=== PATIENT | female | born 1960 | race Caucasian/White ===

== ENCOUNTER 2017-06-09 14:44 | Inpatient (IN) | payer SELFPAY ==
[~2017-06-09] VITALS: Ht 160 cm; Wt 51.9 kg
[2017-06-09 15:01] VITALS: O2SAT 97
[2017-06-09 15:09] LABS: BASOPHIL % 0.2 % (0.0-2.0); EOSINOPHIL % 0.1 % (0.0-4.0); HEMATOCRIT 35.9 % (35.0-46.0); HEMO FLAGS DIFF FINAL; LYMPH % 2.6 % (9.0-44.0); LYMPHOCYTE # 0.5 TH/MM3 (1.0-4.8); MEAN CELL VOLUME 104.7 FL (80.0-100.0); MEAN CORPUSCULAR HEMOGLOBIN 34.8 PG (27.0-34.0); MEAN CORPUSCULAR HGB CONC 33.2 % (32.0-36.0); NEUT % 91.1 % (16.0-70.0); PLATELET COUNT 441 TH/MM3 (150-450); RED BLOOD COUNT 3.43 MIL/MM3 (4.00-5.30); RED CELL DISTRIBUTION WIDTH 14.4 % (11.6-17.2); WHITE BLOOD COUNT 17.5 TH/MM3 (4.0-11.0)
--- NOTE | 2017-06-09 15:13 | PD ---
Physical Exam Date Seen by Provider: Jun 09, 2017 Time Seen by Provider: 15:13 Data Data Last Documented VS Vital Signs Date Time Temp Pulse Resp B/P Pulse Ox O2 Delivery O2 Flow Rate FiO2 06/09/17 15:01 97 Nasal Cannula 3.00 Orders Ed Poc Ultrasound (06/09/17 ) I-Stat Profile (06/09/17 14:54) I-Stat Creatinine (06/09/17 14:54) Complete Blood Count With Diff (06/09/17 14:54) Prothrombin Time / Inr (Pt) (06/09/17 14:54) Act Partial Throm Time (Ptt) (06/09/17 14:54) Type And Screen (06/09/17 14:54) Chest, Single Ap (06/09/17 14:54) Pelvis, Ap Only (Routine) (06/09/17 14:54) Ct Brain W/O Iv Contrast(Rout) (06/09/17 14:54) Ct Cerv Spine W/O Contrast (06/09/17 14:54) Ct Facial Bones W/O Iv Cont (06/09/17 14:54) Iv Access Insert/Monitor (06/09/17 14:54) Ecg Monitoring (06/09/17 14:54) Oximetry (06/09/17 14:54) Oxygen Administration (06/09/17 14:54) Creatine Kinase (Cpk) (06/09/17 14:54) Trauma Office Use Only (06/09/17 15:02) Lidocai-Epi 1%-1:100,000 Inj (Xylocaine- (06/09/17 15:15) Admit Order (Ed Use Only) (06/09/17 15:12) Ct Abd/Pel W/O Iv Contrast (06/09/17 14:54) Ct Thorax/ Chest Wo Iv Contras (06/09/17 14:54) CKMB (06/09/17 14:47) CKMB% (06/09/17 14:47) Labs Laboratory Tests Test 06/09/17 14:47 White Blood Count 17.5 TH/MM3 Red Blood Count 3.43 MIL/MM3 Hemoglobin 11.9 GM/DL Bedside Hemoglobin 12.2 G/DL Hematocrit 35.9 % Bedside Hematocrit 36.0 % Mean Corpuscular Volume 104.7 FL Mean Corpuscular Hemoglobin 34.8 PG Mean Corpuscular Hemoglobin 33.2 % Concent Red Cell Distribution Width 14.4 % Platelet Count 441 TH/MM3 Mean Platelet Volume 7.6 FL Neutrophils (%) (Auto) 91.1 % Lymphocytes (%) (Auto) 2.6 % Monocytes (%) (Auto) 6.0 % Eosinophils (%) (Auto) 0.1 % Basophils (%) (Auto) 0.2 % Neutrophils # (Auto) 16.0 TH/MM3 Lymphocytes # (Auto) 0.5 TH/MM3 Monocytes # (Auto) 1.0 TH/MM3 Eosinophils # (Auto) 0.0 TH/MM3 Basophils # (Auto) 0.0 TH/MM3 CBC Comment DIFF FINAL Differential Comment Prothrombin Time 10.8 SEC Prothromb Time International 1.0 RATIO Ratio Activated Partial 22.8 SEC Thromboplast Time Bedside Sodium 138 MMOL/L Bedside Potassium 6.2 MMOL/L Bedside Chloride 105 MMOL/L Bedside Blood Urea Nitrogen 20 MG/DL Bedside Creatinine 1.9 MG/DL Bedside Glucose 164 MG/DL Total Creatine Kinase 1509 U/L Blood Type O POSITIVE Antibody Screen NEGATIVE MDM Supervised Visit with LEONEL: No Narrative Course I was asked to evaluate this patient's multiple lacerations. The patient was initially seen by Dr. Nava. Please see her note for full H& P. On my exam the patient has a 6 cm laceration in the midline of the forehead which travels to the bridge of the nose. There is a subcentimeter skin bridge and a second laceration approximately 4 cm long. There is a subcentimeter laceration on the left forehead, 2 cm laceration over left eyebrow, centimeter laceration on the chin. Additionally there is a V-shaped 7 cm laceration lateral aspect of the left ankle.. Laceration repair was performed. Please see my procedure note for details. Dr. Nava retains care of this patient. Please see her note for disposition. Procedures Procedure Narrative LACERATION LOCATION: Left forehead LENGTH: Subcentimeter NUMBER OF STITCHES/ASHLEY: 1 REPAIR: The area of the laceration was prepped with Betadine and sterilely draped. The laceration was infiltrated with 1% lidocaine. The wound was copiously irrigated and explored without evidence of foreign body, tendon injury or neurovascular injury. The wound was closed using 4-0 Prolene single. This was a - layer repair. A sterile dressing was applied. The patient was advised to keep the dressing clean and dry. Patient tolerated the procedure well. LACERATION LOCATION: Left eyebrow LENGTH: 2 cm NUMBER OF STITCHES/ASHLEY: 2 REPAIR: The area of the laceration was prepped with Betadine and sterilely draped. The laceration was infiltrated with 1% lidocaine. The wound was copiously irrigated and explored without evidence of foreign body, tendon injury or neurovascular injury. The wound was closed using 4-0 Prolene. This was a single layer repair. A sterile dressing was applied. The patient was advised to keep the dressing clean and dry. Patient tolerated the procedure well. LACERATION LOCATION: Midline of the forehead LENGTH: 6 cm NUMBER OF STITCHES/ASHLEY: 2 internal, 8 external REPAIR: The area of the laceration was prepped with Betadine and sterilely draped. The laceration was infiltrated with 1% lidocaine. The wound was copiously irrigated and explored without evidence of foreign body, tendon injury or neurovascular injury. The wound was closed using 3-0 Vicryl and 4-0 Prolene. This was a 2 layer repair. A sterile dressing was applied. The patient was advised to keep the dressing clean and dry. Patient tolerated the procedure well. LACERATION LOCATION: Midline bridge of the nose LENGTH: 6 cm, stellate NUMBER OF STITCHES/ASHLEY: 2 internal 9 external REPAIR: The area of the laceration was prepped with Betadine and sterilely draped. The laceration was infiltrated with 1% lidocaine with epinephrine. The wound was copiously irrigated and explored without evidence of foreign body, tendon injury or neurovascular injury. The wound was closed using 3-0 Vicryl and 4-0 Prolene. This was a 2 layer repair. A sterile dressing was applied. The patient was advised to keep the dressing clean and dry. Patient tolerated the procedure well. LACERATION LOCATION: Left lateral ankle LENGTH: 7 cm V-shaped NUMBER OF STITCHES/ASHLEY: 8 REPAIR: The area of the laceration was prepped with Betadine and sterilely draped. The laceration was infiltrated with 1% lidocaine. The wound was copiously irrigated and explored without evidence of foreign body, tendon injury or neurovascular injury. The wound was closed using surgical ashley. This was a single layer repair. A sterile dressing was applied. The patient was advised to keep the dressing clean and dry. Patient tolerated the procedure well. Erika Herbert Jun 09, 2017 15:13
[2017-06-09] MEDS ORDERED: LIDOCAINE 1%/EPINEPHrine 1:100,000 SOLN 20 ML VIAL INFIL ONE (15:15)
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
[2017-06-09] MEDS ORDERED: MORPHINE SULFATE 8 MG/ML INJ ONE (15:16)
[2017-06-09] MEDS ORDERED: ONDANSETRON HCL 4 MG/2 ML VIAL ONE (15:16)
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
[2017-06-09 15:26] LABS: I-STAT POTASSIUM 6.2 MMOL/L (3.5-4.9)
[2017-06-09 15:45] LABS: APTT (PATIENT) 22.8 SEC (24.3-30.1); PROTHROMBIN TIME - PATIENT 10.8 SEC (9.8-11.6)
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
[2017-06-09 16:00] VITALS: PULSE 103
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
[2017-06-09 16:11] LABS: CKMB 7.9 NG/ML (0.5-3.6)
[2017-06-09 16:15] VITALS: BP 175/111; PULSE 104; RESP 25; TEMP 99; O2SAT 98
[2017-06-09] MEDS ORDERED: Post-op Orders (for Pharmacy) MISC XX ONE (16:15)
[2017-06-09] MEDS ORDERED: NALOXONE HCL 0.4 MG/ML AMP IV PRN (16:15)
[2017-06-09] MEDS ORDERED: SODIUM CHLORIDE 0.9% FLUSH 10 ML FLUSH IV FLUSH PRN (16:15)
[2017-06-09] MEDS ORDERED: oxyCODONE/ACETAMINOPHEN 5 MG/325 MG TAB PO PRN (16:15)
[2017-06-09] MEDS ORDERED: ONDANSETRON HCL 4 MG/2 ML VIAL IV PRN (16:15)
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
[2017-06-09] MEDS: PANTOPRAZOLE SOD 40 MG DELAYED RELEASE TAB PO SCH (17:00)
[2017-06-09] MEDS: MORPHINE SULFATE 4 MG/ML INJ IV PRN (17:20)
[2017-06-09 18:00] VITALS: PULSE 99
[2017-06-09] MEDS: SODIUM CHLOR 0.9% 1000 ML INJ 1,000 ML IV SCH (18:12)
[2017-06-09] MEDS: METOPROLOL TARTRATE 5 MG/5 ML VIAL IV PUSH SCH (18:12)
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
[2017-06-09 20:00] VITALS: BP 149/90; PULSE 84; RESP 12; TEMP 99.3; O2SAT 98
[2017-06-09] MEDS: levETIRAcetam 500 MG TAB PO SCH (20:35)
[2017-06-09] MEDS: SODIUM CHLORIDE 0.9% FLUSH 10 ML FLUSH IV FLUSH SCH (20:36)
[2017-06-09] MEDS ORDERED: DOCUSATE SODIUM 100 MG CAP PO SCH (21:00)
[2017-06-09 22:00] VITALS: PULSE 75
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
[2017-06-10] VITALS (11 sets, daily range): BP systolic 118–184; BP diastolic 64–97; PULSE 66–81; RESP 9–22; TEMP 97–99.3; O2SAT 96–100
[2017-06-10] MEDS: METOPROLOL TARTRATE 5 MG/5 ML VIAL IV PUSH SCH ×2 (00:09→05:48)
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
[2017-06-10] MEDS: SODIUM CHLOR 0.9% 1000 ML INJ 1,000 ML IV SCH ×3 (04:39→20:01)
[2017-06-10 04:43] LABS: AUTOMATED NEUTROPHIL # 7.1 TH/MM3 (1.8-7.7); BASOPHIL # 0.1 TH/MM3 (0-0.2); BASOPHIL % 0.8 % (0.0-2.0); HEMATOCRIT 25.8 % (35.0-46.0); HEMO FLAGS DIFF FINAL; LYMPH % 7.8 % (9.0-44.0); LYMPHOCYTE # 0.7 TH/MM3 (1.0-4.8); MEAN CELL VOLUME 105.6 FL (80.0-100.0); MEAN CORPUSCULAR HEMOGLOBIN 36.5 PG (27.0-34.0); MEAN CORPUSCULAR HGB CONC 34.6 % (32.0-36.0); NEUT % 84.4 % (16.0-70.0); PLATELET COUNT 248 TH/MM3 (150-450); RED BLOOD COUNT 2.45 MIL/MM3 (4.00-5.30); RED CELL DISTRIBUTION WIDTH 13.9 % (11.6-17.2); WHITE BLOOD COUNT 8.4 TH/MM3 (4.0-11.0)
[2017-06-10] MEDS: MORPHINE SULFATE 4 MG/ML INJ IV PRN ×3 (04:49→14:36)
[2017-06-10 05:09] LABS: BICARBONATE 26.4 MEQ/L (21.0-32.0); POTASSIUM 4.7 MEQ/L (3.5-5.1)
[2017-06-10] MEDS ORDERED: BISACODYL 10 MG SUPP RECTAL PRN (07:00)
[2017-06-10] MEDS: levETIRAcetam 500 MG TAB PO SCH ×2 (08:47→22:03)
[2017-06-10] MEDS: METHOCARBAMOL 500 MG TAB PO SCH ×3 (08:47→22:02)
[2017-06-10] MEDS: DOCUSATE SODIUM 50 MG/SENNA 8.6 MG TAB PO SCH ×2 (08:48→22:02)
[2017-06-10] MEDS: MULTIVITAMIN INJ 10 ML, THIAMINE INJ 100 MG, FOLIC ACID INJ 1 MG in SODIUM CHLORID 0.9%... IV SCH (08:48)
[2017-06-10] MEDS: LIDOCAINE HCL 5% PATCH T-DERMAL SCH (08:48)
[2017-06-10 08:55] LABS: CKMB 4.4 NG/ML (0.5-3.6)
[2017-06-10] MEDS: LACTULOSE SYRUP 20 GM/30 ML CUP PO SCH (09:00)
[2017-06-10] MEDS: SODIUM CHLORIDE 0.9% FLUSH 10 ML FLUSH IV FLUSH SCH ×2 (09:00→21:00)
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
[2017-06-10] MEDS: LISINOPRIL 20 MG TAB PO SCH (10:28)
[2017-06-10] MEDS: METOPROLOL TARTRATE 25 MG TAB PO SCH ×2 (10:28→22:03)
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
[2017-06-10] MEDS: PANTOPRAZOLE SOD 40 MG DELAYED RELEASE TAB PO SCH (18:14)
--- NOTE | 2017-06-10 18:19 | RADRPT ---
EXAM DATE/TIME: 06/10/2017 17:43 [facility] COMPARISON: CT CERVICAL SPINE W/O CONTRAST, June 09, 2017, 14:56. INDICATIONS : Evaluate fractures. MEDICAL HISTORY : C6 endplate fracture, C4 spinous process fracture, subluxation of C1-2 SURGICAL HISTORY : unobtainable ENCOUNTER: Subsequent ACUITY: 1 day PAIN SCORE: Non-responsive. LOCATION: Bilateral C-spine FINDINGS: Flexion and extension views of the cervical spine were performed. There is maintenance of alignment of the vertebral bodies down to level of T1 in both flexion and extension. Bony fragment anterior in ferior to C6 similar to CT. The atlantoaxial distance is normal in both flexion and extension of the measuring less than [address] had demonstrated a spinous process fracture of C4; this is not discern ible on conventional radiographs. CONCLUSION: The alignment of the cervical spine is maintained in flexion and extension. Arun Regan MD on June 10, 2017 at 18:15 Board Certified Radiologist. This report was verified electronically.
[2017-06-10] MEDS: BACITRACIN TOP OINT 15 GM TUBE TOPICAL SCH (21:00)
[2017-06-11] VITALS (8 sets, daily range): BP systolic 116–191; BP diastolic 71–96; PULSE 62–88; RESP 16–18; TEMP 98.1–98.5; O2SAT 90–99
[2017-06-11] MEDS: METHOCARBAMOL 500 MG TAB PO SCH ×3 (06:29→21:12)
[2017-06-11] MEDS: SODIUM CHLOR 0.9% 1000 ML INJ 1,000 ML IV SCH ×3 (07:00→21:16)
[2017-06-11] MEDS: METOPROLOL TARTRATE 25 MG TAB PO SCH ×2 (09:00→21:11)
[2017-06-11] MEDS: DOCUSATE SODIUM 50 MG/SENNA 8.6 MG TAB PO SCH ×2 (09:00→21:11)
[2017-06-11] MEDS: LISINOPRIL 20 MG TAB PO SCH (09:00)
[2017-06-11] MEDS: LIDOCAINE HCL 5% PATCH T-DERMAL SCH (09:00)
[2017-06-11] MEDS: levETIRAcetam 500 MG TAB PO SCH ×2 (09:00→21:11)
[2017-06-11] MEDS: BACITRACIN TOP OINT 15 GM TUBE TOPICAL SCH ×2 (09:00→21:00)
[2017-06-11] MEDS: LACTULOSE SYRUP 20 GM/30 ML CUP PO SCH (09:00)
[2017-06-11] MEDS: SODIUM CHLORIDE 0.9% FLUSH 10 ML FLUSH IV FLUSH SCH ×2 (09:48→21:00)
[2017-06-11] MEDS: MULTIVITAMIN INJ 10 ML, THIAMINE INJ 100 MG, FOLIC ACID INJ 1 MG in SODIUM CHLORID 0.9%... IV SCH (10:32)
[2017-06-11] MEDS ORDERED: ceFAZolin 2 GM PREMIX 50 ML IV SCH (12:00)
[2017-06-11] MEDS ORDERED: VANCOMYCIN INJ 1,000 MG in SODIUM CHLOR 0.9% 250 ML INJ 250 ML IV SCH (12:00)
[2017-06-11] MEDS ORDERED: NEOSTIGMINE 3 MG/3 ML SYR IV ONE (12:00)
[2017-06-11] MEDS ORDERED: PROPOFOL 200 MG/20 ML AMP IV ONE (12:00)
[2017-06-11] MEDS ORDERED: LACTATED RINGER'S 1000 ML INJ 1,000 ML IV ONE (12:00)
[2017-06-11] MEDS ORDERED: SODIUM CHLORID 0.9% 500 ML INJ 500 ML IV ONE (12:00)
[2017-06-11] MEDS ORDERED: ONDANSETRON HCL 4 MG/2 ML VIAL IV PUSH ONE (12:00)
--- NOTE | 2017-06-11 12:20 | HHI.PR ---
Subjective Subjective Notes NPO for cervical fusion today with Dr Phillips No complaints Objective Vitals/I&O Vital Signs Date Time Temp Pulse Resp B/P Pulse Ox O2 Delivery O2 Flow Rate FiO2 06/11/17 08:06 98 Nasal Cannula 3.00 06/11/17 08:00 98.4 81 16 169/91 Labs Laboratory Tests Test 06/09/17 06/09/17 06/10/17 14:47 16:30 04:01 Bedside Hemoglobin 12.2 G/DL Bedside Hematocrit 36.0 % Prothrombin Time 10.8 SEC Prothromb Time International 1.0 RATIO Ratio Activated Partial 22.8 SEC Thromboplast Time Bedside Sodium 138 MMOL/L Bedside Potassium 6.2 MMOL/L Bedside Chloride 105 MMOL/L Bedside Blood Urea Nitrogen 20 MG/DL Bedside Creatinine 1.9 MG/DL Bedside Glucose 164 MG/DL Blood Type O POSITIVE Antibody Screen NEGATIVE Nasal Screen MRSA (PCR) MRSA NOT DETECTED White Blood Count 8.4 TH/MM3 Red Blood Count 2.45 MIL/MM3 Hemoglobin 8.9 GM/DL Hematocrit 25.8 % Mean Corpuscular Volume 105.6 FL Mean Corpuscular Hemoglobin 36.5 PG Mean Corpuscular Hemoglobin 34.6 % Concent Red Cell Distribution Width 13.9 % Platelet Count 248 TH/MM3 Mean Platelet Volume 7.7 FL Neutrophils (%) (Auto) 84.4 % Lymphocytes (%) (Auto) 7.8 % Monocytes (%) (Auto) 7.0 % Eosinophils (%) (Auto) 0.0 % Basophils (%) (Auto) 0.8 % Neutrophils # (Auto) 7.1 TH/MM3 Lymphocytes # (Auto) 0.7 TH/MM3 Monocytes # (Auto) 0.6 TH/MM3 Eosinophils # (Auto) 0.0 TH/MM3 Basophils # (Auto) 0.1 TH/MM3 CBC Comment DIFF FINAL Differential Comment Sodium Level 144 MEQ/L Potassium Level 4.7 MEQ/L Chloride Level 110 MEQ/L Carbon Dioxide Level 26.4 MEQ/L Anion Gap 8 MEQ/L Blood Urea Nitrogen 27 MG/DL Creatinine 1.61 MG/DL Estimat Glomerular Filtration 28 ML/MIN Rate Random Glucose 131 MG/DL Calcium Level 7.7 MG/DL Total Creatine Kinase 910 U/L Creatine Kinase MB 4.4 NG/ML Creatine Kinase MB % 0.5 % Radiology Last Impressions Chest X-Ray 06/10/17 0600 Signed Impressions: Service Date/Time: June 02:13 - CONCLUSION: No acute disease. Yusuf Khan MD Cervical Spine X-Ray 06/10/17 0000 Signed Impressions: Service Date/Time: June 17:43 - CONCLUSION: The alignment of the cervical spine is maintained in flexion and extension. Arun Regan MD Pelvis X-Ray 06/09/171453 Signed Impressions: Service Date/Time: Friday, June 09, 2017 14:37 - CONCLUSION: 1. Right-sided pubic rami fractures, as above. Lj Cunningham MD Maxillofacial CT 06/09/171453 Signed Impressions: Service Date/Time: Friday, June 09, 2017 14:56 - CONCLUSION: 1. Acute nasal bone fractures bilaterally. 2. Soft tissue defect involving the forehead with tiny radiopaque densities associated with this. 3. Left periorbital soft tissue swelling. Arun Ramirez Jr., MD Head CT 06/09/171453 Signed Impressions: Service Date/Time: Friday, June 09, 2017 14:54 - CONCLUSION: Bifrontal parenchymal hemorrhage small parafalcine subdural with minimal localized mass effect. Trace intraventricular blood. Vimal Taylor MD FACR Chest CT 06/09/171453 Signed Impressions: Service Date/Time: Friday, June 09, 2017 15:03 - CONCLUSION: 1. Right sixth rib fracture. 2. Questionable L1 left transverse process fracture. 3. Cardiomegaly. Arun Ramirez Jr., MD Cervical Spine CT 06/09/17 145 Signed Impressions: Service Date/Time: Friday, June 09, 2017 14:56 - CONCLUSION: 1. Acute fracture of C6 inferior endplate with exaggerated lordosis consistent with hyper extension injury. 2. Fracture involving the spinous process of C4. 3. Subluxation of C1-C2. 4. I spoke with concerning the findings. Arun Ramirez Jr., MD Abdomen/Pelvis CT 06/09/[id number] Signed Impressions: Service Date/Time: Friday, June 09, 2017 14:59 - CONCLUSION: Nondisplaced ramus fracture on the right otherwise negative for acute traumatic injury.. Lack of intravenous contrast does make detection of subtle organ injury difficult. Vimal Taylor MD FACR Cervical Spine MRI 06/09/17 0000 Signed Impressions: Service Date/Time: Friday, June 09, 2017 17:28 - CONCLUSION: 1. Soft tissue swelling anterior to the lower cervical spine related to a small fracture of the anterior-inferior endplate of C6. There is also some T2 prolongation within the C6-C7 disc, possibly representing hemorrhage. 2. Left paracentral bulging of the C3-4 disc and mild central protrusion of the C5-6 disc, without significant deformity of the thecal sac at either these levels. No cerebral abnormality seen within the cervical cord. 3. Mild increased C1-2 distance, but no signal abnormalities in the osseous structures or surrounding soft tissues. 4. Soft tissue edema about the spinous process fracture C4. Arun Regan MD ADDENDUM: Comparing the MRI study to the flexion-extension films the increased signal in the C6-C7 disc as well as the teardrop fracture would suggest tear of the anterior longitudinal ligament. This patient would be at risk for significant delayed instability. Findings discussed with Dr. nunn on today's date. Vimal Taylor MD FACR Narrative Exam GENERAL: 57-year-old disheveled female lying in bed with [place] J collar on. SKIN: Warm and dry. Periorbital edema. Left frontal sutures well approximated. Multiple abrasions noted to face. HEAD: Normocephalic. ENT: No nasal bleeding or discharge. Mucous membranes pink and moist. NECK: Trachea midline. No JVD. [place] J collar in place. CARDIOVASCULAR: Regular rate and rhythm. RESPIRATORY: No accessory muscle use. Lungs clear and diminished to auscultation. Breath sounds equal bilaterally. GASTROINTESTINAL: Abdomen soft, non-tender, nondistended. + BS. MUSCULOSKELETAL: Extremities without cyanosis, or edema. MAEW. NEUROLOGICAL: Awake and alert. Normal speech. A/P Assessment and Plan INJURIES: Facial lac (sutures) Bifrontal IPH SDH IVH Nasal fx C6 fx C1-C2 subluxation C4 transverse process fx RIGHT rib fx (6) L1 transverse process fx RIGHT pubic rami fx (non-op) PMHx: ETOH Diet: NPO per moshe-- ST cognitive Pulm: IS Pain: Percocet 1 tab, Morphine 2q2, Robaxin, Lidoderm patch Activity: OOB. PT and OT ordered. ("limited" WB RLE) GI: PO Protonix Bowel: Ciara-colace, Lactulose. LBM 0 DVT: SCDs Facial lac (sutures) Supportive care Sutures remain in place for 4-5 days Cleanse daily with soap and water, leave open to air Bifrontal IPH, SDH, C6 fx, C1-C2 subluxation, C4 transverse process fx Neurosurgery consulted Serial neuro checks Maintain [place] J Cervical flex/extension x-rays Plan for OR today for cervical fusion PO Keppra for seizure prophylaxis Neuropsychology consulted STcognitive eval Nasal fx Supportive care Follow-up with OMFS as outpatient RIGHT rib fx, L1 transverse process fx Supportive care Pain control Pulmonary toileting OOBPT RIGHT pubic rami fx Orthopedics consulted Nonoperative management Pain control Limited weightbearing RLE OOBPT HTN Lisinopril 20mg QD Lopressor 25 BID BP better controlled today ETOH abuse MVI bag Supportive care Monitor for DTs Plan of care discussed with patient at bedside. Case management consulted to assist discharge planning. Remarks seen and examined with LAUNDRY AIDE-agree with assessment and plan OR with NS today to stabilize neck Chloé Dalal Jun 11, 2017 12:20 Pamela Lino MD Jun 11, 2017 17:22
[2017-06-11 12:30] LABS: AUTOMATED NEUTROPHIL # 5.7 TH/MM3 (1.8-7.7); BASOPHIL % 0.5 % (0.0-2.0); EOSINOPHIL # 0.1 TH/MM3 (0-0.4); HEMATOCRIT 24.2 % (35.0-46.0); HEMO FLAGS DIFF FINAL; LYMPH % 19.5 % (9.0-44.0); LYMPHOCYTE # 1.5 TH/MM3 (1.0-4.8); MEAN CELL VOLUME 107.4 FL (80.0-100.0); MEAN CORPUSCULAR HEMOGLOBIN 36.5 PG (27.0-34.0); MONO % 7.3 % (0.0-8.0); NEUT % 71.7 % (16.0-70.0); PLATELET COUNT 217 TH/MM3 (150-450); RED BLOOD COUNT 2.25 MIL/MM3 (4.00-5.30); RED CELL DISTRIBUTION WIDTH 14.4 % (11.6-17.2); WHITE BLOOD COUNT 7.9 TH/MM3 (4.0-11.0)
--- NOTE | 2017-06-11 12:36 | HHI.NSPN ---
(Leanne Lopez) Note Status Status: Progress Note (Leanne Lopez) Interval History Interval History 06/11: flex/ex xrays shows widening of C6-7 disc space during extension. c/o cervical pain with movement, she denies radiating pain or paresthesias to her extremities. (Leanne Lopez) Labs, Micro, & Vital Signs Results Date Time Temp Pulse Resp B/P Pulse Ox O2 Delivery O2 Flow Rate FiO2 06/11/17 08:06 98 Nasal Cannula 3.00 06/11/17 08:00 98.4 81 16 169/91 99 06/11/17 04:00 98.1 76 18 151/83 93 06/11/17 00:00 98.5 62 18 116/71 90 06/10/17 20:00 97.0 81 16 132/74 99 06/10/17 19:20 Nasal Cannula 2.00 06/10/17 18:00 80 06/10/17 16:00 80 06/10/17 16:00 98.8 77 10 118/64 100 06/10/17 14:00 81 06/11/17 07:00 Intake Total 1575 ml Output Total 300 ml Balance 1275 ml Constitutional Vital Signs Date Time Temp Pulse Resp B/P Pulse Ox O2 Delivery O2 Flow Rate FiO2 06/11/17 08:06 98 Nasal Cannula 3.00 06/11/17 08:00 98.4 81 16 169/91 99 06/11/17 04:00 98.1 76 18 151/83 93 06/11/17 00:00 98.5 62 18 116/71 90 06/10/17 20:00 97.0 81 16 132/74 99 06/10/17 19:20 Nasal Cannula 2.00 06/10/17 18:00 80 06/10/17 16:00 80 06/10/17 16:00 98.8 77 10 118/64 100 06/10/17 14:00 81 06/11/17 07:00 Intake Total 1575 ml Output Total 300 ml Balance 1275 ml (Leanne Lopez) Review of Systems/Exam Exam Patient alert, awake and oriented to time, place and person. Speech is appropriate. Neck: pain illicit during ROM exam Cranial nerve examination demonstrates the pupils to be equal, round, and reactive to light. Extra-ocular movements are intact. Facial motor are normal and symmetrical. Extensive facial abrasions, large forehead and midfacial lac that has been repaired Muscle strength is 5/5 in all muscle groups of both upper and lower extremities Sensory examination is intact to light touch in both the upper and lower extremities, symmetrically. There is a bilateral plantar flexion response. Hoffmanns sign is negative. (Leanne Lopez) Exam She is alert, awake, GCS 15. large frontal laceration, repaired Cranial nerve examination demonstrates the pupils to be equal, round, and reactive to light. Extra-ocular movements are intact with normal convergence. Facial motor function appears normal and symmetrical. Face sensation, hearing, visual blancas, and olfaction can not be assessed properly due to the patients condition. The patient has an intact corneal reflex and a gag reflex. Sternocleidomastoid and trapezius have normal and symmetrical strength. Other cranial nerves are intact. Cervical spine immobilized with a Murtaugh J collar Muscle testing reveals normal bulk and tone overall without rigidity, spasticity , fasciculations, or atrophy. Muscle strength is 5/5 in all muscle groups of both upper and lower extremities. Deep tendon reflexes are 1+ and symmetrical in the biceps, triceps, and brachioradialis, bilaterally, in the upper extremities. In the lower extremities , the patellar and Achilles are 1+, bilaterally. There is a bilateral plantar flexion response. Hoffmanns sign is negative. There is no clonus or other abnormal reflexes noted. Cerebellar examination is limited due to the patient condition, but no obvious deficits are noted. Ms Wang is alert, awake, GCS 15. large frontal laceration, repaired Cranial nerve examination demonstrates the pupils to be equal, round, and reactive to light. Extra-ocular movements are intact with normal convergence. Facial motor function appears normal and symmetrical. Face sensation, hearing, visual blancas, and olfaction can not be assessed properly due to the patients condition. The patient has an intact corneal reflex and a gag reflex. Sternocleidomastoid and trapezius have normal and symmetrical strength. Other cranial nerves are intact. Cervical spine immobilized with a Murtaugh J collar. Severe neck spasms and decreased motion Muscle testing reveals normal bulk and tone overall without rigidity, spasticity , fasciculations, or atrophy. Muscle strength is 5/5 in all muscle groups of both upper and lower extremities. Deep tendon reflexes are 1+ and symmetrical in the biceps, triceps, and brachioradialis, bilaterally, in the upper extremities. In the lower extremities , the patellar and Achilles are 1+, bilaterally. There is a bilateral plantar flexion response. Hoffmanns sign is negative. There is no clonus Cerebellar examination is limited due to the patient condition, no obvious deficits noted. (Bk Phillips MD) Medications Current Medications Current Medications Medications (Trade) Dose Ordered Sig/Geoffrey Route PRN Reason Start Time Stop Time Status Last Admin Dose Admin Sodium Chloride (NS Flush) 2 ml UNSCH PRN IV FLUSH FLUSH AFTER USING IV ACCESS 06/09/17 16:15 Sodium Chloride (NS Flush) 2 ml BID IV FLUSH 06/09/17 21:00 06/10/17 09:00 Ondansetron HCl (Zofran Inj) 4 mg Q6H PRN IV NAUSEA OR VOMITING 06/09/17 16:15 Pantoprazole Sodium (Protonix) 40 mg Q24H PO 06/09/17 17:00 06/10/17 18:14 Oxycodone/ Acetaminophen (Percocet 5-325 Mg) 1 tab Q4H PRN PO PAIN SCALE 3 TO 5 06/09/17 16:15 06/10/17 22:03 Morphine Sulfate (Morphine Inj) 2 mg Q2H PRN IV PAIN 6-10 06/09/17 16:15 06/10/17 14:36 Naloxone HCl (Narcan Inj) 0.4 mg UNSCH PRN IV SEE LABEL COMMENTS 06/09/17 16:15 Levetriacetam 500 mg 500 mg Q12HR PO 06/09/17 21:00 06/10/17 22:03 Multivitamins/ Thiamine HCl/ Folic Acid/Sodium Chloride (Mvi-12 Inj/ Thiamine Inj/ Folvite Inj/NS 500 ml Inj) 511.2 ml @ 125 mls/hr DAILY IV 06/10/17 09:00 06/12/17 13:06 06/11/17 10:32 Methocarbamol (Robaxin) 500 mg Q8HR PO 06/10/17 08:00 06/11/17 06:29 Lidocaine HCl (Lidoderm 5% Patch.12 Hr) 1 patch DAILY T-DERMAL 06/10/17 09:00 06/10/17 08:48 Senna/Docusate Sodium (Ciara-Colace) 1 tab BID PO 06/10/17 09:00 06/10/17 22:02 Lactulose (Lactulose Liq) 30 ml DAILY PO 06/10/17 09:00 Bisacodyl (Dulcolax Supp) 10 mg DAILY PRN RECTAL Constipation 06/10/17 07:00 Enalaprilat (Vasotec Inj) 1.25 mg Q6H PRN IV PUSH SBP>180, DBP>100, HR>65 06/10/17 07:00 Lisinopril (Prinivil) 20 mg DAILY PO 06/10/17 10:00 06/10/17 10:28 Bacitracin (Baciguent Oint) 1 applic Q12HR TOPICAL 06/10/17 10:00 Metoprolol Tartrate 25 mg 25 mg Q12HR PO 06/10/17 10:00 06/10/17 22:03 Sodium Chloride (NS 1000 ml Inj) 1,000 ml @ 100 mls/hr Q10H IV 06/11/17 11:57 (Leanne Lopez) Current Medications Current Medications Lidocaine/ Epinephrine (Xylocaine-Epi 1%-1:100,000 Inj) 30 ml ONCE ONCE INFIL ; Start 06/09/17 at 15:15; Stop 06/09/17 at 15:16; Status DC Morphine Sulfate (Morphine Inj) 8 mg STK-MED ONCE .ROUTE ; Start 06/09/17 at 15: 16; Stop 06/09/17 at 15:17; Status DC Ondansetron HCl 4 mg 4 mg STK-MED ONCE .ROUTE ; Start 06/09/17 at 15:16; Stop 06/09/17 at 15:17; Status DC Sodium Chloride (NS 1000 ml Inj) 1,000 ml @ 100 mls/hr Q10H IV Last administered on 06/11/17t 07:00; Start 06/09/17 at 16:10; Stop 06/11/17 at 12:04; Status DC Sodium Chloride (NS Flush) 2 ml UNSCH PRN IV FLUSH FLUSH AFTER USING IV ACCESS ; Start 06/09/17 at 16:15 Sodium Chloride (NS Flush) 2 ml BID IV FLUSH Last administered on 06/10/17 09: 00; Start 06/09/17 at 21:00 Ondansetron HCl (Zofran Inj) 4 mg Q6H PRN IV NAUSEA OR VOMITING; Start 06/09/17 at 16:15 Pantoprazole Sodium (Protonix) 40 mg Q24H PO Last administered on 06/10/17 18: 14; Start 06/09/17 at 17:00 Docusate Sodium 100 mg 100 mg BID PO Last administered on 06/09/17 20:35; Start 06/09/17 at 21:00; Stop 06/10/17 at 07:13; Status DC Cefazolin Sodium/ Sodium Chloride (Ancef Inj/NS Inj) 100 ml @ 200 mls/hr Q8H IV Last administered on 06/10/17 08:47; Start 06/09/17 at 17:00; Stop 06/10/17 at 09:29; Status DC Miscellaneous Information (Post-op Orders (for Pharmacy)) STAT ONCE XX ; Start 06/09/17 at 16:15; Stop 06/09/17 at 17:14; Status DC Oxycodone/ Acetaminophen (Percocet 5-325 Mg) 1 tab Q4H PRN PO PAIN SCALE 3 TO 5 Last administered on 06/10/17 22:03; Start 06/09/17 at 16:15; Stop 06/11/17 at 15:25; Status DC Morphine Sulfate (Morphine Inj) 2 mg Q2H PRN IV PAIN 6-10 Last administered on 06/12/17 05:42; Start 06/09/17 at 16:15 Naloxone HCl (Narcan Inj) 0.4 mg UNSCH PRN IV SEE LABEL COMMENTS; Start at 16:15 Levetriacetam (Keppra) 500 mg Q12HR PO Last administered on 06/12/17 10:51; Start 06/09/17 at 21:00 Metoprolol Tartrate 5 mg 5 mg Q6H IV PUSH Last administered on 06/10/17 05:48; Start 06/09/17 at 18:00; Stop 06/10/17 at 09:52; Status DC Multivitamins/ Thiamine HCl/ Folic Acid/Sodium Chloride (Mvi-12 Inj/ Thiamine Inj/ Folvite Inj/NS 500 ml Inj) 511.2 ml @ 125 mls/hr DAILY IV Last administered on 06/12/17 13:25; Start 06/10/17 at 09:00; Stop 06/12/17 at 13:06; Status DC Methocarbamol (Robaxin) 500 mg Q8HR PO Last administered on 06/12/17 06:44; Start 06/10/17 at 08:00 Lidocaine HCl (Lidoderm 5% Patch.12 Hr) 1 patch DAILY T-DERMAL Last administered on 06/10/17 08:48; Start 06/10/17 at 09:00 Senna/Docusate Sodium (Ciara-Colace) 1 tab BID PO Last administered on 06/12/17 10:51; Start 06/10/17 at 09:00 Lactulose (Lactulose Liq) 30 ml DAILY PO Last administered on 06/12/17 10:52; Start 06/10/17 at 09:00 Bisacodyl (Dulcolax Supp) 10 mg DAILY PRN RECTAL Constipation; Start 06/10/17 at 07:00 Enalaprilat (Vasotec Inj) 1.25 mg Q6H PRN IV PUSH SBP>180, DBP>100, HR>65; Start 06/10/17 at 07:00 Lisinopril (Prinivil) 20 mg DAILY PO Last administered on 06/12/17 10:51; Start 06/10/17 at 10:00 Bacitracin (Baciguent Oint) 1 applic Q12HR TOPICAL Last administered on 10:50; Start 06/10/17 at 10:00 Metoprolol Tartrate 25 mg 25 mg Q12HR PO Last administered on 06/12/17 10:51; Start 06/10/17 at 10:00 Sodium Chloride 1,000 ml @ 100 mls/hr Q10H IV Last administered on 06/12/17 10 :48; Start 06/11/17 at 11:57; Stop 06/12/17 at 11:46; Status DC Cefazolin Sodium/ Dextrose 50 ml @ 100 mls/hr BI TECHNICAL LEAD IV Last administered on 06/11/17 15:01; Start 06/11/17 at 12:00; Stop 06/15/17 at 11:59 Vancomycin HCl/ Sodium Chloride (Vancomycin Inj/ NS 250 ml Inj) 250 ml @ 250 mls/hr BI TECHNICAL LEAD IV ; Start 06/11/17 at 12:00; Stop 06/15/17 at 11:59 Vancomycin HCl (Vancomycin Inj) 1,000 mg STK-MED ONCE .ROUTE Last administered on 06/11/17 15:01; Start 06/11/17 at 12:58; Stop 06/11/17 at 12:59; Status DC Microfibriller Collagen Hemostat (Avitene Bandage) 1 bandage STK-MED ONCE .ROUTE Last administered on 06/11/17 15:18; Start 06/11/17 at 12:58; Stop at 12:59; Status DC Thrombin (Thrombin Top Soln) 10,000 units STK-MED ONCE .ROUTE Last administered on 06/11/17 15:18; Start 06/11/17 at 12:58; Stop 06/11/17 at 12:59; Status DC Gelatin (Gelfoam 100 Top) 1 foam STK-MED ONCE .ROUTE Last administered on 15:18; Start 06/11/17 at 12:58; Stop 06/11/17 at 12:59; Status DC Gentamicin Sulfate (Gentamicin Inj) 240 mg STK-MED ONCE .ROUTE Last administered on 06/11/17 15:18; Start 06/11/17 at 12:58; Stop 06/11/17 at 12:59; Status DC Fentanyl Citrate (fentaNYL INJ) 250 mcg STK-MED ONCE .ROUTE ; Start 06/11/17 at 15:12; Stop 06/11/17 at 15:13; Status DC Fentanyl Citrate (fentaNYL INJ) 250 mcg STK-MED ONCE .ROUTE ; Start 06/11/17 at 15:12; Stop 06/11/17 at 15:13; Status DC Midazolam HCl (Versed Inj) 2 mg STK-MED ONCE .ROUTE ; Start 06/11/17 at 15:16; Stop 06/11/17 at 15:17; Status DC Fentanyl Citrate (fentaNYL INJ) 250 mcg STK-MED ONCE .ROUTE ; Start 06/11/17 at 15:16; Stop 06/11/17 at 15:17; Status DC IV Flush (NS Flush) 2 ml UNSCH PRN IVF FLUSH AFTER USING IV ACCESS; Start at 15:30; Status UNV IV Flush 2 ml 2 ml BID IVF ; Start 06/11/17 at 21:00; Status UNV Cefazolin Sodium/ Dextrose (Ancef 2 Gm Premix) 50 ml @ 100 mls/hr Q8H IV Last administered on 06/12/17 10:47; Start 06/11/17 at 23:00; Stop 06/12/17 at 15:29 Dexamethasone Sodium Phosphate (Decadron Inj) 4 mg Q6H IV Last administered on 06/12/17 11:00; Start 06/11/17 at 17:00 Acetaminophen (Tylenol) 650 mg Q4H PRN PO TEMPERATURE > 101.5 F; Start 06/11/17 at 15:30 Menthol ([place] Ashley) 1 lozenge UNSCH PRN BUCCAL SORE THROAT; Start 06/11/17 at 15 :30 Oxycodone/ Acetaminophen (Percocet 10-325 Mg) 1 tab Q4H PRN PO PAIN SCALE 1 TO 5; Start 06/11/17 at 15:30 Oxycodone/ Acetaminophen (Percocet 10-325 Mg) 2 tab Q4H PRN PO PAIN SCALE 6 TO 10 Last administered on 06/12/17 10:26; Start 06/11/17 at 15:30 Morphine Sulfate (Morphine Inj) 2 mg Q2HR PRN IV PUSH breakthrough pain; Start 06/11/17 at 15:30 Morphine Sulfate (*morphine INJ PERIprocedure ONLY) 8 mg STK-MED ONCE .ROUTE Last administered on 06/11/17 17:08; Start 06/11/17 at 17:08; Stop 06/11/17 at 17: 09; Status DC Ondansetron HCl (*ZOFRAN INJ PERIprocedural ONLY) 4 mg STK-MED ONCE .ROUTE Last administered on 06/11/17 17:08; Start 06/11/17 at 17:08; Stop 06/11/17 at 17: 09; Status DC Labetalol HCl (*TRANDATE INJ PERIprocedural Use ONLY) 100 mg STK-MED ONCE .ROUTE ; Start 06/11/17 at 17:37; Stop 06/11/17 at 17:38; Status DC Miscellaneous Information ALL NURSING DEPARTME... UNSCH PRN .XX SEE LABEL COMMENTS; Start 06/11/17 at 18:15; Stop 06/12/17 at 18:14 Enoxaparin Sodium (Lovenox Inj) 30 mg Q12H SQ Last administered on 06/12/17t 13: 32; Start 06/12/17 at 12:00 (Bk Phillips MD) Medical Decision Making MDM Remarks adult female with traumatic C6-7 ligamentous injury, unstable on flex/ex xrays (Leanne Lopez) MDM Remarks Last Impressions Cervical Spine X-Ray 06/11/17 0000 Signed Impressions: Service Date/Time: Sunday, June 11, 2017 15:19 - CONCLUSION: Anatomic alignment. Vimal Taylor MD FACR Chest X-Ray 06/10/17 0600 Signed Impressions: Service Date/Time: June 02:13 - CONCLUSION: No acute disease. Yusuf Khan MD Pelvis X-Ray [id number] Signed Impressions: Service Date/Time: Friday, June 09, 2017 14:37 - CONCLUSION: 1. Right-sided pubic rami fractures, as above. Lj Cunningham MD Maxillofacial CT [id number] Signed Impressions: Service Date/Time: Friday, June 09, 2017 14:56 - CONCLUSION: 1. Acute nasal bone fractures bilaterally. 2. Soft tissue defect involving the forehead with tiny radiopaque densities associated with this. 3. Left periorbital soft tissue swelling. Arun Ramirez Jr., MD Head CT [id number] Signed Impressions: Service Date/Time: Friday, June 09, 2017 14:54 - CONCLUSION: Bifrontal parenchymal hemorrhage small parafalcine subdural with minimal localized mass effect. Trace intraventricular blood. Vimal Taylor MD FACR Chest CT [id number] Signed Impressions: Service Date/Time: Friday, June 09, 2017 15:03 - CONCLUSION: 1. Right sixth rib fracture. 2. Questionable L1 left transverse process fracture. 3. Cardiomegaly. Arun Ramirez Jr., MD Cervical Spine CT 06/09/17 536 Signed Impressions: Service Date/Time: Friday, June 09, 2017 14:56 - CONCLUSION: 1. Acute fracture of C6 inferior endplate with exaggerated lordosis consistent with hyper extension injury. 2. Fracture involving the spinous process of C4. 3. Subluxation of C1-C2. 4. I spoke with concerning the findings. Aurn Ramirez Jr., MD Abdomen/Pelvis CT 06/09/17 1454 Signed Impressions: Service Date/Time: Friday, June 09, 2017 14:59 - CONCLUSION: Nondisplaced ramus fracture on the right otherwise negative for acute traumatic injury.. Lack of intravenous contrast does make detection of subtle organ injury difficult. Vimal Taylor MD FACR Cervical Spine MRI 06/09/17 0000 Signed Impressions: Service Date/Time: Friday, June 09, 2017 17:28 - CONCLUSION: 1. Soft tissue swelling anterior to the lower cervical spine related to a small fracture of the anterior-inferior endplate of C6. There is also some T2 prolongation within the C6-C7 disc, possibly representing hemorrhage. 2. Left paracentral bulging of the C3-4 disc and mild central protrusion of the C5-6 disc, without significant deformity of the thecal sac at either these levels. No cerebral abnormality seen within the cervical cord. 3. Mild increased C1-2 distance, but no signal abnormalities in the osseous structures or surrounding soft tissues. 4. Soft tissue edema about the spinous process fracture C4. Arun Regan MD ADDENDUM: Comparing the MRI study to the flexion-extension films the increased signal in the C6-C7 disc as well as the teardrop fracture would suggest tear of the anterior longitudinal ligament. This patient would be at risk for significant delayed instability. Findings discussed with Dr. nunn on today's date. Vimal Taylor MD FACR (Bk Phillips MD) Plan Plan Remarks to OR today for C6-7 anterior cervical discectomy and interbody arthrodesis with fusion, NPO now, SCDs and TEDs for DVT prophylaxis Dr. Phillips dw patient, (Leanne Lopez) Attending Statement Neuro. bilateral subdural and parenchymal frontal hemorrhage. Continue neuro checks in a serial fashion. 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 flexion-extension x-rays shows what they mean noted the space at C6 7, with mechanical instability. I reviewed the radiologic studies with Dr. Taylor. There is disk disruption and instability at C6-7. I recommend anterior cervical arthrodesis C6 with interbody cage and instrumented fixation using plate and screws. We have discussed the details including the [id number] details of the surgical procedure, its indications, alternatives, risks, and potential complications. Risks and potential complications include, but are not limited to, infection, blood loss, CSF leak, partial or complete loss of sight in one or both eyes, paresis, paralysis, permanent pain or difficulty swallowing, loss of bowel or bladder function, complications from anesthesia, blood clot, stroke, myocardial infarction, or even . Pelvic anterior and ischial ramus frature. Defer to orthopedics Pulmonary. Continue aggressive pulmonary toilette, nasotracheal suction, and breathing treatments with nebulizers. Daily PT and OT Nutrition. Oral diet Renal. Continue to monitor closely urine output, BUN and creatinine Extensive craniofacial laceration. Repaired in the emergency room. Wound care with bacitracin Endocrine. Continue to Monitor serial Acu checks and SSI as needed ID continue to monitor for signs of infection Continue Protonix for stress ulcer prophylaxis Continue Luis hose and SCD's for DVT prophylaxis The exam, history, and the medical decision-making described in the above note were completed with the assistance of the mid-level provider. I reviewed and agree with the findings presented. I attest that I had a [id number] encounter with the patient on the same day, and personally performed and documented my assessment and findings in the medical record. (Bk Phillips MD) Leanne Lopez Jun 11, 2017 12:36 Bk Phillips MD Jun 11, 2017 17:23
[2017-06-11] MEDS ORDERED: THROMBIN (TOPICAL) 5,000 UNIT VIAL ONE (12:58)
[2017-06-11] MEDS ORDERED: MICROFIBRILLAR COLLAGEN HEMOSTAT 70 X 35 MM BANDAGE ONE (12:58)
[2017-06-11] MEDS ORDERED: GENTAMICIN SULFATE 80 MG/2 ML VIAL ONE (12:58)
[2017-06-11] MEDS ORDERED: VANCOMYCIN HCL 1000 MG VIAL ONE (12:58)
[2017-06-11] MEDS ORDERED: GELFOAM SIZE 100 ONE (12:58)
[2017-06-11 13:02] LABS: ALKALINE PHOSPHATASE 67 U/L (45-117); ALT (GPT) 43 U/L (10-53); ANION GAP 8 MEQ/L (5-15); AST (GOT) 82 U/L (15-37); BICARBONATE 24.1 MEQ/L (21.0-32.0); BLOOD UREA NITROGEN 15 MG/DL (7-18); CHLORIDE 107 MEQ/L (98-107); GLOMERULAR FILTRATION RATE 86 ML/MIN (>89); POTASSIUM 4.1 MEQ/L (3.5-5.1); SODIUM (NA) 139 MEQ/L (136-145); TOTAL BILIRUBIN ADULT 0.6 MG/DL (0.2-1.0)
[2017-06-11] MEDS ORDERED: fentaNYL CITRATE 250 MCG/5 ML AMP ONE ×3 (15:12→15:16)
[2017-06-11] MEDS ORDERED: MIDAZOLAM HCL 2 MG/2 ML VIAL ONE (15:16)
[2017-06-11] MEDS ORDERED: MENTHOL LOZENGE BUCCAL PRN (15:30)
[2017-06-11] MEDS ORDERED: MORPHINE SULFATE 4 MG/ML INJ IV PUSH PRN (15:30)
[2017-06-11] MEDS ORDERED: ACETAMINOPHEN 325 MG TAB PO PRN (15:30)
[2017-06-11] MEDS ORDERED: SODIUM CHLORIDE 0.9% FLUSH 5 ML FLUSH IVF PRN (15:30)
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
[2017-06-11] MEDS: PANTOPRAZOLE SOD 40 MG DELAYED RELEASE TAB PO SCH (17:00)
[2017-06-11] MEDS ORDERED: *ONDANSETRON 4 MG VIAL PERIprocedural Use ONLY ONE (17:08)
[2017-06-11] MEDS ORDERED: *morphine SULFATE 8 MG/ML PERIprocedure ONLY ONE (17:08)
[2017-06-11] MEDS: DEXAMETHASONE SOD PHOS 4 MG/ML VIAL IV SCH (17:20)
[2017-06-11] MEDS ORDERED: *LABETALOL HCL 100 MG/20 ML VIAL PERIprocedural Use ONLY ONE (17:37)
--- NOTE | 2017-06-11 17:52 | RADRPT ---
EXAM DATE/TIME: 06/11/2017 15:19 [facility] COMPARISON: No previous studies available for comparison. INDICATIONS : Fusion C6,C7 with screw and plate placement. MEDICAL HISTORY : Trauma,Cervical spine related to a small fracture of the anterior-inferiorend plate of C6. SURGICAL HISTORY : None. ENCOUNTER: Subsequent ACUITY: 3 days PAIN SCORE: Non-responsive. LOCATION: Cervical spine. FINDINGS: Status post anterior cervical fusion from C6-C7. Alignment is anatomic. CONCLUSION: Anatomic alignment. Vimal Taylor MD FACR on June 11, 2017 at 17:49 Board Certified Radiologist. This report was verified electronically.
[2017-06-11] MEDS ORDERED: DO NOT ADM ANY ANTICOAGULANT DRUGS PRN (18:15)
[2017-06-11] MEDS ORDERED: SODIUM CHLORIDE 0.9% FLUSH 5 ML FLUSH IVF SCH (21:00)
[2017-06-12] VITALS (8 sets, daily range): BP systolic 143–171; BP diastolic 79–93; PULSE 66–91; RESP 16–20; TEMP 97.8–98.7; O2SAT 90–98
[2017-06-12] MEDS: DEXAMETHASONE SOD PHOS 4 MG/ML VIAL IV SCH ×5 (01:16→23:00)
[2017-06-12] MEDS: MORPHINE SULFATE 4 MG/ML INJ IV PRN ×2 (01:17→05:42)
[2017-06-12] MEDS: ceFAZolin 2 GM PREMIX 50 ML IV SCH ×3 (02:10→18:17)
[2017-06-12] MEDS: METHOCARBAMOL 500 MG TAB PO SCH ×3 (06:44→22:21)
[2017-06-12] MEDS: SODIUM CHLORIDE 0.9% FLUSH 10 ML FLUSH IV FLUSH SCH ×2 (09:00→21:00)
[2017-06-12] MEDS: oxyCODONE/ACETAMINOPHEN 10 MG/325 MG TAB PO PRN ×4 (10:26→22:21)
[2017-06-12] MEDS: SODIUM CHLOR 0.9% 1000 ML INJ 1,000 ML IV SCH (10:48)
[2017-06-12] MEDS: BACITRACIN TOP OINT 15 GM TUBE TOPICAL SCH ×2 (10:50→22:22)
[2017-06-12] MEDS: DOCUSATE SODIUM 50 MG/SENNA 8.6 MG TAB PO SCH ×2 (10:51→22:21)
[2017-06-12] MEDS: levETIRAcetam 500 MG TAB PO SCH ×2 (10:51→22:21)
[2017-06-12] MEDS: METOPROLOL TARTRATE 25 MG TAB PO SCH ×2 (10:51→22:21)
[2017-06-12] MEDS: LISINOPRIL 20 MG TAB PO SCH (10:51)
[2017-06-12] MEDS: LACTULOSE SYRUP 20 GM/30 ML CUP PO SCH (10:52)
--- NOTE | 2017-06-12 11:50 | HHI.PR ---
Subjective Subjective Notes Resting comfortably during rounds Objective Vitals/I&O Vital Signs Date Time Temp Pulse Resp B/P Pulse Ox O2 Delivery O2 Flow Rate FiO2 06/12/17 08:00 98.4 66 16 171/92 98 06/11/17 18:00 Nasal Cannula 3 Radiology Last Impressions Chest X-Ray 06/10/17 0600 Signed Impressions: Service Date/Time: June 02:13 - CONCLUSION: No acute disease. Yusuf Khan MD Cervical Spine X-Ray 06/10/17 0000 Signed Impressions: Service Date/Time: June 17:43 - CONCLUSION: The alignment of the cervical spine is maintained in flexion and extension. Arun Regan MD Pelvis X-Ray 06/09/171453 Signed Impressions: Service Date/Time: Friday, June 09, 2017 14:37 - CONCLUSION: 1. Right-sided pubic rami fractures, as above. Lj Cunningham MD Maxillofacial CT 06/09/171453 Signed Impressions: Service Date/Time: Friday, June 09, 2017 14:56 - CONCLUSION: 1. Acute nasal bone fractures bilaterally. 2. Soft tissue defect involving the forehead with tiny radiopaque densities associated with this. 3. Left periorbital soft tissue swelling. Arun Ramirez Jr., MD Head CT 06/09/171453 Signed Impressions: Service Date/Time: Friday, June 09, 2017 14:54 - CONCLUSION: Bifrontal parenchymal hemorrhage small parafalcine subdural with minimal localized mass effect. Trace intraventricular blood. Vimal Taylor MD FACR Chest CT 06/09/171453 Signed Impressions: Service Date/Time: Friday, June 09, 2017 15:03 - CONCLUSION: 1. Right sixth rib fracture. 2. Questionable L1 left transverse process fracture. 3. Cardiomegaly. Arun Ramirez Jr., MD Cervical Spine CT 06/09/171453 Signed Impressions: Service Date/Time: Friday, June 09, 2017 14:56 - CONCLUSION: 1. Acute fracture of C6 inferior endplate with exaggerated lordosis consistent with hyper extension injury. 2. Fracture involving the spinous process of C4. 3. Subluxation of C1-C2. 4. I spoke with concerning the findings. Arun Ramirez Jr., MD Abdomen/Pelvis CT 06/09/17 1454 Signed Impressions: Service Date/Time: Friday, June 09, 2017 14:59 - CONCLUSION: Nondisplaced ramus fracture on the right otherwise negative for acute traumatic injury.. Lack of intravenous contrast does make detection of subtle organ injury difficult. Vimal Taylor MD FACR Cervical Spine MRI 06/09/17 0000 Signed Impressions: Service Date/Time: Friday, June 09, 2017 17:28 - CONCLUSION: 1. Soft tissue swelling anterior to the lower cervical spine related to a small fracture of the anterior-inferior endplate of C6. There is also some T2 prolongation within the C6-C7 disc, possibly representing hemorrhage. 2. Left paracentral bulging of the C3-4 disc and mild central protrusion of the C5-6 disc, without significant deformity of the thecal sac at either these levels. No cerebral abnormality seen within the cervical cord. 3. Mild increased C1-2 distance, but no signal abnormalities in the osseous structures or surrounding soft tissues. 4. Soft tissue edema about the spinous process fracture C4. Arun Regan MD ADDENDUM: Comparing the MRI study to the flexion-extension films the increased signal in the C6-C7 disc as well as the teardrop fracture would suggest tear of the anterior longitudinal ligament. This patient would be at risk for significant delayed instability. Findings discussed with Dr. nunn on today's date. Vimal Taylor MD FACR Cardiovascular: Regular Lungs: Clear Abdomen: Non-distended A/P Assessment and Plan stable c spine procedure pod#1 doing well PT pain control,dvt prophylaxis Pamela Lino MD Jun 12, 2017 11:50
--- NOTE | 2017-06-12 12:45 | HHI.NSPN ---
(Leanne Lopez) Note Status Status: Progress Note (Leanne Lopez) Interval History Interval History 06/11: flex/ex xrays shows widening of C6-7 disc space during extension. c/o cervical pain with movement, she denies radiating pain or paresthesias to her extremities. 06/12: s/p C6-7 anterior cervical discectomy with interbody arthrodesis using PEEK cage bone grafter, screws and rods, doing well, denies significant surgical pain, previous neck pain better (Leanne Lopez) Labs, Micro, & Vital Signs Results Date Time Temp Pulse Resp B/P Pulse Ox O2 Delivery O2 Flow Rate FiO2 06/12/17 12:18 93 21 06/12/17 08:00 98.4 66 16 171/92 98 06/12/17 04:00 98.0 86 18 164/82 92 06/12/17 00:00 98.6 87 18 169/86 90 06/11/17 20:00 98.1 81 18 191/96 98 06/11/17 18:00 68 16 149/82 97 Nasal Cannula 3 06/11/17 17:45 70 16 145/79 96 Nasal Cannula 3 06/11/17 17:30 70 16 164/91 96 Nasal Cannula 3 06/11/17 17:15 74 16 161/91 94 Nasal Cannula 3 06/11/17 17:09 98 Nasal Cannula 3.00 06/11/17 17:00 78 16 166/100 94 Nasal Cannula 3 06/11/17 16:45 97.5 76 16 162/91 93 Nasal Cannula 3 06/12/17 06:59 Intake Total 200 ml Output Total 135 ml Balance 65 ml Constitutional Vital Signs Date Time Temp Pulse Resp B/P Pulse Ox O2 Delivery O2 Flow Rate FiO2 06/12/17 12:18 93 21 06/12/17 08:00 98.4 66 16 171/92 98 06/12/17 04:00 98.0 86 18 164/82 92 06/12/17 00:00 98.6 87 18 169/86 90 06/11/17 20:00 98.1 81 18 191/96 98 06/11/17 18:00 68 16 149/82 97 Nasal Cannula 3 06/11/17 17:45 70 16 145/79 96 Nasal Cannula 3 06/11/17 17:30 70 16 164/91 96 Nasal Cannula 3 06/11/17 17:15 74 16 161/91 94 Nasal Cannula 3 06/11/17 17:09 98 Nasal Cannula 3.00 06/11/17 17:00 78 16 166/100 94 Nasal Cannula 3 06/11/17 16:45 97.5 76 16 162/91 93 Nasal Cannula 3 06/12/17 06:59 Intake Total 200 ml Output Total 135 ml Balance 65 ml (Leanne Lopez) Review of Systems/Exam Exam Ms. Wang is alert, awake and oriented to time, place and person. Speech is fluent. Cranial nerve examination: pupils equal. Diffuse facial laceration with a large forehead lac thats repaired Neck is immobilized by Chacon J collar Muscle strength is normal in all muscle groups of both upper and lower extremities. Sensory examination is intact to light touch in both the upper and lower extremities. (Leanne Lopez) Medications Current Medications Current Medications Medications (Trade) Dose Ordered Sig/Geoffrey Route PRN Reason Start Time Stop Time Status Last Admin Dose Admin Sodium Chloride (NS Flush) 2 ml UNSCH PRN IV FLUSH FLUSH AFTER USING IV ACCESS 06/09/17 16:15 Sodium Chloride (NS Flush) 2 ml BID IV FLUSH 06/09/17 21:00 06/10/17 09:00 Ondansetron HCl (Zofran Inj) 4 mg Q6H PRN IV NAUSEA OR VOMITING 06/09/17 16:15 Pantoprazole Sodium (Protonix) 40 mg Q24H PO 06/09/17 17:00 06/10/17 18:14 Morphine Sulfate (Morphine Inj) 2 mg Q2H PRN IV PAIN 6-10 06/09/17 16:15 06/12/17 05:42 Naloxone HCl (Narcan Inj) 0.4 mg UNSCH PRN IV SEE LABEL COMMENTS 06/09/17 16:15 Levetriacetam 500 mg 500 mg Q12HR PO 06/09/17 21:00 06/12/17 10:51 Multivitamins/ Thiamine HCl/ Folic Acid/Sodium Chloride (Mvi-12 Inj/ Thiamine Inj/ Folvite Inj/NS 500 ml Inj) 511.2 ml @ 125 mls/hr DAILY IV 06/10/17 09:00 06/12/17 13:06 06/11/17 10:32 Methocarbamol (Robaxin) 500 mg Q8HR PO 06/10/17 08:00 06/12/17 06:44 Lidocaine HCl (Lidoderm 5% Patch.12 Hr) 1 patch DAILY T-DERMAL 06/10/17 09:00 06/10/17 08:48 Senna/Docusate Sodium (Ciara-Colace) 1 tab BID PO 06/10/17 09:00 06/12/17 10:51 Lactulose (Lactulose Liq) 30 ml DAILY PO 06/10/17 09:00 06/12/17 10:52 Bisacodyl (Dulcolax Supp) 10 mg DAILY PRN RECTAL Constipation 06/10/17 07:00 Enalaprilat (Vasotec Inj) 1.25 mg Q6H PRN IV PUSH SBP>180, DBP>100, HR>65 06/10/17 07:00 Lisinopril (Prinivil) 20 mg DAILY PO 06/10/17 10:00 06/12/17 10:51 Bacitracin (Baciguent Oint) 1 applic Q12HR TOPICAL 06/10/17 10:00 06/12/17 10:50 Metoprolol Tartrate 25 mg 25 mg Q12HR PO 06/10/17 10:00 06/12/17 10:51 Cefazolin Sodium/ Dextrose (Ancef 2 Gm Premix) 50 ml @ 100 mls/hr Q8H IV 06/11/17 23:00 06/12/17 15:29 06/12/17 10:47 Dexamethasone Sodium Phosphate (Decadron Inj) 4 mg Q6H IV 06/11/17 17:00 06/12/17 05:40 Acetaminophen (Tylenol) 650 mg Q4H PRN PO TEMPERATURE > 101.5 F 06/11/17 15:30 Menthol ([place] Ashley) 1 lozenge UNSCH PRN BUCCAL SORE THROAT 06/11/17 15:30 Oxycodone/ Acetaminophen (Percocet 10-325 Mg) 1 tab Q4H PRN PO PAIN SCALE 1 TO 5 06/11/17 15:30 Oxycodone/ Acetaminophen (Percocet 10-325 Mg) 2 tab Q4H PRN PO PAIN SCALE 6 TO 10 06/11/17 15:30 06/12/17 10:26 Morphine Sulfate (Morphine Inj) 2 mg Q2HR PRN IV PUSH breakthrough pain 06/11/17 15:30 Miscellaneous Information ALL NURSING DEPARTME... UNSCH PRN .XX SEE LABEL COMMENTS 06/11/17 18:15 06/12/17 18:14 Enoxaparin Sodium (Lovenox Inj) 30 mg Q12H SQ 06/12/17 12:00 (Leanne Lopez) Medical Decision Making MDM Remarks adult female with traumatic C6-7 ligamentous injury, unstable on flex/ex xrays s/p C6-7 ACDF on 03/11/17, POD 1 (Leanne Lopez) Plan Plan Remarks cont supportive care maintain Chacon collar ok to remove when eating keep FLAVIO drain to suction today, dc tomorrow am (Leanne Lopez) Attending Statement The exam, history, and the medical decision-making described in the above note were completed with the assistance of the mid-level provider. I reviewed and agree with the findings presented. I attest that I had a [id number] encounter with the patient on the same day, and personally performed and documented my assessment and findings in the medical record. (Bk Phillips MD) Leanne Lopez Jun 12, 2017 12:45 Bk Phillips MD Jun 12, 2017 14:23
[2017-06-12 12:56] LABS: AUTOMATED NEUTROPHIL # 5.5 TH/MM3 (1.8-7.7); BASOPHIL % 0.1 % (0.0-2.0); HEMATOCRIT 22.9 % (35.0-46.0); HEMO FLAGS DIFF FINAL; LYMPH % 10.4 % (9.0-44.0); LYMPHOCYTE # 0.7 TH/MM3 (1.0-4.8); MEAN CELL VOLUME 105.3 FL (80.0-100.0); MEAN CORPUSCULAR HGB CONC 35.1 % (32.0-36.0); MONO % 5.6 % (0.0-8.0); NEUT % 83.9 % (16.0-70.0); PLATELET COUNT 269 TH/MM3 (150-450); RED BLOOD COUNT 2.18 MIL/MM3 (4.00-5.30); RED CELL DISTRIBUTION WIDTH 13.8 % (11.6-17.2); WHITE BLOOD COUNT 6.5 TH/MM3 (4.0-11.0)
--- NOTE | 2017-06-12 13:13 | EKG ---
Date Performed: 06/11/2017 Time Performed: 14:06:20 PTAGE: 89 years EKG: Sinus rhythm NONSPECIFIC T-WAVE ABNORMALITY BORDERLINE ECG INTERPRETATION BASED ON A DEFAULT AGE OF 42 YEARS NO PREVIOUS TRACING DOCTOR: Amber Escoto Interpretating Date/Time 06/12/2017 13:10:50
[2017-06-12] MEDS: MULTIVITAMIN INJ 10 ML, THIAMINE INJ 100 MG, FOLIC ACID INJ 1 MG in SODIUM CHLORID 0.9%... IV SCH (13:25)
[2017-06-12 13:27] LABS: ALT (GPT) 35 U/L (10-53); ANION GAP 8 MEQ/L (5-15); AST (GOT) 42 U/L (15-37); BICARBONATE 26.5 MEQ/L (21.0-32.0); BLOOD UREA NITROGEN 9 MG/DL (7-18); CHLORIDE 104 MEQ/L (98-107); GLOMERULAR FILTRATION RATE 112 ML/MIN (>89); POTASSIUM 4.3 MEQ/L (3.5-5.1); SODIUM (NA) 138 MEQ/L (136-145)
[2017-06-12 13:28] LABS: ALKALINE PHOSPHATASE 86 U/L (45-117); TOTAL BILIRUBIN ADULT 0.5 MG/DL (0.2-1.0)
[2017-06-12] MEDS: ENOXAPARIN SODIUM 30 MG/0.3 ML SYRINGE SQ SCH ×2 (13:32→23:22)
[2017-06-12] MEDS: LIDOCAINE HCL 5% PATCH T-DERMAL SCH (16:46)
[2017-06-12] MEDS: PANTOPRAZOLE SOD 40 MG DELAYED RELEASE TAB PO SCH (18:19)
[2017-06-13] VITALS (7 sets, daily range): BP systolic 108–187; BP diastolic 92–115; PULSE 70–80; RESP 17–19; TEMP 98–99; O2SAT 91–98
[2017-06-13] MEDS: oxyCODONE/ACETAMINOPHEN 10 MG/325 MG TAB PO PRN ×4 (03:15→20:43)
[2017-06-13] MEDS: METHOCARBAMOL 500 MG TAB PO SCH ×3 (05:45→20:43)
[2017-06-13] MEDS: ENALAPRILAT 1.25 MG/ML VIAL IV PUSH PRN ×2 (05:45→16:44)
[2017-06-13] MEDS: DEXAMETHASONE SOD PHOS 4 MG/ML VIAL IV SCH ×3 (05:45→16:43)
[2017-06-13] MEDS: METOPROLOL TARTRATE 25 MG TAB PO SCH ×2 (08:48→20:43)
[2017-06-13] MEDS: DOCUSATE SODIUM 50 MG/SENNA 8.6 MG TAB PO SCH ×2 (08:48→20:43)
[2017-06-13] MEDS: levETIRAcetam 500 MG TAB PO SCH ×2 (08:49→20:43)
[2017-06-13] MEDS: LISINOPRIL 20 MG TAB PO SCH (08:49)
[2017-06-13] MEDS: LACTULOSE SYRUP 20 GM/30 ML CUP PO SCH (08:49)
[2017-06-13] MEDS: SODIUM CHLORIDE 0.9% FLUSH 10 ML FLUSH IV FLUSH SCH ×2 (08:51→20:43)
[2017-06-13] MEDS: LIDOCAINE HCL 5% PATCH T-DERMAL SCH (09:00)
--- NOTE | 2017-06-13 10:57 | HHI.PR ---
Subjective Subjective Notes Complains of neck pain Reports no history of hypertension Objective Vitals/I&O Vital Signs Date Time Temp Pulse Resp B/P Pulse Ox O2 Delivery O2 Flow Rate FiO2 06/13/17 08:20 98.6 73 18 108/104 94 06/12/17 21:26 Nasal Cannula 2.00 06/12/17 12:18 21 Labs Laboratory Tests Test 06/12/17 11:52 White Blood Count 6.5 Red Blood Count 2.18 Hemoglobin 8.1 Hematocrit 22.9 Mean Corpuscular Volume 105.3 Mean Corpuscular Hemoglobin 37.0 Mean Corpuscular Hemoglobin 35.1 Concent Red Cell Distribution Width 13.8 Platelet Count 269 Mean Platelet Volume 7.3 Neutrophils (%) (Auto) 83.9 Lymphocytes (%) (Auto) 10.4 Monocytes (%) (Auto) 5.6 Eosinophils (%) (Auto) 0.0 Basophils (%) (Auto) 0.1 Neutrophils # (Auto) 5.5 Lymphocytes # (Auto) 0.7 Monocytes # (Auto) 0.4 Eosinophils # (Auto) 0.0 Basophils # (Auto) 0.0 CBC Comment DIFF FINAL Differential Comment Sodium Level 138 Potassium Level 4.3 Chloride Level 104 Carbon Dioxide Level 26.5 Anion Gap 8 Blood Urea Nitrogen 9 Creatinine 0.56 Estimat Glomerular Filtration 112 Rate Random Glucose 137 Calcium Level 7.9 Total Bilirubin 0.5 Aspartate Amino Transf 42 (AST/SGOT) Alanine Aminotransferase 35 (ALT/SGPT) Alkaline Phosphatase 86 Total Protein 5.4 Albumin 2.2 Radiology Last Impressions Chest X-Ray 06/10/17 0600 Signed Impressions: Service Date/Time: June 02:13 - CONCLUSION: No acute disease. Yusuf Khan MD Cervical Spine X-Ray 06/10/17 0000 Signed Impressions: Service Date/Time: June 17:43 - CONCLUSION: The alignment of the cervical spine is maintained in flexion and extension. Arun Regan MD Pelvis X-Ray 06/09/17 8434 Signed Impressions: Service Date/Time: Friday, June 09, 2017 14:37 - CONCLUSION: 1. Right-sided pubic rami fractures, as above. Lj Cunningham MD Maxillofacial CT 06/09/17 5094 Signed Impressions: Service Date/Time: Friday, June 09, 2017 14:56 - CONCLUSION: 1. Acute nasal bone fractures bilaterally. 2. Soft tissue defect involving the forehead with tiny radiopaque densities associated with this. 3. Left periorbital soft tissue swelling. Arun Ramirez Jr., MD Head CT 06/09/17 1454 Signed Impressions: Service Date/Time: Friday, June 09, 2017 14:54 - CONCLUSION: Bifrontal parenchymal hemorrhage small parafalcine subdural with minimal localized mass effect. Trace intraventricular blood. Vimla Taylor MD FACR Chest CT 06/09/17 145 Signed Impressions: Service Date/Time: Friday, June 09, 2017 15:03 - CONCLUSION: 1. Right sixth rib fracture. 2. Questionable L1 left transverse process fracture. 3. Cardiomegaly. Arun Ramirez Jr., MD Cervical Spine CT 06/09/17 145 Signed Impressions: Service Date/Time: Friday, June 09, 2017 14:56 - CONCLUSION: 1. Acute fracture of C6 inferior endplate with exaggerated lordosis consistent with hyper extension injury. 2. Fracture involving the spinous process of C4. 3. Subluxation of C1-C2. 4. I spoke with concerning the findings. Arun Ramirez Jr., MD Abdomen/Pelvis CT 06/09/17 145 Signed Impressions: Service Date/Time: Friday, June 09, 2017 14:59 - CONCLUSION: Nondisplaced ramus fracture on the right otherwise negative for acute traumatic injury.. Lack of intravenous contrast does make detection of subtle organ injury difficult. Vimal Taylor MD FACR Cervical Spine MRI 06/09/17 0000 Signed Impressions: Service Date/Time: Friday, June 09, 2017 17:28 - CONCLUSION: 1. Soft tissue swelling anterior to the lower cervical spine related to a small fracture of the anterior-inferior endplate of C6. There is also some T2 prolongation within the C6-C7 disc, possibly representing hemorrhage. 2. Left paracentral bulging of the C3-4 disc and mild central protrusion of the C5-6 disc, without significant deformity of the thecal sac at either these levels. No cerebral abnormality seen within the cervical cord. 3. Mild increased C1-2 distance, but no signal abnormalities in the osseous structures or surrounding soft tissues. 4. Soft tissue edema about the spinous process fracture C4. Arun Regan MD ADDENDUM: Comparing the MRI study to the flexion-extension films the increased signal in the C6-C7 disc as well as the teardrop fracture would suggest tear of the anterior longitudinal ligament. This patient would be at risk for significant delayed instability. Findings discussed with Dr. nunn on today's date. Vimal Taylor MD FACR Narrative Exam GENERAL: 57-year-old disheveled female lying in bed with [place] J collar on. SKIN: Warm and dry. Periorbital edema. Left frontal sutures well approximated. Multiple abrasions noted to face. HEAD: Normocephalic. ENT: No nasal bleeding or discharge. Mucous membranes pink and moist. NECK: Trachea midline. No JVD. [place] J collar in place. Anterior neck FLAVIO drain in place with serosanguineous drainage noted. CARDIOVASCULAR: Regular rate and rhythm. RESPIRATORY: No accessory muscle use. Lungs clear and diminished to auscultation. Breath sounds equal bilaterally. GASTROINTESTINAL: Abdomen soft, non-tender, nondistended. + BS. MUSCULOSKELETAL: Extremities without cyanosis, or edema. MAEW. NEUROLOGICAL: Awake and alert. Normal speech. A/P Assessment and Plan INJURIES: Facial lac Bifrontal IPH SDH IVH Nasal fx C6 fx C1-C2 subluxation C4 transverse process fx RIGHT rib fx (6) L1 transverse process fx RIGHT pubic rami fx (non-op) PMHx: ETOH 06/11: C6-7 anterior cervical discectomy fusion Diet: Heart healthy-pureed-- ST cognitive Pulm: IS Pain: Percocet, Morphine IV, Robaxin, Lidoderm patch Activity: OOB. PT and OT ordered. ("limited" WB RLE) GI: PO Protonix Bowel: Ciara-colace, Lactulose. LBM 0 DVT: SCDs Facial lac (sutures) Supportive care Sutures remain in place for 4-5 days Cleanse daily with soap and water, leave open to air Bifrontal IPH, SDH, C6 fx, C1-C2 subluxation, C4 transverse process fx Neurosurgery consulted Serial neuro checks Maintain [place] J /: C6-7 anterior cervical discectomy fusion PO Keppra for seizure prophylaxis Neuropsychology consulted STcognitive eval OOB Nasal fx Supportive care Follow-up with OMFS as outpatient RIGHT rib fx, L1 transverse process fx Supportive care Pain control Pulmonary toileting OOBPT RIGHT pubic rami fx Orthopedics consulted Nonoperative management Pain control Limited weightbearing RLE OOBPT HTN Lisinopril 20mg QD Lopressor 25 BID HEPAS consulted for medical management ETOH abuse MVI bag Supportive care Monitor for DTs Plan of care discussed with patient at bedside. Case management consulted to assist with discharge planning. Remarks And examined with the nurse practitioner Neuro intact GCS 15 Medicine consult for hypertension Neuropsychology assessment in the morning Discharge planning physical therapy Chloé Dalal Jun 13, 2017 10:57 Pamela Lino MD Jun 13, 2017 17:17
[2017-06-13] MEDS ORDERED: METOPROLOL TARTRATE 25 MG TAB PO ONE (11:00)
[2017-06-13] MEDS ORDERED: LORazepam 2 MG/ML VIAL IV PUSH PRN (11:15)
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
[2017-06-13 12:40] LABS: AUTOMATED NEUTROPHIL # 5.5 TH/MM3 (1.8-7.7); BASOPHIL % 0.2 % (0.0-2.0); HEMATOCRIT 24.5 % (35.0-46.0); LYMPH % 13.5 % (9.0-44.0); LYMPHOCYTE # 0.9 TH/MM3 (1.0-4.8); MEAN CELL VOLUME 106.3 FL (80.0-100.0); MEAN CORPUSCULAR HEMOGLOBIN 35.8 PG (27.0-34.0); MEAN CORPUSCULAR HGB CONC 33.7 % (32.0-36.0); MONO % 6.1 % (0.0-8.0); NEUT % 80.2 % (16.0-70.0); PLATELET COUNT 353 TH/MM3 (150-450); RED BLOOD COUNT 2.31 MIL/MM3 (4.00-5.30); RED CELL DISTRIBUTION WIDTH 14.2 % (11.6-17.2); WHITE BLOOD COUNT 6.9 TH/MM3 (4.0-11.0)
[2017-06-13 12:43] LABS: HEMO FLAGS AUTO DIFF
[2017-06-13 12:55] LABS: ALT (GPT) 26 U/L (10-53); ANION GAP 8 MEQ/L (5-15); AST (GOT) 20 U/L (15-37); BICARBONATE 27.2 MEQ/L (21.0-32.0); BLOOD UREA NITROGEN 10 MG/DL (7-18); CHLORIDE 103 MEQ/L (98-107); GLOMERULAR FILTRATION RATE 90 ML/MIN (>89); POTASSIUM 4.3 MEQ/L (3.5-5.1); SODIUM (NA) 138 MEQ/L (136-145)
[2017-06-13 12:57] LABS: ALKALINE PHOSPHATASE 80 U/L (45-117); TOTAL BILIRUBIN ADULT 0.5 MG/DL (0.2-1.0)
[2017-06-13] MEDS: BACITRACIN TOP OINT 15 GM TUBE TOPICAL SCH ×2 (13:30→21:01)
[2017-06-13] MEDS: THIAMINE HCL 100 MG TAB PO SCH (13:32)
[2017-06-13] MEDS: MULTIVITAMIN TAB PO SCH (13:32)
[2017-06-13] MEDS: ENOXAPARIN SODIUM 30 MG/0.3 ML SYRINGE SQ SCH (13:37)
[2017-06-13] MEDS: FOLIC ACID 1 MG TAB PO SCH (13:37)
[2017-06-13 13:38] LABS: TRANSFERRIN IRON PROFILE 171 MG/DL (200-360)
[2017-06-13 13:50] LABS: BANDS 10 % (0-6); MYELOCYTES 2 % (0-0); NEUTROPHIL # MANUAL DIFF 6.1 TH/MM3 (1.8-7.7); PLATELET ESTIMATE SMEAR NORMAL (NORMAL); PLATELET MORPHOLOGY NORMAL (NORMAL); POLYS (SEG NEUTROPHILS) 76 % (16-70); SCAN/DIFF FINAL DIFF MANUAL; WBC DIFF SAMPLE 100
[2017-06-13] MEDS ORDERED: MORPHINE SULFATE 4 MG/ML INJ IV PUSH PRN (14:00)
[2017-06-13 14:20] LABS: FERRITIN 213 NG/ML (8-252)
[2017-06-13] MEDS ORDERED: LISINOPRIL 20 MG TAB PO ONE (16:30)
[2017-06-13] MEDS: PANTOPRAZOLE SOD 40 MG DELAYED RELEASE TAB PO SCH (16:43)
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
[2017-06-14] VITALS (7 sets, daily range): BP systolic 170–210; BP diastolic 99–115; PULSE 62–71; RESP 16–18; TEMP 97.4–98.9; O2SAT 93–95
[2017-06-14] MEDS: DEXAMETHASONE SOD PHOS 4 MG/ML VIAL IV SCH ×4 (00:36→16:58)
[2017-06-14] MEDS: ENOXAPARIN SODIUM 30 MG/0.3 ML SYRINGE SQ SCH ×2 (00:36→12:34)
[2017-06-14] MEDS: oxyCODONE/ACETAMINOPHEN 10 MG/325 MG TAB PO PRN ×3 (00:36→08:57)
[2017-06-14] MEDS: ENALAPRILAT 1.25 MG/ML VIAL IV PUSH PRN ×2 (00:36→20:34)
[2017-06-14] MEDS: METHOCARBAMOL 500 MG TAB PO SCH ×2 (04:49→12:37)
[2017-06-14] MEDS ORDERED: cloNIDine HCL 0.1 MG TAB PO ONE (05:15)
[2017-06-14] MEDS: METOPROLOL TARTRATE 25 MG TAB PO SCH (08:54)
[2017-06-14] MEDS: DOCUSATE SODIUM 50 MG/SENNA 8.6 MG TAB PO SCH (08:55)
[2017-06-14] MEDS: THIAMINE HCL 100 MG TAB PO SCH (08:55)
[2017-06-14] MEDS: MULTIVITAMIN TAB PO SCH (08:56)
[2017-06-14] MEDS: levETIRAcetam 500 MG TAB PO SCH (08:56)
[2017-06-14] MEDS: FOLIC ACID 1 MG TAB PO SCH (08:56)
[2017-06-14] MEDS: LACTULOSE SYRUP 20 GM/30 ML CUP PO SCH (08:56)
[2017-06-14] MEDS: LISINOPRIL 20 MG TAB PO SCH (08:58)
[2017-06-14] MEDS: SODIUM CHLORIDE 0.9% FLUSH 10 ML FLUSH IV FLUSH SCH (09:00)
[2017-06-14] MEDS ORDERED: amLODIPine BESYLATE 5 MG TAB PO SCH (09:00)
[2017-06-14] MEDS: LIDOCAINE HCL 5% PATCH T-DERMAL SCH (09:05)
[2017-06-14] MEDS: BACITRACIN TOP OINT 15 GM TUBE TOPICAL SCH (09:06)
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
[2017-06-14] MEDS ORDERED: MORPHINE SULFATE 4 MG/ML INJ IV PUSH ONE (10:00)
--- NOTE | 2017-06-14 11:57 | HHI.NSPN ---
(eLanne Lopez) Note Status Status: Progress Note (Leanne Lopez) Interval History Interval History 06/11: flex/ex xrays shows widening of C6-7 disc space during extension. c/o cervical pain with movement, she denies radiating pain or paresthesias to her extremities. 06/12: s/p C6-7 anterior cervical discectomy with interbody arthrodesis using PEEK cage bone grafter, screws and rods, doing well, denies significant surgical pain, previous neck pain better 06/13: patient seen this morning during rounds. doing well, no acute events overnight 06/14: no new complaints, mild cervical discomfort, (Leanne Lopez) Labs, Micro, & Vital Signs Results Date Time Temp Pulse Resp B/P Pulse Ox O2 Delivery O2 Flow Rate FiO2 06/14/17 08:00 98.5 62 18 182/103 93 06/14/17 04:27 98.6 65 17 187/99 94 06/14/17 00:30 98.7 71 17 184/114 94 06/13/17 22:22 Room Air 06/13/17 20:30 99.0 78 17 184/97 94 06/13/17 16:00 98.9 80 18 187/115 91 06/13/17 15:51 72 06/13/17 12:52 98.8 72 19 181/105 94 06/14/17 06:59 Intake Total 240 ml Balance 240 ml Constitutional Vital Signs Date Time Temp Pulse Resp B/P Pulse Ox O2 Delivery O2 Flow Rate FiO2 06/14/17 08:00 98.5 62 18 182/103 93 06/14/17 04:27 98.6 65 17 187/99 94 06/14/17 00:30 98.7 71 17 184/114 94 06/13/17 22:22 Room Air 06/13/17 20:30 99.0 78 17 184/97 94 06/13/17 16:00 98.9 80 18 187/115 91 06/13/17 15:51 72 06/13/17 12:52 98.8 72 19 181/105 94 06/14/17 06:59 Intake Total 240 ml Balance 240 ml (Leanne Lopez) Review of Systems/Exam Exam She is alert, awake. Speech is appropriate Cervical spine immobilized with a [place] J collar Muscle strength is 5/5 in all muscle groups of both upper and lower extremities. Negative Bronson's bilaterally Facial abrasions are healing (Leanne Lopez) Medications Current Medications Current Medications Medications (Trade) Dose Ordered Sig/Geoffrey Route PRN Reason Start Time Stop Time Status Last Admin Dose Admin Sodium Chloride (NS Flush) 2 ml UNSCH PRN IV FLUSH FLUSH AFTER USING IV ACCESS 06/09/17 16:15 Sodium Chloride (NS Flush) 2 ml BID IV FLUSH 06/09/17 21:00 06/14/17 09:00 Ondansetron HCl (Zofran Inj) 4 mg Q6H PRN IV NAUSEA OR VOMITING 06/09/17 16:15 Pantoprazole Sodium (Protonix) 40 mg Q24H PO 06/09/17 17:00 06/13/17 16:43 Naloxone HCl (Narcan Inj) 0.4 mg UNSCH PRN IV SEE LABEL COMMENTS 06/09/17 16:15 Levetriacetam (Keppra) 500 mg Q12HR PO 06/09/17 21:00 06/14/17 08:56 Methocarbamol (Robaxin) 500 mg Q8HR PO 06/10/17 08:00 06/14/17 04:49 Lidocaine HCl (Lidoderm 5% Patch.12 Hr) 1 patch DAILY T-DERMAL 06/10/17 09:00 06/14/17 09:05 Senna/Docusate Sodium (Ciara-Colace) 1 tab BID PO 06/10/17 09:00 06/14/17 08:55 Lactulose (Lactulose Liq) 30 ml DAILY PO 06/10/17 09:00 06/14/17 08:56 Bisacodyl (Dulcolax Supp) 10 mg DAILY PRN RECTAL Constipation 06/10/17 07:00 Bacitracin (Baciguent Oint) 1 applic Q12HR TOPICAL 06/10/17 10:00 06/14/17 09:06 Dexamethasone Sodium Phosphate (Decadron Inj) 4 mg Q6H IV 06/11/17 17:00 06/14/17 04:03 Acetaminophen (Tylenol) 650 mg Q4H PRN PO TEMPERATURE > 101.5 F 06/11/17 15:30 Menthol ([place]) 1 lozenge UNSCH PRN BUCCAL SORE THROAT 06/11/17 15:30 Oxycodone/ Acetaminophen (Percocet 10-325 Mg) 1 tab Q4H PRN PO PAIN SCALE 1 TO 5 06/11/17 15:30 06/14/17 08:57 Oxycodone/ Acetaminophen (Percocet 10-325 Mg) 2 tab Q4H PRN PO PAIN SCALE 6 TO 10 06/11/17 15:30 06/14/17 04:49 Enoxaparin Sodium (Lovenox Inj) 30 mg Q12H SQ 06/12/17 12:00 06/14/17 00:36 Metoprolol Tartrate (Lopressor) 50 mg Q12HR PO 06/13/17 21:00 06/14/17 08:54 Morphine Sulfate (Morphine Inj) 4 mg Q4H PRN IV PUSH breakthrough pain 06/13/17 14:00 06/13/17 13:25 Lorazepam (Ativan Inj) 2 mg Q2H PRN IV PUSH withdrawal 06/13/17 11:15 Thiamine HCl (Vitamin B1) 100 mg DAILY PO 06/13/17 12:00 06/14/17 08:55 Folic Acid (Folate) 1 mg DAILY PO 06/13/17 12:00 06/14/17 08:56 Multivitamins (Theragran) 1 tab DAILY PO 06/13/17 12:00 06/14/17 08:56 Lisinopril (Prinivil) 40 mg DAILY PO 06/14/17 09:00 06/14/17 08:58 Amlodipine Besylate (Norvasc) 5 mg DAILY PO 06/14/17 09:00 06/14/17 09:08 Enalaprilat (Vasotec Inj) 2.5 mg Q6H PRN IV PUSH SBP>160, DBP>100, HR>65 06/14/17 13:00 Miscellaneous Information 1 Q24H T-DERMAL 06/15/17 09:00 (Leanne Lopez) Medical Decision Making MDM Remarks adult female with traumatic C6-7 ligamentous injury, unstable on flex/ex xrays s/p C6-7 ACDF on 06/11/17, POD 3, doing well, neuro stable (Leanne Lopez) Plan Plan Remarks cont current care maintain [place] collar cont therapy, rehab efforts clear to dc to rehab from [facility] standpoint f/u in office in 3 weeks (Leanne Lopez) Attending Statement The exam, history, and the medical decision-making described in the above note were completed with the assistance of the mid-level provider. I reviewed and agree with the findings presented. I attest that I had a [id number] encounter with the patient on the same day, and personally performed and documented my assessment and findings in the medical record. (Bk Phillips MD) Leanne Lopez Jun 14, 2017 11:56 Bk Phillips MD Jun 15, 2017 20:02
--- NOTE | 2017-06-14 15:56 | HHI.PR ---
Subjective Subjective Notes FLAVIO drain out today Pain better Reports she ambulated with PT Objective Vitals/I&O Vital Signs Date Time Temp Pulse Resp B/P Pulse Ox O2 Delivery O2 Flow Rate FiO2 06/14/17 12:48 170/100 Automatic Cuff 06/14/17 12:00 97.9 66 18 95 06/13/17 22:22 Room Air 06/12/17 21:26 2.00 06/12/17 12:18 21 Radiology Last Impressions Chest X-Ray 06/10/17 0600 Signed Impressions: Service Date/Time: June 02:13 - CONCLUSION: No acute disease. Yusuf Khan MD Cervical Spine X-Ray 06/10/17 0000 Signed Impressions: Service Date/Time: June 17:43 - CONCLUSION: The alignment of the cervical spine is maintained in flexion and extension. Arun Regan MD Pelvis X-Ray 06/09/17 145 Signed Impressions: Service Date/Time: Friday, June 09, 2017 14:37 - CONCLUSION: 1. Right-sided pubic rami fractures, as above. Lj Cunningham MD Maxillofacial CT 06/09/171453 Signed Impressions: Service Date/Time: Friday, June 09, 2017 14:56 - CONCLUSION: 1. Acute nasal bone fractures bilaterally. 2. Soft tissue defect involving the forehead with tiny radiopaque densities associated with this. 3. Left periorbital soft tissue swelling. Arun Ramirez Jr., MD Head CT 06/09/171453 Signed Impressions: Service Date/Time: Friday, June 09, 2017 14:54 - CONCLUSION: Bifrontal parenchymal hemorrhage small parafalcine subdural with minimal localized mass effect. Trace intraventricular blood. Vimal Taylor MD FACR Chest CT 06/09/17 145 Signed Impressions: Service Date/Time: Friday, June 09, 2017 15:03 - CONCLUSION: 1. Right sixth rib fracture. 2. Questionable L1 left transverse process fracture. 3. Cardiomegaly. Arun Ramirez Jr., MD Cervical Spine CT 06/09/17 145 Signed Impressions: Service Date/Time: Friday, June 09, 2017 14:56 - CONCLUSION: 1. Acute fracture of C6 inferior endplate with exaggerated lordosis consistent with hyper extension injury. 2. Fracture involving the spinous process of C4. 3. Subluxation of C1-C2. 4. I spoke with concerning the findings. Arun Ramirez Jr., MD Abdomen/Pelvis CT 06/09/17 1454 Signed Impressions: Service Date/Time: Friday, June 09, 2017 14:59 - CONCLUSION: Nondisplaced ramus fracture on the right otherwise negative for acute traumatic injury.. Lack of intravenous contrast does make detection of subtle organ injury difficult. Vimal Taylor MD FACR Cervical Spine MRI 06/09/17 0000 Signed Impressions: Service Date/Time: Friday, June 09, 2017 17:28 - CONCLUSION: 1. Soft tissue swelling anterior to the lower cervical spine related to a small fracture of the anterior-inferior endplate of C6. There is also some T2 prolongation within the C6-C7 disc, possibly representing hemorrhage. 2. Left paracentral bulging of the C3-4 disc and mild central protrusion of the C5-6 disc, without significant deformity of the thecal sac at either these levels. No cerebral abnormality seen within the cervical cord. 3. Mild increased C1-2 distance, but no signal abnormalities in the osseous structures or surrounding soft tissues. 4. Soft tissue edema about the spinous process fracture C4. Arun Regan MD ADDENDUM: Comparing the MRI study to the flexion-extension films the increased signal in the C6-C7 disc as well as the teardrop fracture would suggest tear of the anterior longitudinal ligament. This patient would be at risk for significant delayed instability. Findings discussed with Dr. nunn on today's date. Vimal Taylor MD FACR Narrative Exam GENERAL: 57-year-old disheveled female lying in bed with [place] J collar on. SKIN: Warm and dry. Periorbital edema. Left frontal sutures well approximated. Multiple abrasions noted to face. HEAD: Normocephalic. ENT: No nasal bleeding or discharge. Mucous membranes pink and moist. NECK: Trachea midline. No JVD. [place] J collar in place. CARDIOVASCULAR: Regular rate and rhythm. RESPIRATORY: No accessory muscle use. Lungs clear and diminished to auscultation. Breath sounds equal bilaterally. GASTROINTESTINAL: Abdomen soft, non-tender, nondistended. + BS. MUSCULOSKELETAL: Extremities without cyanosis, or edema. MAEW. NEUROLOGICAL: Awake and alert. Normal speech. Some confusion and repetition A/P Assessment and Plan INJURIES: Facial lac Bifrontal IPH SDH IVH Nasal fx C6 fx C1-C2 subluxation C4 transverse process fx RIGHT rib fx (6) L1 transverse process fx RIGHT pubic rami fx (non-op) PMHx: ETOH 06/11: C6-7 anterior cervical discectomy fusion Diet: Heart healthy-pureed-- ST cognitive Pulm: IS Pain: Percocet, Morphine IV, Robaxin, Lidoderm patch Activity: OOB. PT and OT ordered. ("limited" WB RLE) GI: PO Protonix Bowel: Ciara-colace, Lactulose. LBM 06/14 DVT: SCDs Facial lac (sutures) Supportive care Sutures remain in place for 4-5 days Cleanse daily with soap and water, leave open to air Bifrontal IPH, SDH, C6 fx, C1-C2 subluxation, C4 transverse process fx Neurosurgery consulted Serial neuro checks Maintain [place] J 06/11: C6-7 anterior cervical discectomy fusion PO Keppra for seizure prophylaxis Neuropsychology consulted STcognitive eval OOB NS cleared for DC Nasal fx Supportive care Follow-up with OMFS as outpatient RIGHT rib fx, L1 transverse process fx Supportive care Pain control Pulmonary toileting OOBPT RIGHT pubic rami fx Orthopedics consulted Nonoperative management Pain control Limited weightbearing RLE OOBPT increased to 7 days/week HTN HEPAS consulted for medical management ETOH abuse MVI, Thiamine, Folate PO Supportive care Monitor for DTs PRN Ativan for withdrawal Plan of care discussed with patient at bedside. Case management consulted to assist with discharge planning. Remarks seen and examined with NANOTECHNOLOGY ENGINEERING TECHNICIAN-agree with assessment and plan cognitive assessment dc planning pain control Chloé Dalal Jun 14, 2017 15:56 Pamela Lino MD Jun 15, 2017 16:31
[2017-06-14] MEDS: PANTOPRAZOLE SOD 40 MG DELAYED RELEASE TAB PO SCH (16:58)
[2017-06-15] VITALS (7 sets, daily range): BP systolic 145–204; BP diastolic 78–116; PULSE 63–77; RESP 18–19; TEMP 98–98.5; O2SAT 92–99
[2017-06-15] MEDS: SODIUM CHLORIDE 0.9% FLUSH 10 ML FLUSH IV FLUSH SCH ×3 (00:06→20:40)
[2017-06-15] MEDS: DOCUSATE SODIUM 50 MG/SENNA 8.6 MG TAB PO SCH ×3 (00:07→20:41)
[2017-06-15] MEDS: BACITRACIN TOP OINT 15 GM TUBE TOPICAL SCH ×3 (00:07→20:41)
[2017-06-15] MEDS: METOPROLOL TARTRATE 25 MG TAB PO SCH (00:07)
[2017-06-15] MEDS: levETIRAcetam 500 MG TAB PO SCH ×3 (00:07→20:41)
[2017-06-15] MEDS: METHOCARBAMOL 500 MG TAB PO SCH ×4 (00:08→20:40)
[2017-06-15] MEDS: DEXAMETHASONE SOD PHOS 4 MG/ML VIAL IV SCH ×4 (00:08→21:00)
[2017-06-15] MEDS: ENOXAPARIN SODIUM 30 MG/0.3 ML SYRINGE SQ SCH ×2 (00:08→11:44)
[2017-06-15] MEDS: ENALAPRILAT 1.25 MG/ML VIAL IV PUSH PRN ×2 (01:30→08:03)
[2017-06-15] MEDS: oxyCODONE/ACETAMINOPHEN 10 MG/325 MG TAB PO PRN ×5 (03:35→22:12)
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
[2017-06-15 09:17] LABS: AUTOMATED NEUTROPHIL # 6.3 TH/MM3 (1.8-7.7); BASOPHIL % 0.1 % (0.0-2.0); EOSINOPHIL % 0.1 % (0.0-4.0); HEMATOCRIT 25.9 % (35.0-46.0); LYMPH % 15.9 % (9.0-44.0); LYMPHOCYTE # 1.3 TH/MM3 (1.0-4.8); MEAN CELL VOLUME 105.9 FL (80.0-100.0); MEAN CORPUSCULAR HEMOGLOBIN 37.5 PG (27.0-34.0); MEAN CORPUSCULAR HGB CONC 35.4 % (32.0-36.0); MONO % 7.7 % (0.0-8.0); NEUT % 76.2 % (16.0-70.0); PLATELET COUNT 381 TH/MM3 (150-450); RED BLOOD COUNT 2.45 MIL/MM3 (4.00-5.30); RED CELL DISTRIBUTION WIDTH 14.8 % (11.6-17.2); WHITE BLOOD COUNT 8.2 TH/MM3 (4.0-11.0)
[2017-06-15 09:18] LABS: HEMO FLAGS AUTO DIFF
[2017-06-15] MEDS: MULTIVITAMIN TAB PO SCH (09:22)
[2017-06-15] MEDS: FOLIC ACID 1 MG TAB PO SCH (09:22)
[2017-06-15] MEDS: LACTULOSE SYRUP 20 GM/30 ML CUP PO SCH (09:22)
[2017-06-15] MEDS: LISINOPRIL 20 MG TAB PO SCH (09:22)
[2017-06-15] MEDS: THIAMINE HCL 100 MG TAB PO SCH (09:22)
[2017-06-15] MEDS: amLODIPine BESYLATE 5 MG TAB PO SCH (09:23)
[2017-06-15] MEDS: LIDOCAINE HCL 5% PATCH T-DERMAL SCH (09:24)
[2017-06-15] MEDS: REMOVE OLD LIDOCAINE PATCH T-DERMAL SCH (09:24)
[2017-06-15] MEDS: LABETALOL HCL 100 MG TAB PO SCH ×2 (09:38→20:41)
[2017-06-15 10:19] LABS: BANDS 7 % (0-6); CORRECTED NUCLEATED RBC 5 /100 WBC (0-0); EOSINOPHILS 1 % (0-4); METAMYELOCYTES 2 % (0-1); NEUTROPHIL # MANUAL DIFF 6.3 TH/MM3 (1.8-7.7); POLYS (SEG NEUTROPHILS) 68 % (16-70); WBC DIFF SAMPLE 100
[2017-06-15 10:20] LABS: PLATELET ESTIMATE SMEAR NORMAL (NORMAL); PLATELET MORPHOLOGY NORMAL (NORMAL); SCAN/DIFF FINAL DIFF MANUAL
--- NOTE | 2017-06-15 14:11 | HHI.PR ---
Subjective Subjective Notes Ambulating well with PT Pain better Objective Vitals/I&O Vital Signs Date Time Temp Pulse Resp B/P Pulse Ox O2 Delivery O2 Flow Rate FiO2 06/15/17 12:46 98.5 71 18 145/78 92 06/15/17 08:15 Nasal Cannula 2.00 06/14/17 08:00 21 Labs Laboratory Tests Test 06/15/17 07:30 White Blood Count 8.2 Red Blood Count 2.45 Hemoglobin 9.2 Hematocrit 25.9 Mean Corpuscular Volume 105.9 Mean Corpuscular Hemoglobin 37.5 Mean Corpuscular Hemoglobin 35.4 Concent Red Cell Distribution Width 14.8 Platelet Count 381 Mean Platelet Volume 7.3 Neutrophils (%) (Auto) 76.2 Lymphocytes (%) (Auto) 15.9 Monocytes (%) (Auto) 7.7 Eosinophils (%) (Auto) 0.1 Basophils (%) (Auto) 0.1 Neutrophils # (Auto) 6.3 Lymphocytes # (Auto) 1.3 Monocytes # (Auto) 0.6 Eosinophils # (Auto) 0.0 Basophils # (Auto) 0.0 CBC Comment AUTO DIFF Differential Total Cells 100 Counted Neutrophils % (Manual) 68 Band Neutrophils % 7 Lymphocytes % 14 Monocytes % 8 Eosinophils % 1 Neutrophils # (Manual) 6.3 Metamyelocytes 2 Nucleated Red Blood Cells 5 Differential Comment FINAL DIFF MANUAL Platelet Estimate NORMAL Platelet Morphology Comment NORMAL Radiology Last Impressions Chest X-Ray 06/10/17 0600 Signed Impressions: Service Date/Time: June 02:13 - CONCLUSION: No acute disease. Yusuf Khan MD Cervical Spine X-Ray 06/10/17 0000 Signed Impressions: Service Date/Time: June 17:43 - CONCLUSION: The alignment of the cervical spine is maintained in flexion and extension. Arun Regan MD Pelvis X-Ray 06/09/17 1454 Signed Impressions: Service Date/Time: Friday, June 09, 2017 14:37 - CONCLUSION: 1. Right-sided pubic rami fractures, as above. Lj Cunningham MD Maxillofacial CT 06/09/17 1454 Signed Impressions: Service Date/Time: Friday, June 09, 2017 14:56 - CONCLUSION: 1. Acute nasal bone fractures bilaterally. 2. Soft tissue defect involving the forehead with tiny radiopaque densities associated with this. 3. Left periorbital soft tissue swelling. Arun Ramirez Jr., MD Head CT 06/09/17 1454 Signed Impressions: Service Date/Time: Friday, June 09, 2017 14:54 - CONCLUSION: Bifrontal parenchymal hemorrhage small parafalcine subdural with minimal localized mass effect. Trace intraventricular blood. Vimal Taylor MD FACR Chest CT 06/09/17 145 Signed Impressions: Service Date/Time: Friday, June 09, 2017 15:03 - CONCLUSION: 1. Right sixth rib fracture. 2. Questionable L1 left transverse process fracture. 3. Cardiomegaly. Arun Ramirez Jr., MD Cervical Spine CT 06/09/17 145 Signed Impressions: Service Date/Time: Friday, June 09, 2017 14:56 - CONCLUSION: 1. Acute fracture of C6 inferior endplate with exaggerated lordosis consistent with hyper extension injury. 2. Fracture involving the spinous process of C4. 3. Subluxation of C1-C2. 4. I spoke with concerning the findings. Arun Ramirez Jr., MD Abdomen/Pelvis CT 06/09/17 145 Signed Impressions: Service Date/Time: Friday, June 09, 2017 14:59 - CONCLUSION: Nondisplaced ramus fracture on the right otherwise negative for acute traumatic injury.. Lack of intravenous contrast does make detection of subtle organ injury difficult. Vimal Taylor MD FACR Cervical Spine MRI 06/09/17 0000 Signed Impressions: Service Date/Time: Friday, June 09, 2017 17:28 - CONCLUSION: 1. Soft tissue swelling anterior to the lower cervical spine related to a small fracture of the anterior-inferior endplate of C6. There is also some T2 prolongation within the C6-C7 disc, possibly representing hemorrhage. 2. Left paracentral bulging of the C3-4 disc and mild central protrusion of the C5-6 disc, without significant deformity of the thecal sac at either these levels. No cerebral abnormality seen within the cervical cord. 3. Mild increased C1-2 distance, but no signal abnormalities in the osseous structures or surrounding soft tissues. 4. Soft tissue edema about the spinous process fracture C4. Arun Regan MD ADDENDUM: Comparing the MRI study to the flexion-extension films the increased signal in the C6-C7 disc as well as the teardrop fracture would suggest tear of the anterior longitudinal ligament. This patient would be at risk for significant delayed instability. Findings discussed with Dr. nunn on today's date. Vimal Taylor MD FACR Narrative Exam GENERAL: 57-year-old disheveled female lying in bed with [place] J collar on. SKIN: Warm and dry. Periorbital edema. Left frontal sutures well approximated. Multiple abrasions noted to face. HEAD: Normocephalic. ENT: No nasal bleeding or discharge. Mucous membranes pink and moist. NECK: Trachea midline. No JVD. [place] J collar in place. CARDIOVASCULAR: Regular rate and rhythm. RESPIRATORY: No accessory muscle use. Lungs clear and diminished to auscultation. Breath sounds equal bilaterally. GASTROINTESTINAL: Abdomen soft, non-tender, nondistended. + BS. MUSCULOSKELETAL: Extremities without cyanosis, or edema. MAEW. NEUROLOGICAL: Awake and alert. Normal speech. Some confusion and repetition A/P Assessment and Plan INJURIES: Facial lac Bifrontal IPH SDH IVH Nasal fx C6 fx C1-C2 subluxation C4 transverse process fx RIGHT rib fx (6) L1 transverse process fx RIGHT pubic rami fx (non-op) PMHx: ETOH 06/11: C6-7 anterior cervical discectomy fusion Diet: Heart healthy-pureed-- ST cognitive Pulm: IS Pain: Percocet, Morphine IV, Robaxin, Lidoderm patch Activity: OOB. PT and OT ordered. ("limited" WB RLE) GI: PO Protonix Bowel: Ciara-colace, Lactulose. LBM 06/14 DVT: SCDs Facial lac Supportive care DC sutures today Cleanse daily with soap and water, leave open to air Bifrontal IPH, SDH, C6 fx, C1-C2 subluxation, C4 transverse process fx Neurosurgery consulted Serial neuro checks Maintain [place] J 06/11: C6-7 anterior cervical discectomy fusion PO Keppra for seizure prophylaxis x7 days Neuropsychology consulted STcognitive eval OOB IV Decadron 4mg q6- decreased to BID NS cleared for DC Nasal fx Supportive care Follow-up with OMFS as outpatient RIGHT rib fx, L1 transverse process fx Supportive care Pain control Pulmonary toileting OOBPT RIGHT pubic rami fx Orthopedics consulted Nonoperative management Pain control Limited weightbearing RLE OOBPT increased to 7 days/week HTN HEPAS consulted for medical management ETOH abuse MVI, Thiamine, Folate PO Supportive care Monitor for DTs PRN Ativan for withdrawal Plan of care discussed with patient at bedside. Case management consulted to assist with discharge planning. Patient is homeless and is unclear where she will be residing when she is discharged. CM to assess patient for [facility] long-term. Chloé Dalal AVIATION MANAGER Jun 15, 2017 14:11
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
[2017-06-15] MEDS: PANTOPRAZOLE SOD 40 MG DELAYED RELEASE TAB PO SCH (16:47)
[2017-06-16 00:15] VITALS: BP 158/88; PULSE 68; RESP 19; TEMP 98.1; O2SAT 95
[2017-06-16] MEDS: ENOXAPARIN SODIUM 30 MG/0.3 ML SYRINGE SQ SCH ×2 (01:08→11:59)
[2017-06-16] MEDS: oxyCODONE/ACETAMINOPHEN 10 MG/325 MG TAB PO PRN ×4 (01:09→18:11)
[2017-06-16 05:00] VITALS: BP 152/80; PULSE 68; RESP 19; TEMP 97.3; O2SAT 95
[2017-06-16] MEDS: METHOCARBAMOL 500 MG TAB PO SCH ×3 (06:07→20:52)
[2017-06-16 08:00] VITALS: BP 147/80; PULSE 69; RESP 17; TEMP 97.9; O2SAT 94
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
[2017-06-16] MEDS: LABETALOL HCL 100 MG TAB PO SCH ×2 (08:42→20:52)
[2017-06-16] MEDS: THIAMINE HCL 100 MG TAB PO SCH (08:42)
[2017-06-16] MEDS: LIDOCAINE HCL 5% PATCH T-DERMAL SCH (08:42)
[2017-06-16] MEDS: levETIRAcetam 500 MG TAB PO SCH (08:42)
[2017-06-16] MEDS: MULTIVITAMIN TAB PO SCH (08:42)
[2017-06-16] MEDS: REMOVE OLD LIDOCAINE PATCH T-DERMAL SCH (08:42)
[2017-06-16] MEDS: amLODIPine BESYLATE 5 MG TAB PO SCH (08:42)
[2017-06-16] MEDS: LISINOPRIL 20 MG TAB PO SCH (08:42)
[2017-06-16] MEDS: SODIUM CHLORIDE 0.9% FLUSH 10 ML FLUSH IV FLUSH SCH ×2 (08:43→20:53)
[2017-06-16] MEDS: FOLIC ACID 1 MG TAB PO SCH (08:43)
[2017-06-16] MEDS: BACITRACIN TOP OINT 15 GM TUBE TOPICAL SCH ×2 (08:43→20:53)
[2017-06-16] MEDS: DEXAMETHASONE SOD PHOS 4 MG/ML VIAL IV SCH ×2 (08:43→20:53)
[2017-06-16] MEDS: LACTULOSE SYRUP 20 GM/30 ML CUP PO SCH (08:43)
[2017-06-16] MEDS: DOCUSATE SODIUM 50 MG/SENNA 8.6 MG TAB PO SCH ×2 (08:43→20:52)
[2017-06-16] MEDS ORDERED: OXYC1TAB36 PO (11:10)
[2017-06-16] MEDS ORDERED: LISI-515 PO (11:33)
[2017-06-16] MEDS ORDERED: AMLO5 PO (11:33)
[2017-06-16] MEDS ORDERED: METH500T3 PO (11:33)
[2017-06-16] MEDS ORDERED: LABE100T2 PO (11:33)
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
[2017-06-16 12:00] VITALS: BP 132/79; PULSE 72; RESP 16; TEMP 98.2; O2SAT 97
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
[2017-06-16] MEDS: PANTOPRAZOLE SOD 40 MG DELAYED RELEASE TAB PO SCH (16:06)
[2017-06-16 20:00] VITALS: BP 160/87; PULSE 72; RESP 20; TEMP 98.4; O2SAT 94
[2017-06-17] VITALS: BP 154/93; PULSE 75; RESP 20; TEMP 98.5; O2SAT 92
[2017-06-17] MEDS: ENOXAPARIN SODIUM 30 MG/0.3 ML SYRINGE SQ SCH ×2 (00:10→11:56)
[2017-06-17] MEDS: oxyCODONE/ACETAMINOPHEN 10 MG/325 MG TAB PO PRN ×4 (00:11→16:24)
[2017-06-17 04:00] VITALS: BP 154/89; PULSE 66; RESP 20; TEMP 98; O2SAT 93
[2017-06-17] MEDS: METHOCARBAMOL 500 MG TAB PO SCH ×2 (05:58→12:37)
[2017-06-17 08:00] VITALS: BP 179/92; PULSE 72; RESP 19; TEMP 97.9; O2SAT 99
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
[2017-06-17] MEDS: LACTULOSE SYRUP 20 GM/30 ML CUP PO SCH (09:00)
[2017-06-17] MEDS: SODIUM CHLORIDE 0.9% FLUSH 10 ML FLUSH IV FLUSH SCH (09:00)
[2017-06-17] MEDS: REMOVE OLD LIDOCAINE PATCH T-DERMAL SCH (09:00)
[2017-06-17] MEDS: DOCUSATE SODIUM 50 MG/SENNA 8.6 MG TAB PO SCH (09:00)
[2017-06-17] MEDS: THIAMINE HCL 100 MG TAB PO SCH (09:47)
[2017-06-17] MEDS: FOLIC ACID 1 MG TAB PO SCH (09:47)
[2017-06-17] MEDS: LISINOPRIL 20 MG TAB PO SCH (09:47)
[2017-06-17] MEDS: LABETALOL HCL 100 MG TAB PO SCH (09:47)
[2017-06-17] MEDS: DEXAMETHASONE SOD PHOS 4 MG/ML VIAL IV SCH (09:47)
[2017-06-17] MEDS: amLODIPine BESYLATE 5 MG TAB PO SCH (09:47)
[2017-06-17] MEDS: MULTIVITAMIN TAB PO SCH (09:47)
[2017-06-17] MEDS: LIDOCAINE HCL 5% PATCH T-DERMAL SCH (09:48)
[2017-06-17] MEDS: BACITRACIN TOP OINT 15 GM TUBE TOPICAL SCH (09:48)
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
[2017-06-17] MEDS ORDERED: LABETALOL HCL 100 MG TAB PO ONE (11:30)
[2017-06-17 12:00] VITALS: BP 149/80; PULSE 67; RESP 17; TEMP 98.3; O2SAT 93
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
[2017-06-17 16:00] VITALS: BP 133/72; PULSE 79; RESP 17; TEMP 97.7; O2SAT 96
[2017-06-17] MEDS: FLUoxetine HCL 20 MG CAP PO SCH (16:23)
[2017-06-17] MEDS: PANTOPRAZOLE SOD 40 MG DELAYED RELEASE TAB PO SCH (16:23)
[2017-06-18] MEDS: ENOXAPARIN SODIUM 30 MG/0.3 ML SYRINGE SQ SCH ×3 (00:26→23:56)
[2017-06-18] MEDS: SODIUM CHLORIDE 0.9% FLUSH 10 ML FLUSH IV FLUSH SCH ×3 (00:26→23:56)
[2017-06-18] MEDS: BACITRACIN TOP OINT 15 GM TUBE TOPICAL SCH ×3 (00:27→23:56)
[2017-06-18] MEDS: METHOCARBAMOL 500 MG TAB PO SCH ×4 (00:27→23:49)
[2017-06-18] MEDS: LABETALOL HCL 200 MG TAB PO SCH ×3 (00:27→23:49)
[2017-06-18] MEDS: DOCUSATE SODIUM 50 MG/SENNA 8.6 MG TAB PO SCH ×3 (00:27→23:49)
[2017-06-18 00:30] VITALS: BP 153/78; PULSE 63; RESP 17; TEMP 98.3; O2SAT 95
[2017-06-18 04:30] VITALS: BP 171/90; PULSE 66; RESP 16; TEMP 98.6; O2SAT 95
[2017-06-18] MEDS: oxyCODONE/ACETAMINOPHEN 10 MG/325 MG TAB PO PRN ×3 (07:42→23:48)
[2017-06-18 08:00] VITALS: BP 144/80; PULSE 67; RESP 20; TEMP 98.3; O2SAT 93
[2017-06-18] MEDS: LISINOPRIL 20 MG TAB PO SCH (08:53)
[2017-06-18] MEDS: LACTULOSE SYRUP 20 GM/30 ML CUP PO SCH (08:53)
[2017-06-18] MEDS: FOLIC ACID 1 MG TAB PO SCH (08:53)
[2017-06-18] MEDS: FLUoxetine HCL 20 MG CAP PO SCH (08:53)
[2017-06-18] MEDS: THIAMINE HCL 100 MG TAB PO SCH (08:53)
[2017-06-18] MEDS: MULTIVITAMIN TAB PO SCH (08:53)
[2017-06-18] MEDS: LIDOCAINE HCL 5% PATCH T-DERMAL SCH (08:54)
[2017-06-18] MEDS: REMOVE OLD LIDOCAINE PATCH T-DERMAL SCH (08:54)
[2017-06-18] MEDS: amLODIPine BESYLATE 5 MG TAB PO SCH (08:54)
[2017-06-18] MEDS ORDERED: DEXAMETHASONE SOD PHOS 4 MG/ML VIAL IV SCH (09:00)
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
[2017-06-18 12:00] VITALS: BP 131/73; PULSE 58; RESP 18; TEMP 98.3; O2SAT 94
[2017-06-18 16:00] VITALS: BP 158/93; PULSE 67; RESP 16; TEMP 98.1; O2SAT 94
[2017-06-18] MEDS: PANTOPRAZOLE SOD 40 MG DELAYED RELEASE TAB PO SCH (16:30)
[2017-06-18 20:00] VITALS: BP 142/79; PULSE 69; RESP 18; TEMP 98.4; O2SAT 97
[2017-06-19] VITALS: BP 154/72; PULSE 61; RESP 20; TEMP 98.1; O2SAT 95
[2017-06-19 04:00] VITALS: BP 140/77; PULSE 60; RESP 20; TEMP 98.3; O2SAT 95
[2017-06-19] MEDS: METHOCARBAMOL 500 MG TAB PO SCH ×3 (06:27→21:56)
[2017-06-19 08:00] VITALS: BP 133/76; PULSE 66; RESP 15; TEMP 97.9; O2SAT 95
[2017-06-19] MEDS: SODIUM CHLORIDE 0.9% FLUSH 10 ML FLUSH IV FLUSH SCH ×2 (08:37→21:00)
[2017-06-19] MEDS: amLODIPine BESYLATE 5 MG TAB PO SCH (08:38)
[2017-06-19] MEDS: THIAMINE HCL 100 MG TAB PO SCH (08:38)
[2017-06-19] MEDS: FLUoxetine HCL 20 MG CAP PO SCH (08:38)
[2017-06-19] MEDS: DOCUSATE SODIUM 50 MG/SENNA 8.6 MG TAB PO SCH ×2 (08:38→21:56)
[2017-06-19] MEDS: MULTIVITAMIN TAB PO SCH (08:38)
[2017-06-19] MEDS: LISINOPRIL 20 MG TAB PO SCH (08:38)
[2017-06-19] MEDS: LACTULOSE SYRUP 20 GM/30 ML CUP PO SCH (08:38)
[2017-06-19] MEDS: LABETALOL HCL 200 MG TAB PO SCH ×2 (08:38→22:00)
[2017-06-19] MEDS: oxyCODONE/ACETAMINOPHEN 10 MG/325 MG TAB PO PRN ×2 (08:39→21:57)
[2017-06-19] MEDS: REMOVE OLD LIDOCAINE PATCH T-DERMAL SCH (08:39)
[2017-06-19] MEDS: LIDOCAINE HCL 5% PATCH T-DERMAL SCH (08:39)
[2017-06-19] MEDS: FOLIC ACID 1 MG TAB PO SCH (08:39)
[2017-06-19] MEDS: BACITRACIN TOP OINT 15 GM TUBE TOPICAL SCH ×2 (08:39→21:00)
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
[2017-06-19 12:00] VITALS: BP 121/71; PULSE 59; RESP 12; TEMP 98.1; O2SAT 94
[2017-06-19] MEDS: ENOXAPARIN SODIUM 30 MG/0.3 ML SYRINGE SQ SCH (12:25)
[2017-06-19] MEDS ORDERED: SENN1TAB PO (13:15)
[2017-06-19] MEDS ORDERED: FLUO20CA12 PO (13:15)
[2017-06-19] MEDS ORDERED: WALKER WHEELS/F1 MIS (13:18)
[2017-06-19 16:00] VITALS: BP 125/71; PULSE 59; RESP 13; TEMP 97.9; O2SAT 95
[2017-06-19] MEDS: PANTOPRAZOLE SOD 40 MG DELAYED RELEASE TAB PO SCH (16:36)
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
[2017-06-19 20:41] VITALS: BP 125/70; PULSE 67; RESP 21; TEMP 97.4; O2SAT 100
[2017-06-20] MEDS ORDERED: DEXTROSE 50% IN WATER 50 ML VIAL(D50) IV PRN (00:15)
[2017-06-20] MEDS ORDERED: GLUCAGON 1 MG/ML VIAL OTHER PRN (00:15)
[2017-06-20] MEDS: ENOXAPARIN SODIUM 30 MG/0.3 ML SYRINGE SQ SCH ×2 (00:32→11:04)
[2017-06-20 01:48] VITALS: BP 105/64; PULSE 68; RESP 18; TEMP 97.6; O2SAT 100
[2017-06-20 03:51] VITALS: BP 135/54; PULSE 68; RESP 18; TEMP 98.1; O2SAT 100
[2017-06-20] MEDS: METHOCARBAMOL 500 MG TAB PO SCH ×3 (05:28→20:30)
[2017-06-20] MEDS: INSULIN ASPART SUPPLEMENTAL SCALE SQ SCH ×4 (06:35→20:30)
[2017-06-20 08:02] VITALS: BP 138/83; PULSE 62; RESP 18; TEMP 98.3; O2SAT 95
[2017-06-20] MEDS: SODIUM CHLORIDE 0.9% FLUSH 10 ML FLUSH IV FLUSH SCH ×2 (09:00→20:30)
[2017-06-20] MEDS: BACITRACIN TOP OINT 15 GM TUBE TOPICAL SCH ×2 (09:00→20:30)
[2017-06-20] MEDS: REMOVE OLD LIDOCAINE PATCH T-DERMAL SCH (09:00)
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
[2017-06-20] MEDS: FLUoxetine HCL 20 MG CAP PO SCH (11:05)
[2017-06-20] MEDS: amLODIPine BESYLATE 5 MG TAB PO SCH (11:05)
[2017-06-20] MEDS: FOLIC ACID 1 MG TAB PO SCH (11:06)
[2017-06-20] MEDS: DOCUSATE SODIUM 50 MG/SENNA 8.6 MG TAB PO SCH ×2 (11:06→20:30)
[2017-06-20] MEDS: THIAMINE HCL 100 MG TAB PO SCH (11:06)
[2017-06-20] MEDS: LACTULOSE SYRUP 20 GM/30 ML CUP PO SCH (11:11)
[2017-06-20] MEDS: LISINOPRIL 20 MG TAB PO SCH (11:11)
[2017-06-20] MEDS: LABETALOL HCL 200 MG TAB PO SCH ×2 (11:15→20:30)
[2017-06-20] MEDS: MULTIVITAMIN TAB PO SCH (11:15)
[2017-06-20 12:08] VITALS: BP 149/71; PULSE 76; RESP 18; TEMP 97.9; O2SAT 99
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
[2017-06-20 16:20] VITALS: BP 132/77; PULSE 62; RESP 18; TEMP 98.6; O2SAT 94
[2017-06-20] MEDS: LIDOCAINE HCL 5% PATCH T-DERMAL SCH (16:30)
[2017-06-20] MEDS: PANTOPRAZOLE SOD 40 MG DELAYED RELEASE TAB PO SCH (16:41)
[2017-06-20 20:24] VITALS: BP 130/71; PULSE 68; RESP 18; TEMP 98; O2SAT 98
[2017-06-20] MEDS: oxyCODONE/ACETAMINOPHEN 10 MG/325 MG TAB PO PRN (20:30)
[2017-06-20 21:06] LABS: MEAN CORPUSCULAR HGB CONC 36.7 % (32.0-36.0)
[2017-06-21] VITALS: BP 128/72; PULSE 67; RESP 18; TEMP 98.1; O2SAT 98
[2017-06-21] MEDS: ENOXAPARIN SODIUM 30 MG/0.3 ML SYRINGE SQ SCH ×2 (00:18→12:36)
[2017-06-21 04:00] VITALS: BP 110/61; PULSE 18; RESP 59; TEMP 97.9; O2SAT 96
[2017-06-21] MEDS: METHOCARBAMOL 500 MG TAB PO SCH ×3 (05:59→20:01)
[2017-06-21] MEDS: INSULIN ASPART SUPPLEMENTAL SCALE SQ SCH ×4 (06:01→20:07)
[2017-06-21 08:00] VITALS: BP 119/69; PULSE 56; RESP 18; TEMP 97.6; O2SAT 95
[2017-06-21] MEDS: amLODIPine BESYLATE 5 MG TAB PO SCH (09:00)
[2017-06-21] MEDS: LISINOPRIL 20 MG TAB PO SCH (09:00)
[2017-06-21] MEDS: REMOVE OLD LIDOCAINE PATCH T-DERMAL SCH (09:00)
[2017-06-21] MEDS: BACITRACIN TOP OINT 15 GM TUBE TOPICAL SCH (09:00)
[2017-06-21] MEDS: LACTULOSE SYRUP 20 GM/30 ML CUP PO SCH (09:00)
[2017-06-21] MEDS: SODIUM CHLORIDE 0.9% FLUSH 10 ML FLUSH IV FLUSH SCH ×2 (09:00→20:04)
[2017-06-21] MEDS: DOCUSATE SODIUM 50 MG/SENNA 8.6 MG TAB PO SCH ×2 (09:00→20:01)
[2017-06-21] MEDS: MULTIVITAMIN TAB PO SCH (09:33)
[2017-06-21] MEDS: FOLIC ACID 1 MG TAB PO SCH (09:33)
[2017-06-21] MEDS: THIAMINE HCL 100 MG TAB PO SCH (09:33)
[2017-06-21] MEDS: LABETALOL HCL 200 MG TAB PO SCH ×2 (09:33→20:02)
[2017-06-21] MEDS: FLUoxetine HCL 20 MG CAP PO SCH (09:33)
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
[2017-06-21] MEDS: LIDOCAINE HCL 5% PATCH T-DERMAL SCH (09:42)
[2017-06-21 10:47] LABS: HEMATOCRIT 28.8 % (35.0-46.0); MEAN CELL VOLUME 104.8 FL (80.0-100.0); MEAN CORPUSCULAR HEMOGLOBIN 38.5 PG (27.0-34.0); PLATELET COUNT 609 TH/MM3 (150-450); RED BLOOD COUNT 2.75 MIL/MM3 (4.00-5.30); RED CELL DISTRIBUTION WIDTH 14.2 % (11.6-17.2); WHITE BLOOD COUNT 10.8 TH/MM3 (4.0-11.0)
[2017-06-21 10:54] LABS: REVIEW FLAG FINAL
[2017-06-21 10:59] LABS: BICARBONATE 24.3 MEQ/L (21.0-32.0); POTASSIUM 4.1 MEQ/L (3.5-5.1)
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
[2017-06-21 12:00] VITALS: BP 129/66; PULSE 59; RESP 14; TEMP 98.3; O2SAT 95
[2017-06-21 16:00] VITALS: BP 120/72; PULSE 67; RESP 14; TEMP 97.5; O2SAT 96
[2017-06-21] MEDS: PANTOPRAZOLE SOD 40 MG DELAYED RELEASE TAB PO SCH (17:25)
[2017-06-21 17:57] LABS: HEMOGLOBIN A1a 1.1 %
[2017-06-21 17:58] LABS: HEMOGLOBIN A1b 1.1 %; HEMOGLOBIN Ao 88.1 %; HEMOGLOBIN F 0.2 %; HEMOGLOBIN LA1C 1.5 %
[2017-06-21 20:00] VITALS: BP_SYST 116; BP_SYST 121; BP_DIAS 60; BP_DIAS 80; PULSE 59; PULSE 71; RESP 18; TEMP 98.5; O2SAT 94; O2SAT 96
[2017-06-21] MEDS: oxyCODONE/ACETAMINOPHEN 10 MG/325 MG TAB PO PRN (20:03)
[2017-06-22] MEDS: ENOXAPARIN SODIUM 30 MG/0.3 ML SYRINGE SQ SCH (00:48)
[2017-06-22] MEDS: BACITRACIN TOP OINT 15 GM TUBE TOPICAL SCH ×2 (00:48→08:51)
[2017-06-22 04:00] VITALS: BP 125/63; PULSE 60; RESP 20; TEMP 97.6; O2SAT 94
[2017-06-22] MEDS: INSULIN ASPART SUPPLEMENTAL SCALE SQ SCH (06:12)
[2017-06-22] MEDS: METHOCARBAMOL 500 MG TAB PO SCH (06:13)
[2017-06-22 08:00] VITALS: BP 128/74; PULSE 74; RESP 16; TEMP 98.1; O2SAT 94
[2017-06-22] MEDS: amLODIPine BESYLATE 5 MG TAB PO SCH (08:49)
[2017-06-22] MEDS: DOCUSATE SODIUM 50 MG/SENNA 8.6 MG TAB PO SCH (08:49)
[2017-06-22] MEDS: MULTIVITAMIN TAB PO SCH (08:49)
[2017-06-22] MEDS: LABETALOL HCL 200 MG TAB PO SCH (08:49)
[2017-06-22] MEDS: THIAMINE HCL 100 MG TAB PO SCH (08:50)
[2017-06-22] MEDS: LISINOPRIL 20 MG TAB PO SCH (08:50)
[2017-06-22] MEDS: SODIUM CHLORIDE 0.9% FLUSH 10 ML FLUSH IV FLUSH SCH (08:50)
[2017-06-22] MEDS: FOLIC ACID 1 MG TAB PO SCH (08:50)
[2017-06-22] MEDS: FLUoxetine HCL 20 MG CAP PO SCH (08:50)
[2017-06-22] MEDS: REMOVE OLD LIDOCAINE PATCH T-DERMAL SCH (08:51)
[2017-06-22] MEDS: LIDOCAINE HCL 5% PATCH T-DERMAL SCH (08:51)
[2017-06-22] MEDS: LACTULOSE SYRUP 20 GM/30 ML CUP PO SCH (08:51)
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
== END 2017-06-22 10:03 | disposition home or self-care (01) | DRG 958 ==
LOC: NEPI 14:44 → EDBD 15:14 → NEDA 15:14 → N03A 16:10 → N05B 06-10 19:16
PROVIDERS: ADMIT Surgery; ATTEND Surgery
PROC: 09QKXZZ Repair Nasal Mucosa and Soft Tissue, External Approach (ICD-10-PCS; 2017-06-09)
PROC: 0HQLXZZ Repair Left Lower Leg Skin, External Approach (ICD-10-PCS; 2017-06-09)
PROC: 0HQ1XZZ Repair Face Skin, External Approach (ICD-10-PCS; 2017-06-09)
PROC: 0RB30ZZ Excision of Cervical Vertebral Disc, Open Approach (ICD-10-PCS; 2017-06-11)
PROC: 01N10ZZ Release Cervical Nerve, Open Approach (ICD-10-PCS; 2017-06-11)
PROC: 0RG10A0 Fusion of Cervical Vertebral Joint with Interbody Fusion Device, Anterior Approach, Anterior Column, Open Approach (ICD-10-PCS; principal; 2017-06-11 14:08)
DX: S12.500A Unspecified displaced fracture of sixth cervical vertebra, initial encounter for closed fracture (principal); S06.5X9A Traumatic subdural hemorrhage with loss of consciousness of unspecified duration, initial encounter; S32.511A Fracture of superior rim of right pubis, initial encounter for closed fracture; S32.018A Other fracture of first lumbar vertebra, initial encounter for closed fracture; S13.4XXA Sprain of ligaments of cervical spine, initial encounter; S06.369A Traumatic hemorrhage of cerebrum, unspecified, with loss of consciousness of unspecified duration, initial encounter; S22.31XA Fracture of one rib, right side, initial encounter for closed fracture; S02.2XXB Fracture of nasal bones, initial encounter for open fracture; S13.0XXA Traumatic rupture of cervical intervertebral disc, initial encounter; S12.300A Unspecified displaced fracture of fourth cervical vertebra, initial encounter for closed fracture; S13.120A Subluxation of C1/C2 cervical vertebrae, initial encounter; S01.112A Laceration without foreign body of left eyelid and periocular area, initial encounter; I10 Essential (primary) hypertension; D64.9 Anemia, unspecified; F17.210 Nicotine dependence, cigarettes, uncomplicated; S01.81XA Laceration without foreign body of other part of head, initial encounter; S91.012A Laceration without foreign body, left ankle, initial encounter; R73.9 Hyperglycemia, unspecified; D63.8 Anemia in other chronic diseases classified elsewhere; F10.20 Alcohol dependence, uncomplicated; F32.9 Major depressive disorder, single episode, unspecified; S01.01XA Laceration without foreign body of scalp, initial encounter; R40.2410 Glasgow coma scale score 13-15, unspecified time; Z68.20 Body mass index [BMI] 20.0-20.9, adult; V81.6XXA Occupant of railway train or railway vehicle injured by fall from railway train or railway vehicle, initial encounter; Z59.0 Homelessness
CPT/HCPCS: 12002; 12011; 12054; 70450; 70486; 71010; 71250; 72020; 72040; 72125; 72141; 72170; 74176; 76000; 76937; 80048; 80053; 82435; 82550; 82552; 82565; 82607; 82728; 82746; 82947; 82948; 83036; 83540; 83550; 84132; 84295; 84520; 85007; 85025; 85027; 85610; 85730; 86850; 86900; 86901; 87641; 90471; 93005; 94150; 96374; 96375; 99291; C1713; G0390; J0690; J1100; J1580; J1650; J1815; J2060; J2250; J2270; J2405; J2710; J3010; J3370; J3411; J7030; J7040; J7120; L0150; L0172

== ENCOUNTER 2017-06-22 11:55 | Inpatient (IN) | payer MEDICAID, OTHER ==
[2017-06-22] VITALS (7 sets, daily range): BP systolic 90–208; BP diastolic 52–90; PULSE 57–72; RESP 16–19; TEMP 96.8–97.5; O2SAT 95–100
[~2017-06-22] VITALS: Ht 157.5 cm; Wt 66.0 kg
[~2017-06-22 11:55] MED LIST: AMLO5 PO; FLUO20CA12 PO; LABE100T2 PO; LISI-515 PO; METH500T3 PO; OXYC1TAB36 PO; SENN1TAB PO; WALKER WHEELS/F1 MIS
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
[2017-06-22] MEDS ORDERED: LACTULOSE SYRUP 20 GM/30 ML CUP PO PRN (17:00)
[2017-06-22] MEDS ORDERED: ONDANSETRON HCL 4 MG/2 ML VIAL IVP PRN (17:00)
[2017-06-22] MEDS ORDERED: MAGNESIUM HYDROXIDE SUSP 30 ML CUP PO PRN (17:00)
[2017-06-22] MEDS ORDERED: BISACODYL 10 MG SUPP RECTAL PRN (17:00)
[2017-06-22] MEDS ORDERED: NALOXONE HCL 0.4 MG/ML AMP IV PRN (17:00)
[2017-06-22] MEDS ORDERED: SENNOSIDES 8.6 MG TAB PO PRN (17:00)
[2017-06-22] MEDS ORDERED: SODIUM CHLORIDE 0.9% FLUSH 10 ML FLUSH IV FLUSH PRN (17:00)
[2017-06-22] MEDS ORDERED: PROCHLORPERAZINE 25 MG SUPP RECTAL PRN (17:00)
[2017-06-22] MEDS ORDERED: oxyCODONE/ACETAMINOPHEN 5 MG/325 MG TAB PO PRN (17:00)
[2017-06-22] MEDS ORDERED: MORPHINE SULFATE 4 MG/ML INJ IV PRN ×3 (17:00)
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
[2017-06-22] MEDS ORDERED: DOCUSATE SODIUM 50 MG/SENNA 8.6 MG TAB PO SCH (21:00)
[2017-06-22] MEDS: DOCUSATE SODIUM 50 MG/SENNA 8.6 MG TAB PO SCH (21:00)
[2017-06-22] MEDS: LABETALOL HCL 100 MG TAB PO SCH (22:21)
[2017-06-22] MEDS: SODIUM CHLORIDE 0.9% FLUSH 10 ML FLUSH IV FLUSH SCH (22:21)
[2017-06-22] MEDS: METHOCARBAMOL 500 MG TAB PO SCH (23:36)
[2017-06-23] VITALS (13 sets, daily range): BP systolic 108–125; BP diastolic 62–73; PULSE 54–87; RESP 16–18; TEMP 97.4–98.8; O2SAT 94–98
[2017-06-23] MEDS: METHOCARBAMOL 500 MG TAB PO SCH ×3 (06:17→23:13)
[2017-06-23 06:43] LABS: AUTOMATED NEUTROPHIL # 5.5 TH/MM3 (1.8-7.7); BASOPHIL # 0.1 TH/MM3 (0-0.2); BASOPHIL % 1.2 % (0.0-2.0); EOSINOPHIL # 0.1 TH/MM3 (0-0.4); EOSINOPHIL % 1.2 % (0.0-4.0); HEMATOCRIT 30.7 % (35.0-46.0); HEMOGLOBIN 10.3 GM/DL (11.6-15.3); LYMPH % 24.2 % (9.0-44.0); MEAN CELL VOLUME 105.4 FL (80.0-100.0); MEAN CORPUSCULAR HEMOGLOBIN 35.5 PG (27.0-34.0); MEAN CORPUSCULAR HGB CONC 33.7 % (32.0-36.0); MEAN PLATELET VOLUME 6.7 FL (7.0-11.0); MONO % 6.9 % (0.0-8.0); MONOCYTE # 0.6 TH/MM3 (0-0.9); NEUT % 66.5 % (16.0-70.0); PLATELET COUNT 662 TH/MM3 (150-450); RED BLOOD COUNT 2.91 MIL/MM3 (4.00-5.30); RED CELL DISTRIBUTION WIDTH 13.9 % (11.6-17.2); WHITE BLOOD COUNT 8.2 TH/MM3 (4.0-11.0)
[2017-06-23 07:03] LABS: ALBUMIN 3.2 GM/DL (3.4-5.0); AST (GOT) 11 U/L (15-37); BICARBONATE 24.8 MEQ/L (21.0-32.0); BLOOD UREA NITROGEN 17 MG/DL (7-18); CALCIUM 9.2 MG/DL (8.5-10.1); CHLORIDE 102 MEQ/L (98-107); GLOMERULAR FILTRATION RATE 104 ML/MIN (>89); GLUCOSE,RANDOM 85 MG/DL (74-106); MAGNESIUM 2.1 MG/DL (1.5-2.5); SODIUM (NA) 136 MEQ/L (136-145)
[2017-06-23 07:06] LABS: ALKALINE PHOSPHATASE 120 U/L (45-117); ALT (GPT) 16 U/L (10-53); PHOSPHORUS 3.4 MG/DL (2.5-4.9); TOTAL BILIRUBIN ADULT 0.7 MG/DL (0.2-1.0); TOTAL PROTEIN 6.7 GM/DL (6.4-8.2)
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
[2017-06-23] MEDS: LABETALOL HCL 100 MG TAB PO SCH ×2 (09:00→20:19)
[2017-06-23] MEDS: DOCUSATE SODIUM 50 MG/SENNA 8.6 MG TAB PO SCH ×2 (09:00→20:20)
[2017-06-23] MEDS: LISINOPRIL 20 MG TAB PO SCH (09:29)
[2017-06-23] MEDS: FLUoxetine HCL 20 MG CAP PO SCH (09:29)
[2017-06-23] MEDS: SODIUM CHLORIDE 0.9% FLUSH 10 ML FLUSH IV FLUSH SCH ×2 (09:29→20:19)
[2017-06-24] VITALS (8 sets, daily range): BP systolic 97–123; BP diastolic 56–76; PULSE 54–74; RESP 17–18; TEMP 96.4–98.8; O2SAT 95–99
[2017-06-24] MEDS: METHOCARBAMOL 500 MG TAB PO SCH ×3 (05:28→21:36)
[2017-06-24] MEDS: LABETALOL HCL 100 MG TAB PO SCH ×2 (09:00→21:27)
[2017-06-24] MEDS: DOCUSATE SODIUM 50 MG/SENNA 8.6 MG TAB PO SCH ×2 (09:00→21:36)
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
[2017-06-24] MEDS: FLUoxetine HCL 20 MG CAP PO SCH (09:27)
[2017-06-24] MEDS: LISINOPRIL 20 MG TAB PO SCH (09:28)
[2017-06-24] MEDS: SODIUM CHLORIDE 0.9% FLUSH 10 ML FLUSH IV FLUSH SCH ×2 (09:28→21:36)
[2017-06-25] VITALS: BP 128/67; PULSE 57; PULSE 59; RESP 17; TEMP 96.2; O2SAT 96
[2017-06-25 04:00] VITALS: BP 116/69; PULSE 55; PULSE 88; RESP 17; TEMP 98.3; O2SAT 93
[2017-06-25] MEDS: METHOCARBAMOL 500 MG TAB PO SCH ×3 (05:44→21:28)
[2017-06-25 08:00] VITALS: BP 125/77; PULSE 64; PULSE 67; RESP 16; TEMP 97.3; O2SAT 95
[2017-06-25] MEDS: LISINOPRIL 20 MG TAB PO SCH (08:30)
[2017-06-25] MEDS: FLUoxetine HCL 20 MG CAP PO SCH (08:30)
[2017-06-25] MEDS: LABETALOL HCL 100 MG TAB PO SCH ×2 (08:30→21:00)
[2017-06-25] MEDS: DOCUSATE SODIUM 50 MG/SENNA 8.6 MG TAB PO SCH ×2 (08:30→21:24)
[2017-06-25] MEDS: SODIUM CHLORIDE 0.9% FLUSH 10 ML FLUSH IV FLUSH SCH ×2 (08:30→21:24)
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
[2017-06-25 12:00] VITALS: BP 100/60; PULSE 60; PULSE 62; RESP 18; TEMP 97.7; O2SAT 96
[2017-06-25] MEDS: oxyCODONE/ACETAMINOPHEN 10 MG/325 MG TAB PO PRN ×2 (12:14→21:25)
[2017-06-25 20:00] VITALS: BP 93/58; PULSE 63; RESP 18; TEMP 97.8; O2SAT 96
[2017-06-26] MEDS: METHOCARBAMOL 500 MG TAB PO SCH (06:03)
[2017-06-26] MEDS: oxyCODONE/ACETAMINOPHEN 10 MG/325 MG TAB PO PRN (06:04)
[2017-06-26 08:31] VITALS: BP 86/56; PULSE 52; RESP 16; TEMP 97.6; O2SAT 99
[2017-06-26] MEDS: LISINOPRIL 20 MG TAB PO SCH ×2 (09:00→20:31)
[2017-06-26] MEDS: LABETALOL HCL 100 MG TAB PO SCH (09:00)
[2017-06-26] MEDS: DOCUSATE SODIUM 50 MG/SENNA 8.6 MG TAB PO SCH (10:06)
[2017-06-26] MEDS: FLUoxetine HCL 20 MG CAP PO SCH (10:07)
[2017-06-26] MEDS: SODIUM CHLORIDE 0.9% FLUSH 10 ML FLUSH IV FLUSH SCH (10:08)
[2017-06-26] MEDS ORDERED: ONDANSETRON ODT 4 MG TAB PO PRN (12:15)
--- NOTE | 2017-06-26 12:24 | HHI.PR ---
Subjective Remarks Patient seen and examined today for follow-up on admitted care for self and unsafe discharge. Patient lying in bed comfortable with c-collar in place. Physical therapy is recommended patient and does indicate that she is walking 60 feet 2 with contact guard a rolling walker. Still recommending PT at rehabilitation, requires supervision at home. Patient states that she can go stay with her friend that can monitor her. Occupational therapy indicates that patient is able to eat on her own, wash herself on her own with minimal assist. However still recommending occupational therapy at rehabilitation Objective Vitals Vital Signs Date Time Temp Pulse Resp B/P Pulse Ox O2 Delivery O2 Flow Rate FiO2 06/26/17 08:31 97.6 52 16 86/56 99 06/25/17 20:00 97.8 63 18 93/58 96 I/O 06/25/17 06/25/17 06/25/17 06/26/17 06/26/17 06/26/17 07:00 15:00 23:00 07:00 15:00 23:00 # Voids 0 # Bowel Movements 0 Result Diagram: 06/23/17 0548 06/23/17 0548 Objective Remarks GENERAL: Well-developed, well-nourished, in no acute distress. alert and orientated HEENT: Head is normocephalic without any lesions or masses noted. Facial features are symmetric. Eyes: Extraocular muscles are intact. Conjunctivae were clear. NECK: C-collar in place CARDIAC: Regular rhythm, regular rate. S1/S2 are heard. No murmurs gallops or rubs. LUNGS: Clear to auscultation bilaterally. No wheeze, rhonchi or rales. No use of accessory muscles on inspiration or expiration. ABDOMEN: Soft, nontender. Nondistended. Bowel sounds heard in all 4 quadrants. No organomegaly or masses. Negative rebound, negative guarding EXTREMITIES: No edema, pulses are equal bilaterally. No cyanosis or clubbing NEUROLOGY: Mood and affect appear appropriate. Cranial nerves II through XII grossly intact moving all extremities, speech is clear Urinary Catheter: No Vascular Central Line Catheter: No A/P Assessment and Plan Inability to care for self, unsafe discharge Records indicate that the patient cannot walk, she was planned to discharge to a homeless prison, however it was deemed unsafe to discharge Patient indicates that she does have a friend that she can stay with. Continue PT/OT Case management for discharge planning Multiple traumatic injuries Patient laceration, subdural hemorrhage, ventricular hemorrhage, nasal fracture , C6 fracture, C1-C2 subluxation, C4 transverse process fracture, right rib fracture, L1 transverse process fracture, right pubic rami fracture Continue c-collar this time Specialist no longer following the patient, patient will require outpatient follow-up if discharge Patient denies any active pain. We'll discontinue all pain medications, patient may use Tylenol as needed, Robaxin as needed for muscle spasms Hypertension Blood pressure is labile Amlodipine 10 mg daily Change to Lisinopril 20 mg twice daily Discontinue Labetalol 100 mg every 12 hours DVT prevention Sequential compression devices Discharge Planning Discharge planning per case management Conrado Mariee Jun 26, 2017 12:24
[2017-06-26 20:00] VITALS: BP 114/71; PULSE 60; RESP 20; TEMP 98.6; O2SAT 97
[2017-06-27] MEDS: FLUoxetine HCL 20 MG CAP PO SCH (07:12)
[2017-06-27] MEDS: LISINOPRIL 20 MG TAB PO SCH ×2 (07:14→07:43)
--- NOTE | 2017-06-27 07:38 | HHI.PR ---
Subjective Remarks Patient seen and examined today for follow-up on inability to care for self. Patient lying back carefully without her c-collar in place. The patient that she needs to leave that on at all times. Patient denies any new complaints or any pain Objective Vitals Vital Signs Date Time Temp Pulse Resp B/P Pulse Ox O2 Delivery O2 Flow Rate FiO2 06/26/17 20:00 98.6 60 20 114/71 97 06/26/17 08:31 97.6 52 16 86/56 99 I/O 06/26/17 06/26/17 06/26/17 06/27/17 06/27/17 06/27/17 07:00 15:00 23:00 07:00 15:00 23:00 Intake Total 480 ml 580 ml Balance 480 ml 580 ml Intake Oral 480 ml 580 ml # Voids 0 5 1 # Bowel Movements 0 1 0 Result Diagram: 06/23/1748 06/23/17547 Objective Remarks GENERAL: Well-developed, well-nourished, in no acute distress. alert and orientated HEENT: Head is normocephalic without any lesions or masses noted. Facial features are symmetric. Eyes: Extraocular muscles are intact. Conjunctivae were clear. NECK: C-collar in on table at bedside CARDIAC: Regular rhythm, regular rate. S1/S2 are heard. No murmurs gallops or rubs. LUNGS: Clear to auscultation bilaterally. No wheeze, rhonchi or rales. No use of accessory muscles on inspiration or expiration. ABDOMEN: Soft, nontender. Nondistended. Bowel sounds heard in all 4 quadrants. No organomegaly or masses. Negative rebound, negative guarding EXTREMITIES: No edema, pulses are equal bilaterally. No cyanosis or clubbing NEUROLOGY: Mood and affect appear appropriate. Cranial nerves II through XII grossly intact moving all extremities, speech is clear Urinary Catheter: No Vascular Central Line Catheter: No A/P Assessment and Plan Inability to care for self, unsafe discharge Records indicate that the patient cannot walk, she was planned to discharge to a homeless detention, however it was deemed unsafe to discharge Patient indicates that she does have a friend that she can stay with. Continue PT/OT Case management for discharge planning Multiple traumatic injuries Patient laceration, subdural hemorrhage, ventricular hemorrhage, nasal fracture , C6 fracture, C1-C2 subluxation, C4 transverse process fracture, right rib fracture, L1 transverse process fracture, right pubic rami fracture Continue c-collar this time Specialist no longer following the patient, patient will require outpatient follow-up if discharge Patient denies any active pain. We'll discontinue all pain medications, patient may use Tylenol as needed, Robaxin as needed for muscle spasms Hypertension Blood pressure is labile Amlodipine 10 mg daily Change to Lisinopril 20 mg daily DVT prevention Sequential compression devices Discharge Planning Discharge planning per case management Conrado Mariee Jun 27, 2017 07:38
[2017-06-27 07:48] VITALS: BP_SYST 106; BP_SYST 122; BP_DIAS 75; BP_DIAS 85; PULSE 57; PULSE 93; RESP 16; TEMP 97.4; TEMP 98; O2SAT 97
[2017-06-27] MEDS: METHOCARBAMOL 500 MG TAB PO PRN (17:37)
[2017-06-27] MEDS: ACETAMINOPHEN 325 MG TAB PO PRN (17:37)
[2017-06-27 20:00] VITALS: BP 114/82; PULSE 70; RESP 20; TEMP 96; O2SAT 99
[2017-06-28 08:00] VITALS: BP 121/74; PULSE 71; RESP 16; TEMP 98.4; O2SAT 96
[2017-06-28] MEDS: FLUoxetine HCL 20 MG CAP PO SCH (09:00)
[2017-06-28] MEDS: LISINOPRIL 20 MG TAB PO SCH (09:21)
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
[2017-06-28] MEDS: METHOCARBAMOL 500 MG TAB PO PRN ×2 (11:26→19:29)
[2017-06-28] MEDS: ACETAMINOPHEN 325 MG TAB PO PRN ×2 (11:26→19:29)
[2017-06-28] MEDS ORDERED: TEMAZEPAM 7.5 MG CAP PO PRN (19:45)
[2017-06-28 20:00] VITALS: BP 132/91; PULSE 62; RESP 18; TEMP 98.2; O2SAT 96
[2017-06-29] MEDS: FLUoxetine HCL 20 MG CAP PO SCH (09:10)
[2017-06-29] MEDS: LISINOPRIL 20 MG TAB PO SCH (09:10)
[2017-06-29] MEDS: ACETAMINOPHEN 325 MG TAB PO PRN ×2 (09:18→20:49)
[2017-06-29 09:22] VITALS: BP 129/83; PULSE 75; RESP 16; TEMP 96.4; O2SAT 96
--- NOTE | 2017-06-29 10:13 | HHI.PR ---
Subjective Remarks Follow-up for inability to care for self, trauma. The patient states she has pain in her right groin over the past few days. She tells me she had a fall this weekend which occurred on the corner of [place] [address]. I informed the patient that she was in the hospital this past weekend. RN denies the patient having any falls and states she has been confused. Patient denies any head injury. Objective Vitals Vital Signs Date Time Temp Pulse Resp B/P (MAP) Pulse Ox O2 Delivery O2 Flow Rate FiO2 06/29/17 09:22 96.4 75 16 129/83 (98) 96 06/28/17 20:00 98.2 62 18 132/91 (105) 96 06/28/17 12:30 20 I/O 06/28/17 06/28/17 06/28/17 06/29/17 06/29/17 06/29/17 07:00 15:00 23:00 07:00 15:00 23:00 Intake Total 60 ml 480 ml Output Total 0 ml Balance 60 ml 480 ml 0 ml Intake Oral 60 ml 480 ml Output Urine Total 0 ml Stool Total 0 ml # Voids 1 2 # Bowel Movements 0 1 Objective Remarks GENERAL: Pleasant patient in no apparent distress. SKIN: Warm and dry. Healing laceration to face. EYES: Pupils equal and round. B/L EOMs intact. NECK: C-collar on bed. CARDIOVASCULAR: Regular rate and rhythm. RESPIRATORY: No accessory muscle use. Clear to auscultation. Breath sounds equal bilaterally. GASTROINTESTINAL: Abdomen soft, non-tender, nondistended. MUSCULOSKELETAL: Tender right groin. Patient has good range of motion of the right hip but does have some mild pain with internal rotation. No pain with external rotation. 2+ DP and TP pulses bilaterally. NEUROLOGICAL: Awake and alert. Patient appears confused when talking about a fall that did not happen this past weekend, but aside from reading the month off of the board she is oriented to person, place, year, president, reason for which she is hospitalized. Five out of 5 muscle strength in the arms and legs. Gross sensation arms and legs intact. Normal speech. PSYCHIATRIC: Appropriate mood and affect. Urinary Catheter: No Vascular Central Line Catheter: No A/P Problem List: (1) Inability to walk ICD Code: R26.2 - Difficulty in walking, not elsewhere classified Status: Acute (2) Alcohol dependence in controlled environment ICD Code: F10.20 - Alcohol dependence, uncomplicated Status: Acute (3) Facial injury ICD Code: S09.93XA - Unspecified injury of face, initial encounter Status: Acute (4) Fall ICD Code: W19.XXXA - Unspecified fall, initial encounter Status: Acute (5) Hypertension ICD Code: I10 - Essential (primary) hypertension Status: Acute (6) Pelvic fracture ICD Code: S32.9XXA - Fracture of unspecified parts of lumbosacral spine and pelvis, initial encounter for closed fracture Status: Acute (7) C1-C2 subluxation ICD Code: S13.120A - Subluxation of C1/C2 cervical vertebrae, initial encounter Status: Acute (8) C6 cervical fracture ICD Code: S12.500A - Unspecified displaced fracture of sixth cervical vertebra , initial encounter for closed fracture Status: Acute (9) Traumatic brain injury ICD Code: S06.9X9A - Unspecified intracranial injury with loss of consciousness of unspecified duration, initial encounter Status: Acute (10) Nasal fracture ICD Code: S02.2XXA - Fracture of nasal bones, initial encounter for closed fracture Status: Acute (11) Mild neurocognitive disorder ICD Code: G31.84 - Mild cognitive impairment, so stated Status: Acute (12) Intracranial bleed ICD Code: I62.9 - Nontraumatic intracranial hemorrhage, unspecified Status: Acute Assessment and Plan Inability to care for self, unsafe discharge Records indicate that the patient cannot walk, she was planned to discharge to a homeless assisted, however it was deemed unsafe to discharge Patient indicates that she does have a friend that she can stay with. Continue PT/OT until patient cleared by therapies that she can perform her ADLs and ambulate unassisted Case management for discharge planning Multiple traumatic injuries Patient laceration, subdural hemorrhage, ventricular hemorrhage, nasal fracture , C6 fracture, C1-C2 subluxation, C4 transverse process fracture, right rib fracture, L1 transverse process fracture, right pubic rami fracture Continue c-collar this time Specialist no longer following patient, patient will require outpatient follow- up if discharge May use Tylenol as needed, Robaxin as needed for muscle spasms Patient complains of right groin pain for the past few days and states she had a recent fall which is untrue. Previous pelvis x-ray was reviewed with right superior and inferior pubic rami fractures which is likely the cause of the patient's pain. Her range of motion is good and she only has mild pain with rotation. If there was new fracture present I would exam to reflect that. No need for new x-rays at this time. Monitor clinically. Confusion: Although patient is well oriented she appeared confused when talking about a fall that did not actually happen this weekend and nurse also states patient has been confused. Could be attributed to previous brain hemorrhage or chronic alcohol abuse. -Obtain ammonia level. -Continue sitter and bed alarm Hypertension Blood pressure is labile Amlodipine 10 mg daily Lisinopril 20 mg daily DVT prevention Sequential compression devices Azul Sarkar Jun 29, 2017 10:13
[2017-06-29 20:00] VITALS: BP 127/85; PULSE 70; RESP 20; TEMP 97.9; O2SAT 97
[2017-06-29] MEDS: METHOCARBAMOL 500 MG TAB PO PRN (20:49)
[2017-06-30] MEDS: LISINOPRIL 20 MG TAB PO SCH (09:43)
[2017-06-30] MEDS: FLUoxetine HCL 20 MG CAP PO SCH (09:43)
[2017-06-30] MEDS: ACETAMINOPHEN 325 MG TAB PO PRN (12:14)
--- NOTE | 2017-06-30 12:21 | HHI.PR ---
Subjective Remarks Follow-up for inability to care for self, trauma. Patient still has right groin pain which she has had for the past few days. Objective Vitals Vital Signs Date Time Temp Pulse Resp B/P (MAP) Pulse Ox O2 Delivery O2 Flow Rate FiO2 06/29/17 20:00 97.9 70 20 127/85 (99) 97 I/O 06/29/17 06/29/17 06/29/17 06/30/17 06/30/17 06/30/17 06:59 14:59 22:59 06:59 14:59 22:59 Intake Total 1680 ml 240 ml Output Total 0 ml Balance 0 ml 1680 ml 240 ml Intake Oral 1680 ml 240 ml Output Urine Total 0 ml Stool Total 0 ml # Voids 5 1 # Bowel Movements 1 0 Imaging Last Impressions Pelvis X-Ray 06/30/17 0000 Signed Impressions: Service Date/Time: Wednesday, June 30, 2017 12:17 - CONCLUSION: No significant change has occurred. Carlos Capps MD Objective Remarks GENERAL: Pleasant patient in no apparent distress. Sitter at bedside. SKIN: Warm and dry. Healed laceration to left frontal bone. NECK: C-collar on bedside table. CARDIOVASCULAR: Regular rate and rhythm. RESPIRATORY: No accessory muscle use. Clear to auscultation. Breath sounds equal bilaterally. MUSCULOSKELETAL: Tender over right groin. Patient has good range of motion of the right hip but does have pain with internal rotation. 2+ DP pulses bilaterally. NEUROLOGICAL: Awake and alert. Oriented to person, president, and year, Knows she is in [place] but does not recall the name of the hospital. Does not know the month without looking at the board. Normal speech. PSYCHIATRIC: Appropriate mood and affect. Urinary Catheter: No Vascular Central Line Catheter: No A/P Problem List: (1) Inability to walk ICD Code: R26.2 - Difficulty in walking, not elsewhere classified Status: Acute (2) Alcohol dependence in controlled environment ICD Code: F10.20 - Alcohol dependence, uncomplicated Status: Acute (3) Facial injury ICD Code: S09.93XA - Unspecified injury of face, initial encounter Status: Acute (4) Fall ICD Code: W19.XXXA - Unspecified fall, initial encounter Status: Acute (5) Hypertension ICD Code: I10 - Essential (primary) hypertension Status: Acute (6) Pelvic fracture ICD Code: S32.9XXA - Fracture of unspecified parts of lumbosacral spine and pelvis, initial encounter for closed fracture Status: Acute (7) C1-C2 subluxation ICD Code: S13.120A - Subluxation of C1/C2 cervical vertebrae, initial encounter Status: Acute (8) C6 cervical fracture ICD Code: S12.500A - Unspecified displaced fracture of sixth cervical vertebra , initial encounter for closed fracture Status: Acute (9) Traumatic brain injury ICD Code: S06.9X9A - Unspecified intracranial injury with loss of consciousness of unspecified duration, initial encounter Status: Acute (10) Nasal fracture ICD Code: S02.2XXA - Fracture of nasal bones, initial encounter for closed fracture Status: Acute (11) Mild neurocognitive disorder ICD Code: G31.84 - Mild cognitive impairment, so stated Status: Acute (12) Intracranial bleed ICD Code: I62.9 - Nontraumatic intracranial hemorrhage, unspecified Status: Acute Assessment and Plan Inability to care for self, unsafe discharge Records indicate that the patient cannot walk, she was planned to discharge to a homeless sn[facility], however it was deemed unsafe to discharge Patient indicates that she does have a friend that she can stay with. PT/OT. Case management for discharge planning Multiple traumatic injuries Patient laceration, subdural hemorrhage, ventricular hemorrhage, nasal fracture , C6 fracture, C1-C2 subluxation, C4 transverse process fracture, right rib fracture, L1 transverse process fracture, right pubic rami fracture Continue c-collar this time Specialist no longer following patient, patient will require outpatient follow- up if discharge May use Tylenol as needed, Robaxin as needed for muscle spasms 06/29: Patient complains of right groin pain for the past few days and states she had a recent fall which is untrue. Previous pelvis x-ray with right superior and inferior pubic rami fractures which is likely the cause of the patient's pain. Her range of motion is good although has pain with internal rotation. 06/30: R groin pain continues. New pelvis x-ray obtained to evaluate for worsening fractures but is stable. X-ray personally interpreted and reveals no injury to the R hip joint itself. Previous fractures noted. Confusion: Likely attributed to previous brain hemorrhage or chronic alcohol abuse. -Ammonia level normal. -Continue sitter and bed alarm -ST performed cognitive evaluation indicating moderate to severe cognitive deficits. Hypertension Blood pressure is labile Amlodipine 10 mg daily Lisinopril 20 mg daily DVT prevention Sequential compression devices Discharge Planning [facility] assisting with SSI/Medicaid application. 06/30: I spoke with physical therapist today who states patient is ambulating well and has cleared the patient from physical therapy stand point. Although mostly oriented, patient has episodes of confusion. According to ST, patient has moderate to severe cognitive deficits and for this reason she will require placement. Azul Sarkar Jun 30, 2017 12:21
--- NOTE | 2017-06-30 12:32 | RADRPT ---
EXAM DATE/TIME: 06/30/2017 12:17 [facility] COMPARISON: PELVIS AP ONLY, June 09, 2017, 14:37. INDICATIONS : New right groin/pelvic pain. MEDICAL HISTORY : Hypertension. SURGICAL HISTORY : Femur rods. ENCOUNTER: Subsequent ACUITY: 2 weeks PAIN SCORE: 9/10 LOCATION: Right hip FINDINGS: There is a fracture through the right superior pubic ramus as well as the right ischium fracture. The bone density is normal. No other fractures are seen. CONCLUSION: No significant change has occurred. Carlos Capps MD on June 30, 2017 at 12:29 Board Certified Radiologist. This report was verified electronically.
[2017-06-30 12:45] VITALS: BP 131/75; PULSE 64; RESP 16; TEMP 98.3; O2SAT 96
[2017-06-30 20:00] VITALS: BP 108/78; PULSE 69; RESP 20; TEMP 98.4; O2SAT 95
[2017-07-01 08:12] VITALS: BP 132/78; PULSE 67; RESP 19; TEMP 98.7; O2SAT 96
[2017-07-01] MEDS: FLUoxetine HCL 20 MG CAP PO SCH (09:43)
[2017-07-01] MEDS: LISINOPRIL 20 MG TAB PO SCH (09:44)
[2017-07-01] MEDS: METHOCARBAMOL 500 MG TAB PO PRN (12:20)
[2017-07-01] MEDS: ACETAMINOPHEN 325 MG TAB PO PRN (12:21)
--- NOTE | 2017-07-01 13:25 | HHI.PR ---
Subjective Remarks Follow-up for inability to care for self, trauma. Patient again complains of right groin pain. X-rays were performed yesterday which showed no worsening of pelvic fractures. Patient states she has 8/10 pain when ambulating. Objective Vitals Vital Signs Date Time Temp Pulse Resp B/P (MAP) Pulse Ox O2 Delivery O2 Flow Rate FiO2 07/01/17 08:12 98.7 67 19 132/78 (96) 96 06/30/17 20:00 98.4 69 20 108/78 (88) 95 I/O 06/30/17 06/30/17 06/30/17 07/01/17 07/01/17 07/01/17 07:00 15:00 23:00 07:00 15:00 23:00 Intake Total 240 ml 240 ml 240 ml Balance 240 ml 240 ml 240 ml Intake Oral 240 ml 240 ml 240 ml # Voids 1 2 4 # Bowel Movements 0 0 1 Objective Remarks GENERAL: Pleasant patient in no apparent distress. Sitter at bedside. SKIN: Warm and dry. Healed laceration to left frontal bone. CARDIOVASCULAR: Regular rate and rhythm. RESPIRATORY: No accessory muscle use. Clear to auscultation. Breath sounds equal bilaterally. GASTROINTESTINAL: Abdomen soft, nontender, nondistended. MUSCULOSKELETAL: 2+ DP pulses bilaterally. NEUROLOGICAL: Awake and alert. Patient does not know the month without looking at the board and cannot remember that she is in [place] rather than [place], but is otherwise oriented. PSYCHIATRIC: Appropriate mood and affect. Urinary Catheter: No Vascular Central Line Catheter: No A/P Problem List: (1) Inability to walk ICD Code: R26.2 - Difficulty in walking, not elsewhere classified Status: Acute (2) Alcohol dependence in controlled environment ICD Code: F10.20 - Alcohol dependence, uncomplicated Status: Acute (3) Facial injury ICD Code: S09.93XA - Unspecified injury of face, initial encounter Status: Acute (4) Fall ICD Code: W19.XXXA - Unspecified fall, initial encounter Status: Acute (5) Hypertension ICD Code: I10 - Essential (primary) hypertension Status: Acute (6) Pelvic fracture ICD Code: S32.9XXA - Fracture of unspecified parts of lumbosacral spine and pelvis, initial encounter for closed fracture Status: Acute (7) C1-C2 subluxation ICD Code: S13.120A - Subluxation of C1/C2 cervical vertebrae, initial encounter Status: Acute (8) C6 cervical fracture ICD Code: S12.500A - Unspecified displaced fracture of sixth cervical vertebra , initial encounter for closed fracture Status: Acute (9) Traumatic brain injury ICD Code: S06.9X9A - Unspecified intracranial injury with loss of consciousness of unspecified duration, initial encounter Status: Acute (10) Nasal fracture ICD Code: S02.2XXA - Fracture of nasal bones, initial encounter for closed fracture Status: Acute (11) Mild neurocognitive disorder ICD Code: G31.84 - Mild cognitive impairment, so stated Status: Acute (12) Intracranial bleed ICD Code: I62.9 - Nontraumatic intracranial hemorrhage, unspecified Status: Acute Assessment and Plan Inability to care for self, unsafe discharge Records indicate that the patient cannot walk, she was planned to discharge to a homeless [facility], however it was deemed unsafe to discharge Patient indicates that she does have a friend that she can stay with. PT/OT. Case management for discharge planning Multiple traumatic injuries Patient laceration, subdural hemorrhage, ventricular hemorrhage, nasal fracture , C6 fracture, C1-C2 subluxation, C4 transverse process fracture, right rib fracture, L1 transverse process fracture, right pubic rami fracture Continue c-collar this time Specialist no longer following patient, patient will require outpatient follow- up if discharge May use Tylenol as needed, Robaxin as needed for muscle spasms 06/29: Patient complains of right groin pain for the past few days and states she had a recent fall which is untrue. Previous pelvis x-ray with right superior and inferior pubic rami fractures which is likely the cause of the patient's pain. Her range of motion is good although has pain with internal rotation. 07/01: R groin pain continues. New pelvis x-ray obtained yesterday is stable. [place] 7.5 ordered prn for pain 3-10. Confusion: Likely attributed to previous brain hemorrhage or chronic alcohol abuse. -Ammonia level normal. -Continue sitter and bed alarm -ST performed cognitive evaluation indicating moderate to severe cognitive deficits. Hypertension Blood pressure is labile Amlodipine 10 mg daily Lisinopril 20 mg daily DVT prevention Sequential compression devices Discharge Planning [facility] assisting with SSI/Medicaid application. 06/30: I spoke with physical therapist today who states patient is ambulating well and has cleared the patient from physical therapy stand point. Although mostly oriented, patient has episodes of confusion. According to ST, patient has moderate to severe cognitive deficits and for this reason she will require placement. Azul Sarkar Jul 01, 2017 13:25
[2017-07-01] MEDS: ACETAMINOPHEN/HYDROcodone 325 MG/7.5 MG TAB PO PRN (17:15)
[2017-07-01 20:00] VITALS: BP 110/73; PULSE 65; RESP 16; TEMP 97.9; O2SAT 96
[2017-07-02] MEDS: LISINOPRIL 20 MG TAB PO SCH (07:41)
[2017-07-02] MEDS: FLUoxetine HCL 20 MG CAP PO SCH (07:43)
[2017-07-02 08:00] VITALS: BP 126/83; PULSE 60; RESP 16; TEMP 97.5; O2SAT 98
--- NOTE | 2017-07-02 09:49 | HHI.PR ---
Subjective Remarks Follow-up for trauma, right groin pain. Pain improved but patient states it occurs when she ambulates. Objective Vitals Vital Signs Date Time Temp Pulse Resp B/P (MAP) Pulse Ox O2 Delivery O2 Flow Rate FiO2 07/02/17 08:00 97.5 60 16 126/83 (97) 98 07/01/17 20:00 97.9 65 16 110/73 (85) 96 I/O 07/01/17 07/01/17 07/01/17 07/02/17 07/02/17 07/02/17 07:00 15:00 23:00 07:00 15:00 23:00 Intake Total 240 ml 1220 ml 480 ml Balance 240 ml 1220 ml 480 ml Intake Oral 240 ml 1220 ml 480 ml # Voids 4 7 2 # Bowel Movements 1 2 0 Objective Remarks GENERAL: Pleasant patient in no apparent distress. Sitter at bedside. SKIN: Warm and dry. Healed laceration to left frontal bone. CARDIOVASCULAR: Regular rate and rhythm. RESPIRATORY: No accessory muscle use. Clear to auscultation. Breath sounds equal bilaterally. GASTROINTESTINAL: Abdomen soft, nontender, nondistended. MUSCULOSKELETAL: 2+ DP pulses bilaterally. NEUROLOGICAL: Awake and alert. Patient thinks she is at "[employer] [employer], but does know the month today. Knows the year and president. PSYCHIATRIC: Appropriate mood and affect. Urinary Catheter: No Vascular Central Line Catheter: No A/P Problem List: (1) Inability to walk ICD Code: R26.2 - Difficulty in walking, not elsewhere classified Status: Acute (2) Alcohol dependence in controlled environment ICD Code: F10.20 - Alcohol dependence, uncomplicated Status: Acute (3) Facial injury ICD Code: S09.93XA - Unspecified injury of face, initial encounter Status: Acute (4) Fall ICD Code: W19.XXXA - Unspecified fall, initial encounter Status: Acute (5) Hypertension ICD Code: I10 - Essential (primary) hypertension Status: Acute (6) Pelvic fracture ICD Code: S32.9XXA - Fracture of unspecified parts of lumbosacral spine and pelvis, initial encounter for closed fracture Status: Acute (7) C1-C2 subluxation ICD Code: S13.120A - Subluxation of C1/C2 cervical vertebrae, initial encounter Status: Acute (8) C6 cervical fracture ICD Code: S12.500A - Unspecified displaced fracture of sixth cervical vertebra , initial encounter for closed fracture Status: Acute (9) Traumatic brain injury ICD Code: S06.9X9A - Unspecified intracranial injury with loss of consciousness of unspecified duration, initial encounter Status: Acute (10) Nasal fracture ICD Code: S02.2XXA - Fracture of nasal bones, initial encounter for closed fracture Status: Acute (11) Mild neurocognitive disorder ICD Code: G31.84 - Mild cognitive impairment, so stated Status: Acute (12) Intracranial bleed ICD Code: I62.9 - Nontraumatic intracranial hemorrhage, unspecified Status: Acute Assessment and Plan Inability to care for self, unsafe discharge Records indicate that the patient cannot walk, she was planned to discharge to a homeless [facility], however it was deemed unsafe to discharge Patient indicates that she does have a friend that she can stay with. PT/OT. Case management for discharge planning Multiple traumatic injuries Patient laceration, subdural hemorrhage, ventricular hemorrhage, nasal fracture , C6 fracture, C1-C2 subluxation, C4 transverse process fracture, right rib fracture, L1 transverse process fracture, right pubic rami fracture Continue c-collar this time Specialist no longer following patient, patient will require outpatient follow- up if discharge May use Tylenol as needed, Robaxin as needed for muscle spasms 06/29: Patient complains of right groin pain for the past few days and states she had a recent fall which is untrue. Previous pelvis x-ray with right superior and inferior pubic rami fractures which is likely the cause of the patient's pain. Her range of motion is good although has pain with internal rotation. 07/01: R groin pain continues. New pelvis x-ray obtained yesterday is stable. [place] 7.5 ordered prn for pain 3-10. Confusion: Likely attributed to previous brain hemorrhage or chronic alcohol abuse. -Ammonia level normal. -Continue sitter and bed alarm -ST performed cognitive evaluation indicating moderate to severe cognitive deficits. Hypertension Blood pressure is labile Amlodipine 10 mg daily Lisinopril 20 mg daily DVT prevention Sequential compression devices Discharge Planning [facility] assisting with SSI/Medicaid application. 06/30: I spoke with physical therapist today who states patient is ambulating well and has cleared the patient from physical therapy stand point. Although mostly oriented, patient has episodes of confusion. According to ST, patient has moderate to severe cognitive deficits and for this reason she will require placement. Azul Sarkar Jul 02, 2017 09:49
[2017-07-02] MEDS: METHOCARBAMOL 500 MG TAB PO PRN (16:12)
[2017-07-02] MEDS: ACETAMINOPHEN/HYDROcodone 325 MG/7.5 MG TAB PO PRN (16:13)
[2017-07-02 20:00] VITALS: BP 117/70; PULSE 77; RESP 16; TEMP 97.7; O2SAT 95
[2017-07-03] MEDS: LISINOPRIL 20 MG TAB PO SCH (08:22)
[2017-07-03] MEDS: FLUoxetine HCL 20 MG CAP PO SCH (08:23)
[2017-07-03 09:43] VITALS: BP 123/74; PULSE 68; RESP 18; TEMP 98.1; O2SAT 97
[2017-07-03] MEDS: ACETAMINOPHEN/HYDROcodone 325 MG/7.5 MG TAB PO PRN ×2 (09:48→20:02)
--- NOTE | 2017-07-03 09:55 | HHI.PR ---
Subjective Remarks Follow-up for trauma. Patient states her right groin pain is mildly improved, but admits to 8/10 pain currently and is requesting pain medication. Objective Vitals Vital Signs Date Time Temp Pulse Resp B/P (MAP) Pulse Ox O2 Delivery O2 Flow Rate FiO2 07/03/17 09:43 98.1 68 18 123/74 (90) 97 07/02/17 20:00 97.7 77 16 117/70 (86) 95 I/O 07/02/17 07/02/17 07/02/17 07/03/17 07/03/17 07/03/17 06:59 14:59 22:59 06:59 14:59 22:59 Intake Total 480 ml 360 ml 480 ml 240 ml Balance 480 ml 360 ml 480 ml 240 ml Intake Oral 480 ml 360 ml 480 ml 240 ml # Voids 2 6 2 2 # Bowel Movements 0 0 0 0 Objective Remarks GENERAL: Pleasant patient in no apparent distress. Sitter at bedside. Cervical collar on the bed; patient is not wearing it. SKIN: Warm and dry. Healed laceration to left frontal bone. CARDIOVASCULAR: Regular rate and rhythm. RESPIRATORY: No accessory muscle use. Clear to auscultation. Breath sounds equal bilaterally. MUSCULOSKELETAL: 2+ DP pulses bilaterally. NEUROLOGICAL: Awake and alert. Patient thinks she is at "[facility]. Patient thinks she is in [place]. She knows the month, year, and president. PSYCHIATRIC: Appropriate mood and affect. Urinary Catheter: No Vascular Central Line Catheter: No A/P Problem List: (1) Inability to walk ICD Code: R26.2 - Difficulty in walking, not elsewhere classified Status: Acute (2) Alcohol dependence in controlled environment ICD Code: F10.20 - Alcohol dependence, uncomplicated Status: Acute (3) Facial injury ICD Code: S09.93XA - Unspecified injury of face, initial encounter Status: Acute (4) Fall ICD Code: W19.XXXA - Unspecified fall, initial encounter Status: Acute (5) Hypertension ICD Code: I10 - Essential (primary) hypertension Status: Acute (6) Pelvic fracture ICD Code: S32.9XXA - Fracture of unspecified parts of lumbosacral spine and pelvis, initial encounter for closed fracture Status: Acute (7) C1-C2 subluxation ICD Code: S13.120A - Subluxation of C1/C2 cervical vertebrae, initial encounter Status: Acute (8) C6 cervical fracture ICD Code: S12.500A - Unspecified displaced fracture of sixth cervical vertebra , initial encounter for closed fracture Status: Acute (9) Traumatic brain injury ICD Code: S06.9X9A - Unspecified intracranial injury with loss of consciousness of unspecified duration, initial encounter Status: Acute (10) Nasal fracture ICD Code: S02.2XXA - Fracture of nasal bones, initial encounter for closed fracture Status: Acute (11) Mild neurocognitive disorder ICD Code: G31.84 - Mild cognitive impairment, so stated Status: Acute (12) Intracranial bleed ICD Code: I62.9 - Nontraumatic intracranial hemorrhage, unspecified Status: Acute Assessment and Plan Inability to care for self, unsafe discharge Records indicate that the patient cannot walk, she was planned to discharge to a homeless [facility], however it was deemed unsafe to discharge Patient indicates that she does have a friend that she can stay with. PT/OT. Case management for discharge planning Multiple traumatic injuries Patient laceration, subdural hemorrhage, ventricular hemorrhage, nasal fracture , C6 fracture, C1-C2 subluxation, C4 transverse process fracture, right rib fracture, L1 transverse process fracture, right pubic rami fracture Continue c-collar this time Specialist no longer following patient, patient will require outpatient follow- up if discharge May use Tylenol as needed, Robaxin as needed for muscle spasms R groin pain continues. New pelvis x-ray obtained 06/30 is stable. Continue [place] 7.5 prn for pain 4-10. Confusion: Likely attributed to previous brain hemorrhage or chronic alcohol abuse. -Ammonia level normal. -Continue sitter and bed alarm -ST performed cognitive evaluation indicating moderate to severe cognitive deficits. Hypertension Blood pressure is labile Amlodipine 10 mg daily Lisinopril 20 mg daily DVT prevention Sequential compression devices Discharge Planning [facility] assisting with SSI/Medicaid application. 06/30: I spoke with physical therapist today who states patient is ambulating well and has cleared the patient from physical therapy stand point. Patient is not fully oriented, and has episodes of confusion. According to ST, patient has moderate to severe cognitive deficits and for this reason she will require placement. Azul Sarkar Jul 03, 2017 09:55
[2017-07-03 20:00] VITALS: BP 146/99; PULSE 84; RESP 22; TEMP 97.4; O2SAT 97
[2017-07-04 08:00] VITALS: BP 122/79; PULSE 58; RESP 16; TEMP 97.9; O2SAT 97
[2017-07-04] MEDS: LISINOPRIL 20 MG TAB PO SCH (09:04)
[2017-07-04] MEDS: FLUoxetine HCL 20 MG CAP PO SCH (09:04)
--- NOTE | 2017-07-04 11:05 | HHI.PR ---
Subjective Remarks Follow-up for trauma. No new issues. Objective Vitals Vital Signs Date Time Temp Pulse Resp B/P (MAP) Pulse Ox O2 Delivery O2 Flow Rate FiO2 07/04/17 08:00 97.9 58 16 122/79 (93) 97 07/03/17 20:00 97.4 84 22 146/99 (115) 97 I/O 07/03/17 07/03/17 07/03/17 07/04/17 07/04/17 07/04/17 07:00 15:00 23:00 07:00 15:00 23:00 Intake Total 240 ml 0 ml Balance 240 ml 0 ml Intake Oral 240 ml 0 ml # Voids 2 1 1 # Bowel Movements 0 Objective Remarks GENERAL: Pleasant patient in no apparent distress. Sitter at bedside. Cervical collar on the bed; patient is not wearing it. SKIN: Warm and dry. Healed laceration to left frontal bone. CARDIOVASCULAR: Regular rate and rhythm. RESPIRATORY: No accessory muscle use. Clear to auscultation. Breath sounds equal bilaterally. GASTROINTESTINAL: Abdomen soft, non-tender, non-distended. MUSCULOSKELETAL: Intact DP pulses bilaterally. No lower extremity edema bilaterally. NEUROLOGICAL: Awake and alert. Orientation improved today. PSYCHIATRIC: Appropriate mood and affect. Urinary Catheter: No Vascular Central Line Catheter: No A/P Problem List: (1) Inability to walk ICD Code: R26.2 - Difficulty in walking, not elsewhere classified Status: Acute (2) Alcohol dependence in controlled environment ICD Code: F10.20 - Alcohol dependence, uncomplicated Status: Acute (3) Facial injury ICD Code: S09.93XA - Unspecified injury of face, initial encounter Status: Acute (4) Fall ICD Code: W19.XXXA - Unspecified fall, initial encounter Status: Acute (5) Hypertension ICD Code: I10 - Essential (primary) hypertension Status: Acute (6) Pelvic fracture ICD Code: S32.9XXA - Fracture of unspecified parts of lumbosacral spine and pelvis, initial encounter for closed fracture Status: Acute (7) C1-C2 subluxation ICD Code: S13.120A - Subluxation of C1/C2 cervical vertebrae, initial encounter Status: Acute (8) C6 cervical fracture ICD Code: S12.500A - Unspecified displaced fracture of sixth cervical vertebra , initial encounter for closed fracture Status: Acute (9) Traumatic brain injury ICD Code: S06.9X9A - Unspecified intracranial injury with loss of consciousness of unspecified duration, initial encounter Status: Acute (10) Nasal fracture ICD Code: S02.2XXA - Fracture of nasal bones, initial encounter for closed fracture Status: Acute (11) Mild neurocognitive disorder ICD Code: G31.84 - Mild cognitive impairment, so stated Status: Acute (12) Intracranial bleed ICD Code: I62.9 - Nontraumatic intracranial hemorrhage, unspecified Status: Acute Assessment and Plan Inability to care for self, unsafe discharge Records indicate that the patient cannot walk, she was planned to [facility] to a homeless [facility], however it was deemed unsafe to discharge Patient indicates that she does have a friend that she can stay with. PT/OT. Case management for discharge planning Multiple traumatic injuries Patient laceration, subdural hemorrhage, ventricular hemorrhage, nasal fracture , C6 fracture, C1-C2 subluxation, C4 transverse process fracture, right rib fracture, L1 transverse process fracture, right pubic rami fracture Continue c-collar this time Specialist no longer following patient, patient will require outpatient follow- up if discharge May use Tylenol as needed, Robaxin as needed for muscle spasms R groin pain continues. New pelvis x-ray obtained 06/30 is stable. Continue [place] 7.5 prn for pain 4-10. Confusion: Likely attributed to previous brain hemorrhage and/or chronic alcohol abuse. -Ammonia level normal. -Continue sitter and bed alarm -ST performed cognitive evaluation indicating moderate to severe cognitive deficits. Hypertension Blood pressure is labile Amlodipine 10 mg daily Lisinopril 20 mg daily DVT prevention Sequential compression devices Discharge Planning [facility] assisting with SSI/Medicaid application. 06/30: I spoke with physical therapist today who states patient is ambulating well and has cleared the patient from physical therapy stand point. Patient is not fully oriented, and has episodes of confusion. According to ST, patient has moderate to severe cognitive deficits and for this reason she will require placement. Azul Sarkar Jul 04, 2017 11:05
[2017-07-04] MEDS: ACETAMINOPHEN/HYDROcodone 325 MG/7.5 MG TAB PO PRN ×2 (12:55→20:11)
[2017-07-04] MEDS: METHOCARBAMOL 500 MG TAB PO PRN (16:31)
[2017-07-04 20:00] VITALS: BP 105/64; PULSE 72; RESP 20; TEMP 98.5; O2SAT 96
[2017-07-05] MEDS: ACETAMINOPHEN/HYDROcodone 325 MG/7.5 MG TAB PO PRN ×4 (02:26→21:28)
[2017-07-05] MEDS: LISINOPRIL 20 MG TAB PO SCH (09:05)
[2017-07-05] MEDS: FLUoxetine HCL 20 MG CAP PO SCH (09:05)
[2017-07-05 09:14] VITALS: BP 128/83; PULSE 65; RESP 20; TEMP 98.3; O2SAT 95
--- NOTE | 2017-07-05 11:24 | HHI.PR ---
Subjective Remarks Follow-up for trauma. Patient currently states she has 0/10 pain in her right hip but had received pain medication not too long before my exam per sitter at bedside. Objective Vitals Vital Signs Date Time Temp Pulse Resp B/P (MAP) Pulse Ox O2 Delivery O2 Flow Rate FiO2 07/05/17 09:14 98.3 65 20 128/83 (98) 95 07/04/17 20:00 98.5 72 20 105/64 (78) 96 07/04/17 13:55 20 I/O 07/04/17 07/04/17 07/04/17 07/05/17 07/05/17 07/05/17 07:00 15:00 23:00 07:00 15:00 23:00 Intake Total 0 ml 450 ml 480 ml 220 ml Balance 0 ml 450 ml 480 ml 220 ml Intake Oral 0 ml 450 ml 480 ml 220 ml # Voids 1 2 2 2 # Bowel Movements 1 0 0 Objective Remarks GENERAL: Pleasant patient in no apparent distress. Sitter at bedside. Cervical collar on the bed; patient is again not wearing it. SKIN: Warm and dry. Scar to left frontal bone. 7 ashley noted to healing wound to left lateral lower leg, scab present centrally. CARDIOVASCULAR: Regular rate and rhythm. RESPIRATORY: No accessory muscle use. Clear to auscultation. Breath sounds equal bilaterally. GASTROINTESTINAL: Abdomen soft, non-tender, non-distended. MUSCULOSKELETAL: No lower extremity edema bilaterally. NEUROLOGICAL: Awake and alert. Patient believes she is at [place] in [facility]. She knows the month, year, and president though. PSYCHIATRIC: Appropriate mood and affect. Urinary Catheter: No Vascular Central Line Catheter: No A/P Problem List: (1) Inability to walk ICD Code: R26.2 - Difficulty in walking, not elsewhere classified Status: Acute (2) Alcohol dependence in controlled environment ICD Code: F10.20 - Alcohol dependence, uncomplicated Status: Acute (3) Facial injury ICD Code: S09.93XA - Unspecified injury of face, initial encounter Status: Acute (4) Fall ICD Code: W19.XXXA - Unspecified fall, initial encounter Status: Acute (5) Hypertension ICD Code: I10 - Essential (primary) hypertension Status: Acute (6) Pelvic fracture ICD Code: S32.9XXA - Fracture of unspecified parts of lumbosacral spine and pelvis, initial encounter for closed fracture Status: Acute (7) C1-C2 subluxation ICD Code: S13.120A - Subluxation of C1/C2 cervical vertebrae, initial encounter Status: Acute (8) C6 cervical fracture ICD Code: S12.500A - Unspecified displaced fracture of sixth cervical vertebra , initial encounter for closed fracture Status: Acute (9) Traumatic brain injury ICD Code: S06.9X9A - Unspecified intracranial injury with loss of consciousness of unspecified duration, initial encounter Status: Acute (10) Nasal fracture ICD Code: S02.2XXA - Fracture of nasal bones, initial encounter for closed fracture Status: Acute (11) Mild neurocognitive disorder ICD Code: G31.84 - Mild cognitive impairment, so stated Status: Acute (12) Intracranial bleed ICD Code: I62.9 - Nontraumatic intracranial hemorrhage, unspecified Status: Acute Assessment and Plan Inability to care for self, unsafe discharge Records indicate that the patient cannot walk, she was planned to [facility] a homeless [facility], however it was deemed unsafe to discharge Patient indicates that she does have a friend that she can stay with. PT/OT. Case management for discharge planning Multiple traumatic injuries Patient laceration, subdural hemorrhage, ventricular hemorrhage, nasal fracture , C6 fracture, C1-C2 subluxation, C4 transverse process fracture, right rib fracture, L1 transverse process fracture, right pubic rami fracture Continue c-collar this time Specialist no longer following patient, patient will require outpatient follow- up if discharge May use Tylenol as needed, Robaxin as needed for muscle spasms R groin pain continues. New pelvis x-ray obtained 06/30 is stable. Continue [place] 7.5 prn for pain 4-10. 07/05: Ashley from wound repair on 06/09 noted over Left lower leg. Nurse to remove. Confusion: Stable. Likely attributed to previous brain hemorrhage and/or chronic alcohol abuse. -Ammonia level normal. -Continue sitter and bed alarm -ST performed cognitive evaluation indicating moderate to severe cognitive deficits. Hypertension Blood pressure is labile Amlodipine 10 mg daily Lisinopril 20 mg daily DVT prevention Sequential compression devices Discharge Planning [facility] assisting with SSI/Medicaid application. 06/30: I spoke with physical therapist today who states patient is ambulating well and has cleared the patient from physical therapy stand point. Patient is not fully oriented, and has episodes of confusion. According to ST, patient has moderate to severe cognitive deficits and for this reason she will require placement. Azul Sarkar Jul 05, 2017 11:24
[2017-07-05 20:00] VITALS: BP 120/85; PULSE 130; RESP 24; TEMP 98.7; O2SAT 98
[2017-07-05] MEDS ORDERED: TEMAZEPAM 7.5 MG CAP PO PRN (22:30)
[2017-07-06] MEDS: ACETAMINOPHEN/HYDROcodone 325 MG/7.5 MG TAB PO PRN (06:37)
[2017-07-06] MEDS: LISINOPRIL 20 MG TAB PO SCH (08:56)
[2017-07-06] MEDS: FLUoxetine HCL 20 MG CAP PO SCH (08:56)
--- NOTE | 2017-07-06 12:04 | HHI.PR ---
Subjective Remarks Patient seen and examined today for follow-up for inability to care for self. Patient lying in bed comfortable. Denies any new complaints. She is wearing her c-collar. Objective Vitals Vital Signs Date Time Temp Pulse Resp B/P (MAP) Pulse Ox O2 Delivery O2 Flow Rate FiO2 07/05/17 20:00 98.7 130 24 120/85 (97) 98 I/O 07/05/17 07/05/17 07/05/17 07/06/17 07/06/17 07/06/17 07:00 15:00 23:00 07:00 15:00 23:00 Intake Total 220 ml 0 ml Balance 220 ml 0 ml Intake Oral 220 ml 0 ml # Voids 2 4 2 # Bowel Movements 0 1 Objective Remarks GENERAL: Well-developed, well-nourished, in no acute distress. alert and orientated HEENT: Head is normocephalic without any lesions or masses noted. Facial features are symmetric. Eyes: Extraocular muscles are intact. Conjunctivae were clear. NECK: C-collar in on table at bedside CARDIAC: Regular rhythm, regular rate. S1/S2 are heard. No murmurs gallops or rubs. LUNGS: Clear to auscultation bilaterally. No wheeze, rhonchi or rales. No use of accessory muscles on inspiration or expiration. ABDOMEN: Soft, nontender. Nondistended. Bowel sounds heard in all 4 quadrants. No organomegaly or masses. Negative rebound, negative guarding EXTREMITIES: No edema, pulses are equal bilaterally. No cyanosis or clubbing NEUROLOGY: Mood and affect appear appropriate. Cranial nerves II through XII grossly intact moving all extremities, speech is clear Urinary Catheter: No Vascular Central Line Catheter: No A/P Assessment and Plan Inability to care for self, unsafe discharge Records indicate that the patient cannot walk, she was [facility], however it was deemed unsafe to discharge Patient indicates that she does have a friend that she can stay with. Continue PT/OT until patient cleared by therapies that she can perform her ADLs and ambulate unassisted Speech therapy following the patient, it would appear as if speech therapy did come to evaluation on 06/23/17. Indicates patient moderate to severe cognitive defects. Indicating patient dependent with partial help needed. Then on 06/24 as indicated that patient independent. Then after that documentation goes back to the patient is dependent with partial help needed. Will request further/ additional cognitive evaluation --We'll discontinue [place]/Robaxin since this could cause cognitive changes --Case management for discharge planning Multiple traumatic injuries Patient laceration, subdural hemorrhage, ventricular hemorrhage, nasal fracture , C6 fracture, C1-C2 subluxation, C4 transverse process fracture, right rib fracture, L1 transverse process fracture, right pubic rami fracture Continue c-collar this time Specialist no longer following patient, patient will require outpatient follow- up if discharge Patient denies any active pain. patient may use Tylenol as needed, Robaxin as needed for muscle spasms Hypertension Blood pressure is labile Amlodipine 10 mg daily Lisinopril 20 mg daily DVT prevention Sequential compression devices Discharge Planning Discharge planning per case management Conrado Mariee Jul 06, 2017 12:04
[2017-07-06 13:02] VITALS: BP 113/83; PULSE 68; RESP 16; TEMP 98
[2017-07-06 20:00] VITALS: BP 129/82; PULSE 92; RESP 20; TEMP 101.9; O2SAT 93
[2017-07-07] VITALS: TEMP 101.2; O2SAT 94
[2017-07-07 08:00] VITALS: BP 125/86; PULSE 85; RESP 17; TEMP 99.2; O2SAT 94
[2017-07-07] MEDS: LISINOPRIL 20 MG TAB PO SCH (08:18)
[2017-07-07] MEDS: FLUoxetine HCL 20 MG CAP PO SCH (08:18)
[2017-07-07] MEDS: ACETAMINOPHEN 325 MG TAB PO PRN ×2 (08:19→17:59)
--- NOTE | 2017-07-07 11:39 | HHI.PR ---
Subjective Remarks Patient seen and examined today for follow-up on multiple trauma and unsafe discharge. Patient lying in bed comfortable. Denies any new complaints. Objective Vitals Vital Signs Date Time Temp Pulse Resp B/P (MAP) Pulse Ox O2 Delivery O2 Flow Rate FiO2 07/07/17 08:00 99.2 85 17 125/86 (99) 94 07/07/17 00:00 101.2 94 07/06/17 20:00 101.9 92 20 129/82 (98) 93 07/06/17 13:02 98.0 68 16 113/83 (93) I/O 07/06/17 07/06/17 07/06/17 07/07/17 07/07/17 07/07/17 07:00 15:00 23:00 07:00 15:00 23:00 Intake Total 0 ml 960 ml Balance 0 ml 960 ml Intake Oral 0 ml 960 ml # Voids 2 4 4 # Bowel Movements 0 Objective Remarks GENERAL: Well-developed, well-nourished, in no acute distress. alert HEENT: Head is normocephalic without any lesions or masses noted. Facial features are symmetric. Eyes: Extraocular muscles are intact. Conjunctivae were clear. NECK: C-collar in on table at bedside CARDIAC: Regular rhythm, regular rate. S1/S2 are heard. No murmurs gallops or rubs. LUNGS: Clear to auscultation bilaterally. No wheeze, rhonchi or rales. No use of accessory muscles on inspiration or expiration. ABDOMEN: Soft, nontender. Nondistended. Bowel sounds heard in all 4 quadrants. No organomegaly or masses. Negative rebound, negative guarding EXTREMITIES: No edema, pulses are equal bilaterally. No cyanosis or clubbing NEUROLOGY: Mood and affect appear appropriate. Cranial nerves II through XII grossly intact moving all extremities, speech is clear Urinary Catheter: No Vascular Central Line Catheter: No A/P Assessment and Plan Inability to care for self, unsafe discharge Records indicate that the patient cannot walk, she was planned to [facility] a homeless [facility], however it was deemed unsafe to discharge Patient indicates that she does have a friend that she can stay with. Continue PT/OT until patient cleared by therapies that she can perform her ADLs and ambulate unassisted Speech therapy following the patient, it would appear as if speech therapy did come to evaluation on 06/23/17. Indicates patient moderate to severe cognitive defects. Indicating patient dependent with partial help needed. Then on 06/24 as indicated that patient independent. Then after that documentation goes back to the patient is dependent with partial help needed. Will request further/ additional cognitive evaluation --Physical therapy indicates patient is standby assist only, walking 900 feet, however indicating patient still needs to go to rehabilitation --Case management for discharge planning Multiple traumatic injuries Patient laceration, subdural hemorrhage, ventricular hemorrhage, nasal fracture , C6 fracture, C1-C2 subluxation, C4 transverse process fracture, right rib fracture, L1 transverse process fracture, right pubic rami fracture Continue c-collar this time Specialist no longer following patient, patient will require outpatient follow- up if discharge Patient denies any active pain. patient may use Tylenol as needed, Robaxin as needed for muscle spasms Hypertension Blood pressure is labile Amlodipine 10 mg daily Lisinopril 20 mg daily DVT prevention Sequential compression devices Discharge Planning Discharge planning per case management Conrado Mariee Jul 07, 2017 11:39
[2017-07-07] MEDS ORDERED: FLUO20CA12 PO (14:47)
[2017-07-07] MEDS ORDERED: AMLO5 PO (14:47)
[2017-07-07] MEDS ORDERED: LISI-515 PO (15:10)
[2017-07-07 22:00] VITALS: BP 106/73; PULSE 79; RESP 20; TEMP 98.5; O2SAT 95
[2017-07-08] MEDS: ACETAMINOPHEN 325 MG TAB PO PRN ×4 (01:20→23:07)
[2017-07-08 08:00] VITALS: BP 130/86; PULSE 86; RESP 18; TEMP 98.1; O2SAT 96
[2017-07-08] MEDS: LISINOPRIL 20 MG TAB PO SCH (09:22)
[2017-07-08] MEDS: FLUoxetine HCL 20 MG CAP PO SCH (09:22)
--- NOTE | 2017-07-08 10:33 | HHI.PR ---
Subjective Remarks Patient seen and examined today for follow-up on her to ambulate. Patient is ambulating quite well at this time. She has had some memory deficit, still awaiting speech therapy for cognitive evaluation. Case management for discharge planning after speech therapy evaluation Objective Vitals Vital Signs Date Time Temp Pulse Resp B/P (MAP) Pulse Ox O2 Delivery O2 Flow Rate FiO2 07/08/17 08:00 98.1 86 18 130/86 (101) 96 07/08/17 02:20 16 07/07/17 22:00 98.5 79 20 106/73 (84) 95 I/O 07/07/17 07/07/17 07/07/17 07/08/17 07/08/17 07/08/17 07:00 15:00 23:00 07:00 15:00 23:00 Intake Total 960 ml 480 ml Balance 960 ml 480 ml Intake Oral 960 ml 480 ml # Voids 4 4 2 # Bowel Movements 0 Objective Remarks GENERAL: Well-developed, well-nourished, in no acute distress. alert HEENT: Head is normocephalic without any lesions or masses noted. Facial features are symmetric. Eyes: Extraocular muscles are intact. Conjunctivae were clear. NECK: C-collar in on table at bedside CARDIAC: Regular rhythm, regular rate. S1/S2 are heard. No murmurs gallops or rubs. LUNGS: Clear to auscultation bilaterally. No wheeze, rhonchi or rales. No use of accessory muscles on inspiration or expiration. ABDOMEN: Soft, nontender. Nondistended. Bowel sounds heard in all 4 quadrants. No organomegaly or masses. Negative rebound, negative guarding EXTREMITIES: No edema, pulses are equal bilaterally. No cyanosis or clubbing NEUROLOGY: Mood and affect appear appropriate. Cranial nerves II through XII grossly intact moving all extremities, speech is clear Urinary Catheter: No Vascular Central Line Catheter: No A/P Assessment and Plan Inability to care for self, unsafe discharge Records indicate that the patient cannot walk, she was planned to [facility] to a homeless [facility], however it was deemed unsafe to discharge Patient indicates that she does have a friend that she can stay with. Continue PT/OT until patient cleared by therapies that she can perform her ADLs and ambulate unassisted Speech therapy following the patient, it would appear as if speech therapy did come to evaluation on 06/23/17. Indicates patient moderate to severe cognitive defects. Indicating patient dependent with partial help needed. Then on 06/24 as indicated that patient independent. Then after that documentation goes back to the patient is dependent with partial help needed. Awaiting further evaluation by speech therapy for cognitive eval --Physical therapy indicates patient is standby assist only, walking 900 feet, however indicating patient still needs to go to rehabilitation --Case management for discharge planning Multiple traumatic injuries Patient laceration, subdural hemorrhage, ventricular hemorrhage, nasal fracture , C6 fracture, C1-C2 subluxation, C4 transverse process fracture, right rib fracture, L1 transverse process fracture, right pubic rami fracture Continue c-collar this time Specialist no longer following patient, patient will require outpatient follow- up if discharge Patient denies any active pain. patient may use Tylenol as needed, Robaxin as needed for muscle spasms Hypertension Blood pressure is labile Amlodipine 10 mg daily Lisinopril 20 mg daily DVT prevention Sequential compression devices Discharge Planning Discussed with case management who will try to arrange discharge to home a [facility] after speech therapy evaluation Conrado Mariee Jul 08, 2017 10:33
[2017-07-08 20:00] VITALS: BP 124/83; PULSE 84; RESP 20; TEMP 97.5; O2SAT 99
[2017-07-09 08:00] VITALS: BP 116/74; PULSE 89; RESP 18; TEMP 98.6; O2SAT 98
[2017-07-09] MEDS: FLUoxetine HCL 20 MG CAP PO SCH (08:44)
[2017-07-09] MEDS: LISINOPRIL 20 MG TAB PO SCH (08:44)
[2017-07-09] MEDS: ACETAMINOPHEN 325 MG TAB PO PRN (08:47)
--- NOTE | 2017-07-09 13:35 | HHI.PR ---
Subjective Remarks Are seen and examined today for follow-up on unable to walk. Patient doing quite well. Walking the halls with sitter. She was standing at the desk talking with everyone appropriately today. Seen her first thing this morning and she was awake, alert and orientated to person, date, year, city, state. Objective Vitals Vital Signs Date Time Temp Pulse Resp B/P (MAP) Pulse Ox O2 Delivery O2 Flow Rate FiO2 07/09/17 08:00 98.6 89 18 116/74 (88) 98 07/08/17 20:00 97.5 84 20 124/83 (97) 99 I/O 07/08/17 07/08/17 07/08/17 07/09/17 07/09/17 07/09/17 07:00 15:00 23:00 07:00 15:00 23:00 Intake Total 480 ml 240 ml Balance 480 ml 240 ml Intake Oral 480 ml 240 ml # Voids 2 2 # Bowel Movements 1 Objective Remarks GENERAL: Well-developed, well-nourished, in no acute distress. alert HEENT: Head is normocephalic without any lesions or masses noted. Facial features are symmetric. Eyes: Extraocular muscles are intact. Conjunctivae were clear. NECK: C-collar in on table at bedside CARDIAC: Regular rhythm, regular rate. S1/S2 are heard. No murmurs gallops or rubs. LUNGS: Clear to auscultation bilaterally. No wheeze, rhonchi or rales. No use of accessory muscles on inspiration or expiration. ABDOMEN: Soft, nontender. Nondistended. Bowel sounds heard in all 4 quadrants. No organomegaly or masses. Negative rebound, negative guarding EXTREMITIES: No edema, pulses are equal bilaterally. No cyanosis or clubbing NEUROLOGY: Mood and affect appear appropriate. Cranial nerves II through XII grossly intact moving all extremities, speech is clear Urinary Catheter: No Vascular Central Line Catheter: No A/P Assessment and Plan Inability to care for self, unsafe discharge Records indicate that the patient cannot walk, she was planned to [facility] to a homeless [facility], however it was deemed unsafe to discharge Patient indicates that she does have a friend that she can stay with. Continue PT/OT until patient cleared by therapies that she can perform her ADLs and ambulate unassisted Speech therapy following the patient, it would appear as if speech therapy did come to evaluation on 06/23/17. Indicates patient moderate to severe cognitive defects. Indicating patient dependent with partial help needed. Then on 06/24 as indicated that patient independent. Then after that documentation goes back to the patient is dependent with partial help needed. Speech therapy cognitive evaluation was states MOCA score 20/30, however still stating that she needs to have supervision --Physical therapy indicates patient is standby assist only, walking 900 feet, however indicating patient still needs to go to rehabilitation --Case management for discharge planning Multiple traumatic injuries Patient laceration, subdural hemorrhage, ventricular hemorrhage, nasal fracture , C6 fracture, C1-C2 subluxation, C4 transverse process fracture, right rib fracture, L1 transverse process fracture, right pubic rami fracture Continue c-collar this time Specialist no longer following patient, patient will require outpatient follow- up if discharge Patient denies any active pain. patient may use Tylenol as needed, Robaxin as needed for muscle spasms Hypertension Blood pressure is labile Amlodipine 10 mg daily Lisinopril 20 mg daily DVT prevention Sequential compression devices Discharge Planning Discussed with case management who will try to arrange discharge to home a [facility] after speech therapy evaluation Conrado Mariee Jul 09, 2017 13:35
[2017-07-09 20:00] VITALS: BP 142/73; PULSE 88; RESP 18; TEMP 99.6; O2SAT 93
--- NOTE | 2017-07-10 08:40 | HHI.PR ---
Subjective Remarks Patient seen and examined today for follow-up on unsafe discharge. Patient lying in bed counseled. Denies any new complaints. Patient is very eager to be discharged. Objective Vitals Vital Signs Date Time Temp Pulse Resp B/P (MAP) Pulse Ox O2 Delivery O2 Flow Rate FiO2 07/09/17 20:00 99.6 88 18 142/73 (96) 93 I/O 07/09/17 07/09/17 07/09/17 07/10/17 07/10/17 07/10/17 06:59 14:59 22:59 06:59 14:59 22:59 Intake Total 240 ml 1610 ml 480 ml Balance 240 ml 1610 ml 480 ml Intake Oral 240 ml 1610 ml 480 ml # Voids 2 4 2 # Bowel Movements 0 0 Objective Remarks GENERAL: Well-developed, well-nourished, in no acute distress. alert HEENT: Head is normocephalic without any lesions or masses noted. Facial features are symmetric. Eyes: Extraocular muscles are intact. Conjunctivae were clear. NECK: C-collar in on table at bedside CARDIAC: Regular rhythm, regular rate. S1/S2 are heard. No murmurs gallops or rubs. LUNGS: Clear to auscultation bilaterally. No wheeze, rhonchi or rales. No use of accessory muscles on inspiration or expiration. ABDOMEN: Soft, nontender. Nondistended. Bowel sounds heard in all 4 quadrants. No organomegaly or masses. Negative rebound, negative guarding EXTREMITIES: No edema, pulses are equal bilaterally. No cyanosis or clubbing NEUROLOGY: Mood and affect appear appropriate. Cranial nerves II through XII grossly intact moving all extremities, speech is clear Urinary Catheter: No Vascular Central Line Catheter: No A/P Assessment and Plan Inability to care for self, unsafe discharge Records indicate that the patient cannot walk, she was planned to [facility] to a homeless [facility], however it was deemed unsafe to discharge Patient indicates that she does have a friend that she can stay with. Continue PT/OT until patient cleared by therapies that she can perform her ADLs and ambulate unassisted Speech therapy following the patient, it would appear as if speech therapy did come to evaluation on 06/23/17. Indicates patient moderate to severe cognitive defects. Indicating patient dependent with partial help needed. Then on 06/24 as indicated that patient independent. Then after that documentation goes back to the patient is dependent with partial help needed. Speech therapy cognitive evaluation was states MOCA score 20/30, however still stating that she needs to have supervision --Physical therapy indicates patient is standby assist only, walking 900 feet, however indicating patient still needs to go to rehabilitation --Case management for discharge planning Multiple traumatic injuries Patient laceration, subdural hemorrhage, ventricular hemorrhage, nasal fracture , C6 fracture, C1-C2 subluxation, C4 transverse process fracture, right rib fracture, L1 transverse process fracture, right pubic rami fracture Continue c-collar this time Specialist no longer following patient, patient will require outpatient follow- up if discharge Patient denies any active pain. patient may use Tylenol as needed, Robaxin as needed for muscle spasms Hypertension Amlodipine 10 mg daily Lisinopril 20 mg daily DVT prevention Sequential compression devices Discharge Planning Discussed with case management who will try to arrange discharge to home a [facility] after speech therapy evaluation Conrado Mariee Jul 10, 2017 08:40
[2017-07-10 08:56] VITALS: BP 119/77; PULSE 72; RESP 16; TEMP 98.2; O2SAT 96
[2017-07-10] MEDS: LISINOPRIL 20 MG TAB PO SCH (10:10)
[2017-07-10] MEDS: FLUoxetine HCL 20 MG CAP PO SCH (10:10)
[2017-07-10] MEDS: ACETAMINOPHEN 325 MG TAB PO PRN (16:36)
[2017-07-10 20:00] VITALS: BP 102/69; PULSE 69; RESP 14; TEMP 97.1; O2SAT 92
[2017-07-11 08:40] VITALS: BP 117/76; PULSE 68; RESP 22; TEMP 96.6; O2SAT 95
[2017-07-11] MEDS ORDERED: LISINOPRIL 20 MG TAB PO PRN (10:00)
[2017-07-11] MEDS ORDERED: FLUoxetine HCL 20 MG CAP PO PRN (10:00)
--- NOTE | 2017-07-11 14:04 | HHI.PR ---
Subjective Remarks Patient seen and examined today for follow-up on unsafe discharge. Patient is doing much better. She always asks why she cannot be discharged. Awaiting case management for discharge planning Objective Vitals Vital Signs Date Time Temp Pulse Resp B/P (MAP) Pulse Ox O2 Delivery O2 Flow Rate FiO2 07/11/17 08:40 96.6 68 22 117/76 (90) 95 07/10/17 20:00 97.1 69 14 102/69 (80) 92 07/10/17 17:36 18 I/O 07/10/17 07/10/17 07/10/17 07/11/17 07/11/17 07/11/17 07:00 15:00 23:00 07:00 15:00 23:00 Intake Total 480 ml 500 ml 480 ml 480 ml Balance 480 ml 500 ml 480 ml 480 ml Intake Oral 480 ml 500 ml 480 ml 480 ml # Voids 2 3 1 1 # Bowel Movements 0 0 0 Objective Remarks GENERAL: Well-developed, well-nourished, in no acute distress. alert HEENT: Head is normocephalic without any lesions or masses noted. Facial features are symmetric. Eyes: Extraocular muscles are intact. Conjunctivae were clear. NECK: C-collar in on table at bedside CARDIAC: Regular rhythm, regular rate. S1/S2 are heard. No murmurs gallops or rubs. LUNGS: Clear to auscultation bilaterally. No wheeze, rhonchi or rales. No use of accessory muscles on inspiration or expiration. ABDOMEN: Soft, nontender. Nondistended. Bowel sounds heard in all 4 quadrants. No organomegaly or masses. Negative rebound, negative guarding EXTREMITIES: No edema, pulses are equal bilaterally. No cyanosis or clubbing NEUROLOGY: Mood and affect appear appropriate. Cranial nerves II through XII grossly intact moving all extremities, speech is clear Urinary Catheter: No Vascular Central Line Catheter: No A/P Assessment and Plan Inability to care for self, unsafe discharge Records indicate that the patient cannot walk, she was planned to discharge to a homeless senior care, however it was deemed unsafe to discharge Patient indicates that she does have a friend that she can stay with. Continue PT/OT until patient cleared by therapies that she can perform her ADLs and ambulate unassisted Speech therapy following the patient, it would appear as if speech therapy did come to evaluation on 06/23/17. Indicates patient moderate to severe cognitive defects. Indicating patient dependent with partial help needed. Then on 06/24 as indicated that patient independent. Then after that documentation goes back to the patient is dependent with partial help needed. Speech therapy cognitive evaluation was states MOCA score 20/30, however still stating that she needs to have supervision --Physical therapy indicates patient is standby assist only, walking 900 feet, states requires supervision at home for safety. Assisted living facility --Patient therapy indicates patient [facility] home with home health care OT and supervision --Case management for discharge planning Multiple traumatic injuries, Patient laceration, subdural hemorrhage, ventricular hemorrhage, nasal fracture , C6 fracture, C1-C2 subluxation, C4 transverse process fracture, right rib fracture, L1 transverse process fracture, right pubic rami fracture Continue c-collar this time Specialist no longer following patient, patient will require outpatient follow- up if discharge Patient denies any active pain. patient may use Tylenol as needed, Robaxin as needed for muscle spasms Hypertension, stable Amlodipine 10 mg daily Lisinopril 20 mg daily DVT prevention Sequential compression devices Discharge Planning Discussed with case management who will try to arrange discharge to home a senior care after speech therapy evaluation Conrado Mariee Jul 11, 2017 14:04
[2017-07-11 20:00] VITALS: BP 123/85; PULSE 74; RESP 20; TEMP 97.4; O2SAT 95
[2017-07-12] MEDS: ACETAMINOPHEN 325 MG TAB PO PRN ×2 (06:56→14:22)
[2017-07-12 08:00] VITALS: BP 126/76; PULSE 64; RESP 18; TEMP 98.1; O2SAT 95
[2017-07-12] MEDS: LISINOPRIL 20 MG TAB PO SCH (09:12)
[2017-07-12] MEDS: FLUoxetine HCL 20 MG CAP PO SCH (09:12)
--- NOTE | 2017-07-12 09:46 | HHI.PR ---
Objective Vitals Vital Signs Date Time Temp Pulse Resp B/P (MAP) Pulse Ox O2 Delivery O2 Flow Rate FiO2 07/12/17 07:57 18 07/11/17 20:00 97.4 74 20 123/85 (98) 95 I/O 07/11/17 07/11/17 07/11/17 07/12/17 07/12/17 07/12/17 07:00 15:00 23:00 07:00 15:00 23:00 Intake Total 480 ml 480 ml 240 ml Balance 480 ml 480 ml 240 ml Intake Oral 480 ml 480 ml 240 ml # Voids 1 2 2 # Bowel Movements 0 0 0 Objective Remarks GENERAL: Well-developed, well-nourished, in no acute distress. alert and orientated to person, year, month, day of the week. States that she is in [facility], however when notified her that she is in [place], then she acknowledges that she is in [place] HEENT: Head is normocephalic without any lesions or masses noted. Facial features are symmetric. Eyes: Extraocular muscles are intact. Conjunctivae were clear. NECK: C-collar in on table at bedside CARDIAC: Regular rhythm, regular rate. S1/S2 are heard. No murmurs gallops or rubs. LUNGS: Clear to auscultation bilaterally. No wheeze, rhonchi or rales. No use of accessory muscles on inspiration or expiration. ABDOMEN: Soft, nontender. Nondistended. Bowel sounds heard in all 4 quadrants. No organomegaly or masses. Negative rebound, negative guarding EXTREMITIES: No edema, pulses are equal bilaterally. No cyanosis or clubbing NEUROLOGY: Mood and affect appear appropriate. Cranial nerves II through XII grossly intact moving all extremities, speech is clear Urinary Catheter: No Vascular Central Line Catheter: No A/P Assessment and Plan Inability to care for self, unsafe discharge Records indicate that the patient cannot walk, she was planned to discharge to a homeless senior care, however it was deemed unsafe to discharge Patient indicates that she does have a friend that she can stay with. Continue PT/OT until patient cleared by therapies that she can perform her ADLs and ambulate unassisted Speech therapy following the patient, it would appear as if speech therapy did come to evaluation on 06/23/17. Indicates patient moderate to severe cognitive defects. Indicating patient dependent with partial help needed. Then on 06/24 as indicated that patient independent. Then after that documentation goes back to the patient is dependent with partial help needed. Speech therapy cognitive evaluation was states MOCA score 20/30, however still stating that she needs to have supervision --Physical therapy indicates patient is standby assist only, walking 900 feet, states requires supervision at home for safety. Assisted living facility --Patient therapy indicates patient [facility] home with home health care OT and supervision --Case management for discharge planning --Possible need to obtain psych evaluation for capacity Multiple traumatic injuries, Patient laceration, subdural hemorrhage, ventricular hemorrhage, nasal fracture , C6 fracture, C1-C2 subluxation, C4 transverse process fracture, right rib fracture, L1 transverse process fracture, right pubic rami fracture Continue c-collar this time Specialist no longer following patient, patient will require outpatient follow- up if discharge Patient denies any active pain. patient may use Tylenol as needed, Robaxin as needed for muscle spasms Hypertension, stable Amlodipine 10 mg daily Lisinopril 20 mg daily DVT prevention Sequential compression devices Discharge Planning planning and analysis manager discharge planning possibly need to get psych evaluation for capability. Conrado Mariee Jul 12, 2017 09:46
[2017-07-12 20:00] VITALS: BP 125/78; PULSE 62; RESP 16; TEMP 97.2; O2SAT 95
[2017-07-13 08:39] VITALS: BP 116/77; PULSE 71; RESP 18; TEMP 98.4; O2SAT 96
[2017-07-13] MEDS: FLUoxetine HCL 20 MG CAP PO SCH (09:48)
[2017-07-13] MEDS: ACETAMINOPHEN 325 MG TAB PO PRN ×2 (09:49→18:18)
[2017-07-13] MEDS: LISINOPRIL 20 MG TAB PO SCH (09:49)
--- NOTE | 2017-07-13 11:26 | HHI.PR ---
Subjective Remarks Follow-up for unsafe discharge, pelvic fractures. Patient has no acute complaints. Patient was noted not to be wearing her cervical collar. Sitter states it is in a bag in the closet. Objective Vitals Vital Signs Date Time Temp Pulse Resp B/P (MAP) Pulse Ox O2 Delivery O2 Flow Rate FiO2 07/13/17 08:39 98.4 71 18 116/77 (90) 96 07/12/17 20:00 97.2 62 16 125/78 (94) 95 07/12/17 15:22 18 I/O 07/12/17 07/12/17 07/12/17 07/13/17 07/13/17 07/13/17 07:00 15:00 23:00 07:00 15:00 23:00 Intake Total 240 ml 520 ml 0 ml 0 ml Balance 240 ml 520 ml 0 ml 0 ml Intake Oral 240 ml 520 ml IV Total 0 ml 0 ml # Voids 2 3 # Bowel Movements 0 2 Objective Remarks GENERAL: Pleasant patient in no apparent distress standing near the window when I enter the room. Sitter at bedside. SKIN: Warm and dry. Long scar to left frontal bone, nasal bridge. CARDIOVASCULAR: Regular rate and rhythm. RESPIRATORY: No accessory muscle use. Clear to auscultation. Breath sounds equal bilaterally. GASTROINTESTINAL: Abdomen soft, non-tender, non-distended. MUSCULOSKELETAL: 2+ DP pulses bilaterally. NEUROLOGICAL: Awake and alert. Patient does not know the city or month, but is otherwise oriented. PSYCHIATRIC: Appropriate mood and affect. Urinary Catheter: No Vascular Central Line Catheter: No A/P Problem List: (1) Inability to walk ICD Code: R26.2 - Difficulty in walking, not elsewhere classified Status: Acute (2) Alcohol dependence in controlled environment ICD Code: F10.20 - Alcohol dependence, uncomplicated Status: Acute (3) Facial injury ICD Code: S09.93XA - Unspecified injury of face, initial encounter Status: Acute (4) Fall ICD Code: W19.XXXA - Unspecified fall, initial encounter Status: Acute (5) Hypertension ICD Code: I10 - Essential (primary) hypertension Status: Acute (6) Pelvic fracture ICD Code: S32.9XXA - Fracture of unspecified parts of lumbosacral spine and pelvis, initial encounter for closed fracture Status: Acute (7) C1-C2 subluxation ICD Code: S13.120A - Subluxation of C1/C2 cervical vertebrae, initial encounter Status: Acute (8) C6 cervical fracture ICD Code: S12.500A - Unspecified displaced fracture of sixth cervical vertebra , initial encounter for closed fracture Status: Acute (9) Traumatic brain injury ICD Code: S06.9X9A - Unspecified intracranial injury with loss of consciousness of unspecified duration, initial encounter Status: Acute (10) Nasal fracture ICD Code: S02.2XXA - Fracture of nasal bones, initial encounter for closed fracture Status: Acute (11) Mild neurocognitive disorder ICD Code: G31.84 - Mild cognitive impairment, so stated Status: Acute (12) Intracranial bleed ICD Code: I62.9 - Nontraumatic intracranial hemorrhage, unspecified Status: Acute Assessment and Plan Inability to care for self, unsafe discharge: due to trauma and confusion -PT/OT following. Confusion: Stable. Likely attributed to previous brain hemorrhage and/or chronic alcohol abuse. -Ammonia level normal. -Continue sitter and bed alarm -ST performed cognitive evaluation indicating moderate to severe cognitive deficits. -07/08 MOCA score 20/30 indicating again moderate cognitive deficits -Psych was consulted, Mini mental good at 28/30. I spoke with Dr Nelson and note appreciated. He cannot give direction regarding capacity as there is no specific issue at hand. Multiple traumatic injuries Forehead laceration, subdural hemorrhage, ventricular hemorrhage, nasal fracture, C6 fracture, C1-C2 subluxation, C4 transverse process fracture, right rib fracture, L1 transverse process fracture, right pubic rami fracture Continue c-collar Specialist no longer following patient, patient will require outpatient follow- up if discharge May use Tylenol as needed. R groin pain. New pelvis x-ray obtained 06/30 is stable. Pain improved. [place] discontinued. Hypertension: Stable Amlodipine 10 mg daily Lisinopril 20 mg daily DVT prevention Sequential compression devices Discharge Planning [facility] assisting with SSI/Medicaid application. 06/30: I spoke with physical therapist today who states patient is ambulating well and has cleared the patient from physical therapy stand point. Patient is not fully oriented, and has episodes of confusion. Will need placement. Problem Qualifiers (1) Hypertension: Qualified Codes: I10 - Essential (primary) hypertension Azul Sarkar Jul 13, 2017 11:26
--- NOTE | 2017-07-13 15:08 | PD.PSY.CON ---
Provisional Diagnosis Admission Date Jun 22, 2017 at 16:59 [place] I. 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 Deferred History of Present Illness Service Psychiatry Consult Requested By Reason for Consult Decision-making capacity Primary Care Physician No Primary Care Physician HPI The patient is a 57-year-old woman, and this moment homeless, she is from [place], single, retired, without any previous psychiatric history, no previous psychiatric hospitalizations, no previous suicidal attempts, hospitalized due to Multiple traumatic injuries : Patient laceration, subdural hemorrhage, ventricular hemorrhage, nasal fracture, C6 fracture, C1-C2 subluxation, C4 transverse process fracture, right rib fracture, L1 transverse process fracture, right pubic rami fracture. Patient presents with memory problems that seems to be interfering with coordinating a safe discharge. She was consulted for decision making capacity. The reason for capacity was not specified. On psychiatric evaluation patient is calm, cooperative and pleasant. She is found playing in the table with sitter. Patient reports good mood, she says that she feels okay here. She says in the last that she has been feeling sad due to her medical conditions and the length of hospitalizations, but today feels much better. She reports good sleep, good concentration, good appetite. Denies hopelessness, denies helplessness, denies worthlessness, denies suicidal or homicidal ideation, denies visual and auditory hallucinations. Patient at this moment is oriented 3, with good attention, no fluctuation of consciousness, and not a gross cognitive impairment present. JANETT is 28/30 at this moment. However, she does become confused at times, for example at some point in the interview she believes she saw me yesterday, and she also told me that her boyfriend is waiting for her. As per nurses patient has been episodically confused, agitated and disoriented. No aggressive behavior reported. Review of Systems Constitutional: DENIES: Diaphoretic episodes, Fatigue, Fever, Weight gain, Weight loss, Chills, Dizziness, Change in appetite, Night Sweats Endocrine: DENIES: Abnorml menstrual pattern, Heat/cold intolerance, Polydipsia , Polyuria, Polyphagia Ears, nose, mouth, throat: DENIES: Tinnitus, Hearing loss, Vertigo, Nasal discharge, Oral lesions, Throat pain, Hoarseness, Ear Pain, Running Nose, Epistaxis, Sinus Pain, Toothache, Odynophagia Respiratory: DENIES: Apneas, Cough, Snoring, Wheezing, Hemoptysis, Sputum production, Shortness of breath Cardiovascular: DENIES: Chest pain, Palpitations, Syncope, Dyspnea on Exertion , PND, Lower Extremity Edema, Orthopnea, Claudication Gastrointestinal: DENIES: Abdominal pain, Black stools, Bloody stools, Constipation, Diarrhea, Nausea, Vomiting, Difficulty Swallowing, Anorexia Musculoskeletal: DENIES: Joint pain, Muscle aches, Stiffness, Joint Swelling, Back pain, Neck pain Hematologic/lymphatic: DENIES: Bruising, Lymphadenopathy Immunologic/allergic: DENIES: Eczema, Urticaria Neurologic: DENIES: Abnormal gait, Headache, Localized weakness, Paresthesias, Seizures, Speech Problems, Tremor, Poor Balance Psychiatric: COMPLAINS OF: Confusion, DENIES: Anxiety, Mood changes, Depression , Hallucinations, Agitation, Suicidal Ideation, Homicidal Ideation, Delusions Past Family Social History Coded Allergies: No Known Allergies (Unverified , 06/22/17) Active Scripts Lisinopril (Lisinopril) 20 Mg Tab, 20 MG PO DAILY for Blood Pressure Management , #31 TAB Prov:Conrado Mariee 07/07/17 Fluoxetine (Fluoxetine) 20 Mg Capsule, 20 MG PO DAILY for Depression Control, # 30 CAP Prov:Conrado Mariee 07/07/17 Amlodipine (Norvasc) 5 Mg Tab, 10 MG PO DAILY for Blood Pressure Management, # 30 TAB Prov:Conrado Mariee 07/07/17 Walker with Front Wheels (Walker with Front Wheels) 1 Mis Mis, 1 EA .ROUTE DIRECTED, #1 EA 0 Refills Prov:Cha RodriguezP 06/19/17 Sennosides-Docusate Sodium (Senna Plus 8.6-50 mg) 1 Tab Tab, 1 TAB PO BID for Constipation for 30 Days, TAB Prov:Cha Rodriguez [employer] 06/19/17 Fluoxetine (Fluoxetine) 20 Mg Capsule, 20 MG PO DAILY for Depression Control for 30 Days, CAP Prov:Cha Rodriguez [employer] 06/19/17 Methocarbamol (Methocarbamol) 500 Mg Tab, 500 MG PO Q8HR for Muscle Spasm, #30 TAB Prov:Chloé Dalal [employer] 06/16/17 Labetalol (Labetalol) 100 Mg Tab, 100 MG PO Q12HR for Blood Pressure Management for 30 Days, TAB Prov:Chloé Dalal [employer] 06/16/17 Lisinopril (Lisinopril) 20 Mg Tab, 40 MG PO DAILY for Blood Pressure Management , #30 TAB Prov:Chloé Dalal [employer] 06/16/17 Oxycodone-Acetaminophen (Oxycodone-Acetaminophen) 10-325 mg Tab, 1 TAB PO Q4H Y for PAIN SCALE 1 TO 5, #20 TAB Prov:Neha Nicole MD 06/16/17 Current Medications Medications (Trade) Dose Ordered Sig/Geoffrey Route Start Time Stop Time Status Last Admin (Tylenol) 650 mg Q4H PRN PO 06/22/17 17:00 07/01/17 12:21 (Tylenol) 650 mg Q6H PRN PO 06/22/17 17:00 07/13/17 09:49 (Milk Of Magnesia Liq) 30 ml Q12H PRN PO 06/22/17 17:00 (Norvasc) 10 mg DAILY PO 06/23/17 09:00 07/13/17 09:48 (PROzac) 20 mg DAILY PO 06/23/17 09:00 07/13/17 09:48 (Zofran Odt) 4 mg Q6H PRN PO 06/26/17 12:15 (Prinivil) 20 mg DAILY PO 06/27/17 09:00 07/13/17 09:49 Family History No family psychiatric history Social History Patient was born and raised in [place], she is homeless at this moment, single, unemployed, highest level of education is college Patient's Strengths (min. 2) Level of education Physical Exam Vital Signs Vital Signs Date Time Temp Pulse Resp B/P (MAP) Pulse Ox O2 Delivery O2 Flow Rate FiO2 07/13/17 08:39 98.4 71 18 116/77 (90) 96 I/O 07/13/17 07/13/17 07/13/17 07:59 15:59 23:59 Intake Total 0 ml 500 ml Balance 0 ml 500 ml Mental Status Examination Appearance woman, with a scar in her forehead, regular street clothing, calm and cooperative Speech: Unremarkable, Pressured Orientation: x3 Memory: Unremarkable Thought Process: Logical, Goal Directed, Linear Thought Content: Unremarkable Hallucination Type: None Attention and Concentration: Good Suicidal Ideation: No Previous Suicide Attempts: No Homicidal Ideation: No Previous Homicide Attempts: No Insight: Good Affect: Good Mood: Appropriate Motor Activity: Normal gait Assessment & Plan Problem List: (1) 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 At this moment she denies pathology of depression, anxiety, vincent or psychosis. She does reports mild to moderate sadness due to her current situation, and the length of her hospitalization. She denies hopelessness, she denies helplessness, she denies anhedonia, denies problems with sleep, with concentration and appetite. She denies suicidal and homicidal ideation. She denies visual and auditory hallucinations. She does present with periodic confusion, as per nurses patient presents to confuse people, becomes disoriented and agitated, but easily redirectable. Her Mini-Mental State today is 28-30, missing 2 points in immediate recall, she just remembered two of three words and lost a point in executive function. However, highest score in Mini-Mental status does not completely rule out cognitive impairment especially patient with high education. Patient reports that she is willing to continue her medical treatment and follow medical recommendations. She does not meet criteria for psychiatric admission at this moment. Psychoeducation motivation, hope and support provided. Agree with continue Prozac 20 mg for depressive symptoms. There is no clear or specific question of capacity at this moment, decision-making capacity should be about particular and a specific situations and might change from moment to moment according with mental status. If you have any questions please contact me directly to ext [phone]. Consul appreciated. Assessment & Plan Estimated LOS: Nilton Hwang MD Jul 13, 2017 15:08
[2017-07-13 20:00] VITALS: BP 125/83; PULSE 69; RESP 20; TEMP 97.5; O2SAT 94
[2017-07-14] MEDS: LISINOPRIL 20 MG TAB PO SCH (08:31)
[2017-07-14] MEDS: FLUoxetine HCL 20 MG CAP PO SCH (08:31)
[2017-07-14] MEDS: ACETAMINOPHEN 325 MG TAB PO PRN ×2 (08:32→16:22)
[2017-07-14 09:43] VITALS: BP 130/81; PULSE 70; RESP 18; TEMP 97.6; O2SAT 96
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
[2017-07-14 20:00] VITALS: BP 127/81; RESP 18; TEMP 97.5; O2SAT 94
[2017-07-15 08:00] VITALS: BP 140/93; PULSE 77; RESP 16; TEMP 98.1; O2SAT 98
[2017-07-15] MEDS: LISINOPRIL 20 MG TAB PO SCH (08:30)
[2017-07-15] MEDS: FLUoxetine HCL 20 MG CAP PO SCH (08:30)
[2017-07-15] MEDS: ACETAMINOPHEN 325 MG TAB PO PRN (08:31)
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
[2017-07-15] MEDS ORDERED: LORazepam 0.5 MG TAB PO ONE (14:30)
[2017-07-15 20:00] VITALS: BP 147/86; PULSE 71; RESP 17; TEMP 96; O2SAT 97
[2017-07-16 08:27] VITALS: BP 143/98; PULSE 106; RESP 19; TEMP 98.1; O2SAT 93
[2017-07-16] MEDS: LISINOPRIL 20 MG TAB PO SCH (09:02)
[2017-07-16] MEDS: FLUoxetine HCL 20 MG CAP PO SCH (09:02)
[2017-07-16] MEDS: ALPRAZolam 0.5 MG TAB PO PRN (12:14)
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
[2017-07-16] MEDS ORDERED: HALOPERIDOL LACTATE 5 MG/ML AMP IM PRN (18:30)
[2017-07-16 20:45] VITALS: BP 113/74; PULSE 105; RESP 16; TEMP 97.7; O2SAT 94
[2017-07-17 08:00] VITALS: BP 122/81; PULSE 72; RESP 16; TEMP 97.9; O2SAT 93
[2017-07-17] MEDS: LISINOPRIL 20 MG TAB PO SCH (08:43)
[2017-07-17] MEDS: ACETAMINOPHEN 325 MG TAB PO PRN ×2 (08:43→17:26)
[2017-07-17] MEDS: ALPRAZolam 0.5 MG TAB PO PRN ×2 (08:43→17:25)
[2017-07-17] MEDS: FLUoxetine HCL 20 MG CAP PO SCH (08:43)
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
[2017-07-17 20:04] VITALS: BP 109/74; PULSE 69; RESP 12; TEMP 98.2; O2SAT 93
[2017-07-18] MEDS: FLUoxetine HCL 20 MG CAP PO SCH (07:54)
[2017-07-18] MEDS: LISINOPRIL 20 MG TAB PO SCH (07:54)
[2017-07-18 08:00] VITALS: BP 108/76; PULSE 75; RESP 20; TEMP 98.3; O2SAT 94
--- NOTE | 2017-07-18 09:16 | HHI.PR ---
Subjective Remarks Follow-up for trauma, unsafe discharge. Patient states she is worried about her dogs. No other acute complaints. Objective Vitals Vital Signs Date Time Temp Pulse Resp B/P (MAP) Pulse Ox O2 Delivery O2 Flow Rate FiO2 07/18/17 08:00 98.3 75 20 108/76 (87) 94 07/17/17 20:04 98.2 69 12 109/74 (86) 93 07/17/17 09:43 20 I/O 07/17/17 07/17/17 07/17/17 07/18/17 07/18/17 07/18/17 07:00 15:00 23:00 07:00 15:00 23:00 Intake Total 350 ml 400 ml Balance 350 ml 400 ml Intake Oral 350 ml 400 ml # Voids 2 1 4 1 # Bowel Movements 1 0 Objective Remarks GENERAL: Patient in no apparent distress. CARDIOVASCULAR: Regular rate and rhythm. RESPIRATORY: No accessory muscle use. Clear to auscultation. Breath sounds equal bilaterally. MUSCULOSKELETAL: 2+ DP pulses bilaterally. NEUROLOGICAL: Awake and alert. Normal speech. PSYCHIATRIC: Slightly anxious mood. Urinary Catheter: No Vascular Central Line Catheter: No A/P Problem List: (1) Inability to walk ICD Code: R26.2 - Difficulty in walking, not elsewhere classified Status: Acute (2) Alcohol dependence in controlled environment ICD Code: F10.20 - Alcohol dependence, uncomplicated Status: Acute (3) Facial injury ICD Code: S09.93XA - Unspecified injury of face, initial encounter Status: Acute (4) Fall ICD Code: W19.XXXA - Unspecified fall, initial encounter Status: Acute (5) Hypertension ICD Code: I10 - Essential (primary) hypertension Status: Acute (6) Pelvic fracture ICD Code: S32.9XXA - Fracture of unspecified parts of lumbosacral spine and pelvis, initial encounter for closed fracture Status: Acute (7) C1-C2 subluxation ICD Code: S13.120A - Subluxation of C1/C2 cervical vertebrae, initial encounter Status: Acute (8) C6 cervical fracture ICD Code: S12.500A - Unspecified displaced fracture of sixth cervical vertebra , initial encounter for closed fracture Status: Acute (9) Traumatic brain injury ICD Code: S06.9X9A - Unspecified intracranial injury with loss of consciousness of unspecified duration, initial encounter Status: Acute (10) Nasal fracture ICD Code: S02.2XXA - Fracture of nasal bones, initial encounter for closed fracture Status: Acute (11) Mild neurocognitive disorder ICD Code: G31.84 - Mild cognitive impairment, so stated Status: Acute (12) Intracranial bleed ICD Code: I62.9 - Nontraumatic intracranial hemorrhage, unspecified Status: Acute Assessment and Plan Inability to care for self, unsafe discharge: due to trauma and confusion -PT/OT following. Confusion/Anxiety/agitation: Likely attributed to previous brain hemorrhage and/ or chronic alcohol abuse. -Ammonia level normal. -Continue sitter and bed alarm -ST performed cognitive evaluation indicating moderate to severe cognitive deficits. 07/08 MOCA score 20/30 indicating again moderate cognitive deficits. ST following. -Psych was consulted, Mini mental good at 28. I spoke with Dr Nelson and note appreciated. He cannot give direction regarding capacity as there is no specific issue at hand. -07/15: ST has reevaluated patient and states she has mild cognitive deficits/ moments of confusion, but overall is improving. -07/16: Patient trying to elope. Admits to feeling anxious. Xanax 0.5 mg po tid ordered as nurse states Ativan did not help yesterday. Already on Prozac. I discussed patient with Dr. Nelson, psychiatrist, and we agree patient does not have capacity to sign out AMA. If needed patient can be placed in soft restraints for her safety and the safety of staff. Later in the day patient did elope. She has apparently been violent as well. Low dose Haldol ordered prn for agitation. If restraints needed, will order. -07/18: After my interview and exam patient again tried to elope again and was found in the elevator. The patient states she needs to go get her keys for her car. We informed the patient that she does not have a car here. The charge nurse redirected the patient to her room. Multiple traumatic injuries Forehead laceration, subdural hemorrhage, ventricular hemorrhage, nasal fracture, C6 fracture, C1-C2 subluxation, C4 transverse process fracture, right rib fracture, L1 transverse process fracture, right pubic rami fracture Continue c-collar Specialist no longer following patient, patient will require outpatient follow- up if discharge May use Tylenol as needed. R groin pain. New pelvis x-ray obtained 06/30 is stable. Pain improved. [place] discontinued. Hypertension: Stable. Amlodipine 10 mg daily Lisinopril 20 mg daily DVT prevention Sequential compression devices Discharge Planning [facility] assisting with SSI/Medicaid application. 06/30: I spoke with physical therapist today who states patient is ambulating well and has cleared the patient from physical therapy stand point. Has episodes of confusion which I have personally witnessed which are concerning for the patient's safety; I am concerned for self neglect if she were to be discharged without supervision. CM to continue to work on placement. Problem Qualifiers (1) Hypertension: Qualified Codes: I10 - Essential (primary) hypertension Azul Sarkar Jul 18, 2017 09:16
[2017-07-19 08:00] VITALS: BP 123/80; PULSE 93; RESP 20; TEMP 97.8; O2SAT 95
[2017-07-19] MEDS: FLUoxetine HCL 20 MG CAP PO SCH (09:04)
[2017-07-19] MEDS: LISINOPRIL 20 MG TAB PO SCH (09:04)
[2017-07-19] MEDS: ALPRAZolam 0.5 MG TAB PO PRN ×2 (09:06→15:28)
--- NOTE | 2017-07-19 09:10 | HHI.PR ---
Subjective Remarks Follow-up for unsafe discharge due to confusion. No acute issues. Objective Vitals Vital Signs Date Time Temp Pulse Resp B/P (MAP) Pulse Ox O2 Delivery O2 Flow Rate FiO2 07/19/17 08:00 97.8 93 20 123/80 (94) 95 I/O 07/18/17 07/18/17 07/18/17 07/19/17 07/19/17 07/19/17 07:00 15:00 23:00 07:00 15:00 23:00 Intake Total 480 ml Balance 480 ml Intake Oral 480 ml # Voids 1 1 3 # Bowel Movements 0 Objective Remarks GENERAL: Pleasant patient in no apparent distress. CARDIOVASCULAR: Regular rate and rhythm. RESPIRATORY: No accessory muscle use. Clear to auscultation. Breath sounds equal bilaterally. NEUROLOGICAL: Awake and alert. Normal speech. PSYCHIATRIC: Normal mood and affect. Urinary Catheter: No Vascular Central Line Catheter: No A/P Problem List: (1) Inability to walk ICD Code: R26.2 - Difficulty in walking, not elsewhere classified Status: Acute (2) Alcohol dependence in controlled environment ICD Code: F10.20 - Alcohol dependence, uncomplicated Status: Acute (3) Facial injury ICD Code: S09.93XA - Unspecified injury of face, initial encounter Status: Acute (4) Fall ICD Code: W19.XXXA - Unspecified fall, initial encounter Status: Acute (5) Hypertension ICD Code: I10 - Essential (primary) hypertension Status: Acute (6) Pelvic fracture ICD Code: S32.9XXA - Fracture of unspecified parts of lumbosacral spine and pelvis, initial encounter for closed fracture Status: Acute (7) C1-C2 subluxation ICD Code: S13.120A - Subluxation of C1/C2 cervical vertebrae, initial encounter Status: Acute (8) C6 cervical fracture ICD Code: S12.500A - Unspecified displaced fracture of sixth cervical vertebra , initial encounter for closed fracture Status: Acute (9) Traumatic brain injury ICD Code: S06.9X9A - Unspecified intracranial injury with loss of consciousness of unspecified duration, initial encounter Status: Acute (10) Nasal fracture ICD Code: S02.2XXA - Fracture of nasal bones, initial encounter for closed fracture Status: Acute (11) Mild neurocognitive disorder ICD Code: G31.84 - Mild cognitive impairment, so stated Status: Acute (12) Intracranial bleed ICD Code: I62.9 - Nontraumatic intracranial hemorrhage, unspecified Status: Acute Assessment and Plan Inability to care for self, unsafe discharge: due to trauma and confusion -PT/OT following. Confusion/Anxiety/agitation: Likely attributed to previous brain hemorrhage and/ or chronic alcohol abuse. -Ammonia level normal. -Continue sitter and bed alarm -ST performed cognitive evaluation indicating moderate to severe cognitive deficits. 07/08 MOCA score 20/30 indicating again moderate cognitive deficits. ST following. -Psych was consulted, Mini mental good at 28/30. I spoke with Dr Nelson and note appreciated. He cannot give direction regarding capacity as there is no specific issue at hand. -07/15: ST has reevaluated patient and states she has mild cognitive deficits/ moments of confusion, but overall is improving. -07/16: Patient trying to elope. Admits to feeling anxious. Xanax 0.5 mg po tid ordered as nurse states Ativan did not help yesterday. Already on Prozac. I discussed patient with Dr. Nelson, psychiatrist, and we agree patient does NOT have capacity to sign out AMA. If needed patient can be placed in soft restraints for her safety and the safety of staff. Later in the day patient did elope. She has apparently been violent as well. Low dose Haldol ordered prn for agitation. If restraints needed, will order. -07/18: After my interview and exam patient again tried to elope again and was found in the elevator. The patient states she needs to go get her keys for her car. We informed the patient that she does not have a car here. The charge nurse redirected the patient to her room. -07/19. Patient calm and cooperative. Multiple traumatic injuries Forehead laceration, subdural hemorrhage, ventricular hemorrhage, nasal fracture, C6 fracture, C1-C2 subluxation, C4 transverse process fracture, right rib fracture, L1 transverse process fracture, right pubic rami fracture Continue c-collar Specialist no longer following patient, patient will require outpatient follow- up if discharge May use Tylenol as needed. R groin pain. New pelvis x-ray obtained 06/30 is stable. Pain improved. [place] discontinued. Patient has been ambulating without issue. Hypertension: Stable. Amlodipine 10 mg daily Lisinopril 20 mg daily DVT prevention OOB ad rola, sequential compression devices if in bed Discharge Planning [facility] assisting with SSI/Medicaid application. 06/30: I spoke with physical therapist today who states patient is ambulating well and has cleared the patient from physical therapy stand point. Has episodes of confusion which I have personally witnessed which are concerning for the patient's safety; I am concerned for self neglect if she were to be discharged without supervision. CM to continue to work on placement. Problem Qualifiers (1) Hypertension: Qualified Codes: I10 - Essential (primary) hypertension Azul Sarkar Jul 19, 2017 09:10
[2017-07-19 20:00] VITALS: BP 108/78; PULSE 73; RESP 20; TEMP 98; O2SAT 94
[2017-07-20 08:00] VITALS: BP 117/83; PULSE 73; RESP 20; TEMP 97.4; O2SAT 97
--- NOTE | 2017-07-20 08:32 | HHI.PR ---
Subjective Remarks Patient seen and examined today for follow-up on unsafe discharge, cognition issues. Patient is upset because psychiatry has claimed her incompetent to make her decisions about discharge. Patient denies any new complaints. Discharge planning per case management and psychiatry Objective Vitals Vital Signs Date Time Temp Pulse Resp B/P (MAP) Pulse Ox O2 Delivery O2 Flow Rate FiO2 07/20/17 08:00 97.4 73 20 117/83 (94) 97 07/19/17 20:00 98.0 73 20 108/78 (88) 94 I/O 07/19/17 07/19/17 07/19/17 07/20/17 07/20/17 07/20/17 07:00 15:00 23:00 07:00 15:00 23:00 Intake Total 480 ml 120 ml 120 ml 60 ml Balance 480 ml 120 ml 120 ml 60 ml Intake Oral 480 ml 120 ml 120 ml 60 ml # Voids 3 5 5 1 # Bowel Movements 0 0 0 Objective Remarks GENERAL: Well-developed, well-nourished, in no acute distress. alert and orientated to person, year, month, day of the week. She indicates that she is from [place], but she knows that she states that she is in [place] HEENT: Head is normocephalic without any lesions or masses noted. Facial features are symmetric. Eyes: Extraocular muscles are intact. Conjunctivae were clear. NECK: C-collar in on table at bedside CARDIAC: Regular rhythm, regular rate. S1/S2 are heard. No murmurs gallops or rubs. LUNGS: Clear to auscultation bilaterally. No wheeze, rhonchi or rales. No use of accessory muscles on inspiration or expiration. ABDOMEN: Soft, nontender. Nondistended. Bowel sounds heard in all 4 quadrants. No organomegaly or masses. Negative rebound, negative guarding EXTREMITIES: No edema, pulses are equal bilaterally. No cyanosis or clubbing NEUROLOGY: Mood and affect appear appropriate. Cranial nerves II through XII grossly intact moving all extremities, speech is clear Urinary Catheter: No Vascular Central Line Catheter: No A/P Assessment and Plan Inability to care for self, unsafe discharge Records indicate that the patient cannot walk, she was planned to discharge to a homeless nursing home, however it was deemed unsafe to discharge Patient indicates that she does have a friend that she can stay with. Continue PT/OT until patient cleared by therapies that she can perform her ADLs and ambulate unassisted Speech therapy following the patient, it would appear as if speech therapy did come to evaluation on 06/23/17. Indicates patient moderate to severe cognitive defects. Indicating patient dependent with partial help needed. Then on 06/24 as indicated that patient independent. Then after that documentation goes back to the patient is dependent with partial help needed. Speech therapy cognitive evaluation was states MOCA score 20/30, however still stating that she needs to have supervision --Physical therapy indicates patient is standby assist only, walking 900 feet, states requires supervision at home for safety. Assisted living facility --Patient therapy indicates patient [facility] home with home health care OT and supervision --Case management for discharge planning --Psychiatry originally evaluated the patient and indicates that there is no question about capacity. MIni mental state 28-30, owever it is documented that psychiatry was called and indicated that patient is not competent to make decisions about AMA discharge. --Psychiatry will need to continue to follow patient, patient may need surrogacy if unable to make her own decisions. Case management will also be notified. Multiple traumatic injuries, Patient laceration, subdural hemorrhage, ventricular hemorrhage, nasal fracture , C6 fracture, C1-C2 subluxation, C4 transverse process fracture, right rib fracture, L1 transverse process fracture, right pubic rami fracture Continue c-collar this time Specialist no longer following patient, patient will require outpatient follow- up if discharge Patient denies any active pain. patient may use Tylenol as needed, Robaxin as needed for muscle spasms Hypertension, stable Amlodipine 10 mg daily Lisinopril 20 mg daily DVT prevention Sequential compression devices Discharge Planning recycling program manager consulted since patient does not have capacity to make discharge decisions. We'll need to find family for healthcare surrogacy and/or go through legal channels to obtain court ordered surrogacy. Conrado Mariee Jul 20, 2017 08:32
[2017-07-20] MEDS: LISINOPRIL 20 MG TAB PO SCH (09:36)
[2017-07-20] MEDS: FLUoxetine HCL 20 MG CAP PO SCH (09:37)
[2017-07-20 20:00] VITALS: BP 108/72; PULSE 71; RESP 20; TEMP 97.8; O2SAT 100
[2017-07-21 08:00] VITALS: BP 127/79; PULSE 71; RESP 20; TEMP 96.5; O2SAT 94
[2017-07-21] MEDS: LISINOPRIL 20 MG TAB PO SCH (08:49)
[2017-07-21] MEDS: FLUoxetine HCL 20 MG CAP PO SCH (08:49)
--- NOTE | 2017-07-21 11:30 | HHI.PR ---
Subjective Remarks Patient seen and examined today for follow-up on a safe discharge due to cognition/competency issues. Patient denies any new complaints today. No change in clinical status. Awaiting case management for discharge planning Objective Vitals Vital Signs Date Time Temp Pulse Resp B/P (MAP) Pulse Ox O2 Delivery O2 Flow Rate FiO2 07/21/17 08:00 96.5 71 20 127/79 (95) 94 07/20/17 20:00 97.8 71 20 108/72 (84) 100 I/O 07/20/17 07/20/17 07/20/17 07/21/17 07/21/17 07/21/17 07:00 15:00 23:00 07:00 15:00 23:00 Intake Total 120 ml 60 ml 480 ml 480 ml Balance 120 ml 60 ml 480 ml 480 ml Intake Oral 120 ml 60 ml 480 ml 480 ml # Voids 5 1 4 3 # Bowel Movements 0 0 0 Objective Remarks GENERAL: Well-developed, well-nourished, in no acute distress. alert and orientated to person, year, month, day of the week. She indicates that she is from [place], but she knows that she states that she is in [place] HEENT: Head is normocephalic without any lesions or masses noted. Facial features are symmetric. Eyes: Extraocular muscles are intact. Conjunctivae were clear. NECK: C-collar in on table at bedside CARDIAC: Regular rhythm, regular rate. S1/S2 are heard. No murmurs gallops or rubs. LUNGS: Clear to auscultation bilaterally. No wheeze, rhonchi or rales. No use of accessory muscles on inspiration or expiration. ABDOMEN: Soft, nontender. Nondistended. Bowel sounds heard in all 4 quadrants. No organomegaly or masses. Negative rebound, negative guarding EXTREMITIES: No edema, pulses are equal bilaterally. No cyanosis or clubbing NEUROLOGY: Mood and affect appear appropriate. Cranial nerves II through XII grossly intact moving all extremities, speech is clear Urinary Catheter: No Vascular Central Line Catheter: No A/P Assessment and Plan Inability to care for self, unsafe discharge Records indicate that the patient cannot walk, she was planned to discharge to a homeless retirement, however it was deemed unsafe to discharge Patient indicates that she does have a friend that she can stay with. Continue PT/OT until patient cleared by therapies that she can perform her ADLs and ambulate unassisted Speech therapy following the patient, it would appear as if speech therapy did come to evaluation on 06/23/17. Indicates patient moderate to severe cognitive defects. Indicating patient dependent with partial help needed. Then on 06/24 as indicated that patient independent. Then after that documentation goes back to the patient is dependent with partial help needed. Speech therapy cognitive evaluation was states MOCA score 20/30, however still stating that she needs to have supervision --Physical therapy indicates patient is standby assist only, walking 900 feet, states requires supervision at home for safety. Assisted living facility --Patient therapy indicates patient [facility] home with home health care OT and supervision --Case management for discharge planning --Psychiatry originally evaluated the patient and indicates that there is no question about capacity. MIni mental state 28-30, owever it is documented that psychiatry was called and indicated that patient is not competent to make decisions about AMA discharge. --Psychiatry will need to continue to follow patient, patient may need surrogacy if unable to make her own decisions. Case management will also be notified. Multiple traumatic injuries, Patient laceration, subdural hemorrhage, ventricular hemorrhage, nasal fracture , C6 fracture, C1-C2 subluxation, C4 transverse process fracture, right rib fracture, L1 transverse process fracture, right pubic rami fracture Continue c-collar this time Specialist no longer following patient, patient will require outpatient follow- up if discharge Patient denies any active pain. patient may use Tylenol as needed, Robaxin as needed for muscle spasms Hypertension, stable Amlodipine 10 mg daily Lisinopril 20 mg daily DVT prevention Sequential compression devices Discharge Planning human resource manager consulted since patient does not have capacity to make discharge decisions. We'll need to find family for healthcare surrogacy and/or go through legal channels to obtain court ordered surrogacy. Conrado Mariee Jul 21, 2017 11:30
[2017-07-21] MEDS: ACETAMINOPHEN 325 MG TAB PO PRN ×2 (12:13→19:52)
[2017-07-21 13:32] VITALS: BP 149/101; PULSE 75; RESP 18
[2017-07-21 20:00] VITALS: BP 120/72; PULSE 68; RESP 20; TEMP 97.1; O2SAT 96
[2017-07-22 08:00] VITALS: BP 124/84; PULSE 65; RESP 17; TEMP 97.5; O2SAT 95
[2017-07-22] MEDS: FLUoxetine HCL 20 MG CAP PO SCH (08:35)
[2017-07-22] MEDS: LISINOPRIL 20 MG TAB PO SCH (08:36)
--- NOTE | 2017-07-22 14:32 | HHI.PR ---
Subjective Remarks Patient seen and examined today for follow-up on cognition, unsafe discharge. Patient lying in bed comfortable. Wants to know why she can't leave the hospital. Nursing staff indicates that she is trying to escape again today. Had be brought back by security. Objective Vitals Vital Signs Date Time Temp Pulse Resp B/P (MAP) Pulse Ox O2 Delivery O2 Flow Rate FiO2 07/22/17 08:00 97.5 65 17 124/84 (97) 95 07/21/17 20:00 97.1 68 20 120/72 (88) 96 I/O 07/21/17 07/21/17 07/21/17 07/22/17 07/22/17 07/22/17 07:00 15:00 23:00 07:00 15:00 23:00 Intake Total 480 ml 300 ml 300 ml Balance 480 ml 300 ml 300 ml Intake Oral 480 ml 300 ml 300 ml # Voids 3 1 3 # Bowel Movements 0 0 Objective Remarks GENERAL: Well-developed, well-nourished, in no acute distress. alert and orientated to person, year, month, day of the week. She indicates that she is from [place], but she knows that she states that she is in [place] HEENT: Head is normocephalic without any lesions or masses noted. Facial features are symmetric. Eyes: Extraocular muscles are intact. Conjunctivae were clear. NECK: C-collar in on table at bedside CARDIAC: Regular rhythm, regular rate. S1/S2 are heard. No murmurs gallops or rubs. LUNGS: Clear to auscultation bilaterally. No wheeze, rhonchi or rales. No use of accessory muscles on inspiration or expiration. ABDOMEN: Soft, nontender. Nondistended. Bowel sounds heard in all 4 quadrants. No organomegaly or masses. Negative rebound, negative guarding EXTREMITIES: No edema, pulses are equal bilaterally. No cyanosis or clubbing NEUROLOGY: Mood and affect appear appropriate. Cranial nerves II through XII grossly intact moving all extremities, speech is clear Urinary Catheter: No Vascular Central Line Catheter: No A/P Assessment and Plan Inability to care for self, unsafe discharge Records indicate that the patient cannot walk, she was planned to [facility] to a homeless [facility], however it was deemed unsafe to discharge Patient indicates that she does have a friend that she can stay with. Continue PT/OT until patient cleared by therapies that she can perform her ADLs and ambulate unassisted Speech therapy following the patient, it would appear as if speech therapy did come to evaluation on 06/23/17. Indicates patient moderate to severe cognitive defects. Indicating patient dependent with partial help needed. Then on 06/24 as indicated that patient independent. Then after that documentation goes back to the patient is dependent with partial help needed. Speech therapy cognitive evaluation was states MOCA score 20/30, however still stating that she needs to have supervision --Physical therapy indicates patient is standby assist only, walking 900 feet, states requires supervision at home for safety. Assisted living facility --Patient therapy indicates patient [facility] home with home health care OT and supervision --Case management for discharge planning --Psychiatry originally evaluated the patient and indicates that there is no question about capacity. MIni mental state 28-30, however it is documented that psychiatry was called and indicated that patient is not competent to make decisions about AMA discharge. --Psychiatry will need to continue to follow patient, patient may need surrogacy if unable to make her own decisions. Awaiting case management to address cognition/surrogacy Multiple traumatic injuries, Patient laceration, subdural hemorrhage, ventricular hemorrhage, nasal fracture , C6 fracture, C1-C2 subluxation, C4 transverse process fracture, right rib fracture, L1 transverse process fracture, right pubic rami fracture Continue c-collar this time Specialist no longer following patient, patient will require outpatient follow- up if discharge Patient denies any active pain. patient may use Tylenol as needed, Robaxin as needed for muscle spasms Hypertension, stable Amlodipine 10 mg daily Lisinopril 20 mg daily DVT prevention Sequential compression devices Discharge Planning manager study consulted since patient does not have capacity to make discharge decisions. We'll need to find family for healthcare surrogacy and/or go through legal channels to obtain court ordered surrogacy. Conrado Mariee Jul 22, 2017 14:32
[2017-07-22 20:00] VITALS: BP 109/69; PULSE 68; RESP 22; TEMP 97.9; O2SAT 96
[2017-07-23 08:00] VITALS: BP 110/71; PULSE 69; RESP 16; TEMP 96.6; O2SAT 98
[2017-07-23] MEDS: FLUoxetine HCL 20 MG CAP PO SCH (08:41)
[2017-07-23] MEDS: LISINOPRIL 20 MG TAB PO SCH (08:41)
[2017-07-23] MEDS: ALPRAZolam 0.5 MG TAB PO PRN ×2 (08:41→16:52)
--- NOTE | 2017-07-23 09:17 | HHI.PR ---
Subjective Remarks Patient seen and examined today for follow-up on a safe discharge, cognitive issues. Patient lying in bed. She knows that she is in [facility], she states that she lives in [place]. However, she states that her boyfriend Shantanu will pick her up and take her home. Patient is very eager to be discharged from the hospital. She walks run on the floor and asked me multiple times per day if we've heard from case management about her discharge plans Objective Vitals Vital Signs Date Time Temp Pulse Resp B/P (MAP) Pulse Ox O2 Delivery O2 Flow Rate FiO2 07/23/17 08:00 96.6 69 16 110/71 (84) 98 07/22/17 20:00 97.9 68 22 109/69 (82) 96 I/O 07/22/17 07/22/17 07/22/17 07/23/17 07/23/17 07/23/17 07:00 15:00 23:00 07:00 15:00 23:00 Intake Total 300 ml 580 ml 300 ml Balance 300 ml 580 ml 300 ml Intake Oral 300 ml 580 ml 300 ml # Voids 3 2 1 # Bowel Movements 0 3 Objective Remarks GENERAL: Well-developed, well-nourished, in no acute distress. alert and orientated to person, year, month, day of the week. She indicates that she is from [place], but she knows that she states that she is in [place] HEENT: Head is normocephalic without any lesions or masses noted. Facial features are symmetric. Eyes: Extraocular muscles are intact. Conjunctivae were clear. NECK: C-collar in on table at bedside CARDIAC: Regular rhythm, regular rate. S1/S2 are heard. No murmurs gallops or rubs. LUNGS: Clear to auscultation bilaterally. No wheeze, rhonchi or rales. No use of accessory muscles on inspiration or expiration. ABDOMEN: Soft, nontender. Nondistended. Bowel sounds heard in all 4 quadrants. No organomegaly or masses. Negative rebound, negative guarding EXTREMITIES: No edema, pulses are equal bilaterally. No cyanosis or clubbing NEUROLOGY: Mood and affect appear appropriate. Cranial nerves II through XII grossly intact moving all extremities, speech is clear Urinary Catheter: No Vascular Central Line Catheter: No A/P Assessment and Plan Inability to care for self, unsafe discharge Records indicate that the patient cannot walk, she was planned to [facility] to a homeless [facility], however it was deemed unsafe to discharge Continue PT/OT until patient cleared by therapies that she can perform her ADLs and ambulate unassisted Speech therapy following the patient, it would appear as if speech therapy did come to evaluation on 06/23/17. Indicates patient moderate to severe cognitive defects. Indicating patient dependent with partial help needed. Then on 06/24 it was indicated that patient independent. Then after that documentation goes back to the patient is dependent with partial help needed. Speech therapy cognitive evaluation was states MOCA score 20/30, however still stating that she needs to have supervision --Physical therapy indicates patient is standby assist only, walking 900 feet, states requires supervision at home for safety. Assisted living facility --Occupational therapy indicates patient can go home with home health care OT and supervision --Case management for discharge planning --Psychiatry originally evaluated the patient and indicates that there is no question about capacity. MIni mental state 28-30, however it is documented that psychiatry was called and indicated that patient is not competent to make decisions about AMA discharge. --Psychiatry will need to continue to follow patient, patient may need surrogacy if unable to make her own decisions. Awaiting case management to address cognition/surrogacy Multiple traumatic injuries, Patient laceration, subdural hemorrhage, ventricular hemorrhage, nasal fracture , C6 fracture, C1-C2 subluxation, C4 transverse process fracture, right rib fracture, L1 transverse process fracture, right pubic rami fracture Continue c-collar this time Specialist no longer following patient, patient will require outpatient follow- up if discharge Patient denies any active pain. patient may use Tylenol as needed, Robaxin as needed for muscle spasms Hypertension, stable Amlodipine 10 mg daily Lisinopril 20 mg daily DVT prevention Sequential compression devices Discharge Planning ict project manager consulted since patient does not have capacity to make discharge decisions. We'll need to find family for healthcare surrogacy and/or go through legal channels to obtain court ordered surrogacy. Conrado Mariee Jul 23, 2017 09:17
[2017-07-23 20:04] VITALS: BP 108/69; PULSE 60; RESP 20; TEMP 96.3; O2SAT 99
[2017-07-24 08:36] VITALS: BP 103/76; PULSE 70; RESP 16; TEMP 96.7; O2SAT 96
[2017-07-24] MEDS: ALPRAZolam 0.5 MG TAB PO PRN ×3 (09:11→20:11)
[2017-07-24] MEDS: LISINOPRIL 20 MG TAB PO SCH (09:13)
[2017-07-24] MEDS: FLUoxetine HCL 20 MG CAP PO SCH (09:13)
--- NOTE | 2017-07-24 10:15 | HHI.PR ---
Subjective Remarks Patient seen and examined today for follow-up on unsafe discharge, cognition issues. Patient very tearful because she wants to leave and return back to her life. However, it is indicated in previous documentation that states she does not have competency to make decisions about discharge. Case management has been consulted to evaluate for competency issues, possible need to obtain legal surrogacy. Patient still tries to elope on a regular basis. Patient still requires sitter only for elopement. Objective Vitals Vital Signs Date Time Temp Pulse Resp B/P (MAP) Pulse Ox O2 Delivery O2 Flow Rate FiO2 07/24/17 08:36 96.7 70 16 103/76 (85) 96 07/23/17 20:04 96.3 60 20 108/69 (82) 99 I/O 07/23/17 07/23/17 07/23/17 07/24/17 07/24/17 07/24/17 07:00 15:00 23:00 07:00 15:00 23:00 Intake Total 350 ml 300 ml 450 ml Balance 350 ml 300 ml 450 ml Intake Oral 350 ml 300 ml 450 ml # Voids 2 1 4 1 # Bowel Movements 1 0 0 Objective Remarks GENERAL: Well-developed, well-nourished, in no acute distress. alert and orientated to person, year, month, day of the week. She indicates that she is from [place], but she knows that she states that she is in [place] HEENT: Head is normocephalic without any lesions or masses noted. Facial features are symmetric. Eyes: Extraocular muscles are intact. Conjunctivae were clear. NECK: C-collar in on table at bedside CARDIAC: Regular rhythm, regular rate. S1/S2 are heard. No murmurs gallops or rubs. LUNGS: Clear to auscultation bilaterally. No wheeze, rhonchi or rales. No use of accessory muscles on inspiration or expiration. ABDOMEN: Soft, nontender. Nondistended. Bowel sounds heard in all 4 quadrants. No organomegaly or masses. Negative rebound, negative guarding EXTREMITIES: No edema, pulses are equal bilaterally. No cyanosis or clubbing NEUROLOGY: Mood and affect appear appropriate. Cranial nerves II through XII grossly intact moving all extremities, speech is clear Urinary Catheter: No Vascular Central Line Catheter: No A/P Assessment and Plan Inability to care for self, unsafe discharge Records indicate that the patient cannot walk, she was planned to discharge to a homeless [facility], however it was deemed unsafe to discharge Continue PT/OT until patient cleared by therapies that she can perform her ADLs and ambulate unassisted Speech therapy following the patient, it would appear as if speech therapy did come to evaluation on 06/23/17. Indicates patient moderate to severe cognitive defects. Indicating patient dependent with partial help needed. Then on 06/24 it was indicated that patient independent. Then after that documentation goes back to the patient is dependent with partial help needed. Speech therapy cognitive evaluation was states MOCA score 20/30, however still stating that she needs to have supervision --Physical therapy indicates patient is standby assist only, walking 900 feet, states requires supervision at home for safety. Assisted living facility --Occupational therapy indicates patient can go home with home health care OT and supervision --Case management for discharge planning --Psychiatry originally evaluated the patient and indicates that there is no question about capacity. MIni mental state 28-30, however it is documented that psychiatry was called and indicated that patient is not competent to make decisions about AMA discharge. --Psychiatry will need to continue to follow patient, patient may need surrogacy if unable to make her own decisions. Awaiting case management to address cognition/surrogacy Multiple traumatic injuries, Patient laceration, subdural hemorrhage, ventricular hemorrhage, nasal fracture , C6 fracture, C1-C2 subluxation, C4 transverse process fracture, right rib fracture, L1 transverse process fracture, right pubic rami fracture Continue c-collar this time Specialist no longer following patient, patient will require outpatient follow- up if discharge Patient denies any active pain. patient may use Tylenol as needed, Robaxin as needed for muscle spasms Hypertension, stable Amlodipine 10 mg daily Lisinopril 20 mg daily DVT prevention Sequential compression devices Discharge Planning retail assistant store manager consulted since patient does not have capacity to make discharge decisions. We'll need to find family for healthcare surrogacy and/or go through legal channels to obtain court ordered surrogacy. Conrado Mariee Jul 24, 2017 10:15
--- NOTE | 2017-07-24 16:18 | HHI.PYPN ---
Subjective Remarks Patient is seen today for psychiatric reevaluation. She is found pleasantly talking with sitter. She reports good mood, she says today has been a great day. Denies depressive symptoms, denies anhedonia, hopelessness, helplessness. She denies SI/HI/VH/AH. She says she wants to be discharged and go back go her life, but she will follow the medial recommendation and will leave when is decided by doctors. She has been complaint with medications, not significant side effects. She is orientedX3. As per nurse in charge, patient has been calm and cooperative, but at times demanding to be DC and tearful and emotional. 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 Extensive support, motivational psychoeducation provided. (2) Adjustment disorder with depressed mood ICD Codes: F43.21 - Adjustment disorder with depressed mood Assessment & Plan Estimated LOS: days Justification for Cont. Inpt. No indication for psychiatric admission at this moment. Nilton Nelson MD Jul 24, 2017 16:18
[2017-07-24 20:42] VITALS: BP 105/67; PULSE 70; RESP 14; TEMP 99; O2SAT 90
[2017-07-25] MEDS: ALPRAZolam 0.5 MG TAB PO PRN ×2 (07:59→15:17)
[2017-07-25] MEDS: LISINOPRIL 20 MG TAB PO SCH (08:00)
[2017-07-25] MEDS: FLUoxetine HCL 20 MG CAP PO SCH (08:00)
--- NOTE | 2017-07-25 11:01 | HHI.PR ---
Subjective Remarks Patient seen and examined today for unsafe discharge, cognitive issues. Patient lying in bed. Denies any new complaints. Very eager to be discharged. Patient seems very appropriate today. Objective Vitals Vital Signs Date Time Temp Pulse Resp B/P (MAP) Pulse Ox O2 Delivery O2 Flow Rate FiO2 07/24/17 20:42 99.0 70 14 105/67 (80) 90 I/O 07/24/17 07/24/17 07/24/17 07/25/17 07/25/17 07/25/17 07:00 15:00 23:00 07:00 15:00 23:00 Intake Total 1000 ml Balance 1000 ml Intake Oral 1000 ml # Voids 1 5 2 # Bowel Movements 1 Objective Remarks GENERAL: Well-developed, well-nourished, in no acute distress. alert and orientated to person, year, month, day of the week. She indicates that she is from [place], but she knows that she states that she is in [place] HEENT: Head is normocephalic without any lesions or masses noted. Facial features are symmetric. Eyes: Extraocular muscles are intact. Conjunctivae were clear. NECK: C-collar in on table at bedside CARDIAC: Regular rhythm, regular rate. S1/S2 are heard. No murmurs gallops or rubs. LUNGS: Clear to auscultation bilaterally. No wheeze, rhonchi or rales. No use of accessory muscles on inspiration or expiration. ABDOMEN: Soft, nontender. Nondistended. Bowel sounds heard in all 4 quadrants. No organomegaly or masses. Negative rebound, negative guarding EXTREMITIES: No edema, pulses are equal bilaterally. No cyanosis or clubbing NEUROLOGY: Mood and affect appear appropriate. Cranial nerves II through XII grossly intact moving all extremities, speech is clear Urinary Catheter: No Vascular Central Line Catheter: No A/P Assessment and Plan Inability to care for self, unsafe discharge Records indicate that the patient cannot walk, she was planned to discharge to a homeless skilled nursing, however it was deemed unsafe to discharge Continue PT/OT until patient cleared by therapies that she can perform her ADLs and ambulate unassisted Speech therapy following the patient, it would appear as if speech therapy did come to evaluation on 06/23/17. Indicates patient moderate to severe cognitive defects. Indicating patient dependent with partial help needed. Then on 06/24 it was indicated that patient independent. Then after that documentation goes back to the patient is dependent with partial help needed. Speech therapy cognitive evaluation was states MOCA score 20/30, however still stating that she needs to have supervision --Physical therapy indicates patient is standby assist only, walking 900 feet, states requires supervision at home for safety. Assisted living facility --Occupational therapy indicates patient can go home with home health care OT and supervision --Case management for discharge planning --Psychiatry originally evaluated the patient and indicates that there is no question about capacity. MIni mental state 28-30, however it is documented that psychiatry was called and indicated that patient is not competent to make decisions about AMA discharge. --Psychiatry reconsulted. Very long discussion with psychiatry today who indicates that the patient was completely appropriate yesterday and there is no question about competency, however he states that the patient has frontal lobe injury and her cognition can change on a daily basis. But presently she is stable in order to make her own decisions. Multiple traumatic injuries, Patient laceration, subdural hemorrhage, ventricular hemorrhage, nasal fracture , C6 fracture, C1-C2 subluxation, C4 transverse process fracture, right rib fracture, L1 transverse process fracture, right pubic rami fracture Continue c-collar this time Specialist no longer following patient, patient will require outpatient follow- up if discharge Patient denies any active pain. patient may use Tylenol as needed, Robaxin as needed for muscle spasms Hypertension, stable Amlodipine 10 mg daily Lisinopril 20 mg daily DVT prevention Sequential compression devices Discharge Planning assistant business manager consulted since patient does not have capacity to make discharge decisions. We'll need to find family for healthcare surrogacy and/or go through legal channels to obtain court ordered surrogacy. Conrado Mariee Jul 25, 2017 11:01
[2017-07-25 17:18] VITALS: BP 96/72; PULSE 82; RESP 15; TEMP 97.5; O2SAT 96
[2017-07-25 21:25] VITALS: BP 107/70; PULSE 76; RESP 16; TEMP 98.8; O2SAT 97
[2017-07-26 08:00] VITALS: BP 104/80; PULSE 80; RESP 16; TEMP 97.7; O2SAT 98
[2017-07-26] MEDS: LISINOPRIL 20 MG TAB PO SCH (09:08)
[2017-07-26] MEDS: FLUoxetine HCL 20 MG CAP PO SCH (09:08)
--- NOTE | 2017-07-26 10:06 | HHI.PR ---
Subjective Remarks Patient seen and examined today for follow-up on a safe discharge, cognitive issues. Patient becomes tearful on a daily basis because she does not understand why we are holding her against her will. She is asking for her purse so she can use her phone to call Merlin Rodriguez in order to represent her because what we are doing to her is illegal and inhumane. Objective Vitals Vital Signs Date Time Temp Pulse Resp B/P (MAP) Pulse Ox O2 Delivery O2 Flow Rate FiO2 07/26/17 08:00 97.7 80 16 104/80 (88) 98 07/25/17 21:25 98.8 76 16 107/70 (82) 97 07/25/17 17:18 97.5 82 15 96/72 (80) 96 I/O 07/25/17 07/25/17 07/25/17 07/26/17 07/26/17 07/26/17 07:00 15:00 23:00 07:00 15:00 23:00 # Voids 2 2 # Bowel Movements 0 Objective Remarks GENERAL: Well-developed, well-nourished, in no acute distress. alert and orientated to person, year, month, day of the week. She indicates that she is from [place], but she knows that she states that she is in [place] HEENT: Head is normocephalic without any lesions or masses noted. Facial features are symmetric. Eyes: Extraocular muscles are intact. Conjunctivae were clear. NECK: C-collar in on table at bedside CARDIAC: Regular rhythm, regular rate. S1/S2 are heard. No murmurs gallops or rubs. LUNGS: Clear to auscultation bilaterally. No wheeze, rhonchi or rales. No use of accessory muscles on inspiration or expiration. ABDOMEN: Soft, nontender. Nondistended. Bowel sounds heard in all 4 quadrants. No organomegaly or masses. Negative rebound, negative guarding EXTREMITIES: No edema, pulses are equal bilaterally. No cyanosis or clubbing NEUROLOGY: Mood and affect appear appropriate. Cranial nerves II through XII grossly intact moving all extremities, speech is clear Urinary Catheter: No Vascular Central Line Catheter: No A/P Assessment and Plan Inability to care for self, unsafe discharge Records indicate that the patient cannot walk, she was planned to discharge to a homeless skilled nursing, however it was deemed unsafe to discharge Continue PT/OT until patient cleared by therapies that she can perform her ADLs and ambulate unassisted Speech therapy following the patient, it would appear as if speech therapy did come to evaluation on 06/23/17. Indicates patient moderate to severe cognitive defects. Indicating patient dependent with partial help needed. Then on 06/24 it was indicated that patient independent. Then after that documentation goes back to the patient is dependent with partial help needed. Speech therapy cognitive evaluation was states MOCA score 20/30, however still stating that she needs to have supervision --Physical therapy indicates patient is standby assist only, walking 900 feet, states requires supervision at home for safety. Assisted living facility --Occupational therapy indicates patient can go home with home health care OT and supervision --Case management for discharge planning --Psychiatry originally evaluated the patient and indicates that there is no question about capacity. MIni mental state 28-30, however it is documented that psychiatry was called and indicated that patient is not competent to make decisions about AMA discharge. --Psychiatry reconsulted. 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 But presently she is stable in order to make her own decisions. --Case management consulted multiple times to help arrange safe discharge, still awaiting response Multiple traumatic injuries, Patient laceration, subdural hemorrhage, ventricular hemorrhage, nasal fracture , C6 fracture, C1-C2 subluxation, C4 transverse process fracture, right rib fracture, L1 transverse process fracture, right pubic rami fracture Continue c-collar this time Specialist no longer following patient, patient will require outpatient follow- up if discharge Patient denies any active pain. patient may use Tylenol as needed, Robaxin as needed for muscle spasms Hypertension, stable Amlodipine 10 mg daily Lisinopril 20 mg daily DVT prevention Sequential compression devices Discharge Planning industrial relations manager consulted multiple times to help arrange safe discharge, awaiting response Conrado Mariee Jul 26, 2017 10:06
[2017-07-26] MEDS: ALPRAZolam 0.5 MG TAB PO PRN ×3 (11:03→23:05)
[2017-07-27 05:36] VITALS: BP 110/72; PULSE 71; RESP 18; TEMP 98; O2SAT 92
[2017-07-27 08:00] VITALS: BP 100/69; PULSE 74; RESP 20; TEMP 97.8; O2SAT 94
--- NOTE | 2017-07-27 10:19 | HHI.PR ---
Subjective Remarks Follow-up for unsafe discharge, cognitive deficits. No acute complaints. Objective Vitals Vital Signs Date Time Temp Pulse Resp B/P (MAP) Pulse Ox O2 Delivery O2 Flow Rate FiO2 07/27/17 05:36 98.0 71 18 110/72 (85) 92 I/O 07/26/17 07/26/17 07/26/17 07/27/17 07/27/17 07/27/17 07:00 15:00 23:00 07:00 15:00 23:00 Intake Total 1660 ml 200 ml Balance 1660 ml 200 ml Intake Oral 1660 ml 200 ml # Voids 2 4 1 # Bowel Movements 0 1 Objective Remarks GENERAL: Pleasant patient in no apparent distress. CARDIOVASCULAR: Regular rate and rhythm. RESPIRATORY: No accessory muscle use. Clear to auscultation. Breath sounds equal bilaterally. GASTROINTESTINAL: Abdomen soft, nontender, nondistended. MUSCULOSKELETAL: 2+ DP pulses bilaterally. NEUROLOGICAL: Awake and alert. Normal speech. PSYCHIATRIC: Normal mood and affect. Urinary Catheter: No Vascular Central Line Catheter: No A/P Problem List: (1) Inability to walk ICD Code: R26.2 - Difficulty in walking, not elsewhere classified Status: Acute (2) Alcohol dependence in controlled environment ICD Code: F10.20 - Alcohol dependence, uncomplicated Status: Acute (3) Facial injury ICD Code: S09.93XA - Unspecified injury of face, initial encounter Status: Acute (4) Fall ICD Code: W19.XXXA - Unspecified fall, initial encounter Status: Acute (5) Hypertension ICD Code: I10 - Essential (primary) hypertension Status: Acute (6) Pelvic fracture ICD Code: S32.9XXA - Fracture of unspecified parts of lumbosacral spine and pelvis, initial encounter for closed fracture Status: Acute (7) C1-C2 subluxation ICD Code: S13.120A - Subluxation of C1/C2 cervical vertebrae, initial encounter Status: Acute (8) C6 cervical fracture ICD Code: S12.500A - Unspecified displaced fracture of sixth cervical vertebra , initial encounter for closed fracture Status: Acute (9) Traumatic brain injury ICD Code: S06.9X9A - Unspecified intracranial injury with loss of consciousness of unspecified duration, initial encounter Status: Acute (10) Nasal fracture ICD Code: S02.2XXA - Fracture of nasal bones, initial encounter for closed fracture Status: Acute (11) Mild neurocognitive disorder ICD Code: G31.84 - Mild cognitive impairment, so stated Status: Acute (12) Intracranial bleed ICD Code: I62.9 - Nontraumatic intracranial hemorrhage, unspecified Status: Acute Assessment and Plan Inability to care for self, unsafe discharge: due to trauma and confusion -PT/OT following. Confusion/Anxiety/agitation: Likely attributed to previous brain hemorrhage and/ or chronic alcohol abuse. -Ammonia level normal. -Continue sitter and bed alarm -ST performed cognitive evaluation indicating moderate to severe cognitive deficits. 07/08 MOCA score 20/30 indicating again moderate cognitive deficits. ST following. -Psych was consulted, Mini mental good at 28/30. I spoke with Dr Nelson and note appreciated. He cannot give direction regarding capacity as there is no specific issue at hand. -07/15: ST has reevaluated patient and states she has mild cognitive deficits/ moments of confusion, but overall is improving. -07/16: Patient trying to elope. Admits to feeling anxious. Xanax 0.5 mg po tid ordered as nurse states Ativan did not help yesterday. Already on Prozac. I discussed patient with Dr. Nelson, psychiatrist, and we agree patient does NOT have capacity to sign out AMA. If needed patient can be placed in soft restraints for her safety and the safety of staff. Later in the day patient did elope. She has apparently been violent as well. Low dose Haldol ordered prn for agitation. If restraints needed, will order. -07/18: After my interview and exam patient again tried to elope again and was found in the elevator. The patient states she needs to go get her keys for her car. We informed the patient that she does not have a car here. The charge nurse redirected the patient to her room. -07/27. Patient has been calm and cooperative. ST eval on 07/26 states cognition varies; needs supervision at discharge. Multiple traumatic injuries Forehead laceration, subdural hemorrhage, ventricular hemorrhage, nasal fracture, C6 fracture, C1-C2 subluxation, C4 transverse process fracture, right rib fracture, L1 transverse process fracture, right pubic rami fracture Continue c-collar Specialist no longer following patient, patient will require outpatient follow- up if discharge May use Tylenol as needed. R groin pain. New pelvis x-ray obtained 06/30 is stable. Pain improved. [place] discontinued. Patient has been ambulating without issue. Hypertension: Stable. Amlodipine 10 mg daily Lisinopril 20 mg daily DVT prevention OOB ad rola, sequential compression devices if in bed Discharge Planning 07/26: CM awaiting funding source for placement as patient requires supervision for safety due to cognitive deficits. Problem Qualifiers (1) Hypertension: Qualified Codes: I10 - Essential (primary) hypertension Azul Sarkar Jul 27, 2017 10:19
[2017-07-27] MEDS: LISINOPRIL 20 MG TAB PO SCH (10:36)
[2017-07-27] MEDS: FLUoxetine HCL 20 MG CAP PO SCH (10:36)
[2017-07-27] MEDS: ALPRAZolam 0.5 MG TAB PO PRN ×2 (10:36→21:43)
[2017-07-27 20:00] VITALS: BP 56/62; PULSE 75; RESP 16; TEMP 98.1; O2SAT 95
[2017-07-28 08:00] VITALS: BP 110/82; PULSE 73; RESP 19; TEMP 96.2; O2SAT 97
[2017-07-28] MEDS: LISINOPRIL 20 MG TAB PO SCH (09:33)
[2017-07-28] MEDS: FLUoxetine HCL 20 MG CAP PO SCH (09:33)
--- NOTE | 2017-07-28 10:07 | HHI.PR ---
Subjective Remarks Follow-up for trauma, cognitive deficits. Patient has no acute complaints. She is again not wearing her cervical collar and states it is in the closet. Objective Vitals Vital Signs Date Time Temp Pulse Resp B/P (MAP) Pulse Ox O2 Delivery O2 Flow Rate FiO2 07/27/17 20:00 98.1 75 16 56/62 (60) 95 I/O 07/27/17 07/27/17 07/27/17 07/28/17 07/28/17 07/28/17 07:00 15:00 23:00 07:00 15:00 23:00 Intake Total 240 ml 100 ml Balance 240 ml 100 ml Intake Oral 240 ml 100 ml # Voids 1 Objective Remarks GENERAL: Pleasant patient in no apparent distress. CARDIOVASCULAR: Regular rate and rhythm. RESPIRATORY: No accessory muscle use. Clear to auscultation. Breath sounds equal bilaterally. MUSCULOSKELETAL: 2+ DP pulses bilaterally. NEUROLOGICAL: Awake and alert. Normal speech. PSYCHIATRIC: Normal mood and affect. Urinary Catheter: No Vascular Central Line Catheter: No A/P Problem List: (1) Inability to walk ICD Code: R26.2 - Difficulty in walking, not elsewhere classified Status: Acute (2) Alcohol dependence in controlled environment ICD Code: F10.20 - Alcohol dependence, uncomplicated Status: Acute (3) Facial injury ICD Code: S09.93XA - Unspecified injury of face, initial encounter Status: Acute (4) Fall ICD Code: W19.XXXA - Unspecified fall, initial encounter Status: Acute (5) Hypertension ICD Code: I10 - Essential (primary) hypertension Status: Acute (6) Pelvic fracture ICD Code: S32.9XXA - Fracture of unspecified parts of lumbosacral spine and pelvis, initial encounter for closed fracture Status: Acute (7) C1-C2 subluxation ICD Code: S13.120A - Subluxation of C1/C2 cervical vertebrae, initial encounter Status: Acute (8) C6 cervical fracture ICD Code: S12.500A - Unspecified displaced fracture of sixth cervical vertebra , initial encounter for closed fracture Status: Acute (9) Traumatic brain injury ICD Code: S06.9X9A - Unspecified intracranial injury with loss of consciousness of unspecified duration, initial encounter Status: Acute (10) Nasal fracture ICD Code: S02.2XXA - Fracture of nasal bones, initial encounter for closed fracture Status: Acute (11) Mild neurocognitive disorder ICD Code: G31.84 - Mild cognitive impairment, so stated Status: Acute (12) Intracranial bleed ICD Code: I62.9 - Nontraumatic intracranial hemorrhage, unspecified Status: Acute Assessment and Plan Inability to care for self, unsafe discharge: due to trauma and confusion -PT/OT following. Confusion/Anxiety/agitation: Likely attributed to previous brain hemorrhage and/ or chronic alcohol abuse. -Ammonia level normal. -Continue sitter and bed alarm -Patient has tried to elope multiple times and has acted out violently against staff. Has periods of confusion. I discussed patient with Dr. Nelson, psychiatrist, and we agree patient does NOT have capacity to sign out AMA. If needed patient can be placed in soft restraints for her safety and the safety of staff. -ST eval on 07/26 states cognition varies; needs supervision at discharge. -Continue Xanax 0.5 mg tid prn anxiety -Patient did require a dose of Haldol on 07/25/17. Per RN report, patient was aggressive hitting staff, trying to run away stating she wanted to check on her dogs in [place], [place]. Multiple traumatic injuries Forehead laceration, subdural hemorrhage, ventricular hemorrhage, nasal fracture, C6 fracture, C1-C2 subluxation, C4 transverse process fracture, right rib fracture, L1 transverse process fracture, right pubic rami fracture Continue c-collar Specialist no longer following patient, patient will require outpatient follow- up if discharge May use Tylenol as needed. R groin pain. New pelvis x-ray obtained 06/30 is stable. Pain improved. [place] discontinued. Patient has been ambulating without issue. Hypertension: Stable. Amlodipine 10 mg daily Lisinopril 20 mg daily -07/28: Very low BP was documented last night but I believe this is likely an error. Per RN BP normal this morning. DVT prevention OOB ad rola, sequential compression devices if in bed Discharge Planning 07/26: CM awaiting funding source for placement as patient requires supervision for safety due to cognitive deficits. Problem Qualifiers (1) Hypertension: Qualified Codes: I10 - Essential (primary) hypertension Azul Sarkar Jul 28, 2017 10:07
[2017-07-28 20:00] VITALS: BP 103/79; PULSE 75; RESP 16; TEMP 97.6; O2SAT 93
[2017-07-28] MEDS: ALPRAZolam 0.5 MG TAB PO PRN (20:55)
[2017-07-28] MEDS: ACETAMINOPHEN 325 MG TAB PO PRN (20:58)
[2017-07-29] MEDS: LISINOPRIL 20 MG TAB PO SCH ×2 (09:00→09:54)
[2017-07-29] MEDS: FLUoxetine HCL 20 MG CAP PO SCH (09:54)
[2017-07-29] MEDS: ALPRAZolam 0.5 MG TAB PO PRN ×2 (09:54→21:02)
--- NOTE | 2017-07-29 11:11 | HHI.PR ---
Subjective Remarks Follow-up for unsafe discharge, cognitive impairment. No acute complaints. Again not wearing cervical collar. Objective Vitals Vital Signs Date Time Temp Pulse Resp B/P (MAP) Pulse Ox O2 Delivery O2 Flow Rate FiO2 07/28/17 20:00 97.6 75 16 103/79 (87) 93 I/O 07/28/17 07/28/17 07/28/17 07/29/17 07/29/17 07/29/17 07:00 15:00 23:00 07:00 15:00 23:00 Intake Total 100 ml 300 ml 480 ml Balance 100 ml 300 ml 480 ml Intake Oral 100 ml 300 ml 480 ml # Voids 4 2 5 # Bowel Movements 0 1 Objective Remarks GENERAL: Pleasant patient in no apparent distress. CARDIOVASCULAR: Regular rate and rhythm. RESPIRATORY: No accessory muscle use. Clear to auscultation. Breath sounds equal bilaterally. GASTROINTESTINAL: Abdomen soft, non-tender, non-distended. NEUROLOGICAL: Awake and alert. Normal speech. PSYCHIATRIC: Normal mood and affect. Urinary Catheter: No Vascular Central Line Catheter: No A/P Problem List: (1) Inability to walk ICD Code: R26.2 - Difficulty in walking, not elsewhere classified Status: Acute (2) Alcohol dependence in controlled environment ICD Code: F10.20 - Alcohol dependence, uncomplicated Status: Acute (3) Facial injury ICD Code: S09.93XA - Unspecified injury of face, initial encounter Status: Acute (4) Fall ICD Code: W19.XXXA - Unspecified fall, initial encounter Status: Acute (5) Hypertension ICD Code: I10 - Essential (primary) hypertension Status: Acute (6) Pelvic fracture ICD Code: S32.9XXA - Fracture of unspecified parts of lumbosacral spine and pelvis, initial encounter for closed fracture Status: Acute (7) C1-C2 subluxation ICD Code: S13.120A - Subluxation of C1/C2 cervical vertebrae, initial encounter Status: Acute (8) C6 cervical fracture ICD Code: S12.500A - Unspecified displaced fracture of sixth cervical vertebra , initial encounter for closed fracture Status: Acute (9) Traumatic brain injury ICD Code: S06.9X9A - Unspecified intracranial injury with loss of consciousness of unspecified duration, initial encounter Status: Acute (10) Nasal fracture ICD Code: S02.2XXA - Fracture of nasal bones, initial encounter for closed fracture Status: Acute (11) Mild neurocognitive disorder ICD Code: G31.84 - Mild cognitive impairment, so stated Status: Acute (12) Intracranial bleed ICD Code: I62.9 - Nontraumatic intracranial hemorrhage, unspecified Status: Acute Assessment and Plan Inability to care for self, unsafe discharge: due to trauma and confusion -PT/OT following. Confusion/Anxiety/agitation: Likely attributed to previous brain hemorrhage and/ or chronic alcohol abuse. -Ammonia level normal. -Continue sitter and bed alarm -Patient has tried to elope multiple times and has acted out violently against staff. Has periods of confusion. I discussed patient with Dr. Nelson, psychiatrist, and we agree patient does NOT have capacity to sign out AMA. If needed patient can be placed in soft restraints for her safety and the safety of staff. -ST eval on 07/26 states cognition varies; needs supervision at discharge. -Continue Xanax 0.5 mg tid prn anxiety -Patient did require a dose of Haldol on 07/25/17. Per RN report, patient was aggressive hitting staff, trying to run away stating she wanted to check on her dogs in [place], [place]. -07/28: Patient continues to be confused thinking she has a house, that she drove down on Wednesday with her son, that she was previously discharged on this hospitalization, and that her boyfriend Kareem is alive. Multiple traumatic injuries Forehead laceration, subdural hemorrhage, ventricular hemorrhage, nasal fracture, C6 fracture, C1-C2 subluxation, C4 transverse process fracture, right rib fracture, L1 transverse process fracture, right pubic rami fracture Continue c-collar Specialist no longer following patient, patient will require outpatient follow- up if discharge May use Tylenol as needed. R groin pain. New pelvis x-ray obtained 06/30 is stable. Pain improved. [place] discontinued. Patient has been ambulating without issue. Hypertension: Stable. Amlodipine 10 mg daily Lisinopril 20 mg daily 07/29: BP 105/81 this morning. BP meds held. I advised RN to recheck 4 hours later. If continues to remain low, may be able to decrease or discontinue medication. DVT prevention OOB ad rola, sequential compression devices if in bed Discharge Planning 07/26: CM awaiting funding source for placement as patient requires supervision for safety due to cognitive deficits. Problem Qualifiers (1) Hypertension: Qualified Codes: I10 - Essential (primary) hypertension Azul Sarkar Jul 29, 2017 11:07
[2017-07-29 17:37] VITALS: BP 105/81; PULSE 78; RESP 16; TEMP 96.8; O2SAT 95
[2017-07-29 20:00] VITALS: BP 108/77; PULSE 71; RESP 16; TEMP 96.9; O2SAT 97
[2017-07-30 08:00] VITALS: BP 123/79; PULSE 71; RESP 20; TEMP 97.4; O2SAT 97
[2017-07-30] MEDS: LISINOPRIL 20 MG TAB PO SCH (08:39)
[2017-07-30] MEDS: FLUoxetine HCL 20 MG CAP PO SCH (09:25)
[2017-07-30] MEDS: ALPRAZolam 0.5 MG TAB PO PRN ×2 (09:25→23:37)
--- NOTE | 2017-07-30 10:00 | HHI.PR ---
Subjective Remarks Follow-up for cognitive deficits, unsafe discharge. Patient asked if her grandmother and aunt were here this morning stating that she was dropped off at 8 AM. No acute complaints. Objective Vitals Vital Signs Date Time Temp Pulse Resp B/P (MAP) Pulse Ox O2 Delivery O2 Flow Rate FiO2 07/30/17 08:00 97.4 71 20 123/79 (94) 97 07/29/17 20:00 96.9 71 16 108/77 (87) 97 07/29/17 17:37 96.8 78 16 105/81 (89) 95 I/O 07/29/17 07/29/17 07/29/17 07/30/17 07/30/17 07/30/17 07:00 15:00 23:00 07:00 15:00 23:00 Intake Total 480 ml 1000 ml 640 ml Balance 480 ml 1000 ml 640 ml Intake Oral 480 ml 1000 ml 640 ml # Voids 5 3 3 # Bowel Movements 1 1 0 Objective Remarks GENERAL: Pleasant patient in no apparent distress. CARDIOVASCULAR: Regular rate and rhythm. RESPIRATORY: No accessory muscle use. Clear to auscultation. Breath sounds equal bilaterally. GASTROINTESTINAL: Abdomen soft, non-tender, non-distended. MUSCULOSKELETAL: 2+ DP pulses bilaterally. NEUROLOGICAL: Awake and alert. Confused. Normal speech. PSYCHIATRIC: Normal mood and affect. Urinary Catheter: No Vascular Central Line Catheter: No A/P Problem List: (1) Inability to walk ICD Code: R26.2 - Difficulty in walking, not elsewhere classified Status: Acute (2) Alcohol dependence in controlled environment ICD Code: F10.20 - Alcohol dependence, uncomplicated Status: Acute (3) Facial injury ICD Code: S09.93XA - Unspecified injury of face, initial encounter Status: Acute (4) Fall ICD Code: W19.XXXA - Unspecified fall, initial encounter Status: Acute (5) Hypertension ICD Code: I10 - Essential (primary) hypertension Status: Acute (6) Pelvic fracture ICD Code: S32.9XXA - Fracture of unspecified parts of lumbosacral spine and pelvis, initial encounter for closed fracture Status: Acute (7) C1-C2 subluxation ICD Code: S13.120A - Subluxation of C1/C2 cervical vertebrae, initial encounter Status: Acute (8) C6 cervical fracture ICD Code: S12.500A - Unspecified displaced fracture of sixth cervical vertebra , initial encounter for closed fracture Status: Acute (9) Traumatic brain injury ICD Code: S06.9X9A - Unspecified intracranial injury with loss of consciousness of unspecified duration, initial encounter Status: Acute (10) Nasal fracture ICD Code: S02.2XXA - Fracture of nasal bones, initial encounter for closed fracture Status: Acute (11) Mild neurocognitive disorder ICD Code: G31.84 - Mild cognitive impairment, so stated Status: Acute (12) Intracranial bleed ICD Code: I62.9 - Nontraumatic intracranial hemorrhage, unspecified Status: Acute Assessment and Plan Inability to care for self, unsafe discharge: due to trauma and confusion -PT/OT following. Confusion/Anxiety/agitation: Likely attributed to previous brain hemorrhage and/ or chronic alcohol abuse. -Ammonia level normal. -Continue sitter and bed alarm -Patient has tried to elope multiple times and has acted out violently against staff. Has periods of confusion. I discussed patient with Dr. Nelson, psychiatrist, and we agree patient does NOT have capacity to sign out AMA. If needed patient can be placed in soft restraints for her safety and the safety of staff. -ST eval on 07/26 states cognition varies; needs supervision at discharge. -Continue Xanax 0.5 mg tid prn anxiety -Patient did require a dose of Haldol on 07/25/17. Per RN report, patient was aggressive hitting staff, trying to run away stating she wanted to check on her dogs in [place], [place]. -Patient continues to be confused. Multiple traumatic injuries Forehead laceration, subdural hemorrhage, ventricular hemorrhage, nasal fracture, C6 fracture, C1-C2 subluxation, C4 transverse process fracture, right rib fracture, L1 transverse process fracture, right pubic rami fracture Continue c-collar Specialist no longer following patient, patient will require outpatient follow- up if discharge May use Tylenol as needed. R groin pain. New pelvis x-ray obtained 06/30 is stable. Pain improved. [place] discontinued. Patient has been ambulating without issue. Hypertension: Stable. Was prescribed Lisinopril, Amlodipine, and Labetalol when initially discharged on 06/22/17 after trauma prior to readmission same day. Amlodipine 10 mg daily Lisinopril 20 mg daily 07/30: BP has remained normal after holding amlodipine and lisinopril yesterday. Meds again held this morning. I have asked RN to have BP checked every 4 hours today. If BP continues to remain normal, can discontinue medications. DVT prevention OOB ad rola, sequential compression devices if in bed Discharge Planning 07/26: CM awaiting funding source for placement as patient requires supervision for safety due to cognitive deficits. Problem Qualifiers (1) Hypertension: Qualified Codes: I10 - Essential (primary) hypertension Azul Sarkar Jul 30, 2017 10:00
[2017-07-30] MEDS: ACETAMINOPHEN 325 MG TAB PO PRN (17:16)
[2017-07-30 20:54] VITALS: BP 147/90; PULSE 63; RESP 18; TEMP 98.2; O2SAT 94
[2017-07-31 08:00] VITALS: BP 105/73; PULSE 67; RESP 16; TEMP 97.5; O2SAT 96
[2017-07-31] MEDS: LISINOPRIL 20 MG TAB PO SCH (09:22)
[2017-07-31] MEDS: FLUoxetine HCL 20 MG CAP PO SCH (09:22)
--- NOTE | 2017-07-31 11:08 | HHI.PR ---
Subjective Remarks Follow-up for unsafe discharge, cognitive deficits. No acute complaints. Objective Vitals Vital Signs Date Time Temp Pulse Resp B/P (MAP) Pulse Ox O2 Delivery O2 Flow Rate FiO2 07/31/17 08:00 97.5 67 16 105/73 (84) 96 07/31/17 04:39 07/30/17 20:54 98.2 63 18 147/90 (109) 94 I/O 07/30/17 07/30/17 07/30/17 07/31/17 07/31/17 07/31/17 07:00 15:00 23:00 07:00 15:00 23:00 Intake Total 640 ml 900 ml Balance 640 ml 900 ml Intake Oral 640 ml 900 ml # Voids 3 4 4 # Bowel Movements 0 0 1 Objective Remarks GENERAL: Pleasant patient in no apparent distress. CARDIOVASCULAR: Regular rate and rhythm. RESPIRATORY: No accessory muscle use. Clear to auscultation. Breath sounds equal bilaterally. GASTROINTESTINAL: Abdomen soft, non-tender, non-distended. NEUROLOGICAL: Awake and alert. Normal speech. PSYCHIATRIC: Normal mood and affect. Urinary Catheter: No Vascular Central Line Catheter: No A/P Problem List: (1) Inability to walk ICD Code: R26.2 - Difficulty in walking, not elsewhere classified Status: Acute (2) Alcohol dependence in controlled environment ICD Code: F10.20 - Alcohol dependence, uncomplicated Status: Acute (3) Facial injury ICD Code: S09.93XA - Unspecified injury of face, initial encounter Status: Acute (4) Fall ICD Code: W19.XXXA - Unspecified fall, initial encounter Status: Acute (5) Hypertension ICD Code: I10 - Essential (primary) hypertension Status: Acute (6) Pelvic fracture ICD Code: S32.9XXA - Fracture of unspecified parts of lumbosacral spine and pelvis, initial encounter for closed fracture Status: Acute (7) C1-C2 subluxation ICD Code: S13.120A - Subluxation of C1/C2 cervical vertebrae, initial encounter Status: Acute (8) C6 cervical fracture ICD Code: S12.500A - Unspecified displaced fracture of sixth cervical vertebra , initial encounter for closed fracture Status: Acute (9) Traumatic brain injury ICD Code: S06.9X9A - Unspecified intracranial injury with loss of consciousness of unspecified duration, initial encounter Status: Acute (10) Nasal fracture ICD Code: S02.2XXA - Fracture of nasal bones, initial encounter for closed fracture Status: Acute (11) Mild neurocognitive disorder ICD Code: G31.84 - Mild cognitive impairment, so stated Status: Acute (12) Intracranial bleed ICD Code: I62.9 - Nontraumatic intracranial hemorrhage, unspecified Status: Acute Assessment and Plan Inability to care for self, unsafe discharge: due to trauma and confusion -PT/OT following. Confusion/Anxiety/agitation: Likely attributed to previous brain hemorrhage and/ or chronic alcohol abuse. -Ammonia level normal. -Continue sitter and bed alarm -Patient has tried to elope multiple times and has acted out violently against staff. Has periods of confusion. I discussed patient with Dr. Nelson, psychiatrist, and we agree patient does NOT have capacity to sign out AMA. If needed patient can be placed in soft restraints for her safety and the safety of staff. -ST eval on 07/26 states cognition varies; needs supervision at discharge. -Continue Xanax 0.5 mg tid prn anxiety -Patient did require a dose of Haldol on 07/25/17. Per RN report, patient was aggressive hitting staff, trying to run away stating she wanted to check on her dogs in [place], [place]. -Patient continues to be confused. Multiple traumatic injuries Forehead laceration, subdural hemorrhage, ventricular hemorrhage, nasal fracture, C6 fracture, C1-C2 subluxation, C4 transverse process fracture, right rib fracture, L1 transverse process fracture, right pubic rami fracture Continue c-collar Specialist no longer following patient, patient will require outpatient follow- up if discharge May use Tylenol as needed. R groin pain. New pelvis x-ray obtained 06/30 is stable. Pain improved. [place] discontinued. Patient has been ambulating without issue. Hypertension: Stable. Was prescribed Lisinopril, Amlodipine, and Labetalol when initially discharged on 06/22/17 after trauma prior to readmission same day. Amlodipine 10 mg daily Lisinopril 20 mg daily 07/30: BP has remained normal after holding amlodipine and lisinopril yesterday. Meds again held this morning. 07/31: BP meds were given by RN this morning even though patient's BP was 105/ 73. Will place hold on meds. I instructed nurse yesterday to check BP every 4 hours but apparently this was not done, will place new order. If BP remains normal, will discontinue medications. DVT prevention OOB ad rola, sequential compression devices if in bed Discharge Planning 07/26: CM awaiting funding source for placement as patient requires supervision for safety due to cognitive deficits. Problem Qualifiers (1) Hypertension: Qualified Codes: I10 - Essential (primary) hypertension Azlu Sarkar Jul 31, 2017 11:08
[2017-07-31] MEDS: ALPRAZolam 0.5 MG TAB PO PRN ×2 (13:56→19:46)
[2017-07-31 16:00] VITALS: BP 108/72; PULSE 68; RESP 16; TEMP 96.7; O2SAT 94
[2017-07-31] MEDS: ACETAMINOPHEN 325 MG TAB PO PRN (19:47)
[2017-07-31 20:14] VITALS: BP 107/70; PULSE 68; RESP 16; TEMP 97.7; O2SAT 95
[2017-08-01 08:00] VITALS: BP 99/72; PULSE 61; RESP 20; TEMP 98.1; O2SAT 96
[2017-08-01] MEDS: FLUoxetine HCL 20 MG CAP PO SCH (09:03)
[2017-08-01] MEDS: ALPRAZolam 0.5 MG TAB PO PRN ×2 (10:07→17:49)
--- NOTE | 2017-08-01 11:34 | HHI.PR ---
Subjective Remarks Follow up for unsafe discharge, cognitive deficits. No acute complaints. Objective Vitals Vital Signs Date Time Temp Pulse Resp B/P (MAP) Pulse Ox O2 Delivery O2 Flow Rate FiO2 08/01/17 08:00 98.1 61 20 99/72 (81) 96 07/31/17 20:14 97.7 68 16 107/70 (82) 95 07/31/17 16:00 96.7 68 16 108/72 (84) 94 I/O 07/31/17 07/31/17 07/31/17 08/01/17 08/01/17 08/01/17 07:00 15:00 23:00 07:00 15:00 23:00 Intake Total 1260 ml 550 ml Balance 1260 ml 550 ml Intake Oral 1260 ml 550 ml # Voids 8 4 # Bowel Movements 2 1 Objective Remarks GENERAL: Pleasant patient in no apparent distress. CARDIOVASCULAR: Regular rate and rhythm. RESPIRATORY: No accessory muscle use. Clear to auscultation. Breath sounds equal bilaterally. NEUROLOGICAL: Awake and alert. Normal speech. PSYCHIATRIC: Normal mood and affect. Still confused. Prior to exam I heard her telling staff that she had just come down on Wednesday. Urinary Catheter: No Vascular Central Line Catheter: No A/P Problem List: (1) Inability to walk ICD Code: R26.2 - Difficulty in walking, not elsewhere classified Status: Acute (2) Alcohol dependence in controlled environment ICD Code: F10.20 - Alcohol dependence, uncomplicated Status: Acute (3) Facial injury ICD Code: S09.93XA - Unspecified injury of face, initial encounter Status: Acute (4) Fall ICD Code: W19.XXXA - Unspecified fall, initial encounter Status: Acute (5) Hypertension ICD Code: I10 - Essential (primary) hypertension Status: Acute (6) Pelvic fracture ICD Code: S32.9XXA - Fracture of unspecified parts of lumbosacral spine and pelvis, initial encounter for closed fracture Status: Acute (7) C1-C2 subluxation ICD Code: S13.120A - Subluxation of C1/C2 cervical vertebrae, initial encounter Status: Acute (8) C6 cervical fracture ICD Code: S12.500A - Unspecified displaced fracture of sixth cervical vertebra , initial encounter for closed fracture Status: Acute (9) Traumatic brain injury ICD Code: S06.9X9A - Unspecified intracranial injury with loss of consciousness of unspecified duration, initial encounter Status: Acute (10) Nasal fracture ICD Code: S02.2XXA - Fracture of nasal bones, initial encounter for closed fracture Status: Acute (11) Mild neurocognitive disorder ICD Code: G31.84 - Mild cognitive impairment, so stated Status: Acute (12) Intracranial bleed ICD Code: I62.9 - Nontraumatic intracranial hemorrhage, unspecified Status: Acute Assessment and Plan Inability to care for self, unsafe discharge: due to trauma and confusion -PT/OT following. Confusion/Anxiety/agitation: Likely attributed to previous brain hemorrhage and/ or chronic alcohol abuse. -Ammonia level normal. -Continue sitter and bed alarm -Patient has tried to elope multiple times and has acted out violently against staff. Has periods of confusion. I discussed patient with Dr. Nelson, psychiatrist, and we agree patient does NOT have capacity to sign out AMA. If needed patient can be placed in soft restraints for her safety and the safety of staff. -ST eval on 07/26 states cognition varies; needs supervision at discharge. -Continue Xanax 0.5 mg tid prn anxiety -Patient did require a dose of Haldol on 07/25/17. Per RN report, patient was aggressive hitting staff, trying to run away stating she wanted to check on her dogs in [place], [place]. -Patient continues to be confused. Multiple traumatic injuries Forehead laceration, subdural hemorrhage, ventricular hemorrhage, nasal fracture, C6 fracture, C1-C2 subluxation, C4 transverse process fracture, right rib fracture, L1 transverse process fracture, right pubic rami fracture Continue c-collar Specialist no longer following patient, patient will require outpatient follow- up if discharge May use Tylenol as needed. R groin pain. New pelvis x-ray obtained 06/30 is stable. Pain improved. [place] discontinued. Patient has been ambulating without issue. Hypertension: Stable. Was prescribed Lisinopril, Amlodipine, and Labetalol when initially discharged on 06/22/17 after trauma prior to readmission same day. Amlodipine 10 mg daily Lisinopril 20 mg daily 08/01: Hypotensive today but MAP good. Aside from yesterday, BP meds were held on two prior days and there was no significant HTN. Will discontinue above medications. DVT prevention OOB ad rola, sequential compression devices if in bed Discharge Planning 07/26: CM awaiting funding source for placement as patient requires supervision for safety due to cognitive deficits. Problem Qualifiers (1) Hypertension: Qualified Codes: I10 - Essential (primary) hypertension Azul Sarkar Aug 01, 2017 11:34
[2017-08-01 12:00] VITALS: BP 93/81; PULSE 98; RESP 20; TEMP 97.4; O2SAT 93
[2017-08-01] MEDS: ACETAMINOPHEN 325 MG TAB PO PRN (17:49)
[2017-08-01 21:14] VITALS: BP 107/72; PULSE 69; RESP 16; TEMP 97.2; O2SAT 97
[2017-08-02] MEDS: ALPRAZolam 0.5 MG TAB PO PRN ×3 (00:02→21:57)
[2017-08-02] MEDS: ACETAMINOPHEN 325 MG TAB PO PRN ×2 (00:02→21:57)
[2017-08-02 08:00] VITALS: BP 127/83; PULSE 55; RESP 16; TEMP 96; O2SAT 94
[2017-08-02] MEDS: FLUoxetine HCL 20 MG CAP PO SCH (08:38)
--- NOTE | 2017-08-02 09:34 | HHI.PR ---
Subjective Remarks Follow-up for cognitive deficits, unsafe discharge. Again not wearing cervical collar. Objective Vitals Vital Signs Date Time Temp Pulse Resp B/P (MAP) Pulse Ox O2 Delivery O2 Flow Rate FiO2 08/02/17 08:00 96.0 55 16 127/83 (98) 94 08/02/17 04:03 08/01/17 21:14 97.2 69 16 107/72 (84) 97 08/01/17 18:49 18 08/01/17 18:49 18 08/01/17 12:00 97.4 98 20 93/81 (85) 93 I/O 08/01/17 08/01/17 08/01/17 08/02/17 08/02/17 08/02/17 07:00 15:00 23:00 07:00 15:00 23:00 Intake Total 1040 ml 300 ml Balance 1040 ml 300 ml Intake Oral 1040 ml 300 ml # Voids 4 4 1 4 # Bowel Movements 1 1 1 Objective Remarks GENERAL: Pleasant patient in no apparent distress. CARDIOVASCULAR: Regular rate and rhythm. RESPIRATORY: No accessory muscle use. Clear to auscultation. Breath sounds equal bilaterally. GASTROINTESTINAL: Abdomen soft, non-tender, non-distended. MUSCULOSKELETAL: No lower extremity edema bilaterally. 2+ DP pulses bilaterally. NEUROLOGICAL: Awake and alert. Normal speech. PSYCHIATRIC: Normal mood and affect. Urinary Catheter: No Vascular Central Line Catheter: No A/P Problem List: (1) Inability to walk ICD Code: R26.2 - Difficulty in walking, not elsewhere classified Status: Acute (2) Alcohol dependence in controlled environment ICD Code: F10.20 - Alcohol dependence, uncomplicated Status: Acute (3) Facial injury ICD Code: S09.93XA - Unspecified injury of face, initial encounter Status: Acute (4) Fall ICD Code: W19.XXXA - Unspecified fall, initial encounter Status: Acute (5) Hypertension ICD Code: I10 - Essential (primary) hypertension Status: Acute (6) Pelvic fracture ICD Code: S32.9XXA - Fracture of unspecified parts of lumbosacral spine and pelvis, initial encounter for closed fracture Status: Acute (7) C1-C2 subluxation ICD Code: S13.120A - Subluxation of C1/C2 cervical vertebrae, initial encounter Status: Acute (8) C6 cervical fracture ICD Code: S12.500A - Unspecified displaced fracture of sixth cervical vertebra , initial encounter for closed fracture Status: Acute (9) Traumatic brain injury ICD Code: S06.9X9A - Unspecified intracranial injury with loss of consciousness of unspecified duration, initial encounter Status: Acute (10) Nasal fracture ICD Code: S02.2XXA - Fracture of nasal bones, initial encounter for closed fracture Status: Acute (11) Mild neurocognitive disorder ICD Code: G31.84 - Mild cognitive impairment, so stated Status: Acute (12) Intracranial bleed ICD Code: I62.9 - Nontraumatic intracranial hemorrhage, unspecified Status: Acute Assessment and Plan Inability to care for self, unsafe discharge: due to trauma and confusion -PT/OT following. Confusion/Anxiety/agitation: Likely attributed to previous brain hemorrhage and/ or chronic alcohol abuse. -Ammonia level normal. -Continue sitter and bed alarm -Patient has tried to elope multiple times and has acted out violently against staff. Has periods of confusion. I discussed patient with Dr. Nelson, psychiatrist, and we agree patient does NOT have capacity to sign out AMA. If needed patient can be placed in soft restraints for her safety and the safety of staff. -ST eval on 07/26 states cognition varies; needs supervision at discharge. -Continue Xanax 0.5 mg tid prn anxiety -Patient did require a dose of Haldol on 07/25/17. Per RN report, patient was aggressive hitting staff, trying to run away stating she wanted to check on her dogs in [place], [place]. -Patient continues to be confused. Multiple traumatic injuries Forehead laceration, subdural hemorrhage, ventricular hemorrhage, nasal fracture, C6 fracture, C1-C2 subluxation, C4 transverse process fracture, right rib fracture, L1 transverse process fracture, right pubic rami fracture Continue c-collar. Patient non-compliant. Takes it off everyday. Specialist no longer following patient, patient will require outpatient follow- up if discharge May use Tylenol as needed. R groin pain. New pelvis x-ray obtained 06/30 is stable. Pain improved. [place] discontinued. Patient has been ambulating without issue. Hypertension: Stable. Was prescribed Lisinopril, Amlodipine, and Labetalol when initially discharged on 06/22/17 after trauma prior to readmission same day. 08/02: BP wnl after discontinuation of Lisinopril and Amlodipine. DVT prevention OOB ad rola, sequential compression devices if in bed Discharge Planning 07/26: CM awaiting funding source for placement as patient requires supervision for safety due to cognitive deficits. Problem Qualifiers (1) Hypertension: Qualified Codes: I10 - Essential (primary) hypertension Azul Sarkar Aug 02, 2017 09:34
[2017-08-02 12:00] VITALS: BP 129/92; PULSE 75; RESP 16; TEMP 96.2; O2SAT 99
[2017-08-02 20:00] VITALS: BP 110/80; PULSE 71; RESP 20; TEMP 98.3; O2SAT 93
[2017-08-03 08:00] VITALS: BP 135/87; PULSE 67; RESP 20; TEMP 96.7; O2SAT 97
[2017-08-03] MEDS: FLUoxetine HCL 20 MG CAP PO SCH (08:02)
--- NOTE | 2017-08-03 10:09 | HHI.PR ---
Subjective Remarks Patient is a exam today for follow-up on cognitive issues as creating an unsafe discharge. No change in patient clinical status. Patient is medically stable for discharge however because of underlying cognitive and psychological issues patient is unable to be discharged safely. Objective Vitals Vital Signs Date Time Temp Pulse Resp B/P (MAP) Pulse Ox O2 Delivery O2 Flow Rate FiO2 08/03/17 08:00 96.7 67 20 135/87 (103) 97 08/02/17 20:00 98.3 71 20 110/80 (90) 93 08/02/17 12:00 96.2 75 16 129/92 (104) 99 I/O 08/02/17 08/02/17 08/02/17 08/03/17 08/03/17 08/03/17 07:00 15:00 23:00 07:00 15:00 23:00 Intake Total 800 ml 240 ml Balance 800 ml 240 ml Intake Oral 800 ml 240 ml # Voids 4 4 2 # Bowel Movements 1 1 Objective Remarks GENERAL: Well-developed, well-nourished, in no acute distress. alert and orientated to person, year, month, day of the week. She indicates that she is from [place], but she knows that she states that she is in [place] HEENT: Head is normocephalic without any lesions or masses noted. Facial features are symmetric. Eyes: Extraocular muscles are intact. Conjunctivae were clear. NECK: C-collar in on table at bedside CARDIAC: Regular rhythm, regular rate. S1/S2 are heard. No murmurs gallops or rubs. LUNGS: Clear to auscultation bilaterally. No wheeze, rhonchi or rales. No use of accessory muscles on inspiration or expiration. ABDOMEN: Soft, nontender. Nondistended. Bowel sounds heard in all 4 quadrants. No organomegaly or masses. Negative rebound, negative guarding EXTREMITIES: No edema, pulses are equal bilaterally. No cyanosis or clubbing NEUROLOGY: Mood and affect appear appropriate. Cranial nerves II through XII grossly intact moving all extremities, speech is clear Urinary Catheter: No Vascular Central Line Catheter: No A/P Assessment and Plan Inability to care for self, unsafe discharge Records indicated that the patient cannot walk, she was planned to discharge to a homeless senior living, however it was deemed unsafe to discharge Continue PT/OT until patient cleared by therapies that she can perform her ADLs and ambulate unassisted Speech therapy following the patient, it would appear as if speech therapy did come to evaluation on 06/23/17. Indicates patient moderate to severe cognitive defects. Indicating patient dependent with partial help needed. Then on 06/24 it was indicated that patient independent. Then after that documentation goes back to the patient is dependent with partial help needed. Speech therapy cognitive evaluation was states MOCA score 20/30, however still stating that she needs to have supervision --Physical therapy indicates patient is standby assist only, walking 900 feet, states requires supervision at home for safety. Assisted living facility --Occupational therapy indicates patient can go home with home health care OT and supervision --Case management for discharge planning --Psychiatry originally evaluated the patient and indicates that there is no question about capacity. MIni mental state 28-30, however it is documented that psychiatry was called and indicated that patient is not competent to make decisions about AMA discharge. --Psychiatry reconsulted. 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 But presently she is stable in order to make her own decisions. --Patient is medically stable for discharge, however due to underlying psychiatric/cognition patient is unsafe discharge until ranges made by case management Multiple traumatic injuries, Patient laceration, subdural hemorrhage, ventricular hemorrhage, nasal fracture , C6 fracture, C1-C2 subluxation, C4 transverse process fracture, right rib fracture, L1 transverse process fracture, right pubic rami fracture Continue c-collar this time, however patient does not wear Specialist no longer following patient, patient will require outpatient follow- up if discharge Patient denies any active pain. patient may use Tylenol as needed, Robaxin as needed for muscle spasms Hypertension, stable Amlodipine 10 mg daily, Lisinopril 20 mg daily have been discontinued due to stable blood pressure DVT prevention Sequential compression devices Discharge Planning aerial planting and cultivation manager consulted multiple times to help arrange safe discharge, awaiting response Conrado Mariee Aug 03, 2017 10:09
[2017-08-03] MEDS: ALPRAZolam 0.5 MG TAB PO PRN ×2 (11:49→17:48)
[2017-08-03 20:00] VITALS: BP 120/76; PULSE 63; RESP 20; TEMP 96.9; O2SAT 95
[2017-08-04] MEDS: ALPRAZolam 0.5 MG TAB PO PRN ×3 (07:51→19:47)
[2017-08-04] MEDS: FLUoxetine HCL 20 MG CAP PO SCH (07:51)
[2017-08-04] MEDS: ACETAMINOPHEN 325 MG TAB PO PRN ×2 (07:51→19:47)
[2017-08-04 08:00] VITALS: BP 153/84; PULSE 86; RESP 18; TEMP 97; O2SAT 96
--- NOTE | 2017-08-04 11:39 | HHI.PR ---
Subjective Remarks Patient seen and examined today for follow-up on a safe discharge due to cognition/psychiatric issues. Patient denies any new complaints. Patient continues to be medically stable. Awaiting case management for discharge planning Objective Vitals Vital Signs Date Time Temp Pulse Resp B/P (MAP) Pulse Ox O2 Delivery O2 Flow Rate FiO2 08/04/17 09:10 18 08/04/17 08:00 97.0 86 18 153/84 (107) 96 08/03/17 20:00 96.9 63 20 120/76 (91) 95 I/O 08/03/17 08/03/17 08/03/17 08/04/17 08/04/17 08/04/17 07:00 15:00 23:00 07:00 15:00 23:00 Intake Total 240 ml 0 ml Balance 240 ml 0 ml Intake Oral 240 ml 0 ml # Voids 2 5 Objective Remarks GENERAL: Well-developed, well-nourished, in no acute distress. alert and orientated to person, year, month, day of the week. She indicates that she is from [place], but she knows that she states that she is in [place] HEENT: Head is normocephalic without any lesions or masses noted. Facial features are symmetric. Eyes: Extraocular muscles are intact. Conjunctivae were clear. NECK: C-collar in on table at bedside CARDIAC: Regular rhythm, regular rate. S1/S2 are heard. No murmurs gallops or rubs. LUNGS: Clear to auscultation bilaterally. No wheeze, rhonchi or rales. No use of accessory muscles on inspiration or expiration. ABDOMEN: Soft, nontender. Nondistended. Bowel sounds heard in all 4 quadrants. No organomegaly or masses. Negative rebound, negative guarding EXTREMITIES: No edema, pulses are equal bilaterally. No cyanosis or clubbing NEUROLOGY: Mood and affect appear appropriate. Cranial nerves II through XII grossly intact moving all extremities, speech is clear Urinary Catheter: No Vascular Central Line Catheter: No A/P Assessment and Plan Inability to care for self, unsafe discharge Records indicated that the patient cannot walk, she was planned to discharge to a homeless fci, however it was deemed unsafe to discharge Continue PT/OT until patient cleared by therapies that she can perform her ADLs and ambulate unassisted Speech therapy following the patient, it would appear as if speech therapy did come to evaluation on 06/23/17. Indicates patient moderate to severe cognitive defects. Indicating patient dependent with partial help needed. Then on 06/24 it was indicated that patient independent. Then after that documentation goes back to the patient is dependent with partial help needed. Speech therapy cognitive evaluation was states MOCA score 20/30, however still stating that she needs to have supervision --Physical therapy indicates patient is standby assist only, walking 900 feet, states requires supervision at home for safety. Assisted living facility --Occupational therapy indicates patient can go home with home health care OT and supervision --Case management for discharge planning --Psychiatry originally evaluated the patient and indicates that there is no question about capacity. MIni mental state 28-30, however it is documented that psychiatry was called and indicated that patient is not competent to make decisions about AMA discharge. --Psychiatry reconsulted. 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 But presently she is stable in order to make her own decisions. --Patient is medically stable for discharge, however due to underlying psychiatric/cognition patient is unsafe discharge until ranges made by case management Multiple traumatic injuries, Patient laceration, subdural hemorrhage, ventricular hemorrhage, nasal fracture , C6 fracture, C1-C2 subluxation, C4 transverse process fracture, right rib fracture, L1 transverse process fracture, right pubic rami fracture Continue c-collar this time, however patient does not wear Specialist no longer following patient, patient will require outpatient follow- up if discharge Patient denies any active pain. patient may use Tylenol as needed, Robaxin as needed for muscle spasms Hypertension, stable Amlodipine 10 mg daily, Lisinopril 20 mg daily have been discontinued due to stable blood pressure DVT prevention Sequential compression devices Discharge Planning retail manager consulted multiple times to help arrange safe discharge, awaiting response Conrado Mariee Aug 04, 2017 11:39
[2017-08-04 20:00] VITALS: BP 119/88; PULSE 74; RESP 20; TEMP 97; O2SAT 97
[2017-08-05] MEDS: FLUoxetine HCL 20 MG CAP PO SCH (07:40)
[2017-08-05] MEDS: ALPRAZolam 0.5 MG TAB PO PRN ×2 (07:41→14:28)
[2017-08-05 08:00] VITALS: BP 107/93; PULSE 74; RESP 16; TEMP 95.9; O2SAT 99
--- NOTE | 2017-08-05 08:55 | HHI.PR ---
Subjective Remarks Patient seen and examined today in follow-up for a safe discharge due to cognitive issues. Patient is doing well. Denies any new complaints. Awaiting case management for discharge planning. Objective Vitals Vital Signs Date Time Temp Pulse Resp B/P (MAP) Pulse Ox O2 Delivery O2 Flow Rate FiO2 08/05/17 08:00 95.9 74 16 107/93 (98) 99 08/04/17 20:00 97.0 74 20 119/88 (98) 97 08/04/17 09:10 18 I/O 08/04/17 08/04/17 08/04/17 08/05/17 08/05/17 08/05/17 07:00 15:00 23:00 07:00 15:00 23:00 Intake Total 0 ml 240 ml 60 ml Balance 0 ml 240 ml 60 ml Intake Oral 0 ml 240 ml 60 ml # Voids 5 2 2 # Bowel Movements 0 0 Objective Remarks GENERAL: Well-developed, well-nourished, in no acute distress. alert and orientated to person, year, month, day of the week. She indicates that she is from [place], but she knows that she states that she is in [place] HEENT: Head is normocephalic without any lesions or masses noted. Facial features are symmetric. Eyes: Extraocular muscles are intact. Conjunctivae were clear. NECK: C-collar in on table at bedside CARDIAC: Regular rhythm, regular rate. S1/S2 are heard. No murmurs gallops or rubs. LUNGS: Clear to auscultation bilaterally. No wheeze, rhonchi or rales. No use of accessory muscles on inspiration or expiration. ABDOMEN: Soft, nontender. Nondistended. Bowel sounds heard in all 4 quadrants. No organomegaly or masses. Negative rebound, negative guarding EXTREMITIES: No edema, pulses are equal bilaterally. No cyanosis or clubbing NEUROLOGY: Mood and affect appear appropriate. Cranial nerves II through XII grossly intact moving all extremities, speech is clear Urinary Catheter: No Vascular Central Line Catheter: No A/P Assessment and Plan Inability to care for self, unsafe discharge Records indicated that the patient cannot walk, she was planned to discharge to a homeless skilled nursing, however it was deemed unsafe to discharge Continue PT/OT until patient cleared by therapies that she can perform her ADLs and ambulate unassisted Speech therapy following the patient, it would appear as if speech therapy did come to evaluation on 06/23/17. Indicates patient moderate to severe cognitive defects. Indicating patient dependent with partial help needed. Then on 06/24 it was indicated that patient independent. Then after that documentation goes back to the patient is dependent with partial help needed. Speech therapy cognitive evaluation was states MOCA score 20/30, however still stating that she needs to have supervision --Physical therapy indicates patient is standby assist only, walking 900 feet, states requires supervision at home for safety. Assisted living facility --Occupational therapy indicates patient can go home with home health care OT and supervision --Case management for discharge planning --Psychiatry originally evaluated the patient and indicates that there is no question about capacity. MIni mental state 28-30, however it is documented that psychiatry was called and indicated that patient is not competent to make decisions about AMA discharge. --Psychiatry reconsulted. 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 But presently she is stable in order to make her own decisions. --Patient is medically stable for discharge, however due to underlying psychiatric/cognition patient is unsafe discharge until arrangements made by case management Multiple traumatic injuries, Patient laceration, subdural hemorrhage, ventricular hemorrhage, nasal fracture , C6 fracture, C1-C2 subluxation, C4 transverse process fracture, right rib fracture, L1 transverse process fracture, right pubic rami fracture Continue c-collar this time, however patient does not wear Specialist no longer following patient, patient will require outpatient follow- up if discharge Patient denies any active pain. patient may use Tylenol as needed, Hypertension, stable Continue monitor blood pressures since medications have all been discontinued DVT prevention Sequential compression devices Discharge Planning assistant purchasing manager consulted multiple times to help arrange safe discharge, awaiting response Conrado Mariee Aug 05, 2017 08:55
[2017-08-05 19:00] VITALS: BP 110/85; PULSE 70; RESP 18; TEMP 97.6; O2SAT 99
[2017-08-06 08:00] VITALS: BP 137/85; PULSE 60; RESP 20; TEMP 97.3; O2SAT 97
[2017-08-06] MEDS: FLUoxetine HCL 20 MG CAP PO SCH ×2 (09:00→10:09)
[2017-08-06] MEDS: ALPRAZolam 0.5 MG TAB PO PRN ×3 (10:09→18:22)
--- NOTE | 2017-08-06 11:12 | HHI.PR ---
Subjective Remarks Patient seen and examined today for follow-up on unsafe discharge due to cognition. No change in patient's clinical status, patient is medically stable , however due to cognition/psychiatric issues she is unable to discharge. Awaiting case management for discharge planning Objective Vitals Vital Signs Date Time Temp Pulse Resp B/P (MAP) Pulse Ox O2 Delivery O2 Flow Rate FiO2 08/06/17 08:00 97.3 60 20 137/85 (102) 97 08/05/17 19:00 97.6 70 18 110/85 (93) 99 I/O 08/05/17 08/05/17 08/05/17 08/06/17 08/06/17 08/06/17 07:00 15:00 23:00 07:00 15:00 23:00 Intake Total 720 ml 120 ml Balance 720 ml 120 ml Intake Oral 720 ml 120 ml # Voids 7 4 # Bowel Movements 1 0 Objective Remarks GENERAL: Well-developed, well-nourished, in no acute distress. alert and orientated to person, year, month, day of the week. She indicates that she is from [place], but she knows that she states that she is in [place] HEENT: Head is normocephalic without any lesions or masses noted. Facial features are symmetric. Eyes: Extraocular muscles are intact. Conjunctivae were clear. NECK: C-collar in on table at bedside CARDIAC: Regular rhythm, regular rate. S1/S2 are heard. No murmurs gallops or rubs. LUNGS: Clear to auscultation bilaterally. No wheeze, rhonchi or rales. No use of accessory muscles on inspiration or expiration. ABDOMEN: Soft, nontender. Nondistended. Bowel sounds heard in all 4 quadrants. No organomegaly or masses. Negative rebound, negative guarding EXTREMITIES: No edema, pulses are equal bilaterally. No cyanosis or clubbing NEUROLOGY: Mood and affect appear appropriate. Cranial nerves II through XII grossly intact moving all extremities, speech is clear Urinary Catheter: No Vascular Central Line Catheter: No A/P Assessment and Plan Inability to care for self, unsafe discharge Records indicated that the patient cannot walk, she was planned to discharge to a homeless intermediate, however it was deemed unsafe to discharge Continue PT/OT until patient cleared by therapies that she can perform her ADLs and ambulate unassisted Speech therapy following the patient, it would appear as if speech therapy did come to evaluation on 06/23/17. Indicates patient moderate to severe cognitive defects. Indicating patient dependent with partial help needed. Then on 06/24 it was indicated that patient independent. Then after that documentation goes back to the patient is dependent with partial help needed. Speech therapy cognitive evaluation was states MOCA score 20/30, however still stating that she needs to have supervision --Physical therapy indicates patient is standby assist only, walking 900 feet, states requires supervision at home for safety. Assisted living facility --Occupational therapy indicates patient can go home with home health care OT and supervision --Case management for discharge planning --Psychiatry originally evaluated the patient and indicates that there is no question about capacity. MIni mental state 28-30, however it is documented that psychiatry was called and indicated that patient is not competent to make decisions about AMA discharge. --Psychiatry reconsulted. 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 But presently she is stable in order to make her own decisions. --Patient is medically stable for discharge, however due to underlying psychiatric/cognition patient is unsafe discharge until arrangements made by case management Multiple traumatic injuries, Patient laceration, subdural hemorrhage, ventricular hemorrhage, nasal fracture , C6 fracture, C1-C2 subluxation, C4 transverse process fracture, right rib fracture, L1 transverse process fracture, right pubic rami fracture Continue c-collar this time, however patient does not wear Specialist no longer following patient, patient will require outpatient follow- up if discharge Patient denies any active pain. patient may use Tylenol as needed, Hypertension, stable Continue monitor blood pressures since medications have all been discontinued DVT prevention Sequential compression devices Discharge Planning refractory manager consulted multiple times to help arrange safe discharge, awaiting response Conrado Mariee Aug 06, 2017 11:12
[2017-08-06 20:00] VITALS: BP 138/91; PULSE 68; RESP 20; TEMP 97.4; O2SAT 99
[2017-08-06] MEDS ORDERED: HALOPERIDOL LACTATE 5 MG/ML AMP IM ONE (20:30)
[2017-08-07] MEDS: ACETAMINOPHEN 325 MG TAB PO PRN ×2 (05:59→21:22)
[2017-08-07 08:00] VITALS: BP 118/71; PULSE 76; RESP 18; TEMP 97.8; O2SAT 95
--- NOTE | 2017-08-07 08:21 | HHI.PR ---
Subjective Remarks Patient seen and examined today for follow-up on a safe discharge due to cognition. No change in clinical status. Awaiting case management for discharge planning. Objective Vitals Vital Signs Date Time Temp Pulse Resp B/P (MAP) Pulse Ox O2 Delivery O2 Flow Rate FiO2 08/06/17 20:00 97.4 68 20 138/91 (107) 99 I/O 08/06/17 08/06/17 08/06/17 08/07/17 08/07/17 08/07/17 07:00 15:00 23:00 07:00 15:00 23:00 Intake Total 120 ml Balance 120 ml Intake Oral 120 ml # Voids 4 3 1 # Bowel Movements 0 Objective Remarks GENERAL: Well-developed, well-nourished, in no acute distress. alert and orientated waxes and wanes daily HEENT: Head is normocephalic without any lesions or masses noted. Facial features are symmetric. Eyes: Extraocular muscles are intact. Conjunctivae were clear. NECK: C-collar in on table at bedside CARDIAC: Regular rhythm, regular rate. S1/S2 are heard. No murmurs gallops or rubs. LUNGS: Clear to auscultation bilaterally. No wheeze, rhonchi or rales. No use of accessory muscles on inspiration or expiration. ABDOMEN: Soft, nontender. Nondistended. Bowel sounds heard in all 4 quadrants. No organomegaly or masses. Negative rebound, negative guarding EXTREMITIES: No edema, pulses are equal bilaterally. No cyanosis or clubbing NEUROLOGY: Mood and affect appear appropriate. Cranial nerves II through XII grossly intact moving all extremities, speech is clear Urinary Catheter: No Vascular Central Line Catheter: No A/P Assessment and Plan Inability to care for self, unsafe discharge Initially he was indicated patient cannot walk, patient is walking at this time, PT and OT recommending supervision at home for safety Speech therapy following the patient intermittently for cognitive evaluations. 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 MIni mental state 28-30, Patient is medically stable for discharge, however due to underlying psychiatric/cognition patient is unsafe discharge until arrangements made by case management Case management for discharge planning Multiple traumatic injuries, Patient laceration, subdural hemorrhage, ventricular hemorrhage, nasal fracture, C6 fracture, C1-C2 subluxation, C4 transverse process fracture, right rib fracture, L1 transverse process fracture, right pubic rami fracture Continue c-collar this time, however patient does not wear Specialist no longer following patient, patient will require outpatient follow-up if discharge Hypertension, Restart amlodipine 5 mg daily DVT prevention Patient ambulating Sequential compression devices while in bed Discharge Planning hospice case manager consulted multiple times to help arrange safe discharge Conrado Mariee Aug 07, 2017 08:21
[2017-08-07] MEDS: ALPRAZolam 0.5 MG TAB PO PRN ×2 (10:19→21:22)
[2017-08-07] MEDS: amLODIPine BESYLATE 5 MG TAB PO SCH (10:19)
[2017-08-07 20:24] VITALS: BP 127/83; PULSE 64; RESP 16; TEMP 97.9; O2SAT 96
[2017-08-08 08:00] VITALS: BP 174/100; PULSE 63; RESP 18; TEMP 97.5; O2SAT 97
--- NOTE | 2017-08-08 08:08 | HHI.PR ---
Subjective Remarks Patient seen and examined today for follow-up on a safe discharge due to cognition. Patient eating breakfast this morning. Denies any new complaints. She always asks when she would be able to leave Objective Vitals Vital Signs Date Time Temp Pulse Resp B/P (MAP) Pulse Ox O2 Delivery O2 Flow Rate FiO2 08/07/17 20:24 97.9 64 16 127/83 (98) 96 I/O 08/07/17 08/07/17 08/07/17 08/08/17 08/08/17 08/08/17 07:00 15:00 23:00 07:00 15:00 23:00 # Voids 1 1 2 # Bowel Movements 2 Objective Remarks GENERAL: Well-developed, well-nourished, in no acute distress. alert and orientated waxes and wanes daily HEENT: Head is normocephalic without any lesions or masses noted. Facial features are symmetric. Eyes: Extraocular muscles are intact. Conjunctivae were clear. NECK: C-collar in on table at bedside CARDIAC: Regular rhythm, regular rate. S1/S2 are heard. No murmurs gallops or rubs. LUNGS: Clear to auscultation bilaterally. No wheeze, rhonchi or rales. No use of accessory muscles on inspiration or expiration. ABDOMEN: Soft, nontender. Nondistended. Bowel sounds heard in all 4 quadrants. No organomegaly or masses. Negative rebound, negative guarding EXTREMITIES: No edema, pulses are equal bilaterally. No cyanosis or clubbing NEUROLOGY: Mood and affect appear appropriate. Cranial nerves II through XII grossly intact moving all extremities, speech is clear Urinary Catheter: No Vascular Central Line Catheter: No A/P Assessment and Plan Inability to care for self, unsafe discharge Initially he was indicated patient cannot walk, patient is walking at this time, PT and OT recommending supervision at home for safety Speech therapy following the patient intermittently for cognitive evaluations. 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 MIni mental state 28-30, Patient is medically stable for discharge, however due to underlying psychiatric/cognition patient is unsafe discharge until arrangements made by case management Case management for discharge planning Multiple traumatic injuries, Patient laceration, subdural hemorrhage, ventricular hemorrhage, nasal fracture, C6 fracture, C1-C2 subluxation, C4 transverse process fracture, right rib fracture, L1 transverse process fracture, right pubic rami fracture Continue c-collar this time, however patient does not wear Specialist no longer following patient, patient will require outpatient follow-up if discharge Hypertension, Restart amlodipine 5 mg daily DVT prevention Patient ambulating Sequential compression devices while in bed Awaiting case resolution specialist discharge planning. Records reviewed, no change in clinical status or treatment plan Discharge Planning Case management for discharge planning Conrado Mariee Aug 08, 2017 08:08
[2017-08-08] MEDS: ALPRAZolam 0.5 MG TAB PO PRN ×3 (08:54→21:26)
[2017-08-08] MEDS: FLUoxetine HCL 20 MG CAP PO SCH (08:54)
[2017-08-08] MEDS: amLODIPine BESYLATE 5 MG TAB PO SCH (08:54)
[2017-08-08 19:00] VITALS: BP 130/93; PULSE 71; RESP 18; TEMP 97.2; O2SAT 95
--- NOTE | 2017-08-09 07:49 | HHI.PR ---
Subjective Remarks Patient seen and examined today for a safe discharge due to cognition. Patient resting back carefully. Always ask when wish to be able to go home. Patient is told on a daily basis that case management is managing her discharge Objective Vitals Vital Signs Date Time Temp Pulse Resp B/P (MAP) Pulse Ox O2 Delivery O2 Flow Rate FiO2 08/08/17 19:00 97.2 71 18 130/93 (105) 95 08/08/17 08:00 97.5 63 18 174/100 (124) 97 I/O 08/08/17 08/08/17 08/08/17 08/09/17 08/09/17 08/09/17 07:00 15:00 23:00 07:00 15:00 23:00 Intake Total 240 ml 240 ml Balance 240 ml 240 ml Intake Oral 240 ml 240 ml # Voids 2 2 # Bowel Movements 3 Objective Remarks GENERAL: Well-developed, well-nourished, in no acute distress. alert and orientated waxes and wanes daily HEENT: Head is normocephalic without any lesions or masses noted. Facial features are symmetric. Eyes: Extraocular muscles are intact. Conjunctivae were clear. NECK: C-collar in on table at bedside CARDIAC: Regular rhythm, regular rate. S1/S2 are heard. No murmurs gallops or rubs. LUNGS: Clear to auscultation bilaterally. No wheeze, rhonchi or rales. No use of accessory muscles on inspiration or expiration. ABDOMEN: Soft, nontender. Nondistended. Bowel sounds heard in all 4 quadrants. No organomegaly or masses. Negative rebound, negative guarding EXTREMITIES: No edema, pulses are equal bilaterally. No cyanosis or clubbing NEUROLOGY: Mood and affect appear appropriate. Cranial nerves II through XII grossly intact moving all extremities, speech is clear Urinary Catheter: No Vascular Central Line Catheter: No A/P Assessment and Plan Inability to care for self, unsafe discharge Initially he was indicated patient cannot walk, patient is walking at this time, PT and OT recommending supervision at home for safety Speech therapy following the patient intermittently for cognitive evaluations. 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 MIni mental state 28-30, Patient is medically stable for discharge, however due to underlying psychiatric/cognition patient is unsafe discharge until arrangements made by case management Case management for discharge planning Multiple traumatic injuries, Patient laceration, subdural hemorrhage, ventricular hemorrhage, nasal fracture, C6 fracture, C1-C2 subluxation, C4 transverse process fracture, right rib fracture, L1 transverse process fracture, right pubic rami fracture Continue c-collar this time, however patient does not wear Specialist no longer following patient, patient will require outpatient follow-up if discharge Hypertension, Amlodipine 10 mg daily DVT prevention Patient ambulating Sequential compression devices while in bed Records reviewed, no change in clinical status or treatment plan, Awaiting telephonic case manager discharge planning. Discharge Planning Case management for discharge planning Conrado Mariee Aug 09, 2017 07:49
[2017-08-09 07:50] VITALS: BP 156/93; PULSE 68; RESP 20; TEMP 97.4; O2SAT 95
[2017-08-09] MEDS: FLUoxetine HCL 20 MG CAP PO SCH (08:44)
[2017-08-09] MEDS: ALPRAZolam 0.5 MG TAB PO PRN ×2 (08:44→13:32)
[2017-08-09 20:00] VITALS: BP 122/81; PULSE 70; RESP 20; TEMP 97.4; O2SAT 95
[2017-08-10 08:00] VITALS: BP 152/110; PULSE 72; RESP 20; TEMP 95.7; O2SAT 97
[2017-08-10] MEDS: FLUoxetine HCL 20 MG CAP PO SCH (08:04)
[2017-08-10] MEDS: ALPRAZolam 0.5 MG TAB PO PRN (08:05)
--- NOTE | 2017-08-10 09:11 | HHI.PR ---
Subjective Remarks Follow-up for cognitive deficits, unsafe discharge. No acute complaints. Patient asks when she will be discharged home stating that she has a job. Objective Vitals Vital Signs Date Time Temp Pulse Resp B/P (MAP) Pulse Ox O2 Delivery O2 Flow Rate FiO2 08/10/17 08:00 95.7 72 20 152/110 (124) 97 08/09/17 20:00 97.4 70 20 122/81 (95) 95 I/O 08/09/17 08/09/17 08/09/17 08/10/17 08/10/17 08/10/17 07:00 15:00 23:00 07:00 15:00 23:00 Intake Total 240 ml 1020 ml 240 ml Balance 240 ml 1020 ml 240 ml Intake Oral 240 ml 1020 ml 240 ml # Voids 2 5 1 # Bowel Movements 1 0 Objective Remarks GENERAL: Pleasant patient in no apparent distress. CARDIOVASCULAR: Regular rate and rhythm. RESPIRATORY: No accessory muscle use. Clear to auscultation. Breath sounds equal bilaterally. NEUROLOGICAL: Awake and alert. Confused. Normal speech. Ambulating normally. PSYCHIATRIC: Normal mood and affect. Urinary Catheter: No Vascular Central Line Catheter: No A/P Problem List: (1) Inability to walk ICD Code: R26.2 - Difficulty in walking, not elsewhere classified Status: Acute (2) Alcohol dependence in controlled environment ICD Code: F10.20 - Alcohol dependence, uncomplicated Status: Acute (3) Facial injury ICD Code: S09.93XA - Unspecified injury of face, initial encounter Status: Acute (4) Fall ICD Code: W19.XXXA - Unspecified fall, initial encounter Status: Acute (5) Hypertension ICD Code: I10 - Essential (primary) hypertension Status: Acute (6) Pelvic fracture ICD Code: S32.9XXA - Fracture of unspecified parts of lumbosacral spine and pelvis, initial encounter for closed fracture Status: Acute (7) C1-C2 subluxation ICD Code: S13.120A - Subluxation of C1/C2 cervical vertebrae, initial encounter Status: Acute (8) C6 cervical fracture ICD Code: S12.500A - Unspecified displaced fracture of sixth cervical vertebra , initial encounter for closed fracture Status: Acute (9) Traumatic brain injury ICD Code: S06.9X9A - Unspecified intracranial injury with loss of consciousness of unspecified duration, initial encounter Status: Acute (10) Nasal fracture ICD Code: S02.2XXA - Fracture of nasal bones, initial encounter for closed fracture Status: Acute (11) Mild neurocognitive disorder ICD Code: G31.84 - Mild cognitive impairment, so stated Status: Acute (12) Intracranial bleed ICD Code: I62.9 - Nontraumatic intracranial hemorrhage, unspecified Status: Acute Assessment and Plan Inability to care for self, unsafe discharge: due to trauma and confusion -PT/OT following. Confusion/Anxiety/agitation: Likely attributed to previous brain hemorrhage and/ or chronic alcohol abuse. -Ammonia level normal. -Continue sitter and bed alarm -Patient has tried to elope multiple times and has acted out violently against staff. Has periods of confusion. I discussed patient with Dr. Nelson, psychiatrist, and we agree patient does NOT have capacity to sign out AMA. If needed patient can be placed in soft restraints for her safety and the safety of staff. -ST eval on 07/26 states cognition varies; needs supervision at discharge. -Continue Xanax 0.5 mg tid prn anxiety -Patient did require a dose of Haldol on 07/25/17. Per RN report, patient was aggressive hitting staff, trying to run away stating she wanted to check on her dogs in [place], [place]. -Patient continues to be confused. Multiple traumatic injuries Forehead laceration, subdural hemorrhage, ventricular hemorrhage, nasal fracture, C6 fracture, C1-C2 subluxation, C4 transverse process fracture, right rib fracture, L1 transverse process fracture, right pubic rami fracture Continue c-collar. Patient non-compliant. Takes it off everyday. Specialist no longer following patient, patient will require outpatient follow- up if discharge May use Tylenol as needed. R groin pain. New pelvis x-ray obtained 06/30 is stable. Pain improved. [place] discontinued. Patient has been ambulating without issue. Hypertension: Lisinopril and Amlodipine were discontinued but BP started to increase again. Amlodipine was restarted on 08/07 and increased to 10 mg daily on 08/09. 08/10: BP 152/110 this morning prior to medication administration. Will continue to monitor and adjust medication regimen as needed. DVT prevention OOB ad rola, sequential compression devices if in bed Discharge Planning Patient requires supervision for safety due to cognitive deficits. 10/2: Per CM patient requires SSI/Medicaid approval . Son has been assisting, but has been resistant which has slowed process. Problem Qualifiers (1) Hypertension: Qualified Codes: I10 - Essential (primary) hypertension Azul Sarkar Aug 10, 2017 09:11
[2017-08-10 20:00] VITALS: BP 137/90; PULSE 73; RESP 20; TEMP 98.6; O2SAT 94
[2017-08-11 08:00] VITALS: BP 144/94; PULSE 67; RESP 20; TEMP 96.8; O2SAT 92
--- NOTE | 2017-08-11 08:59 | HHI.PR ---
Subjective Remarks Follow-up for unsafe discharge, cognitive deficits. No acute complaints. Objective Vitals Vital Signs Date Time Temp Pulse Resp B/P (MAP) Pulse Ox O2 Delivery O2 Flow Rate FiO2 08/11/17 08:00 96.8 67 20 144/94 (111) 92 08/10/17 20:00 98.6 73 20 137/90 (106) 94 I/O 08/10/17 08/10/17 08/10/17 08/11/17 08/11/17 08/11/17 07:00 15:00 23:00 07:00 15:00 23:00 Intake Total 240 ml 690 ml 240 ml Balance 240 ml 690 ml 240 ml Intake Oral 240 ml 690 ml 240 ml # Voids 1 4 3 # Bowel Movements 0 1 0 Objective Remarks GENERAL: Pleasant patient in no apparent distress. CARDIOVASCULAR: Regular rate and rhythm. RESPIRATORY: No accessory muscle use. Clear to auscultation. Breath sounds equal bilaterally. GASTROINTESTINAL: Abdomen soft, nontender, nondistended. NEUROLOGICAL: Awake and alert. Normal speech. PSYCHIATRIC: Normal mood and affect. Calm. Urinary Catheter: No Vascular Central Line Catheter: No A/P Problem List: (1) Inability to walk ICD Code: R26.2 - Difficulty in walking, not elsewhere classified Status: Acute (2) Alcohol dependence in controlled environment ICD Code: F10.20 - Alcohol dependence, uncomplicated Status: Acute (3) Facial injury ICD Code: S09.93XA - Unspecified injury of face, initial encounter Status: Acute (4) Fall ICD Code: W19.XXXA - Unspecified fall, initial encounter Status: Acute (5) Hypertension ICD Code: I10 - Essential (primary) hypertension Status: Acute (6) Pelvic fracture ICD Code: S32.9XXA - Fracture of unspecified parts of lumbosacral spine and pelvis, initial encounter for closed fracture Status: Acute (7) C1-C2 subluxation ICD Code: S13.120A - Subluxation of C1/C2 cervical vertebrae, initial encounter Status: Acute (8) C6 cervical fracture ICD Code: S12.500A - Unspecified displaced fracture of sixth cervical vertebra , initial encounter for closed fracture Status: Acute (9) Traumatic brain injury ICD Code: S06.9X9A - Unspecified intracranial injury with loss of consciousness of unspecified duration, initial encounter Status: Acute (10) Nasal fracture ICD Code: S02.2XXA - Fracture of nasal bones, initial encounter for closed fracture Status: Acute (11) Mild neurocognitive disorder ICD Code: G31.84 - Mild cognitive impairment, so stated Status: Acute (12) Intracranial bleed ICD Code: I62.9 - Nontraumatic intracranial hemorrhage, unspecified Status: Acute Assessment and Plan Inability to care for self, unsafe discharge: due to trauma and confusion -PT/OT following. Confusion/Anxiety/agitation: Likely attributed to previous brain hemorrhage and/ or chronic alcohol abuse. -Ammonia level normal. -Continue sitter and bed alarm -Patient has tried to elope multiple times and has acted out violently against staff. Has periods of confusion. I discussed patient with Dr. Nelson, psychiatrist, and we agree patient does NOT have capacity to sign out AMA. If needed patient can be placed in soft restraints for her safety and the safety of staff. -ST eval on 07/26 states cognition varies; needs supervision at discharge. -Continue Xanax 0.5 mg tid prn anxiety -Patient did require a dose of Haldol on 07/25/17. Per RN report, patient was aggressive hitting staff, trying to run away stating she wanted to check on her dogs in [place], [place]. No Haldol use since. -Patient continues to be confused. Multiple traumatic injuries Forehead laceration, subdural hemorrhage, ventricular hemorrhage, nasal fracture, C6 fracture, C1-C2 subluxation, C4 transverse process fracture, right rib fracture, L1 transverse process fracture, right pubic rami fracture Continue c-collar. Patient non-compliant. Takes it off everyday. Specialist no longer following patient, patient will require outpatient follow- up if discharge May use Tylenol as needed. R groin pain. New pelvis x-ray obtained 06/30 is stable. Pain improved. [place] discontinued. Patient has been ambulating without issue. Hypertension: Lisinopril and Amlodipine were discontinued but BP started to increase again. Amlodipine was restarted on 08/07 and increased to 10 mg daily on 08/09. 08/11: BP mildly elevated at 144/94 this morning prior to medication administration. Will continue to monitor and adjust medication regimen as needed. DVT prevention OOB ad rola, sequential compression devices if in bed Discharge Planning Patient requires supervision for safety due to cognitive deficits. 10/2: Per CM patient requires SSI/Medicaid approval . Son has been assisting, but has been resistant which has slowed process. Problem Qualifiers (1) Hypertension: Qualified Codes: I10 - Essential (primary) hypertension Azul Sarkar Aug 11, 2017 08:59
[2017-08-11] MEDS: FLUoxetine HCL 20 MG CAP PO SCH (09:33)
[2017-08-11] MEDS: ALPRAZolam 0.5 MG TAB PO PRN (09:33)
[2017-08-11] MEDS ORDERED: HALOPERIDOL 1 MG TAB PO PRN (15:45)
[2017-08-11 19:00] VITALS: BP 136/89; PULSE 63; RESP 20; TEMP 96.9; O2SAT 95
[2017-08-12 08:00] VITALS: BP 143/92; PULSE 69; RESP 18; TEMP 98; O2SAT 94
--- NOTE | 2017-08-12 09:01 | HHI.PR ---
Subjective Remarks Follow-up for unsafe discharge, cognitive deficits. No acute complaints. Objective Vitals Vital Signs Date Time Temp Pulse Resp B/P (MAP) Pulse Ox O2 Delivery O2 Flow Rate FiO2 08/11/17 19:00 96.9 63 20 136/89 (105) 95 I/O 08/11/17 08/11/17 08/11/17 08/12/17 08/12/17 08/12/17 07:00 15:00 23:00 07:00 15:00 23:00 Intake Total 240 ml 950 ml Balance 240 ml 950 ml Intake Oral 240 ml 950 ml # Voids 3 5 # Bowel Movements 0 0 Objective Remarks GENERAL: Pleasant patient in no apparent distress. CARDIOVASCULAR: Regular rate and rhythm. RESPIRATORY: No accessory muscle use. Clear to auscultation. Breath sounds equal bilaterally. GASTROINTESTINAL: Abdomen soft, nontender, nondistended. NEUROLOGICAL: Awake and alert. Normal speech. PSYCHIATRIC: Normal mood and affect. Calm. Urinary Catheter: No Vascular Central Line Catheter: No A/P Problem List: (1) Inability to walk ICD Code: R26.2 - Difficulty in walking, not elsewhere classified Status: Acute (2) Alcohol dependence in controlled environment ICD Code: F10.20 - Alcohol dependence, uncomplicated Status: Acute (3) Facial injury ICD Code: S09.93XA - Unspecified injury of face, initial encounter Status: Acute (4) Fall ICD Code: W19.XXXA - Unspecified fall, initial encounter Status: Acute (5) Hypertension ICD Code: I10 - Essential (primary) hypertension Status: Acute (6) Pelvic fracture ICD Code: S32.9XXA - Fracture of unspecified parts of lumbosacral spine and pelvis, initial encounter for closed fracture Status: Acute (7) C1-C2 subluxation ICD Code: S13.120A - Subluxation of C1/C2 cervical vertebrae, initial encounter Status: Acute (8) C6 cervical fracture ICD Code: S12.500A - Unspecified displaced fracture of sixth cervical vertebra , initial encounter for closed fracture Status: Acute (9) Traumatic brain injury ICD Code: S06.9X9A - Unspecified intracranial injury with loss of consciousness of unspecified duration, initial encounter Status: Acute (10) Nasal fracture ICD Code: S02.2XXA - Fracture of nasal bones, initial encounter for closed fracture Status: Acute (11) Mild neurocognitive disorder ICD Code: G31.84 - Mild cognitive impairment, so stated Status: Acute (12) Intracranial bleed ICD Code: I62.9 - Nontraumatic intracranial hemorrhage, unspecified Status: Acute Assessment and Plan Inability to care for self, unsafe discharge: due to trauma and confusion -PT/OT following. Confusion/Anxiety/agitation: Likely attributed to previous brain hemorrhage and/ or chronic alcohol abuse. -Ammonia level normal. -Continue sitter and bed alarm -Patient has tried to elope multiple times and has acted out violently against staff. Has periods of confusion. I discussed patient with Dr. Nelson, psychiatrist, and we agree patient does NOT have capacity to sign out AMA. If needed patient can be placed in soft restraints for her safety and the safety of staff. -ST eval on 07/26 states cognition varies; needs supervision at discharge. -Continue Xanax 0.5 mg tid prn anxiety -Patient did require a dose of Haldol on 07/25/17. Per RN report, patient was aggressive hitting staff, trying to run away stating she wanted to check on her dogs in [place], [place]. No Haldol use since. -Patient continues to be confused. Multiple traumatic injuries Forehead laceration, subdural hemorrhage, ventricular hemorrhage, nasal fracture, C6 fracture, C1-C2 subluxation, C4 transverse process fracture, right rib fracture, L1 transverse process fracture, right pubic rami fracture Continue c-collar. Patient non-compliant. Takes it off everyday. Specialist no longer following patient, patient will require outpatient follow- up if discharge May use Tylenol as needed. R groin pain. New pelvis x-ray obtained 06/30 is stable. Pain improved. [place] discontinued. Patient has been ambulating without issue. Hypertension: Lisinopril and Amlodipine were discontinued but BP started to increase again. Amlodipine was restarted on 08/07 and increased to 10 mg daily on 08/09. 08/12: BP mildly elevated this morning prior to medication administration. Will continue to monitor and adjust medication regimen as needed. DVT prevention OOB ad rola, sequential compression devices if in bed Discharge Planning Patient requires supervision for safety due to cognitive deficits. 08/09: Per CM patient requires SSI/Medicaid approval . Son has been assisting, but has been resistant which has slowed process. Problem Qualifiers (1) Hypertension: Qualified Codes: I10 - Essential (primary) hypertension Azul Sarkar Aug 12, 2017 09:01
[2017-08-12] MEDS: ALPRAZolam 0.5 MG TAB PO PRN ×2 (09:03→19:43)
[2017-08-12] MEDS: FLUoxetine HCL 20 MG CAP PO SCH (09:03)
[2017-08-12 20:00] VITALS: BP 140/87; PULSE 67; RESP 20; TEMP 98.7; O2SAT 97
[2017-08-13] MEDS: FLUoxetine HCL 20 MG CAP PO SCH (07:56)
[2017-08-13] MEDS: ALPRAZolam 0.5 MG TAB PO PRN ×3 (07:56→21:50)
[2017-08-13 08:00] VITALS: BP 148/82; PULSE 65; RESP 20; TEMP 97.4; O2SAT 96
--- NOTE | 2017-08-13 11:20 | HHI.PR ---
Subjective Remarks Follow-up for unsafe discharge. No acute complaints. Objective Vitals Vital Signs Date Time Temp Pulse Resp B/P (MAP) Pulse Ox O2 Delivery O2 Flow Rate FiO2 08/13/17 08:00 97.4 65 20 148/82 (104) 96 08/12/17 20:00 98.7 67 20 140/87 (104) 97 I/O 08/12/17 08/12/17 08/12/17 08/13/17 08/13/17 08/13/17 07:00 15:00 23:00 07:00 15:00 23:00 Intake Total 100 ml 120 ml Balance 100 ml 120 ml Intake Oral 100 ml 120 ml # Voids 2 # Bowel Movements 0 Objective Remarks GENERAL: Pleasant patient in no apparent distress. CARDIOVASCULAR: Regular rate and rhythm. RESPIRATORY: No accessory muscle use. Clear to auscultation. Breath sounds equal bilaterally. GASTROINTESTINAL: Abdomen soft, nontender, nondistended. NEUROLOGICAL: Awake and alert. Normal speech. PSYCHIATRIC: Normal mood and affect. Calm. Urinary Catheter: No Vascular Central Line Catheter: No A/P Problem List: (1) Inability to walk ICD Code: R26.2 - Difficulty in walking, not elsewhere classified Status: Acute (2) Alcohol dependence in controlled environment ICD Code: F10.20 - Alcohol dependence, uncomplicated Status: Acute (3) Facial injury ICD Code: S09.93XA - Unspecified injury of face, initial encounter Status: Acute (4) Fall ICD Code: W19.XXXA - Unspecified fall, initial encounter Status: Acute (5) Hypertension ICD Code: I10 - Essential (primary) hypertension Status: Acute (6) Pelvic fracture ICD Code: S32.9XXA - Fracture of unspecified parts of lumbosacral spine and pelvis, initial encounter for closed fracture Status: Acute (7) C1-C2 subluxation ICD Code: S13.120A - Subluxation of C1/C2 cervical vertebrae, initial encounter Status: Acute (8) C6 cervical fracture ICD Code: S12.500A - Unspecified displaced fracture of sixth cervical vertebra , initial encounter for closed fracture Status: Acute (9) Traumatic brain injury ICD Code: S06.9X9A - Unspecified intracranial injury with loss of consciousness of unspecified duration, initial encounter Status: Acute (10) Nasal fracture ICD Code: S02.2XXA - Fracture of nasal bones, initial encounter for closed fracture Status: Acute (11) Mild neurocognitive disorder ICD Code: G31.84 - Mild cognitive impairment, so stated Status: Acute (12) Intracranial bleed ICD Code: I62.9 - Nontraumatic intracranial hemorrhage, unspecified Status: Acute Assessment and Plan Inability to care for self, unsafe discharge: due to trauma and confusion -PT/OT following. Confusion/Anxiety/agitation: Likely attributed to previous brain hemorrhage and/ or chronic alcohol abuse. -Ammonia level normal. -Continue sitter and bed alarm -Patient has tried to elope multiple times and has acted out violently against staff. Has periods of confusion. I discussed patient with Dr. Nelson, psychiatrist, and we agree patient does NOT have capacity to sign out AMA. If needed patient can be placed in soft restraints for her safety and the safety of staff. -ST eval on 07/26 states cognition varies; needs supervision at discharge. -Continue Xanax 0.5 mg tid prn anxiety -Patient did require a dose of Haldol on 07/25/17. Per RN report, patient was aggressive hitting staff, trying to run away stating she wanted to check on her dogs in [place], [place]. No Haldol use since. -Patient continues to be confused. Multiple traumatic injuries Forehead laceration, subdural hemorrhage, ventricular hemorrhage, nasal fracture, C6 fracture, C1-C2 subluxation, C4 transverse process fracture, right rib fracture, L1 transverse process fracture, right pubic rami fracture Continue c-collar. Patient non-compliant. Takes it off everyday. Specialist no longer following patient, patient will require outpatient follow- up if discharge May use Tylenol as needed. R groin pain. New pelvis x-ray obtained 06/30 is stable. Pain improved. [place] discontinued. Patient has been ambulating without issue. Hypertension: Lisinopril and Amlodipine were discontinued but BP started to increase again. Amlodipine was restarted on 08/07 and increased to 10 mg daily on 08/09. 08/13: BP mildly elevated this morning around time of medication administration. Will continue to monitor and adjust medication regimen as needed. DVT prevention OOB ad rola, sequential compression devices if in bed Discharge Planning Patient requires supervision for safety due to cognitive deficits. 08/09: Per CM patient requires SSI/Medicaid approval . Son has been assisting, but has been resistant which has slowed process. Problem Qualifiers (1) Hypertension: Qualified Codes: I10 - Essential (primary) hypertension Azul Sarkar Aug 13, 2017 11:20
[2017-08-13 20:00] VITALS: BP 131/96; PULSE 71; RESP 20; TEMP 97.4; O2SAT 94
[2017-08-14 08:00] VITALS: BP 113/79; PULSE 67; RESP 18; TEMP 98.3; O2SAT 97
[2017-08-14] MEDS: FLUoxetine HCL 20 MG CAP PO SCH (08:40)
[2017-08-14] MEDS: ALPRAZolam 0.5 MG TAB PO PRN ×2 (08:40→14:43)
--- NOTE | 2017-08-14 10:51 | HHI.PR ---
Subjective Remarks Follow-up for cognitive deficits, unsafe discharge. Patient asked me if she can go outside and states she will behave but I was informed by an RN that patient has attempted to run away several times when outside and later the patient states she wants to go see her aunt who lives down the street and when I told her her aunt is not here she becomes tearful. Objective Vitals Vital Signs Date Time Temp Pulse Resp B/P (MAP) Pulse Ox O2 Delivery O2 Flow Rate FiO2 08/14/17 08:00 98.3 67 18 113/79 (90) 97 08/13/17 20:00 97.4 71 20 131/96 (108) 94 I/O 08/13/17 08/13/17 08/13/17 08/14/17 08/14/17 08/14/17 07:00 15:00 23:00 07:00 15:00 23:00 Intake Total 120 ml 810 ml 240 ml 100 ml Balance 120 ml 810 ml 240 ml 100 ml Intake Oral 120 ml 810 ml 240 ml 100 ml # Voids 2 3 3 2 # Bowel Movements 0 1 Objective Remarks GENERAL: Pleasant patient in no apparent distress. CARDIOVASCULAR: Regular rate and rhythm. RESPIRATORY: No accessory muscle use. Clear to auscultation. Breath sounds equal bilaterally. GASTROINTESTINAL: Abdomen soft, nontender, nondistended. NEUROLOGICAL: Awake and alert. Normal speech. PSYCHIATRIC: Cooperative. Becomes tearful when told she cannot go outside to see her aunt. Urinary Catheter: No Vascular Central Line Catheter: No A/P Problem List: (1) Inability to walk ICD Code: R26.2 - Difficulty in walking, not elsewhere classified Status: Acute (2) Alcohol dependence in controlled environment ICD Code: F10.20 - Alcohol dependence, uncomplicated Status: Acute (3) Facial injury ICD Code: S09.93XA - Unspecified injury of face, initial encounter Status: Acute (4) Fall ICD Code: W19.XXXA - Unspecified fall, initial encounter Status: Acute (5) Hypertension ICD Code: I10 - Essential (primary) hypertension Status: Acute (6) Pelvic fracture ICD Code: S32.9XXA - Fracture of unspecified parts of lumbosacral spine and pelvis, initial encounter for closed fracture Status: Acute (7) C1-C2 subluxation ICD Code: S13.120A - Subluxation of C1/C2 cervical vertebrae, initial encounter Status: Acute (8) C6 cervical fracture ICD Code: S12.500A - Unspecified displaced fracture of sixth cervical vertebra , initial encounter for closed fracture Status: Acute (9) Traumatic brain injury ICD Code: S06.9X9A - Unspecified intracranial injury with loss of consciousness of unspecified duration, initial encounter Status: Acute (10) Nasal fracture ICD Code: S02.2XXA - Fracture of nasal bones, initial encounter for closed fracture Status: Acute (11) Mild neurocognitive disorder ICD Code: G31.84 - Mild cognitive impairment, so stated Status: Acute (12) Intracranial bleed ICD Code: I62.9 - Nontraumatic intracranial hemorrhage, unspecified Status: Acute Assessment and Plan Inability to care for self, unsafe discharge: due to trauma and confusion -PT/OT following. Confusion/Anxiety/agitation: Likely attributed to previous brain hemorrhage and/ or chronic alcohol abuse. -Ammonia level normal. -Continue sitter and bed alarm -Patient has tried to elope multiple times and has acted out violently against staff. Has periods of confusion. I discussed patient with Dr. Nelson, psychiatrist, and we agree patient does NOT have capacity to sign out AMA. If needed patient can be placed in soft restraints for her safety and the safety of staff. -ST eval on 07/26 states cognition varies; needs supervision at discharge. -Continue Xanax 0.5 mg tid prn anxiety -Patient did require a dose of Haldol on 07/25/17. Per RN report, patient was aggressive hitting staff, trying to run away stating she wanted to check on her dogs in [place], [place]. No Haldol use since. -Patient continues to be confused. Multiple traumatic injuries Forehead laceration, subdural hemorrhage, ventricular hemorrhage, nasal fracture, C6 fracture, C1-C2 subluxation, C4 transverse process fracture, right rib fracture, L1 transverse process fracture, right pubic rami fracture Continue c-collar. Patient non-compliant. Takes it off everyday. Specialist no longer following patient, patient will require outpatient follow- up if discharge May use Tylenol as needed. R groin pain. New pelvis x-ray obtained 06/30 is stable. Pain improved. [place] discontinued. Patient has been ambulating without issue. Hypertension: Stable Lisinopril and Amlodipine were discontinued but BP started to increase again. Amlodipine was restarted on 08/07 and increased to 10 mg daily on 08/09. Continue. DVT prevention OOB ad rola, sequential compression devices if in bed Discharge Planning Patient requires supervision for safety due to cognitive deficits. 08/09: Per CM patient requires SSI/Medicaid approval . Son has been assisting, but has been resistant which has slowed process. Problem Qualifiers (1) Hypertension: Qualified Codes: I10 - Essential (primary) hypertension Azul Sarkar Aug 14, 2017 10:51
[2017-08-14] MEDS ORDERED: HALOPERIDOL LACTATE 5 MG/ML AMP IM STA (14:53)
[2017-08-14] MEDS ORDERED: HALOPERIDOL LACTATE 5 MG/ML AMP IM PRN (15:00)
[2017-08-14 20:00] VITALS: BP 118/87; PULSE 68; RESP 20; TEMP 97.2; O2SAT 95
[2017-08-15 08:00] VITALS: BP 126/72; PULSE 67; RESP 18; TEMP 98; O2SAT 98
[2017-08-15] MEDS: FLUoxetine HCL 20 MG CAP PO SCH (08:41)
[2017-08-15] MEDS: ALPRAZolam 0.5 MG TAB PO PRN ×2 (08:48→21:05)
--- NOTE | 2017-08-15 13:38 | HHI.PR ---
Subjective Remarks Follow-up for cognitive deficits, unsafe discharge. Patient states, "I'm supposed to work today". 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 Objective Vitals Vital Signs Date Time Temp Pulse Resp B/P (MAP) Pulse Ox O2 Delivery O2 Flow Rate FiO2 08/15/17 08:00 98.0 67 18 126/72 (90) 98 08/14/17 20:00 97.2 68 20 118/87 (97) 95 I/O 08/14/17 08/14/17 08/14/17 08/15/17 08/15/17 08/15/17 07:00 15:00 23:00 07:00 15:00 23:00 Intake Total 240 ml 100 ml 240 ml 360 ml Balance 240 ml 100 ml 240 ml 360 ml Intake Oral 240 ml 100 ml 240 ml 360 ml # Voids 2 1 Objective Remarks GENERAL: Pleasant patient in no apparent distress. CARDIOVASCULAR: Regular rate and rhythm. RESPIRATORY: No accessory muscle use. Clear to auscultation. Breath sounds equal bilaterally. NEUROLOGICAL: Awake and alert. Normal speech. PSYCHIATRIC: Cooperative. Calm mood and affect. Urinary Catheter: No Vascular Central Line Catheter: No A/P Problem List: (1) Inability to walk ICD Code: R26.2 - Difficulty in walking, not elsewhere classified Status: Acute (2) Alcohol dependence in controlled environment ICD Code: F10.20 - Alcohol dependence, uncomplicated Status: Acute (3) Facial injury ICD Code: S09.93XA - Unspecified injury of face, initial encounter Status: Acute (4) Fall ICD Code: W19.XXXA - Unspecified fall, initial encounter Status: Acute (5) Hypertension ICD Code: I10 - Essential (primary) hypertension Status: Acute (6) Pelvic fracture ICD Code: S32.9XXA - Fracture of unspecified parts of lumbosacral spine and pelvis, initial encounter for closed fracture Status: Acute (7) C1-C2 subluxation ICD Code: S13.120A - Subluxation of C1/C2 cervical vertebrae, initial encounter Status: Acute (8) C6 cervical fracture ICD Code: S12.500A - Unspecified displaced fracture of sixth cervical vertebra , initial encounter for closed fracture Status: Acute (9) Traumatic brain injury ICD Code: S06.9X9A - Unspecified intracranial injury with loss of consciousness of unspecified duration, initial encounter Status: Acute (10) Nasal fracture ICD Code: S02.2XXA - Fracture of nasal bones, initial encounter for closed fracture Status: Acute (11) Mild neurocognitive disorder ICD Code: G31.84 - Mild cognitive impairment, so stated Status: Acute (12) Intracranial bleed ICD Code: I62.9 - Nontraumatic intracranial hemorrhage, unspecified Status: Acute Assessment and Plan Inability to care for self, unsafe discharge: due to trauma and confusion -PT/OT following. Confusion/Anxiety/agitation: Likely attributed to previous brain hemorrhage and/ or chronic alcohol abuse. -Ammonia level normal. -Continue sitter and bed alarm -Patient has tried to elope multiple times and has acted out violently against staff. Has periods of confusion. I discussed patient with Dr. Nelson, psychiatrist, and we agree patient does NOT have capacity to sign out AMA. If needed patient can be placed in soft restraints for her safety and the safety of staff. -ST eval on 07/26 states cognition varies; needs supervision at discharge. -Continue Xanax 0.5 mg tid prn anxiety -Patient did require a dose of Haldol on 07/25/17. Per RN report, patient was aggressive hitting staff, trying to run away stating she wanted to check on her dogs in [place], [place]. No Haldol use since. -Patient continues to be confused. Multiple traumatic injuries Forehead laceration, subdural hemorrhage, ventricular hemorrhage, nasal fracture, C6 fracture, C1-C2 subluxation, C4 transverse process fracture, right rib fracture, L1 transverse process fracture, right pubic rami fracture Continue c-collar. Patient non-compliant. Takes it off everyday. Specialist no longer following patient, patient will require outpatient follow- up if discharge May use Tylenol as needed. R groin pain. New pelvis x-ray obtained 06/30 is stable. Pain improved. [place] discontinued. -Patient has been ambulating without issue. Hypertension: Stable Lisinopril and Amlodipine were discontinued but BP started to increase again. Amlodipine was restarted on 08/07 and increased to 10 mg daily on 08/09. Continue. DVT prevention OOB ad rola, sequential compression devices if in bed Discharge Planning Patient requires supervision for safety due to cognitive deficits. 08/09: Per CM patient requires SSI/Medicaid approval . Son has been assisting, but has been resistant which has slowed process. Problem Qualifiers (1) Hypertension: Qualified Codes: I10 - Essential (primary) hypertension Azul Sarkar Aug 15, 2017 13:38
[2017-08-15] MEDS: ACETAMINOPHEN 325 MG TAB PO PRN (21:04)
[2017-08-15 21:41] VITALS: BP 139/97; PULSE 72; RESP 18; TEMP 98.3; O2SAT 95
[2017-08-16] MEDS: ALPRAZolam 0.5 MG TAB PO PRN ×2 (07:03→14:44)
[2017-08-16] MEDS: ACETAMINOPHEN 325 MG TAB PO PRN (07:04)
[2017-08-16] MEDS: FLUoxetine HCL 20 MG CAP PO SCH (07:08)
[2017-08-16 08:00] VITALS: BP 148/89; PULSE 62; RESP 17; TEMP 97.8; O2SAT 99
--- NOTE | 2017-08-16 10:47 | HHI.PR ---
Subjective Remarks Follow up for cognitive deficits, unsafe discharge. No acute complaints. Objective Vitals Vital Signs Date Time Temp Pulse Resp B/P (MAP) Pulse Ox O2 Delivery O2 Flow Rate FiO2 08/16/17 09:01 19 08/16/17 08:00 97.8 62 17 148/89 (108) 99 08/15/17 21:41 98.3 72 18 139/97 (111) 95 I/O 08/15/17 08/15/17 08/15/17 08/16/17 08/16/17 08/16/17 07:00 15:00 23:00 07:00 15:00 23:00 Intake Total 240 ml 360 ml 600 ml Balance 240 ml 360 ml 600 ml Intake Oral 240 ml 360 ml 600 ml # Voids 1 4 3 # Bowel Movements 0 Objective Remarks GENERAL: Pleasant patient in no apparent distress sitting on side of bed eating breakfast. CARDIOVASCULAR: Regular rate and rhythm. RESPIRATORY: No accessory muscle use. Clear to auscultation. Breath sounds equal bilaterally. GASTROINTESTINAL: Abdomen soft, non-tender, non-distended. NEUROLOGICAL: Awake and alert. Normal speech. PSYCHIATRIC: Cooperative. Calm mood and affect. Urinary Catheter: No Vascular Central Line Catheter: No A/P Problem List: (1) Inability to walk ICD Code: R26.2 - Difficulty in walking, not elsewhere classified Status: Acute (2) Alcohol dependence in controlled environment ICD Code: F10.20 - Alcohol dependence, uncomplicated Status: Acute (3) Facial injury ICD Code: S09.93XA - Unspecified injury of face, initial encounter Status: Acute (4) Fall ICD Code: W19.XXXA - Unspecified fall, initial encounter Status: Acute (5) Hypertension ICD Code: I10 - Essential (primary) hypertension Status: Acute (6) Pelvic fracture ICD Code: S32.9XXA - Fracture of unspecified parts of lumbosacral spine and pelvis, initial encounter for closed fracture Status: Acute (7) C1-C2 subluxation ICD Code: S13.120A - Subluxation of C1/C2 cervical vertebrae, initial encounter Status: Acute (8) C6 cervical fracture ICD Code: S12.500A - Unspecified displaced fracture of sixth cervical vertebra , initial encounter for closed fracture Status: Acute (9) Traumatic brain injury ICD Code: S06.9X9A - Unspecified intracranial injury with loss of consciousness of unspecified duration, initial encounter Status: Acute (10) Nasal fracture ICD Code: S02.2XXA - Fracture of nasal bones, initial encounter for closed fracture Status: Acute (11) Mild neurocognitive disorder ICD Code: G31.84 - Mild cognitive impairment, so stated Status: Acute (12) Intracranial bleed ICD Code: I62.9 - Nontraumatic intracranial hemorrhage, unspecified Status: Acute Assessment and Plan Inability to care for self, unsafe discharge: due to trauma and confusion -PT/OT following. Confusion/Anxiety/agitation: Likely attributed to previous brain hemorrhage and/ or chronic alcohol abuse. -Ammonia level normal. -Continue sitter and bed alarm -Patient has tried to elope multiple times and has acted out violently against staff. Has periods of confusion. I discussed patient with Dr. Nelson, psychiatrist, and we agree patient does NOT have capacity to sign out AMA. If needed patient can be placed in soft restraints for her safety and the safety of staff. -ST eval on 07/26 states cognition varies; needs supervision at discharge. -Continue Xanax 0.5 mg tid prn anxiety -Patient did require a dose of Haldol on 07/25/17. Per RN report, patient was aggressive hitting staff, trying to run away stating she wanted to check on her dogs in [place], [place]. No Haldol use since. -Patient continues to be confused. Multiple traumatic injuries Forehead laceration, subdural hemorrhage, ventricular hemorrhage, nasal fracture, C6 fracture, C1-C2 subluxation, C4 transverse process fracture, right rib fracture, L1 transverse process fracture, right pubic rami fracture Continue c-collar. Patient non-compliant. Takes it off everyday. Specialist no longer following patient, patient will require outpatient follow- up if discharge May use Tylenol as needed. R groin pain. New pelvis x-ray obtained 06/30 is stable. Pain improved. [place] discontinued. -Patient has been ambulating without issue. Hypertension: Lisinopril and Amlodipine were discontinued but BP started to increase again. Amlodipine was restarted on 08/07 and increased to 10 mg daily on 08/09. Continue. 08/16: BP mildly elevated this morning. Monitor and adjust medication as needed. DVT prevention OOB ad rola, sequential compression devices if in bed Discharge Planning Patient requires supervision for safety due to cognitive deficits. 08/09: Per CM patient requires SSI/Medicaid approval . Son has been assisting, but has been resistant which has slowed process. Problem Qualifiers (1) Hypertension: Qualified Codes: I10 - Essential (primary) hypertension Azul Sarkar Aug 16, 2017 10:47
[2017-08-17 08:00] VITALS: BP 131/79; PULSE 68; RESP 18; TEMP 97.6; O2SAT 93
[2017-08-17] MEDS: FLUoxetine HCL 20 MG CAP PO SCH (08:01)
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
--- NOTE | 2017-08-17 15:17 | HHI.PYPN ---
Subjective Remarks Patient was seen today for psychiatric reevaluation, case was discussed with nursing charge was states that patient has been on and off agitated, but usually redirectable. Today has been doing actually very good. Patient is found watching TV, she is calm, cooperative and pleasant. She recognized me from previous encounters. Reports good mood, she says that today she feels particularly motivated and energetic, denies hopelessness, denies helplessness, denies worthlessness, dystonia, lack of sleep or appetite. She denies suicidal and homicidal ideation, she denies visual and auditory hallucinations. Patient is logical, coherent and relevant, no paranoia, no delusions, no agitation or hostility present. In terms of cognition, she is fully oriented 3, no fluctuation of consciousness, no attention deficit. Folstein MMS was performed: : Patient has 10/10 in orientation. 3/3 registration. 3 in recall. / in attention and calculation. 3/3 language. 6 executive function. I also performed lane trl tests, she did without mistake. Patient also completed perfectly clock drawing. Review of Systems Other No somatic complaints Mental Status Examination Appearance: Appropriate Consciousness: Alert Orientation: x4, Person, Place Motor Activity: Normal gait Speech: Unremarkable Language: Adequate Fund of Knowledge: Adequate Attention and Concentration: Adequate Memory: Unremarkable Mood: Appropriate Affect: Appropriate Thought Process & Associations: Intact Thought Content: Appropriate Hallucination Type: None Delusion Type: None Suicidal Ideation: No Suicidal Plan: No Suicidal Intention: No Homicidal Ideation: No Homicidal Plan: No Homicidal Intention: No Insight: Adequate Judgment: Adequate Results Vitals/IOs Vital Signs Date Time Temp Pulse Resp B/P (MAP) Pulse Ox O2 Delivery O2 Flow Rate FiO2 08/17/17 08:00 97.6 68 18 131/79 (96) 93 Intake and Output 08/17/17 08/17/17 08/18/17 08:00 16:00 00:00 Intake Total 200 ml Balance 200 ml Assessment & Plan Problem List: (1) Major neurocognitive disorder due to traumatic brain injury without behavioral disturbance ICD Codes: S06.9X9S - Unspecified intracranial injury with loss of consciousness of unspecified duration, sequela; F02.80 - Dementia in other diseases classified elsewhere without behavioral disturbance Assessment & Plan: At the moment of the psychiatric reevaluation the patient does not present any acute, concerning for significant neuropsychiatric symptoms , such as depression, anxiety, vincent or psychosis, agitation or aggressive behavior, that requires an immediate psychiatric attention. Patient denies suicidal and homicidal ideation, patient denies visual and auditory hallucinations. Objective symptoms of paranoia, delusions, flight of ideas, delusions of reference, thought insertion are present. Patient is oriented 3, no fluctuation of consciousness, no attention deficit. MMS,clock drawing, lane trl tests, performed as mentioned above, and no gross cognitive impairment are present. Patient has reportedly episodic agitation, disorganized and aggressive behavior which is most probably that was full of neurocognitive disorder due to traumatic brain injury. Patient might benefit of a mood stabilizer for behavioral stabilization. Antiepileptics: Depakote/ carbamazepine and propranolol are prefer for mood stabilization in TBI over antipsychotics or benzodiazepines. Depakote 500 mg twice a day or carbamazepine 200 mg 3 times a day could be a good option to discuss. Extensive support, motivation and psychoeducation provided. (2) Adjustment disorder with depressed mood ICD Codes: F43.21 - Adjustment disorder with depressed mood Assessment & Plan Estimated LOS: days Justification for Cont. Inpt. Patient does not meet criteria for psychiatric admission at this moment. Nilton Nelson MD Aug 17, 2017 15:17
[2017-08-17 20:00] VITALS: BP 128/80; PULSE 73; RESP 20; TEMP 98.2; O2SAT 91
[2017-08-17] MEDS: VALPROIC ACID 250 MG CAP PO SCH (21:23)
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
[2017-08-18 08:00] VITALS: BP 139/89; PULSE 69; RESP 20; TEMP 96.2; O2SAT 96
[2017-08-18] MEDS: FLUoxetine HCL 20 MG CAP PO SCH (08:23)
[2017-08-18] MEDS: VALPROIC ACID 250 MG CAP PO SCH ×2 (08:23→20:57)
[2017-08-18 19:00] VITALS: BP 119/74; PULSE 69; RESP 20; TEMP 97; O2SAT 93
[2017-08-18] MEDS: ALPRAZolam 0.5 MG TAB PO PRN (21:03)
[2017-08-18] MEDS: ACETAMINOPHEN 325 MG TAB PO PRN (21:05)
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
[2017-08-19 07:54] VITALS: BP 128/96; PULSE 70; RESP 16; TEMP 97.6; O2SAT 94
[2017-08-19] MEDS: VALPROIC ACID 250 MG CAP PO SCH ×2 (09:10→21:14)
[2017-08-19] MEDS: FLUoxetine HCL 20 MG CAP PO SCH (09:11)
[2017-08-19] MEDS: ACETAMINOPHEN 325 MG TAB PO PRN (09:12)
[2017-08-19 20:00] VITALS: BP 144/102; PULSE 77; RESP 18; TEMP 96.8; O2SAT 94
--- NOTE | 2017-08-20 07:42 | HHI.PR ---
Subjective Remarks Patient seen and examined today for follow-up on a safe discharge due to cognition. Patient resting carefully. Denies any new complaints. No change in clinical status. Awaiting case management discharge planning. Objective Vitals Vital Signs Date Time Temp Pulse Resp B/P (MAP) Pulse Ox O2 Delivery O2 Flow Rate FiO2 08/19/17 20:00 96.8 77 18 144/102 (116) 94 08/19/17 10:12 14 08/19/17 07:54 97.6 70 16 128/96 (107) 94 I/O 08/19/17 08/19/17 08/19/17 08/20/17 08/20/17 08/20/17 06:59 14:59 22:59 06:59 14:59 22:59 Intake Total 960 ml 450 ml Balance 960 ml 450 ml Intake Oral 960 ml 450 ml # Voids 4 3 # Bowel Movements 1 1 Objective Remarks GENERAL: Well-developed, well-nourished, in no acute distress. alert and orientated waxes and wanes daily HEENT: Head is normocephalic without any lesions or masses noted. Facial features are symmetric. Eyes: Extraocular muscles are intact. Conjunctivae were clear. NECK: C-collar in on table at bedside CARDIAC: Regular rhythm, regular rate. S1/S2 are heard. No murmurs gallops or rubs. LUNGS: Clear to auscultation bilaterally. No wheeze, rhonchi or rales. No use of accessory muscles on inspiration or expiration. ABDOMEN: Soft, nontender. Nondistended. Bowel sounds heard in all 4 quadrants. No organomegaly or masses. Negative rebound, negative guarding EXTREMITIES: No edema, pulses are equal bilaterally. No cyanosis or clubbing NEUROLOGY: Mood and affect appear appropriate. Cranial nerves II through XII grossly intact moving all extremities, speech is clear Urinary Catheter: No Vascular Central Line Catheter: No A/P Assessment and Plan Inability to care for self, unsafe discharge due to cognition Initially he was indicated patient cannot walk, patient is walking at this time, PT and OT recommending supervision at home for safety Speech therapy following the patient intermittently for cognitive evaluations. 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 MIni mental state 28/30, recommended avoid antipsychotics for benzodiazepine. Recommending Depakote or carbamazepine Patient is medically stable for discharge, however due to underlying psychiatric/cognition patient is unsafe discharge until arrangements made by case management Case management for discharge planning Neuropsychiatry evaluated the patient recommended patient may improve with treatment Continue Prozac 40 mg daily, Xanax 0.5 mg 3 times daily as needed Depakene 500 mg twice daily Multiple traumatic injuries, Patient laceration, subdural hemorrhage, ventricular hemorrhage, nasal fracture, C6 fracture, C1-C2 subluxation, C4 transverse process fracture, right rib fracture, L1 transverse process fracture, right pubic rami fracture Continue c-collar this time, however patient does not wear Specialist no longer following patient, patient will require outpatient follow-up if discharge Hypertension, Amlodipine 10 mg daily DVT prevention Patient ambulating Sequential compression devices while in bed Records reviewed. Awaiting case management for discharge planning, No change in treatment plan. Discharge Planning Case management for discharge planning Conrado Mariee Aug 20, 2017 07:42
[2017-08-20 08:00] VITALS: BP 134/84; PULSE 65; RESP 16; TEMP 96; O2SAT 94
[2017-08-20] MEDS: VALPROIC ACID 250 MG CAP PO SCH ×2 (09:09→20:23)
[2017-08-20] MEDS: FLUoxetine HCL 20 MG CAP PO SCH (09:09)
[2017-08-20] MEDS: ACETAMINOPHEN 325 MG TAB PO PRN (09:12)
[2017-08-20 20:00] VITALS: BP 167/89; PULSE 76; RESP 20; TEMP 97.3; O2SAT 97
--- NOTE | 2017-08-21 07:44 | HHI.PR ---
Subjective Remarks Patient seen and examined today for follow-up on a safe discharge due to cognition. Objective Vitals Vital Signs Date Time Temp Pulse Resp B/P (MAP) Pulse Ox O2 Delivery O2 Flow Rate FiO2 08/20/17 20:00 97.3 76 20 167/89 (115) 97 08/20/17 10:12 18 08/20/17 08:00 96.0 65 16 134/84 (101) 94 I/O 08/20/17 08/20/17 08/20/17 08/21/17 08/21/17 08/21/17 07:00 15:00 23:00 07:00 15:00 23:00 Intake Total 500 ml 720 ml 480 ml Balance 500 ml 720 ml 480 ml Intake Oral 500 ml 720 ml 480 ml # Voids 3 5 2 # Bowel Movements 1 1 Objective Remarks GENERAL: Well-developed, well-nourished, in no acute distress. alert and orientated waxes and wanes daily HEENT: Head is normocephalic without any lesions or masses noted. Facial features are symmetric. Eyes: Extraocular muscles are intact. Conjunctivae were clear. NECK: C-collar in on table at bedside CARDIAC: Regular rhythm, regular rate. S1/S2 are heard. No murmurs gallops or rubs. LUNGS: Clear to auscultation bilaterally. No wheeze, rhonchi or rales. No use of accessory muscles on inspiration or expiration. ABDOMEN: Soft, nontender. Nondistended. Bowel sounds heard in all 4 quadrants. No organomegaly or masses. Negative rebound, negative guarding EXTREMITIES: No edema, pulses are equal bilaterally. No cyanosis or clubbing NEUROLOGY: Mood and affect appear appropriate. Cranial nerves II through XII grossly intact moving all extremities, speech is clear Urinary Catheter: No Vascular Central Line Catheter: No A/P Assessment and Plan Inability to care for self, unsafe discharge due to cognition Initially he was indicated patient cannot walk, patient is walking at this time, PT and OT recommending supervision at home for safety Speech therapy following the patient intermittently for cognitive evaluations. 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 MIni mental state 28/30, recommended avoid antipsychotics for benzodiazepine. Recommending Depakote or carbamazepine Patient is medically stable for discharge, however due to underlying psychiatric/cognition patient is unsafe discharge until arrangements made by case management Case management for discharge planning Neuropsychiatry evaluated the patient recommended patient may improve with treatment, however indicates avoid benzodiazepines and antipsychotics Continue Prozac 40 mg daily Depakene 500 mg twice daily Multiple traumatic injuries, Patient laceration, subdural hemorrhage, ventricular hemorrhage, nasal fracture, C6 fracture, C1-C2 subluxation, C4 transverse process fracture, right rib fracture, L1 transverse process fracture, right pubic rami fracture Continue c-collar this time, however patient does not wear Specialist no longer following patient, patient will require outpatient follow-up if discharge Hypertension, Amlodipine 10 mg daily Add lisinopril 10 mg daily DVT prevention Patient ambulating Sequential compression devices while in bed Discharge Planning Case management for discharge planning Conrado Mariee Aug 21, 2017 07:44
[2017-08-21 08:22] VITALS: BP 147/82; PULSE 76; RESP 16; TEMP 97; O2SAT 94
[2017-08-21] MEDS: LISINOPRIL 10 MG TAB PO SCH (08:43)
[2017-08-21] MEDS: VALPROIC ACID 250 MG CAP PO SCH ×2 (08:43→20:28)
[2017-08-21] MEDS: FLUoxetine HCL 20 MG CAP PO SCH (08:44)
[2017-08-21 19:00] VITALS: BP 151/95; PULSE 80; RESP 16; TEMP 98.6; O2SAT 97
[2017-08-22] MEDS: LISINOPRIL 10 MG TAB PO SCH ×2 (08:33→20:28)
[2017-08-22] MEDS: FLUoxetine HCL 20 MG CAP PO SCH (08:33)
[2017-08-22] MEDS: VALPROIC ACID 250 MG CAP PO SCH ×2 (08:33→20:28)
[2017-08-22 09:03] VITALS: BP 131/84; PULSE 84; RESP 16; TEMP 97; O2SAT 98
--- NOTE | 2017-08-22 12:14 | HHI.PR ---
Subjective Remarks Patient seen and examined today for follow-up on unsafe discharge due to cognition. Patient states that she has yet to hospital if she has a meeting with her employer. Denies any complaints. Awaiting case management discharge planning Objective Vitals Vital Signs Date Time Temp Pulse Resp B/P (MAP) Pulse Ox O2 Delivery O2 Flow Rate FiO2 08/22/17 09:03 97.0 84 16 131/84 (100) 98 08/21/17 19:00 98.6 80 16 151/95 (113) 97 I/O 08/21/17 08/21/17 08/21/17 08/22/17 08/22/17 08/22/17 07:00 15:00 23:00 07:00 15:00 23:00 Intake Total 480 ml 1500 ml 240 ml Balance 480 ml 1500 ml 240 ml Intake Oral 480 ml 1500 ml 240 ml # Voids 3 3 1 Objective Remarks GENERAL: Well-developed, well-nourished, in no acute distress. alert and orientated waxes and wanes daily HEENT: Head is normocephalic without any lesions or masses noted. Facial features are symmetric. Eyes: Extraocular muscles are intact. Conjunctivae were clear. NECK: C-collar in on table at bedside CARDIAC: Regular rhythm, regular rate. S1/S2 are heard. No murmurs gallops or rubs. LUNGS: Clear to auscultation bilaterally. No wheeze, rhonchi or rales. No use of accessory muscles on inspiration or expiration. ABDOMEN: Soft, nontender. Nondistended. Bowel sounds heard in all 4 quadrants. No organomegaly or masses. Negative rebound, negative guarding EXTREMITIES: No edema, pulses are equal bilaterally. No cyanosis or clubbing NEUROLOGY: Mood and affect appear appropriate. Cranial nerves II through XII grossly intact moving all extremities, speech is clear Urinary Catheter: No Vascular Central Line Catheter: No A/P Assessment and Plan Inability to care for self, unsafe discharge due to cognition Initially he was indicated patient cannot walk, patient is walking at this time, PT and OT recommending supervision at home for safety Speech therapy following the patient intermittently for cognitive evaluations. 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 MIni mental state 28/30, recommended avoid antipsychotics for benzodiazepine. Recommending Depakote or carbamazepine Patient is medically stable for discharge, however due to underlying psychiatric/cognition patient is unsafe discharge until arrangements made by case management Case management for discharge planning Neuropsychiatry evaluated the patient recommended patient may improve with treatment, however indicates avoid benzodiazepines and antipsychotics Continue Prozac 40 mg daily Depakene 500 mg twice daily Multiple traumatic injuries, Patient laceration, subdural hemorrhage, ventricular hemorrhage, nasal fracture, C6 fracture, C1-C2 subluxation, C4 transverse process fracture, right rib fracture, L1 transverse process fracture, right pubic rami fracture Continue c-collar this time, however patient does not wear Specialist no longer following patient, patient will require outpatient follow-up if discharge Hypertension, worsening again, likely secondary to discontinuation of Xanax Amlodipine 10 mg daily Lisinopril 10 mg twice daily DVT prevention Patient ambulating Sequential compression devices while in bed Discharge Planning Case management for discharge planning Conrado Mariee Aug 22, 2017 12:14
[2017-08-22 19:00] VITALS: BP 134/75; PULSE 75; RESP 16; TEMP 97.6; O2SAT 98
[2017-08-22] MEDS ORDERED: diphenhydrAMINE HCL 50 MG CAP PO ONE (20:00)
[2017-08-23 08:00] VITALS: BP 123/70; PULSE 63; RESP 16; TEMP 97.9; O2SAT 96
[2017-08-23] MEDS: VALPROIC ACID 250 MG CAP PO SCH ×2 (08:22→20:04)
[2017-08-23] MEDS: FLUoxetine HCL 20 MG CAP PO SCH (08:22)
[2017-08-23] MEDS: LISINOPRIL 10 MG TAB PO SCH ×2 (08:23→20:05)
--- NOTE | 2017-08-23 08:31 | HHI.PR ---
Subjective Remarks Patient examined today for follow-up on unsafe discharge due to cognition. Blood pressure improved with increase of medication. Continue monitor blood pressure. Objective Vitals Vital Signs Date Time Temp Pulse Resp B/P (MAP) Pulse Ox O2 Delivery O2 Flow Rate FiO2 08/22/17 19:00 97.6 75 16 134/75 (94) 98 08/22/17 09:03 97.0 84 16 131/84 (100) 98 I/O 08/22/17 08/22/17 08/22/17 08/23/17 08/23/17 08/23/17 06:59 14:59 22:59 06:59 14:59 22:59 Intake Total 240 ml 1000 ml 240 ml Balance 240 ml 1000 ml 240 ml Intake Oral 240 ml 1000 ml 240 ml # Voids 1 7 1 # Bowel Movements 1 Objective Remarks GENERAL: Well-developed, well-nourished, in no acute distress. alert and orientated waxes and wanes daily HEENT: Head is normocephalic without any lesions or masses noted. Facial features are symmetric. Eyes: Extraocular muscles are intact. Conjunctivae were clear. NECK: C-collar in on table at bedside CARDIAC: Regular rhythm, regular rate. S1/S2 are heard. No murmurs gallops or rubs. LUNGS: Clear to auscultation bilaterally. No wheeze, rhonchi or rales. No use of accessory muscles on inspiration or expiration. ABDOMEN: Soft, nontender. Nondistended. Bowel sounds heard in all 4 quadrants. No organomegaly or masses. Negative rebound, negative guarding EXTREMITIES: No edema, pulses are equal bilaterally. No cyanosis or clubbing NEUROLOGY: Mood and affect appear appropriate. Cranial nerves II through XII grossly intact moving all extremities, speech is clear Urinary Catheter: No Vascular Central Line Catheter: No A/P Assessment and Plan Inability to care for self, unsafe discharge due to cognition Initially he was indicated patient cannot walk, patient is walking at this time, PT and OT recommending supervision at home for safety Speech therapy following the patient intermittently for cognitive evaluations. 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 MIni mental state 28/30, recommended avoid antipsychotics for benzodiazepine. Recommending Depakote or carbamazepine Patient is medically stable for discharge, however due to underlying psychiatric/cognition patient is unsafe discharge until arrangements made by case management Case management for discharge planning Neuropsychiatry evaluated the patient recommended patient may improve with treatment, however indicates avoid benzodiazepines and antipsychotics Continue Prozac 40 mg daily Depakene 500 mg twice daily Multiple traumatic injuries, Patient laceration, subdural hemorrhage, ventricular hemorrhage, nasal fracture, C6 fracture, C1-C2 subluxation, C4 transverse process fracture, right rib fracture, L1 transverse process fracture, right pubic rami fracture Continue c-collar this time, however patient does not wear Specialist no longer following patient, patient will require outpatient follow-up if discharge Hypertension, blood pressure was elevated likely secondary to discontinuation of Xanax Amlodipine 10 mg daily Lisinopril 10 mg twice daily DVT prevention Patient ambulating Sequential compression devices while in bed Records were reviewed, awaiting transplant case manager discharge planning, no change in treatment plan Discharge Planning Case management for discharge planning Conrado Mariee Aug 23, 2017 08:31
[2017-08-23 20:00] VITALS: BP 145/83; PULSE 78; RESP 18; TEMP 97.8; O2SAT 99
[2017-08-24 08:00] VITALS: BP 156/85; PULSE 73; RESP 16; TEMP 97; O2SAT 96
[2017-08-24] MEDS: LISINOPRIL 10 MG TAB PO SCH ×2 (10:06→20:28)
[2017-08-24] MEDS: VALPROIC ACID 250 MG CAP PO SCH ×2 (10:06→20:28)
[2017-08-24] MEDS: FLUoxetine HCL 20 MG CAP PO SCH (10:06)
--- NOTE | 2017-08-24 10:10 | HHI.PR ---
Subjective Remarks Follow-up for unsafe discharge, cognitive deficits. Patient is confused stating someone told her it was Thanksgiving the other day and she got the turkey out. RN later came to me reporting patient is again anxious wanting to leave stating that she has to work. Objective Vitals Vital Signs Date Time Temp Pulse Resp B/P (MAP) Pulse Ox O2 Delivery O2 Flow Rate FiO2 08/24/17 08:00 97.0 73 16 156/85 (108) 96 08/23/17 20:00 97.8 78 18 145/83 (103) 99 I/O 08/23/17 08/23/17 08/23/17 08/24/17 08/24/17 08/24/17 06:59 14:59 22:59 06:59 14:59 22:59 Intake Total 240 ml 600 ml 240 ml Output Total 2 ml Balance 240 ml 598 ml 240 ml Intake Oral 240 ml 600 ml 240 ml Stool Total 2 ml # Voids 1 4 3 # Bowel Movements 0 Objective Remarks GENERAL: Pleasant patient in no apparent distress. CARDIOVASCULAR: Regular rate and rhythm. RESPIRATORY: No accessory muscle use. Clear to auscultation. Breath sounds equal bilaterally. GASTROINTESTINAL: Abdomen soft, non-tender, non-distended. NEUROLOGICAL: Awake and alert, but confused. Normal speech. PSYCHIATRIC: Cooperative; pleasantly conversant. Calm and happy mood and affect. Urinary Catheter: No Vascular Central Line Catheter: No A/P Problem List: (1) Inability to walk ICD Code: R26.2 - Difficulty in walking, not elsewhere classified Status: Acute (2) Alcohol dependence in controlled environment ICD Code: F10.20 - Alcohol dependence, uncomplicated Status: Chronic (3) Facial injury ICD Code: S09.93XA - Unspecified injury of face, initial encounter Status: Acute (4) Fall ICD Code: W19.XXXA - Unspecified fall, initial encounter Status: Acute (5) Hypertension ICD Code: I10 - Essential (primary) hypertension Status: Acute (6) Pelvic fracture ICD Code: S32.9XXA - Fracture of unspecified parts of lumbosacral spine and pelvis, initial encounter for closed fracture Status: Acute (7) C1-C2 subluxation ICD Code: S13.120A - Subluxation of C1/C2 cervical vertebrae, initial encounter Status: Acute (8) C6 cervical fracture ICD Code: S12.500A - Unspecified displaced fracture of sixth cervical vertebra , initial encounter for closed fracture Status: Acute (9) Traumatic brain injury ICD Code: S06.9X9A - Unspecified intracranial injury with loss of consciousness of unspecified duration, initial encounter Status: Acute (10) Nasal fracture ICD Code: S02.2XXA - Fracture of nasal bones, initial encounter for closed fracture Status: Acute (11) Mild neurocognitive disorder ICD Code: G31.84 - Mild cognitive impairment, so stated Status: Acute (12) Intracranial bleed ICD Code: I62.9 - Nontraumatic intracranial hemorrhage, unspecified Status: Acute Assessment and Plan Confusion/Anxiety/Agitation/Inability to care for self: Attributed to previous brain hemorrhage and chronic alcohol abuse. -Ammonia level normal. -Continue sitter and bed alarm -ST recommends supervision at discharge. -Patient has tried to elope multiple times and has acted out violently against staff. Remains confused. Patient does NOT have capacity to sign out AMA. -Psychiatry and neuropsychologist evaluated patient most recently on 08/17/17. Prefers antiepileptics in TBI over antipsychotics or benzodiazepines and hence Xanax was discontinued on 08/19/17. -Continue Depakote and Prozac -08/24: RN reports patient anxious. Discussed with Dr. Wilson who recommends restarting Xanax 0.5 mg but only once daily. Multiple traumatic injuries Forehead laceration, subdural hemorrhage, ventricular hemorrhage, nasal fracture, C6 fracture, C1-C2 subluxation, C4 transverse process fracture, right rib fracture, L1 transverse process fracture, right pubic rami fracture Continue c-collar. Patient non-compliant. Takes it off everyday. Specialist no longer following patient, patient will require outpatient follow- up if discharge R groin pain. New pelvis x-ray obtained 06/30 is stable. Pain improved. [place] discontinued. May use Tylenol as needed. Patient has been ambulating without issue. Hypertension: Lisinopril and Amlodipine were discontinued but BP started to increase again. Amlodipine was restarted and increased to 10 mg daily on 08/09. Continue. 08/24: BP elevated this morning at 156/85 prior to medication administration. Monitor and adjust medication as needed. DVT prevention OOB ad rola, sequential compression devices if in bed Discharge Planning Patient requires supervision for safety due to cognitive deficits. 08/09: Per CM patient requires SSI/Medicaid approval . Son has been assisting, but has been resistant which has slowed process. Problem Qualifiers (1) Hypertension: Qualified Codes: I10 - Essential (primary) hypertension Azul Sarkar Aug 24, 2017 10:10
[2017-08-24] MEDS: ALPRAZolam 0.5 MG TAB PO SCH (10:45)
[2017-08-24 20:00] VITALS: BP 139/87; PULSE 67; RESP 20; TEMP 96.7; O2SAT 100
[2017-08-24] MEDS ORDERED: diphenhydrAMINE HCL 50 MG CAP PO ONE (20:00)
[2017-08-25] MEDS: LISINOPRIL 10 MG TAB PO SCH ×2 (07:33→22:03)
[2017-08-25] MEDS: VALPROIC ACID 250 MG CAP PO SCH ×2 (07:33→22:03)
[2017-08-25] MEDS: FLUoxetine HCL 20 MG CAP PO SCH (07:33)
[2017-08-25] MEDS: ALPRAZolam 0.5 MG TAB PO SCH (07:33)
[2017-08-25 08:00] VITALS: BP 135/98; PULSE 80; RESP 18; TEMP 97.8; O2SAT 99
--- NOTE | 2017-08-25 13:25 | HHI.PR ---
Subjective Remarks Follow-up for cognitive deficits related to TBI, unsafe discharge. No acute complaints. Objective Vitals Vital Signs Date Time Temp Pulse Resp B/P (MAP) Pulse Ox O2 Delivery O2 Flow Rate FiO2 08/25/17 08:00 97.8 80 18 135/98 (110) 99 08/24/17 20:00 96.7 67 20 139/87 (104) 100 I/O 08/24/17 08/24/17 08/24/17 08/25/17 08/25/17 08/25/17 06:59 14:59 22:59 06:59 14:59 22:59 Intake Total 240 ml 600 ml 360 ml Balance 240 ml 600 ml 360 ml Intake Oral 240 ml 600 ml 360 ml # Voids 3 2 # Bowel Movements 0 Objective Remarks GENERAL: Pleasant patient in no apparent distress about to eat lunch. CARDIOVASCULAR: Regular rate and rhythm. RESPIRATORY: No accessory muscle use. Clear to auscultation. Breath sounds equal bilaterally. GASTROINTESTINAL: Abdomen soft, non-tender, non-distended. NEUROLOGICAL: Awake and alert, but confused. Normal speech. PSYCHIATRIC: Cooperative. Calm mood and affect. Urinary Catheter: No Vascular Central Line Catheter: No A/P Problem List: (1) Inability to walk ICD Code: R26.2 - Difficulty in walking, not elsewhere classified Status: Acute (2) Alcohol dependence in controlled environment ICD Code: F10.20 - Alcohol dependence, uncomplicated Status: Chronic (3) Facial injury ICD Code: S09.93XA - Unspecified injury of face, initial encounter Status: Acute (4) Fall ICD Code: W19.XXXA - Unspecified fall, initial encounter Status: Acute (5) Hypertension ICD Code: I10 - Essential (primary) hypertension Status: Acute (6) Pelvic fracture ICD Code: S32.9XXA - Fracture of unspecified parts of lumbosacral spine and pelvis, initial encounter for closed fracture Status: Acute (7) C1-C2 subluxation ICD Code: S13.120A - Subluxation of C1/C2 cervical vertebrae, initial encounter Status: Acute (8) C6 cervical fracture ICD Code: S12.500A - Unspecified displaced fracture of sixth cervical vertebra , initial encounter for closed fracture Status: Acute (9) Traumatic brain injury ICD Code: S06.9X9A - Unspecified intracranial injury with loss of consciousness of unspecified duration, initial encounter Status: Acute (10) Nasal fracture ICD Code: S02.2XXA - Fracture of nasal bones, initial encounter for closed fracture Status: Acute (11) Mild neurocognitive disorder ICD Code: G31.84 - Mild cognitive impairment, so stated Status: Acute (12) Intracranial bleed ICD Code: I62.9 - Nontraumatic intracranial hemorrhage, unspecified Status: Acute Assessment and Plan Confusion/Anxiety/Agitation/Inability to care for self: Attributed to previous brain hemorrhage and chronic alcohol abuse. -Ammonia level normal. -Continue sitter and bed alarm -ST recommends supervision at discharge. -Patient has tried to elope multiple times and has acted out violently against staff. Remains confused. Patient does NOT have capacity to sign out AMA. -Psychiatry and neuropsychologist evaluated patient most recently on 08/17/17. Prefers antiepileptics in TBI over antipsychotics or benzodiazepines and hence Xanax was discontinued on 08/19/17. -Continue Depakote and Prozac -08/24: RN reports patient anxious. Discussed with Dr. Wilson who recommends restarting Xanax 0.5 mg but only once daily. -08/25: RN later informed me patient again anxious and agitated. Received Xanax dose this morning. Dr. Harden contacted me today and recommended starting Seroquel 25 mg q8h for anxiety instead of Xanax to avoid further confusion with benzodiazepines. Xanax discontinued. Seroquel started. Will monitor clinically. Multiple traumatic injuries Forehead laceration, subdural hemorrhage, ventricular hemorrhage, nasal fracture, C6 fracture, C1-C2 subluxation, C4 transverse process fracture, right rib fracture, L1 transverse process fracture, right pubic rami fracture Continue c-collar. Patient non-compliant. Takes it off everyday. Specialist no longer following patient, patient will require outpatient follow- up if discharge R groin pain. New pelvis x-ray obtained 06/30 is stable. Pain improved. [place] discontinued. May use Tylenol as needed. Patient has been ambulating without issue. Hypertension: Stable Lisinopril and Amlodipine were discontinued but BP started to increase again. Amlodipine was restarted and increased to 10 mg daily on 08/09. Continue to monitor and adjust medication as needed. DVT prevention OOB ad rola, sequential compression devices if in bed Discharge Planning Patient requires supervision for safety due to cognitive deficits. 10/2: Per CM patient requires SSI/Medicaid approval . Son has been assisting, but has been resistant which has slowed process. Problem Qualifiers (1) Hypertension: Qualified Codes: I10 - Essential (primary) hypertension Azul Sarkar Aug 25, 2017 13:25
[2017-08-25] MEDS: QUEtiapine FUMARATE 25 MG TAB PO SCH ×2 (14:00→22:00)
[2017-08-25 20:00] VITALS: BP 120/76; PULSE 72; RESP 20; TEMP 97.5; O2SAT 98
[2017-08-26] MEDS: QUEtiapine FUMARATE 25 MG TAB PO SCH ×3 (06:00→19:42)
[2017-08-26 07:50] VITALS: BP 94/64; PULSE 64; RESP 20; TEMP 98; O2SAT 90
[2017-08-26] MEDS: LISINOPRIL 10 MG TAB PO SCH ×2 (11:11→19:42)
[2017-08-26] MEDS: VALPROIC ACID 250 MG CAP PO SCH ×2 (11:11→19:42)
[2017-08-26] MEDS: FLUoxetine HCL 20 MG CAP PO SCH (11:11)
--- NOTE | 2017-08-26 11:41 | HHI.PR ---
Subjective Remarks Follow-up for TBI, unsafe discharge. Sitter at bedside states the patient was complaining of neck pain earlier. Patient is sleeping when I enter the room. She states her neck pain is better and she knows it is hurting because she has not been wearing the neck brace. Denies new neck injury. She admits to chronic numbness in the left hand. States she is supposed to work today. Objective Vitals Vital Signs Date Time Temp Pulse Resp B/P (MAP) Pulse Ox O2 Delivery O2 Flow Rate FiO2 08/26/17 07:50 98.0 64 20 94/64 (74) 90 08/25/17 20:00 97.5 72 20 120/76 (91) 98 I/O 08/25/17 08/25/17 08/25/17 08/26/17 08/26/17 08/26/17 07:00 15:00 23:00 07:00 15:00 23:00 Intake Total 360 ml 850 ml 220 ml 60 ml Balance 360 ml 850 ml 220 ml 60 ml Intake Oral 360 ml 850 ml 220 ml 60 ml # Voids 2 3 1 0 # Bowel Movements 0 0 Objective Remarks GENERAL: Pleasant patient in no apparent distress sleeping when I enter the room. NECK: No tenderness over cervical spine or bilateral paracervical muscles. Range of motion not attempted. CARDIOVASCULAR: Regular rate and rhythm. RESPIRATORY: No accessory muscle use. Clear to auscultation. Breath sounds equal bilaterally. NEUROLOGICAL: Awake and alert, but confused. Normal speech. 5/5 supervisor waterworks strength bilaterally. 5/5 quadriceps strength bilaterally. Sensation grossly intact over bilateral hands and lower extremities. PSYCHIATRIC: Cooperative. Calm mood and affect. Urinary Catheter: No Vascular Central Line Catheter: No A/P Problem List: (1) Inability to walk ICD Code: R26.2 - Difficulty in walking, not elsewhere classified Status: Acute (2) Alcohol dependence in controlled environment ICD Code: F10.20 - Alcohol dependence, uncomplicated Status: Chronic (3) Facial injury ICD Code: S09.93XA - Unspecified injury of face, initial encounter Status: Acute (4) Fall ICD Code: W19.XXXA - Unspecified fall, initial encounter Status: Acute (5) Hypertension ICD Code: I10 - Essential (primary) hypertension Status: Acute (6) Pelvic fracture ICD Code: S32.9XXA - Fracture of unspecified parts of lumbosacral spine and pelvis, initial encounter for closed fracture Status: Acute (7) C1-C2 subluxation ICD Code: S13.120A - Subluxation of C1/C2 cervical vertebrae, initial encounter Status: Acute (8) C6 cervical fracture ICD Code: S12.500A - Unspecified displaced fracture of sixth cervical vertebra , initial encounter for closed fracture Status: Acute (9) Traumatic brain injury ICD Code: S06.9X9A - Unspecified intracranial injury with loss of consciousness of unspecified duration, initial encounter Status: Acute (10) Nasal fracture ICD Code: S02.2XXA - Fracture of nasal bones, initial encounter for closed fracture Status: Acute (11) Mild neurocognitive disorder ICD Code: G31.84 - Mild cognitive impairment, so stated Status: Acute (12) Intracranial bleed ICD Code: I62.9 - Nontraumatic intracranial hemorrhage, unspecified Status: Acute Assessment and Plan 08/26: Hypotensive this morning. Could be attributed to Seroquel. BP later improved per RN. Will apply hold parameters. Confusion/Anxiety/Agitation/Inability to care for self: Attributed to previous brain hemorrhage and chronic alcohol abuse. -Ammonia level normal. -Continue sitter and bed alarm -ST recommends supervision at discharge. -Patient has tried to elope multiple times and has acted out violently against staff. Remains confused. Patient does NOT have capacity to sign out AMA. -Psychiatry and neuropsychologist evaluated patient most recently on 08/17/17. Prefers antiepileptics in TBI over antipsychotics or benzodiazepines and hence Xanax was discontinued on 08/19/17. -Continue Depakote and Prozac -08/24: RN reports patient anxious. Discussed with Dr. Wilson who recommends restarting Xanax 0.5 mg but only once daily. -08/25: RN later informed me patient again anxious and agitated. Received Xanax dose this morning. Dr. Harden contacted me today and recommended starting Seroquel 25 mg q8h for anxiety instead of Xanax to avoid further confusion with benzodiazepines. Xanax discontinued. Seroquel started. Will monitor clinically. Multiple traumatic injuries Forehead laceration, subdural hemorrhage, ventricular hemorrhage, nasal fracture, C6 fracture, C1-C2 subluxation, C4 transverse process fracture, right rib fracture, L1 transverse process fracture, right pubic rami fracture Continue c-collar. Patient non-compliant. Takes it off everyday. Specialist no longer following patient, patient will require outpatient follow- up if discharge R groin pain. New pelvis x-ray obtained 06/30 is stable. Pain improved. [place] discontinued. May use Tylenol as needed. Patient has been ambulating without issue. -08/26: Cervical collar reapplied. Hypertension: Lisinopril and Amlodipine were discontinued but BP started to increase again. Amlodipine was restarted and increased to 10 mg daily on 08/09. Continue to monitor and adjust medication as needed. DVT prevention OOB ad rola, sequential compression devices if in bed Discharge Planning Patient requires supervision for safety due to cognitive deficits. 08/09: Per CM patient requires SSI/Medicaid approval . Son has been assisting, but has been resistant which has slowed process. Problem Qualifiers (1) Hypertension: Qualified Codes: I10 - Essential (primary) hypertension Azul Sarkar Aug 26, 2017 11:41
[2017-08-26 12:00] VITALS: BP 115/73; PULSE 73; RESP 14; TEMP 98.1; O2SAT 94
[2017-08-26 13:34] VITALS: BP 116/88
[2017-08-26 20:00] VITALS: BP 103/76; PULSE 78; RESP 20; TEMP 98.5; O2SAT 94
[2017-08-27] MEDS: QUEtiapine FUMARATE 25 MG TAB PO SCH ×3 (05:59→21:00)
[2017-08-27] MEDS: FLUoxetine HCL 20 MG CAP PO SCH (08:18)
[2017-08-27] MEDS: LISINOPRIL 10 MG TAB PO SCH ×2 (08:18→20:53)
[2017-08-27] MEDS: VALPROIC ACID 250 MG CAP PO SCH ×2 (08:23→20:54)
--- NOTE | 2017-08-27 08:40 | HHI.PR ---
Subjective Remarks Follow-up for TBI, unsafe discharge. Patient has cervical collar on but it is upside down and out of place. No acute complaints. Objective Vitals Vital Signs Date Time Temp Pulse Resp B/P (MAP) Pulse Ox O2 Delivery O2 Flow Rate FiO2 08/26/17 20:00 98.5 78 20 103/76 (85) 94 08/26/17 13:34 116/88 (97) 08/26/17 12:00 98.1 73 14 115/73 (87) 94 I/O 08/26/17 08/26/17 08/26/17 08/27/17 08/27/17 08/27/17 07:00 15:00 23:00 07:00 15:00 23:00 Intake Total 60 ml 222 ml 120 ml 60 ml Balance 60 ml 222 ml 120 ml 60 ml Intake Oral 60 ml 222 ml 120 ml 60 ml # Voids 0 2 4 # Bowel Movements 0 0 0 Objective Remarks GENERAL: Patient in no apparent distress. CARDIOVASCULAR: Regular rate and rhythm. RESPIRATORY: No accessory muscle use. Clear to auscultation. Breath sounds equal bilaterally. GASTROINTESTINAL: Abdomen soft, non-tender, non-distended. NEUROLOGICAL: Awake and alert. Normal speech. PSYCHIATRIC: Cooperative. Calm mood and affect. Urinary Catheter: No Vascular Central Line Catheter: No A/P Problem List: (1) Inability to walk ICD Code: R26.2 - Difficulty in walking, not elsewhere classified Status: Acute (2) Alcohol dependence in controlled environment ICD Code: F10.20 - Alcohol dependence, uncomplicated Status: Chronic (3) Facial injury ICD Code: S09.93XA - Unspecified injury of face, initial encounter Status: Acute (4) Fall ICD Code: W19.XXXA - Unspecified fall, initial encounter Status: Acute (5) Hypertension ICD Code: I10 - Essential (primary) hypertension Status: Acute (6) Pelvic fracture ICD Code: S32.9XXA - Fracture of unspecified parts of lumbosacral spine and pelvis, initial encounter for closed fracture Status: Acute (7) C1-C2 subluxation ICD Code: S13.120A - Subluxation of C1/C2 cervical vertebrae, initial encounter Status: Acute (8) C6 cervical fracture ICD Code: S12.500A - Unspecified displaced fracture of sixth cervical vertebra , initial encounter for closed fracture Status: Acute (9) Traumatic brain injury ICD Code: S06.9X9A - Unspecified intracranial injury with loss of consciousness of unspecified duration, initial encounter Status: Acute (10) Nasal fracture ICD Code: S02.2XXA - Fracture of nasal bones, initial encounter for closed fracture Status: Acute (11) Mild neurocognitive disorder ICD Code: G31.84 - Mild cognitive impairment, so stated Status: Acute (12) Intracranial bleed ICD Code: I62.9 - Nontraumatic intracranial hemorrhage, unspecified Status: Acute Assessment and Plan Confusion/Anxiety/Agitation/Inability to care for self: Attributed to previous brain hemorrhage and chronic alcohol abuse: Stable -Ammonia level normal. -Continue sitter and bed alarm -ST recommends supervision at discharge. -Patient has tried to elope multiple times and has acted out violently against staff. Remains confused. Patient does NOT have capacity to sign out AMA. -Psychiatry and neuropsychologist evaluated patient most recently on 08/17/17. Prefers antiepileptics in TBI over antipsychotics or benzodiazepines and hence Xanax was discontinued on 08/19/17. -Continue Depakote and Prozac -08/24: RN reports patient anxious. Discussed with Dr. Wilson who recommends restarting Xanax 0.5 mg but only once daily. -08/25: RN later informed me patient again anxious and agitated. Received Xanax dose this morning. Dr. Harden contacted me today and recommended starting Seroquel 25 mg q8h for anxiety instead of Xanax to avoid further confusion with benzodiazepines. Xanax discontinued. Seroquel started. Will monitor clinically. Multiple traumatic injuries Forehead laceration, subdural hemorrhage, ventricular hemorrhage, nasal fracture, C6 fracture, C1-C2 subluxation, C4 transverse process fracture, right rib fracture, L1 transverse process fracture, right pubic rami fracture Continue c-collar. Patient non-compliant. Specialist no longer following patient, patient will require outpatient follow- up if discharge R groin pain. New pelvis x-ray obtained 06/30 is stable. Pain improved. [place] discontinued. May use Tylenol as needed. Patient has been ambulating without issue. Hypertension: Lisinopril and Amlodipine were discontinued but BP started to increase again. Amlodipine was restarted and increased to 10 mg daily on 08/09. Continue to monitor and adjust medication as needed. DVT prevention OOB ad rola, sequential compression devices if in bed Discharge Planning Patient requires supervision for safety due to cognitive deficits. 08/09: Per CM patient requires SSI/Medicaid approval . Son has been assisting, but has been resistant which has slowed process. Problem Qualifiers (1) Hypertension: Qualified Codes: I10 - Essential (primary) hypertension Azul Sarkar Aug 27, 2017 08:40
[2017-08-27 20:42] VITALS: BP 115/71; PULSE 70; RESP 16; TEMP 98; O2SAT 90
[2017-08-28] MEDS: QUEtiapine FUMARATE 25 MG TAB PO SCH ×3 (05:55→21:14)
[2017-08-28 08:00] VITALS: BP 136/85; PULSE 63; RESP 14; TEMP 96.5; O2SAT 94
[2017-08-28] MEDS: LISINOPRIL 10 MG TAB PO SCH ×2 (09:44→21:14)
[2017-08-28] MEDS: VALPROIC ACID 250 MG CAP PO SCH ×2 (09:44→21:13)
[2017-08-28] MEDS: FLUoxetine HCL 20 MG CAP PO SCH (09:44)
--- NOTE | 2017-08-28 13:49 | HHI.PR ---
Subjective Remarks Patient evaluated earlier. Follow-up for TBI, cognitive deficits. Patient states her neck was hurting earlier and again she is not wearing her cervical collar. Objective Vitals Vital Signs Date Time Temp Pulse Resp B/P (MAP) Pulse Ox O2 Delivery O2 Flow Rate FiO2 08/28/17 08:00 96.5 63 14 136/85 (102) 94 08/27/17 20:42 98.0 70 16 115/71 (86) 90 I/O 08/27/17 08/27/17 08/27/17 08/28/17 08/28/17 08/28/17 07:00 15:00 23:00 07:00 15:00 23:00 Intake Total 60 ml 725 ml 340 ml Balance 60 ml 725 ml 340 ml Intake Oral 60 ml 725 ml 340 ml # Voids 4 3 3 1 # Bowel Movements 0 0 1 Objective Remarks GENERAL: Patient in no apparent distress. CARDIOVASCULAR: Regular rate and rhythm. RESPIRATORY: No accessory muscle use. Clear to auscultation. Breath sounds equal bilaterally. GASTROINTESTINAL: Abdomen soft, non-tender, non-distended. NEUROLOGICAL: Awake and alert. Normal speech. PSYCHIATRIC: Cooperative. Calm mood and affect. Urinary Catheter: No Vascular Central Line Catheter: No A/P Problem List: (1) Inability to walk ICD Code: R26.2 - Difficulty in walking, not elsewhere classified Status: Acute (2) Alcohol dependence in controlled environment ICD Code: F10.20 - Alcohol dependence, uncomplicated Status: Chronic (3) Facial injury ICD Code: S09.93XA - Unspecified injury of face, initial encounter Status: Acute (4) Fall ICD Code: W19.XXXA - Unspecified fall, initial encounter Status: Acute (5) Hypertension ICD Code: I10 - Essential (primary) hypertension Status: Acute (6) Pelvic fracture ICD Code: S32.9XXA - Fracture of unspecified parts of lumbosacral spine and pelvis, initial encounter for closed fracture Status: Acute (7) C1-C2 subluxation ICD Code: S13.120A - Subluxation of C1/C2 cervical vertebrae, initial encounter Status: Acute (8) C6 cervical fracture ICD Code: S12.500A - Unspecified displaced fracture of sixth cervical vertebra , initial encounter for closed fracture Status: Acute (9) Traumatic brain injury ICD Code: S06.9X9A - Unspecified intracranial injury with loss of consciousness of unspecified duration, initial encounter Status: Acute (10) Nasal fracture ICD Code: S02.2XXA - Fracture of nasal bones, initial encounter for closed fracture Status: Acute (11) Mild neurocognitive disorder ICD Code: G31.84 - Mild cognitive impairment, so stated Status: Acute (12) Intracranial bleed ICD Code: I62.9 - Nontraumatic intracranial hemorrhage, unspecified Status: Acute Assessment and Plan Confusion/Anxiety/Agitation/Inability to care for self: Attributed to previous brain hemorrhage and chronic alcohol abuse: Stable -Ammonia level normal. -Continue sitter and bed alarm -ST recommends supervision at discharge. -Patient has tried to elope multiple times and has acted out violently against staff. Remains confused. Patient does NOT have capacity to sign out AMA. -Psychiatry and neuropsychologist evaluated patient most recently on 08/17/17. Prefers antiepileptics in TBI over antipsychotics or benzodiazepines and hence Xanax was discontinued on 08/19/17. -Continue Depakote and Prozac -08/24: RN reports patient anxious. Discussed with Dr. Wilson who recommends restarting Xanax 0.5 mg but only once daily. -08/25: RN later informed me patient again anxious and agitated. Received Xanax dose this morning. Dr. Harden contacted me today and recommended starting Seroquel 25 mg q8h for anxiety instead of Xanax to avoid further confusion with benzodiazepines. Xanax discontinued. Seroquel started. Will monitor clinically. -08/28: Seems to be responding well to Seroquel as there have been no recent c/ o behavior issues. Multiple traumatic injuries Forehead laceration, subdural hemorrhage, ventricular hemorrhage, nasal fracture, C6 fracture, C1-C2 subluxation, C4 transverse process fracture, right rib fracture, L1 transverse process fracture, right pubic rami fracture Continue c-collar. Patient non-compliant. Specialist no longer following patient, patient will require outpatient follow- up if discharge R groin pain. New pelvis x-ray obtained 06/30 is stable. Pain improved. [place] discontinued. May use Tylenol as needed. Patient has been ambulating without issue. Hypertension: Lisinopril and Amlodipine were discontinued but BP started to increase again. Amlodipine was restarted and increased to 10 mg daily on 08/09. Continue to monitor and adjust medication as needed. DVT prevention OOB ad rola, sequential compression devices if in bed Discharge Planning Patient requires supervision for safety due to cognitive deficits. 08/09: Per CM patient requires SSI/Medicaid approval . Son has been assisting, but has been resistant which has slowed process. Problem Qualifiers (1) Hypertension: Qualified Codes: I10 - Essential (primary) hypertension Azul Sarkar Aug 28, 2017 13:49
[2017-08-28 20:52] VITALS: BP 107/61; PULSE 68; RESP 16; TEMP 98; O2SAT 97
[2017-08-29] MEDS: QUEtiapine FUMARATE 25 MG TAB PO SCH ×3 (06:29→20:42)
[2017-08-29 07:50] VITALS: BP 128/84; PULSE 65; RESP 20; TEMP 97.1; O2SAT 93
--- NOTE | 2017-08-29 08:46 | HHI.PR ---
Subjective Remarks Follow-up for TBI, cognitive deficits. Patient has no acute complaints. Objective Vitals Vital Signs Date Time Temp Pulse Resp B/P (MAP) Pulse Ox O2 Delivery O2 Flow Rate FiO2 08/28/17 20:52 98.0 68 16 107/61 (76) 97 I/O 08/28/17 08/28/17 08/28/17 08/29/17 08/29/17 08/29/17 07:00 15:00 23:00 07:00 15:00 23:00 Intake Total 340 ml 462 ml Balance 340 ml 462 ml Intake Oral 340 ml 462 ml # Voids 3 1 1 3 # Bowel Movements 0 1 1 Objective Remarks GENERAL: Patient in no apparent distress, sleeping when I enter the room. CARDIOVASCULAR: Regular rate and rhythm. RESPIRATORY: No accessory muscle use. Clear to auscultation. Breath sounds equal bilaterally. GASTROINTESTINAL: Abdomen soft, non-tender, non-distended. NEUROLOGICAL: Sleeping but arouses. Normal speech. PSYCHIATRIC: Cooperative. Calm mood and affect. Urinary Catheter: No Vascular Central Line Catheter: No A/P Problem List: (1) Inability to walk ICD Code: R26.2 - Difficulty in walking, not elsewhere classified Status: Acute (2) Alcohol dependence in controlled environment ICD Code: F10.20 - Alcohol dependence, uncomplicated Status: Chronic (3) Facial injury ICD Code: S09.93XA - Unspecified injury of face, initial encounter Status: Acute (4) Fall ICD Code: W19.XXXA - Unspecified fall, initial encounter Status: Acute (5) Hypertension ICD Code: I10 - Essential (primary) hypertension Status: Acute (6) Pelvic fracture ICD Code: S32.9XXA - Fracture of unspecified parts of lumbosacral spine and pelvis, initial encounter for closed fracture Status: Acute (7) C1-C2 subluxation ICD Code: S13.120A - Subluxation of C1/C2 cervical vertebrae, initial encounter Status: Acute (8) C6 cervical fracture ICD Code: S12.500A - Unspecified displaced fracture of sixth cervical vertebra , initial encounter for closed fracture Status: Acute (9) Traumatic brain injury ICD Code: S06.9X9A - Unspecified intracranial injury with loss of consciousness of unspecified duration, initial encounter Status: Acute (10) Nasal fracture ICD Code: S02.2XXA - Fracture of nasal bones, initial encounter for closed fracture Status: Acute (11) Mild neurocognitive disorder ICD Code: G31.84 - Mild cognitive impairment, so stated Status: Acute (12) Intracranial bleed ICD Code: I62.9 - Nontraumatic intracranial hemorrhage, unspecified Status: Acute Assessment and Plan Confusion/Anxiety/Agitation/Inability to care for self: Attributed to previous brain hemorrhage and chronic alcohol abuse: Stable -Ammonia level normal. -Continue sitter and bed alarm -ST recommends supervision at discharge. -Patient has tried to elope multiple times and has acted out violently against staff. Remains confused. Patient does NOT have capacity to sign out AMA. -Psychiatry and neuropsychologist evaluated patient most recently on 08/17/17. Prefers antiepileptics in TBI over antipsychotics or benzodiazepines and hence Xanax was discontinued on 08/19/17. -Continue Depakote and Prozac -08/24: RN reports patient anxious. Discussed with Dr. Wilson who recommends restarting Xanax 0.5 mg but only once daily. -08/25: RN later informed me patient again anxious and agitated. Received Xanax dose this morning. Dr. Harden contacted me today and recommended starting Seroquel 25 mg q8h for anxiety instead of Xanax to avoid further confusion with benzodiazepines. Xanax discontinued. Seroquel started. Will monitor clinically. Multiple traumatic injuries Forehead laceration, subdural hemorrhage, ventricular hemorrhage, nasal fracture, C6 fracture, C1-C2 subluxation, C4 transverse process fracture, right rib fracture, L1 transverse process fracture, right pubic rami fracture Continue c-collar. Patient non-compliant. Specialist no longer following patient, patient will require outpatient follow- up if discharge R groin pain. New pelvis x-ray obtained 06/30 is stable. Pain improved. [place] discontinued. May use Tylenol as needed. Patient has been ambulating without issue. Hypertension: Lisinopril and Amlodipine were discontinued but BP started to increase again. Amlodipine was restarted and increased to 10 mg daily on 08/09. Continue to monitor and adjust medication as needed. DVT prevention OOB ad rola, sequential compression devices if in bed Discharge Planning Patient requires supervision for safety due to cognitive deficits. 08/09: Per CM patient requires SSI/Medicaid approval . Son has been assisting, but has been resistant which has slowed process. Problem Qualifiers (1) Hypertension: Qualified Codes: I10 - Essential (primary) hypertension Azul Sarkar Aug 29, 2017 08:46
[2017-08-29] MEDS: VALPROIC ACID 250 MG CAP PO SCH ×2 (09:27→20:42)
[2017-08-29] MEDS: FLUoxetine HCL 20 MG CAP PO SCH (09:28)
[2017-08-29] MEDS: LISINOPRIL 10 MG TAB PO SCH ×2 (09:28→20:42)
[2017-08-29 15:50] VITALS: BP 125/75; PULSE 74; RESP 20; TEMP 98; O2SAT 98
[2017-08-29 21:07] VITALS: BP 112/62; PULSE 65; RESP 16; TEMP 97.6; O2SAT 99
[2017-08-30] MEDS: QUEtiapine FUMARATE 25 MG TAB PO SCH ×3 (05:38→20:49)
--- NOTE | 2017-08-30 09:38 | HHI.PR ---
Subjective Remarks Follow-up for TBI, cognitive deficits. When I told the patient she was not wearing her neck brace she states "It feels better". Objective Vitals Vital Signs Date Time Temp Pulse Resp B/P (MAP) Pulse Ox O2 Delivery O2 Flow Rate FiO2 08/29/17 21:07 97.6 65 16 112/62 (79) 99 08/29/17 15:50 98.0 74 20 125/75 (92) 98 I/O 08/29/17 08/29/17 08/29/17 08/30/17 08/30/17 08/30/17 07:00 15:00 23:00 07:00 15:00 23:00 Intake Total 780 ml Balance 780 ml Intake Oral 780 ml # Voids 3 4 3 # Bowel Movements 1 1 1 Objective Remarks GENERAL: Patient in no apparent distress, sleeping when I enter the room. CARDIOVASCULAR: Regular rate and rhythm. RESPIRATORY: No accessory muscle use. Clear to auscultation. Breath sounds equal bilaterally. GASTROINTESTINAL: Abdomen soft, non-tender, non-distended. NEUROLOGICAL: Sleeping but arouses to voice. Normal speech. PSYCHIATRIC: Cooperative. Calm mood and affect. Urinary Catheter: No Vascular Central Line Catheter: No A/P Problem List: (1) Inability to walk ICD Code: R26.2 - Difficulty in walking, not elsewhere classified Status: Acute (2) Alcohol dependence in controlled environment ICD Code: F10.20 - Alcohol dependence, uncomplicated Status: Chronic (3) Facial injury ICD Code: S09.93XA - Unspecified injury of face, initial encounter Status: Acute (4) Fall ICD Code: W19.XXXA - Unspecified fall, initial encounter Status: Acute (5) Hypertension ICD Code: I10 - Essential (primary) hypertension Status: Acute (6) Pelvic fracture ICD Code: S32.9XXA - Fracture of unspecified parts of lumbosacral spine and pelvis, initial encounter for closed fracture Status: Acute (7) C1-C2 subluxation ICD Code: S13.120A - Subluxation of C1/C2 cervical vertebrae, initial encounter Status: Acute (8) C6 cervical fracture ICD Code: S12.500A - Unspecified displaced fracture of sixth cervical vertebra , initial encounter for closed fracture Status: Acute (9) Traumatic brain injury ICD Code: S06.9X9A - Unspecified intracranial injury with loss of consciousness of unspecified duration, initial encounter Status: Acute (10) Nasal fracture ICD Code: S02.2XXA - Fracture of nasal bones, initial encounter for closed fracture Status: Acute (11) Mild neurocognitive disorder ICD Code: G31.84 - Mild cognitive impairment, so stated Status: Acute (12) Intracranial bleed ICD Code: I62.9 - Nontraumatic intracranial hemorrhage, unspecified Status: Acute Assessment and Plan Confusion/Anxiety/Agitation/Inability to care for self: Attributed to previous brain hemorrhage and chronic alcohol abuse: Stable -Ammonia level normal. -Continue sitter and bed alarm -ST recommends supervision at discharge. -Patient has tried to elope multiple times and has acted out violently against staff. Remains confused. Patient does NOT have capacity to sign out AMA. -Psychiatry and neuropsychologist evaluated patient most recently on 08/17/17. Prefers antiepileptics in TBI over antipsychotics or benzodiazepines and hence Xanax was discontinued on 08/19/17. -Continue Depakote and Prozac -08/24: RN reports patient anxious. Discussed with Dr. Wilson who recommends restarting Xanax 0.5 mg but only once daily. -08/25: RN later informed me patient again anxious and agitated. Received Xanax dose this morning. Dr. Harden contacted me today and recommended starting Seroquel 25 mg q8h for anxiety instead of Xanax to avoid further confusion with benzodiazepines. Xanax discontinued. Seroquel started. Will monitor clinically. Multiple traumatic injuries Forehead laceration, subdural hemorrhage, ventricular hemorrhage, nasal fracture, C6 fracture, C1-C2 subluxation, C4 transverse process fracture, right rib fracture, L1 transverse process fracture, right pubic rami fracture Continue c-collar. Patient non-compliant with use. Specialist no longer following patient, patient will require outpatient follow- up if discharge R groin pain. New pelvis x-ray obtained 06/30 is stable. Pain improved. Lamar discontinued. May use Tylenol as needed. Patient has been ambulating without issue. Hypertension: Stable. Lisinopril and Amlodipine were discontinued but BP started to increase again. Amlodipine was restarted and increased to 10 mg daily on 08/09. Continue to monitor and adjust medication as needed. DVT prevention OOB ad rola, sequential compression devices if in bed Discharge Planning Patient requires supervision for safety due to cognitive deficits. 08/09: Per CM patient requires SSI/Medicaid approval . Son has been assisting, but has been resistant which has slowed process. Problem Qualifiers (1) Hypertension: Qualified Codes: I10 - Essential (primary) hypertension Azul Sarkar Aug 30, 2017 09:38
[2017-08-30] MEDS: FLUoxetine HCL 20 MG CAP PO SCH (10:24)
[2017-08-30] MEDS: LISINOPRIL 10 MG TAB PO SCH ×2 (10:24→20:49)
[2017-08-30] MEDS: VALPROIC ACID 250 MG CAP PO SCH ×2 (10:24→20:49)
[2017-08-30 16:00] VITALS: BP 100/69; PULSE 82; RESP 18; TEMP 96.9; O2SAT 95
[2017-08-30 20:00] VITALS: BP 120/75; PULSE 84; RESP 18; TEMP 97.1; O2SAT 94
[2017-08-31] MEDS: QUEtiapine FUMARATE 25 MG TAB PO SCH ×3 (06:12→21:04)
[2017-08-31 08:00] VITALS: BP 125/83; PULSE 84; RESP 18; TEMP 96.7; O2SAT 96
[2017-08-31] MEDS: LISINOPRIL 10 MG TAB PO SCH ×2 (08:08→21:04)
[2017-08-31] MEDS: VALPROIC ACID 250 MG CAP PO SCH ×2 (08:08→21:04)
[2017-08-31] MEDS: FLUoxetine HCL 20 MG CAP PO SCH (08:09)
--- NOTE | 2017-08-31 09:57 | HHI.PR ---
Subjective Remarks Patient seen and examined today for follow-up on unsafe discharge due to cognition. Patient lying in bed comfortable. Denies any new complaints. No change in clinical status. Objective Vitals Vital Signs Date Time Temp Pulse Resp B/P (MAP) Pulse Ox O2 Delivery O2 Flow Rate FiO2 08/31/17 08:00 96.7 84 18 125/83 (97) 96 08/30/17 20:00 97.1 84 18 120/75 (90) 94 08/30/17 16:00 96.9 82 18 100/69 (79) 95 I/O 08/30/17 08/30/17 08/30/17 08/31/17 08/31/17 08/31/17 07:00 15:00 23:00 07:00 15:00 23:00 Intake Total 800 ml Balance 800 ml Intake Oral 800 ml # Voids 3 3 # Bowel Movements 1 Objective Remarks GENERAL: Well-developed, well-nourished, in no acute distress. alert and orientated waxes and wanes daily HEENT: Head is normocephalic without any lesions or masses noted. Facial features are symmetric. Eyes: Extraocular muscles are intact. Conjunctivae were clear. NECK: C-collar in on table at bedside CARDIAC: Regular rhythm, regular rate. S1/S2 are heard. No murmurs gallops or rubs. LUNGS: Clear to auscultation bilaterally. No wheeze, rhonchi or rales. No use of accessory muscles on inspiration or expiration. ABDOMEN: Soft, nontender. Nondistended. Bowel sounds heard in all 4 quadrants. No organomegaly or masses. Negative rebound, negative guarding EXTREMITIES: No edema, pulses are equal bilaterally. No cyanosis or clubbing NEUROLOGY: Mood and affect appear appropriate. Cranial nerves II through XII grossly intact moving all extremities, speech is clear Urinary Catheter: No Vascular Central Line Catheter: No A/P Assessment and Plan Inability to care for self, unsafe discharge due to cognition Initially he was indicated patient cannot walk, patient is walking at this time, PT and OT recommending supervision at home for safety Speech therapy following the patient intermittently for cognitive evaluations. 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 MIni mental state 28/30, recommended avoid antipsychotics for benzodiazepine. Recommending Depakote or carbamazepine Patient is medically stable for discharge, however due to underlying psychiatric/cognition patient is unsafe discharge until arrangements made by case management Case management for discharge planning Neuropsychiatry evaluated the patient recommended patient may improve with treatment, however indicates avoid benzodiazepines and antipsychotics Continue Prozac 40 mg daily Depakene 500 mg twice daily Seroquel 25 mg every 8 hours Multiple traumatic injuries, Patient laceration, subdural hemorrhage, ventricular hemorrhage, nasal fracture, C6 fracture, C1-C2 subluxation, C4 transverse process fracture, right rib fracture, L1 transverse process fracture, right pubic rami fracture Continue c-collar this time, however patient does not wear Specialist no longer following patient, patient will require outpatient follow-up if discharge Hypertension, blood pressure was elevated likely secondary to discontinuation of Xanax Amlodipine 10 mg daily Lisinopril 10 mg twice daily DVT prevention Patient ambulating Sequential compression devices while in bed Records were reviewed, no change in treatment plan, awaiting upper caser discharge planning, Discharge Planning Case management for discharge planning Conrado Mariee Aug 31, 2017 09:57
[2017-08-31 20:00] VITALS: BP 111/75; PULSE 67; RESP 20; TEMP 98.1; O2SAT 95
[2017-08-31] MEDS: ACETAMINOPHEN 325 MG TAB PO PRN (21:04)
[2017-09-01] MEDS: QUEtiapine FUMARATE 25 MG TAB PO SCH ×3 (05:57→20:51)
[2017-09-01 07:50] VITALS: BP 117/73; PULSE 58; RESP 20; TEMP 96; O2SAT 92
[2017-09-01] MEDS: FLUoxetine HCL 20 MG CAP PO SCH (09:25)
[2017-09-01] MEDS: LISINOPRIL 10 MG TAB PO SCH ×2 (09:25→20:51)
[2017-09-01] MEDS: VALPROIC ACID 250 MG CAP PO SCH ×2 (09:25→20:51)
--- NOTE | 2017-09-01 09:55 | HHI.PR ---
Subjective Remarks Patient seen and examined today for follow-up on unsafe discharge due to cognition. Patient denies any new complaints. No change in clinical status. Objective Vitals Vital Signs Date Time Temp Pulse Resp B/P (MAP) Pulse Ox O2 Delivery O2 Flow Rate FiO2 09/01/17 07:50 96.0 58 20 117/73 (88) 92 08/31/17 20:00 98.1 67 20 111/75 (87) 95 I/O 08/31/17 08/31/17 08/31/17 09/01/17 09/01/17 09/01/17 07:00 15:00 23:00 07:00 15:00 23:00 Intake Total 120 ml 60 ml Output Total 800 ml Balance -680 ml 60 ml Intake Oral 120 ml 60 ml Output Urine Total 800 ml # Voids 5 1 # Bowel Movements 0 0 Objective Remarks GENERAL: Well-developed, well-nourished, in no acute distress. alert and orientated waxes and wanes daily HEENT: Head is normocephalic without any lesions or masses noted. Facial features are symmetric. Eyes: Extraocular muscles are intact. Conjunctivae were clear. NECK: C-collar in on table at bedside CARDIAC: Regular rhythm, regular rate. S1/S2 are heard. No murmurs gallops or rubs. LUNGS: Clear to auscultation bilaterally. No wheeze, rhonchi or rales. No use of accessory muscles on inspiration or expiration. ABDOMEN: Soft, nontender. Nondistended. Bowel sounds heard in all 4 quadrants. No organomegaly or masses. Negative rebound, negative guarding EXTREMITIES: No edema, pulses are equal bilaterally. No cyanosis or clubbing NEUROLOGY: Mood and affect appear appropriate. Cranial nerves II through XII grossly intact moving all extremities, speech is clear Urinary Catheter: No Vascular Central Line Catheter: No A/P Assessment and Plan Inability to care for self, unsafe discharge due to cognition Initially he was indicated patient cannot walk, patient is walking at this time, PT and OT recommending supervision at home for safety Speech therapy following the patient intermittently for cognitive evaluations. 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 MIni mental state 28/30, recommended avoid antipsychotics for benzodiazepine. Recommending Depakote or carbamazepine Patient is medically stable for discharge, however due to underlying psychiatric/cognition patient is unsafe discharge until arrangements made by case management Case management for discharge planning Neuropsychiatry evaluated the patient recommended patient may improve with treatment, however indicates avoid benzodiazepines and antipsychotics Continue Prozac 40 mg daily Depakene 500 mg twice daily Seroquel 25 mg every 8 hours Multiple traumatic injuries, Patient laceration, subdural hemorrhage, ventricular hemorrhage, nasal fracture, C6 fracture, C1-C2 subluxation, C4 transverse process fracture, right rib fracture, L1 transverse process fracture, right pubic rami fracture Continue c-collar this time, however patient does not wear Specialist no longer following patient, patient will require outpatient follow-up if discharge Hypertension, blood pressure was elevated likely secondary to discontinuation of Xanax Amlodipine 10 mg daily Lisinopril 10 mg twice daily DVT prevention Patient ambulating Sequential compression devices while in bed Records were reviewed, awaiting rn case manager hospice discharge planning, no change in treatment plan, Discharge Planning Case management for discharge planning Conrado Mariee Sep 01, 2017 09:55
[2017-09-01 20:00] VITALS: BP 122/84; PULSE 79; RESP 20; TEMP 97.3; O2SAT 99
[2017-09-01] MEDS ORDERED: ALPRAZolam 0.5 MG TAB PO ONE (23:30)
[2017-09-02] VITALS (7 sets, daily range): BP systolic 103–150; BP diastolic 57–82; PULSE 67–79; RESP 16–20; TEMP 96.7–99.9; O2SAT 95–98
[2017-09-02] MEDS: QUEtiapine FUMARATE 25 MG TAB PO SCH ×3 (06:00→20:12)
--- NOTE | 2017-09-02 08:26 | HHI.PR ---
Subjective Remarks Patient seen and examined today for follow-up on unsafe discharge due to cognition. Patient is doing well this morning. Nursing staff indicates that the patient has had urinary frequency, she stood up yesterday evening and fell backwards. No indication of any head injury or trauma Objective Vitals Vital Signs Date Time Temp Pulse Resp B/P (MAP) Pulse Ox O2 Delivery O2 Flow Rate FiO2 09/02/17 06:32 99.3 67 16 130/79 (96) 96 09/02/17 05:49 98.9 09/02/17 05:30 99.9 79 18 118/79 (92) 95 09/02/17 04:32 99.0 72 129/80 (96) 95 09/01/17 20:00 97.3 79 20 122/84 (97) 99 I/O 09/01/17 09/01/17 09/01/17 09/02/17 09/02/17 09/02/17 07:00 15:00 23:00 07:00 15:00 23:00 Intake Total 60 ml 221 ml 120 ml Balance 60 ml 221 ml 120 ml Intake Oral 60 ml 221 ml 120 ml # Voids 1 3 6 # Bowel Movements 0 1 0 Objective Remarks GENERAL: Well-developed, well-nourished, in no acute distress. alert and orientated waxes and wanes daily HEENT: Head is normocephalic without any lesions or masses noted. Facial features are symmetric. Eyes: Extraocular muscles are intact. Conjunctivae were clear. NECK: C-collar in on table at bedside CARDIAC: Regular rhythm, regular rate. S1/S2 are heard. No murmurs gallops or rubs. LUNGS: Clear to auscultation bilaterally. No wheeze, rhonchi or rales. No use of accessory muscles on inspiration or expiration. ABDOMEN: Soft, nontender. Nondistended. Bowel sounds heard in all 4 quadrants. No organomegaly or masses. Negative rebound, negative guarding EXTREMITIES: No edema, pulses are equal bilaterally. No cyanosis or clubbing NEUROLOGY: Mood and affect appear appropriate. Cranial nerves II through XII grossly intact moving all extremities, speech is clear Urinary Catheter: No Vascular Central Line Catheter: No A/P Assessment and Plan Fall with standing Patient with symptoms of increased urinary frequency Patient indicates that she stood up and she fell backwards without any head trauma Check CBC, BMP, urinalysis Obtain orthostatic vitals Inability to care for self, unsafe discharge due to cognition Initially he was indicated patient cannot walk, patient is walking at this time, PT and OT recommending supervision at home for safety Speech therapy following the patient intermittently for cognitive evaluations. 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 MIni mental state 28/30, recommended avoid antipsychotics for benzodiazepine. Recommending Depakote or carbamazepine Patient is medically stable for discharge, however due to underlying psychiatric/cognition patient is unsafe discharge until arrangements made by case management Case management for discharge planning Neuropsychiatry evaluated the patient recommended patient may improve with treatment, however indicates avoid benzodiazepines and antipsychotics Continue Prozac 40 mg daily Depakene 500 mg twice daily Seroquel 25 mg every 8 hours Multiple traumatic injuries, Patient laceration, subdural hemorrhage, ventricular hemorrhage, nasal fracture, C6 fracture, C1-C2 subluxation, C4 transverse process fracture, right rib fracture, L1 transverse process fracture, right pubic rami fracture Continue c-collar this time, however patient does not wear Specialist no longer following patient, patient will require outpatient follow-up if discharge Hypertension, blood pressure was elevated likely secondary to discontinuation of Xanax Amlodipine 10 mg daily Lisinopril 10 mg twice daily DVT prevention Patient ambulating Sequential compression devices while in bed Discharge Planning Case management for discharge planning Conrado Mariee Sep 02, 2017 08:26
[2017-09-02] MEDS: ACETAMINOPHEN 325 MG TAB PO PRN (10:14)
[2017-09-02] MEDS: LISINOPRIL 10 MG TAB PO SCH ×2 (10:14→20:12)
[2017-09-02] MEDS: VALPROIC ACID 250 MG CAP PO SCH ×2 (10:14→20:13)
[2017-09-02] MEDS: FLUoxetine HCL 20 MG CAP PO SCH (10:16)
[2017-09-02 10:51] LABS: BILIRUBIN, URINE NEG (NEG); BLOOD, URINE TRACE (NEG); GLUCOSE,URINE NEG (NEG); KETONE, URINE NEG (NEG); NITRITE,URINE POS (NEG); URINE LEUKOCYTE ESTERASE NEG (NEG)
[2017-09-02 10:55] LABS: AUTOMATED NEUTROPHIL # 7.3 TH/MM3 (1.8-7.7); BASOPHIL % 0.4 % (0.0-2.0); EOSINOPHIL # 0.4 TH/MM3 (0-0.4); EOSINOPHIL % 3.7 % (0.0-4.0); HEMATOCRIT 36.8 % (35.0-46.0); HEMOGLOBIN 12.1 GM/DL (11.6-15.3); LYMPH % 11.7 % (9.0-44.0); LYMPHOCYTE # 1.2 TH/MM3 (1.0-4.8); MEAN CELL VOLUME 90.6 FL (80.0-100.0); MEAN CORPUSCULAR HEMOGLOBIN 29.8 PG (27.0-34.0); MEAN CORPUSCULAR HGB CONC 32.9 % (32.0-36.0); MEAN PLATELET VOLUME 7.3 FL (7.0-11.0); MONO % 9.9 % (0.0-8.0); NEUT % 74.3 % (16.0-70.0); PLATELET COUNT 215 TH/MM3 (150-450); RED BLOOD COUNT 4.07 MIL/MM3 (4.00-5.30); RED CELL DISTRIBUTION WIDTH 12.5 % (11.6-17.2); WHITE BLOOD COUNT 9.9 TH/MM3 (4.0-11.0)
[2017-09-02 10:57] LABS: BACTERIA, URINE MANY /hpf; RBC, URINE 0-3 /hpf (0-3); SQUAMOUS EPITHELIAL CELL URINE 0-5 /hpf (0-5); URINE COLOR YELLOW (YELLW/STRAW)
[2017-09-02 11:06] LABS: BICARBONATE 27.6 MEQ/L (21.0-32.0)
[2017-09-02 11:09] LABS: CREATININE 0.8 MG/DL (0.50-1.00)
[2017-09-02] MEDS: LEVOFLOXACIN 250 MG TAB PO SCH (12:00)
--- NOTE | 2017-09-02 13:51 | RADRPT ---
EXAM DATE/TIME: 09/02/2017 12:56 [facility] COMPARISON: CT CERVICAL SPINE W/O CONTRAST, June 09, 2017, 14:56. INDICATIONS : Fell twice yesterday. Recent cervical fracture, evaluate for stability. RADIATION DOSE: 24.27 CTDIvol (mGy) MEDICAL HISTORY : Cerebrovascular disease. Hypertension. Cervical fracture. SURGICAL HISTORY : Fusion, cervical. ENCOUNTER: Initial ACUITY: 1 day PAIN SCALE: 6/10 LOCATION: neck TECHNIQUE: Volumetric scanning of the cervical spine was performed. Multiplanar reconstructions in the sagittal, coronal and oblique axial planes were performed. Using automated exposure control and adjustment o f the mA and/or kV according to patient size, radiation dose was kept as low as reasonably achievable to obtain optimal diagnostic quality images. DICOM format image data is available electronically f or review and comparison. FINDINGS: Prior CT in June 2017 demonstrated a displaced chip fracture of the anterior inferior endplate of C 6. There has been interval surgery with placement of anterior cervical plate at C6 and C7 with ortho topic position bone plug. There is some heterotopic ossification anteriorly and to the left at the C . 5/6 level. Vertebral body height is maintained. No evidence of spondylolisthesis. The atlantoaxi al articulation is intact. The posterior elements are normal without evidence of locked or perched f acets. No evidence of acute fracture. The bony neural foramen is narrowed on the left side at C6-7, similar to prior. CONCLUSION: Postsurgical changes from anterior cervical plate at C6-7. No evidence of compression deformity or s pondylolisthesis. Arun Regan MD on September 02, 2017 at 13:45 Board Certified Radiologist. This report was verified electronically.
[2017-09-03] VITALS (8 sets, daily range): BP systolic 79–105; BP diastolic 53–82; PULSE 63–92; RESP 16–20; TEMP 97.3–98.5; O2SAT 90–96
[2017-09-03] MEDS: ACETAMINOPHEN 325 MG TAB PO PRN (01:24)
[2017-09-03] MEDS: QUEtiapine FUMARATE 25 MG TAB PO SCH ×3 (06:13→21:01)
[2017-09-03] MEDS: FLUoxetine HCL 20 MG CAP PO SCH (08:13)
[2017-09-03] MEDS: VALPROIC ACID 250 MG CAP PO SCH ×2 (08:15→21:02)
[2017-09-03] MEDS: LISINOPRIL 10 MG TAB PO SCH (08:16)
[2017-09-03] MEDS: LEVOFLOXACIN 250 MG TAB PO SCH (12:05)
--- NOTE | 2017-09-03 13:11 | HHI.PR ---
Subjective Remarks Patient seen and examined today for follow-up on unsafe discharge due to cognition. Patient denies any complaints. Very eager to go home. States that she plans to stay with her and in [facility] Later in the afternoon, nursing staff notified me that the patient blood pressure has been running low throughout the day, blood pressure medications have been held. O2 saturation dropped to 89%. Objective Vitals Vital Signs Date Time Temp Pulse Resp B/P (MAP) Pulse Ox O2 Delivery O2 Flow Rate FiO2 09/03/17 11:58 97.3 92 20 104/69 (81) 92 09/03/17 02:43 18 09/02/17 20:00 96.7 77 20 110/82 (91) 98 I/O 09/02/17 09/02/17 09/02/17 09/03/17 09/03/17 09/03/17 07:00 15:00 23:00 07:00 15:00 23:00 Intake Total 120 ml 620 ml Output Total 100 ml Balance 120 ml 520 ml Intake Oral 120 ml 620 ml Output Urine Total 100 ml # Voids 6 2 # Bowel Movements 0 Result Diagram: 09/02/17 1030 09/02/17 1030 Objective Remarks GENERAL: Well-developed, well-nourished, in no acute distress. alert and orientated waxes and wanes daily HEENT: Head is normocephalic without any lesions or masses noted. Facial features are symmetric. Eyes: Extraocular muscles are intact. Conjunctivae were clear. NECK: C-collar in on table at bedside CARDIAC: Regular rhythm, regular rate. S1/S2 are heard. No murmurs gallops or rubs. LUNGS: Clear to auscultation bilaterally. No wheeze, rhonchi or rales. No use of accessory muscles on inspiration or expiration. ABDOMEN: Soft, nontender. Nondistended. Bowel sounds heard in all 4 quadrants. No organomegaly or masses. Negative rebound, negative guarding EXTREMITIES: No edema, pulses are equal bilaterally. No cyanosis or clubbing NEUROLOGY: Mood and affect appear appropriate. Cranial nerves II through XII grossly intact moving all extremities, speech is clear Urinary Catheter: No Vascular Central Line Catheter: No A/P Assessment and Plan Low blood pressure with mild hypoxia Continue to hold blood pressure medication Give normal saline bolus 500 cc, continue IV fluids at 100 cc per hour Chest x-ray was performed and reviewed that indicated mild edema with atelectasis Urinary tract infection Patient started on Levaquin 250 mg by mouth daily Continue monitor culture for appropriate antibiotics Fall with standing Patient with symptoms of increased urinary frequency Patient indicates that she stood up and she fell backwards without any head trauma CBC, BMP were unremarkable Urinalysis did have bacteria, however this was contaminated. Will await culture. In meantime will start Levaquin 250 mg daily for 3 days Orthostatic vitals were normal CT scan of the neck did not indicate any acute abnormality. Inability to care for self, unsafe discharge due to cognition Initially he was indicated patient cannot walk, patient is walking at this time, PT and OT recommending supervision at home for safety Speech therapy following the patient intermittently for cognitive evaluations. 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 MIni mental state 28/30, recommended avoid antipsychotics for benzodiazepine. Recommending Depakote or carbamazepine Patient is medically stable for discharge, however due to underlying psychiatric/cognition patient is unsafe discharge until arrangements made by case management Case management for discharge planning Neuropsychiatry evaluated the patient recommended patient may improve with treatment, however indicates avoid benzodiazepines and antipsychotics Continue Prozac 40 mg daily Depakene 500 mg twice daily Seroquel 25 mg every 8 hours *Discussed with psychiatry again today about patient's cognition issues. He plans on reevaluate the patient today. He believes that he will need to get ethics committee involved Multiple traumatic injuries, Patient laceration, subdural hemorrhage, ventricular hemorrhage, nasal fracture, C6 fracture, C1-C2 subluxation, C4 transverse process fracture, right rib fracture, L1 transverse process fracture, right pubic rami fracture Continue c-collar this time, however patient does not wear Specialist no longer following patient, patient will require outpatient follow-up if discharge Hypertension, blood pressure was elevated likely secondary to discontinuation of Xanax Amlodipine 10 mg daily Lisinopril 10 mg twice daily DVT prevention Patient ambulating Sequential compression devices while in bed Discharge Planning Case management for discharge planning Conrado Mariee Sep 03, 2017 13:11
--- NOTE | 2017-09-03 13:21 | HHI.PYPN ---
Subjective Remarks The patient is revisited today for psychiatric reevaluation, case was discussed with primary medical team and concern about safe discharge was raised. Patient is found sleeping, but arousable, she is as usual calm, cooperative and pleasant. She recognized me from previous encounters "you are the psychiatrist ". Reports okay mood, she denies symptomatology of depression, denies hopelessness, denies helplessness, denies worthlessness, dystonia, lack of sleep or appetite. She denies suicidal and homicidal ideation, she denies visual and auditory hallucinations. Patient is logical, coherent and relevant, no paranoia, no delusions, no agitation or hostility present. In terms of cognition, she is fully oriented 3, no fluctuation of consciousness, no attention deficit. Folstein MMS was repeated today with a score of: 29/30: Patient has 10/10 in orientation. 3/3 registration. 1/3 in recall. 5/5 in attention and calculation. 3/3 language. 6/6 executive function. However, the patient is unable to express a consisting and logical choice and plan about her discharge. She says that she will go live with an aunt and to her home, but she does n not remember where they live and gave via telephone number, [phone], where nobody in the house knows the patient. Review of Systems Except as stated in HPI: all other systems reviewed are Neg Mental Status Examination Appearance: Appropriate Consciousness: Alert Orientation: x4, Person, Place Motor Activity: Normal gait Speech: Unremarkable Language: Adequate Fund of Knowledge: Adequate Attention and Concentration: Adequate Memory: Unremarkable Mood: Appropriate Affect: Appropriate Thought Process & Associations: Intact Thought Content: Appropriate Hallucination Type: None Delusion Type: None Suicidal Ideation: No Suicidal Plan: No Suicidal Intention: No Homicidal Ideation: No Homicidal Plan: No Homicidal Intention: No Insight: Adequate Judgment: Adequate Results Labs Date/Time Source Procedure Growth Status 09/02/17 10:35 Urine Clean Catch Urine Culture - Preliminary Gram Negative Khadar Resulted Vitals/IOs Vital Signs Date Time Temp Pulse Resp B/P (MAP) Pulse Ox O2 Delivery O2 Flow Rate FiO2 09/03/17 11:58 97.3 92 20 104/69 (81) 92 Assessment & Plan Problem List: (1) 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 Patient denies suicidal and homicidal ideation, patient denies visual and auditory hallucinations. No objective symptoms of paranoia, delusions, flight of ideas, delusions of reference, thought insertion are elicited. Patient is oriented 3 , no fluctuation of consciousness, no attention deficit. Patient seems to have a quite conserved cognitive function, but she fails consistently in expressing a logical, or even a reliable choice in terms of discharge planning, and there is a huge concern that given the patient baseline fluctuation of consciousness, she would be able to survive independently in the community. For this reason I judged the patient lacks capacity to signing AMA to participate in her discharge plan. However, at this point per recommendation would be to invite the ethic committed to the hospital have an open discussion about this particular case. (2) Adjustment disorder with depressed mood ICD Codes: F43.21 - Adjustment disorder with depressed mood Assessment & Plan Estimated LOS: days Justification for Cont. Inpt. patient does not meet criteria for psychiatric admission. Nilton Nelson MD Sep 03, 2017 13:21
[2017-09-03] MEDS ORDERED: SODIUM CHLOR 0.9% 1000 ML INJ 1,000 ML IV ONE (16:45)
[2017-09-03] MEDS ORDERED: RESP: ALBUTEROL 2.5 MG/IPRATROPIUM 0.5 MG NEB (PRN) NEB (17:00)
--- NOTE | 2017-09-03 18:07 | RADRPT ---
EXAM DATE/TIME: 09/03/2017 17:02 [facility] COMPARISON: No previous studies available for comparison. INDICATIONS : Shortness of breath. MEDICAL HISTORY : Cerebrovascular disease. Hypertension. Cervical fracture SURGICAL HISTORY : Fusion, cervical. ENCOUNTER: Initial ACUITY: 1 day PAIN SCORE: 2/10 LOCATION: Bilateral chest FINDINGS: Subsegmental airspace disease at the bases characteristic of atelectasis. Mild edema pattern There is mild cardiomegaly. No effusion or pneumothorax. Previous fusion lower cervical spine. 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 CONCLUSION: 1. Mild edema pattern. Subsegmental basilar airspace disease most characteristic of atelectasis.. Fadi Carolina MD on September 03, 2017 at 18:01 Board Certified Radiologist. This report was verified electronically.
[2017-09-03] MEDS: SODIUM CHLOR 0.9% 1000 ML INJ 1,000 ML IV SCH (19:01)
[2017-09-04] VITALS: O2SAT 93
[2017-09-04] MEDS: SODIUM CHLOR 0.9% 1000 ML INJ 1,000 ML IV SCH (03:27)
[2017-09-04] MEDS: QUEtiapine FUMARATE 25 MG TAB PO SCH ×3 (06:09→21:00)
[2017-09-04 07:07] LABS: AUTOMATED NEUTROPHIL # 4.2 TH/MM3 (1.8-7.7); BASOPHIL % 0.3 % (0.0-2.0); EOSINOPHIL # 0.3 TH/MM3 (0-0.4); HEMATOCRIT 33.1 % (35.0-46.0); HEMOGLOBIN 10.7 GM/DL (11.6-15.3); LYMPHOCYTE # 1.4 TH/MM3 (1.0-4.8); MEAN CELL VOLUME 91.5 FL (80.0-100.0); MEAN CORPUSCULAR HEMOGLOBIN 29.7 PG (27.0-34.0); MEAN CORPUSCULAR HGB CONC 32.5 % (32.0-36.0); MEAN PLATELET VOLUME 7.2 FL (7.0-11.0); MONO % 12.1 % (0.0-8.0); MONOCYTE # 0.8 TH/MM3 (0-0.9); NEUT % 63.6 % (16.0-70.0); PLATELET COUNT 186 TH/MM3 (150-450); RED BLOOD COUNT 3.62 MIL/MM3 (4.00-5.30); RED CELL DISTRIBUTION WIDTH 12.5 % (11.6-17.2); WHITE BLOOD COUNT 6.8 TH/MM3 (4.0-11.0)
[2017-09-04 07:22] LABS: CALCIUM 8.6 MG/DL (8.5-10.1)
[2017-09-04 07:23] LABS: BICARBONATE 27.8 MEQ/L (21.0-32.0)
[2017-09-04 07:26] LABS: CREATININE 0.7 MG/DL (0.50-1.00)
[2017-09-04 08:00] VITALS: BP 122/63; PULSE 64; RESP 18; TEMP 96.8; O2SAT 94
[2017-09-04] MEDS: VALPROIC ACID 250 MG CAP PO SCH ×2 (09:00→21:00)
[2017-09-04] MEDS: FLUoxetine HCL 20 MG CAP PO SCH (09:00)
--- NOTE | 2017-09-04 09:49 | HHI.PR ---
Subjective Remarks Patient seen and examined today for follow-up on low blood pressure, low O2 saturations. Patient much improved at this time. She is no longer requiring oxygen for O2 saturations. Blood pressure has improved. Patient indicates that she just been feeling weak lately, not getting out of bed and walking as much as she did before Objective Vitals Vital Signs Date Time Temp Pulse Resp B/P (MAP) Pulse Ox O2 Delivery O2 Flow Rate FiO2 09/04/17 08:00 96.8 64 18 122/63 (82) 94 09/04/17 00:00 93 21 09/03/17 21:40 96 21 09/03/17 19:00 97.9 63 16 103/69 (80) 96 09/03/17 17:53 96 Nasal Cannula 2.00 09/03/17 16:37 98.5 66 17 98/82 (87) 90 09/03/17 15:50 98.0 92 20 79/62 (68) 91 09/03/17 14:32 105/72 (83) 09/03/17 11:58 97.3 92 20 104/69 (81) 92 I/O 09/03/17 09/03/17 09/03/17 09/04/17 09/04/17 09/04/17 07:00 15:00 23:00 07:00 15:00 23:00 Intake Total 1461 ml 300 ml Output Total 500 ml Balance 961 ml 300 ml Intake Oral 461 ml 300 ml IV Total 1000 ml Output Urine Total 500 ml # Voids 2 # Bowel Movements 0 0 Result Diagram: 09/04/17 0607 09/04/17606 Objective Remarks GENERAL: Well-developed, well-nourished, in no acute distress. alert and orientated waxes and wanes daily HEENT: Head is normocephalic without any lesions or masses noted. Facial features are symmetric. Eyes: Extraocular muscles are intact. Conjunctivae were clear. NECK: C-collar in on table at bedside CARDIAC: Regular rhythm, regular rate. S1/S2 are heard. No murmurs gallops or rubs. LUNGS: Clear to auscultation bilaterally. No wheeze, rhonchi or rales. No use of accessory muscles on inspiration or expiration. ABDOMEN: Soft, nontender. Nondistended. Bowel sounds heard in all 4 quadrants. No organomegaly or masses. Negative rebound, negative guarding EXTREMITIES: No edema, pulses are equal bilaterally. No cyanosis or clubbing NEUROLOGY: Mood and affect appear appropriate. Cranial nerves II through XII grossly intact moving all extremities, speech is clear Urinary Catheter: No Vascular Central Line Catheter: No A/P Assessment and Plan Low blood pressure with mild hypoxia, improved Continue to hold blood pressure medication Give normal saline bolus 500 cc, Discontinue IV fluids at 100 cc per hour Chest x-ray was performed and reviewed that indicated mild edema with atelectasis Urinary tract infection Continue on Levaquin 250 mg by mouth daily Urine culture shows Escherichia coli which is sensitive to fluoroquinolones Fall with standing Patient with symptoms of increased urinary frequency Patient indicates that she stood up and she fell backwards without any head trauma CBC, BMP were unremarkable Patient was diagnosed with urinary tract infection Orthostatic vitals were normal CT scan of the neck did not indicate any acute abnormality. Inability to care for self, unsafe discharge due to cognition Initially he was indicated patient cannot walk, patient is walking at this time, PT and OT recommending supervision at home for safety Speech therapy following the patient intermittently for cognitive evaluations. 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 MIni mental state 28/30, recommended avoid antipsychotics for benzodiazepine. Recommending Depakote or carbamazepine Patient is medically stable for discharge, however due to underlying psychiatric/cognition patient is unsafe discharge until arrangements made by case management Case management for discharge planning Neuropsychiatry evaluated the patient recommended patient may improve with treatment, however indicates avoid benzodiazepines and antipsychotics Continue Prozac 40 mg daily Depakene 500 mg twice daily Seroquel 25 mg every 8 hours *Discussed with psychiatry again today about patient's cognition issues. He plans on reevaluate the patient today. He believes that he will need to get ethics committee involved Multiple traumatic injuries, Patient laceration, subdural hemorrhage, ventricular hemorrhage, nasal fracture, C6 fracture, C1-C2 subluxation, C4 transverse process fracture, right rib fracture, L1 transverse process fracture, right pubic rami fracture Continue c-collar this time, however patient does not wear Specialist no longer following patient, patient will require outpatient follow-up if discharge Hypertension, blood pressure was elevated likely secondary to discontinuation of Xanax Amlodipine 10 mg daily Lisinopril 10 mg twice daily DVT prevention Patient ambulating Sequential compression devices while in bed Discharge Planning Case management for discharge planning Conrado Mariee Sep 04, 2017 09:49
[2017-09-04] MEDS ORDERED: SODIUM CHLORIDE 0.9% FLUSH 10 ML FLUSH IV FLUSH PRN (10:00)
[2017-09-04] MEDS: LEVOFLOXACIN 250 MG TAB PO SCH (11:00)
[2017-09-04] MEDS ORDERED: LEVOFLOXACIN 250 MG TAB PO SCH (13:35)
[2017-09-04 19:45] VITALS: O2SAT 94
[2017-09-04 20:00] VITALS: BP 156/80; PULSE 63; RESP 16; TEMP 98; O2SAT 94
[2017-09-04 20:52] VITALS: BP 138/85
[2017-09-04] MEDS: SODIUM CHLORIDE 0.9% FLUSH 10 ML FLUSH IV FLUSH SCH (21:00)
[2017-09-05] MEDS: QUEtiapine FUMARATE 25 MG TAB PO SCH ×3 (06:26→21:33)
[2017-09-05 06:46] VITALS: BP 147/85
[2017-09-05] MEDS: FLUoxetine HCL 20 MG CAP PO SCH (09:00)
[2017-09-05] MEDS: VALPROIC ACID 250 MG CAP PO SCH ×2 (09:00→21:00)
[2017-09-05] MEDS: SODIUM CHLORIDE 0.9% FLUSH 10 ML FLUSH IV FLUSH SCH ×2 (09:00→21:34)
--- NOTE | 2017-09-05 09:20 | HHI.PR ---
Subjective Remarks Patient seen and examined today for follow-up on unsafe discharge due to cognition. Patient doing much better. Blood pressure has improved. O2 saturations improved. Patient denies any complaints Objective Vitals Vital Signs Date Time Temp Pulse Resp B/P (MAP) Pulse Ox O2 Delivery O2 Flow Rate FiO2 09/05/17 06:46 147/85 (105) 09/04/17 20:52 138/85 (102) 09/04/17 20:00 98.0 63 16 156/80 (105) 94 09/04/17 19:45 94 21 I/O 09/04/17 09/04/17 09/04/17 09/05/17 09/05/17 09/05/17 07:00 15:00 23:00 07:00 15:00 23:00 Intake Total 300 ml 1850 ml Output Total 1000 ml Balance 300 ml 1850 ml -1000 ml Intake Oral 300 ml 550 ml IV Total 1300 ml Output Urine Total 1000 ml # Voids 2 3 3 # Bowel Movements 0 1 Result Diagram: 09/04/1760609/04/1707 Objective Remarks GENERAL: Well-developed, well-nourished, in no acute distress. alert and orientated waxes and wanes daily HEENT: Head is normocephalic without any lesions or masses noted. Facial features are symmetric. Eyes: Extraocular muscles are intact. Conjunctivae were clear. NECK: C-collar in on table at bedside CARDIAC: Regular rhythm, regular rate. S1/S2 are heard. No murmurs gallops or rubs. LUNGS: Clear to auscultation bilaterally. No wheeze, rhonchi or rales. No use of accessory muscles on inspiration or expiration. ABDOMEN: Soft, nontender. Nondistended. Bowel sounds heard in all 4 quadrants. No organomegaly or masses. Negative rebound, negative guarding EXTREMITIES: No edema, pulses are equal bilaterally. No cyanosis or clubbing NEUROLOGY: Mood and affect appear appropriate. Cranial nerves II through XII grossly intact moving all extremities, speech is clear Urinary Catheter: No Vascular Central Line Catheter: No A/P Assessment and Plan Low blood pressure with mild hypoxia, resolved Status post saline bolus 500 cc, Discontinue IV fluids at 100 cc per hour Chest x-ray was performed and reviewed that indicated mild edema with atelectasis Started incentive spirometry Urinary tract infection Completed Levaquin 250 mg by mouth daily Urine culture shows Escherichia coli which is sensitive to fluoroquinolones Fall with standing Patient with symptoms of increased urinary frequency Patient indicates that she stood up and she fell backwards without any head trauma CBC, BMP were unremarkable Patient was diagnosed with urinary tract infection Orthostatic vitals were normal CT scan of the neck did not indicate any acute abnormality. Inability to care for self, unsafe discharge due to cognition Initially he was indicated patient cannot walk, patient is walking at this time, PT and OT recommending supervision at home for safety Speech therapy following the patient intermittently for cognitive evaluations. 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 MIni mental state 28/30, recommended avoid antipsychotics for benzodiazepine. Recommending Depakote or carbamazepine Patient is medically stable for discharge, however due to underlying psychiatric/cognition patient is unsafe discharge until arrangements made by case management Case management for discharge planning Neuropsychiatry evaluated the patient recommended patient may improve with treatment, however indicates avoid benzodiazepines and antipsychotics Continue Prozac 40 mg daily Depakene 500 mg twice daily Seroquel 25 mg every 8 hours *Discussed with psychiatry again about patient's cognition issues. He indicated that the patient lacks capacity for signing AMA or to participate in discharge plan. He is recommending that he would invite the ethics committee to the hospital to have a discussion about patient care Multiple traumatic injuries, Patient laceration, subdural hemorrhage, ventricular hemorrhage, nasal fracture, C6 fracture, C1-C2 subluxation, C4 transverse process fracture, right rib fracture, L1 transverse process fracture, right pubic rami fracture Continue c-collar this time, however patient does not wear Specialist no longer following patient, patient will require outpatient follow-up if discharge Hypertension, Resume Amlodipine 10 mg daily Continue to hold Lisinopril 10 mg twice daily DVT prevention Patient ambulating Sequential compression devices while in bed Discharge Planning Case management for discharge planning Conrado Mariee Sep 05, 2017 09:19
[2017-09-05 12:00] VITALS: BP 120/69; PULSE 63; RESP 18; TEMP 97.6; O2SAT 94
[2017-09-05 20:02] VITALS: O2SAT 98
[2017-09-05 21:43] VITALS: BP 135/81; PULSE 62; RESP 16; TEMP 98.1; O2SAT 94
[2017-09-06] MEDS: QUEtiapine FUMARATE 25 MG TAB PO SCH ×3 (06:06→20:28)
[2017-09-06 08:00] VITALS: BP 139/86; PULSE 60; RESP 12; TEMP 97.7; O2SAT 92
[2017-09-06] MEDS: SODIUM CHLORIDE 0.9% FLUSH 10 ML FLUSH IV FLUSH SCH ×2 (09:00→20:28)
[2017-09-06] MEDS: amLODIPine BESYLATE 5 MG TAB PO SCH (09:03)
[2017-09-06] MEDS: FLUoxetine HCL 20 MG CAP PO SCH (09:03)
[2017-09-06] MEDS: VALPROIC ACID 250 MG CAP PO SCH ×2 (09:04→20:28)
--- NOTE | 2017-09-06 09:40 | HHI.PR ---
Subjective Remarks Patient seen and examined today for follow-up on unsafe discharge due to cognition. Patient denies any new complaints. No change in clinical status. Awaiting case management for discharge planning Objective Vitals Vital Signs Date Time Temp Pulse Resp B/P (MAP) Pulse Ox O2 Delivery O2 Flow Rate FiO2 09/05/17 21:43 98.1 62 16 135/81 (99) 94 09/05/17 20:02 98 21 09/05/17 12:00 97.6 63 18 120/69 (86) 94 I/O 09/05/17 09/05/17 09/05/17 09/06/17 09/06/17 09/06/17 07:00 15:00 23:00 07:00 15:00 23:00 Intake Total 750 ml 300 ml Output Total 1000 ml Balance -1000 ml 750 ml 300 ml Intake Oral 750 ml 300 ml Output Urine Total 1000 ml # Voids 3 2 3 4 # Bowel Movements 1 1 0 Result Diagram: 09/04/1760609/04/17606 Objective Remarks GENERAL: Well-developed, well-nourished, in no acute distress. alert and orientated waxes and wanes daily HEENT: Head is normocephalic without any lesions or masses noted. Facial features are symmetric. Eyes: Extraocular muscles are intact. Conjunctivae were clear. NECK: C-collar in on table at bedside CARDIAC: Regular rhythm, regular rate. S1/S2 are heard. No murmurs gallops or rubs. LUNGS: Clear to auscultation bilaterally. No wheeze, rhonchi or rales. No use of accessory muscles on inspiration or expiration. ABDOMEN: Soft, nontender. Nondistended. Bowel sounds heard in all 4 quadrants. No organomegaly or masses. Negative rebound, negative guarding EXTREMITIES: No edema, pulses are equal bilaterally. No cyanosis or clubbing NEUROLOGY: Mood and affect appear appropriate. Cranial nerves II through XII grossly intact moving all extremities, speech is clear Urinary Catheter: No Vascular Central Line Catheter: No A/P Assessment and Plan Inability to care for self, unsafe discharge due to cognition Initially he was indicated patient cannot walk, patient is walking at this time, PT and OT recommending supervision at home for safety Speech therapy following the patient intermittently for cognitive evaluations. 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 MIni mental state 28/30, recommended avoid antipsychotics for benzodiazepine. Recommending Depakote or carbamazepine Patient is medically stable for discharge, however due to underlying psychiatric/cognition patient is unsafe discharge until arrangements made by case management Case management for discharge planning Neuropsychiatry evaluated the patient recommended patient may improve with treatment, however indicates avoid benzodiazepines and antipsychotics Continue Prozac 40 mg daily Depakene 500 mg twice daily Seroquel 25 mg every 8 hours *Discussed with psychiatry again about patient's cognition issues. He indicated that the patient lacks capacity for signing AMA or to participate in discharge plan. He is recommending that he would invite the ethics committee to the hospital to have a discussion about patient care *Consulted case management for ethics committee review, awaiting response Low blood pressure with mild hypoxia, resolved Status post saline bolus 500 cc, Discontinue IV fluids at 100 cc per hour Chest x-ray was performed and reviewed that indicated mild edema with atelectasis Continue incentive spirometry Urinary tract infection, treated Completed Levaquin 250 mg by mouth daily Urine culture shows Escherichia coli which is sensitive to fluoroquinolones Multiple traumatic injuries, Patient laceration, subdural hemorrhage, ventricular hemorrhage, nasal fracture, C6 fracture, C1-C2 subluxation, C4 transverse process fracture, right rib fracture, L1 transverse process fracture, right pubic rami fracture Continue c-collar this time, however patient does not wear Specialist no longer following patient, patient will require outpatient follow-up if discharge Hypertension, Amlodipine 10 mg daily Discontinue Lisinopril 10 mg twice daily DVT prevention Patient ambulating Sequential compression devices while in bed Discharge Planning Case management for discharge planning Conrado Mariee Sep 06, 2017 09:40
[2017-09-06 20:00] VITALS: BP 123/87; PULSE 62; RESP 20; TEMP 96.7; O2SAT 92
[2017-09-06 21:30] VITALS: O2SAT 98
[2017-09-07] MEDS: QUEtiapine FUMARATE 25 MG TAB PO SCH ×3 (06:00→20:54)
[2017-09-07 07:59] VITALS: BP 129/73; PULSE 58; RESP 18; TEMP 97; O2SAT 99
[2017-09-07 08:00] VITALS: O2SAT 99
[2017-09-07] MEDS: SODIUM CHLORIDE 0.9% FLUSH 10 ML FLUSH IV FLUSH SCH ×2 (09:00→09:50)
[2017-09-07] MEDS: amLODIPine BESYLATE 5 MG TAB PO SCH (09:49)
[2017-09-07] MEDS: FLUoxetine HCL 20 MG CAP PO SCH (09:49)
[2017-09-07] MEDS: VALPROIC ACID 250 MG CAP PO SCH ×2 (09:51→20:53)
--- NOTE | 2017-09-07 09:52 | HHI.PR ---
Subjective Remarks Follow up unsafe discharge and inability to care for self, hypertension. Patient seen and examined today, sitter at bedside. Patient is asleep, awakens to voice. Alert, oriented to self, confused regarding place and time. Denies any new acute events overnight. Denies pain or any recent fever, chills, cough, headache, shortness of breath, ab pain, n/v/d or dysuria. Eating well. Ambulating well. Objective Vitals Vital Signs Date Time Temp Pulse Resp B/P (MAP) Pulse Ox O2 Delivery O2 Flow Rate FiO2 09/07/17 07:59 97.0 58 18 129/73 (91) 99 09/06/17 21:30 98 21 09/06/17 20:00 96.7 62 20 123/87 (99) 92 I/O 09/06/17 09/06/17 09/06/17 09/07/17 09/07/17 09/07/17 07:00 15:00 23:00 07:00 15:00 23:00 Intake Total 222 ml 240 ml Output Total 500 ml 1 ml Balance 222 ml -500 ml 239 ml Intake Oral 222 ml 240 ml Output Urine Total 500 ml 1 ml # Voids 4 # Bowel Movements 0 Result Diagram: 09/04/17 0607 09/04/17 0607 Imaging Last Impressions Chest X-Ray 09/03/17 0000 Signed Impressions: Service Date/Time: Sunday, September 03, 2017 17:02 - CONCLUSION: 1. Mild edema pattern. Subsegmental basilar airspace disease most characteristic of atelectasis.. Fadi Carolina MD Cervical Spine CT 09/02/17 0000 Signed Impressions: Service Date/Time: August 12:56 - CONCLUSION: Postsurgical changes from anterior cervical plate at C6-7. No evidence of compression deformity or spondylolisthesis. Arun Regan MD Pelvis X-Ray 06/30/17 0000 Signed Impressions: Service Date/Time: Friday, June 30, 2017 12:17 - CONCLUSION: No significant change has occurred. Carlos Capps MD Objective Remarks GENERAL: Well-nourished, well-developed female patient lying in bed in NAD. SKIN: Warm and dry. No rash. HEENT: Normocephalic. Atraumatic. Pupils equal and round. No scleral icterus. No injection or drainage. No nasal bleeding or discharge. Mucous membranes pink and moist. NECK: Supple. Trachea midline. CARDIOVASCULAR: Regular rate and rhythm. S1, S2 noted. No murmur appreciated. RESPIRATORY: No accessory muscle use. Clear to auscultation. Breath sounds equal bilaterally. GASTROINTESTINAL: Abdomen soft, non-tender, nondistended. Normoactive bowel sounds x4. No guarding noted. MUSCULOSKELETAL: No obvious deformities. Extremities without clubbing, cyanosis , or edema. NEUROLOGICAL: Awake and alert. No obvious cranial nerve deficits. Motor grossly within normal limits. 5/5 muscle strength in bilateral upper and lower extremities. Normal speech. PSYCHIATRIC: Appropriate mood and affect. A/P Problem List: (1) Inability to walk ICD Code: R26.2 - Difficulty in walking, not elsewhere classified Status: Acute (2) Alcohol dependence in controlled environment ICD Code: F10.20 - Alcohol dependence, uncomplicated Status: Chronic (3) Facial injury ICD Code: S09.93XA - Unspecified injury of face, initial encounter Status: Acute (4) Fall ICD Code: W19.XXXA - Unspecified fall, initial encounter Status: Acute (5) Hypertension ICD Code: I10 - Essential (primary) hypertension Status: Acute (6) Pelvic fracture ICD Code: S32.9XXA - Fracture of unspecified parts of lumbosacral spine and pelvis, initial encounter for closed fracture Status: Acute (7) C1-C2 subluxation ICD Code: S13.120A - Subluxation of C1/C2 cervical vertebrae, initial encounter Status: Acute (8) C6 cervical fracture ICD Code: S12.500A - Unspecified displaced fracture of sixth cervical vertebra , initial encounter for closed fracture Status: Acute (9) Traumatic brain injury ICD Code: S06.9X9A - Unspecified intracranial injury with loss of consciousness of unspecified duration, initial encounter Status: Acute (10) Nasal fracture ICD Code: S02.2XXA - Fracture of nasal bones, initial encounter for closed fracture Status: Acute (11) Mild neurocognitive disorder ICD Code: G31.84 - Mild cognitive impairment, so stated Status: Acute (12) Intracranial bleed ICD Code: I62.9 - Nontraumatic intracranial hemorrhage, unspecified Status: Acute Assessment and Plan Inability to care for self, unsafe discharge due to cognition Initially it was indicated patient cannot walk, patient is walking at this time, PT and OT recommending supervision at home for safety. Speech therapy following the patient intermittently for cognitive evaluations. MOCA score 24/30, she needs to have supervision. 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 Mini mental state 28/30, recommended avoid antipsychotics for benzodiazepine. Recommending Depakote or carbamazepine Neuropsychiatry evaluated the patient recommended patient may improve with treatment, however indicates avoid benzodiazepines and antipsychotics. Continue Prozac 40 mg daily Depakene 500 mg twice daily Seroquel 25 mg every 8 hours *Psychiatry has seen patient and indicated that the patient lacks capacity for signing AMA or to participate in discharge plan. Recommendations for ethics committee to the hospital and discuss patient care and plan. *Case management following and requested for ethics committee review, awaiting arrival. Low blood pressure with mild hypoxia, resolved Status post saline bolus 500 cc. IVF dc'd. Chest x-ray was performed and reviewed that indicated mild edema with atelectasis Continue incentive spirometry. Urinary tract infection, treated Completed Levaquin 250 mg by mouth daily. Urine culture shows Escherichia coli which is sensitive to fluoroquinolones. Multiple traumatic injuries Patient laceration, subdural hemorrhage, ventricular hemorrhage, nasal fracture, C6 fracture, C1-C2 subluxation, C4 transverse process fracture, right rib fracture, L1 transverse process fracture, right pubic rami fracture Continue c-collar this time, however patient does not wear. Specialist no longer following patient, patient will require outpatient follow-up if discharge. Hypertension: Stable at this time. Continue Amlodipine 10 mg daily. Continue to monitor trends. DVT prevention: SCDs. Ambulation. Discharge Planning Patient is medically stable for discharge, however due to underlying psychiatric /cognition patient is unsafe discharge until arrangements made by case management Problem Qualifiers (1) Hypertension: Qualified Codes: I10 - Essential (primary) hypertension Rohit Meansssakin RAMIREZ Sep 07, 2017 09:52
[2017-09-07 20:00] VITALS: BP 134/83; PULSE 60; RESP 20; TEMP 97.2; O2SAT 97
[2017-09-07 20:12] VITALS: O2SAT 97
[2017-09-08] MEDS: QUEtiapine FUMARATE 25 MG TAB PO SCH ×3 (06:44→22:16)
[2017-09-08 08:00] VITALS: O2SAT 94
[2017-09-08 08:09] VITALS: BP 130/80; PULSE 56; RESP 18; TEMP 96.1; O2SAT 94
[2017-09-08] MEDS: amLODIPine BESYLATE 5 MG TAB PO SCH (08:17)
[2017-09-08] MEDS: FLUoxetine HCL 20 MG CAP PO SCH (08:17)
[2017-09-08] MEDS: VALPROIC ACID 250 MG CAP PO SCH ×2 (08:23→20:13)
--- NOTE | 2017-09-08 13:46 | HHI.PR ---
Subjective Remarks Follow up unsafe discharge and inability to care for self, hypertension. Patient seen and examined today, lying in bed asleep. Awakens to voice. Sitter at bedside. Denies any new acute events overnight. States she is eating well. Showing lack of motivation to get moving and ambulate. Encouraged. Denies headache, chest pain, shortness of breath. Objective Vitals Vital Signs Date Time Temp Pulse Resp B/P (MAP) Pulse Ox O2 Delivery O2 Flow Rate FiO2 09/08/17 08:09 96.1 56 18 130/80 (97) 94 09/07/17 20:12 97 21 09/07/17 20:00 97.2 60 20 134/83 (100) 97 I/O 09/07/17 09/07/17 09/07/17 09/08/17 09/08/17 09/08/17 07:00 15:00 23:00 07:00 15:00 23:00 Intake Total 240 ml 170 ml 0 ml Output Total 1 ml 50 ml 400 ml Balance 239 ml 120 ml -400 ml Intake Oral 240 ml 120 ml 0 ml Other 50 ml Output Urine Total 1 ml 50 ml 400 ml # Voids 1 0 # Bowel Movements 0 0 Result Diagram: 09/04/17 0607 09/04/17 0607 Imaging Last Impressions Chest X-Ray 09/03/17 0000 Signed Impressions: Service Date/Time: Sunday, September 03, 2017 17:02 - CONCLUSION: 1. Mild edema pattern. Subsegmental basilar airspace disease most characteristic of atelectasis.. Fadi Carolina MD Cervical Spine CT 09/02/17 0000 Signed Impressions: Service Date/Time: August 12:56 - CONCLUSION: Postsurgical changes from anterior cervical plate at C6-7. No evidence of compression deformity or spondylolisthesis. Arun Regan MD Pelvis X-Ray 06/30/17 0000 Signed Impressions: Service Date/Time: Friday, June 30, 2017 12:17 - CONCLUSION: No significant change has occurred. Carlos Capps MD Objective Remarks GENERAL: Well-nourished, well-developed female patient lying in bed in NAD. SKIN: Warm and dry. No rash. HEENT: Normocephalic. Atraumatic. Pupils equal and round. No scleral icterus. No injection or drainage. No nasal bleeding or discharge. Mucous membranes pink and moist. NECK: Supple. Trachea midline. CARDIOVASCULAR: Regular rate and rhythm. S1, S2 noted. No murmur appreciated. RESPIRATORY: No accessory muscle use. Clear to auscultation. Breath sounds equal bilaterally. GASTROINTESTINAL: Abdomen soft, non-tender, nondistended. Normoactive bowel sounds x4. No guarding noted. MUSCULOSKELETAL: No obvious deformities. Extremities without clubbing, cyanosis , or edema. NEUROLOGICAL: Awake and alert. No obvious cranial nerve deficits. Motor grossly within normal limits. 5/5 muscle strength in bilateral upper and lower extremities. Normal speech. PSYCHIATRIC: Appropriate mood and affect. A/P Problem List: (1) Inability to walk ICD Code: R26.2 - Difficulty in walking, not elsewhere classified Status: Acute (2) Alcohol dependence in controlled environment ICD Code: F10.20 - Alcohol dependence, uncomplicated Status: Chronic (3) Facial injury ICD Code: S09.93XA - Unspecified injury of face, initial encounter Status: Acute (4) Fall ICD Code: W19.XXXA - Unspecified fall, initial encounter Status: Acute (5) Hypertension ICD Code: I10 - Essential (primary) hypertension Status: Acute (6) Pelvic fracture ICD Code: S32.9XXA - Fracture of unspecified parts of lumbosacral spine and pelvis, initial encounter for closed fracture Status: Acute (7) C1-C2 subluxation ICD Code: S13.120A - Subluxation of C1/C2 cervical vertebrae, initial encounter Status: Acute (8) C6 cervical fracture ICD Code: S12.500A - Unspecified displaced fracture of sixth cervical vertebra , initial encounter for closed fracture Status: Acute (9) Traumatic brain injury ICD Code: S06.9X9A - Unspecified intracranial injury with loss of consciousness of unspecified duration, initial encounter Status: Acute (10) Nasal fracture ICD Code: S02.2XXA - Fracture of nasal bones, initial encounter for closed fracture Status: Acute (11) Mild neurocognitive disorder ICD Code: G31.84 - Mild cognitive impairment, so stated Status: Acute (12) Intracranial bleed ICD Code: I62.9 - Nontraumatic intracranial hemorrhage, unspecified Status: Acute Assessment and Plan Inability to care for self, unsafe discharge due to cognition Initially it was indicated patient cannot walk, patient is walking at this time, PT and OT recommending supervision at home for safety. Speech therapy following the patient intermittently for cognitive evaluations. MOCA score 24/30, she needs to have supervision. 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 Mini mental state 28/30, recommended avoid antipsychotics for benzodiazepine. Recommending Depakote or carbamazepine Neuropsychiatry evaluated the patient recommended patient may improve with treatment, however indicates avoid benzodiazepines and antipsychotics. Continue Prozac 40 mg daily Depakene 500 mg twice daily Seroquel 25 mg every 8 hours *Psychiatry has seen patient and indicated that the patient lacks capacity for signing AMA or to participate in discharge plan. Recommendations for ethics committee to the hospital and discuss patient care and plan. *Case management following and requested for ethics committee review, awaiting arrival. Low blood pressure with mild hypoxia, resolved Status post saline bolus 500 cc. IVF dc'd. Chest x-ray was performed and reviewed that indicated mild edema with atelectasis Continue incentive spirometry. Urinary tract infection, treated Completed Levaquin 250 mg by mouth daily. Urine culture shows Escherichia coli which is sensitive to fluoroquinolones. Multiple traumatic injuries Patient laceration, subdural hemorrhage, ventricular hemorrhage, nasal fracture, C6 fracture, C1-C2 subluxation, C4 transverse process fracture, right rib fracture, L1 transverse process fracture, right pubic rami fracture Continue c-collar this time, however patient does not wear. Specialist no longer following patient, patient will require outpatient follow-up if discharge. Hypertension: Stable at this time. Continue Amlodipine 10 mg daily. Continue to monitor trends. DVT prevention: SCDs. Ambulation. Discharge Planning Patient is medically stable for discharge, however due to underlying psychiatric /cognition patient is unsafe discharge until arrangements made by case management Problem Qualifiers (1) Hypertension: Qualified Codes: I10 - Essential (primary) hypertension Alyssa Means Sep 08, 2017 13:46
[2017-09-08 20:00] VITALS: BP 128/72; PULSE 71; RESP 18; TEMP 96.7; O2SAT 96
[2017-09-08 20:11] VITALS: O2SAT 92
[2017-09-09] MEDS: QUEtiapine FUMARATE 25 MG TAB PO SCH ×3 (05:46→21:21)
[2017-09-09 08:00] VITALS: BP 145/88; PULSE 54; RESP 16; TEMP 96.6; O2SAT 94
[2017-09-09] MEDS: amLODIPine BESYLATE 5 MG TAB PO SCH (08:41)
[2017-09-09] MEDS: FLUoxetine HCL 20 MG CAP PO SCH (08:41)
[2017-09-09] MEDS: VALPROIC ACID 250 MG CAP PO SCH ×2 (08:41→21:21)
--- NOTE | 2017-09-09 08:42 | HHI.PR ---
Subjective Remarks Follow up unsafe discharge and inability to care for self, hypertension. Patient assessed, sitting on side of bed eating breakfast. Patient more awake today. Pleasant. Alert and oriented, with confusion to situation, states she is going to go work at [employer] today. Follows commands appropriately. Sitter at bedside. No new acute events overnight. Spoke to RN at bedside. Objective Vitals Vital Signs Date Time Temp Pulse Resp B/P (MAP) Pulse Ox O2 Delivery O2 Flow Rate FiO2 09/09/17 08:05 21 09/08/17 20:11 92 21 09/08/17 20:00 96.7 71 18 128/72 (90) 96 I/O 09/08/17 09/08/17 09/08/17 09/09/17 09/09/17 09/09/17 07:00 15:00 23:00 07:00 15:00 23:00 Intake Total 0 ml 0 ml 480 ml Output Total 400 ml Balance -400 ml 0 ml 480 ml Intake Oral 0 ml 480 ml IV Total 0 ml Output Urine Total 400 ml # Voids 0 3 # Bowel Movements 0 0 Imaging Last Impressions Chest X-Ray 09/03/17 0000 Signed Impressions: Service Date/Time: Sunday, September 03, 2017 17:02 - CONCLUSION: 1. Mild edema pattern. Subsegmental basilar airspace disease most characteristic of atelectasis.. Fadi Carolina MD Cervical Spine CT 09/02/17 0000 Signed Impressions: Service Date/Time: August 12:56 - CONCLUSION: Postsurgical changes from anterior cervical plate at C6-7. No evidence of compression deformity or spondylolisthesis. Arun Regan MD Pelvis X-Ray 06/30/17 0000 Signed Impressions: Service Date/Time: Friday, June 30, 2017 12:17 - CONCLUSION: No significant change has occurred. Carlos Capps MD Objective Remarks GENERAL: Well-nourished, well-developed female sitting on side of bed in NAD. SKIN: Warm and dry. No rash. HEENT: Normocephalic. Atraumatic. Pupils equal and round. No scleral icterus. No injection or drainage. No nasal bleeding or discharge. Mucous membranes pink and moist. NECK: Supple. Trachea midline. CARDIOVASCULAR: Regular rate and rhythm. S1, S2 noted. No murmur appreciated. RESPIRATORY: No accessory muscle use. Clear to auscultation. Breath sounds equal bilaterally. GASTROINTESTINAL: Abdomen soft, non-tender, nondistended. Normoactive bowel sounds x4. No guarding noted. MUSCULOSKELETAL: No obvious deformities. Extremities without clubbing, cyanosis , or edema. NEUROLOGICAL: Awake and alert. No obvious cranial nerve deficits. Motor grossly within normal limits. 5/5 muscle strength in bilateral upper and lower extremities. Normal speech. PSYCHIATRIC: Appropriate mood and affect. A/P Problem List: (1) Inability to walk ICD Code: R26.2 - Difficulty in walking, not elsewhere classified Status: Acute (2) Alcohol dependence in controlled environment ICD Code: F10.20 - Alcohol dependence, uncomplicated Status: Chronic (3) Facial injury ICD Code: S09.93XA - Unspecified injury of face, initial encounter Status: Acute (4) Fall ICD Code: W19.XXXA - Unspecified fall, initial encounter Status: Acute (5) Hypertension ICD Code: I10 - Essential (primary) hypertension Status: Acute (6) Pelvic fracture ICD Code: S32.9XXA - Fracture of unspecified parts of lumbosacral spine and pelvis, initial encounter for closed fracture Status: Acute (7) C1-C2 subluxation ICD Code: S13.120A - Subluxation of C1/C2 cervical vertebrae, initial encounter Status: Acute (8) C6 cervical fracture ICD Code: S12.500A - Unspecified displaced fracture of sixth cervical vertebra , initial encounter for closed fracture Status: Acute (9) Traumatic brain injury ICD Code: S06.9X9A - Unspecified intracranial injury with loss of consciousness of unspecified duration, initial encounter Status: Acute (10) Nasal fracture ICD Code: S02.2XXA - Fracture of nasal bones, initial encounter for closed fracture Status: Acute (11) Mild neurocognitive disorder ICD Code: G31.84 - Mild cognitive impairment, so stated Status: Acute (12) Intracranial bleed ICD Code: I62.9 - Nontraumatic intracranial hemorrhage, unspecified Status: Acute Assessment and Plan Inability to care for self, unsafe discharge due to cognition Initially it was indicated patient cannot walk, patient is walking at this time, PT and OT recommending supervision at home for safety. Speech therapy following the patient intermittently for cognitive evaluations. MOCA score 24/30, she needs to have supervision. 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 Mini mental state 28/30, recommended avoid antipsychotics for benzodiazepine. Recommending Depakote or carbamazepine Neuropsychiatry evaluated the patient recommended patient may improve with treatment, however indicates avoid benzodiazepines and antipsychotics. Continue Prozac 40 mg daily Depakene 500 mg twice daily Seroquel 25 mg every 8 hours *Psychiatry has seen patient and indicated that the patient lacks capacity for signing AMA or to participate in discharge plan. Recommendations for ethics committee to the hospital and discuss patient care and plan. *Case management following and requested for ethics committee review, awaiting arrival. Low blood pressure with mild hypoxia, resolved. BP now stable and controlled. Monitor BP trends. Denies any dyspnea. Status post saline bolus 500 cc. IVF dc'd. Chest x-ray was performed and reviewed that indicated mild edema with atelectasis Continue incentive spirometry. Urinary tract infection, treated. - Denies any dysuria or urinary complaints. Completed Levaquin 250 mg by mouth daily. Urine culture shows Escherichia coli which is sensitive to fluoroquinolones. Multiple traumatic injuries Patient laceration, subdural hemorrhage, ventricular hemorrhage, nasal fracture, C6 fracture, C1-C2 subluxation, C4 transverse process fracture, right rib fracture, L1 transverse process fracture, right pubic rami fracture Continue c-collar this time, however patient does not wear. Specialist no longer following patient, patient will require outpatient follow-up if discharge. Hypertension: Stable at this time. Continue Amlodipine 10 mg daily. Continue to monitor trends. DVT prevention: SCDs. Ambulation. Discharge Planning Patient is medically stable for discharge, however due to underlying psychiatric /cognition patient is unsafe discharge until arrangements made by case management Problem Qualifiers (1) Hypertension: Qualified Codes: I10 - Essential (primary) hypertension Alyssa Means Sep 09, 2017 08:42
[2017-09-09 20:00] VITALS: BP 135/82; PULSE 61; RESP 20; TEMP 97.3; O2SAT 91
[2017-09-10] MEDS: QUEtiapine FUMARATE 25 MG TAB PO SCH ×3 (05:59→21:31)
[2017-09-10 08:00] VITALS: BP 118/59; PULSE 68; RESP 16; TEMP 96.8; O2SAT 94
[2017-09-10] MEDS: FLUoxetine HCL 20 MG CAP PO SCH (09:38)
[2017-09-10] MEDS: amLODIPine BESYLATE 5 MG TAB PO SCH (09:38)
[2017-09-10] MEDS: VALPROIC ACID 250 MG CAP PO SCH ×2 (09:38→21:32)
[2017-09-10 11:00] VITALS: O2SAT 99
--- NOTE | 2017-09-10 12:04 | HHI.PR ---
Subjective Remarks Follow up unsafe discharge and inability to care for self, hypertension. Patient seen and examined. Lying in bed sleeping, in no apparent distress. Sitter at bedside. Patient is not sleeping well at night and sleeping most of the day. Encouraged to get out of bed and ambulate, attempt to stay awake during the day. Denies any new acute complaints. Eating well. Objective Vitals Vital Signs Date Time Temp Pulse Resp B/P (MAP) Pulse Ox O2 Delivery O2 Flow Rate FiO2 09/10/17 08:00 96.8 68 16 118/59 (78) 94 09/09/17 20:00 97.3 61 20 135/82 (99) 91 I/O 09/09/17 09/09/17 09/09/17 09/10/17 09/10/17 09/10/17 07:00 15:00 23:00 07:00 15:00 23:00 Intake Total 480 ml 120 ml 600 ml 120 ml Balance 480 ml 120 ml 600 ml 120 ml Intake Oral 480 ml 120 ml 600 ml 120 ml # Voids 3 5 3 # Bowel Movements 0 1 0 Imaging Last Impressions Chest X-Ray 09/03/17 0000 Signed Impressions: Service Date/Time: Sunday, September 03, 2017 17:02 - CONCLUSION: 1. Mild edema pattern. Subsegmental basilar airspace disease most characteristic of atelectasis.. Fadi Carolina MD Cervical Spine CT 09/02/17 0000 Signed Impressions: Service Date/Time: August 12:56 - CONCLUSION: Postsurgical changes from anterior cervical plate at C6-7. No evidence of compression deformity or spondylolisthesis. Arun Regan MD Pelvis X-Ray 06/30/17 0000 Signed Impressions: Service Date/Time: Friday, June 30, 2017 12:17 - CONCLUSION: No significant change has occurred. Carlos Capps MD Objective Remarks GENERAL: Well-nourished, well-developed female sitting on side of bed in NAD. SKIN: Warm and dry. No rash. HEENT: Normocephalic. Atraumatic. Pupils equal and round. No scleral icterus. No injection or drainage. No nasal bleeding or discharge. Mucous membranes pink and moist. NECK: Supple. Trachea midline. CARDIOVASCULAR: Regular rate and rhythm. S1, S2 noted. No murmur appreciated. RESPIRATORY: No accessory muscle use. Clear to auscultation. Breath sounds equal bilaterally. GASTROINTESTINAL: Abdomen soft, non-tender, nondistended. Normoactive bowel sounds x4. No guarding noted. MUSCULOSKELETAL: No obvious deformities. Extremities without clubbing, cyanosis , or edema. NEUROLOGICAL: Awake and alert. No obvious cranial nerve deficits. Motor grossly within normal limits. 5/5 muscle strength in bilateral upper and lower extremities. Normal speech. PSYCHIATRIC: Appropriate mood and affect. A/P Problem List: (1) Inability to walk ICD Code: R26.2 - Difficulty in walking, not elsewhere classified Status: Acute (2) Alcohol dependence in controlled environment ICD Code: F10.20 - Alcohol dependence, uncomplicated Status: Chronic (3) Facial injury ICD Code: S09.93XA - Unspecified injury of face, initial encounter Status: Acute (4) Fall ICD Code: W19.XXXA - Unspecified fall, initial encounter Status: Acute (5) Hypertension ICD Code: I10 - Essential (primary) hypertension Status: Acute (6) Pelvic fracture ICD Code: S32.9XXA - Fracture of unspecified parts of lumbosacral spine and pelvis, initial encounter for closed fracture Status: Acute (7) C1-C2 subluxation ICD Code: S13.120A - Subluxation of C1/C2 cervical vertebrae, initial encounter Status: Acute (8) C6 cervical fracture ICD Code: S12.500A - Unspecified displaced fracture of sixth cervical vertebra , initial encounter for closed fracture Status: Acute (9) Traumatic brain injury ICD Code: S06.9X9A - Unspecified intracranial injury with loss of consciousness of unspecified duration, initial encounter Status: Acute (10) Nasal fracture ICD Code: S02.2XXA - Fracture of nasal bones, initial encounter for closed fracture Status: Acute (11) Mild neurocognitive disorder ICD Code: G31.84 - Mild cognitive impairment, so stated Status: Acute (12) Intracranial bleed ICD Code: I62.9 - Nontraumatic intracranial hemorrhage, unspecified Status: Acute Assessment and Plan Inability to care for self, unsafe discharge due to cognition Initially it was indicated patient cannot walk, patient is walking at this time, PT and OT recommending supervision at home for safety. Speech therapy following the patient intermittently for cognitive evaluations. MOCA score 24/30, she needs to have supervision. 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 Mini mental state 28/30, recommended avoid antipsychotics for benzodiazepine. Recommending Depakote or carbamazepine Neuropsychiatry evaluated the patient recommended patient may improve with treatment, however indicates avoid benzodiazepines and antipsychotics. Continue Prozac 40 mg daily Depakene 500 mg twice daily Seroquel 25 mg every 8 hours - Encouraged sitter and RN to keep patient awake during the day to get back on a normal sleeping schedule. *Psychiatry has seen patient and indicated that the patient lacks capacity for signing AMA or to participate in discharge plan. Recommendations for ethics committee to the hospital and discuss patient care and plan. *Case management following and requested for ethics committee review, awaiting arrival. Low blood pressure with mild hypoxia, resolved. BP now stable and controlled. Monitor BP trends. Denies any dyspnea. Status post saline bolus 500 cc. IVF dc'd. Chest x-ray was performed and reviewed that indicated mild edema with atelectasis Continue incentive spirometry. Urinary tract infection, treated. Denies any dysuria or urinary complaints. Completed Levaquin 250 mg by mouth daily. Urine culture shows Escherichia coli which is sensitive to fluoroquinolones. Multiple traumatic injuries Patient laceration, subdural hemorrhage, ventricular hemorrhage, nasal fracture, C6 fracture, C1-C2 subluxation, C4 transverse process fracture, right rib fracture, L1 transverse process fracture, right pubic rami fracture Continue c-collar this time, however patient does not wear. Specialist no longer following patient, patient will require outpatient follow-up if discharge. Hypertension: Stable at this time. Continue Amlodipine 10 mg daily. Continue to monitor trends. DVT prevention: SCDs. Ambulation. Discharge Planning Patient is medically stable for discharge, however due to underlying psychiatric /cognition patient is unsafe discharge until arrangements made by case management Problem Qualifiers (1) Hypertension: Qualified Codes: I10 - Essential (primary) hypertension Rohit Meansssakin RAMIREZ Sep 10, 2017 12:04
[2017-09-10 20:00] VITALS: BP 115/65; PULSE 65; RESP 20; TEMP 97.1; O2SAT 96
[2017-09-10 20:40] VITALS: O2SAT 95
[2017-09-11] MEDS: QUEtiapine FUMARATE 25 MG TAB PO SCH ×3 (06:30→20:40)
[2017-09-11 07:50] VITALS: BP 116/68; PULSE 57; RESP 20; TEMP 97.5; O2SAT 93
[2017-09-11 08:00] VITALS: O2SAT 94
[2017-09-11] MEDS: amLODIPine BESYLATE 5 MG TAB PO SCH (08:48)
[2017-09-11] MEDS: VALPROIC ACID 250 MG CAP PO SCH ×2 (08:48→20:41)
[2017-09-11] MEDS: FLUoxetine HCL 20 MG CAP PO SCH (08:48)
--- NOTE | 2017-09-11 11:21 | HHI.PR ---
Subjective Remarks Follow up unsafe discharge and inability to care for self, hypertension. Patient lying in bed in nad, sitter at bedside. Patient awakens to voice, follows commands. States she has been sleeping during the day and wide awake at night. Denies any new acute complains. Eating well. Encouraged to use IS and ambulate. Denies any recent fever, chills, headache, cough, shortness of breath , ab pain, n/v/d or dysuria. Objective Vitals Vital Signs Date Time Temp Pulse Resp B/P (MAP) Pulse Ox O2 Delivery O2 Flow Rate FiO2 09/11/17 07:50 97.5 57 20 116/68 (84) 93 09/10/17 20:40 95 21 09/10/17 20:00 97.1 65 20 115/65 (82) 96 I/O 09/10/17 09/10/17 09/10/17 09/11/17 09/11/17 09/11/17 07:00 15:00 23:00 07:00 15:00 23:00 Intake Total 120 ml 340 ml 480 ml 100 ml Balance 120 ml 340 ml 480 ml 100 ml Intake Oral 120 ml 340 ml 480 ml 100 ml # Voids 3 4 1 # Bowel Movements 0 Imaging Last Impressions Chest X-Ray 09/03/17 0000 Signed Impressions: Service Date/Time: Sunday, September 03, 2017 17:02 - CONCLUSION: 1. Mild edema pattern. Subsegmental basilar airspace disease most characteristic of atelectasis.. Fadi Carolnia MD Cervical Spine CT 09/02/17 0000 Signed Impressions: Service Date/Time: August 12:56 - CONCLUSION: Postsurgical changes from anterior cervical plate at C6-7. No evidence of compression deformity or spondylolisthesis. Arun Regan MD Pelvis X-Ray 06/30/17 0000 Signed Impressions: Service Date/Time: Friday, June 30, 2017 12:17 - CONCLUSION: No significant change has occurred. Carlos Capps MD Objective Remarks GENERAL: Well-nourished, well-developed female sitting on side of bed in [facility]. SKIN: Warm and dry. No rash. HEENT: Normocephalic. Atraumatic. Pupils equal and round. No scleral icterus. No injection or drainage. No nasal bleeding or discharge. Mucous membranes pink and moist. NECK: Supple. Trachea midline. CARDIOVASCULAR: Regular rate and rhythm. S1, S2 noted. No murmur appreciated. RESPIRATORY: No accessory muscle use. Clear to auscultation. Breath sounds equal bilaterally. GASTROINTESTINAL: Abdomen soft, non-tender, nondistended. Normoactive bowel sounds x4. No guarding noted. MUSCULOSKELETAL: No obvious deformities. Extremities without clubbing, cyanosis , or edema. NEUROLOGICAL: Awake and alert. No obvious cranial nerve deficits. Motor grossly within normal limits. 5/5 muscle strength in bilateral upper and lower extremities. Normal speech. PSYCHIATRIC: Appropriate mood and affect. A/P Problem List: (1) Inability to walk ICD Code: R26.2 - Difficulty in walking, not elsewhere classified Status: Acute (2) Alcohol dependence in controlled environment ICD Code: F10.20 - Alcohol dependence, uncomplicated Status: Chronic (3) Facial injury ICD Code: S09.93XA - Unspecified injury of face, initial encounter Status: Acute (4) Fall ICD Code: W19.XXXA - Unspecified fall, initial encounter Status: Acute (5) Hypertension ICD Code: I10 - Essential (primary) hypertension Status: Acute (6) Pelvic fracture ICD Code: S32.9XXA - Fracture of unspecified parts of lumbosacral spine and pelvis, initial encounter for closed fracture Status: Acute (7) C1-C2 subluxation ICD Code: S13.120A - Subluxation of C1/C2 cervical vertebrae, initial encounter Status: Acute (8) C6 cervical fracture ICD Code: S12.500A - Unspecified displaced fracture of sixth cervical vertebra , initial encounter for closed fracture Status: Acute (9) Traumatic brain injury ICD Code: S06.9X9A - Unspecified intracranial injury with loss of consciousness of unspecified duration, initial encounter Status: Acute (10) Nasal fracture ICD Code: S02.2XXA - Fracture of nasal bones, initial encounter for closed fracture Status: Acute (11) Mild neurocognitive disorder ICD Code: G31.84 - Mild cognitive impairment, so stated Status: Acute (12) Intracranial bleed ICD Code: I62.9 - Nontraumatic intracranial hemorrhage, unspecified Status: Acute Assessment and Plan Inability to care for self, unsafe discharge due to cognition Initially it was indicated patient cannot walk, patient is walking at this time, PT and OT recommending supervision at home for safety. Speech therapy following the patient intermittently for cognitive evaluations. MOCA score 24/30, she needs to have supervision. 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 Mini mental state 28/30, recommended avoid antipsychotics for benzodiazepine. Recommending Depakote or carbamazepine Neuropsychiatry evaluated the patient recommended patient may improve with treatment, however indicates avoid benzodiazepines and antipsychotics. Continue Prozac 40 mg daily Depakene 500 mg twice daily Seroquel 25 mg every 8 hours - Encouraged sitter and RN to keep patient awake during the day to get back on a normal sleeping schedule. *Psychiatry has seen patient and indicated that the patient lacks capacity for signing AMA or to participate in discharge plan. Recommendations for ethics committee to the hospital and discuss patient care and plan. *Case management following and requested for ethics committee review, awaiting arrival. Low blood pressure with mild hypoxia, resolved. BP now stable and controlled. Monitor BP trends. Denies any dyspnea. Status post saline bolus 500 cc. IVF dc'd. Chest x-ray was performed and reviewed that indicated mild edema with atelectasis Continue incentive spirometry. Urinary tract infection, treated. Denies any dysuria or urinary complaints. Completed Levaquin 250 mg by mouth daily. Urine culture shows Escherichia coli which is sensitive to fluoroquinolones. Multiple traumatic injuries Patient laceration, subdural hemorrhage, ventricular hemorrhage, nasal fracture, C6 fracture, C1-C2 subluxation, C4 transverse process fracture, right rib fracture, L1 transverse process fracture, right pubic rami fracture Continue c-collar this time, however patient does not wear. Specialist no longer following patient, patient will require outpatient follow-up if discharge. Hypertension: Stable at this time. Continue Amlodipine 10 mg daily. Continue to monitor trends. DVT prevention: SCDs. Ambulation. Discharge Planning Patient is medically stable for discharge, however due to underlying psychiatric /cognition patient is unsafe discharge until arrangements made by case management Problem Qualifiers (1) Hypertension: Qualified Codes: I10 - Essential (primary) hypertension Alyssa Means Sep 11, 2017 11:21
[2017-09-11 20:04] VITALS: BP 112/68; PULSE 70; RESP 16; TEMP 98; O2SAT 94
[2017-09-11 20:40] VITALS: O2SAT 97
[2017-09-12] MEDS: QUEtiapine FUMARATE 25 MG TAB PO SCH ×3 (05:40→21:16)
[2017-09-12 07:50] VITALS: BP 142/72; PULSE 57; RESP 20; TEMP 96.6; O2SAT 95
[2017-09-12 08:00] VITALS: O2SAT 93
[2017-09-12] MEDS: amLODIPine BESYLATE 5 MG TAB PO SCH (08:05)
[2017-09-12] MEDS: VALPROIC ACID 250 MG CAP PO SCH ×2 (08:05→21:16)
[2017-09-12] MEDS: FLUoxetine HCL 20 MG CAP PO SCH (08:05)
--- NOTE | 2017-09-12 11:13 | HHI.PR ---
Subjective Remarks Follow up unsafe discharge and inability to care for self, hypertension. Patient lying in bed comfortably. Denies any new acute complaints. Affect pleasant and talkative today. Eating well. Follows commands. Awake, alert and oriented. Objective Vitals Vital Signs Date Time Temp Pulse Resp B/P (MAP) Pulse Ox O2 Delivery O2 Flow Rate FiO2 09/12/17 07:50 96.6 57 20 142/72 (95) 95 09/11/17 20:40 97 21 09/11/17 20:04 98.0 70 16 112/68 (83) 94 I/O 09/11/17 09/11/17 09/11/17 09/12/17 09/12/17 09/12/17 07:00 15:00 23:00 07:00 15:00 23:00 Intake Total 480 ml 100 ml 666 ml Output Total 850 ml Balance 480 ml 100 ml -184 ml Intake Oral 480 ml 100 ml 666 ml Output Urine Total 850 ml # Voids 1 3 5 # Bowel Movements 0 Imaging Last Impressions Chest X-Ray 09/03/17 0000 Signed Impressions: Service Date/Time: Sunday, September 03, 2017 17:02 - CONCLUSION: 1. Mild edema pattern. Subsegmental basilar airspace disease most characteristic of atelectasis.. Fadi Carolina MD Cervical Spine CT 09/02/17 0000 Signed Impressions: Service Date/Time: August 12:56 - CONCLUSION: Postsurgical changes from anterior cervical plate at C6-7. No evidence of compression deformity or spondylolisthesis. Arun Regan MD Pelvis X-Ray 06/30/17 0000 Signed Impressions: Service Date/Time: Friday, June 30, 2017 12:17 - CONCLUSION: No significant change has occurred. Carlos Capps MD Objective Remarks GENERAL: Well-nourished, well-developed female in NAD. SKIN: Warm and dry. No rash. HEENT: Normocephalic. Atraumatic. Pupils equal and round. No scleral icterus. No injection or drainage. No nasal bleeding or discharge. Mucous membranes pink and moist. NECK: Supple. Trachea midline. CARDIOVASCULAR: Regular rate and rhythm. S1, S2 noted. No murmur appreciated. RESPIRATORY: No accessory muscle use. Clear to auscultation. Breath sounds equal bilaterally. GASTROINTESTINAL: Abdomen soft, non-tender, nondistended. Normoactive bowel sounds x4. No guarding noted. MUSCULOSKELETAL: No obvious deformities. Extremities without clubbing, cyanosis , or edema. NEUROLOGICAL: Awake and alert. No obvious cranial nerve deficits. Motor grossly within normal limits. 5/5 muscle strength in bilateral upper and lower extremities. Normal speech. PSYCHIATRIC: Appropriate mood and affect. A/P Problem List: (1) Inability to walk ICD Code: R26.2 - Difficulty in walking, not elsewhere classified Status: Acute (2) Alcohol dependence in controlled environment ICD Code: F10.20 - Alcohol dependence, uncomplicated Status: Chronic (3) Facial injury ICD Code: S09.93XA - Unspecified injury of face, initial encounter Status: Acute (4) Fall ICD Code: W19.XXXA - Unspecified fall, initial encounter Status: Acute (5) Hypertension ICD Code: I10 - Essential (primary) hypertension Status: Acute (6) Pelvic fracture ICD Code: S32.9XXA - Fracture of unspecified parts of lumbosacral spine and pelvis, initial encounter for closed fracture Status: Acute (7) C1-C2 subluxation ICD Code: S13.120A - Subluxation of C1/C2 cervical vertebrae, initial encounter Status: Acute (8) C6 cervical fracture ICD Code: S12.500A - Unspecified displaced fracture of sixth cervical vertebra , initial encounter for closed fracture Status: Acute (9) Traumatic brain injury ICD Code: S06.9X9A - Unspecified intracranial injury with loss of consciousness of unspecified duration, initial encounter Status: Acute (10) Nasal fracture ICD Code: S02.2XXA - Fracture of nasal bones, initial encounter for closed fracture Status: Acute (11) Mild neurocognitive disorder ICD Code: G31.84 - Mild cognitive impairment, so stated Status: Acute (12) Intracranial bleed ICD Code: I62.9 - Nontraumatic intracranial hemorrhage, unspecified Status: Acute Assessment and Plan Inability to care for self, unsafe discharge due to cognition Initially it was indicated patient cannot walk, patient is walking at this time, PT and OT recommending supervision at home for safety. Speech therapy following the patient intermittently for cognitive evaluations. MOCA score 24/30, she needs to have supervision. 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 Mini mental state 28/30, recommended avoid antipsychotics for benzodiazepine. Recommending Depakote or carbamazepine Neuropsychiatry evaluated the patient recommended patient may improve with treatment, however indicates avoid benzodiazepines and antipsychotics. Continue Prozac 40 mg daily Depakene 500 mg twice daily Seroquel 25 mg every 8 hours - Encouraged sitter and RN to keep patient awake during the day to get back on a normal sleeping schedule. *Psychiatry has seen patient and indicated that the patient lacks capacity for signing AMA or to participate in discharge plan. Recommendations for ethics committee to the hospital and discuss patient care and plan. *Case management following and requested for ethics committee review, awaiting arrival. Low blood pressure with mild hypoxia, resolved. BP now stable and controlled. Monitor BP trends. Denies any dyspnea. Status post saline bolus 500 cc. IVF dc'd. Chest x-ray was performed and reviewed that indicated mild edema with atelectasis Continue incentive spirometry. Urinary tract infection, treated. Denies any dysuria or urinary complaints. Completed Levaquin 250 mg by mouth daily. Urine culture shows Escherichia coli which is sensitive to fluoroquinolones. Multiple traumatic injuries Patient laceration, subdural hemorrhage, ventricular hemorrhage, nasal fracture, C6 fracture, C1-C2 subluxation, C4 transverse process fracture, right rib fracture, L1 transverse process fracture, right pubic rami fracture Continue c-collar this time, however patient does not wear. Specialist no longer following patient, patient will require outpatient follow-up if discharge. Hypertension: Stable at this time. Continue Amlodipine 10 mg daily. Continue to monitor trends. DVT prevention: SCDs. Ambulation. Discharge Planning Patient is medically stable for discharge, however due to underlying psychiatric /cognition patient is unsafe discharge until arrangements made by case management Problem Qualifiers (1) Hypertension: Qualified Codes: I10 - Essential (primary) hypertension Alyssa Means Sep 12, 2017 11:13
[2017-09-12 20:00] VITALS: BP 122/73; PULSE 66; RESP 20; TEMP 98; O2SAT 94
[2017-09-12] MEDS: ACETAMINOPHEN 325 MG TAB PO PRN (21:16)
[2017-09-12 22:15] VITALS: O2SAT 92
[2017-09-13] MEDS: QUEtiapine FUMARATE 25 MG TAB PO SCH ×3 (05:14→21:19)
[2017-09-13 08:00] VITALS: BP 105/65; PULSE 56; RESP 16; TEMP 96.2; O2SAT 93
[2017-09-13] MEDS: amLODIPine BESYLATE 5 MG TAB PO SCH (08:47)
[2017-09-13] MEDS: VALPROIC ACID 250 MG CAP PO SCH ×2 (10:05→20:48)
[2017-09-13] MEDS: FLUoxetine HCL 20 MG CAP PO SCH (10:06)
[2017-09-13 11:00] VITALS: O2SAT 93
--- NOTE | 2017-09-13 11:52 | HHI.PR ---
Subjective Remarks Follow up unsafe discharge and inability to care for self, hypertension. Patient lying in bed comfortably. No apparent distress. Slept well. No change in clinical condition. Ambulating. VSS. Afebrile. Denies pain. Objective Vitals Vital Signs Date Time Temp Pulse Resp B/P (MAP) Pulse Ox O2 Delivery O2 Flow Rate FiO2 09/13/17 08:00 96.2 56 16 105/65 (78) 93 09/12/17 22:15 92 21 09/12/17 20:00 98.0 66 20 122/73 (89) 94 I/O 09/12/17 09/12/17 09/12/17 09/13/17 09/13/17 09/13/17 07:00 15:00 23:00 07:00 15:00 23:00 Intake Total 494 ml 480 ml Output Total 750 ml Balance -256 ml 480 ml Intake Oral 494 ml 480 ml Output Urine Total 750 ml # Voids 5 2 # Bowel Movements 0 0 Imaging Last Impressions Chest X-Ray 09/03/17 0000 Signed Impressions: Service Date/Time: Sunday, September 03, 2017 17:02 - CONCLUSION: 1. Mild edema pattern. Subsegmental basilar airspace disease most characteristic of atelectasis.. Fadi Carolina MD Cervical Spine CT 09/02/17 0000 Signed Impressions: Service Date/Time: August 12:56 - CONCLUSION: Postsurgical changes from anterior cervical plate at C6-7. No evidence of compression deformity or spondylolisthesis. Arun Regan MD Pelvis X-Ray 06/30/17 0000 Signed Impressions: Service Date/Time: Friday, June 30, 2017 12:17 - CONCLUSION: No significant change has occurred. Carlos Capps MD Objective Remarks GENERAL: Well-nourished, well-developed female lying in bed in NAD. SKIN: Warm and dry. No rash. HEENT: Normocephalic. Atraumatic. Pupils equal and round. No scleral icterus. No injection or drainage. No nasal bleeding or discharge. Mucous membranes pink and moist. NECK: Supple. Trachea midline. CARDIOVASCULAR: Regular rate and rhythm. S1, S2 noted. No murmur appreciated. RESPIRATORY: No accessory muscle use. Clear to auscultation. Breath sounds equal bilaterally. GASTROINTESTINAL: Abdomen soft, non-tender, nondistended. Normoactive bowel sounds x4. No guarding noted. MUSCULOSKELETAL: No obvious deformities. Extremities without clubbing, cyanosis , or edema. NEUROLOGICAL: Awake and alert. No obvious cranial nerve deficits. Motor grossly within normal limits. 5/5 muscle strength in bilateral upper and lower extremities. Normal speech. PSYCHIATRIC: Appropriate mood and affect. A/P Problem List: (1) Alcohol dependence in controlled environment ICD Code: F10.20 - Alcohol dependence, uncomplicated Status: Chronic (2) Facial injury ICD Code: S09.93XA - Unspecified injury of face, initial encounter Status: Acute (3) Fall ICD Code: W19.XXXA - Unspecified fall, initial encounter Status: Acute (4) Hypertension ICD Code: I10 - Essential (primary) hypertension Status: Acute (5) Pelvic fracture ICD Code: S32.9XXA - Fracture of unspecified parts of lumbosacral spine and pelvis, initial encounter for closed fracture Status: Acute (6) C1-C2 subluxation ICD Code: S13.120A - Subluxation of C1/C2 cervical vertebrae, initial encounter Status: Acute (7) C6 cervical fracture ICD Code: S12.500A - Unspecified displaced fracture of sixth cervical vertebra , initial encounter for closed fracture Status: Acute (8) Traumatic brain injury ICD Code: S06.9X9A - Unspecified intracranial injury with loss of consciousness of unspecified duration, initial encounter Status: Acute (9) Nasal fracture ICD Code: S02.2XXA - Fracture of nasal bones, initial encounter for closed fracture Status: Acute (10) Mild neurocognitive disorder ICD Code: G31.84 - Mild cognitive impairment, so stated Status: Acute (11) Intracranial bleed ICD Code: I62.9 - Nontraumatic intracranial hemorrhage, unspecified Status: Acute Assessment and Plan Inability to care for self, unsafe discharge due to cognition Initially it was indicated patient cannot walk, patient is walking at this time, PT and OT recommending supervision at home for safety. Speech therapy following the patient intermittently for cognitive evaluations. MOCA score 24/30, she needs to have supervision. 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 Mini mental state 28/30, recommended avoid antipsychotics for benzodiazepine. Recommending Depakote or carbamazepine Neuropsychiatry evaluated the patient recommended patient may improve with treatment, however indicates avoid benzodiazepines and antipsychotics. Continue Prozac 40 mg daily Depakene 500 mg twice daily Seroquel 25 mg every 8 hours - Encouraged sitter and RN to keep patient awake during the day to get back on a normal sleeping schedule. *Psychiatry has seen patient and indicated that the patient lacks capacity for signing AMA or to participate in discharge plan. Recommendations for ethics committee to the hospital and discuss patient care and plan. Case management following and requested for ethics committee review. No updated from regarding status of ethics committee. Low blood pressure with mild hypoxia, resolved. BP now stable and controlled. Monitor BP trends. Denies any dyspnea. Status post saline bolus 500 cc. IVF dc'd. Chest x-ray was performed and reviewed that indicated mild edema with atelectasis Continue incentive spirometry. Urinary tract infection, treated. Denies any dysuria or urinary complaints. Completed Levaquin 250 mg by mouth daily. Urine culture shows Escherichia coli which is sensitive to fluoroquinolones. Multiple traumatic injuries Patient laceration, subdural hemorrhage, ventricular hemorrhage, nasal fracture, C6 fracture, C1-C2 subluxation, C4 transverse process fracture, right rib fracture, L1 transverse process fracture, right pubic rami fracture Continue c-collar this time, however patient does not wear. Specialist no longer following patient, patient will require outpatient follow-up if discharge. Hypertension: Stable at this time. Continue Amlodipine 10 mg daily. Continue to monitor trends. DVT prevention: SCDs. Ambulation. Discharge Planning Patient is medically stable for discharge, however due to underlying psychiatric /cognition patient is unsafe discharge until arrangements made by case management Problem Qualifiers (1) Hypertension: Qualified Codes: I10 - Essential (primary) hypertension Alyssa Means Sep 13, 2017 11:52
[2017-09-13 20:00] VITALS: BP 145/75; PULSE 70; RESP 20; TEMP 96.5; O2SAT 93
[2017-09-13 22:29] VITALS: O2SAT 95
[2017-09-13] MEDS ORDERED: diphenhydrAMINE HCL 50 MG CAP PO ONE (23:15)
[2017-09-14] MEDS ORDERED: HALOPERIDOL LACTATE 5 MG/ML AMP IM ONE (00:45)
[2017-09-14] MEDS: QUEtiapine FUMARATE 25 MG TAB PO SCH ×3 (06:41→21:11)
[2017-09-14 07:48] VITALS: O2SAT 95
[2017-09-14 07:50] VITALS: BP 106/69; PULSE 54; RESP 20; TEMP 96.6; O2SAT 93
[2017-09-14] MEDS: amLODIPine BESYLATE 5 MG TAB PO SCH (08:20)
--- NOTE | 2017-09-14 11:42 | HHI.PR ---
Subjective Remarks Patient seen and examined today for follow-up on unsafe discharge due to cognition. Patient denies any new complaints. No change in clinical status. Objective Vitals Vital Signs Date Time Temp Pulse Resp B/P (MAP) Pulse Ox O2 Delivery O2 Flow Rate FiO2 09/14/17 07:50 96.6 54 20 106/69 (81) 93 09/14/17 07:48 95 21 09/13/17 22:29 95 21 09/13/17 20:00 96.5 70 20 145/75 (98) 93 I/O 09/13/17 09/13/17 09/13/17 09/14/17 09/14/17 09/14/17 07:00 15:00 23:00 07:00 15:00 23:00 Intake Total 480 ml 444 ml 260 ml Output Total 50 ml Balance 480 ml 444 ml 210 ml Intake Oral 480 ml 444 ml 260 ml Output Urine Total 50 ml # Voids 2 1 # Bowel Movements 0 0 Objective Remarks GENERAL: Well-developed, well-nourished, in no acute distress. alert and orientated waxes and wanes daily HEENT: Head is normocephalic without any lesions or masses noted. Facial features are symmetric. Eyes: Extraocular muscles are intact. Conjunctivae were clear. NECK: C-collar in on table at bedside CARDIAC: Regular rhythm, regular rate. S1/S2 are heard. No murmurs gallops or rubs. LUNGS: Clear to auscultation bilaterally. No wheeze, rhonchi or rales. No use of accessory muscles on inspiration or expiration. ABDOMEN: Soft, nontender. Nondistended. Bowel sounds heard in all 4 quadrants. No organomegaly or masses. Negative rebound, negative guarding EXTREMITIES: No edema, pulses are equal bilaterally. No cyanosis or clubbing NEUROLOGY: Mood and affect appear appropriate. Cranial nerves II through XII grossly intact moving all extremities, speech is clear Urinary Catheter: No Vascular Central Line Catheter: No A/P Assessment and Plan Inability to care for self, unsafe discharge due to cognition Initially he was indicated patient cannot walk, patient is walking at this time, PT and OT recommending supervision at home for safety Speech therapy following the patient intermittently for cognitive evaluations. 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 MIni mental state 28/30, recommended avoid antipsychotics for benzodiazepine. Recommending Depakote or carbamazepine Patient is medically stable for discharge, however due to underlying psychiatric/cognition patient is unsafe discharge until arrangements made by case management Case management for discharge planning Neuropsychiatry evaluated the patient recommended patient may improve with treatment, however indicates avoid benzodiazepines and antipsychotics Continue Prozac 40 mg daily Depakene 500 mg twice daily Increased to Seroquel 50 mg every 8 hours *Discussed with psychiatry again about patient's cognition issues. He indicated that the patient lacks capacity for signing AMA or to participate in discharge plan. He is recommending that he would invite the ethics committee to the hospital to have a discussion about patient care *Consulted case management for ethics committee review, awaiting response Multiple traumatic injuries, Patient laceration, subdural hemorrhage, ventricular hemorrhage, nasal fracture, C6 fracture, C1-C2 subluxation, C4 transverse process fracture, right rib fracture, L1 transverse process fracture, right pubic rami fracture Continue c-collar this time, however patient does not wear Specialist no longer following patient, patient will require outpatient follow-up if discharge Hypertension, Amlodipine 2.5 mg daily DVT prevention Patient ambulating Sequential compression devices while in bed Discharge Planning Case management for discharge planning Conrado Mariee Sep 14, 2017 11:42
[2017-09-14] MEDS: VALPROIC ACID 250 MG CAP PO SCH ×2 (12:47→21:11)
[2017-09-14] MEDS: FLUoxetine HCL 20 MG CAP PO SCH (12:48)
[2017-09-14 20:00] VITALS: BP 116/73; PULSE 72; RESP 18; TEMP 97.2; O2SAT 96
[2017-09-14 20:44] VITALS: O2SAT 93
[2017-09-15] MEDS: QUEtiapine FUMARATE 25 MG TAB PO SCH ×3 (06:07→21:24)
[2017-09-15 07:50] VITALS: BP 138/65; PULSE 56; RESP 20; TEMP 97.5; O2SAT 94
[2017-09-15] MEDS: FLUoxetine HCL 20 MG CAP PO SCH (08:45)
[2017-09-15] MEDS: amLODIPine BESYLATE 5 MG TAB PO SCH (08:46)
[2017-09-15] MEDS: VALPROIC ACID 250 MG CAP PO SCH ×2 (08:46→21:24)
--- NOTE | 2017-09-15 09:45 | HHI.PR ---
Subjective Remarks Patient seen and examined today for follow-up on unsafe discharge due to cognition. Patient denies any new complaints. No change in clinical status. Awaiting case management and ethics committee for evaluation Objective Vitals Vital Signs Date Time Temp Pulse Resp B/P (MAP) Pulse Ox O2 Delivery O2 Flow Rate FiO2 09/15/17 07:50 97.5 56 20 138/65 (89) 94 09/14/17 20:44 93 21 09/14/17 20:00 97.2 72 18 116/73 (87) 96 I/O 09/14/17 09/14/17 09/14/17 09/15/17 09/15/17 09/15/17 07:00 15:00 23:00 07:00 15:00 23:00 Intake Total 701 ml 360 ml Output Total 400 ml Balance 301 ml 360 ml Intake Oral 701 ml 360 ml Output Urine Total 400 ml # Voids 1 # Bowel Movements 0 Objective Remarks GENERAL: Well-developed, well-nourished, in no acute distress. alert and orientated waxes and wanes daily HEENT: Head is normocephalic without any lesions or masses noted. Facial features are symmetric. Eyes: Extraocular muscles are intact. Conjunctivae were clear. NECK: C-collar in on table at bedside CARDIAC: Regular rhythm, regular rate. S1/S2 are heard. No murmurs gallops or rubs. LUNGS: Clear to auscultation bilaterally. No wheeze, rhonchi or rales. No use of accessory muscles on inspiration or expiration. ABDOMEN: Soft, nontender. Nondistended. Bowel sounds heard in all 4 quadrants. No organomegaly or masses. Negative rebound, negative guarding EXTREMITIES: No edema, pulses are equal bilaterally. No cyanosis or clubbing NEUROLOGY: Mood and affect appear appropriate. Cranial nerves II through XII grossly intact moving all extremities, speech is clear Urinary Catheter: No Vascular Central Line Catheter: No A/P Assessment and Plan Inability to care for self, unsafe discharge due to cognition Initially he was indicated patient cannot walk, patient is walking at this time, PT and OT recommending supervision at home for safety Speech therapy following the patient intermittently for cognitive evaluations. 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 MIni mental state 28/30, recommended avoid antipsychotics for benzodiazepine. Recommending Depakote or carbamazepine Patient is medically stable for discharge, however due to underlying psychiatric/cognition patient is unsafe discharge until arrangements made by case management Case management for discharge planning Neuropsychiatry evaluated the patient recommended patient may improve with treatment, however indicates avoid benzodiazepines and antipsychotics Continue Prozac 40 mg daily Depakene 500 mg twice daily Increased to Seroquel 50 mg every 8 hours *Discussed with psychiatry again about patient's cognition issues. He indicated that the patient lacks capacity for signing AMA or to participate in discharge plan. He is recommending that he would invite the ethics committee to the hospital to have a discussion about patient care *Consulted case management for ethics committee review, awaiting response Multiple traumatic injuries, Patient laceration, subdural hemorrhage, ventricular hemorrhage, nasal fracture, C6 fracture, C1-C2 subluxation, C4 transverse process fracture, right rib fracture, L1 transverse process fracture, right pubic rami fracture Continue c-collar this time, however patient does not wear Specialist no longer following patient, patient will require outpatient follow-up if discharge Hypertension, Amlodipine 2.5 mg daily DVT prevention Patient ambulating Sequential compression devices while in bed Records were reviewed. No change in current treatment plan. Awaiting case management for discharge planning Discharge Planning Case management for discharge planning Conrado Mariee Sep 15, 2017 09:45
[2017-09-15 20:00] VITALS: BP 172/91; PULSE 66; RESP 20; TEMP 97.6; O2SAT 95
[2017-09-16] MEDS: QUEtiapine FUMARATE 25 MG TAB PO SCH ×3 (06:40→20:58)
[2017-09-16 08:00] VITALS: BP 128/78; PULSE 60; RESP 20; TEMP 97.1; O2SAT 92
--- NOTE | 2017-09-16 09:28 | HHI.PR ---
Subjective Remarks Patient seen and examined today for follow-up on unsafe discharge due to cognition. Patient indicates that which was smaller she had a mild neck pain. Otherwise no other complaints. No change in clinical status. Objective Vitals Vital Signs Date Time Temp Pulse Resp B/P (MAP) Pulse Ox O2 Delivery O2 Flow Rate FiO2 09/16/17 08:00 97.1 60 20 128/78 (95) 92 09/15/17 20:00 97.6 66 20 172/91 (118) 95 I/O 09/15/17 09/15/17 09/15/17 09/16/17 09/16/17 09/16/17 07:00 15:00 23:00 07:00 15:00 23:00 Intake Total 360 ml 480 ml 480 ml Output Total 1100 ml Balance 360 ml -620 ml 480 ml Intake Oral 360 ml 480 ml 480 ml Output Urine Total 1100 ml # Voids 1 3 # Bowel Movements 0 0 0 Objective Remarks GENERAL: Well-developed, well-nourished, in no acute distress. alert and orientated waxes and wanes daily HEENT: Head is normocephalic without any lesions or masses noted. Facial features are symmetric. Eyes: Extraocular muscles are intact. Conjunctivae were clear. NECK: C-collar in on table at bedside CARDIAC: Regular rhythm, regular rate. S1/S2 are heard. No murmurs gallops or rubs. LUNGS: Clear to auscultation bilaterally. No wheeze, rhonchi or rales. No use of accessory muscles on inspiration or expiration. ABDOMEN: Soft, nontender. Nondistended. Bowel sounds heard in all 4 quadrants. No organomegaly or masses. Negative rebound, negative guarding EXTREMITIES: No edema, pulses are equal bilaterally. No cyanosis or clubbing NEUROLOGY: Mood and affect appear appropriate. Cranial nerves II through XII grossly intact moving all extremities, speech is clear Urinary Catheter: No Vascular Central Line Catheter: No A/P Assessment and Plan Inability to care for self, unsafe discharge due to cognition Initially he was indicated patient cannot walk, patient is walking at this time, PT and OT recommending supervision at home for safety Speech therapy following the patient intermittently for cognitive evaluations. 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 MIni mental state 28/30, recommended avoid antipsychotics for benzodiazepine. Recommending Depakote or carbamazepine Patient is medically stable for discharge, however due to underlying psychiatric/cognition patient is unsafe discharge until arrangements made by case management Case management for discharge planning Neuropsychiatry evaluated the patient recommended patient may improve with treatment, however indicates avoid benzodiazepines and antipsychotics Continue Prozac 40 mg daily Depakene 500 mg twice daily Increased to Seroquel 50 mg every 8 hours *Discussed with psychiatry again about patient's cognition issues. He indicated that the patient lacks capacity for signing AMA or to participate in discharge plan. He is recommending that he would invite the ethics committee to the hospital to have a discussion about patient care *Consulted case management for ethics committee review, awaiting response Multiple traumatic injuries, Patient laceration, subdural hemorrhage, ventricular hemorrhage, nasal fracture, C6 fracture, C1-C2 subluxation, C4 transverse process fracture, right rib fracture, L1 transverse process fracture, right pubic rami fracture Continue c-collar this time, however patient does not wear Specialist no longer following patient, patient will require outpatient follow-up if discharge Hypertension, Amlodipine 2.5 mg daily DVT prevention Patient ambulating Sequential compression devices while in bed Records were reviewed. Awaiting case management for discharge planning No change in current treatment plan. Discharge Planning Case management for discharge planning Conrado Mariee Sep 16, 2017 09:28
[2017-09-16] MEDS: FLUoxetine HCL 20 MG CAP PO SCH (09:40)
[2017-09-16] MEDS: amLODIPine BESYLATE 5 MG TAB PO SCH (09:41)
[2017-09-16] MEDS: VALPROIC ACID 250 MG CAP PO SCH ×2 (09:41→20:58)
[2017-09-17 04:00] VITALS: BP 140/81; PULSE 57; RESP 20; TEMP 96.8; O2SAT 93
[2017-09-17] MEDS: QUEtiapine FUMARATE 25 MG TAB PO SCH ×3 (05:58→20:30)
[2017-09-17 08:00] VITALS: BP 117/80; PULSE 60; RESP 18; TEMP 97.5; O2SAT 96
[2017-09-17] MEDS: VALPROIC ACID 250 MG CAP PO SCH ×2 (08:44→20:30)
[2017-09-17] MEDS: amLODIPine BESYLATE 5 MG TAB PO SCH (08:45)
[2017-09-17] MEDS: FLUoxetine HCL 20 MG CAP PO SCH (08:45)
--- NOTE | 2017-09-17 11:33 | HHI.PR ---
Subjective Remarks Patient seen and examined today for follow-up on unsafe discharge due to cognition. Patient denies any new complaints. Patient very eager to go home. Awaiting case management for discharge planning. Objective Vitals Vital Signs Date Time Temp Pulse Resp B/P (MAP) Pulse Ox O2 Delivery O2 Flow Rate FiO2 09/17/17 08:00 97.5 60 18 117/80 (92) 96 09/17/17 04:00 96.8 57 20 140/81 (100) 93 I/O 09/16/17 09/16/17 09/16/17 09/17/17 09/17/17 09/17/17 07:00 15:00 23:00 07:00 15:00 23:00 Intake Total 480 ml 840 ml 60 ml Output Total 1300 ml Balance 480 ml -460 ml 60 ml Intake Oral 480 ml 840 ml 60 ml Output Urine Total 1300 ml # Voids 3 2 # Bowel Movements 0 0 Objective Remarks GENERAL: Well-developed, well-nourished, in no acute distress. alert and orientated waxes and wanes daily HEENT: Head is normocephalic without any lesions or masses noted. Facial features are symmetric. Eyes: Extraocular muscles are intact. Conjunctivae were clear. NECK: C-collar in on table at bedside CARDIAC: Regular rhythm, regular rate. S1/S2 are heard. No murmurs gallops or rubs. LUNGS: Clear to auscultation bilaterally. No wheeze, rhonchi or rales. No use of accessory muscles on inspiration or expiration. ABDOMEN: Soft, nontender. Nondistended. Bowel sounds heard in all 4 quadrants. No organomegaly or masses. Negative rebound, negative guarding EXTREMITIES: No edema, pulses are equal bilaterally. No cyanosis or clubbing NEUROLOGY: Mood and affect appear appropriate. Cranial nerves II through XII grossly intact moving all extremities, speech is clear Urinary Catheter: No Vascular Central Line Catheter: No A/P Assessment and Plan Inability to care for self, unsafe discharge due to cognition Initially he was indicated patient cannot walk, patient is walking at this time, PT and OT recommending supervision at home for safety Speech therapy following the patient intermittently for cognitive evaluations. 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 MIni mental state 28/30, recommended avoid antipsychotics for benzodiazepine. Recommending Depakote or carbamazepine Patient is medically stable for discharge, however due to underlying psychiatric/cognition patient is unsafe discharge until arrangements made by case management Case management for discharge planning Neuropsychiatry evaluated the patient recommended patient may improve with treatment, however indicates avoid benzodiazepines and antipsychotics Continue Prozac 40 mg daily Depakene 500 mg twice daily Increased to Seroquel 50 mg every 8 hours *Discussed with psychiatry again about patient's cognition issues. He indicated that the patient lacks capacity for signing AMA or to participate in discharge plan. He is recommending that he would invite the ethics committee to the hospital to have a discussion about patient care *Consulted case management for ethics committee review, awaiting response Multiple traumatic injuries, Patient laceration, subdural hemorrhage, ventricular hemorrhage, nasal fracture, C6 fracture, C1-C2 subluxation, C4 transverse process fracture, right rib fracture, L1 transverse process fracture, right pubic rami fracture Continue c-collar this time, however patient does not wear Specialist no longer following patient, patient will require outpatient follow-up if discharge Hypertension, Amlodipine 2.5 mg daily DVT prevention Patient ambulating Sequential compression devices while in bed Records were reviewed. No change in current treatment plan. Awaiting case management for discharge planning Discharge Planning Case management for discharge planning Conrado Mariee Sep 17, 2017 11:33
[2017-09-17 20:00] VITALS: BP 142/84; PULSE 67; RESP 18; TEMP 96.8; O2SAT 95
[2017-09-17] MEDS ORDERED: diphenhydrAMINE HCL 50 MG CAP PO ONE (22:00)
[2017-09-18] MEDS: QUEtiapine FUMARATE 25 MG TAB PO SCH ×3 (06:44→21:22)
[2017-09-18 08:00] VITALS: BP 109/77; PULSE 62; RESP 16; TEMP 97; O2SAT 94
[2017-09-18] MEDS: amLODIPine BESYLATE 5 MG TAB PO SCH (08:19)
[2017-09-18] MEDS: VALPROIC ACID 250 MG CAP PO SCH ×2 (08:19→21:21)
[2017-09-18] MEDS: FLUoxetine HCL 20 MG CAP PO SCH (08:20)
--- NOTE | 2017-09-18 08:40 | HHI.PR ---
Subjective Remarks Patient seen and examined today for follow-up on unsafe discharge due to cognition. Patient states that she is having right shoulder pain today. It does not hurt whenever she moves it. Is just a dull ache. She believes that she slept wrong. Objective Vitals Vital Signs Date Time Temp Pulse Resp B/P (MAP) Pulse Ox O2 Delivery O2 Flow Rate FiO2 09/18/17 08:00 97.0 62 16 109/77 (88) 94 09/17/17 20:00 96.8 67 18 142/84 (103) 95 I/O 09/17/17 09/17/17 09/17/17 09/18/17 09/18/17 09/18/17 07:00 15:00 23:00 07:00 15:00 23:00 Intake Total 60 ml 280 ml Balance 60 ml 280 ml Intake Oral 60 ml 280 ml # Voids 2 1 # Bowel Movements 0 5 0 Objective Remarks GENERAL: Well-developed, well-nourished, in no acute distress. alert and orientated waxes and wanes daily HEENT: Head is normocephalic without any lesions or masses noted. Facial features are symmetric. Eyes: Extraocular muscles are intact. Conjunctivae were clear. NECK: C-collar in on table at bedside CARDIAC: Regular rhythm, regular rate. S1/S2 are heard. No murmurs gallops or rubs. LUNGS: Clear to auscultation bilaterally. No wheeze, rhonchi or rales. No use of accessory muscles on inspiration or expiration. ABDOMEN: Soft, nontender. Nondistended. Bowel sounds heard in all 4 quadrants. No organomegaly or masses. Negative rebound, negative guarding EXTREMITIES: No edema, pulses are equal bilaterally. No cyanosis or clubbing NEUROLOGY: Mood and affect appear appropriate. Cranial nerves II through XII grossly intact moving all extremities, speech is clear RIGHT SHOULDER: No palpable tenderness over the joint. No pain on range of motion. Mild spasm noted and right trapezius Urinary Catheter: No Vascular Central Line Catheter: No A/P Assessment and Plan Inability to care for self, unsafe discharge due to cognition Initially he was indicated patient cannot walk, patient is walking at this time, PT and OT recommending supervision at home for safety Speech therapy following the patient intermittently for cognitive evaluations. 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 MIni mental state 28/30, recommended avoid antipsychotics for benzodiazepine. Recommending Depakote or carbamazepine Patient is medically stable for discharge, however due to underlying psychiatric/cognition patient is unsafe discharge until arrangements made by case management Case management for discharge planning Neuropsychiatry evaluated the patient recommended patient may improve with treatment, however indicates avoid benzodiazepines and antipsychotics Continue Prozac 40 mg daily Depakene 500 mg twice daily Increased to Seroquel 50 mg every 8 hours *Discussed with psychiatry again about patient's cognition issues. He indicated that the patient lacks capacity for signing AMA or to participate in discharge plan. He is recommending that he would invite the ethics committee to the hospital to have a discussion about patient care *Consulted case management for ethics committee review, awaiting response Multiple traumatic injuries, Patient laceration, subdural hemorrhage, ventricular hemorrhage, nasal fracture, C6 fracture, C1-C2 subluxation, C4 transverse process fracture, right rib fracture, L1 transverse process fracture, right pubic rami fracture Continue c-collar this time, however patient does not wear Specialist no longer following patient, patient will require outpatient follow-up if discharge Hypertension, Amlodipine 2.5 mg daily DVT prevention Patient ambulating Sequential compression devices while in bed Records were reviewed. Awaiting case management for discharge planning, No change in current treatment plan. Discharge Planning Case management for discharge planning Conrado Mariee Sep 18, 2017 08:40
[2017-09-18 19:54] VITALS: O2SAT 93
[2017-09-18 20:00] VITALS: BP 152/84; PULSE 62; RESP 20; TEMP 96.8; O2SAT 96
[2017-09-19] MEDS: QUEtiapine FUMARATE 25 MG TAB PO SCH ×3 (05:36→21:42)
[2017-09-19 08:00] VITALS: BP 119/79; PULSE 60; RESP 16; TEMP 97.5; O2SAT 97
[2017-09-19] MEDS: VALPROIC ACID 250 MG CAP PO SCH ×2 (08:50→21:43)
[2017-09-19] MEDS: amLODIPine BESYLATE 5 MG TAB PO SCH (08:50)
[2017-09-19] MEDS: FLUoxetine HCL 20 MG CAP PO SCH (08:51)
--- NOTE | 2017-09-19 11:03 | HHI.PR ---
Subjective Remarks Patient seen and examined today for follow-up on unsafe discharge due to cognition. Patient states that he still has a mild pain in her shoulder that improves when she gets out of bed and ambulates. Objective Vitals Vital Signs Date Time Temp Pulse Resp B/P (MAP) Pulse Ox O2 Delivery O2 Flow Rate FiO2 09/19/17 08:00 97.5 60 16 119/79 (92) 97 09/18/17 20:00 96.8 62 20 152/84 (106) 96 09/18/17 19:54 93 21 I/O 09/18/17 09/18/17 09/18/17 09/19/17 09/19/17 09/19/17 07:00 15:00 23:00 07:00 15:00 23:00 Intake Total 280 ml 920 ml 240 ml Balance 280 ml 920 ml 240 ml Intake Oral 280 ml 920 ml 240 ml # Voids 1 8 1 # Bowel Movements 0 5 Objective Remarks GENERAL: Well-developed, well-nourished, in no acute distress. alert and orientated waxes and wanes daily HEENT: Head is normocephalic without any lesions or masses noted. Facial features are symmetric. Eyes: Extraocular muscles are intact. Conjunctivae were clear. NECK: C-collar in on table at bedside CARDIAC: Regular rhythm, regular rate. S1/S2 are heard. No murmurs gallops or rubs. LUNGS: Clear to auscultation bilaterally. No wheeze, rhonchi or rales. No use of accessory muscles on inspiration or expiration. ABDOMEN: Soft, nontender. Nondistended. Bowel sounds heard in all 4 quadrants. No organomegaly or masses. Negative rebound, negative guarding EXTREMITIES: No edema, pulses are equal bilaterally. No cyanosis or clubbing NEUROLOGY: Mood and affect appear appropriate. Cranial nerves II through XII grossly intact moving all extremities, speech is clear RIGHT SHOULDER: No palpable tenderness over the joint. No pain on range of motion. Mild spasm noted and right trapezius Urinary Catheter: No Vascular Central Line Catheter: No A/P Assessment and Plan Inability to care for self, unsafe discharge due to cognition Initially he was indicated patient cannot walk, patient is walking at this time, PT and OT recommending supervision at home for safety Speech therapy following the patient intermittently for cognitive evaluations. 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 MIni mental state 28/30, recommended avoid antipsychotics for benzodiazepine. Recommending Depakote or carbamazepine Patient is medically stable for discharge, however due to underlying psychiatric/cognition patient is unsafe discharge until arrangements made by case management Case management for discharge planning Neuropsychiatry evaluated the patient recommended patient may improve with treatment, however indicates avoid benzodiazepines and antipsychotics Continue Prozac 40 mg daily Depakene 500 mg twice daily Increased to Seroquel 50 mg every 8 hours *Discussed with psychiatry again about patient's cognition issues. He indicated that the patient lacks capacity for signing AMA or to participate in discharge plan. He is recommending that he would invite the ethics committee to the hospital to have a discussion about patient care *Consulted case management for ethics committee review, awaiting response Multiple traumatic injuries, Patient laceration, subdural hemorrhage, ventricular hemorrhage, nasal fracture, C6 fracture, C1-C2 subluxation, C4 transverse process fracture, right rib fracture, L1 transverse process fracture, right pubic rami fracture Continue c-collar this time, however patient does not wear Specialist no longer following patient, patient will require outpatient follow-up if discharge Hypertension, Amlodipine 2.5 mg daily DVT prevention Patient ambulating Sequential compression devices while in bed Records were reviewed. No change in current treatment plan. Awaiting case management for discharge planning, Discharge Planning Case management for discharge planning Conrado Mariee Sep 19, 2017 11:03
[2017-09-19 20:00] VITALS: BP 122/79; PULSE 69; RESP 17; TEMP 97.5; O2SAT 96
[2017-09-20] MEDS: QUEtiapine FUMARATE 25 MG TAB PO SCH ×3 (06:17→21:46)
[2017-09-20 08:00] VITALS: BP 115/60; PULSE 60; RESP 14; TEMP 96.6; O2SAT 93
--- NOTE | 2017-09-20 08:17 | HHI.PR ---
Subjective Remarks Patient seen and examined today for follow-up on unsafe discharge due to cognition. Patient denies any new complaints. Patient always ask when can she be discharged. Awaiting case management for discharge planning. Objective Vitals Vital Signs Date Time Temp Pulse Resp B/P (MAP) Pulse Ox O2 Delivery O2 Flow Rate FiO2 09/19/17 20:00 97.5 69 17 122/79 (93) 96 I/O 09/19/17 09/19/17 09/19/17 09/20/17 09/20/17 09/20/17 07:00 15:00 23:00 07:00 15:00 23:00 Intake Total 240 ml 650 ml 0 ml Output Total 650 ml Balance 240 ml 0 ml 0 ml Intake Oral 240 ml 650 ml 0 ml Output Urine Total 650 ml # Voids 1 0 Objective Remarks GENERAL: Well-developed, well-nourished, in no acute distress. alert and orientated waxes and wanes daily HEENT: Head is normocephalic without any lesions or masses noted. Facial features are symmetric. Eyes: Extraocular muscles are intact. Conjunctivae were clear. NECK: C-collar in on table at bedside CARDIAC: Regular rhythm, regular rate. S1/S2 are heard. No murmurs gallops or rubs. LUNGS: Clear to auscultation bilaterally. No wheeze, rhonchi or rales. No use of accessory muscles on inspiration or expiration. ABDOMEN: Soft, nontender. Nondistended. Bowel sounds heard in all 4 quadrants. No organomegaly or masses. Negative rebound, negative guarding EXTREMITIES: No edema, pulses are equal bilaterally. No cyanosis or clubbing NEUROLOGY: Mood and affect appear appropriate. Cranial nerves II through XII grossly intact moving all extremities, speech is clear Urinary Catheter: No Vascular Central Line Catheter: No A/P Assessment and Plan Inability to care for self, unsafe discharge due to cognition Initially he was indicated patient cannot walk, patient is walking at this time, PT and OT recommending supervision at home for safety Speech therapy following the patient intermittently for cognitive evaluations. 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 MIni mental state 28/30, recommended avoid antipsychotics for benzodiazepine. Recommending Depakote or carbamazepine Patient is medically stable for discharge, however due to underlying psychiatric/cognition patient is unsafe discharge until arrangements made by case management Case management for discharge planning Neuropsychiatry evaluated the patient recommended patient may improve with treatment, however indicates avoid benzodiazepines and antipsychotics Continue Prozac 40 mg daily Depakene 500 mg twice daily Increased to Seroquel 50 mg every 8 hours *Discussed with psychiatry again about patient's cognition issues. He indicated that the patient lacks capacity for signing AMA or to participate in discharge plan. He is recommending that he would invite the ethics committee to the hospital to have a discussion about patient care *Consulted case management for ethics committee review, awaiting response Multiple traumatic injuries, Patient laceration, subdural hemorrhage, ventricular hemorrhage, nasal fracture, C6 fracture, C1-C2 subluxation, C4 transverse process fracture, right rib fracture, L1 transverse process fracture, right pubic rami fracture Continue c-collar this time, however patient does not wear Specialist no longer following patient, patient will require outpatient follow-up if discharge Hypertension, Amlodipine 2.5 mg daily DVT prevention Patient ambulating Sequential compression devices while in bed Records were reviewed. Awaiting case management for discharge planning, No change in current treatment plan. Discharge Planning Case management for discharge planning Conrado Mariee Sep 20, 2017 08:17
[2017-09-20] MEDS: amLODIPine BESYLATE 5 MG TAB PO SCH (09:38)
[2017-09-20] MEDS: FLUoxetine HCL 20 MG CAP PO SCH (09:38)
[2017-09-20] MEDS: VALPROIC ACID 250 MG CAP PO SCH ×2 (09:38→21:46)
[2017-09-21] MEDS: QUEtiapine FUMARATE 25 MG TAB PO SCH ×3 (06:21→20:52)
[2017-09-21 08:00] VITALS: BP 142/83; PULSE 57; RESP 16; TEMP 97.1; O2SAT 95
[2017-09-21] MEDS: FLUoxetine HCL 20 MG CAP PO SCH (09:27)
[2017-09-21] MEDS: VALPROIC ACID 250 MG CAP PO SCH ×2 (09:27→20:52)
[2017-09-21] MEDS: amLODIPine BESYLATE 5 MG TAB PO SCH (09:29)
--- NOTE | 2017-09-21 09:30 | HHI.PR ---
Subjective Remarks Follow-up on unsafe discharge due to cognition. Patient seen and examined, lying in bed comfortably. Sitter at bedside. In good spirits today. Slept well. Denies any new acute complaints. Eating well. Ambulating. Axox3. Follows commands appropriately. Objective Vitals Vital Signs Date Time Temp Pulse Resp B/P (MAP) Pulse Ox O2 Delivery O2 Flow Rate FiO2 09/21/17 08:00 97.1 57 16 142/83 (102) 95 I/O 09/20/17 09/20/17 09/20/17 09/21/17 09/21/17 09/21/17 07:00 15:00 23:00 07:00 15:00 23:00 Intake Total 0 ml 222 ml 222 ml 220 ml Output Total 400 ml Balance 0 ml 222 ml -178 ml 220 ml Intake Oral 0 ml 222 ml 222 ml 220 ml Output Urine Total 400 ml # Voids 0 2 # Bowel Movements 0 0 Imaging Last Impressions Chest X-Ray 09/03/17 0000 Signed Impressions: Service Date/Time: Sunday, September 03, 2017 17:02 - CONCLUSION: 1. Mild edema pattern. Subsegmental basilar airspace disease most characteristic of atelectasis.. Fadi Carolina MD Cervical Spine CT 09/02/17 0000 Signed Impressions: Service Date/Time: August 12:56 - CONCLUSION: Postsurgical changes from anterior cervical plate at C6-7. No evidence of compression deformity or spondylolisthesis. Arun Regan MD Pelvis X-Ray 06/30/17 0000 Signed Impressions: Service Date/Time: Friday, June 30, 2017 12:17 - CONCLUSION: No significant change has occurred. Carlos Capps MD Objective Remarks GENERAL: Well-nourished, well-developed female lying in bed in NAD. SKIN: Warm and dry. No rash. Right breast lesion noted, no drainage noted, open to air. HEENT: Normocephalic. Atraumatic. Pupils equal and round. No scleral icterus. No injection or drainage. No nasal bleeding or discharge. Mucous membranes pink and moist. NECK: Supple. Trachea midline. CARDIOVASCULAR: Regular rate and rhythm. S1, S2 noted. No murmur appreciated. RESPIRATORY: No accessory muscle use. Clear to auscultation. Breath sounds equal bilaterally. GASTROINTESTINAL: Abdomen soft, non-tender, nondistended. Normoactive bowel sounds x4. No guarding noted. MUSCULOSKELETAL: No obvious deformities. Extremities without clubbing, cyanosis , or edema. NEUROLOGICAL: Awake and alert. No obvious cranial nerve deficits. Motor grossly within normal limits. 5/5 muscle strength in bilateral upper and lower extremities. Normal speech. PSYCHIATRIC: Appropriate mood and affect. A/P Problem List: (1) Alcohol dependence in controlled environment ICD Code: F10.20 - Alcohol dependence, uncomplicated Status: Chronic (2) Facial injury ICD Code: S09.93XA - Unspecified injury of face, initial encounter Status: Acute (3) Fall ICD Code: W19.XXXA - Unspecified fall, initial encounter Status: Acute (4) Hypertension ICD Code: I10 - Essential (primary) hypertension Status: Acute (5) Pelvic fracture ICD Code: S32.9XXA - Fracture of unspecified parts of lumbosacral spine and pelvis, initial encounter for closed fracture Status: Acute (6) C1-C2 subluxation ICD Code: S13.120A - Subluxation of C1/C2 cervical vertebrae, initial encounter Status: Acute (7) C6 cervical fracture ICD Code: S12.500A - Unspecified displaced fracture of sixth cervical vertebra , initial encounter for closed fracture Status: Acute (8) Traumatic brain injury ICD Code: S06.9X9A - Unspecified intracranial injury with loss of consciousness of unspecified duration, initial encounter Status: Acute (9) Nasal fracture ICD Code: S02.2XXA - Fracture of nasal bones, initial encounter for closed fracture Status: Acute (10) Mild neurocognitive disorder ICD Code: G31.84 - Mild cognitive impairment, so stated Status: Acute (11) Intracranial bleed ICD Code: I62.9 - Nontraumatic intracranial hemorrhage, unspecified Status: Acute Assessment and Plan Inability to care for self, unsafe discharge due to cognition Initially it was indicated patient cannot walk, patient is walking at this time, PT and OT recommending supervision at home for safety. Speech therapy following the patient intermittently for cognitive evaluations. MOCA score 24/30, she needs to have supervision. 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 Mini mental state 28/30, recommended avoid antipsychotics for benzodiazepine. Recommending Depakote or carbamazepine Neuropsychiatry evaluated the patient recommended patient may improve with treatment, however indicates avoid benzodiazepines and antipsychotics. Continue Prozac 40 mg daily Depakene 500 mg twice daily Seroquel 50 mg every 8 hours *Psychiatry has seen patient and indicated that the patient lacks capacity for signing AMA or to participate in discharge plan. Recommendations for ethics committee to the hospital and discuss patient care and plan. Case management following and requested for ethics committee review. No update from regarding status of ethics committee. Low blood pressure with mild hypoxia, resolved. BP now stable and controlled. Monitor BP trends. Denies any dyspnea. Status post saline bolus 500 cc. IVF dc'd. Chest x-ray was performed and reviewed that indicated mild edema with atelectasis Continue incentive spirometry. Multiple traumatic injuries Patient laceration, subdural hemorrhage, ventricular hemorrhage, nasal fracture, C6 fracture, C1-C2 subluxation, C4 transverse process fracture, right rib fracture, L1 transverse process fracture, right pubic rami fracture Continue c-collar this time, however patient does not wear. Specialist no longer following patient, patient will require outpatient follow-up if discharge. Hypertension: Stable at this time. Continue Amlodipine 2.5 mg daily. Continue to monitor trends. Right nipple lesion: No drainage at this time. Denies any recent mammogram. Patient would likely benefit from outpatient mammography and workup, however the patient did not have a tentative discharge planning. Could possibly do inpatient workup will need to check with the hospital see if they do inpatient mammograms. Will follow. DVT prevention: SCDs. Ambulation. Discharge Planning Patient is medically stable for discharge, however due to underlying psychiatric /cognition patient is unsafe discharge until arrangements made by case management Problem Qualifiers (1) Hypertension: Qualified Codes: I10 - Essential (primary) hypertension Alyssa Means Sep 21, 2017 09:30
[2017-09-21 20:00] VITALS: BP 167/96; PULSE 59; RESP 18; TEMP 98.6; O2SAT 94
[2017-09-22] MEDS: QUEtiapine FUMARATE 25 MG TAB PO SCH ×3 (06:00→20:39)
[2017-09-22 07:50] VITALS: BP 133/81; PULSE 71; RESP 20; TEMP 97.4; O2SAT 95
--- NOTE | 2017-09-22 08:02 | HHI.PR ---
Subjective Remarks Follow-up on unsafe discharge due to cognition. Patient seen and examined, sitter with patient. Walking the halls. In no apparent distress. Denies any new acute complaints overnight. Does express concern regarding breast lesion. Lesion assessed today. No drainage noted. Spoke with CM regarding possibility of obtaining a mammogram while hospitalized. Will continue to inquire. Patient eating well. VSS. Objective Vitals Vital Signs Date Time Temp Pulse Resp B/P (MAP) Pulse Ox O2 Delivery O2 Flow Rate FiO2 09/21/17 20:00 98.6 59 18 167/96 (119) 94 I/O 09/21/17 09/21/17 09/21/17 09/22/17 09/22/17 09/22/17 07:00 15:00 23:00 07:00 15:00 23:00 Intake Total 220 ml 480 ml 0 ml 180 ml Balance 220 ml 480 ml 0 ml 180 ml Intake Oral 220 ml 480 ml 180 ml IV Total 0 ml # Voids 2 4 1 # Bowel Movements 0 0 Imaging Last Impressions Chest X-Ray 09/03/17 0000 Signed Impressions: Service Date/Time: Sunday, September 03, 2017 17:02 - CONCLUSION: 1. Mild edema pattern. Subsegmental basilar airspace disease most characteristic of atelectasis.. Fadi Carolina MD Cervical Spine CT 09/02/17 0000 Signed Impressions: Service Date/Time: August 12:56 - CONCLUSION: Postsurgical changes from anterior cervical plate at C6-7. No evidence of compression deformity or spondylolisthesis. Arun Regan MD Pelvis X-Ray 06/30/17 0000 Signed Impressions: Service Date/Time: Friday, June 30, 2017 12:17 - CONCLUSION: No significant change has occurred. Carlos Capps MD Objective Remarks GENERAL: Well-nourished, well-developed female lying in bed in NAD. SKIN: Warm and dry. No rash. Right breast lesion noted, no drainage noted, open to air. HEENT: Normocephalic. Atraumatic. Pupils equal and round. No scleral icterus. No injection or drainage. No nasal bleeding or discharge. Mucous membranes pink and moist. NECK: Supple. Trachea midline. CARDIOVASCULAR: Regular rate and rhythm. S1, S2 noted. No murmur appreciated. RESPIRATORY: No accessory muscle use. Clear to auscultation. Breath sounds equal bilaterally. GASTROINTESTINAL: Abdomen soft, non-tender, nondistended. Normoactive bowel sounds x4. No guarding noted. MUSCULOSKELETAL: No obvious deformities. Extremities without clubbing, cyanosis , or edema. NEUROLOGICAL: Awake and alert. No obvious cranial nerve deficits. Motor grossly within normal limits. 5/5 muscle strength in bilateral upper and lower extremities. Normal speech. PSYCHIATRIC: Appropriate mood and affect. A/P Problem List: (1) Alcohol dependence in controlled environment ICD Code: F10.20 - Alcohol dependence, uncomplicated Status: Chronic (2) Facial injury ICD Code: S09.93XA - Unspecified injury of face, initial encounter Status: Acute (3) Fall ICD Code: W19.XXXA - Unspecified fall, initial encounter Status: Acute (4) Hypertension ICD Code: I10 - Essential (primary) hypertension Status: Acute (5) Pelvic fracture ICD Code: S32.9XXA - Fracture of unspecified parts of lumbosacral spine and pelvis, initial encounter for closed fracture Status: Acute (6) C1-C2 subluxation ICD Code: S13.120A - Subluxation of C1/C2 cervical vertebrae, initial encounter Status: Acute (7) C6 cervical fracture ICD Code: S12.500A - Unspecified displaced fracture of sixth cervical vertebra , initial encounter for closed fracture Status: Acute (8) Traumatic brain injury ICD Code: S06.9X9A - Unspecified intracranial injury with loss of consciousness of unspecified duration, initial encounter Status: Acute (9) Nasal fracture ICD Code: S02.2XXA - Fracture of nasal bones, initial encounter for closed fracture Status: Acute (10) Mild neurocognitive disorder ICD Code: G31.84 - Mild cognitive impairment, so stated Status: Acute (11) Intracranial bleed ICD Code: I62.9 - Nontraumatic intracranial hemorrhage, unspecified Status: Acute Assessment and Plan Inability to care for self, unsafe discharge due to cognition Initially it was indicated patient cannot walk, patient is walking at this time, PT and OT recommending supervision at home for safety. Speech therapy following the patient intermittently for cognitive evaluations. MOCA score 24/30, she needs to have supervision. 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 Mini mental state 28/30, recommended avoid antipsychotics for benzodiazepine. Recommending Depakote or carbamazepine Neuropsychiatry evaluated the patient recommended patient may improve with treatment, however indicates avoid benzodiazepines and antipsychotics. Continue Prozac 40 mg daily Depakene 500 mg twice daily Seroquel 50 mg every 8 hours *Psychiatry has seen patient and indicated that the patient lacks capacity for signing AMA or to participate in discharge plan. Recommendations for ethics committee to the hospital and discuss patient care and plan. Case management following and requested for ethics committee review. No update from regarding status of ethics committee. Low blood pressure with mild hypoxia, resolved. BP now stable and controlled. Monitor BP trends. Denies any dyspnea. Status post saline bolus 500 cc. IVF dc'd. Chest x-ray was performed and reviewed that indicated mild edema with atelectasis Continue incentive spirometry. Multiple traumatic injuries Patient laceration, subdural hemorrhage, ventricular hemorrhage, nasal fracture, C6 fracture, C1-C2 subluxation, C4 transverse process fracture, right rib fracture, L1 transverse process fracture, right pubic rami fracture Continue c-collar this time, however patient does not wear. Specialist no longer following patient, patient will require outpatient follow-up if discharge. Hypertension: Stable at this time. Continue Amlodipine 2.5 mg daily. Continue to monitor trends. Right nipple lesion: No drainage at this time. Denies any recent mammogram. Patient would likely benefit from outpatient mammography and workup, however the patient did not have a tentative discharge planning. Could possibly do inpatient workup will need to check with the hospital see if they do inpatient mammograms. Will follow. May perform further imaging, continue to monitor. DVT prevention: SCDs. Ambulation. Discharge Planning Patient is medically stable for discharge, however due to underlying psychiatric /cognition patient is unsafe discharge until arrangements made by case management Problem Qualifiers (1) Hypertension: Qualified Codes: I10 - Essential (primary) hypertension Alyssa Means Sep 22, 2017 08:02
[2017-09-22] MEDS: amLODIPine BESYLATE 5 MG TAB PO SCH (10:20)
[2017-09-22] MEDS: FLUoxetine HCL 20 MG CAP PO SCH (10:21)
[2017-09-22] MEDS: VALPROIC ACID 250 MG CAP PO SCH ×2 (10:21→20:40)
[2017-09-22 20:00] VITALS: BP 128/72; PULSE 72; RESP 16; TEMP 97.7; O2SAT 95
[2017-09-23] MEDS: QUEtiapine FUMARATE 25 MG TAB PO SCH ×3 (06:01→21:54)
[2017-09-23 07:50] VITALS: BP 142/89; PULSE 61; RESP 20; TEMP 98.6; O2SAT 93
[2017-09-23] MEDS: amLODIPine BESYLATE 5 MG TAB PO SCH (09:36)
[2017-09-23] MEDS: FLUoxetine HCL 20 MG CAP PO SCH (09:36)
[2017-09-23] MEDS: VALPROIC ACID 250 MG CAP PO SCH ×2 (09:36→21:54)
--- NOTE | 2017-09-23 11:34 | HHI.PR ---
Subjective Remarks Follow-up on unsafe discharge due to cognition. Patient seen and examined lying in bed comfortably. Affect appropriate. Follows commands. Pleasantly confused. Eating well. Ambulating. Ultrasound performed on right breast today. Objective Vitals Vital Signs Date Time Temp Pulse Resp B/P (MAP) Pulse Ox O2 Delivery O2 Flow Rate FiO2 09/23/17 07:50 98.6 61 20 142/89 (106) 93 09/22/17 20:00 97.7 72 16 128/72 (90) 95 I/O 09/22/17 09/22/17 09/22/17 09/23/17 09/23/17 09/23/17 07:00 15:00 23:00 07:00 15:00 23:00 Intake Total 180 ml 442 ml Output Total 700 ml Balance 180 ml -258 ml Intake Oral 180 ml 442 ml Output Urine Total 700 ml # Voids 1 0 # Bowel Movements 0 0 Imaging Last Impressions Chest X-Ray 09/03/17 0000 Signed Impressions: Service Date/Time: Sunday, September 03, 2017 17:02 - CONCLUSION: 1. Mild edema pattern. Subsegmental basilar airspace disease most characteristic of atelectasis.. Fadi Carolina MD Cervical Spine CT 09/02/17 0000 Signed Impressions: Service Date/Time: August 12:56 - CONCLUSION: Postsurgical changes from anterior cervical plate at C6-7. No evidence of compression deformity or spondylolisthesis. Arun Regan MD Pelvis X-Ray 06/30/17 0000 Signed Impressions: Service Date/Time: Friday, June 30, 2017 12:17 - CONCLUSION: No significant change has occurred. Carlos Capps MD Objective Remarks GENERAL: Well-nourished, well-developed female lying in bed in NAD. SKIN: Warm and dry. No rash. Right breast lesion noted, no drainage noted, open to air. HEENT: Normocephalic. Atraumatic. Pupils equal and round. No scleral icterus. No injection or drainage. No nasal bleeding or discharge. Mucous membranes pink and moist. NECK: Supple. Trachea midline. CARDIOVASCULAR: Regular rate and rhythm. S1, S2 noted. No murmur appreciated. RESPIRATORY: No accessory muscle use. Clear to auscultation. Breath sounds equal bilaterally. GASTROINTESTINAL: Abdomen soft, non-tender, nondistended. Normoactive bowel sounds x4. No guarding noted. MUSCULOSKELETAL: No obvious deformities. Extremities without clubbing, cyanosis , or edema. NEUROLOGICAL: Awake and alert. No obvious cranial nerve deficits. Motor grossly within normal limits. 5/5 muscle strength in bilateral upper and lower extremities. Normal speech. PSYCHIATRIC: Appropriate mood and affect. A/P Problem List: (1) Alcohol dependence in controlled environment ICD Code: F10.20 - Alcohol dependence, uncomplicated Status: Chronic (2) Facial injury ICD Code: S09.93XA - Unspecified injury of face, initial encounter Status: Acute (3) Fall ICD Code: W19.XXXA - Unspecified fall, initial encounter Status: Acute (4) Hypertension ICD Code: I10 - Essential (primary) hypertension Status: Acute (5) Pelvic fracture ICD Code: S32.9XXA - Fracture of unspecified parts of lumbosacral spine and pelvis, initial encounter for closed fracture Status: Acute (6) C1-C2 subluxation ICD Code: S13.120A - Subluxation of C1/C2 cervical vertebrae, initial encounter Status: Acute (7) C6 cervical fracture ICD Code: S12.500A - Unspecified displaced fracture of sixth cervical vertebra , initial encounter for closed fracture Status: Acute (8) Traumatic brain injury ICD Code: S06.9X9A - Unspecified intracranial injury with loss of consciousness of unspecified duration, initial encounter Status: Acute (9) Nasal fracture ICD Code: S02.2XXA - Fracture of nasal bones, initial encounter for closed fracture Status: Acute (10) Mild neurocognitive disorder ICD Code: G31.84 - Mild cognitive impairment, so stated Status: Acute (11) Intracranial bleed ICD Code: I62.9 - Nontraumatic intracranial hemorrhage, unspecified Status: Acute Assessment and Plan Inability to care for self, unsafe discharge due to cognition Initially it was indicated patient cannot walk, patient is walking at this time, PT and OT recommending supervision at home for safety. Speech therapy following the patient intermittently for cognitive evaluations. MOCA score 24/30, she needs to have supervision. 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 Mini mental state 28/30, recommended avoid antipsychotics for benzodiazepine. Recommending Depakote or carbamazepine Neuropsychiatry evaluated the patient recommended patient may improve with treatment, however indicates avoid benzodiazepines and antipsychotics. Continue Prozac 40 mg daily Depakene 500 mg twice daily Seroquel 50 mg every 8 hours *Psychiatry has seen patient and indicated that the patient lacks capacity for signing AMA or to participate in discharge plan. Recommendations for ethics committee to the hospital and discuss patient care and plan. Case management following and requested for ethics committee review. No update from CM regarding status of ethics committee. Low blood pressure with mild hypoxia, resolved. BP now stable and controlled. Monitor BP trends. Denies any dyspnea. Status post saline bolus 500 cc. IVF dc'd. Chest x-ray was performed and reviewed that indicated mild edema with atelectasis Continue incentive spirometry. Multiple traumatic injuries Patient laceration, subdural hemorrhage, ventricular hemorrhage, nasal fracture, C6 fracture, C1-C2 subluxation, C4 transverse process fracture, right rib fracture, L1 transverse process fracture, right pubic rami fracture Continue c-collar this time, however patient does not wear. Specialist no longer following patient, patient will require outpatient follow-up if discharge. Hypertension: Stable at this time. Continue Amlodipine 2.5 mg daily. Continue to monitor trends. Right nipple lesion: No drainage at this time. Denies any recent mammogram. Patient would likely benefit from outpatient mammography and workup, however the patient did not have a tentative discharge planning. Could possibly do inpatient workup will need to check with the hospital see if they do inpatient mammograms. CM assisting. Right breast ultrasound ordered. DVT prevention: SCDs. Ambulation. Discharge Planning Patient is medically stable for discharge, however due to underlying psychiatric /cognition patient is unsafe discharge until arrangements made by case management Problem Qualifiers (1) Hypertension: Qualified Codes: I10 - Essential (primary) hypertension Alyssa Means Sep 23, 2017 11:34
--- NOTE | 2017-09-23 14:11 | RADRPT ---
EXAM DATE/TIME: 09/23/2017 09:57 [facility] COMPARISON: No previous studies available for comparison. INDICATIONS : Right breast abscess with drainage. MEDICAL HISTORY : Arthritis. Osteoporosis. Bilateral macular degeneration. Stroke blood clot. CVA. HTN. Pelvic and ce rvical fracture. ETOH abuse. SURGICAL HISTORY : Right leg surgery. Blood transfusions. ENCOUNTER: Initial ACUITY: 3 days PAIN SCORE: 0/10 LOCATION: Right breast. FINDINGS: There is a very superficially located complex collection which involves the skin and subcutaneous tis sues at 12:00 2 cm from the right nipple and measures 2.4 x 1.7 x 1.8 cm. This may represent a small breast abscess. Clinical correlation is recommended. Culture of the contents of this area would be he lpful for further treatment. CONCLUSION: Very superficially located complex collection which involves the skin and subcutaneous tissues at 12: 00 2 cm from the right nipple which measures 2.4 x 1.7 x 1.8 cm. This may represent a small breast ab scess. Clinical correlation is recommended. Culture of the contents of this area would be helpful for further treatment. Angel Toure MD on September 23, 2017 at 14:06 Board Certified Radiologist. This report was verified electronically.
[2017-09-24 04:00] VITALS: BP 148/80; PULSE 64; RESP 16; TEMP 97.7; O2SAT 93
[2017-09-24] MEDS: QUEtiapine FUMARATE 25 MG TAB PO SCH ×3 (05:33→20:57)
[2017-09-24] MEDS: VALPROIC ACID 250 MG CAP PO SCH ×2 (08:03→20:57)
[2017-09-24] MEDS: amLODIPine BESYLATE 5 MG TAB PO SCH (08:03)
[2017-09-24] MEDS: FLUoxetine HCL 20 MG CAP PO SCH (08:03)
[2017-09-24 08:39] VITALS: BP 141/96; PULSE 57; RESP 14; TEMP 96.9; O2SAT 94
--- NOTE | 2017-09-24 08:49 | HHI.PR ---
Subjective Remarks Follow-up on unsafe discharge due to cognition. Patient seen and examined, sitting up in bed comfortably. Very pleasant, in good spirits today. Continue confusion regarding situation and place. Denies any acute events. No change in clinical condition. Objective Vitals Vital Signs Date Time Temp Pulse Resp B/P (MAP) Pulse Ox O2 Delivery O2 Flow Rate FiO2 09/24/17 08:39 96.9 57 14 141/96 (111) 94 09/24/17 04:00 97.7 64 16 148/80 (102) 93 I/O 09/23/17 09/23/17 09/23/17 09/24/17 09/24/17 09/24/17 07:00 15:00 23:00 07:00 15:00 23:00 Intake Total 401 ml 240 ml Balance 401 ml 240 ml Intake Oral 401 ml 240 ml # Voids 0 2 2 # Bowel Movements 2 1 Objective Remarks GENERAL: Well-nourished, well-developed female lying in bed in [facility]. SKIN: Warm and dry. No rash. Right breast lesion noted, no drainage noted, open to air. HEENT: Normocephalic. Atraumatic. Pupils equal and round. No scleral icterus. No injection or drainage. No nasal bleeding or discharge. Mucous membranes pink and moist. NECK: Supple. Trachea midline. CARDIOVASCULAR: Regular rate and rhythm. S1, S2 noted. No murmur appreciated. RESPIRATORY: No accessory muscle use. Clear to auscultation. Breath sounds equal bilaterally. GASTROINTESTINAL: Abdomen soft, non-tender, nondistended. Normoactive bowel sounds x4. No guarding noted. MUSCULOSKELETAL: No obvious deformities. Extremities without clubbing, cyanosis , or edema. NEUROLOGICAL: Awake and alert. No obvious cranial nerve deficits. Motor grossly within normal limits. 5/5 muscle strength in bilateral upper and lower extremities. Normal speech. PSYCHIATRIC: Appropriate mood and affect. A/P Problem List: (1) Alcohol dependence in controlled environment ICD Code: F10.20 - Alcohol dependence, uncomplicated Status: Chronic (2) Facial injury ICD Code: S09.93XA - Unspecified injury of face, initial encounter Status: Acute (3) Fall ICD Code: W19.XXXA - Unspecified fall, initial encounter Status: Acute (4) Hypertension ICD Code: I10 - Essential (primary) hypertension Status: Acute (5) Pelvic fracture ICD Code: S32.9XXA - Fracture of unspecified parts of lumbosacral spine and pelvis, initial encounter for closed fracture Status: Acute (6) C1-C2 subluxation ICD Code: S13.120A - Subluxation of C1/C2 cervical vertebrae, initial encounter Status: Acute (7) C6 cervical fracture ICD Code: S12.500A - Unspecified displaced fracture of sixth cervical vertebra , initial encounter for closed fracture Status: Acute (8) Traumatic brain injury ICD Code: S06.9X9A - Unspecified intracranial injury with loss of consciousness of unspecified duration, initial encounter Status: Acute (9) Nasal fracture ICD Code: S02.2XXA - Fracture of nasal bones, initial encounter for closed fracture Status: Acute (10) Mild neurocognitive disorder ICD Code: G31.84 - Mild cognitive impairment, so stated Status: Acute (11) Intracranial bleed ICD Code: I62.9 - Nontraumatic intracranial hemorrhage, unspecified Status: Acute Assessment and Plan Inability to care for self, unsafe discharge due to cognition Initially it was indicated patient cannot walk, patient is walking at this time, PT and OT recommending supervision at home for safety. Speech therapy following the patient intermittently for cognitive evaluations. MOCA score 24/30, she needs to have supervision. 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 Mini mental state 28/30, recommended avoid antipsychotics for benzodiazepine. Recommending Depakote or carbamazepine Neuropsychiatry evaluated the patient recommended patient may improve with treatment, however indicates avoid benzodiazepines and antipsychotics. Continue Prozac 40 mg daily Depakene 500 mg twice daily Seroquel 50 mg every 8 hours *Psychiatry has seen patient and indicated that the patient lacks capacity for signing AMA or to participate in discharge plan. Recommendations for ethics committee to the hospital and discuss patient care and plan. Case management following and requested for ethics committee review. No update from regarding status of ethics committee. Low blood pressure with mild hypoxia, resolved. BP now stable and controlled. Monitor BP trends. Denies any dyspnea. Status post saline bolus 500 cc. IVF dc'd. Chest x-ray was performed and reviewed that indicated mild edema with atelectasis Continue incentive spirometry. Multiple traumatic injuries Patient laceration, subdural hemorrhage, ventricular hemorrhage, nasal fracture, C6 fracture, C1-C2 subluxation, C4 transverse process fracture, right rib fracture, L1 transverse process fracture, right pubic rami fracture Continue c-collar this time, however patient does not wear. Specialist no longer following patient, patient will require outpatient follow-up if discharge. Hypertension: Stable at this time. Continue Amlodipine 2.5 mg daily. Continue to monitor trends. Right nipple abscess - No drainage at this time. Right breast ultrasound ordered and reviewed showing very superficially located complex collection which involves the skin and subcutaneous tissues measuring 2.4x1.7x1.8cm, may represent a small breast abscess. Wound culture ordered if any abscess drainage. Will possibly consult general surgery if worsening. Continue close monitoring. - Patient denies any recent mammogram. Patient would likely benefit from outpatient mammography and workup, however the patient did not have a tentative discharge planning. Could possibly do inpatient workup will need to check with the hospital see if they do inpatient mammograms. CM assisting. DVT prevention: SCDs. Ambulation. Discharge Planning Patient is medically stable for discharge, however due to underlying psychiatric /cognition patient is unsafe discharge until arrangements made by case management Problem Qualifiers (1) Hypertension: Qualified Codes: I10 - Essential (primary) hypertension Alyssa Means Sep 24, 2017 08:49
[2017-09-24 10:22] LABS: CHLORIDE 102 MEQ/L (98-107); SODIUM (NA) 140 MEQ/L (136-145)
[2017-09-24 10:27] LABS: BICARBONATE 29.4 MEQ/L (21.0-32.0); BLOOD UREA NITROGEN 22 MG/DL (7-18); CALCIUM 9.2 MG/DL (8.5-10.1); GLUCOSE,RANDOM 84 MG/DL (74-106)
[2017-09-24 10:30] LABS: ALT (GPT) 8 U/L (10-53); AST (GOT) 6 U/L (15-37)
[2017-09-24 10:31] LABS: CREATININE 0.74 MG/DL (0.50-1.00); GLOMERULAR FILTRATION RATE 81 ML/MIN (>89)
[2017-09-24 10:32] LABS: TOTAL BILIRUBIN ADULT 0.4 MG/DL (0.2-1.0); TOTAL PROTEIN 6.7 GM/DL (6.4-8.2)
[2017-09-24 10:33] LABS: ALKALINE PHOSPHATASE 59 U/L (45-117)
[2017-09-24 17:08] LABS: AUTOMATED NEUTROPHIL # 4.7 TH/MM3 (1.8-7.7); BASOPHIL # 0.1 TH/MM3 (0-0.2); BASOPHIL % 1.9 % (0.0-2.0); EOSINOPHIL # 0.1 TH/MM3 (0-0.4); EOSINOPHIL % 1.8 % (0.0-4.0); HEMATOCRIT 34.8 % (35.0-46.0); HEMOGLOBIN 11.5 GM/DL (11.6-15.3); LYMPH % 27.1 % (9.0-44.0); MEAN CELL VOLUME 92.3 FL (80.0-100.0); MEAN CORPUSCULAR HEMOGLOBIN 30.5 PG (27.0-34.0); MEAN PLATELET VOLUME 8.6 FL (7.0-11.0); MONO % 7.4 % (0.0-8.0); MONOCYTE # 0.5 TH/MM3 (0-0.9); NEUT % 61.8 % (16.0-70.0); PLATELET COUNT 102 TH/MM3 (150-450); RED BLOOD COUNT 3.77 MIL/MM3 (4.00-5.30); RED CELL DISTRIBUTION WIDTH 13.9 % (11.6-17.2); WHITE BLOOD COUNT 7.4 TH/MM3 (4.0-11.0)
[2017-09-24 20:00] VITALS: BP 141/77; PULSE 65; RESP 20; TEMP 96.8; O2SAT 94
[2017-09-25] MEDS: QUEtiapine FUMARATE 25 MG TAB PO SCH ×3 (06:00→21:17)
[2017-09-25 08:00] VITALS: BP 127/84; PULSE 59; RESP 16; TEMP 98.4; O2SAT 92
[2017-09-25] MEDS: FLUoxetine HCL 20 MG CAP PO SCH (09:38)
[2017-09-25] MEDS: VALPROIC ACID 250 MG CAP PO SCH ×2 (09:38→21:17)
[2017-09-25] MEDS: amLODIPine BESYLATE 5 MG TAB PO SCH (09:38)
--- NOTE | 2017-09-25 15:19 | HHI.PR ---
Subjective Remarks Follow-up on unsafe discharge due to cognition. Patient seen and examined, sitting up in no distress. No change in condition. Still pleasantly confused. VSS. Objective Vitals Vital Signs Date Time Temp Pulse Resp B/P (MAP) Pulse Ox O2 Delivery O2 Flow Rate FiO2 09/25/17 08:00 98.4 59 16 127/84 (98) 92 09/24/17 20:00 96.8 65 20 141/77 (98) 94 I/O 09/24/17 09/24/17 09/24/17 09/25/17 09/25/17 09/25/17 07:00 15:00 23:00 07:00 15:00 23:00 Intake Total 240 ml 1000 ml 240 ml 720 ml Balance 240 ml 1000 ml 240 ml 720 ml Intake Oral 240 ml 1000 ml 240 ml 720 ml # Voids 2 5 3 4 # Bowel Movements 1 5 1 Result Diagram: 09/24/17 1552 09/24/17 0935 Imaging Last Impressions Breast Ultrasound 09/23/17 0000 Signed Impressions: Service Date/Time: September 09:57 - CONCLUSION: Very superficially located complex collection which involves the skin and subcutaneous tissues at 12:00 2 cm from the right nipple which measures 2.4 x 1.7 x 1.8 cm. This may represent a small breast abscess. Clinical correlation is recommended. Culture of the contents of this area would be helpful for further treatment. Angel Toure MD Chest X-Ray 09/03/17 0000 Signed Impressions: Service Date/Time: Sunday, September 03, 2017 17:02 - CONCLUSION: 1. Mild edema pattern. Subsegmental basilar airspace disease most characteristic of atelectasis.. Fadi Carolina MD Cervical Spine CT 09/02/17 0000 Signed Impressions: Service Date/Time: August 12:56 - CONCLUSION: Postsurgical changes from anterior cervical plate at C6-7. No evidence of compression deformity or spondylolisthesis. Arun Regan MD Pelvis X-Ray 06/30/17 0000 Signed Impressions: Service Date/Time: Friday, June 30, 2017 12:17 - CONCLUSION: No significant change has occurred. Carlos Capps MD Objective Remarks GENERAL: Well-nourished, well-developed female lying in bed in [facility]. SKIN: Warm and dry. No rash. Right breast lesion noted, no drainage noted, open to air. HEENT: Normocephalic. Atraumatic. Pupils equal and round. No scleral icterus. No injection or drainage. No nasal bleeding or discharge. Mucous membranes pink and moist. NECK: Supple. Trachea midline. CARDIOVASCULAR: Regular rate and rhythm. S1, S2 noted. No murmur appreciated. RESPIRATORY: No accessory muscle use. Clear to auscultation. Breath sounds equal bilaterally. GASTROINTESTINAL: Abdomen soft, non-tender, nondistended. Normoactive bowel sounds x4. No guarding noted. MUSCULOSKELETAL: No obvious deformities. Extremities without clubbing, cyanosis , or edema. NEUROLOGICAL: Awake and alert. No obvious cranial nerve deficits. Motor grossly within normal limits. 5/5 muscle strength in bilateral upper and lower extremities. Normal speech. PSYCHIATRIC: Appropriate mood and affect. A/P Problem List: (1) Alcohol dependence in controlled environment ICD Code: F10.20 - Alcohol dependence, uncomplicated Status: Chronic (2) Facial injury ICD Code: S09.93XA - Unspecified injury of face, initial encounter Status: Acute (3) Fall ICD Code: W19.XXXA - Unspecified fall, initial encounter Status: Acute (4) Hypertension ICD Code: I10 - Essential (primary) hypertension Status: Acute (5) Pelvic fracture ICD Code: S32.9XXA - Fracture of unspecified parts of lumbosacral spine and pelvis, initial encounter for closed fracture Status: Acute (6) C1-C2 subluxation ICD Code: S13.120A - Subluxation of C1/C2 cervical vertebrae, initial encounter Status: Acute (7) C6 cervical fracture ICD Code: S12.500A - Unspecified displaced fracture of sixth cervical vertebra , initial encounter for closed fracture Status: Acute (8) Traumatic brain injury ICD Code: S06.9X9A - Unspecified intracranial injury with loss of consciousness of unspecified duration, initial encounter Status: Acute (9) Nasal fracture ICD Code: S02.2XXA - Fracture of nasal bones, initial encounter for closed fracture Status: Acute (10) Mild neurocognitive disorder ICD Code: G31.84 - Mild cognitive impairment, so stated Status: Acute (11) Intracranial bleed ICD Code: I62.9 - Nontraumatic intracranial hemorrhage, unspecified Status: Acute Assessment and Plan Inability to care for self, unsafe discharge due to cognition Initially it was indicated patient cannot walk, patient is walking at this time, PT and OT recommending supervision at home for safety. Speech therapy following the patient intermittently for cognitive evaluations. MOCA score 24/30, she needs to have supervision. 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 Mini mental state 28/30, recommended avoid antipsychotics for benzodiazepine. Recommending Depakote or carbamazepine Neuropsychiatry evaluated the patient recommended patient may improve with treatment, however indicates avoid benzodiazepines and antipsychotics. Continue Prozac 40 mg daily Depakene 500 mg twice daily Seroquel 50 mg every 8 hours *Psychiatry has seen patient and indicated that the patient lacks capacity for signing AMA or to participate in discharge plan. Recommendations for ethics committee to the hospital and discuss patient care and plan. Case management following and requested for ethics committee review. No update from CM regarding status of ethics committee. Low blood pressure with mild hypoxia, resolved. BP now stable and controlled. Monitor BP trends. Denies any dyspnea. Status post saline bolus 500 cc. IVF dc'd. Chest x-ray was performed and reviewed that indicated mild edema with atelectasis Continue incentive spirometry. Multiple traumatic injuries Patient laceration, subdural hemorrhage, ventricular hemorrhage, nasal fracture, C6 fracture, C1-C2 subluxation, C4 transverse process fracture, right rib fracture, L1 transverse process fracture, right pubic rami fracture Continue c-collar this time, however patient does not wear. Specialist no longer following patient, patient will require outpatient follow-up if discharge. Hypertension: Stable at this time. Continue Amlodipine 2.5 mg daily. Continue to monitor trends. Right nipple abscess - No drainage at this time. Right breast ultrasound ordered and reviewed showing very superficially located complex collection which involves the skin and subcutaneous tissues measuring 2.4x1.7x1.8cm, may represent a small breast abscess. Wound culture ordered if any abscess drainage. Will possibly consult general surgery if worsening. Continue close monitoring. - Patient denies any recent mammogram. Patient would likely benefit from outpatient mammography and workup, however the patient did not have a tentative discharge planning. Could possibly do inpatient workup will need to check with the hospital see if they do inpatient mammograms. CM assisting. DVT prevention: SCDs. Ambulation. Discharge Planning Patient is medically stable for discharge, however due to underlying psychiatric /cognition patient is unsafe discharge until arrangements made by case management Problem Qualifiers (1) Hypertension: Qualified Codes: I10 - Essential (primary) hypertension Alyssa Means Sep 25, 2017 15:19
[2017-09-25 20:04] VITALS: BP 114/76; PULSE 59; RESP 14; TEMP 98.7; O2SAT 93
[2017-09-26] MEDS: QUEtiapine FUMARATE 25 MG TAB PO SCH ×3 (05:58→21:54)
[2017-09-26 08:15] VITALS: BP 140/77; PULSE 68; RESP 17; TEMP 97.3; O2SAT 95
[2017-09-26] MEDS: FLUoxetine HCL 20 MG CAP PO SCH (08:17)
[2017-09-26] MEDS: VALPROIC ACID 250 MG CAP PO SCH ×2 (08:17→21:54)
[2017-09-26] MEDS: amLODIPine BESYLATE 5 MG TAB PO SCH (08:17)
--- NOTE | 2017-09-26 09:55 | HHI.PR ---
Subjective Remarks Follow-up on unsafe discharge due to cognition. Seen and examined, walking halls with sitter. Expressing concern for family and cat, "needing to go home and check on them". Continued confusion. Attempted to reorient and redirect. Denies any current pain. Ambulating well. Eating well. Patient states beast lesion "feels better" and denies any pain or drainage. Continue to monitor. Objective Vitals Vital Signs Date Time Temp Pulse Resp B/P (MAP) Pulse Ox O2 Delivery O2 Flow Rate FiO2 09/26/17 08:15 97.3 68 17 140/77 (98) 95 09/25/17 20:04 98.7 59 14 114/76 (89) 93 I/O 09/25/17 09/25/17 09/25/17 09/26/17 09/26/17 09/26/17 07:00 15:00 23:00 07:00 15:00 23:00 Intake Total 240 ml 720 ml Balance 240 ml 720 ml Intake Oral 240 ml 720 ml # Voids 3 4 2 3 # Bowel Movements 1 Result Diagram: 09/24/17 1552 09/24/17 0935 Imaging Last Impressions Breast Ultrasound 09/23/17 0000 Signed Impressions: Service Date/Time: September 09:57 - CONCLUSION: Very superficially located complex collection which involves the skin and subcutaneous tissues at 12:00 2 cm from the right nipple which measures 2.4 x 1.7 x 1.8 cm. This may represent a small breast abscess. Clinical correlation is recommended. Culture of the contents of this area would be helpful for further treatment. Angel Toure MD Chest X-Ray 09/03/17 0000 Signed Impressions: Service Date/Time: Sunday, September 03, 2017 17:02 - CONCLUSION: 1. Mild edema pattern. Subsegmental basilar airspace disease most characteristic of atelectasis.. Fadi Carolina MD Cervical Spine CT 09/02/17 0000 Signed Impressions: Service Date/Time: August 12:56 - CONCLUSION: Postsurgical changes from anterior cervical plate at C6-7. No evidence of compression deformity or spondylolisthesis. Arun Regan MD Pelvis X-Ray 06/30/17 0000 Signed Impressions: Service Date/Time: Friday, June 30, 2017 12:17 - CONCLUSION: No significant change has occurred. Carlos Capps MD Objective Remarks GENERAL: Well-nourished, well-developed female lying in bed in [facility]. SKIN: Warm and dry. No rash. Right breast lesion noted, no drainage noted, open to air. HEENT: Normocephalic. Atraumatic. Pupils equal and round. No scleral icterus. No injection or drainage. No nasal bleeding or discharge. Mucous membranes pink and moist. NECK: Supple. Trachea midline. CARDIOVASCULAR: Regular rate and rhythm. S1, S2 noted. No murmur appreciated. RESPIRATORY: No accessory muscle use. Clear to auscultation. Breath sounds equal bilaterally. GASTROINTESTINAL: Abdomen soft, non-tender, nondistended. Normoactive bowel sounds x4. No guarding noted. MUSCULOSKELETAL: No obvious deformities. Extremities without clubbing, cyanosis , or edema. NEUROLOGICAL: Awake and alert. No obvious cranial nerve deficits. Motor grossly within normal limits. 5/5 muscle strength in bilateral upper and lower extremities. Normal speech. PSYCHIATRIC: Appropriate mood and affect. A/P Problem List: (1) Alcohol dependence in controlled environment ICD Code: F10.20 - Alcohol dependence, uncomplicated Status: Chronic (2) Facial injury ICD Code: S09.93XA - Unspecified injury of face, initial encounter Status: Acute (3) Fall ICD Code: W19.XXXA - Unspecified fall, initial encounter Status: Acute (4) Hypertension ICD Code: I10 - Essential (primary) hypertension Status: Acute (5) Pelvic fracture ICD Code: S32.9XXA - Fracture of unspecified parts of lumbosacral spine and pelvis, initial encounter for closed fracture Status: Acute (6) C1-C2 subluxation ICD Code: S13.120A - Subluxation of C1/C2 cervical vertebrae, initial encounter Status: Acute (7) C6 cervical fracture ICD Code: S12.500A - Unspecified displaced fracture of sixth cervical vertebra , initial encounter for closed fracture Status: Acute (8) Traumatic brain injury ICD Code: S06.9X9A - Unspecified intracranial injury with loss of consciousness of unspecified duration, initial encounter Status: Acute (9) Nasal fracture ICD Code: S02.2XXA - Fracture of nasal bones, initial encounter for closed fracture Status: Acute (10) Mild neurocognitive disorder ICD Code: G31.84 - Mild cognitive impairment, so stated Status: Acute (11) Intracranial bleed ICD Code: I62.9 - Nontraumatic intracranial hemorrhage, unspecified Status: Acute Assessment and Plan Inability to care for self, unsafe discharge due to cognition Initially it was indicated patient cannot walk, patient is walking at this time, PT and OT recommending supervision at home for safety. Speech therapy following the patient intermittently for cognitive evaluations. MOCA score 24/30, she needs to have supervision. 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 Mini mental state 28/30, recommended avoid antipsychotics for benzodiazepine. Recommending Depakote or carbamazepine Neuropsychiatry evaluated the patient recommended patient may improve with treatment, however indicates avoid benzodiazepines and antipsychotics. Continue Prozac 40 mg daily Depakene 500 mg twice daily Seroquel 50 mg every 8 hours *Psychiatry has seen patient and indicated that the patient lacks capacity for signing AMA or to participate in discharge plan. Recommendations for ethics committee to the hospital and discuss patient care and plan. Case management following and requested for ethics committee review. No update from regarding status of ethics committee. Low blood pressure with mild hypoxia, resolved. BP now stable and controlled. Monitor BP trends. Denies any dyspnea. Status post saline bolus 500 cc. IVF dc'd. Chest x-ray was performed and reviewed that indicated mild edema with atelectasis Continue incentive spirometry. Multiple traumatic injuries Patient laceration, subdural hemorrhage, ventricular hemorrhage, nasal fracture, C6 fracture, C1-C2 subluxation, C4 transverse process fracture, right rib fracture, L1 transverse process fracture, right pubic rami fracture Continue c-collar this time, however patient does not wear. Specialist no longer following patient, patient will require outpatient follow-up if discharge. Hypertension: Stable at this time. Continue Amlodipine 2.5 mg daily. Continue to monitor trends. Right nipple abscess - No drainage at this time. Right breast ultrasound ordered and reviewed showing very superficially located complex collection which involves the skin and subcutaneous tissues measuring 2.4x1.7x1.8cm, may represent a small breast abscess. Wound culture ordered and normal growth noted. Consider consult to general surgery if worsens. Continue close monitoring. - Patient denies any recent mammogram. Patient would likely benefit from outpatient mammography and workup, however the patient did not have a tentative discharge planning. Could possibly do inpatient workup will need to check with the hospital see if they do inpatient mammograms. CM assisting. DVT prevention: SCDs. Ambulation. Discharge Planning Patient is medically stable for discharge, however due to underlying psychiatric /cognition patient is unsafe discharge until arrangements made by case management Problem Qualifiers (1) Hypertension: Qualified Codes: I10 - Essential (primary) hypertension Alyssa Means Sep 26, 2017 09:55
[2017-09-26] MEDS ORDERED: OLANZapine IM 10 MG VIAL IM PRN (17:45)
[2017-09-26 19:00] VITALS: BP 121/71; PULSE 58; RESP 16; TEMP 97.9; O2SAT 95
[2017-09-26] MEDS: ACETAMINOPHEN 325 MG TAB PO PRN (21:53)
[2017-09-27] MEDS: QUEtiapine FUMARATE 25 MG TAB PO SCH ×3 (05:46→21:00)
[2017-09-27 08:00] VITALS: BP 141/86; PULSE 62; RESP 18; TEMP 97.1; O2SAT 92
[2017-09-27] MEDS: amLODIPine BESYLATE 5 MG TAB PO SCH (09:44)
[2017-09-27] MEDS: VALPROIC ACID 250 MG CAP PO SCH ×2 (09:44→21:00)
[2017-09-27] MEDS: FLUoxetine HCL 20 MG CAP PO SCH (09:44)
--- NOTE | 2017-09-27 11:25 | HHI.PR ---
Subjective Remarks Follow-up on unsafe discharge due to cognition. Seen and examined, lying in bed comfortably. Patient states she slept well. Eating well. Ambulating well. Still confused to situation and place, sitter at bedside. Afebrile. VSS. Ayanna any pain. Objective Vitals Vital Signs Date Time Temp Pulse Resp B/P (MAP) Pulse Ox O2 Delivery O2 Flow Rate FiO2 09/27/17 08:00 97.1 62 18 141/86 (104) 92 09/26/17 19:00 97.9 58 16 121/71 (88) 95 I/O 09/26/17 09/26/17 09/26/17 09/27/17 09/27/17 09/27/17 07:00 15:00 23:00 07:00 15:00 23:00 Intake Total 340 ml 480 ml Balance 340 ml 480 ml Intake Oral 340 ml 480 ml # Voids 3 2 4 # Bowel Movements 0 1 Result Diagram: 09/24/17 1552 09/24/17 0935 Imaging Last Impressions Breast Ultrasound 09/23/17 0000 Signed Impressions: Service Date/Time: September 09:57 - CONCLUSION: Very superficially located complex collection which involves the skin and subcutaneous tissues at 12:00 2 cm from the right nipple which measures 2.4 x 1.7 x 1.8 cm. This may represent a small breast abscess. Clinical correlation is recommended. Culture of the contents of this area would be helpful for further treatment. Angel Toure MD Chest X-Ray 09/03/17 0000 Signed Impressions: Service Date/Time: Sunday, September 03, 2017 17:02 - CONCLUSION: 1. Mild edema pattern. Subsegmental basilar airspace disease most characteristic of atelectasis.. Fadi Carolina MD Cervical Spine CT 09/02/17 0000 Signed Impressions: Service Date/Time: August 12:56 - CONCLUSION: Postsurgical changes from anterior cervical plate at C6-7. No evidence of compression deformity or spondylolisthesis. Arun Regan MD Pelvis X-Ray 06/30/17 0000 Signed Impressions: Service Date/Time: Friday, June 30, 2017 12:17 - CONCLUSION: No significant change has occurred. Carlos Capps MD Objective Remarks GENERAL: Well-nourished, well-developed female lying in bed in [facility]. SKIN: Warm and dry. No rash. Right breast lesion noted, some drainage, bandaid in place. no erythema appears to be healing. No pain to site. HEENT: Normocephalic. Atraumatic. Pupils equal and round. No scleral icterus. No injection or drainage. No nasal bleeding or discharge. Mucous membranes pink and moist. NECK: Supple. Trachea midline. CARDIOVASCULAR: Regular rate and rhythm. S1, S2 noted. No murmur appreciated. RESPIRATORY: No accessory muscle use. Clear to auscultation. Breath sounds equal bilaterally. GASTROINTESTINAL: Abdomen soft, non-tender, nondistended. Normoactive bowel sounds x4. No guarding noted. MUSCULOSKELETAL: No obvious deformities. Extremities without clubbing, cyanosis , or edema. NEUROLOGICAL: Awake and alert. No obvious cranial nerve deficits. Motor grossly within normal limits. 5/5 muscle strength in bilateral upper and lower extremities. Normal speech. PSYCHIATRIC: Appropriate mood and affect. A/P Problem List: (1) Alcohol dependence in controlled environment ICD Code: F10.20 - Alcohol dependence, uncomplicated Status: Chronic (2) Facial injury ICD Code: S09.93XA - Unspecified injury of face, initial encounter Status: Acute (3) Fall ICD Code: W19.XXXA - Unspecified fall, initial encounter Status: Acute (4) Hypertension ICD Code: I10 - Essential (primary) hypertension Status: Acute (5) Pelvic fracture ICD Code: S32.9XXA - Fracture of unspecified parts of lumbosacral spine and pelvis, initial encounter for closed fracture Status: Acute (6) C1-C2 subluxation ICD Code: S13.120A - Subluxation of C1/C2 cervical vertebrae, initial encounter Status: Acute (7) C6 cervical fracture ICD Code: S12.500A - Unspecified displaced fracture of sixth cervical vertebra , initial encounter for closed fracture Status: Acute (8) Traumatic brain injury ICD Code: S06.9X9A - Unspecified intracranial injury with loss of consciousness of unspecified duration, initial encounter Status: Acute (9) Nasal fracture ICD Code: S02.2XXA - Fracture of nasal bones, initial encounter for closed fracture Status: Acute (10) Mild neurocognitive disorder ICD Code: G31.84 - Mild cognitive impairment, so stated Status: Acute (11) Intracranial bleed ICD Code: I62.9 - Nontraumatic intracranial hemorrhage, unspecified Status: Acute Assessment and Plan Inability to care for self, unsafe discharge due to cognition Initially it was indicated patient cannot walk, patient is walking at this time, PT and OT recommending supervision at home for safety. Speech therapy following the patient intermittently for cognitive evaluations. MOCA score 24/30, she needs to have supervision. 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 Mini mental state 28/30, recommended avoid antipsychotics for benzodiazepine. Recommending Depakote or carbamazepine Neuropsychiatry evaluated the patient recommended patient may improve with treatment, however indicates avoid benzodiazepines and antipsychotics. Continue Prozac 40 mg daily Depakene 500 mg twice daily Seroquel 50 mg every 8 hours *Psychiatry has seen patient and indicated that the patient lacks capacity for signing AMA or to participate in discharge plan. Recommendations for ethics committee to the hospital and discuss patient care and plan. Case management following and requested for ethics committee review. No update from CM regarding status of ethics committee. Low blood pressure with mild hypoxia, resolved. BP now stable and controlled. Monitor BP trends. Denies any dyspnea. Status post saline bolus 500 cc. IVF dc'd. Chest x-ray was performed and reviewed that indicated mild edema with atelectasis Continue incentive spirometry. Multiple traumatic injuries Patient laceration, subdural hemorrhage, ventricular hemorrhage, nasal fracture, C6 fracture, C1-C2 subluxation, C4 transverse process fracture, right rib fracture, L1 transverse process fracture, right pubic rami fracture Continue c-collar this time, however patient does not wear. Specialist no longer following patient, patient will require outpatient follow-up if discharge. Hypertension: Stable at this time. Continue Amlodipine 2.5 mg daily. Continue to monitor trends. Right nipple abscess - Right breast ultrasound reviewed showing very superficially located complex collection which involves the skin and subcutaneous tissues measuring 2.4x1.7x1.8cm, may represent a small breast abscess. Wound culture ordered and normal growth noted. Consider consult to general surgery if worsens. Continue close monitoring. - Patient denies any recent mammogram. Patient would likely benefit from outpatient mammography and workup, however the patient did not have a tentative discharge planning. Could possibly do inpatient workup will need to check with the hospital see if they do inpatient mammograms. CM assisting. DVT prevention: SCDs. Ambulation. Discharge Planning Patient is medically stable for discharge, however due to underlying psychiatric /cognition patient is unsafe discharge until arrangements made by case management Problem Qualifiers (1) Hypertension: Qualified Codes: I10 - Essential (primary) hypertension Alyssa Means Sep 27, 2017 11:25
[2017-09-27 20:00] VITALS: BP 130/67; PULSE 68; RESP 16; TEMP 98.6; O2SAT 93
[2017-09-28] MEDS: QUEtiapine FUMARATE 25 MG TAB PO SCH ×3 (05:44→20:53)
[2017-09-28] MEDS: VALPROIC ACID 250 MG CAP PO SCH ×2 (08:15→20:54)
[2017-09-28] MEDS: FLUoxetine HCL 20 MG CAP PO SCH (08:15)
[2017-09-28] MEDS: amLODIPine BESYLATE 5 MG TAB PO SCH (08:15)
[2017-09-28 08:23] VITALS: BP 146/73; PULSE 70; RESP 20; TEMP 96.8; O2SAT 92
--- NOTE | 2017-09-28 10:31 | HHI.PR ---
Subjective Remarks Patient seen and examined today for follow-up on unsafe discharge due to cognition. Patient denies any new complaints. No change in clinical status. Patient still ask when initially going to be discharged Objective Vitals Vital Signs Date Time Temp Pulse Resp B/P (MAP) Pulse Ox O2 Delivery O2 Flow Rate FiO2 09/28/17 08:23 96.8 70 20 146/73 (97) 92 09/27/17 20:00 98.6 68 16 130/67 (88) 93 I/O 09/27/17 09/27/17 09/27/17 09/28/17 09/28/17 09/28/17 07:00 15:00 23:00 07:00 15:00 23:00 Intake Total 480 ml 825 ml 100 ml 480 ml Balance 480 ml 825 ml 100 ml 480 ml Intake Oral 480 ml 825 ml 100 ml 480 ml # Voids 4 3 2 # Bowel Movements 1 0 Result Diagram: 09/24/17 1552 09/24/17 0935 Objective Remarks GENERAL: Well-developed, well-nourished, in no acute distress. alert and orientated waxes and wanes daily HEENT: Head is normocephalic without any lesions or masses noted. Facial features are symmetric. Eyes: Extraocular muscles are intact. Conjunctivae were clear. NECK: C-collar in on table at bedside CARDIAC: Regular rhythm, regular rate. S1/S2 are heard. No murmurs gallops or rubs. LUNGS: Clear to auscultation bilaterally. No wheeze, rhonchi or rales. No use of accessory muscles on inspiration or expiration. ABDOMEN: Soft, nontender. Nondistended. Bowel sounds heard in all 4 quadrants. No organomegaly or masses. Negative rebound, negative guarding EXTREMITIES: No edema, pulses are equal bilaterally. No cyanosis or clubbing NEUROLOGY: Mood and affect appear appropriate. Cranial nerves II through XII grossly intact moving all extremities, speech is clear Urinary Catheter: No Vascular Central Line Catheter: No A/P Assessment and Plan Inability to care for self, unsafe discharge due to cognition Initially he was indicated patient cannot walk, patient is walking at this time, PT and OT recommending supervision at home for safety Speech therapy following the patient intermittently for cognitive evaluations. 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 MIni mental state 28/30, recommended avoid antipsychotics for benzodiazepine. Recommending Depakote or carbamazepine Patient is medically stable for discharge, however due to underlying psychiatric/cognition patient is unsafe discharge until arrangements made by case management Case management for discharge planning Neuropsychiatry evaluated the patient recommended patient may improve with treatment, however indicates avoid benzodiazepines and antipsychotics Continue Prozac 40 mg daily Depakene 500 mg twice daily Increased to Seroquel 50 mg every 8 hours *Discussed with psychiatry again about patient's cognition issues. He indicated that the patient lacks capacity for signing AMA or to participate in discharge plan. He is recommending that he would invite the ethics committee to the hospital to have a discussion about patient care *Consulted case management for ethics committee review, awaiting response Multiple traumatic injuries, Patient laceration, subdural hemorrhage, ventricular hemorrhage, nasal fracture, C6 fracture, C1-C2 subluxation, C4 transverse process fracture, right rib fracture, L1 transverse process fracture, right pubic rami fracture Continue c-collar this time, however patient does not wear Specialist no longer following patient, patient will require outpatient follow-up if discharge Right breast abscess Physical exam patient does have a erythematous area with drainage Ultrasound does show complex loculated collection measuring 2.4 x 1.7 x 1.8 cm. Representing breast abscess Start Bactrim by mouth Hypertension, Amlodipine 2.5 mg daily DVT prevention Patient ambulating Sequential compression devices while in bed Discharge Planning Case management for discharge planning Conrado Mariee Sep 28, 2017 10:30
[2017-09-28] MEDS: SULFAMETHOXAZOLE-TRIMETHOPRIM DS 800-160 MG TAB PO SCH ×2 (13:32→20:53)
[2017-09-28 20:00] VITALS: BP 136/80; PULSE 72; RESP 20; TEMP 96.4; O2SAT 95
[2017-09-29] MEDS: QUEtiapine FUMARATE 25 MG TAB PO SCH (05:56)
[2017-09-29 07:50] VITALS: BP 138/86; PULSE 64; RESP 20; TEMP 96.7; O2SAT 95
--- NOTE | 2017-09-29 08:38 | HHI.PR ---
Subjective Remarks Patient seen and examined today for follow-up on unsafe discharge due to cognition. Patient denies any new complaints. No change in clinical status. Awaiting case management for discharge planning. Objective Vitals Vital Signs Date Time Temp Pulse Resp B/P (MAP) Pulse Ox O2 Delivery O2 Flow Rate FiO2 09/28/17 20:00 96.4 72 20 136/80 (98) 95 I/O 09/28/17 09/28/17 09/28/17 09/29/17 09/29/17 09/29/17 06:59 14:59 22:59 06:59 14:59 22:59 Intake Total 480 ml 1260 ml 100 ml 240 ml Balance 480 ml 1260 ml 100 ml 240 ml Intake Oral 480 ml 1260 ml 100 ml 240 ml # Voids 2 4 2 # Bowel Movements 0 Objective Remarks GENERAL: Well-developed, well-nourished, in no acute distress. alert and orientated waxes and wanes daily HEENT: Head is normocephalic without any lesions or masses noted. Facial features are symmetric. Eyes: Extraocular muscles are intact. Conjunctivae were clear. NECK: C-collar in on table at bedside CARDIAC: Regular rhythm, regular rate. S1/S2 are heard. No murmurs gallops or rubs. LUNGS: Clear to auscultation bilaterally. No wheeze, rhonchi or rales. No use of accessory muscles on inspiration or expiration. ABDOMEN: Soft, nontender. Nondistended. Bowel sounds heard in all 4 quadrants. No organomegaly or masses. Negative rebound, negative guarding EXTREMITIES: No edema, pulses are equal bilaterally. No cyanosis or clubbing NEUROLOGY: Mood and affect appear appropriate. Cranial nerves II through XII grossly intact moving all extremities, speech is clear Urinary Catheter: No Vascular Central Line Catheter: No A/P Assessment and Plan Inability to care for self, unsafe discharge due to cognition Initially he was indicated patient cannot walk, patient is walking at this time, PT and OT recommending supervision at home for safety Speech therapy following the patient intermittently for cognitive evaluations. 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 MIni mental state 28/30, recommended avoid antipsychotics for benzodiazepine. Recommending Depakote or carbamazepine Patient is medically stable for discharge, however due to underlying psychiatric/cognition patient is unsafe discharge until arrangements made by case management Case management for discharge planning Neuropsychiatry evaluated the patient recommended patient may improve with treatment, however indicates avoid benzodiazepines and antipsychotics Continue Prozac 40 mg daily Depakene 500 mg twice daily Increased to Seroquel 50 mg every 8 hours *Discussed with psychiatry again about patient's cognition issues. He indicated that the patient lacks capacity for signing AMA or to participate in discharge plan. He is recommending that he would invite the ethics committee to the hospital to have a discussion about patient care *Consulted case management for ethics committee review, awaiting response Multiple traumatic injuries, Patient laceration, subdural hemorrhage, ventricular hemorrhage, nasal fracture, C6 fracture, C1-C2 subluxation, C4 transverse process fracture, right rib fracture, L1 transverse process fracture, right pubic rami fracture Continue c-collar this time, however patient does not wear Specialist no longer following patient, patient will require outpatient follow-up if discharge Right breast abscess Physical exam patient does have a erythematous area with drainage Ultrasound does show complex loculated collection measuring 2.4 x 1.7 x 1.8 cm. Representing breast abscess Continue Bactrim by mouth for 10 days Hypertension, Amlodipine 2.5 mg daily DVT prevention Patient ambulating Sequential compression devices while in bed Records were reviewed. No change in current treatment plan. Awaiting case management for discharge planning Discharge Planning Case management for discharge planning Conrado Mariee Sep 29, 2017 08:38
[2017-09-29] MEDS: FLUoxetine HCL 20 MG CAP PO SCH (08:53)
[2017-09-29] MEDS: SULFAMETHOXAZOLE-TRIMETHOPRIM DS 800-160 MG TAB PO SCH ×2 (08:53→21:43)
[2017-09-29] MEDS: amLODIPine BESYLATE 5 MG TAB PO SCH (08:53)
[2017-09-29] MEDS: VALPROIC ACID 250 MG CAP PO SCH ×2 (08:53→21:43)
--- NOTE | 2017-09-29 10:40 | HHI.PYPN ---
Subjective Remarks Patient was seen for psychiatric reevaluation today, she was found sleeping, but easily arousable. She was calm and cooperative. She recognized me from previous encounters. She reports good mood. Denies depressive symptoms. Patient is fully oriented 3. She denies suicidal and homicidal ideation. She denies visual and auditory hallucinations. Patient says that she is happy that is almost thanksgivings and she "going to do a lot of cooking here". Even though the patient is logical and coherent, patient tends to confabulate very often. As per nurse in charge, the patient has been episodically agitated and trying to leave the hospital, difficult to redirect verbally, especially in the evening time. Review of Systems Except as stated in HPI: all other systems reviewed are Neg Mental Status Examination Appearance: Appropriate Consciousness: Alert Orientation: x4, Person, Place Motor Activity: Normal gait Speech: Unremarkable Language: Adequate Fund of Knowledge: Adequate Attention and Concentration: Adequate Memory: Unremarkable Mood: Appropriate Affect: Appropriate Thought Process & Associations: Intact Thought Content: Appropriate Hallucination Type: None Delusion Type: None Suicidal Ideation: No Suicidal Plan: No Suicidal Intention: No Homicidal Ideation: No Homicidal Plan: No Homicidal Intention: No Insight: Adequate Judgment: Adequate Results Labs Date/Time Source Procedure Growth Status 09/02/17 10:35 Urine Clean Catch Urine Culture - Final Escherichia Coli Complete 09/24/17 11:18 Wound Breast Gram Stain - Final Complete 09/24/17 11:18 Wound Breast Wound Culture - Final RARE GROWTH NORMAL SKIN ALEE... 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 Brief supportive psychotherapy provided. Labs reviewed. Will order Depakote levels. (2) Adjustment disorder with depressed mood ICD Codes: F43.21 - Adjustment disorder with depressed mood Assessment & Plan Estimated LOS: days Justification for Cont. Inpt. Patient does not meet criteria for involuntary psychiatric admission. Nilton Nelson MD Sep 29, 2017 10:40
[2017-09-29 20:00] VITALS: BP 135/97; PULSE 69; RESP 20; TEMP 96.6; O2SAT 97
[2017-09-29] MEDS: QUEtiapine FUMARATE 100 MG TAB PO SCH (21:43)
[2017-09-30 08:00] VITALS: BP 134/73; PULSE 68; RESP 18; TEMP 97.4; O2SAT 96
[2017-09-30] MEDS: FLUoxetine HCL 20 MG CAP PO SCH (08:57)
[2017-09-30] MEDS: SULFAMETHOXAZOLE-TRIMETHOPRIM DS 800-160 MG TAB PO SCH ×2 (08:57→21:37)
[2017-09-30] MEDS: amLODIPine BESYLATE 5 MG TAB PO SCH (08:57)
[2017-09-30] MEDS: VALPROIC ACID 250 MG CAP PO SCH ×2 (08:57→21:37)
[2017-09-30] MEDS: QUEtiapine FUMARATE 100 MG TAB PO SCH ×2 (08:57→21:37)
--- NOTE | 2017-09-30 10:46 | HHI.PR ---
Subjective Remarks Patient seen and examined today for follow-up on unsafe discharge due to cognition. Patient denies any new complaints. No change in clinical status. Vital signs are stable. Remains afebrile Objective Vitals Vital Signs Date Time Temp Pulse Resp B/P (MAP) Pulse Ox O2 Delivery O2 Flow Rate FiO2 09/30/17 08:00 97.4 68 18 134/73 (93) 96 09/29/17 20:00 96.6 69 20 135/97 (110) 97 I/O 09/29/17 09/29/17 09/29/17 09/30/17 09/30/17 09/30/17 07:00 15:00 23:00 07:00 15:00 23:00 Intake Total 240 ml 720 ml 240 ml Balance 240 ml 720 ml 240 ml Intake Oral 240 ml 720 ml 240 ml # Voids 2 6 3 # Bowel Movements 0 0 Objective Remarks GENERAL: Well-developed, well-nourished, in no acute distress. alert and orientated waxes and wanes daily HEENT: Head is normocephalic without any lesions or masses noted. Facial features are symmetric. Eyes: Extraocular muscles are intact. Conjunctivae were clear. NECK: C-collar in on table at bedside CARDIAC: Regular rhythm, regular rate. S1/S2 are heard. No murmurs gallops or rubs. LUNGS: Clear to auscultation bilaterally. No wheeze, rhonchi or rales. No use of accessory muscles on inspiration or expiration. ABDOMEN: Soft, nontender. Nondistended. Bowel sounds heard in all 4 quadrants. No organomegaly or masses. Negative rebound, negative guarding EXTREMITIES: No edema, pulses are equal bilaterally. No cyanosis or clubbing NEUROLOGY: Mood and affect appear appropriate. Cranial nerves II through XII grossly intact moving all extremities, speech is clear Urinary Catheter: No Vascular Central Line Catheter: No A/P Assessment and Plan Inability to care for self, unsafe discharge due to cognition Initially he was indicated patient cannot walk, patient is walking at this time, PT and OT recommending supervision at home for safety Speech therapy following the patient intermittently for cognitive evaluations. 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 MIni mental state 28/30, recommended avoid antipsychotics for benzodiazepine. Recommending Depakote or carbamazepine Patient is medically stable for discharge, however due to underlying psychiatric/cognition patient is unsafe discharge until arrangements made by case management Case management for discharge planning Neuropsychiatry evaluated the patient recommended patient may improve with treatment, however indicates avoid benzodiazepines and antipsychotics Continue Prozac 40 mg daily Depakene 500 mg twice daily Increased to Seroquel 50 mg every 8 hours *Discussed with psychiatry again about patient's cognition issues. He indicated that the patient lacks capacity for signing AMA or to participate in discharge plan. He is recommending that he would invite the ethics committee to the hospital to have a discussion about patient care *Consulted case management for ethics committee review, awaiting response Multiple traumatic injuries, Patient laceration, subdural hemorrhage, ventricular hemorrhage, nasal fracture, C6 fracture, C1-C2 subluxation, C4 transverse process fracture, right rib fracture, L1 transverse process fracture, right pubic rami fracture Continue c-collar this time, however patient does not wear Specialist no longer following patient, patient will require outpatient follow-up if discharge Right breast abscess Physical exam patient does have a erythematous area with drainage Ultrasound does show complex loculated collection measuring 2.4 x 1.7 x 1.8 cm. Representing breast abscess Continue Bactrim by mouth for 10 days Hypertension, Amlodipine 2.5 mg daily DVT prevention Patient ambulating Sequential compression devices while in bed Records were reviewed. Awaiting case management for discharge planning, No change in current treatment plan. Discharge Planning Case management for discharge planning Conrado Mariee Sep 30, 2017 10:46
[2017-09-30 20:00] VITALS: BP 156/87; PULSE 65; RESP 18; TEMP 96.1; O2SAT 95
[2017-10-01 08:00] VITALS: BP 167/90; PULSE 61; TEMP 96.2; O2SAT 94
--- NOTE | 2017-10-01 08:15 | HHI.PR ---
Subjective Remarks Patient seen and examined today for follow-up on unsafe discharge due to cognition. Patient resting comfortably. No indication of any acute events overnight. No change in clinical status. Objective Vitals Vital Signs Date Time Temp Pulse Resp B/P (MAP) Pulse Ox O2 Delivery O2 Flow Rate FiO2 09/30/17 20:00 96.1 65 18 156/87 (110) 95 I/O 09/30/17 09/30/17 09/30/17 10/01/17 10/01/17 10/01/17 07:00 15:00 23:00 07:00 15:00 23:00 Intake Total 240 ml 750 ml 380 ml Balance 240 ml 750 ml 380 ml Intake Oral 240 ml 750 ml 380 ml # Voids 3 3 2 # Bowel Movements 0 0 Objective Remarks GENERAL: Well-developed, well-nourished, in no acute distress. alert and orientated waxes and wanes daily HEENT: Head is normocephalic without any lesions or masses noted. Facial features are symmetric. Eyes: Extraocular muscles are intact. Conjunctivae were clear. NECK: C-collar in on table at bedside CARDIAC: Regular rhythm, regular rate. S1/S2 are heard. No murmurs gallops or rubs. LUNGS: Clear to auscultation bilaterally. No wheeze, rhonchi or rales. No use of accessory muscles on inspiration or expiration. ABDOMEN: Soft, nontender. Nondistended. Bowel sounds heard in all 4 quadrants. No organomegaly or masses. Negative rebound, negative guarding EXTREMITIES: No edema, pulses are equal bilaterally. No cyanosis or clubbing NEUROLOGY: Mood and affect appear appropriate. Cranial nerves II through XII grossly intact moving all extremities, speech is clear Urinary Catheter: No Vascular Central Line Catheter: No A/P Assessment and Plan Inability to care for self, unsafe discharge due to cognition Initially he was indicated patient cannot walk, patient is walking at this time, PT and OT recommending supervision at home for safety Speech therapy following the patient intermittently for cognitive evaluations. 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 MIni mental state 28/30, recommended avoid antipsychotics for benzodiazepine. Recommending Depakote or carbamazepine Patient is medically stable for discharge, however due to underlying psychiatric/cognition patient is unsafe discharge until arrangements made by case management Case management for discharge planning Neuropsychiatry evaluated the patient recommended patient may improve with treatment, however indicates avoid benzodiazepines and antipsychotics Continue Prozac 40 mg daily Depakene 500 mg twice daily Increased to Seroquel 50 mg every 8 hours *Discussed with psychiatry again about patient's cognition issues. He indicated that the patient lacks capacity for signing AMA or to participate in discharge plan. He is recommending that he would invite the ethics committee to the hospital to have a discussion about patient care *Consulted case management for ethics committee review, awaiting response Multiple traumatic injuries, Patient laceration, subdural hemorrhage, ventricular hemorrhage, nasal fracture, C6 fracture, C1-C2 subluxation, C4 transverse process fracture, right rib fracture, L1 transverse process fracture, right pubic rami fracture Continue c-collar this time, however patient does not wear Specialist no longer following patient, patient will require outpatient follow-up if discharge Right breast abscess Physical exam patient does have a erythematous area with drainage Ultrasound does show complex loculated collection measuring 2.4 x 1.7 x 1.8 cm. Representing breast abscess Continue Bactrim by mouth for 10 days Hypertension, Amlodipine 5 mg daily DVT prevention Patient ambulating Sequential compression devices while in bed Records were reviewed. No change in current treatment plan. Awaiting case management for discharge planning, Discharge Planning Case management for discharge planning Conrado Mariee Oct 01, 2017 08:15
[2017-10-01] MEDS: SULFAMETHOXAZOLE-TRIMETHOPRIM DS 800-160 MG TAB PO SCH ×2 (08:35→20:13)
[2017-10-01] MEDS: VALPROIC ACID 250 MG CAP PO SCH ×2 (08:35→20:13)
[2017-10-01] MEDS: FLUoxetine HCL 20 MG CAP PO SCH (08:35)
[2017-10-01] MEDS: QUEtiapine FUMARATE 100 MG TAB PO SCH ×2 (08:35→20:12)
[2017-10-01] MEDS: amLODIPine BESYLATE 5 MG TAB PO SCH (08:35)
[2017-10-01 20:27] VITALS: BP 153/95; PULSE 63; RESP 18; TEMP 97.9; O2SAT 97
[2017-10-02 08:00] VITALS: BP 118/66; PULSE 73; RESP 18; TEMP 97.3; O2SAT 96
[2017-10-02] MEDS: VALPROIC ACID 250 MG CAP PO SCH ×2 (10:21→19:43)
[2017-10-02] MEDS: QUEtiapine FUMARATE 100 MG TAB PO SCH ×2 (10:21→19:43)
[2017-10-02] MEDS: FLUoxetine HCL 20 MG CAP PO SCH (10:21)
[2017-10-02] MEDS: SULFAMETHOXAZOLE-TRIMETHOPRIM DS 800-160 MG TAB PO SCH ×2 (10:22→19:42)
[2017-10-02] MEDS: ACETAMINOPHEN 325 MG TAB PO PRN (10:22)
[2017-10-02] MEDS: amLODIPine BESYLATE 5 MG TAB PO SCH (10:22)
--- NOTE | 2017-10-02 10:24 | HHI.PR ---
Subjective Remarks Patient seen and examined today for follow-up on unsafe discharge due to cognition. Patient denies any new complaints. No change in clinical status. Vital signs are stable, afebrile Objective Vitals Vital Signs Date Time Temp Pulse Resp B/P (MAP) Pulse Ox O2 Delivery O2 Flow Rate FiO2 10/02/17 08:00 97.3 73 18 118/66 (83) 96 10/01/17 20:27 97.9 63 18 153/95 (114) 97 I/O 10/01/17 10/01/17 10/01/17 10/02/17 10/02/17 10/02/17 07:00 15:00 23:00 07:00 15:00 23:00 Intake Total 380 ml 840 ml Balance 380 ml 840 ml Intake Oral 380 ml 840 ml # Voids 2 4 4 # Bowel Movements 0 0 Objective Remarks GENERAL: Well-developed, well-nourished, in no acute distress. alert and orientated waxes and wanes daily HEENT: Head is normocephalic without any lesions or masses noted. Facial features are symmetric. Eyes: Extraocular muscles are intact. Conjunctivae were clear. NECK: C-collar in on table at bedside CARDIAC: Regular rhythm, regular rate. S1/S2 are heard. No murmurs gallops or rubs. LUNGS: Clear to auscultation bilaterally. No wheeze, rhonchi or rales. No use of accessory muscles on inspiration or expiration. ABDOMEN: Soft, nontender. Nondistended. Bowel sounds heard in all 4 quadrants. No organomegaly or masses. Negative rebound, negative guarding EXTREMITIES: No edema, pulses are equal bilaterally. No cyanosis or clubbing NEUROLOGY: Mood and affect appear appropriate. Cranial nerves II through XII grossly intact moving all extremities, speech is clear Urinary Catheter: No Vascular Central Line Catheter: No A/P Assessment and Plan Inability to care for self, unsafe discharge due to cognition Initially he was indicated patient cannot walk, patient is walking at this time, PT and OT recommending supervision at home for safety Speech therapy following the patient intermittently for cognitive evaluations. 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 MIni mental state 28/30, recommended avoid antipsychotics for benzodiazepine. Recommending Depakote or carbamazepine Patient is medically stable for discharge, however due to underlying psychiatric/cognition patient is unsafe discharge until arrangements made by case management Case management for discharge planning Neuropsychiatry evaluated the patient recommended patient may improve with treatment, however indicates avoid benzodiazepines and antipsychotics Continue Prozac 40 mg daily Depakene 500 mg twice daily Increased to Seroquel 50 mg every 8 hours *Discussed with psychiatry again about patient's cognition issues. He indicated that the patient lacks capacity for signing AMA or to participate in discharge plan. He is recommending that he would invite the ethics committee to the hospital to have a discussion about patient care *Consulted case management for ethics committee review, awaiting response Multiple traumatic injuries, Patient laceration, subdural hemorrhage, ventricular hemorrhage, nasal fracture, C6 fracture, C1-C2 subluxation, C4 transverse process fracture, right rib fracture, L1 transverse process fracture, right pubic rami fracture Continue c-collar this time, however patient does not wear Specialist no longer following patient, patient will require outpatient follow-up if discharge Right breast abscess Physical exam patient does have a erythematous area with drainage Ultrasound does show complex loculated collection measuring 2.4 x 1.7 x 1.8 cm. Representing breast abscess Continue Bactrim by mouth for 10 days Hypertension, Amlodipine 5 mg daily DVT prevention Patient ambulating Sequential compression devices while in bed Records were reviewed. Awaiting case management for discharge planning, No change in current treatment plan. Discharge Planning Case management for discharge planning Conrado Mariee Oct 02, 2017 10:24
[2017-10-02 20:06] VITALS: BP 124/75; PULSE 64; RESP 14; TEMP 97.3; O2SAT 95
[2017-10-03 08:00] VITALS: BP 127/74; PULSE 80; RESP 16; TEMP 97.6; O2SAT 94
--- NOTE | 2017-10-03 08:10 | HHI.PR ---
Subjective Remarks Patient's exam today for follow-up on unsafe discharge due to cognition. Patient denies any new complaints. She is sitting up eating breakfast. Vital signs are stable. Afebrile Objective Vitals Vital Signs Date Time Temp Pulse Resp B/P (MAP) Pulse Ox O2 Delivery O2 Flow Rate FiO2 10/02/17 20:06 97.3 64 14 124/75 (91) 95 10/02/17 11:22 20 I/O 10/02/17 10/02/17 10/02/17 10/03/17 10/03/17 10/03/17 07:00 15:00 23:00 07:00 15:00 23:00 Intake Total 850 ml Balance 850 ml Intake Oral 850 ml # Voids 4 3 1 2 Objective Remarks GENERAL: Well-developed, well-nourished, in no acute distress. alert and orientated waxes and wanes daily HEENT: Head is normocephalic without any lesions or masses noted. Facial features are symmetric. Eyes: Extraocular muscles are intact. Conjunctivae were clear. NECK: C-collar in on table at bedside CARDIAC: Regular rhythm, regular rate. S1/S2 are heard. No murmurs gallops or rubs. LUNGS: Clear to auscultation bilaterally. No wheeze, rhonchi or rales. No use of accessory muscles on inspiration or expiration. ABDOMEN: Soft, nontender. Nondistended. Bowel sounds heard in all 4 quadrants. No organomegaly or masses. Negative rebound, negative guarding EXTREMITIES: No edema, pulses are equal bilaterally. No cyanosis or clubbing NEUROLOGY: Mood and affect appear appropriate. Cranial nerves II through XII grossly intact moving all extremities, speech is clear Urinary Catheter: No Vascular Central Line Catheter: No A/P Assessment and Plan Inability to care for self, unsafe discharge due to cognition Initially he was indicated patient cannot walk, patient is walking at this time, PT and OT recommending supervision at home for safety Speech therapy following the patient intermittently for cognitive evaluations. 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 MIni mental state 28/30, recommended avoid antipsychotics for benzodiazepine. Recommending Depakote or carbamazepine Patient is medically stable for discharge, however due to underlying psychiatric/cognition patient is unsafe discharge until arrangements made by case management Case management for discharge planning Neuropsychiatry evaluated the patient recommended patient may improve with treatment, however indicates avoid benzodiazepines and antipsychotics Continue Prozac 40 mg daily Depakene 500 mg twice daily Increased to Seroquel 50 mg every 8 hours *Discussed with psychiatry again about patient's cognition issues. He indicated that the patient lacks capacity for signing AMA or to participate in discharge plan. He is recommending that he would invite the ethics committee to the hospital to have a discussion about patient care *Consulted case management for ethics committee review, awaiting response Multiple traumatic injuries, Patient laceration, subdural hemorrhage, ventricular hemorrhage, nasal fracture, C6 fracture, C1-C2 subluxation, C4 transverse process fracture, right rib fracture, L1 transverse process fracture, right pubic rami fracture Continue c-collar this time, however patient does not wear Specialist no longer following patient, patient will require outpatient follow-up if discharge Right breast abscess Physical exam patient does have a erythematous area with drainage Ultrasound does show complex loculated collection measuring 2.4 x 1.7 x 1.8 cm. Representing breast abscess Continue Bactrim by mouth for 10 days, until 10/08/17 Reevaluated after antibiotics, may need I&D Hypertension, Amlodipine 5 mg daily DVT prevention Patient ambulating Sequential compression devices while in bed Records were reviewed. No change in current treatment plan. Awaiting case management for discharge planning, Discharge Planning Case management for discharge planning Conrado Mariee Oct 03, 2017 08:10
[2017-10-03] MEDS: SULFAMETHOXAZOLE-TRIMETHOPRIM DS 800-160 MG TAB PO SCH ×2 (10:00→21:02)
[2017-10-03] MEDS: VALPROIC ACID 250 MG CAP PO SCH ×2 (10:00→21:02)
[2017-10-03] MEDS: amLODIPine BESYLATE 5 MG TAB PO SCH (10:01)
[2017-10-03] MEDS: QUEtiapine FUMARATE 100 MG TAB PO SCH ×2 (10:01→21:02)
[2017-10-03] MEDS: FLUoxetine HCL 20 MG CAP PO SCH (10:01)
[2017-10-03 21:38] VITALS: BP 128/82; PULSE 94; RESP 18; TEMP 97.3; O2SAT 97
[2017-10-03 21:40] VITALS: O2SAT 95
[2017-10-04 08:00] VITALS: BP 104/65; PULSE 64; RESP 16; TEMP 97; O2SAT 92
[2017-10-04] MEDS: SULFAMETHOXAZOLE-TRIMETHOPRIM DS 800-160 MG TAB PO SCH ×2 (08:40→20:49)
[2017-10-04] MEDS: QUEtiapine FUMARATE 100 MG TAB PO SCH ×2 (08:41→20:49)
[2017-10-04] MEDS: amLODIPine BESYLATE 5 MG TAB PO SCH (08:41)
[2017-10-04] MEDS: VALPROIC ACID 250 MG CAP PO SCH ×2 (08:41→20:49)
[2017-10-04] MEDS: FLUoxetine HCL 20 MG CAP PO SCH (08:41)
--- NOTE | 2017-10-04 09:27 | HHI.PR ---
Subjective Remarks Patient seen and examined today for follow-up on unsafe discharge due to cognition. Patient denies any new complaints. No change in clinical status. Nursing staff does not indicate any acute events overnight. Objective Vitals Vital Signs Date Time Temp Pulse Resp B/P (MAP) Pulse Ox O2 Delivery O2 Flow Rate FiO2 10/04/17 08:00 97.0 64 16 104/65 (78) 92 10/03/17 21:40 95 21 10/03/17 21:38 97.3 94 18 128/82 (97) 97 I/O 10/03/17 10/03/17 10/03/17 10/04/17 10/04/17 10/04/17 07:00 15:00 23:00 07:00 15:00 23:00 Intake Total 950 ml 480 ml 222 ml Balance 950 ml 480 ml 222 ml Intake Oral 950 ml 480 ml 222 ml # Voids 2 3 2 # Bowel Movements 0 Objective Remarks GENERAL: Well-developed, well-nourished, in no acute distress. alert and orientated waxes and wanes daily HEENT: Head is normocephalic without any lesions or masses noted. Facial features are symmetric. Eyes: Extraocular muscles are intact. Conjunctivae were clear. NECK: C-collar in on table at bedside CARDIAC: Regular rhythm, regular rate. S1/S2 are heard. No murmurs gallops or rubs. LUNGS: Clear to auscultation bilaterally. No wheeze, rhonchi or rales. No use of accessory muscles on inspiration or expiration. ABDOMEN: Soft, nontender. Nondistended. Bowel sounds heard in all 4 quadrants. No organomegaly or masses. Negative rebound, negative guarding EXTREMITIES: No edema, pulses are equal bilaterally. No cyanosis or clubbing NEUROLOGY: Mood and affect appear appropriate. Cranial nerves II through XII grossly intact moving all extremities, speech is clear Urinary Catheter: No Vascular Central Line Catheter: No A/P Assessment and Plan Inability to care for self, unsafe discharge due to cognition Initially he was indicated patient cannot walk, patient is walking at this time, PT and OT recommending supervision at home for safety Speech therapy following the patient intermittently for cognitive evaluations. 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 MIni mental state 28/30, recommended avoid antipsychotics for benzodiazepine. Recommending Depakote or carbamazepine Patient is medically stable for discharge, however due to underlying psychiatric/cognition patient is unsafe discharge until arrangements made by case management Case management for discharge planning Neuropsychiatry evaluated the patient recommended patient may improve with treatment, however indicates avoid benzodiazepines and antipsychotics Continue Prozac 40 mg daily Depakene 500 mg twice daily Increased to Seroquel 50 mg every 8 hours *Discussed with psychiatry again about patient's cognition issues. He indicated that the patient lacks capacity for signing AMA or to participate in discharge plan. He is recommending that he would invite the ethics committee to the hospital to have a discussion about patient care *Consulted case management for ethics committee review, awaiting response Multiple traumatic injuries, Patient laceration, subdural hemorrhage, ventricular hemorrhage, nasal fracture, C6 fracture, C1-C2 subluxation, C4 transverse process fracture, right rib fracture, L1 transverse process fracture, right pubic rami fracture Continue c-collar this time, however patient does not wear Specialist no longer following patient, patient will require outpatient follow-up if discharge Right breast abscess Physical exam patient does have a erythematous area with drainage Ultrasound does show complex loculated collection measuring 2.4 x 1.7 x 1.8 cm. Representing breast abscess Continue Bactrim by mouth for 10 days, until 10/08/17 Reevaluated after antibiotics, may need I&D Hypertension, Amlodipine 5 mg daily DVT prevention Patient ambulating Sequential compression devices while in bed Records were reviewed. Awaiting case management for discharge planning, No change in current treatment plan. Discharge Planning Case management for discharge planning Conrado Mariee Oct 04, 2017 09:27
[2017-10-04 20:00] VITALS: BP 130/75; PULSE 63; RESP 20; TEMP 98.2; O2SAT 95
[2017-10-05 08:00] VITALS: BP 133/82; PULSE 60; RESP 16; TEMP 97.4; O2SAT 97
[2017-10-05] MEDS: amLODIPine BESYLATE 5 MG TAB PO SCH (08:35)
[2017-10-05] MEDS: QUEtiapine FUMARATE 100 MG TAB PO SCH ×2 (08:35→20:51)
[2017-10-05] MEDS: VALPROIC ACID 250 MG CAP PO SCH ×2 (08:35→20:51)
[2017-10-05] MEDS: SULFAMETHOXAZOLE-TRIMETHOPRIM DS 800-160 MG TAB PO SCH ×2 (08:35→20:51)
[2017-10-05] MEDS: FLUoxetine HCL 20 MG CAP PO SCH (08:35)
--- NOTE | 2017-10-05 09:21 | HHI.PR ---
Subjective Remarks Follow up unsafe discharge due to cognition. Patient seen and examined, lying in bed comfortably. Pleasant. Denies any new acute complaints. Sitter at bedside. Patient has been eating well and ambulating. Denies any chest pain, abdominal pain, headache, n/v/d or dysuria. Breast abscess assessed and stable. Denies any pain or discomfort. Objective Vitals Vital Signs Date Time Temp Pulse Resp B/P (MAP) Pulse Ox O2 Delivery O2 Flow Rate FiO2 10/05/17 08:00 97.4 60 16 133/82 (99) 97 10/04/17 20:00 98.2 63 20 130/75 (93) 95 I/O 10/04/17 10/04/17 10/04/17 10/05/17 10/05/17 10/05/17 07:00 15:00 23:00 07:00 15:00 23:00 Intake Total 480 ml 222 ml 440 ml 480 ml Output Total 1 ml Balance 480 ml 222 ml 440 ml 479 ml Intake Oral 480 ml 222 ml 440 ml 480 ml Stool Total 1 ml # Voids 2 4 4 # Bowel Movements 0 2 Imaging Last Impressions Breast Ultrasound 09/23/17 0000 Signed Impressions: Service Date/Time: September 09:57 - CONCLUSION: Very superficially located complex collection which involves the skin and subcutaneous tissues at 12:00 2 cm from the right nipple which measures 2.4 x 1.7 x 1.8 cm. This may represent a small breast abscess. Clinical correlation is recommended. Culture of the contents of this area would be helpful for further treatment. Angel Toure MD Chest X-Ray 09/03/17 0000 Signed Impressions: Service Date/Time: Sunday, September 03, 2017 17:02 - CONCLUSION: 1. Mild edema pattern. Subsegmental basilar airspace disease most characteristic of atelectasis.. Fadi Carolina MD Cervical Spine CT 09/02/17 0000 Signed Impressions: Service Date/Time: August 12:56 - CONCLUSION: Postsurgical changes from anterior cervical plate at C6-7. No evidence of compression deformity or spondylolisthesis. Arun Regan MD Pelvis X-Ray 06/30/17 0000 Signed Impressions: Service Date/Time: Wednesday, June 30, 2017 12:17 - CONCLUSION: No significant change has occurred. Carlos Capps MD Objective Remarks GENERAL: Well-nourished, well-developed female lying in bed in [facility]. SKIN: Warm and dry. No rash. Right breast lesion noted, some purulent drainage, bandage changed. Some erythema. No pain to site. HEENT: Normocephalic. Atraumatic. Pupils equal and round. No scleral icterus. No injection or drainage. No nasal bleeding or discharge. Mucous membranes pink and moist. NECK: Supple. Trachea midline. CARDIOVASCULAR: Regular rate and rhythm. S1, S2 noted. No murmur appreciated. RESPIRATORY: No accessory muscle use. Clear to auscultation. Breath sounds equal bilaterally. GASTROINTESTINAL: Abdomen soft, non-tender, nondistended. Normoactive bowel sounds x4. No guarding noted. MUSCULOSKELETAL: No obvious deformities. Extremities without clubbing, cyanosis , or edema. NEUROLOGICAL: Awake and alert. No obvious cranial nerve deficits. Motor grossly within normal limits. 5/5 muscle strength in bilateral upper and lower extremities. Normal speech. PSYCHIATRIC: Appropriate mood and affect. A/P Problem List: (1) Alcohol dependence in controlled environment ICD Code: F10.20 - Alcohol dependence, uncomplicated Status: Chronic (2) Facial injury ICD Code: S09.93XA - Unspecified injury of face, initial encounter Status: Acute (3) Fall ICD Code: W19.XXXA - Unspecified fall, initial encounter Status: Acute (4) Hypertension ICD Code: I10 - Essential (primary) hypertension Status: Acute (5) Pelvic fracture ICD Code: S32.9XXA - Fracture of unspecified parts of lumbosacral spine and pelvis, initial encounter for closed fracture Status: Acute (6) C1-C2 subluxation ICD Code: S13.120A - Subluxation of C1/C2 cervical vertebrae, initial encounter Status: Acute (7) C6 cervical fracture ICD Code: S12.500A - Unspecified displaced fracture of sixth cervical vertebra , initial encounter for closed fracture Status: Acute (8) Traumatic brain injury ICD Code: S06.9X9A - Unspecified intracranial injury with loss of consciousness of unspecified duration, initial encounter Status: Acute (9) Nasal fracture ICD Code: S02.2XXA - Fracture of nasal bones, initial encounter for closed fracture Status: Acute (10) Mild neurocognitive disorder ICD Code: G31.84 - Mild cognitive impairment, so stated Status: Acute (11) Intracranial bleed ICD Code: I62.9 - Nontraumatic intracranial hemorrhage, unspecified Status: Acute Assessment and Plan Inability to care for self, unsafe discharge due to cognition Initially he was indicated patient cannot walk, patient is walking at this time, PT and OT recommending supervision at home for safety Speech therapy following the patient intermittently for cognitive evaluations. 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 MIni mental state 28/30, recommended avoid antipsychotics for benzodiazepine. Recommending Depakote or carbamazepine Patient is medically stable for discharge, however due to underlying psychiatric/cognition patient is unsafe discharge until arrangements made by case management Case management for discharge planning Neuropsychiatry evaluated the patient recommended patient may improve with treatment, however indicates avoid benzodiazepines and antipsychotics Continue Prozac 40 mg daily Depakene 500 mg twice daily Increased to Seroquel 50 mg every 8 hours *Discussed with psychiatry again about patient's cognition issues. He indicated that the patient lacks capacity for signing AMA or to participate in discharge plan. He is recommending that he would invite the ethics committee to the hospital to have a discussion about patient care. * Consulted case management for ethics committee review, awaiting response Multiple traumatic injuries Patient laceration, subdural hemorrhage, ventricular hemorrhage, nasal fracture, C6 fracture, C1-C2 subluxation, C4 transverse process fracture, right rib fracture, L1 transverse process fracture, right pubic rami fracture Continue c-collar this time, however patient does not wear Specialist no longer following patient, patient will require outpatient follow-up if discharge Right breast abscess Physical exam patient does have a erythematous area with drainage Ultrasound does show complex loculated collection measuring 2.4 x 1.7 x 1.8 cm. Representing breast abscess Continue Bactrim by mouth for 10 days, until 10/08/17 Reevaluated after antibiotics, may need I&D Hypertension, Amlodipine 5 mg daily DVT prevention Patient ambulating Sequential compression devices while in bed Records were reviewed. Awaiting case management for discharge planning, No change in current treatment plan. Discharge Planning Patient is medically stable for discharge, however due to underlying psychiatric /cognition patient is unsafe discharge until arrangements made by case management Problem Qualifiers (1) Hypertension: Qualified Codes: I10 - Essential (primary) hypertension Alyssa Means Oct 05, 2017 09:21
[2017-10-05 20:00] VITALS: BP 137/72; PULSE 102; RESP 16; TEMP 96.4; O2SAT 98
[2017-10-06 07:50] VITALS: BP 124/77; PULSE 58; RESP 20; TEMP 97; O2SAT 91
[2017-10-06] MEDS: SULFAMETHOXAZOLE-TRIMETHOPRIM DS 800-160 MG TAB PO SCH ×2 (08:25→20:14)
[2017-10-06] MEDS: amLODIPine BESYLATE 5 MG TAB PO SCH (08:25)
[2017-10-06] MEDS: FLUoxetine HCL 20 MG CAP PO SCH (08:25)
[2017-10-06] MEDS: QUEtiapine FUMARATE 100 MG TAB PO SCH ×2 (08:25→20:14)
[2017-10-06] MEDS: VALPROIC ACID 250 MG CAP PO SCH ×2 (08:25→20:14)
--- NOTE | 2017-10-06 14:02 | HHI.PR ---
Subjective Remarks Follow up unsafe discharge due to cognition. Patient seen and examined, lying in bed comfortably. Denies any pain. No change in clinical condition. Sitter at bedside. Eating well. Afebrile. VSS Objective Vitals Vital Signs Date Time Temp Pulse Resp B/P (MAP) Pulse Ox O2 Delivery O2 Flow Rate FiO2 10/06/17 07:50 97.0 58 20 124/77 (93) 91 10/05/17 20:00 96.4 102 16 137/72 (93) 98 I/O 10/05/17 10/05/17 10/05/17 10/06/17 10/06/17 10/06/17 07:00 15:00 23:00 07:00 15:00 23:00 Intake Total 480 ml 840 ml 500 ml Output Total 1 ml Balance 479 ml 840 ml 500 ml Intake Oral 480 ml 840 ml 500 ml Stool Total 1 ml # Voids 4 4 3 # Bowel Movements 2 0 Imaging Last Impressions Breast Ultrasound 09/23/17 0000 Signed Impressions: Service Date/Time: September 09:57 - CONCLUSION: Very superficially located complex collection which involves the skin and subcutaneous tissues at 12:00 2 cm from the right nipple which measures 2.4 x 1.7 x 1.8 cm. This may represent a small breast abscess. Clinical correlation is recommended. Culture of the contents of this area would be helpful for further treatment. Angel Toure MD Chest X-Ray 09/03/17 0000 Signed Impressions: Service Date/Time: Sunday, September 03, 2017 17:02 - CONCLUSION: 1. Mild edema pattern. Subsegmental basilar airspace disease most characteristic of atelectasis.. Fadi Carolina MD Cervical Spine CT 09/02/17 0000 Signed Impressions: Service Date/Time: August 12:56 - CONCLUSION: Postsurgical changes from anterior cervical plate at C6-7. No evidence of compression deformity or spondylolisthesis. Arun Regan MD Pelvis X-Ray 06/30/17 0000 Signed Impressions: Service Date/Time: Friday, June 30, 2017 12:17 - CONCLUSION: No significant change has occurred. Carlos Capps MD Objective Remarks GENERAL: Well-nourished, well-developed female lying in bed in [facility]. SKIN: Warm and dry. No rash. Right breast lesion noted, some purulent drainage, bandage changed. Some erythema. No pain to site. HEENT: Normocephalic. Atraumatic. Pupils equal and round. No scleral icterus. No injection or drainage. No nasal bleeding or discharge. Mucous membranes pink and moist. NECK: Supple. Trachea midline. CARDIOVASCULAR: Regular rate and rhythm. S1, S2 noted. No murmur appreciated. RESPIRATORY: No accessory muscle use. Clear to auscultation. Breath sounds equal bilaterally. GASTROINTESTINAL: Abdomen soft, non-tender, nondistended. Normoactive bowel sounds x4. No guarding noted. MUSCULOSKELETAL: No obvious deformities. Extremities without clubbing, cyanosis , or edema. NEUROLOGICAL: Awake and alert. No obvious cranial nerve deficits. Motor grossly within normal limits. 5/5 muscle strength in bilateral upper and lower extremities. Normal speech. PSYCHIATRIC: Appropriate mood and affect. A/P Problem List: (1) Alcohol dependence in controlled environment ICD Code: F10.20 - Alcohol dependence, uncomplicated Status: Chronic (2) Facial injury ICD Code: S09.93XA - Unspecified injury of face, initial encounter Status: Acute (3) Fall ICD Code: W19.XXXA - Unspecified fall, initial encounter Status: Acute (4) Hypertension ICD Code: I10 - Essential (primary) hypertension Status: Acute (5) Pelvic fracture ICD Code: S32.9XXA - Fracture of unspecified parts of lumbosacral spine and pelvis, initial encounter for closed fracture Status: Acute (6) C1-C2 subluxation ICD Code: S13.120A - Subluxation of C1/C2 cervical vertebrae, initial encounter Status: Acute (7) C6 cervical fracture ICD Code: S12.500A - Unspecified displaced fracture of sixth cervical vertebra , initial encounter for closed fracture Status: Acute (8) Traumatic brain injury ICD Code: S06.9X9A - Unspecified intracranial injury with loss of consciousness of unspecified duration, initial encounter Status: Acute (9) Nasal fracture ICD Code: S02.2XXA - Fracture of nasal bones, initial encounter for closed fracture Status: Acute (10) Mild neurocognitive disorder ICD Code: G31.84 - Mild cognitive impairment, so stated Status: Acute (11) Intracranial bleed ICD Code: I62.9 - Nontraumatic intracranial hemorrhage, unspecified Status: Acute Assessment and Plan Inability to care for self, unsafe discharge due to cognition Initially he was indicated patient cannot walk, patient is walking at this time, PT and OT recommending supervision at home for safety Speech therapy following the patient intermittently for cognitive evaluations. 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 Mini mental state 28/30, recommended avoid antipsychotics for benzodiazepine. Recommending Depakote or carbamazepine Patient is medically stable for discharge, however due to underlying psychiatric/cognition patient is unsafe discharge until arrangements made by case management Case management for discharge planning Neuropsychiatry evaluated the patient recommended patient may improve with treatment, however indicates avoid benzodiazepines and antipsychotics Continue Prozac 40 mg daily, Depakene 500 mg twice daily and Seroquel 50 mg every 8 hours *Discussed with psychiatry again about patient's cognition issues. He indicated that the patient lacks capacity for signing AMA or to participate in discharge plan. He is recommending that he would invite the ethics committee to the hospital to have a discussion about patient care. * Consulted case management for ethics committee review, awaiting response Multiple traumatic injuries Patient laceration, subdural hemorrhage, ventricular hemorrhage, nasal fracture, C6 fracture, C1-C2 subluxation, C4 transverse process fracture, right rib fracture, L1 transverse process fracture, right pubic rami fracture Continue c-collar this time, however patient does not wear Specialist no longer following patient, patient will require outpatient follow-up if discharge Right breast abscess Physical exam patient does have a erythematous area with drainage Ultrasound does show complex loculated collection measuring 2.4 x 1.7 x 1.8 cm. Representing breast abscess Continue Bactrim by mouth for 10 days, until 10/08/17 Reevaluated after antibiotics, may need I&D Hypertension, Amlodipine 5 mg daily DVT prevention Patient ambulating Sequential compression devices while in bed Records were reviewed. Awaiting case management for discharge planning, No change in current treatment plan. Discharge Planning Patient is medically stable for discharge, however due to underlying psychiatric /cognition patient is unsafe discharge until arrangements made by case management Problem Qualifiers (1) Hypertension: Qualified Codes: I10 - Essential (primary) hypertension Alyssa Means Oct 06, 2017 14:02
[2017-10-06 20:00] VITALS: BP 130/79; PULSE 66; RESP 20; TEMP 97.8; O2SAT 92
[2017-10-07 08:00] VITALS: BP 151/81; PULSE 60; RESP 16; TEMP 97.4; O2SAT 95
[2017-10-07] MEDS: FLUoxetine HCL 20 MG CAP PO SCH (09:22)
[2017-10-07] MEDS: VALPROIC ACID 250 MG CAP PO SCH ×2 (09:23→20:59)
[2017-10-07] MEDS: QUEtiapine FUMARATE 100 MG TAB PO SCH ×2 (09:23→20:59)
[2017-10-07] MEDS: SULFAMETHOXAZOLE-TRIMETHOPRIM DS 800-160 MG TAB PO SCH ×2 (09:23→20:59)
[2017-10-07] MEDS: amLODIPine BESYLATE 5 MG TAB PO SCH (09:23)
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
[2017-10-07 20:00] VITALS: BP 129/79; PULSE 71; RESP 18; TEMP 97.6; O2SAT 97
[2017-10-07] MEDS: ACETAMINOPHEN 325 MG TAB PO PRN (21:00)
[2017-10-08 08:00] VITALS: BP 143/78; PULSE 73; RESP 18; TEMP 97.4; O2SAT 95
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
[2017-10-08] MEDS: FLUoxetine HCL 20 MG CAP PO SCH (09:02)
[2017-10-08] MEDS: QUEtiapine FUMARATE 100 MG TAB PO SCH ×2 (09:02→20:01)
[2017-10-08] MEDS: amLODIPine BESYLATE 5 MG TAB PO SCH (09:03)
[2017-10-08] MEDS: SULFAMETHOXAZOLE-TRIMETHOPRIM DS 800-160 MG TAB PO SCH ×2 (09:03→22:38)
[2017-10-08] MEDS: VALPROIC ACID 250 MG CAP PO SCH ×2 (09:03→20:01)
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
[2017-10-08] MEDS: ACETAMINOPHEN 325 MG TAB PO PRN (20:02)
[2017-10-08 20:06] VITALS: BP 116/83; PULSE 72; RESP 16; TEMP 97.8; O2SAT 98
[2017-10-08] MEDS ORDERED: LIDOCAINE 1%/EPINEPHrine 1:100,000 SOLN 50 ML VIAL OTHER ONE (20:30)
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
[2017-10-09 08:00] VITALS: BP 135/76; PULSE 69; RESP 20; TEMP 96.8; O2SAT 95
--- NOTE | 2017-10-09 08:20 | HHI.PR ---
cc: Robin Valdes MD Subjective Subjective Notes no fevers, right breast pain unchanged Objective Vitals/I&O Vital Signs Date Time Temp Pulse Resp B/P (MAP) Pulse Ox O2 Delivery O2 Flow Rate FiO2 10/09/17 08:00 96.8 69 20 135/76 (95) 95 Labs Date/Time Source Procedure Growth Status 09/02/17 10:35 Urine Clean Catch Urine Culture - Final Escherichia Coli Complete 09/24/17 11:18 Wound Breast Gram Stain - Final Complete 09/24/17 11:18 Wound Breast Wound Culture - Final RARE GROWTH NORMAL SKIN ALEE... Complete Wound Wound : Wound Location: Chest (small area of redness superior to areola, no significant cellulitis, no purulence, dressing c/d/i) A/P Assessment and Plan right breast abscess, I attempted aspiration without purulence- PLAN continue local wound care extend abx 5 more days dressing changes patient will need out patient Mammogram Robin Valdes MD Oct 09, 2017 08:20
[2017-10-09] MEDS: QUEtiapine FUMARATE 100 MG TAB PO SCH ×2 (08:28→20:16)
[2017-10-09] MEDS: VALPROIC ACID 250 MG CAP PO SCH ×2 (08:29→20:13)
[2017-10-09] MEDS: FLUoxetine HCL 20 MG CAP PO SCH (08:29)
[2017-10-09] MEDS: amLODIPine BESYLATE 5 MG TAB PO SCH (08:30)
[2017-10-09] MEDS: SULFAMETHOXAZOLE-TRIMETHOPRIM DS 800-160 MG TAB PO SCH ×3 (09:10→20:13)
--- NOTE | 2017-10-09 16:07 | HHI.PR ---
Subjective Remarks Follow up unsafe discharge due to cognition. Patient seen and examined walking the unit with sitter. Attempted to leave three times today. Attempted to reorient and redirect. Patient denies any changes, just wants to go home to see her children. Ambulating well. Eating well. Surgeon in to see patient who recommends one more week of Bactrim. Will continue to monitor breast abscess. Objective Vitals Vital Signs Date Time Temp Pulse Resp B/P (MAP) Pulse Ox O2 Delivery O2 Flow Rate FiO2 10/09/17 08:00 96.8 69 20 135/76 (95) 95 10/08/17 20:06 97.8 72 16 116/83 (94) 98 I/O 10/08/17 10/08/17 10/08/17 10/09/17 10/09/17 10/09/17 07:00 15:00 23:00 07:00 15:00 23:00 Intake Total 300 ml 950 ml 480 ml Balance 300 ml 950 ml 480 ml Intake Oral 300 ml 950 ml 480 ml # Voids 1 3 2 3 # Bowel Movements 0 Imaging Last Impressions Breast Ultrasound 09/23/17 0000 Signed Impressions: Service Date/Time: September 09:57 - CONCLUSION: Very superficially located complex collection which involves the skin and subcutaneous tissues at 12:00 2 cm from the right nipple which measures 2.4 x 1.7 x 1.8 cm. This may represent a small breast abscess. Clinical correlation is recommended. Culture of the contents of this area would be helpful for further treatment. Angel Toure MD Chest X-Ray 09/03/17 0000 Signed Impressions: Service Date/Time: Sunday, September 03, 2017 17:02 - CONCLUSION: 1. Mild edema pattern. Subsegmental basilar airspace disease most characteristic of atelectasis.. Fadi Carolina MD Cervical Spine CT 09/02/17 0000 Signed Impressions: Service Date/Time: August 12:56 - CONCLUSION: Postsurgical changes from anterior cervical plate at C6-7. No evidence of compression deformity or spondylolisthesis. Arun Regan MD Pelvis X-Ray 06/30/17 0000 Signed Impressions: Service Date/Time: Friday, June 30, 2017 12:17 - CONCLUSION: No significant change has occurred. Carlos Capps MD Objective Remarks GENERAL: Well-nourished, well-developed female lying in bed in [facility]. SKIN: Warm and dry. No rash. Right breast lesion noted, some purulent drainage, bandage changed. Some erythema. No pain to site. HEENT: Normocephalic. Atraumatic. Pupils equal and round. No scleral icterus. No injection or drainage. No nasal bleeding or discharge. Mucous membranes pink and moist. NECK: Supple. Trachea midline. CARDIOVASCULAR: Regular rate and rhythm. S1, S2 noted. No murmur appreciated. RESPIRATORY: No accessory muscle use. Clear to auscultation. Breath sounds equal bilaterally. GASTROINTESTINAL: Abdomen soft, non-tender, nondistended. Normoactive bowel sounds x4. No guarding noted. MUSCULOSKELETAL: No obvious deformities. Extremities without clubbing, cyanosis , or edema. NEUROLOGICAL: Awake and alert. No obvious cranial nerve deficits. Motor grossly within normal limits. 5/5 muscle strength in bilateral upper and lower extremities. Normal speech. PSYCHIATRIC: Appropriate mood and affect. A/P Problem List: (1) Alcohol dependence in controlled environment ICD Code: F10.20 - Alcohol dependence, uncomplicated Status: Chronic (2) Facial injury ICD Code: S09.93XA - Unspecified injury of face, initial encounter Status: Acute (3) Fall ICD Code: W19.XXXA - Unspecified fall, initial encounter Status: Acute (4) Hypertension ICD Code: I10 - Essential (primary) hypertension Status: Acute (5) Pelvic fracture ICD Code: S32.9XXA - Fracture of unspecified parts of lumbosacral spine and pelvis, initial encounter for closed fracture Status: Acute (6) C1-C2 subluxation ICD Code: S13.120A - Subluxation of C1/C2 cervical vertebrae, initial encounter Status: Acute (7) C6 cervical fracture ICD Code: S12.500A - Unspecified displaced fracture of sixth cervical vertebra , initial encounter for closed fracture Status: Acute (8) Traumatic brain injury ICD Code: S06.9X9A - Unspecified intracranial injury with loss of consciousness of unspecified duration, initial encounter Status: Acute (9) Nasal fracture ICD Code: S02.2XXA - Fracture of nasal bones, initial encounter for closed fracture Status: Acute (10) Mild neurocognitive disorder ICD Code: G31.84 - Mild cognitive impairment, so stated Status: Acute (11) Intracranial bleed ICD Code: I62.9 - Nontraumatic intracranial hemorrhage, unspecified Status: Acute Assessment and Plan Inability to care for self, unsafe discharge due to cognition Initially he was indicated patient cannot walk, patient is walking at this time, PT and OT recommending supervision at home for safety Speech therapy following the patient intermittently for cognitive evaluations. 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 Mini mental state 28/30, recommended avoid antipsychotics for benzodiazepine. Recommending Depakote or carbamazepine Patient is medically stable for discharge, however due to underlying psychiatric/cognition patient is unsafe discharge until arrangements made by case management Case management for discharge planning Neuropsychiatry evaluated the patient recommended patient may improve with treatment, however indicates avoid benzodiazepines and antipsychotics Continue Prozac 40 mg daily, Depakene 500 mg twice daily and Seroquel 50 mg every 8 hours *Discussed with psychiatry again about patient's cognition issues. He indicated that the patient lacks capacity for signing AMA or to participate in discharge plan. He is recommending that he would invite the ethics committee to the hospital to have a discussion about patient care. * Consulted case management for ethics committee review, awaiting response Multiple traumatic injuries Patient laceration, subdural hemorrhage, ventricular hemorrhage, nasal fracture, C6 fracture, C1-C2 subluxation, C4 transverse process fracture, right rib fracture, L1 transverse process fracture, right pubic rami fracture Continue c-collar this time, however patient does not wear Specialist no longer following patient, patient will require outpatient follow-up if discharge Right breast abscess Physical exam patient does have a erythematous area with drainage Ultrasound does show complex loculated collection measuring 2.4 x 1.7 x 1.8 cm. Representing breast abscess Continue Bactrim by mouth for 10 days. Finished course 10/08/17. Per surgeon, will resume Bactrim for another week. Continue to monitor. Right breast abscess assessed with continued drainage. Surgeon following. Hypertension, Amlodipine 5 mg daily DVT prevention Patient ambulating Sequential compression devices while in bed Records were reviewed. Awaiting case management for discharge planning, No change in current treatment plan. Discharge Planning Patient is medically stable for discharge, however due to underlying psychiatric /cognition patient is unsafe discharge until arrangements made by case management Problem Qualifiers (1) Hypertension: Qualified Codes: I10 - Essential (primary) hypertension Alyssa Means Oct 09, 2017 16:07
[2017-10-09 21:02] VITALS: BP 116/77; PULSE 92; RESP 14; TEMP 98; O2SAT 98
--- NOTE | 2017-10-10 07:59 | HHI.PR ---
cc: Robin Valdes MD Subjective Subjective Notes no fevers, right breast pain a bit better Objective Vitals/I&O Vital Signs Date Time Temp Pulse Resp B/P (MAP) Pulse Ox O2 Delivery O2 Flow Rate FiO2 10/09/17 21:02 98.0 92 14 116/77 (90) 98 Labs Date/Time Source Procedure Growth Status 09/02/17 10:35 Urine Clean Catch Urine Culture - Final Escherichia Coli Complete 09/24/17 11:18 Wound Breast Gram Stain - Final Complete 09/24/17 11:18 Wound Breast Wound Culture - Final RARE GROWTH NORMAL SKIN ALEE... Complete Narrative Exam right breast with healing abscess A/P Assessment and Plan right breast abscess, appears improving slowly PLAN continue local wound care extend abx 5 more days dressing changes patient will need out patient Mammogram will s/o reconsult if needed pt can f/u with me in the office Robin Valdes MD Oct 10, 2017 07:59
[2017-10-10 08:00] VITALS: BP 117/70; PULSE 68; RESP 18; TEMP 99.2; O2SAT 97
[2017-10-10] MEDS: VALPROIC ACID 250 MG CAP PO SCH ×2 (08:42→20:29)
[2017-10-10] MEDS: FLUoxetine HCL 20 MG CAP PO SCH (08:42)
[2017-10-10] MEDS: amLODIPine BESYLATE 5 MG TAB PO SCH (08:42)
[2017-10-10] MEDS: SULFAMETHOXAZOLE-TRIMETHOPRIM DS 800-160 MG TAB PO SCH ×3 (08:42→20:29)
[2017-10-10] MEDS: QUEtiapine FUMARATE 100 MG TAB PO SCH ×2 (08:42→20:29)
--- NOTE | 2017-10-10 10:53 | HHI.PR ---
Subjective Remarks Follow up unsafe discharge due to cognition. Patient seen and examined, lying in bed sleeping. Awakens to voice. Denies any pain. Pleasantly confused to situation, states she wants to get out of here soon. Eating well. Ambulating well. Gen sx following patient for breast abscess. Patient denies any pain or discomfort. VSS. Afebrile. Objective Vitals Vital Signs Date Time Temp Pulse Resp B/P (MAP) Pulse Ox O2 Delivery O2 Flow Rate FiO2 10/10/17 08:00 99.2 68 18 117/70 (86) 97 10/09/17 21:02 98.0 92 14 116/77 (90) 98 I/O 10/09/17 10/09/17 10/09/17 10/10/17 10/10/17 10/10/17 07:00 15:00 23:00 07:00 15:00 23:00 Intake Total 480 ml 240 ml Balance 480 ml 240 ml Intake Oral 480 ml 240 ml # Voids 3 1 Imaging Last Impressions Breast Ultrasound 09/23/17 0000 Signed Impressions: Service Date/Time: September 09:57 - CONCLUSION: Very superficially located complex collection which involves the skin and subcutaneous tissues at 12:00 2 cm from the right nipple which measures 2.4 x 1.7 x 1.8 cm. This may represent a small breast abscess. Clinical correlation is recommended. Culture of the contents of this area would be helpful for further treatment. Angel Toure MD Chest X-Ray 09/03/17 0000 Signed Impressions: Service Date/Time: Sunday, September 03, 2017 17:02 - CONCLUSION: 1. Mild edema pattern. Subsegmental basilar airspace disease most characteristic of atelectasis.. Fadi Carolina MD Cervical Spine CT 09/02/17 0000 Signed Impressions: Service Date/Time: August 12:56 - CONCLUSION: Postsurgical changes from anterior cervical plate at C6-7. No evidence of compression deformity or spondylolisthesis. Arun Regan MD Pelvis X-Ray 06/30/17 0000 Signed Impressions: Service Date/Time: Friday, June 30, 2017 12:17 - CONCLUSION: No significant change has occurred. Carlos Capps MD Objective Remarks GENERAL: Well-nourished, well-developed female lying in bed in [facility]. SKIN: Warm and dry. No rash. Right breast abscess present, bandage in place per surgery. No pain to site. HEENT: Normocephalic. Atraumatic. Pupils equal and round. No scleral icterus. No injection or drainage. No nasal bleeding or discharge. Mucous membranes pink and moist. NECK: Supple. Trachea midline. CARDIOVASCULAR: Regular rate and rhythm. S1, S2 noted. No murmur appreciated. RESPIRATORY: No accessory muscle use. Clear to auscultation. Breath sounds equal bilaterally. GASTROINTESTINAL: Abdomen soft, non-tender, nondistended. Normoactive bowel sounds x4. No guarding noted. MUSCULOSKELETAL: No obvious deformities. Extremities without clubbing, cyanosis , or edema. NEUROLOGICAL: Awake and alert. No obvious cranial nerve deficits. Motor grossly within normal limits. 5/5 muscle strength in bilateral upper and lower extremities. Normal speech. PSYCHIATRIC: Appropriate mood and affect. A/P Problem List: (1) Alcohol dependence in controlled environment ICD Code: F10.20 - Alcohol dependence, uncomplicated Status: Chronic (2) Facial injury ICD Code: S09.93XA - Unspecified injury of face, initial encounter Status: Acute (3) Fall ICD Code: W19.XXXA - Unspecified fall, initial encounter Status: Acute (4) Hypertension ICD Code: I10 - Essential (primary) hypertension Status: Acute (5) Pelvic fracture ICD Code: S32.9XXA - Fracture of unspecified parts of lumbosacral spine and pelvis, initial encounter for closed fracture Status: Acute (6) C1-C2 subluxation ICD Code: S13.120A - Subluxation of C1/C2 cervical vertebrae, initial encounter Status: Acute (7) C6 cervical fracture ICD Code: S12.500A - Unspecified displaced fracture of sixth cervical vertebra , initial encounter for closed fracture Status: Acute (8) Traumatic brain injury ICD Code: S06.9X9A - Unspecified intracranial injury with loss of consciousness of unspecified duration, initial encounter Status: Acute (9) Nasal fracture ICD Code: S02.2XXA - Fracture of nasal bones, initial encounter for closed fracture Status: Acute (10) Mild neurocognitive disorder ICD Code: G31.84 - Mild cognitive impairment, so stated Status: Acute (11) Intracranial bleed ICD Code: I62.9 - Nontraumatic intracranial hemorrhage, unspecified Status: Acute Assessment and Plan Inability to care for self, unsafe discharge due to cognition Initially he was indicated patient cannot walk, patient is walking at this time, PT and OT recommending supervision at home for safety Speech therapy following the patient intermittently for cognitive evaluations. 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 Mini mental state 28/30, recommended avoid antipsychotics for benzodiazepine. Recommending Depakote or carbamazepine Patient is medically stable for discharge, however due to underlying psychiatric/cognition patient is unsafe discharge until arrangements made by case management Case management for discharge planning Neuropsychiatry evaluated the patient recommended patient may improve with treatment, however indicates avoid benzodiazepines and antipsychotics Continue Prozac 40 mg daily, Depakene 500 mg twice daily and Seroquel 50 mg every 8 hours *Discussed with psychiatry again about patient's cognition issues. He indicated that the patient lacks capacity for signing AMA or to participate in discharge plan. He is recommending that he would invite the ethics committee to the hospital to have a discussion about patient care. * Consulted case management for ethics committee review, awaiting response Multiple traumatic injuries Patient laceration, subdural hemorrhage, ventricular hemorrhage, nasal fracture, C6 fracture, C1-C2 subluxation, C4 transverse process fracture, right rib fracture, L1 transverse process fracture, right pubic rami fracture Continue c-collar this time, however patient does not wear Specialist no longer following patient, patient will require outpatient follow-up if discharge Right breast abscess Physical exam patient does have a erythematous area with drainage Ultrasound does show complex loculated collection measuring 2.4 x 1.7 x 1.8 cm. Representing breast abscess Continue Bactrim by mouth for 10 days. Finished course 10/08/17. Per surgeon, will resume Bactrim for another week. Continue to monitor. Right breast abscess assessed with continued drainage. Surgeon following. Hypertension, Amlodipine 5 mg daily DVT prevention Patient ambulating Sequential compression devices while in bed Records were reviewed. Awaiting case management for discharge planning, No change in current treatment plan. Discharge Planning Patient is medically stable for discharge, however due to underlying psychiatric /cognition patient is unsafe discharge until arrangements made by case management Problem Qualifiers (1) Hypertension: Qualified Codes: I10 - Essential (primary) hypertension Alyssa Means Oct 10, 2017 10:53
[2017-10-10 20:00] VITALS: BP 125/78; PULSE 73; RESP 18; TEMP 97.8; O2SAT 97
[2017-10-11 08:00] VITALS: BP 126/83; PULSE 73; RESP 18; TEMP 97; O2SAT 94
[2017-10-11] MEDS: FLUoxetine HCL 20 MG CAP PO SCH (08:20)
[2017-10-11] MEDS: QUEtiapine FUMARATE 100 MG TAB PO SCH ×2 (08:20→20:50)
[2017-10-11] MEDS: VALPROIC ACID 250 MG CAP PO SCH ×2 (08:20→20:50)
[2017-10-11] MEDS: SULFAMETHOXAZOLE-TRIMETHOPRIM DS 800-160 MG TAB PO SCH ×2 (08:20→20:50)
[2017-10-11] MEDS: amLODIPine BESYLATE 5 MG TAB PO SCH (08:20)
--- NOTE | 2017-10-11 15:02 | HHI.PR ---
Subjective Remarks Follow up unsafe discharge due to cognition. Patient seen and examined, ambulating in room. Denies any new acute complaints. Eating well. Pleasantly confused to place and situation. No reports of any new events overnight. Objective Vitals Vital Signs Date Time Temp Pulse Resp B/P (MAP) Pulse Ox O2 Delivery O2 Flow Rate FiO2 10/11/17 08:00 97.0 73 18 126/83 (97) 94 10/10/17 20:00 97.8 73 18 125/78 (94) 97 I/O 10/10/17 10/10/17 10/10/17 10/11/17 10/11/17 10/11/17 07:00 15:00 23:00 07:00 15:00 23:00 Intake Total 240 ml 600 ml 180 ml Output Total 1 ml Balance 240 ml 599 ml 180 ml Intake Oral 240 ml 600 ml 180 ml Stool Total 1 ml # Voids 4 Imaging Last Impressions Breast Ultrasound 09/23/17 0000 Signed Impressions: Service Date/Time: September 09:57 - CONCLUSION: Very superficially located complex collection which involves the skin and subcutaneous tissues at 12:00 2 cm from the right nipple which measures 2.4 x 1.7 x 1.8 cm. This may represent a small breast abscess. Clinical correlation is recommended. Culture of the contents of this area would be helpful for further treatment. Angel Toure MD Chest X-Ray 09/03/17 0000 Signed Impressions: Service Date/Time: Sunday, September 03, 2017 17:02 - CONCLUSION: 1. Mild edema pattern. Subsegmental basilar airspace disease most characteristic of atelectasis.. Fadi Carolina MD Cervical Spine CT 09/02/17 0000 Signed Impressions: Service Date/Time: August 12:56 - CONCLUSION: Postsurgical changes from anterior cervical plate at C6-7. No evidence of compression deformity or spondylolisthesis. Arun Regan MD Pelvis X-Ray 06/30/17 0000 Signed Impressions: Service Date/Time: Friday, June 30, 2017 12:17 - CONCLUSION: No significant change has occurred. Carlos Capps MD Objective Remarks GENERAL: Well-nourished, well-developed female lying in bed in [facility]. SKIN: Warm and dry. No rash. Right breast abscess present, bandage in place per surgery. No pain to site. HEENT: Normocephalic. Atraumatic. Pupils equal and round. No scleral icterus. No injection or drainage. No nasal bleeding or discharge. Mucous membranes pink and moist. NECK: Supple. Trachea midline. CARDIOVASCULAR: Regular rate and rhythm. S1, S2 noted. No murmur appreciated. RESPIRATORY: No accessory muscle use. Clear to auscultation. Breath sounds equal bilaterally. GASTROINTESTINAL: Abdomen soft, non-tender, nondistended. Normoactive bowel sounds x4. No guarding noted. MUSCULOSKELETAL: No obvious deformities. Extremities without clubbing, cyanosis , or edema. NEUROLOGICAL: Awake and alert. No obvious cranial nerve deficits. Motor grossly within normal limits. 5/5 muscle strength in bilateral upper and lower extremities. Normal speech. PSYCHIATRIC: Appropriate mood and affect. A/P Problem List: (1) Alcohol dependence in controlled environment ICD Code: F10.20 - Alcohol dependence, uncomplicated Status: Chronic (2) Facial injury ICD Code: S09.93XA - Unspecified injury of face, initial encounter Status: Acute (3) Fall ICD Code: W19.XXXA - Unspecified fall, initial encounter Status: Acute (4) Hypertension ICD Code: I10 - Essential (primary) hypertension Status: Acute (5) Pelvic fracture ICD Code: S32.9XXA - Fracture of unspecified parts of lumbosacral spine and pelvis, initial encounter for closed fracture Status: Acute (6) C1-C2 subluxation ICD Code: S13.120A - Subluxation of C1/C2 cervical vertebrae, initial encounter Status: Acute (7) C6 cervical fracture ICD Code: S12.500A - Unspecified displaced fracture of sixth cervical vertebra , initial encounter for closed fracture Status: Acute (8) Traumatic brain injury ICD Code: S06.9X9A - Unspecified intracranial injury with loss of consciousness of unspecified duration, initial encounter Status: Acute (9) Nasal fracture ICD Code: S02.2XXA - Fracture of nasal bones, initial encounter for closed fracture Status: Acute (10) Mild neurocognitive disorder ICD Code: G31.84 - Mild cognitive impairment, so stated Status: Acute (11) Intracranial bleed ICD Code: I62.9 - Nontraumatic intracranial hemorrhage, unspecified Status: Acute Assessment and Plan Inability to care for self, unsafe discharge due to cognition Initially he was indicated patient cannot walk, patient is walking at this time, PT and OT recommending supervision at home for safety Speech therapy following the patient intermittently for cognitive evaluations. 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 Mini mental state 28/30, recommended avoid antipsychotics for benzodiazepine. Recommending Depakote or carbamazepine Patient is medically stable for discharge, however due to underlying psychiatric/cognition patient is unsafe discharge until arrangements made by case management Case management for discharge planning Neuropsychiatry evaluated the patient recommended patient may improve with treatment, however indicates avoid benzodiazepines and antipsychotics Continue Prozac 40 mg daily, Depakene 500 mg twice daily and Seroquel 50 mg every 8 hours *Discussed with psychiatry again about patient's cognition issues. He indicated that the patient lacks capacity for signing AMA or to participate in discharge plan. He is recommending that he would invite the ethics committee to the hospital to have a discussion about patient care. * Consulted case management for ethics committee review, awaiting response Multiple traumatic injuries Patient laceration, subdural hemorrhage, ventricular hemorrhage, nasal fracture, C6 fracture, C1-C2 subluxation, C4 transverse process fracture, right rib fracture, L1 transverse process fracture, right pubic rami fracture Continue c-collar this time, however patient does not wear Specialist no longer following patient, patient will require outpatient follow-up if discharge Right breast abscess Physical exam patient does have a erythematous area with drainage Ultrasound does show complex loculated collection measuring 2.4 x 1.7 x 1.8 cm. Representing breast abscess Continue Bactrim by mouth for 10 days. Finished course 10/08/17. Per surgeon, will resume Bactrim for another week (end date 10/13). Continue to monitor. Right breast abscess assessed with continued drainage. Hypertension, Amlodipine 5 mg daily DVT prevention Patient ambulating Sequential compression devices while in bed Records were reviewed. Awaiting case management for discharge planning, No change in current treatment plan. Discharge Planning Patient is medically stable for discharge, however due to underlying psychiatric /cognition patient is unsafe discharge until arrangements made by case management Problem Qualifiers (1) Hypertension: Qualified Codes: I10 - Essential (primary) hypertension Alyssa Means Oct 11, 2017 15:02
[2017-10-11 20:00] VITALS: BP 133/80; PULSE 67; RESP 16; TEMP 97.1; O2SAT 95
[2017-10-12 08:00] VITALS: BP 120/70; PULSE 70; RESP 16; TEMP 97.2; O2SAT 99
[2017-10-12] MEDS: FLUoxetine HCL 20 MG CAP PO SCH (09:18)
[2017-10-12] MEDS: VALPROIC ACID 250 MG CAP PO SCH ×2 (09:18→20:45)
[2017-10-12] MEDS: SULFAMETHOXAZOLE-TRIMETHOPRIM DS 800-160 MG TAB PO SCH ×2 (09:18→20:45)
[2017-10-12] MEDS: amLODIPine BESYLATE 5 MG TAB PO SCH (09:19)
[2017-10-12] MEDS: QUEtiapine FUMARATE 100 MG TAB PO SCH ×2 (09:19→20:44)
--- NOTE | 2017-10-12 11:14 | HHI.PR ---
Subjective Remarks Patient's exam today for follow-up on unsafe discharge due to cognition. Patient denies any new complaints. No change in clinical status. Awaiting case management for discharge planning Objective Vitals Vital Signs Date Time Temp Pulse Resp B/P (MAP) Pulse Ox O2 Delivery O2 Flow Rate FiO2 10/12/17 08:00 97.2 70 16 120/70 (87) 99 10/11/17 20:00 97.1 67 16 133/80 (97) 95 I/O 10/11/17 10/11/17 10/11/17 10/12/17 10/12/17 10/12/17 07:00 15:00 23:00 07:00 15:00 23:00 Intake Total 180 ml 600 ml 380 ml Output Total 250 ml Balance 180 ml 350 ml 380 ml Intake Oral 180 ml 600 ml 380 ml Output Urine Total 250 ml # Bowel Movements 1 Objective Remarks GENERAL: Well-developed, well-nourished, in no acute distress. alert and orientated waxes and wanes daily HEENT: Head is normocephalic without any lesions or masses noted. Facial features are symmetric. Eyes: Extraocular muscles are intact. Conjunctivae were clear. NECK: C-collar in on table at bedside CARDIAC: Regular rhythm, regular rate. S1/S2 are heard. No murmurs gallops or rubs. LUNGS: Clear to auscultation bilaterally. No wheeze, rhonchi or rales. No use of accessory muscles on inspiration or expiration. ABDOMEN: Soft, nontender. Nondistended. Bowel sounds heard in all 4 quadrants. No organomegaly or masses. Negative rebound, negative guarding EXTREMITIES: No edema, pulses are equal bilaterally. No cyanosis or clubbing NEUROLOGY: Mood and affect appear appropriate. Cranial nerves II through XII grossly intact moving all extremities, speech is clear Urinary Catheter: No Vascular Central Line Catheter: No A/P Assessment and Plan Inability to care for self, unsafe discharge due to cognition Initially he was indicated patient cannot walk, patient is walking at this time, PT and OT recommending supervision at home for safety Speech therapy following the patient intermittently for cognitive evaluations. 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 MIni mental state 28/30, recommended avoid antipsychotics for benzodiazepine. Recommending Depakote or carbamazepine Patient is medically stable for discharge, however due to underlying psychiatric/cognition patient is unsafe discharge until arrangements made by case management Case management for discharge planning Neuropsychiatry evaluated the patient recommended patient may improve with treatment, however indicates avoid benzodiazepines and antipsychotics Continue Prozac 40 mg daily Depakene 500 mg twice daily Seroquel 100 mg twice daily *Discussed with psychiatry again about patient's cognition issues. He indicated that the patient lacks capacity for signing AMA or to participate in discharge plan. He is recommending that he would invite the ethics committee to the hospital to have a discussion about patient care *Consulted case management for ethics committee review, awaiting response Multiple traumatic injuries, Patient laceration, subdural hemorrhage, ventricular hemorrhage, nasal fracture, C6 fracture, C1-C2 subluxation, C4 transverse process fracture, right rib fracture, L1 transverse process fracture, right pubic rami fracture Continue c-collar this time, however patient does not wear Specialist no longer following patient, patient will require outpatient follow-up if discharge Right breast abscess Physical exam patient does have a erythematous area with drainage Ultrasound does show complex loculated collection measuring 2.4 x 1.7 x 1.8 cm. Representing breast abscess Finish Bactrim by mouth for 10 days, surgery recommends one more week of antibiotics Gen. surgery consulted who recommends no intervention at this time, continue antibiotics Hypertension, Amlodipine 5 mg daily DVT prevention Patient ambulating Sequential compression devices while in bed Records were reviewed. Awaiting case management for discharge planning, No change in current treatment plan. Discharge Planning Case management for discharge planning Conrado Mariee Oct 12, 2017 11:14
[2017-10-12 20:00] VITALS: BP 128/91; PULSE 63; RESP 20; TEMP 97.7; O2SAT 93
[2017-10-13 08:00] VITALS: BP 119/67; PULSE 72; RESP 16; TEMP 98.7; O2SAT 92
[2017-10-13] MEDS: FLUoxetine HCL 20 MG CAP PO SCH (08:40)
[2017-10-13] MEDS: QUEtiapine FUMARATE 100 MG TAB PO SCH ×2 (08:40→20:34)
[2017-10-13] MEDS: amLODIPine BESYLATE 5 MG TAB PO SCH (08:41)
[2017-10-13] MEDS: VALPROIC ACID 250 MG CAP PO SCH ×2 (08:41→20:34)
[2017-10-13] MEDS: SULFAMETHOXAZOLE-TRIMETHOPRIM DS 800-160 MG TAB PO SCH (08:43)
--- NOTE | 2017-10-13 08:48 | HHI.PR ---
Subjective Remarks Patient's exam today for follow-up on unsafe discharge due to cognition. Patient denies any new complaints. No change in clinical status. Awaiting case management for discharge planning. Patient afebrile, Vital signs stable Objective Vitals Vital Signs Date Time Temp Pulse Resp B/P (MAP) Pulse Ox O2 Delivery O2 Flow Rate FiO2 10/12/17 20:00 97.7 63 20 128/91 (103) 93 I/O 10/12/17 10/12/17 10/12/17 10/13/17 10/13/17 10/13/17 07:00 15:00 23:00 07:00 15:00 23:00 Intake Total 380 ml 600 ml 240 ml Balance 380 ml 600 ml 240 ml Intake Oral 380 ml 600 ml 240 ml # Voids 4 1 # Bowel Movements 1 0 Objective Remarks GENERAL: Well-developed, well-nourished, in no acute distress. alert and orientated waxes and wanes daily HEENT: Head is normocephalic without any lesions or masses noted. Facial features are symmetric. Eyes: Extraocular muscles are intact. Conjunctivae were clear. NECK: C-collar in on table at bedside CARDIAC: Regular rhythm, regular rate. S1/S2 are heard. No murmurs gallops or rubs. LUNGS: Clear to auscultation bilaterally. No wheeze, rhonchi or rales. No use of accessory muscles on inspiration or expiration. ABDOMEN: Soft, nontender. Nondistended. Bowel sounds heard in all 4 quadrants. No organomegaly or masses. Negative rebound, negative guarding EXTREMITIES: No edema, pulses are equal bilaterally. No cyanosis or clubbing NEUROLOGY: Mood and affect appear appropriate. Cranial nerves II through XII grossly intact moving all extremities, speech is clear Urinary Catheter: No Vascular Central Line Catheter: No A/P Assessment and Plan Inability to care for self, unsafe discharge due to cognition Initially he was indicated patient cannot walk, patient is walking at this time, PT and OT recommending supervision at home for safety Speech therapy following the patient intermittently for cognitive evaluations. 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 MIni mental state 28/30, recommended avoid antipsychotics for benzodiazepine. Recommending Depakote or carbamazepine Patient is medically stable for discharge, however due to underlying psychiatric/cognition patient is unsafe discharge until arrangements made by case management Case management for discharge planning Neuropsychiatry evaluated the patient recommended patient may improve with treatment, however indicates avoid benzodiazepines and antipsychotics Continue Prozac 40 mg daily Depakene 500 mg twice daily Seroquel 100 mg twice daily *Discussed with psychiatry again about patient's cognition issues. He indicated that the patient lacks capacity for signing AMA or to participate in discharge plan. He is recommending that he would invite the ethics committee to the hospital to have a discussion about patient care *Consulted case management for ethics committee review, awaiting response Multiple traumatic injuries, Patient laceration, subdural hemorrhage, ventricular hemorrhage, nasal fracture, C6 fracture, C1-C2 subluxation, C4 transverse process fracture, right rib fracture, L1 transverse process fracture, right pubic rami fracture Continue c-collar this time, however patient does not wear Specialist no longer following patient, patient will require outpatient follow-up if discharge Right breast abscess Physical exam patient does have a erythematous area with drainage Ultrasound does show complex loculated collection measuring 2.4 x 1.7 x 1.8 cm. Representing breast abscess Finish Bactrim by mouth for 10 days, surgery recommends one more week of antibiotics Gen. surgery consulted who recommends no intervention at this time, continue antibiotics Hypertension, Amlodipine 5 mg daily DVT prevention Patient ambulating Sequential compression devices while in bed Records were reviewed. No change in current treatment plan. Awaiting case management for discharge planning, Discharge Planning Case management for discharge planning Conrado Mariee Oct 13, 2017 08:47
[2017-10-13 20:00] VITALS: BP 134/78; PULSE 70; RESP 18; TEMP 97.9; O2SAT 96
[2017-10-14 08:42] VITALS: BP 126/71; PULSE 56; RESP 16; TEMP 97.6; O2SAT 93
[2017-10-14] MEDS: VALPROIC ACID 250 MG CAP PO SCH ×2 (09:00→20:17)
[2017-10-14] MEDS: FLUoxetine HCL 20 MG CAP PO SCH (09:01)
[2017-10-14] MEDS: QUEtiapine FUMARATE 100 MG TAB PO SCH ×2 (09:01→20:17)
[2017-10-14] MEDS: amLODIPine BESYLATE 5 MG TAB PO SCH (09:01)
--- NOTE | 2017-10-14 11:00 | HHI.PR ---
Subjective Remarks Patient seen and examined today for follow-up on unsafe discharge due to cognition. Patient denies any new complaints. No change in clinical status. Awaiting case management for discharge planning Objective Vitals Vital Signs Date Time Temp Pulse Resp B/P (MAP) Pulse Ox O2 Delivery O2 Flow Rate FiO2 10/14/17 08:42 97.6 56 16 126/71 (89) 93 10/13/17 20:00 97.9 70 18 134/78 (96) 96 I/O 10/13/17 10/13/17 10/13/17 10/14/17 10/14/17 10/14/17 07:00 15:00 23:00 07:00 15:00 23:00 Intake Total 240 ml 222 ml 444 ml Balance 240 ml 222 ml 444 ml Intake Oral 240 ml 222 ml 444 ml # Voids 1 4 2 # Bowel Movements 0 1 Objective Remarks GENERAL: Well-developed, well-nourished, in no acute distress. alert and orientated waxes and wanes daily HEENT: Head is normocephalic without any lesions or masses noted. Facial features are symmetric. Eyes: Extraocular muscles are intact. Conjunctivae were clear. NECK: C-collar in on table at bedside CARDIAC: Regular rhythm, regular rate. S1/S2 are heard. No murmurs gallops or rubs. LUNGS: Clear to auscultation bilaterally. No wheeze, rhonchi or rales. No use of accessory muscles on inspiration or expiration. ABDOMEN: Soft, nontender. Nondistended. Bowel sounds heard in all 4 quadrants. No organomegaly or masses. Negative rebound, negative guarding EXTREMITIES: No edema, pulses are equal bilaterally. No cyanosis or clubbing NEUROLOGY: Mood and affect appear appropriate. Cranial nerves II through XII grossly intact moving all extremities, speech is clear Urinary Catheter: No Vascular Central Line Catheter: No A/P Assessment and Plan Inability to care for self, unsafe discharge due to cognition Initially he was indicated patient cannot walk, patient is walking at this time, PT and OT recommending supervision at home for safety Speech therapy following the patient intermittently for cognitive evaluations. 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 MIni mental state 28/30, recommended avoid antipsychotics for benzodiazepine. Recommending Depakote or carbamazepine Patient is medically stable for discharge, however due to underlying psychiatric/cognition patient is unsafe discharge until arrangements made by case management Case management for discharge planning Neuropsychiatry evaluated the patient recommended patient may improve with treatment, however indicates avoid benzodiazepines and antipsychotics Continue Prozac 40 mg daily Depakene 500 mg twice daily Seroquel 100 mg twice daily *Discussed with psychiatry again about patient's cognition issues. He indicated that the patient lacks capacity for signing AMA or to participate in discharge plan. He is recommending that he would invite the ethics committee to the hospital to have a discussion about patient care *Consulted case management for ethics committee review, awaiting response Multiple traumatic injuries, Patient laceration, subdural hemorrhage, ventricular hemorrhage, nasal fracture, C6 fracture, C1-C2 subluxation, C4 transverse process fracture, right rib fracture, L1 transverse process fracture, right pubic rami fracture Continue c-collar this time, however patient does not wear Specialist no longer following patient, patient will require outpatient follow-up if discharge Right breast abscess Physical exam patient does have a erythematous area with drainage Ultrasound does show complex loculated collection measuring 2.4 x 1.7 x 1.8 cm. Representing breast abscess Finish Bactrim by mouth for 10 days, surgery recommends one more week of antibiotics Gen. surgery consulted who recommends no intervention at this time, continue antibiotics Hypertension, Amlodipine 5 mg daily DVT prevention Patient ambulating Sequential compression devices while in bed Records were reviewed. Awaiting case management for discharge planning, No change in current treatment plan. Discharge Planning Case management for discharge planning Conrado Mariee Oct 14, 2017 11:00
[2017-10-14 20:00] VITALS: BP 154/87; PULSE 69; RESP 18; TEMP 98.7; O2SAT 97
[2017-10-15 08:00] VITALS: BP 154/75; PULSE 67; RESP 14; TEMP 98.1; O2SAT 97
[2017-10-15] MEDS: FLUoxetine HCL 20 MG CAP PO SCH (08:04)
[2017-10-15] MEDS: QUEtiapine FUMARATE 100 MG TAB PO SCH ×2 (08:04→20:45)
[2017-10-15] MEDS: amLODIPine BESYLATE 5 MG TAB PO SCH (08:04)
[2017-10-15] MEDS: VALPROIC ACID 250 MG CAP PO SCH ×2 (08:04→20:45)
--- NOTE | 2017-10-15 08:34 | HHI.PR ---
Subjective Remarks Patient seen and examined today for follow-up on unsafe discharge due to cognition. No change in clinical status. No acute events overnight. Patient very eager to be discharged. Awaiting case management discharge planning Objective Vitals Vital Signs Date Time Temp Pulse Resp B/P (MAP) Pulse Ox O2 Delivery O2 Flow Rate FiO2 10/14/17 20:00 98.7 69 18 154/87 (109) 97 10/14/17 08:42 97.6 56 16 126/71 (89) 93 I/O 10/14/17 10/14/17 10/14/17 10/15/17 10/15/17 10/15/17 07:00 15:00 23:00 07:00 15:00 23:00 Intake Total 700 ml Balance 700 ml Intake Oral 700 ml # Voids 2 3 Objective Remarks GENERAL: Well-developed, well-nourished, in no acute distress. alert and orientated waxes and wanes daily HEENT: Head is normocephalic without any lesions or masses noted. Facial features are symmetric. Eyes: Extraocular muscles are intact. Conjunctivae were clear. NECK: C-collar in on table at bedside CARDIAC: Regular rhythm, regular rate. S1/S2 are heard. No murmurs gallops or rubs. LUNGS: Clear to auscultation bilaterally. No wheeze, rhonchi or rales. No use of accessory muscles on inspiration or expiration. ABDOMEN: Soft, nontender. Nondistended. Bowel sounds heard in all 4 quadrants. No organomegaly or masses. Negative rebound, negative guarding EXTREMITIES: No edema, pulses are equal bilaterally. No cyanosis or clubbing NEUROLOGY: Mood and affect appear appropriate. Cranial nerves II through XII grossly intact moving all extremities, speech is clear Urinary Catheter: No Vascular Central Line Catheter: No A/P Assessment and Plan Inability to care for self, unsafe discharge due to cognition Initially he was indicated patient cannot walk, patient is walking at this time, PT and OT recommending supervision at home for safety Speech therapy following the patient intermittently for cognitive evaluations. 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 MIni mental state 28/30, recommended avoid antipsychotics for benzodiazepine. Recommending Depakote or carbamazepine Patient is medically stable for discharge, however due to underlying psychiatric/cognition patient is unsafe discharge until arrangements made by case management Case management for discharge planning Neuropsychiatry evaluated the patient recommended patient may improve with treatment, however indicates avoid benzodiazepines and antipsychotics Continue Prozac 40 mg daily Depakene 500 mg twice daily Seroquel 100 mg twice daily *Discussed with psychiatry again about patient's cognition issues. He indicated that the patient lacks capacity for signing AMA or to participate in discharge plan. He is recommending that he would invite the ethics committee to the hospital to have a discussion about patient care *Consulted case management for ethics committee review, awaiting response Multiple traumatic injuries, Patient laceration, subdural hemorrhage, ventricular hemorrhage, nasal fracture, C6 fracture, C1-C2 subluxation, C4 transverse process fracture, right rib fracture, L1 transverse process fracture, right pubic rami fracture Continue c-collar this time, however patient does not wear Specialist no longer following patient, patient will require outpatient follow-up if discharge Right breast abscess Physical exam patient does have a erythematous area with drainage Ultrasound does show complex loculated collection measuring 2.4 x 1.7 x 1.8 cm. Representing breast abscess Finished Bactrim DS for 18 days Gen. surgery consulted who recommends no intervention at this time, Repeat soft tissue ultrasound to evaluate abscess Hypertension, Amlodipine 5 mg daily DVT prevention Patient ambulating Sequential compression devices while in bed Discharge Planning Case management for discharge planning Conrado Mariee Oct 15, 2017 08:34
--- NOTE | 2017-10-15 10:56 | RADRPT ---
EXAM DATE/TIME: 10/15/2017 09:06 [facility] COMPARISON: US BREAST RIGHT, September 23, 2017, 9:57. INDICATIONS : Right breast abscess. MEDICAL HISTORY : Arthritis. Osteoporosis. Bilateral macular degeneration. CVA. Blood clot. Confusion. HTN. Pelvic an d cervical fracture. ETOH abuse. SURGICAL HISTORY : Right leg surgery. Blood transfusions. ENCOUNTER: Subsequent ACUITY: 1 month PAIN SCORE: 0/10 LOCATION: Right breast. FINDINGS: Lee scale and Doppler ultrasound imaging was performed in the area of clinical concern which is loca joann at the 12: 00 position, 2 cm from the nipple in the right breast. At this location there is a hypoechoic avascul ar structure that is T-shaped and located in the immediate subcutaneous tissue. It measures 1.5 x 1.3 x 2.2 cm compared to 2.4 x 1.7 x 1.8 cm previously. It may communicate with the skin. CONCLUSION: Persistent subcutaneous collection at the 12:00 position of the right breast. It has slightly decreas ed in size since the study dated 09/23/2017 and could represent an infectious process. Consider follo wup to confirm resolution. Jovany Quezada MD on October 15, 2017 at 10:51 Board Certified Radiologist. This report was verified electronically.
[2017-10-15 20:00] VITALS: BP 124/82; PULSE 76; RESP 16; TEMP 96.5; O2SAT 97
[2017-10-16 08:00] VITALS: BP 170/84; PULSE 51; RESP 16; TEMP 96.3; O2SAT 92
[2017-10-16] MEDS: VALPROIC ACID 250 MG CAP PO SCH ×2 (09:18→21:11)
[2017-10-16] MEDS: QUEtiapine FUMARATE 100 MG TAB PO SCH ×2 (09:19→21:11)
[2017-10-16] MEDS: FLUoxetine HCL 20 MG CAP PO SCH (09:19)
[2017-10-16] MEDS: amLODIPine BESYLATE 5 MG TAB PO SCH (09:19)
--- NOTE | 2017-10-16 11:02 | HHI.PR ---
Subjective Remarks Patient seen and examined today for follow-up on unsafe discharge due to cognition. Patient resting in bed carefully. Denies any new complaints. No change in clinical status. Awaiting case management for discharge planning. Objective Vitals Vital Signs Date Time Temp Pulse Resp B/P (MAP) Pulse Ox O2 Delivery O2 Flow Rate FiO2 10/16/17 08:00 96.3 51 16 170/84 (112) 92 10/15/17 20:00 96.5 76 16 124/82 (96) 97 I/O 10/15/17 10/15/17 10/15/17 10/16/17 10/16/17 10/16/17 07:00 15:00 23:00 07:00 15:00 23:00 Intake Total 1182 ml Balance 1182 ml Intake Oral 1182 ml # Voids 1 2 Objective Remarks GENERAL: Well-developed, well-nourished, in no acute distress. alert and orientated waxes and wanes daily HEENT: Head is normocephalic without any lesions or masses noted. Facial features are symmetric. Eyes: Extraocular muscles are intact. Conjunctivae were clear. NECK: C-collar in on table at bedside CARDIAC: Regular rhythm, regular rate. S1/S2 are heard. No murmurs gallops or rubs. LUNGS: Clear to auscultation bilaterally. No wheeze, rhonchi or rales. No use of accessory muscles on inspiration or expiration. ABDOMEN: Soft, nontender. Nondistended. Bowel sounds heard in all 4 quadrants. No organomegaly or masses. Negative rebound, negative guarding EXTREMITIES: No edema, pulses are equal bilaterally. No cyanosis or clubbing NEUROLOGY: Mood and affect appear appropriate. Cranial nerves II through XII grossly intact moving all extremities, speech is clear Urinary Catheter: No Vascular Central Line Catheter: No A/P Assessment and Plan Inability to care for self, unsafe discharge due to cognition Initially he was indicated patient cannot walk, patient is walking at this time, PT and OT recommending supervision at home for safety Speech therapy following the patient intermittently for cognitive evaluations. 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 MIni mental state 28/30, recommended avoid antipsychotics for benzodiazepine. Recommending Depakote or carbamazepine Patient is medically stable for discharge, however due to underlying psychiatric/cognition patient is unsafe discharge until arrangements made by case management Case management for discharge planning Neuropsychiatry evaluated the patient recommended patient may improve with treatment, however indicates avoid benzodiazepines and antipsychotics Continue Prozac 40 mg daily Depakene 500 mg twice daily Seroquel 100 mg twice daily *Discussed with psychiatry again about patient's cognition issues. He indicated that the patient lacks capacity for signing AMA or to participate in discharge plan. He is recommending that he would invite the ethics committee to the hospital to have a discussion about patient care *Consulted case management for ethics committee review, awaiting response Multiple traumatic injuries, Patient laceration, subdural hemorrhage, ventricular hemorrhage, nasal fracture, C6 fracture, C1-C2 subluxation, C4 transverse process fracture, right rib fracture, L1 transverse process fracture, right pubic rami fracture Continue c-collar this time, however patient does not wear Specialist no longer following patient, patient will require outpatient follow-up if discharge Right breast abscess Physical exam patient does have a erythematous area with drainage Ultrasound does show complex loculated collection measuring 2.4 x 1.7 x 1.8 cm. Representing breast abscess Start Augmentin 500 mg twice daily for 10 days. Finished Bactrim DS for 18 days Gen. surgery consulted who recommends no intervention at this time, Soft tissue ultrasound shows a improvement of the fluid collection. Hypertension, Increased to Amlodipine 10 mg daily DVT prevention Patient ambulating Sequential compression devices while in bed Discharge Planning Case management for discharge planning Conrado Mariee Oct 16, 2017 11:02
[2017-10-16] MEDS: AMOXICILLIN/CLAVULANATE K 500 MG TAB PO SCH ×2 (12:02→21:11)
[2017-10-16 19:00] VITALS: BP 126/81; PULSE 67; RESP 16; TEMP 98.3; O2SAT 98
[2017-10-17 08:00] VITALS: BP 146/70; PULSE 68; RESP 18; TEMP 97.4; O2SAT 95
--- NOTE | 2017-10-17 08:46 | HHI.PR ---
Subjective Remarks Patient seen and examined today for follow-up on unsafe discharge due to cognition. Patient doing well at this time. Denies any new complaints. Objective Vitals Vital Signs Date Time Temp Pulse Resp B/P (MAP) Pulse Ox O2 Delivery O2 Flow Rate FiO2 10/16/17 19:00 98.3 67 16 126/81 (96) 98 I/O 10/16/17 10/16/17 10/16/17 10/17/17 10/17/17 10/17/17 07:00 15:00 23:00 07:00 15:00 23:00 Intake Total 0 ml Balance 0 ml IV Total 0 ml # Voids 2 2 Objective Remarks GENERAL: Well-developed, well-nourished, in no acute distress. alert and orientated waxes and wanes daily HEENT: Head is normocephalic without any lesions or masses noted. Facial features are symmetric. Eyes: Extraocular muscles are intact. Conjunctivae were clear. NECK: C-collar in on table at bedside CARDIAC: Regular rhythm, regular rate. S1/S2 are heard. No murmurs gallops or rubs. LUNGS: Clear to auscultation bilaterally. No wheeze, rhonchi or rales. No use of accessory muscles on inspiration or expiration. ABDOMEN: Soft, nontender. Nondistended. Bowel sounds heard in all 4 quadrants. No organomegaly or masses. Negative rebound, negative guarding EXTREMITIES: No edema, pulses are equal bilaterally. No cyanosis or clubbing NEUROLOGY: Mood and affect appear appropriate. Cranial nerves II through XII grossly intact moving all extremities, speech is clear Urinary Catheter: No Vascular Central Line Catheter: No A/P Assessment and Plan Inability to care for self, unsafe discharge due to cognition Initially he was indicated patient cannot walk, patient is walking at this time, PT and OT recommending supervision at home for safety Speech therapy following the patient intermittently for cognitive evaluations. 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 MIni mental state 28/30, recommended avoid antipsychotics for benzodiazepine. Recommending Depakote or carbamazepine Patient is medically stable for discharge, however due to underlying psychiatric/cognition patient is unsafe discharge until arrangements made by case management Case management for discharge planning Neuropsychiatry evaluated the patient recommended patient may improve with treatment, however indicates avoid benzodiazepines and antipsychotics Continue Prozac 40 mg daily Depakene 500 mg twice daily Seroquel 100 mg twice daily *Discussed with psychiatry again about patient's cognition issues. He indicated that the patient lacks capacity for signing AMA or to participate in discharge plan. He is recommending that he would invite the ethics committee to the hospital to have a discussion about patient care *Consulted case management for ethics committee review, awaiting response Multiple traumatic injuries, Patient laceration, subdural hemorrhage, ventricular hemorrhage, nasal fracture, C6 fracture, C1-C2 subluxation, C4 transverse process fracture, right rib fracture, L1 transverse process fracture, right pubic rami fracture Continue c-collar this time, however patient does not wear Specialist no longer following patient, patient will require outpatient follow-up if discharge Right breast abscess Physical exam patient does have a erythematous area with drainage Ultrasound does show complex loculated collection measuring 2.4 x 1.7 x 1.8 cm. Representing breast abscess Start Augmentin 500 mg twice daily for 10 days. Finished Bactrim DS for 18 days Gen. surgery consulted who recommends no intervention at this time, Soft tissue ultrasound shows a improvement of the fluid collection. Hypertension, Increased to Amlodipine 10 mg daily DVT prevention Patient ambulating Sequential compression devices while in bed Medical records are reviewed, no change in current treatment plan. Awaiting case management for discharge planning Discharge Planning Case management for discharge planning, was notified that patient might be discharging next week Conrado Mariee Oct 17, 2017 08:46
[2017-10-17] MEDS: FLUoxetine HCL 20 MG CAP PO SCH (09:30)
[2017-10-17] MEDS: VALPROIC ACID 250 MG CAP PO SCH ×2 (09:30→21:02)
[2017-10-17] MEDS: AMOXICILLIN/CLAVULANATE K 500 MG TAB PO SCH ×2 (09:30→21:02)
[2017-10-17] MEDS: QUEtiapine FUMARATE 100 MG TAB PO SCH ×2 (09:35→21:02)
[2017-10-17 19:00] VITALS: BP 134/93; PULSE 75; RESP 16; TEMP 97.6; O2SAT 94
[2017-10-17 19:27] VITALS: O2SAT 93
[2017-10-18] MEDS: FLUoxetine HCL 20 MG CAP PO SCH (07:53)
[2017-10-18] MEDS: QUEtiapine FUMARATE 100 MG TAB PO SCH ×2 (07:53→20:39)
[2017-10-18] MEDS: VALPROIC ACID 250 MG CAP PO SCH ×2 (07:54→20:39)
[2017-10-18] MEDS: AMOXICILLIN/CLAVULANATE K 500 MG TAB PO SCH ×2 (07:54→20:38)
--- NOTE | 2017-10-18 07:58 | HHI.PR ---
Subjective Remarks Patient seen and examined today for follow-up on unsafe discharge due to cognition. Patient denies any new complaints. No change in clinical status. Awaiting case management associate discharge planning. It was indicated by case management that possibly this week if paperwork can be done and patient accepted at halfway facility Objective Vitals Vital Signs Date Time Temp Pulse Resp B/P (MAP) Pulse Ox O2 Delivery O2 Flow Rate FiO2 10/17/17 19:27 93 21 10/17/17 19:00 97.6 75 16 134/93 (107) 94 10/17/17 08:00 97.4 68 18 146/70 (95) 95 I/O 10/17/17 10/17/17 10/17/17 10/18/17 10/18/17 10/18/17 07:00 15:00 23:00 07:00 15:00 23:00 Intake Total 550 ml Output Total 400 ml Balance 550 ml -400 ml Intake Oral 550 ml Output Urine Total 400 ml # Voids 2 2 3 # Bowel Movements 1 Objective Remarks GENERAL: Well-developed, well-nourished, in no acute distress. alert and orientated waxes and wanes daily HEENT: Head is normocephalic without any lesions or masses noted. Facial features are symmetric. Eyes: Extraocular muscles are intact. Conjunctivae were clear. NECK: C-collar in on table at bedside CARDIAC: Regular rhythm, regular rate. S1/S2 are heard. No murmurs gallops or rubs. LUNGS: Clear to auscultation bilaterally. No wheeze, rhonchi or rales. No use of accessory muscles on inspiration or expiration. ABDOMEN: Soft, nontender. Nondistended. Bowel sounds heard in all 4 quadrants. No organomegaly or masses. Negative rebound, negative guarding EXTREMITIES: No edema, pulses are equal bilaterally. No cyanosis or clubbing NEUROLOGY: Mood and affect appear appropriate. Cranial nerves II through XII grossly intact moving all extremities, speech is clear Urinary Catheter: No Vascular Central Line Catheter: No A/P Assessment and Plan Inability to care for self, unsafe discharge due to cognition Initially he was indicated patient cannot walk, patient is walking at this time, PT and OT recommending supervision at home for safety Speech therapy following the patient intermittently for cognitive evaluations. 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 MIni mental state 28/30, recommended avoid antipsychotics for benzodiazepine. Recommending Depakote or carbamazepine Patient is medically stable for discharge, however due to underlying psychiatric/cognition patient is unsafe discharge until arrangements made by case management Case management for discharge planning Neuropsychiatry evaluated the patient recommended patient may improve with treatment, however indicates avoid benzodiazepines and antipsychotics Continue Prozac 40 mg daily Depakene 500 mg twice daily Seroquel 100 mg twice daily *Discussed with psychiatry again about patient's cognition issues. He indicated that the patient lacks capacity for signing AMA or to participate in discharge plan. He is recommending that he would invite the ethics committee to the hospital to have a discussion about patient care *Consulted case management for ethics committee review, awaiting response Multiple traumatic injuries, Patient laceration, subdural hemorrhage, ventricular hemorrhage, nasal fracture, C6 fracture, C1-C2 subluxation, C4 transverse process fracture, right rib fracture, L1 transverse process fracture, right pubic rami fracture Continue c-collar this time, however patient does not wear Specialist no longer following patient, patient will require outpatient follow-up if discharge Right breast abscess Physical exam patient does have a erythematous area with drainage Ultrasound does show complex loculated collection measuring 2.4 x 1.7 x 1.8 cm. Representing breast abscess Start Augmentin 500 mg twice daily for 10 days. Finished Bactrim DS for 18 days Gen. surgery consulted who recommends no intervention at this time, Soft tissue ultrasound shows a improvement of the fluid collection. Hypertension, Increased to Amlodipine 10 mg daily DVT prevention Patient ambulating Sequential compression devices while in bed Medical records are reviewed, Awaiting case management for discharge planning. no change in current treatment plan. Discharge Planning Case management for discharge planning, was notified that patient might be discharging this week if accepted at local skilled facility Conrado Mariee Oct 18, 2017 07:58
[2017-10-18 08:00] VITALS: BP 166/88; PULSE 52; RESP 16; TEMP 97.5; O2SAT 96
[2017-10-18 20:00] VITALS: BP 151/91; PULSE 66; RESP 20; TEMP 97.5; O2SAT 91
[2017-10-19 08:00] VITALS: BP 164/82; PULSE 68; RESP 14; TEMP 97.6; O2SAT 93
--- NOTE | 2017-10-19 08:41 | HHI.PR ---
Subjective Remarks Follow-up on unsafe discharge due to cognition. Patient seen and examined. Lying in bed comfortably. Pleasant. Denies any new acute complaints. Denies any pain. VSS. Afebrile. Objective Vitals Vital Signs Date Time Temp Pulse Resp B/P (MAP) Pulse Ox O2 Delivery O2 Flow Rate FiO2 10/18/17 20:00 97.5 66 20 151/91 (111) 91 I/O 10/18/17 10/18/17 10/18/17 10/19/17 10/19/17 10/19/17 07:00 15:00 23:00 07:00 15:00 23:00 Intake Total 1440 ml 480 ml 180 ml Balance 1440 ml 480 ml 180 ml Intake Oral 1440 ml 480 ml 180 ml # Voids 3 5 2 1 # Bowel Movements 0 Imaging Last Impressions Breast Ultrasound 10/15/17 0000 Signed Impressions: Service Date/Time: Sunday, October 15, 2017 09:06 - CONCLUSION: Persistent subcutaneous collection at the 12:00 position of the right breast. It has slightly decreased in size since the study dated 09/23/2017 and could represent an infectious process. Consider followup to confirm resolution. Jovany Quezada MD Chest X-Ray 09/03/17 0000 Signed Impressions: Service Date/Time: Sunday, September 03, 2017 17:02 - CONCLUSION: 1. Mild edema pattern. Subsegmental basilar airspace disease most characteristic of atelectasis.. Fadi Carolina MD Cervical Spine CT 09/02/17 0000 Signed Impressions: Service Date/Time: August 12:56 - CONCLUSION: Postsurgical changes from anterior cervical plate at C6-7. No evidence of compression deformity or spondylolisthesis. Arun Regan MD Pelvis X-Ray 06/30/17 0000 Signed Impressions: Service Date/Time: Friday, June 30, 2017 12:17 - CONCLUSION: No significant change has occurred. Carlos Capps MD Objective Remarks GENERAL: Well-nourished, well-developed female lying in bed in NAD. SKIN: Warm and dry. No rash. Right breast abscess present, bandage in place per surgery. No pain to site. HEENT: Normocephalic. Atraumatic. Pupils equal and round. No scleral icterus. No injection or drainage. No nasal bleeding or discharge. Mucous membranes pink and moist. NECK: Supple. Trachea midline. CARDIOVASCULAR: Regular rate and rhythm. S1, S2 noted. No murmur appreciated. RESPIRATORY: No accessory muscle use. Clear to auscultation. Breath sounds equal bilaterally. GASTROINTESTINAL: Abdomen soft, non-tender, nondistended. Normoactive bowel sounds x4. No guarding noted. MUSCULOSKELETAL: No obvious deformities. Extremities without clubbing, cyanosis , or edema. NEUROLOGICAL: Awake and alert. No obvious cranial nerve deficits. Motor grossly within normal limits. 5/5 muscle strength in bilateral upper and lower extremities. Normal speech. PSYCHIATRIC: Appropriate mood and affect. A/P Problem List: (1) Alcohol dependence in controlled environment ICD Code: F10.20 - Alcohol dependence, uncomplicated Status: Chronic (2) Facial injury ICD Code: S09.93XA - Unspecified injury of face, initial encounter Status: Acute (3) Fall ICD Code: W19.XXXA - Unspecified fall, initial encounter Status: Acute (4) Hypertension ICD Code: I10 - Essential (primary) hypertension Status: Acute (5) Pelvic fracture ICD Code: S32.9XXA - Fracture of unspecified parts of lumbosacral spine and pelvis, initial encounter for closed fracture Status: Acute (6) C1-C2 subluxation ICD Code: S13.120A - Subluxation of C1/C2 cervical vertebrae, initial encounter Status: Acute (7) C6 cervical fracture ICD Code: S12.500A - Unspecified displaced fracture of sixth cervical vertebra , initial encounter for closed fracture Status: Acute (8) Traumatic brain injury ICD Code: S06.9X9A - Unspecified intracranial injury with loss of consciousness of unspecified duration, initial encounter Status: Acute (9) Nasal fracture ICD Code: S02.2XXA - Fracture of nasal bones, initial encounter for closed fracture Status: Acute (10) Mild neurocognitive disorder ICD Code: G31.84 - Mild cognitive impairment, so stated Status: Acute (11) Intracranial bleed ICD Code: I62.9 - Nontraumatic intracranial hemorrhage, unspecified Status: Acute Assessment and Plan Inability to care for self, unsafe discharge due to cognition Initially he was indicated patient cannot walk, patient is walking at this time, PT and OT recommending supervision at home for safety Speech therapy following the patient intermittently for cognitive evaluations. 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 Mini mental state 28/30, recommended avoid antipsychotics for benzodiazepine. Recommending Depakote or carbamazepine Patient is medically stable for discharge, however due to underlying psychiatric/cognition patient is unsafe discharge until arrangements made by case management Case management for discharge planning Neuropsychiatry evaluated the patient recommended patient may improve with treatment, however indicates avoid benzodiazepines and antipsychotics Continue Prozac 40 mg daily, Depakene 500 mg twice daily and Seroquel 50 mg every 8 hours *Discussed with psychiatry again about patient's cognition issues. He indicated that the patient lacks capacity for signing AMA or to participate in discharge plan. He is recommending that he would invite the ethics committee to the hospital to have a discussion about patient care. * Consulted case management for ethics committee review, awaiting response Multiple traumatic injuries Patient laceration, subdural hemorrhage, ventricular hemorrhage, nasal fracture, C6 fracture, C1-C2 subluxation, C4 transverse process fracture, right rib fracture, L1 transverse process fracture, right pubic rami fracture Continue c-collar this time, however patient does not wear Specialist no longer following patient, patient will require outpatient follow-up if discharge Right breast abscess Physical exam shows improvement. Ultrasound does show complex loculated collection measuring 2.4 x 1.7 x 1.8 cm. Representing breast abscess Continue Bactrim by mouth for 10 days. Finished course 10/08/17. Per surgeon, will resume Bactrim for another week (end date 10/13). Continue to monitor. Start Augmentin 500 mg twice daily for 10 days (end date 10/25/17). Finished Bactrim DS for 18 days Gen. surgery consulted who recommends no intervention at this time, Soft tissue ultrasound shows a improvement of the fluid collection. Hypertension, Amlodipine 5 mg daily DVT prevention Patient ambulating Sequential compression devices while in bed Records were reviewed. Awaiting case management for discharge planning, No change in current treatment plan. Discharge Planning Patient is medically stable for discharge, however due to underlying psychiatric /cognition patient is unsafe discharge until arrangements made by case management. Possible discharge this week. Problem Qualifiers (1) Hypertension: Qualified Codes: I10 - Essential (primary) hypertension Alyssa Means Oct 19, 2017 08:41
[2017-10-19] MEDS: QUEtiapine FUMARATE 100 MG TAB PO SCH ×2 (08:52→21:20)
[2017-10-19] MEDS: VALPROIC ACID 250 MG CAP PO SCH ×2 (08:52→21:22)
[2017-10-19] MEDS: AMOXICILLIN/CLAVULANATE K 500 MG TAB PO SCH ×2 (08:52→21:20)
[2017-10-19] MEDS: FLUoxetine HCL 20 MG CAP PO SCH (08:53)
[2017-10-19 12:00] VITALS: BP 140/85; PULSE 67; RESP 14; TEMP 96.3; O2SAT 92
[2017-10-19 16:00] VITALS: BP 166/87; PULSE 74; RESP 14; TEMP 96; O2SAT 95
[2017-10-19 20:00] VITALS: BP 133/88; PULSE 66; RESP 20; TEMP 97.5; O2SAT 96
--- NOTE | 2017-10-20 07:38 | HHI.PR ---
Subjective Remarks Follow-up on unsafe discharge due to cognition. Patient seen and examined. Lying in bed sleeping. Sitter at bedside. Patient awakens to voice, alert. Speech clear. Denies any acute events overnight. Denies any pain. Eating well. Ambulating well. Afebrile. VSS. Objective Vitals Vital Signs Date Time Temp Pulse Resp B/P (MAP) Pulse Ox O2 Delivery O2 Flow Rate FiO2 10/19/17 20:00 97.5 66 20 133/88 (103) 96 10/19/17 16:00 96.0 74 14 166/87 (113) 95 10/19/17 12:00 96.3 67 14 140/85 (103) 92 10/19/17 08:00 97.6 68 14 164/82 (109) 93 I/O 10/19/17 10/19/17 10/19/17 10/20/17 10/20/17 10/20/17 07:00 15:00 23:00 07:00 15:00 23:00 Intake Total 180 ml 444 ml 222 ml 340 ml Balance 180 ml 444 ml 222 ml 340 ml Intake Oral 180 ml 444 ml 222 ml 340 ml # Voids 1 4 1 # Bowel Movements 0 1 0 Imaging Last Impressions Breast Ultrasound 10/15/17 0000 Signed Impressions: Service Date/Time: Sunday, October 15, 2017 09:06 - CONCLUSION: Persistent subcutaneous collection at the 12:00 position of the right breast. It has slightly decreased in size since the study dated 09/23/2017 and could represent an infectious process. Consider followup to confirm resolution. Jovany Quezada MD Chest X-Ray 09/03/17 0000 Signed Impressions: Service Date/Time: Sunday, September 03, 2017 17:02 - CONCLUSION: 1. Mild edema pattern. Subsegmental basilar airspace disease most characteristic of atelectasis.. Fadi Carolina MD Cervical Spine CT 09/02/17 0000 Signed Impressions: Service Date/Time: August 12:56 - CONCLUSION: Postsurgical changes from anterior cervical plate at C6-7. No evidence of compression deformity or spondylolisthesis. Arun Regan MD Pelvis X-Ray 06/30/17 0000 Signed Impressions: Service Date/Time: Wednesday, June 30, 2017 12:17 - CONCLUSION: No significant change has occurred. Carlos Capps MD Objective Remarks GENERAL: Well-nourished, well-developed female lying in bed in NAD. SKIN: Warm and dry. No rash. Right breast abscess present, bandage in place per surgery. No pain to site. HEENT: Normocephalic. Atraumatic. Pupils equal and round. No scleral icterus. No injection or drainage. No nasal bleeding or discharge. Mucous membranes pink and moist. NECK: Supple. Trachea midline. CARDIOVASCULAR: Regular rate and rhythm. S1, S2 noted. No murmur appreciated. RESPIRATORY: No accessory muscle use. Clear to auscultation. Breath sounds equal bilaterally. GASTROINTESTINAL: Abdomen soft, non-tender, nondistended. Normoactive bowel sounds x4. No guarding noted. MUSCULOSKELETAL: No obvious deformities. Extremities without clubbing, cyanosis , or edema. NEUROLOGICAL: Awake and alert. No obvious cranial nerve deficits. Motor grossly within normal limits. 5/5 muscle strength in bilateral upper and lower extremities. Normal speech. PSYCHIATRIC: Appropriate mood and affect. A/P Problem List: (1) Alcohol dependence in controlled environment ICD Code: F10.20 - Alcohol dependence, uncomplicated Status: Chronic (2) Facial injury ICD Code: S09.93XA - Unspecified injury of face, initial encounter Status: Acute (3) Fall ICD Code: W19.XXXA - Unspecified fall, initial encounter Status: Acute (4) Hypertension ICD Code: I10 - Essential (primary) hypertension Status: Acute (5) Pelvic fracture ICD Code: S32.9XXA - Fracture of unspecified parts of lumbosacral spine and pelvis, initial encounter for closed fracture Status: Acute (6) C1-C2 subluxation ICD Code: S13.120A - Subluxation of C1/C2 cervical vertebrae, initial encounter Status: Acute (7) C6 cervical fracture ICD Code: S12.500A - Unspecified displaced fracture of sixth cervical vertebra , initial encounter for closed fracture Status: Acute (8) Traumatic brain injury ICD Code: S06.9X9A - Unspecified intracranial injury with loss of consciousness of unspecified duration, initial encounter Status: Acute (9) Nasal fracture ICD Code: S02.2XXA - Fracture of nasal bones, initial encounter for closed fracture Status: Acute (10) Mild neurocognitive disorder ICD Code: G31.84 - Mild cognitive impairment, so stated Status: Acute (11) Intracranial bleed ICD Code: I62.9 - Nontraumatic intracranial hemorrhage, unspecified Status: Acute Assessment and Plan Inability to care for self, unsafe discharge due to cognition Initially he was indicated patient cannot walk, patient is walking at this time, PT and OT recommending supervision at home for safety Speech therapy following the patient intermittently for cognitive evaluations. 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 Mini mental state 28/30, recommended avoid antipsychotics for benzodiazepine. Recommending Depakote or carbamazepine Patient is medically stable for discharge, however due to underlying psychiatric/cognition patient is unsafe discharge until arrangements made by case management Case management for discharge planning Neuropsychiatry evaluated the patient recommended patient may improve with treatment, however indicates avoid benzodiazepines and antipsychotics Continue Prozac 40 mg daily, Depakene 500 mg twice daily and Seroquel 50 mg every 8 hours *Discussed with psychiatry again about patient's cognition issues. He indicated that the patient lacks capacity for signing AMA or to participate in discharge plan. He is recommending that he would invite the ethics committee to the hospital to have a discussion about patient care. * Consulted case management for ethics committee review, awaiting response Multiple traumatic injuries Patient laceration, subdural hemorrhage, ventricular hemorrhage, nasal fracture, C6 fracture, C1-C2 subluxation, C4 transverse process fracture, right rib fracture, L1 transverse process fracture, right pubic rami fracture Continue c-collar this time, however patient does not wear Specialist no longer following patient, patient will require outpatient follow-up if discharge Right breast abscess Physical exam shows improvement. Ultrasound does show complex loculated collection measuring 2.4 x 1.7 x 1.8 cm. Representing breast abscess Continue Bactrim by mouth for 10 days. Finished course 10/08/17. Per surgeon, will resume Bactrim for another week (end date 10/13). Continue to monitor. Start Augmentin 500 mg twice daily for 10 days (end date 10/25/17). Finished Bactrim DS for 18 days Gen. surgery consulted who recommends no intervention at this time, Soft tissue ultrasound shows a improvement of the fluid collection. Hypertension, Amlodipine 5 mg daily DVT prevention Patient ambulating Sequential compression devices while in bed Records were reviewed. Awaiting case management for discharge planning, No change in current treatment plan. Discharge Planning Patient is medically stable for discharge, however due to underlying psychiatric /cognition patient is unsafe discharge until arrangements made by case management. Possible discharge this week. Problem Qualifiers (1) Hypertension: Qualified Codes: I10 - Essential (primary) hypertension Alyssa Means Oct 20, 2017 07:38
[2017-10-20 09:19] VITALS: BP 155/78; PULSE 56; RESP 15; TEMP 97; O2SAT 93
[2017-10-20] MEDS: VALPROIC ACID 250 MG CAP PO SCH ×2 (09:19→20:49)
[2017-10-20] MEDS: AMOXICILLIN/CLAVULANATE K 500 MG TAB PO SCH ×2 (09:19→20:49)
[2017-10-20] MEDS: QUEtiapine FUMARATE 100 MG TAB PO SCH ×2 (09:19→20:49)
[2017-10-20] MEDS: FLUoxetine HCL 20 MG CAP PO SCH (09:20)
[2017-10-20] MEDS: ACETAMINOPHEN 325 MG TAB PO PRN (16:40)
[2017-10-20 20:00] VITALS: BP 114/77; PULSE 64; RESP 16; TEMP 97.7; O2SAT 92
--- NOTE | 2017-10-21 08:50 | HHI.PR ---
Subjective Remarks Follow-up on unsafe discharge due to cognition. Patient seen and examined. Lying in bed comfortably, awake and alert watching tv. Slept well. Denies any new complaints. Tolerating PO intake. Denies any ab pain, n/v/d. Ambulating well. No change in clinical condition. Objective Vitals Vital Signs Date Time Temp Pulse Resp B/P (MAP) Pulse Ox O2 Delivery O2 Flow Rate FiO2 10/20/17 20:00 97.7 64 16 114/77 (89) 92 10/20/17 09:19 97.0 56 15 155/78 (103) 93 I/O 10/20/17 10/20/17 10/20/17 10/21/17 10/21/17 10/21/17 07:00 15:00 23:00 07:00 15:00 23:00 Intake Total 340 ml 240 ml 900 ml 240 ml Balance 340 ml 240 ml 900 ml 240 ml Intake Oral 340 ml 240 ml 900 ml 240 ml # Voids 1 1 2 1 # Bowel Movements 0 0 Imaging Last Impressions Breast Ultrasound 10/15/17 0000 Signed Impressions: Service Date/Time: Sunday, October 15, 2017 09:06 - CONCLUSION: Persistent subcutaneous collection at the 12:00 position of the right breast. It has slightly decreased in size since the study dated 09/23/2017 and could represent an infectious process. Consider followup to confirm resolution. Jovany Quezada MD Chest X-Ray 09/03/17 0000 Signed Impressions: Service Date/Time: Sunday, September 03, 2017 17:02 - CONCLUSION: 1. Mild edema pattern. Subsegmental basilar airspace disease most characteristic of atelectasis.. Fadi Carolina MD Cervical Spine CT 09/02/17 0000 Signed Impressions: Service Date/Time: August 12:56 - CONCLUSION: Postsurgical changes from anterior cervical plate at C6-7. No evidence of compression deformity or spondylolisthesis. Arun Regan MD Pelvis X-Ray 06/30/17 0000 Signed Impressions: Service Date/Time: Friday, June 30, 2017 12:17 - CONCLUSION: No significant change has occurred. Carlos Capps MD Objective Remarks GENERAL: Well-nourished, well-developed female lying in bed in [facility]. SKIN: Warm and dry. No rash. Right breast abscess improving. Erythema almost resolved. No drainage. No pain to site. HEENT: Normocephalic. Atraumatic. Pupils equal and round. No scleral icterus. No injection or drainage. No nasal bleeding or discharge. Mucous membranes pink and moist. NECK: Supple. Trachea midline. CARDIOVASCULAR: Regular rate and rhythm. S1, S2 noted. No murmur appreciated. RESPIRATORY: No accessory muscle use. Clear to auscultation. Breath sounds equal bilaterally. GASTROINTESTINAL: Abdomen soft, non-tender, nondistended. Normoactive bowel sounds x4. No guarding noted. MUSCULOSKELETAL: No obvious deformities. Extremities without clubbing, cyanosis , or edema. NEUROLOGICAL: Awake and alert. No obvious cranial nerve deficits. Motor grossly within normal limits. 5/5 muscle strength in bilateral upper and lower extremities. Normal speech. PSYCHIATRIC: Appropriate mood and affect. A/P Problem List: (1) Alcohol dependence in controlled environment ICD Code: F10.20 - Alcohol dependence, uncomplicated Status: Chronic (2) Facial injury ICD Code: S09.93XA - Unspecified injury of face, initial encounter Status: Acute (3) Fall ICD Code: W19.XXXA - Unspecified fall, initial encounter Status: Acute (4) Hypertension ICD Code: I10 - Essential (primary) hypertension Status: Acute (5) Pelvic fracture ICD Code: S32.9XXA - Fracture of unspecified parts of lumbosacral spine and pelvis, initial encounter for closed fracture Status: Acute (6) C1-C2 subluxation ICD Code: S13.120A - Subluxation of C1/C2 cervical vertebrae, initial encounter Status: Acute (7) C6 cervical fracture ICD Code: S12.500A - Unspecified displaced fracture of sixth cervical vertebra , initial encounter for closed fracture Status: Acute (8) Traumatic brain injury ICD Code: S06.9X9A - Unspecified intracranial injury with loss of consciousness of unspecified duration, initial encounter Status: Acute (9) Nasal fracture ICD Code: S02.2XXA - Fracture of nasal bones, initial encounter for closed fracture Status: Acute (10) Mild neurocognitive disorder ICD Code: G31.84 - Mild cognitive impairment, so stated Status: Acute (11) Intracranial bleed ICD Code: I62.9 - Nontraumatic intracranial hemorrhage, unspecified Status: Acute Assessment and Plan Inability to care for self, unsafe discharge due to cognition Initially he was indicated patient cannot walk, patient is walking at this time, PT and OT recommending supervision at home for safety Speech therapy following the patient intermittently for cognitive evaluations. 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 Mini mental state 28/30, recommended avoid antipsychotics for benzodiazepine. Recommending Depakote or carbamazepine Patient is medically stable for discharge, however due to underlying psychiatric/cognition patient is unsafe discharge until arrangements made by case management Case management for discharge planning Neuropsychiatry evaluated the patient recommended patient may improve with treatment, however indicates avoid benzodiazepines and antipsychotics Continue Prozac 40 mg daily, Depakene 500 mg twice daily and Seroquel 50 mg every 8 hours *Discussed with psychiatry again about patient's cognition issues. He indicated that the patient lacks capacity for signing AMA or to participate in discharge plan. He is recommending that he would invite the ethics committee to the hospital to have a discussion about patient care. * Consulted case management for ethics committee review, awaiting response Multiple traumatic injuries Patient laceration, subdural hemorrhage, ventricular hemorrhage, nasal fracture, C6 fracture, C1-C2 subluxation, C4 transverse process fracture, right rib fracture, L1 transverse process fracture, right pubic rami fracture Continue c-collar this time, however patient does not wear Specialist no longer following patient, patient will require outpatient follow-up if discharge Right breast abscess Physical exam shows improvement. Ultrasound does show complex loculated collection measuring 2.4 x 1.7 x 1.8 cm. Representing breast abscess Start Augmentin 500 mg twice daily for 10 days (end date 10/25/17). Finished Bactrim DS for 18 days Gen. surgery consulted who recommends no intervention at this time, Soft tissue ultrasound shows a improvement of the fluid collection. Hypertension, Amlodipine 5 mg daily DVT prevention Patient ambulating Sequential compression devices while in bed Records were reviewed. Awaiting case management for discharge planning, No change in current treatment plan. Discharge Planning Patient is medically stable for discharge, however due to underlying psychiatric /cognition patient is unsafe discharge until arrangements made by case management. Possible discharge this week. Problem Qualifiers (1) Hypertension: Qualified Codes: I10 - Essential (primary) hypertension Alyssa Means Oct 21, 2017 08:50
[2017-10-21 09:21] VITALS: BP 152/88; PULSE 125; RESP 16; TEMP 97; O2SAT 92
[2017-10-21] MEDS: QUEtiapine FUMARATE 100 MG TAB PO SCH ×2 (10:27→21:49)
[2017-10-21] MEDS: AMOXICILLIN/CLAVULANATE K 500 MG TAB PO SCH ×2 (10:27→21:49)
[2017-10-21] MEDS: FLUoxetine HCL 20 MG CAP PO SCH (10:27)
[2017-10-21] MEDS: VALPROIC ACID 250 MG CAP PO SCH ×2 (10:27→21:49)
[2017-10-21] MEDS: ACETAMINOPHEN 325 MG TAB PO PRN (12:44)
[2017-10-21 20:00] VITALS: BP 128/73; PULSE 63; RESP 18; TEMP 97.7; O2SAT 92
[2017-10-22 08:00] VITALS: BP 155/82; PULSE 68; RESP 18; TEMP 97.4; O2SAT 95
[2017-10-22] MEDS: FLUoxetine HCL 20 MG CAP PO SCH (09:35)
[2017-10-22] MEDS: VALPROIC ACID 250 MG CAP PO SCH ×2 (09:35→21:02)
[2017-10-22] MEDS: AMOXICILLIN/CLAVULANATE K 500 MG TAB PO SCH ×2 (09:35→21:02)
[2017-10-22] MEDS: QUEtiapine FUMARATE 100 MG TAB PO SCH ×2 (09:38→21:02)
--- NOTE | 2017-10-22 11:40 | HHI.PR ---
Subjective Remarks Follow-up on unsafe discharge due to cognition. Patient seen and examined. Sitting up in chair comfortably, sitter at bedside. Patient pleasantly confused. No change in clinical condition. Objective Vitals Vital Signs Date Time Temp Pulse Resp B/P (MAP) Pulse Ox O2 Delivery O2 Flow Rate FiO2 10/22/17 08:00 97.4 68 18 155/82 (106) 95 10/21/17 20:00 97.7 63 18 128/73 (91) 92 I/O 10/21/17 10/21/17 10/21/17 10/22/17 10/22/17 10/22/17 07:00 15:00 23:00 07:00 15:00 23:00 Intake Total 240 ml Balance 240 ml Intake Oral 240 ml # Voids 1 1 # Bowel Movements 0 Imaging Last Impressions Breast Ultrasound 10/15/17 0000 Signed Impressions: Service Date/Time: Sunday, October 15, 2017 09:06 - CONCLUSION: Persistent subcutaneous collection at the 12:00 position of the right breast. It has slightly decreased in size since the study dated 09/23/2017 and could represent an infectious process. Consider followup to confirm resolution. Jovany Quezada MD Chest X-Ray 09/03/17 0000 Signed Impressions: Service Date/Time: Sunday, September 03, 2017 17:02 - CONCLUSION: 1. Mild edema pattern. Subsegmental basilar airspace disease most characteristic of atelectasis.. Fadi Carolina MD Cervical Spine CT 09/02/17 0000 Signed Impressions: Service Date/Time: August 12:56 - CONCLUSION: Postsurgical changes from anterior cervical plate at C6-7. No evidence of compression deformity or spondylolisthesis. Arun Regan MD Pelvis X-Ray 06/30/17 0000 Signed Impressions: Service Date/Time: Friday, June 30, 2017 12:17 - CONCLUSION: No significant change has occurred. Carlos Capps MD Objective Remarks GENERAL: Well-nourished, well-developed female lying in bed in [facility]. SKIN: Warm and dry. No rash. Right breast abscess improving. Erythema almost resolved. No drainage. No pain to site. HEENT: Normocephalic. Atraumatic. Pupils equal and round. No scleral icterus. No injection or drainage. No nasal bleeding or discharge. Mucous membranes pink and moist. NECK: Supple. Trachea midline. CARDIOVASCULAR: Regular rate and rhythm. S1, S2 noted. No murmur appreciated. RESPIRATORY: No accessory muscle use. Clear to auscultation. Breath sounds equal bilaterally. GASTROINTESTINAL: Abdomen soft, non-tender, nondistended. Normoactive bowel sounds x4. No guarding noted. MUSCULOSKELETAL: No obvious deformities. Extremities without clubbing, cyanosis , or edema. NEUROLOGICAL: Awake and alert. No obvious cranial nerve deficits. Motor grossly within normal limits. 5/5 muscle strength in bilateral upper and lower extremities. Normal speech. PSYCHIATRIC: Appropriate mood and affect. A/P Problem List: (1) Alcohol dependence in controlled environment ICD Code: F10.20 - Alcohol dependence, uncomplicated Status: Chronic (2) Facial injury ICD Code: S09.93XA - Unspecified injury of face, initial encounter Status: Acute (3) Fall ICD Code: W19.XXXA - Unspecified fall, initial encounter Status: Acute (4) Hypertension ICD Code: I10 - Essential (primary) hypertension Status: Acute (5) Pelvic fracture ICD Code: S32.9XXA - Fracture of unspecified parts of lumbosacral spine and pelvis, initial encounter for closed fracture Status: Acute (6) C1-C2 subluxation ICD Code: S13.120A - Subluxation of C1/C2 cervical vertebrae, initial encounter Status: Acute (7) C6 cervical fracture ICD Code: S12.500A - Unspecified displaced fracture of sixth cervical vertebra , initial encounter for closed fracture Status: Acute (8) Traumatic brain injury ICD Code: S06.9X9A - Unspecified intracranial injury with loss of consciousness of unspecified duration, initial encounter Status: Acute (9) Nasal fracture ICD Code: S02.2XXA - Fracture of nasal bones, initial encounter for closed fracture Status: Acute (10) Mild neurocognitive disorder ICD Code: G31.84 - Mild cognitive impairment, so stated Status: Acute (11) Intracranial bleed ICD Code: I62.9 - Nontraumatic intracranial hemorrhage, unspecified Status: Acute Assessment and Plan Inability to care for self, unsafe discharge due to cognition Initially he was indicated patient cannot walk, patient is walking at this time, PT and OT recommending supervision at home for safety Speech therapy following the patient intermittently for cognitive evaluations. 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 Mini mental state 28/30, recommended avoid antipsychotics for benzodiazepine. Recommending Depakote or carbamazepine Patient is medically stable for discharge, however due to underlying psychiatric/cognition patient is unsafe discharge until arrangements made by case management Case management for discharge planning Neuropsychiatry evaluated the patient recommended patient may improve with treatment, however indicates avoid benzodiazepines and antipsychotics Continue Prozac 40 mg daily, Depakene 500 mg twice daily and Seroquel 50 mg every 8 hours *Discussed with psychiatry again about patient's cognition issues. He indicated that the patient lacks capacity for signing AMA or to participate in discharge plan. He is recommending that he would invite the ethics committee to the hospital to have a discussion about patient care. * Consulted case management for ethics committee review, awaiting response Multiple traumatic injuries Patient laceration, subdural hemorrhage, ventricular hemorrhage, nasal fracture, C6 fracture, C1-C2 subluxation, C4 transverse process fracture, right rib fracture, L1 transverse process fracture, right pubic rami fracture Continue c-collar this time, however patient does not wear Specialist no longer following patient, patient will require outpatient follow-up if discharge Right breast abscess Physical exam shows improvement. Ultrasound does show complex loculated collection measuring 2.4 x 1.7 x 1.8 cm. Representing breast abscess Start Augmentin 500 mg twice daily for 10 days (end date 10/25/17). Finished Bactrim DS for 18 days Gen. surgery consulted who recommends no intervention at this time, Soft tissue ultrasound shows a improvement of the fluid collection. Hypertension, Amlodipine 5 mg daily DVT prevention Patient ambulating Sequential compression devices while in bed Records were reviewed. Awaiting case management for discharge planning, No change in current treatment plan. Discharge Planning Patient is medically stable for discharge, however due to underlying psychiatric /cognition patient is unsafe discharge until arrangements made by case management. Possible discharge this week. Problem Qualifiers (1) Hypertension: Qualified Codes: I10 - Essential (primary) hypertension Alyssa Means Oct 22, 2017 11:40
[2017-10-22 20:00] VITALS: BP 132/77; PULSE 69; RESP 18; TEMP 98.3; O2SAT 94
[2017-10-23 08:30] VITALS: BP 146/85; PULSE 68; RESP 20; TEMP 98.6; O2SAT 93
--- NOTE | 2017-10-23 09:19 | HHI.PR ---
Subjective Remarks Follow-up on unsafe discharge due to cognition. Patient seen and examined. Lying in bed comfortably, sitter at bedside. Denies any new acute complaints. Slept well. Ambulating well. Eating well. Denies any pain. Intermittent bouts of confusion, no change in clinical status or baseline. VSS. Objective Vitals Vital Signs Date Time Temp Pulse Resp B/P (MAP) Pulse Ox O2 Delivery O2 Flow Rate FiO2 10/23/17 08:30 98.6 68 20 146/85 (105) 93 10/22/17 20:00 98.3 69 18 132/77 (95) 94 I/O 10/22/17 10/22/17 10/22/17 10/23/17 10/23/17 10/23/17 07:00 15:00 23:00 07:00 15:00 23:00 Intake Total 850 ml 280 ml Balance 850 ml 280 ml Intake Oral 850 ml 280 ml # Voids 1 5 2 # Bowel Movements 1 0 Imaging Last Impressions Breast Ultrasound 10/15/17 0000 Signed Impressions: Service Date/Time: Sunday, October 15, 2017 09:06 - CONCLUSION: Persistent subcutaneous collection at the 12:00 position of the right breast. It has slightly decreased in size since the study dated 09/23/2017 and could represent an infectious process. Consider followup to confirm resolution. Jovany Quezada MD Chest X-Ray 09/03/17 0000 Signed Impressions: Service Date/Time: Sunday, September 03, 2017 17:02 - CONCLUSION: 1. Mild edema pattern. Subsegmental basilar airspace disease most characteristic of atelectasis.. Fadi Carolina MD Cervical Spine CT 09/02/17 0000 Signed Impressions: Service Date/Time: August 12:56 - CONCLUSION: Postsurgical changes from anterior cervical plate at C6-7. No evidence of compression deformity or spondylolisthesis. Arun Regan MD Pelvis X-Ray 06/30/17 0000 Signed Impressions: Service Date/Time: Friday, June 30, 2017 12:17 - CONCLUSION: No significant change has occurred. Carlos Capps MD Objective Remarks GENERAL: Well-nourished, well-developed female lying in bed in [facility]. SKIN: Warm and dry. No rash. Right breast abscess improving. Erythema resolved. No drainage. No pain to site. HEENT: Normocephalic. Atraumatic. Pupils equal and round. No scleral icterus. No injection or drainage. No nasal bleeding or discharge. Mucous membranes pink and moist. NECK: Supple. Trachea midline. CARDIOVASCULAR: Regular rate and rhythm. S1, S2 noted. No murmur appreciated. RESPIRATORY: No accessory muscle use. Clear to auscultation. Breath sounds equal bilaterally. GASTROINTESTINAL: Abdomen soft, non-tender, nondistended. Normoactive bowel sounds x4. No guarding noted. MUSCULOSKELETAL: No obvious deformities. Extremities without clubbing, cyanosis , or edema. NEUROLOGICAL: Awake and alert. No obvious cranial nerve deficits. Motor grossly within normal limits. 5/5 muscle strength in bilateral upper and lower extremities. Normal speech. PSYCHIATRIC: Appropriate mood and affect. A/P Problem List: (1) Alcohol dependence in controlled environment ICD Code: F10.20 - Alcohol dependence, uncomplicated Status: Chronic (2) Facial injury ICD Code: S09.93XA - Unspecified injury of face, initial encounter Status: Acute (3) Fall ICD Code: W19.XXXA - Unspecified fall, initial encounter Status: Acute (4) Hypertension ICD Code: I10 - Essential (primary) hypertension Status: Acute (5) Pelvic fracture ICD Code: S32.9XXA - Fracture of unspecified parts of lumbosacral spine and pelvis, initial encounter for closed fracture Status: Acute (6) C1-C2 subluxation ICD Code: S13.120A - Subluxation of C1/C2 cervical vertebrae, initial encounter Status: Acute (7) C6 cervical fracture ICD Code: S12.500A - Unspecified displaced fracture of sixth cervical vertebra , initial encounter for closed fracture Status: Acute (8) Traumatic brain injury ICD Code: S06.9X9A - Unspecified intracranial injury with loss of consciousness of unspecified duration, initial encounter Status: Acute (9) Nasal fracture ICD Code: S02.2XXA - Fracture of nasal bones, initial encounter for closed fracture Status: Acute (10) Mild neurocognitive disorder ICD Code: G31.84 - Mild cognitive impairment, so stated Status: Acute (11) Intracranial bleed ICD Code: I62.9 - Nontraumatic intracranial hemorrhage, unspecified Status: Acute Assessment and Plan Inability to care for self, unsafe discharge due to cognition Initially he was indicated patient cannot walk, patient is walking at this time, PT and OT recommending supervision at home for safety Speech therapy following the patient intermittently for cognitive evaluations. 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 Mini mental state 28/30, recommended avoid antipsychotics for benzodiazepine. Recommending Depakote or carbamazepine Patient is medically stable for discharge, however due to underlying psychiatric/cognition patient is unsafe discharge until arrangements made by case management Case management for discharge planning Neuropsychiatry evaluated the patient recommended patient may improve with treatment, however indicates avoid benzodiazepines and antipsychotics Continue Prozac 40 mg daily, Depakene 500 mg twice daily and Seroquel 50 mg every 8 hours *Discussed with psychiatry again about patient's cognition issues. He indicated that the patient lacks capacity for signing AMA or to participate in discharge plan. He is recommending that he would invite the ethics committee to the hospital to have a discussion about patient care. * Consulted case management for ethics committee review, awaiting response Multiple traumatic injuries Patient laceration, subdural hemorrhage, ventricular hemorrhage, nasal fracture, C6 fracture, C1-C2 subluxation, C4 transverse process fracture, right rib fracture, L1 transverse process fracture, right pubic rami fracture Continue c-collar this time, however patient does not wear Specialist no longer following patient, patient will require outpatient follow-up if discharge Right breast abscess Physical exam shows improvement. Ultrasound does show complex loculated collection measuring 2.4 x 1.7 x 1.8 cm. Representing breast abscess Start Augmentin 500 mg twice daily for 10 days (end date 10/25/17). Finished Bactrim DS for 18 days Gen. surgery consulted who recommends no intervention at this time, Soft tissue ultrasound shows a improvement of the fluid collection. Hypertension, Amlodipine 5 mg daily DVT prevention Patient ambulating Sequential compression devices while in bed Records were reviewed. Awaiting case management for discharge planning, No change in current treatment plan. Discharge Planning Patient is medically stable for discharge, however due to underlying psychiatric /cognition patient is unsafe discharge until arrangements made by case management. Possible discharge this week. Problem Qualifiers (1) Hypertension: Qualified Codes: I10 - Essential (primary) hypertension Alyssa Means Oct 23, 2017 09:19
[2017-10-23] MEDS: QUEtiapine FUMARATE 100 MG TAB PO SCH ×2 (09:23→20:27)
[2017-10-23] MEDS: VALPROIC ACID 250 MG CAP PO SCH ×2 (09:23→20:27)
[2017-10-23] MEDS: AMOXICILLIN/CLAVULANATE K 500 MG TAB PO SCH ×2 (09:23→20:27)
[2017-10-23] MEDS: FLUoxetine HCL 20 MG CAP PO SCH (09:23)
[2017-10-23 21:26] VITALS: BP 141/76; PULSE 70; RESP 18; TEMP 97.9; O2SAT 95
[2017-10-24 07:40] LABS: AUTOMATED NEUTROPHIL # 2.8 TH/MM3 (1.8-7.7); BASOPHIL % 0.6 % (0.0-2.0); EOSINOPHIL # 0.1 TH/MM3 (0-0.4); EOSINOPHIL % 2.3 % (0.0-4.0); HEMATOCRIT 31.3 % (35.0-46.0); HEMOGLOBIN 10.2 GM/DL (11.6-15.3); LYMPHOCYTE # 1.8 TH/MM3 (1.0-4.8); MEAN CORPUSCULAR HEMOGLOBIN 29.9 PG (27.0-34.0); MEAN CORPUSCULAR HGB CONC 32.5 % (32.0-36.0); MEAN PLATELET VOLUME 6.6 FL (7.0-11.0); MONO % 8.7 % (0.0-8.0); MONOCYTE # 0.4 TH/MM3 (0-0.9); NEUT % 53.4 % (16.0-70.0); PLATELET COUNT 187 TH/MM3 (150-450); RED BLOOD COUNT 3.41 MIL/MM3 (4.00-5.30); RED CELL DISTRIBUTION WIDTH 15.1 % (11.6-17.2); WHITE BLOOD COUNT 5.1 TH/MM3 (4.0-11.0)
[2017-10-24 07:42] LABS: BICARBONATE 32.2 MEQ/L (21.0-32.0); CALCIUM 8.5 MG/DL (8.5-10.1)
[2017-10-24 07:46] LABS: CREATININE 0.65 MG/DL (0.50-1.00)
[2017-10-24 08:00] VITALS: BP 129/72; PULSE 60; RESP 16; TEMP 97.9; O2SAT 97
[2017-10-24] MEDS: QUEtiapine FUMARATE 100 MG TAB PO SCH ×2 (09:57→19:45)
[2017-10-24] MEDS: VALPROIC ACID 250 MG CAP PO SCH ×2 (09:58→19:46)
[2017-10-24] MEDS: AMOXICILLIN/CLAVULANATE K 500 MG TAB PO SCH ×2 (09:58→19:45)
[2017-10-24] MEDS: FLUoxetine HCL 20 MG CAP PO SCH (09:58)
--- NOTE | 2017-10-24 11:37 | HHI.PR ---
Subjective Remarks Follow-up on unsafe discharge due to cognition. Patient seen and examined. Sitting up in bed. Awake and alert. Denies any new changes. Eating and drinking well. Denies any pain. No change in clinical condition. Objective Vitals Vital Signs Date Time Temp Pulse Resp B/P (MAP) Pulse Ox O2 Delivery O2 Flow Rate FiO2 10/24/17 08:00 97.9 60 16 129/72 (91) 97 10/23/17 21:26 97.9 70 18 141/76 (97) 95 I/O 10/23/17 10/23/17 10/23/17 10/24/17 10/24/17 10/24/17 07:00 15:00 23:00 07:00 15:00 23:00 Intake Total 280 ml 480 ml 120 ml Balance 280 ml 480 ml 120 ml Intake Oral 280 ml 480 ml 120 ml # Voids 2 2 3 # Bowel Movements 0 Result Diagram: 10/24/1725 10/24/17 0625 Imaging Last Impressions Breast Ultrasound 10/15/17 0000 Signed Impressions: Service Date/Time: Sunday, October 15, 2017 09:06 - CONCLUSION: Persistent subcutaneous collection at the 12:00 position of the right breast. It has slightly decreased in size since the study dated 09/23/2017 and could represent an infectious process. Consider followup to confirm resolution. Jovany Quezada MD Chest X-Ray 09/03/17 0000 Signed Impressions: Service Date/Time: Sunday, September 03, 2017 17:02 - CONCLUSION: 1. Mild edema pattern. Subsegmental basilar airspace disease most characteristic of atelectasis.. Fadi Carolina MD Cervical Spine CT 09/02/17 0000 Signed Impressions: Service Date/Time: August 12:56 - CONCLUSION: Postsurgical changes from anterior cervical plate at C6-7. No evidence of compression deformity or spondylolisthesis. Arun Regan MD Pelvis X-Ray 06/30/17 0000 Signed Impressions: Service Date/Time: Friday, June 30, 2017 12:17 - CONCLUSION: No significant change has occurred. Carlos Capps MD Objective Remarks GENERAL: Well-nourished, well-developed female lying in bed in [facility]. SKIN: Warm and dry. No rash. Right breast abscess improving. Erythema resolved. No drainage. No pain to site. HEENT: Normocephalic. Atraumatic. Pupils equal and round. No scleral icterus. No injection or drainage. No nasal bleeding or discharge. Mucous membranes pink and moist. NECK: Supple. Trachea midline. CARDIOVASCULAR: Regular rate and rhythm. S1, S2 noted. No murmur appreciated. RESPIRATORY: No accessory muscle use. Clear to auscultation. Breath sounds equal bilaterally. GASTROINTESTINAL: Abdomen soft, non-tender, nondistended. Normoactive bowel sounds x4. No guarding noted. MUSCULOSKELETAL: No obvious deformities. Extremities without clubbing, cyanosis , or edema. NEUROLOGICAL: Awake and alert. No obvious cranial nerve deficits. Motor grossly within normal limits. 5/5 muscle strength in bilateral upper and lower extremities. Normal speech. PSYCHIATRIC: Appropriate mood and affect. A/P Problem List: (1) Alcohol dependence in controlled environment ICD Code: F10.20 - Alcohol dependence, uncomplicated Status: Chronic (2) Facial injury ICD Code: S09.93XA - Unspecified injury of face, initial encounter Status: Acute (3) Fall ICD Code: W19.XXXA - Unspecified fall, initial encounter Status: Acute (4) Hypertension ICD Code: I10 - Essential (primary) hypertension Status: Acute (5) Pelvic fracture ICD Code: S32.9XXA - Fracture of unspecified parts of lumbosacral spine and pelvis, initial encounter for closed fracture Status: Acute (6) C1-C2 subluxation ICD Code: S13.120A - Subluxation of C1/C2 cervical vertebrae, initial encounter Status: Acute (7) C6 cervical fracture ICD Code: S12.500A - Unspecified displaced fracture of sixth cervical vertebra , initial encounter for closed fracture Status: Acute (8) Traumatic brain injury ICD Code: S06.9X9A - Unspecified intracranial injury with loss of consciousness of unspecified duration, initial encounter Status: Acute (9) Nasal fracture ICD Code: S02.2XXA - Fracture of nasal bones, initial encounter for closed fracture Status: Acute (10) Mild neurocognitive disorder ICD Code: G31.84 - Mild cognitive impairment, so stated Status: Acute (11) Intracranial bleed ICD Code: I62.9 - Nontraumatic intracranial hemorrhage, unspecified Status: Acute Assessment and Plan Inability to care for self, unsafe discharge due to cognition Initially he was indicated patient cannot walk, patient is walking at this time, PT and OT recommending supervision at home for safety Speech therapy following the patient intermittently for cognitive evaluations. 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 Mini mental state 28/30, recommended avoid antipsychotics for benzodiazepine. Recommending Depakote or carbamazepine Patient is medically stable for discharge, however due to underlying psychiatric/cognition patient is unsafe discharge until arrangements made by case management Case management for discharge planning Neuropsychiatry evaluated the patient recommended patient may improve with treatment, however indicates avoid benzodiazepines and antipsychotics Continue Prozac 40 mg daily, Depakene 500 mg twice daily and Seroquel 50 mg every 8 hours *Discussed with psychiatry again about patient's cognition issues. He indicated that the patient lacks capacity for signing AMA or to participate in discharge plan. He is recommending that he would invite the ethics committee to the hospital to have a discussion about patient care. * Consulted case management for ethics committee review, awaiting response Multiple traumatic injuries Patient laceration, subdural hemorrhage, ventricular hemorrhage, nasal fracture, C6 fracture, C1-C2 subluxation, C4 transverse process fracture, right rib fracture, L1 transverse process fracture, right pubic rami fracture Continue c-collar this time, however patient does not wear Specialist no longer following patient, patient will require outpatient follow-up if discharge Right breast abscess Physical exam shows improvement. Ultrasound does show complex loculated collection measuring 2.4 x 1.7 x 1.8 cm. Representing breast abscess Start Augmentin 500 mg twice daily for 10 days (end date 10/25/17). Finished Bactrim DS for 18 days Gen. surgery consulted who recommends no intervention at this time, Soft tissue ultrasound shows a improvement of the fluid collection. Hypertension, Amlodipine 5 mg daily DVT prevention Patient ambulating Sequential compression devices while in bed Records were reviewed. Awaiting case management for discharge planning, No change in current treatment plan. Discharge Planning Patient is medically stable for discharge, however due to underlying psychiatric /cognition patient is unsafe discharge until arrangements made by case management. Possible discharge this week. Problem Qualifiers (1) Hypertension: Qualified Codes: I10 - Essential (primary) hypertension Alyssa Means Oct 24, 2017 11:37
[2017-10-24 20:00] VITALS: BP 147/74; PULSE 66; RESP 16; TEMP 96.4; O2SAT 93
[2017-10-25 08:00] VITALS: BP 157/82; PULSE 78; RESP 18; TEMP 97; O2SAT 96
[2017-10-25] MEDS: FLUoxetine HCL 20 MG CAP PO SCH (09:35)
[2017-10-25] MEDS: VALPROIC ACID 250 MG CAP PO SCH ×2 (09:35→20:20)
[2017-10-25] MEDS: AMOXICILLIN/CLAVULANATE K 500 MG TAB PO SCH (09:35)
[2017-10-25] MEDS: QUEtiapine FUMARATE 100 MG TAB PO SCH ×2 (09:36→20:19)
--- NOTE | 2017-10-25 10:10 | HHI.PR ---
Subjective Remarks Follow-up on unsafe discharge due to cognition. Patient seen and examined. Lying in bed comfortably sitter at bedside. Denies any new acute complaints. Afebrile. Eating well. Ambulating well. Objective Vitals Vital Signs Date Time Temp Pulse Resp B/P (MAP) Pulse Ox O2 Delivery O2 Flow Rate FiO2 10/25/17 08:00 97.0 78 18 157/82 (107) 96 10/24/17 20:00 96.4 66 16 147/74 (98) 93 I/O 10/24/17 10/24/17 10/24/17 10/25/17 10/25/17 10/25/17 07:00 15:00 23:00 07:00 15:00 23:00 Intake Total 720 ml 240 ml 480 ml Balance 720 ml 240 ml 480 ml Intake Oral 720 ml 240 ml 480 ml # Voids 3 1 1 1 # Bowel Movements 0 0 Result Diagram: 10/24/17 0625 10/24/17 0625 Imaging Last Impressions Breast Ultrasound 10/15/17 0000 Signed Impressions: Service Date/Time: Sunday, October 15, 2017 09:06 - CONCLUSION: Persistent subcutaneous collection at the 12:00 position of the right breast. It has slightly decreased in size since the study dated 09/23/2017 and could represent an infectious process. Consider followup to confirm resolution. Jovany Quezada MD Chest X-Ray 09/03/17 0000 Signed Impressions: Service Date/Time: Sunday, September 03, 2017 17:02 - CONCLUSION: 1. Mild edema pattern. Subsegmental basilar airspace disease most characteristic of atelectasis.. Fadi Carolina MD Cervical Spine CT 09/02/17 0000 Signed Impressions: Service Date/Time: August 12:56 - CONCLUSION: Postsurgical changes from anterior cervical plate at C6-7. No evidence of compression deformity or spondylolisthesis. Arun Regan MD Pelvis X-Ray 06/30/17 0000 Signed Impressions: Service Date/Time: Friday, June 30, 2017 12:17 - CONCLUSION: No significant change has occurred. Carlos Capps MD Objective Remarks GENERAL: Well-nourished, well-developed female lying in bed in [facility]. SKIN: Warm and dry. No rash. Right breast abscess improving. Erythema resolved. No drainage. No pain to site. HEENT: Normocephalic. Atraumatic. Pupils equal and round. No scleral icterus. No injection or drainage. No nasal bleeding or discharge. Mucous membranes pink and moist. NECK: Supple. Trachea midline. CARDIOVASCULAR: Regular rate and rhythm. S1, S2 noted. No murmur appreciated. RESPIRATORY: No accessory muscle use. Clear to auscultation. Breath sounds equal bilaterally. GASTROINTESTINAL: Abdomen soft, non-tender, nondistended. Normoactive bowel sounds x4. No guarding noted. MUSCULOSKELETAL: No obvious deformities. Extremities without clubbing, cyanosis , or edema. NEUROLOGICAL: Awake and alert. No obvious cranial nerve deficits. Motor grossly within normal limits. 5/5 muscle strength in bilateral upper and lower extremities. Normal speech. PSYCHIATRIC: Appropriate mood and affect. A/P Problem List: (1) Alcohol dependence in controlled environment ICD Code: F10.20 - Alcohol dependence, uncomplicated Status: Chronic (2) Facial injury ICD Code: S09.93XA - Unspecified injury of face, initial encounter Status: Acute (3) Fall ICD Code: W19.XXXA - Unspecified fall, initial encounter Status: Acute (4) Hypertension ICD Code: I10 - Essential (primary) hypertension Status: Acute (5) Pelvic fracture ICD Code: S32.9XXA - Fracture of unspecified parts of lumbosacral spine and pelvis, initial encounter for closed fracture Status: Acute (6) C1-C2 subluxation ICD Code: S13.120A - Subluxation of C1/C2 cervical vertebrae, initial encounter Status: Acute (7) C6 cervical fracture ICD Code: S12.500A - Unspecified displaced fracture of sixth cervical vertebra , initial encounter for closed fracture Status: Acute (8) Traumatic brain injury ICD Code: S06.9X9A - Unspecified intracranial injury with loss of consciousness of unspecified duration, initial encounter Status: Acute (9) Nasal fracture ICD Code: S02.2XXA - Fracture of nasal bones, initial encounter for closed fracture Status: Acute (10) Mild neurocognitive disorder ICD Code: G31.84 - Mild cognitive impairment, so stated Status: Acute (11) Intracranial bleed ICD Code: I62.9 - Nontraumatic intracranial hemorrhage, unspecified Status: Acute Assessment and Plan Inability to care for self, unsafe discharge due to cognition Initially he was indicated patient cannot walk, patient is walking at this time, PT and OT recommending supervision at home for safety Speech therapy following the patient intermittently for cognitive evaluations. 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 Mini mental state 28/30, recommended avoid antipsychotics for benzodiazepine. Recommending Depakote or carbamazepine Patient is medically stable for discharge, however due to underlying psychiatric/cognition patient is unsafe discharge until arrangements made by case management Case management for discharge planning Neuropsychiatry evaluated the patient recommended patient may improve with treatment, however indicates avoid benzodiazepines and antipsychotics Continue Prozac 40 mg daily, Depakene 500 mg twice daily and Seroquel 50 mg every 8 hours *Discussed with psychiatry again about patient's cognition issues. He indicated that the patient lacks capacity for signing AMA or to participate in discharge plan. He is recommending that he would invite the ethics committee to the hospital to have a discussion about patient care. * Consulted case management for ethics committee review, awaiting response Multiple traumatic injuries Patient laceration, subdural hemorrhage, ventricular hemorrhage, nasal fracture, C6 fracture, C1-C2 subluxation, C4 transverse process fracture, right rib fracture, L1 transverse process fracture, right pubic rami fracture Continue c-collar this time, however patient does not wear Specialist no longer following patient, patient will require outpatient follow-up if discharge Right breast abscess Physical exam shows improvement. Ultrasound does show complex loculated collection measuring 2.4 x 1.7 x 1.8 cm. Representing breast abscess Start Augmentin 500 mg twice daily for 10 days (end date 10/25/17). Finished Bactrim DS for 18 days Gen. surgery consulted who recommends no intervention at this time, Soft tissue ultrasound shows a improvement of the fluid collection. Hypertension, Amlodipine 5 mg daily DVT prevention Patient ambulating Sequential compression devices while in bed Records were reviewed. Awaiting case management for discharge planning, No change in current treatment plan. Discharge Planning Patient is medically stable for discharge, however due to underlying psychiatric /cognition patient is unsafe discharge until arrangements made by case management. Possible discharge this week. Problem Qualifiers (1) Hypertension: Qualified Codes: I10 - Essential (primary) hypertension Alyssa Means Oct 25, 2017 10:10
[2017-10-25 20:00] VITALS: BP 123/72; PULSE 73; RESP 16; TEMP 96.9; O2SAT 92
[2017-10-26 08:00] VITALS: BP 148/85; PULSE 63; RESP 17; TEMP 97.5; O2SAT 94
[2017-10-26] MEDS: FLUoxetine HCL 20 MG CAP PO SCH (10:35)
[2017-10-26] MEDS: QUEtiapine FUMARATE 100 MG TAB PO SCH ×2 (10:36→20:21)
[2017-10-26] MEDS: VALPROIC ACID 250 MG CAP PO SCH ×2 (10:36→20:21)
[2017-10-26] MEDS: ACETAMINOPHEN 325 MG TAB PO PRN (10:36)
--- NOTE | 2017-10-26 12:18 | HHI.PR ---
Subjective Remarks Patient seen and examined in follow-up on unsafe discharge due to cognition. Patient doing well. Denies any new complaints. Patient very eager to be discharged. Vital signs are stable. Afebrile. Awaiting case management for discharge planning Objective Vitals Vital Signs Date Time Temp Pulse Resp B/P (MAP) Pulse Ox O2 Delivery O2 Flow Rate FiO2 10/26/17 08:00 97.5 63 17 148/85 (106) 94 10/25/17 20:00 96.9 73 16 123/72 (89) 92 I/O 10/25/17 10/25/17 10/25/17 10/26/17 10/26/17 10/26/17 07:00 15:00 23:00 07:00 15:00 23:00 Intake Total 480 ml 950 ml 100 ml 280 ml Balance 480 ml 950 ml 100 ml 280 ml Intake Oral 480 ml 950 ml 100 ml 280 ml # Voids 1 4 1 # Bowel Movements 0 0 Result Diagram: 10/24/1762410/24/17624 Objective Remarks GENERAL: Well-developed, well-nourished, in no acute distress. alert and orientated waxes and wanes daily HEENT: Head is normocephalic without any lesions or masses noted. Facial features are symmetric. Eyes: Extraocular muscles are intact. Conjunctivae were clear. NECK: C-collar in on table at bedside CARDIAC: Regular rhythm, regular rate. S1/S2 are heard. No murmurs gallops or rubs. LUNGS: Clear to auscultation bilaterally. No wheeze, rhonchi or rales. No use of accessory muscles on inspiration or expiration. ABDOMEN: Soft, nontender. Nondistended. Bowel sounds heard in all 4 quadrants. No organomegaly or masses. Negative rebound, negative guarding EXTREMITIES: No edema, pulses are equal bilaterally. No cyanosis or clubbing NEUROLOGY: Mood and affect appear appropriate. Cranial nerves II through XII grossly intact moving all extremities, speech is clear Urinary Catheter: No Vascular Central Line Catheter: No A/P Assessment and Plan Inability to care for self, unsafe discharge due to cognition Initially he was indicated patient cannot walk, patient is walking at this time, PT and OT recommending supervision at home for safety Speech therapy following the patient intermittently for cognitive evaluations. 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 MIni mental state 28/30, recommended avoid antipsychotics for benzodiazepine. Recommending Depakote or carbamazepine Patient is medically stable for discharge, however due to underlying psychiatric/cognition patient is unsafe discharge until arrangements made by case management Case management for discharge planning Neuropsychiatry evaluated the patient recommended patient may improve with treatment, however indicates avoid benzodiazepines and antipsychotics Continue Prozac 40 mg daily Depakene 500 mg twice daily Seroquel 100 mg twice daily *Discussed with psychiatry again about patient's cognition issues. He indicated that the patient lacks capacity for signing AMA or to participate in discharge plan. He is recommending that he would invite the ethics committee to the hospital to have a discussion about patient care *Consulted case management for ethics committee review, awaiting response Multiple traumatic injuries, Patient laceration, subdural hemorrhage, ventricular hemorrhage, nasal fracture, C6 fracture, C1-C2 subluxation, C4 transverse process fracture, right rib fracture, L1 transverse process fracture, right pubic rami fracture Continue c-collar this time, however patient does not wear Specialist no longer following patient, patient will require outpatient follow-up if discharge Right breast abscess Physical exam patient does have a erythematous area with drainage Ultrasound does show complex loculated collection measuring 2.4 x 1.7 x 1.8 cm. Representing breast abscess Status post Augmentin 500 mg twice daily for 10 days., Bactrim DS for 18 days Gen. surgery consulted who recommends no intervention at this time, Soft tissue ultrasound shows a improvement of the fluid collection. Hypertension, Amlodipine 10 mg daily Add lisinopril 5 mg daily DVT prevention Patient ambulating Sequential compression devices while in bed Discharge Planning Case management for discharge planning, was notified that patient might be discharging this week if accepted at local skilled facility Conrado Mariee Oct 26, 2017 12:18
[2017-10-26] MEDS: LISINOPRIL 5 MG TAB PO SCH (14:53)
[2017-10-26 20:00] VITALS: BP 119/74; PULSE 63; RESP 18; TEMP 97.9; O2SAT 93
[2017-10-27 08:00] VITALS: BP 159/93; PULSE 112; RESP 14; TEMP 97.2; O2SAT 93
[2017-10-27] MEDS: LISINOPRIL 5 MG TAB PO SCH (08:47)
[2017-10-27] MEDS: FLUoxetine HCL 20 MG CAP PO SCH (08:47)
[2017-10-27] MEDS: QUEtiapine FUMARATE 100 MG TAB PO SCH ×2 (08:47→20:52)
[2017-10-27] MEDS: VALPROIC ACID 250 MG CAP PO SCH ×2 (08:47→20:51)
--- NOTE | 2017-10-27 12:36 | HHI.PR ---
Subjective Remarks Patient seen and examined today for follow-up on unsafe discharge due to cognition. Patient denies any new complaints. Very eager to go home. Awaiting case management for discharge planning. Objective Vitals Vital Signs Date Time Temp Pulse Resp B/P (MAP) Pulse Ox O2 Delivery O2 Flow Rate FiO2 10/27/17 08:00 97.2 112 14 159/93 (115) 93 10/26/17 20:00 97.9 63 18 119/74 (89) 93 10/26/17 12:42 18 I/O 10/26/17 10/26/17 10/26/17 10/27/17 10/27/17 10/27/17 07:00 15:00 23:00 07:00 15:00 23:00 Intake Total 280 ml 1000 ml 360 ml 222 ml Balance 280 ml 1000 ml 360 ml 222 ml Intake Oral 280 ml 1000 ml 360 ml 222 ml # Voids 1 4 2 # Bowel Movements 0 1 0 Result Diagram: 10/24/1762410/24/17624 Objective Remarks GENERAL: Well-developed, well-nourished, in no acute distress. alert and orientated waxes and wanes daily HEENT: Head is normocephalic without any lesions or masses noted. Facial features are symmetric. Eyes: Extraocular muscles are intact. Conjunctivae were clear. NECK: C-collar in on table at bedside CARDIAC: Regular rhythm, regular rate. S1/S2 are heard. No murmurs gallops or rubs. LUNGS: Clear to auscultation bilaterally. No wheeze, rhonchi or rales. No use of accessory muscles on inspiration or expiration. ABDOMEN: Soft, nontender. Nondistended. Bowel sounds heard in all 4 quadrants. No organomegaly or masses. Negative rebound, negative guarding EXTREMITIES: No edema, pulses are equal bilaterally. No cyanosis or clubbing NEUROLOGY: Mood and affect appear appropriate. Cranial nerves II through XII grossly intact moving all extremities, speech is clear Urinary Catheter: No Vascular Central Line Catheter: No A/P Assessment and Plan Inability to care for self, unsafe discharge due to cognition Initially he was indicated patient cannot walk, patient is walking at this time, PT and OT recommending supervision at home for safety Speech therapy following the patient intermittently for cognitive evaluations. 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 MIni mental state 28/30, recommended avoid antipsychotics for benzodiazepine. Recommending Depakote or carbamazepine Patient is medically stable for discharge, however due to underlying psychiatric/cognition patient is unsafe discharge until arrangements made by case management Case management for discharge planning Neuropsychiatry evaluated the patient recommended patient may improve with treatment, however indicates avoid benzodiazepines and antipsychotics Continue Prozac 40 mg daily Depakene 500 mg twice daily Seroquel 100 mg twice daily *Discussed with psychiatry again about patient's cognition issues. He indicated that the patient lacks capacity for signing AMA or to participate in discharge plan. He is recommending that he would invite the ethics committee to the hospital to have a discussion about patient care *Consulted case management for ethics committee review, awaiting response Multiple traumatic injuries, Patient laceration, subdural hemorrhage, ventricular hemorrhage, nasal fracture, C6 fracture, C1-C2 subluxation, C4 transverse process fracture, right rib fracture, L1 transverse process fracture, right pubic rami fracture Continue c-collar this time, however patient does not wear Specialist no longer following patient, patient will require outpatient follow-up if discharge Right breast abscess Physical exam patient does have a erythematous area with drainage Ultrasound does show complex loculated collection measuring 2.4 x 1.7 x 1.8 cm. Representing breast abscess Status post Augmentin 500 mg twice daily for 10 days., Bactrim DS for 18 days Gen. surgery consulted who recommends no intervention at this time, Soft tissue ultrasound shows a improvement of the fluid collection. Hypertension, Amlodipine 10 mg daily lisinopril 5 mg daily DVT prevention Patient ambulating Sequential compression devices while in bed Records were reviewed. No change in current treatment plan. Awaiting case management for discharge planning. Discharge Planning Case management for discharge planning, was notified that patient might be discharging this week if accepted at local skilled facility Conrado Mariee Oct 27, 2017 12:36
[2017-10-27 20:00] VITALS: BP 120/82; PULSE 69; RESP 20; TEMP 96.9; O2SAT 95
[2017-10-27] MEDS: ACETAMINOPHEN 325 MG TAB PO PRN (20:57)
--- NOTE | 2017-10-28 08:46 | HHI.PR ---
Subjective Remarks Patient seen and examined today for follow-up on unsafe discharge due to cognition. Patient lying in bed carefully. No new complaints. No change in clinical status. Awaiting case management for discharge planning Objective Vitals Vital Signs Date Time Temp Pulse Resp B/P (MAP) Pulse Ox O2 Delivery O2 Flow Rate FiO2 10/27/17 20:00 96.9 69 20 120/82 (95) 95 I/O 10/27/17 10/27/17 10/27/17 10/28/17 10/28/17 10/28/17 07:00 15:00 23:00 07:00 15:00 23:00 Intake Total 360 ml 322 ml Balance 360 ml 322 ml Intake Oral 360 ml 322 ml # Voids 2 4 # Bowel Movements 0 0 Result Diagram: 10/24/1762410/24/17624 Objective Remarks GENERAL: Well-developed, well-nourished, in no acute distress. alert and orientated waxes and wanes daily HEENT: Head is normocephalic without any lesions or masses noted. Facial features are symmetric. Eyes: Extraocular muscles are intact. Conjunctivae were clear. NECK: C-collar in on table at bedside CARDIAC: Regular rhythm, regular rate. S1/S2 are heard. No murmurs gallops or rubs. LUNGS: Clear to auscultation bilaterally. No wheeze, rhonchi or rales. No use of accessory muscles on inspiration or expiration. ABDOMEN: Soft, nontender. Nondistended. Bowel sounds heard in all 4 quadrants. No organomegaly or masses. Negative rebound, negative guarding EXTREMITIES: No edema, pulses are equal bilaterally. No cyanosis or clubbing NEUROLOGY: Mood and affect appear appropriate. Cranial nerves II through XII grossly intact moving all extremities, speech is clear Urinary Catheter: No Vascular Central Line Catheter: No A/P Assessment and Plan Inability to care for self, unsafe discharge due to cognition Initially he was indicated patient cannot walk, patient is walking at this time, PT and OT recommending supervision at home for safety Speech therapy following the patient intermittently for cognitive evaluations. 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 MIni mental state 28/30, recommended avoid antipsychotics and benzodiazepine. Recommending Depakote or carbamazepine Patient is medically stable for discharge, however due to underlying psychiatric/cognition patient is unsafe discharge until arrangements made by case management Case management for discharge planning Neuropsychiatry evaluated the patient recommended patient may improve with treatment, however indicates avoid benzodiazepines and antipsychotics Continue Prozac 40 mg daily Depakene 500 mg twice daily Seroquel 100 mg twice daily *Discussed with psychiatry again about patient's cognition issues. He indicated that the patient lacks capacity for signing AMA or to participate in discharge plan. He is recommending that he would invite the ethics committee to the hospital to have a discussion about patient care *Consulted case management for ethics committee review, awaiting response Multiple traumatic injuries, Patient laceration, subdural hemorrhage, ventricular hemorrhage, nasal fracture, C6 fracture, C1-C2 subluxation, C4 transverse process fracture, right rib fracture, L1 transverse process fracture, right pubic rami fracture Continue c-collar this time, however patient does not wear Specialist no longer following patient, patient will require outpatient follow-up if discharge Right breast abscess, improved Physical exam patient does have a erythematous area with drainage Ultrasound does show complex loculated collection measuring 2.4 x 1.7 x 1.8 cm. Representing breast abscess Status post Augmentin 500 mg twice daily for 10 days., Bactrim DS for 18 days Gen. surgery consulted who recommends no intervention at this time, Soft tissue ultrasound shows a improvement of the fluid collection. Hypertension, Amlodipine 10 mg daily lisinopril 5 mg daily DVT prevention Patient ambulating Sequential compression devices while in bed Records were reviewed. Awaiting case management for discharge planning. No change in current treatment plan. Discharge Planning Case management for discharge planning, was notified that patient might be discharging this week if accepted at local skilled facility Conrado Mariee Oct 28, 2017 08:46
[2017-10-28 09:30] VITALS: BP 124/84; PULSE 66; RESP 16; TEMP 96.8; O2SAT 99
[2017-10-28] MEDS: VALPROIC ACID 250 MG CAP PO SCH ×2 (10:47→21:00)
[2017-10-28] MEDS: FLUoxetine HCL 20 MG CAP PO SCH (10:47)
[2017-10-28] MEDS: QUEtiapine FUMARATE 100 MG TAB PO SCH ×2 (10:47→21:00)
[2017-10-28] MEDS: LISINOPRIL 5 MG TAB PO SCH (10:47)
[2017-10-28] MEDS: ACETAMINOPHEN 325 MG TAB PO PRN ×2 (10:48→21:30)
[2017-10-28 20:00] VITALS: BP 123/67; PULSE 67; RESP 16; TEMP 98; O2SAT 95
[2017-10-29 08:00] VITALS: BP 142/85; PULSE 60; RESP 18; TEMP 97.3; O2SAT 92
--- NOTE | 2017-10-29 08:00 | HHI.PR ---
Subjective Remarks Patient seen and examined today for follow-up on unsafe discharge due to cognition. Patient denies any new complaints today. No change in clinical status. Awaiting case management for discharge planning Objective Vitals Vital Signs Date Time Temp Pulse Resp B/P (MAP) Pulse Ox O2 Delivery O2 Flow Rate FiO2 10/28/17 20:00 98.0 67 16 123/67 (85) 95 10/28/17 12:39 20 10/28/17 09:30 96.8 66 16 124/84 (97) 99 I/O 10/28/17 10/28/17 10/28/17 10/29/17 10/29/17 10/29/17 07:00 15:00 23:00 07:00 15:00 23:00 Intake Total 400 ml 1460 ml 580 ml Balance 400 ml 1460 ml 580 ml Intake Oral 400 ml 1460 ml 580 ml # Voids 3 5 2 # Bowel Movements 2 0 0 Objective Remarks GENERAL: Well-developed, well-nourished, in no acute distress. alert and orientated waxes and wanes daily HEENT: Head is normocephalic without any lesions or masses noted. Facial features are symmetric. Eyes: Extraocular muscles are intact. Conjunctivae were clear. NECK: C-collar in on table at bedside CARDIAC: Regular rhythm, regular rate. S1/S2 are heard. No murmurs gallops or rubs. LUNGS: Clear to auscultation bilaterally. No wheeze, rhonchi or rales. No use of accessory muscles on inspiration or expiration. ABDOMEN: Soft, nontender. Nondistended. Bowel sounds heard in all 4 quadrants. No organomegaly or masses. Negative rebound, negative guarding EXTREMITIES: No edema, pulses are equal bilaterally. No cyanosis or clubbing NEUROLOGY: Mood and affect appear appropriate. Cranial nerves II through XII grossly intact moving all extremities, speech is clear Urinary Catheter: No Vascular Central Line Catheter: No A/P Assessment and Plan Inability to care for self, unsafe discharge due to cognition Initially he was indicated patient cannot walk, patient is walking at this time, PT and OT recommending supervision at home for safety Speech therapy following the patient intermittently for cognitive evaluations. 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 MIni mental state 28/30, recommended avoid antipsychotics and benzodiazepine. Recommending Depakote or carbamazepine Patient is medically stable for discharge, however due to underlying psychiatric/cognition patient is unsafe discharge until arrangements made by case management Case management for discharge planning Neuropsychiatry evaluated the patient recommended patient may improve with treatment, however indicates avoid benzodiazepines and antipsychotics Continue Prozac 40 mg daily Depakene 500 mg twice daily Seroquel 100 mg twice daily *Discussed with psychiatry again about patient's cognition issues. He indicated that the patient lacks capacity for signing AMA or to participate in discharge plan. He is recommending that he would invite the ethics committee to the hospital to have a discussion about patient care *Consulted case management for ethics committee review, awaiting response Multiple traumatic injuries, Patient laceration, subdural hemorrhage, ventricular hemorrhage, nasal fracture, C6 fracture, C1-C2 subluxation, C4 transverse process fracture, right rib fracture, L1 transverse process fracture, right pubic rami fracture Continue c-collar this time, however patient does not wear Specialist no longer following patient, patient will require outpatient follow-up if discharge Right breast abscess, improved Physical exam patient does have a erythematous area with drainage Ultrasound does show complex loculated collection measuring 2.4 x 1.7 x 1.8 cm. Representing breast abscess Status post Augmentin 500 mg twice daily for 10 days., Bactrim DS for 18 days Gen. surgery consulted who recommends no intervention at this time, Soft tissue ultrasound shows a improvement of the fluid collection. Hypertension, Amlodipine 10 mg daily lisinopril 5 mg daily DVT prevention Patient ambulating Sequential compression devices while in bed Records were reviewed. No change in current treatment plan. Awaiting case management for discharge planning. Discharge Planning Case management for discharge planning, was notified that patient might be discharging this week if accepted at local skilled facility Conrado Mariee Oct 29, 2017 08:00
[2017-10-29] MEDS: VALPROIC ACID 250 MG CAP PO SCH ×2 (11:05→21:01)
[2017-10-29] MEDS: FLUoxetine HCL 20 MG CAP PO SCH (11:05)
[2017-10-29] MEDS: LISINOPRIL 5 MG TAB PO SCH (11:06)
[2017-10-29] MEDS: QUEtiapine FUMARATE 100 MG TAB PO SCH ×2 (11:06→21:01)
[2017-10-29] MEDS: ACETAMINOPHEN 325 MG TAB PO PRN (11:06)
[2017-10-29 20:00] VITALS: BP 123/70; PULSE 63; RESP 16; TEMP 97.3; O2SAT 94
[2017-10-30 08:00] VITALS: BP 170/95; PULSE 58; RESP 14; TEMP 97.2; O2SAT 93
[2017-10-30] MEDS: LISINOPRIL 5 MG TAB PO SCH (09:00)
--- NOTE | 2017-10-30 09:47 | HHI.PR ---
Subjective Remarks Patient seen and examined today for follow-up on unsafe discharge due to cognition. Patient denies any new complaints. No change in clinical status. Awaiting case management for discharge planning. Objective Vitals Vital Signs Date Time Temp Pulse Resp B/P (MAP) Pulse Ox O2 Delivery O2 Flow Rate FiO2 10/29/17 20:00 97.3 63 16 123/70 (87) 94 10/29/17 13:19 18 I/O 10/29/17 10/29/17 10/29/17 10/30/17 10/30/17 10/30/17 07:00 15:00 23:00 07:00 15:00 23:00 Intake Total 580 ml 480 ml 480 ml Balance 580 ml 480 ml 480 ml Intake Oral 580 ml 480 ml 480 ml # Voids 2 3 2 # Bowel Movements 0 2 0 Objective Remarks GENERAL: Well-developed, well-nourished, in no acute distress. alert and orientated waxes and wanes daily HEENT: Head is normocephalic without any lesions or masses noted. Facial features are symmetric. Eyes: Extraocular muscles are intact. Conjunctivae were clear. NECK: C-collar in on table at bedside CARDIAC: Regular rhythm, regular rate. S1/S2 are heard. No murmurs gallops or rubs. LUNGS: Clear to auscultation bilaterally. No wheeze, rhonchi or rales. No use of accessory muscles on inspiration or expiration. ABDOMEN: Soft, nontender. Nondistended. Bowel sounds heard in all 4 quadrants. No organomegaly or masses. Negative rebound, negative guarding EXTREMITIES: No edema, pulses are equal bilaterally. No cyanosis or clubbing NEUROLOGY: Mood and affect appear appropriate. Cranial nerves II through XII grossly intact moving all extremities, speech is clear Urinary Catheter: No Vascular Central Line Catheter: No A/P Assessment and Plan Inability to care for self, unsafe discharge due to cognition Initially he was indicated patient cannot walk, patient is walking at this time, PT and OT recommending supervision at home for safety Speech therapy following the patient intermittently for cognitive evaluations. 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 MIni mental state 28/30, recommended avoid antipsychotics and benzodiazepine. Recommending Depakote or carbamazepine Patient is medically stable for discharge, however due to underlying psychiatric/cognition patient is unsafe discharge until arrangements made by case management Case management for discharge planning Neuropsychiatry evaluated the patient recommended patient may improve with treatment, however indicates avoid benzodiazepines and antipsychotics Continue Prozac 40 mg daily Depakene 500 mg twice daily Seroquel 100 mg twice daily *Discussed with psychiatry again about patient's cognition issues. He indicated that the patient lacks capacity for signing AMA or to participate in discharge plan. He is recommending that he would invite the ethics committee to the hospital to have a discussion about patient care *Consulted case management for ethics committee review, awaiting response Multiple traumatic injuries, Patient laceration, subdural hemorrhage, ventricular hemorrhage, nasal fracture, C6 fracture, C1-C2 subluxation, C4 transverse process fracture, right rib fracture, L1 transverse process fracture, right pubic rami fracture Continue c-collar this time, however patient does not wear Specialist no longer following patient, patient will require outpatient follow-up if discharge Right breast abscess, improved Physical exam patient does have a erythematous area with drainage Ultrasound does show complex loculated collection measuring 2.4 x 1.7 x 1.8 cm. Representing breast abscess Status post Augmentin 500 mg twice daily for 10 days., Bactrim DS for 18 days Gen. surgery consulted who recommends no intervention at this time, Soft tissue ultrasound shows a improvement of the fluid collection. Hypertension, Amlodipine 10 mg daily lisinopril 5 mg daily DVT prevention Patient ambulating Sequential compression devices while in bed Records were reviewed. Awaiting case management for discharge planning. No change in current treatment plan. Discharge Planning Case management for discharge planning, was notified that patient might be discharging this week if accepted at local skilled facility Conrado Mariee Oct 30, 2017 09:47
[2017-10-30] MEDS: FLUoxetine HCL 20 MG CAP PO SCH (11:27)
[2017-10-30] MEDS: VALPROIC ACID 250 MG CAP PO SCH ×2 (11:28→20:23)
[2017-10-30] MEDS: QUEtiapine FUMARATE 100 MG TAB PO SCH ×2 (11:33→20:23)
[2017-10-30 19:00] VITALS: BP 123/84; PULSE 70; RESP 16; TEMP 98.4; O2SAT 95
[2017-10-31 08:00] VITALS: BP 147/90; PULSE 66; RESP 18; TEMP 97.3; O2SAT 94
--- NOTE | 2017-10-31 08:56 | HHI.PR ---
Subjective Remarks Patient seen and examined today for follow-up on unsafe discharge due to cognition. Patient doing quite well. Denies any new complaints. No change in clinical status. Objective Vitals Vital Signs Date Time Temp Pulse Resp B/P (MAP) Pulse Ox O2 Delivery O2 Flow Rate FiO2 10/30/17 19:00 98.4 70 16 123/84 (97) 95 I/O 10/30/17 10/30/17 10/30/17 10/31/17 10/31/17 10/31/17 07:00 15:00 23:00 07:00 15:00 23:00 Intake Total 480 ml 444 ml 200 ml 100 ml Balance 480 ml 444 ml 200 ml 100 ml Intake Oral 480 ml 444 ml 200 ml 100 ml # Voids 2 1 # Bowel Movements 0 Objective Remarks GENERAL: Well-developed, well-nourished, in no acute distress. alert and orientated waxes and wanes daily HEENT: Head is normocephalic without any lesions or masses noted. Facial features are symmetric. Eyes: Extraocular muscles are intact. Conjunctivae were clear. NECK: C-collar in on table at bedside CARDIAC: Regular rhythm, regular rate. S1/S2 are heard. No murmurs gallops or rubs. LUNGS: Clear to auscultation bilaterally. No wheeze, rhonchi or rales. No use of accessory muscles on inspiration or expiration. ABDOMEN: Soft, nontender. Nondistended. Bowel sounds heard in all 4 quadrants. No organomegaly or masses. Negative rebound, negative guarding EXTREMITIES: No edema, pulses are equal bilaterally. No cyanosis or clubbing NEUROLOGY: Mood and affect appear appropriate. Cranial nerves II through XII grossly intact moving all extremities, speech is clear Urinary Catheter: No Vascular Central Line Catheter: No A/P Assessment and Plan Inability to care for self, unsafe discharge due to cognition Initially he was indicated patient cannot walk, patient is walking at this time, PT and OT recommending supervision at home for safety Speech therapy following the patient intermittently for cognitive evaluations. 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 MIni mental state 28/30, recommended avoid antipsychotics and benzodiazepine. Recommending Depakote or carbamazepine Patient is medically stable for discharge, however due to underlying psychiatric/cognition patient is unsafe discharge until arrangements made by case management Case management for discharge planning Neuropsychiatry evaluated the patient recommended patient may improve with treatment, however indicates avoid benzodiazepines and antipsychotics Continue Prozac 40 mg daily Depakene 500 mg twice daily Seroquel 100 mg twice daily *Discussed with psychiatry again about patient's cognition issues. He indicated that the patient lacks capacity for signing AMA or to participate in discharge plan. He is recommending that he would invite the ethics committee to the hospital to have a discussion about patient care *Consulted case management for ethics committee review, awaiting response Multiple traumatic injuries, Patient laceration, subdural hemorrhage, ventricular hemorrhage, nasal fracture, C6 fracture, C1-C2 subluxation, C4 transverse process fracture, right rib fracture, L1 transverse process fracture, right pubic rami fracture Continue c-collar this time, however patient does not wear Specialist no longer following patient, patient will require outpatient follow-up if discharge Right breast abscess, improved Physical exam patient does have a erythematous area with drainage Ultrasound does show complex loculated collection measuring 2.4 x 1.7 x 1.8 cm. Representing breast abscess Status post Augmentin 500 mg twice daily for 10 days., Bactrim DS for 18 days Gen. surgery consulted who recommends no intervention at this time, Soft tissue ultrasound shows a improvement of the fluid collection. Hypertension, Amlodipine 10 mg daily lisinopril 5 mg daily DVT prevention Patient ambulating Sequential compression devices while in bed Records were reviewed. No change in current treatment plan. Awaiting case management for discharge planning. Discharge Planning Case management for discharge planning, was notified that patient might be discharging this week if accepted at local skilled facility Conrado Mariee Oct 31, 2017 08:56
[2017-10-31] MEDS: FLUoxetine HCL 20 MG CAP PO SCH (09:34)
[2017-10-31] MEDS: QUEtiapine FUMARATE 100 MG TAB PO SCH ×2 (09:34→20:55)
[2017-10-31] MEDS: LISINOPRIL 5 MG TAB PO SCH (09:34)
[2017-10-31] MEDS: VALPROIC ACID 250 MG CAP PO SCH ×2 (09:38→20:55)
[2017-10-31 21:04] VITALS: BP 138/77; PULSE 69; RESP 18; TEMP 96; O2SAT 96
--- NOTE | 2017-11-01 08:20 | HHI.PR ---
Subjective Remarks Patient seen and examined today for follow-up on unsafe discharge due to cognition. Denies any new complaints. No change in clinical status. Afebrile Objective Vitals Vital Signs Date Time Temp Pulse Resp B/P (MAP) Pulse Ox O2 Delivery O2 Flow Rate FiO2 10/31/17 21:04 96.0 69 18 138/77 (97) 96 I/O 10/31/17 10/31/17 10/31/17 11/01/17 11/01/17 11/01/17 07:00 15:00 23:00 07:00 15:00 23:00 Intake Total 100 ml 850 ml 480 ml Balance 100 ml 850 ml 480 ml Intake Oral 100 ml 850 ml 480 ml # Voids 1 4 5 2 # Bowel Movements 0 Objective Remarks GENERAL: Well-developed, well-nourished, in no acute distress. alert and orientated waxes and wanes daily HEENT: Head is normocephalic without any lesions or masses noted. Facial features are symmetric. Eyes: Extraocular muscles are intact. Conjunctivae were clear. NECK: C-collar in on table at bedside CARDIAC: Regular rhythm, regular rate. S1/S2 are heard. No murmurs gallops or rubs. LUNGS: Clear to auscultation bilaterally. No wheeze, rhonchi or rales. No use of accessory muscles on inspiration or expiration. ABDOMEN: Soft, nontender. Nondistended. Bowel sounds heard in all 4 quadrants. No organomegaly or masses. Negative rebound, negative guarding EXTREMITIES: No edema, pulses are equal bilaterally. No cyanosis or clubbing NEUROLOGY: Mood and affect appear appropriate. Cranial nerves II through XII grossly intact moving all extremities, speech is clear Urinary Catheter: No Vascular Central Line Catheter: No A/P Assessment and Plan Inability to care for self, unsafe discharge due to cognition Initially he was indicated patient cannot walk, patient is walking at this time, PT and OT recommending supervision at home for safety Speech therapy following the patient intermittently for cognitive evaluations. 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 MIni mental state 28/30, recommended avoid antipsychotics and benzodiazepine. Recommending Depakote or carbamazepine Patient is medically stable for discharge, however due to underlying psychiatric/cognition patient is unsafe discharge until arrangements made by case management Case management for discharge planning Neuropsychiatry evaluated the patient recommended patient may improve with treatment, however indicates avoid benzodiazepines and antipsychotics Continue Prozac 40 mg daily Depakene 500 mg twice daily Seroquel 100 mg twice daily *Discussed with psychiatry again about patient's cognition issues. He indicated that the patient lacks capacity for signing AMA or to participate in discharge plan. He is recommending that he would invite the ethics committee to the hospital to have a discussion about patient care *Consulted case management for ethics committee review, awaiting response Multiple traumatic injuries, Patient laceration, subdural hemorrhage, ventricular hemorrhage, nasal fracture, C6 fracture, C1-C2 subluxation, C4 transverse process fracture, right rib fracture, L1 transverse process fracture, right pubic rami fracture Continue c-collar this time, however patient does not wear Specialist no longer following patient, patient will require outpatient follow-up if discharge Right breast abscess, improved Physical exam patient does have a erythematous area with drainage Ultrasound does show complex loculated collection measuring 2.4 x 1.7 x 1.8 cm. Representing breast abscess Status post Augmentin 500 mg twice daily for 10 days., Bactrim DS for 18 days Gen. surgery consulted who recommends no intervention at this time, Soft tissue ultrasound shows a improvement of the fluid collection. Hypertension, Amlodipine 10 mg daily lisinopril 10 mg daily DVT prevention Patient ambulating Sequential compression devices while in bed Records were reviewed. Awaiting case management for discharge planning. No change in current treatment plan. Discharge Planning Case management for discharge planning, was notified that patient might be discharging this week if accepted at local skilled facility Conrado Mariee Nov 01, 2017 08:20
[2017-11-01] MEDS: FLUoxetine HCL 20 MG CAP PO SCH (11:27)
[2017-11-01] MEDS: VALPROIC ACID 250 MG CAP PO SCH ×2 (11:27→21:17)
[2017-11-01] MEDS: LISINOPRIL 10 MG TAB PO SCH (11:27)
[2017-11-01] MEDS: QUEtiapine FUMARATE 100 MG TAB PO SCH ×2 (11:27→21:16)
[2017-11-01] MEDS: ACETAMINOPHEN 325 MG TAB PO PRN ×2 (11:32→21:19)
[2017-11-01 12:00] VITALS: BP 119/76; PULSE 69; RESP 16; TEMP 97.8; O2SAT 97
[2017-11-01 20:00] VITALS: BP 129/84; PULSE 68; RESP 20; TEMP 97.6; O2SAT 95
[2017-11-02 08:00] VITALS: BP 152/90; PULSE 69; RESP 12; TEMP 97.2; O2SAT 96
--- NOTE | 2017-11-02 09:13 | HHI.PR ---
Subjective Remarks Follow up on unsafe discharge due to cognition. Patient seen and examined, lying in bed comfortably. Awake and alert. Pleasant. Follows commands appropriately. Denies any pain or discomfort. Eating well, denies any nausea or vomiting. Ambulating throughout the day. VSS. Afebrile. Objective Vitals Vital Signs Date Time Temp Pulse Resp B/P (MAP) Pulse Ox O2 Delivery O2 Flow Rate FiO2 11/01/17 20:00 97.6 68 20 129/84 (99) 95 11/01/17 12:32 18 11/01/17 12:00 97.8 69 16 119/76 (90) 97 I/O 11/01/17 11/01/17 11/01/17 11/02/17 11/02/17 11/02/17 07:00 15:00 23:00 07:00 15:00 23:00 Intake Total 480 ml 700 ml 100 ml Balance 480 ml 700 ml 100 ml Intake Oral 480 ml 700 ml 100 ml # Voids 2 5 1 # Bowel Movements 0 2 0 Imaging Last Impressions Breast Ultrasound 10/15/17 0000 Signed Impressions: Service Date/Time: Sunday, October 15, 2017 09:06 - CONCLUSION: Persistent subcutaneous collection at the 12:00 position of the right breast. It has slightly decreased in size since the study dated 09/23/2017 and could represent an infectious process. Consider followup to confirm resolution. Jovany Quezada MD Chest X-Ray 09/03/17 0000 Signed Impressions: Service Date/Time: Sunday, September 03, 2017 17:02 - CONCLUSION: 1. Mild edema pattern. Subsegmental basilar airspace disease most characteristic of atelectasis.. Fadi Carolina MD Cervical Spine CT 09/02/17 0000 Signed Impressions: Service Date/Time: August 12:56 - CONCLUSION: Postsurgical changes from anterior cervical plate at C6-7. No evidence of compression deformity or spondylolisthesis. Arun Regan MD Pelvis X-Ray 06/30/17 0000 Signed Impressions: Service Date/Time: Friday, June 30, 2017 12:17 - CONCLUSION: No significant change has occurred. Carlos Capps MD Objective Remarks GENERAL: Well-nourished, well-developed female lying in bed in [facility]. SKIN: Warm and dry. No rash. Right breast abscess improving. Erythema resolved. No drainage. No pain to site. HEENT: Normocephalic. Atraumatic. Pupils equal and round. No scleral icterus. No injection or drainage. No nasal bleeding or discharge. Mucous membranes pink and moist. NECK: Supple. Trachea midline. CARDIOVASCULAR: Regular rate and rhythm. S1, S2 noted. No murmur appreciated. RESPIRATORY: No accessory muscle use. Clear to auscultation. Breath sounds equal bilaterally. GASTROINTESTINAL: Abdomen soft, non-tender, nondistended. Normoactive bowel sounds x4. No guarding noted. MUSCULOSKELETAL: No obvious deformities. Extremities without clubbing, cyanosis , or edema. NEUROLOGICAL: Awake and alert. No obvious cranial nerve deficits. Motor grossly within normal limits. 5/5 muscle strength in bilateral upper and lower extremities. Normal speech. PSYCHIATRIC: Appropriate mood and affect. A/P Problem List: (1) Alcohol dependence in controlled environment ICD Code: F10.20 - Alcohol dependence, uncomplicated Status: Chronic (2) Facial injury ICD Code: S09.93XA - Unspecified injury of face, initial encounter Status: Acute (3) Fall ICD Code: W19.XXXA - Unspecified fall, initial encounter Status: Acute (4) Hypertension ICD Code: I10 - Essential (primary) hypertension Status: Acute (5) Pelvic fracture ICD Code: S32.9XXA - Fracture of unspecified parts of lumbosacral spine and pelvis, initial encounter for closed fracture Status: Acute (6) C1-C2 subluxation ICD Code: S13.120A - Subluxation of C1/C2 cervical vertebrae, initial encounter Status: Acute (7) C6 cervical fracture ICD Code: S12.500A - Unspecified displaced fracture of sixth cervical vertebra , initial encounter for closed fracture Status: Acute (8) Traumatic brain injury ICD Code: S06.9X9A - Unspecified intracranial injury with loss of consciousness of unspecified duration, initial encounter Status: Acute (9) Nasal fracture ICD Code: S02.2XXA - Fracture of nasal bones, initial encounter for closed fracture Status: Acute (10) Mild neurocognitive disorder ICD Code: G31.84 - Mild cognitive impairment, so stated Status: Acute (11) Intracranial bleed ICD Code: I62.9 - Nontraumatic intracranial hemorrhage, unspecified Status: Acute Assessment and Plan Inability to care for self, unsafe discharge due to cognition Initially he was indicated patient cannot walk, patient is walking at this time, PT and OT recommending supervision at home for safety Speech therapy following the patient intermittently for cognitive evaluations. 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 Mini mental state 28/30, recommended avoid antipsychotics for benzodiazepine. Recommending Depakote or carbamazepine Patient is medically stable for discharge, however due to underlying psychiatric/cognition patient is unsafe discharge until arrangements made by case management Case management for discharge planning Neuropsychiatry evaluated the patient recommended patient may improve with treatment, however indicates avoid benzodiazepines and antipsychotics Continue Prozac 40 mg daily, Depakene 500 mg twice daily and Seroquel 50 mg every 8 hours *Discussed with psychiatry again about patient's cognition issues. He indicated that the patient lacks capacity for signing AMA or to participate in discharge plan. He is recommending that he would invite the ethics committee to the hospital to have a discussion about patient care. * Consulted case management for ethics committee review, awaiting response Multiple traumatic injuries Patient laceration, subdural hemorrhage, ventricular hemorrhage, nasal fracture, C6 fracture, C1-C2 subluxation, C4 transverse process fracture, right rib fracture, L1 transverse process fracture, right pubic rami fracture Continue c-collar this time, however patient does not wear Specialist no longer following patient, patient will require outpatient follow-up if discharge Right breast abscess, Improved. Physical exam shows improvement. Ultrasound does show complex loculated collection measuring 2.4 x 1.7 x 1.8 cm. Representing breast abscess Status post Augmentin 500 mg twice daily for 10 days (end date 10/25/17). Finished Bactrim DS for 18 days Gen. surgery consulted who recommends no intervention at this time. Soft tissue ultrasound shows a improvement of the fluid collection. Hypertension Amlodipine 10 mg daily lisinopril 10 mg daily DVT prevention Patient ambulating Sequential compression devices while in bed Records were reviewed. Awaiting case management for discharge planning, No change in current treatment plan. RN updated about patient fall. Sitter was at bedside and supposedly patient turned her head and became dizzy and fell to the floor. Patient did hit her head with residual erythema to right cheek and side of face as well as abrasion to right knee. Will obtain stat head CT and right knee x-ray. Will obtain orthostatic bp's. Continue to monitor neuro status closely. Discharge Planning Patient is medically stable for discharge, however due to underlying psychiatric /cognition patient is unsafe discharge until arrangements made by case management. Possible discharge this week. Problem Qualifiers (1) Hypertension: Qualified Codes: I10 - Essential (primary) hypertension Alyssa Means Nov 02, 2017 09:13
[2017-11-02] MEDS: LISINOPRIL 10 MG TAB PO SCH (09:38)
[2017-11-02] MEDS: FLUoxetine HCL 20 MG CAP PO SCH (09:38)
[2017-11-02] MEDS: QUEtiapine FUMARATE 100 MG TAB PO SCH ×2 (09:38→21:12)
[2017-11-02] MEDS: VALPROIC ACID 250 MG CAP PO SCH ×2 (09:40→21:13)
--- NOTE | 2017-11-02 18:48 | RADRPT ---
EXAM DATE/TIME: 11/02/2017 18:35 [facility] COMPARISON: No previous studies available for comparison. INDICATIONS : Fall. RADIATION DOSE: 59.16 CTDIvol (mGy) MEDICAL HISTORY : Cerebrovascular disease. Hypertension. Cervical fracture. SURGICAL HISTORY : Fusion, cervical. ENCOUNTER: Initial ACUITY: 1 day PAIN SCALE: 1/10 LOCATION: cranial TECHNIQUE: Multiple contiguous axial images were obtained of the head. Using automated exposure control and adj ustment of the mA and/or kV according to patient size, radiation dose was kept as low as reasonably a chievable to obtain optimal diagnostic quality images. DICOM format image data is available electro nically for review and comparison. FINDINGS: CEREBRUM: The ventricles are normal for age. No evidence of midline shift, mass lesion, hemorrhage or acute in farction. No extra-axial fluid collections are seen. Hypoattenuation again seen in the periventricul ar white matter. A small area of encephalomalacia has developed of the right frontal lobe. Previously seen parenchymal and subdural blood has resolved. POSTERIOR FOSSA: The cerebellum and brainstem are intact. The 4th ventricle is midline. The cerebellopontine angle i s unremarkable. EXTRACRANIAL: The visualized portion of the orbits is intact. SKULL: The calvaria is intact. No evidence of skull fracture. CONCLUSION: 1. No bleed or other acute intracranial abnormality. 2. Previously seen intracranial hemorrhage has resolved. A small area of chronic encephalomalacia has developed of the right frontal lobe. 3. Chronic periventricular white matter changes are again noted. Jovany Hayes MD on November 02, 2017 at 18:45 Board Certified Radiologist. This report was verified electronically.
--- NOTE | 2017-11-02 19:10 | RADRPT ---
EXAM DATE/TIME: 11/02/2017 18:51 [facility] COMPARISON: No previous studies available for comparison. INDICATIONS : Abrasion on right knee and pain post fall. MEDICAL HISTORY : Cerebrovascular disease. Hypertension. Cervical fracture SURGICAL HISTORY : Fusion, cervical. ENCOUNTER: Initial ACUITY: 2 days PAIN SCORE: 7/10 LOCATION: Right knee FINDINGS: Four view examination of the right knee demonstrates no evidence of fracture or dislocation. Bony mi neralization is normal. The articular surfaces are intact. Mild prepatellar soft tissue swelling. T he suprapatellar soft tissues have a normal configuration. No radiopaque foreign body. CONCLUSION: Intact right knee. Jovany Hayes MD on November 02, 2017 at 19:08 Board Certified Radiologist. This report was verified electronically.
[2017-11-02 20:00] VITALS: BP_SYST 129; BP_SYST 130; BP_SYST 40; BP_DIAS 74; BP_DIAS 83; PULSE 71; PULSE 75; PULSE 91; RESP 20; TEMP 96.9; O2SAT 93; O2SAT 94; O2SAT 96
[2017-11-02 21:00] VITALS: BP 131/77; PULSE 66; RESP 20; TEMP 97; O2SAT 95
[2017-11-03] VITALS: BP 107/65; PULSE 55; RESP 20; TEMP 96.1; O2SAT 95
[2017-11-03 04:00] VITALS: BP 132/76; PULSE 59; RESP 20; TEMP 96.9; O2SAT 93
[2017-11-03 08:00] VITALS: BP 135/89; PULSE 70; RESP 18; TEMP 97; O2SAT 96
[2017-11-03] MEDS: FLUoxetine HCL 20 MG CAP PO SCH (09:21)
[2017-11-03] MEDS: QUEtiapine FUMARATE 100 MG TAB PO SCH ×2 (09:21→20:27)
[2017-11-03] MEDS: VALPROIC ACID 250 MG CAP PO SCH ×2 (09:21→20:27)
[2017-11-03] MEDS: LISINOPRIL 10 MG TAB PO SCH (09:21)
--- NOTE | 2017-11-03 09:36 | HHI.PR ---
Subjective Remarks Follow up on unsafe discharge due to cognition. Patient seen and examined, lying in bed, sitter at bedside. Patient sustained a fall yesterday, denies any pain or lightheadedness or dizziness. Awake and alert, pleasantly confused at times, no change from patient's baseline. Following commands. Eating well. Denies any abdominal pain, nausea, or vomiting. Objective Vitals Vital Signs Date Time Temp Pulse Resp B/P (MAP) Pulse Ox O2 Delivery O2 Flow Rate FiO2 11/03/17 08:00 97.0 70 18 135/89 (104) 96 11/03/17 04:00 96.9 59 20 132/76 (94) 93 11/03/17 00:00 96.1 55 20 107/65 (79) 95 11/02/17 21:00 97.0 66 20 131/77 (95) 95 11/02/17 20:00 96.9 75 20 130/83 (99) 96 11/02/17 20:00 96.9 91 20 40/83 (69) 93 11/02/17 20:00 96.9 71 20 129/74 (92) 94 I/O 11/02/17 11/02/17 11/02/17 11/03/17 11/03/17 11/03/17 07:00 15:00 23:00 07:00 15:00 23:00 Intake Total 100 ml 333 ml 222 ml 0 ml Balance 100 ml 333 ml 222 ml 0 ml Intake Oral 100 ml 333 ml 222 ml 0 ml # Voids 1 2 1 # Bowel Movements 0 1 0 Imaging Last Impressions Knee X-Ray 11/02/17 0000 Signed Impressions: Service Date/Time: Thursday, November 02, 2017 18:51 - CONCLUSION: Intact right knee. Jovany Hayes MD Head CT 11/02/17 0000 Signed Impressions: Service Date/Time: Thursday, November 02, 2017 18:35 - CONCLUSION: 1. No bleed or other acute intracranial abnormality. 2. Previously seen intracranial hemorrhage has resolved. A small area of chronic encephalomalacia has developed of the right frontal lobe. 3. Chronic periventricular white matter changes are again noted. Jovany Hayes MD Breast Ultrasound 10/15/17 0000 Signed Impressions: Service Date/Time: Sunday, October 15, 2017 09:06 - CONCLUSION: Persistent subcutaneous collection at the 12:00 position of the right breast. It has slightly decreased in size since the study dated 09/23/2017 and could represent an infectious process. Consider followup to confirm resolution. Jovany Quezada MD Chest X-Ray 09/03/17 0000 Signed Impressions: Service Date/Time: Sunday, September 03, 2017 17:02 - CONCLUSION: 1. Mild edema pattern. Subsegmental basilar airspace disease most characteristic of atelectasis.. Fadi Carolina MD Cervical Spine CT 09/02/17 0000 Signed Impressions: Service Date/Time: August 12:56 - CONCLUSION: Postsurgical changes from anterior cervical plate at C6-7. No evidence of compression deformity or spondylolisthesis. Arun Regan MD Pelvis X-Ray 06/30/17 0000 Signed Impressions: Service Date/Time: Friday, June 30, 2017 12:17 - CONCLUSION: No significant change has occurred. Carlos Capps MD Objective Remarks GENERAL: Well-nourished, well-developed female lying in bed in [facility]. SKIN: Warm and dry. No rash. Right breast abscess improving. Erythema resolved. No drainage. No pain to site. Right knee abrasion, FEROZ, no drainage. HEENT: Normocephalic. Atraumatic. Pupils equal and round. No scleral icterus. No injection or drainage. No nasal bleeding or discharge. Mucous membranes pink and moist. NECK: Supple. Trachea midline. CARDIOVASCULAR: Regular rate and rhythm. S1, S2 noted. No murmur appreciated. RESPIRATORY: No accessory muscle use. Clear to auscultation. Breath sounds equal bilaterally. GASTROINTESTINAL: Abdomen soft, non-tender, nondistended. Normoactive bowel sounds x4. No guarding noted. MUSCULOSKELETAL: No obvious deformities. Extremities without clubbing, cyanosis , or edema. NEUROLOGICAL: Awake and alert. No obvious cranial nerve deficits. Motor grossly within normal limits. 5/5 muscle strength in bilateral upper and lower extremities. Normal speech. PSYCHIATRIC: Appropriate mood and affect. A/P Problem List: (1) Alcohol dependence in controlled environment ICD Code: F10.20 - Alcohol dependence, uncomplicated Status: Chronic (2) Facial injury ICD Code: S09.93XA - Unspecified injury of face, initial encounter Status: Acute (3) Fall ICD Code: W19.XXXA - Unspecified fall, initial encounter Status: Acute (4) Hypertension ICD Code: I10 - Essential (primary) hypertension Status: Acute (5) Pelvic fracture ICD Code: S32.9XXA - Fracture of unspecified parts of lumbosacral spine and pelvis, initial encounter for closed fracture Status: Acute (6) C1-C2 subluxation ICD Code: S13.120A - Subluxation of C1/C2 cervical vertebrae, initial encounter Status: Acute (7) C6 cervical fracture ICD Code: S12.500A - Unspecified displaced fracture of sixth cervical vertebra , initial encounter for closed fracture Status: Acute (8) Traumatic brain injury ICD Code: S06.9X9A - Unspecified intracranial injury with loss of consciousness of unspecified duration, initial encounter Status: Acute (9) Nasal fracture ICD Code: S02.2XXA - Fracture of nasal bones, initial encounter for closed fracture Status: Acute (10) Mild neurocognitive disorder ICD Code: G31.84 - Mild cognitive impairment, so stated Status: Acute (11) Intracranial bleed ICD Code: I62.9 - Nontraumatic intracranial hemorrhage, unspecified Status: Acute Assessment and Plan Inability to care for self, unsafe discharge due to cognition Initially he was indicated patient cannot walk, patient is walking at this time, PT and OT recommending supervision at home for safety Speech therapy following the patient intermittently for cognitive evaluations. 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 Mini mental state 28/30, recommended avoid antipsychotics for benzodiazepine. Recommending Depakote or carbamazepine Patient is medically stable for discharge, however due to underlying psychiatric/cognition patient is unsafe discharge until arrangements made by case management Case management for discharge planning Neuropsychiatry evaluated the patient recommended patient may improve with treatment, however indicates avoid benzodiazepines and antipsychotics Continue Prozac 40 mg daily, Depakene 500 mg twice daily and Seroquel 50 mg every 8 hours *Discussed with psychiatry again about patient's cognition issues. He indicated that the patient lacks capacity for signing AMA or to participate in discharge plan. He is recommending that he would invite the ethics committee to the hospital to have a discussion about patient care. * Consulted case management for ethics committee review, awaiting response Fall, 10/23/17 Sitter was at bedside and supposedly patient turned her head and became dizzy and fell to the floor. Patient did hit her head with residual erythema to right cheek and side of face as well as abrasion to right knee. Head CT obtained and reviewed showing no acute fracture or bleed. Right knee x-ray showing no fracture. Orthostatic BPs unremarkable. Continue to monitor neuro status closely. Multiple traumatic injuries Patient laceration, subdural hemorrhage, ventricular hemorrhage, nasal fracture, C6 fracture, C1-C2 subluxation, C4 transverse process fracture, right rib fracture, L1 transverse process fracture, right pubic rami fracture Continue c-collar this time, however patient does not wear Specialist no longer following patient, patient will require outpatient follow-up if discharge Right breast abscess, Improved. Physical exam shows improvement. Ultrasound does show complex loculated collection measuring 2.4 x 1.7 x 1.8 cm. Representing breast abscess Status post Augmentin 500 mg twice daily for 10 days (end date 10/25/17). Finished Bactrim DS for 18 days Gen. surgery consulted who recommends no intervention at this time. Soft tissue ultrasound shows a improvement of the fluid collection. Hypertension Amlodipine 10 mg daily lisinopril 10 mg daily DVT prevention Patient ambulating Sequential compression devices while in bed Records were reviewed. Awaiting case management for discharge planning, No change in current treatment plan. Discharge Planning Patient is medically stable for discharge, however due to underlying psychiatric /cognition patient is unsafe discharge until arrangements made by case management. Possible discharge this week. Problem Qualifiers (1) Hypertension: Qualified Codes: I10 - Essential (primary) hypertension Alyssa Means Nov 03, 2017 09:36
[2017-11-03 12:00] VITALS: BP 144/88; PULSE 95; RESP 18; TEMP 98; O2SAT 98
[2017-11-03 16:00] VITALS: BP 155/80; PULSE 57; RESP 18; TEMP 98; O2SAT 95
[2017-11-03 20:00] VITALS: BP 160/84; PULSE 60; RESP 21; TEMP 96.6; O2SAT 94
[2017-11-04 07:50] VITALS: BP 160/89; PULSE 54; RESP 20; TEMP 96.1; O2SAT 93
[2017-11-04] MEDS: LISINOPRIL 10 MG TAB PO SCH (08:43)
[2017-11-04] MEDS: FLUoxetine HCL 20 MG CAP PO SCH (08:43)
[2017-11-04] MEDS: VALPROIC ACID 250 MG CAP PO SCH ×2 (08:44→20:38)
[2017-11-04] MEDS: QUEtiapine FUMARATE 100 MG TAB PO SCH ×2 (08:44→20:38)
[2017-11-04 10:52] VITALS: BP 111/73; PULSE 65; RESP 17
--- NOTE | 2017-11-04 16:42 | HHI.PR ---
Subjective Remarks Follow up on unsafe discharge due to cognition. Patient seen and examined, ambulating in halls. Doing well. Denies any change in condition. Denies any pain. Patient is doing well since fall 2 days ago. No further episodes. Denies any dizziness. Objective Vitals Vital Signs Date Time Temp Pulse Resp B/P (MAP) Pulse Ox O2 Delivery O2 Flow Rate FiO2 11/04/17 10:52 65 17 111/73 (86) 11/04/17 07:50 96.1 54 20 160/89 (112) 93 11/03/17 20:00 96.6 60 21 160/84 (109) 94 I/O 11/03/17 11/03/17 11/03/17 11/04/17 11/04/17 11/04/17 06:59 14:59 22:59 06:59 14:59 22:59 Intake Total 0 ml 600 ml 240 ml Balance 0 ml 600 ml 240 ml Intake Oral 0 ml 600 ml 240 ml # Voids 1 3 3 Imaging Last Impressions Knee X-Ray 11/02/17 0000 Signed Impressions: Service Date/Time: Thursday, November 02, 2017 18:51 - CONCLUSION: Intact right knee. Jovany Hayes MD Head CT 11/02/17 0000 Signed Impressions: Service Date/Time: Thursday, November 02, 2017 18:35 - CONCLUSION: 1. No bleed or other acute intracranial abnormality. 2. Previously seen intracranial hemorrhage has resolved. A small area of chronic encephalomalacia has developed of the right frontal lobe. 3. Chronic periventricular white matter changes are again noted. Jovany Hayes MD Breast Ultrasound 10/15/17 0000 Signed Impressions: Service Date/Time: Sunday, October 15, 2017 09:06 - CONCLUSION: Persistent subcutaneous collection at the 12:00 position of the right breast. It has slightly decreased in size since the study dated 09/23/2017 and could represent an infectious process. Consider followup to confirm resolution. Jovany Quezada MD Chest X-Ray 09/03/17 0000 Signed Impressions: Service Date/Time: Sunday, September 03, 2017 17:02 - CONCLUSION: 1. Mild edema pattern. Subsegmental basilar airspace disease most characteristic of atelectasis.. Fadi Carolina MD Cervical Spine CT 09/02/17 0000 Signed Impressions: Service Date/Time: August 12:56 - CONCLUSION: Postsurgical changes from anterior cervical plate at C6-7. No evidence of compression deformity or spondylolisthesis. Arun Regan MD Pelvis X-Ray 06/30/17 0000 Signed Impressions: Service Date/Time: Friday, June 30, 2017 12:17 - CONCLUSION: No significant change has occurred. Carlos Capps MD Objective Remarks GENERAL: Well-nourished, well-developed female lying in bed in [facility]. SKIN: Warm and dry. No rash. Right breast abscess improving. Erythema resolved. No drainage. No pain to site. Right knee abrasion, scabbed. HEENT: Normocephalic. Atraumatic. Pupils equal and round. No scleral icterus. No injection or drainage. No nasal bleeding or discharge. Mucous membranes pink and moist. NECK: Supple. Trachea midline. CARDIOVASCULAR: Regular rate and rhythm. S1, S2 noted. No murmur appreciated. RESPIRATORY: No accessory muscle use. Clear to auscultation. Breath sounds equal bilaterally. GASTROINTESTINAL: Abdomen soft, non-tender, nondistended. Normoactive bowel sounds x4. No guarding noted. MUSCULOSKELETAL: No obvious deformities. Extremities without clubbing, cyanosis , or edema. NEUROLOGICAL: Awake and alert. No obvious cranial nerve deficits. Motor grossly within normal limits. 5/5 muscle strength in bilateral upper and lower extremities. Normal speech. PSYCHIATRIC: Appropriate mood and affect. A/P Problem List: (1) Alcohol dependence in controlled environment ICD Code: F10.20 - Alcohol dependence, uncomplicated Status: Chronic (2) Facial injury ICD Code: S09.93XA - Unspecified injury of face, initial encounter Status: Acute (3) Fall ICD Code: W19.XXXA - Unspecified fall, initial encounter Status: Acute (4) Hypertension ICD Code: I10 - Essential (primary) hypertension Status: Acute (5) Pelvic fracture ICD Code: S32.9XXA - Fracture of unspecified parts of lumbosacral spine and pelvis, initial encounter for closed fracture Status: Acute (6) C1-C2 subluxation ICD Code: S13.120A - Subluxation of C1/C2 cervical vertebrae, initial encounter Status: Acute (7) C6 cervical fracture ICD Code: S12.500A - Unspecified displaced fracture of sixth cervical vertebra , initial encounter for closed fracture Status: Acute (8) Traumatic brain injury ICD Code: S06.9X9A - Unspecified intracranial injury with loss of consciousness of unspecified duration, initial encounter Status: Acute (9) Nasal fracture ICD Code: S02.2XXA - Fracture of nasal bones, initial encounter for closed fracture Status: Acute (10) Mild neurocognitive disorder ICD Code: G31.84 - Mild cognitive impairment, so stated Status: Acute (11) Intracranial bleed ICD Code: I62.9 - Nontraumatic intracranial hemorrhage, unspecified Status: Acute Assessment and Plan Inability to care for self, unsafe discharge due to cognition Initially he was indicated patient cannot walk, patient is walking at this time, PT and OT recommending supervision at home for safety Speech therapy following the patient intermittently for cognitive evaluations. 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 Mini mental state 28/30, recommended avoid antipsychotics for benzodiazepine. Recommending Depakote or carbamazepine Patient is medically stable for discharge, however due to underlying psychiatric/cognition patient is unsafe discharge until arrangements made by case management Case management for discharge planning Neuropsychiatry evaluated the patient recommended patient may improve with treatment, however indicates avoid benzodiazepines and antipsychotics Continue Prozac 40 mg daily, Depakene 500 mg twice daily and Seroquel 50 mg every 8 hours *Discussed with psychiatry again about patient's cognition issues. He indicated that the patient lacks capacity for signing AMA or to participate in discharge plan. He is recommending that he would invite the ethics committee to the hospital to have a discussion about patient care. * Consulted case management for ethics committee review, awaiting response Fall, 10/23/[address] obtained and reviewed showing no acute fracture or bleed. Right knee x-ray showing no fracture. Orthostatic BPs unremarkable. Continue to monitor neuro status closely. No further fall incidences. No further dizziness. Multiple traumatic injuries Patient laceration, subdural hemorrhage, ventricular hemorrhage, nasal fracture, C6 fracture, C1-C2 subluxation, C4 transverse process fracture, right rib fracture, L1 transverse process fracture, right pubic rami fracture Continue c-collar this time, however patient does not wear Specialist no longer following patient, patient will require outpatient follow-up if discharge Right breast abscess, Improved. Physical exam shows improvement. Ultrasound does show complex loculated collection measuring 2.4 x 1.7 x 1.8 cm. Representing breast abscess Status post Augmentin 500 mg twice daily for 10 days (end date 10/25/17). Finished Bactrim DS for 18 days Gen. surgery consulted who recommends no intervention at this time. Soft tissue ultrasound shows a improvement of the fluid collection. Hypertension Mildly elevated. Last reading has been normal. Will continue to monitor. Amlodipine 10 mg daily lisinopril 10 mg daily DVT prevention Patient ambulating Sequential compression devices while in bed Records were reviewed. Awaiting case management for discharge planning, No change in current treatment plan. Discharge Planning Patient is medically stable for discharge, however due to underlying psychiatric /cognition patient is unsafe discharge until arrangements made by case management. Possible discharge this week. Problem Qualifiers (1) Hypertension: Qualified Codes: I10 - Essential (primary) hypertension Alyssa Means Nov 04, 2017 16:42
[2017-11-04 20:00] VITALS: BP 138/82; PULSE 65; RESP 18; TEMP 96.8; O2SAT 96
[2017-11-05 08:00] VITALS: BP 140/77; PULSE 58; RESP 16; TEMP 97.4; O2SAT 96
[2017-11-05] MEDS: LISINOPRIL 10 MG TAB PO SCH (09:25)
[2017-11-05] MEDS: VALPROIC ACID 250 MG CAP PO SCH ×2 (09:26→20:40)
[2017-11-05] MEDS: FLUoxetine HCL 20 MG CAP PO SCH (09:26)
[2017-11-05] MEDS: QUEtiapine FUMARATE 100 MG TAB PO SCH ×2 (09:26→20:40)
--- NOTE | 2017-11-05 10:03 | HHI.PR ---
Subjective Remarks Follow up on unsafe discharge due to cognition. Patient seen and examined lying in bed comfortably. NAD. Slept well. No acute events overnight. Eating well. Ambulating well. No further reports of falls. Denies any pain or dizziness. Patient at baseline. Objective Vitals Vital Signs Date Time Temp Pulse Resp B/P (MAP) Pulse Ox O2 Delivery O2 Flow Rate FiO2 11/05/17 08:00 97.4 58 16 140/77 (98) 96 11/04/17 20:00 96.8 65 18 138/82 (100) 96 11/04/17 10:52 65 17 111/73 (86) I/O 11/04/17 11/04/17 11/04/17 11/05/17 11/05/17 11/05/17 07:00 15:00 23:00 07:00 15:00 23:00 Intake Total 240 ml 914 ml 420 ml Balance 240 ml 914 ml 420 ml Intake Oral 240 ml 914 ml 420 ml # Voids 3 4 2 # Bowel Movements 2 0 Imaging Last Impressions Knee X-Ray 11/02/17 0000 Signed Impressions: Service Date/Time: Thursday, November 02, 2017 18:51 - CONCLUSION: Intact right knee. Jovany Hayes MD Head CT 11/02/17 0000 Signed Impressions: Service Date/Time: Thursday, November 02, 2017 18:35 - CONCLUSION: 1. No bleed or other acute intracranial abnormality. 2. Previously seen intracranial hemorrhage has resolved. A small area of chronic encephalomalacia has developed of the right frontal lobe. 3. Chronic periventricular white matter changes are again noted. Jovany Hayes MD Breast Ultrasound 10/15/17 0000 Signed Impressions: Service Date/Time: Sunday, October 15, 2017 09:06 - CONCLUSION: Persistent subcutaneous collection at the 12:00 position of the right breast. It has slightly decreased in size since the study dated 09/23/2017 and could represent an infectious process. Consider followup to confirm resolution. Jovany Quezada MD Chest X-Ray 09/03/17 0000 Signed Impressions: Service Date/Time: Sunday, September 03, 2017 17:02 - CONCLUSION: 1. Mild edema pattern. Subsegmental basilar airspace disease most characteristic of atelectasis.. Fadi Carolina MD Cervical Spine CT 09/02/17 0000 Signed Impressions: Service Date/Time: August 12:56 - CONCLUSION: Postsurgical changes from anterior cervical plate at C6-7. No evidence of compression deformity or spondylolisthesis. Arun Regan MD Pelvis X-Ray 06/30/17 0000 Signed Impressions: Service Date/Time: Friday, June 30, 2017 12:17 - CONCLUSION: No significant change has occurred. Carlos Capps MD Objective Remarks GENERAL: Well-nourished, well-developed female lying in bed in [facility]. SKIN: Warm and dry. No rash. Right breast abscess improving. Erythema resolved. No drainage. No pain to site. Right knee abrasion, scabbed. HEENT: Normocephalic. Atraumatic. Pupils equal and round. No scleral icterus. No injection or drainage. No nasal bleeding or discharge. Mucous membranes pink and moist. NECK: Supple. Trachea midline. CARDIOVASCULAR: Regular rate and rhythm. S1, S2 noted. No murmur appreciated. RESPIRATORY: No accessory muscle use. Clear to auscultation. Breath sounds equal bilaterally. GASTROINTESTINAL: Abdomen soft, non-tender, nondistended. Normoactive bowel sounds x4. No guarding noted. MUSCULOSKELETAL: No obvious deformities. Extremities without clubbing, cyanosis , or edema. NEUROLOGICAL: Awake and alert. No obvious cranial nerve deficits. Motor grossly within normal limits. 5/5 muscle strength in bilateral upper and lower extremities. Normal speech. PSYCHIATRIC: Appropriate mood and affect. A/P Problem List: (1) Alcohol dependence in controlled environment ICD Code: F10.20 - Alcohol dependence, uncomplicated Status: Chronic (2) Facial injury ICD Code: S09.93XA - Unspecified injury of face, initial encounter Status: Acute (3) Fall ICD Code: W19.XXXA - Unspecified fall, initial encounter Status: Acute (4) Hypertension ICD Code: I10 - Essential (primary) hypertension Status: Acute (5) Pelvic fracture ICD Code: S32.9XXA - Fracture of unspecified parts of lumbosacral spine and pelvis, initial encounter for closed fracture Status: Acute (6) C1-C2 subluxation ICD Code: S13.120A - Subluxation of C1/C2 cervical vertebrae, initial encounter Status: Acute (7) C6 cervical fracture ICD Code: S12.500A - Unspecified displaced fracture of sixth cervical vertebra , initial encounter for closed fracture Status: Acute (8) Traumatic brain injury ICD Code: S06.9X9A - Unspecified intracranial injury with loss of consciousness of unspecified duration, initial encounter Status: Acute (9) Nasal fracture ICD Code: S02.2XXA - Fracture of nasal bones, initial encounter for closed fracture Status: Acute (10) Mild neurocognitive disorder ICD Code: G31.84 - Mild cognitive impairment, so stated Status: Acute (11) Intracranial bleed ICD Code: I62.9 - Nontraumatic intracranial hemorrhage, unspecified Status: Acute Assessment and Plan Inability to care for self, unsafe discharge due to cognition Initially he was indicated patient cannot walk, patient is walking at this time, PT and OT recommending supervision at home for safety Speech therapy following the patient intermittently for cognitive evaluations. MOCA score 20/30, she needs to have supervision Psychiatry indicates that secondary to her frontal lobe injury her cognition changes on a daily basis. Mini mental state 28/30, recommended avoid antipsychotics for benzodiazepine. Recommending Depakote or carbamazepine Patient is medically stable for discharge, however due to underlying psychiatric/cognition patient is unsafe discharge until arrangements made by case management Case management for discharge planning Neuropsychiatry evaluated the patient recommended patient may improve with treatment, however indicates avoid benzodiazepines and antipsychotics Continue Prozac 40 mg daily, Depakene 500 mg twice daily and Seroquel 50 mg every 8 hours *Discussed with psychiatry again about patient's cognition issues. He indicated that the patient lacks capacity for signing AMA or to participate in discharge plan. He is recommending that he would invite the ethics committee to the hospital to have a discussion about patient care. * Consulted case management for ethics committee review, awaiting response Fall, 10/23/[address] obtained and reviewed showing no acute fracture or bleed. Right knee x-ray showing no fracture. Orthostatic BPs unremarkable. Continue to monitor neuro status closely. No further fall incidences. No further dizziness. Multiple traumatic injuries Patient laceration, subdural hemorrhage, ventricular hemorrhage, nasal fracture, C6 fracture, C1-C2 subluxation, C4 transverse process fracture, right rib fracture, L1 transverse process fracture, right pubic rami fracture Continue c-collar this time, however patient does not wear Specialist no longer following patient, patient will require outpatient follow-up if discharge Right breast abscess, Improved. Physical exam shows improvement. Ultrasound does show complex loculated collection measuring 2.4 x 1.7 x 1.8 cm. Representing breast abscess Status post Augmentin 500 mg twice daily for 10 days (end date 10/25/17). Finished Bactrim DS for 18 days Gen. surgery consulted who recommends no intervention at this time. Soft tissue ultrasound shows a improvement of the fluid collection. Hypertension Blood pressures more controlled at this time. Will continue to monitor. Amlodipine 10 mg daily lisinopril 10 mg daily DVT prevention Patient ambulating Sequential compression devices while in bed Records were reviewed. Awaiting case management for discharge planning, No change in current treatment plan. Discharge Planning Patient is medically stable for discharge, however due to underlying psychiatric /cognition patient is unsafe discharge until arrangements made by case management. Possible discharge this week. Problem Qualifiers (1) Hypertension: Qualified Codes: I10 - Essential (primary) hypertension Alyssa Means Nov 05, 2017 10:03
[2017-11-05 20:00] VITALS: BP 131/75; PULSE 68; RESP 20; TEMP 97.3; O2SAT 93
[2017-11-06 07:30] VITALS: BP 110/65; PULSE 65; RESP 20; TEMP 98.3; O2SAT 90
[2017-11-06] MEDS: QUEtiapine FUMARATE 100 MG TAB PO SCH ×2 (09:53→21:11)
[2017-11-06] MEDS: VALPROIC ACID 250 MG CAP PO SCH ×2 (09:53→21:11)
[2017-11-06] MEDS: FLUoxetine HCL 20 MG CAP PO SCH (09:53)
[2017-11-06] MEDS: ACETAMINOPHEN 325 MG TAB PO PRN ×2 (09:53→21:15)
[2017-11-06] MEDS: LISINOPRIL 10 MG TAB PO SCH (09:54)
--- NOTE | 2017-11-06 17:12 | HHI.PR ---
Subjective Remarks Follow up on unsafe discharge due to cognition. Patient seen and examined lying in bed sleeping, awakens to voice. Pleasant. Follow commands. States she has been resting all day. Eating well. Denies any new acute complaints. No change in clinical condition. Objective Vitals Vital Signs Date Time Temp Pulse Resp B/P (MAP) Pulse Ox O2 Delivery O2 Flow Rate FiO2 11/06/17 07:30 98.3 65 20 110/65 (80) 90 11/05/17 20:00 97.3 68 20 131/75 (93) 93 I/O 11/05/17 11/05/17 11/05/17 11/06/17 11/06/17 11/06/17 07:00 15:00 23:00 07:00 15:00 23:00 Intake Total 420 ml 825 ml 0 ml 240 ml Balance 420 ml 825 ml 0 ml 240 ml Intake Oral 420 ml 825 ml 240 ml IV Total 0 ml # Voids 2 4 1 # Bowel Movements 0 1 Imaging Last Impressions Knee X-Ray 11/02/17 0000 Signed Impressions: Service Date/Time: Thursday, November 02, 2017 18:51 - CONCLUSION: Intact right knee. Jovany Hayes MD Head CT 11/02/17 0000 Signed Impressions: Service Date/Time: Thursday, November 02, 2017 18:35 - CONCLUSION: 1. No bleed or other acute intracranial abnormality. 2. Previously seen intracranial hemorrhage has resolved. A small area of chronic encephalomalacia has developed of the right frontal lobe. 3. Chronic periventricular white matter changes are again noted. Jovany Hayes MD Breast Ultrasound 10/15/17 0000 Signed Impressions: Service Date/Time: Sunday, October 15, 2017 09:06 - CONCLUSION: Persistent subcutaneous collection at the 12:00 position of the right breast. It has slightly decreased in size since the study dated 09/23/2017 and could represent an infectious process. Consider followup to confirm resolution. Jovany Quezada MD Chest X-Ray 09/03/17 0000 Signed Impressions: Service Date/Time: Sunday, September 03, 2017 17:02 - CONCLUSION: 1. Mild edema pattern. Subsegmental basilar airspace disease most characteristic of atelectasis.. Fadi Carolina MD Cervical Spine CT 09/02/17 0000 Signed Impressions: Service Date/Time: August 12:56 - CONCLUSION: Postsurgical changes from anterior cervical plate at C6-7. No evidence of compression deformity or spondylolisthesis. Arun Regan MD Pelvis X-Ray 06/30/17 0000 Signed Impressions: Service Date/Time: Friday, June 30, 2017 12:17 - CONCLUSION: No significant change has occurred. Carlos Capps MD Objective Remarks GENERAL: Well-nourished, well-developed female lying in bed in [facility]. SKIN: Warm and dry. No rash. Right breast abscess improving. Erythema resolved. No drainage. No pain to site. Right knee abrasion, scabbed. HEENT: Normocephalic. Atraumatic. Pupils equal and round. No scleral icterus. No injection or drainage. No nasal bleeding or discharge. Mucous membranes pink and moist. NECK: Supple. Trachea midline. CARDIOVASCULAR: Regular rate and rhythm. S1, S2 noted. No murmur appreciated. RESPIRATORY: No accessory muscle use. Clear to auscultation. Breath sounds equal bilaterally. GASTROINTESTINAL: Abdomen soft, non-tender, nondistended. Normoactive bowel sounds x4. No guarding noted. MUSCULOSKELETAL: No obvious deformities. Extremities without clubbing, cyanosis , or edema. NEUROLOGICAL: Awake and alert. No obvious cranial nerve deficits. Motor grossly within normal limits. 5/5 muscle strength in bilateral upper and lower extremities. Normal speech. PSYCHIATRIC: Appropriate mood and affect. A/P Problem List: (1) Alcohol dependence in controlled environment ICD Code: F10.20 - Alcohol dependence, uncomplicated Status: Chronic (2) Facial injury ICD Code: S09.93XA - Unspecified injury of face, initial encounter Status: Acute (3) Fall ICD Code: W19.XXXA - Unspecified fall, initial encounter Status: Acute (4) Hypertension ICD Code: I10 - Essential (primary) hypertension Status: Acute (5) Pelvic fracture ICD Code: S32.9XXA - Fracture of unspecified parts of lumbosacral spine and pelvis, initial encounter for closed fracture Status: Acute (6) C1-C2 subluxation ICD Code: S13.120A - Subluxation of C1/C2 cervical vertebrae, initial encounter Status: Acute (7) C6 cervical fracture ICD Code: S12.500A - Unspecified displaced fracture of sixth cervical vertebra , initial encounter for closed fracture Status: Acute (8) Traumatic brain injury ICD Code: S06.9X9A - Unspecified intracranial injury with loss of consciousness of unspecified duration, initial encounter Status: Acute (9) Nasal fracture ICD Code: S02.2XXA - Fracture of nasal bones, initial encounter for closed fracture Status: Acute (10) Mild neurocognitive disorder ICD Code: G31.84 - Mild cognitive impairment, so stated Status: Acute (11) Intracranial bleed ICD Code: I62.9 - Nontraumatic intracranial hemorrhage, unspecified Status: Acute Assessment and Plan Inability to care for self, unsafe discharge due to cognition Initially he was indicated patient cannot walk, patient is walking at this time, PT and OT recommending supervision at home for safety Speech therapy following the patient intermittently for cognitive evaluations. MOCA score 20/30, she needs to have supervision Psychiatry indicates that secondary to her frontal lobe injury her cognition changes on a daily basis. Mini mental state 28/30, recommended avoid antipsychotics for benzodiazepine. Recommending Depakote or carbamazepine Patient is medically stable for discharge, however due to underlying psychiatric/cognition patient is unsafe discharge until arrangements made by case management Case management for discharge planning Neuropsychiatry evaluated the patient recommended patient may improve with treatment, however indicates avoid benzodiazepines and antipsychotics Continue Prozac 40 mg daily, Depakene 500 mg twice daily and Seroquel 50 mg every 8 hours *Discussed with psychiatry again about patient's cognition issues. He indicated that the patient lacks capacity for signing AMA or to participate in discharge plan. He is recommending that he would invite the ethics committee to the hospital to have a discussion about patient care. * Consulted case management for ethics committee review, awaiting response Fall, 10/23/[address] obtained and reviewed showing no acute fracture or bleed. Right knee x-ray showing no fracture. Orthostatic BPs unremarkable. Continue to monitor neuro status closely. No further fall incidences. No further dizziness. Multiple traumatic injuries Patient laceration, subdural hemorrhage, ventricular hemorrhage, nasal fracture, C6 fracture, C1-C2 subluxation, C4 transverse process fracture, right rib fracture, L1 transverse process fracture, right pubic rami fracture Continue c-collar this time, however patient does not wear Specialist no longer following patient, patient will require outpatient follow-up if discharge Right breast abscess, Improved. Physical exam shows improvement. Ultrasound does show complex loculated collection measuring 2.4 x 1.7 x 1.8 cm. Representing breast abscess Status post Augmentin 500 mg twice daily for 10 days (end date 10/25/17). Finished Bactrim DS for 18 days Gen. surgery consulted who recommends no intervention at this time. Soft tissue ultrasound shows a improvement of the fluid collection. Hypertension Blood pressures more controlled at this time. Will continue to monitor. Amlodipine 10 mg daily lisinopril 10 mg daily DVT prevention Patient ambulating Sequential compression devices while in bed Records were reviewed. Awaiting case management for discharge planning, No change in current treatment plan. Discharge Planning Patient is medically stable for discharge, however due to underlying psychiatric /cognition patient is unsafe discharge until arrangements made by case management. Possible discharge this week. Problem Qualifiers (1) Hypertension: Qualified Codes: I10 - Essential (primary) hypertension Alyssa Means Nov 06, 2017 17:12
[2017-11-06 20:00] VITALS: BP 130/85; PULSE 71; RESP 18; TEMP 99; O2SAT 92
[2017-11-07 08:00] VITALS: BP 149/87; PULSE 59; RESP 14; TEMP 96.4; O2SAT 92
[2017-11-07 09:21] VITALS: PULSE 82
[2017-11-07] MEDS: FLUoxetine HCL 20 MG CAP PO SCH (09:22)
[2017-11-07] MEDS: VALPROIC ACID 250 MG CAP PO SCH ×2 (09:22→20:22)
[2017-11-07] MEDS: QUEtiapine FUMARATE 100 MG TAB PO SCH ×2 (09:22→20:22)
[2017-11-07] MEDS: LISINOPRIL 10 MG TAB PO SCH (09:22)
--- NOTE | 2017-11-07 11:13 | HHI.PR ---
Subjective Remarks Follow up on unsafe discharge due to cognition. Patient seen and examined sitting in chair at nurses station. No change in clinical condition. Comfortable. With no acute complaints. Eating well. Denies any pain, fever, chills, nausea, vomiting, abdominal pain, diarrhea or dysuria. Objective Vitals Vital Signs Date Time Temp Pulse Resp B/P (MAP) Pulse Ox O2 Delivery O2 Flow Rate FiO2 11/07/17 09:21 82 11/07/17 08:00 96.4 59 14 149/87 (107) 92 11/06/17 20:00 99.0 71 18 130/85 (100) 92 I/O 11/06/17 11/06/17 11/06/17 11/07/17 11/07/17 11/07/17 07:00 15:00 23:00 07:00 15:00 23:00 Intake Total 240 ml 400 ml 480 ml Balance 240 ml 400 ml 480 ml Intake Oral 240 ml 400 ml 480 ml # Voids 1 1 3 # Bowel Movements 0 1 Imaging Last Impressions Knee X-Ray 11/02/17 0000 Signed Impressions: Service Date/Time: Thursday, November 02, 2017 18:51 - CONCLUSION: Intact right knee. Jovany Hayes MD Head CT 11/02/17 0000 Signed Impressions: Service Date/Time: Thursday, November 02, 2017 18:35 - CONCLUSION: 1. No bleed or other acute intracranial abnormality. 2. Previously seen intracranial hemorrhage has resolved. A small area of chronic encephalomalacia has developed of the right frontal lobe. 3. Chronic periventricular white matter changes are again noted. Jovany Hayes MD Breast Ultrasound 10/15/17 0000 Signed Impressions: Service Date/Time: Sunday, October 15, 2017 09:06 - CONCLUSION: Persistent subcutaneous collection at the 12:00 position of the right breast. It has slightly decreased in size since the study dated 09/23/2017 and could represent an infectious process. Consider followup to confirm resolution. Jovany Quezada MD Chest X-Ray 09/03/17 0000 Signed Impressions: Service Date/Time: Sunday, September 03, 2017 17:02 - CONCLUSION: 1. Mild edema pattern. Subsegmental basilar airspace disease most characteristic of atelectasis.. Fadi Carolina MD Cervical Spine CT 09/02/17 0000 Signed Impressions: Service Date/Time: August 12:56 - CONCLUSION: Postsurgical changes from anterior cervical plate at C6-7. No evidence of compression deformity or spondylolisthesis. Arun Regan MD Pelvis X-Ray 06/30/17 0000 Signed Impressions: Service Date/Time: Friday, June 30, 2017 12:17 - CONCLUSION: No significant change has occurred. Carlos Capps MD Objective Remarks GENERAL: Well-nourished, well-developed female lying in bed in [facility]. SKIN: Warm and dry. No rash. Right breast abscess improving. Erythema resolved. No drainage. No pain to site. Right knee abrasion, scabbed. HEENT: Normocephalic. Atraumatic. Pupils equal and round. No scleral icterus. No injection or drainage. No nasal bleeding or discharge. Mucous membranes pink and moist. NECK: Supple. Trachea midline. CARDIOVASCULAR: Regular rate and rhythm. S1, S2 noted. No murmur appreciated. RESPIRATORY: No accessory muscle use. Clear to auscultation. Breath sounds equal bilaterally. GASTROINTESTINAL: Abdomen soft, non-tender, nondistended. Normoactive bowel sounds x4. No guarding noted. MUSCULOSKELETAL: No obvious deformities. Extremities without clubbing, cyanosis , or edema. NEUROLOGICAL: Awake and alert. No obvious cranial nerve deficits. Motor grossly within normal limits. 5/5 muscle strength in bilateral upper and lower extremities. Normal speech. PSYCHIATRIC: Appropriate mood and affect. A/P Problem List: (1) Alcohol dependence in controlled environment ICD Code: F10.20 - Alcohol dependence, uncomplicated Status: Chronic (2) Facial injury ICD Code: S09.93XA - Unspecified injury of face, initial encounter Status: Acute (3) Fall ICD Code: W19.XXXA - Unspecified fall, initial encounter Status: Acute (4) Hypertension ICD Code: I10 - Essential (primary) hypertension Status: Acute (5) Pelvic fracture ICD Code: S32.9XXA - Fracture of unspecified parts of lumbosacral spine and pelvis, initial encounter for closed fracture Status: Acute (6) C1-C2 subluxation ICD Code: S13.120A - Subluxation of C1/C2 cervical vertebrae, initial encounter Status: Acute (7) C6 cervical fracture ICD Code: S12.500A - Unspecified displaced fracture of sixth cervical vertebra , initial encounter for closed fracture Status: Acute (8) Traumatic brain injury ICD Code: S06.9X9A - Unspecified intracranial injury with loss of consciousness of unspecified duration, initial encounter Status: Acute (9) Nasal fracture ICD Code: S02.2XXA - Fracture of nasal bones, initial encounter for closed fracture Status: Acute (10) Mild neurocognitive disorder ICD Code: G31.84 - Mild cognitive impairment, so stated Status: Acute (11) Intracranial bleed ICD Code: I62.9 - Nontraumatic intracranial hemorrhage, unspecified Status: Acute Assessment and Plan Inability to care for self, unsafe discharge due to cognition Initially he was indicated patient cannot walk, patient is walking at this time, PT and OT recommending supervision at home for safety Speech therapy following the patient intermittently for cognitive evaluations. MOCA score 20/30, she needs to have supervision Psychiatry indicates that secondary to her frontal lobe injury her cognition changes on a daily basis. Mini mental state 28/30, recommended avoid antipsychotics for benzodiazepine. Recommending Depakote or carbamazepine Patient is medically stable for discharge, however due to underlying psychiatric/cognition patient is unsafe discharge until arrangements made by case management Case management for discharge planning Neuropsychiatry evaluated the patient recommended patient may improve with treatment, however indicates avoid benzodiazepines and antipsychotics Continue Prozac 40 mg daily, Depakene 500 mg twice daily and Seroquel 50 mg every 8 hours *Discussed with psychiatry again about patient's cognition issues. He indicated that the patient lacks capacity for signing AMA or to participate in discharge plan. He is recommending that he would invite the ethics committee to the hospital to have a discussion about patient care. * Consulted case management for ethics committee review, awaiting response Fall, 10/23/[address] obtained and reviewed showing no acute fracture or bleed. Right knee x-ray showing no fracture. Orthostatic BPs unremarkable. Continue to monitor neuro status closely. No further fall incidences. No further dizziness. Multiple traumatic injuries Patient laceration, subdural hemorrhage, ventricular hemorrhage, nasal fracture, C6 fracture, C1-C2 subluxation, C4 transverse process fracture, right rib fracture, L1 transverse process fracture, right pubic rami fracture Continue c-collar this time, however patient does not wear Specialist no longer following patient, patient will require outpatient follow-up if discharge Right breast abscess, Improved. Physical exam shows improvement. Ultrasound does show complex loculated collection measuring 2.4 x 1.7 x 1.8 cm. Representing breast abscess Status post Augmentin 500 mg twice daily for 10 days (end date 10/25/17). Finished Bactrim DS for 18 days Gen. surgery consulted who recommends no intervention at this time. Soft tissue ultrasound shows a improvement of the fluid collection. Hypertension Blood pressures more controlled at this time. Will continue to monitor. Amlodipine 10 mg daily lisinopril 10 mg daily DVT prevention Patient ambulating Sequential compression devices while in bed Records were reviewed. Awaiting case management for discharge planning, No change in current treatment plan. Discharge Planning Patient is medically stable for discharge, however due to underlying psychiatric /cognition patient is unsafe discharge until arrangements made by case management. Possible discharge this week. Problem Qualifiers (1) Hypertension: Qualified Codes: I10 - Essential (primary) hypertension Alyssa Means Nov 07, 2017 11:13
[2017-11-07 20:00] VITALS: BP 136/77; PULSE 66; RESP 20; TEMP 97.3; O2SAT 93
[2017-11-07] MEDS: ACETAMINOPHEN 325 MG TAB PO PRN (20:23)
[2017-11-08 07:50] VITALS: BP 147/83; PULSE 70; RESP 20; TEMP 97.2; O2SAT 92
[2017-11-08] MEDS: QUEtiapine FUMARATE 100 MG TAB PO SCH ×2 (08:24→21:55)
[2017-11-08] MEDS: LISINOPRIL 10 MG TAB PO SCH (08:24)
[2017-11-08] MEDS: FLUoxetine HCL 20 MG CAP PO SCH (08:25)
[2017-11-08] MEDS: VALPROIC ACID 250 MG CAP PO SCH ×2 (08:25→21:55)
[2017-11-08] MEDS: ACETAMINOPHEN 325 MG TAB PO PRN (08:27)
--- NOTE | 2017-11-08 09:31 | HHI.PR ---
Subjective Remarks Follow up on unsafe discharge due to cognition. Patient seen and examined lying in bed comfortably in no apparent distress. Sitter at bedside. Patient denies any new acute events overnight. Eating well. Ambulating well. Denies any pain. Objective Vitals Vital Signs Date Time Temp Pulse Resp B/P (MAP) Pulse Ox O2 Delivery O2 Flow Rate FiO2 11/08/17 07:50 97.2 70 20 147/83 (104) 92 11/07/17 20:00 97.3 66 20 136/77 (96) 93 I/O 11/07/17 11/07/17 11/07/17 11/08/17 11/08/17 11/08/17 07:00 15:00 23:00 07:00 15:00 23:00 Intake Total 480 ml 222 ml 240 ml Balance 480 ml 222 ml 240 ml Intake Oral 480 ml 222 ml 240 ml # Voids 3 4 2 # Bowel Movements 1 0 Imaging Last Impressions Knee X-Ray 11/02/17 0000 Signed Impressions: Service Date/Time: Thursday, November 02, 2017 18:51 - CONCLUSION: Intact right knee. Jovany Hayes MD Head CT 11/02/17 0000 Signed Impressions: Service Date/Time: Thursday, November 02, 2017 18:35 - CONCLUSION: 1. No bleed or other acute intracranial abnormality. 2. Previously seen intracranial hemorrhage has resolved. A small area of chronic encephalomalacia has developed of the right frontal lobe. 3. Chronic periventricular white matter changes are again noted. Jovany Hayes MD Breast Ultrasound 10/15/17 0000 Signed Impressions: Service Date/Time: Sunday, October 15, 2017 09:06 - CONCLUSION: Persistent subcutaneous collection at the 12:00 position of the right breast. It has slightly decreased in size since the study dated 09/23/2017 and could represent an infectious process. Consider followup to confirm resolution. Jovany Quezada MD Chest X-Ray 09/03/17 0000 Signed Impressions: Service Date/Time: Sunday, September 03, 2017 17:02 - CONCLUSION: 1. Mild edema pattern. Subsegmental basilar airspace disease most characteristic of atelectasis.. Fadi Carolina MD Cervical Spine CT 09/02/17 0000 Signed Impressions: Service Date/Time: August 12:56 - CONCLUSION: Postsurgical changes from anterior cervical plate at C6-7. No evidence of compression deformity or spondylolisthesis. Arun Regan MD Pelvis X-Ray 06/30/17 0000 Signed Impressions: Service Date/Time: Wednesday, June 30, 2017 12:17 - CONCLUSION: No significant change has occurred. Carlos Capps MD Objective Remarks GENERAL: Well-nourished, well-developed female lying in bed in [facility]. SKIN: Warm and dry. No rash. Right breast abscess improving. Erythema resolved. No drainage. No pain to site. Right knee abrasion, scabbed. HEENT: Normocephalic. Atraumatic. Pupils equal and round. No scleral icterus. No injection or drainage. No nasal bleeding or discharge. Mucous membranes pink and moist. NECK: Supple. Trachea midline. CARDIOVASCULAR: Regular rate and rhythm. S1, S2 noted. No murmur appreciated. RESPIRATORY: No accessory muscle use. Clear to auscultation. Breath sounds equal bilaterally. GASTROINTESTINAL: Abdomen soft, non-tender, nondistended. Normoactive bowel sounds x4. No guarding noted. MUSCULOSKELETAL: No obvious deformities. Extremities without clubbing, cyanosis , or edema. NEUROLOGICAL: Awake and alert. No obvious cranial nerve deficits. Motor grossly within normal limits. 5/5 muscle strength in bilateral upper and lower extremities. Normal speech. PSYCHIATRIC: Appropriate mood and affect. A/P Problem List: (1) Alcohol dependence in controlled environment ICD Code: F10.20 - Alcohol dependence, uncomplicated Status: Chronic (2) Facial injury ICD Code: S09.93XA - Unspecified injury of face, initial encounter Status: Acute (3) Fall ICD Code: W19.XXXA - Unspecified fall, initial encounter Status: Acute (4) Hypertension ICD Code: I10 - Essential (primary) hypertension Status: Acute (5) Pelvic fracture ICD Code: S32.9XXA - Fracture of unspecified parts of lumbosacral spine and pelvis, initial encounter for closed fracture Status: Acute (6) C1-C2 subluxation ICD Code: S13.120A - Subluxation of C1/C2 cervical vertebrae, initial encounter Status: Acute (7) C6 cervical fracture ICD Code: S12.500A - Unspecified displaced fracture of sixth cervical vertebra , initial encounter for closed fracture Status: Acute (8) Traumatic brain injury ICD Code: S06.9X9A - Unspecified intracranial injury with loss of consciousness of unspecified duration, initial encounter Status: Acute (9) Nasal fracture ICD Code: S02.2XXA - Fracture of nasal bones, initial encounter for closed fracture Status: Acute (10) Mild neurocognitive disorder ICD Code: G31.84 - Mild cognitive impairment, so stated Status: Acute (11) Intracranial bleed ICD Code: I62.9 - Nontraumatic intracranial hemorrhage, unspecified Status: Acute Assessment and Plan Inability to care for self, unsafe discharge due to cognition Initially he was indicated patient cannot walk, patient is walking at this time, PT and OT recommending supervision at home for safety Speech therapy following the patient intermittently for cognitive evaluations. MOCA score 20/30, she needs to have supervision Psychiatry indicates that secondary to her frontal lobe injury her cognition changes on a daily basis. Mini mental state 28/30, recommended avoid antipsychotics for benzodiazepine. Recommending Depakote or carbamazepine Patient is medically stable for discharge, however due to underlying psychiatric/cognition patient is unsafe discharge until arrangements made by case management Case management for discharge planning Neuropsychiatry evaluated the patient recommended patient may improve with treatment, however indicates avoid benzodiazepines and antipsychotics Continue Prozac 40 mg daily, Depakene 500 mg twice daily and Seroquel 50 mg every 8 hours *Discussed with psychiatry again about patient's cognition issues. He indicated that the patient lacks capacity for signing AMA or to participate in discharge plan. He is recommending that he would invite the ethics committee to the hospital to have a discussion about patient care. * Consulted case management for ethics committee review, awaiting response Fall, 10/23/[address] obtained and reviewed showing no acute fracture or bleed. Right knee x-ray showing no fracture. Orthostatic BPs unremarkable. Continue to monitor neuro status closely. No further fall incidences. No further dizziness. Multiple traumatic injuries Patient laceration, subdural hemorrhage, ventricular hemorrhage, nasal fracture, C6 fracture, C1-C2 subluxation, C4 transverse process fracture, right rib fracture, L1 transverse process fracture, right pubic rami fracture Continue c-collar this time, however patient does not wear Specialist no longer following patient, patient will require outpatient follow-up if discharge Right breast abscess, Improved. Physical exam shows improvement. Ultrasound does show complex loculated collection measuring 2.4 x 1.7 x 1.8 cm. Representing breast abscess Status post Augmentin 500 mg twice daily for 10 days (end date 10/25/17). Finished Bactrim DS for 18 days Gen. surgery consulted who recommends no intervention at this time. Soft tissue ultrasound shows a improvement of the fluid collection. Hypertension Blood pressures more controlled at this time. Will continue to monitor. Amlodipine 10 mg daily lisinopril 10 mg daily DVT prevention Patient ambulating Sequential compression devices while in bed Records were reviewed. Awaiting case management for discharge planning, No change in current treatment plan. Discharge Planning Patient is medically stable for discharge, however due to underlying psychiatric /cognition patient is unsafe discharge until arrangements made by case management. Problem Qualifiers (1) Hypertension: Qualified Codes: I10 - Essential (primary) hypertension Alyssa Means Nov 08, 2017 09:31
[2017-11-08 20:00] VITALS: BP 134/89; PULSE 66; RESP 20; TEMP 97.6; O2SAT 94
[2017-11-09 08:00] VITALS: BP 154/75; PULSE 63; RESP 18; TEMP 97; O2SAT 95
--- NOTE | 2017-11-09 08:33 | HHI.PR ---
Subjective Remarks Patient seen and examined today for follow-up on unsafe discharge due to cognition. Patient doing quite well. Denies any new complaints. No change in clinical status. Vital signs are stable, afebrile Objective Vitals Vital Signs Date Time Temp Pulse Resp B/P (MAP) Pulse Ox O2 Delivery O2 Flow Rate FiO2 11/08/17 20:00 97.6 66 20 134/89 (104) 94 I/O 11/08/17 11/08/17 11/08/17 11/09/17 11/09/17 11/09/17 07:00 15:00 23:00 07:00 15:00 23:00 Intake Total 240 ml 940 ml 520 ml Balance 240 ml 940 ml 520 ml Intake Oral 240 ml 940 ml 520 ml # Voids 2 3 3 # Bowel Movements 0 0 Objective Remarks GENERAL: Well-developed, well-nourished, in no acute distress. alert and orientated waxes and wanes daily HEENT: Head is normocephalic without any lesions or masses noted. Facial features are symmetric. Eyes: Extraocular muscles are intact. Conjunctivae were clear. NECK: C-collar in on table at bedside CARDIAC: Regular rhythm, regular rate. S1/S2 are heard. No murmurs gallops or rubs. LUNGS: Clear to auscultation bilaterally. No wheeze, rhonchi or rales. No use of accessory muscles on inspiration or expiration. ABDOMEN: Soft, nontender. Nondistended. Bowel sounds heard in all 4 quadrants. No organomegaly or masses. Negative rebound, negative guarding EXTREMITIES: No edema, pulses are equal bilaterally. No cyanosis or clubbing NEUROLOGY: Mood and affect appear appropriate. Cranial nerves II through XII grossly intact moving all extremities, speech is clear Urinary Catheter: No Vascular Central Line Catheter: No A/P Assessment and Plan Inability to care for self, unsafe discharge due to cognition Initially he was indicated patient cannot walk, patient is walking at this time, PT and OT recommending supervision at home for safety Speech therapy following the patient intermittently for cognitive evaluations. 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 MIni mental state 28/30, recommended avoid antipsychotics and benzodiazepine. Recommending Depakote or carbamazepine Patient is medically stable for discharge, however due to underlying psychiatric/cognition patient is unsafe discharge until arrangements made by case management Case management for discharge planning Neuropsychiatry evaluated the patient recommended patient may improve with treatment, however indicates avoid benzodiazepines and antipsychotics Continue Prozac 40 mg daily Depakene 500 mg twice daily Seroquel 100 mg twice daily *Discussed with psychiatry again about patient's cognition issues. He indicated that the patient lacks capacity for signing AMA or to participate in discharge plan. He is recommending that he would invite the ethics committee to the hospital to have a discussion about patient care *Consulted case management for ethics committee review, awaiting response Multiple traumatic injuries, Patient laceration, subdural hemorrhage, ventricular hemorrhage, nasal fracture, C6 fracture, C1-C2 subluxation, C4 transverse process fracture, right rib fracture, L1 transverse process fracture, right pubic rami fracture Continue c-collar this time, however patient does not wear Specialist no longer following patient, patient will require outpatient follow-up if discharge Right breast abscess, improved Physical exam patient does have a erythematous area with drainage Ultrasound does show complex loculated collection measuring 2.4 x 1.7 x 1.8 cm. Representing breast abscess Status post Augmentin 500 mg twice daily for 10 days., Bactrim DS for 18 days Gen. surgery consulted who recommends no intervention at this time, Soft tissue ultrasound shows a improvement of the fluid collection. Hypertension, Amlodipine 10 mg daily lisinopril 10 mg daily DVT prevention Patient ambulating Sequential compression devices while in bed Discharge Planning Case management for discharge planning, Conrado Mariee Nov 09, 2017 08:33
[2017-11-09] MEDS: VALPROIC ACID 250 MG CAP PO SCH ×2 (09:02→20:33)
[2017-11-09] MEDS: QUEtiapine FUMARATE 100 MG TAB PO SCH ×2 (09:03→20:33)
[2017-11-09] MEDS: FLUoxetine HCL 20 MG CAP PO SCH (09:03)
[2017-11-09] MEDS: LISINOPRIL 10 MG TAB PO SCH (09:03)
[2017-11-09] MEDS: ACETAMINOPHEN 325 MG TAB PO PRN (13:05)
[2017-11-09 20:00] VITALS: BP 151/89; PULSE 71; RESP 20; TEMP 96.4; O2SAT 98
[2017-11-10 08:00] VITALS: BP 160/73; PULSE 73; RESP 18; TEMP 97.3; O2SAT 95
--- NOTE | 2017-11-10 08:22 | HHI.PR ---
Subjective Remarks Patient seen and examined today in follow-up for a safe discharge due to cognition. Patient states that she is doing well. Denies any new complaints. Blood pressure still elevated today will need to adjust medications. Afebrile. Objective Vitals Vital Signs Date Time Temp Pulse Resp B/P (MAP) Pulse Ox O2 Delivery O2 Flow Rate FiO2 11/09/17 20:00 96.4 71 20 151/89 (109) 98 11/09/17 14:02 18 I/O 11/09/17 11/09/17 11/09/17 11/10/17 11/10/17 11/10/17 07:00 15:00 23:00 07:00 15:00 23:00 Intake Total 520 ml 850 ml 300 ml 240 ml Balance 520 ml 850 ml 300 ml 240 ml Intake Oral 520 ml 850 ml 300 ml 240 ml # Voids 3 4 1 1 # Bowel Movements 0 Objective Remarks GENERAL: Well-developed, well-nourished, in no acute distress. alert and orientated waxes and wanes daily HEENT: Head is normocephalic without any lesions or masses noted. Facial features are symmetric. Eyes: Extraocular muscles are intact. Conjunctivae were clear. NECK: C-collar in on table at bedside CARDIAC: Regular rhythm, regular rate. S1/S2 are heard. No murmurs gallops or rubs. LUNGS: Clear to auscultation bilaterally. No wheeze, rhonchi or rales. No use of accessory muscles on inspiration or expiration. ABDOMEN: Soft, nontender. Nondistended. Bowel sounds heard in all 4 quadrants. No organomegaly or masses. Negative rebound, negative guarding EXTREMITIES: No edema, pulses are equal bilaterally. No cyanosis or clubbing NEUROLOGY: Mood and affect appear appropriate. Cranial nerves II through XII grossly intact moving all extremities, speech is clear Urinary Catheter: No Vascular Central Line Catheter: No A/P Assessment and Plan Inability to care for self, unsafe discharge due to cognition Initially he was indicated patient cannot walk, patient is walking at this time, PT and OT recommending supervision at home for safety Speech therapy following the patient intermittently for cognitive evaluations. 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 MIni mental state 28/30, recommended avoid antipsychotics and benzodiazepine. Recommending Depakote or carbamazepine Patient is medically stable for discharge, however due to underlying psychiatric/cognition patient is unsafe discharge until arrangements made by case management Case management for discharge planning Neuropsychiatry evaluated the patient recommended patient may improve with treatment, however indicates avoid benzodiazepines and antipsychotics Continue Prozac 40 mg daily Depakene 500 mg twice daily Seroquel 100 mg twice daily *Discussed with psychiatry again about patient's cognition issues. He indicated that the patient lacks capacity for signing AMA or to participate in discharge plan. He is recommending that he would invite the ethics committee to the hospital to have a discussion about patient care *Consulted case management for ethics committee review, awaiting response Multiple traumatic injuries, Patient laceration, subdural hemorrhage, ventricular hemorrhage, nasal fracture, C6 fracture, C1-C2 subluxation, C4 transverse process fracture, right rib fracture, L1 transverse process fracture, right pubic rami fracture Continue c-collar this time, however patient does not wear Specialist no longer following patient, patient will require outpatient follow-up if discharge Right breast abscess, improved Physical exam patient does have a erythematous area with drainage Ultrasound does show complex loculated collection measuring 2.4 x 1.7 x 1.8 cm. Representing breast abscess Status post Augmentin 500 mg twice daily for 10 days., Bactrim DS for 18 days Gen. surgery consulted who recommends no intervention at this time, Soft tissue ultrasound shows a improvement of the fluid collection. Hypertension, uncontrolled Amlodipine 10 mg daily lisinopril 10 mg twice daily DVT prevention Patient ambulating Sequential compression devices while in bed Discharge Planning Case management for discharge planning, Conrado Mariee Nov 10, 2017 08:22
[2017-11-10] MEDS: VALPROIC ACID 250 MG CAP PO SCH ×2 (09:35→20:44)
[2017-11-10] MEDS: QUEtiapine FUMARATE 100 MG TAB PO SCH ×2 (09:35→20:44)
[2017-11-10] MEDS: FLUoxetine HCL 20 MG CAP PO SCH (09:35)
[2017-11-10] MEDS: LISINOPRIL 10 MG TAB PO SCH ×2 (09:35→20:45)
[2017-11-10] MEDS: ACETAMINOPHEN 325 MG TAB PO PRN (09:35)
[2017-11-10 20:00] VITALS: BP 144/96; PULSE 72; RESP 20; TEMP 96.7; O2SAT 94
--- NOTE | 2017-11-11 07:49 | HHI.PR ---
Subjective Remarks Patient seen and examined today for follow-up on unsafe discharge due to cognition. Patient resting currently. Denies any new complaints. No change in clinical status. Objective Vitals Vital Signs Date Time Temp Pulse Resp B/P (MAP) Pulse Ox O2 Delivery O2 Flow Rate FiO2 11/10/17 20:00 96.7 72 20 144/96 (112) 94 11/10/17 10:41 18 11/10/17 08:00 97.3 73 18 160/73 (102) 95 I/O 11/10/17 11/10/17 11/10/17 11/11/17 11/11/17 11/11/17 07:00 15:00 23:00 07:00 15:00 23:00 Intake Total 240 ml 900 ml 60 ml Balance 240 ml 900 ml 60 ml Intake Oral 240 ml 900 ml 60 ml # Voids 1 4 1 # Bowel Movements 1 0 Objective Remarks GENERAL: Well-developed, well-nourished, in no acute distress. alert and orientated waxes and wanes daily HEENT: Head is normocephalic without any lesions or masses noted. Facial features are symmetric. Eyes: Extraocular muscles are intact. Conjunctivae were clear. NECK: C-collar in on table at bedside CARDIAC: Regular rhythm, regular rate. S1/S2 are heard. No murmurs gallops or rubs. LUNGS: Clear to auscultation bilaterally. No wheeze, rhonchi or rales. No use of accessory muscles on inspiration or expiration. ABDOMEN: Soft, nontender. Nondistended. Bowel sounds heard in all 4 quadrants. No organomegaly or masses. Negative rebound, negative guarding EXTREMITIES: No edema, pulses are equal bilaterally. No cyanosis or clubbing NEUROLOGY: Mood and affect appear appropriate. Cranial nerves II through XII grossly intact moving all extremities, speech is clear Urinary Catheter: No Vascular Central Line Catheter: No A/P Assessment and Plan Inability to care for self, unsafe discharge due to cognition Initially he was indicated patient cannot walk, patient is walking at this time, PT and OT recommending supervision at home for safety Speech therapy following the patient intermittently for cognitive evaluations. 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 MIni mental state 28/30, recommended avoid antipsychotics and benzodiazepine. Recommending Depakote or carbamazepine Patient is medically stable for discharge, however due to underlying psychiatric/cognition patient is unsafe discharge until arrangements made by case management Case management for discharge planning Neuropsychiatry evaluated the patient recommended patient may improve with treatment, however indicates avoid benzodiazepines and antipsychotics Continue Prozac 40 mg daily Depakene 500 mg twice daily Seroquel 100 mg twice daily *Discussed with psychiatry again about patient's cognition issues. He indicated that the patient lacks capacity for signing AMA or to participate in discharge plan. He is recommending that he would invite the ethics committee to the hospital to have a discussion about patient care *Consulted case management for ethics committee review, awaiting response Multiple traumatic injuries, Patient laceration, subdural hemorrhage, ventricular hemorrhage, nasal fracture, C6 fracture, C1-C2 subluxation, C4 transverse process fracture, right rib fracture, L1 transverse process fracture, right pubic rami fracture Continue c-collar this time, however patient does not wear Specialist no longer following patient, patient will require outpatient follow-up if discharge Right breast abscess, improved Physical exam patient does have a erythematous area with drainage Ultrasound does show complex loculated collection measuring 2.4 x 1.7 x 1.8 cm. Representing breast abscess Status post Augmentin 500 mg twice daily for 10 days., Bactrim DS for 18 days Gen. surgery consulted who recommends no intervention at this time, Soft tissue ultrasound shows a improvement of the fluid collection. Hypertension, uncontrolled Amlodipine 10 mg daily lisinopril 10 mg twice daily DVT prevention Patient ambulating Sequential compression devices while in bed Patient's record reviewed, no change in current treatment plan, awaiting case management for discharge planning Discharge Planning Case management for discharge planning, Conrado Mariee Nov 11, 2017 07:49
[2017-11-11 08:00] VITALS: BP 159/98; PULSE 55; RESP 14; TEMP 96.8; O2SAT 96
[2017-11-11] MEDS: VALPROIC ACID 250 MG CAP PO SCH ×2 (10:57→20:34)
[2017-11-11] MEDS: QUEtiapine FUMARATE 100 MG TAB PO SCH ×2 (10:57→20:33)
[2017-11-11] MEDS: LISINOPRIL 10 MG TAB PO SCH ×2 (10:57→20:34)
[2017-11-11] MEDS: FLUoxetine HCL 20 MG CAP PO SCH (10:58)
[2017-11-11] MEDS: ACETAMINOPHEN 325 MG TAB PO PRN (15:51)
[2017-11-12 08:00] VITALS: BP 144/93; PULSE 70; RESP 16; TEMP 97.4; O2SAT 93
--- NOTE | 2017-11-12 08:17 | HHI.PR ---
Subjective Remarks Patient seen and examined today for follow-up on unsafe discharge due to cognition. Patient denies any new complaints. Filled out paperwork, requested by case management yesterday Objective Vitals Vital Signs Date Time Temp Pulse Resp B/P (MAP) Pulse Ox O2 Delivery O2 Flow Rate FiO2 11/11/17 16:56 18 I/O 11/11/17 11/11/17 11/11/17 11/12/17 11/12/17 11/12/17 07:00 15:00 23:00 07:00 15:00 23:00 Intake Total 60 ml 444 ml 222 ml 240 ml Balance 60 ml 444 ml 222 ml 240 ml Intake Oral 60 ml 444 ml 222 ml 240 ml # Voids 1 5 1 # Bowel Movements 0 0 0 Objective Remarks GENERAL: Well-developed, well-nourished, in no acute distress. alert and orientated waxes and wanes daily HEENT: Head is normocephalic without any lesions or masses noted. Facial features are symmetric. Eyes: Extraocular muscles are intact. Conjunctivae were clear. NECK: C-collar in on table at bedside CARDIAC: Regular rhythm, regular rate. S1/S2 are heard. No murmurs gallops or rubs. LUNGS: Clear to auscultation bilaterally. No wheeze, rhonchi or rales. No use of accessory muscles on inspiration or expiration. ABDOMEN: Soft, nontender. Nondistended. Bowel sounds heard in all 4 quadrants. No organomegaly or masses. Negative rebound, negative guarding EXTREMITIES: No edema, pulses are equal bilaterally. No cyanosis or clubbing NEUROLOGY: Mood and affect appear appropriate. Cranial nerves II through XII grossly intact moving all extremities, speech is clear Urinary Catheter: No Vascular Central Line Catheter: No A/P Assessment and Plan Inability to care for self, unsafe discharge due to cognition Initially he was indicated patient cannot walk, patient is walking at this time, PT and OT recommending supervision at home for safety Speech therapy following the patient intermittently for cognitive evaluations. 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 MIni mental state 28/30, recommended avoid antipsychotics and benzodiazepine. Recommending Depakote or carbamazepine Patient is medically stable for discharge, however due to underlying psychiatric/cognition patient is unsafe discharge until arrangements made by case management Case management for discharge planning Neuropsychiatry evaluated the patient recommended patient may improve with treatment, however indicates avoid benzodiazepines and antipsychotics Continue Prozac 40 mg daily Depakene 500 mg twice daily Seroquel 100 mg twice daily *Discussed with psychiatry again about patient's cognition issues. He indicated that the patient lacks capacity for signing AMA or to participate in discharge plan. He is recommending that he would invite the ethics committee to the hospital to have a discussion about patient care *Consulted case management for ethics committee review, awaiting response Multiple traumatic injuries, Patient laceration, subdural hemorrhage, ventricular hemorrhage, nasal fracture, C6 fracture, C1-C2 subluxation, C4 transverse process fracture, right rib fracture, L1 transverse process fracture, right pubic rami fracture Continue c-collar this time, however patient does not wear Specialist no longer following patient, patient will require outpatient follow-up if discharge Right breast abscess, improved Physical exam patient does have a erythematous area with drainage Ultrasound does show complex loculated collection measuring 2.4 x 1.7 x 1.8 cm. Representing breast abscess Status post Augmentin 500 mg twice daily for 10 days., Bactrim DS for 18 days Gen. surgery consulted who recommends no intervention at this time, Soft tissue ultrasound shows a improvement of the fluid collection. Hypertension, uncontrolled Amlodipine 10 mg daily lisinopril 10 mg twice daily DVT prevention Patient ambulating Sequential compression devices while in bed Patient's record reviewed, awaiting case management for discharge planning. no change in current treatment plan, Discharge Planning Case management for discharge planning, Conrado Mariee Nov 12, 2017 08:17
[2017-11-12] MEDS: FLUoxetine HCL 20 MG CAP PO SCH (10:01)
[2017-11-12] MEDS: QUEtiapine FUMARATE 100 MG TAB PO SCH ×2 (10:01→20:23)
[2017-11-12] MEDS: VALPROIC ACID 250 MG CAP PO SCH ×2 (10:02→20:22)
[2017-11-12] MEDS: LISINOPRIL 10 MG TAB PO SCH ×2 (10:02→20:22)
[2017-11-12 12:00] VITALS: BP 107/84; PULSE 88; RESP 15; TEMP 96.8; O2SAT 96
[2017-11-12 16:00] VITALS: BP 126/84; PULSE 80; RESP 15; TEMP 96; O2SAT 96
[2017-11-12 20:35] VITALS: BP 124/85; PULSE 77; RESP 20; TEMP 95.7; O2SAT 96
--- NOTE | 2017-11-13 08:35 | HHI.PR ---
Subjective Remarks patient seen and examined today for follow-up on unsafe discharge due to cognition. Patient resting comfortably in bed. Patient denies any new complaints. Awaiting case management for discharge planning. Vital signs are stable, afebrile Objective Vitals Vital Signs Date Time Temp Pulse Resp B/P (MAP) Pulse Ox O2 Delivery O2 Flow Rate FiO2 11/12/17 20:35 95.7 77 20 124/85 (98) 96 11/12/17 16:00 96.0 80 15 126/84 (98) 96 11/12/17 12:00 96.8 88 15 107/84 (92) 96 I/O 11/12/17 11/12/17 11/12/17 11/13/17 11/13/17 11/13/17 07:00 15:00 23:00 07:00 15:00 23:00 Intake Total 240 ml 240 ml Balance 240 ml 240 ml Intake Oral 240 ml 240 ml # Voids 1 1 3 # Bowel Movements 0 Objective Remarks GENERAL: Well-developed, well-nourished, in no acute distress. alert and orientated waxes and wanes daily HEENT: Head is normocephalic without any lesions or masses noted. Facial features are symmetric. Eyes: Extraocular muscles are intact. Conjunctivae were clear. NECK: C-collar in on table at bedside CARDIAC: Regular rhythm, regular rate. S1/S2 are heard. No murmurs gallops or rubs. LUNGS: Clear to auscultation bilaterally. No wheeze, rhonchi or rales. No use of accessory muscles on inspiration or expiration. ABDOMEN: Soft, nontender. Nondistended. Bowel sounds heard in all 4 quadrants. No organomegaly or masses. Negative rebound, negative guarding EXTREMITIES: No edema, pulses are equal bilaterally. No cyanosis or clubbing NEUROLOGY: Mood and affect appear appropriate. Cranial nerves II through XII grossly intact moving all extremities, speech is clear Urinary Catheter: No Vascular Central Line Catheter: No A/P Assessment and Plan Inability to care for self, unsafe discharge due to cognition Initially he was indicated patient cannot walk, patient is walking at this time, PT and OT recommending supervision at home for safety Speech therapy following the patient intermittently for cognitive evaluations. 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 MIni mental state 28/30, recommended avoid antipsychotics and benzodiazepine. Recommending Depakote or carbamazepine Patient is medically stable for discharge, however due to underlying psychiatric/cognition patient is unsafe discharge until arrangements made by case management Case management for discharge planning Neuropsychiatry evaluated the patient recommended patient may improve with treatment, however indicates avoid benzodiazepines and antipsychotics Continue Prozac 40 mg daily Depakene 500 mg twice daily Seroquel 100 mg twice daily *Discussed with psychiatry again about patient's cognition issues. He indicated that the patient lacks capacity for signing AMA or to participate in discharge plan. He is recommending that he would invite the ethics committee to the hospital to have a discussion about patient care *Consulted case management for ethics committee review, awaiting response Multiple traumatic injuries, Patient laceration, subdural hemorrhage, ventricular hemorrhage, nasal fracture, C6 fracture, C1-C2 subluxation, C4 transverse process fracture, right rib fracture, L1 transverse process fracture, right pubic rami fracture Continue c-collar this time, however patient does not wear Follow-up cervical spine CT 1026/17 indicates no evidence of acute fracture. Postsurgical changes Specialist no longer following patient, patient will require outpatient follow-up if discharge Right breast abscess, improved Physical exam patient does have a erythematous area with drainage Ultrasound does show complex loculated collection measuring 2.4 x 1.7 x 1.8 cm. Representing breast abscess Status post Augmentin 500 mg twice daily for 10 days., Bactrim DS for 18 days Gen. surgery consulted who recommends no intervention at this time, Soft tissue ultrasound shows a improvement of the fluid collection. Hypertension, uncontrolled Amlodipine 10 mg daily lisinopril 10 mg twice daily DVT prevention Patient ambulating Sequential compression devices while in bed Patient's record reviewed, no change in current treatment plan, awaiting case management for discharge planning. Discharge Planning Case management for discharge planning, Conrado Mariee Nov 13, 2017 08:35
[2017-11-13 08:57] VITALS: BP 133/77; PULSE 70; RESP 16; TEMP 97.1; O2SAT 93
[2017-11-13] MEDS: LISINOPRIL 10 MG TAB PO SCH ×2 (09:43→20:05)
[2017-11-13] MEDS: QUEtiapine FUMARATE 100 MG TAB PO SCH ×2 (09:43→20:05)
[2017-11-13] MEDS: FLUoxetine HCL 20 MG CAP PO SCH (09:43)
[2017-11-13] MEDS: VALPROIC ACID 250 MG CAP PO SCH ×2 (09:44→20:06)
[2017-11-13 19:52] VITALS: BP 143/87; PULSE 63; RESP 18; TEMP 97.1; O2SAT 96
[2017-11-14] MEDS: VALPROIC ACID 250 MG CAP PO SCH ×2 (07:50→19:54)
[2017-11-14] MEDS: QUEtiapine FUMARATE 100 MG TAB PO SCH ×2 (07:53→19:54)
[2017-11-14] MEDS: LISINOPRIL 10 MG TAB PO SCH ×2 (07:53→19:54)
[2017-11-14] MEDS: FLUoxetine HCL 20 MG CAP PO SCH (07:53)
[2017-11-14 08:00] VITALS: BP 159/82; PULSE 63; RESP 18; TEMP 97.2; O2SAT 95
--- NOTE | 2017-11-14 09:45 | HHI.PR ---
Subjective Remarks Patient seen and examined today for follow-up on unsafe discharge due to cognition. Patient denies any new complaints. No change in clinical status. Awaiting case management for discharge planning Objective Vitals Vital Signs Date Time Temp Pulse Resp B/P (MAP) Pulse Ox O2 Delivery O2 Flow Rate FiO2 11/14/17 08:00 97.2 63 18 159/82 (107) 95 11/13/17 22:05 11/13/17 19:52 97.1 63 18 143/87 (105) 96 I/O 11/13/17 11/13/17 11/13/17 11/14/17 11/14/17 11/14/17 07:00 15:00 23:00 07:00 15:00 23:00 Intake Total 240 ml Balance 240 ml Intake Oral 240 ml # Voids 3 1 3 # Bowel Movements 0 1 Objective Remarks GENERAL: Well-developed, well-nourished, in no acute distress. alert and orientated waxes and wanes daily HEENT: Head is normocephalic without any lesions or masses noted. Facial features are symmetric. Eyes: Extraocular muscles are intact. Conjunctivae were clear. NECK: C-collar in on table at bedside CARDIAC: Regular rhythm, regular rate. S1/S2 are heard. No murmurs gallops or rubs. LUNGS: Clear to auscultation bilaterally. No wheeze, rhonchi or rales. No use of accessory muscles on inspiration or expiration. ABDOMEN: Soft, nontender. Nondistended. Bowel sounds heard in all 4 quadrants. No organomegaly or masses. Negative rebound, negative guarding EXTREMITIES: No edema, pulses are equal bilaterally. No cyanosis or clubbing NEUROLOGY: Mood and affect appear appropriate. Cranial nerves II through XII grossly intact moving all extremities, speech is clear Urinary Catheter: No Vascular Central Line Catheter: No A/P Assessment and Plan Inability to care for self, unsafe discharge due to cognition Initially he was indicated patient cannot walk, patient is walking at this time, PT and OT recommending supervision at home for safety Speech therapy following the patient intermittently for cognitive evaluations. 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 MIni mental state 28/30, recommended avoid antipsychotics and benzodiazepine. Recommending Depakote or carbamazepine Patient is medically stable for discharge, however due to underlying psychiatric/cognition patient is unsafe discharge until arrangements made by case management Case management for discharge planning Neuropsychiatry evaluated the patient recommended patient may improve with treatment, however indicates avoid benzodiazepines and antipsychotics Continue Prozac 40 mg daily Depakene 500 mg twice daily Seroquel 100 mg twice daily *Discussed with psychiatry again about patient's cognition issues. He indicated that the patient lacks capacity for signing AMA or to participate in discharge plan. He is recommending that he would invite the ethics committee to the hospital to have a discussion about patient care *Consulted case management for ethics committee review, awaiting response Multiple traumatic injuries, Patient laceration, subdural hemorrhage, ventricular hemorrhage, nasal fracture, C6 fracture, C1-C2 subluxation, C4 transverse process fracture, right rib fracture, L1 transverse process fracture, right pubic rami fracture Continue c-collar this time, however patient does not wear Follow-up cervical spine CT 1026/17 indicates no evidence of acute fracture. Postsurgical changes Specialist no longer following patient, patient will require outpatient follow-up if discharge Right breast abscess, improved Physical exam patient does have a erythematous area with drainage Ultrasound does show complex loculated collection measuring 2.4 x 1.7 x 1.8 cm. Representing breast abscess Status post Augmentin 500 mg twice daily for 10 days., Bactrim DS for 18 days Gen. surgery consulted who recommends no intervention at this time, Soft tissue ultrasound shows a improvement of the fluid collection. Hypertension, uncontrolled Amlodipine 10 mg daily lisinopril 10 mg twice daily DVT prevention Patient ambulating Sequential compression devices while in bed Patient's record reviewed, awaiting case management for discharge planning. no change in current treatment plan, Discharge Planning Case management for discharge planning, Conrado Mariee Nov 14, 2017 09:45
[2017-11-14 19:55] VITALS: BP 138/83; PULSE 68; RESP 20; TEMP 96.8; O2SAT 93
[2017-11-15 08:00] VITALS: BP 143/84; PULSE 70; RESP 20; TEMP 98; O2SAT 94
--- NOTE | 2017-11-15 08:31 | HHI.PR ---
Subjective Remarks Patient seen and examined today for follow-up on unsafe discharge due to cognition. Patient denies any new complaints. Afebrile Objective Vitals Vital Signs Date Time Temp Pulse Resp B/P (MAP) Pulse Ox O2 Delivery O2 Flow Rate FiO2 11/14/17 19:55 96.8 68 20 138/83 (101) 93 I/O 11/14/17 11/14/17 11/14/17 11/15/17 11/15/17 11/15/17 07:00 15:00 23:00 07:00 15:00 23:00 Intake Total 240 ml 950 ml 240 ml 0 ml Balance 240 ml 950 ml 240 ml 0 ml Intake Oral 240 ml 950 ml 240 ml 0 ml # Voids 3 4 2 0 # Bowel Movements 1 0 Objective Remarks GENERAL: Well-developed, well-nourished, in no acute distress. alert and orientated waxes and wanes daily HEENT: Head is normocephalic without any lesions or masses noted. Facial features are symmetric. Eyes: Extraocular muscles are intact. Conjunctivae were clear. NECK: C-collar in on table at bedside CARDIAC: Regular rhythm, regular rate. S1/S2 are heard. No murmurs gallops or rubs. LUNGS: Clear to auscultation bilaterally. No wheeze, rhonchi or rales. No use of accessory muscles on inspiration or expiration. ABDOMEN: Soft, nontender. Nondistended. Bowel sounds heard in all 4 quadrants. No organomegaly or masses. Negative rebound, negative guarding EXTREMITIES: No edema, pulses are equal bilaterally. No cyanosis or clubbing NEUROLOGY: Mood and affect appear appropriate. Cranial nerves II through XII grossly intact moving all extremities, speech is clear Urinary Catheter: No Vascular Central Line Catheter: No A/P Assessment and Plan Inability to care for self, unsafe discharge due to cognition Initially he was indicated patient cannot walk, patient is walking at this time, PT and OT recommending supervision at home for safety Speech therapy following the patient intermittently for cognitive evaluations. 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 MIni mental state 28/30, recommended avoid antipsychotics and benzodiazepine. Recommending Depakote or carbamazepine Patient is medically stable for discharge, however due to underlying psychiatric/cognition patient is unsafe discharge until arrangements made by case management Case management for discharge planning Neuropsychiatry evaluated the patient recommended patient may improve with treatment, however indicates avoid benzodiazepines and antipsychotics Continue Prozac 40 mg daily Depakene 500 mg twice daily Seroquel 100 mg twice daily *Discussed with psychiatry again about patient's cognition issues. He indicated that the patient lacks capacity for signing AMA or to participate in discharge plan. He is recommending that he would invite the ethics committee to the hospital to have a discussion about patient care *Consulted case management for ethics committee review, awaiting response Multiple traumatic injuries, Patient laceration, subdural hemorrhage, ventricular hemorrhage, nasal fracture, C6 fracture, C1-C2 subluxation, C4 transverse process fracture, right rib fracture, L1 transverse process fracture, right pubic rami fracture Continue c-collar this time, however patient does not wear Follow-up cervical spine CT indicates no evidence of acute fracture. Postsurgical changes Specialist no longer following patient, patient will require outpatient follow-up if discharge Right breast abscess, improved Physical exam patient does have a erythematous area with drainage Ultrasound does show complex loculated collection measuring 2.4 x 1.7 x 1.8 cm. Representing breast abscess Status post Augmentin 500 mg twice daily for 10 days., Bactrim DS for 18 days Gen. surgery consulted who recommends no intervention at this time, Soft tissue ultrasound shows a improvement of the fluid collection. Hypertension, uncontrolled Amlodipine 10 mg daily lisinopril 10 mg twice daily DVT prevention Patient ambulating Sequential compression devices while in bed Patient's record reviewed, no change in current treatment plan, awaiting case management for discharge planning. Discharge Planning Case management for discharge planning, Conrado Mariee Nov 15, 2017 08:30
[2017-11-15] MEDS: FLUoxetine HCL 20 MG CAP PO SCH (11:29)
[2017-11-15] MEDS: VALPROIC ACID 250 MG CAP PO SCH ×2 (11:29→20:49)
[2017-11-15] MEDS: LISINOPRIL 10 MG TAB PO SCH ×2 (11:30→20:49)
[2017-11-15] MEDS: QUEtiapine FUMARATE 100 MG TAB PO SCH ×2 (11:30→20:49)
[2017-11-15] MEDS: ACETAMINOPHEN 325 MG TAB PO PRN (17:05)
[2017-11-15 22:48] VITALS: BP 148/88; PULSE 56; RESP 20; TEMP 96.7; O2SAT 93
--- NOTE | 2017-11-16 07:41 | HHI.PR ---
Subjective Remarks Follow-up on unsafe discharge due to cognition. Patient seen and examined, sitting up in bed comfortably in no apparent distress. She denies any new acute events overnight. Denies pain. Denies any recent fever, chills, headache, cough , ab pain, n/v/d. Afebrile. Objective Vitals Vital Signs Date Time Temp Pulse Resp B/P (MAP) Pulse Ox O2 Delivery O2 Flow Rate FiO2 11/15/17 22:48 96.7 56 20 148/88 (108) 93 11/15/17 18:20 18 11/15/17 08:00 98.0 70 20 143/84 (103) 94 I/O 11/15/17 11/15/17 11/15/17 11/16/17 11/16/17 11/16/17 07:00 15:00 23:00 07:00 15:00 23:00 Intake Total 0 ml 360 ml 240 ml Balance 0 ml 360 ml 240 ml Intake Oral 0 ml 360 ml 240 ml # Voids 0 4 1 # Bowel Movements 0 1 Imaging Last Impressions Knee X-Ray 11/02/17 0000 Signed Impressions: Service Date/Time: Thursday, November 02, 2017 18:51 - CONCLUSION: Intact right knee. Jovany Hayes MD Head CT 11/02/17 0000 Signed Impressions: Service Date/Time: Thursday, November 02, 2017 18:35 - CONCLUSION: 1. No bleed or other acute intracranial abnormality. 2. Previously seen intracranial hemorrhage has resolved. A small area of chronic encephalomalacia has developed of the right frontal lobe. 3. Chronic periventricular white matter changes are again noted. Jovany Hayes MD Breast Ultrasound 10/15/17 0000 Signed Impressions: Service Date/Time: Sunday, October 15, 2017 09:06 - CONCLUSION: Persistent subcutaneous collection at the 12:00 position of the right breast. It has slightly decreased in size since the study dated 09/23/2017 and could represent an infectious process. Consider followup to confirm resolution. Jovany Quezada MD Chest X-Ray 09/03/17 0000 Signed Impressions: Service Date/Time: Sunday, September 03, 2017 17:02 - CONCLUSION: 1. Mild edema pattern. Subsegmental basilar airspace disease most characteristic of atelectasis.. Fadi Carolina MD Cervical Spine CT 09/02/17 0000 Signed Impressions: Service Date/Time: August 12:56 - CONCLUSION: Postsurgical changes from anterior cervical plate at C6-7. No evidence of compression deformity or spondylolisthesis. Arun Regan MD Pelvis X-Ray 06/30/17 0000 Signed Impressions: Service Date/Time: Friday, June 30, 2017 12:17 - CONCLUSION: No significant change has occurred. Carlos Capps MD Objective Remarks GENERAL: Well-nourished, well-developed female lying in bed in [facility]. SKIN: Warm and dry. No rash. Right breast abscess improving. Erythema resolved. No drainage. No pain to site. Right knee abrasion, scabbed. HEENT: Normocephalic. Atraumatic. Pupils equal and round. No scleral icterus. No injection or drainage. No nasal bleeding or discharge. Mucous membranes pink and moist. NECK: Supple. Trachea midline. CARDIOVASCULAR: Regular rate and rhythm. S1, S2 noted. No murmur appreciated. RESPIRATORY: No accessory muscle use. Clear to auscultation. Breath sounds equal bilaterally. GASTROINTESTINAL: Abdomen soft, non-tender, nondistended. Normoactive bowel sounds x4. No guarding noted. MUSCULOSKELETAL: No obvious deformities. Extremities without clubbing, cyanosis , or edema. NEUROLOGICAL: Awake and alert. No obvious cranial nerve deficits. Motor grossly within normal limits. 5/5 muscle strength in bilateral upper and lower extremities. Normal speech. PSYCHIATRIC: Appropriate mood and affect. A/P Problem List: (1) Alcohol dependence in controlled environment ICD Code: F10.20 - Alcohol dependence, uncomplicated Status: Chronic (2) Facial injury ICD Code: S09.93XA - Unspecified injury of face, initial encounter Status: Acute (3) Fall ICD Code: W19.XXXA - Unspecified fall, initial encounter Status: Acute (4) Hypertension ICD Code: I10 - Essential (primary) hypertension Status: Acute (5) Pelvic fracture ICD Code: S32.9XXA - Fracture of unspecified parts of lumbosacral spine and pelvis, initial encounter for closed fracture Status: Acute (6) C1-C2 subluxation ICD Code: S13.120A - Subluxation of C1/C2 cervical vertebrae, initial encounter Status: Acute (7) C6 cervical fracture ICD Code: S12.500A - Unspecified displaced fracture of sixth cervical vertebra , initial encounter for closed fracture Status: Acute (8) Traumatic brain injury ICD Code: S06.9X9A - Unspecified intracranial injury with loss of consciousness of unspecified duration, initial encounter Status: Acute (9) Nasal fracture ICD Code: S02.2XXA - Fracture of nasal bones, initial encounter for closed fracture Status: Acute (10) Mild neurocognitive disorder ICD Code: G31.84 - Mild cognitive impairment, so stated Status: Acute (11) Intracranial bleed ICD Code: I62.9 - Nontraumatic intracranial hemorrhage, unspecified Status: Acute Assessment and Plan Inability to care for self, unsafe discharge due to cognition Initially he was indicated patient cannot walk, patient is walking at this time, PT and OT recommending supervision at home for safety Speech therapy following the patient intermittently for cognitive evaluations. MOCA score 20/30, she needs to have supervision Psychiatry indicates that secondary to her frontal lobe injury her cognition changes on a daily basis. Mini mental state 28/30, recommended avoid antipsychotics for benzodiazepine. Recommending Depakote or carbamazepine Patient is medically stable for discharge, however due to underlying psychiatric/cognition patient is unsafe discharge until arrangements made by case management Case management for discharge planning Neuropsychiatry evaluated the patient recommended patient may improve with treatment, however indicates avoid benzodiazepines and antipsychotics Continue Prozac 40 mg daily, Depakene 500 mg twice daily and Seroquel 50 mg every 8 hours *Discussed with psychiatry again about patient's cognition issues. He indicated that the patient lacks capacity for signing AMA or to participate in discharge plan. He is recommending that he would invite the ethics committee to the hospital to have a discussion about patient care. * Consulted case management for ethics committee review, awaiting response Multiple traumatic injuries Patient laceration, subdural hemorrhage, ventricular hemorrhage, nasal fracture, C6 fracture, C1-C2 subluxation, C4 transverse process fracture, right rib fracture, L1 transverse process fracture, right pubic rami fracture Continue c-collar this time, however patient does not wear Specialist no longer following patient, patient will require outpatient follow-up if discharge Right breast abscess, Improved. Physical exam shows improvement. Ultrasound does show complex loculated collection measuring 2.4 x 1.7 x 1.8 cm. Representing breast abscess Status post Augmentin 500 mg twice daily for 10 days (end date 10/25/17). Finished Bactrim DS for 18 days Gen. surgery consulted who recommends no intervention at this time. Soft tissue ultrasound shows a improvement of the fluid collection. Hypertension Blood pressures more controlled at this time. Will continue to monitor. Amlodipine 10 mg daily lisinopril 10 mg daily Status post fall, 10/23/[address] obtained and reviewed showing no acute fracture or bleed. Right knee x-ray showing no fracture. Orthostatic BPs unremarkable. Continue to monitor neuro status closely. No further fall incidences. No further dizziness. DVT prevention Patient ambulating Sequential compression devices while in bed Records were reviewed. Awaiting case management for discharge planning, No change in current treatment plan. Discharge Planning Patient is medically stable for discharge, however due to underlying psychiatric /cognition patient is unsafe discharge until arrangements made by case management. Problem Qualifiers (1) Hypertension: Qualified Codes: I10 - Essential (primary) hypertension Alyssa Means Nov 16, 2017 07:41
[2017-11-16 08:00] VITALS: BP 151/91; PULSE 61; RESP 20; TEMP 96.7; O2SAT 94
[2017-11-16] MEDS: LISINOPRIL 10 MG TAB PO SCH ×2 (08:11→22:24)
[2017-11-16] MEDS: VALPROIC ACID 250 MG CAP PO SCH ×2 (08:11→22:24)
[2017-11-16] MEDS: FLUoxetine HCL 20 MG CAP PO SCH (08:11)
[2017-11-16] MEDS: QUEtiapine FUMARATE 100 MG TAB PO SCH ×2 (08:11→22:24)
[2017-11-16] MEDS: ACETAMINOPHEN 325 MG TAB PO PRN (11:25)
[2017-11-16 12:00] VITALS: PULSE 86; RESP 16; TEMP 96; O2SAT 94
[2017-11-16 16:00] VITALS: BP 115/84; PULSE 83
[2017-11-16 20:00] VITALS: BP 130/81; PULSE 69; RESP 16; TEMP 97.7; O2SAT 94
[2017-11-17 07:30] VITALS: BP 141/80; PULSE 56; RESP 20; TEMP 96.7; O2SAT 93
--- NOTE | 2017-11-17 09:24 | HHI.PR ---
Subjective Remarks Follow-up an unsafe discharge due to cognition. Patient seen and examined, sleeping in bed. Awakens to voice. Sitter at bedside. No reports of any acute events overnight. Eating well, ambulating well. Denies any pain. Denies any fevers, chills, abdominal pain, nausea, vomiting, diarrhea or dysuria. Afebrile. Vital signs stable. Objective Vitals Vital Signs Date Time Temp Pulse Resp B/P (MAP) Pulse Ox O2 Delivery O2 Flow Rate FiO2 11/17/17 07:30 96.7 56 20 141/80 (100) 93 11/16/17 20:00 97.7 69 16 130/81 (97) 94 11/16/17 16:00 83 115/84 (94) 11/16/17 12:43 18 11/16/17 12:00 96.0 86 16 94 I/O 11/16/17 11/16/17 11/16/17 11/17/17 11/17/17 11/17/17 07:00 15:00 23:00 07:00 15:00 23:00 Intake Total 240 ml 760 ml 180 ml Balance 240 ml 760 ml 180 ml Intake Oral 240 ml 760 ml 180 ml # Voids 1 1 1 # Bowel Movements 1 0 Imaging Last Impressions Knee X-Ray 11/02/17 0000 Signed Impressions: Service Date/Time: Thursday, November 02, 2017 18:51 - CONCLUSION: Intact right knee. Jovany Hayes MD Head CT 11/02/17 0000 Signed Impressions: Service Date/Time: Thursday, November 02, 2017 18:35 - CONCLUSION: 1. No bleed or other acute intracranial abnormality. 2. Previously seen intracranial hemorrhage has resolved. A small area of chronic encephalomalacia has developed of the right frontal lobe. 3. Chronic periventricular white matter changes are again noted. Jovany Hayes MD Breast Ultrasound 10/15/17 0000 Signed Impressions: Service Date/Time: Sunday, October 15, 2017 09:06 - CONCLUSION: Persistent subcutaneous collection at the 12:00 position of the right breast. It has slightly decreased in size since the study dated 09/23/2017 and could represent an infectious process. Consider followup to confirm resolution. Jovany Quezada MD Chest X-Ray 09/03/17 0000 Signed Impressions: Service Date/Time: Sunday, September 03, 2017 17:02 - CONCLUSION: 1. Mild edema pattern. Subsegmental basilar airspace disease most characteristic of atelectasis.. Fadi Carolina MD Cervical Spine CT 09/02/17 0000 Signed Impressions: Service Date/Time: August 12:56 - CONCLUSION: Postsurgical changes from anterior cervical plate at C6-7. No evidence of compression deformity or spondylolisthesis. Arun Regan MD Pelvis X-Ray 06/30/17 0000 Signed Impressions: Service Date/Time: Friday, June 30, 2017 12:17 - CONCLUSION: No significant change has occurred. Carlos Capps MD Objective Remarks GENERAL: Well-nourished, well-developed female lying in bed in [facility]. SKIN: Warm and dry. No rash. Right breast abscess improving. Erythema resolved. No drainage. No pain to site. Right knee abrasion, scabbed. HEENT: Normocephalic. Atraumatic. Pupils equal and round. No scleral icterus. No injection or drainage. No nasal bleeding or discharge. Mucous membranes pink and moist. NECK: Supple. Trachea midline. CARDIOVASCULAR: Regular rate and rhythm. S1, S2 noted. No murmur appreciated. RESPIRATORY: No accessory muscle use. Clear to auscultation. Breath sounds equal bilaterally. GASTROINTESTINAL: Abdomen soft, non-tender, nondistended. Normoactive bowel sounds x4. No guarding noted. MUSCULOSKELETAL: No obvious deformities. Extremities without clubbing, cyanosis , or edema. NEUROLOGICAL: Awake and alert. No obvious cranial nerve deficits. Motor grossly within normal limits. 5/5 muscle strength in bilateral upper and lower extremities. Normal speech. PSYCHIATRIC: Appropriate mood and affect. A/P Problem List: (1) Alcohol dependence in controlled environment ICD Code: F10.20 - Alcohol dependence, uncomplicated Status: Chronic (2) Facial injury ICD Code: S09.93XA - Unspecified injury of face, initial encounter Status: Acute (3) Fall ICD Code: W19.XXXA - Unspecified fall, initial encounter Status: Acute (4) Hypertension ICD Code: I10 - Essential (primary) hypertension Status: Acute (5) Pelvic fracture ICD Code: S32.9XXA - Fracture of unspecified parts of lumbosacral spine and pelvis, initial encounter for closed fracture Status: Acute (6) C1-C2 subluxation ICD Code: S13.120A - Subluxation of C1/C2 cervical vertebrae, initial encounter Status: Acute (7) C6 cervical fracture ICD Code: S12.500A - Unspecified displaced fracture of sixth cervical vertebra , initial encounter for closed fracture Status: Acute (8) Traumatic brain injury ICD Code: S06.9X9A - Unspecified intracranial injury with loss of consciousness of unspecified duration, initial encounter Status: Acute (9) Nasal fracture ICD Code: S02.2XXA - Fracture of nasal bones, initial encounter for closed fracture Status: Acute (10) Mild neurocognitive disorder ICD Code: G31.84 - Mild cognitive impairment, so stated Status: Acute (11) Intracranial bleed ICD Code: I62.9 - Nontraumatic intracranial hemorrhage, unspecified Status: Acute Assessment and Plan Inability to care for self, unsafe discharge due to cognition Initially he was indicated patient cannot walk, patient is walking at this time, PT and OT recommending supervision at home for safety Speech therapy following the patient intermittently for cognitive evaluations. MOCA score 20/30, she needs to have supervision Psychiatry indicates that secondary to her frontal lobe injury her cognition changes on a daily basis. Mini mental state 28/30, recommended avoid antipsychotics for benzodiazepine. Recommending Depakote or carbamazepine Patient is medically stable for discharge, however due to underlying psychiatric/cognition patient is unsafe discharge until arrangements made by case management Case management for discharge planning Neuropsychiatry evaluated the patient recommended patient may improve with treatment, however indicates avoid benzodiazepines and antipsychotics Continue Prozac 40 mg daily, Depakene 500 mg twice daily and Seroquel 50 mg every 8 hours *Discussed with psychiatry again about patient's cognition issues. He indicated that the patient lacks capacity for signing AMA or to participate in discharge plan. He is recommending that he would invite the ethics committee to the hospital to have a discussion about patient care. * Consulted case management for ethics committee review, awaiting response Multiple traumatic injuries Patient laceration, subdural hemorrhage, ventricular hemorrhage, nasal fracture, C6 fracture, C1-C2 subluxation, C4 transverse process fracture, right rib fracture, L1 transverse process fracture, right pubic rami fracture Continue c-collar this time, however patient does not wear Specialist no longer following patient, patient will require outpatient follow-up if discharge Right breast abscess, Improved. Physical exam shows improvement. Ultrasound does show complex loculated collection measuring 2.4 x 1.7 x 1.8 cm. Representing breast abscess Status post Augmentin 500 mg twice daily for 10 days (end date 10/25/17). Finished Bactrim DS for 18 days Gen. surgery consulted who recommends no intervention at this time. Soft tissue ultrasound shows a improvement of the fluid collection. Hypertension Blood pressures more controlled at this time. Will continue to monitor. Amlodipine 10 mg daily lisinopril 10 mg daily Status post fall, 10/23/[address] obtained and reviewed showing no acute fracture or bleed. Right knee x-ray showing no fracture. Orthostatic BPs unremarkable. Continue to monitor neuro status closely. No further fall incidences. No further dizziness. DVT prevention Patient ambulating Sequential compression devices while in bed Records were reviewed. Awaiting case management for discharge planning, No change in current treatment plan. Discharge Planning Patient is medically stable for discharge, however due to underlying psychiatric /cognition patient is unsafe discharge until arrangements made by case management. Problem Qualifiers (1) Hypertension: Qualified Codes: I10 - Essential (primary) hypertension Alyssa Means Nov 17, 2017 09:24
[2017-11-17] MEDS: VALPROIC ACID 250 MG CAP PO SCH ×2 (10:26→20:31)
[2017-11-17] MEDS: LISINOPRIL 10 MG TAB PO SCH ×2 (10:26→20:33)
[2017-11-17] MEDS: QUEtiapine FUMARATE 100 MG TAB PO SCH ×2 (10:26→20:30)
[2017-11-17] MEDS: FLUoxetine HCL 20 MG CAP PO SCH (10:26)
[2017-11-17] MEDS: ACETAMINOPHEN 325 MG TAB PO PRN (10:27)
[2017-11-17 20:00] VITALS: BP 142/83; PULSE 68; RESP 19; TEMP 97.2; O2SAT 93
--- NOTE | 2017-11-18 08:45 | HHI.PR ---
Subjective Remarks Follow-up on unsafe discharge due to cognition. Patient seen and examined, sleeping in bed. Awakens to voice. Patient is pleasant. Denies any acute events overnight. No change in clinical condition. Objective Vitals Vital Signs Date Time Temp Pulse Resp B/P (MAP) Pulse Ox O2 Delivery O2 Flow Rate FiO2 11/17/17 20:00 97.2 68 19 142/83 (102) 93 I/O 11/17/17 11/17/17 11/17/17 11/18/17 11/18/17 11/18/17 07:00 15:00 23:00 07:00 15:00 23:00 Intake Total 180 ml 792 ml Balance 180 ml 792 ml Intake Oral 180 ml 792 ml # Voids 1 4 1 # Bowel Movements 0 1 Imaging Last Impressions Knee X-Ray 11/02/17 0000 Signed Impressions: Service Date/Time: Thursday, November 02, 2017 18:51 - CONCLUSION: Intact right knee. Jovany Hayes MD Head CT 11/02/17 0000 Signed Impressions: Service Date/Time: Thursday, November 02, 2017 18:35 - CONCLUSION: 1. No bleed or other acute intracranial abnormality. 2. Previously seen intracranial hemorrhage has resolved. A small area of chronic encephalomalacia has developed of the right frontal lobe. 3. Chronic periventricular white matter changes are again noted. Jovany Hayes MD Breast Ultrasound 10/15/17 0000 Signed Impressions: Service Date/Time: Sunday, October 15, 2017 09:06 - CONCLUSION: Persistent subcutaneous collection at the 12:00 position of the right breast. It has slightly decreased in size since the study dated 09/23/2017 and could represent an infectious process. Consider followup to confirm resolution. Jovany Quezada MD Chest X-Ray 09/03/17 0000 Signed Impressions: Service Date/Time: Sunday, September 03, 2017 17:02 - CONCLUSION: 1. Mild edema pattern. Subsegmental basilar airspace disease most characteristic of atelectasis.. Fadi Carolina MD Cervical Spine CT 09/02/17 0000 Signed Impressions: Service Date/Time: August 12:56 - CONCLUSION: Postsurgical changes from anterior cervical plate at C6-7. No evidence of compression deformity or spondylolisthesis. Arun Regan MD Pelvis X-Ray 06/30/17 0000 Signed Impressions: Service Date/Time: Friday, June 30, 2017 12:17 - CONCLUSION: No significant change has occurred. Carlos Capps MD Objective Remarks GENERAL: Well-nourished, well-developed female lying in bed in [facility]. SKIN: Warm and dry. No rash. Right breast abscess improved. HEENT: Normocephalic. Atraumatic. Pupils equal and round. No scleral icterus. No injection or drainage. No nasal bleeding or discharge. Mucous membranes pink and moist. NECK: Supple. Trachea midline. CARDIOVASCULAR: Regular rate and rhythm. S1, S2 noted. No murmur appreciated. RESPIRATORY: No accessory muscle use. Clear to auscultation. Breath sounds equal bilaterally. GASTROINTESTINAL: Abdomen soft, non-tender, nondistended. Normoactive bowel sounds x4. No guarding noted. MUSCULOSKELETAL: No obvious deformities. Extremities without clubbing, cyanosis , or edema. NEUROLOGICAL: Awake and alert. No obvious cranial nerve deficits. Motor grossly within normal limits. 5/5 muscle strength in bilateral upper and lower extremities. Normal speech. PSYCHIATRIC: Appropriate mood and affect. A/P Problem List: (1) Alcohol dependence in controlled environment ICD Code: F10.20 - Alcohol dependence, uncomplicated Status: Chronic (2) Facial injury ICD Code: S09.93XA - Unspecified injury of face, initial encounter Status: Acute (3) Fall ICD Code: W19.XXXA - Unspecified fall, initial encounter Status: Acute (4) Hypertension ICD Code: I10 - Essential (primary) hypertension Status: Acute (5) Pelvic fracture ICD Code: S32.9XXA - Fracture of unspecified parts of lumbosacral spine and pelvis, initial encounter for closed fracture Status: Acute (6) C1-C2 subluxation ICD Code: S13.120A - Subluxation of C1/C2 cervical vertebrae, initial encounter Status: Acute (7) C6 cervical fracture ICD Code: S12.500A - Unspecified displaced fracture of sixth cervical vertebra , initial encounter for closed fracture Status: Acute (8) Traumatic brain injury ICD Code: S06.9X9A - Unspecified intracranial injury with loss of consciousness of unspecified duration, initial encounter Status: Acute (9) Nasal fracture ICD Code: S02.2XXA - Fracture of nasal bones, initial encounter for closed fracture Status: Acute (10) Mild neurocognitive disorder ICD Code: G31.84 - Mild cognitive impairment, so stated Status: Acute (11) Intracranial bleed ICD Code: I62.9 - Nontraumatic intracranial hemorrhage, unspecified Status: Acute Assessment and Plan Inability to care for self, unsafe discharge due to cognition Initially he was indicated patient cannot walk, patient is walking at this time, PT and OT recommending supervision at home for safety Speech therapy following the patient intermittently for cognitive evaluations. MOCA score 20/30, she needs to have supervision Psychiatry indicates that secondary to her frontal lobe injury her cognition changes on a daily basis. Mini mental state 28/30, recommended avoid antipsychotics for benzodiazepine. Recommending Depakote or carbamazepine Patient is medically stable for discharge, however due to underlying psychiatric/cognition patient is unsafe discharge until arrangements made by case management Case management for discharge planning Neuropsychiatry evaluated the patient recommended patient may improve with treatment, however indicates avoid benzodiazepines and antipsychotics Continue Prozac 40 mg daily, Depakene 500 mg twice daily and Seroquel 50 mg every 8 hours *Discussed with psychiatry again about patient's cognition issues. He indicated that the patient lacks capacity for signing AMA or to participate in discharge plan. He is recommending that he would invite the ethics committee to the hospital to have a discussion about patient care. * Consulted case management for ethics committee review, awaiting response Multiple traumatic injuries Patient laceration, subdural hemorrhage, ventricular hemorrhage, nasal fracture, C6 fracture, C1-C2 subluxation, C4 transverse process fracture, right rib fracture, L1 transverse process fracture, right pubic rami fracture Continue c-collar this time, however patient does not wear Specialist no longer following patient, patient will require outpatient follow-up if discharge Right breast abscess, Improved. Physical exam shows improvement. Ultrasound does show complex loculated collection measuring 2.4 x 1.7 x 1.8 cm. Representing breast abscess Status post Augmentin 500 mg twice daily for 10 days (end date 10/25/17). Finished Bactrim DS for 18 days Gen. surgery consulted who recommends no intervention at this time. Soft tissue ultrasound shows a improvement of the fluid collection. Hypertension Blood pressures more controlled at this time. Will continue to monitor. Amlodipine 10 mg daily lisinopril 10 mg daily Status post fall, 10/23/[address] obtained and reviewed showing no acute fracture or bleed. Right knee x-ray showing no fracture. Orthostatic BPs unremarkable. Continue to monitor neuro status closely. No further fall incidences. No further dizziness. DVT prevention Patient ambulating Sequential compression devices while in bed Records were reviewed. Awaiting case management for discharge planning, No change in current treatment plan. Discharge Planning Patient is medically stable for discharge, however due to underlying psychiatric /cognition patient is unsafe discharge until arrangements made by case management. Problem Qualifiers (1) Hypertension: Qualified Codes: I10 - Essential (primary) hypertension Alyssa Means Nov 18, 2017 08:45
[2017-11-18 09:00] VITALS: BP 151/91; PULSE 63; RESP 20; TEMP 97.4; O2SAT 92
[2017-11-18] MEDS: FLUoxetine HCL 20 MG CAP PO SCH (09:46)
[2017-11-18] MEDS: LISINOPRIL 10 MG TAB PO SCH ×2 (09:46→19:56)
[2017-11-18] MEDS: QUEtiapine FUMARATE 100 MG TAB PO SCH ×2 (09:46→19:56)
[2017-11-18] MEDS: VALPROIC ACID 250 MG CAP PO SCH ×2 (09:46→19:56)
[2017-11-18] MEDS: ACETAMINOPHEN 325 MG TAB PO PRN (19:57)
[2017-11-18 20:00] VITALS: BP 125/84; PULSE 68; RESP 18; TEMP 96.1; O2SAT 97
--- NOTE | 2017-11-19 08:16 | HHI.PR ---
Subjective Remarks Follow-up an unsafe discharge due to admission. Patient seen and examined, sitting up in bed comfortably, eating breakfast. Denies any acute events overnight. No change in clinical condition. Vital signs stable. Objective Vitals Vital Signs Date Time Temp Pulse Resp B/P (MAP) Pulse Ox O2 Delivery O2 Flow Rate FiO2 11/18/17 20:00 96.1 68 18 125/84 (98) 97 11/18/17 09:00 97.4 63 20 151/91 (111) 92 I/O 11/18/17 11/18/17 11/18/17 11/19/17 11/19/17 11/19/17 07:00 15:00 23:00 07:00 15:00 23:00 Intake Total 800 ml Balance 800 ml Intake Oral 800 ml # Voids 1 4 2 # Bowel Movements 0 Imaging Last Impressions Knee X-Ray 11/02/17 0000 Signed Impressions: Service Date/Time: Thursday, November 02, 2017 18:51 - CONCLUSION: Intact right knee. Jovany Hayes MD Head CT 11/02/17 0000 Signed Impressions: Service Date/Time: Thursday, November 02, 2017 18:35 - CONCLUSION: 1. No bleed or other acute intracranial abnormality. 2. Previously seen intracranial hemorrhage has resolved. A small area of chronic encephalomalacia has developed of the right frontal lobe. 3. Chronic periventricular white matter changes are again noted. Jovany Hayes MD Breast Ultrasound 10/15/17 0000 Signed Impressions: Service Date/Time: Sunday, October 15, 2017 09:06 - CONCLUSION: Persistent subcutaneous collection at the 12:00 position of the right breast. It has slightly decreased in size since the study dated 09/23/2017 and could represent an infectious process. Consider followup to confirm resolution. Jovany Quezada MD Chest X-Ray 09/03/17 0000 Signed Impressions: Service Date/Time: Sunday, September 03, 2017 17:02 - CONCLUSION: 1. Mild edema pattern. Subsegmental basilar airspace disease most characteristic of atelectasis.. Fadi Carolina MD Cervical Spine CT 09/02/17 0000 Signed Impressions: Service Date/Time: August 12:56 - CONCLUSION: Postsurgical changes from anterior cervical plate at C6-7. No evidence of compression deformity or spondylolisthesis. Arun Regan MD Pelvis X-Ray 06/30/17 0000 Signed Impressions: Service Date/Time: Friday, June 30, 2017 12:17 - CONCLUSION: No significant change has occurred. Carlos Capps MD Objective Remarks GENERAL: Well-nourished, well-developed female in NAD. SKIN: Warm and dry. No rash. Right breast abscess improved. HEENT: Normocephalic. Atraumatic. Pupils equal and round. No scleral icterus. No injection or drainage. No nasal bleeding or discharge. Mucous membranes pink and moist. NECK: Supple. Trachea midline. CARDIOVASCULAR: Regular rate and rhythm. S1, S2 noted. No murmur appreciated. RESPIRATORY: No accessory muscle use. Clear to auscultation. Breath sounds equal bilaterally. GASTROINTESTINAL: Abdomen soft, non-tender, nondistended. Normoactive bowel sounds x4. No guarding noted. MUSCULOSKELETAL: No obvious deformities. Extremities without clubbing, cyanosis , or edema. NEUROLOGICAL: Awake and alert. No obvious cranial nerve deficits. Motor grossly within normal limits. 5/5 muscle strength in bilateral upper and lower extremities. Normal speech. PSYCHIATRIC: Appropriate mood and affect. A/P Problem List: (1) Alcohol dependence in controlled environment ICD Code: F10.20 - Alcohol dependence, uncomplicated Status: Chronic (2) Facial injury ICD Code: S09.93XA - Unspecified injury of face, initial encounter Status: Acute (3) Fall ICD Code: W19.XXXA - Unspecified fall, initial encounter Status: Acute (4) Hypertension ICD Code: I10 - Essential (primary) hypertension Status: Acute (5) Pelvic fracture ICD Code: S32.9XXA - Fracture of unspecified parts of lumbosacral spine and pelvis, initial encounter for closed fracture Status: Acute (6) C1-C2 subluxation ICD Code: S13.120A - Subluxation of C1/C2 cervical vertebrae, initial encounter Status: Acute (7) C6 cervical fracture ICD Code: S12.500A - Unspecified displaced fracture of sixth cervical vertebra , initial encounter for closed fracture Status: Acute (8) Traumatic brain injury ICD Code: S06.9X9A - Unspecified intracranial injury with loss of consciousness of unspecified duration, initial encounter Status: Acute (9) Nasal fracture ICD Code: S02.2XXA - Fracture of nasal bones, initial encounter for closed fracture Status: Acute (10) Mild neurocognitive disorder ICD Code: G31.84 - Mild cognitive impairment, so stated Status: Acute (11) Intracranial bleed ICD Code: I62.9 - Nontraumatic intracranial hemorrhage, unspecified Status: Acute Assessment and Plan Inability to care for self, unsafe discharge due to cognition Initially he was indicated patient cannot walk, patient is walking at this time, PT and OT recommending supervision at home for safety Speech therapy following the patient intermittently for cognitive evaluations. MOCA score 20/30, she needs to have supervision Psychiatry indicates that secondary to her frontal lobe injury her cognition changes on a daily basis. Mini mental state 28/30, recommended avoid antipsychotics for benzodiazepine. Recommending Depakote or carbamazepine Patient is medically stable for discharge, however due to underlying psychiatric/cognition patient is unsafe discharge until arrangements made by case management Case management for discharge planning Neuropsychiatry evaluated the patient recommended patient may improve with treatment, however indicates avoid benzodiazepines and antipsychotics Continue Prozac 40 mg daily, Depakene 500 mg twice daily and Seroquel 50 mg every 8 hours *Discussed with psychiatry again about patient's cognition issues. He indicated that the patient lacks capacity for signing AMA or to participate in discharge plan. He is recommending that he would invite the ethics committee to the hospital to have a discussion about patient care. * Consulted case management for ethics committee review, awaiting response Multiple traumatic injuries Patient laceration, subdural hemorrhage, ventricular hemorrhage, nasal fracture, C6 fracture, C1-C2 subluxation, C4 transverse process fracture, right rib fracture, L1 transverse process fracture, right pubic rami fracture Continue c-collar this time, however patient does not wear Specialist no longer following patient, patient will require outpatient follow-up if discharge Right breast abscess, Improved. Physical exam shows improvement. Ultrasound does show complex loculated collection measuring 2.4 x 1.7 x 1.8 cm. Representing breast abscess Status post Augmentin 500 mg twice daily for 10 days (end date 10/25/17). Finished Bactrim DS for 18 days Gen. surgery consulted who recommends no intervention at this time. Soft tissue ultrasound shows a improvement of the fluid collection. Hypertension Blood pressures more controlled at this time. Will continue to monitor. Amlodipine 10 mg daily lisinopril 10 mg daily Status post fall, 10/23/[address] obtained and reviewed showing no acute fracture or bleed. Right knee x-ray showing no fracture. Orthostatic BPs unremarkable. Continue to monitor neuro status closely. No further fall incidences. No further dizziness. DVT prevention Patient ambulating Sequential compression devices while in bed Records were reviewed. Awaiting case management for discharge planning, No change in current treatment plan. Discharge Planning Patient is medically stable for discharge, however due to underlying psychiatric /cognition patient is unsafe discharge until arrangements made by case management. Problem Qualifiers (1) Hypertension: Qualified Codes: I10 - Essential (primary) hypertension Alyssa Means Nov 19, 2017 08:16
[2017-11-19] MEDS: LISINOPRIL 10 MG TAB PO SCH ×2 (09:00→19:57)
[2017-11-19 09:37] VITALS: BP 131/86; PULSE 75; RESP 18; TEMP 97.8; O2SAT 93
[2017-11-19] MEDS: VALPROIC ACID 250 MG CAP PO SCH ×2 (09:41→19:49)
[2017-11-19] MEDS: FLUoxetine HCL 20 MG CAP PO SCH (09:42)
[2017-11-19] MEDS: QUEtiapine FUMARATE 100 MG TAB PO SCH ×2 (09:42→19:49)
[2017-11-19 12:00] VITALS: BP 97/76; PULSE 91; RESP 16; O2SAT 93
[2017-11-19 16:00] VITALS: BP 111/86; PULSE 95; RESP 16; TEMP 97; O2SAT 95
[2017-11-19 20:00] VITALS: BP 111/80; PULSE 73; RESP 18; TEMP 98.2; O2SAT 92
[2017-11-20 07:50] VITALS: BP 129/74; PULSE 83; RESP 20; TEMP 97.4; O2SAT 91
[2017-11-20] MEDS: VALPROIC ACID 250 MG CAP PO SCH ×2 (09:02→20:30)
[2017-11-20] MEDS: FLUoxetine HCL 20 MG CAP PO SCH (09:03)
[2017-11-20] MEDS: QUEtiapine FUMARATE 100 MG TAB PO SCH ×2 (09:03→20:30)
[2017-11-20] MEDS: LISINOPRIL 10 MG TAB PO SCH ×2 (09:03→20:30)
--- NOTE | 2017-11-20 13:35 | HHI.PR ---
Subjective Remarks Follow-up an unsafe discharge due to cognition. Patient seen and examined, sitting up in bed comfortably eating breakfast he denies any tingling clinical condition or any acute events overnight. Vital signs stable. Denies pain. Objective Vitals Vital Signs Date Time Temp Pulse Resp B/P (MAP) Pulse Ox O2 Delivery O2 Flow Rate FiO2 11/20/17 07:50 97.4 83 20 129/74 (92) 91 11/19/17 20:00 98.2 73 18 111/80 (90) 92 11/19/17 16:00 97.0 95 16 111/86 (94) 95 I/O 11/19/17 11/19/17 11/19/17 11/20/17 11/20/17 11/20/17 07:00 15:00 23:00 07:00 15:00 23:00 Intake Total 100 ml 420 ml Balance 100 ml 420 ml Intake Oral 100 ml 420 ml # Voids 2 2 1 # Bowel Movements 1 0 Imaging Last Impressions Knee X-Ray 11/02/17 0000 Signed Impressions: Service Date/Time: Thursday, November 02, 2017 18:51 - CONCLUSION: Intact right knee. Jovany Hayes MD Head CT 11/02/17 0000 Signed Impressions: Service Date/Time: Thursday, November 02, 2017 18:35 - CONCLUSION: 1. No bleed or other acute intracranial abnormality. 2. Previously seen intracranial hemorrhage has resolved. A small area of chronic encephalomalacia has developed of the right frontal lobe. 3. Chronic periventricular white matter changes are again noted. Jovany Hayes MD Breast Ultrasound 10/15/17 0000 Signed Impressions: Service Date/Time: Sunday, October 15, 2017 09:06 - CONCLUSION: Persistent subcutaneous collection at the 12:00 position of the right breast. It has slightly decreased in size since the study dated 09/23/2017 and could represent an infectious process. Consider followup to confirm resolution. Jovany Quezada MD Chest X-Ray 09/03/17 0000 Signed Impressions: Service Date/Time: Sunday, September 03, 2017 17:02 - CONCLUSION: 1. Mild edema pattern. Subsegmental basilar airspace disease most characteristic of atelectasis.. Fadi Carolina MD Cervical Spine CT 09/02/17 0000 Signed Impressions: Service Date/Time: August 12:56 - CONCLUSION: Postsurgical changes from anterior cervical plate at C6-7. No evidence of compression deformity or spondylolisthesis. Arun Regan MD Pelvis X-Ray 06/30/17 0000 Signed Impressions: Service Date/Time: Friday, June 30, 2017 12:17 - CONCLUSION: No significant change has occurred. Carlos Capps MD Objective Remarks GENERAL: Well-nourished, well-developed female in NAD. SKIN: Warm and dry. No rash. Right breast abscess improved. HEENT: Normocephalic. Atraumatic. Pupils equal and round. No scleral icterus. No injection or drainage. No nasal bleeding or discharge. Mucous membranes pink and moist. NECK: Supple. Trachea midline. CARDIOVASCULAR: Regular rate and rhythm. S1, S2 noted. No murmur appreciated. RESPIRATORY: No accessory muscle use. Clear to auscultation. Breath sounds equal bilaterally. GASTROINTESTINAL: Abdomen soft, non-tender, nondistended. Normoactive bowel sounds x4. No guarding noted. MUSCULOSKELETAL: No obvious deformities. Extremities without clubbing, cyanosis , or edema. NEUROLOGICAL: Awake and alert. No obvious cranial nerve deficits. Motor grossly within normal limits. 5/5 muscle strength in bilateral upper and lower extremities. Normal speech. PSYCHIATRIC: Appropriate mood and affect. A/P Problem List: (1) Alcohol dependence in controlled environment ICD Code: F10.20 - Alcohol dependence, uncomplicated Status: Chronic (2) Facial injury ICD Code: S09.93XA - Unspecified injury of face, initial encounter Status: Acute (3) Fall ICD Code: W19.XXXA - Unspecified fall, initial encounter Status: Acute (4) Hypertension ICD Code: I10 - Essential (primary) hypertension Status: Acute (5) Pelvic fracture ICD Code: S32.9XXA - Fracture of unspecified parts of lumbosacral spine and pelvis, initial encounter for closed fracture Status: Acute (6) C1-C2 subluxation ICD Code: S13.120A - Subluxation of C1/C2 cervical vertebrae, initial encounter Status: Acute (7) C6 cervical fracture ICD Code: S12.500A - Unspecified displaced fracture of sixth cervical vertebra , initial encounter for closed fracture Status: Acute (8) Traumatic brain injury ICD Code: S06.9X9A - Unspecified intracranial injury with loss of consciousness of unspecified duration, initial encounter Status: Acute (9) Nasal fracture ICD Code: S02.2XXA - Fracture of nasal bones, initial encounter for closed fracture Status: Acute (10) Mild neurocognitive disorder ICD Code: G31.84 - Mild cognitive impairment, so stated Status: Acute (11) Intracranial bleed ICD Code: I62.9 - Nontraumatic intracranial hemorrhage, unspecified Status: Acute Assessment and Plan Inability to care for self, unsafe discharge due to cognition Initially it was indicated patient cannot walk, patient is walking at this time, PT and OT recommending supervision at home for safety. Speech therapy following the patient intermittently for cognitive evaluations. MOCA score 20/30, she needs to have supervision Psychiatry indicates that secondary to her frontal lobe injury her cognition changes on a daily basis. Mini mental state 28/30, recommended avoid antipsychotics for benzodiazepine. Recommending Depakote or carbamazepine Patient is medically stable for discharge, however due to underlying psychiatric/cognition patient is unsafe discharge until arrangements made by case management Case management for discharge planning. Neuropsychiatry evaluated the patient recommended patient may improve with treatment, however indicates avoid benzodiazepines and antipsychotics. Continue Prozac 40 mg daily, Depakene 500 mg twice daily and Seroquel 50 mg every 8 hours *Discussed with psychiatry again about patient's cognition issues. He indicated that the patient lacks capacity for signing AMA or to participate in discharge plan. He is recommending that he would invite the ethics committee to the hospital to have a discussion about patient care. * Consulted case management for ethics committee review, awaiting response Multiple traumatic injuries Patient laceration, subdural hemorrhage, ventricular hemorrhage, nasal fracture, C6 fracture, C1-C2 subluxation, C4 transverse process fracture, right rib fracture, L1 transverse process fracture, right pubic rami fracture Continue c-collar this time, however patient does not wear Specialist no longer following patient, patient will require outpatient follow-up if discharge Right breast abscess, Improved. Physical exam shows improvement. Ultrasound does show complex loculated collection measuring 2.4 x 1.7 x 1.8 cm. Representing breast abscess Status post Augmentin 500 mg twice daily for 10 days (end date 10/25/17). Finished Bactrim DS for 18 days Gen. surgery consulted who recommends no intervention at this time. Soft tissue ultrasound shows a improvement of the fluid collection. Hypertension Blood pressures more controlled at this time. Will continue to monitor. Amlodipine 10 mg daily lisinopril 10 mg daily Status post fall, 10/23/[address] obtained and reviewed showing no acute fracture or bleed. Right knee x-ray showing no fracture. Orthostatic BPs unremarkable. Continue to monitor neuro status closely. No further fall incidences. No further dizziness. DVT prevention Patient ambulating Sequential compression devices while in bed Records were reviewed. Awaiting case management for discharge planning, No change in current treatment plan. Discharge Planning Patient is medically stable for discharge, however due to underlying psychiatric /cognition patient is unsafe discharge until arrangements made by case management. Problem Qualifiers (1) Hypertension: Qualified Codes: I10 - Essential (primary) hypertension Alyssa Means Nov 20, 2017 13:35
[2017-11-20] MEDS: ACETAMINOPHEN 325 MG TAB PO PRN (20:31)
[2017-11-20 21:52] VITALS: BP 139/83; PULSE 72; RESP 16; TEMP 97.9; O2SAT 94
[2017-11-21 08:00] VITALS: BP 128/90; PULSE 73; RESP 14; TEMP 98.4; O2SAT 92
[2017-11-21] MEDS: VALPROIC ACID 250 MG CAP PO SCH ×2 (09:37→21:34)
[2017-11-21] MEDS: QUEtiapine FUMARATE 100 MG TAB PO SCH ×2 (09:37→21:34)
[2017-11-21] MEDS: LISINOPRIL 10 MG TAB PO SCH ×2 (09:38→21:00)
[2017-11-21] MEDS: FLUoxetine HCL 20 MG CAP PO SCH (09:38)
--- NOTE | 2017-11-21 09:48 | HHI.PR ---
Subjective Remarks Follow-up unsafe discharge due to cognition. Patient seen and examined, lying in bed comfortably in no apparent distress. She denies any acute events overnight. Denies any pain. All needle bed. Vital signs are stable afebrile overnight. Objective Vitals Vital Signs Date Time Temp Pulse Resp B/P (MAP) Pulse Ox O2 Delivery O2 Flow Rate FiO2 11/20/17 21:52 97.9 72 16 139/83 (101) 94 11/20/17 21:31 16 I/O 11/20/17 11/20/17 11/20/17 11/21/17 11/21/17 11/21/17 07:00 15:00 23:00 07:00 15:00 23:00 Intake Total 420 ml 443 ml Balance 420 ml 443 ml Intake Oral 420 ml 443 ml # Voids 1 4 2 # Bowel Movements 0 1 1 Imaging Last Impressions Knee X-Ray 11/02/17 0000 Signed Impressions: Service Date/Time: Thursday, November 02, 2017 18:51 - CONCLUSION: Intact right knee. Jovany Hayes MD Head CT 11/02/17 0000 Signed Impressions: Service Date/Time: Thursday, November 02, 2017 18:35 - CONCLUSION: 1. No bleed or other acute intracranial abnormality. 2. Previously seen intracranial hemorrhage has resolved. A small area of chronic encephalomalacia has developed of the right frontal lobe. 3. Chronic periventricular white matter changes are again noted. Jovany Hayes MD Breast Ultrasound 10/15/17 0000 Signed Impressions: Service Date/Time: Sunday, October 15, 2017 09:06 - CONCLUSION: Persistent subcutaneous collection at the 12:00 position of the right breast. It has slightly decreased in size since the study dated 09/23/2017 and could represent an infectious process. Consider followup to confirm resolution. Jovany Quezada MD Chest X-Ray 09/03/17 0000 Signed Impressions: Service Date/Time: Sunday, September 03, 2017 17:02 - CONCLUSION: 1. Mild edema pattern. Subsegmental basilar airspace disease most characteristic of atelectasis.. Fadi Carolina MD Cervical Spine CT 09/02/17 0000 Signed Impressions: Service Date/Time: August 12:56 - CONCLUSION: Postsurgical changes from anterior cervical plate at C6-7. No evidence of compression deformity or spondylolisthesis. Arun Regan MD Pelvis X-Ray 06/30/17 0000 Signed Impressions: Service Date/Time: Friday, June 30, 2017 12:17 - CONCLUSION: No significant change has occurred. Carlos Capps MD Objective Remarks GENERAL: Well-nourished, well-developed female in NAD. SKIN: Warm and dry. No rash. Right breast abscess improved. HEENT: Normocephalic. Atraumatic. Pupils equal and round. No scleral icterus. No injection or drainage. No nasal bleeding or discharge. Mucous membranes pink and moist. NECK: Supple. Trachea midline. CARDIOVASCULAR: Regular rate and rhythm. S1, S2 noted. No murmur appreciated. RESPIRATORY: No accessory muscle use. Clear to auscultation. Breath sounds equal bilaterally. GASTROINTESTINAL: Abdomen soft, non-tender, nondistended. Normoactive bowel sounds x4. No guarding noted. MUSCULOSKELETAL: No obvious deformities. Extremities without clubbing, cyanosis , or edema. NEUROLOGICAL: Awake and alert. No obvious cranial nerve deficits. Motor grossly within normal limits. 5/5 muscle strength in bilateral upper and lower extremities. Normal speech. PSYCHIATRIC: Appropriate mood and affect. A/P Problem List: (1) Alcohol dependence in controlled environment ICD Code: F10.20 - Alcohol dependence, uncomplicated Status: Chronic (2) Facial injury ICD Code: S09.93XA - Unspecified injury of face, initial encounter Status: Acute (3) Fall ICD Code: W19.XXXA - Unspecified fall, initial encounter Status: Acute (4) Hypertension ICD Code: I10 - Essential (primary) hypertension Status: Acute (5) Pelvic fracture ICD Code: S32.9XXA - Fracture of unspecified parts of lumbosacral spine and pelvis, initial encounter for closed fracture Status: Acute (6) C1-C2 subluxation ICD Code: S13.120A - Subluxation of C1/C2 cervical vertebrae, initial encounter Status: Acute (7) C6 cervical fracture ICD Code: S12.500A - Unspecified displaced fracture of sixth cervical vertebra , initial encounter for closed fracture Status: Acute (8) Traumatic brain injury ICD Code: S06.9X9A - Unspecified intracranial injury with loss of consciousness of unspecified duration, initial encounter Status: Acute (9) Nasal fracture ICD Code: S02.2XXA - Fracture of nasal bones, initial encounter for closed fracture Status: Acute (10) Mild neurocognitive disorder ICD Code: G31.84 - Mild cognitive impairment, so stated Status: Acute (11) Intracranial bleed ICD Code: I62.9 - Nontraumatic intracranial hemorrhage, unspecified Status: Acute Assessment and Plan Inability to care for self, unsafe discharge due to cognition Initially it was indicated patient cannot walk, patient is walking at this time, PT and OT recommending supervision at home for safety. Speech therapy following the patient intermittently for cognitive evaluations. MOCA score 20/30, she needs to have supervision Psychiatry indicates that secondary to her frontal lobe injury her cognition changes on a daily basis. Mini mental state 28/30, recommended avoid antipsychotics for benzodiazepine. Recommending Depakote or carbamazepine Patient is medically stable for discharge, however due to underlying psychiatric/cognition patient is unsafe discharge until arrangements made by case management Case management for discharge planning. Neuropsychiatry evaluated the patient recommended patient may improve with treatment, however indicates avoid benzodiazepines and antipsychotics. Continue Prozac 40 mg daily, Depakene 500 mg twice daily and Seroquel 50 mg every 8 hours *Psychiatry has deemed patient incapable for signing AMA or to participate in discharge plan. He is recommending that he would invite the ethics committee to the hospital to have a discussion about patient care. *Consulted case management for ethics committee review, awaiting response. Multiple traumatic injuries Patient laceration, subdural hemorrhage, ventricular hemorrhage, nasal fracture, C6 fracture, C1-C2 subluxation, C4 transverse process fracture, right rib fracture, L1 transverse process fracture, right pubic rami fracture Continue c-collar this time, however patient does not wear Specialist no longer following patient, patient will require outpatient follow-up if discharge Right breast abscess, Improved. Physical exam shows improvement. Ultrasound does show complex loculated collection measuring 2.4 x 1.7 x 1.8 cm. Representing breast abscess Status post Augmentin 500 mg twice daily for 10 days (end date 10/25/17). Finished Bactrim DS for 18 days Gen. surgery consulted who recommends no intervention at this time. Soft tissue ultrasound shows a improvement of the fluid collection. Hypertension Blood pressures more controlled at this time. Will continue to monitor. Amlodipine 10 mg daily lisinopril 10 mg daily Status post fall, 10/23/[address] obtained and reviewed showing no acute fracture or bleed. Right knee x-ray showing no fracture. Orthostatic BPs unremarkable. Continue to monitor neuro status closely. No further fall incidences. No further dizziness. DVT prevention Patient ambulating Sequential compression devices while in bed Records were reviewed. Awaiting case management for discharge planning, No change in current treatment plan. Discharge Planning Patient is medically stable for discharge, however due to underlying psychiatric /cognition patient is unsafe discharge until arrangements made by case management. Problem Qualifiers (1) Hypertension: Qualified Codes: I10 - Essential (primary) hypertension Alyssa Means Nov 21, 2017 09:48
[2017-11-21] MEDS: ACETAMINOPHEN 325 MG TAB PO PRN ×2 (13:19→21:35)
[2017-11-21 21:03] VITALS: BP 114/86; PULSE 71; RESP 16; TEMP 97.9; O2SAT 96
[2017-11-21] MEDS: CLOTRIMAZOLE 1% CREAM 15 GM TOPICAL SCH (21:33)
[2017-11-22 09:30] VITALS: BP 147/87; PULSE 60; RESP 16; TEMP 97.4; O2SAT 94
[2017-11-22] MEDS: CLOTRIMAZOLE 1% CREAM 15 GM TOPICAL SCH ×2 (10:46→21:08)
[2017-11-22] MEDS: VALPROIC ACID 250 MG CAP PO SCH ×2 (10:47→21:09)
[2017-11-22] MEDS: FLUoxetine HCL 20 MG CAP PO SCH (10:47)
[2017-11-22] MEDS: LISINOPRIL 10 MG TAB PO SCH ×2 (10:47→21:09)
[2017-11-22] MEDS: QUEtiapine FUMARATE 100 MG TAB PO SCH ×2 (10:47→21:08)
--- NOTE | 2017-11-22 11:58 | HHI.PR ---
Subjective Remarks Follow-up unsafe discharge due to cognition. Patient seen and examined, lying comfortably in bed. Eating breakfast, denies any abdominal pain, nausea or vomiting. Denies any pain overall. States she slept well. No change in clinical condition. Vital signs are stable. Objective Vitals Vital Signs Date Time Temp Pulse Resp B/P (MAP) Pulse Ox O2 Delivery O2 Flow Rate FiO2 11/22/17 09:30 97.4 60 16 147/87 (107) 94 11/21/17 22:35 16 11/21/17 21:03 97.9 71 16 114/86 (95) 96 I/O 11/21/17 11/21/17 11/21/17 11/22/17 11/22/17 11/22/17 07:00 15:00 23:00 07:00 15:00 23:00 Intake Total 222 ml 444 ml Output Total 2 ml Balance 222 ml 442 ml Intake Oral 222 ml 444 ml Stool Total 2 ml # Voids 2 6 4 # Bowel Movements 1 1 Imaging Last Impressions Knee X-Ray 11/02/17 0000 Signed Impressions: Service Date/Time: Thursday, November 02, 2017 18:51 - CONCLUSION: Intact right knee. Jovany Hayes MD Head CT 11/02/17 0000 Signed Impressions: Service Date/Time: Thursday, November 02, 2017 18:35 - CONCLUSION: 1. No bleed or other acute intracranial abnormality. 2. Previously seen intracranial hemorrhage has resolved. A small area of chronic encephalomalacia has developed of the right frontal lobe. 3. Chronic periventricular white matter changes are again noted. Jovany Hayes MD Breast Ultrasound 10/15/17 0000 Signed Impressions: Service Date/Time: Sunday, October 15, 2017 09:06 - CONCLUSION: Persistent subcutaneous collection at the 12:00 position of the right breast. It has slightly decreased in size since the study dated 09/23/2017 and could represent an infectious process. Consider followup to confirm resolution. Jovany Quezada MD Chest X-Ray 09/03/17 0000 Signed Impressions: Service Date/Time: Sunday, September 03, 2017 17:02 - CONCLUSION: 1. Mild edema pattern. Subsegmental basilar airspace disease most characteristic of atelectasis.. Fadi Carolina MD Cervical Spine CT 09/02/17 0000 Signed Impressions: Service Date/Time: August 12:56 - CONCLUSION: Postsurgical changes from anterior cervical plate at C6-7. No evidence of compression deformity or spondylolisthesis. Arun Regan MD Pelvis X-Ray 06/30/17 0000 Signed Impressions: Service Date/Time: Friday, June 30, 2017 12:17 - CONCLUSION: No significant change has occurred. Carlos Capps MD Objective Remarks GENERAL: Well-nourished, well-developed female in NAD. SKIN: Warm and dry. No rash. Right breast abscess improved. HEENT: Normocephalic. Atraumatic. Pupils equal and round. No scleral icterus. No injection or drainage. No nasal bleeding or discharge. Mucous membranes pink and moist. NECK: Supple. Trachea midline. CARDIOVASCULAR: Regular rate and rhythm. S1, S2 noted. No murmur appreciated. RESPIRATORY: No accessory muscle use. Clear to auscultation. Breath sounds equal bilaterally. GASTROINTESTINAL: Abdomen soft, non-tender, nondistended. Normoactive bowel sounds x4. No guarding noted. MUSCULOSKELETAL: No obvious deformities. Extremities without clubbing, cyanosis , or edema. NEUROLOGICAL: Awake and alert. No obvious cranial nerve deficits. Motor grossly within normal limits. 5/5 muscle strength in bilateral upper and lower extremities. Normal speech. PSYCHIATRIC: Appropriate mood and affect. A/P Problem List: (1) Alcohol dependence in controlled environment ICD Code: F10.20 - Alcohol dependence, uncomplicated Status: Chronic (2) Facial injury ICD Code: S09.93XA - Unspecified injury of face, initial encounter Status: Acute (3) Fall ICD Code: W19.XXXA - Unspecified fall, initial encounter Status: Acute (4) Hypertension ICD Code: I10 - Essential (primary) hypertension Status: Acute (5) Pelvic fracture ICD Code: S32.9XXA - Fracture of unspecified parts of lumbosacral spine and pelvis, initial encounter for closed fracture Status: Acute (6) C1-C2 subluxation ICD Code: S13.120A - Subluxation of C1/C2 cervical vertebrae, initial encounter Status: Acute (7) C6 cervical fracture ICD Code: S12.500A - Unspecified displaced fracture of sixth cervical vertebra , initial encounter for closed fracture Status: Acute (8) Traumatic brain injury ICD Code: S06.9X9A - Unspecified intracranial injury with loss of consciousness of unspecified duration, initial encounter Status: Acute (9) Nasal fracture ICD Code: S02.2XXA - Fracture of nasal bones, initial encounter for closed fracture Status: Acute (10) Mild neurocognitive disorder ICD Code: G31.84 - Mild cognitive impairment, so stated Status: Acute (11) Intracranial bleed ICD Code: I62.9 - Nontraumatic intracranial hemorrhage, unspecified Status: Acute Assessment and Plan Inability to care for self, unsafe discharge due to cognition Initially it was indicated patient cannot walk, patient is walking at this time, PT and OT recommending supervision at home for safety. Speech therapy following the patient intermittently for cognitive evaluations. MOCA score 20/30, she needs to have supervision Psychiatry indicates that secondary to her frontal lobe injury her cognition changes on a daily basis. Mini mental state 28/30, recommended avoid antipsychotics for benzodiazepine. Recommending Depakote or carbamazepine Patient is medically stable for discharge, however due to underlying psychiatric/cognition patient is unsafe discharge until arrangements made by case management Case management for discharge planning. Neuropsychiatry evaluated the patient recommended patient may improve with treatment, however indicates avoid benzodiazepines and antipsychotics. Continue Prozac 40 mg daily, Depakene 500 mg twice daily and Seroquel 50 mg every 8 hours *Psychiatry has deemed patient incapable for signing AMA or to participate in discharge plan. He is recommending that he would invite the ethics committee to the hospital to have a discussion about patient care. *Consulted case management for ethics committee review, awaiting response. Multiple traumatic injuries Patient laceration, subdural hemorrhage, ventricular hemorrhage, nasal fracture, C6 fracture, C1-C2 subluxation, C4 transverse process fracture, right rib fracture, L1 transverse process fracture, right pubic rami fracture Continue c-collar this time, however patient does not wear Specialist no longer following patient, patient will require outpatient follow-up if discharge Right breast abscess, Improved. Physical exam shows improvement. Ultrasound does show complex loculated collection measuring 2.4 x 1.7 x 1.8 cm. Representing breast abscess Status post Augmentin 500 mg twice daily for 10 days (end date 10/25/17). Finished Bactrim DS for 18 days Gen. surgery consulted who recommends no intervention at this time. Soft tissue ultrasound shows a improvement of the fluid collection. Hypertension Blood pressures more controlled at this time. Will continue to monitor. Amlodipine 10 mg daily lisinopril 10 mg daily Status post fall, 10/23/[address] obtained and reviewed showing no acute fracture or bleed. Right knee x-ray showing no fracture. Orthostatic BPs unremarkable. Continue to monitor neuro status closely. No further fall incidences. No further dizziness. DVT prevention Patient ambulating Sequential compression devices while in bed Records were reviewed. Awaiting case management for discharge planning, No change in current treatment plan. Discharge Planning Patient is medically stable for discharge, however due to underlying psychiatric /cognition patient is unsafe discharge until arrangements made by case management. Problem Qualifiers (1) Hypertension: Qualified Codes: I10 - Essential (primary) hypertension Alyssa Means Nov 22, 2017 11:58
[2017-11-22 12:00] VITALS: BP 125/81; PULSE 69; RESP 18; TEMP 96.3; O2SAT 93
[2017-11-22 16:00] VITALS: BP 104/77; PULSE 72; RESP 16; TEMP 98; O2SAT 97
[2017-11-22 20:00] VITALS: BP 138/91; PULSE 72; RESP 18; TEMP 97.8; O2SAT 98
[2017-11-23 08:00] VITALS: BP 153/87; PULSE 53; RESP 15; TEMP 96.5; O2SAT 93
--- NOTE | 2017-11-23 08:43 | HHI.PR ---
Subjective Remarks Patient seen and examined today for follow-up on unsafe discharge due to cognition. Patient denies any new complaints. Patient afebrile. Awaiting case management for discharge planning Objective Vitals Vital Signs Date Time Temp Pulse Resp B/P (MAP) Pulse Ox O2 Delivery O2 Flow Rate FiO2 11/23/17 08:00 96.5 53 15 153/87 (109) 93 11/22/17 20:00 97.8 72 18 138/91 (107) 98 11/22/17 16:00 98.0 72 16 104/77 (86) 97 11/22/17 12:00 96.3 69 18 125/81 (96) 93 11/22/17 09:30 97.4 60 16 147/87 (107) 94 I/O 11/22/17 11/22/17 11/22/17 11/23/17 11/23/17 11/23/17 07:00 15:00 23:00 07:00 15:00 23:00 Intake Total 240 ml 400 ml Balance 240 ml 400 ml Intake Oral 240 ml 400 ml # Voids 4 2 # Bowel Movements 1 0 Objective Remarks GENERAL: Well-developed, well-nourished, in no acute distress. alert and orientated waxes and wanes daily HEENT: Head is normocephalic without any lesions or masses noted. Facial features are symmetric. Eyes: Extraocular muscles are intact. Conjunctivae were clear. NECK: C-collar in on table at bedside CARDIAC: Regular rhythm, regular rate. S1/S2 are heard. No murmurs gallops or rubs. LUNGS: Clear to auscultation bilaterally. No wheeze, rhonchi or rales. No use of accessory muscles on inspiration or expiration. ABDOMEN: Soft, nontender. Nondistended. Bowel sounds heard in all 4 quadrants. No organomegaly or masses. Negative rebound, negative guarding EXTREMITIES: No edema, pulses are equal bilaterally. No cyanosis or clubbing NEUROLOGY: Mood and affect appear appropriate. Cranial nerves II through XII grossly intact moving all extremities, speech is clear Urinary Catheter: No Vascular Central Line Catheter: No A/P Assessment and Plan Inability to care for self, unsafe discharge due to cognition Initially he was indicated patient cannot walk, patient is walking at this time, PT and OT recommending supervision at home for safety Speech therapy following the patient intermittently for cognitive evaluations. 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 MIni mental state 28/30, recommended avoid antipsychotics and benzodiazepine. Recommending Depakote or carbamazepine Patient is medically stable for discharge, however due to underlying psychiatric/cognition patient is unsafe discharge until arrangements made by case management Case management for discharge planning Neuropsychiatry evaluated the patient recommended patient may improve with treatment, however indicates avoid benzodiazepines and antipsychotics Continue Prozac 40 mg daily Depakene 500 mg twice daily Seroquel 100 mg twice daily *Discussed with psychiatry again about patient's cognition issues. He indicated that the patient lacks capacity for signing AMA or to participate in discharge plan. He is recommending that he would invite the ethics committee to the hospital to have a discussion about patient care *Consulted case management for ethics committee review, awaiting response Multiple traumatic injuries, Patient laceration, subdural hemorrhage, ventricular hemorrhage, nasal fracture, C6 fracture, C1-C2 subluxation, C4 transverse process fracture, right rib fracture, L1 transverse process fracture, right pubic rami fracture Continue c-collar this time, however patient does not wear Follow-up cervical spine CT 1026/17 indicates no evidence of acute fracture. Postsurgical changes Specialist no longer following patient, patient will require outpatient follow-up if discharge Right breast abscess, improved Physical exam patient does have a erythematous area with drainage Ultrasound does show complex loculated collection measuring 2.4 x 1.7 x 1.8 cm. Representing breast abscess Status post Augmentin 500 mg twice daily for 10 days., Bactrim DS for 18 days Gen. surgery consulted who recommends no intervention at this time, Soft tissue ultrasound shows a improvement of the fluid collection. Hypertension, uncontrolled Amlodipine 10 mg daily Increase lisinopril 20 mg twice daily DVT prevention Patient ambulating Sequential compression devices while in bed Discharge Planning Case management for discharge planning, Conrado Mariee Nov 23, 2017 08:43
[2017-11-23] MEDS: QUEtiapine FUMARATE 100 MG TAB PO SCH ×2 (09:36→20:52)
[2017-11-23] MEDS: FLUoxetine HCL 20 MG CAP PO SCH (09:36)
[2017-11-23] MEDS: CLOTRIMAZOLE 1% CREAM 15 GM TOPICAL SCH ×2 (09:36→20:55)
[2017-11-23] MEDS: VALPROIC ACID 250 MG CAP PO SCH ×2 (09:36→20:52)
[2017-11-23] MEDS: LISINOPRIL 20 MG TAB PO SCH ×2 (09:36→20:54)
[2017-11-23 20:19] VITALS: BP 133/88; PULSE 62; RESP 18; TEMP 96.3; O2SAT 96
[2017-11-24 08:00] VITALS: BP 130/93; PULSE 59; RESP 18; TEMP 97.8; O2SAT 95
--- NOTE | 2017-11-24 08:53 | HHI.PR ---
Subjective Remarks Patient seen and examined today for follow-up on unsafe discharge due to cognition. Patient lying in bed comfortable. Denies any new complaints. No change in clinical status. Awaiting rn field case manager discharge planning. Afebrile Objective Vitals Vital Signs Date Time Temp Pulse Resp B/P (MAP) Pulse Ox O2 Delivery O2 Flow Rate FiO2 11/23/17 20:19 96.3 62 18 133/88 (103) 96 I/O 11/23/17 11/23/17 11/23/17 11/24/17 11/24/17 11/24/17 07:00 15:00 23:00 07:00 15:00 23:00 Intake Total 400 ml 300 ml 240 ml 280 ml Balance 400 ml 300 ml 240 ml 280 ml Intake Oral 400 ml 300 ml 240 ml 280 ml # Voids 2 1 2 # Bowel Movements 0 0 Objective Remarks GENERAL: Well-developed, well-nourished, in no acute distress. alert and orientated waxes and wanes daily HEENT: Head is normocephalic without any lesions or masses noted. Facial features are symmetric. Eyes: Extraocular muscles are intact. Conjunctivae were clear. NECK: C-collar in on table at bedside CARDIAC: Regular rhythm, regular rate. S1/S2 are heard. No murmurs gallops or rubs. LUNGS: Clear to auscultation bilaterally. No wheeze, rhonchi or rales. No use of accessory muscles on inspiration or expiration. ABDOMEN: Soft, nontender. Nondistended. Bowel sounds heard in all 4 quadrants. No organomegaly or masses. Negative rebound, negative guarding EXTREMITIES: No edema, pulses are equal bilaterally. No cyanosis or clubbing NEUROLOGY: Mood and affect appear appropriate. Cranial nerves II through XII grossly intact moving all extremities, speech is clear Urinary Catheter: No Vascular Central Line Catheter: No A/P Assessment and Plan Inability to care for self, unsafe discharge due to cognition Initially he was indicated patient cannot walk, patient is walking at this time, PT and OT recommending supervision at home for safety Speech therapy following the patient intermittently for cognitive evaluations. 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 MIni mental state 28/30, recommended avoid antipsychotics and benzodiazepine. Recommending Depakote or carbamazepine Patient is medically stable for discharge, however due to underlying psychiatric/cognition patient is unsafe discharge until arrangements made by case management Case management for discharge planning Neuropsychiatry evaluated the patient recommended patient may improve with treatment, however indicates avoid benzodiazepines and antipsychotics Continue Prozac 40 mg daily Depakene 500 mg twice daily Seroquel 100 mg twice daily *Discussed with psychiatry again about patient's cognition issues. He indicated that the patient lacks capacity for signing AMA or to participate in discharge plan. He is recommending that he would invite the ethics committee to the hospital to have a discussion about patient care *Consulted case management for ethics committee review, awaiting response Multiple traumatic injuries, Patient laceration, subdural hemorrhage, ventricular hemorrhage, nasal fracture, C6 fracture, C1-C2 subluxation, C4 transverse process fracture, right rib fracture, L1 transverse process fracture, right pubic rami fracture Continue c-collar this time, however patient does not wear Follow-up cervical spine CT 1026/ indicates no evidence of acute fracture. Postsurgical changes Specialist no longer following patient, patient will require outpatient follow-up if discharge Right breast abscess, improved Physical exam patient does have a erythematous area with drainage Ultrasound does show complex loculated collection measuring 2.4 x 1.7 x 1.8 cm. Representing breast abscess Status post Augmentin 500 mg twice daily for 10 days., Bactrim DS for 18 days Gen. surgery consulted who recommends no intervention at this time, Soft tissue ultrasound shows a improvement of the fluid collection. Hypertension, uncontrolled Amlodipine 10 mg daily lisinopril 20 mg twice daily DVT prevention Patient ambulating Sequential compression devices while in bed Records were reviewed. No change in current treatment plan. Awaiting case management for discharge planning Discharge Planning Case management for discharge planning, Conrado Mariee Nov 24, 2017 08:53
[2017-11-24 09:56] VITALS: PULSE 64; RESP 18
[2017-11-24] MEDS: LISINOPRIL 20 MG TAB PO SCH ×2 (09:57→21:42)
[2017-11-24] MEDS: FLUoxetine HCL 20 MG CAP PO SCH (09:57)
[2017-11-24] MEDS: QUEtiapine FUMARATE 100 MG TAB PO SCH ×2 (09:57→21:42)
[2017-11-24] MEDS: VALPROIC ACID 250 MG CAP PO SCH ×2 (09:57→21:42)
[2017-11-24] MEDS: CLOTRIMAZOLE 1% CREAM 15 GM TOPICAL SCH ×2 (09:58→21:42)
[2017-11-24] MEDS: ACETAMINOPHEN 325 MG TAB PO PRN (12:04)
[2017-11-24 20:00] VITALS: BP 129/84; PULSE 130; RESP 19; TEMP 96.8; O2SAT 92
[2017-11-25 02:52] VITALS: BP 118/84; PULSE 61; RESP 20; TEMP 97.1; O2SAT 92
[2017-11-25 03:32] VITALS: BP 105/56; PULSE 56; RESP 18; TEMP 97; O2SAT 92
[2017-11-25 04:30] VITALS: BP 120/75; PULSE 55; RESP 18; TEMP 96.6; O2SAT 93
[2017-11-25 05:23] VITALS: BP 133/74; PULSE 55; RESP 18; TEMP 96.4; O2SAT 94
[2017-11-25 06:15] LABS: AUTOMATED NEUTROPHIL # 1.9 TH/MM3 (1.8-7.7); BASOPHIL # 0.1 TH/MM3 (0-0.2); BASOPHIL % 1.3 % (0.0-2.0); EOSINOPHIL # 0.1 TH/MM3 (0-0.4); EOSINOPHIL % 2.5 % (0.0-4.0); HEMATOCRIT 34.2 % (35.0-46.0); HEMOGLOBIN 10.9 GM/DL (11.6-15.3); LYMPH % 44.4 % (9.0-44.0); LYMPHOCYTE # 1.9 TH/MM3 (1.0-4.8); MEAN CELL VOLUME 94.9 FL (80.0-100.0); MEAN CORPUSCULAR HEMOGLOBIN 30.1 PG (27.0-34.0); MEAN CORPUSCULAR HGB CONC 31.7 % (32.0-36.0); MEAN PLATELET VOLUME 6.9 FL (7.0-11.0); MONO % 7.6 % (0.0-8.0); MONOCYTE # 0.3 TH/MM3 (0-0.9); NEUT % 44.2 % (16.0-70.0); PLATELET COUNT 175 TH/MM3 (150-450); RED CELL DISTRIBUTION WIDTH 15.5 % (11.6-17.2); WHITE BLOOD COUNT 4.3 TH/MM3 (4.0-11.0)
[2017-11-25 06:35] LABS: CALCIUM 8.6 MG/DL (8.5-10.1)
[2017-11-25 06:36] LABS: BICARBONATE 32.8 MEQ/L (21.0-32.0); MAGNESIUM 1.9 MG/DL (1.5-2.5)
[2017-11-25 06:39] LABS: CREATININE 0.74 MG/DL (0.50-1.00)
[2017-11-25 08:00] VITALS: BP 132/92; PULSE 53; RESP 20; TEMP 96.3; O2SAT 93
[2017-11-25] MEDS: CLOTRIMAZOLE 1% CREAM 15 GM TOPICAL SCH ×2 (09:00→21:22)
[2017-11-25] MEDS: LISINOPRIL 20 MG TAB PO SCH (09:00)
[2017-11-25] MEDS: QUEtiapine FUMARATE 100 MG TAB PO SCH ×2 (09:12→21:22)
[2017-11-25] MEDS: VALPROIC ACID 250 MG CAP PO SCH ×2 (09:12→21:21)
[2017-11-25] MEDS: FLUoxetine HCL 20 MG CAP PO SCH (09:12)
--- NOTE | 2017-11-25 11:12 | HHI.PR ---
Subjective Remarks Patient seen and examined today for follow-up on unsafe discharge due to cognition. Patient lying in bed comfortable. Denies any new complaints. Nursing staff indicates that the patient fell again last night. It was not conveyed of exactly how she fell. There is staff also indicates that the patient has had bradycardia with heart rate in the 50s today. Objective Vitals Vital Signs Date Time Temp Pulse Resp B/P (MAP) Pulse Ox O2 Delivery O2 Flow Rate FiO2 11/25/17 08:00 96.3 53 20 132/92 (105) 93 11/25/17 05:23 96.4 55 18 133/74 (93) 94 11/25/17 04:30 96.6 55 18 120/75 (90) 93 11/25/17 03:32 97.0 56 18 105/56 (72) 92 11/25/17 02:52 97.1 61 20 118/84 (95) 92 11/24/17 20:00 96.8 130 19 129/84 (99) 92 11/24/17 13:04 18 I/O 11/24/17 11/24/17 11/24/17 11/25/17 11/25/17 11/25/17 07:00 15:00 23:00 07:00 15:00 23:00 Intake Total 280 ml 600 ml Balance 280 ml 600 ml Intake Oral 280 ml 600 ml # Voids 2 3 2 # Bowel Movements 0 Result Diagram: 11/25/17 0600 11/25/17 0600 Objective Remarks GENERAL: Well-developed, well-nourished, in no acute distress. alert and orientated waxes and wanes daily HEENT: Head is normocephalic without any lesions or masses noted. Facial features are symmetric. Eyes: Extraocular muscles are intact. Conjunctivae were clear. NECK: C-collar in on table at bedside CARDIAC: Regular rhythm, regular rate. S1/S2 are heard. No murmurs gallops or rubs. LUNGS: Clear to auscultation bilaterally. No wheeze, rhonchi or rales. No use of accessory muscles on inspiration or expiration. ABDOMEN: Soft, nontender. Nondistended. Bowel sounds heard in all 4 quadrants. No organomegaly or masses. Negative rebound, negative guarding EXTREMITIES: No edema, pulses are equal bilaterally. No cyanosis or clubbing NEUROLOGY: Mood and affect appear appropriate. Cranial nerves II through XII grossly intact moving all extremities, speech is clear Urinary Catheter: No Vascular Central Line Catheter: No A/P Assessment and Plan Recurrent falls Continue physical therapy Laboratory studies indicating mild renal insufficiency We'll give 1 L of fluid Patient is with sitter Inability to care for self, unsafe discharge due to cognition Initially he was indicated patient cannot walk, patient is walking at this time, PT and OT recommending supervision at home for safety Speech therapy following the patient intermittently for cognitive evaluations. 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 MIni mental state 28/30, recommended avoid antipsychotics and benzodiazepine. Recommending Depakote or carbamazepine Patient is medically stable for discharge, however due to underlying psychiatric/cognition patient is unsafe discharge until arrangements made by case management Case management for discharge planning Neuropsychiatry evaluated the patient recommended patient may improve with treatment, however indicates avoid benzodiazepines and antipsychotics Continue Prozac 40 mg daily Depakene 500 mg twice daily Seroquel 100 mg twice daily *Discussed with psychiatry again about patient's cognition issues. He indicated that the patient lacks capacity for signing AMA or to participate in discharge plan. He is recommending that he would invite the ethics committee to the hospital to have a discussion about patient care *Consulted case management for ethics committee review, awaiting response Multiple traumatic injuries, Patient laceration, subdural hemorrhage, ventricular hemorrhage, nasal fracture, C6 fracture, C1-C2 subluxation, C4 transverse process fracture, right rib fracture, L1 transverse process fracture, right pubic rami fracture Continue c-collar this time, however patient does not wear Follow-up cervical spine CT 102/ indicates no evidence of acute fracture. Postsurgical changes Specialist no longer following patient, patient will require outpatient follow-up if discharge Right breast abscess, improved Physical exam patient does have a erythematous area with drainage Ultrasound does show complex loculated collection measuring 2.4 x 1.7 x 1.8 cm. Representing breast abscess Status post Augmentin 500 mg twice daily for 10 days., Bactrim DS for 18 days Gen. surgery consulted who recommends no intervention at this time, Soft tissue ultrasound shows a improvement of the fluid collection. Hypertension, uncontrolled with bradycardia this morning Amlodipine 10 mg daily Decreased to lisinopril 10 mg twice daily DVT prevention Patient ambulating Sequential compression devices while in bed Discharge Planning Case management for discharge planning, Conrado Mariee Nov 25, 2017 11:12
[2017-11-25] MEDS ORDERED: SODIUM CHLOR 0.9% 1000 ML INJ 1,000 ML IV SCH (11:15)
[2017-11-25 20:00] VITALS: BP 134/78; PULSE 64; RESP 17; TEMP 96.1; O2SAT 94
[2017-11-25] MEDS: LISINOPRIL 10 MG TAB PO SCH (21:21)
[2017-11-26 08:30] VITALS: BP 175/100; PULSE 53; RESP 16; TEMP 97.2; O2SAT 97
[2017-11-26] MEDS: CLOTRIMAZOLE 1% CREAM 15 GM TOPICAL SCH ×2 (09:00→21:43)
[2017-11-26] MEDS: LISINOPRIL 10 MG TAB PO SCH (09:40)
[2017-11-26] MEDS: QUEtiapine FUMARATE 100 MG TAB PO SCH ×2 (09:41→21:43)
[2017-11-26] MEDS: VALPROIC ACID 250 MG CAP PO SCH ×2 (09:41→21:43)
[2017-11-26] MEDS: FLUoxetine HCL 20 MG CAP PO SCH (09:41)
--- NOTE | 2017-11-26 12:49 | HHI.PR ---
Subjective Remarks Patient seen and examined today for follow-up on unsafe discharge due to cognition. Patient still having episodes of hypertension, bradycardia. Patient lisinopril was discontinued yesterday. Elevated blood pressure appears to be situational. Patient does get very agitated when she has sitters in the room. Patient denies any new complaints. Afebrile. Objective Vitals Vital Signs Date Time Temp Pulse Resp B/P (MAP) Pulse Ox O2 Delivery O2 Flow Rate FiO2 11/26/17 08:30 97.2 53 16 175/100 (125) 97 11/25/17 20:00 96.1 64 17 134/78 (96) 94 I/O 11/25/17 11/25/17 11/25/17 11/26/17 11/26/17 11/26/17 07:00 15:00 23:00 07:00 15:00 23:00 Intake Total 960 ml Balance 960 ml Intake Oral 960 ml # Voids 2 2 1 2 Result Diagram: 11/25/17 0600 11/25/17 0600 Objective Remarks GENERAL: Well-developed, well-nourished, in no acute distress. alert and orientated waxes and wanes daily HEENT: Head is normocephalic without any lesions or masses noted. Facial features are symmetric. Eyes: Extraocular muscles are intact. Conjunctivae were clear. NECK: C-collar in on table at bedside CARDIAC: Regular rhythm, regular rate. S1/S2 are heard. No murmurs gallops or rubs. LUNGS: Clear to auscultation bilaterally. No wheeze, rhonchi or rales. No use of accessory muscles on inspiration or expiration. ABDOMEN: Soft, nontender. Nondistended. Bowel sounds heard in all 4 quadrants. No organomegaly or masses. Negative rebound, negative guarding EXTREMITIES: No edema, pulses are equal bilaterally. No cyanosis or clubbing NEUROLOGY: Mood and affect appear appropriate. Cranial nerves II through XII grossly intact moving all extremities, speech is clear Urinary Catheter: No Vascular Central Line Catheter: No A/P Assessment and Plan Inability to care for self, unsafe discharge due to cognition Initially he was indicated patient cannot walk, patient is walking at this time, PT and OT recommending supervision at home for safety Speech therapy following the patient intermittently for cognitive evaluations. 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 MIni mental state 28/30, recommended avoid antipsychotics and benzodiazepine. Recommending Depakote or carbamazepine Patient is medically stable for discharge, however due to underlying psychiatric/cognition patient is unsafe discharge until arrangements made by case management Case management for discharge planning Neuropsychiatry evaluated the patient recommended patient may improve with treatment, however indicates avoid benzodiazepines and antipsychotics Continue Prozac 40 mg daily Depakene 500 mg twice daily Seroquel 100 mg twice daily *Discussed with psychiatry again about patient's cognition issues. He indicated that the patient lacks capacity for signing AMA or to participate in discharge plan. He is recommending that he would invite the ethics committee to the hospital to have a discussion about patient care *Consulted case management for ethics committee review, awaiting response Multiple traumatic injuries, Patient laceration, subdural hemorrhage, ventricular hemorrhage, nasal fracture, C6 fracture, C1-C2 subluxation, C4 transverse process fracture, right rib fracture, L1 transverse process fracture, right pubic rami fracture Continue c-collar this time, however patient does not wear Follow-up cervical spine CT 1026/17 indicates no evidence of acute fracture. Postsurgical changes Specialist no longer following patient, patient will require outpatient follow-up if discharge Right breast abscess, improved Physical exam patient does have a erythematous area with drainage Ultrasound does show complex loculated collection measuring 2.4 x 1.7 x 1.8 cm. Representing breast abscess Status post Augmentin 500 mg twice daily for 10 days., Bactrim DS for 18 days Gen. surgery consulted who recommends no intervention at this time, Soft tissue ultrasound shows a improvement of the fluid collection. Hypertension, uncontrolled with bradycardia this morning Amlodipine 10 mg daily lisinopril 10 mg daily Add Apresoline 25 mg every 8 hours DVT prevention Patient ambulating Sequential compression devices while in bed Discharge Planning Case management for discharge planning, Conrado Mariee Nov 26, 2017 12:48
[2017-11-26] MEDS: hydrALAZINE HCL 25 MG TAB PO SCH ×2 (14:00→21:43)
[2017-11-26 16:00] VITALS: BP 116/84; PULSE 66; RESP 16; TEMP 98.4; O2SAT 97
[2017-11-26] MEDS: ACETAMINOPHEN 325 MG TAB PO PRN (17:03)
[2017-11-26 20:00] VITALS: BP 112/76; PULSE 68; RESP 18; TEMP 97.3; O2SAT 94
[2017-11-27] MEDS: hydrALAZINE HCL 25 MG TAB PO SCH (05:01)
[2017-11-27] MEDS ORDERED: LISINOPRIL 10 MG TAB PO SCH (09:00)
[2017-11-27 09:21] VITALS: BP 117/76; PULSE 61; RESP 16
[2017-11-27] MEDS: VALPROIC ACID 250 MG CAP PO SCH ×2 (09:23→22:04)
[2017-11-27] MEDS: FLUoxetine HCL 20 MG CAP PO SCH (09:23)
[2017-11-27] MEDS: QUEtiapine FUMARATE 100 MG TAB PO SCH ×2 (09:25→22:04)
[2017-11-27] MEDS: CLOTRIMAZOLE 1% CREAM 15 GM TOPICAL SCH ×2 (09:25→22:04)
--- NOTE | 2017-11-27 09:46 | HHI.PR ---
Subjective Remarks Patient seen and examined today for follow-up on unsafe discharge due to cognition. Patient has had episodes of bradycardia which have improved at this time. Vital signs are stable, afebrile Objective Vitals Vital Signs Date Time Temp Pulse Resp B/P (MAP) Pulse Ox O2 Delivery O2 Flow Rate FiO2 11/27/17 09:21 61 16 117/76 (90) 11/26/17 20:00 97.3 68 18 112/76 (88) 94 11/26/17 16:00 98.4 66 16 116/84 (95) 97 I/O 11/26/17 11/26/17 11/26/17 11/27/17 11/27/17 11/27/17 07:00 15:00 23:00 07:00 15:00 23:00 Intake Total 600 ml 240 ml Balance 600 ml 240 ml Intake Oral 600 ml 240 ml # Voids 2 4 1 2 # Bowel Movements 1 1 Result Diagram: 11/25/17 0600 11/25/17 0600 Objective Remarks GENERAL: Well-developed, well-nourished, in no acute distress. alert and orientated waxes and wanes daily HEENT: Head is normocephalic without any lesions or masses noted. Facial features are symmetric. Eyes: Extraocular muscles are intact. Conjunctivae were clear. NECK: C-collar in on table at bedside CARDIAC: Regular rhythm, regular rate. S1/S2 are heard. No murmurs gallops or rubs. LUNGS: Clear to auscultation bilaterally. No wheeze, rhonchi or rales. No use of accessory muscles on inspiration or expiration. ABDOMEN: Soft, nontender. Nondistended. Bowel sounds heard in all 4 quadrants. No organomegaly or masses. Negative rebound, negative guarding EXTREMITIES: No edema, pulses are equal bilaterally. No cyanosis or clubbing NEUROLOGY: Mood and affect appear appropriate. Cranial nerves II through XII grossly intact moving all extremities, speech is clear Urinary Catheter: No Vascular Central Line Catheter: No A/P Assessment and Plan Inability to care for self, unsafe discharge due to cognition Initially he was indicated patient cannot walk, patient is walking at this time, PT and OT recommending supervision at home for safety Speech therapy following the patient intermittently for cognitive evaluations. 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 MIni mental state 28/30, recommended avoid antipsychotics and benzodiazepine. Recommending Depakote or carbamazepine Patient is medically stable for discharge, however due to underlying psychiatric/cognition patient is unsafe discharge until arrangements made by case management Case management for discharge planning Neuropsychiatry evaluated the patient recommended patient may improve with treatment, however indicates avoid benzodiazepines and antipsychotics Continue Prozac 40 mg daily Depakene 500 mg twice daily Seroquel 100 mg twice daily *Discussed with psychiatry again about patient's cognition issues. He indicated that the patient lacks capacity for signing AMA or to participate in discharge plan. He is recommending that he would invite the ethics committee to the hospital to have a discussion about patient care *Consulted case management for ethics committee review, awaiting response Multiple traumatic injuries, Patient laceration, subdural hemorrhage, ventricular hemorrhage, nasal fracture, C6 fracture, C1-C2 subluxation, C4 transverse process fracture, right rib fracture, L1 transverse process fracture, right pubic rami fracture Continue c-collar this time, however patient does not wear Follow-up cervical spine CT 1026/17 indicates no evidence of acute fracture. Postsurgical changes Specialist no longer following patient, patient will require outpatient follow-up if discharge Right breast abscess, improved Physical exam patient does have a erythematous area with drainage Ultrasound does show complex loculated collection measuring 2.4 x 1.7 x 1.8 cm. Representing breast abscess Status post Augmentin 500 mg twice daily for 10 days., Bactrim DS for 18 days Gen. surgery consulted who recommends no intervention at this time, Soft tissue ultrasound shows a improvement of the fluid collection. Hypertension, uncontrolled with bradycardia this morning Amlodipine 10 mg daily lisinopril 10 mg daily Apresoline 25 mg every 8 hours DVT prevention Patient ambulating Sequential compression devices while in bed Records reviewed, no change in current treatment plan, awaiting case management for discharge planning Discharge Planning Case management for discharge planning, Conrado Mariee Nov 27, 2017 09:46
[2017-11-27 12:40] VITALS: BP_SYST 109; BP_SYST 123; BP_SYST 99; BP_DIAS 79; BP_DIAS 81; BP_DIAS 88; PULSE 63; RESP 18; TEMP 96.8; O2SAT 95
[2017-11-27 16:00] VITALS: BP 111/75; PULSE 73; RESP 16; TEMP 97.1; O2SAT 95
[2017-11-27 20:00] VITALS: BP 131/76; PULSE 80; RESP 20; TEMP 96.7; O2SAT 93
[2017-11-27] MEDS: amLODIPine BESYLATE 5 MG TAB PO SCH (22:04)
--- NOTE | 2017-11-28 07:34 | HHI.PR ---
Subjective Remarks Patient seen and examined today for a safe discharge due to cognition. Nursing staff indicates patient is falling more recently. Patient states that she's been experiencing lightheadedness whenever she stands up. Nursing staff indicates that patient is weak in her legs and her knees buckle. Patient is stating that she is having neck pain today after the fall. Patient has have history of cervical fracture, she refused to wear c-collar during her stay in the hospital. Repeat CT scans in August did not indicate any acute abnormality or changes. Objective Vitals Vital Signs Date Time Temp Pulse Resp B/P (MAP) Pulse Ox O2 Delivery O2 Flow Rate FiO2 11/27/17 20:00 96.7 80 20 131/76 (94) 93 11/27/17 16:00 97.1 73 16 111/75 (87) 95 11/27/17 12:40 96.8 63 18 109/79 (89) 95 123/88 (100) 99/81 (87) 11/27/17 09:21 61 16 117/76 (90) I/O 11/27/17 11/27/17 11/27/17 11/28/17 11/28/17 11/28/17 07:00 15:00 23:00 07:00 15:00 23:00 Intake Total 240 ml 750 ml 100 ml 240 ml Balance 240 ml 750 ml 100 ml 240 ml Intake Oral 240 ml 750 ml 100 ml 240 ml # Voids 2 3 4 # Bowel Movements 1 Result Diagram: 11/25/17 0600 11/25/17 0600 Objective Remarks GENERAL: Well-developed, well-nourished, in no acute distress. alert and orientated waxes and wanes daily HEENT: Head is normocephalic without any lesions or masses noted. Facial features are symmetric. Eyes: Extraocular muscles are intact. Conjunctivae were clear. NECK: C-collar in on table at bedside CARDIAC: Regular rhythm, regular rate. S1/S2 are heard. No murmurs gallops or rubs. LUNGS: Clear to auscultation bilaterally. No wheeze, rhonchi or rales. No use of accessory muscles on inspiration or expiration. ABDOMEN: Soft, nontender. Nondistended. Bowel sounds heard in all 4 quadrants. No organomegaly or masses. Negative rebound, negative guarding EXTREMITIES: No edema, pulses are equal bilaterally. No cyanosis or clubbing NEUROLOGY: Mood and affect appear appropriate. Cranial nerves II through XII grossly intact moving all extremities, speech is clear Urinary Catheter: No Vascular Central Line Catheter: No A/P Assessment and Plan Recurrent falls Nursing staff indicates that patient gets weak in her knees when she is standing up, patient states that she does get lightheaded/dizzy when standing Patient does state that she is having neck pain Patient denies any neurological symptoms of weakness, paresthesia, loss of bowel or bladder control Orthostatic vitals do show drop in systolic blood pressure when standing. We'll give 1 L normal saline and continue monitor orthostatic vitals Check MRI of the neck Inability to care for self, unsafe discharge due to cognition Initially he was indicated patient cannot walk, patient is walking at this time, PT and OT recommending supervision at home for safety Speech therapy following the patient intermittently for cognitive evaluations. 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 MIni mental state 28/30, recommended avoid antipsychotics and benzodiazepine. Recommending Depakote or carbamazepine Patient is medically stable for discharge, however due to underlying psychiatric/cognition patient is unsafe discharge until arrangements made by case management Case management for discharge planning Neuropsychiatry evaluated the patient recommended patient may improve with treatment, however indicates avoid benzodiazepines and antipsychotics Continue Prozac 40 mg daily Depakene 500 mg twice daily Seroquel 100 mg twice daily *Discussed with psychiatry again about patient's cognition issues. He indicated that the patient lacks capacity for signing AMA or to participate in discharge plan. He is recommending that he would invite the ethics committee to the hospital to have a discussion about patient care *Consulted case management for ethics committee review, awaiting response Multiple traumatic injuries, Patient laceration, subdural hemorrhage, ventricular hemorrhage, nasal fracture, C6 fracture, C1-C2 subluxation, C4 transverse process fracture, right rib fracture, L1 transverse process fracture, right pubic rami fracture Continue c-collar this time, however patient does not wear Follow-up cervical spine CT indicates no evidence of acute fracture. Postsurgical changes Specialist no longer following patient, patient will require outpatient follow-up if discharge Right breast abscess, improved Physical exam patient does have a erythematous area with drainage Ultrasound does show complex loculated collection measuring 2.4 x 1.7 x 1.8 cm. Representing breast abscess Status post Augmentin 500 mg twice daily for 10 days., Bactrim DS for 18 days Gen. surgery consulted who recommends no intervention at this time, Soft tissue ultrasound shows a improvement of the fluid collection. Hypertension, uncontrolled with bradycardia this morning Amlodipine 10 mg daily lisinopril 10 mg daily Apresoline 25 mg every 8 hours DVT prevention Patient ambulating Sequential compression devices while in bed Discharge Planning Case management for discharge planning, Conrado Mariee Nov 28, 2017 07:34
[2017-11-28 08:00] VITALS: BP_SYST 125; BP_SYST 134; BP_SYST 139; BP_DIAS 84; BP_DIAS 86; BP_DIAS 94; PULSE 79; RESP 18; TEMP 97.7; O2SAT 94
[2017-11-28] MEDS: QUEtiapine FUMARATE 100 MG TAB PO SCH ×2 (08:19→20:30)
[2017-11-28] MEDS: VALPROIC ACID 250 MG CAP PO SCH ×2 (08:19→20:31)
[2017-11-28] MEDS: CLOTRIMAZOLE 1% CREAM 15 GM TOPICAL SCH ×2 (08:19→20:31)
[2017-11-28] MEDS: FLUoxetine HCL 20 MG CAP PO SCH (08:19)
[2017-11-28] MEDS: SODIUM CHLOR 0.9% 1000 ML INJ 1,000 ML IV SCH ×2 (08:19→20:30)
[2017-11-28] MEDS ORDERED: GADODIAMIDE PF 287 MG/ML 10 ML VIAL (for RAD MRI) IVCONTRAST ONE (15:30)
[2017-11-28 16:00] VITALS: BP 120/79; PULSE 64; RESP 18; TEMP 97.7
--- NOTE | 2017-11-28 16:04 | RADRPT ---
EXAM DATE/TIME: 11/28/2017 15:10 [facility] COMPARISON: No previous studies available for comparison. INDICATIONS : Inability to ambulate. Frequent falls. CONTRAST: 10 cc Omniscan (gadodiamide) IV MEDICAL HISTORY : Hypertension. SURGICAL HISTORY : Fusion, cervical. ENCOUNTER: Initial ACUITY: 4-6 months PAIN SCORE: 2/10 LOCATION: Paraspinal TECHNIQUE: Multiplanar, multisequence MRI examination of the cervical spine was performed. FINDINGS: Motion artifact. VERTEBRAE: Normal vertebral body height. Homogeneous marrow signal. Anterior fusion at C6-7 with intervertebral disc device. ALIGNMENT: No evidence of subluxation. CORD: Normal configuration and signal. POST FOSSA: The cerebellar tonsils are normal in position. POST-CONTRAST: No abnormal areas of enhancement are seen. C2-C3: The thecal sac has a normal configuration. There is no evidence of disc herniation or spinal canal stenosis. The neural foramina are patent bilaterally. C3-C4: Mild broad-based protrusion abuts the ventral thecal sac. No canal stenosis. Moderate bilateral neura l foraminal narrowing. C4-C5: Mild broad-based protrusion abuts the ventral thecal sac. No canal stenosis. Moderate bilateral neura l foraminal narrowing. C5-C6: Mild left-sided protrusion abuts the ventral cord and ventral thecal sac. There appears to be a mild degree of canal stenosis. Uncovertebral spurring causes mild bilateral neural foraminal narrowing, gr eater the left. C6-C7: Anterior fusion. The thecal sac has a normal configuration. There is no evidence of disc herniation or spinal canal stenosis. Uncovertebral spurring causes mild bilateral neural foraminal encroachment. C7-T1: Mild broad-based protrusion slightly eccentric the left. This abuts the ventral thecal sac. No canal stenosis. The neural foramina are patent bilaterally. CONCLUSION: 1. Multilevel posterior disc osteophyte complexes as described above. 2. Anterior fusion C6-7. Dylon Haddad MD on November 28, 2017 at 15:56 Board Certified Radiologist. This report was verified electronically.
[2017-11-28 20:00] VITALS: BP_SYST 121; BP_DIAS 85; BP_DIAS 91; PULSE 76; PULSE 85; RESP 18; TEMP 98; O2SAT 93
[2017-11-28] MEDS: amLODIPine BESYLATE 5 MG TAB PO SCH (20:31)
[2017-11-29 08:00] VITALS: BP_SYST 161; BP_SYST 163; BP_SYST 166; BP_DIAS 105; BP_DIAS 106; BP_DIAS 112; PULSE 95; RESP 14; TEMP 96.5; O2SAT 92
[2017-11-29] MEDS: VALPROIC ACID 250 MG CAP PO SCH ×2 (09:01→21:19)
[2017-11-29] MEDS: CLOTRIMAZOLE 1% CREAM 15 GM TOPICAL SCH ×2 (09:01→21:19)
[2017-11-29] MEDS: FLUoxetine HCL 20 MG CAP PO SCH (09:01)
[2017-11-29] MEDS: QUEtiapine FUMARATE 100 MG TAB PO SCH ×2 (09:01→21:19)
--- NOTE | 2017-11-29 09:13 | HHI.PR ---
Subjective Remarks Patient seen and examined today for follow-up on unsafe discharge due to cognition, recurrent falls. Patient denies any new complaints today. No change in clinical status. Awaiting case management for discharge planning Objective Vitals Vital Signs Date Time Temp Pulse Resp B/P (MAP) Pulse Ox O2 Delivery O2 Flow Rate FiO2 11/28/17 20:00 85 121/91 (101) 11/28/17 20:00 98.0 76 18 121/85 (97) 93 11/28/17 16:00 97.7 64 18 120/79 (93) I/O 11/28/17 11/28/17 11/28/17 11/29/17 11/29/17 11/29/17 07:00 15:00 23:00 07:00 15:00 23:00 Intake Total 240 ml 1000 ml 619 ml Balance 240 ml 1000 ml 619 ml Intake Oral 240 ml IV Total 1000 ml 619 ml # Voids 4 2 3 # Bowel Movements 1 Result Diagram: 11/25/17 0600 11/25/17 0600 Objective Remarks GENERAL: Well-developed, well-nourished, in no acute distress. alert and orientated waxes and wanes daily HEENT: Head is normocephalic without any lesions or masses noted. Facial features are symmetric. Eyes: Extraocular muscles are intact. Conjunctivae were clear. NECK: C-collar in on table at bedside CARDIAC: Regular rhythm, regular rate. S1/S2 are heard. No murmurs gallops or rubs. LUNGS: Clear to auscultation bilaterally. No wheeze, rhonchi or rales. No use of accessory muscles on inspiration or expiration. ABDOMEN: Soft, nontender. Nondistended. Bowel sounds heard in all 4 quadrants. No organomegaly or masses. Negative rebound, negative guarding EXTREMITIES: No edema, pulses are equal bilaterally. No cyanosis or clubbing NEUROLOGY: Mood and affect appear appropriate. Cranial nerves II through XII grossly intact moving all extremities, speech is clear Urinary Catheter: No Vascular Central Line Catheter: No A/P Assessment and Plan Recurrent falls Nursing staff indicates that patient gets weak in her knees when she is standing up, patient states that she does get lightheaded/dizzy when standing Patient does state that she is having neck pain Patient denies any neurological symptoms of weakness, paresthesia, loss of bowel or bladder control Orthostatic vitals do show drop in systolic blood pressure when standing. Improved after hydration Status post 2 L normal saline and continue monitor orthostatic vitals MRI of the neck. Multilevel degenerative changes. Mild degree of canal stenosis C5-C6, anterior fusion C6-C7 Check carotid ultrasound If patient has any more falls, may need to pursue neurological evaluation, MRI of the thoracic and lumbar spine Inability to care for self, unsafe discharge due to cognition Initially he was indicated patient cannot walk, patient is walking at this time, PT and OT recommending supervision at home for safety Speech therapy following the patient intermittently for cognitive evaluations. 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 MIni mental state 28/30, recommended avoid antipsychotics and benzodiazepine. Recommending Depakote or carbamazepine Patient is medically stable for discharge, however due to underlying psychiatric/cognition patient is unsafe discharge until arrangements made by case management Case management for discharge planning Neuropsychiatry evaluated the patient recommended patient may improve with treatment, however indicates avoid benzodiazepines and antipsychotics Continue Prozac 40 mg daily Depakene 500 mg twice daily Seroquel 100 mg twice daily *Discussed with psychiatry again about patient's cognition issues. He indicated that the patient lacks capacity for signing AMA or to participate in discharge plan. He is recommending that he would invite the ethics committee to the hospital to have a discussion about patient care *Consulted case management for ethics committee review, awaiting response Multiple traumatic injuries, Patient laceration, subdural hemorrhage, ventricular hemorrhage, nasal fracture, C6 fracture, C1-C2 subluxation, C4 transverse process fracture, right rib fracture, L1 transverse process fracture, right pubic rami fracture Continue c-collar this time, however patient does not wear Follow-up cervical spine CT 1026/17 indicates no evidence of acute fracture. Postsurgical changes Specialist no longer following patient, patient will require outpatient follow-up if discharge Right breast abscess, improved Physical exam patient does have a erythematous area with drainage Ultrasound does show complex loculated collection measuring 2.4 x 1.7 x 1.8 cm. Representing breast abscess Status post Augmentin 500 mg twice daily for 10 days., Bactrim DS for 18 days Gen. surgery consulted who recommends no intervention at this time, Soft tissue ultrasound shows a improvement of the fluid collection. Hypertension, uncontrolled with bradycardia this morning Amlodipine 10 mg daily lisinopril 10 mg daily Apresoline 25 mg every 8 hours DVT prevention Patient ambulating Sequential compression devices while in bed Discharge Planning Case management for discharge planning, Conrado Mariee Nov 29, 2017 09:13
[2017-11-29 11:00] VITALS: BP 154/91
[2017-11-29 20:00] VITALS: BP_SYST 144; BP_SYST 155; BP_SYST 156; BP_DIAS 105; BP_DIAS 96; PULSE 62; RESP 16; TEMP 97.8; O2SAT 96
[2017-11-29] MEDS: amLODIPine BESYLATE 5 MG TAB PO SCH (21:19)
[2017-11-30] VITALS: BP 133/93; PULSE 65; RESP 16; TEMP 96.4; O2SAT 93
[2017-11-30 08:00] VITALS: BP 148/91; PULSE 61; RESP 13; TEMP 98.2; O2SAT 93
[2017-11-30] MEDS: QUEtiapine FUMARATE 100 MG TAB PO SCH ×2 (08:42→21:47)
[2017-11-30] MEDS: FLUoxetine HCL 20 MG CAP PO SCH (08:43)
[2017-11-30] MEDS: VALPROIC ACID 250 MG CAP PO SCH ×2 (08:43→21:47)
[2017-11-30] MEDS: CLOTRIMAZOLE 1% CREAM 15 GM TOPICAL SCH ×2 (08:45→21:51)
--- NOTE | 2017-11-30 10:19 | HHI.PR ---
Subjective Remarks Follow-up unsafe discharge due to cognition. Patient seen and examined, lying in bed comfortably asleep. Awakens to voice. Denies any pain including back or neck pain. No acute events overnight. MRI of the neck done. Awaiting ultrasound carotids. No further falls. Objective Vitals Vital Signs Date Time Temp Pulse Resp B/P (MAP) Pulse Ox O2 Delivery O2 Flow Rate FiO2 11/30/17 08:00 98.2 61 13 148/91 (110) 93 11/30/17 00:00 96.4 65 16 133/93 (106) 93 11/29/17 20:00 97.8 62 16 156/96 (116) 96 155/105 (122) 144/96 (112) 11/29/17 11:00 154/91 (112) I/O 11/29/17 11/29/17 11/29/17 11/30/17 11/30/17 11/30/17 07:00 15:00 23:00 07:00 15:00 23:00 Intake Total 619 ml 222 ml 564 ml 240 ml Balance 619 ml 222 ml 564 ml 240 ml Intake Oral 222 ml 564 ml 240 ml IV Total 619 ml # Voids 3 8 2 # Bowel Movements 1 0 0 Imaging Last Impressions Cervical Spine MRI 11/28/17 0000 Signed Impressions: Service Date/Time: Tuesday, November 28, 2017 15:10 - CONCLUSION: 1. Multilevel posterior disc osteophyte complexes as described above. 2. Anterior fusion C6- 7. Dylon Haddad MD Knee X-Ray 11/02/17 0000 Signed Impressions: Service Date/Time: Thursday, November 02, 2017 18:51 - CONCLUSION: Intact right knee. Jovany Hayes MD Head CT 11/02/17 0000 Signed Impressions: Service Date/Time: Thursday, November 02, 2017 18:35 - CONCLUSION: 1. No bleed or other acute intracranial abnormality. 2. Previously seen intracranial hemorrhage has resolved. A small area of chronic encephalomalacia has developed of the right frontal lobe. 3. Chronic periventricular white matter changes are again noted. Jovany Hayes MD Breast Ultrasound 10/15/17 0000 Signed Impressions: Service Date/Time: Sunday, October 15, 2017 09:06 - CONCLUSION: Persistent subcutaneous collection at the 12:00 position of the right breast. It has slightly decreased in size since the study dated 09/23/2017 and could represent an infectious process. Consider followup to confirm resolution. Jovany Quezada MD Chest X-Ray 09/03/17 0000 Signed Impressions: Service Date/Time: Sunday, September 03, 2017 17:02 - CONCLUSION: 1. Mild edema pattern. Subsegmental basilar airspace disease most characteristic of atelectasis.. Fadi Carolina MD Cervical Spine CT 09/02/17 0000 Signed Impressions: Service Date/Time: August 12:56 - CONCLUSION: Postsurgical changes from anterior cervical plate at C6-7. No evidence of compression deformity or spondylolisthesis. Arun Regan MD Pelvis X-Ray 06/30/17 0000 Signed Impressions: Service Date/Time: Friday, June 30, 2017 12:17 - CONCLUSION: No significant change has occurred. Carlos Capps MD Objective Remarks GENERAL: Well-nourished, well-developed female in NAD. SKIN: Warm and dry. No rash. Right breast abscess improved. HEENT: Normocephalic. Atraumatic. Pupils equal and round. No scleral icterus. No injection or drainage. No nasal bleeding or discharge. Mucous membranes pink and moist. NECK: Supple. Trachea midline. CARDIOVASCULAR: Regular rate and rhythm. S1, S2 noted. No murmur appreciated. RESPIRATORY: No accessory muscle use. Clear to auscultation. Breath sounds equal bilaterally. GASTROINTESTINAL: Abdomen soft, non-tender, nondistended. Normoactive bowel sounds x4. No guarding noted. MUSCULOSKELETAL: No obvious deformities. Extremities without clubbing, cyanosis , or edema. NEUROLOGICAL: Awake and alert. No obvious cranial nerve deficits. Motor grossly within normal limits. 5/5 muscle strength in bilateral upper and lower extremities. Normal speech. PSYCHIATRIC: Appropriate mood and affect. A/P Problem List: (1) Alcohol dependence in controlled environment ICD Code: F10.20 - Alcohol dependence, uncomplicated Status: Chronic (2) Facial injury ICD Code: S09.93XA - Unspecified injury of face, initial encounter Status: Acute (3) Fall ICD Code: W19.XXXA - Unspecified fall, initial encounter Status: Acute (4) Hypertension ICD Code: I10 - Essential (primary) hypertension Status: Acute (5) Pelvic fracture ICD Code: S32.9XXA - Fracture of unspecified parts of lumbosacral spine and pelvis, initial encounter for closed fracture Status: Acute (6) C1-C2 subluxation ICD Code: S13.120A - Subluxation of C1/C2 cervical vertebrae, initial encounter Status: Acute (7) C6 cervical fracture ICD Code: S12.500A - Unspecified displaced fracture of sixth cervical vertebra , initial encounter for closed fracture Status: Acute (8) Traumatic brain injury ICD Code: S06.9X9A - Unspecified intracranial injury with loss of consciousness of unspecified duration, initial encounter Status: Acute (9) Nasal fracture ICD Code: S02.2XXA - Fracture of nasal bones, initial encounter for closed fracture Status: Acute (10) Mild neurocognitive disorder ICD Code: G31.84 - Mild cognitive impairment, so stated Status: Acute (11) Intracranial bleed ICD Code: I62.9 - Nontraumatic intracranial hemorrhage, unspecified Status: Acute Assessment and Plan Recurrent falls Nursing staff indicates that patient gets weak in her knees when she is standing up, patient states that she does get lightheaded/dizzy when standing. Denies any current lightheadedness of dizziness. Patient denies any neurological symptoms of weakness, paresthesia, loss of bowel or bladder control Orthostatic vitals do show a slight drop in systolic blood pressure when standing. Improved after hydration Status post 2 L normal saline and continue monitor orthostatic vitals. MRI of the neck. Multilevel degenerative changes. Mild degree of canal stenosis C5-C6, anterior fusion C6-C7 Check carotid ultrasound, pending. If patient has any more falls, may need to pursue neurological evaluation, MRI of the thoracic and lumbar spine Inability to care for self, unsafe discharge due to cognition Initially it was indicated patient cannot walk, patient is walking at this time, PT and OT recommending supervision at home for safety. Speech therapy following the patient intermittently for cognitive evaluations. MOCA score 20/30, she needs to have supervision Psychiatry indicates that secondary to her frontal lobe injury her cognition changes on a daily basis. Mini mental state 28/30, recommended avoid antipsychotics for benzodiazepine. Recommending Depakote or carbamazepine Patient is medically stable for discharge, however due to underlying psychiatric/cognition patient is unsafe discharge until arrangements made by case management Case management for discharge planning. Neuropsychiatry evaluated the patient recommended patient may improve with treatment, however indicates avoid benzodiazepines and antipsychotics. Continue Prozac 40 mg daily, Depakene 500 mg twice daily and Seroquel 50 mg every 8 hours *Psychiatry has deemed patient incapable for signing AMA or to participate in discharge plan. He is recommending that he would invite the ethics committee to the hospital to have a discussion about patient care. *Consulted case management for ethics committee review, awaiting response. Multiple traumatic injuries Patient laceration, subdural hemorrhage, ventricular hemorrhage, nasal fracture, C6 fracture, C1-C2 subluxation, C4 transverse process fracture, right rib fracture, L1 transverse process fracture, right pubic rami fracture Continue c-collar this time, however patient does not wear Specialist no longer following patient, patient will require outpatient follow-up if discharge Right breast abscess, Improved. Physical exam shows improvement. Ultrasound does show complex loculated collection measuring 2.4 x 1.7 x 1.8 cm. Representing breast abscess Status post Augmentin 500 mg twice daily for 10 days (end date 10/25/17). Finished Bactrim DS for 18 days Gen. surgery consulted who recommends no intervention at this time. Soft tissue ultrasound shows a improvement of the fluid collection. Hypertension Blood pressures more controlled at this time. Will continue to monitor. Amlodipine 10 mg daily lisinopril 10 mg daily Status post fall, 10/23/[address] obtained and reviewed showing no acute fracture or bleed. Right knee x-ray showing no fracture. Orthostatic BPs unremarkable. Continue to monitor neuro status closely. No further fall incidences. No further dizziness. DVT prevention Patient ambulating Sequential compression devices while in bed Records were reviewed. Awaiting case management for discharge planning, No change in current treatment plan. Discharge Planning Due to underlying psychiatric/cognition patient is unsafe discharge until arrangements made by case management. Problem Qualifiers (1) Hypertension: Qualified Codes: I10 - Essential (primary) hypertension Alyssa Means Nov 30, 2017 10:19
--- NOTE | 2017-11-30 16:44 | RADRPT ---
EXAM DATE/TIME: 11/30/2017 14:34 [facility] COMPARISON: No previous studies available for comparison. INDICATIONS : Syncope. MEDICAL HISTORY : Intracranial bleed. Arthritis. Macular degeneration. CVA. Blood clot. Hypertension. Pelvic fracture. Cervical fracture. Osteoporosis. ETOH abuse. SURGICAL HISTORY : Fusion, cervical. Right leg surgery. ENCOUNTER: Initial ACUITY: 1 day PAIN SCORE: 0/10 LOCATION: Bilateral neck PEAK SYSTOLIC VELOCITIES (cm/sec): ICA/CCA RATIO: Right: 0.5 Left: 0.5 ICA: Right: 40 Left: 46 CCA: Right: 77 Left: 89 ECA: Right: 83 Left: 66 VERTEBRAL: Right: 37 antegrade Left: 49 antegrade Elevated flow velocities and ICA/CCA ratios have been found to correlate with increased degrees of vessel stenosis, calculated as percentage of diameter relative to a normal segment of distal ICA/CCA FINDINGS: RIGHT CAROTID: No significant stenosis is visualized. The waveforms are within normal limits. LEFT CAROTID: No significant stenosis is visualized. The waveforms are within normal limits. VERTEBRAL ARTERIES: Antegrade flow is seen in both vertebral arteries. MISCELLANEOUS: None. CONCLUSION: 1. Mild plaque with no hemodynamically significant stenosis. Vertebral artery flow antegrade. Fadi Carolina MD on November 30, 2017 at 16:38 Board Certified Radiologist. This report was verified electronically.
[2017-11-30 20:00] VITALS: BP_SYST 116; BP_SYST 126; BP_SYST 142; BP_DIAS 79; BP_DIAS 81; BP_DIAS 85; PULSE 75; RESP 18; TEMP 96.6; O2SAT 96
[2017-11-30] MEDS: amLODIPine BESYLATE 5 MG TAB PO SCH (21:47)
[2017-11-30] MEDS: ACETAMINOPHEN 325 MG TAB PO PRN (21:48)
[2017-12-01 08:00] VITALS: BP_SYST 133; BP_SYST 152; BP_SYST 160; BP_DIAS 77; BP_DIAS 87; BP_DIAS 96; PULSE 52; RESP 16; TEMP 97.7; O2SAT 97
[2017-12-01] MEDS: VALPROIC ACID 250 MG CAP PO SCH ×2 (08:20→20:53)
[2017-12-01] MEDS: QUEtiapine FUMARATE 100 MG TAB PO SCH ×2 (08:20→20:53)
[2017-12-01] MEDS: FLUoxetine HCL 20 MG CAP PO SCH (08:21)
[2017-12-01] MEDS: CLOTRIMAZOLE 1% CREAM 15 GM TOPICAL SCH ×2 (08:21→20:53)
--- NOTE | 2017-12-01 12:34 | HHI.PR ---
Subjective Remarks Follow-up unsafe discharge due to cognition. Patient seen and examined, lying in bed asleep awakens to voice. Patient is awake and alert pleasantly confused states she is tired was up all night. Denies any acute events denies any pain. Vital signs are stable. Eating well, denies any abdominal pain with nausea or vomiting. Objective Vitals Vital Signs Date Time Temp Pulse Resp B/P (MAP) Pulse Ox O2 Delivery O2 Flow Rate FiO2 12/01/17 08:00 97.7 52 16 152/77 (102) 97 160/96 (117) 133/87 (102) 11/30/17 22:48 20 11/30/17 20:00 96.6 75 18 126/79 (95) 96 142/85 (104) 116/81 (93) I/O 11/30/17 11/30/17 11/30/17 12/01/17 12/01/17 12/01/17 07:00 15:00 23:00 07:00 15:00 23:00 Intake Total 240 ml 300 ml 300 ml 480 ml Balance 240 ml 300 ml 300 ml 480 ml Intake Oral 240 ml 300 ml 300 ml 480 ml # Voids 2 2 # Bowel Movements 0 1 Imaging Last Impressions Carotid Artery Ultrasound 11/30/17 0000 Signed Impressions: Service Date/Time: Thursday, November 30, 2017 14:34 - CONCLUSION: 1. Mild plaque with no hemodynamically significant stenosis. Vertebral artery flow antegrade. Fadi Carolina MD Cervical Spine MRI 11/28/17 0000 Signed Impressions: Service Date/Time: Tuesday, November 28, 2017 15:10 - CONCLUSION: 1. Multilevel posterior disc osteophyte complexes as described above. 2. Anterior fusion C6- 7. Dylon Haddad MD Knee X-Ray 11/02/17 0000 Signed Impressions: Service Date/Time: Thursday, November 02, 2017 18:51 - CONCLUSION: Intact right knee. Jovany Hayes MD Head CT 11/02/17 0000 Signed Impressions: Service Date/Time: Thursday, November 02, 2017 18:35 - CONCLUSION: 1. No bleed or other acute intracranial abnormality. 2. Previously seen intracranial hemorrhage has resolved. A small area of chronic encephalomalacia has developed of the right frontal lobe. 3. Chronic periventricular white matter changes are again noted. Jovany Hayes MD Breast Ultrasound 10/15/17 0000 Signed Impressions: Service Date/Time: Sunday, October 15, 2017 09:06 - CONCLUSION: Persistent subcutaneous collection at the 12:00 position of the right breast. It has slightly decreased in size since the study dated 09/23/2017 and could represent an infectious process. Consider followup to confirm resolution. Jovany Quezada MD Chest X-Ray 09/03/17 0000 Signed Impressions: Service Date/Time: Sunday, September 03, 2017 17:02 - CONCLUSION: 1. Mild edema pattern. Subsegmental basilar airspace disease most characteristic of atelectasis.. Fadi Carolina MD Cervical Spine CT 09/02/17 0000 Signed Impressions: Service Date/Time: August 12:56 - CONCLUSION: Postsurgical changes from anterior cervical plate at C6-7. No evidence of compression deformity or spondylolisthesis. Arun Regan MD Pelvis X-Ray 06/30/17 0000 Signed Impressions: Service Date/Time: Friday, June 30, 2017 12:17 - CONCLUSION: No significant change has occurred. Carlos Capps MD Objective Remarks GENERAL: Well-nourished, well-developed female in NAD. SKIN: Warm and dry. No rash. Right breast abscess improved. HEENT: Normocephalic. Atraumatic. Pupils equal and round. No scleral icterus. No injection or drainage. No nasal bleeding or discharge. Mucous membranes pink and moist. NECK: Supple. Trachea midline. CARDIOVASCULAR: Regular rate and rhythm. S1, S2 noted. No murmur appreciated. RESPIRATORY: No accessory muscle use. Clear to auscultation. Breath sounds equal bilaterally. GASTROINTESTINAL: Abdomen soft, non-tender, nondistended. Normoactive bowel sounds x4. No guarding noted. MUSCULOSKELETAL: No obvious deformities. Extremities without clubbing, cyanosis , or edema. NEUROLOGICAL: Awake and alert. No obvious cranial nerve deficits. Motor grossly within normal limits. 5/5 muscle strength in bilateral upper and lower extremities. Normal speech. PSYCHIATRIC: Appropriate mood and affect. A/P Problem List: (1) Alcohol dependence in controlled environment ICD Code: F10.20 - Alcohol dependence, uncomplicated Status: Chronic (2) Facial injury ICD Code: S09.93XA - Unspecified injury of face, initial encounter Status: Acute (3) Fall ICD Code: W19.XXXA - Unspecified fall, initial encounter Status: Acute (4) Hypertension ICD Code: I10 - Essential (primary) hypertension Status: Acute (5) Pelvic fracture ICD Code: S32.9XXA - Fracture of unspecified parts of lumbosacral spine and pelvis, initial encounter for closed fracture Status: Acute (6) C1-C2 subluxation ICD Code: S13.120A - Subluxation of C1/C2 cervical vertebrae, initial encounter Status: Acute (7) C6 cervical fracture ICD Code: S12.500A - Unspecified displaced fracture of sixth cervical vertebra , initial encounter for closed fracture Status: Acute (8) Traumatic brain injury ICD Code: S06.9X9A - Unspecified intracranial injury with loss of consciousness of unspecified duration, initial encounter Status: Acute (9) Nasal fracture ICD Code: S02.2XXA - Fracture of nasal bones, initial encounter for closed fracture Status: Acute (10) Mild neurocognitive disorder ICD Code: G31.84 - Mild cognitive impairment, so stated Status: Acute (11) Intracranial bleed ICD Code: I62.9 - Nontraumatic intracranial hemorrhage, unspecified Status: Acute Assessment and Plan Recurrent falls Nursing staff indicates that patient gets weak in her knees when she is standing up, patient states that she does get lightheaded/dizzy when standing. Denies any current lightheadedness of dizziness. Patient denies any neurological symptoms of weakness, paresthesia, loss of bowel or bladder control Orthostatic vitals do show a slight drop in systolic blood pressure when standing. Improved after hydration. Status post 2 L normal saline and continue monitor orthostatic vitals. MRI of the neck. Multilevel degenerative changes. Mild degree of canal stenosis C5-C6, anterior fusion C6-C7 Check carotid ultrasound, pending. Patient is still weak on her feet. Will order an MRI of the thoracic and lumbar spine. Follow. Inability to care for self, unsafe discharge due to cognition Initially it was indicated patient cannot walk, patient is walking at this time, PT and OT recommending supervision at home for safety. Speech therapy following the patient intermittently for cognitive evaluations. MOCA score 20/30, she needs to have supervision Psychiatry indicates that secondary to her frontal lobe injury her cognition changes on a daily basis. Mini mental state 28/30, recommended avoid antipsychotics for benzodiazepine. Recommending Depakote or carbamazepine Patient is medically stable for discharge, however due to underlying psychiatric/cognition patient is unsafe discharge until arrangements made by case management Case management for discharge planning. Neuropsychiatry evaluated the patient recommended patient may improve with treatment, however indicates avoid benzodiazepines and antipsychotics. Continue Prozac 40 mg daily, Depakene 500 mg twice daily and Seroquel 50 mg every 8 hours *Psychiatry has deemed patient incapable for signing AMA or to participate in discharge plan. He is recommending that he would invite the ethics committee to the hospital to have a discussion about patient care. *Consulted case management for ethics committee review, awaiting response. Multiple traumatic injuries Patient laceration, subdural hemorrhage, ventricular hemorrhage, nasal fracture, C6 fracture, C1-C2 subluxation, C4 transverse process fracture, right rib fracture, L1 transverse process fracture, right pubic rami fracture Continue c-collar this time, however patient does not wear Specialist no longer following patient, patient will require outpatient follow-up if discharge Right breast abscess, Improved. Physical exam shows improvement. Ultrasound does show complex loculated collection measuring 2.4 x 1.7 x 1.8 cm. Representing breast abscess Status post Augmentin 500 mg twice daily for 10 days (end date 10/25/17). Finished Bactrim DS for 18 days Gen. surgery consulted who recommends no intervention at this time. Soft tissue ultrasound shows a improvement of the fluid collection. Hypertension Blood pressures more controlled at this time. Will continue to monitor. Amlodipine 10 mg daily lisinopril 10 mg daily Status post fall, 10/23/[address] obtained and reviewed showing no acute fracture or bleed. Right knee x-ray showing no fracture. Orthostatic BPs unremarkable. Continue to monitor neuro status closely. No further fall incidences. No further dizziness. DVT prevention Patient ambulating Sequential compression devices while in bed Records were reviewed. Awaiting case management for discharge planning, No change in current treatment plan. Discharge Planning Due to underlying psychiatric/cognition patient is unsafe discharge until arrangements made by case management. Problem Qualifiers (1) Hypertension: Qualified Codes: I10 - Essential (primary) hypertension Alyssa Means Dec 01, 2017 12:34
--- NOTE | 2017-12-01 15:55 | RADRPT ---
EXAM DATE/TIME: 12/01/2017 15:10 [facility] COMPARISON: No previous studies available for comparison. INDICATIONS : Frequent falls. MEDICAL HISTORY : Hypertension. SURGICAL HISTORY : Unknown. ENCOUNTER: Subsequent ACUITY: 4-6 days PAIN SCORE: 0/10 LOCATION: spine. TECHNIQUE: Multiplanar multisequence MRI of the thoracic spine was performed. FINDINGS: VERTEBRA: Normal vertebral body height. Homogeneous marrow signal. ALIGNMENT: Normal. CORD: Normal position and configuration. T1-T2: Normal. T2-T3: The thecal sac has a normal diameter. No evidence of disc bulge or protrusion. T3-T4: The thecal sac has a normal diameter. No evidence of disc bulge or protrusion. T4-T5: The thecal sac has a normal diameter. No evidence of disc bulge or protrusion. T5-T6: The thecal sac has a normal diameter. No evidence of disc bulge or protrusion. T6-T7: The thecal sac has a normal diameter. No evidence of disc bulge or protrusion. T7-T8: The thecal sac has a normal diameter. No evidence of disc bulge or protrusion. T8-T9: The thecal sac has a normal diameter. No evidence of disc bulge or protrusion. T9-T10: The thecal sac has a normal diameter. No evidence of disc bulge or protrusion. T10-T11: The thecal sac has a normal diameter. No evidence of disc bulge or protrusion. T11-T12: The thecal sac has a normal diameter. No evidence of disc bulge or protrusion. T12-L1: The thecal sac has a normal diameter. No evidence of disc bulge or protrusion. CONCLUSION: Negative for acute process. Vimal Taylor MD FACR on December 01, 2017 at 15:52 Board Certified Radiologist. This report was verified electronically.
--- NOTE | 2017-12-01 16:10 | RADRPT ---
EXAM DATE/TIME: 12/01/2017 15:10 [facility] COMPARISON: No previous studies available for comparison. INDICATIONS : Frequent falls. MEDICAL HISTORY : Hypertension. SURGICAL HISTORY : Unknown. ENCOUNTER: Subsequent ACUITY: 4-6 days PAIN SCORE: 0/10 LOCATION: back. TECHNIQUE: Multiplanar multisequence MRI of the lumbar spine was performed without contrast. FINDINGS: The most caudal appearing lumbar vertebra is numbered as L5. VERTEBRAE: Homogeneous signal. Normal alignment. CONUS: Normal level and configuration. T12-L1: The thecal sac has a normal diameter. No evidence of disc bulge or protrusion. The neural foramina are patent bilaterally. L1-L2: The thecal sac has a normal diameter. No evidence of disc bulge or protrusion. The neural foramina are patent bilaterally. L2-L3: The thecal sac has a normal diameter. No evidence of disc bulge or protrusion. The neural foramina are patent bilaterally. L3-L4: The thecal sac has a normal diameter. No evidence of disc bulge or protrusion. The neural foramina are patent bilaterally. L4-L5: The thecal sac has a normal diameter. No evidence of disc bulge or protrusion. The neural foramina are patent bilaterally. L5-S1: The thecal sac has a normal diameter. No evidence of disc bulge or protrusion. The neural foramina are patent bilaterally. CONCLUSION: Negative MRI of the lumbar spine. Vimal Taylor MD FACR on December 01, 2017 at 15:55 Board Certified Radiologist. This report was verified electronically.
[2017-12-01 20:00] VITALS: BP_SYST 136; BP_SYST 147; BP_SYST 153; BP_DIAS 86; BP_DIAS 88; BP_DIAS 94; PULSE 71; RESP 16; TEMP 97.4; O2SAT 92
[2017-12-01] MEDS: amLODIPine BESYLATE 5 MG TAB PO SCH (20:53)
[2017-12-02 08:00] VITALS: BP_SYST 130; BP_SYST 148; BP_SYST 151; BP_DIAS 91; BP_DIAS 98; PULSE 65; RESP 14; TEMP 95.5; O2SAT 93
[2017-12-02] MEDS: VALPROIC ACID 250 MG CAP PO SCH ×2 (08:58→21:06)
[2017-12-02] MEDS: FLUoxetine HCL 20 MG CAP PO SCH (08:58)
[2017-12-02] MEDS: QUEtiapine FUMARATE 100 MG TAB PO SCH ×2 (08:58→21:06)
[2017-12-02] MEDS: CLOTRIMAZOLE 1% CREAM 15 GM TOPICAL SCH ×2 (13:06→21:05)
--- NOTE | 2017-12-02 13:18 | HHI.PR ---
Subjective Remarks Follow-up unsafe discharge due to cognition. Patient seen and examined, lying in bed comfortably. Sitter at bedside. It was reported today that she was standing at the window in her room and her knees buckled again, patient caught herself before falling. PT is working with her. MRI of the lumbar and thoracic spine is negative. Denies any other complaints. Otherwise stable. Objective Vitals Vital Signs Date Time Temp Pulse Resp B/P (MAP) Pulse Ox O2 Delivery O2 Flow Rate FiO2 12/02/17 08:00 95.5 65 14 148/98 (115) 93 130/98 (109) 151/91 (111) 12/01/17 20:00 97.4 71 16 147/88 (107) 92 153/86 (108) 136/94 (108) I/O 12/01/17 12/01/17 12/01/17 12/02/17 12/02/17 12/02/17 07:00 15:00 23:00 07:00 15:00 23:00 Intake Total 480 ml 480 ml 480 ml Balance 480 ml 480 ml 480 ml Intake Oral 480 ml 480 ml 480 ml # Voids 2 3 4 # Bowel Movements 1 0 Imaging Last Impressions Thoracic Spine MRI 12/01/17 0000 Signed Impressions: Service Date/Time: Friday, December 01, 2017 15:10 - CONCLUSION: Negative for acute process. Vimal Taylor MD FACR Lumbar Spine MRI 12/01/17 0000 Signed Impressions: Service Date/Time: Friday, December 01, 2017 15:10 - CONCLUSION: Negative MRI of the lumbar spine. Vimal Taylor MD FACR Carotid Artery Ultrasound 11/30/17 0000 Signed Impressions: Service Date/Time: Thursday, November 30, 2017 14:34 - CONCLUSION: 1. Mild plaque with no hemodynamically significant stenosis. Vertebral artery flow antegrade. Fadi Carolina MD Cervical Spine MRI 11/28/17 0000 Signed Impressions: Service Date/Time: Tuesday, November 28, 2017 15:10 - CONCLUSION: 1. Multilevel posterior disc osteophyte complexes as described above. 2. Anterior fusion C6- 7. Dylon Haddad MD Knee X-Ray 11/02/17 0000 Signed Impressions: Service Date/Time: Thursday, November 02, 2017 18:51 - CONCLUSION: Intact right knee. Jovany Hayes MD Head CT 11/02/17 0000 Signed Impressions: Service Date/Time: Thursday, November 02, 2017 18:35 - CONCLUSION: 1. No bleed or other acute intracranial abnormality. 2. Previously seen intracranial hemorrhage has resolved. A small area of chronic encephalomalacia has developed of the right frontal lobe. 3. Chronic periventricular white matter changes are again noted. Jovany Hayes MD Breast Ultrasound 10/15/17 0000 Signed Impressions: Service Date/Time: Sunday, October 15, 2017 09:06 - CONCLUSION: Persistent subcutaneous collection at the 12:00 position of the right breast. It has slightly decreased in size since the study dated 09/23/2017 and could represent an infectious process. Consider followup to confirm resolution. Jovany Quezada MD Chest X-Ray 09/03/17 0000 Signed Impressions: Service Date/Time: Sunday, September 03, 2017 17:02 - CONCLUSION: 1. Mild edema pattern. Subsegmental basilar airspace disease most characteristic of atelectasis.. Fadi Carolina MD Cervical Spine CT 09/02/17 0000 Signed Impressions: Service Date/Time: August 12:56 - CONCLUSION: Postsurgical changes from anterior cervical plate at C6-7. No evidence of compression deformity or spondylolisthesis. Arun Regan MD Pelvis X-Ray 06/30/17 0000 Signed Impressions: Service Date/Time: Friday, June 30, 2017 12:17 - CONCLUSION: No significant change has occurred. Carlos Capps MD Objective Remarks GENERAL: Well-nourished, well-developed female in NAD. SKIN: Warm and dry. No rash. Right breast abscess improved. HEENT: Normocephalic. Atraumatic. Pupils equal and round. No scleral icterus. No injection or drainage. No nasal bleeding or discharge. Mucous membranes pink and moist. NECK: Supple. Trachea midline. CARDIOVASCULAR: Regular rate and rhythm. S1, S2 noted. No murmur appreciated. RESPIRATORY: No accessory muscle use. Clear to auscultation. Breath sounds equal bilaterally. GASTROINTESTINAL: Abdomen soft, non-tender, nondistended. Normoactive bowel sounds x4. No guarding noted. MUSCULOSKELETAL: No obvious deformities. Extremities without clubbing, cyanosis , or edema. NEUROLOGICAL: Awake and alert. No obvious cranial nerve deficits. Motor grossly within normal limits. 5/5 muscle strength in bilateral upper and lower extremities. Normal speech. PSYCHIATRIC: Appropriate mood and affect. A/P Problem List: (1) Alcohol dependence in controlled environment ICD Code: F10.20 - Alcohol dependence, uncomplicated Status: Chronic (2) Facial injury ICD Code: S09.93XA - Unspecified injury of face, initial encounter Status: Acute (3) Fall ICD Code: W19.XXXA - Unspecified fall, initial encounter Status: Acute (4) Hypertension ICD Code: I10 - Essential (primary) hypertension Status: Acute (5) Pelvic fracture ICD Code: S32.9XXA - Fracture of unspecified parts of lumbosacral spine and pelvis, initial encounter for closed fracture Status: Acute (6) C1-C2 subluxation ICD Code: S13.120A - Subluxation of C1/C2 cervical vertebrae, initial encounter Status: Acute (7) C6 cervical fracture ICD Code: S12.500A - Unspecified displaced fracture of sixth cervical vertebra , initial encounter for closed fracture Status: Acute (8) Traumatic brain injury ICD Code: S06.9X9A - Unspecified intracranial injury with loss of consciousness of unspecified duration, initial encounter Status: Acute (9) Nasal fracture ICD Code: S02.2XXA - Fracture of nasal bones, initial encounter for closed fracture Status: Acute (10) Mild neurocognitive disorder ICD Code: G31.84 - Mild cognitive impairment, so stated Status: Acute (11) Intracranial bleed ICD Code: I62.9 - Nontraumatic intracranial hemorrhage, unspecified Status: Acute Assessment and Plan Recurrent falls Nursing staff indicates that patient gets weak in her knees when she is standing up, patient states that she does get lightheaded/dizzy when standing. Denies any current lightheadedness of dizziness. Patient denies any neurological symptoms of weakness, paresthesia, loss of bowel or bladder control Orthostatic vitals do show a slight drop in systolic blood pressure when standing. Improved after hydration. Status post 2 L normal saline and continue monitor orthostatic vitals. MRI of the neck. Multilevel degenerative changes. Mild degree of canal stenosis C5-C6, anterior fusion C6-C7 Check carotid ultrasound negative. Patient is still weak on her feet. MRI of the lumbar and thoracic spine negative. Vitamin B-12 and labs are all normal. Will add TSH. Will increase PT to daily for now to increase strengthening and lower extremities. Will order an echocardiogram to rule out any cardiac causes. Follow. Inability to care for self, unsafe discharge due to cognition Initially it was indicated patient cannot walk, patient is walking at this time, PT and OT recommending supervision at home for safety. Speech therapy following the patient intermittently for cognitive evaluations. MOCA score 20/30, she needs to have supervision Psychiatry indicates that secondary to her frontal lobe injury her cognition changes on a daily basis. Mini mental state 28/30, recommended avoid antipsychotics for benzodiazepine. Recommending Depakote or carbamazepine Patient is medically stable for discharge, however due to underlying psychiatric/cognition patient is unsafe discharge until arrangements made by case management Case management for discharge planning. Neuropsychiatry evaluated the patient recommended patient may improve with treatment, however indicates avoid benzodiazepines and antipsychotics. Continue Prozac 40 mg daily, Depakene 500 mg twice daily and Seroquel 50 mg every 8 hours *Psychiatry has deemed patient incapable for signing AMA or to participate in discharge plan. He is recommending that he would invite the ethics committee to the hospital to have a discussion about patient care. *Consulted case management for ethics committee review, awaiting response. Multiple traumatic injuries Patient laceration, subdural hemorrhage, ventricular hemorrhage, nasal fracture, C6 fracture, C1-C2 subluxation, C4 transverse process fracture, right rib fracture, L1 transverse process fracture, right pubic rami fracture Continue c-collar this time, however patient does not wear Specialist no longer following patient, patient will require outpatient follow-up if discharge Right breast abscess, Improved. Physical exam shows improvement. Ultrasound does show complex loculated collection measuring 2.4 x 1.7 x 1.8 cm. Representing breast abscess Status post Augmentin 500 mg twice daily for 10 days (end date 10/25/17). Finished Bactrim DS for 18 days Gen. surgery consulted who recommends no intervention at this time. Soft tissue ultrasound shows a improvement of the fluid collection. Hypertension Blood pressures more controlled at this time. Will continue to monitor. Amlodipine 10 mg daily lisinopril 10 mg daily Status post fall, 10/23/[address] obtained and reviewed showing no acute fracture or bleed. Right knee x-ray showing no fracture. Orthostatic BPs unremarkable. Continue to monitor neuro status closely. No further fall incidences. No further dizziness. DVT prevention Patient ambulating Sequential compression devices while in bed Records were reviewed. Awaiting case management for discharge planning, No change in current treatment plan. Discharge Planning Due to underlying psychiatric/cognition patient is unsafe discharge until arrangements made by case management. Problem Qualifiers (1) Hypertension: Qualified Codes: I10 - Essential (primary) hypertension Alyssa Means Dec 02, 2017 13:18
[2017-12-02 20:00] VITALS: BP 141/95; PULSE 72; RESP 17; TEMP 97; O2SAT 95
[2017-12-02] MEDS: amLODIPine BESYLATE 5 MG TAB PO SCH (21:06)
[2017-12-02 21:29] LABS: FREE T3 1.47 PG/ML (2.18-3.98); FREE T4 0.57 NG/DL (0.76-1.46)
[2017-12-03 08:00] VITALS: BP 183/100; PULSE 69; RESP 14; TEMP 96.7; O2SAT 94
[2017-12-03] MEDS: LEVOTHYROXINE SODIUM 25 MCG TAB PO SCH (09:00)
--- NOTE | 2017-12-03 09:26 | HHI.PR ---
Subjective Remarks Follow-up unsafe discharge due to cognition and recurrent falls. Patient seen and examined today, sitter and PT at bedside. No reports of any acute events overnight. Eating well and ambulating well. No recent fall. Vital signs stable. Objective Vitals Vital Signs Date Time Temp Pulse Resp B/P (MAP) Pulse Ox O2 Delivery O2 Flow Rate FiO2 12/02/17 20:00 97.0 72 17 141/95 (110) 95 I/O 12/02/17 12/02/17 12/02/17 12/03/17 12/03/17 12/03/17 07:00 15:00 23:00 07:00 15:00 23:00 Intake Total 480 ml Balance 480 ml Intake Oral 480 ml # Voids 4 5 1 # Bowel Movements 0 0 Imaging Last Impressions Thoracic Spine MRI 12/01/17 0000 Signed Impressions: Service Date/Time: Friday, December 01, 2017 15:10 - CONCLUSION: Negative for acute process. Vimal Taylor MD FACR Lumbar Spine MRI 12/01/17 0000 Signed Impressions: Service Date/Time: Friday, December 01, 2017 15:10 - CONCLUSION: Negative MRI of the lumbar spine. Vimal Taylor MD FACR Carotid Artery Ultrasound 11/30/17 0000 Signed Impressions: Service Date/Time: Thursday, November 30, 2017 14:34 - CONCLUSION: 1. Mild plaque with no hemodynamically significant stenosis. Vertebral artery flow antegrade. Fadi Carolina MD Cervical Spine MRI 11/28/17 0000 Signed Impressions: Service Date/Time: Tuesday, November 28, 2017 15:10 - CONCLUSION: 1. Multilevel posterior disc osteophyte complexes as described above. 2. Anterior fusion C6- 7. Dylon Haddad MD Knee X-Ray 11/02/17 0000 Signed Impressions: Service Date/Time: Thursday, November 02, 2017 18:51 - CONCLUSION: Intact right knee. Jovany Hayes MD Head CT 11/02/17 0000 Signed Impressions: Service Date/Time: Thursday, November 02, 2017 18:35 - CONCLUSION: 1. No bleed or other acute intracranial abnormality. 2. Previously seen intracranial hemorrhage has resolved. A small area of chronic encephalomalacia has developed of the right frontal lobe. 3. Chronic periventricular white matter changes are again noted. Jovany Hayes MD Breast Ultrasound 10/15/17 0000 Signed Impressions: Service Date/Time: Sunday, October 15, 2017 09:06 - CONCLUSION: Persistent subcutaneous collection at the 12:00 position of the right breast. It has slightly decreased in size since the study dated 09/23/2017 and could represent an infectious process. Consider followup to confirm resolution. Jovany Quezada MD Chest X-Ray 09/03/17 0000 Signed Impressions: Service Date/Time: Sunday, September 03, 2017 17:02 - CONCLUSION: 1. Mild edema pattern. Subsegmental basilar airspace disease most characteristic of atelectasis.. Fadi Carolina MD Cervical Spine CT 09/02/17 0000 Signed Impressions: Service Date/Time: August 12:56 - CONCLUSION: Postsurgical changes from anterior cervical plate at C6-7. No evidence of compression deformity or spondylolisthesis. Arun Regan MD Pelvis X-Ray 06/30/17 0000 Signed Impressions: Service Date/Time: Friday, June 30, 2017 12:17 - CONCLUSION: No significant change has occurred. Carlos Capps MD Objective Remarks GENERAL: Well-nourished, well-developed female in NAD. SKIN: Warm and dry. No rash. Right breast abscess improved. HEENT: Normocephalic. Atraumatic. Pupils equal and round. No scleral icterus. No injection or drainage. No nasal bleeding or discharge. Mucous membranes pink and moist. NECK: Supple. Trachea midline. CARDIOVASCULAR: Regular rate and rhythm. S1, S2 noted. No murmur appreciated. RESPIRATORY: No accessory muscle use. Clear to auscultation. Breath sounds equal bilaterally. GASTROINTESTINAL: Abdomen soft, non-tender, nondistended. Normoactive bowel sounds x4. No guarding noted. MUSCULOSKELETAL: No obvious deformities. Extremities without clubbing, cyanosis , or edema. NEUROLOGICAL: Awake and alert. No obvious cranial nerve deficits. Motor grossly within normal limits. 5/5 muscle strength in bilateral upper and lower extremities. Normal speech. PSYCHIATRIC: Appropriate mood and affect. A/P Problem List: (1) Alcohol dependence in controlled environment ICD Code: F10.20 - Alcohol dependence, uncomplicated Status: Chronic (2) Facial injury ICD Code: S09.93XA - Unspecified injury of face, initial encounter Status: Acute (3) Fall ICD Code: W19.XXXA - Unspecified fall, initial encounter Status: Acute (4) Hypertension ICD Code: I10 - Essential (primary) hypertension Status: Acute (5) Pelvic fracture ICD Code: S32.9XXA - Fracture of unspecified parts of lumbosacral spine and pelvis, initial encounter for closed fracture Status: Acute (6) C1-C2 subluxation ICD Code: S13.120A - Subluxation of C1/C2 cervical vertebrae, initial encounter Status: Acute (7) C6 cervical fracture ICD Code: S12.500A - Unspecified displaced fracture of sixth cervical vertebra , initial encounter for closed fracture Status: Acute (8) Traumatic brain injury ICD Code: S06.9X9A - Unspecified intracranial injury with loss of consciousness of unspecified duration, initial encounter Status: Acute (9) Nasal fracture ICD Code: S02.2XXA - Fracture of nasal bones, initial encounter for closed fracture Status: Acute (10) Mild neurocognitive disorder ICD Code: G31.84 - Mild cognitive impairment, so stated Status: Acute (11) Intracranial bleed ICD Code: I62.9 - Nontraumatic intracranial hemorrhage, unspecified Status: Acute Assessment and Plan Recurrent falls Nursing staff indicates that patient gets weak in her knees when she is standing up, patient states that she does get lightheaded/dizzy when standing. Denies any current lightheadedness of dizziness. Patient denies any neurological symptoms of weakness, paresthesia, loss of bowel or bladder control Orthostatic vitals do show a slight drop in systolic blood pressure when standing. Improved after hydration. Status post 2 L normal saline and continue monitor orthostatic vitals. MRI of the neck. Multilevel degenerative changes. Mild degree of canal stenosis C5-C6, anterior fusion C6-C7 Carotid ultrasound negative. Patient is still weak on her feet. MRI of the lumbar and thoracic spine negative. Vitamin B-12 and labs are all normal. TSH increased, patient states that she 's been on thyroid medicine since she couldn't remember. Restarted on levothyroxine. Recheck levels in 4-6 weeks. Will increase PT to daily for now to increase strengthening and lower extremities. Awaiting echo, follow. Inability to care for self, unsafe discharge due to cognition Initially it was indicated patient cannot walk, patient is walking at this time, PT and OT recommending supervision at home for safety. Speech therapy following the patient intermittently for cognitive evaluations. MOCA score 20/30, she needs to have supervision Psychiatry indicates that secondary to her frontal lobe injury her cognition changes on a daily basis. Mini mental state 28/30, recommended avoid antipsychotics for benzodiazepine. Recommending Depakote or carbamazepine Patient is medically stable for discharge, however due to underlying psychiatric/cognition patient is unsafe discharge until arrangements made by case management Case management for discharge planning. Neuropsychiatry evaluated the patient recommended patient may improve with treatment, however indicates avoid benzodiazepines and antipsychotics. Continue Prozac 40 mg daily, Depakene 500 mg twice daily and Seroquel 50 mg every 8 hours *Psychiatry has deemed patient incapable for signing AMA or to participate in discharge plan. He is recommending that he would invite the ethics committee to the hospital to have a discussion about patient care. *Consulted case management for ethics committee review, awaiting response. Multiple traumatic injuries Patient laceration, subdural hemorrhage, ventricular hemorrhage, nasal fracture, C6 fracture, C1-C2 subluxation, C4 transverse process fracture, right rib fracture, L1 transverse process fracture, right pubic rami fracture Continue c-collar this time, however patient does not wear Specialist no longer following patient, patient will require outpatient follow-up if discharge Right breast abscess, Improved. Physical exam shows improvement. Ultrasound does show complex loculated collection measuring 2.4 x 1.7 x 1.8 cm. Representing breast abscess Status post Augmentin 500 mg twice daily for 10 days (end date 10/25/17). Finished Bactrim DS for 18 days Gen. surgery consulted who recommends no intervention at this time. Soft tissue ultrasound shows a improvement of the fluid collection. Hypertension Blood pressures more controlled at this time. Will continue to monitor. Amlodipine 10 mg daily lisinopril 10 mg daily Status post fall, 10/23/[address] obtained and reviewed showing no acute fracture or bleed. Right knee x-ray showing no fracture. Orthostatic BPs unremarkable. Continue to monitor neuro status closely. No further fall incidences. No further dizziness. DVT prevention Patient ambulating Sequential compression devices while in bed Records were reviewed. Awaiting case management for discharge planning, No change in current treatment plan. Discharge Planning Due to underlying psychiatric/cognition patient is unsafe discharge until arrangements made by case management. Problem Qualifiers (1) Hypertension: Qualified Codes: I10 - Essential (primary) hypertension Alyssa Means Dec 03, 2017 09:26
[2017-12-03] MEDS: QUEtiapine FUMARATE 100 MG TAB PO SCH ×2 (09:41→21:24)
[2017-12-03] MEDS: VALPROIC ACID 250 MG CAP PO SCH ×2 (09:41→21:24)
[2017-12-03] MEDS: CLOTRIMAZOLE 1% CREAM 15 GM TOPICAL SCH ×2 (09:41→21:24)
[2017-12-03] MEDS: FLUoxetine HCL 20 MG CAP PO SCH (09:41)
[2017-12-03 15:38] VITALS: BP 140/91; PULSE 82
--- NOTE | 2017-12-03 19:10 | ECHRPT ---
Indication: weakness recurrent falls CONCLUSIONS The left ventricular systolic function is low normal with an estimated ejection fraction in the rang e of 50- 55%. Mild concentric left ventricular hypertrophy. Trace mitral valve regurgitation. There is mild tricuspid valve regurgitation. BP: / HR: Rhythm: MEASUREMENTS (Male / Female) Normal Values Technical Quality:Good 2D ECHO LV Diastolic Diameter PLAX 4.4 cm 4.2 - 5.9 / 3.9 - 5.3 cm LV Systolic Diameter PLAX 3.5 cm IVS Diastolic Thickness 1.3 cm 0.6 - 1.0 / 0.6 - 0.9 cm LVPW Diastolic Thickness 1.1 cm 0.6 - 1.0 / 0.6 - 0.9 cm LV Relative Wall Thickness 0.5 RV Internal Dim ED PLAX 3.1 cm M-MODE Aortic Root Diameter MM 3.2 cm LA Systolic Diameter MM 3.3 cm LA Ao Ratio MM 1.0 AV Cusp Separation MM 1.9 cm DOPPLER Mitral E Point Velocity 51.3 cm/s Mitral A Point Velocity 53.8 cm/s Mitral E to A Ratio 1.0 LV E' Lateral Velocity 8.5 cm/s Mitral E to LV E' Lateral Ratio 6.0 LV E' Septal Velocity 11.0 cm/s Mitral E to LV E' Septal Ratio 4.7 FINDINGS LEFT VENTRICLE Normal left ventricular size. The left ventricular systolic function is low normal with an estimated ejection fraction in the rang e of 50- 55%. Mild concentric left ventricular hypertrophy. There was limited left ventricular wall motion assessment due to poor endocardial visualization. RIGHT VENTRICLE Normal right ventricular size and systolic function. LEFT ATRIUM The left atrial size is mildly dilated. RIGHT ATRIUM The right atrial size is normal. ATRIAL SEPTUM Normal atrial septal thickness without atrial level shunting by limited color doppler interrogation. AORTA The aortic root and proximal ascending aorta are normal in size on limited imaging. MITRAL VALVE Structurally normal mitral valve. Trace mitral valve regurgitation. No mitral valve stenosis. AORTIC VALVE Trileaflet aortic valve. No aortic valve stenosis or regurgitation. TRICUSPID VALVE Structurally normal tricuspid valve. There is mild tricuspid valve regurgitation. No tricuspid valve stenosis. PULMONARY VALVE The pulmonary valve is not well visualized. VESSELS The inferior vena cava is normal in size. PERICARDIUM No pericardial effusion. Devin Hall DO (Electronically Signed) Final Date:03 December 2017 19:10
[2017-12-03 20:00] VITALS: BP 138/64; PULSE 76; RESP 18; TEMP 98; O2SAT 94
[2017-12-03] MEDS: amLODIPine BESYLATE 5 MG TAB PO SCH (21:24)
[2017-12-04] MEDS: LEVOTHYROXINE SODIUM 25 MCG TAB PO SCH (05:40)
[2017-12-04 07:50] VITALS: BP 130/76; PULSE 68; RESP 20; TEMP 97.1; O2SAT 94
[2017-12-04] MEDS: QUEtiapine FUMARATE 100 MG TAB PO SCH ×2 (08:48→21:23)
[2017-12-04] MEDS: VALPROIC ACID 250 MG CAP PO SCH ×2 (08:48→21:23)
[2017-12-04] MEDS: CLOTRIMAZOLE 1% CREAM 15 GM TOPICAL SCH ×2 (08:49→21:24)
[2017-12-04] MEDS: FLUoxetine HCL 20 MG CAP PO SCH (08:49)
--- NOTE | 2017-12-04 09:18 | HHI.PR ---
Subjective Remarks Follow-up unsafe discharge due to cognition and recurrent polyps. Patient seen and examined, lying in bed comfortably. Denies any acute events overnight no change in clinical condition. Objective Vitals Vital Signs Date Time Temp Pulse Resp B/P (MAP) Pulse Ox O2 Delivery O2 Flow Rate FiO2 12/04/17 07:50 97.1 68 20 130/76 (94) 94 12/03/17 20:00 98.0 76 18 138/64 (88) 94 12/03/17 15:38 82 140/91 (107) I/O 12/03/17 12/03/17 12/03/17 12/04/17 12/04/17 12/04/17 07:00 15:00 23:00 07:00 15:00 23:00 Intake Total 920 ml 0 ml Output Total 0 ml Balance 920 ml 0 ml Intake Oral 920 ml 0 ml Output Urine Total 0 ml Stool Total 0 ml # Voids 1 2 # Bowel Movements 0 Imaging Last Impressions Thoracic Spine MRI 12/01/17 0000 Signed Impressions: Service Date/Time: Friday, December 01, 2017 15:10 - CONCLUSION: Negative for acute process. Vimal Taylor MD FACR Lumbar Spine MRI 12/01/17 0000 Signed Impressions: Service Date/Time: Friday, December 01, 2017 15:10 - CONCLUSION: Negative MRI of the lumbar spine. Vimal Taylor MD FACR Carotid Artery Ultrasound 11/30/17 0000 Signed Impressions: Service Date/Time: Thursday, November 30, 2017 14:34 - CONCLUSION: 1. Mild plaque with no hemodynamically significant stenosis. Vertebral artery flow antegrade. Fadi Carolina MD Cervical Spine MRI 11/28/17 0000 Signed Impressions: Service Date/Time: Tuesday, November 28, 2017 15:10 - CONCLUSION: 1. Multilevel posterior disc osteophyte complexes as described above. 2. Anterior fusion C6- 7. Dylon Haddad MD Knee X-Ray 11/02/17 0000 Signed Impressions: Service Date/Time: Thursday, November 02, 2017 18:51 - CONCLUSION: Intact right knee. Jovany Hayes MD Head CT 11/02/17 0000 Signed Impressions: Service Date/Time: Thursday, November 02, 2017 18:35 - CONCLUSION: 1. No bleed or other acute intracranial abnormality. 2. Previously seen intracranial hemorrhage has resolved. A small area of chronic encephalomalacia has developed of the right frontal lobe. 3. Chronic periventricular white matter changes are again noted. Jovany Hayes MD Breast Ultrasound 10/15/17 0000 Signed Impressions: Service Date/Time: Sunday, October 15, 2017 09:06 - CONCLUSION: Persistent subcutaneous collection at the 12:00 position of the right breast. It has slightly decreased in size since the study dated 09/23/2017 and could represent an infectious process. Consider followup to confirm resolution. Jovany Quezada MD Chest X-Ray 09/03/17 0000 Signed Impressions: Service Date/Time: Sunday, September 03, 2017 17:02 - CONCLUSION: 1. Mild edema pattern. Subsegmental basilar airspace disease most characteristic of atelectasis.. Fadi Carolina MD Cervical Spine CT 09/02/17 0000 Signed Impressions: Service Date/Time: August 12:56 - CONCLUSION: Postsurgical changes from anterior cervical plate at C6-7. No evidence of compression deformity or spondylolisthesis. Arun Regan MD Pelvis X-Ray 06/30/17 0000 Signed Impressions: Service Date/Time: Friday, June 30, 2017 12:17 - CONCLUSION: No significant change has occurred. Carlos Capps MD Objective Remarks GENERAL: Well-nourished, well-developed female in [facility]. SKIN: Warm and dry. No rash. Right breast abscess improved. HEENT: Normocephalic. Atraumatic. Pupils equal and round. No scleral icterus. No injection or drainage. No nasal bleeding or discharge. Mucous membranes pink and moist. NECK: Supple. Trachea midline. CARDIOVASCULAR: Regular rate and rhythm. S1, S2 noted. No murmur appreciated. RESPIRATORY: No accessory muscle use. Clear to auscultation. Breath sounds equal bilaterally. GASTROINTESTINAL: Abdomen soft, non-tender, nondistended. Normoactive bowel sounds x4. No guarding noted. MUSCULOSKELETAL: No obvious deformities. Extremities without clubbing, cyanosis , or edema. NEUROLOGICAL: Awake and alert. No obvious cranial nerve deficits. Motor grossly within normal limits. 5/5 muscle strength in bilateral upper and lower extremities. Normal speech. PSYCHIATRIC: Appropriate mood and affect. A/P Problem List: (1) Alcohol dependence in controlled environment ICD Code: F10.20 - Alcohol dependence, uncomplicated Status: Chronic (2) Facial injury ICD Code: S09.93XA - Unspecified injury of face, initial encounter Status: Acute (3) Fall ICD Code: W19.XXXA - Unspecified fall, initial encounter Status: Acute (4) Hypertension ICD Code: I10 - Essential (primary) hypertension Status: Acute (5) Pelvic fracture ICD Code: S32.9XXA - Fracture of unspecified parts of lumbosacral spine and pelvis, initial encounter for closed fracture Status: Acute (6) C1-C2 subluxation ICD Code: S13.120A - Subluxation of C1/C2 cervical vertebrae, initial encounter Status: Acute (7) C6 cervical fracture ICD Code: S12.500A - Unspecified displaced fracture of sixth cervical vertebra , initial encounter for closed fracture Status: Acute (8) Traumatic brain injury ICD Code: S06.9X9A - Unspecified intracranial injury with loss of consciousness of unspecified duration, initial encounter Status: Acute (9) Nasal fracture ICD Code: S02.2XXA - Fracture of nasal bones, initial encounter for closed fracture Status: Acute (10) Mild neurocognitive disorder ICD Code: G31.84 - Mild cognitive impairment, so stated Status: Acute (11) Intracranial bleed ICD Code: I62.9 - Nontraumatic intracranial hemorrhage, unspecified Status: Acute Assessment and Plan Recurrent falls Nursing staff indicates that patient gets weak in her knees when she is standing up, patient states that she does get lightheaded/dizzy when standing. Denies any current lightheadedness of dizziness. Patient denies any neurological symptoms of weakness, paresthesia, loss of bowel or bladder control Orthostatic vitals do show a slight drop in systolic blood pressure when standing. Improved after hydration. Status post 2 L normal saline and continue monitor orthostatic vitals. MRI of the neck. Multilevel degenerative changes. Mild degree of canal stenosis C5-C6, anterior fusion C6-C7 Carotid ultrasound negative. Patient is still weak on her feet. MRI of the lumbar and thoracic spine negative. Vitamin B-12 and labs are all normal. TSH increased, patient states that she 's been on thyroid medicine since she couldn't remember. Restarted on levothyroxine. Recheck levels in 4-6 weeks. Will increase PT to daily for now to increase strengthening and lower extremities. Echocardiogram showing EF of 50-55%. Inability to care for self, unsafe discharge due to cognition Initially it was indicated patient cannot walk, patient is walking at this time, PT and OT recommending supervision at home for safety. Speech therapy following the patient intermittently for cognitive evaluations. MOCA score 20/30, she needs to have supervision Psychiatry indicates that secondary to her frontal lobe injury her cognition changes on a daily basis. Mini mental state 28/30, recommended avoid antipsychotics for benzodiazepine. Recommending Depakote or carbamazepine Patient is medically stable for discharge, however due to underlying psychiatric/cognition patient is unsafe discharge until arrangements made by case management Case management for discharge planning. Neuropsychiatry evaluated the patient recommended patient may improve with treatment, however indicates avoid benzodiazepines and antipsychotics. Continue Prozac 40 mg daily, Depakene 500 mg twice daily and Seroquel 50 mg every 8 hours *Psychiatry has deemed patient incapable for signing AMA or to participate in discharge plan. He is recommending that he would invite the ethics committee to the hospital to have a discussion about patient care. *Consulted case management for ethics committee review, awaiting response. Multiple traumatic injuries Patient laceration, subdural hemorrhage, ventricular hemorrhage, nasal fracture, C6 fracture, C1-C2 subluxation, C4 transverse process fracture, right rib fracture, L1 transverse process fracture, right pubic rami fracture Continue c-collar this time, however patient does not wear Specialist no longer following patient, patient will require outpatient follow-up if discharge Right breast abscess, Improved. Physical exam shows improvement. Ultrasound does show complex loculated collection measuring 2.4 x 1.7 x 1.8 cm. Representing breast abscess Status post Augmentin 500 mg twice daily for 10 days (end date 10/25/17). Finished Bactrim DS for 18 days Gen. surgery consulted who recommends no intervention at this time. Soft tissue ultrasound shows a improvement of the fluid collection. Hypertension Blood pressures more controlled at this time. Will continue to monitor. Amlodipine 10 mg daily lisinopril 10 mg daily Status post fall, 10/23/[address] obtained and reviewed showing no acute fracture or bleed. Right knee x-ray showing no fracture. Orthostatic BPs unremarkable. Continue to monitor neuro status closely. No further fall incidences. No further dizziness. DVT prevention Patient ambulating Sequential compression devices while in bed Records were reviewed. Awaiting case management for discharge planning, No change in current treatment plan. Discharge Planning Due to underlying psychiatric/cognition patient is unsafe discharge until arrangements made by case management. Problem Qualifiers (1) Hypertension: Qualified Codes: I10 - Essential (primary) hypertension Alyssa Means Dec 04, 2017 09:18
[2017-12-04] MEDS: amLODIPine BESYLATE 5 MG TAB PO SCH (21:23)
[2017-12-04 21:25] VITALS: BP 186/94; PULSE 68; RESP 16; TEMP 98.1; O2SAT 96
[2017-12-05] MEDS: LEVOTHYROXINE SODIUM 25 MCG TAB PO SCH (05:28)
[2017-12-05 07:50] VITALS: BP 160/96; PULSE 55; RESP 20; TEMP 96.6; O2SAT 94
[2017-12-05] MEDS: QUEtiapine FUMARATE 100 MG TAB PO SCH ×2 (09:09→20:30)
[2017-12-05] MEDS: VALPROIC ACID 250 MG CAP PO SCH ×2 (09:10→20:30)
[2017-12-05] MEDS: CLOTRIMAZOLE 1% CREAM 15 GM TOPICAL SCH ×2 (09:10→20:30)
[2017-12-05] MEDS: FLUoxetine HCL 20 MG CAP PO SCH (09:10)
[2017-12-05] MEDS: ACETAMINOPHEN 325 MG TAB PO PRN ×2 (09:16→20:31)
--- NOTE | 2017-12-05 09:18 | HHI.PR ---
Subjective Remarks Follow-up unsafe discharge due to cognition and recurrent falls. Patient seen and examined, lying in bed comfortably. Sitter at bedside. Patient denies any acute changes overnight. Pain is well controlled. No clinical change. Objective Vitals Vital Signs Date Time Temp Pulse Resp B/P (MAP) Pulse Ox O2 Delivery O2 Flow Rate FiO2 12/04/17 21:25 98.1 68 16 186/94 (124) 96 I/O 12/04/17 12/04/17 12/04/17 12/05/17 12/05/17 12/05/17 07:00 15:00 23:00 07:00 15:00 23:00 Intake Total 0 ml 421 ml Output Total 0 ml Balance 0 ml 421 ml Intake Oral 0 ml 421 ml Output Urine Total 0 ml Stool Total 0 ml # Voids 3 3 # Bowel Movements 0 1 Imaging Last Impressions Thoracic Spine MRI 12/01/17 0000 Signed Impressions: Service Date/Time: Friday, December 01, 2017 15:10 - CONCLUSION: Negative for acute process. Vimal Taylor MD FACR Lumbar Spine MRI 12/01/17 0000 Signed Impressions: Service Date/Time: Friday, December 01, 2017 15:10 - CONCLUSION: Negative MRI of the lumbar spine. Vimal Taylor MD FACR Carotid Artery Ultrasound 11/30/17 0000 Signed Impressions: Service Date/Time: Thursday, November 30, 2017 14:34 - CONCLUSION: 1. Mild plaque with no hemodynamically significant stenosis. Vertebral artery flow antegrade. Fadi Carolina MD Cervical Spine MRI 11/28/17 0000 Signed Impressions: Service Date/Time: Tuesday, November 28, 2017 15:10 - CONCLUSION: 1. Multilevel posterior disc osteophyte complexes as described above. 2. Anterior fusion C6- 7. Dylon Haddad MD Knee X-Ray 11/02/17 0000 Signed Impressions: Service Date/Time: Thursday, November 02, 2017 18:51 - CONCLUSION: Intact right knee. Jovany Hayes MD Head CT 11/02/17 0000 Signed Impressions: Service Date/Time: Thursday, November 02, 2017 18:35 - CONCLUSION: 1. No bleed or other acute intracranial abnormality. 2. Previously seen intracranial hemorrhage has resolved. A small area of chronic encephalomalacia has developed of the right frontal lobe. 3. Chronic periventricular white matter changes are again noted. Jovany Hayes MD Breast Ultrasound 10/15/17 0000 Signed Impressions: Service Date/Time: Sunday, October 15, 2017 09:06 - CONCLUSION: Persistent subcutaneous collection at the 12:00 position of the right breast. It has slightly decreased in size since the study dated 09/23/2017 and could represent an infectious process. Consider followup to confirm resolution. Jovany Quezada MD Chest X-Ray 09/03/17 0000 Signed Impressions: Service Date/Time: Sunday, September 03, 2017 17:02 - CONCLUSION: 1. Mild edema pattern. Subsegmental basilar airspace disease most characteristic of atelectasis.. Fadi Carolina MD Cervical Spine CT 09/02/17 0000 Signed Impressions: Service Date/Time: August 12:56 - CONCLUSION: Postsurgical changes from anterior cervical plate at C6-7. No evidence of compression deformity or spondylolisthesis. Arun Regan MD Pelvis X-Ray 06/30/17 0000 Signed Impressions: Service Date/Time: Friday, June 30, 2017 12:17 - CONCLUSION: No significant change has occurred. Carlos Capps MD Objective Remarks GENERAL: Well-nourished, well-developed female in [place]. SKIN: Warm and dry. No rash. Right breast abscess improved. HEENT: Normocephalic. Atraumatic. Pupils equal and round. No scleral icterus. No injection or drainage. No nasal bleeding or discharge. Mucous membranes pink and moist. NECK: Supple. Trachea midline. CARDIOVASCULAR: Regular rate and rhythm. S1, S2 noted. No murmur appreciated. RESPIRATORY: No accessory muscle use. Clear to auscultation. Breath sounds equal bilaterally. GASTROINTESTINAL: Abdomen soft, non-tender, nondistended. Normoactive bowel sounds x4. No guarding noted. MUSCULOSKELETAL: No obvious deformities. Extremities without clubbing, cyanosis , or edema. NEUROLOGICAL: Awake and alert. No obvious cranial nerve deficits. Motor grossly within normal limits. 5/5 muscle strength in bilateral upper and lower extremities. Normal speech. PSYCHIATRIC: Appropriate mood and affect. A/P Problem List: (1) Alcohol dependence in controlled environment ICD Code: F10.20 - Alcohol dependence, uncomplicated Status: Chronic (2) Facial injury ICD Code: S09.93XA - Unspecified injury of face, initial encounter Status: Acute (3) Fall ICD Code: W19.XXXA - Unspecified fall, initial encounter Status: Acute (4) Hypertension ICD Code: I10 - Essential (primary) hypertension Status: Acute (5) Pelvic fracture ICD Code: S32.9XXA - Fracture of unspecified parts of lumbosacral spine and pelvis, initial encounter for closed fracture Status: Acute (6) C1-C2 subluxation ICD Code: S13.120A - Subluxation of C1/C2 cervical vertebrae, initial encounter Status: Acute (7) C6 cervical fracture ICD Code: S12.500A - Unspecified displaced fracture of sixth cervical vertebra , initial encounter for closed fracture Status: Acute (8) Traumatic brain injury ICD Code: S06.9X9A - Unspecified intracranial injury with loss of consciousness of unspecified duration, initial encounter Status: Acute (9) Nasal fracture ICD Code: S02.2XXA - Fracture of nasal bones, initial encounter for closed fracture Status: Acute (10) Mild neurocognitive disorder ICD Code: G31.84 - Mild cognitive impairment, so stated Status: Acute (11) Intracranial bleed ICD Code: I62.9 - Nontraumatic intracranial hemorrhage, unspecified Status: Acute Assessment and Plan Recurrent falls Nursing staff indicates that patient gets weak in her knees when she is standing up, patient states that she does get lightheaded/dizzy when standing. Denies any current lightheadedness of dizziness. Patient denies any neurological symptoms of weakness, paresthesia, loss of bowel or bladder control Orthostatic vitals do show a slight drop in systolic blood pressure when standing. Improved after hydration. Status post 2 L normal saline and continue monitor orthostatic vitals. MRI of the neck. Multilevel degenerative changes. Mild degree of canal stenosis C5-C6, anterior fusion C6-C7 Carotid ultrasound negative. Patient is still weak on her feet. MRI of the lumbar and thoracic spine negative. Vitamin B-12 and labs are all normal. TSH increased, patient states that she 's been on thyroid medicine since she couldn't remember. Restarted on levothyroxine. Recheck levels in 4-6 weeks. Will increase PT to daily for now to increase strengthening and lower extremities. Echocardiogram showing EF of 50-55%. Inability to care for self, unsafe discharge due to cognition Initially it was indicated patient cannot walk, patient is walking at this time, PT and OT recommending supervision at home for safety. Speech therapy following the patient intermittently for cognitive evaluations. MOCA score 20/30, she needs to have supervision Psychiatry indicates that secondary to her frontal lobe injury her cognition changes on a daily basis. Mini mental state 28/30, recommended avoid antipsychotics for benzodiazepine. Recommending Depakote or carbamazepine Patient is medically stable for discharge, however due to underlying psychiatric/cognition patient is unsafe discharge until arrangements made by case management Case management for discharge planning. Neuropsychiatry evaluated the patient recommended patient may improve with treatment, however indicates avoid benzodiazepines and antipsychotics. Continue Prozac 40 mg daily, Depakene 500 mg twice daily and Seroquel 50 mg every 8 hours *Psychiatry has deemed patient incapable for signing AMA or to participate in discharge plan. He is recommending that he would invite the ethics committee to the hospital to have a discussion about patient care. *Consulted case management for ethics committee review, awaiting response. Multiple traumatic injuries Patient laceration, subdural hemorrhage, ventricular hemorrhage, nasal fracture, C6 fracture, C1-C2 subluxation, C4 transverse process fracture, right rib fracture, L1 transverse process fracture, right pubic rami fracture Continue c-collar this time, however patient does not wear Specialist no longer following patient, patient will require outpatient follow-up if discharge Right breast abscess, Improved. Physical exam shows improvement. Ultrasound does show complex loculated collection measuring 2.4 x 1.7 x 1.8 cm. Representing breast abscess Status post Augmentin 500 mg twice daily for 10 days (end date 10/25/17). Finished Bactrim DS for 18 days Gen. surgery consulted who recommends no intervention at this time. Soft tissue ultrasound shows a improvement of the fluid collection. Hypertension Blood pressures more controlled at this time. Will continue to monitor. Amlodipine 10 mg daily lisinopril 10 mg daily Status post fall, 10/23/[address] obtained and reviewed showing no acute fracture or bleed. Right knee x-ray showing no fracture. Orthostatic BPs unremarkable. Continue to monitor neuro status closely. No further fall incidences. No further dizziness. DVT prevention Patient ambulating Sequential compression devices while in bed Records were reviewed. Awaiting case management for discharge planning, No change in current treatment plan. Discharge Planning Due to underlying psychiatric/cognition patient is unsafe discharge until arrangements made by case management. Problem Qualifiers (1) Hypertension: Qualified Codes: I10 - Essential (primary) hypertension Alyssa Means Dec 05, 2017 09:18
[2017-12-05] MEDS ORDERED: ENALAPRILAT 1.25 MG/ML VIAL IV PUSH PRN (10:15)
[2017-12-05 12:51] VITALS: BP 92/68
[2017-12-05] MEDS: amLODIPine BESYLATE 5 MG TAB PO SCH (20:30)
[2017-12-05 21:03] VITALS: BP 124/79; PULSE 65; RESP 18; TEMP 97.9; O2SAT 97
[2017-12-06] MEDS: LEVOTHYROXINE SODIUM 25 MCG TAB PO SCH (05:19)
[2017-12-06 08:00] VITALS: PULSE 65; RESP 18; TEMP 97.8; O2SAT 96
[2017-12-06 09:42] VITALS: BP 134/84; PULSE 68
[2017-12-06] MEDS: VALPROIC ACID 250 MG CAP PO SCH ×2 (09:44→22:01)
[2017-12-06] MEDS: QUEtiapine FUMARATE 100 MG TAB PO SCH ×2 (09:44→22:01)
[2017-12-06] MEDS: FLUoxetine HCL 20 MG CAP PO SCH (09:44)
[2017-12-06] MEDS: CLOTRIMAZOLE 1% CREAM 15 GM TOPICAL SCH ×2 (09:44→22:01)
--- NOTE | 2017-12-06 10:08 | HHI.PR ---
Subjective Remarks Follow-up unsafe discharge due to cognition and recurrent falls. Patient examined, up out of bed with walker and sitter. Patient denies any acute events overnight. Slept well. Eating well. PT in to work with patient today. Continue to increase strength in lower extremities. Vital signs are stable. No change in clinical condition. Objective Vitals Vital Signs Date Time Temp Pulse Resp B/P (MAP) Pulse Ox O2 Delivery O2 Flow Rate FiO2 12/06/17 09:42 68 134/84 (101) 12/06/17 08:00 97.8 65 18 96 12/05/17 21:03 97.9 65 18 124/79 (94) 97 12/05/17 12:51 92/68 (76) I/O 12/05/17 12/05/17 12/05/17 12/06/17 12/06/17 12/06/17 07:00 15:00 23:00 07:00 15:00 23:00 Intake Total 341 ml Balance 341 ml Intake Oral 341 ml # Voids 3 1 2 # Bowel Movements 1 1 Imaging Last Impressions Thoracic Spine MRI 12/01/17 0000 Signed Impressions: Service Date/Time: Friday, December 01, 2017 15:10 - CONCLUSION: Negative for acute process. Vimal Taylor MD FACR Lumbar Spine MRI 12/01/17 0000 Signed Impressions: Service Date/Time: Friday, December 01, 2017 15:10 - CONCLUSION: Negative MRI of the lumbar spine. Vimal Taylor MD FACR Carotid Artery Ultrasound 11/30/17 0000 Signed Impressions: Service Date/Time: Thursday, November 30, 2017 14:34 - CONCLUSION: 1. Mild plaque with no hemodynamically significant stenosis. Vertebral artery flow antegrade. Fadi Carolina MD Cervical Spine MRI 11/28/17 0000 Signed Impressions: Service Date/Time: Tuesday, November 28, 2017 15:10 - CONCLUSION: 1. Multilevel posterior disc osteophyte complexes as described above. 2. Anterior fusion C6- 7. Dylon Haddad MD Knee X-Ray 11/02/17 0000 Signed Impressions: Service Date/Time: Thursday, November 02, 2017 18:51 - CONCLUSION: Intact right knee. Jovany Hayes MD Head CT 11/02/17 0000 Signed Impressions: Service Date/Time: Thursday, November 02, 2017 18:35 - CONCLUSION: 1. No bleed or other acute intracranial abnormality. 2. Previously seen intracranial hemorrhage has resolved. A small area of chronic encephalomalacia has developed of the right frontal lobe. 3. Chronic periventricular white matter changes are again noted. Jovany Hayes MD Breast Ultrasound 10/15/17 0000 Signed Impressions: Service Date/Time: Sunday, October 15, 2017 09:06 - CONCLUSION: Persistent subcutaneous collection at the 12:00 position of the right breast. It has slightly decreased in size since the study dated 09/23/2017 and could represent an infectious process. Consider followup to confirm resolution. Jovany Quezada MD Chest X-Ray 09/03/17 0000 Signed Impressions: Service Date/Time: Sunday, September 03, 2017 17:02 - CONCLUSION: 1. Mild edema pattern. Subsegmental basilar airspace disease most characteristic of atelectasis.. Fadi Carolina MD Cervical Spine CT 09/02/17 0000 Signed Impressions: Service Date/Time: August 12:56 - CONCLUSION: Postsurgical changes from anterior cervical plate at C6-7. No evidence of compression deformity or spondylolisthesis. Arun Regan MD Pelvis X-Ray 06/30/17 0000 Signed Impressions: Service Date/Time: Friday, June 30, 2017 12:17 - CONCLUSION: No significant change has occurred. Carlos Capps MD Objective Remarks GENERAL: Well-nourished, well-developed female in [facility]. SKIN: Warm and dry. No rash. Right breast abscess improved. HEENT: Normocephalic. Atraumatic. Pupils equal and round. No scleral icterus. No injection or drainage. No nasal bleeding or discharge. Mucous membranes pink and moist. NECK: Supple. Trachea midline. CARDIOVASCULAR: Regular rate and rhythm. S1, S2 noted. No murmur appreciated. RESPIRATORY: No accessory muscle use. Clear to auscultation. Breath sounds equal bilaterally. GASTROINTESTINAL: Abdomen soft, non-tender, nondistended. Normoactive bowel sounds x4. No guarding noted. MUSCULOSKELETAL: No obvious deformities. Extremities without clubbing, cyanosis , or edema. NEUROLOGICAL: Awake and alert. No obvious cranial nerve deficits. Motor grossly within normal limits. 5/5 muscle strength in bilateral upper and lower extremities. Normal speech. PSYCHIATRIC: Appropriate mood and affect. A/P Problem List: (1) Alcohol dependence in controlled environment ICD Code: F10.20 - Alcohol dependence, uncomplicated Status: Chronic (2) Facial injury ICD Code: S09.93XA - Unspecified injury of face, initial encounter Status: Acute (3) Fall ICD Code: W19.XXXA - Unspecified fall, initial encounter Status: Acute (4) Hypertension ICD Code: I10 - Essential (primary) hypertension Status: Acute (5) Pelvic fracture ICD Code: S32.9XXA - Fracture of unspecified parts of lumbosacral spine and pelvis, initial encounter for closed fracture Status: Acute (6) C1-C2 subluxation ICD Code: S13.120A - Subluxation of C1/C2 cervical vertebrae, initial encounter Status: Acute (7) C6 cervical fracture ICD Code: S12.500A - Unspecified displaced fracture of sixth cervical vertebra , initial encounter for closed fracture Status: Acute (8) Traumatic brain injury ICD Code: S06.9X9A - Unspecified intracranial injury with loss of consciousness of unspecified duration, initial encounter Status: Acute (9) Nasal fracture ICD Code: S02.2XXA - Fracture of nasal bones, initial encounter for closed fracture Status: Acute (10) Mild neurocognitive disorder ICD Code: G31.84 - Mild cognitive impairment, so stated Status: Acute (11) Intracranial bleed ICD Code: I62.9 - Nontraumatic intracranial hemorrhage, unspecified Status: Acute Assessment and Plan Recurrent falls Nursing staff indicates that patient gets weak in her knees when she is standing up, patient states that she does get lightheaded/dizzy when standing. Denies any current lightheadedness of dizziness. Patient denies any neurological symptoms of weakness, paresthesia, loss of bowel or bladder control. Orthostatic vitals do show a slight drop in systolic blood pressure when standing. Improved after hydration. Status post 2 L normal saline and continue monitor orthostatic vitals. MRI of the neck. Multilevel degenerative changes. Mild degree of canal stenosis C5-C6, anterior fusion C6-C7. Carotid ultrasound negative. MRI of the lumbar and thoracic spine negative. Vitamin B-12 and labs are all normal. TSH increased. Restarted on levothyroxine. Recheck levels in 4-6 weeks. Will increase PT to daily for now to increase strengthening and lower extremities. Echocardiogram showing EF of 50-55%. No further falls at this time. Inability to care for self, unsafe discharge due to cognition Initially it was indicated patient cannot walk, patient is walking at this time, PT and OT recommending supervision at home for safety. Speech therapy following the patient intermittently for cognitive evaluations. MOCA score 20/30, she needs to have supervision Psychiatry indicates that secondary to her frontal lobe injury her cognition changes on a daily basis. Mini mental state 28/30, recommended avoid antipsychotics for benzodiazepine. Recommending Depakote or carbamazepine Patient is medically stable for discharge, however due to underlying psychiatric/cognition patient is unsafe discharge until arrangements made by case management Case management for discharge planning. Neuropsychiatry evaluated the patient recommended patient may improve with treatment, however indicates avoid benzodiazepines and antipsychotics. Continue Prozac 40 mg daily, Depakene 500 mg twice daily and Seroquel 50 mg every 8 hours *Psychiatry has deemed patient incapable for signing AMA or to participate in discharge plan. He is recommending that he would invite the ethics committee to the hospital to have a discussion about patient care. *Consulted case management for ethics committee review, awaiting response. Multiple traumatic injuries Patient laceration, subdural hemorrhage, ventricular hemorrhage, nasal fracture, C6 fracture, C1-C2 subluxation, C4 transverse process fracture, right rib fracture, L1 transverse process fracture, right pubic rami fracture Continue c-collar this time, however patient does not wear Specialist no longer following patient, patient will require outpatient follow-up if discharge Right breast abscess, Improved. Physical exam shows improvement. Ultrasound does show complex loculated collection measuring 2.4 x 1.7 x 1.8 cm. Representing breast abscess Status post Augmentin 500 mg twice daily for 10 days (end date 10/25/17). Finished Bactrim DS for 18 days Gen. surgery consulted who recommends no intervention at this time. Soft tissue ultrasound shows a improvement of the fluid collection. Hypertension Blood pressures more controlled at this time. Will continue to monitor. Amlodipine 10 mg daily lisinopril 10 mg daily Status post fall, 10/23/[address] obtained and reviewed showing no acute fracture or bleed. Right knee x-ray showing no fracture. Orthostatic BPs unremarkable. Continue to monitor neuro status closely. No further fall incidences. No further dizziness. DVT prevention Patient ambulating Sequential compression devices while in bed Records were reviewed. Awaiting case management for discharge planning, No change in current treatment plan. Discharge Planning Due to underlying psychiatric/cognition patient is unsafe discharge until arrangements made by case management. Problem Qualifiers (1) Hypertension: Qualified Codes: I10 - Essential (primary) hypertension Alyssa Means Dec 06, 2017 10:08
[2017-12-06 21:09] VITALS: BP 156/96; PULSE 64; RESP 20; O2SAT 96
[2017-12-06] MEDS: amLODIPine BESYLATE 5 MG TAB PO SCH (22:01)
[2017-12-07] MEDS: LEVOTHYROXINE SODIUM 25 MCG TAB PO SCH (05:52)
[2017-12-07 08:00] VITALS: BP 139/83; PULSE 58; RESP 16; TEMP 98.6; O2SAT 92
[2017-12-07] MEDS: CLOTRIMAZOLE 1% CREAM 15 GM TOPICAL SCH (09:00)
[2017-12-07] MEDS: FLUoxetine HCL 20 MG CAP PO SCH (09:35)
[2017-12-07] MEDS: VALPROIC ACID 250 MG CAP PO SCH ×2 (09:35→20:40)
[2017-12-07] MEDS: QUEtiapine FUMARATE 100 MG TAB PO SCH ×2 (09:37→20:40)
--- NOTE | 2017-12-07 11:13 | HHI.PR ---
Subjective Remarks Patient seen and examined today for follow-up on unsafe discharge due to cognition, recurrent falls. Patient denies any new complaints today. There is been no indication of any recent falls. Awaiting case management for discharge planning Objective Vitals Vital Signs Date Time Temp Pulse Resp B/P (MAP) Pulse Ox O2 Delivery O2 Flow Rate FiO2 12/07/17 08:00 98.6 58 16 139/83 (101) 92 12/06/17 21:09 64 20 156/96 (116) 96 I/O 12/06/17 12/06/17 12/06/17 12/07/17 12/07/17 12/07/17 07:00 15:00 23:00 07:00 15:00 23:00 Intake Total 222 ml 400 ml Balance 222 ml 400 ml Intake Oral 222 ml 400 ml # Voids 2 2 # Bowel Movements 1 0 Objective Remarks GENERAL: Well-developed, well-nourished, in no acute distress. alert and orientated waxes and wanes daily HEENT: Head is normocephalic without any lesions or masses noted. Facial features are symmetric. Eyes: Extraocular muscles are intact. Conjunctivae were clear. NECK: C-collar in on table at bedside CARDIAC: Regular rhythm, regular rate. S1/S2 are heard. No murmurs gallops or rubs. LUNGS: Clear to auscultation bilaterally. No wheeze, rhonchi or rales. No use of accessory muscles on inspiration or expiration. ABDOMEN: Soft, nontender. Nondistended. Bowel sounds heard in all 4 quadrants. No organomegaly or masses. Negative rebound, negative guarding EXTREMITIES: No edema, pulses are equal bilaterally. No cyanosis or clubbing NEUROLOGY: Mood and affect appear appropriate. Cranial nerves II through XII grossly intact moving all extremities, speech is clear Urinary Catheter: No Vascular Central Line Catheter: No A/P Assessment and Plan Recurrent falls, improved Nursing staff indicates that patient gets weak in her knees when she is standing up, patient states that she does get lightheaded/dizzy when standing Patient does state that she is having neck pain Patient denies any neurological symptoms of weakness, paresthesia, loss of bowel or bladder control Orthostatic vitals do show drop in systolic blood pressure when standing. Improved after hydration Status post 2 L normal saline and continue monitor orthostatic vitals MRI of the neck. Multilevel degenerative changes. Mild degree of canal stenosis C5-C6, anterior fusion C6-C7 MRI of thoracic and lumbar spine do not indicate any acute abnormality Carotid ultrasound was unremarkable Echocardiogram indicate ejection fraction 50-55% without any abnormalities Physical therapy ordered for daily Inability to care for self, unsafe discharge due to cognition Initially he was indicated patient cannot walk, patient is walking at this time, PT and OT recommending supervision at home for safety Speech therapy following the patient intermittently for cognitive evaluations. 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 MIni mental state 28/30, recommended avoid antipsychotics and benzodiazepine. Recommending Depakote or carbamazepine Patient is medically stable for discharge, however due to underlying psychiatric/cognition patient is unsafe discharge until arrangements made by case management Case management for discharge planning Neuropsychiatry evaluated the patient recommended patient may improve with treatment, however indicates avoid benzodiazepines and antipsychotics Continue Prozac 40 mg daily Depakene 500 mg twice daily Seroquel 100 mg twice daily *Discussed with psychiatry again about patient's cognition issues. He indicated that the patient lacks capacity for signing AMA or to participate in discharge plan. He is recommending that he would invite the ethics committee to the hospital to have a discussion about patient care *Consulted case management for ethics committee review, awaiting response Multiple traumatic injuries, Patient laceration, subdural hemorrhage, ventricular hemorrhage, nasal fracture, C6 fracture, C1-C2 subluxation, C4 transverse process fracture, right rib fracture, L1 transverse process fracture, right pubic rami fracture Continue c-collar this time, however patient does not wear Follow-up cervical spine CT 1026/17 indicates no evidence of acute fracture. Postsurgical changes Specialist no longer following patient, patient will require outpatient follow-up if discharge Right breast abscess, improved Physical exam patient does have a erythematous area with drainage Ultrasound does show complex loculated collection measuring 2.4 x 1.7 x 1.8 cm. Representing breast abscess Status post Augmentin 500 mg twice daily for 10 days., Bactrim DS for 18 days Gen. surgery consulted who recommends no intervention at this time, Soft tissue ultrasound shows a improvement of the fluid collection. Hypothyroidism TSH 5.11 Free T4 0.57, free T3 1 0.47 Levothyroxine 25 g daily Monitor TSH every 6-8 weeks Hypertension, Amlodipine 5 mg daily DVT prevention Patient ambulating Sequential compression devices while in bed Discharge Planning Case management for discharge planning, Conrado Mariee Dec 07, 2017 11:13
[2017-12-07 20:00] VITALS: BP 148/90; PULSE 76; RESP 18; TEMP 96.4; O2SAT 94
[2017-12-07] MEDS: amLODIPine BESYLATE 5 MG TAB PO SCH (20:41)
[2017-12-08] MEDS: LEVOTHYROXINE SODIUM 25 MCG TAB PO SCH (06:15)
[2017-12-08 08:00] VITALS: BP 172/95; PULSE 58; RESP 14; TEMP 96.6; O2SAT 95
[2017-12-08] MEDS: QUEtiapine FUMARATE 100 MG TAB PO SCH ×2 (09:10→22:02)
[2017-12-08] MEDS: FLUoxetine HCL 20 MG CAP PO SCH (09:10)
[2017-12-08] MEDS: VALPROIC ACID 250 MG CAP PO SCH ×2 (09:10→22:02)
--- NOTE | 2017-12-08 09:32 | HHI.PR ---
Subjective Remarks Patient seen and examined today for follow-up on unsafe discharge due to cognition. Patient denies any new complaints. No recurrent fall. Vital signs are stable, afebrile Objective Vitals Vital Signs Date Time Temp Pulse Resp B/P (MAP) Pulse Ox O2 Delivery O2 Flow Rate FiO2 12/07/17 20:00 96.4 76 18 148/90 (109) 94 I/O 12/07/17 12/07/17 12/07/17 12/08/17 12/08/17 12/08/17 07:00 15:00 23:00 07:00 15:00 23:00 Intake Total 400 ml 222 ml 440 ml Balance 400 ml 222 ml 440 ml Intake Oral 400 ml 222 ml 440 ml # Voids 2 5 2 # Bowel Movements 0 0 0 Objective Remarks GENERAL: Well-developed, well-nourished, in no acute distress. alert and orientated waxes and wanes daily HEENT: Head is normocephalic without any lesions or masses noted. Facial features are symmetric. Eyes: Extraocular muscles are intact. Conjunctivae were clear. NECK: C-collar in on table at bedside CARDIAC: Regular rhythm, regular rate. S1/S2 are heard. No murmurs gallops or rubs. LUNGS: Clear to auscultation bilaterally. No wheeze, rhonchi or rales. No use of accessory muscles on inspiration or expiration. ABDOMEN: Soft, nontender. Nondistended. Bowel sounds heard in all 4 quadrants. No organomegaly or masses. Negative rebound, negative guarding EXTREMITIES: No edema, pulses are equal bilaterally. No cyanosis or clubbing NEUROLOGY: Mood and affect appear appropriate. Cranial nerves II through XII grossly intact moving all extremities, speech is clear Urinary Catheter: No Vascular Central Line Catheter: No A/P Assessment and Plan Recurrent falls, improved Nursing staff indicates that patient gets weak in her knees when she is standing up, patient states that she does get lightheaded/dizzy when standing Patient does state that she is having neck pain Patient denies any neurological symptoms of weakness, paresthesia, loss of bowel or bladder control Orthostatic vitals do show drop in systolic blood pressure when standing. Improved after hydration Status post 2 L normal saline and continue monitor orthostatic vitals MRI of the neck. Multilevel degenerative changes. Mild degree of canal stenosis C5-C6, anterior fusion C6-C7 MRI of thoracic and lumbar spine do not indicate any acute abnormality Carotid ultrasound was unremarkable Echocardiogram indicate ejection fraction 50-55% without any abnormalities Physical therapy ordered for daily Inability to care for self, unsafe discharge due to cognition Initially he was indicated patient cannot walk, patient is walking at this time, PT and OT recommending supervision at home for safety Speech therapy following the patient intermittently for cognitive evaluations. 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 MIni mental state 28/30, recommended avoid antipsychotics and benzodiazepine. Recommending Depakote or carbamazepine Patient is medically stable for discharge, however due to underlying psychiatric/cognition patient is unsafe discharge until arrangements made by case management Case management for discharge planning Neuropsychiatry evaluated the patient recommended patient may improve with treatment, however indicates avoid benzodiazepines and antipsychotics Continue Prozac 40 mg daily Depakene 500 mg twice daily Seroquel 100 mg twice daily *Discussed with psychiatry again about patient's cognition issues. He indicated that the patient lacks capacity for signing AMA or to participate in discharge plan. He is recommending that he would invite the ethics committee to the hospital to have a discussion about patient care *Consulted case management for ethics committee review, awaiting response Multiple traumatic injuries, Patient laceration, subdural hemorrhage, ventricular hemorrhage, nasal fracture, C6 fracture, C1-C2 subluxation, C4 transverse process fracture, right rib fracture, L1 transverse process fracture, right pubic rami fracture Continue c-collar this time, however patient does not wear Follow-up cervical spine CT 1026/17 indicates no evidence of acute fracture. Postsurgical changes Specialist no longer following patient, patient will require outpatient follow-up if discharge Right breast abscess, improved Physical exam patient does have a erythematous area with drainage Ultrasound does show complex loculated collection measuring 2.4 x 1.7 x 1.8 cm. Representing breast abscess Status post Augmentin 500 mg twice daily for 10 days., Bactrim DS for 18 days Gen. surgery consulted who recommends no intervention at this time, Soft tissue ultrasound shows a improvement of the fluid collection. Hypothyroidism TSH 5.11 Free T4 0.57, free T3 1 0.47 Levothyroxine 25 g daily Monitor TSH every 6-8 weeks Hypertension, Amlodipine 5 mg daily DVT prevention Patient ambulating Sequential compression devices while in bed Medical records were reviewed, no change in current treatment plan, awaiting case management for discharge planning Discharge Planning Case management for discharge planning, Conrado Mariee Dec 08, 2017 09:32
[2017-12-08 16:00] VITALS: BP 121/80; PULSE 70; RESP 18
[2017-12-08 20:00] VITALS: BP 167/95; PULSE 63; RESP 18; TEMP 96.5; O2SAT 91
[2017-12-08] MEDS: amLODIPine BESYLATE 5 MG TAB PO SCH (22:02)
[2017-12-09] MEDS: LEVOTHYROXINE SODIUM 25 MCG TAB PO SCH (06:20)
--- NOTE | 2017-12-09 09:08 | HHI.PR ---
Subjective Remarks Patient seen and examined today for follow-up on unsafe discharge due to cognition. Patient denies any new complaints today. No change in clinical status. Blood pressure has been running mildly high. Will adjust medications. Afebrile Objective Vitals Vital Signs Date Time Temp Pulse Resp B/P (MAP) Pulse Ox O2 Delivery O2 Flow Rate FiO2 12/08/17 20:00 96.5 63 18 167/95 (119) 91 12/08/17 16:00 70 18 121/80 (94) I/O 12/08/17 12/08/17 12/08/17 12/09/17 12/09/17 12/09/17 07:00 15:00 23:00 07:00 15:00 23:00 Intake Total 440 ml 200 ml 480 ml Balance 440 ml 200 ml 480 ml Intake Oral 440 ml 200 ml 480 ml # Voids 2 5 3 # Bowel Movements 0 1 1 Objective Remarks GENERAL: Well-developed, well-nourished, in no acute distress. alert and orientated waxes and wanes daily HEENT: Head is normocephalic without any lesions or masses noted. Facial features are symmetric. Eyes: Extraocular muscles are intact. Conjunctivae were clear. NECK: C-collar in on table at bedside CARDIAC: Regular rhythm, regular rate. S1/S2 are heard. No murmurs gallops or rubs. LUNGS: Clear to auscultation bilaterally. No wheeze, rhonchi or rales. No use of accessory muscles on inspiration or expiration. ABDOMEN: Soft, nontender. Nondistended. Bowel sounds heard in all 4 quadrants. No organomegaly or masses. Negative rebound, negative guarding EXTREMITIES: No edema, pulses are equal bilaterally. No cyanosis or clubbing NEUROLOGY: Mood and affect appear appropriate. Cranial nerves II through XII grossly intact moving all extremities, speech is clear Urinary Catheter: No Vascular Central Line Catheter: No A/P Assessment and Plan Recurrent falls, improved Nursing staff indicates that patient gets weak in her knees when she is standing up, patient states that she does get lightheaded/dizzy when standing Patient does state that she is having neck pain Patient denies any neurological symptoms of weakness, paresthesia, loss of bowel or bladder control Orthostatic vitals do show drop in systolic blood pressure when standing. Improved after hydration Status post 2 L normal saline and continue monitor orthostatic vitals MRI of the neck. Multilevel degenerative changes. Mild degree of canal stenosis C5-C6, anterior fusion C6-C7 MRI of thoracic and lumbar spine do not indicate any acute abnormality Carotid ultrasound was unremarkable Echocardiogram indicate ejection fraction 50-55% without any abnormalities Physical therapy ordered for daily Inability to care for self, unsafe discharge due to cognition Initially he was indicated patient cannot walk, patient is walking at this time, PT and OT recommending supervision at home for safety Speech therapy following the patient intermittently for cognitive evaluations. 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 MIni mental state 28/30, recommended avoid antipsychotics and benzodiazepine. Recommending Depakote or carbamazepine Patient is medically stable for discharge, however due to underlying psychiatric/cognition patient is unsafe discharge until arrangements made by case management Case management for discharge planning Neuropsychiatry evaluated the patient recommended patient may improve with treatment, however indicates avoid benzodiazepines and antipsychotics Continue Prozac 40 mg daily Depakene 500 mg twice daily Seroquel 100 mg twice daily *Discussed with psychiatry again about patient's cognition issues. He indicated that the patient lacks capacity for signing AMA or to participate in discharge plan. He is recommending that he would invite the ethics committee to the hospital to have a discussion about patient care *Consulted case management for ethics committee review, awaiting response Multiple traumatic injuries, Patient laceration, subdural hemorrhage, ventricular hemorrhage, nasal fracture, C6 fracture, C1-C2 subluxation, C4 transverse process fracture, right rib fracture, L1 transverse process fracture, right pubic rami fracture Continue c-collar this time, however patient does not wear Follow-up cervical spine CT 1026/17 indicates no evidence of acute fracture. Postsurgical changes Specialist no longer following patient, patient will require outpatient follow-up if discharge Right breast abscess, improved Physical exam patient does have a erythematous area with drainage Ultrasound does show complex loculated collection measuring 2.4 x 1.7 x 1.8 cm. Representing breast abscess Status post Augmentin 500 mg twice daily for 10 days., Bactrim DS for 18 days Gen. surgery consulted who recommends no intervention at this time, Soft tissue ultrasound shows a improvement of the fluid collection. Hypothyroidism TSH 5.11 Free T4 0.57, free T3 1 0.47 Levothyroxine 25 g daily Monitor TSH every 6-8 weeks Hypertension, Amlodipine 10 mg daily DVT prevention Patient ambulating Sequential compression devices while in bed Medical records were reviewed, awaiting case management for discharge planning, no change in current treatment plan, Discharge Planning Case management for discharge planning, Conrado Mariee Dec 09, 2017 09:08
[2017-12-09] MEDS: VALPROIC ACID 250 MG CAP PO SCH ×2 (09:37→21:06)
[2017-12-09] MEDS: FLUoxetine HCL 20 MG CAP PO SCH (09:37)
[2017-12-09] MEDS: QUEtiapine FUMARATE 100 MG TAB PO SCH ×2 (09:37→21:06)
[2017-12-09 11:39] LABS: AUTOMATED NEUTROPHIL # 2.6 TH/MM3 (1.8-7.7); BASOPHIL % 0.9 % (0.0-2.0); EOSINOPHIL # 0.1 TH/MM3 (0-0.4); EOSINOPHIL % 2.5 % (0.0-4.0); HEMATOCRIT 38.2 % (35.0-46.0); HEMOGLOBIN 12.4 GM/DL (11.6-15.3); LYMPH % 31.9 % (9.0-44.0); LYMPHOCYTE # 1.4 TH/MM3 (1.0-4.8); MEAN CELL VOLUME 96.8 FL (80.0-100.0); MEAN CORPUSCULAR HEMOGLOBIN 31.4 PG (27.0-34.0); MEAN CORPUSCULAR HGB CONC 32.4 % (32.0-36.0); MEAN PLATELET VOLUME 6.2 FL (7.0-11.0); MONO % 6.5 % (0.0-8.0); MONOCYTE # 0.3 TH/MM3 (0-0.9); NEUT % 58.2 % (16.0-70.0); PLATELET COUNT 191 TH/MM3 (150-450); RED BLOOD COUNT 3.94 MIL/MM3 (4.00-5.30); RED CELL DISTRIBUTION WIDTH 14.8 % (11.6-17.2); WHITE BLOOD COUNT 4.4 TH/MM3 (4.0-11.0)
[2017-12-09 11:49] LABS: CALCIUM 8.8 MG/DL (8.5-10.1)
[2017-12-09 11:50] LABS: BICARBONATE 31.5 MEQ/L (21.0-32.0)
[2017-12-09 11:53] LABS: CREATININE 0.75 MG/DL (0.50-1.00)
[2017-12-09 12:00] VITALS: BP 105/62; PULSE 65; RESP 16; TEMP 96.4; O2SAT 94
[2017-12-09 18:18] LABS: BILIRUBIN, URINE NEG (NEG); BLOOD, URINE NEG (NEG); GLUCOSE,URINE NEG (NEG); KETONE, URINE NEG (NEG); NITRITE,URINE NEG (NEG); URINE LEUKOCYTE ESTERASE NEG (NEG)
[2017-12-09 18:26] LABS: URINE COLOR YELLOW (YELLW/STRAW)
[2017-12-09 18:27] LABS: RBC, URINE 0-2 /hpf (0-3); SQUAMOUS EPITHELIAL CELL URINE 0-5 /hpf (0-5); WBC, URINE 0-2 /hpf (0-5)
[2017-12-09 20:00] VITALS: BP 142/93; PULSE 74; RESP 16; TEMP 97.3; O2SAT 95
[2017-12-09] MEDS ORDERED: HALOPERIDOL LACTATE 5 MG/ML AMP IM ONE (23:30)
[2017-12-10] MEDS: ACETAMINOPHEN 325 MG TAB PO PRN (01:28)
[2017-12-10] MEDS: LEVOTHYROXINE SODIUM 25 MCG TAB PO SCH (06:35)
[2017-12-10 08:00] VITALS: BP_SYST 109; BP_SYST 146; BP_DIAS 65; BP_DIAS 75; PULSE 59; PULSE 72; RESP 16; RESP 18; TEMP 97.6; O2SAT 97
--- NOTE | 2017-12-10 08:22 | HHI.PR ---
Subjective Remarks Patient seen and examined today for follow-up on unsafe discharge due to cognition. Patient quite pleasant today. Stated that she just got back from the store and got her breakfast. Patient denies any new complaints. No change in clinical status. Afebrile Objective Vitals Vital Signs Date Time Temp Pulse Resp B/P (MAP) Pulse Ox O2 Delivery O2 Flow Rate FiO2 12/09/17 20:00 97.3 74 16 142/93 (109) 95 12/09/17 12:00 96.4 65 16 105/62 (76) 94 I/O 12/09/17 12/09/17 12/09/17 12/10/17 12/10/17 12/10/17 07:00 15:00 23:00 07:00 15:00 23:00 Intake Total 480 ml 120 ml 300 ml 600 ml Output Total 400 ml Balance 480 ml 120 ml -100 ml 600 ml Intake Oral 480 ml 120 ml 300 ml 600 ml Output Urine Total 400 ml # Voids 3 3 # Bowel Movements 1 0 Result Diagram: 12/09/17 1130 12/09/17 1130 Objective Remarks GENERAL: Well-developed, well-nourished, in no acute distress. alert and orientated waxes and wanes daily HEENT: Head is normocephalic without any lesions or masses noted. Facial features are symmetric. Eyes: Extraocular muscles are intact. Conjunctivae were clear. NECK: C-collar in on table at bedside CARDIAC: Regular rhythm, regular rate. S1/S2 are heard. No murmurs gallops or rubs. LUNGS: Clear to auscultation bilaterally. No wheeze, rhonchi or rales. No use of accessory muscles on inspiration or expiration. ABDOMEN: Soft, nontender. Nondistended. Bowel sounds heard in all 4 quadrants. No organomegaly or masses. Negative rebound, negative guarding EXTREMITIES: No edema, pulses are equal bilaterally. No cyanosis or clubbing NEUROLOGY: Mood and affect appear appropriate. Cranial nerves II through XII grossly intact moving all extremities, speech is clear Urinary Catheter: No Vascular Central Line Catheter: No A/P Assessment and Plan Inability to care for self, unsafe discharge due to cognition Initially he was indicated patient cannot walk, patient is walking at this time, PT and OT recommending supervision at home for safety Speech therapy following the patient intermittently for cognitive evaluations. 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 MIni mental state 28/30, recommended avoid antipsychotics and benzodiazepine. Recommending Depakote or carbamazepine Patient is medically stable for discharge, however due to underlying psychiatric/cognition patient is unsafe discharge until arrangements made by case management Case management for discharge planning Neuropsychiatry evaluated the patient recommended patient may improve with treatment, however indicates avoid benzodiazepines and antipsychotics Continue Prozac 40 mg daily Depakene 500 mg twice daily Seroquel 100 mg twice daily *Discussed with psychiatry again about patient's cognition issues. He indicated that the patient lacks capacity for signing AMA or to participate in discharge plan. He is recommending that he would invite the ethics committee to the hospital to have a discussion about patient care *Consulted case management for ethics committee review, awaiting response Recurrent falls, improved Nursing staff indicates that patient gets weak in her knees when she is standing up, patient states that she does get lightheaded/dizzy when standing Patient does state that she is having neck pain Patient denies any neurological symptoms of weakness, paresthesia, loss of bowel or bladder control Orthostatic vitals do show drop in systolic blood pressure when standing. Improved after hydration Status post 2 L normal saline and continue monitor orthostatic vitals MRI of the neck. Multilevel degenerative changes. Mild degree of canal stenosis C5-C6, anterior fusion C6-C7 MRI of thoracic and lumbar spine do not indicate any acute abnormality Carotid ultrasound was unremarkable Echocardiogram indicate ejection fraction 50-55% without any abnormalities Physical therapy ordered for 5 days a week Multiple traumatic injuries, Patient laceration, subdural hemorrhage, ventricular hemorrhage, nasal fracture, C6 fracture, C1-C2 subluxation, C4 transverse process fracture, right rib fracture, L1 transverse process fracture, right pubic rami fracture Continue c-collar this time, however patient does not wear Follow-up cervical spine CT 1026/17 indicates no evidence of acute fracture. Postsurgical changes Specialist no longer following patient, patient will require outpatient follow-up if discharge Right breast abscess, improved Physical exam patient does have a erythematous area with drainage Ultrasound does show complex loculated collection measuring 2.4 x 1.7 x 1.8 cm. Representing breast abscess Status post Augmentin 500 mg twice daily for 10 days., Bactrim DS for 18 days Gen. surgery consulted who recommends no intervention at this time, Soft tissue ultrasound shows a improvement of the fluid collection. Hypothyroidism TSH 5.11 Free T4 0.57, free T3 1 0.47 Levothyroxine 25 g daily Monitor TSH every 6-8 weeks Hypertension, Amlodipine 10 mg daily DVT prevention Patient ambulating Sequential compression devices while in bed Medical records were reviewed, no change in current treatment plan, awaiting case management for discharge planning, Discharge Planning Case management for discharge planning, Conrado Mariee Dec 10, 2017 08:22
[2017-12-10] MEDS: QUEtiapine FUMARATE 100 MG TAB PO SCH ×2 (10:33→20:52)
[2017-12-10] MEDS: FLUoxetine HCL 20 MG CAP PO SCH (10:33)
[2017-12-10] MEDS: VALPROIC ACID 250 MG CAP PO SCH ×2 (10:37→20:52)
[2017-12-10 20:00] VITALS: BP 121/81; PULSE 69; RESP 20; TEMP 96.4; O2SAT 94
[2017-12-11] MEDS: LEVOTHYROXINE SODIUM 25 MCG TAB PO SCH (05:36)
[2017-12-11 08:00] VITALS: BP 158/89; PULSE 61; RESP 17; TEMP 97.8; O2SAT 93
[2017-12-11] MEDS: QUEtiapine FUMARATE 100 MG TAB PO SCH ×2 (09:01→20:44)
[2017-12-11] MEDS: VALPROIC ACID 250 MG CAP PO SCH ×2 (09:01→20:44)
[2017-12-11] MEDS: FLUoxetine HCL 20 MG CAP PO SCH (09:01)
--- NOTE | 2017-12-11 11:38 | HHI.PR ---
Subjective Remarks Patient seen and examined today for follow-up on unsafe discharge due to cognition. Patient denies any new complaints. Resting carefully. Vital signs are stable, afebrile. Objective Vitals Vital Signs Date Time Temp Pulse Resp B/P (MAP) Pulse Ox O2 Delivery O2 Flow Rate FiO2 12/10/17 20:00 96.4 69 20 121/81 (94) 94 I/O 12/10/17 12/10/17 12/10/17 12/11/17 12/11/17 12/11/17 07:00 15:00 23:00 07:00 15:00 23:00 Intake Total 600 ml 480 ml 120 ml Balance 600 ml 480 ml 120 ml Intake Oral 600 ml 480 ml 120 ml # Voids 3 2 # Bowel Movements 0 Result Diagram: 12/09/17 1130 12/09/17 1130 Objective Remarks GENERAL: Well-developed, well-nourished, in no acute distress. alert and orientated waxes and wanes daily HEENT: Head is normocephalic without any lesions or masses noted. Facial features are symmetric. Eyes: Extraocular muscles are intact. Conjunctivae were clear. NECK: C-collar in on table at bedside CARDIAC: Regular rhythm, regular rate. S1/S2 are heard. No murmurs gallops or rubs. LUNGS: Clear to auscultation bilaterally. No wheeze, rhonchi or rales. No use of accessory muscles on inspiration or expiration. ABDOMEN: Soft, nontender. Nondistended. Bowel sounds heard in all 4 quadrants. No organomegaly or masses. Negative rebound, negative guarding EXTREMITIES: No edema, pulses are equal bilaterally. No cyanosis or clubbing NEUROLOGY: Mood and affect appear appropriate. Cranial nerves II through XII grossly intact moving all extremities, speech is clear Urinary Catheter: No Vascular Central Line Catheter: No A/P Assessment and Plan Inability to care for self, unsafe discharge due to cognition Initially he was indicated patient cannot walk, patient is walking at this time, PT and OT recommending supervision at home for safety Speech therapy following the patient intermittently for cognitive evaluations. 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 MIni mental state 28/30, recommended avoid antipsychotics and benzodiazepine. Recommending Depakote or carbamazepine Patient is medically stable for discharge, however due to underlying psychiatric/cognition patient is unsafe discharge until arrangements made by case management Case management for discharge planning Neuropsychiatry evaluated the patient recommended patient may improve with treatment, however indicates avoid benzodiazepines and antipsychotics Continue Prozac 40 mg daily Depakene 500 mg twice daily Seroquel 100 mg twice daily *Discussed with psychiatry again about patient's cognition issues. He indicated that the patient lacks capacity for signing AMA or to participate in discharge plan. He is recommending that he would invite the ethics committee to the hospital to have a discussion about patient care *Consulted case management for ethics committee review, awaiting response Recurrent falls, improved Nursing staff indicates that patient gets weak in her knees when she is standing up, patient states that she does get lightheaded/dizzy when standing Patient does state that she is having neck pain Patient denies any neurological symptoms of weakness, paresthesia, loss of bowel or bladder control Orthostatic vitals do show drop in systolic blood pressure when standing. Improved after hydration Status post 2 L normal saline and continue monitor orthostatic vitals MRI of the neck. Multilevel degenerative changes. Mild degree of canal stenosis C5-C6, anterior fusion C6-C7 MRI of thoracic and lumbar spine do not indicate any acute abnormality Carotid ultrasound was unremarkable Echocardiogram indicate ejection fraction 50-55% without any abnormalities Physical therapy ordered for 5 days a week Multiple traumatic injuries, Patient laceration, subdural hemorrhage, ventricular hemorrhage, nasal fracture, C6 fracture, C1-C2 subluxation, C4 transverse process fracture, right rib fracture, L1 transverse process fracture, right pubic rami fracture Continue c-collar this time, however patient does not wear Follow-up cervical spine CT 1026/17 indicates no evidence of acute fracture. Postsurgical changes Specialist no longer following patient, patient will require outpatient follow-up if discharge Right breast abscess, improved Physical exam patient does have a erythematous area with drainage Ultrasound does show complex loculated collection measuring 2.4 x 1.7 x 1.8 cm. Representing breast abscess Status post Augmentin 500 mg twice daily for 10 days., Bactrim DS for 18 days Gen. surgery consulted who recommends no intervention at this time, Soft tissue ultrasound shows a improvement of the fluid collection. Hypothyroidism TSH 5.11 Free T4 0.57, free T3 1 0.47 Levothyroxine 25 g daily Monitor TSH every 6-8 weeks Hypertension, Amlodipine 10 mg daily DVT prevention Patient ambulating Sequential compression devices while in bed Medical records were reviewed, awaiting case management for discharge planning, no change in current treatment plan, Discharge Planning Case management for discharge planning, Conrado Mariee Dec 11, 2017 11:38
[2017-12-11 20:00] VITALS: BP 139/84; PULSE 72; RESP 20; TEMP 97.1; O2SAT 95
[2017-12-11 22:10] VITALS: BP 129/87; PULSE 80; RESP 18; TEMP 96.8; O2SAT 93
[2017-12-12 02:00] VITALS: BP 114/78; PULSE 61; RESP 18; TEMP 98.2; O2SAT 94
[2017-12-12 06:00] VITALS: BP 134/89; PULSE 58; RESP 16; TEMP 98.4; O2SAT 94
[2017-12-12] MEDS: LEVOTHYROXINE SODIUM 25 MCG TAB PO SCH (06:16)
--- NOTE | 2017-12-12 07:20 | HHI.PR ---
Subjective Remarks Patient seen and examined today for follow-up on unsafe discharge due to cognition. Patient states more depressed today. Resting comfortably. Vital signs are stable, afebrile. Objective Vitals Vital Signs Date Time Temp Pulse Resp B/P (MAP) Pulse Ox O2 Delivery O2 Flow Rate FiO2 12/12/17 06:00 98.4 58 16 134/89 (104) 94 12/12/17 02:00 98.2 61 18 114/78 (90) 94 12/11/17 22:10 96.8 80 18 129/87 (101) 93 12/11/17 20:00 97.1 72 20 139/84 (102) 95 12/11/17 08:00 97.8 61 17 158/89 (112) 93 I/O 12/11/17 12/11/17 12/11/17 12/12/17 12/12/17 12/12/17 07:00 15:00 23:00 07:00 15:00 23:00 Intake Total 120 ml 2 ml 120 ml Balance 120 ml 2 ml 120 ml Intake Oral 120 ml 120 ml IV Total 2 ml # Voids 2 3 Result Diagram: 12/09/17 1130 12/09/17 1130 Objective Remarks GENERAL: Well-developed, well-nourished, in no acute distress. alert and orientated waxes and wanes daily HEENT: Head is normocephalic without any lesions or masses noted. Facial features are symmetric. Eyes: Extraocular muscles are intact. Conjunctivae were clear. NECK: C-collar in on table at bedside CARDIAC: Regular rhythm, regular rate. S1/S2 are heard. No murmurs gallops or rubs. LUNGS: Clear to auscultation bilaterally. No wheeze, rhonchi or rales. No use of accessory muscles on inspiration or expiration. ABDOMEN: Soft, nontender. Nondistended. Bowel sounds heard in all 4 quadrants. No organomegaly or masses. Negative rebound, negative guarding EXTREMITIES: No edema, pulses are equal bilaterally. No cyanosis or clubbing NEUROLOGY: Mood and affect appear appropriate. Cranial nerves II through XII grossly intact moving all extremities, speech is clear Urinary Catheter: No Vascular Central Line Catheter: No A/P Assessment and Plan Inability to care for self, unsafe discharge due to cognition Initially he was indicated patient cannot walk, patient is walking at this time, PT and OT recommending supervision at home for safety Speech therapy following the patient intermittently for cognitive evaluations. 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 MIni mental state 28/30, recommended avoid antipsychotics and benzodiazepine. Recommending Depakote or carbamazepine Patient is medically stable for discharge, however due to underlying psychiatric/cognition patient is unsafe discharge until arrangements made by case management Case management for discharge planning Neuropsychiatry evaluated the patient recommended patient may improve with treatment, however indicates avoid benzodiazepines and antipsychotics Continue Prozac 40 mg daily Depakene 500 mg twice daily Seroquel 100 mg twice daily *Discussed with psychiatry again about patient's cognition issues. He indicated that the patient lacks capacity for signing AMA or to participate in discharge plan. He is recommending that he would invite the ethics committee to the hospital to have a discussion about patient care *Consulted case management for ethics committee review, awaiting response Recurrent falls, improved Nursing staff indicates that patient gets weak in her knees when she is standing up, patient states that she does get lightheaded/dizzy when standing Patient does state that she is having neck pain Patient denies any neurological symptoms of weakness, paresthesia, loss of bowel or bladder control Orthostatic vitals do show drop in systolic blood pressure when standing. Improved after hydration Status post 2 L normal saline and continue monitor orthostatic vitals MRI of the neck. Multilevel degenerative changes. Mild degree of canal stenosis C5-C6, anterior fusion C6-C7 MRI of thoracic and lumbar spine do not indicate any acute abnormality Carotid ultrasound was unremarkable Echocardiogram indicate ejection fraction 50-55% without any abnormalities Physical therapy ordered for 5 days a week Multiple traumatic injuries, Patient laceration, subdural hemorrhage, ventricular hemorrhage, nasal fracture, C6 fracture, C1-C2 subluxation, C4 transverse process fracture, right rib fracture, L1 transverse process fracture, right pubic rami fracture Continue c-collar this time, however patient does not wear Follow-up cervical spine CT indicates no evidence of acute fracture. Postsurgical changes Specialist no longer following patient, patient will require outpatient follow-up if discharge Right breast abscess, improved Physical exam patient does have a erythematous area with drainage Ultrasound does show complex loculated collection measuring 2.4 x 1.7 x 1.8 cm. Representing breast abscess Status post Augmentin 500 mg twice daily for 10 days., Bactrim DS for 18 days Gen. surgery consulted who recommends no intervention at this time, Soft tissue ultrasound shows a improvement of the fluid collection. Hypothyroidism TSH 5.11 Free T4 0.57, free T3 1 0.47 Levothyroxine 25 g daily Monitor TSH every 6-8 weeks Hypertension, Amlodipine 10 mg daily DVT prevention Patient ambulating Sequential compression devices while in bed Medical records were reviewed, no change in current treatment plan, awaiting case management for discharge planning, Discharge Planning Case management for discharge planning, Conrado Mariee Dec 12, 2017 07:20
[2017-12-12 08:00] VITALS: BP 133/77; PULSE 74; RESP 16; TEMP 96.6; O2SAT 95
[2017-12-12] MEDS: VALPROIC ACID 250 MG CAP PO SCH ×2 (08:46→22:34)
[2017-12-12] MEDS: QUEtiapine FUMARATE 100 MG TAB PO SCH ×2 (08:47→22:34)
[2017-12-12] MEDS: FLUoxetine HCL 20 MG CAP PO SCH (08:47)
--- NOTE | 2017-12-12 10:51 | HHI.PR ---
Addendum To [facility] Progress Not Reason for addendum: Additonal documentation (Yoli has had falls and has had a sitter; The patient has had multiple evaluations. She appears to be closer supervision. We'll transfer closer to nursing station.) Michelle Wilson MD Dec 12, 2017 10:51
[2017-12-12 11:28] VITALS: BP 144/95; PULSE 74; RESP 16; TEMP 96.3; O2SAT 95
[2017-12-12 16:00] VITALS: BP 135/89; PULSE 69; RESP 16; TEMP 96.4
[2017-12-12 20:00] VITALS: BP 127/81; PULSE 80; RESP 16; TEMP 97.7; O2SAT 96
[2017-12-13] MEDS: LEVOTHYROXINE SODIUM 25 MCG TAB PO SCH (06:18)
[2017-12-13 08:00] VITALS: BP 129/86; PULSE 63; RESP 20; TEMP 96.2; O2SAT 94
[2017-12-13] MEDS: FLUoxetine HCL 20 MG CAP PO SCH (10:13)
[2017-12-13] MEDS: VALPROIC ACID 250 MG CAP PO SCH ×2 (10:13→20:30)
[2017-12-13] MEDS: QUEtiapine FUMARATE 100 MG TAB PO SCH ×2 (10:14→20:30)
--- NOTE | 2017-12-13 10:38 | HHI.PR ---
Subjective Remarks Patient seen and examined today for follow-up on unsafe discharge due to cognition. Patient denies any new complaints. Patient still with intermittent falls. Patient had removed close to nursing station. Vital signs are stable, afebrile Objective Vitals Vital Signs Date Time Temp Pulse Resp B/P (MAP) Pulse Ox O2 Delivery O2 Flow Rate FiO2 12/13/17 08:00 96.2 63 20 129/86 (100) 94 12/12/17 20:00 97.7 80 16 127/81 (96) 96 12/12/17 16:00 96.4 69 16 135/89 (104) 12/12/17 11:28 96.3 74 16 144/95 (111) 95 I/O 12/12/17 12/12/17 12/12/17 12/13/17 12/13/17 12/13/17 07:00 15:00 23:00 07:00 15:00 23:00 Intake Total 120 ml 0 ml 240 ml 240 ml Balance 120 ml 0 ml 240 ml 240 ml Intake Oral 120 ml 240 ml 240 ml IV Total 0 ml # Voids 3 1 1 Result Diagram: 12/09/17 1130 12/09/17 1130 Objective Remarks GENERAL: Well-developed, well-nourished, in no acute distress. alert and orientated waxes and wanes daily HEENT: Head is normocephalic without any lesions or masses noted. Facial features are symmetric. Eyes: Extraocular muscles are intact. Conjunctivae were clear. NECK: C-collar in on table at bedside CARDIAC: Regular rhythm, regular rate. S1/S2 are heard. No murmurs gallops or rubs. LUNGS: Clear to auscultation bilaterally. No wheeze, rhonchi or rales. No use of accessory muscles on inspiration or expiration. ABDOMEN: Soft, nontender. Nondistended. Bowel sounds heard in all 4 quadrants. No organomegaly or masses. Negative rebound, negative guarding EXTREMITIES: No edema, pulses are equal bilaterally. No cyanosis or clubbing NEUROLOGY: Mood and affect appear appropriate. Cranial nerves II through XII grossly intact moving all extremities, speech is clear Urinary Catheter: No Vascular Central Line Catheter: No A/P Assessment and Plan Inability to care for self, unsafe discharge due to cognition Initially he was indicated patient cannot walk, patient is walking at this time, PT and OT recommending supervision at home for safety Speech therapy following the patient intermittently for cognitive evaluations. 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 MIni mental state 28/30, recommended avoid antipsychotics and benzodiazepine. Recommending Depakote or carbamazepine Patient is medically stable for discharge, however due to underlying psychiatric/cognition patient is unsafe discharge until arrangements made by case management Case management for discharge planning Neuropsychiatry evaluated the patient recommended patient may improve with treatment, however indicates avoid benzodiazepines and antipsychotics Continue Prozac 40 mg daily Depakene 500 mg twice daily Seroquel 100 mg twice daily *Discussed with psychiatry again about patient's cognition issues. He indicated that the patient lacks capacity for signing AMA or to participate in discharge plan. He is recommending that he would invite the ethics committee to the hospital to have a discussion about patient care *Consulted case management for ethics committee review, awaiting response Recurrent falls, Patient moved close to nursing station Patient does state that she is having neck pain Patient denies any neurological symptoms of weakness, paresthesia, loss of bowel or bladder control Orthostatic vitals do show drop in systolic blood pressure when standing. Improved after hydration Status post 2 L normal saline and continue monitor orthostatic vitals MRI of the neck. Multilevel degenerative changes. Mild degree of canal stenosis C5-C6, anterior fusion C6-C7 MRI of thoracic and lumbar spine do not indicate any acute abnormality Carotid ultrasound was unremarkable Echocardiogram indicate ejection fraction 50-55% without any abnormalities Physical therapy ordered for 5 days a week Multiple traumatic injuries, Patient laceration, subdural hemorrhage, ventricular hemorrhage, nasal fracture, C6 fracture, C1-C2 subluxation, C4 transverse process fracture, right rib fracture, L1 transverse process fracture, right pubic rami fracture Continue c-collar this time, however patient does not wear Follow-up cervical spine CT 102/ indicates no evidence of acute fracture. Postsurgical changes Specialist no longer following patient, patient will require outpatient follow-up if discharge Right breast abscess, improved Physical exam patient does have a erythematous area with drainage Ultrasound does show complex loculated collection measuring 2.4 x 1.7 x 1.8 cm. Representing breast abscess Status post Augmentin 500 mg twice daily for 10 days., Bactrim DS for 18 days Gen. surgery consulted who recommends no intervention at this time, Soft tissue ultrasound shows a improvement of the fluid collection. Hypothyroidism TSH 5.11 Free T4 0.57, free T3 1 0.47 Levothyroxine 25 g daily Monitor TSH every 6-8 weeks Hypertension, Amlodipine 10 mg daily DVT prevention Patient ambulating Sequential compression devices while in bed Medical records were reviewed, awaiting case management for discharge planning, no change in current treatment plan, Discharge Planning Case management for discharge planning, Conrado Mariee Dec 13, 2017 10:38
[2017-12-13] MEDS: ACETAMINOPHEN 325 MG TAB PO PRN (20:30)
[2017-12-14] MEDS: LEVOTHYROXINE SODIUM 25 MCG TAB PO SCH (05:42)
[2017-12-14 08:00] VITALS: BP 162/76; PULSE 80; RESP 16; TEMP 97.4; O2SAT 93
[2017-12-14] MEDS: FLUoxetine HCL 20 MG CAP PO SCH (09:24)
[2017-12-14] MEDS: QUEtiapine FUMARATE 100 MG TAB PO SCH ×2 (09:24→20:22)
[2017-12-14] MEDS: VALPROIC ACID 250 MG CAP PO SCH ×2 (09:24→20:22)
--- NOTE | 2017-12-14 10:31 | HHI.PR ---
Subjective Remarks Follow-up an unsafe discharge due to cognition. Patient seen and examined, walking halls with walker and sitter. Denies any acute events overnight. Clinically stable no change in condition. Vital signs are stable. Afebrile. Continued room close to nursing station. Objective Vitals Vital Signs Date Time Temp Pulse Resp B/P (MAP) Pulse Ox O2 Delivery O2 Flow Rate FiO2 12/14/17 08:00 97.4 80 16 162/76 (104) 93 I/O 12/13/17 12/13/17 12/13/17 12/14/17 12/14/17 12/14/17 07:00 15:00 23:00 07:00 15:00 23:00 Intake Total 240 ml 360 ml Balance 240 ml 360 ml Intake Oral 240 ml 360 ml # Voids 1 4 # Bowel Movements 1 Imaging Last Impressions Thoracic Spine MRI 12/01/17 0000 Signed Impressions: Service Date/Time: Friday, December 01, 2017 15:10 - CONCLUSION: Negative for acute process. Vimal Taylor MD FACR Lumbar Spine MRI 12/01/17 0000 Signed Impressions: Service Date/Time: Friday, December 01, 2017 15:10 - CONCLUSION: Negative MRI of the lumbar spine. Vimal Taylor MD FACR Carotid Artery Ultrasound 11/30/17 0000 Signed Impressions: Service Date/Time: Thursday, November 30, 2017 14:34 - CONCLUSION: 1. Mild plaque with no hemodynamically significant stenosis. Vertebral artery flow antegrade. Fadi Carolina MD Cervical Spine MRI 11/28/17 0000 Signed Impressions: Service Date/Time: Tuesday, November 28, 2017 15:10 - CONCLUSION: 1. Multilevel posterior disc osteophyte complexes as described above. 2. Anterior fusion C6- 7. Dylon Haddad MD Knee X-Ray 11/02/17 0000 Signed Impressions: Service Date/Time: Thursday, November 02, 2017 18:51 - CONCLUSION: Intact right knee. Jovany Hayes MD Head CT 11/02/17 0000 Signed Impressions: Service Date/Time: Thursday, November 02, 2017 18:35 - CONCLUSION: 1. No bleed or other acute intracranial abnormality. 2. Previously seen intracranial hemorrhage has resolved. A small area of chronic encephalomalacia has developed of the right frontal lobe. 3. Chronic periventricular white matter changes are again noted. Jovany Hayes MD Breast Ultrasound 10/15/17 0000 Signed Impressions: Service Date/Time: Sunday, October 15, 2017 09:06 - CONCLUSION: Persistent subcutaneous collection at the 12:00 position of the right breast. It has slightly decreased in size since the study dated 09/23/2017 and could represent an infectious process. Consider followup to confirm resolution. Jovany Quezada MD Chest X-Ray 09/03/17 0000 Signed Impressions: Service Date/Time: Sunday, September 03, 2017 17:02 - CONCLUSION: 1. Mild edema pattern. Subsegmental basilar airspace disease most characteristic of atelectasis.. Fadi Carolina MD Cervical Spine CT 09/02/17 0000 Signed Impressions: Service Date/Time: August 12:56 - CONCLUSION: Postsurgical changes from anterior cervical plate at C6-7. No evidence of compression deformity or spondylolisthesis. Arun Regan MD Pelvis X-Ray 06/30/17 0000 Signed Impressions: Service Date/Time: Friday, June 30, 2017 12:17 - CONCLUSION: No significant change has occurred. Carlos Capps MD Objective Remarks GENERAL: Well-nourished, well-developed female in NAD. SKIN: Warm and dry. No rash. Right breast abscess improved. HEENT: Normocephalic. Atraumatic. Pupils equal and round. No scleral icterus. No injection or drainage. No nasal bleeding or discharge. Mucous membranes pink and moist. NECK: Supple. Trachea midline. CARDIOVASCULAR: Regular rate and rhythm. S1, S2 noted. No murmur appreciated. RESPIRATORY: No accessory muscle use. Clear to auscultation. Breath sounds equal bilaterally. GASTROINTESTINAL: Abdomen soft, non-tender, nondistended. Normoactive bowel sounds x4. No guarding noted. MUSCULOSKELETAL: No obvious deformities. Extremities without clubbing, cyanosis , or edema. NEUROLOGICAL: Awake and alert. No obvious cranial nerve deficits. Motor grossly within normal limits. 5/5 muscle strength in bilateral upper and lower extremities. Normal speech. PSYCHIATRIC: Appropriate mood and affect. A/P Problem List: (1) Alcohol dependence in controlled environment ICD Code: F10.20 - Alcohol dependence, uncomplicated Status: Chronic (2) Facial injury ICD Code: S09.93XA - Unspecified injury of face, initial encounter Status: Acute (3) Fall ICD Code: W19.XXXA - Unspecified fall, initial encounter Status: Acute (4) Hypertension ICD Code: I10 - Essential (primary) hypertension Status: Acute (5) Pelvic fracture ICD Code: S32.9XXA - Fracture of unspecified parts of lumbosacral spine and pelvis, initial encounter for closed fracture Status: Acute (6) C1-C2 subluxation ICD Code: S13.120A - Subluxation of C1/C2 cervical vertebrae, initial encounter Status: Acute (7) C6 cervical fracture ICD Code: S12.500A - Unspecified displaced fracture of sixth cervical vertebra , initial encounter for closed fracture Status: Acute (8) Traumatic brain injury ICD Code: S06.9X9A - Unspecified intracranial injury with loss of consciousness of unspecified duration, initial encounter Status: Acute (9) Nasal fracture ICD Code: S02.2XXA - Fracture of nasal bones, initial encounter for closed fracture Status: Acute (10) Mild neurocognitive disorder ICD Code: G31.84 - Mild cognitive impairment, so stated Status: Acute (11) Intracranial bleed ICD Code: I62.9 - Nontraumatic intracranial hemorrhage, unspecified Status: Acute Assessment and Plan Inability to care for self, unsafe discharge due to cognition Initially he was indicated patient cannot walk, patient is walking at this time, PT and OT recommending supervision at home for safety Speech therapy following the patient intermittently for cognitive evaluations. 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 MIni mental state 28/30, recommended avoid antipsychotics and benzodiazepine. Recommending Depakote or carbamazepine Patient is medically stable for discharge, however due to underlying psychiatric/cognition patient is unsafe discharge until arrangements made by case management Case management for discharge planning Neuropsychiatry evaluated the patient recommended patient may improve with treatment, however indicates avoid benzodiazepines and antipsychotics Continue Prozac 40 mg daily Depakene 500 mg twice daily Seroquel 100 mg twice daily *Discussed with psychiatry again about patient's cognition issues. He indicated that the patient lacks capacity for signing AMA or to participate in discharge plan. He is recommending that he would invite the ethics committee to the hospital to have a discussion about patient care *Consulted case management for ethics committee review, awaiting response Recurrent falls Patient moved close to nursing station Patient denies any neurological symptoms of weakness, paresthesia, loss of bowel or bladder control Orthostatic vitals do show drop in systolic blood pressure when standing. Improved after hydration Status post 2 L normal saline and continue monitor orthostatic vitals MRI of the neck. Multilevel degenerative changes. Mild degree of canal stenosis C5-C6, anterior fusion C6-C7 MRI of thoracic and lumbar spine do not indicate any acute abnormality Carotid ultrasound was unremarkable Echocardiogram indicate ejection fraction 50-55% without any abnormalities Physical therapy ordered for 5 days a week Multiple traumatic injuries, Patient laceration, subdural hemorrhage, ventricular hemorrhage, nasal fracture, C6 fracture, C1-C2 subluxation, C4 transverse process fracture, right rib fracture, L1 transverse process fracture, right pubic rami fracture Continue c-collar this time, however patient does not wear Follow-up cervical spine CT indicates no evidence of acute fracture. Postsurgical changes Specialist no longer following patient, patient will require outpatient follow-up if discharge Right breast abscess, Improved. Physical exam shows improvement. Ultrasound does show complex loculated collection measuring 2.4 x 1.7 x 1.8 cm. Representing breast abscess Status post Augmentin 500 mg twice daily for 10 days (end date 10/25/17). Finished Bactrim DS for 18 days Gen. surgery consulted who recommends no intervention at this time. Soft tissue ultrasound shows a improvement of the fluid collection. Hypothyroidism TSH 5.11 Free T4 0.57, free T3 1 0.47 Levothyroxine 25 g daily Monitor TSH every 6-8 weeks Hypertension Amlodipine 10 mg daily DVT prevention Patient ambulating Sequential compression devices while in bed Records were reviewed. Awaiting case management for discharge planning, No change in current treatment plan. Discharge Planning Due to underlying psychiatric/cognition patient is unsafe discharge until arrangements made by case management. Problem Qualifiers (1) Hypertension: Qualified Codes: I10 - Essential (primary) hypertension Alyssa Means Dec 14, 2017 10:30
[2017-12-14 20:00] VITALS: BP 155/94; PULSE 54; RESP 18; TEMP 96; O2SAT 96
[2017-12-14] MEDS: ACETAMINOPHEN 325 MG TAB PO PRN (20:21)
[2017-12-15] MEDS: LEVOTHYROXINE SODIUM 25 MCG TAB PO SCH (06:23)
[2017-12-15] MEDS: FLUoxetine HCL 20 MG CAP PO SCH (09:49)
[2017-12-15] MEDS: VALPROIC ACID 250 MG CAP PO SCH ×2 (09:49→21:23)
[2017-12-15] MEDS: QUEtiapine FUMARATE 100 MG TAB PO SCH ×2 (09:49→21:23)
[2017-12-15 13:24] VITALS: BP 127/87; PULSE 69; RESP 16; TEMP 96.7; O2SAT 94
--- NOTE | 2017-12-15 15:18 | HHI.PR ---
Subjective Remarks Follow-up an unsafe discharge due to cognition. Patient seen and examined, lying in bed comfortably with no apparent distress. States she's been very tired lately. No falls overnight. Continue to work with PT. Reports of dark and odorous urine which is new for this patient. Objective Vitals Vital Signs Date Time Temp Pulse Resp B/P (MAP) Pulse Ox O2 Delivery O2 Flow Rate FiO2 12/15/17 13:24 96.7 69 16 127/87 (100) 94 12/14/17 20:00 96.0 54 18 155/94 (114) 96 I/O 12/14/17 12/14/17 12/14/17 12/15/17 12/15/17 12/15/17 07:00 15:00 23:00 07:00 15:00 23:00 Intake Total 480 ml 420 ml Balance 480 ml 420 ml Intake Oral 480 ml 420 ml # Voids 3 2 # Bowel Movements 1 1 Imaging Last Impressions Thoracic Spine MRI 12/01/17 0000 Signed Impressions: Service Date/Time: Friday, December 01, 2017 15:10 - CONCLUSION: Negative for acute process. Vimal Taylor MD FACR Lumbar Spine MRI 12/01/17 0000 Signed Impressions: Service Date/Time: Friday, December 01, 2017 15:10 - CONCLUSION: Negative MRI of the lumbar spine. Vimal Taylor MD FACR Carotid Artery Ultrasound 11/30/17 0000 Signed Impressions: Service Date/Time: Thursday, November 30, 2017 14:34 - CONCLUSION: 1. Mild plaque with no hemodynamically significant stenosis. Vertebral artery flow antegrade. Fadi Carolina MD Cervical Spine MRI 11/28/17 0000 Signed Impressions: Service Date/Time: Tuesday, November 28, 2017 15:10 - CONCLUSION: 1. Multilevel posterior disc osteophyte complexes as described above. 2. Anterior fusion C6- 7. Dylon Haddad MD Knee X-Ray 11/02/17 0000 Signed Impressions: Service Date/Time: Thursday, November 02, 2017 18:51 - CONCLUSION: Intact right knee. Jovany Hayes MD Head CT 11/02/17 0000 Signed Impressions: Service Date/Time: Thursday, November 02, 2017 18:35 - CONCLUSION: 1. No bleed or other acute intracranial abnormality. 2. Previously seen intracranial hemorrhage has resolved. A small area of chronic encephalomalacia has developed of the right frontal lobe. 3. Chronic periventricular white matter changes are again noted. Jovany Hayes MD Breast Ultrasound 10/15/17 0000 Signed Impressions: Service Date/Time: Sunday, October 15, 2017 09:06 - CONCLUSION: Persistent subcutaneous collection at the 12:00 position of the right breast. It has slightly decreased in size since the study dated 09/23/2017 and could represent an infectious process. Consider followup to confirm resolution. Jovany Quezada MD Chest X-Ray 09/03/17 0000 Signed Impressions: Service Date/Time: Sunday, September 03, 2017 17:02 - CONCLUSION: 1. Mild edema pattern. Subsegmental basilar airspace disease most characteristic of atelectasis.. Fadi Carolina MD Cervical Spine CT 09/02/17 0000 Signed Impressions: Service Date/Time: August 12:56 - CONCLUSION: Postsurgical changes from anterior cervical plate at C6-7. No evidence of compression deformity or spondylolisthesis. Arun Regan MD Pelvis X-Ray 06/30/17 0000 Signed Impressions: Service Date/Time: Friday, June 30, 2017 12:17 - CONCLUSION: No significant change has occurred. Carlos Capps MD Objective Remarks GENERAL: Well-nourished, well-developed female in NAD. SKIN: Warm and dry. No rash. Right breast abscess improved. HEENT: Normocephalic. Atraumatic. Pupils equal and round. No scleral icterus. No injection or drainage. No nasal bleeding or discharge. Mucous membranes pink and moist. NECK: Supple. Trachea midline. CARDIOVASCULAR: Regular rate and rhythm. S1, S2 noted. No murmur appreciated. RESPIRATORY: No accessory muscle use. Clear to auscultation. Breath sounds equal bilaterally. GASTROINTESTINAL: Abdomen soft, non-tender, nondistended. Normoactive bowel sounds x4. No guarding noted. MUSCULOSKELETAL: No obvious deformities. Extremities without clubbing, cyanosis , or edema. NEUROLOGICAL: Awake and alert. No obvious cranial nerve deficits. Motor grossly within normal limits. 5/5 muscle strength in bilateral upper and lower extremities. Normal speech. PSYCHIATRIC: Appropriate mood and affect. A/P Problem List: (1) Alcohol dependence in controlled environment ICD Code: F10.20 - Alcohol dependence, uncomplicated Status: Chronic (2) Facial injury ICD Code: S09.93XA - Unspecified injury of face, initial encounter Status: Acute (3) Fall ICD Code: W19.XXXA - Unspecified fall, initial encounter Status: Acute (4) Hypertension ICD Code: I10 - Essential (primary) hypertension Status: Acute (5) Pelvic fracture ICD Code: S32.9XXA - Fracture of unspecified parts of lumbosacral spine and pelvis, initial encounter for closed fracture Status: Acute (6) C1-C2 subluxation ICD Code: S13.120A - Subluxation of C1/C2 cervical vertebrae, initial encounter Status: Acute (7) C6 cervical fracture ICD Code: S12.500A - Unspecified displaced fracture of sixth cervical vertebra , initial encounter for closed fracture Status: Acute (8) Traumatic brain injury ICD Code: S06.9X9A - Unspecified intracranial injury with loss of consciousness of unspecified duration, initial encounter Status: Acute (9) Nasal fracture ICD Code: S02.2XXA - Fracture of nasal bones, initial encounter for closed fracture Status: Acute (10) Mild neurocognitive disorder ICD Code: G31.84 - Mild cognitive impairment, so stated Status: Acute (11) Intracranial bleed ICD Code: I62.9 - Nontraumatic intracranial hemorrhage, unspecified Status: Acute Assessment and Plan Inability to care for self, unsafe discharge due to cognition Initially he was indicated patient cannot walk, patient is walking at this time, PT and OT recommending supervision at home for safety Speech therapy following the patient intermittently for cognitive evaluations. 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 MIni mental state 28/30, recommended avoid antipsychotics and benzodiazepine. Recommending Depakote or carbamazepine Patient is medically stable for discharge, however due to underlying psychiatric/cognition patient is unsafe discharge until arrangements made by case management Case management for discharge planning Neuropsychiatry evaluated the patient recommended patient may improve with treatment, however indicates avoid benzodiazepines and antipsychotics Continue Prozac 40 mg daily Depakene 500 mg twice daily Seroquel 100 mg twice daily *Discussed with psychiatry again about patient's cognition issues. He indicated that the patient lacks capacity for signing AMA or to participate in discharge plan. He is recommending that he would invite the ethics committee to the hospital to have a discussion about patient care *Consulted case management for ethics committee review, awaiting response Recurrent falls Patient moved close to nursing station Patient denies any neurological symptoms of weakness, paresthesia, loss of bowel or bladder control Orthostatic vitals do show drop in systolic blood pressure when standing. Improved after hydration Status post 2 L normal saline and continue monitor orthostatic vitals MRI of the neck. Multilevel degenerative changes. Mild degree of canal stenosis C5-C6, anterior fusion C6-C7 MRI of thoracic and lumbar spine do not indicate any acute abnormality Carotid ultrasound was unremarkable Echocardiogram indicate ejection fraction 50-55% without any abnormalities Physical therapy ordered for 5 days a week Multiple traumatic injuries Patient laceration, subdural hemorrhage, ventricular hemorrhage, nasal fracture, C6 fracture, C1-C2 subluxation, C4 transverse process fracture, right rib fracture, L1 transverse process fracture, right pubic rami fracture Continue c-collar this time, however patient does not wear Follow-up cervical spine CT indicates no evidence of acute fracture. Postsurgical changes Specialist no longer following patient, patient will require outpatient follow-up if discharge Right breast abscess, Improved. Physical exam shows improvement. Ultrasound does show complex loculated collection measuring 2.4 x 1.7 x 1.8 cm. Representing breast abscess Status post Augmentin 500 mg twice daily for 10 days (end date 10/25/17). Finished Bactrim DS for 18 days Gen. surgery consulted who recommends no intervention at this time. Soft tissue ultrasound shows a improvement of the fluid collection. Hypothyroidism TSH 5.11 Free T4 0.57, free T3 1 0.47 Levothyroxine 25 g daily Monitor TSH every 6-8 weeks Hypertension Amlodipine 10 mg daily DVT prevention Patient ambulating Sequential compression devices while in bed Records were reviewed. Awaiting case management for discharge planning, No change in current treatment plan. Discharge Planning Due to underlying psychiatric/cognition patient is unsafe discharge until arrangements made by case management. Problem Qualifiers (1) Hypertension: Qualified Codes: I10 - Essential (primary) hypertension Alyssa Means Dec 15, 2017 15:18
[2017-12-15 20:00] VITALS: BP 142/97; PULSE 64; RESP 16; TEMP 96.7; O2SAT 94
[2017-12-15] MEDS: ACETAMINOPHEN 325 MG TAB PO PRN (21:24)
[2017-12-16] MEDS: LEVOTHYROXINE SODIUM 25 MCG TAB PO SCH (05:54)
--- NOTE | 2017-12-16 08:55 | HHI.PR ---
Subjective Remarks Follow-up unsafe discharge due to cognition. Patient seen and examined, sitting up in bed comfortably. Sitter is at bedside. Patient states she feels overall tired again. Continued weakness. Spoke with PT states that she has been progressively getting more weak. It has been reported that patient has poor nutrition, that she eats roughly only blueberry muffins all day. Dietitian requested to see patient. Encouraged patient to eat a variety of foods. Supplement ordered for each tray. Labs ordered. Objective Vitals Vital Signs Date Time Temp Pulse Resp B/P (MAP) Pulse Ox O2 Delivery O2 Flow Rate FiO2 12/15/17 20:00 96.7 64 16 142/97 (112) 94 12/15/17 13:24 96.7 69 16 127/87 (100) 94 I/O 12/15/17 12/15/17 12/15/17 12/16/17 12/16/17 12/16/17 07:00 15:00 23:00 07:00 15:00 23:00 Intake Total 420 ml 500 ml 360 ml Output Total 300 ml Balance 420 ml 500 ml 60 ml Intake Oral 420 ml 500 ml 360 ml Output Urine Total 300 ml # Voids 2 3 # Bowel Movements 1 Imaging Last Impressions Thoracic Spine MRI 12/01/17 0000 Signed Impressions: Service Date/Time: Friday, December 01, 2017 15:10 - CONCLUSION: Negative for acute process. Vimal Taylor MD FACR Lumbar Spine MRI 12/01/17 0000 Signed Impressions: Service Date/Time: Friday, December 01, 2017 15:10 - CONCLUSION: Negative MRI of the lumbar spine. Vimal Taylor MD FACR Carotid Artery Ultrasound 11/30/17 0000 Signed Impressions: Service Date/Time: Thursday, November 30, 2017 14:34 - CONCLUSION: 1. Mild plaque with no hemodynamically significant stenosis. Vertebral artery flow antegrade. Fadi Carolina MD Cervical Spine MRI 11/28/17 0000 Signed Impressions: Service Date/Time: Tuesday, November 28, 2017 15:10 - CONCLUSION: 1. Multilevel posterior disc osteophyte complexes as described above. 2. Anterior fusion C6- 7. Dylon Haddad MD Knee X-Ray 11/02/17 0000 Signed Impressions: Service Date/Time: Thursday, November 02, 2017 18:51 - CONCLUSION: Intact right knee. Jovany Hayes MD Head CT 11/02/17 0000 Signed Impressions: Service Date/Time: Thursday, November 02, 2017 18:35 - CONCLUSION: 1. No bleed or other acute intracranial abnormality. 2. Previously seen intracranial hemorrhage has resolved. A small area of chronic encephalomalacia has developed of the right frontal lobe. 3. Chronic periventricular white matter changes are again noted. Jovany Hayes MD Breast Ultrasound 10/15/17 0000 Signed Impressions: Service Date/Time: Sunday, October 15, 2017 09:06 - CONCLUSION: Persistent subcutaneous collection at the 12:00 position of the right breast. It has slightly decreased in size since the study dated 09/23/2017 and could represent an infectious process. Consider followup to confirm resolution. Jovany Quezada MD Chest X-Ray 09/03/17 0000 Signed Impressions: Service Date/Time: Sunday, September 03, 2017 17:02 - CONCLUSION: 1. Mild edema pattern. Subsegmental basilar airspace disease most characteristic of atelectasis.. Fadi Carolina MD Cervical Spine CT 09/02/17 0000 Signed Impressions: Service Date/Time: August 12:56 - CONCLUSION: Postsurgical changes from anterior cervical plate at C6-7. No evidence of compression deformity or spondylolisthesis. Arun Regan MD Pelvis X-Ray 06/30/17 0000 Signed Impressions: Service Date/Time: Friday, June 30, 2017 12:17 - CONCLUSION: No significant change has occurred. Carlos Capps MD Objective Remarks GENERAL: Well-nourished, well-developed female in NAD. SKIN: Warm and dry. No rash. Right breast abscess improved. HEENT: Normocephalic. Atraumatic. Pupils equal and round. No scleral icterus. No injection or drainage. No nasal bleeding or discharge. Mucous membranes pink and moist. NECK: Supple. Trachea midline. CARDIOVASCULAR: Regular rate and rhythm. S1, S2 noted. No murmur appreciated. RESPIRATORY: No accessory muscle use. Clear to auscultation. Breath sounds equal bilaterally. GASTROINTESTINAL: Abdomen soft, non-tender, nondistended. Normoactive bowel sounds x4. No guarding noted. MUSCULOSKELETAL: No obvious deformities. Extremities without clubbing, cyanosis , or edema. NEUROLOGICAL: Awake and alert. No obvious cranial nerve deficits. Motor grossly within normal limits. 5/5 muscle strength in bilateral upper and lower extremities. Normal speech. PSYCHIATRIC: Appropriate mood and affect. A/P Problem List: (1) Alcohol dependence in controlled environment ICD Code: F10.20 - Alcohol dependence, uncomplicated Status: Chronic (2) Facial injury ICD Code: S09.93XA - Unspecified injury of face, initial encounter Status: Acute (3) Fall ICD Code: W19.XXXA - Unspecified fall, initial encounter Status: Acute (4) Hypertension ICD Code: I10 - Essential (primary) hypertension Status: Acute (5) Pelvic fracture ICD Code: S32.9XXA - Fracture of unspecified parts of lumbosacral spine and pelvis, initial encounter for closed fracture Status: Acute (6) C1-C2 subluxation ICD Code: S13.120A - Subluxation of C1/C2 cervical vertebrae, initial encounter Status: Acute (7) C6 cervical fracture ICD Code: S12.500A - Unspecified displaced fracture of sixth cervical vertebra , initial encounter for closed fracture Status: Acute (8) Traumatic brain injury ICD Code: S06.9X9A - Unspecified intracranial injury with loss of consciousness of unspecified duration, initial encounter Status: Acute (9) Nasal fracture ICD Code: S02.2XXA - Fracture of nasal bones, initial encounter for closed fracture Status: Acute (10) Mild neurocognitive disorder ICD Code: G31.84 - Mild cognitive impairment, so stated Status: Acute (11) Intracranial bleed ICD Code: I62.9 - Nontraumatic intracranial hemorrhage, unspecified Status: Acute Assessment and Plan Inability to care for self, unsafe discharge due to cognition Initially he was indicated patient cannot walk, patient is walking at this time, PT and OT recommending supervision at home for safety Speech therapy following the patient intermittently for cognitive evaluations. 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 MIni mental state 28/30, recommended avoid antipsychotics and benzodiazepine. Recommending Depakote or carbamazepine Patient is medically stable for discharge, however due to underlying psychiatric/cognition patient is unsafe discharge until arrangements made by case management Case management for discharge planning Neuropsychiatry evaluated the patient recommended patient may improve with treatment, however indicates avoid benzodiazepines and antipsychotics Continue Prozac 40 mg daily Depakene 500 mg twice daily Seroquel 100 mg twice daily *Discussed with psychiatry again about patient's cognition issues. He indicated that the patient lacks capacity for signing AMA or to participate in discharge plan. He is recommending that he would invite the ethics committee to the hospital to have a discussion about patient care *Consulted case management for ethics committee review, awaiting response Recurrent falls Patient moved close to nursing station Patient denies any neurological symptoms of weakness, paresthesia, loss of bowel or bladder control Orthostatic vitals do show drop in systolic blood pressure when standing. Improved after hydration Status post 2 L normal saline and continue monitor orthostatic vitals MRI of the neck. Multilevel degenerative changes. Mild degree of canal stenosis C5-C6, anterior fusion C6-C7 MRI of thoracic and lumbar spine do not indicate any acute abnormality Carotid ultrasound was unremarkable Echocardiogram indicate ejection fraction 50-55% without any abnormalities Physical therapy ordered for 5 days a week Malnutrition, moderate: Dietitian consulted, appreciate input recommendations. Labs ordered including vitamin B12, thirteen, albumin and prealbumin. Pending and follow. Continue PT. Multiple traumatic injuries Patient laceration, subdural hemorrhage, ventricular hemorrhage, nasal fracture, C6 fracture, C1-C2 subluxation, C4 transverse process fracture, right rib fracture, L1 transverse process fracture, right pubic rami fracture Continue c-collar this time, however patient does not wear Follow-up cervical spine CT indicates no evidence of acute fracture. Postsurgical changes Specialist no longer following patient, patient will require outpatient follow-up if discharge Right breast abscess, Improved. Physical exam shows improvement. Ultrasound does show complex loculated collection measuring 2.4 x 1.7 x 1.8 cm. Representing breast abscess Status post Augmentin 500 mg twice daily for 10 days (end date 10/25/17). Finished Bactrim DS for 18 days Gen. surgery consulted who recommends no intervention at this time. Soft tissue ultrasound shows a improvement of the fluid collection. Hypothyroidism TSH 5.11 Free T4 0.57, free T3 1 0.47 Levothyroxine 25 g daily Monitor TSH every 6-8 weeks Hypertension Amlodipine 10 mg daily DVT prevention Patient ambulating Sequential compression devices while in bed Records were reviewed. Awaiting case management for discharge planning, No change in current treatment plan. Discharge Planning Due to underlying psychiatric/cognition patient is unsafe discharge until arrangements made by case management. Problem Qualifiers (1) Hypertension: Qualified Codes: I10 - Essential (primary) hypertension Alyssa Means Dec 16, 2017 08:55
[2017-12-16 09:09] VITALS: BP 152/89; PULSE 72; RESP 16; TEMP 96.2; O2SAT 93
[2017-12-16] MEDS: QUEtiapine FUMARATE 100 MG TAB PO SCH ×2 (09:59→21:27)
[2017-12-16] MEDS: VALPROIC ACID 250 MG CAP PO SCH ×2 (09:59→21:26)
[2017-12-16] MEDS: FLUoxetine HCL 20 MG CAP PO SCH (09:59)
[2017-12-16 11:30] LABS: ALBUMIN 3.1 GM/DL (3.4-5.0)
[2017-12-16 11:36] LABS: TOTAL PROTEIN 6.8 GM/DL (6.4-8.2)
[2017-12-16 17:00] VITALS: BP 127/77; PULSE 74; RESP 15; TEMP 97.4; O2SAT 92
[2017-12-16 20:00] VITALS: BP 139/79; PULSE 73; RESP 16; TEMP 98.3; O2SAT 98
--- NOTE | 2017-12-16 20:21 | RADRPT ---
EXAM DATE/TIME: 12/16/2017 19:51 [facility] COMPARISON: CHEST SINGLE AP, September 03, 2017, 17:02. INDICATIONS : Pain in left clavicle after fall today. MEDICAL HISTORY : Hypertension. SURGICAL HISTORY : Fusion, cervical. ENCOUNTER: Initial ACUITY: 1 day PAIN SCORE: 5/10 LOCATION: Left clavicle. FINDINGS: There is a nonacute fracture of the distal shaft of the left clavicle. A don't see an acute fracture of the left shoulder. No subluxations. Radiographic appearance of the soft tissues within normal limi ts. CONCLUSION: Distal clavicle is fractured but this appears nonacute. No acute fracture demonstrated. Jovany Hayes MD on December 16, 2017 at 20:18 Board Certified Radiologist. This report was verified electronically.
[2017-12-16 20:41] LABS: AUTOMATED NEUTROPHIL # 4.1 TH/MM3 (1.8-7.7); BASOPHIL # 0.1 TH/MM3 (0-0.2); BASOPHIL % 0.9 % (0.0-2.0); EOSINOPHIL # 0.1 TH/MM3 (0-0.4); EOSINOPHIL % 1.1 % (0.0-4.0); HEMATOCRIT 35.6 % (35.0-46.0); HEMOGLOBIN 11.5 GM/DL (11.6-15.3); LYMPH % 23.6 % (9.0-44.0); LYMPHOCYTE # 1.4 TH/MM3 (1.0-4.8); MEAN CELL VOLUME 96.7 FL (80.0-100.0); MEAN CORPUSCULAR HEMOGLOBIN 31.3 PG (27.0-34.0); MEAN CORPUSCULAR HGB CONC 32.3 % (32.0-36.0); MEAN PLATELET VOLUME 6.2 FL (7.0-11.0); MONO % 7.2 % (0.0-8.0); MONOCYTE # 0.4 TH/MM3 (0-0.9); NEUT % 67.2 % (16.0-70.0); PLATELET COUNT 204 TH/MM3 (150-450); RED BLOOD COUNT 3.68 MIL/MM3 (4.00-5.30); RED CELL DISTRIBUTION WIDTH 13.8 % (11.6-17.2); WHITE BLOOD COUNT 6.1 TH/MM3 (4.0-11.0)
[2017-12-16 20:56] LABS: CHLORIDE 101 MEQ/L (98-107); SODIUM (NA) 137 MEQ/L (136-145)
[2017-12-16 20:59] LABS: CALCIUM 8.6 MG/DL (8.5-10.1)
[2017-12-16 21:00] LABS: ALBUMIN 2.8 GM/DL (3.4-5.0); BICARBONATE 30.5 MEQ/L (21.0-32.0); BLOOD UREA NITROGEN 14 MG/DL (7-18); GLUCOSE,RANDOM 125 MG/DL (74-106)
[2017-12-16 21:03] LABS: ALT (GPT) LESS THAN 6 U/L (10-53); AST (GOT) 7 U/L (15-37); CREATININE 0.92 MG/DL (0.50-1.00); GLOMERULAR FILTRATION RATE 63 ML/MIN (>89)
[2017-12-16 21:04] LABS: TOTAL BILIRUBIN ADULT 0.3 MG/DL (0.2-1.0); TOTAL PROTEIN 6.2 GM/DL (6.4-8.2)
[2017-12-16 21:06] LABS: ALKALINE PHOSPHATASE 66 U/L (45-117)
[2017-12-16] MEDS: MIRTAZAPINE 15 MG TAB PO SCH (21:29)
[2017-12-16] MEDS: ACETAMINOPHEN 325 MG TAB PO PRN (21:30)
[2017-12-17] VITALS: BP 117/77; PULSE 67; RESP 16; TEMP 97.5; O2SAT 93
[2017-12-17] MEDS: LEVOTHYROXINE SODIUM 25 MCG TAB PO SCH (05:50)
--- NOTE | 2017-12-17 07:46 | HHI.PR ---
Subjective Remarks Follow-up unsafe discharge due to cognition and multiple falls. Patient seen and examined, lying in bed comfortably in no apparent distress. Patient denies any pain. Patient is status post fall last evening, it was reported that her knees buckled again. Denies hitting her head. Denies any loss of consciousness. Clavicle x-ray was done, negative for any acute fractures. Vital signs are stable. Encourage patient to increase protein in her diet and dietitian has seen patient today. Appreciate recommendations. Objective Vitals Vital Signs Date Time Temp Pulse Resp B/P (MAP) Pulse Ox O2 Delivery O2 Flow Rate FiO2 12/17/17 00:00 97.5 67 16 117/77 (90) 93 12/16/17 20:00 98.3 73 16 139/79 (99) 98 12/16/17 17:00 97.4 74 15 127/77 (94) 92 12/16/17 09:09 96.2 72 16 152/89 (110) 93 I/O 12/16/17 12/16/17 12/16/17 12/17/17 12/17/17 12/17/17 07:00 15:00 23:00 07:00 15:00 23:00 Intake Total 360 ml 700 ml 480 ml Output Total 300 ml Balance 60 ml 700 ml 480 ml Intake Oral 360 ml 700 ml 480 ml Output Urine Total 300 ml # Voids 3 3 # Bowel Movements 0 Result Diagram: 12/16/17202912/16/172029 Imaging Last Impressions Clavicle X-Ray 12/16/17 0000 Signed Impressions: Service Date/Time: December 19:51 - CONCLUSION: Distal clavicle is fractured but this appears nonacute. No acute fracture demonstrated. Jovany Hayes MD Thoracic Spine MRI 12/01/17 0000 Signed Impressions: Service Date/Time: Friday, December 01, 2017 15:10 - CONCLUSION: Negative for acute process. Vimal Taylor MD FACR Lumbar Spine MRI 12/01/17 0000 Signed Impressions: Service Date/Time: Friday, December 01, 2017 15:10 - CONCLUSION: Negative MRI of the lumbar spine. Vimal Taylor MD FACR Carotid Artery Ultrasound 11/30/17 0000 Signed Impressions: Service Date/Time: Thursday, November 30, 2017 14:34 - CONCLUSION: 1. Mild plaque with no hemodynamically significant stenosis. Vertebral artery flow antegrade. Fadi Carolina MD Cervical Spine MRI 11/28/17 0000 Signed Impressions: Service Date/Time: Tuesday, November 28, 2017 15:10 - CONCLUSION: 1. Multilevel posterior disc osteophyte complexes as described above. 2. Anterior fusion C6- 7. Dylon Haddad MD Knee X-Ray 11/02/17 0000 Signed Impressions: Service Date/Time: Thursday, November 02, 2017 18:51 - CONCLUSION: Intact right knee. Jovany Hayes MD Head CT 11/02/17 0000 Signed Impressions: Service Date/Time: Thursday, November 02, 2017 18:35 - CONCLUSION: 1. No bleed or other acute intracranial abnormality. 2. Previously seen intracranial hemorrhage has resolved. A small area of chronic encephalomalacia has developed of the right frontal lobe. 3. Chronic periventricular white matter changes are again noted. Jovany Hayes MD Breast Ultrasound 10/15/17 0000 Signed Impressions: Service Date/Time: Sunday, October 15, 2017 09:06 - CONCLUSION: Persistent subcutaneous collection at the 12:00 position of the right breast. It has slightly decreased in size since the study dated 09/23/2017 and could represent an infectious process. Consider followup to confirm resolution. Jovany Quezada MD Chest X-Ray 09/03/17 0000 Signed Impressions: Service Date/Time: Sunday, September 03, 2017 17:02 - CONCLUSION: 1. Mild edema pattern. Subsegmental basilar airspace disease most characteristic of atelectasis.. Fadi Carolina MD Cervical Spine CT 09/02/17 0000 Signed Impressions: Service Date/Time: August 12:56 - CONCLUSION: Postsurgical changes from anterior cervical plate at C6-7. No evidence of compression deformity or spondylolisthesis. Arun Regan MD Pelvis X-Ray 06/30/17 0000 Signed Impressions: Service Date/Time: Friday, June 30, 2017 12:17 - CONCLUSION: No significant change has occurred. Carlos Capps MD Objective Remarks GENERAL: Well-nourished, well-developed female in NAD. SKIN: Warm and dry. No rash. Right breast abscess improved. HEENT: Normocephalic. Atraumatic. Pupils equal and round. No scleral icterus. No injection or drainage. No nasal bleeding or discharge. Mucous membranes pink and moist. NECK: Supple. Trachea midline. CARDIOVASCULAR: Regular rate and rhythm. S1, S2 noted. No murmur appreciated. RESPIRATORY: No accessory muscle use. Clear to auscultation. Breath sounds equal bilaterally. GASTROINTESTINAL: Abdomen soft, non-tender, nondistended. Normoactive bowel sounds x4. No guarding noted. MUSCULOSKELETAL: No obvious deformities. Extremities without clubbing, cyanosis , or edema. NEUROLOGICAL: Awake and alert. No obvious cranial nerve deficits. Motor grossly within normal limits. 5/5 muscle strength in bilateral upper and lower extremities. Normal speech. PSYCHIATRIC: Appropriate mood and affect. A/P Problem List: (1) Alcohol dependence in controlled environment ICD Code: F10.20 - Alcohol dependence, uncomplicated Status: Chronic (2) Facial injury ICD Code: S09.93XA - Unspecified injury of face, initial encounter Status: Acute (3) Fall ICD Code: W19.XXXA - Unspecified fall, initial encounter Status: Acute (4) Hypertension ICD Code: I10 - Essential (primary) hypertension Status: Acute (5) Pelvic fracture ICD Code: S32.9XXA - Fracture of unspecified parts of lumbosacral spine and pelvis, initial encounter for closed fracture Status: Acute (6) C1-C2 subluxation ICD Code: S13.120A - Subluxation of C1/C2 cervical vertebrae, initial encounter Status: Acute (7) C6 cervical fracture ICD Code: S12.500A - Unspecified displaced fracture of sixth cervical vertebra , initial encounter for closed fracture Status: Acute (8) Traumatic brain injury ICD Code: S06.9X9A - Unspecified intracranial injury with loss of consciousness of unspecified duration, initial encounter Status: Acute (9) Nasal fracture ICD Code: S02.2XXA - Fracture of nasal bones, initial encounter for closed fracture Status: Acute (10) Mild neurocognitive disorder ICD Code: G31.84 - Mild cognitive impairment, so stated Status: Acute (11) Intracranial bleed ICD Code: I62.9 - Nontraumatic intracranial hemorrhage, unspecified Status: Acute Assessment and Plan Inability to care for self, unsafe discharge due to cognition Initially he was indicated patient cannot walk, patient is walking at this time, PT and OT recommending supervision at home for safety Speech therapy following the patient intermittently for cognitive evaluations. 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 MIni mental state 28/30, recommended avoid antipsychotics and benzodiazepine. Recommending Depakote or carbamazepine Patient is medically stable for discharge, however due to underlying psychiatric/cognition patient is unsafe discharge until arrangements made by case management Case management for discharge planning Neuropsychiatry evaluated the patient recommended patient may improve with treatment, however indicates avoid benzodiazepines and antipsychotics Continue Prozac 40 mg daily Depakene 500 mg twice daily Seroquel 100 mg twice daily *Discussed with psychiatry again about patient's cognition issues. He indicated that the patient lacks capacity for signing AMA or to participate in discharge plan. He is recommending that he would invite the ethics committee to the hospital to have a discussion about patient care *Consulted case management for ethics committee review, awaiting response Recurrent falls Patient moved close to nursing station Patient denies any neurological symptoms of weakness, paresthesia, loss of bowel or bladder control Orthostatic vitals do show drop in systolic blood pressure when standing. Improved after hydration Status post 2 L normal saline and continue monitor orthostatic vitals MRI of the neck. Multilevel degenerative changes. Mild degree of canal stenosis C5-C6, anterior fusion C6-C7 MRI of thoracic and lumbar spine do not indicate any acute abnormality Carotid ultrasound was unremarkable Echocardiogram indicate ejection fraction 50-55% without any abnormalities Physical therapy ordered for 5 days a week Malnutrition, moderate: Dietitian consulted and has seen patient, appreciate input recommendations. Ativan multivitamin. Attempting Remeron for increasing appetite. Continue to monitor response. Vitamin B-12 normal. Albumin low. Prealbumin 19. Continue PT. Order for patient to go to cafeteria daily RN as able. Multiple traumatic injuries Patient laceration, subdural hemorrhage, ventricular hemorrhage, nasal fracture, C6 fracture, C1-C2 subluxation, C4 transverse process fracture, right rib fracture, L1 transverse process fracture, right pubic rami fracture Continue c-collar this time, however patient does not wear Follow-up cervical spine CT 1026/17 indicates no evidence of acute fracture. Postsurgical changes Specialist no longer following patient, patient will require outpatient follow-up if discharge Right breast abscess, Improved. Physical exam shows improvement. Ultrasound does show complex loculated collection measuring 2.4 x 1.7 x 1.8 cm. Representing breast abscess Status post Augmentin 500 mg twice daily for 10 days (end date 10/25/17). Finished Bactrim DS for 18 days Gen. surgery consulted who recommends no intervention at this time. Soft tissue ultrasound shows a improvement of the fluid collection. Hypothyroidism TSH 5.11 Free T4 0.57, free T3 1 0.47 Levothyroxine 25 g daily Monitor TSH every 6-8 weeks Hypertension Amlodipine 10 mg daily DVT prevention Patient ambulating Sequential compression devices while in bed Records were reviewed. Awaiting case management for discharge planning, No change in current treatment plan. Discharge Planning Due to underlying psychiatric/cognition patient is unsafe discharge until arrangements made by case management. Problem Qualifiers (1) Hypertension: Qualified Codes: I10 - Essential (primary) hypertension Alyssa Means Dec 17, 2017 07:46
[2017-12-17 08:00] VITALS: BP 143/82; PULSE 59; RESP 19; TEMP 96.5; O2SAT 96
[2017-12-17] MEDS: ERGOCALCIFEROL (VIT D2) 50,000 UNIT CAP PO SCH (09:50)
[2017-12-17] MEDS: FLUoxetine HCL 20 MG CAP PO SCH (09:50)
[2017-12-17] MEDS: QUEtiapine FUMARATE 100 MG TAB PO SCH ×2 (09:50→20:16)
[2017-12-17] MEDS: VALPROIC ACID 250 MG CAP PO SCH ×2 (09:51→20:16)
[2017-12-17 12:00] VITALS: BP 139/83; PULSE 68; RESP 18; TEMP 96.6; O2SAT 94
[2017-12-17 16:00] VITALS: BP 128/84; PULSE 69; RESP 18; TEMP 96.2; O2SAT 95
[2017-12-17] MEDS: ACETAMINOPHEN 325 MG TAB PO PRN (18:20)
[2017-12-17 20:00] VITALS: BP 173/98; PULSE 67; RESP 18; TEMP 96.4; O2SAT 95
[2017-12-17] MEDS: MIRTAZAPINE 15 MG TAB PO SCH (20:15)
[2017-12-18] MEDS: LEVOTHYROXINE SODIUM 25 MCG TAB PO SCH (05:50)
[2017-12-18 08:00] VITALS: BP 160/98; PULSE 67; RESP 16; TEMP 96.1; O2SAT 94
[2017-12-18] MEDS: VALPROIC ACID 250 MG CAP PO SCH ×2 (08:25→20:52)
[2017-12-18] MEDS: QUEtiapine FUMARATE 100 MG TAB PO SCH ×2 (08:25→20:52)
[2017-12-18] MEDS: MULTIVITAMIN TAB PO SCH (08:25)
[2017-12-18] MEDS: FLUoxetine HCL 20 MG CAP PO SCH (08:25)
[2017-12-18] MEDS ORDERED: NAPROXEN 500 MG TAB PO ONE (11:00)
--- NOTE | 2017-12-18 11:03 | HHI.PR ---
Subjective Remarks Follow-up unsafe discharge due to cognition and frequent falls and malnutrition. Patient seen and examined lying in bed comfortably, no acute events overnight. No falls over night. Sitter at bedside. Patient still says that she feels really tired. Has been eating much more. Does complain of left shoulder plan. Vital signs are stable. Objective Vitals Vital Signs Date Time Temp Pulse Resp B/P (MAP) Pulse Ox O2 Delivery O2 Flow Rate FiO2 12/18/17 08:00 96.1 67 16 160/98 (118) 94 12/17/17 20:00 96.4 67 18 173/98 (123) 95 12/17/17 16:00 96.2 69 18 128/84 (99) 95 12/17/17 12:00 96.6 68 18 139/83 (101) 94 I/O 12/17/17 12/17/17 12/17/17 12/18/17 12/18/17 12/18/17 07:00 15:00 23:00 07:00 15:00 23:00 Intake Total 480 ml 360 ml 280 ml Balance 480 ml 360 ml 280 ml Intake Oral 480 ml 360 ml 280 ml # Voids 3 3 2 # Bowel Movements 0 0 Result Diagram: 12/16/17202912/16/172029 Imaging Last Impressions Clavicle X-Ray 12/16/17 0000 Signed Impressions: Service Date/Time: December 19:51 - CONCLUSION: Distal clavicle is fractured but this appears nonacute. No acute fracture demonstrated. Jovany Hayes MD Thoracic Spine MRI 12/01/17 0000 Signed Impressions: Service Date/Time: Friday, December 01, 2017 15:10 - CONCLUSION: Negative for acute process. Vimal Taylor MD FACR Lumbar Spine MRI 12/01/17 0000 Signed Impressions: Service Date/Time: Friday, December 01, 2017 15:10 - CONCLUSION: Negative MRI of the lumbar spine. Vimal Taylor MD FACR Carotid Artery Ultrasound 11/30/17 0000 Signed Impressions: Service Date/Time: Thursday, November 30, 2017 14:34 - CONCLUSION: 1. Mild plaque with no hemodynamically significant stenosis. Vertebral artery flow antegrade. Fadi Carolina MD Cervical Spine MRI 11/28/17 0000 Signed Impressions: Service Date/Time: Tuesday, November 28, 2017 15:10 - CONCLUSION: 1. Multilevel posterior disc osteophyte complexes as described above. 2. Anterior fusion C6- 7. Dylon Haddad MD Knee X-Ray 11/02/17 0000 Signed Impressions: Service Date/Time: Thursday, November 02, 2017 18:51 - CONCLUSION: Intact right knee. Jovany Hayes MD Head CT 11/02/17 0000 Signed Impressions: Service Date/Time: Thursday, November 02, 2017 18:35 - CONCLUSION: 1. No bleed or other acute intracranial abnormality. 2. Previously seen intracranial hemorrhage has resolved. A small area of chronic encephalomalacia has developed of the right frontal lobe. 3. Chronic periventricular white matter changes are again noted. Jovany Hayes MD Breast Ultrasound 10/15/17 0000 Signed Impressions: Service Date/Time: Sunday, October 15, 2017 09:06 - CONCLUSION: Persistent subcutaneous collection at the 12:00 position of the right breast. It has slightly decreased in size since the study dated 09/23/2017 and could represent an infectious process. Consider followup to confirm resolution. Jovany Quezada MD Chest X-Ray 09/03/17 0000 Signed Impressions: Service Date/Time: Sunday, September 03, 2017 17:02 - CONCLUSION: 1. Mild edema pattern. Subsegmental basilar airspace disease most characteristic of atelectasis.. Fadi Carolina MD Cervical Spine CT 09/02/17 0000 Signed Impressions: Service Date/Time: August 12:56 - CONCLUSION: Postsurgical changes from anterior cervical plate at C6-7. No evidence of compression deformity or spondylolisthesis. Arun Regan MD Pelvis X-Ray 06/30/17 0000 Signed Impressions: Service Date/Time: Friday, June 30, 2017 12:17 - CONCLUSION: No significant change has occurred. Carlos Capps MD Objective Remarks GENERAL: Well-nourished, well-developed female in NAD. SKIN: Warm and dry. No rash. Right breast abscess improved. HEENT: Normocephalic. Atraumatic. Pupils equal and round. No scleral icterus. No injection or drainage. No nasal bleeding or discharge. Mucous membranes pink and moist. NECK: Supple. Trachea midline. CARDIOVASCULAR: Regular rate and rhythm. S1, S2 noted. No murmur appreciated. RESPIRATORY: No accessory muscle use. Clear to auscultation. Breath sounds equal bilaterally. GASTROINTESTINAL: Abdomen soft, non-tender, nondistended. Normoactive bowel sounds x4. No guarding noted. MUSCULOSKELETAL: No obvious deformities. Extremities without clubbing, cyanosis , or edema. NEUROLOGICAL: Awake and alert. No obvious cranial nerve deficits. Motor grossly within normal limits. 5/5 muscle strength in bilateral upper and lower extremities. Normal speech. PSYCHIATRIC: Appropriate mood and affect. A/P Problem List: (1) Alcohol dependence in controlled environment ICD Code: F10.20 - Alcohol dependence, uncomplicated Status: Chronic (2) Facial injury ICD Code: S09.93XA - Unspecified injury of face, initial encounter Status: Acute (3) Fall ICD Code: W19.XXXA - Unspecified fall, initial encounter Status: Acute (4) Hypertension ICD Code: I10 - Essential (primary) hypertension Status: Acute (5) Pelvic fracture ICD Code: S32.9XXA - Fracture of unspecified parts of lumbosacral spine and pelvis, initial encounter for closed fracture Status: Acute (6) C1-C2 subluxation ICD Code: S13.120A - Subluxation of C1/C2 cervical vertebrae, initial encounter Status: Acute (7) C6 cervical fracture ICD Code: S12.500A - Unspecified displaced fracture of sixth cervical vertebra , initial encounter for closed fracture Status: Acute (8) Traumatic brain injury ICD Code: S06.9X9A - Unspecified intracranial injury with loss of consciousness of unspecified duration, initial encounter Status: Acute (9) Nasal fracture ICD Code: S02.2XXA - Fracture of nasal bones, initial encounter for closed fracture Status: Acute (10) Mild neurocognitive disorder ICD Code: G31.84 - Mild cognitive impairment, so stated Status: Acute (11) Intracranial bleed ICD Code: I62.9 - Nontraumatic intracranial hemorrhage, unspecified Status: Acute Assessment and Plan Inability to care for self, unsafe discharge due to cognition Initially was indicated patient cannot walk, patient is walking at this time , PT and OT recommending supervision at home for safety Speech therapy following the patient intermittently for cognitive evaluations. 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 MIni mental state 28/30, recommended avoid antipsychotics and benzodiazepine. Recommending Depakote or carbamazepine Patient is medically stable for discharge, however due to underlying psychiatric/cognition patient is unsafe discharge until arrangements made by case management Case management for discharge planning Neuropsychiatry evaluated the patient recommended patient may improve with treatment, however indicates avoid benzodiazepines and antipsychotics Continue Prozac 40 mg daily Depakene 500 mg twice daily Seroquel 100 mg twice daily *Discussed with psychiatry again about patient's cognition issues. He indicated that the patient lacks capacity for signing AMA or to participate in discharge plan. He is recommending that he would invite the ethics committee to the hospital to have a discussion about patient care *Consulted case management for ethics committee review, awaiting response Recurrent falls Patient moved close to nursing station Patient denies any neurological symptoms of weakness, paresthesia, loss of bowel or bladder control Orthostatic vitals do show drop in systolic blood pressure when standing. Improved after hydration Status post 2 L normal saline and continue monitor orthostatic vitals MRI of the neck. Multilevel degenerative changes. Mild degree of canal stenosis C5-C6, anterior fusion C6-C7 MRI of thoracic and lumbar spine do not indicate any acute abnormality Carotid ultrasound was unremarkable Echocardiogram indicate ejection fraction 50-55% without any abnormalities Physical therapy ordered for 5 days a week Left shoulder pain suspect secondary to fall: Given naproxen. Malnutrition, moderate: Dietitian consulted and has seen patient, appreciate input recommendations. Added multivitamin. Attempting Remeron for increasing appetite. Continue to monitor response. Vitamin B-12 normal. Albumin low. Prealbumin 19. Checking vitamin D level, follow. Started on supplementation. Continue PT. Order for patient to go to cafeteria daily RN as able. Multiple traumatic injuries Patient laceration, subdural hemorrhage, ventricular hemorrhage, nasal fracture, C6 fracture, C1-C2 subluxation, C4 transverse process fracture, right rib fracture, L1 transverse process fracture, right pubic rami fracture Continue c-collar this time, however patient does not wear Follow-up cervical spine CT indicates no evidence of acute fracture. Postsurgical changes Specialist no longer following patient, patient will require outpatient follow-up if discharge Right breast abscess, Improved. Physical exam shows improvement. Ultrasound does show complex loculated collection measuring 2.4 x 1.7 x 1.8 cm. Representing breast abscess Status post Augmentin 500 mg twice daily for 10 days (end date 10/25/17). Finished Bactrim DS for 18 days Gen. surgery consulted who recommends no intervention at this time. Soft tissue ultrasound shows a improvement of the fluid collection. Hypothyroidism TSH 5.11 Free T4 0.57, free T3 1 0.47 Levothyroxine 25 g daily Monitor TSH every 6-8 weeks Hypertension Amlodipine 10 mg daily DVT prevention Patient ambulating Sequential compression devices while in bed Records were reviewed. Awaiting case management for discharge planning, No change in current treatment plan. Discharge Planning Due to underlying psychiatric/cognition patient is unsafe discharge until arrangements made by case management. Problem Qualifiers (1) Hypertension: Qualified Codes: I10 - Essential (primary) hypertension Alyssa Means Dec 18, 2017 11:03
[2017-12-18] MEDS: MIRTAZAPINE 15 MG TAB PO SCH (20:52)
[2017-12-18] MEDS: ACETAMINOPHEN 325 MG TAB PO PRN (20:53)
[2017-12-18 21:33] VITALS: BP 131/88; PULSE 72; RESP 16; TEMP 97.9; O2SAT 93
[2017-12-19] MEDS: LEVOTHYROXINE SODIUM 25 MCG TAB PO SCH (06:29)
[2017-12-19 08:00] VITALS: BP 138/88; PULSE 63; RESP 16; TEMP 96.4; O2SAT 93
[2017-12-19] MEDS: FLUoxetine HCL 20 MG CAP PO SCH (08:29)
[2017-12-19] MEDS: MULTIVITAMIN TAB PO SCH (08:29)
[2017-12-19] MEDS: VALPROIC ACID 250 MG CAP PO SCH ×2 (08:30→20:42)
[2017-12-19] MEDS: QUEtiapine FUMARATE 100 MG TAB PO SCH ×2 (08:30→20:42)
[2017-12-19] MEDS: ACETAMINOPHEN 325 MG TAB PO PRN ×2 (08:32→21:39)
--- NOTE | 2017-12-19 12:41 | HHI.PR ---
Subjective Remarks Follow-up unsafe discharge due to cognition, multiple falls and malnutrition. Patient seen and examined, sitting up in bed comfortably. Sitter at bedside. No reports of any falls over ninety. No change in clinical condition. Patient has been more motivated to eat a bradycardia of foods. Has been tolerating ensure each meal. She appears to be more pleasant and energetic. Vital signs are stable. Afebrile. Continue to monitor. Objective Vitals Vital Signs Date Time Temp Pulse Resp B/P (MAP) Pulse Ox O2 Delivery O2 Flow Rate FiO2 12/19/17 08:00 96.4 63 16 138/88 (105) 93 12/18/17 21:33 97.9 72 16 131/88 (102) 93 I/O 12/18/17 12/18/17 12/18/17 12/19/17 12/19/17 12/19/17 07:00 15:00 23:00 07:00 15:00 23:00 Intake Total 280 ml 480 ml Balance 280 ml 480 ml Intake Oral 280 ml 480 ml # Voids 2 2 5 # Bowel Movements 0 1 Result Diagram: 12/16/17202912/16/172029 Imaging Last Impressions Clavicle X-Ray 12/16/17 0000 Signed Impressions: Service Date/Time: December 19:51 - CONCLUSION: Distal clavicle is fractured but this appears nonacute. No acute fracture demonstrated. Jovany Hayes MD Thoracic Spine MRI 12/01/17 0000 Signed Impressions: Service Date/Time: Friday, December 01, 2017 15:10 - CONCLUSION: Negative for acute process. Vimal Taylor MD FACR Lumbar Spine MRI 12/01/17 0000 Signed Impressions: Service Date/Time: Friday, December 01, 2017 15:10 - CONCLUSION: Negative MRI of the lumbar spine. Vimal Taylor MD FACR Carotid Artery Ultrasound 11/30/17 0000 Signed Impressions: Service Date/Time: Thursday, November 30, 2017 14:34 - CONCLUSION: 1. Mild plaque with no hemodynamically significant stenosis. Vertebral artery flow antegrade. Fadi Carolina MD Cervical Spine MRI 11/28/17 0000 Signed Impressions: Service Date/Time: Tuesday, November 28, 2017 15:10 - CONCLUSION: 1. Multilevel posterior disc osteophyte complexes as described above. 2. Anterior fusion C6- 7. Dylon Haddad MD Knee X-Ray 11/02/17 0000 Signed Impressions: Service Date/Time: Thursday, November 02, 2017 18:51 - CONCLUSION: Intact right knee. Jovany Hayes MD Head CT 11/02/17 0000 Signed Impressions: Service Date/Time: Thursday, November 02, 2017 18:35 - CONCLUSION: 1. No bleed or other acute intracranial abnormality. 2. Previously seen intracranial hemorrhage has resolved. A small area of chronic encephalomalacia has developed of the right frontal lobe. 3. Chronic periventricular white matter changes are again noted. Jovany Hayes MD Breast Ultrasound 10/15/17 0000 Signed Impressions: Service Date/Time: Sunday, October 15, 2017 09:06 - CONCLUSION: Persistent subcutaneous collection at the 12:00 position of the right breast. It has slightly decreased in size since the study dated 09/23/2017 and could represent an infectious process. Consider followup to confirm resolution. Jovany Quezada MD Chest X-Ray 09/03/17 0000 Signed Impressions: Service Date/Time: Sunday, September 03, 2017 17:02 - CONCLUSION: 1. Mild edema pattern. Subsegmental basilar airspace disease most characteristic of atelectasis.. Fadi Carolina MD Cervical Spine CT 09/02/17 0000 Signed Impressions: Service Date/Time: August 12:56 - CONCLUSION: Postsurgical changes from anterior cervical plate at C6-7. No evidence of compression deformity or spondylolisthesis. Arun Regan MD Pelvis X-Ray 06/30/17 0000 Signed Impressions: Service Date/Time: Friday, June 30, 2017 12:17 - CONCLUSION: No significant change has occurred. Calros Capps MD Objective Remarks GENERAL: Well-nourished, well-developed female in NAD. SKIN: Warm and dry. No rash. Right breast abscess improved. HEENT: Normocephalic. Atraumatic. Pupils equal and round. No scleral icterus. No injection or drainage. No nasal bleeding or discharge. Mucous membranes pink and moist. NECK: Supple. Trachea midline. CARDIOVASCULAR: Regular rate and rhythm. S1, S2 noted. No murmur appreciated. RESPIRATORY: No accessory muscle use. Clear to auscultation. Breath sounds equal bilaterally. GASTROINTESTINAL: Abdomen soft, non-tender, nondistended. Normoactive bowel sounds x4. No guarding noted. MUSCULOSKELETAL: No obvious deformities. Extremities without clubbing, cyanosis , or edema. NEUROLOGICAL: Awake and alert. No obvious cranial nerve deficits. Motor grossly within normal limits. 5/5 muscle strength in bilateral upper and lower extremities. Normal speech. PSYCHIATRIC: Appropriate mood and affect. A/P Problem List: (1) Alcohol dependence in controlled environment ICD Code: F10.20 - Alcohol dependence, uncomplicated Status: Chronic (2) Facial injury ICD Code: S09.93XA - Unspecified injury of face, initial encounter Status: Acute (3) Fall ICD Code: W19.XXXA - Unspecified fall, initial encounter Status: Acute (4) Hypertension ICD Code: I10 - Essential (primary) hypertension Status: Acute (5) Pelvic fracture ICD Code: S32.9XXA - Fracture of unspecified parts of lumbosacral spine and pelvis, initial encounter for closed fracture Status: Acute (6) C1-C2 subluxation ICD Code: S13.120A - Subluxation of C1/C2 cervical vertebrae, initial encounter Status: Acute (7) C6 cervical fracture ICD Code: S12.500A - Unspecified displaced fracture of sixth cervical vertebra , initial encounter for closed fracture Status: Acute (8) Traumatic brain injury ICD Code: S06.9X9A - Unspecified intracranial injury with loss of consciousness of unspecified duration, initial encounter Status: Acute (9) Nasal fracture ICD Code: S02.2XXA - Fracture of nasal bones, initial encounter for closed fracture Status: Acute (10) Mild neurocognitive disorder ICD Code: G31.84 - Mild cognitive impairment, so stated Status: Acute (11) Intracranial bleed ICD Code: I62.9 - Nontraumatic intracranial hemorrhage, unspecified Status: Acute Assessment and Plan Inability to care for self, unsafe discharge due to cognition Initially was indicated patient cannot walk, patient is walking at this time , PT and OT recommending supervision at home for safety Speech therapy following the patient intermittently for cognitive evaluations. 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 MIni mental state 28/30, recommended avoid antipsychotics and benzodiazepine. Recommending Depakote or carbamazepine Patient is medically stable for discharge, however due to underlying psychiatric/cognition patient is unsafe discharge until arrangements made by case management Case management for discharge planning Neuropsychiatry evaluated the patient recommended patient may improve with treatment, however indicates avoid benzodiazepines and antipsychotics Continue Prozac 40 mg daily Depakene 500 mg twice daily Seroquel 100 mg twice daily *Discussed with psychiatry again about patient's cognition issues. He indicated that the patient lacks capacity for signing AMA or to participate in discharge plan. He is recommending that he would invite the ethics committee to the hospital to have a discussion about patient care *Consulted case management for ethics committee review, awaiting response Recurrent falls Patient moved close to nursing station Patient denies any neurological symptoms of weakness, paresthesia, loss of bowel or bladder control Orthostatic vitals do show drop in systolic blood pressure when standing. Improved after hydration Status post 2 L normal saline and continue monitor orthostatic vitals MRI of the neck. Multilevel degenerative changes. Mild degree of canal stenosis C5-C6, anterior fusion C6-C7 MRI of thoracic and lumbar spine do not indicate any acute abnormality Carotid ultrasound was unremarkable Echocardiogram indicate ejection fraction 50-55% without any abnormalities Physical therapy ordered for 5 days a week Left shoulder pain suspect secondary to fall: Improved. Given naproxen. Malnutrition, moderate: Improving. Dietitian consulted and has seen patient, appreciate input recommendations. Added multivitamin. Attempting Remeron for increasing appetite. Continue to monitor response. Vitamin B-12 normal. Albumin low. Prealbumin 19. Checking vitamin D level, follow. Started on supplementation. Continue PT. Order for patient to go to cafeteria daily RN as able. Multiple traumatic injuries Patient laceration, subdural hemorrhage, ventricular hemorrhage, nasal fracture, C6 fracture, C1-C2 subluxation, C4 transverse process fracture, right rib fracture, L1 transverse process fracture, right pubic rami fracture Continue c-collar this time, however patient does not wear Follow-up cervical spine CT indicates no evidence of acute fracture. Postsurgical changes Specialist no longer following patient, patient will require outpatient follow-up if discharge Right breast abscess, Improved. Physical exam shows improvement. Ultrasound does show complex loculated collection measuring 2.4 x 1.7 x 1.8 cm. Representing breast abscess Status post Augmentin 500 mg twice daily for 10 days (end date 10/25/17). Finished Bactrim DS for 18 days Gen. surgery consulted who recommends no intervention at this time. Soft tissue ultrasound shows a improvement of the fluid collection. Hypothyroidism TSH 5.11 Free T4 0.57, free T3 1 0.47 Levothyroxine 25 g daily Monitor TSH every 6-8 weeks Hypertension Amlodipine 10 mg daily DVT prevention Patient ambulating Sequential compression devices while in bed Records were reviewed. Awaiting case management for discharge planning, No change in current treatment plan. Discharge Planning Due to underlying psychiatric/cognition patient is unsafe discharge until arrangements made by case management. Problem Qualifiers (1) Hypertension: Qualified Codes: I10 - Essential (primary) hypertension Alyssa Means Dec 19, 2017 12:41
[2017-12-19 20:00] VITALS: BP 151/87; PULSE 73; RESP 19; TEMP 97.6; O2SAT 95
[2017-12-19] MEDS: MIRTAZAPINE 15 MG TAB PO SCH (20:42)
[2017-12-20] MEDS: LEVOTHYROXINE SODIUM 25 MCG TAB PO SCH (06:39)
--- NOTE | 2017-12-20 08:42 | HHI.PR ---
Subjective Remarks Follow-up unsafe discharge due to cognition and multiple falls and malnutrition. Patient seen and examined, lying in bed comfortably. Patient is pleasant today and talkative. Eating has much improved, appetite has improved. No falls overnight. Vital signs are stable. Afebrile. Objective Vitals Vital Signs Date Time Temp Pulse Resp B/P (MAP) Pulse Ox O2 Delivery O2 Flow Rate FiO2 12/19/17 22:39 20 12/19/17 20:00 97.6 73 19 151/87 (108) 95 I/O 12/19/17 12/19/17 12/19/17 12/20/17 12/20/17 12/20/17 07:00 15:00 23:00 07:00 15:00 23:00 Intake Total 1080 ml 120 ml Balance 1080 ml 120 ml Intake Oral 1080 ml 120 ml # Voids 5 3 2 # Bowel Movements 1 Result Diagram: 12/16/17202912/16/172029 Imaging Last Impressions Clavicle X-Ray 12/16/17 0000 Signed Impressions: Service Date/Time: December 19:51 - CONCLUSION: Distal clavicle is fractured but this appears nonacute. No acute fracture demonstrated. Jovany Hayes MD Thoracic Spine MRI 12/01/17 0000 Signed Impressions: Service Date/Time: Friday, December 01, 2017 15:10 - CONCLUSION: Negative for acute process. Vimal Taylor MD FACR Lumbar Spine MRI 12/01/17 0000 Signed Impressions: Service Date/Time: Friday, December 01, 2017 15:10 - CONCLUSION: Negative MRI of the lumbar spine. Vimal Taylor MD FACR Carotid Artery Ultrasound 11/30/17 0000 Signed Impressions: Service Date/Time: Thursday, November 30, 2017 14:34 - CONCLUSION: 1. Mild plaque with no hemodynamically significant stenosis. Vertebral artery flow antegrade. Fadi Carolina MD Cervical Spine MRI 11/28/17 0000 Signed Impressions: Service Date/Time: Tuesday, November 28, 2017 15:10 - CONCLUSION: 1. Multilevel posterior disc osteophyte complexes as described above. 2. Anterior fusion C6- 7. Dylon Haddad MD Knee X-Ray 11/02/17 0000 Signed Impressions: Service Date/Time: Thursday, November 02, 2017 18:51 - CONCLUSION: Intact right knee. Jovany Hayes MD Head CT 11/02/17 0000 Signed Impressions: Service Date/Time: Thursday, November 02, 2017 18:35 - CONCLUSION: 1. No bleed or other acute intracranial abnormality. 2. Previously seen intracranial hemorrhage has resolved. A small area of chronic encephalomalacia has developed of the right frontal lobe. 3. Chronic periventricular white matter changes are again noted. Jovany Hayes MD Breast Ultrasound 10/15/17 0000 Signed Impressions: Service Date/Time: Sunday, October 15, 2017 09:06 - CONCLUSION: Persistent subcutaneous collection at the 12:00 position of the right breast. It has slightly decreased in size since the study dated 09/23/2017 and could represent an infectious process. Consider followup to confirm resolution. Jovany Quezada MD Chest X-Ray 09/03/17 0000 Signed Impressions: Service Date/Time: Sunday, September 03, 2017 17:02 - CONCLUSION: 1. Mild edema pattern. Subsegmental basilar airspace disease most characteristic of atelectasis.. Fadi Carolina MD Cervical Spine CT 09/02/17 0000 Signed Impressions: Service Date/Time: August 12:56 - CONCLUSION: Postsurgical changes from anterior cervical plate at C6-7. No evidence of compression deformity or spondylolisthesis. Arun Regan MD Pelvis X-Ray 06/30/17 0000 Signed Impressions: Service Date/Time: Friday, June 30, 2017 12:17 - CONCLUSION: No significant change has occurred. Carlos Capps MD Objective Remarks GENERAL: Well-nourished, well-developed female in NAD. SKIN: Warm and dry. No rash. HEENT: Normocephalic. Atraumatic. Pupils equal and round. No scleral icterus. No injection or drainage. No nasal bleeding or discharge. Mucous membranes pink and moist. NECK: Supple. Trachea midline. CARDIOVASCULAR: Regular rate and rhythm. S1, S2 noted. No murmur appreciated. RESPIRATORY: No accessory muscle use. Clear to auscultation. Breath sounds equal bilaterally. GASTROINTESTINAL: Abdomen soft, non-tender, nondistended. Normoactive bowel sounds x4. No guarding noted. MUSCULOSKELETAL: No obvious deformities. Extremities without clubbing, cyanosis , or edema. NEUROLOGICAL: Awake and alert. No obvious cranial nerve deficits. Motor grossly within normal limits. 5/5 muscle strength in bilateral upper and lower extremities. Normal speech. PSYCHIATRIC: Appropriate mood and affect. A/P Problem List: (1) Alcohol dependence in controlled environment ICD Code: F10.20 - Alcohol dependence, uncomplicated Status: Chronic (2) Facial injury ICD Code: S09.93XA - Unspecified injury of face, initial encounter Status: Acute (3) Fall ICD Code: W19.XXXA - Unspecified fall, initial encounter Status: Acute (4) Hypertension ICD Code: I10 - Essential (primary) hypertension Status: Acute (5) Pelvic fracture ICD Code: S32.9XXA - Fracture of unspecified parts of lumbosacral spine and pelvis, initial encounter for closed fracture Status: Acute (6) C1-C2 subluxation ICD Code: S13.120A - Subluxation of C1/C2 cervical vertebrae, initial encounter Status: Acute (7) C6 cervical fracture ICD Code: S12.500A - Unspecified displaced fracture of sixth cervical vertebra , initial encounter for closed fracture Status: Acute (8) Traumatic brain injury ICD Code: S06.9X9A - Unspecified intracranial injury with loss of consciousness of unspecified duration, initial encounter Status: Acute (9) Nasal fracture ICD Code: S02.2XXA - Fracture of nasal bones, initial encounter for closed fracture Status: Acute (10) Mild neurocognitive disorder ICD Code: G31.84 - Mild cognitive impairment, so stated Status: Acute (11) Intracranial bleed ICD Code: I62.9 - Nontraumatic intracranial hemorrhage, unspecified Status: Acute Assessment and Plan Inability to care for self, unsafe discharge due to cognition PT and OT recommending supervision at home for safety Speech therapy following the patient intermittently for cognitive evaluations. 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 Mini mental state 28/30, recommended avoid antipsychotics and benzodiazepine. Recommending Depakote or carbamazepine Patient is medically stable for discharge, however due to underlying psychiatric/cognition patient is unsafe discharge until arrangements made by case management. Case management for discharge planning. Neuropsychiatry evaluated the patient recommended patient may improve with treatment, however indicates avoid benzodiazepines and antipsychotics Continue Prozac 40 mg daily Depakene 500 mg twice daily Seroquel 100 mg twice daily *Psychiatry indicated that the patient lacks capacity for signing AMA or to participate in discharge plan. He is recommending that he would invite the ethics committee to the hospital to have a discussion about patient care *Consulted case management for ethics committee review, awaiting response Recurrent falls Patient moved close to nursing station Patient denies any neurological symptoms of weakness, paresthesia, loss of bowel or bladder control Orthostatic vitals do show drop in systolic blood pressure when standing. Improved after hydration MRI of the neck. Multilevel degenerative changes. Mild degree of canal stenosis C5-C6, anterior fusion C6-C7 MRI of thoracic and lumbar spine do not indicate any acute abnormality Carotid ultrasound was unremarkable Echocardiogram indicate ejection fraction 50-55% without any abnormalities Physical therapy ordered for 5 days a week Left shoulder pain suspect secondary to fall: Improved. Given naproxen. Malnutrition, moderate: Improving. Dietitian consulted and has seen patient, appreciate input recommendations. Added multivitamin. Attempting Remeron for increasing appetite. Continue to monitor response. Vitamin B-12 normal. Albumin low. Prealbumin 19. Checking vitamin D level, follow. Started on supplementation. Continue PT. Order for patient to go to cafeteria daily RN as able. Multiple traumatic injuries Patient laceration, subdural hemorrhage, ventricular hemorrhage, nasal fracture, C6 fracture, C1-C2 subluxation, C4 transverse process fracture, right rib fracture, L1 transverse process fracture, right pubic rami fracture Continue c-collar this time, however patient does not wear Follow-up cervical spine CT 1026/17 indicates no evidence of acute fracture. Postsurgical changes Specialist no longer following patient, patient will require outpatient follow-up if discharge Right breast abscess, Improved. Physical exam shows improvement. Ultrasound does show complex loculated collection measuring 2.4 x 1.7 x 1.8 cm. Representing breast abscess Status post Augmentin 500 mg twice daily for 10 days (end date 10/25/17). Finished Bactrim DS for 18 days Gen. surgery consulted who recommends no intervention at this time. Soft tissue ultrasound shows a improvement of the fluid collection. Hypothyroidism TSH 5.11 Free T4 0.57, free T3 1 0.47 Levothyroxine 25 g daily Monitor TSH every 6-8 weeks Hypertension Amlodipine 10 mg daily DVT prevention Patient ambulating Sequential compression devices while in bed Records were reviewed. Awaiting case management for discharge planning, No change in current treatment plan. Discharge Planning Due to underlying psychiatric/cognition patient is unsafe discharge until arrangements made by case management. Problem Qualifiers (1) Hypertension: Qualified Codes: I10 - Essential (primary) hypertension Alyssa Means Dec 20, 2017 08:42
[2017-12-20 09:00] VITALS: BP 131/79; PULSE 79; RESP 16; TEMP 96.9; O2SAT 94
[2017-12-20 10:25] VITALS: BP 130/80
[2017-12-20] MEDS: MULTIVITAMIN TAB PO SCH (10:26)
[2017-12-20] MEDS: QUEtiapine FUMARATE 100 MG TAB PO SCH ×2 (10:26→19:54)
[2017-12-20] MEDS: FLUoxetine HCL 20 MG CAP PO SCH (10:27)
[2017-12-20] MEDS: VALPROIC ACID 250 MG CAP PO SCH ×2 (10:27→19:54)
[2017-12-20 12:00] VITALS: BP 147/90; PULSE 80; RESP 18; O2SAT 94
[2017-12-20 16:00] VITALS: BP 139/88; PULSE 87; RESP 16; TEMP 96.3; O2SAT 97
[2017-12-20] MEDS: MIRTAZAPINE 15 MG TAB PO SCH (19:54)
[2017-12-20 20:00] VITALS: BP 136/86; PULSE 80; RESP 16; TEMP 97.2; O2SAT 93
[2017-12-21] MEDS: LEVOTHYROXINE SODIUM 25 MCG TAB PO SCH (06:26)
[2017-12-21 08:00] VITALS: BP 130/94; PULSE 70; RESP 16; TEMP 96.1; O2SAT 94
[2017-12-21] MEDS: VALPROIC ACID 250 MG CAP PO SCH ×2 (09:20→20:18)
[2017-12-21] MEDS: QUEtiapine FUMARATE 100 MG TAB PO SCH ×2 (09:21→20:18)
[2017-12-21] MEDS: MULTIVITAMIN TAB PO SCH (09:21)
[2017-12-21] MEDS: FLUoxetine HCL 20 MG CAP PO SCH (09:21)
--- NOTE | 2017-12-21 09:54 | HHI.PR ---
Subjective Remarks Patient seen and examined today for follow-up on unsafe discharge due to cognition. Patient is doing much better. Patient states that she is eating more. She is asking when she can get released from the hospital. Objective Vitals Vital Signs Date Time Temp Pulse Resp B/P (MAP) Pulse Ox O2 Delivery O2 Flow Rate FiO2 12/21/17 08:00 96.1 70 16 130/94 (106) 94 12/20/17 20:00 97.2 80 16 136/86 (103) 93 12/20/17 16:00 96.3 87 16 139/88 (105) 97 12/20/17 12:00 80 18 147/90 (109) 94 12/20/17 10:25 130/80 (97) I/O 12/20/17 12/20/17 12/20/17 12/21/17 12/21/17 12/21/17 07:00 15:00 23:00 07:00 15:00 23:00 Intake Total 240 ml 960 ml 120 ml Balance 240 ml 960 ml 120 ml Intake Oral 240 ml 960 ml 120 ml # Voids 2 4 2 # Bowel Movements 0 0 Objective Remarks GENERAL: Well-developed, well-nourished, in no acute distress. alert and orientated waxes and wanes daily HEENT: Head is normocephalic without any lesions or masses noted. Facial features are symmetric. Eyes: Extraocular muscles are intact. Conjunctivae were clear. NECK: C-collar in on table at bedside CARDIAC: Regular rhythm, regular rate. S1/S2 are heard. No murmurs gallops or rubs. LUNGS: Clear to auscultation bilaterally. No wheeze, rhonchi or rales. No use of accessory muscles on inspiration or expiration. ABDOMEN: Soft, nontender. Nondistended. Bowel sounds heard in all 4 quadrants. No organomegaly or masses. Negative rebound, negative guarding EXTREMITIES: No edema, pulses are equal bilaterally. No cyanosis or clubbing NEUROLOGY: Mood and affect appear appropriate. Cranial nerves II through XII grossly intact moving all extremities, speech is clear Urinary Catheter: No Vascular Central Line Catheter: No A/P Assessment and Plan Inability to care for self, unsafe discharge due to cognition Initially he was indicated patient cannot walk, patient is walking at this time, PT and OT recommending supervision at home for safety Speech therapy following the patient intermittently for cognitive evaluations. 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 MIni mental state 28/30, recommended avoid antipsychotics and benzodiazepine. Recommending Depakote or carbamazepine Patient is medically stable for discharge, however due to underlying psychiatric/cognition patient is unsafe discharge until arrangements made by case management Case management for discharge planning Neuropsychiatry evaluated the patient recommended patient may improve with treatment, however indicates avoid benzodiazepines and antipsychotics Continue Prozac 40 mg daily Depakene 500 mg twice daily Seroquel 100 mg twice daily *Discussed with psychiatry again about patient's cognition issues. He indicated that the patient lacks capacity for signing AMA or to participate in discharge plan. He is recommending that he would invite the ethics committee to the hospital to have a discussion about patient care *Consulted case management for ethics committee review, awaiting response Mild malnutrition, secondary to poor by mouth intake Albumin 2.8 Prealbumin 19 However, patient actually has increase in weight of 6 pounds since admission. In the last 3 days it would appear that she's gained another 6 pounds Continue Remeron Dietary consulted who recommended ensure with breakfast lunch and there. May have Marfan at bedtime, daily vitamin Recurrent falls, Patient moved close to nursing station Patient does state that she is having neck pain Patient denies any neurological symptoms of weakness, paresthesia, loss of bowel or bladder control Orthostatic vitals do show drop in systolic blood pressure when standing. Improved after hydration Status post 2 L normal saline and continue monitor orthostatic vitals MRI of the neck. Multilevel degenerative changes. Mild degree of canal stenosis C5-C6, anterior fusion C6-C7 MRI of thoracic and lumbar spine do not indicate any acute abnormality Clavicle x-ray shows nonacute distal clavicle fracture. Carotid ultrasound was unremarkable Echocardiogram indicate ejection fraction 50-55% without any abnormalities Physical therapy ordered for 5 days a week Multiple traumatic injuries, Patient laceration, subdural hemorrhage, ventricular hemorrhage, nasal fracture, C6 fracture, C1-C2 subluxation, C4 transverse process fracture, right rib fracture, L1 transverse process fracture, right pubic rami fracture Continue c-collar this time, however patient does not wear Follow-up cervical spine CT 1026/17 indicates no evidence of acute fracture. Postsurgical changes Specialist no longer following patient, patient will require outpatient follow-up if discharge Right breast abscess, improved Physical exam patient does have a erythematous area with drainage Ultrasound does show complex loculated collection measuring 2.4 x 1.7 x 1.8 cm. Representing breast abscess Status post Augmentin 500 mg twice daily for 10 days., Bactrim DS for 18 days Gen. surgery consulted who recommends no intervention at this time, Soft tissue ultrasound shows a improvement of the fluid collection. Hypothyroidism TSH 5.11 Free T4 0.57, free T3 1 0.47 Levothyroxine 25 g daily Monitor TSH every 6-8 weeks Hypertension, Amlodipine 10 mg daily DVT prevention Patient ambulating Sequential compression devices while in bed Discharge Planning Case management for discharge planning, Conrado Mariee Dec 21, 2017 09:54
[2017-12-21 12:00] VITALS: BP 135/93; PULSE 75; RESP 16; TEMP 96.7; O2SAT 94
[2017-12-21 16:00] VITALS: BP 130/94; PULSE 91; RESP 18; TEMP 96; O2SAT 95
[2017-12-21 20:00] VITALS: BP 132/84; PULSE 86; RESP 20; TEMP 96.5; O2SAT 93
[2017-12-21] MEDS: MIRTAZAPINE 15 MG TAB PO SCH (20:18)
[2017-12-22] MEDS: LEVOTHYROXINE SODIUM 25 MCG TAB PO SCH (06:34)
[2017-12-22] MEDS: FLUoxetine HCL 20 MG CAP PO SCH (08:25)
[2017-12-22] MEDS: VALPROIC ACID 250 MG CAP PO SCH ×2 (08:26→20:57)
[2017-12-22] MEDS: QUEtiapine FUMARATE 100 MG TAB PO SCH ×2 (08:26→20:58)
[2017-12-22] MEDS: MULTIVITAMIN TAB PO SCH (08:26)
--- NOTE | 2017-12-22 09:01 | HHI.PR ---
Subjective Remarks Patient is seen today in follow-up for unsafe discharge due to cognition. Patient was walking the liu without any problems with physical therapy. Patient denies any new complaints. Patient has not fallen in the last 2 days. Patient remains afebrile Objective Vitals Vital Signs Date Time Temp Pulse Resp B/P (MAP) Pulse Ox O2 Delivery O2 Flow Rate FiO2 12/21/17 20:00 96.5 86 20 132/84 (100) 93 12/21/17 16:00 96.0 91 18 130/94 (106) 95 12/21/17 12:00 96.7 75 16 135/93 (107) 94 I/O 12/21/17 12/21/17 12/21/17 12/22/17 12/22/17 12/22/17 07:00 15:00 23:00 07:00 15:00 23:00 Intake Total 120 ml 480 ml 240 ml Balance 120 ml 480 ml 240 ml Intake Oral 120 ml 480 ml 240 ml # Voids 2 4 1 # Bowel Movements 0 Objective Remarks GENERAL: Well-developed, well-nourished, in no acute distress. alert and orientated waxes and wanes daily HEENT: Head is normocephalic without any lesions or masses noted. Facial features are symmetric. Eyes: Extraocular muscles are intact. Conjunctivae were clear. NECK: C-collar in on table at bedside CARDIAC: Regular rhythm, regular rate. S1/S2 are heard. No murmurs gallops or rubs. LUNGS: Clear to auscultation bilaterally. No wheeze, rhonchi or rales. No use of accessory muscles on inspiration or expiration. ABDOMEN: Soft, nontender. Nondistended. Bowel sounds heard in all 4 quadrants. No organomegaly or masses. Negative rebound, negative guarding EXTREMITIES: No edema, pulses are equal bilaterally. No cyanosis or clubbing NEUROLOGY: Mood and affect appear appropriate. Cranial nerves II through XII grossly intact moving all extremities, speech is clear Urinary Catheter: No Vascular Central Line Catheter: No A/P Assessment and Plan Inability to care for self, unsafe discharge due to cognition Initially he was indicated patient cannot walk, patient is walking at this time, PT and OT recommending supervision at home for safety Speech therapy following the patient intermittently for cognitive evaluations. 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 MIni mental state 28/30, recommended avoid antipsychotics and benzodiazepine. Recommending Depakote or carbamazepine Patient is medically stable for discharge, however due to underlying psychiatric/cognition patient is unsafe discharge until arrangements made by case management Case management for discharge planning Neuropsychiatry evaluated the patient recommended patient may improve with treatment, however indicates avoid benzodiazepines and antipsychotics Continue Prozac 40 mg daily Depakene 500 mg twice daily Seroquel 100 mg twice daily *Discussed with psychiatry again about patient's cognition issues. He indicated that the patient lacks capacity for signing AMA or to participate in discharge plan. He is recommending that he would invite the ethics committee to the hospital to have a discussion about patient care *Consulted case management for ethics committee review, awaiting response Mild malnutrition, secondary to poor by mouth intake Albumin 2.8 Prealbumin 19 However, patient actually has increase in weight of 6 pounds since admission. In the last 3 days it would appear that she's gained another 6 pounds Continue Remeron Dietary consulted who recommended ensure with breakfast lunch and there. May have muffin at bedtime, daily vitamin Recurrent falls, Patient moved close to nursing station Patient does state that she is having neck pain Patient denies any neurological symptoms of weakness, paresthesia, loss of bowel or bladder control Orthostatic vitals do show drop in systolic blood pressure when standing. Improved after hydration Status post 2 L normal saline and continue monitor orthostatic vitals MRI of the neck. Multilevel degenerative changes. Mild degree of canal stenosis C5-C6, anterior fusion C6-C7 MRI of thoracic and lumbar spine do not indicate any acute abnormality Clavicle x-ray shows nonacute distal clavicle fracture. Carotid ultrasound was unremarkable Echocardiogram indicate ejection fraction 50-55% without any abnormalities Physical therapy ordered for 5 days a week Multiple traumatic injuries, Patient laceration, subdural hemorrhage, ventricular hemorrhage, nasal fracture, C6 fracture, C1-C2 subluxation, C4 transverse process fracture, right rib fracture, L1 transverse process fracture, right pubic rami fracture Continue c-collar this time, however patient does not wear Follow-up cervical spine CT 1025/ indicates no evidence of acute fracture. Postsurgical changes Specialist no longer following patient, patient will require outpatient follow-up if discharge Right breast abscess, improved Physical exam patient does have a erythematous area with drainage Ultrasound does show complex loculated collection measuring 2.4 x 1.7 x 1.8 cm. Representing breast abscess Status post Augmentin 500 mg twice daily for 10 days., Bactrim DS for 18 days Gen. surgery consulted who recommends no intervention at this time, Soft tissue ultrasound shows a improvement of the fluid collection. Hypothyroidism TSH 5.11 Free T4 0.57, free T3 1 0.47 Levothyroxine 25 g daily Monitor TSH every 6-8 weeks Hypertension, Amlodipine 10 mg daily DVT prevention Patient ambulating Sequential compression devices while in bed Records are reviewed. No change in current treatment plan. Case management for discharge planning Discharge Planning Case management for discharge planning, Conrado Mariee Dec 22, 2017 09:01
[2017-12-22] MEDS: ACETAMINOPHEN 325 MG TAB PO PRN (11:19)
[2017-12-22 12:00] VITALS: BP 120/87; PULSE 78; RESP 17; TEMP 97.7; O2SAT 94
[2017-12-22 16:00] VITALS: BP 100/78; PULSE 81; RESP 17; TEMP 97.5
[2017-12-22 20:00] VITALS: BP 130/86; PULSE 81; RESP 20; TEMP 96.1; O2SAT 95
[2017-12-22] MEDS: MIRTAZAPINE 15 MG TAB PO SCH (20:58)
[2017-12-23] MEDS: LEVOTHYROXINE SODIUM 25 MCG TAB PO SCH (05:24)
[2017-12-23 08:00] VITALS: BP 147/87; PULSE 79; RESP 16; TEMP 96.5; O2SAT 95
[2017-12-23] MEDS: QUEtiapine FUMARATE 100 MG TAB PO SCH ×2 (08:32→21:32)
[2017-12-23] MEDS: FLUoxetine HCL 20 MG CAP PO SCH (08:32)
[2017-12-23] MEDS: MULTIVITAMIN TAB PO SCH (08:32)
[2017-12-23] MEDS: VALPROIC ACID 250 MG CAP PO SCH ×2 (08:35→21:32)
--- NOTE | 2017-12-23 09:12 | HHI.PR ---
Subjective Remarks Patient examined today for follow-up on unsafe discharge due to cognition. Patient states that she is doing well. Nursing staff indicates that the patient did not eat her breakfast this morning. Patient over last couple days have notified me that she has been eating well. Which was substantiated by the QUESTIONED DOCUMENTS EXAMINER that sits in her room with her all the time. There is been no recurrent falls Objective Vitals Vital Signs Date Time Temp Pulse Resp B/P (MAP) Pulse Ox O2 Delivery O2 Flow Rate FiO2 12/23/17 08:00 96.5 79 16 147/87 (107) 95 12/22/17 20:00 96.1 81 20 130/86 (101) 95 12/22/17 16:00 97.5 81 17 100/78 (85) 12/22/17 12:00 97.7 78 17 120/87 (98) 94 I/O 12/22/17 12/22/17 12/22/17 12/23/17 12/23/17 12/23/17 07:00 15:00 23:00 07:00 15:00 23:00 Intake Total 240 ml 60 ml Balance 240 ml 60 ml Intake Oral 240 ml 60 ml # Voids 1 5 # Bowel Movements 0 Objective Remarks GENERAL: Well-developed, well-nourished, in no acute distress. alert and orientated waxes and wanes daily HEENT: Head is normocephalic without any lesions or masses noted. Facial features are symmetric. Eyes: Extraocular muscles are intact. Conjunctivae were clear. NECK: C-collar in on table at bedside CARDIAC: Regular rhythm, regular rate. S1/S2 are heard. No murmurs gallops or rubs. LUNGS: Clear to auscultation bilaterally. No wheeze, rhonchi or rales. No use of accessory muscles on inspiration or expiration. ABDOMEN: Soft, nontender. Nondistended. Bowel sounds heard in all 4 quadrants. No organomegaly or masses. Negative rebound, negative guarding EXTREMITIES: No edema, pulses are equal bilaterally. No cyanosis or clubbing NEUROLOGY: Mood and affect appear appropriate. Cranial nerves II through XII grossly intact moving all extremities, speech is clear Urinary Catheter: No Vascular Central Line Catheter: No A/P Assessment and Plan Inability to care for self, unsafe discharge due to cognition Initially he was indicated patient cannot walk, patient is walking at this time, PT and OT recommending supervision at home for safety Speech therapy following the patient intermittently for cognitive evaluations. 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 MIni mental state 28/30, recommended avoid antipsychotics and benzodiazepine. Recommending Depakote or carbamazepine Patient is medically stable for discharge, however due to underlying psychiatric/cognition patient is unsafe discharge until arrangements made by case management Case management for discharge planning Neuropsychiatry evaluated the patient recommended patient may improve with treatment, however indicates avoid benzodiazepines and antipsychotics Continue Prozac 40 mg daily Depakene 500 mg twice daily Seroquel 100 mg twice daily *Discussed with psychiatry again about patient's cognition issues. He indicated that the patient lacks capacity for signing AMA or to participate in discharge plan. He is recommending that he would invite the ethics committee to the hospital to have a discussion about patient care *Consulted case management for ethics committee review, awaiting response Mild malnutrition, secondary to poor by mouth intake Albumin 2.8 Prealbumin 19 However, patient actually has increase in weight of 6 pounds since admission. In the last 3 days it would appear that she's gained another 6 pounds Continue Remeron Dietary consulted who recommended ensure with breakfast lunch and there. May have muffin at bedtime, daily vitamin Recurrent falls, Patient moved close to nursing station Patient does state that she is having neck pain Patient denies any neurological symptoms of weakness, paresthesia, loss of bowel or bladder control Orthostatic vitals do show drop in systolic blood pressure when standing. Improved after hydration Status post 2 L normal saline and continue monitor orthostatic vitals MRI of the neck. Multilevel degenerative changes. Mild degree of canal stenosis C5-C6, anterior fusion C6-C7 MRI of thoracic and lumbar spine do not indicate any acute abnormality Clavicle x-ray shows nonacute distal clavicle fracture. Carotid ultrasound was unremarkable Echocardiogram indicate ejection fraction 50-55% without any abnormalities Physical therapy ordered for 5 days a week Multiple traumatic injuries, Patient laceration, subdural hemorrhage, ventricular hemorrhage, nasal fracture, C6 fracture, C1-C2 subluxation, C4 transverse process fracture, right rib fracture, L1 transverse process fracture, right pubic rami fracture Continue c-collar this time, however patient does not wear Follow-up cervical spine CT indicates no evidence of acute fracture. Postsurgical changes Specialist no longer following patient, patient will require outpatient follow-up if discharge Right breast abscess, improved Physical exam patient does have a erythematous area with drainage Ultrasound does show complex loculated collection measuring 2.4 x 1.7 x 1.8 cm. Representing breast abscess Status post Augmentin 500 mg twice daily for 10 days., Bactrim DS for 18 days Gen. surgery consulted who recommends no intervention at this time, Soft tissue ultrasound shows a improvement of the fluid collection. Hypothyroidism TSH 5.11 Free T4 0.57, free T3 1 0.47 Levothyroxine 25 g daily Monitor TSH every 6-8 weeks Hypertension, Amlodipine 10 mg daily DVT prevention Patient ambulating Sequential compression devices while in bed Records are reviewed. Case management for discharge planning. No change in current treatment plan. Discharge Planning Case management for discharge planning, Conrado Mariee Dec 23, 2017 09:12
[2017-12-23 20:00] VITALS: BP 149/90; PULSE 95; RESP 20; TEMP 96.2; O2SAT 94
[2017-12-23] MEDS: MIRTAZAPINE 15 MG TAB PO SCH (21:32)
[2017-12-24] MEDS: LEVOTHYROXINE SODIUM 25 MCG TAB PO SCH (06:20)
[2017-12-24 07:56] VITALS: BP 154/98; PULSE 72; RESP 20; TEMP 97.4; O2SAT 95
[2017-12-24] MEDS: MULTIVITAMIN TAB PO SCH (08:26)
[2017-12-24] MEDS: VALPROIC ACID 250 MG CAP PO SCH ×2 (08:27→21:06)
[2017-12-24] MEDS: QUEtiapine FUMARATE 100 MG TAB PO SCH ×2 (08:27→21:06)
[2017-12-24] MEDS: FLUoxetine HCL 20 MG CAP PO SCH (08:28)
[2017-12-24] MEDS: ERGOCALCIFEROL (VIT D2) 50,000 UNIT CAP PO SCH (08:28)
--- NOTE | 2017-12-24 11:18 | HHI.PR ---
Subjective Remarks Patient seen and examined today for follow-up on unsafe discharge due to cognition. Patient doing well. Denies any new complaints. Did have breakfast this morning. Objective Vitals Vital Signs Date Time Temp Pulse Resp B/P (MAP) Pulse Ox O2 Delivery O2 Flow Rate FiO2 12/24/17 07:56 97.4 72 20 154/98 (116) 95 12/23/17 20:00 96.2 95 20 149/90 (109) 94 I/O 12/23/17 12/23/17 12/23/17 12/24/17 12/24/17 12/24/17 07:00 15:00 23:00 07:00 15:00 23:00 Intake Total 60 ml Balance 60 ml Intake Oral 60 ml # Voids 5 # Bowel Movements 0 Objective Remarks GENERAL: Well-developed, well-nourished, in no acute distress. alert and orientated waxes and wanes daily HEENT: Head is normocephalic without any lesions or masses noted. Facial features are symmetric. Eyes: Extraocular muscles are intact. Conjunctivae were clear. NECK: C-collar in on table at bedside CARDIAC: Regular rhythm, regular rate. S1/S2 are heard. No murmurs gallops or rubs. LUNGS: Clear to auscultation bilaterally. No wheeze, rhonchi or rales. No use of accessory muscles on inspiration or expiration. ABDOMEN: Soft, nontender. Nondistended. Bowel sounds heard in all 4 quadrants. No organomegaly or masses. Negative rebound, negative guarding EXTREMITIES: No edema, pulses are equal bilaterally. No cyanosis or clubbing NEUROLOGY: Mood and affect appear appropriate. Cranial nerves II through XII grossly intact moving all extremities, speech is clear Urinary Catheter: No Vascular Central Line Catheter: No A/P Assessment and Plan Inability to care for self, unsafe discharge due to cognition Initially he was indicated patient cannot walk, patient is walking at this time, PT and OT recommending supervision at home for safety Speech therapy following the patient intermittently for cognitive evaluations. 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 MIni mental state 28/30, recommended avoid antipsychotics and benzodiazepine. Recommending Depakote or carbamazepine Patient is medically stable for discharge, however due to underlying psychiatric/cognition patient is unsafe discharge until arrangements made by case management Case management for discharge planning Neuropsychiatry evaluated the patient recommended patient may improve with treatment, however indicates avoid benzodiazepines and antipsychotics Continue Prozac 40 mg daily Depakene 500 mg twice daily Seroquel 100 mg twice daily *Discussed with psychiatry again about patient's cognition issues. He indicated that the patient lacks capacity for signing AMA or to participate in discharge plan. He is recommending that he would invite the ethics committee to the hospital to have a discussion about patient care *Consulted case management for ethics committee review, awaiting response Mild malnutrition, secondary to poor by mouth intake Albumin 2.8 Prealbumin 19 However, patient actually has increase in weight of 6 pounds since admission. In the last 3 days it would appear that she's gained another 6 pounds Continue Remeron Dietary consulted who recommended ensure with breakfast lunch and there. May have muffin at bedtime, daily vitamin Recurrent falls, Patient moved close to nursing station Patient does state that she is having neck pain Patient denies any neurological symptoms of weakness, paresthesia, loss of bowel or bladder control Orthostatic vitals do show drop in systolic blood pressure when standing. Improved after hydration Status post 2 L normal saline and continue monitor orthostatic vitals MRI of the neck. Multilevel degenerative changes. Mild degree of canal stenosis C5-C6, anterior fusion C6-C7 MRI of thoracic and lumbar spine do not indicate any acute abnormality Clavicle x-ray shows nonacute distal clavicle fracture. Carotid ultrasound was unremarkable Echocardiogram indicate ejection fraction 50-55% without any abnormalities Physical therapy ordered for 5 days a week Multiple traumatic injuries, Patient laceration, subdural hemorrhage, ventricular hemorrhage, nasal fracture, C6 fracture, C1-C2 subluxation, C4 transverse process fracture, right rib fracture, L1 transverse process fracture, right pubic rami fracture Continue c-collar this time, however patient does not wear Follow-up cervical spine CT indicates no evidence of acute fracture. Postsurgical changes Specialist no longer following patient, patient will require outpatient follow-up if discharge Right breast abscess, improved Physical exam patient does have a erythematous area with drainage Ultrasound does show complex loculated collection measuring 2.4 x 1.7 x 1.8 cm. Representing breast abscess Status post Augmentin 500 mg twice daily for 10 days., Bactrim DS for 18 days Gen. surgery consulted who recommends no intervention at this time, Soft tissue ultrasound shows a improvement of the fluid collection. Hypothyroidism TSH 5.11 Free T4 0.57, free T3 1 0.47 Levothyroxine 25 g daily Monitor TSH every 6-8 weeks Hypertension, Amlodipine 10 mg daily DVT prevention Patient ambulating Sequential compression devices while in bed Records are reviewed. No change in current treatment plan. Case management for discharge planning. Discharge Planning Case management for discharge planning, Conrado Mariee Dec 24, 2017 11:18
[2017-12-24 20:00] VITALS: BP 123/85; PULSE 93; RESP 20; TEMP 97.6; O2SAT 94
[2017-12-24] MEDS: MIRTAZAPINE 15 MG TAB PO SCH (21:06)
[2017-12-25] MEDS: LEVOTHYROXINE SODIUM 25 MCG TAB PO SCH (06:00)
--- NOTE | 2017-12-25 08:27 | HHI.PR ---
Subjective Remarks Patient sees examined today for unsafe discharge due to cognition. Patient denies any new complaints. No change in clinical status. Patient is eating much better. No recent fall. Objective Vitals Vital Signs Date Time Temp Pulse Resp B/P (MAP) Pulse Ox O2 Delivery O2 Flow Rate FiO2 12/24/17 20:00 97.6 93 20 123/85 (98) 94 I/O 12/24/17 12/24/17 12/24/17 12/25/17 12/25/17 12/25/17 07:00 15:00 23:00 07:00 15:00 23:00 Intake Total 600 ml 240 ml 240 ml Balance 600 ml 240 ml 240 ml Intake Oral 600 ml 240 ml 240 ml # Voids 3 2 Objective Remarks GENERAL: Well-developed, well-nourished, in no acute distress. alert and orientated waxes and wanes daily HEENT: Head is normocephalic without any lesions or masses noted. Facial features are symmetric. Eyes: Extraocular muscles are intact. Conjunctivae were clear. NECK: C-collar in on table at bedside CARDIAC: Regular rhythm, regular rate. S1/S2 are heard. No murmurs gallops or rubs. LUNGS: Clear to auscultation bilaterally. No wheeze, rhonchi or rales. No use of accessory muscles on inspiration or expiration. ABDOMEN: Soft, nontender. Nondistended. Bowel sounds heard in all 4 quadrants. No organomegaly or masses. Negative rebound, negative guarding EXTREMITIES: No edema, pulses are equal bilaterally. No cyanosis or clubbing NEUROLOGY: Mood and affect appear appropriate. Cranial nerves II through XII grossly intact moving all extremities, speech is clear Urinary Catheter: No Vascular Central Line Catheter: No A/P Assessment and Plan Inability to care for self, unsafe discharge due to cognition Initially he was indicated patient cannot walk, patient is walking at this time, PT and OT recommending supervision at home for safety Speech therapy following the patient intermittently for cognitive evaluations. 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 MIni mental state 28/30, recommended avoid antipsychotics and benzodiazepine. Recommending Depakote or carbamazepine Patient is medically stable for discharge, however due to underlying psychiatric/cognition patient is unsafe discharge until arrangements made by case management Case management for discharge planning Neuropsychiatry evaluated the patient recommended patient may improve with treatment, however indicates avoid benzodiazepines and antipsychotics Continue Prozac 40 mg daily Depakene 500 mg twice daily Seroquel 100 mg twice daily *Discussed with psychiatry again about patient's cognition issues. He indicated that the patient lacks capacity for signing AMA or to participate in discharge plan. He is recommending that he would invite the ethics committee to the hospital to have a discussion about patient care *Consulted case management for ethics committee review, awaiting response Mild malnutrition, secondary to poor by mouth intake Albumin 2.8 Prealbumin 19 However, patient actually has increase in weight of 6 pounds since admission. In the last 3 days it would appear that she's gained another 6 pounds Continue Remeron Dietary consulted who recommended ensure with breakfast lunch and there. May have muffin at bedtime, daily vitamin Recurrent falls, Patient moved close to nursing station Patient does state that she is having neck pain Patient denies any neurological symptoms of weakness, paresthesia, loss of bowel or bladder control Orthostatic vitals do show drop in systolic blood pressure when standing. Improved after hydration Status post 2 L normal saline and continue monitor orthostatic vitals MRI of the neck. Multilevel degenerative changes. Mild degree of canal stenosis C5-C6, anterior fusion C6-C7 MRI of thoracic and lumbar spine do not indicate any acute abnormality Clavicle x-ray shows nonacute distal clavicle fracture. Carotid ultrasound was unremarkable Echocardiogram indicate ejection fraction 50-55% without any abnormalities Physical therapy ordered for 5 days a week Multiple traumatic injuries, Patient laceration, subdural hemorrhage, ventricular hemorrhage, nasal fracture, C6 fracture, C1-C2 subluxation, C4 transverse process fracture, right rib fracture, L1 transverse process fracture, right pubic rami fracture Continue c-collar this time, however patient does not wear Follow-up cervical spine CT 1026/17 indicates no evidence of acute fracture. Postsurgical changes Specialist no longer following patient, patient will require outpatient follow-up if discharge Right breast abscess, improved Physical exam patient does have a erythematous area with drainage Ultrasound does show complex loculated collection measuring 2.4 x 1.7 x 1.8 cm. Representing breast abscess Status post Augmentin 500 mg twice daily for 10 days., Bactrim DS for 18 days Gen. surgery consulted who recommends no intervention at this time, Soft tissue ultrasound shows a improvement of the fluid collection. Hypothyroidism TSH 5.11 Free T4 0.57, free T3 1 0.47 Levothyroxine 25 g daily Monitor TSH every 6-8 weeks Hypertension, Amlodipine 10 mg daily DVT prevention Patient ambulating Sequential compression devices while in bed Records are reviewed. Case management for discharge planning. No change in current treatment plan. Discharge Planning Case management for discharge planning, Conrado Mariee Dec 25, 2017 08:27
[2017-12-25] MEDS: FLUoxetine HCL 20 MG CAP PO SCH (08:45)
[2017-12-25] MEDS: MULTIVITAMIN TAB PO SCH (08:45)
[2017-12-25] MEDS: VALPROIC ACID 250 MG CAP PO SCH ×2 (08:45→20:28)
[2017-12-25] MEDS: QUEtiapine FUMARATE 100 MG TAB PO SCH ×2 (08:45→20:28)
[2017-12-25 08:50] VITALS: BP 164/94; PULSE 75; RESP 18; TEMP 97.8
[2017-12-25 16:30] VITALS: BP 125/84; PULSE 88; RESP 16; TEMP 97.5; O2SAT 93
[2017-12-25 17:42] VITALS: TEMP 98.8
[2017-12-25 20:00] VITALS: BP 125/83; PULSE 84; RESP 16; TEMP 96.7; O2SAT 94
[2017-12-25] MEDS: MIRTAZAPINE 15 MG TAB PO SCH (20:28)
[2017-12-26] MEDS: LEVOTHYROXINE SODIUM 25 MCG TAB PO SCH (06:31)
--- NOTE | 2017-12-26 07:27 | HHI.PR ---
Subjective Remarks Patient seen and examined today for unsafe discharge due to cognition. Patient denies any new complaints. Patient states that she is eating much better. Vital signs are stable, afebrile. Objective Vitals Vital Signs Date Time Temp Pulse Resp B/P (MAP) Pulse Ox O2 Delivery O2 Flow Rate FiO2 12/25/17 20:00 96.7 84 16 125/83 (97) 94 12/25/17 17:42 98.8 12/25/17 16:30 97.5 88 16 125/84 (98) 93 12/25/17 08:50 97.8 75 18 164/94 (117) I/O 12/25/17 12/25/17 12/25/17 12/26/17 12/26/17 12/26/17 07:00 15:00 23:00 07:00 15:00 23:00 Intake Total 240 ml 650 ml 280 ml Balance 240 ml 650 ml 280 ml Intake Oral 240 ml 650 ml 280 ml # Voids 2 3 1 # Bowel Movements 1 0 Objective Remarks GENERAL: Well-developed, well-nourished, in no acute distress. alert and orientated waxes and wanes daily HEENT: Head is normocephalic without any lesions or masses noted. Facial features are symmetric. Eyes: Extraocular muscles are intact. Conjunctivae were clear. NECK: C-collar in on table at bedside CARDIAC: Regular rhythm, regular rate. S1/S2 are heard. No murmurs gallops or rubs. LUNGS: Clear to auscultation bilaterally. No wheeze, rhonchi or rales. No use of accessory muscles on inspiration or expiration. ABDOMEN: Soft, nontender. Nondistended. Bowel sounds heard in all 4 quadrants. No organomegaly or masses. Negative rebound, negative guarding EXTREMITIES: No edema, pulses are equal bilaterally. No cyanosis or clubbing NEUROLOGY: Mood and affect appear appropriate. Cranial nerves II through XII grossly intact moving all extremities, speech is clear Urinary Catheter: No Vascular Central Line Catheter: No A/P Assessment and Plan Inability to care for self, unsafe discharge due to cognition Initially he was indicated patient cannot walk, patient is walking at this time, PT and OT recommending supervision at home for safety Speech therapy following the patient intermittently for cognitive evaluations. 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 MIni mental state 28/30, recommended avoid antipsychotics and benzodiazepine. Recommending Depakote or carbamazepine Patient is medically stable for discharge, however due to underlying psychiatric/cognition patient is unsafe discharge until arrangements made by case management Case management for discharge planning Neuropsychiatry evaluated the patient recommended patient may improve with treatment, however indicates avoid benzodiazepines and antipsychotics Continue Prozac 40 mg daily Depakene 500 mg twice daily Seroquel 100 mg twice daily *Discussed with psychiatry again about patient's cognition issues. He indicated that the patient lacks capacity for signing AMA or to participate in discharge plan. He is recommending that he would invite the ethics committee to the hospital to have a discussion about patient care *Consulted case management for ethics committee review, awaiting response Mild malnutrition, secondary to poor by mouth intake Albumin 2.8 Prealbumin 19 However, patient actually has increase in weight of 6 pounds since admission. In the last 3 days it would appear that she's gained another 6 pounds Continue Remeron Dietary consulted who recommended ensure with breakfast lunch and there. May have muffin at bedtime, daily vitamin Recurrent falls, Patient moved close to nursing station Patient does state that she is having neck pain Patient denies any neurological symptoms of weakness, paresthesia, loss of bowel or bladder control Orthostatic vitals do show drop in systolic blood pressure when standing. Improved after hydration Status post 2 L normal saline and continue monitor orthostatic vitals MRI of the neck. Multilevel degenerative changes. Mild degree of canal stenosis C5-C6, anterior fusion C6-C7 MRI of thoracic and lumbar spine do not indicate any acute abnormality Clavicle x-ray shows nonacute distal clavicle fracture. Carotid ultrasound was unremarkable Echocardiogram indicate ejection fraction 50-55% without any abnormalities Physical therapy ordered for 5 days a week Multiple traumatic injuries, Patient laceration, subdural hemorrhage, ventricular hemorrhage, nasal fracture, C6 fracture, C1-C2 subluxation, C4 transverse process fracture, right rib fracture, L1 transverse process fracture, right pubic rami fracture Continue c-collar this time, however patient does not wear Follow-up cervical spine CT indicates no evidence of acute fracture. Postsurgical changes Specialist no longer following patient, patient will require outpatient follow-up if discharge Right breast abscess, improved Physical exam patient does have a erythematous area with drainage Ultrasound does show complex loculated collection measuring 2.4 x 1.7 x 1.8 cm. Representing breast abscess Status post Augmentin 500 mg twice daily for 10 days., Bactrim DS for 18 days Gen. surgery consulted who recommends no intervention at this time, Soft tissue ultrasound shows a improvement of the fluid collection. Hypothyroidism TSH 5.11 Free T4 0.57, free T3 1 0.47 Levothyroxine 25 g daily Monitor TSH every 6-8 weeks Hypertension, Amlodipine 10 mg daily DVT prevention Patient ambulating Sequential compression devices while in bed Records are reviewed. No change in current treatment plan. Case management for discharge planning. Discharge Planning Case management for discharge planning, Conrado Mariee Dec 26, 2017 07:27
[2017-12-26] MEDS: FLUoxetine HCL 20 MG CAP PO SCH (07:45)
[2017-12-26] MEDS: MULTIVITAMIN TAB PO SCH (07:46)
[2017-12-26] MEDS: QUEtiapine FUMARATE 100 MG TAB PO SCH ×2 (07:46→20:39)
[2017-12-26] MEDS: VALPROIC ACID 250 MG CAP PO SCH ×2 (07:46→20:40)
[2017-12-26 08:00] VITALS: BP 124/77; PULSE 88; RESP 16; TEMP 96.8; O2SAT 93
[2017-12-26 20:00] VITALS: BP 135/87; PULSE 90; RESP 16; TEMP 97.4; O2SAT 93
[2017-12-26] MEDS: MIRTAZAPINE 15 MG TAB PO SCH (20:40)
[2017-12-26] MEDS: ACETAMINOPHEN 325 MG TAB PO PRN (21:59)
[2017-12-27] MEDS: LEVOTHYROXINE SODIUM 25 MCG TAB PO SCH (06:31)
--- NOTE | 2017-12-27 07:30 | HHI.PR ---
Subjective Remarks Patient seen and examined today for unsafe discharge due to cognition. Patient denies any new complaints. Patient states that she is eating, having bowel movements, and walking without falling, "When can i leave?". vitals are stable, afebrile Objective Vitals Vital Signs Date Time Temp Pulse Resp B/P (MAP) Pulse Ox O2 Delivery O2 Flow Rate FiO2 12/26/17 20:00 97.4 90 16 135/87 (103) 93 12/26/17 08:00 96.8 88 16 124/77 (93) 93 I/O 12/26/17 12/26/17 12/26/17 12/27/17 12/27/17 12/27/17 07:00 15:00 23:00 07:00 15:00 23:00 Intake Total 280 ml 502 ml Output Total 1 ml Balance 280 ml 502 ml -1 ml Intake Oral 280 ml 502 ml Output Urine Total 1 ml # Voids 1 # Bowel Movements 0 Objective Remarks GENERAL: Well-developed, well-nourished, in no acute distress. alert and orientated waxes and wanes daily HEENT: Head is normocephalic without any lesions or masses noted. Facial features are symmetric. Eyes: Extraocular muscles are intact. Conjunctivae were clear. NECK: C-collar in on table at bedside CARDIAC: Regular rhythm, regular rate. S1/S2 are heard. No murmurs gallops or rubs. LUNGS: Clear to auscultation bilaterally. No wheeze, rhonchi or rales. No use of accessory muscles on inspiration or expiration. ABDOMEN: Soft, nontender. Nondistended. Bowel sounds heard in all 4 quadrants. No organomegaly or masses. Negative rebound, negative guarding EXTREMITIES: No edema, pulses are equal bilaterally. No cyanosis or clubbing NEUROLOGY: Mood and affect appear appropriate. Cranial nerves II through XII grossly intact moving all extremities, speech is clear Urinary Catheter: No Vascular Central Line Catheter: No A/P Assessment and Plan Inability to care for self, unsafe discharge due to cognition Initially he was indicated patient cannot walk, patient is walking at this time, PT and OT recommending supervision at home for safety Speech therapy following the patient intermittently for cognitive evaluations. 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 MIni mental state 28/30, recommended avoid antipsychotics and benzodiazepine. Recommending Depakote or carbamazepine Patient is medically stable for discharge, however due to underlying psychiatric/cognition patient is unsafe discharge until arrangements made by case management Case management for discharge planning Neuropsychiatry evaluated the patient recommended patient may improve with treatment, however indicates avoid benzodiazepines and antipsychotics Continue Prozac 40 mg daily Depakene 500 mg twice daily Seroquel 100 mg twice daily *Discussed with psychiatry again about patient's cognition issues. He indicated that the patient lacks capacity for signing AMA or to participate in discharge plan. He is recommending that he would invite the ethics committee to the hospital to have a discussion about patient care *Consulted case management for ethics committee review, awaiting response Mild malnutrition, secondary to poor by mouth intake Albumin 2.8 Prealbumin 19 However, patient actually has increase in weight of 6 pounds since admission. In the last 3 days it would appear that she's gained another 6 pounds Continue Remeron Dietary consulted who recommended ensure with breakfast lunch and there. May have muffin at bedtime, daily vitamin Recurrent falls, Patient moved close to nursing station Patient does state that she is having neck pain Patient denies any neurological symptoms of weakness, paresthesia, loss of bowel or bladder control Orthostatic vitals do show drop in systolic blood pressure when standing. Improved after hydration Status post 2 L normal saline and continue monitor orthostatic vitals MRI of the neck. Multilevel degenerative changes. Mild degree of canal stenosis C5-C6, anterior fusion C6-C7 MRI of thoracic and lumbar spine do not indicate any acute abnormality Clavicle x-ray shows nonacute distal clavicle fracture. Carotid ultrasound was unremarkable Echocardiogram indicate ejection fraction 50-55% without any abnormalities Physical therapy ordered for 5 days a week Multiple traumatic injuries, Patient laceration, subdural hemorrhage, ventricular hemorrhage, nasal fracture, C6 fracture, C1-C2 subluxation, C4 transverse process fracture, right rib fracture, L1 transverse process fracture, right pubic rami fracture Continue c-collar this time, however patient does not wear Follow-up cervical spine CT indicates no evidence of acute fracture. Postsurgical changes Specialist no longer following patient, patient will require outpatient follow-up if discharge Right breast abscess, improved Physical exam patient does have a erythematous area with drainage Ultrasound does show complex loculated collection measuring 2.4 x 1.7 x 1.8 cm. Representing breast abscess Status post Augmentin 500 mg twice daily for 10 days., Bactrim DS for 18 days Gen. surgery consulted who recommends no intervention at this time, Soft tissue ultrasound shows a improvement of the fluid collection. Hypothyroidism TSH 5.11 Free T4 0.57, free T3 1 0.47 Levothyroxine 25 g daily Monitor TSH every 6-8 weeks Hypertension, Amlodipine 10 mg daily DVT prevention Patient ambulating Sequential compression devices while in bed Records are reviewed. Case management for discharge planning. No change in current treatment plan. Discharge Planning Case management for discharge planning, Conrado Mariee Dec 27, 2017 07:30
[2017-12-27] MEDS: FLUoxetine HCL 20 MG CAP PO SCH (07:44)
[2017-12-27] MEDS: MULTIVITAMIN TAB PO SCH (07:44)
[2017-12-27] MEDS: VALPROIC ACID 250 MG CAP PO SCH ×2 (07:44→19:49)
[2017-12-27] MEDS: QUEtiapine FUMARATE 100 MG TAB PO SCH ×2 (07:45→19:48)
[2017-12-27 08:00] VITALS: BP 132/87; PULSE 81; RESP 18; TEMP 98.1; O2SAT 96
[2017-12-27] MEDS: MIRTAZAPINE 15 MG TAB PO SCH (19:48)
[2017-12-27 20:18] VITALS: BP 156/102; PULSE 84; RESP 20; TEMP 98.4; O2SAT 98
[2017-12-28] MEDS: LEVOTHYROXINE SODIUM 25 MCG TAB PO SCH (05:44)
[2017-12-28 08:00] VITALS: BP 132/84; PULSE 80; RESP 18; TEMP 98.2; O2SAT 97
[2017-12-28] MEDS: VALPROIC ACID 250 MG CAP PO SCH ×2 (10:09→22:15)
[2017-12-28] MEDS: FLUoxetine HCL 20 MG CAP PO SCH (10:10)
[2017-12-28] MEDS: MULTIVITAMIN TAB PO SCH (10:10)
[2017-12-28] MEDS: QUEtiapine FUMARATE 100 MG TAB PO SCH ×2 (10:10→22:15)
--- NOTE | 2017-12-28 13:35 | HHI.PR ---
Subjective Remarks Follow-up unsafe discharge due to cognition and multiple falls. Patient seen and examined, lying in bed comfortably. Denies any acute events. Pleasant. Denies any pain. Eating well. Vital signs are stable. Objective Vitals Vital Signs Date Time Temp Pulse Resp B/P (MAP) Pulse Ox O2 Delivery O2 Flow Rate FiO2 12/28/17 08:00 98.2 80 18 132/84 (100) 97 12/27/17 20:18 98.4 84 20 156/102 (120) 98 I/O 12/27/17 12/27/17 12/27/17 12/28/17 12/28/17 12/28/17 07:00 15:00 23:00 07:00 15:00 23:00 Output Total 1 ml Balance -1 ml Output Urine Total 1 ml # Voids 2 Imaging Last Impressions Clavicle X-Ray 12/16/17 0000 Signed Impressions: Service Date/Time: December 19:51 - CONCLUSION: Distal clavicle is fractured but this appears nonacute. No acute fracture demonstrated. Jovany Hayes MD Thoracic Spine MRI 12/01/17 0000 Signed Impressions: Service Date/Time: Friday, December 01, 2017 15:10 - CONCLUSION: Negative for acute process. Vimal Taylor MD FACR Lumbar Spine MRI 12/01/17 0000 Signed Impressions: Service Date/Time: Friday, December 01, 2017 15:10 - CONCLUSION: Negative MRI of the lumbar spine. Vimal Taylor MD FACR Carotid Artery Ultrasound 11/30/17 0000 Signed Impressions: Service Date/Time: Thursday, November 30, 2017 14:34 - CONCLUSION: 1. Mild plaque with no hemodynamically significant stenosis. Vertebral artery flow antegrade. Fadi Carolina MD Cervical Spine MRI 11/28/17 0000 Signed Impressions: Service Date/Time: Tuesday, November 28, 2017 15:10 - CONCLUSION: 1. Multilevel posterior disc osteophyte complexes as described above. 2. Anterior fusion C6- 7. Dylon Haddad MD Knee X-Ray 11/02/17 0000 Signed Impressions: Service Date/Time: Thursday, November 02, 2017 18:51 - CONCLUSION: Intact right knee. Jovany Hayes MD Head CT 11/02/17 0000 Signed Impressions: Service Date/Time: Thursday, November 02, 2017 18:35 - CONCLUSION: 1. No bleed or other acute intracranial abnormality. 2. Previously seen intracranial hemorrhage has resolved. A small area of chronic encephalomalacia has developed of the right frontal lobe. 3. Chronic periventricular white matter changes are again noted. Jovany Hayes MD Breast Ultrasound 10/15/17 0000 Signed Impressions: Service Date/Time: Sunday, October 15, 2017 09:06 - CONCLUSION: Persistent subcutaneous collection at the 12:00 position of the right breast. It has slightly decreased in size since the study dated 09/23/2017 and could represent an infectious process. Consider followup to confirm resolution. Jovany Quezada MD Chest X-Ray 09/03/17 0000 Signed Impressions: Service Date/Time: Sunday, September 03, 2017 17:02 - CONCLUSION: 1. Mild edema pattern. Subsegmental basilar airspace disease most characteristic of atelectasis.. Fadi Carolina MD Cervical Spine CT 09/02/17 0000 Signed Impressions: Service Date/Time: August 12:56 - CONCLUSION: Postsurgical changes from anterior cervical plate at C6-7. No evidence of compression deformity or spondylolisthesis. Arun Regan MD Pelvis X-Ray 06/30/17 0000 Signed Impressions: Service Date/Time: Friday, June 30, 2017 12:17 - CONCLUSION: No significant change has occurred. Carlos Capps MD Objective Remarks GENERAL: Well-nourished, well-developed female in [facility]. SKIN: Warm and dry. No rash. HEENT: Normocephalic. Atraumatic. Pupils equal and round. No scleral icterus. No injection or drainage. No nasal bleeding or discharge. Mucous membranes pink and moist. NECK: Supple. Trachea midline. CARDIOVASCULAR: Regular rate and rhythm. S1, S2 noted. No murmur appreciated. RESPIRATORY: No accessory muscle use. Clear to auscultation. Breath sounds equal bilaterally. GASTROINTESTINAL: Abdomen soft, non-tender, nondistended. Normoactive bowel sounds x4. No guarding noted. MUSCULOSKELETAL: No obvious deformities. Extremities without clubbing, cyanosis , or edema. NEUROLOGICAL: Awake and alert. No obvious cranial nerve deficits. Motor grossly within normal limits. 5/5 muscle strength in bilateral upper and lower extremities. Normal speech. PSYCHIATRIC: Appropriate mood and affect. A/P Problem List: (1) Alcohol dependence in controlled environment ICD Code: F10.20 - Alcohol dependence, uncomplicated Status: Chronic (2) Facial injury ICD Code: S09.93XA - Unspecified injury of face, initial encounter Status: Acute (3) Fall ICD Code: W19.XXXA - Unspecified fall, initial encounter Status: Acute (4) Hypertension ICD Code: I10 - Essential (primary) hypertension Status: Acute (5) Pelvic fracture ICD Code: S32.9XXA - Fracture of unspecified parts of lumbosacral spine and pelvis, initial encounter for closed fracture Status: Acute (6) C1-C2 subluxation ICD Code: S13.120A - Subluxation of C1/C2 cervical vertebrae, initial encounter Status: Acute (7) C6 cervical fracture ICD Code: S12.500A - Unspecified displaced fracture of sixth cervical vertebra , initial encounter for closed fracture Status: Acute (8) Traumatic brain injury ICD Code: S06.9X9A - Unspecified intracranial injury with loss of consciousness of unspecified duration, initial encounter Status: Acute (9) Nasal fracture ICD Code: S02.2XXA - Fracture of nasal bones, initial encounter for closed fracture Status: Acute (10) Mild neurocognitive disorder ICD Code: G31.84 - Mild cognitive impairment, so stated Status: Acute (11) Intracranial bleed ICD Code: I62.9 - Nontraumatic intracranial hemorrhage, unspecified Status: Acute Assessment and Plan Inability to care for self, unsafe discharge due to cognition PT and OT recommending supervision at home for safety Speech therapy following the patient intermittently for cognitive evaluations. 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 Mini mental state 28/30, recommended avoid antipsychotics and benzodiazepine. Recommending Depakote or carbamazepine Patient is medically stable for discharge, however due to underlying psychiatric/cognition patient is unsafe discharge until arrangements made by case management. Case management for discharge planning. Neuropsychiatry evaluated the patient recommended patient may improve with treatment, however indicates avoid benzodiazepines and antipsychotics Continue Prozac 40 mg daily Depakene 500 mg twice daily Seroquel 100 mg twice daily *Psychiatry indicated that the patient lacks capacity for signing AMA or to participate in discharge plan. He is recommending that he would invite the ethics committee to the hospital to have a discussion about patient care *Consulted case management for ethics committee review, awaiting response Recurrent falls Patient moved close to nursing station Patient denies any neurological symptoms of weakness, paresthesia, loss of bowel or bladder control Orthostatic vitals do show drop in systolic blood pressure when standing. Improved after hydration MRI of the neck. Multilevel degenerative changes. Mild degree of canal stenosis C5-C6, anterior fusion C6-C7 MRI of thoracic and lumbar spine do not indicate any acute abnormality Carotid ultrasound was unremarkable Echocardiogram indicate ejection fraction 50-55% without any abnormalities Physical therapy ordered for 5 days a week Mild malnutrition, secondary to poor by mouth intake Albumin 2.8 Prealbumin 19 However, patient actually has increase in weight of 6 pounds since admission. In the last few days it would appear that she's gained another 6 pounds Continue Remeron Dietary consulted who recommended ensure with breakfast lunch and there. May have muffin at bedtime, daily vitamin Multiple traumatic injuries Patient laceration, subdural hemorrhage, ventricular hemorrhage, nasal fracture, C6 fracture, C1-C2 subluxation, C4 transverse process fracture, right rib fracture, L1 transverse process fracture, right pubic rami fracture Continue c-collar this time, however patient does not wear Follow-up cervical spine CT indicates no evidence of acute fracture. Postsurgical changes Specialist no longer following patient, patient will require outpatient follow-up if discharge Right breast abscess, Improved. Physical exam shows improvement. Ultrasound does show complex loculated collection measuring 2.4 x 1.7 x 1.8 cm. Representing breast abscess Status post Augmentin 500 mg twice daily for 10 days (end date 10/25/17). Finished Bactrim DS for 18 days Gen. surgery consulted who recommends no intervention at this time. Soft tissue ultrasound shows a improvement of the fluid collection. Hypothyroidism TSH 5.11 Free T4 0.57, free T3 1 0.47 Levothyroxine 25 g daily Monitor TSH every 6-8 weeks Hypertension Amlodipine 10 mg daily DVT prevention Patient ambulating Sequential compression devices while in bed Records were reviewed. Awaiting case management for discharge planning, No change in current treatment plan. Discharge Planning Due to underlying psychiatric/cognition patient is unsafe discharge until arrangements made by case management. Problem Qualifiers (1) Hypertension: Qualified Codes: I10 - Essential (primary) hypertension Alyssa Means Dec 28, 2017 13:35
[2017-12-28 20:00] VITALS: BP 132/84; PULSE 81; RESP 16; TEMP 97.3; O2SAT 94
[2017-12-28] MEDS: MIRTAZAPINE 15 MG TAB PO SCH (22:15)
[2017-12-28] MEDS: ACETAMINOPHEN 325 MG TAB PO PRN (22:20)
[2017-12-29] MEDS: LEVOTHYROXINE SODIUM 25 MCG TAB PO SCH (06:51)
[2017-12-29] MEDS: MULTIVITAMIN TAB PO SCH (09:54)
[2017-12-29] MEDS: QUEtiapine FUMARATE 100 MG TAB PO SCH ×2 (09:54→20:39)
[2017-12-29] MEDS: FLUoxetine HCL 20 MG CAP PO SCH (09:55)
[2017-12-29] MEDS: VALPROIC ACID 250 MG CAP PO SCH ×2 (09:55→20:40)
--- NOTE | 2017-12-29 09:56 | HHI.PR ---
Subjective Remarks Follow-up unsafe discharge due to cognition. Patient seen and examined, sitting up in bed comfortably eating breakfast. Denies any acute events overnight. No change in clinical condition. Patient states she has been feeling overall improved and stronger each day. Vital signs are stable. Afebrile. Objective Vitals Vital Signs Date Time Temp Pulse Resp B/P (MAP) Pulse Ox O2 Delivery O2 Flow Rate FiO2 12/28/17 20:00 97.3 81 16 132/84 (100) 94 I/O 12/28/17 12/28/17 12/28/17 12/29/17 12/29/17 12/29/17 07:00 15:00 23:00 07:00 15:00 23:00 Intake Total 200 ml Balance 200 ml Intake Oral 200 ml # Voids 2 1 # Bowel Movements 0 Imaging Last Impressions Clavicle X-Ray 12/16/17 0000 Signed Impressions: Service Date/Time: December 19:51 - CONCLUSION: Distal clavicle is fractured but this appears nonacute. No acute fracture demonstrated. Jovany Hayes MD Thoracic Spine MRI 12/01/17 0000 Signed Impressions: Service Date/Time: Friday, December 01, 2017 15:10 - CONCLUSION: Negative for acute process. Vimal Taylor MD FACR Lumbar Spine MRI 12/01/17 0000 Signed Impressions: Service Date/Time: Friday, December 01, 2017 15:10 - CONCLUSION: Negative MRI of the lumbar spine. Vimal Taylor MD FACR Carotid Artery Ultrasound 11/30/17 0000 Signed Impressions: Service Date/Time: Thursday, November 30, 2017 14:34 - CONCLUSION: 1. Mild plaque with no hemodynamically significant stenosis. Vertebral artery flow antegrade. Fadi Carolina MD Cervical Spine MRI 11/28/17 0000 Signed Impressions: Service Date/Time: Tuesday, November 28, 2017 15:10 - CONCLUSION: 1. Multilevel posterior disc osteophyte complexes as described above. 2. Anterior fusion C6- 7. Dylon Haddad MD Knee X-Ray 11/02/17 0000 Signed Impressions: Service Date/Time: Thursday, November 02, 2017 18:51 - CONCLUSION: Intact right knee. Jovany Hayes MD Head CT 11/02/17 0000 Signed Impressions: Service Date/Time: Thursday, November 02, 2017 18:35 - CONCLUSION: 1. No bleed or other acute intracranial abnormality. 2. Previously seen intracranial hemorrhage has resolved. A small area of chronic encephalomalacia has developed of the right frontal lobe. 3. Chronic periventricular white matter changes are again noted. Jovany Hayes MD Breast Ultrasound 10/15/17 0000 Signed Impressions: Service Date/Time: Sunday, October 15, 2017 09:06 - CONCLUSION: Persistent subcutaneous collection at the 12:00 position of the right breast. It has slightly decreased in size since the study dated 09/23/2017 and could represent an infectious process. Consider followup to confirm resolution. Jovany Quezada MD Chest X-Ray 09/03/17 0000 Signed Impressions: Service Date/Time: Sunday, September 03, 2017 17:02 - CONCLUSION: 1. Mild edema pattern. Subsegmental basilar airspace disease most characteristic of atelectasis.. Fadi Carolina MD Cervical Spine CT 09/02/17 0000 Signed Impressions: Service Date/Time: August 12:56 - CONCLUSION: Postsurgical changes from anterior cervical plate at C6-7. No evidence of compression deformity or spondylolisthesis. Arun Regan MD Pelvis X-Ray 06/30/17 0000 Signed Impressions: Service Date/Time: Friday, June 30, 2017 12:17 - CONCLUSION: No significant change has occurred. Carlos Capps MD Objective Remarks GENERAL: Well-nourished, well-developed female in [facility]. SKIN: Warm and dry. No rash. HEENT: Normocephalic. Atraumatic. Pupils equal and round. No scleral icterus. No injection or drainage. No nasal bleeding or discharge. Mucous membranes pink and moist. NECK: Supple. Trachea midline. CARDIOVASCULAR: Regular rate and rhythm. S1, S2 noted. No murmur appreciated. RESPIRATORY: No accessory muscle use. Clear to auscultation. Breath sounds equal bilaterally. GASTROINTESTINAL: Abdomen soft, non-tender, nondistended. Normoactive bowel sounds x4. No guarding noted. MUSCULOSKELETAL: No obvious deformities. Extremities without clubbing, cyanosis , or edema. NEUROLOGICAL: Awake and alert. No obvious cranial nerve deficits. Motor grossly within normal limits. 5/5 muscle strength in bilateral upper and lower extremities. Normal speech. PSYCHIATRIC: Appropriate mood and affect. A/P Problem List: (1) Alcohol dependence in controlled environment ICD Code: F10.20 - Alcohol dependence, uncomplicated Status: Chronic (2) Facial injury ICD Code: S09.93XA - Unspecified injury of face, initial encounter Status: Acute (3) Fall ICD Code: W19.XXXA - Unspecified fall, initial encounter Status: Acute (4) Hypertension ICD Code: I10 - Essential (primary) hypertension Status: Acute (5) Pelvic fracture ICD Code: S32.9XXA - Fracture of unspecified parts of lumbosacral spine and pelvis, initial encounter for closed fracture Status: Acute (6) C1-C2 subluxation ICD Code: S13.120A - Subluxation of C1/C2 cervical vertebrae, initial encounter Status: Acute (7) C6 cervical fracture ICD Code: S12.500A - Unspecified displaced fracture of sixth cervical vertebra , initial encounter for closed fracture Status: Acute (8) Traumatic brain injury ICD Code: S06.9X9A - Unspecified intracranial injury with loss of consciousness of unspecified duration, initial encounter Status: Acute (9) Nasal fracture ICD Code: S02.2XXA - Fracture of nasal bones, initial encounter for closed fracture Status: Acute (10) Mild neurocognitive disorder ICD Code: G31.84 - Mild cognitive impairment, so stated Status: Acute (11) Intracranial bleed ICD Code: I62.9 - Nontraumatic intracranial hemorrhage, unspecified Status: Acute Assessment and Plan Inability to care for self, unsafe discharge due to cognition PT and OT recommending supervision at home for safety Speech therapy following the patient intermittently for cognitive evaluations. 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 Mini mental state 28/30, recommended avoid antipsychotics and benzodiazepine. Recommending Depakote or carbamazepine Patient is medically stable for discharge, however due to underlying psychiatric/cognition patient is unsafe discharge until arrangements made by case management. Case management for discharge planning. Neuropsychiatry evaluated the patient recommended patient may improve with treatment, however indicates avoid benzodiazepines and antipsychotics Continue Prozac 40 mg daily Depakene 500 mg twice daily Seroquel 100 mg twice daily *Psychiatry indicated that the patient lacks capacity for signing AMA or to participate in discharge plan. He is recommending that he would invite the ethics committee to the hospital to have a discussion about patient care *Consulted case management for ethics committee review, awaiting response Recurrent falls Patient moved close to nursing station Patient denies any neurological symptoms of weakness, paresthesia, loss of bowel or bladder control Orthostatic vitals do show drop in systolic blood pressure when standing. Improved after hydration MRI of the neck. Multilevel degenerative changes. Mild degree of canal stenosis C5-C6, anterior fusion C6-C7 MRI of thoracic and lumbar spine do not indicate any acute abnormality Carotid ultrasound was unremarkable Echocardiogram indicate ejection fraction 50-55% without any abnormalities Physical therapy ordered for 5 days a week Mild malnutrition, secondary to poor by mouth intake Albumin 2.8 Prealbumin 19 However, patient actually has increase in weight of 6 pounds since admission. In the last few days it would appear that she's gained another 6 pounds Continue Remeron Dietary consulted who recommended ensure with breakfast lunch and there. May have muffin at bedtime, daily vitamin Multiple traumatic injuries Patient laceration, subdural hemorrhage, ventricular hemorrhage, nasal fracture, C6 fracture, C1-C2 subluxation, C4 transverse process fracture, right rib fracture, L1 transverse process fracture, right pubic rami fracture Continue c-collar this time, however patient does not wear Follow-up cervical spine CT indicates no evidence of acute fracture. Postsurgical changes Specialist no longer following patient, patient will require outpatient follow-up if discharge Right breast abscess, Improved. Physical exam shows improvement. Ultrasound does show complex loculated collection measuring 2.4 x 1.7 x 1.8 cm. Representing breast abscess Status post Augmentin 500 mg twice daily for 10 days (end date 10/25/17). Finished Bactrim DS for 18 days Gen. surgery consulted who recommends no intervention at this time. Soft tissue ultrasound shows a improvement of the fluid collection. Hypothyroidism TSH 5.11 Free T4 0.57, free T3 1 0.47 Levothyroxine 25 g daily Monitor TSH every 6-8 weeks Hypertension Amlodipine 10 mg daily DVT prevention Patient ambulating Sequential compression devices while in bed Records were reviewed. Awaiting case management for discharge planning, No change in current treatment plan. Discharge Planning Due to underlying psychiatric/cognition patient is unsafe discharge until arrangements made by case management. Problem Qualifiers (1) Hypertension: Qualified Codes: I10 - Essential (primary) hypertension Alyssa Means Dec 29, 2017 09:56
[2017-12-29 09:57] VITALS: BP 143/87; PULSE 81; RESP 16; TEMP 97.6; O2SAT 92
[2017-12-29 20:00] VITALS: BP 123/79; PULSE 80; RESP 16; TEMP 97.5; O2SAT 94
[2017-12-29] MEDS: MIRTAZAPINE 15 MG TAB PO SCH (20:39)
[2017-12-30] VITALS: BP 158/95; PULSE 67; RESP 16; TEMP 96.3; O2SAT 95
[2017-12-30] MEDS: LEVOTHYROXINE SODIUM 25 MCG TAB PO SCH (05:44)
[2017-12-30 08:30] VITALS: BP 118/89; PULSE 81; RESP 18; TEMP 96.8; O2SAT 94
[2017-12-30] MEDS: VALPROIC ACID 250 MG CAP PO SCH ×2 (09:43→22:00)
[2017-12-30] MEDS: FLUoxetine HCL 20 MG CAP PO SCH (09:43)
[2017-12-30] MEDS: QUEtiapine FUMARATE 100 MG TAB PO SCH ×2 (09:43→22:00)
[2017-12-30] MEDS: MULTIVITAMIN TAB PO SCH (09:43)
--- NOTE | 2017-12-30 10:43 | HHI.PR ---
Subjective Remarks Follow-up unsafe discharge due to cognition. Patient seen and examined, lying in bed comfortably. In no apparent distress. No acute events overnight. No change in clinical condition. Patient feeling stronger every day. Eating well , denies any abdominal pain, nausea or vomiting. Objective Vitals Vital Signs Date Time Temp Pulse Resp B/P (MAP) Pulse Ox O2 Delivery O2 Flow Rate FiO2 12/30/17 08:30 96.8 81 18 118/89 (99) 94 12/30/17 00:00 96.3 67 16 158/95 (116) 95 12/29/17 20:00 97.5 80 16 123/79 (94) 94 I/O 12/29/17 12/29/17 12/29/17 12/30/17 12/30/17 12/30/17 07:00 15:00 23:00 07:00 15:00 23:00 Intake Total 200 ml 300 ml 120 ml Balance 200 ml 300 ml 120 ml Intake Oral 200 ml 300 ml 120 ml # Voids 1 6 2 # Bowel Movements 0 1 0 Imaging Last Impressions Clavicle X-Ray 12/16/17 0000 Signed Impressions: Service Date/Time: December 19:51 - CONCLUSION: Distal clavicle is fractured but this appears nonacute. No acute fracture demonstrated. Jovany Hayes MD Thoracic Spine MRI 12/01/17 0000 Signed Impressions: Service Date/Time: Friday, December 01, 2017 15:10 - CONCLUSION: Negative for acute process. Vimal Taylor MD FACR Lumbar Spine MRI 12/01/17 0000 Signed Impressions: Service Date/Time: Friday, December 01, 2017 15:10 - CONCLUSION: Negative MRI of the lumbar spine. Vimal Taylor MD FACR Carotid Artery Ultrasound 11/30/17 0000 Signed Impressions: Service Date/Time: Thursday, November 30, 2017 14:34 - CONCLUSION: 1. Mild plaque with no hemodynamically significant stenosis. Vertebral artery flow antegrade. Fadi Carolina MD Cervical Spine MRI 11/28/17 0000 Signed Impressions: Service Date/Time: Tuesday, November 28, 2017 15:10 - CONCLUSION: 1. Multilevel posterior disc osteophyte complexes as described above. 2. Anterior fusion C6- 7. Dylon Haddad MD Knee X-Ray 11/02/17 Signed Impressions: Service Date/Time: Thursday, November 02, 2017 18:51 - CONCLUSION: Intact right knee. Jovany Hayes MD Head CT 11/02/17 0000 Signed Impressions: Service Date/Time: Thursday, November 02, 2017 18:35 - CONCLUSION: 1. No bleed or other acute intracranial abnormality. 2. Previously seen intracranial hemorrhage has resolved. A small area of chronic encephalomalacia has developed of the right frontal lobe. 3. Chronic periventricular white matter changes are again noted. Jovany Hayes MD Breast Ultrasound 10/15/17 Signed Impressions: Service Date/Time: Sunday, October 15, 2017 09:06 - CONCLUSION: Persistent subcutaneous collection at the 12:00 position of the right breast. It has slightly decreased in size since the study dated 09/23/2017 and could represent an infectious process. Consider followup to confirm resolution. Jovany Quezada MD Chest X-Ray 09/03/17 Signed Impressions: Service Date/Time: Sunday, September 03, 2017 17:02 - CONCLUSION: 1. Mild edema pattern. Subsegmental basilar airspace disease most characteristic of atelectasis.. Fadi Carolina MD Cervical Spine CT 09/02/17 0000 Signed Impressions: Service Date/Time: August 12:56 - CONCLUSION: Postsurgical changes from anterior cervical plate at C6-7. No evidence of compression deformity or spondylolisthesis. Arun Regan MD Pelvis X-Ray 06/30/17 0000 Signed Impressions: Service Date/Time: Friday, June 30, 2017 12:17 - CONCLUSION: No significant change has occurred. Carlos Capps MD Objective Remarks GENERAL: Well-nourished, well-developed female in NAD. SKIN: Warm and dry. No rash. HEENT: Normocephalic. Atraumatic. Pupils equal and round. No scleral icterus. No injection or drainage. No nasal bleeding or discharge. Mucous membranes pink and moist. NECK: Supple. Trachea midline. CARDIOVASCULAR: Regular rate and rhythm. S1, S2 noted. No murmur appreciated. RESPIRATORY: No accessory muscle use. Clear to auscultation. Breath sounds equal bilaterally. GASTROINTESTINAL: Abdomen soft, non-tender, nondistended. Normoactive bowel sounds x4. No guarding noted. MUSCULOSKELETAL: No obvious deformities. Extremities without clubbing, cyanosis , or edema. NEUROLOGICAL: Awake and alert. No obvious cranial nerve deficits. Motor grossly within normal limits. 5/5 muscle strength in bilateral upper and lower extremities. Normal speech. PSYCHIATRIC: Appropriate mood and affect. A/P Problem List: (1) Alcohol dependence in controlled environment ICD Code: F10.20 - Alcohol dependence, uncomplicated Status: Chronic (2) Facial injury ICD Code: S09.93XA - Unspecified injury of face, initial encounter Status: Acute (3) Fall ICD Code: W19.XXXA - Unspecified fall, initial encounter Status: Acute (4) Hypertension ICD Code: I10 - Essential (primary) hypertension Status: Acute (5) Pelvic fracture ICD Code: S32.9XXA - Fracture of unspecified parts of lumbosacral spine and pelvis, initial encounter for closed fracture Status: Acute (6) C1-C2 subluxation ICD Code: S13.120A - Subluxation of C1/C2 cervical vertebrae, initial encounter Status: Acute (7) C6 cervical fracture ICD Code: S12.500A - Unspecified displaced fracture of sixth cervical vertebra , initial encounter for closed fracture Status: Acute (8) Traumatic brain injury ICD Code: S06.9X9A - Unspecified intracranial injury with loss of consciousness of unspecified duration, initial encounter Status: Acute (9) Nasal fracture ICD Code: S02.2XXA - Fracture of nasal bones, initial encounter for closed fracture Status: Acute (10) Mild neurocognitive disorder ICD Code: G31.84 - Mild cognitive impairment, so stated Status: Acute (11) Intracranial bleed ICD Code: I62.9 - Nontraumatic intracranial hemorrhage, unspecified Status: Acute Assessment and Plan Inability to care for self, unsafe discharge due to cognition PT and OT recommending supervision at home for safety Speech therapy following the patient intermittently for cognitive evaluations. 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 Mini mental state 28/30, recommended avoid antipsychotics and benzodiazepine. Recommending Depakote or carbamazepine Patient is medically stable for discharge, however due to underlying psychiatric/cognition patient is unsafe discharge until arrangements made by case management. Case management for discharge planning. Neuropsychiatry evaluated the patient recommended patient may improve with treatment, however indicates avoid benzodiazepines and antipsychotics Continue Prozac 40 mg daily Depakene 500 mg twice daily Seroquel 100 mg twice daily *Psychiatry indicated that the patient lacks capacity for signing AMA or to participate in discharge plan. He is recommending that he would invite the ethics committee to the hospital to have a discussion about patient care *Consulted case management for ethics committee review, awaiting response Recurrent falls Patient moved close to nursing station Patient denies any neurological symptoms of weakness, paresthesia, loss of bowel or bladder control Orthostatic vitals do show drop in systolic blood pressure when standing. Improved after hydration MRI of the neck. Multilevel degenerative changes. Mild degree of canal stenosis C5-C6, anterior fusion C6-C7 MRI of thoracic and lumbar spine do not indicate any acute abnormality Carotid ultrasound was unremarkable Echocardiogram indicate ejection fraction 50-55% without any abnormalities Physical therapy ordered for 5 days a week Mild malnutrition, secondary to poor by mouth intake Albumin 2.8 Prealbumin 19 However, patient actually has increase in weight of 6 pounds since admission. In the last few days it would appear that she's gained another 6 pounds Continue Remeron Dietary consulted who recommended ensure with breakfast lunch and there. May have muffin at bedtime, daily vitamin Multiple traumatic injuries Patient laceration, subdural hemorrhage, ventricular hemorrhage, nasal fracture, C6 fracture, C1-C2 subluxation, C4 transverse process fracture, right rib fracture, L1 transverse process fracture, right pubic rami fracture Continue c-collar this time, however patient does not wear Follow-up cervical spine CT indicates no evidence of acute fracture. Postsurgical changes Specialist no longer following patient, patient will require outpatient follow-up if discharge Right breast abscess, Improved. Physical exam shows improvement. Ultrasound does show complex loculated collection measuring 2.4 x 1.7 x 1.8 cm. Representing breast abscess Status post Augmentin 500 mg twice daily for 10 days (end date 10/25/17). Finished Bactrim DS for 18 days Gen. surgery consulted who recommends no intervention at this time. Soft tissue ultrasound shows a improvement of the fluid collection. Hypothyroidism TSH 5.11 Free T4 0.57, free T3 1 0.47 Levothyroxine 25 g daily Monitor TSH every 6-8 weeks Hypertension Amlodipine 10 mg daily DVT prevention Patient ambulating Sequential compression devices while in bed Records were reviewed. Awaiting case management for discharge planning, No change in current treatment plan. Discharge Planning Due to underlying psychiatric/cognition patient is unsafe discharge until arrangements made by case management. Problem Qualifiers (1) Hypertension: Qualified Codes: I10 - Essential (primary) hypertension Alyssa Means Dec 30, 2017 10:43
[2017-12-30 20:00] VITALS: BP 155/94; PULSE 83; RESP 20; TEMP 96.5; O2SAT 96
[2017-12-30] MEDS: MIRTAZAPINE 15 MG TAB PO SCH (22:00)
[2017-12-31] VITALS: BP 121/81; PULSE 73; RESP 20; TEMP 96.5; O2SAT 94
[2017-12-31] MEDS: LEVOTHYROXINE SODIUM 25 MCG TAB PO SCH (05:21)
[2017-12-31] MEDS: FLUoxetine HCL 20 MG CAP PO SCH (08:47)
[2017-12-31] MEDS: VALPROIC ACID 250 MG CAP PO SCH ×2 (08:47→21:16)
[2017-12-31] MEDS: QUEtiapine FUMARATE 100 MG TAB PO SCH ×2 (08:47→21:16)
[2017-12-31] MEDS: MULTIVITAMIN TAB PO SCH (08:47)
[2017-12-31] MEDS: ERGOCALCIFEROL (VIT D2) 50,000 UNIT CAP PO SCH (08:48)
[2017-12-31 09:00] VITALS: BP 142/79; PULSE 67; RESP 16; TEMP 96.3; O2SAT 94
--- NOTE | 2017-12-31 11:15 | HHI.PR ---
Subjective Remarks Follow-up unsafe discharge due to cognition and multiple falls. Patient seen and examined, lying in bed comfortably. No reports of any acute events overnight. No falls for over a week now. Patient states she feels stronger. Tolerating p.o. intake, denies any abdominal pain, nausea or vomiting. Denies any chest pain. Vital signs are stable. Afebrile. Attempting to arrange outpatient mammogram. Objective Vitals Vital Signs Date Time Temp Pulse Resp B/P (MAP) Pulse Ox O2 Delivery O2 Flow Rate FiO2 12/31/17 09:00 96.3 67 16 142/79 (100) 94 12/31/17 00:00 96.5 73 20 121/81 (94) 94 12/30/17 20:00 96.5 83 20 155/94 (114) 96 I/O 12/30/17 12/30/17 12/30/17 12/31/17 12/31/17 12/31/17 07:00 15:00 23:00 07:00 15:00 23:00 Intake Total 120 ml 300 ml 720 ml 420 ml Balance 120 ml 300 ml 720 ml 420 ml Intake Oral 120 ml 300 ml 720 ml 420 ml # Voids 2 1 3 6 # Bowel Movements 0 1 3 Imaging Last Impressions Clavicle X-Ray 12/16/17 0000 Signed Impressions: Service Date/Time: December 19:51 - CONCLUSION: Distal clavicle is fractured but this appears nonacute. No acute fracture demonstrated. Jovany Hayes MD Thoracic Spine MRI 12/01/17 0000 Signed Impressions: Service Date/Time: Friday, December 01, 2017 15:10 - CONCLUSION: Negative for acute process. Vimal Taylor MD FACR Lumbar Spine MRI 12/01/17 0000 Signed Impressions: Service Date/Time: Friday, December 01, 2017 15:10 - CONCLUSION: Negative MRI of the lumbar spine. Vimal Taylor MD FACR Carotid Artery Ultrasound 11/30/17 0000 Signed Impressions: Service Date/Time: Thursday, November 30, 2017 14:34 - CONCLUSION: 1. Mild plaque with no hemodynamically significant stenosis. Vertebral artery flow antegrade. Fadi Carolina MD Cervical Spine MRI 11/28/17 0000 Signed Impressions: Service Date/Time: Tuesday, November 28, 2017 15:10 - CONCLUSION: 1. Multilevel posterior disc osteophyte complexes as described above. 2. Anterior fusion C6- 7. Dylon Haddad MD Knee X-Ray 11/02/17 0000 Signed Impressions: Service Date/Time: Thursday, November 02, 2017 18:51 - CONCLUSION: Intact right knee. Jovany Hayes MD Head CT 11/02/17 0000 Signed Impressions: Service Date/Time: Thursday, November 02, 2017 18:35 - CONCLUSION: 1. No bleed or other acute intracranial abnormality. 2. Previously seen intracranial hemorrhage has resolved. A small area of chronic encephalomalacia has developed of the right frontal lobe. 3. Chronic periventricular white matter changes are again noted. Jovany Hayes MD Breast Ultrasound 10/15/17 0000 Signed Impressions: Service Date/Time: Sunday, October 15, 2017 09:06 - CONCLUSION: Persistent subcutaneous collection at the 12:00 position of the right breast. It has slightly decreased in size since the study dated 09/23/2017 and could represent an infectious process. Consider followup to confirm resolution. Jovany Quezada MD Chest X-Ray 09/03/17 0000 Signed Impressions: Service Date/Time: Sunday, September 03, 2017 17:02 - CONCLUSION: 1. Mild edema pattern. Subsegmental basilar airspace disease most characteristic of atelectasis.. Fadi Carolina MD Cervical Spine CT 09/02/17 0000 Signed Impressions: Service Date/Time: August 12:56 - CONCLUSION: Postsurgical changes from anterior cervical plate at C6-7. No evidence of compression deformity or spondylolisthesis. Arun Regan MD Pelvis X-Ray 06/30/17 0000 Signed Impressions: Service Date/Time: Friday, June 30, 2017 12:17 - CONCLUSION: No significant change has occurred. Carlos Capps MD Objective Remarks GENERAL: Well-nourished, well-developed female in NAD. SKIN: Warm and dry. No rash. HEENT: Normocephalic. Atraumatic. Pupils equal and round. No scleral icterus. No injection or drainage. No nasal bleeding or discharge. Mucous membranes pink and moist. NECK: Supple. Trachea midline. CARDIOVASCULAR: Regular rate and rhythm. S1, S2 noted. No murmur appreciated. RESPIRATORY: No accessory muscle use. Clear to auscultation. Breath sounds equal bilaterally. GASTROINTESTINAL: Abdomen soft, non-tender, nondistended. Normoactive bowel sounds x4. No guarding noted. MUSCULOSKELETAL: No obvious deformities. Extremities without clubbing, cyanosis , or edema. NEUROLOGICAL: Awake and alert. No obvious cranial nerve deficits. Motor grossly within normal limits. 5/5 muscle strength in bilateral upper and lower extremities. Normal speech. PSYCHIATRIC: Appropriate mood and affect. A/P Problem List: (1) Alcohol dependence in controlled environment ICD Code: F10.20 - Alcohol dependence, uncomplicated Status: Chronic (2) Facial injury ICD Code: S09.93XA - Unspecified injury of face, initial encounter Status: Acute (3) Fall ICD Code: W19.XXXA - Unspecified fall, initial encounter Status: Acute (4) Hypertension ICD Code: I10 - Essential (primary) hypertension Status: Acute (5) Pelvic fracture ICD Code: S32.9XXA - Fracture of unspecified parts of lumbosacral spine and pelvis, initial encounter for closed fracture Status: Acute (6) C1-C2 subluxation ICD Code: S13.120A - Subluxation of C1/C2 cervical vertebrae, initial encounter Status: Acute (7) C6 cervical fracture ICD Code: S12.500A - Unspecified displaced fracture of sixth cervical vertebra , initial encounter for closed fracture Status: Acute (8) Traumatic brain injury ICD Code: S06.9X9A - Unspecified intracranial injury with loss of consciousness of unspecified duration, initial encounter Status: Acute (9) Nasal fracture ICD Code: S02.2XXA - Fracture of nasal bones, initial encounter for closed fracture Status: Acute (10) Mild neurocognitive disorder ICD Code: G31.84 - Mild cognitive impairment, so stated Status: Acute (11) Intracranial bleed ICD Code: I62.9 - Nontraumatic intracranial hemorrhage, unspecified Status: Acute Assessment and Plan Inability to care for self, unsafe discharge due to cognition PT and OT recommending supervision at home for safety Speech therapy following the patient intermittently for cognitive evaluations. 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 Mini mental state 28/30, recommended avoid antipsychotics and benzodiazepine. Recommending Depakote or carbamazepine Patient is medically stable for discharge, however due to underlying psychiatric/cognition patient is unsafe discharge until arrangements made by case management. Case management for discharge planning. Neuropsychiatry evaluated the patient recommended patient may improve with treatment, however indicates avoid benzodiazepines and antipsychotics Continue Prozac 40 mg daily Depakene 500 mg twice daily Seroquel 100 mg twice daily *Psychiatry indicated that the patient lacks capacity for signing AMA or to participate in discharge plan. He is recommending that he would invite the ethics committee to the hospital to have a discussion about patient care *Consulted case management for ethics committee review, awaiting response Recurrent falls. Resolved. Patient moved close to nursing station Patient denies any neurological symptoms of weakness, paresthesia, loss of bowel or bladder control Orthostatic vitals do show drop in systolic blood pressure when standing. Improved after hydration MRI of the neck. Multilevel degenerative changes. Mild degree of canal stenosis C5-C6, anterior fusion C6-C7 MRI of thoracic and lumbar spine do not indicate any acute abnormality Carotid ultrasound was unremarkable Echocardiogram indicate ejection fraction 50-55% without any abnormalities Physical therapy ordered for 5 days a week Mild malnutrition, secondary to poor by mouth intake Albumin 2.8 Prealbumin 19 After review of weight trend, has been gaining weight Continue Remeron Dietary consulted who recommended ensure with breakfast lunch and there. May have muffin at bedtime, daily vitamin Multiple traumatic injuries Patient laceration, subdural hemorrhage, ventricular hemorrhage, nasal fracture, C6 fracture, C1-C2 subluxation, C4 transverse process fracture, right rib fracture, L1 transverse process fracture, right pubic rami fracture Continue c-collar this time, however patient does not wear [place] [address]/24 indicates no evidence of acute fracture. Postsurgical changes Specialist no longer following patient, patient will require outpatient follow-up if discharge Right breast abscess, Improved. Physical exam shows improvement. Ultrasound does show complex loculated collection measuring 2.4 x 1.7 x 1.8 cm. Representing breast abscess Status post Augmentin 500 mg twice daily for 10 days (end date 10/25/17). Finished Bactrim DS for 18 days Gen. surgery consulted who recommends no intervention at this time. Soft tissue ultrasound shows a improvement of the fluid collection. Attempting to arrange outpatient mammogram. Continue to follow. Hypothyroidism TSH 5.11 Free T4 0.57, free T3 1 0.47 Levothyroxine 25 g daily Monitor TSH every 6-8 weeks Hypertension Amlodipine 10 mg daily DVT prevention Patient ambulating Sequential compression devices while in bed Records were reviewed. Awaiting case management for discharge planning, No change in current treatment plan. Discharge Planning Due to underlying psychiatric/cognition patient is unsafe discharge until arrangements made by case management. Problem Qualifiers (1) Hypertension: Qualified Codes: I10 - Essential (primary) hypertension Alyssa Means Dec 31, 2017 11:15
[2017-12-31 12:00] VITALS: BP 125/78; PULSE 79; RESP 16; TEMP 96.3; O2SAT 93
[2017-12-31 16:00] VITALS: BP 140/90; PULSE 79; RESP 16; TEMP 96.4; O2SAT 94
[2017-12-31 20:00] VITALS: BP 156/99; PULSE 74; RESP 20; TEMP 97.2; O2SAT 96
[2017-12-31] MEDS: MIRTAZAPINE 15 MG TAB PO SCH (21:16)
[2018-01-01] MEDS: LEVOTHYROXINE SODIUM 25 MCG TAB PO SCH (06:26)
[2018-01-01 07:50] VITALS: BP 129/80; PULSE 79; RESP 20; TEMP 97.7; O2SAT 93
[2018-01-01] MEDS: MULTIVITAMIN TAB PO SCH (09:57)
[2018-01-01] MEDS: VALPROIC ACID 250 MG CAP PO SCH ×2 (09:58→21:00)
[2018-01-01] MEDS: QUEtiapine FUMARATE 100 MG TAB PO SCH ×2 (09:58→20:59)
[2018-01-01] MEDS: FLUoxetine HCL 20 MG CAP PO SCH (09:58)
--- NOTE | 2018-01-01 12:56 | HHI.PR ---
Subjective Remarks Follow-up unsafe discharge due to cognition and multiple falls. Patient seen and examined, sitter at bedside. Patient states she slept well. Has been eating well. Denies any new changes. Improvement in strength. Tolerating p.o. intake well. No change in clinical condition. Objective Vitals Vital Signs Date Time Temp Pulse Resp B/P (MAP) Pulse Ox O2 Delivery O2 Flow Rate FiO2 01/01/18 07:50 97.7 79 20 129/80 (96) 93 12/31/17 20:00 97.2 74 20 156/99 (118) 96 12/31/17 16:00 96.4 79 16 140/90 (107) 94 I/O 12/31/17 12/31/17 12/31/17 01/01/18 01/01/18 01/01/18 07:00 15:00 23:00 07:00 15:00 23:00 Intake Total 420 ml 240 ml Balance 420 ml 240 ml Intake Oral 420 ml 240 ml # Voids 6 1 3 # Bowel Movements 3 0 Imaging Last Impressions Clavicle X-Ray 12/16/17 0000 Signed Impressions: Service Date/Time: December 19:51 - CONCLUSION: Distal clavicle is fractured but this appears nonacute. No acute fracture demonstrated. Jovany Hayes MD Thoracic Spine MRI 12/01/17 0000 Signed Impressions: Service Date/Time: Friday, December 01, 2017 15:10 - CONCLUSION: Negative for acute process. Vimal Taylor MD FACR Lumbar Spine MRI 12/01/17 0000 Signed Impressions: Service Date/Time: Friday, December 01, 2017 15:10 - CONCLUSION: Negative MRI of the lumbar spine. Vimal Taylor MD FACR Carotid Artery Ultrasound 11/30/17 0000 Signed Impressions: Service Date/Time: Thursday, November 30, 2017 14:34 - CONCLUSION: 1. Mild plaque with no hemodynamically significant stenosis. Vertebral artery flow antegrade. Fadi Carolina MD Cervical Spine MRI 11/28/17 0000 Signed Impressions: Service Date/Time: Tuesday, November 28, 2017 15:10 - CONCLUSION: 1. Multilevel posterior disc osteophyte complexes as described above. 2. Anterior fusion C6- 7. Dylon Haddad MD Knee X-Ray 11/02/17 0000 Signed Impressions: Service Date/Time: Thursday, November 02, 2017 18:51 - CONCLUSION: Intact right knee. Jovany Hayes MD Head CT 11/02/17 0000 Signed Impressions: Service Date/Time: Thursday, November 02, 2017 18:35 - CONCLUSION: 1. No bleed or other acute intracranial abnormality. 2. Previously seen intracranial hemorrhage has resolved. A small area of chronic encephalomalacia has developed of the right frontal lobe. 3. Chronic periventricular white matter changes are again noted. Jovany Hayes MD Breast Ultrasound 10/15/17 0000 Signed Impressions: Service Date/Time: Sunday, October 15, 2017 09:06 - CONCLUSION: Persistent subcutaneous collection at the 12:00 position of the right breast. It has slightly decreased in size since the study dated 09/23/2017 and could represent an infectious process. Consider followup to confirm resolution. Jovany Quezada MD Chest X-Ray 09/03/17 0000 Signed Impressions: Service Date/Time: Sunday, September 03, 2017 17:02 - CONCLUSION: 1. Mild edema pattern. Subsegmental basilar airspace disease most characteristic of atelectasis.. Fadi Carolina MD Cervical Spine CT 09/02/17 0000 Signed Impressions: Service Date/Time: August 12:56 - CONCLUSION: Postsurgical changes from anterior cervical plate at C6-7. No evidence of compression deformity or spondylolisthesis. Arun Regan MD Pelvis X-Ray 06/30/17 0000 Signed Impressions: Service Date/Time: Friday, June 30, 2017 12:17 - CONCLUSION: No significant change has occurred. Carlos Capps MD Objective Remarks GENERAL: Well-nourished, well-developed female in NAD. SKIN: Warm and dry. No rash. HEENT: Normocephalic. Atraumatic. Pupils equal and round. No scleral icterus. No injection or drainage. No nasal bleeding or discharge. Mucous membranes pink and moist. NECK: Supple. Trachea midline. CARDIOVASCULAR: Regular rate and rhythm. S1, S2 noted. No murmur appreciated. RESPIRATORY: No accessory muscle use. Clear to auscultation. Breath sounds equal bilaterally. GASTROINTESTINAL: Abdomen soft, non-tender, nondistended. Normoactive bowel sounds x4. No guarding noted. MUSCULOSKELETAL: No obvious deformities. Extremities without clubbing, cyanosis , or edema. NEUROLOGICAL: Awake and alert. No obvious cranial nerve deficits. Motor grossly within normal limits. 5/5 muscle strength in bilateral upper and lower extremities. Normal speech. PSYCHIATRIC: Appropriate mood and affect. A/P Problem List: (1) Alcohol dependence in controlled environment ICD Code: F10.20 - Alcohol dependence, uncomplicated Status: Chronic (2) Facial injury ICD Code: S09.93XA - Unspecified injury of face, initial encounter Status: Acute (3) Fall ICD Code: W19.XXXA - Unspecified fall, initial encounter Status: Acute (4) Hypertension ICD Code: I10 - Essential (primary) hypertension Status: Acute (5) Pelvic fracture ICD Code: S32.9XXA - Fracture of unspecified parts of lumbosacral spine and pelvis, initial encounter for closed fracture Status: Acute (6) C1-C2 subluxation ICD Code: S13.120A - Subluxation of C1/C2 cervical vertebrae, initial encounter Status: Acute (7) C6 cervical fracture ICD Code: S12.500A - Unspecified displaced fracture of sixth cervical vertebra , initial encounter for closed fracture Status: Acute (8) Traumatic brain injury ICD Code: S06.9X9A - Unspecified intracranial injury with loss of consciousness of unspecified duration, initial encounter Status: Acute (9) Nasal fracture ICD Code: S02.2XXA - Fracture of nasal bones, initial encounter for closed fracture Status: Acute (10) Mild neurocognitive disorder ICD Code: G31.84 - Mild cognitive impairment, so stated Status: Acute (11) Intracranial bleed ICD Code: I62.9 - Nontraumatic intracranial hemorrhage, unspecified Status: Acute Assessment and Plan Inability to care for self, unsafe discharge due to cognition PT and OT recommending supervision at home for safety Speech therapy following the patient intermittently for cognitive evaluations. 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 Mini mental state 28/30, recommended avoid antipsychotics and benzodiazepine. Recommending Depakote or carbamazepine Patient is medically stable for discharge, however due to underlying psychiatric/cognition patient is unsafe discharge until arrangements made by case management. Case management for discharge planning. Neuropsychiatry evaluated the patient recommended patient may improve with treatment, however indicates avoid benzodiazepines and antipsychotics Continue Prozac 40 mg daily Depakene 500 mg twice daily Seroquel 100 mg twice daily *Psychiatry indicated that the patient lacks capacity for signing AMA or to participate in discharge plan. He is recommending that he would invite the ethics committee to the hospital to have a discussion about patient care *Consulted case management for ethics committee review, awaiting response Recurrent falls. Resolved. Patient moved close to nursing station Patient denies any neurological symptoms of weakness, paresthesia, loss of bowel or bladder control Orthostatic vitals do show drop in systolic blood pressure when standing. Improved after hydration MRI of the neck. Multilevel degenerative changes. Mild degree of canal stenosis C5-C6, anterior fusion C6-C7 MRI of thoracic and lumbar spine do not indicate any acute abnormality Carotid ultrasound was unremarkable Echocardiogram indicate ejection fraction 50-55% without any abnormalities Physical therapy ordered for 5 days a week Mild malnutrition, secondary to poor by mouth intake Albumin 2.8 Prealbumin 19 After review of weight trend, has been gaining weight Continue Remeron Dietary consulted who recommended ensure with breakfast lunch and there. May have muffin at bedtime, daily vitamin Multiple traumatic injuries Patient laceration, subdural hemorrhage, ventricular hemorrhage, nasal fracture, C6 fracture, C1-C2 subluxation, C4 transverse process fracture, right rib fracture, L1 transverse process fracture, right pubic rami fracture Continue c-collar this time, however patient does not wear Follow-up cervical spine CT indicates no evidence of acute fracture. Postsurgical changes Specialist no longer following patient, patient will require outpatient follow-up if discharge Right breast abscess, Improved. Physical exam shows improvement. Ultrasound does show complex loculated collection measuring 2.4 x 1.7 x 1.8 cm. Representing breast abscess Status post Augmentin 500 mg twice daily for 10 days (end date 10/25/17). Finished Bactrim DS for 18 days Gen. surgery consulted who recommends no intervention at this time. Soft tissue ultrasound shows a improvement of the fluid collection. Attempting to arrange outpatient mammogram. Continue to follow. Hypothyroidism TSH 5.11 Free T4 0.57, free T3 1 0.47 Levothyroxine 25 g daily Monitor TSH every 6-8 weeks Hypertension Amlodipine 10 mg daily DVT prevention Patient ambulating Sequential compression devices while in bed Records were reviewed. Awaiting case management for discharge planning, No change in current treatment plan. Discharge Planning Due to underlying psychiatric/cognition patient is unsafe discharge until arrangements made by case management. Problem Qualifiers (1) Hypertension: Qualified Codes: I10 - Essential (primary) hypertension Alyssa Means Jan 01, 2018 12:55
[2018-01-01] MEDS ORDERED: ONDANSETRON ODT 4 MG TAB PO PRN (13:15)
[2018-01-01 19:38] VITALS: BP 142/92; PULSE 76; RESP 18; TEMP 98; O2SAT 93
[2018-01-01] MEDS: MIRTAZAPINE 15 MG TAB PO SCH (20:59)
[2018-01-01] MEDS: ACETAMINOPHEN 325 MG TAB PO PRN (20:59)
[2018-01-02] MEDS: LEVOTHYROXINE SODIUM 25 MCG TAB PO SCH (06:17)
[2018-01-02 08:00] VITALS: BP 134/89; PULSE 76; RESP 18; TEMP 97.5; O2SAT 93
[2018-01-02] MEDS: QUEtiapine FUMARATE 100 MG TAB PO SCH ×2 (08:55→20:38)
[2018-01-02] MEDS: FLUoxetine HCL 20 MG CAP PO SCH (08:55)
[2018-01-02] MEDS: VALPROIC ACID 250 MG CAP PO SCH ×2 (08:55→20:38)
[2018-01-02] MEDS: MULTIVITAMIN TAB PO SCH (08:56)
--- NOTE | 2018-01-02 12:02 | HHI.PR ---
Subjective Remarks Follow-up unsafe discharge due to cognition. Patient seen and examined, lying comfortably in bed. Sitter at bedside. Denies any acute events overnight. No change in clinical condition. Vital signs are stable. Eating well. Feeling stronger. Objective Vitals Vital Signs Date Time Temp Pulse Resp B/P (MAP) Pulse Ox O2 Delivery O2 Flow Rate FiO2 01/02/18 08:00 97.5 76 18 134/89 (104) 93 01/01/18 19:38 98.0 76 18 142/92 (109) 93 I/O 01/01/18 01/01/18 01/01/18 01/02/18 01/02/18 01/02/18 07:00 15:00 23:00 07:00 15:00 23:00 Intake Total 240 ml 300 ml Output Total 200 ml Balance 240 ml -200 ml 300 ml Intake Oral 240 ml 300 ml Emesis 200 ml # Voids 3 3 2 # Bowel Movements 0 1 0 Imaging Last Impressions Clavicle X-Ray 12/16/17 0000 Signed Impressions: Service Date/Time: December 19:51 - CONCLUSION: Distal clavicle is fractured but this appears nonacute. No acute fracture demonstrated. Jovany Hayes MD Thoracic Spine MRI 12/01/17 0000 Signed Impressions: Service Date/Time: Friday, December 01, 2017 15:10 - CONCLUSION: Negative for acute process. Vimal Taylor MD FACR Lumbar Spine MRI 12/01/17 0000 Signed Impressions: Service Date/Time: Friday, December 01, 2017 15:10 - CONCLUSION: Negative MRI of the lumbar spine. Vimal Taylor MD FACR Carotid Artery Ultrasound 11/30/17 0000 Signed Impressions: Service Date/Time: Thursday, November 30, 2017 14:34 - CONCLUSION: 1. Mild plaque with no hemodynamically significant stenosis. Vertebral artery flow antegrade. Fadi Carolina MD Cervical Spine MRI 11/28/17 0000 Signed Impressions: Service Date/Time: Tuesday, November 28, 2017 15:10 - CONCLUSION: 1. Multilevel posterior disc osteophyte complexes as described above. 2. Anterior fusion C6- 7. Dylon Haddad MD Knee X-Ray 11/02/17 0000 Signed Impressions: Service Date/Time: Thursday, November 02, 2017 18:51 - CONCLUSION: Intact right knee. Jovany Hayes MD Head CT 11/02/17 0000 Signed Impressions: Service Date/Time: Thursday, November 02, 2017 18:35 - CONCLUSION: 1. No bleed or other acute intracranial abnormality. 2. Previously seen intracranial hemorrhage has resolved. A small area of chronic encephalomalacia has developed of the right frontal lobe. 3. Chronic periventricular white matter changes are again noted. Jovany Hayes MD Breast Ultrasound 10/15/17 0000 Signed Impressions: Service Date/Time: Sunday, October 15, 2017 09:06 - CONCLUSION: Persistent subcutaneous collection at the 12:00 position of the right breast. It has slightly decreased in size since the study dated 09/23/2017 and could represent an infectious process. Consider followup to confirm resolution. Jovany Quezada MD Chest X-Ray 09/03/17 0000 Signed Impressions: Service Date/Time: Sunday, September 03, 2017 17:02 - CONCLUSION: 1. Mild edema pattern. Subsegmental basilar airspace disease most characteristic of atelectasis.. Fadi Carolina MD Cervical Spine CT 09/02/17 0000 Signed Impressions: Service Date/Time: August 12:56 - CONCLUSION: Postsurgical changes from anterior cervical plate at C6-7. No evidence of compression deformity or spondylolisthesis. Arun Regan MD Pelvis X-Ray 06/30/17 0000 Signed Impressions: Service Date/Time: Friday, June 30, 2017 12:17 - CONCLUSION: No significant change has occurred. Carlos Capps MD Objective Remarks GENERAL: Well-nourished, well-developed female in NAD. SKIN: Warm and dry. No rash. HEENT: Normocephalic. Atraumatic. Pupils equal and round. No scleral icterus. No injection or drainage. No nasal bleeding or discharge. Mucous membranes pink and moist. NECK: Supple. Trachea midline. CARDIOVASCULAR: Regular rate and rhythm. S1, S2 noted. No murmur appreciated. RESPIRATORY: No accessory muscle use. Clear to auscultation. Breath sounds equal bilaterally. GASTROINTESTINAL: Abdomen soft, non-tender, nondistended. Normoactive bowel sounds x4. No guarding noted. MUSCULOSKELETAL: No obvious deformities. Extremities without clubbing, cyanosis , or edema. NEUROLOGICAL: Awake and alert. No obvious cranial nerve deficits. Motor grossly within normal limits. 5/5 muscle strength in bilateral upper and lower extremities. Normal speech. PSYCHIATRIC: Appropriate mood and affect. A/P Problem List: (1) Alcohol dependence in controlled environment ICD Code: F10.20 - Alcohol dependence, uncomplicated Status: Chronic (2) Facial injury ICD Code: S09.93XA - Unspecified injury of face, initial encounter Status: Acute (3) Fall ICD Code: W19.XXXA - Unspecified fall, initial encounter Status: Acute (4) Hypertension ICD Code: I10 - Essential (primary) hypertension Status: Acute (5) Pelvic fracture ICD Code: S32.9XXA - Fracture of unspecified parts of lumbosacral spine and pelvis, initial encounter for closed fracture Status: Acute (6) C1-C2 subluxation ICD Code: S13.120A - Subluxation of C1/C2 cervical vertebrae, initial encounter Status: Acute (7) C6 cervical fracture ICD Code: S12.500A - Unspecified displaced fracture of sixth cervical vertebra , initial encounter for closed fracture Status: Acute (8) Traumatic brain injury ICD Code: S06.9X9A - Unspecified intracranial injury with loss of consciousness of unspecified duration, initial encounter Status: Acute (9) Nasal fracture ICD Code: S02.2XXA - Fracture of nasal bones, initial encounter for closed fracture Status: Acute (10) Mild neurocognitive disorder ICD Code: G31.84 - Mild cognitive impairment, so stated Status: Acute (11) Intracranial bleed ICD Code: I62.9 - Nontraumatic intracranial hemorrhage, unspecified Status: Acute Assessment and Plan Inability to care for self, unsafe discharge due to cognition PT and OT recommending supervision at home for safety Speech therapy following the patient intermittently for cognitive evaluations. 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 Mini mental state 28/30, recommended avoid antipsychotics and benzodiazepine. Recommending Depakote or carbamazepine Patient is medically stable for discharge, however due to underlying psychiatric/cognition patient is unsafe discharge until arrangements made by case management. Case management for discharge planning. Neuropsychiatry evaluated the patient recommended patient may improve with treatment, however indicates avoid benzodiazepines and antipsychotics Continue Prozac 40 mg daily Depakene 500 mg twice daily Seroquel 100 mg twice daily *Psychiatry indicated that the patient lacks capacity for signing AMA or to participate in discharge plan. He is recommending that he would invite the ethics committee to the hospital to have a discussion about patient care *Consulted case management for ethics committee review, awaiting response Recurrent falls. Resolved. Patient moved close to nursing station Patient denies any neurological symptoms of weakness, paresthesia, loss of bowel or bladder control Orthostatic vitals do show drop in systolic blood pressure when standing. Improved after hydration MRI of the neck. Multilevel degenerative changes. Mild degree of canal stenosis C5-C6, anterior fusion C6-C7 MRI of thoracic and lumbar spine do not indicate any acute abnormality Carotid ultrasound was unremarkable Echocardiogram indicate ejection fraction 50-55% without any abnormalities Physical therapy ordered for 5 days a week Mild malnutrition, secondary to poor by mouth intake Albumin 2.8. Prealbumin 19 After review of weight trend, has been gaining weight. Continue Remeron. Dietary consulted who recommended ensure with breakfast lunch and there. May have muffin at bedtime, daily vitamin. Multiple traumatic injuries Patient laceration, subdural hemorrhage, ventricular hemorrhage, nasal fracture, C6 fracture, C1-C2 subluxation, C4 transverse process fracture, right rib fracture, L1 transverse process fracture, right pubic rami fracture Continue c-collar this time, however patient does not wear Follow-up cervical spine CT indicates no evidence of acute fracture. Postsurgical changes Specialist no longer following patient, patient will require outpatient follow-up if discharge Right breast abscess, Improved. Physical exam shows improvement. Ultrasound does show complex loculated collection measuring 2.4 x 1.7 x 1.8 cm. Representing breast abscess Status post Augmentin 500 mg twice daily for 10 days (end date 10/25/17). Finished Bactrim DS for 18 days Gen. surgery consulted who recommends no intervention at this time. Soft tissue ultrasound shows a improvement of the fluid collection. Attempting to arrange outpatient mammogram. Continue to follow. Hypothyroidism TSH 5.11 Free T4 0.57, free T3 1 0.47 Levothyroxine 25 g daily Monitor TSH every 6-8 weeks Hypertension Amlodipine 10 mg daily DVT prevention Patient ambulating Sequential compression devices while in bed Records were reviewed. Awaiting case management for discharge planning, No change in current treatment plan. Discharge Planning Due to underlying psychiatric/cognition patient is unsafe discharge until arrangements made by case management. Problem Qualifiers (1) Hypertension: Qualified Codes: I10 - Essential (primary) hypertension Alyssa Means Jan 02, 2018 12:02
[2018-01-02 20:00] VITALS: BP 133/89; PULSE 84; RESP 18; TEMP 97.4; O2SAT 92
[2018-01-02] MEDS: MIRTAZAPINE 15 MG TAB PO SCH (20:38)
[2018-01-02] MEDS: ACETAMINOPHEN 325 MG TAB PO PRN (20:44)
[2018-01-03] MEDS: ACETAMINOPHEN 325 MG TAB PO PRN ×2 (05:59→21:29)
[2018-01-03] MEDS: LEVOTHYROXINE SODIUM 25 MCG TAB PO SCH (05:59)
[2018-01-03 08:00] VITALS: BP 118/89; PULSE 83; RESP 14; TEMP 97.4; O2SAT 93
[2018-01-03] MEDS: VALPROIC ACID 250 MG CAP PO SCH ×2 (09:14→21:29)
[2018-01-03] MEDS: QUEtiapine FUMARATE 100 MG TAB PO SCH ×2 (09:14→21:28)
[2018-01-03] MEDS: FLUoxetine HCL 20 MG CAP PO SCH (09:14)
[2018-01-03] MEDS: MULTIVITAMIN TAB PO SCH (09:14)
--- NOTE | 2018-01-03 11:14 | HHI.PR ---
Subjective Remarks Follow-up unsafe discharge due to cognition. Patient seen and examined, sitting up in bed comfortably. No reports of any acute events overnight. No change in clinical condition. Vital signs are stable. Afebrile. Objective Vitals Vital Signs Date Time Temp Pulse Resp B/P (MAP) Pulse Ox O2 Delivery O2 Flow Rate FiO2 01/03/18 08:00 97.4 83 14 118/89 (99) 93 01/02/18 20:00 97.4 84 18 133/89 (104) 92 I/O 01/02/18 01/02/18 01/02/18 01/03/18 01/03/18 01/03/18 07:00 15:00 23:00 07:00 15:00 23:00 Intake Total 222 ml 240 ml 240 ml 237 ml Balance 222 ml 240 ml 240 ml 237 ml Intake Oral 222 ml 240 ml 240 ml 237 ml # Voids 2 4 # Bowel Movements 0 1 Imaging Last Impressions Clavicle X-Ray 12/16/17 0000 Signed Impressions: Service Date/Time: December 19:51 - CONCLUSION: Distal clavicle is fractured but this appears nonacute. No acute fracture demonstrated. Jovany Hayes MD Thoracic Spine MRI 12/01/17 0000 Signed Impressions: Service Date/Time: Friday, December 01, 2017 15:10 - CONCLUSION: Negative for acute process. Vimal Taylor MD FACR Lumbar Spine MRI 12/01/17 0000 Signed Impressions: Service Date/Time: Friday, December 01, 2017 15:10 - CONCLUSION: Negative MRI of the lumbar spine. Vimal Taylor MD FACR Carotid Artery Ultrasound 11/30/17 0000 Signed Impressions: Service Date/Time: Thursday, November 30, 2017 14:34 - CONCLUSION: 1. Mild plaque with no hemodynamically significant stenosis. Vertebral artery flow antegrade. Fadi Carolina MD Cervical Spine MRI 11/28/17 0000 Signed Impressions: Service Date/Time: Tuesday, November 28, 2017 15:10 - CONCLUSION: 1. Multilevel posterior disc osteophyte complexes as described above. 2. Anterior fusion C6- 7. Dylon Haddad MD Knee X-Ray 11/02/17 0000 Signed Impressions: Service Date/Time: Thursday, November 02, 2017 18:51 - CONCLUSION: Intact right knee. Jovany Hayes MD Head CT 11/02/17 0000 Signed Impressions: Service Date/Time: Thursday, November 02, 2017 18:35 - CONCLUSION: 1. No bleed or other acute intracranial abnormality. 2. Previously seen intracranial hemorrhage has resolved. A small area of chronic encephalomalacia has developed of the right frontal lobe. 3. Chronic periventricular white matter changes are again noted. Jovany Hayes MD Breast Ultrasound 10/15/17 0000 Signed Impressions: Service Date/Time: Sunday, October 15, 2017 09:06 - CONCLUSION: Persistent subcutaneous collection at the 12:00 position of the right breast. It has slightly decreased in size since the study dated 09/23/2017 and could represent an infectious process. Consider followup to confirm resolution. Jovany Quezada MD Chest X-Ray 09/03/17 0000 Signed Impressions: Service Date/Time: Sunday, September 03, 2017 17:02 - CONCLUSION: 1. Mild edema pattern. Subsegmental basilar airspace disease most characteristic of atelectasis.. Fadi Carolina MD Cervical Spine CT 09/02/17 0000 Signed Impressions: Service Date/Time: August 12:56 - CONCLUSION: Postsurgical changes from anterior cervical plate at C6-7. No evidence of compression deformity or spondylolisthesis. Arun Regan MD Pelvis X-Ray 06/30/17 0000 Signed Impressions: Service Date/Time: Friday, June 30, 2017 12:17 - CONCLUSION: No significant change has occurred. Carlos Capps MD Objective Remarks GENERAL: Well-nourished, well-developed female in NAD. SKIN: Warm and dry. No rash. HEENT: Normocephalic. Atraumatic. Pupils equal and round. No scleral icterus. No injection or drainage. No nasal bleeding or discharge. Mucous membranes pink and moist. NECK: Supple. Trachea midline. CARDIOVASCULAR: Regular rate and rhythm. S1, S2 noted. No murmur appreciated. RESPIRATORY: No accessory muscle use. Clear to auscultation. Breath sounds equal bilaterally. GASTROINTESTINAL: Abdomen soft, non-tender, nondistended. Normoactive bowel sounds x4. No guarding noted. MUSCULOSKELETAL: No obvious deformities. Extremities without clubbing, cyanosis , or edema. NEUROLOGICAL: Awake and alert. No obvious cranial nerve deficits. Motor grossly within normal limits. 5/5 muscle strength in bilateral upper and lower extremities. Normal speech. PSYCHIATRIC: Appropriate mood and affect. A/P Problem List: (1) Alcohol dependence in controlled environment ICD Code: F10.20 - Alcohol dependence, uncomplicated Status: Chronic (2) Facial injury ICD Code: S09.93XA - Unspecified injury of face, initial encounter Status: Acute (3) Fall ICD Code: W19.XXXA - Unspecified fall, initial encounter Status: Acute (4) Hypertension ICD Code: I10 - Essential (primary) hypertension Status: Acute (5) Pelvic fracture ICD Code: S32.9XXA - Fracture of unspecified parts of lumbosacral spine and pelvis, initial encounter for closed fracture Status: Acute (6) C1-C2 subluxation ICD Code: S13.120A - Subluxation of C1/C2 cervical vertebrae, initial encounter Status: Acute (7) C6 cervical fracture ICD Code: S12.500A - Unspecified displaced fracture of sixth cervical vertebra , initial encounter for closed fracture Status: Acute (8) Traumatic brain injury ICD Code: S06.9X9A - Unspecified intracranial injury with loss of consciousness of unspecified duration, initial encounter Status: Acute (9) Nasal fracture ICD Code: S02.2XXA - Fracture of nasal bones, initial encounter for closed fracture Status: Acute (10) Mild neurocognitive disorder ICD Code: G31.84 - Mild cognitive impairment, so stated Status: Acute (11) Intracranial bleed ICD Code: I62.9 - Nontraumatic intracranial hemorrhage, unspecified Status: Acute Assessment and Plan Inability to care for self, unsafe discharge due to cognition PT and OT recommending supervision at home for safety. Speech therapy following the patient intermittently for cognitive evaluations. 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 Mini mental state 28/30, recommended avoid antipsychotics and benzodiazepine. Recommending Depakote or carbamazepine. Patient is medically stable for discharge, however due to underlying psychiatric/cognition patient is unsafe discharge until arrangements made by case management. Case management for discharge planning. Neuropsychiatry evaluated the patient recommended patient may improve with treatment, however indicates avoid benzodiazepines and antipsychotics Continue Prozac 40 mg daily Depakene 500 mg twice daily Seroquel 100 mg twice daily *Psychiatry indicated that the patient lacks capacity for signing AMA or to participate in discharge plan. He is recommending that he would invite the ethics committee to the hospital to have a discussion about patient care *Consulted case management for ethics committee review, awaiting response Recurrent falls. Resolved. Patient moved close to nursing station. Patient denies any neurological symptoms of weakness, paresthesia, loss of bowel or bladder control Orthostatic vitals do show drop in systolic blood pressure when standing. Improved after hydration. MRI of the neck. Multilevel degenerative changes. Mild degree of canal stenosis C5-C6, anterior fusion C6-C7 MRI of thoracic and lumbar spine do not indicate any acute abnormality Carotid ultrasound was unremarkable. Echocardiogram indicate ejection fraction 50-55% without any abnormalities Physical therapy ordered for 5 days a week Mild malnutrition, secondary to poor by mouth intake Albumin 2.8. Prealbumin 19. After review of weight trend, has been gaining weight. Continue Remeron. Dietary consulted who recommended ensure with breakfast lunch and there. May have muffin at bedtime, daily vitamin. Multiple traumatic injuries Patient laceration, subdural hemorrhage, ventricular hemorrhage, nasal fracture, C6 fracture, C1-C2 subluxation, C4 transverse process fracture, right rib fracture, L1 transverse process fracture, right pubic rami fracture Continue c-collar this time, however patient does not wear Follow-up cervical spine CT indicates no evidence of acute fracture. Postsurgical changes Specialist no longer following patient, patient will require outpatient follow-up if discharge Right breast abscess, Improved. Physical exam shows improvement. Ultrasound does show complex loculated collection measuring 2.4 x 1.7 x 1.8 cm. Representing breast abscess Status post Augmentin 500 mg twice daily for 10 days (end date 10/25/17). Finished Bactrim DS for 18 days Gen. surgery consulted who recommends no intervention at this time. Soft tissue ultrasound shows a improvement of the fluid collection. Attempting to arrange outpatient mammogram. Continue to follow. Hypothyroidism TSH 5.11 Free T4 0.57, free T3 1 0.47 Levothyroxine 25 g daily Monitor TSH every 6-8 weeks Hypertension Amlodipine 10 mg daily DVT prevention Patient ambulating Sequential compression devices while in bed Records were reviewed. Awaiting case management for discharge planning, No change in current treatment plan. Discharge Planning Due to underlying psychiatric/cognition patient is unsafe discharge until arrangements made by case management. Problem Qualifiers (1) Hypertension: Qualified Codes: I10 - Essential (primary) hypertension Alyssa Means Jan 03, 2018 11:14
[2018-01-03 20:00] VITALS: BP 138/84; PULSE 81; RESP 20; TEMP 96.5; O2SAT 93
[2018-01-03] MEDS: MIRTAZAPINE 15 MG TAB PO SCH (21:28)
[2018-01-04] MEDS: LEVOTHYROXINE SODIUM 25 MCG TAB PO SCH (06:07)
[2018-01-04] MEDS: MULTIVITAMIN TAB PO SCH (07:59)
[2018-01-04] MEDS: QUEtiapine FUMARATE 100 MG TAB PO SCH ×2 (07:59→20:33)
[2018-01-04] MEDS: FLUoxetine HCL 20 MG CAP PO SCH (07:59)
[2018-01-04] MEDS: VALPROIC ACID 250 MG CAP PO SCH ×2 (07:59→20:34)
[2018-01-04 09:00] VITALS: BP 135/90; PULSE 84; RESP 16; O2SAT 92
--- NOTE | 2018-01-04 09:08 | HHI.PR ---
Subjective Remarks Patient seen and examined today for follow-up on unsafe discharge due to cognition. Patient is resting carefully. Denies any new complaints. No change in clinical status. Vital signs are stable, afebrile. Objective Vitals Vital Signs Date Time Temp Pulse Resp B/P (MAP) Pulse Ox O2 Delivery O2 Flow Rate FiO2 01/03/18 20:00 96.5 81 20 138/84 (102) 93 I/O 01/03/18 01/03/18 01/03/18 01/04/18 01/04/18 01/04/18 07:00 15:00 23:00 07:00 15:00 23:00 Intake Total 240 ml 237 ml 237 ml 120 ml Balance 240 ml 237 ml 237 ml 120 ml Intake Oral 240 ml 237 ml 237 ml 120 ml # Voids 5 1 # Bowel Movements 1 Objective Remarks GENERAL: Well-developed, well-nourished, in no acute distress. alert and orientated waxes and wanes daily HEENT: Head is normocephalic without any lesions or masses noted. Facial features are symmetric. Eyes: Extraocular muscles are intact. Conjunctivae were clear. NECK: C-collar in on table at bedside CARDIAC: Regular rhythm, regular rate. S1/S2 are heard. No murmurs gallops or rubs. LUNGS: Clear to auscultation bilaterally. No wheeze, rhonchi or rales. No use of accessory muscles on inspiration or expiration. ABDOMEN: Soft, nontender. Nondistended. Bowel sounds heard in all 4 quadrants. No organomegaly or masses. Negative rebound, negative guarding EXTREMITIES: No edema, pulses are equal bilaterally. No cyanosis or clubbing NEUROLOGY: Mood and affect appear appropriate. Cranial nerves II through XII grossly intact moving all extremities, speech is clear Urinary Catheter: No Vascular Central Line Catheter: No A/P Assessment and Plan Inability to care for self, unsafe discharge due to cognition Initially he was indicated patient cannot walk, patient is walking at this time, PT and OT recommending supervision at home for safety Speech therapy following the patient intermittently for cognitive evaluations. 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 MIni mental state 28/30, recommended avoid antipsychotics and benzodiazepine. Recommending Depakote or carbamazepine Patient is medically stable for discharge, however due to underlying psychiatric/cognition patient is unsafe discharge until arrangements made by case management Case management for discharge planning Neuropsychiatry evaluated the patient recommended patient may improve with treatment, however indicates avoid benzodiazepines and antipsychotics Continue Prozac 40 mg daily Depakene 500 mg twice daily Seroquel 100 mg twice daily *Discussed with psychiatry again about patient's cognition issues. He indicated that the patient lacks capacity for signing AMA or to participate in discharge plan. He is recommending that he would invite the ethics committee to the hospital to have a discussion about patient care *Consulted case management for ethics committee review, awaiting response Mild malnutrition, secondary to poor by mouth intake Albumin 2.8 Prealbumin 19 However, patient actually has increase in weight of 6 pounds since admission. In the last 3 days it would appear that she's gained another 6 pounds Continue Remeron Dietary consulted who recommended ensure with breakfast lunch and there. May have muffin at bedtime, daily vitamin Recurrent falls, Patient moved close to nursing station Patient does state that she is having neck pain Patient denies any neurological symptoms of weakness, paresthesia, loss of bowel or bladder control Orthostatic vitals do show drop in systolic blood pressure when standing. Improved after hydration Status post 2 L normal saline and continue monitor orthostatic vitals MRI of the neck. Multilevel degenerative changes. Mild degree of canal stenosis C5-C6, anterior fusion C6-C7 MRI of thoracic and lumbar spine do not indicate any acute abnormality Clavicle x-ray shows nonacute distal clavicle fracture. Carotid ultrasound was unremarkable Echocardiogram indicate ejection fraction 50-55% without any abnormalities Physical therapy ordered for 5 days a week Multiple traumatic injuries, Patient laceration, subdural hemorrhage, ventricular hemorrhage, nasal fracture, C6 fracture, C1-C2 subluxation, C4 transverse process fracture, right rib fracture, L1 transverse process fracture, right pubic rami fracture Continue c-collar this time, however patient does not wear Follow-up cervical spine CT indicates no evidence of acute fracture. Postsurgical changes Specialist no longer following patient, patient will require outpatient follow-up if discharge Right breast abscess, improved Physical exam patient does have a erythematous area with drainage Ultrasound does show complex loculated collection measuring 2.4 x 1.7 x 1.8 cm. Representing breast abscess Status post Augmentin 500 mg twice daily for 10 days and Bactrim DS for 18 days Gen. surgery consulted who recommends no intervention at this time, Soft tissue ultrasound shows a improvement of the fluid collection. Hypothyroidism TSH 5.11 Free T4 0.57, free T3 1 0.47 Levothyroxine 25 g daily Monitor TSH every 6-8 weeks Hypertension, Amlodipine 10 mg daily DVT prevention Patient ambulating Sequential compression devices while in bed Records are reviewed. Case management for discharge planning. No change in current treatment plan. Discharge Planning Case management for discharge planning, Conrado Mariee Jan 04, 2018 09:08
[2018-01-04 12:00] VITALS: BP 135/86
[2018-01-04 20:00] VITALS: BP 138/88; PULSE 73; RESP 20; TEMP 96.1; O2SAT 96
[2018-01-04] MEDS: MIRTAZAPINE 15 MG TAB PO SCH (20:34)
[2018-01-05] MEDS: LEVOTHYROXINE SODIUM 25 MCG TAB PO SCH (06:17)
[2018-01-05 08:00] VITALS: BP 152/108; PULSE 75; RESP 16; TEMP 97.5; O2SAT 93
--- NOTE | 2018-01-05 08:49 | HHI.PR ---
Subjective Remarks Patient seen and examined today for follow-up on unsafe discharge due to cognition. patient denies any new complaints. No change in clinical status. Afebrile. Objective Vitals Vital Signs Date Time Temp Pulse Resp B/P (MAP) Pulse Ox O2 Delivery O2 Flow Rate FiO2 01/05/18 08:00 97.5 75 16 152/108 (123) 93 01/04/18 20:00 96.1 73 20 138/88 (105) 96 01/04/18 12:00 135/86 (102) 01/04/18 09:00 84 16 135/90 (105) 92 I/O 01/04/18 01/04/18 01/04/18 01/05/18 01/05/18 01/05/18 07:00 15:00 23:00 07:00 15:00 23:00 Intake Total 120 ml 480 ml 240 ml Balance 120 ml 480 ml 240 ml Intake Oral 120 ml 480 ml 240 ml # Voids 1 3 1 # Bowel Movements 1 Objective Remarks GENERAL: Well-developed, well-nourished, in no acute distress. alert and orientated waxes and wanes daily HEENT: Head is normocephalic without any lesions or masses noted. Facial features are symmetric. Eyes: Extraocular muscles are intact. Conjunctivae were clear. NECK: C-collar in on table at bedside CARDIAC: Regular rhythm, regular rate. S1/S2 are heard. No murmurs gallops or rubs. LUNGS: Clear to auscultation bilaterally. No wheeze, rhonchi or rales. No use of accessory muscles on inspiration or expiration. ABDOMEN: Soft, nontender. Nondistended. Bowel sounds heard in all 4 quadrants. No organomegaly or masses. Negative rebound, negative guarding EXTREMITIES: No edema, pulses are equal bilaterally. No cyanosis or clubbing NEUROLOGY: Mood and affect appear appropriate. Cranial nerves II through XII grossly intact moving all extremities, speech is clear Urinary Catheter: No Vascular Central Line Catheter: No A/P Assessment and Plan Inability to care for self, unsafe discharge due to cognition Initially he was indicated patient cannot walk, patient is walking at this time, PT and OT recommending supervision at home for safety Speech therapy following the patient intermittently for cognitive evaluations. 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 MIni mental state 28/30, recommended avoid antipsychotics and benzodiazepine. Recommending Depakote or carbamazepine Patient is medically stable for discharge, however due to underlying psychiatric/cognition patient is unsafe discharge until arrangements made by case management Case management for discharge planning Neuropsychiatry evaluated the patient recommended patient may improve with treatment, however indicates avoid benzodiazepines and antipsychotics Continue Prozac 40 mg daily Depakene 500 mg twice daily Seroquel 100 mg twice daily *Discussed with psychiatry again about patient's cognition issues. He indicated that the patient lacks capacity for signing AMA or to participate in discharge plan. He is recommending that he would invite the ethics committee to the hospital to have a discussion about patient care *Consulted case management for ethics committee review, awaiting response Mild malnutrition, secondary to poor by mouth intake Albumin 2.8 Prealbumin 19 However, patient actually has increase in weight of 6 pounds since admission. In the last 3 days it would appear that she's gained another 6 pounds Continue Remeron Dietary consulted who recommended ensure with breakfast lunch and there. May have muffin at bedtime, daily vitamin Recurrent falls, Patient moved close to nursing station Patient does state that she is having neck pain Patient denies any neurological symptoms of weakness, paresthesia, loss of bowel or bladder control Orthostatic vitals do show drop in systolic blood pressure when standing. Improved after hydration Status post 2 L normal saline and continue monitor orthostatic vitals MRI of the neck. Multilevel degenerative changes. Mild degree of canal stenosis C5-C6, anterior fusion C6-C7 MRI of thoracic and lumbar spine do not indicate any acute abnormality Clavicle x-ray shows nonacute distal clavicle fracture. Carotid ultrasound was unremarkable Echocardiogram indicate ejection fraction 50-55% without any abnormalities Physical therapy ordered for 5 days a week Multiple traumatic injuries, Patient laceration, subdural hemorrhage, ventricular hemorrhage, nasal fracture, C6 fracture, C1-C2 subluxation, C4 transverse process fracture, right rib fracture, L1 transverse process fracture, right pubic rami fracture Continue c-collar this time, however patient does not wear Follow-up cervical spine CT indicates no evidence of acute fracture. Postsurgical changes Specialist no longer following patient, patient will require outpatient follow-up if discharge Right breast abscess, improved Physical exam patient does have a erythematous area with drainage Ultrasound does show complex loculated collection measuring 2.4 x 1.7 x 1.8 cm. Representing breast abscess Status post Augmentin 500 mg twice daily for 10 days and Bactrim DS for 18 days Gen. surgery consulted who recommends no intervention at this time, Soft tissue ultrasound shows a improvement of the fluid collection. Hypothyroidism TSH 5.11 Free T4 0.57, free T3 1 0.47 Levothyroxine 25 g daily Monitor TSH every 6-8 weeks Hypertension, Amlodipine 10 mg daily DVT prevention Patient ambulating Sequential compression devices while in bed Records are reviewed. No change in current treatment plan. Case management for discharge planning. Discharge Planning Case management for discharge planning, Conrado Mariee Jan 05, 2018 08:49
[2018-01-05] MEDS: VALPROIC ACID 250 MG CAP PO SCH ×2 (08:51→20:14)
[2018-01-05] MEDS: FLUoxetine HCL 20 MG CAP PO SCH (08:51)
[2018-01-05] MEDS: MULTIVITAMIN TAB PO SCH (08:51)
[2018-01-05] MEDS: QUEtiapine FUMARATE 100 MG TAB PO SCH ×2 (08:52→20:15)
[2018-01-05 12:00] VITALS: BP 136/80; PULSE 88; RESP 16; TEMP 97.8; O2SAT 93
[2018-01-05 20:00] VITALS: BP 125/80; PULSE 83; RESP 20; TEMP 97.4; O2SAT 93
[2018-01-05] MEDS: MIRTAZAPINE 15 MG TAB PO SCH (20:14)
[2018-01-06] MEDS: LEVOTHYROXINE SODIUM 25 MCG TAB PO SCH (05:31)
[2018-01-06] MEDS: QUEtiapine FUMARATE 100 MG TAB PO SCH ×2 (09:16→20:03)
[2018-01-06] MEDS: FLUoxetine HCL 20 MG CAP PO SCH (09:16)
[2018-01-06] MEDS: MULTIVITAMIN TAB PO SCH (09:16)
[2018-01-06] MEDS: VALPROIC ACID 250 MG CAP PO SCH ×2 (09:17→20:03)
--- NOTE | 2018-01-06 09:24 | HHI.PR ---
Subjective Remarks Patient seen and examined today for follow-up on unsafe discharge due to cognition. Patient denies any new complaints. Patient doing well. No change in clinical status. Vital signs are stable, afebrile Objective Vitals Vital Signs Date Time Temp Pulse Resp B/P (MAP) Pulse Ox O2 Delivery O2 Flow Rate FiO2 01/05/18 20:00 97.4 83 20 125/80 (95) 93 01/05/18 12:00 97.8 88 16 136/80 (98) 93 I/O 01/05/18 01/05/18 01/05/18 01/06/18 01/06/18 01/06/18 07:00 15:00 23:00 07:00 15:00 23:00 Intake Total 240 ml 0 ml 1320 ml 480 ml Balance 240 ml 0 ml 1320 ml 480 ml Intake Oral 240 ml 0 ml 1320 ml 480 ml # Voids 1 4 3 # Bowel Movements 1 2 Objective Remarks GENERAL: Well-developed, well-nourished, in no acute distress. alert and orientated waxes and wanes daily HEENT: Head is normocephalic without any lesions or masses noted. Facial features are symmetric. Eyes: Extraocular muscles are intact. Conjunctivae were clear. NECK: C-collar in on table at bedside CARDIAC: Regular rhythm, regular rate. S1/S2 are heard. No murmurs gallops or rubs. LUNGS: Clear to auscultation bilaterally. No wheeze, rhonchi or rales. No use of accessory muscles on inspiration or expiration. ABDOMEN: Soft, nontender. Nondistended. Bowel sounds heard in all 4 quadrants. No organomegaly or masses. Negative rebound, negative guarding EXTREMITIES: No edema, pulses are equal bilaterally. No cyanosis or clubbing NEUROLOGY: Mood and affect appear appropriate. Cranial nerves II through XII grossly intact moving all extremities, speech is clear Urinary Catheter: No Vascular Central Line Catheter: No A/P Assessment and Plan Inability to care for self, unsafe discharge due to cognition Initially he was indicated patient cannot walk, patient is walking at this time, PT and OT recommending supervision at home for safety Speech therapy following the patient intermittently for cognitive evaluations. 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 MIni mental state 28/30, recommended avoid antipsychotics and benzodiazepine. Recommending Depakote or carbamazepine Patient is medically stable for discharge, however due to underlying psychiatric/cognition patient is unsafe discharge until arrangements made by case management Case management for discharge planning Neuropsychiatry evaluated the patient recommended patient may improve with treatment, however indicates avoid benzodiazepines and antipsychotics Continue Prozac 40 mg daily Depakene 500 mg twice daily Seroquel 100 mg twice daily *Discussed with psychiatry again about patient's cognition issues. He indicated that the patient lacks capacity for signing AMA or to participate in discharge plan. He is recommending that he would invite the ethics committee to the hospital to have a discussion about patient care *Consulted case management for ethics committee review, awaiting response Mild malnutrition, secondary to poor by mouth intake Albumin 2.8 Prealbumin 19 However, patient actually has increase in weight of 6 pounds since admission. In the last 3 days it would appear that she's gained another 6 pounds Continue Remeron Dietary consulted who recommended ensure with breakfast lunch and there. May have muffin at bedtime, daily vitamin Recurrent falls, Patient moved close to nursing station Patient does state that she is having neck pain Patient denies any neurological symptoms of weakness, paresthesia, loss of bowel or bladder control Orthostatic vitals do show drop in systolic blood pressure when standing. Improved after hydration Status post 2 L normal saline and continue monitor orthostatic vitals MRI of the neck. Multilevel degenerative changes. Mild degree of canal stenosis C5-C6, anterior fusion C6-C7 MRI of thoracic and lumbar spine do not indicate any acute abnormality Clavicle x-ray shows nonacute distal clavicle fracture. Carotid ultrasound was unremarkable Echocardiogram indicate ejection fraction 50-55% without any abnormalities Physical therapy ordered for 5 days a week Multiple traumatic injuries, Patient laceration, subdural hemorrhage, ventricular hemorrhage, nasal fracture, C6 fracture, C1-C2 subluxation, C4 transverse process fracture, right rib fracture, L1 transverse process fracture, right pubic rami fracture Continue c-collar this time, however patient does not wear Follow-up cervical spine CT indicates no evidence of acute fracture. Postsurgical changes Specialist no longer following patient, patient will require outpatient follow-up if discharge Right breast abscess, improved Physical exam patient does have a erythematous area with drainage Ultrasound does show complex loculated collection measuring 2.4 x 1.7 x 1.8 cm. Representing breast abscess Status post Augmentin 500 mg twice daily for 10 days and Bactrim DS for 18 days Gen. surgery consulted who recommends no intervention at this time, Soft tissue ultrasound shows a improvement of the fluid collection. Hypothyroidism TSH 5.11 Free T4 0.57, free T3 1 0.47 Levothyroxine 25 g daily Monitor TSH every 6-8 weeks Hypertension, Amlodipine 10 mg daily DVT prevention Patient ambulating Sequential compression devices while in bed Records are reviewed. Case management for discharge planning. No change in current treatment plan. Discharge Planning Case management for discharge planning, Conrado Mariee Jan 06, 2018 09:24
[2018-01-06 10:44] VITALS: BP 113/79; PULSE 84; RESP 20; TEMP 96.7; O2SAT 93
[2018-01-06 20:00] VITALS: BP 134/83; PULSE 86; RESP 20; TEMP 97; O2SAT 93
[2018-01-06] MEDS: MIRTAZAPINE 15 MG TAB PO SCH (20:03)
[2018-01-07] MEDS: LEVOTHYROXINE SODIUM 25 MCG TAB PO SCH (05:10)
[2018-01-07 08:00] VITALS: BP 144/86; PULSE 74; RESP 14; TEMP 96.4; O2SAT 93
[2018-01-07] MEDS: MULTIVITAMIN TAB PO SCH (08:46)
[2018-01-07] MEDS: QUEtiapine FUMARATE 100 MG TAB PO SCH ×2 (08:46→20:20)
[2018-01-07] MEDS: FLUoxetine HCL 20 MG CAP PO SCH (08:46)
[2018-01-07] MEDS: VALPROIC ACID 250 MG CAP PO SCH ×2 (08:46→20:20)
[2018-01-07] MEDS: ERGOCALCIFEROL (VIT D2) 50,000 UNIT CAP PO SCH (09:00)
--- NOTE | 2018-01-07 09:52 | HHI.PR ---
Subjective Remarks Patient seen and examined today for follow-up on unsafe discharge due to cognition. Patient denies any new complaints. No change in clinical status. Vital signs are stable. Afebrile. Objective Vitals Vital Signs Date Time Temp Pulse Resp B/P (MAP) Pulse Ox O2 Delivery O2 Flow Rate FiO2 01/06/18 20:00 97.0 86 20 134/83 (100) 93 01/06/18 10:44 96.7 84 20 113/79 (90) 93 I/O 01/06/18 01/06/18 01/06/18 01/07/18 01/07/18 01/07/18 07:00 15:00 23:00 07:00 15:00 23:00 Intake Total 480 ml 960 ml 800 ml Balance 480 ml 960 ml 800 ml Intake Oral 480 ml 960 ml 800 ml # Voids 3 4 4 # Bowel Movements 2 2 2 Objective Remarks GENERAL: Well-developed, well-nourished, in no acute distress. alert and orientated waxes and wanes daily HEENT: Head is normocephalic without any lesions or masses noted. Facial features are symmetric. Eyes: Extraocular muscles are intact. Conjunctivae were clear. NECK: C-collar in on table at bedside CARDIAC: Regular rhythm, regular rate. S1/S2 are heard. No murmurs gallops or rubs. LUNGS: Clear to auscultation bilaterally. No wheeze, rhonchi or rales. No use of accessory muscles on inspiration or expiration. ABDOMEN: Soft, nontender. Nondistended. Bowel sounds heard in all 4 quadrants. No organomegaly or masses. Negative rebound, negative guarding EXTREMITIES: No edema, pulses are equal bilaterally. No cyanosis or clubbing NEUROLOGY: Mood and affect appear appropriate. Cranial nerves II through XII grossly intact moving all extremities, speech is clear Urinary Catheter: No Vascular Central Line Catheter: No A/P Assessment and Plan Inability to care for self, unsafe discharge due to cognition Initially he was indicated patient cannot walk, patient is walking at this time, PT and OT recommending supervision at home for safety Speech therapy following the patient intermittently for cognitive evaluations. 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 MIni mental state 28/30, recommended avoid antipsychotics and benzodiazepine. Recommending Depakote or carbamazepine Patient is medically stable for discharge, however due to underlying psychiatric/cognition patient is unsafe discharge until arrangements made by case management Case management for discharge planning Neuropsychiatry evaluated the patient recommended patient may improve with treatment, however indicates avoid benzodiazepines and antipsychotics Continue Prozac 40 mg daily Depakene 500 mg twice daily Seroquel 100 mg twice daily *Discussed with psychiatry again about patient's cognition issues. He indicated that the patient lacks capacity for signing AMA or to participate in discharge plan. He is recommending that he would invite the ethics committee to the hospital to have a discussion about patient care *Consulted case management for ethics committee review, awaiting response Mild malnutrition, secondary to poor by mouth intake Albumin 2.8 Prealbumin 19 However, patient actually has increase in weight of 6 pounds since admission. In the last 3 days it would appear that she's gained another 6 pounds Continue Remeron Dietary consulted who recommended ensure with breakfast lunch and there. May have muffin at bedtime, daily vitamin Recurrent falls, Patient moved close to nursing station Patient does state that she is having neck pain Patient denies any neurological symptoms of weakness, paresthesia, loss of bowel or bladder control Orthostatic vitals do show drop in systolic blood pressure when standing. Improved after hydration Status post 2 L normal saline and continue monitor orthostatic vitals MRI of the neck. Multilevel degenerative changes. Mild degree of canal stenosis C5-C6, anterior fusion C6-C7 MRI of thoracic and lumbar spine do not indicate any acute abnormality Clavicle x-ray shows nonacute distal clavicle fracture. Carotid ultrasound was unremarkable Echocardiogram indicate ejection fraction 50-55% without any abnormalities Physical therapy ordered for 5 days a week Multiple traumatic injuries, Patient laceration, subdural hemorrhage, ventricular hemorrhage, nasal fracture, C6 fracture, C1-C2 subluxation, C4 transverse process fracture, right rib fracture, L1 transverse process fracture, right pubic rami fracture Continue c-collar this time, however patient does not wear Follow-up cervical spine CT indicates no evidence of acute fracture. Postsurgical changes Specialist no longer following patient, patient will require outpatient follow-up if discharge Right breast abscess, improved Physical exam patient does have a erythematous area with drainage Ultrasound does show complex loculated collection measuring 2.4 x 1.7 x 1.8 cm. Representing breast abscess Status post Augmentin 500 mg twice daily for 10 days and Bactrim DS for 18 days Gen. surgery consulted who recommends no intervention at this time, Soft tissue ultrasound shows a improvement of the fluid collection. Hypothyroidism TSH 5.11 Free T4 0.57, free T3 1 0.47 Levothyroxine 25 g daily Monitor TSH every 6-8 weeks Hypertension, Amlodipine 10 mg daily DVT prevention Patient ambulating Sequential compression devices while in bed Records are reviewed. No change in current treatment plan. Case management for discharge planning. Discharge Planning Case management for discharge planning, Conrado Mariee Jan 07, 2018 09:52
[2018-01-07 20:00] VITALS: BP 147/85; PULSE 92; RESP 20; TEMP 96.2; O2SAT 93
[2018-01-07] MEDS: MIRTAZAPINE 15 MG TAB PO SCH (20:20)
[2018-01-08] MEDS: LEVOTHYROXINE SODIUM 25 MCG TAB PO SCH (05:00)
--- NOTE | 2018-01-08 07:50 | HHI.PR ---
Subjective Remarks Patient seen and examined today for follow-up on unsafe discharge due to cognition. Patient does not have any new complaints. Awaiting case management discharge planning. Patient remains afebrile. No indication of any recent falls Objective Vitals Vital Signs Date Time Temp Pulse Resp B/P (MAP) Pulse Ox O2 Delivery O2 Flow Rate FiO2 01/07/18 20:00 96.2 92 20 147/85 (105) 93 01/07/18 08:00 96.4 74 14 144/86 (105) 93 I/O 01/07/18 01/07/18 01/07/18 01/08/18 01/08/18 01/08/18 07:00 15:00 23:00 07:00 15:00 23:00 Intake Total 800 ml 459 ml 222 ml 120 ml Balance 800 ml 459 ml 222 ml 120 ml Intake Oral 800 ml 459 ml 222 ml 120 ml # Voids 4 4 1 # Bowel Movements 2 0 0 Objective Remarks GENERAL: Well-developed, well-nourished, in no acute distress. alert and orientated waxes and wanes daily HEENT: Head is normocephalic without any lesions or masses noted. Facial features are symmetric. Eyes: Extraocular muscles are intact. Conjunctivae were clear. NECK: C-collar in on table at bedside CARDIAC: Regular rhythm, regular rate. S1/S2 are heard. No murmurs gallops or rubs. LUNGS: Clear to auscultation bilaterally. No wheeze, rhonchi or rales. No use of accessory muscles on inspiration or expiration. ABDOMEN: Soft, nontender. Nondistended. Bowel sounds heard in all 4 quadrants. No organomegaly or masses. Negative rebound, negative guarding EXTREMITIES: No edema, pulses are equal bilaterally. No cyanosis or clubbing NEUROLOGY: Mood and affect appear appropriate. Cranial nerves II through XII grossly intact moving all extremities, speech is clear Urinary Catheter: No Vascular Central Line Catheter: No A/P Assessment and Plan Inability to care for self, unsafe discharge due to cognition Initially he was indicated patient cannot walk, patient is walking at this time, PT and OT recommending supervision at home for safety Speech therapy following the patient intermittently for cognitive evaluations. 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 MIni mental state 28/30, recommended avoid antipsychotics and benzodiazepine. Recommending Depakote or carbamazepine Patient is medically stable for discharge, however due to underlying psychiatric/cognition patient is unsafe discharge until arrangements made by case management Case management for discharge planning Neuropsychiatry evaluated the patient recommended patient may improve with treatment, however indicates avoid benzodiazepines and antipsychotics Continue Prozac 40 mg daily Depakene 500 mg twice daily Seroquel 100 mg twice daily *Discussed with psychiatry again about patient's cognition issues. He indicated that the patient lacks capacity for signing AMA or to participate in discharge plan. He is recommending that he would invite the ethics committee to the hospital to have a discussion about patient care *Consulted case management for ethics committee review, awaiting response Mild malnutrition, secondary to poor by mouth intake Albumin 2.8 Prealbumin 19 However, patient actually has increase in weight of 6 pounds since admission. In the last 3 days it would appear that she's gained another 6 pounds Continue Remeron Dietary consulted who recommended ensure with breakfast lunch and there. May have muffin at bedtime, daily vitamin Recurrent falls, Patient moved close to nursing station Patient does state that she is having neck pain Patient denies any neurological symptoms of weakness, paresthesia, loss of bowel or bladder control Orthostatic vitals do show drop in systolic blood pressure when standing. Improved after hydration Status post 2 L normal saline and continue monitor orthostatic vitals MRI of the neck. Multilevel degenerative changes. Mild degree of canal stenosis C5-C6, anterior fusion C6-C7 MRI of thoracic and lumbar spine do not indicate any acute abnormality Clavicle x-ray shows nonacute distal clavicle fracture. Carotid ultrasound was unremarkable Echocardiogram indicate ejection fraction 50-55% without any abnormalities Physical therapy ordered for 5 days a week Multiple traumatic injuries, Patient laceration, subdural hemorrhage, ventricular hemorrhage, nasal fracture, C6 fracture, C1-C2 subluxation, C4 transverse process fracture, right rib fracture, L1 transverse process fracture, right pubic rami fracture Continue c-collar this time, however patient does not wear Follow-up cervical spine CT indicates no evidence of acute fracture. Postsurgical changes Specialist no longer following patient, patient will require outpatient follow-up if discharge Right breast abscess, improved Physical exam patient does have a erythematous area with drainage Ultrasound does show complex loculated collection measuring 2.4 x 1.7 x 1.8 cm. Representing breast abscess Status post Augmentin 500 mg twice daily for 10 days and Bactrim DS for 18 days Gen. surgery consulted who recommends no intervention at this time, Soft tissue ultrasound shows a improvement of the fluid collection. Hypothyroidism TSH 5.11 Free T4 0.57, free T3 1 0.47 Levothyroxine 25 g daily Monitor TSH every 6-8 weeks Hypertension, Amlodipine 10 mg daily DVT prevention Patient ambulating Sequential compression devices while in bed Records are reviewed. Case management for discharge planning. No change in current treatment plan. Discharge Planning Case management for discharge planning, Conrado Mariee Jan 08, 2018 07:50
[2018-01-08] MEDS: QUEtiapine FUMARATE 100 MG TAB PO SCH ×2 (08:38→21:03)
[2018-01-08] MEDS: FLUoxetine HCL 20 MG CAP PO SCH (08:38)
[2018-01-08] MEDS: VALPROIC ACID 250 MG CAP PO SCH ×2 (08:38→21:04)
[2018-01-08] MEDS: MULTIVITAMIN TAB PO SCH (08:38)
[2018-01-08] MEDS: ACETAMINOPHEN 325 MG TAB PO PRN ×2 (08:47→21:05)
[2018-01-08 09:00] VITALS: BP 152/97; PULSE 76; RESP 18; TEMP 97.3; O2SAT 93
[2018-01-08 20:42] VITALS: BP 128/82; PULSE 80; RESP 20; TEMP 97.2; O2SAT 93
[2018-01-08] MEDS: MIRTAZAPINE 15 MG TAB PO SCH (21:03)
[2018-01-09] MEDS: LEVOTHYROXINE SODIUM 25 MCG TAB PO SCH (06:27)
--- NOTE | 2018-01-09 07:18 | HHI.PR ---
Subjective Remarks Patient seen and examined today for follow-up on unsafe discharge due to cognition. Patient doing well. No change in clinical status. Vital signs are stable, afebrile Objective Vitals Vital Signs Date Time Temp Pulse Resp B/P (MAP) Pulse Ox O2 Delivery O2 Flow Rate FiO2 01/08/18 20:42 97.2 80 20 128/82 (97) 93 01/08/18 09:00 97.3 76 18 152/97 (115) 93 I/O 01/08/18 01/08/18 01/08/18 01/09/18 01/09/18 01/09/18 07:00 15:00 23:00 07:00 15:00 23:00 Intake Total 120 ml 1200 ml Balance 120 ml 1200 ml Intake Oral 120 ml 1200 ml # Voids 1 3 3 # Bowel Movements 0 Objective Remarks GENERAL: Well-developed, well-nourished, in no acute distress. alert and orientated waxes and wanes daily HEENT: Head is normocephalic without any lesions or masses noted. Facial features are symmetric. Eyes: Extraocular muscles are intact. Conjunctivae were clear. NECK: C-collar in on table at bedside CARDIAC: Regular rhythm, regular rate. S1/S2 are heard. No murmurs gallops or rubs. LUNGS: Clear to auscultation bilaterally. No wheeze, rhonchi or rales. No use of accessory muscles on inspiration or expiration. ABDOMEN: Soft, nontender. Nondistended. Bowel sounds heard in all 4 quadrants. No organomegaly or masses. Negative rebound, negative guarding EXTREMITIES: No edema, pulses are equal bilaterally. No cyanosis or clubbing NEUROLOGY: Mood and affect appear appropriate. Cranial nerves II through XII grossly intact moving all extremities, speech is clear Urinary Catheter: No Vascular Central Line Catheter: No A/P Assessment and Plan Inability to care for self, unsafe discharge due to cognition Initially he was indicated patient cannot walk, patient is walking at this time, PT and OT recommending supervision at home for safety Speech therapy following the patient intermittently for cognitive evaluations. 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 MIni mental state 28/30, recommended avoid antipsychotics and benzodiazepine. Recommending Depakote or carbamazepine Patient is medically stable for discharge, however due to underlying psychiatric/cognition patient is unsafe discharge until arrangements made by case management Case management for discharge planning Neuropsychiatry evaluated the patient recommended patient may improve with treatment, however indicates avoid benzodiazepines and antipsychotics Continue Prozac 40 mg daily Depakene 500 mg twice daily Seroquel 100 mg twice daily *Discussed with psychiatry again about patient's cognition issues. He indicated that the patient lacks capacity for signing AMA or to participate in discharge plan. He is recommending that he would invite the ethics committee to the hospital to have a discussion about patient care *Consulted case management for ethics committee review, awaiting response Mild malnutrition, secondary to poor by mouth intake Albumin 2.8 Prealbumin 19 However, patient actually has increase in weight of 6 pounds since admission. In the last 3 days it would appear that she's gained another 6 pounds Continue Remeron Dietary consulted who recommended ensure with breakfast lunch and there. May have muffin at bedtime, daily vitamin Recurrent falls, Patient moved close to nursing station Patient does state that she is having neck pain Patient denies any neurological symptoms of weakness, paresthesia, loss of bowel or bladder control Orthostatic vitals do show drop in systolic blood pressure when standing. Improved after hydration Status post 2 L normal saline and continue monitor orthostatic vitals MRI of the neck. Multilevel degenerative changes. Mild degree of canal stenosis C5-C6, anterior fusion C6-C7 MRI of thoracic and lumbar spine do not indicate any acute abnormality Clavicle x-ray shows nonacute distal clavicle fracture. Carotid ultrasound was unremarkable Echocardiogram indicate ejection fraction 50-55% without any abnormalities Physical therapy ordered for 5 days a week Multiple traumatic injuries, Patient laceration, subdural hemorrhage, ventricular hemorrhage, nasal fracture, C6 fracture, C1-C2 subluxation, C4 transverse process fracture, right rib fracture, L1 transverse process fracture, right pubic rami fracture Continue c-collar this time, however patient does not wear Follow-up cervical spine CT indicates no evidence of acute fracture. Postsurgical changes Specialist no longer following patient, patient will require outpatient follow-up if discharge Right breast abscess, improved Physical exam patient does have a erythematous area with drainage Ultrasound does show complex loculated collection measuring 2.4 x 1.7 x 1.8 cm. Representing breast abscess Status post Augmentin 500 mg twice daily for 10 days and Bactrim DS for 18 days Gen. surgery consulted who recommends no intervention at this time, Soft tissue ultrasound shows a improvement of the fluid collection. Hypothyroidism TSH 5.11 Free T4 0.57, free T3 1 0.47 Levothyroxine 25 g daily Monitor TSH every 6-8 weeks Hypertension, Amlodipine 10 mg daily DVT prevention Patient ambulating Sequential compression devices while in bed Records are reviewed. No change in current treatment plan. Case management for discharge planning. Discharge Planning Case management for discharge planning, Conrado Mariee Jan 09, 2018 07:18
[2018-01-09 07:50] VITALS: BP 148/83; PULSE 75; RESP 20; TEMP 97.3; O2SAT 95
[2018-01-09] MEDS: ACETAMINOPHEN 325 MG TAB PO PRN (11:53)
[2018-01-09] MEDS: MULTIVITAMIN TAB PO SCH (11:54)
[2018-01-09] MEDS: QUEtiapine FUMARATE 100 MG TAB PO SCH ×2 (11:54→21:09)
[2018-01-09] MEDS: VALPROIC ACID 250 MG CAP PO SCH ×2 (11:54→21:09)
[2018-01-09] MEDS: FLUoxetine HCL 20 MG CAP PO SCH (11:54)
[2018-01-09 20:14] VITALS: BP 140/99; PULSE 75; RESP 16; TEMP 97.9; O2SAT 94
[2018-01-09] MEDS: MIRTAZAPINE 15 MG TAB PO SCH (21:09)
[2018-01-10] MEDS: LEVOTHYROXINE SODIUM 25 MCG TAB PO SCH (06:19)
[2018-01-10] MEDS: ACETAMINOPHEN 325 MG TAB PO PRN ×2 (06:23→21:18)
--- NOTE | 2018-01-10 07:52 | HHI.PR ---
Subjective Remarks Patient seen and examined today for follow-up on unsafe discharge due to cognition. Patient doing well. Denies any new complaints. Denies any recurrent falls. She states that her falling is all over. Afebrile Objective Vitals Vital Signs Date Time Temp Pulse Resp B/P (MAP) Pulse Ox O2 Delivery O2 Flow Rate FiO2 01/09/18 20:14 97.9 75 16 140/99 (113) 94 01/09/18 13:31 18 I/O 01/09/18 01/09/18 01/09/18 01/10/18 01/10/18 01/10/18 07:00 15:00 23:00 07:00 15:00 23:00 Intake Total 950 ml Balance 950 ml Intake Oral 950 ml # Voids 3 6 2 # Bowel Movements 2 1 Objective Remarks GENERAL: Well-developed, well-nourished, in no acute distress. alert and orientated waxes and wanes daily HEENT: Head is normocephalic without any lesions or masses noted. Facial features are symmetric. Eyes: Extraocular muscles are intact. Conjunctivae were clear. NECK: C-collar in on table at bedside CARDIAC: Regular rhythm, regular rate. S1/S2 are heard. No murmurs gallops or rubs. LUNGS: Clear to auscultation bilaterally. No wheeze, rhonchi or rales. No use of accessory muscles on inspiration or expiration. ABDOMEN: Soft, nontender. Nondistended. Bowel sounds heard in all 4 quadrants. No organomegaly or masses. Negative rebound, negative guarding EXTREMITIES: No edema, pulses are equal bilaterally. No cyanosis or clubbing NEUROLOGY: Mood and affect appear appropriate. Cranial nerves II through XII grossly intact moving all extremities, speech is clear Urinary Catheter: No Vascular Central Line Catheter: No A/P Assessment and Plan Inability to care for self, unsafe discharge due to cognition Initially he was indicated patient cannot walk, patient is walking at this time, PT and OT recommending supervision at home for safety Speech therapy following the patient intermittently for cognitive evaluations. 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 MIni mental state 28/30, recommended avoid antipsychotics and benzodiazepine. Recommending Depakote or carbamazepine Patient is medically stable for discharge, however due to underlying psychiatric/cognition patient is unsafe discharge until arrangements made by case management Case management for discharge planning Neuropsychiatry evaluated the patient recommended patient may improve with treatment, however indicates avoid benzodiazepines and antipsychotics Continue Prozac 40 mg daily Depakene 500 mg twice daily Seroquel 100 mg twice daily *Discussed with psychiatry again about patient's cognition issues. He indicated that the patient lacks capacity for signing AMA or to participate in discharge plan. He is recommending that he would invite the ethics committee to the hospital to have a discussion about patient care *Consulted case management for ethics committee review, awaiting response Mild malnutrition, secondary to poor by mouth intake Albumin 2.8 Prealbumin 19 However, patient actually has increase in weight of 6 pounds since admission. In the last 3 days it would appear that she's gained another 6 pounds Continue Remeron Dietary consulted who recommended ensure with breakfast lunch and there. May have muffin at bedtime, daily vitamin Recurrent falls, Patient moved close to nursing station Patient does state that she is having neck pain Patient denies any neurological symptoms of weakness, paresthesia, loss of bowel or bladder control Orthostatic vitals do show drop in systolic blood pressure when standing. Improved after hydration Status post 2 L normal saline and continue monitor orthostatic vitals MRI of the neck. Multilevel degenerative changes. Mild degree of canal stenosis C5-C6, anterior fusion C6-C7 MRI of thoracic and lumbar spine do not indicate any acute abnormality Clavicle x-ray shows nonacute distal clavicle fracture. Carotid ultrasound was unremarkable Echocardiogram indicate ejection fraction 50-55% without any abnormalities Physical therapy ordered for 5 days a week Multiple traumatic injuries, Patient laceration, subdural hemorrhage, ventricular hemorrhage, nasal fracture, C6 fracture, C1-C2 subluxation, C4 transverse process fracture, right rib fracture, L1 transverse process fracture, right pubic rami fracture Continue c-collar this time, however patient does not wear Follow-up cervical spine CT 102/ indicates no evidence of acute fracture. Postsurgical changes Specialist no longer following patient, patient will require outpatient follow-up if discharge Right breast abscess, improved Physical exam patient does have a erythematous area with drainage Ultrasound does show complex loculated collection measuring 2.4 x 1.7 x 1.8 cm. Representing breast abscess Status post Augmentin 500 mg twice daily for 10 days and Bactrim DS for 18 days Gen. surgery consulted who recommends no intervention at this time, Soft tissue ultrasound shows a improvement of the fluid collection. Hypothyroidism TSH 5.11 Free T4 0.57, free T3 1 0.47 Levothyroxine 25 g daily Monitor TSH every 6-8 weeks Hypertension, Amlodipine 10 mg daily DVT prevention Patient ambulating Sequential compression devices while in bed Records are reviewed. Case management for discharge planning. No change in current treatment plan. Discharge Planning Case management for discharge planning, Conrado Mariee Jan 10, 2018 07:52
[2018-01-10 08:00] VITALS: BP 119/82; PULSE 79; RESP 16; TEMP 97.8; O2SAT 96
[2018-01-10] MEDS: VALPROIC ACID 250 MG CAP PO SCH ×2 (09:14→21:18)
[2018-01-10] MEDS: FLUoxetine HCL 20 MG CAP PO SCH (09:14)
[2018-01-10] MEDS: MULTIVITAMIN TAB PO SCH (09:15)
[2018-01-10] MEDS: QUEtiapine FUMARATE 100 MG TAB PO SCH ×2 (09:15→21:18)
[2018-01-10 20:00] VITALS: BP 135/92; PULSE 82; RESP 19; TEMP 97.7; O2SAT 95
[2018-01-10] MEDS: MIRTAZAPINE 15 MG TAB PO SCH (21:19)
[2018-01-11] MEDS: ACETAMINOPHEN 325 MG TAB PO PRN ×2 (06:18→20:59)
[2018-01-11] MEDS: LEVOTHYROXINE SODIUM 25 MCG TAB PO SCH (06:18)
[2018-01-11 08:00] VITALS: BP 134/82; PULSE 78; RESP 18; TEMP 98.1; O2SAT 98
[2018-01-11] MEDS: FLUoxetine HCL 20 MG CAP PO SCH (10:23)
[2018-01-11] MEDS: QUEtiapine FUMARATE 100 MG TAB PO SCH ×2 (10:23→20:58)
[2018-01-11] MEDS: MULTIVITAMIN TAB PO SCH (10:23)
[2018-01-11] MEDS: VALPROIC ACID 250 MG CAP PO SCH ×2 (10:23→21:06)
--- NOTE | 2018-01-11 13:20 | HHI.PR ---
Subjective Remarks Follow-up on unsafe discharge due to cognition. Patient seen and examined, lying in bed comfortably. Denies any new changes. No change in clinical condition. Vital signs stable. Objective Vitals Vital Signs Date Time Temp Pulse Resp B/P (MAP) Pulse Ox O2 Delivery O2 Flow Rate FiO2 01/11/18 08:00 98.1 78 18 134/82 (99) 98 01/11/18 07:18 17 01/10/18 20:00 97.7 82 19 135/92 (106) 95 I/O 01/10/18 01/10/18 01/10/18 01/11/18 01/11/18 01/11/18 07:00 15:00 23:00 07:00 15:00 23:00 Output Total 3 ml Balance -3 ml Output Urine Total 3 ml # Voids 2 # Bowel Movements 1 Imaging Last Impressions Clavicle X-Ray 12/16/17 0000 Signed Impressions: Service Date/Time: December 19:51 - CONCLUSION: Distal clavicle is fractured but this appears nonacute. No acute fracture demonstrated. Jovany Hayes MD Thoracic Spine MRI 12/01/17 0000 Signed Impressions: Service Date/Time: Friday, December 01, 2017 15:10 - CONCLUSION: Negative for acute process. Vimal Taylor MD FACR Lumbar Spine MRI 12/01/17 0000 Signed Impressions: Service Date/Time: Friday, December 01, 2017 15:10 - CONCLUSION: Negative MRI of the lumbar spine. Vimal Taylor MD FACR Carotid Artery Ultrasound 11/30/17 0000 Signed Impressions: Service Date/Time: Thursday, November 30, 2017 14:34 - CONCLUSION: 1. Mild plaque with no hemodynamically significant stenosis. Vertebral artery flow antegrade. Fadi Carolina MD Cervical Spine MRI 11/28/17 0000 Signed Impressions: Service Date/Time: Tuesday, November 28, 2017 15:10 - CONCLUSION: 1. Multilevel posterior disc osteophyte complexes as described above. 2. Anterior fusion C6- 7. Dylon Haddad MD Knee X-Ray 11/02/17 0000 Signed Impressions: Service Date/Time: Thursday, November 02, 2017 18:51 - CONCLUSION: Intact right knee. Jovany Hayes MD Head CT 11/02/17 0000 Signed Impressions: Service Date/Time: Thursday, November 02, 2017 18:35 - CONCLUSION: 1. No bleed or other acute intracranial abnormality. 2. Previously seen intracranial hemorrhage has resolved. A small area of chronic encephalomalacia has developed of the right frontal lobe. 3. Chronic periventricular white matter changes are again noted. Jovany Hayes MD Breast Ultrasound 10/15/17 0000 Signed Impressions: Service Date/Time: Sunday, October 15, 2017 09:06 - CONCLUSION: Persistent subcutaneous collection at the 12:00 position of the right breast. It has slightly decreased in size since the study dated 09/23/2017 and could represent an infectious process. Consider followup to confirm resolution. Jovany Quezada MD Chest X-Ray 09/03/17 0000 Signed Impressions: Service Date/Time: Sunday, September 03, 2017 17:02 - CONCLUSION: 1. Mild edema pattern. Subsegmental basilar airspace disease most characteristic of atelectasis.. Fadi Carolina MD Cervical Spine CT 09/02/17 0000 Signed Impressions: Service Date/Time: August 12:56 - CONCLUSION: Postsurgical changes from anterior cervical plate at C6-7. No evidence of compression deformity or spondylolisthesis. Arun Regan MD Pelvis X-Ray 06/30/17 0000 Signed Impressions: Service Date/Time: Friday, June 30, 2017 12:17 - CONCLUSION: No significant change has occurred. Carlos Capps MD Objective Remarks GENERAL: Well-nourished, well-developed female in [facility]. SKIN: Warm and dry. No rash. HEENT: Normocephalic. Atraumatic. Pupils equal and round. No scleral icterus. No injection or drainage. No nasal bleeding or discharge. Mucous membranes pink and moist. NECK: Supple. Trachea midline. CARDIOVASCULAR: Regular rate and rhythm. S1, S2 noted. No murmur appreciated. RESPIRATORY: No accessory muscle use. Clear to auscultation. Breath sounds equal bilaterally. GASTROINTESTINAL: Abdomen soft, non-tender, nondistended. Normoactive bowel sounds x4. No guarding noted. MUSCULOSKELETAL: No obvious deformities. Extremities without clubbing, cyanosis , or edema. NEUROLOGICAL: Awake and alert. No obvious cranial nerve deficits. Motor grossly within normal limits. 5/5 muscle strength in bilateral upper and lower extremities. Normal speech. PSYCHIATRIC: Appropriate mood and affect. A/P Problem List: (1) Alcohol dependence in controlled environment ICD Code: F10.20 - Alcohol dependence, uncomplicated Status: Chronic (2) Facial injury ICD Code: S09.93XA - Unspecified injury of face, initial encounter Status: Acute (3) Fall ICD Code: W19.XXXA - Unspecified fall, initial encounter Status: Acute (4) Hypertension ICD Code: I10 - Essential (primary) hypertension Status: Acute (5) Pelvic fracture ICD Code: S32.9XXA - Fracture of unspecified parts of lumbosacral spine and pelvis, initial encounter for closed fracture Status: Acute (6) C1-C2 subluxation ICD Code: S13.120A - Subluxation of C1/C2 cervical vertebrae, initial encounter Status: Acute (7) C6 cervical fracture ICD Code: S12.500A - Unspecified displaced fracture of sixth cervical vertebra , initial encounter for closed fracture Status: Acute (8) Traumatic brain injury ICD Code: S06.9X9A - Unspecified intracranial injury with loss of consciousness of unspecified duration, initial encounter Status: Acute (9) Nasal fracture ICD Code: S02.2XXA - Fracture of nasal bones, initial encounter for closed fracture Status: Acute (10) Mild neurocognitive disorder ICD Code: G31.84 - Mild cognitive impairment, so stated Status: Acute (11) Intracranial bleed ICD Code: I62.9 - Nontraumatic intracranial hemorrhage, unspecified Status: Acute Assessment and Plan Inability to care for self, unsafe discharge due to cognition PT and OT recommending supervision at home for safety. Speech therapy following the patient intermittently for cognitive evaluations. 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 Mini mental state 28/30, recommended avoid antipsychotics and benzodiazepine. Recommending Depakote or carbamazepine. Patient is medically stable for discharge, however due to underlying psychiatric/cognition patient is unsafe discharge until arrangements made by case management. Case management for discharge planning. Neuropsychiatry evaluated the patient recommended patient may improve with treatment, however indicates avoid benzodiazepines and antipsychotics Continue Prozac 40 mg daily Depakene 500 mg twice daily Seroquel 100 mg twice daily *Psychiatry indicated that the patient lacks capacity for signing AMA or to participate in discharge plan. He is recommending that he would invite the ethics committee to the hospital to have a discussion about patient care *Consulted case management for ethics committee review, awaiting response Recurrent falls. Resolved. Patient moved close to nursing station. Patient denies any neurological symptoms of weakness, paresthesia, loss of bowel or bladder control Orthostatic vitals do show drop in systolic blood pressure when standing. Improved after hydration. MRI of the neck. Multilevel degenerative changes. Mild degree of canal stenosis C5-C6, anterior fusion C6-C7 MRI of thoracic and lumbar spine do not indicate any acute abnormality Carotid ultrasound was unremarkable. Echocardiogram indicate ejection fraction 50-55% without any abnormalities Physical therapy ordered for 5 days a week Mild malnutrition, secondary to poor by mouth intake Albumin 2.8. Prealbumin 19. After review of weight trend, has been gaining weight. Continue Remeron. Dietary consulted who recommended ensure with breakfast lunch and there. May have muffin at bedtime, daily vitamin. Multiple traumatic injuries Patient laceration, subdural hemorrhage, ventricular hemorrhage, nasal fracture, C6 fracture, C1-C2 subluxation, C4 transverse process fracture, right rib fracture, L1 transverse process fracture, right pubic rami fracture Continue c-collar this time, however patient does not wear Follow-up cervical spine CT indicates no evidence of acute fracture. Postsurgical changes Specialist no longer following patient, patient will require outpatient follow-up if discharge Right breast abscess, Improved. Physical exam shows improvement. Ultrasound does show complex loculated collection measuring 2.4 x 1.7 x 1.8 cm. Representing breast abscess Status post Augmentin 500 mg twice daily for 10 days (end date 10/25/17). Finished Bactrim DS for 18 days Gen. surgery consulted who recommends no intervention at this time. Soft tissue ultrasound shows a improvement of the fluid collection. Attempting to arrange outpatient mammogram. Continue to follow. Hypothyroidism TSH 5.11 Free T4 0.57, free T3 1 0.47 Levothyroxine 25 g daily Monitor TSH every 6-8 weeks Hypertension Amlodipine 10 mg daily DVT prevention Patient ambulating Sequential compression devices while in bed Records were reviewed. Awaiting case management for discharge planning, No change in current treatment plan. Discharge Planning Due to underlying psychiatric/cognition patient is unsafe discharge until arrangements made by case management. Problem Qualifiers (1) Hypertension: Qualified Codes: I10 - Essential (primary) hypertension Alyssa Means Jan 11, 2018 13:20
[2018-01-11 20:00] VITALS: BP 135/78; PULSE 84; RESP 20; TEMP 97.7; O2SAT 93
[2018-01-11] MEDS: MIRTAZAPINE 15 MG TAB PO SCH (20:58)
[2018-01-12] MEDS: LEVOTHYROXINE SODIUM 25 MCG TAB PO SCH (06:26)
[2018-01-12] MEDS: ACETAMINOPHEN 325 MG TAB PO PRN (06:27)
[2018-01-12 08:00] VITALS: BP 132/81; PULSE 79; RESP 20; TEMP 99.4; O2SAT 94
--- NOTE | 2018-01-12 10:04 | HHI.PR ---
Subjective Remarks Follow-up unsafe discharge due to cognition. Patient seen and examined, sitting up in bed comfortably in no apparent distress. Eating well. Denies any pain. No acute events overnight. Vital signs stable. Afebrile. Objective Vitals Vital Signs Date Time Temp Pulse Resp B/P (MAP) Pulse Ox O2 Delivery O2 Flow Rate FiO2 01/12/18 08:00 99.4 79 20 132/81 (98) 94 01/11/18 20:00 97.7 84 20 135/78 (97) 93 I/O 01/11/18 01/11/18 01/11/18 01/12/18 01/12/18 01/12/18 07:00 15:00 23:00 07:00 15:00 23:00 Intake Total 0 ml Output Total 3 ml Balance -3 ml 0 ml Intake Oral 0 ml Output Urine Total 3 ml # Voids 0 # Bowel Movements 0 Imaging Last Impressions Clavicle X-Ray 12/16/17 0000 Signed Impressions: Service Date/Time: December 19:51 - CONCLUSION: Distal clavicle is fractured but this appears nonacute. No acute fracture demonstrated. Jovany Hayes MD Thoracic Spine MRI 12/01/17 0000 Signed Impressions: Service Date/Time: Friday, December 01, 2017 15:10 - CONCLUSION: Negative for acute process. Vimal Taylor MD FACR Lumbar Spine MRI 12/01/17 0000 Signed Impressions: Service Date/Time: Friday, December 01, 2017 15:10 - CONCLUSION: Negative MRI of the lumbar spine. Vimal Taylor MD FACR Carotid Artery Ultrasound 11/30/17 0000 Signed Impressions: Service Date/Time: Thursday, November 30, 2017 14:34 - CONCLUSION: 1. Mild plaque with no hemodynamically significant stenosis. Vertebral artery flow antegrade. Fadi Carolina MD Cervical Spine MRI 11/28/17 0000 Signed Impressions: Service Date/Time: Tuesday, November 28, 2017 15:10 - CONCLUSION: 1. Multilevel posterior disc osteophyte complexes as described above. 2. Anterior fusion C6- 7. Dylon Haddad MD Knee X-Ray 11/02/17 0000 Signed Impressions: Service Date/Time: Thursday, November 02, 2017 18:51 - CONCLUSION: Intact right knee. Jovany Hayes MD Head CT 11/02/17 0000 Signed Impressions: Service Date/Time: Thursday, November 02, 2017 18:35 - CONCLUSION: 1. No bleed or other acute intracranial abnormality. 2. Previously seen intracranial hemorrhage has resolved. A small area of chronic encephalomalacia has developed of the right frontal lobe. 3. Chronic periventricular white matter changes are again noted. Jovany Hayes MD Breast Ultrasound 10/15/17 0000 Signed Impressions: Service Date/Time: Sunday, October 15, 2017 09:06 - CONCLUSION: Persistent subcutaneous collection at the 12:00 position of the right breast. It has slightly decreased in size since the study dated 09/23/2017 and could represent an infectious process. Consider followup to confirm resolution. Jovany Quezada MD Chest X-Ray 09/03/17 0000 Signed Impressions: Service Date/Time: Sunday, September 03, 2017 17:02 - CONCLUSION: 1. Mild edema pattern. Subsegmental basilar airspace disease most characteristic of atelectasis.. Fadi Carolina MD Cervical Spine CT 09/02/17 0000 Signed Impressions: Service Date/Time: August 12:56 - CONCLUSION: Postsurgical changes from anterior cervical plate at C6-7. No evidence of compression deformity or spondylolisthesis. Arun Regan MD Pelvis X-Ray 06/30/17 0000 Signed Impressions: Service Date/Time: Friday, June 30, 2017 12:17 - CONCLUSION: No significant change has occurred. Carlos Capps MD Objective Remarks GENERAL: Well-nourished, well-developed female in [facility]. SKIN: Warm and dry. No rash. HEENT: Normocephalic. Atraumatic. Pupils equal and round. No scleral icterus. No injection or drainage. No nasal bleeding or discharge. Mucous membranes pink and moist. NECK: Supple. Trachea midline. CARDIOVASCULAR: Regular rate and rhythm. S1, S2 noted. No murmur appreciated. RESPIRATORY: No accessory muscle use. Clear to auscultation. Breath sounds equal bilaterally. GASTROINTESTINAL: Abdomen soft, non-tender, nondistended. Normoactive bowel sounds x4. No guarding noted. MUSCULOSKELETAL: No obvious deformities. Extremities without clubbing, cyanosis , or edema. NEUROLOGICAL: Awake and alert. No obvious cranial nerve deficits. Motor grossly within normal limits. 5/5 muscle strength in bilateral upper and lower extremities. Normal speech. PSYCHIATRIC: Appropriate mood and affect. A/P Problem List: (1) Alcohol dependence in controlled environment ICD Code: F10.20 - Alcohol dependence, uncomplicated Status: Chronic (2) Facial injury ICD Code: S09.93XA - Unspecified injury of face, initial encounter Status: Acute (3) Fall ICD Code: W19.XXXA - Unspecified fall, initial encounter Status: Acute (4) Hypertension ICD Code: I10 - Essential (primary) hypertension Status: Acute (5) Pelvic fracture ICD Code: S32.9XXA - Fracture of unspecified parts of lumbosacral spine and pelvis, initial encounter for closed fracture Status: Acute (6) C1-C2 subluxation ICD Code: S13.120A - Subluxation of C1/C2 cervical vertebrae, initial encounter Status: Acute (7) C6 cervical fracture ICD Code: S12.500A - Unspecified displaced fracture of sixth cervical vertebra , initial encounter for closed fracture Status: Acute (8) Traumatic brain injury ICD Code: S06.9X9A - Unspecified intracranial injury with loss of consciousness of unspecified duration, initial encounter Status: Acute (9) Nasal fracture ICD Code: S02.2XXA - Fracture of nasal bones, initial encounter for closed fracture Status: Acute (10) Mild neurocognitive disorder ICD Code: G31.84 - Mild cognitive impairment, so stated Status: Acute (11) Intracranial bleed ICD Code: I62.9 - Nontraumatic intracranial hemorrhage, unspecified Status: Acute Assessment and Plan Inability to care for self, unsafe discharge due to cognition PT and OT recommending supervision at home for safety. Speech therapy following the patient intermittently for cognitive evaluations. 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 Mini mental state 28/30, recommended avoid antipsychotics and benzodiazepine. Recommending Depakote or carbamazepine. Patient is medically stable for discharge, however due to underlying psychiatric/cognition patient is unsafe discharge until arrangements made by case management. Case management for discharge planning. Neuropsychiatry evaluated the patient recommended patient may improve with treatment, however indicates avoid benzodiazepines and antipsychotics Continue Prozac 40 mg daily Depakene 500 mg twice daily Seroquel 100 mg twice daily *Psychiatry indicated that the patient lacks capacity for signing AMA or to participate in discharge plan. He is recommending that he would invite the ethics committee to the hospital to have a discussion about patient care *Consulted case management for ethics committee review, awaiting response Recurrent falls. Resolved. Patient moved close to nursing station. Patient denies any neurological symptoms of weakness, paresthesia, loss of bowel or bladder control Orthostatic vitals do show drop in systolic blood pressure when standing. Improved after hydration. MRI of the neck. Multilevel degenerative changes. Mild degree of canal stenosis C5-C6, anterior fusion C6-C7 MRI of thoracic and lumbar spine do not indicate any acute abnormality Carotid ultrasound was unremarkable. Echocardiogram indicate ejection fraction 50-55% without any abnormalities Physical therapy ordered for 5 days a week Mild malnutrition, secondary to poor by mouth intake Albumin 2.8. Prealbumin 19. After review of weight trend, has been gaining weight. Continue Remeron. Dietary consulted who recommended ensure with breakfast lunch and there. May have muffin at bedtime, daily vitamin. Multiple traumatic injuries Patient laceration, subdural hemorrhage, ventricular hemorrhage, nasal fracture, C6 fracture, C1-C2 subluxation, C4 transverse process fracture, right rib fracture, L1 transverse process fracture, right pubic rami fracture Continue c-collar this time, however patient does not wear Follow-up cervical spine CT indicates no evidence of acute fracture. Postsurgical changes Specialist no longer following patient, patient will require outpatient follow-up if discharge Right breast abscess, Improved. Physical exam shows improvement. Ultrasound does show complex loculated collection measuring 2.4 x 1.7 x 1.8 cm. Representing breast abscess Status post Augmentin 500 mg twice daily for 10 days (end date 10/25/17). Finished Bactrim DS for 18 days Gen. surgery consulted who recommends no intervention at this time. Soft tissue ultrasound shows a improvement of the fluid collection. Attempting to arrange outpatient mammogram. Continue to follow. Hypothyroidism TSH 5.11 Free T4 0.57, free T3 1 0.47 Levothyroxine 25 g daily Monitor TSH every 6-8 weeks Hypertension Amlodipine 10 mg daily DVT prevention Patient ambulating Sequential compression devices while in bed Records were reviewed. Awaiting case management for discharge planning, No change in current treatment plan. Discharge Planning Due to underlying psychiatric/cognition patient is unsafe discharge until arrangements made by case management. Problem Qualifiers (1) Hypertension: Qualified Codes: I10 - Essential (primary) hypertension Alyssa Means Jan 12, 2018 10:04
[2018-01-12] MEDS: MULTIVITAMIN TAB PO SCH (10:09)
[2018-01-12] MEDS: QUEtiapine FUMARATE 100 MG TAB PO SCH ×2 (10:09→20:52)
[2018-01-12] MEDS: FLUoxetine HCL 20 MG CAP PO SCH (10:09)
[2018-01-12] MEDS: VALPROIC ACID 250 MG CAP PO SCH ×2 (10:09→20:52)
[2018-01-12 20:00] VITALS: BP 142/78; PULSE 82; RESP 20; TEMP 98; O2SAT 93
[2018-01-12] MEDS: MIRTAZAPINE 15 MG TAB PO SCH (20:52)
[2018-01-13] MEDS: LEVOTHYROXINE SODIUM 25 MCG TAB PO SCH (04:17)
[2018-01-13] MEDS: QUEtiapine FUMARATE 100 MG TAB PO SCH ×2 (08:20→20:51)
[2018-01-13] MEDS: FLUoxetine HCL 20 MG CAP PO SCH (08:20)
[2018-01-13] MEDS: MULTIVITAMIN TAB PO SCH (08:20)
[2018-01-13] MEDS: VALPROIC ACID 250 MG CAP PO SCH ×2 (08:21→20:52)
[2018-01-13 09:14] VITALS: BP 156/96; PULSE 75; RESP 16; TEMP 98.1; O2SAT 92
--- NOTE | 2018-01-13 10:13 | HHI.PR ---
Subjective Remarks Unsafe discharge due to cognition. Patient seen and examined, lying in bed comfortably, no reports of any acute events overnight. Denies any pain. Eating well. Denies any nausea, vomiting, diarrhea dysuria. No change in clinical condition. Vital signs are stable. Objective Vitals Vital Signs Date Time Temp Pulse Resp B/P (MAP) Pulse Ox O2 Delivery O2 Flow Rate FiO2 01/13/18 09:14 98.1 75 16 156/96 (116) 92 01/12/18 20:00 98.0 82 20 142/78 (99) 93 I/O 01/12/18 01/12/18 01/12/18 01/13/18 01/13/18 01/13/18 07:00 15:00 23:00 07:00 15:00 23:00 Intake Total 0 ml 600 ml 120 ml Balance 0 ml 600 ml 120 ml Intake Oral 0 ml 600 ml 120 ml # Voids 0 2 1 # Bowel Movements 0 0 Imaging Last Impressions Clavicle X-Ray 12/16/17 0000 Signed Impressions: Service Date/Time: December 19:51 - CONCLUSION: Distal clavicle is fractured but this appears nonacute. No acute fracture demonstrated. Jovany Hayes MD Thoracic Spine MRI 12/01/17 0000 Signed Impressions: Service Date/Time: Friday, December 01, 2017 15:10 - CONCLUSION: Negative for acute process. Vimal Taylor MD FACR Lumbar Spine MRI 12/01/17 0000 Signed Impressions: Service Date/Time: Friday, December 01, 2017 15:10 - CONCLUSION: Negative MRI of the lumbar spine. Vimal Taylor MD FACR Carotid Artery Ultrasound 11/30/17 0000 Signed Impressions: Service Date/Time: Thursday, November 30, 2017 14:34 - CONCLUSION: 1. Mild plaque with no hemodynamically significant stenosis. Vertebral artery flow antegrade. Fadi Carolina MD Cervical Spine MRI 11/28/17 0000 Signed Impressions: Service Date/Time: Tuesday, November 28, 2017 15:10 - CONCLUSION: 1. Multilevel posterior disc osteophyte complexes as described above. 2. Anterior fusion C6- 7. Dylon Haddad MD Knee X-Ray 11/02/17 0000 Signed Impressions: Service Date/Time: Thursday, November 02, 2017 18:51 - CONCLUSION: Intact right knee. Jovany Hayes MD Head CT 11/02/17 0000 Signed Impressions: Service Date/Time: Thursday, November 02, 2017 18:35 - CONCLUSION: 1. No bleed or other acute intracranial abnormality. 2. Previously seen intracranial hemorrhage has resolved. A small area of chronic encephalomalacia has developed of the right frontal lobe. 3. Chronic periventricular white matter changes are again noted. Jovany Hayes MD Breast Ultrasound 10/15/17 0000 Signed Impressions: Service Date/Time: Sunday, October 15, 2017 09:06 - CONCLUSION: Persistent subcutaneous collection at the 12:00 position of the right breast. It has slightly decreased in size since the study dated 09/23/2017 and could represent an infectious process. Consider followup to confirm resolution. Jovany Quezada MD Chest X-Ray 09/03/17 0000 Signed Impressions: Service Date/Time: Sunday, September 03, 2017 17:02 - CONCLUSION: 1. Mild edema pattern. Subsegmental basilar airspace disease most characteristic of atelectasis.. Fadi Carolina MD Cervical Spine CT 09/02/17 0000 Signed Impressions: Service Date/Time: August 12:56 - CONCLUSION: Postsurgical changes from anterior cervical plate at C6-7. No evidence of compression deformity or spondylolisthesis. Arun Regan MD Pelvis X-Ray 06/30/17 0000 Signed Impressions: Service Date/Time: Friday, June 30, 2017 12:17 - CONCLUSION: No significant change has occurred. Carlos Capps MD Objective Remarks GENERAL: Well-nourished, well-developed female in NAD. SKIN: Warm and dry. No rash. HEENT: Normocephalic. Atraumatic. Pupils equal and round. No scleral icterus. No injection or drainage. No nasal bleeding or discharge. Mucous membranes pink and moist. NECK: Supple. Trachea midline. CARDIOVASCULAR: Regular rate and rhythm. S1, S2 noted. No murmur appreciated. RESPIRATORY: No accessory muscle use. Clear to auscultation. Breath sounds equal bilaterally. GASTROINTESTINAL: Abdomen soft, non-tender, nondistended. Normoactive bowel sounds x4. No guarding noted. MUSCULOSKELETAL: No obvious deformities. Extremities without clubbing, cyanosis , or edema. NEUROLOGICAL: Awake and alert. No obvious cranial nerve deficits. Motor grossly within normal limits. 5/5 muscle strength in bilateral upper and lower extremities. Normal speech. PSYCHIATRIC: Appropriate mood and affect. A/P Problem List: (1) Alcohol dependence in controlled environment ICD Code: F10.20 - Alcohol dependence, uncomplicated Status: Chronic (2) Facial injury ICD Code: S09.93XA - Unspecified injury of face, initial encounter Status: Acute (3) Fall ICD Code: W19.XXXA - Unspecified fall, initial encounter Status: Acute (4) Hypertension ICD Code: I10 - Essential (primary) hypertension Status: Acute (5) Pelvic fracture ICD Code: S32.9XXA - Fracture of unspecified parts of lumbosacral spine and pelvis, initial encounter for closed fracture Status: Acute (6) C1-C2 subluxation ICD Code: S13.120A - Subluxation of C1/C2 cervical vertebrae, initial encounter Status: Acute (7) C6 cervical fracture ICD Code: S12.500A - Unspecified displaced fracture of sixth cervical vertebra , initial encounter for closed fracture Status: Acute (8) Traumatic brain injury ICD Code: S06.9X9A - Unspecified intracranial injury with loss of consciousness of unspecified duration, initial encounter Status: Acute (9) Nasal fracture ICD Code: S02.2XXA - Fracture of nasal bones, initial encounter for closed fracture Status: Acute (10) Mild neurocognitive disorder ICD Code: G31.84 - Mild cognitive impairment, so stated Status: Acute (11) Intracranial bleed ICD Code: I62.9 - Nontraumatic intracranial hemorrhage, unspecified Status: Acute Assessment and Plan Inability to care for self, unsafe discharge due to cognition PT and OT recommending supervision at home for safety. Speech therapy following the patient intermittently for cognitive evaluations. 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 Mini mental state 28/30, recommended avoid antipsychotics and benzodiazepine. Recommending Depakote or carbamazepine. Patient is medically stable for discharge, however due to underlying psychiatric/cognition patient is unsafe discharge until arrangements made by case management. Case management for discharge planning. Neuropsychiatry evaluated the patient recommended patient may improve with treatment, however indicates avoid benzodiazepines and antipsychotics Continue Prozac 40 mg daily Depakene 500 mg twice daily Seroquel 100 mg twice daily *Psychiatry indicated that the patient lacks capacity for signing AMA or to participate in discharge plan. He is recommending that he would invite the ethics committee to the hospital to have a discussion about patient care *Consulted case management for ethics committee review, awaiting response Recurrent falls. Resolved. Patient moved close to nursing station. Patient denies any neurological symptoms of weakness, paresthesia, loss of bowel or bladder control Orthostatic vitals do show drop in systolic blood pressure when standing. Improved after hydration. MRI of the neck. Multilevel degenerative changes. Mild degree of canal stenosis C5-C6, anterior fusion C6-C7 MRI of thoracic and lumbar spine do not indicate any acute abnormality Carotid ultrasound was unremarkable. Echocardiogram indicate ejection fraction 50-55% without any abnormalities Physical therapy ordered for 5 days a week Mild malnutrition, secondary to poor by mouth intake Albumin 2.8. Prealbumin 19. After review of weight trend, has been gaining weight. Continue Remeron. Dietary consulted who recommended ensure with breakfast lunch and there. May have muffin at bedtime, daily vitamin. Multiple traumatic injuries Patient laceration, subdural hemorrhage, ventricular hemorrhage, nasal fracture, C6 fracture, C1-C2 subluxation, C4 transverse process fracture, right rib fracture, L1 transverse process fracture, right pubic rami fracture Continue c-collar this time, however patient does not wear Follow-up cervical spine CT indicates no evidence of acute fracture. Postsurgical changes Specialist no longer following patient, patient will require outpatient follow-up if discharge Right breast abscess, Improved. Physical exam shows improvement. Ultrasound does show complex loculated collection measuring 2.4 x 1.7 x 1.8 cm. Representing breast abscess Status post Augmentin 500 mg twice daily for 10 days (end date 10/25/17). Finished Bactrim DS for 18 days Gen. surgery consulted who recommends no intervention at this time. Soft tissue ultrasound shows a improvement of the fluid collection. Attempting to arrange outpatient mammogram. Continue to follow. Hypothyroidism TSH 5.11 Free T4 0.57, free T3 1 0.47 Levothyroxine 25 g daily Monitor TSH every 6-8 weeks Hypertension Amlodipine 10 mg daily DVT prevention Patient ambulating Sequential compression devices while in bed Records were reviewed. Awaiting case management for discharge planning, No change in current treatment plan. Discharge Planning Due to underlying psychiatric/cognition patient is unsafe discharge until arrangements made by case management. Problem Qualifiers (1) Hypertension: Qualified Codes: I10 - Essential (primary) hypertension Alyssa Means Jan 13, 2018 10:13
[2018-01-13] MEDS: ACETAMINOPHEN 325 MG TAB PO PRN (12:42)
[2018-01-13 20:00] VITALS: BP 135/79; PULSE 82; RESP 20; TEMP 97.3; O2SAT 93
[2018-01-13] MEDS: MIRTAZAPINE 15 MG TAB PO SCH (20:52)
[2018-01-14] VITALS: BP 104/61; PULSE 78; RESP 20; TEMP 97.9; O2SAT 95
[2018-01-14] MEDS: LEVOTHYROXINE SODIUM 25 MCG TAB PO SCH (05:05)
[2018-01-14 08:00] VITALS: BP 140/75; PULSE 82; RESP 14; TEMP 96.8; O2SAT 93
--- NOTE | 2018-01-14 10:32 | HHI.PR ---
Subjective Remarks Follow-up unsafe discharge due to cognition. Patient seen and examined, lying in bed comfortably. Pleasant. Denies any pain. Feels strong today. Has been tolerating p.o. intake. Denies any recent fever, chills, cough, shortness of breath, nausea, vomiting, diarrhea, abdominal pain, chest pain, headache. Objective Vitals Vital Signs Date Time Temp Pulse Resp B/P (MAP) Pulse Ox O2 Delivery O2 Flow Rate FiO2 01/14/18 08:00 96.8 82 14 140/75 (96) 93 01/14/18 00:00 97.9 78 20 104/61 (75) 95 01/13/18 20:00 97.3 82 20 135/79 (97) 93 I/O 01/13/18 01/13/18 01/13/18 01/14/18 01/14/18 01/14/18 07:00 15:00 23:00 07:00 15:00 23:00 Intake Total 120 ml 800 ml 360 ml 240 ml Balance 120 ml 800 ml 360 ml 240 ml Intake Oral 120 ml 800 ml 360 ml 240 ml IV Total 0 ml # Voids 1 3 2 # Bowel Movements 0 1 0 Imaging Last Impressions Clavicle X-Ray 12/16/17 0000 Signed Impressions: Service Date/Time: December 19:51 - CONCLUSION: Distal clavicle is fractured but this appears nonacute. No acute fracture demonstrated. Jovany Hayes MD Thoracic Spine MRI 12/01/17 0000 Signed Impressions: Service Date/Time: Friday, December 01, 2017 15:10 - CONCLUSION: Negative for acute process. Vimal Taylor MD FACR Lumbar Spine MRI 12/01/17 0000 Signed Impressions: Service Date/Time: Friday, December 01, 2017 15:10 - CONCLUSION: Negative MRI of the lumbar spine. Vimal Taylor MD FACR Carotid Artery Ultrasound 11/30/17 0000 Signed Impressions: Service Date/Time: Thursday, November 30, 2017 14:34 - CONCLUSION: 1. Mild plaque with no hemodynamically significant stenosis. Vertebral artery flow antegrade. Fadi Carolina MD Cervical Spine MRI 11/28/17 0000 Signed Impressions: Service Date/Time: Tuesday, November 28, 2017 15:10 - CONCLUSION: 1. Multilevel posterior disc osteophyte complexes as described above. 2. Anterior fusion C6- 7. Dylon Haddad MD Knee X-Ray 11/02/17 0000 Signed Impressions: Service Date/Time: Thursday, November 02, 2017 18:51 - CONCLUSION: Intact right knee. Jovany Hayes MD Head CT 11/02/17 0000 Signed Impressions: Service Date/Time: Thursday, November 02, 2017 18:35 - CONCLUSION: 1. No bleed or other acute intracranial abnormality. 2. Previously seen intracranial hemorrhage has resolved. A small area of chronic encephalomalacia has developed of the right frontal lobe. 3. Chronic periventricular white matter changes are again noted. Jovany Hayes MD Breast Ultrasound 10/15/17 0000 Signed Impressions: Service Date/Time: Sunday, October 15, 2017 09:06 - CONCLUSION: Persistent subcutaneous collection at the 12:00 position of the right breast. It has slightly decreased in size since the study dated 09/23/2017 and could represent an infectious process. Consider followup to confirm resolution. Jovany Quezada MD Chest X-Ray 09/03/17 0000 Signed Impressions: Service Date/Time: Sunday, September 03, 2017 17:02 - CONCLUSION: 1. Mild edema pattern. Subsegmental basilar airspace disease most characteristic of atelectasis.. Fadi Carolina MD Cervical Spine CT 09/02/17 0000 Signed Impressions: Service Date/Time: August 12:56 - CONCLUSION: Postsurgical changes from anterior cervical plate at C6-7. No evidence of compression deformity or spondylolisthesis. Arun Regan MD Pelvis X-Ray 06/30/17 0000 Signed Impressions: Service Date/Time: Friday, June 30, 2017 12:17 - CONCLUSION: No significant change has occurred. Carlos Capps MD Objective Remarks GENERAL: Well-nourished, well-developed female in NAD. SKIN: Warm and dry. No rash. HEENT: Normocephalic. Atraumatic. Pupils equal and round. No scleral icterus. No injection or drainage. No nasal bleeding or discharge. Mucous membranes pink and moist. NECK: Supple. Trachea midline. CARDIOVASCULAR: Regular rate and rhythm. S1, S2 noted. No murmur appreciated. RESPIRATORY: No accessory muscle use. Clear to auscultation. Breath sounds equal bilaterally. GASTROINTESTINAL: Abdomen soft, non-tender, nondistended. Normoactive bowel sounds x4. No guarding noted. MUSCULOSKELETAL: No obvious deformities. Extremities without clubbing, cyanosis , or edema. NEUROLOGICAL: Awake and alert. No obvious cranial nerve deficits. Motor grossly within normal limits. 5/5 muscle strength in bilateral upper and lower extremities. Normal speech. PSYCHIATRIC: Appropriate mood and affect. A/P Problem List: (1) Alcohol dependence in controlled environment ICD Code: F10.20 - Alcohol dependence, uncomplicated Status: Chronic (2) Facial injury ICD Code: S09.93XA - Unspecified injury of face, initial encounter Status: Acute (3) Fall ICD Code: W19.XXXA - Unspecified fall, initial encounter Status: Acute (4) Hypertension ICD Code: I10 - Essential (primary) hypertension Status: Acute (5) Pelvic fracture ICD Code: S32.9XXA - Fracture of unspecified parts of lumbosacral spine and pelvis, initial encounter for closed fracture Status: Acute (6) C1-C2 subluxation ICD Code: S13.120A - Subluxation of C1/C2 cervical vertebrae, initial encounter Status: Acute (7) C6 cervical fracture ICD Code: S12.500A - Unspecified displaced fracture of sixth cervical vertebra , initial encounter for closed fracture Status: Acute (8) Traumatic brain injury ICD Code: S06.9X9A - Unspecified intracranial injury with loss of consciousness of unspecified duration, initial encounter Status: Acute (9) Nasal fracture ICD Code: S02.2XXA - Fracture of nasal bones, initial encounter for closed fracture Status: Acute (10) Mild neurocognitive disorder ICD Code: G31.84 - Mild cognitive impairment, so stated Status: Acute (11) Intracranial bleed ICD Code: I62.9 - Nontraumatic intracranial hemorrhage, unspecified Status: Acute Assessment and Plan Inability to care for self, unsafe discharge due to cognition PT and OT recommending supervision at home for safety. Speech therapy following the patient intermittently for cognitive evaluations. 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 Mini mental state 28/30, recommended avoid antipsychotics and benzodiazepine. Recommending Depakote or carbamazepine. Patient is medically stable for discharge, however due to underlying psychiatric/cognition patient is unsafe discharge until arrangements made by case management. Case management for discharge planning. Neuropsychiatry evaluated the patient recommended patient may improve with treatment, however indicates avoid benzodiazepines and antipsychotics Continue Prozac 40 mg daily Depakene 500 mg twice daily Seroquel 100 mg twice daily *Psychiatry indicated that the patient lacks capacity for signing AMA or to participate in discharge plan. He is recommending that he would invite the ethics committee to the hospital to have a discussion about patient care *Consulted case management for ethics committee review, awaiting response Recurrent falls. Resolved. Patient moved close to nursing station. Patient denies any neurological symptoms of weakness, paresthesia, loss of bowel or bladder control Orthostatic vitals do show drop in systolic blood pressure when standing. Improved after hydration. MRI of the neck. Multilevel degenerative changes. Mild degree of canal stenosis C5-C6, anterior fusion C6-C7 MRI of thoracic and lumbar spine do not indicate any acute abnormality Carotid ultrasound was unremarkable. Echocardiogram indicate ejection fraction 50-55% without any abnormalities Physical therapy ordered for 5 days a week Mild malnutrition, secondary to poor by mouth intake Albumin 2.8. Prealbumin 19. After review of weight trend, has been gaining weight. Continue Remeron. Dietary consulted who recommended ensure with breakfast lunch and there. May have muffin at bedtime, daily vitamin. Multiple traumatic injuries Patient laceration, subdural hemorrhage, ventricular hemorrhage, nasal fracture, C6 fracture, C1-C2 subluxation, C4 transverse process fracture, right rib fracture, L1 transverse process fracture, right pubic rami fracture Continue c-collar this time, however patient does not wear Follow-up cervical spine CT 1026/ indicates no evidence of acute fracture. Postsurgical changes Specialist no longer following patient, patient will require outpatient follow-up if discharge Right breast abscess, Improved. Physical exam shows improvement. Ultrasound does show complex loculated collection measuring 2.4 x 1.7 x 1.8 cm. Representing breast abscess Status post Augmentin 500 mg twice daily for 10 days (end date 10/25/17). Finished Bactrim DS for 18 days Gen. surgery consulted who recommends no intervention at this time. Soft tissue ultrasound shows a improvement of the fluid collection. Attempting to arrange outpatient mammogram. Continue to follow. Hypothyroidism TSH 5.11 Free T4 0.57, free T3 1 0.47 Levothyroxine 25 g daily Monitor TSH every 6-8 weeks Hypertension Amlodipine 10 mg daily DVT prevention Patient ambulating Sequential compression devices while in bed Records were reviewed. Awaiting case management for discharge planning, No change in current treatment plan. Discharge Planning Due to underlying psychiatric/cognition patient is unsafe discharge until arrangements made by case management. Problem Qualifiers (1) Hypertension: Qualified Codes: I10 - Essential (primary) hypertension Alyssa Means Jan 14, 2018 10:32
[2018-01-14] MEDS: VALPROIC ACID 250 MG CAP PO SCH ×2 (11:09→21:40)
[2018-01-14] MEDS: ERGOCALCIFEROL (VIT D2) 50,000 UNIT CAP PO SCH (11:09)
[2018-01-14] MEDS: MULTIVITAMIN TAB PO SCH (11:10)
[2018-01-14] MEDS: QUEtiapine FUMARATE 100 MG TAB PO SCH ×2 (11:10→21:39)
[2018-01-14] MEDS: FLUoxetine HCL 20 MG CAP PO SCH (11:10)
[2018-01-14 20:48] VITALS: BP 137/78; PULSE 79; RESP 16; TEMP 97.9; O2SAT 98
[2018-01-14] MEDS: MIRTAZAPINE 15 MG TAB PO SCH (21:39)
[2018-01-15] MEDS: LEVOTHYROXINE SODIUM 25 MCG TAB PO SCH (05:16)
[2018-01-15 08:00] VITALS: BP 121/78; PULSE 81; RESP 16; TEMP 96.8; O2SAT 93
[2018-01-15] MEDS: VALPROIC ACID 250 MG CAP PO SCH ×2 (08:32→20:03)
[2018-01-15] MEDS: QUEtiapine FUMARATE 100 MG TAB PO SCH ×2 (08:32→20:03)
[2018-01-15] MEDS: FLUoxetine HCL 20 MG CAP PO SCH (08:32)
[2018-01-15] MEDS: MULTIVITAMIN TAB PO SCH (08:32)
--- NOTE | 2018-01-15 10:34 | HHI.PR ---
Subjective Remarks Unsafe discharge due to cognition. Patient seen and examined, lying in bed comfortably, no reports of any acute events overnight. Denies any pain. Eating well. Denies any nausea, vomiting, diarrhea dysuria. No change in clinical condition. Vital signs are stable. Objective Vitals Vital Signs Date Time Temp Pulse Resp B/P (MAP) Pulse Ox O2 Delivery O2 Flow Rate FiO2 01/15/18 08:00 96.8 81 16 121/78 (92) 93 01/14/18 20:48 97.9 79 16 137/78 (97) 98 I/O 01/14/18 01/14/18 01/14/18 01/15/18 01/15/18 01/15/18 07:00 15:00 23:00 07:00 15:00 23:00 Intake Total 360 ml 480 ml 200 ml Balance 360 ml 480 ml 200 ml Intake Oral 360 ml 480 ml 200 ml IV Total 0 ml # Voids 2 4 3 # Bowel Movements 0 2 Imaging Last Impressions Clavicle X-Ray 12/16/17 0000 Signed Impressions: Service Date/Time: December 19:51 - CONCLUSION: Distal clavicle is fractured but this appears nonacute. No acute fracture demonstrated. Jovany Hayes MD Thoracic Spine MRI 12/01/17 0000 Signed Impressions: Service Date/Time: Friday, December 01, 2017 15:10 - CONCLUSION: Negative for acute process. Vimal Taylor MD FACR Lumbar Spine MRI 12/01/17 0000 Signed Impressions: Service Date/Time: Friday, December 01, 2017 15:10 - CONCLUSION: Negative MRI of the lumbar spine. Vimal Taylor MD FACR Carotid Artery Ultrasound 11/30/17 0000 Signed Impressions: Service Date/Time: Thursday, November 30, 2017 14:34 - CONCLUSION: 1. Mild plaque with no hemodynamically significant stenosis. Vertebral artery flow antegrade. Fadi Carolina MD Cervical Spine MRI 11/28/17 0000 Signed Impressions: Service Date/Time: Tuesday, November 28, 2017 15:10 - CONCLUSION: 1. Multilevel posterior disc osteophyte complexes as described above. 2. Anterior fusion C6- 7. Dylon Haddad MD Knee X-Ray 11/02/17 0000 Signed Impressions: Service Date/Time: Thursday, November 02, 2017 18:51 - CONCLUSION: Intact right knee. Jovany Hayes MD Head CT 11/02/17 0000 Signed Impressions: Service Date/Time: Thursday, November 02, 2017 18:35 - CONCLUSION: 1. No bleed or other acute intracranial abnormality. 2. Previously seen intracranial hemorrhage has resolved. A small area of chronic encephalomalacia has developed of the right frontal lobe. 3. Chronic periventricular white matter changes are again noted. Jovany Hayes MD Breast Ultrasound 10/15/17 0000 Signed Impressions: Service Date/Time: Sunday, October 15, 2017 09:06 - CONCLUSION: Persistent subcutaneous collection at the 12:00 position of the right breast. It has slightly decreased in size since the study dated 09/23/2017 and could represent an infectious process. Consider followup to confirm resolution. Jovany Quezada MD Chest X-Ray 09/03/17 0000 Signed Impressions: Service Date/Time: Sunday, September 03, 2017 17:02 - CONCLUSION: 1. Mild edema pattern. Subsegmental basilar airspace disease most characteristic of atelectasis.. Fadi Carolina MD Cervical Spine CT 09/02/17 0000 Signed Impressions: Service Date/Time: August 12:56 - CONCLUSION: Postsurgical changes from anterior cervical plate at C6-7. No evidence of compression deformity or spondylolisthesis. Arun Regan MD Pelvis X-Ray 06/30/17 0000 Signed Impressions: Service Date/Time: Friday, June 30, 2017 12:17 - CONCLUSION: No significant change has occurred. Carlos Capps MD Objective Remarks GENERAL: Well-nourished, well-developed female in NAD. SKIN: Warm and dry. No rash. HEENT: Normocephalic. Atraumatic. Pupils equal and round. No scleral icterus. No injection or drainage. No nasal bleeding or discharge. Mucous membranes pink and moist. NECK: Supple. Trachea midline. CARDIOVASCULAR: Regular rate and rhythm. S1, S2 noted. No murmur appreciated. RESPIRATORY: No accessory muscle use. Clear to auscultation. Breath sounds equal bilaterally. GASTROINTESTINAL: Abdomen soft, non-tender, nondistended. Normoactive bowel sounds x4. No guarding noted. MUSCULOSKELETAL: No obvious deformities. Extremities without clubbing, cyanosis , or edema. NEUROLOGICAL: Awake and alert. No obvious cranial nerve deficits. Motor grossly within normal limits. 5/5 muscle strength in bilateral upper and lower extremities. Normal speech. PSYCHIATRIC: Appropriate mood and affect. A/P Problem List: (1) Alcohol dependence in controlled environment ICD Code: F10.20 - Alcohol dependence, uncomplicated Status: Chronic (2) Facial injury ICD Code: S09.93XA - Unspecified injury of face, initial encounter Status: Acute (3) Fall ICD Code: W19.XXXA - Unspecified fall, initial encounter Status: Acute (4) Hypertension ICD Code: I10 - Essential (primary) hypertension Status: Acute (5) Pelvic fracture ICD Code: S32.9XXA - Fracture of unspecified parts of lumbosacral spine and pelvis, initial encounter for closed fracture Status: Acute (6) C1-C2 subluxation ICD Code: S13.120A - Subluxation of C1/C2 cervical vertebrae, initial encounter Status: Acute (7) C6 cervical fracture ICD Code: S12.500A - Unspecified displaced fracture of sixth cervical vertebra , initial encounter for closed fracture Status: Acute (8) Traumatic brain injury ICD Code: S06.9X9A - Unspecified intracranial injury with loss of consciousness of unspecified duration, initial encounter Status: Acute (9) Nasal fracture ICD Code: S02.2XXA - Fracture of nasal bones, initial encounter for closed fracture Status: Acute (10) Mild neurocognitive disorder ICD Code: G31.84 - Mild cognitive impairment, so stated Status: Acute (11) Intracranial bleed ICD Code: I62.9 - Nontraumatic intracranial hemorrhage, unspecified Status: Acute Assessment and Plan Inability to care for self, unsafe discharge due to cognition PT and OT recommending supervision at home for safety. Speech therapy following the patient intermittently for cognitive evaluations. 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 Mini mental state 28/30, recommended avoid antipsychotics and benzodiazepine. Recommending Depakote or carbamazepine. Patient is medically stable for discharge, however due to underlying psychiatric/cognition patient is unsafe discharge until arrangements made by case management. Case management for discharge planning. Neuropsychiatry evaluated the patient recommended patient may improve with treatment, however indicates avoid benzodiazepines and antipsychotics Continue Prozac 40 mg daily Depakene 500 mg twice daily Seroquel 100 mg twice daily *Psychiatry indicated that the patient lacks capacity for signing AMA or to participate in discharge plan. He is recommending that he would invite the ethics committee to the hospital to have a discussion about patient care *Consulted case management for ethics committee review, awaiting response Recurrent falls. Resolved. Patient moved close to nursing station. Patient denies any neurological symptoms of weakness, paresthesia, loss of bowel or bladder control Orthostatic vitals do show drop in systolic blood pressure when standing. Improved after hydration. MRI of the neck. Multilevel degenerative changes. Mild degree of canal stenosis C5-C6, anterior fusion C6-C7 MRI of thoracic and lumbar spine do not indicate any acute abnormality Carotid ultrasound was unremarkable. Echocardiogram indicate ejection fraction 50-55% without any abnormalities Physical therapy ordered for 5 days a week Mild malnutrition, secondary to poor by mouth intake Albumin 2.8. Prealbumin 19. After review of weight trend, has been gaining weight. Continue Remeron. Dietary consulted who recommended ensure with breakfast lunch and there. May have muffin at bedtime, daily vitamin. Multiple traumatic injuries Patient laceration, subdural hemorrhage, ventricular hemorrhage, nasal fracture, C6 fracture, C1-C2 subluxation, C4 transverse process fracture, right rib fracture, L1 transverse process fracture, right pubic rami fracture Continue c-collar this time, however patient does not wear Follow-up cervical spine CT indicates no evidence of acute fracture. Postsurgical changes Specialist no longer following patient, patient will require outpatient follow-up if discharge Right breast abscess, Improved. Physical exam shows improvement. Ultrasound does show complex loculated collection measuring 2.4 x 1.7 x 1.8 cm. Representing breast abscess Status post Augmentin 500 mg twice daily for 10 days (end date 10/25/17). Finished Bactrim DS for 18 days Gen. surgery consulted who recommends no intervention at this time. Soft tissue ultrasound shows a improvement of the fluid collection. Attempting to arrange outpatient mammogram. Continue to follow. Hypothyroidism TSH 5.11 Free T4 0.57, free T3 1 0.47 Levothyroxine 25 g daily Monitor TSH every 6-8 weeks Hypertension Amlodipine 10 mg daily DVT prevention Patient ambulating Sequential compression devices while in bed Records were reviewed. Awaiting case management for discharge planning, No change in current treatment plan. Discharge Planning Due to underlying psychiatric/cognition patient is unsafe discharge until arrangements made by case management. Problem Qualifiers (1) Hypertension: Qualified Codes: I10 - Essential (primary) hypertension Alyssa Means Jan 15, 2018 10:34
[2018-01-15] MEDS: MIRTAZAPINE 15 MG TAB PO SCH (20:03)
[2018-01-15 21:16] VITALS: BP 143/87; PULSE 82; RESP 18; TEMP 97.9; O2SAT 97
[2018-01-16] MEDS: LEVOTHYROXINE SODIUM 25 MCG TAB PO SCH (05:32)
[2018-01-16 08:30] VITALS: BP 141/94; PULSE 81; RESP 15; TEMP 97.5; O2SAT 93
[2018-01-16] MEDS: QUEtiapine FUMARATE 100 MG TAB PO SCH ×2 (09:09→21:01)
[2018-01-16] MEDS: FLUoxetine HCL 20 MG CAP PO SCH (09:09)
[2018-01-16] MEDS: MULTIVITAMIN TAB PO SCH (09:09)
[2018-01-16] MEDS: VALPROIC ACID 250 MG CAP PO SCH ×2 (09:15→21:00)
--- NOTE | 2018-01-16 12:45 | HHI.PR ---
Subjective Remarks Follow-up unsafe discharge due to cognition. Patient seen and examined, sitting up in chair comfortably. No acute events overnight. No change in clinical condition. Vital signs are stable. Afebrile. Eating well. Participating in PT. Objective Vitals Vital Signs Date Time Temp Pulse Resp B/P (MAP) Pulse Ox O2 Delivery O2 Flow Rate FiO2 01/16/18 08:30 97.5 81 15 141/94 (110) 93 01/15/18 21:16 97.9 82 18 143/87 (105) 97 I/O 01/15/18 01/15/18 01/15/18 01/16/18 01/16/18 01/16/18 07:00 15:00 23:00 07:00 15:00 23:00 Intake Total 400 ml 200 ml 240 ml Balance 400 ml 200 ml 240 ml Intake Oral 400 ml 200 ml 240 ml # Voids 3 5 2 1 # Bowel Movements 1 0 Imaging Last Impressions Clavicle X-Ray 12/16/17 0000 Signed Impressions: Service Date/Time: December 19:51 - CONCLUSION: Distal clavicle is fractured but this appears nonacute. No acute fracture demonstrated. Jovany Hayes MD Thoracic Spine MRI 12/01/17 0000 Signed Impressions: Service Date/Time: Friday, December 01, 2017 15:10 - CONCLUSION: Negative for acute process. Vimal Taylor MD FACR Lumbar Spine MRI 12/01/17 0000 Signed Impressions: Service Date/Time: Friday, December 01, 2017 15:10 - CONCLUSION: Negative MRI of the lumbar spine. Vimal Taylor MD FACR Carotid Artery Ultrasound 11/30/17 0000 Signed Impressions: Service Date/Time: Thursday, November 30, 2017 14:34 - CONCLUSION: 1. Mild plaque with no hemodynamically significant stenosis. Vertebral artery flow antegrade. Fadi Carolina MD Cervical Spine MRI 11/28/17 0000 Signed Impressions: Service Date/Time: Tuesday, November 28, 2017 15:10 - CONCLUSION: 1. Multilevel posterior disc osteophyte complexes as described above. 2. Anterior fusion C6- 7. Dylon Haddad MD Knee X-Ray 11/02/17 0000 Signed Impressions: Service Date/Time: Thursday, November 02, 2017 18:51 - CONCLUSION: Intact right knee. Jovany Hayes MD Head CT 11/02/17 0000 Signed Impressions: Service Date/Time: Thursday, November 02, 2017 18:35 - CONCLUSION: 1. No bleed or other acute intracranial abnormality. 2. Previously seen intracranial hemorrhage has resolved. A small area of chronic encephalomalacia has developed of the right frontal lobe. 3. Chronic periventricular white matter changes are again noted. Jovany Hayes MD Breast Ultrasound 10/15/17 0000 Signed Impressions: Service Date/Time: Sunday, October 15, 2017 09:06 - CONCLUSION: Persistent subcutaneous collection at the 12:00 position of the right breast. It has slightly decreased in size since the study dated 09/23/2017 and could represent an infectious process. Consider followup to confirm resolution. Jovany Quezada MD Chest X-Ray 09/03/17 0000 Signed Impressions: Service Date/Time: Sunday, September 03, 2017 17:02 - CONCLUSION: 1. Mild edema pattern. Subsegmental basilar airspace disease most characteristic of atelectasis.. Fadi Carolina MD Cervical Spine CT 09/02/17 0000 Signed Impressions: Service Date/Time: August 12:56 - CONCLUSION: Postsurgical changes from anterior cervical plate at C6-7. No evidence of compression deformity or spondylolisthesis. Arun Regan MD Pelvis X-Ray 06/30/17 0000 Signed Impressions: Service Date/Time: Friday, June 30, 2017 12:17 - CONCLUSION: No significant change has occurred. Carlos Capps MD Objective Remarks GENERAL: Well-nourished, well-developed female in NAD. SKIN: Warm and dry. No rash. HEENT: Normocephalic. Atraumatic. Pupils equal and round. No scleral icterus. No injection or drainage. No nasal bleeding or discharge. Mucous membranes pink and moist. NECK: Supple. Trachea midline. CARDIOVASCULAR: Regular rate and rhythm. S1, S2 noted. No murmur appreciated. RESPIRATORY: No accessory muscle use. Clear to auscultation. Breath sounds equal bilaterally. GASTROINTESTINAL: Abdomen soft, non-tender, nondistended. Normoactive bowel sounds x4. No guarding noted. MUSCULOSKELETAL: No obvious deformities. Extremities without clubbing, cyanosis , or edema. NEUROLOGICAL: Awake and alert. No obvious cranial nerve deficits. Motor grossly within normal limits. 5/5 muscle strength in bilateral upper and lower extremities. Normal speech. PSYCHIATRIC: Appropriate mood and affect. A/P Problem List: (1) Alcohol dependence in controlled environment ICD Code: F10.20 - Alcohol dependence, uncomplicated Status: Chronic (2) Facial injury ICD Code: S09.93XA - Unspecified injury of face, initial encounter Status: Acute (3) Fall ICD Code: W19.XXXA - Unspecified fall, initial encounter Status: Acute (4) Hypertension ICD Code: I10 - Essential (primary) hypertension Status: Acute (5) Pelvic fracture ICD Code: S32.9XXA - Fracture of unspecified parts of lumbosacral spine and pelvis, initial encounter for closed fracture Status: Acute (6) C1-C2 subluxation ICD Code: S13.120A - Subluxation of C1/C2 cervical vertebrae, initial encounter Status: Acute (7) C6 cervical fracture ICD Code: S12.500A - Unspecified displaced fracture of sixth cervical vertebra , initial encounter for closed fracture Status: Acute (8) Traumatic brain injury ICD Code: S06.9X9A - Unspecified intracranial injury with loss of consciousness of unspecified duration, initial encounter Status: Acute (9) Nasal fracture ICD Code: S02.2XXA - Fracture of nasal bones, initial encounter for closed fracture Status: Acute (10) Mild neurocognitive disorder ICD Code: G31.84 - Mild cognitive impairment, so stated Status: Acute (11) Intracranial bleed ICD Code: I62.9 - Nontraumatic intracranial hemorrhage, unspecified Status: Acute Assessment and Plan Inability to care for self, unsafe discharge due to cognition PT and OT recommending supervision at home for safety. Speech therapy following the patient intermittently for cognitive evaluations. 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 Mini mental state 28/30, recommended avoid antipsychotics and benzodiazepine. Recommending Depakote or carbamazepine. Patient is medically stable for discharge, however due to underlying psychiatric/cognition patient is unsafe discharge until arrangements made by case management. Case management for discharge planning. Neuropsychiatry evaluated the patient recommended patient may improve with treatment, however indicates avoid benzodiazepines and antipsychotics Continue Prozac 40 mg daily Depakene 500 mg twice daily Seroquel 100 mg twice daily *Psychiatry indicated that the patient lacks capacity for signing AMA or to participate in discharge plan. He is recommending that he would invite the ethics committee to the hospital to have a discussion about patient care *Consulted case management for ethics committee review, awaiting response Recurrent falls. Resolved. Patient moved close to nursing station. Patient denies any neurological symptoms of weakness, paresthesia, loss of bowel or bladder control Orthostatic vitals do show drop in systolic blood pressure when standing. Improved after hydration. MRI of the neck. Multilevel degenerative changes. Mild degree of canal stenosis C5-C6, anterior fusion C6-C7 MRI of thoracic and lumbar spine do not indicate any acute abnormality Carotid ultrasound was unremarkable. Echocardiogram indicate ejection fraction 50-55% without any abnormalities Physical therapy ordered for 5 days a week Mild malnutrition, secondary to poor by mouth intake Albumin 2.8. Prealbumin 19. After review of weight trend, has been gaining weight. Continue Remeron. Dietary consulted who recommended ensure with breakfast lunch and there. May have muffin at bedtime, daily vitamin. Multiple traumatic injuries Patient laceration, subdural hemorrhage, ventricular hemorrhage, nasal fracture, C6 fracture, C1-C2 subluxation, C4 transverse process fracture, right rib fracture, L1 transverse process fracture, right pubic rami fracture Continue c-collar this time, however patient does not wear Follow-up cervical spine CT indicates no evidence of acute fracture. Postsurgical changes Specialist no longer following patient, patient will require outpatient follow-up if discharge Right breast abscess, Improved. Physical exam shows improvement. Ultrasound does show complex loculated collection measuring 2.4 x 1.7 x 1.8 cm. Representing breast abscess Status post Augmentin 500 mg twice daily for 10 days (end date 10/25/17). Finished Bactrim DS for 18 days Gen. surgery consulted who recommends no intervention at this time. Soft tissue ultrasound shows a improvement of the fluid collection. Attempting to arrange outpatient mammogram. Continue to follow. Hypothyroidism TSH 5.11 Free T4 0.57, free T3 1 0.47 Levothyroxine 25 g daily Monitor TSH every 6-8 weeks Hypertension Amlodipine 10 mg daily DVT prevention Patient ambulating Sequential compression devices while in bed Records were reviewed. Awaiting case management for discharge planning, No change in current treatment plan. Discharge Planning Due to underlying psychiatric/cognition patient is unsafe discharge until arrangements made by case management. Problem Qualifiers (1) Hypertension: Qualified Codes: I10 - Essential (primary) hypertension Alyssa Means Jan 16, 2018 12:45
[2018-01-16 20:00] VITALS: BP 139/84; PULSE 85; RESP 16; TEMP 97.3; O2SAT 94
[2018-01-16] MEDS: ACETAMINOPHEN 325 MG TAB PO PRN (21:00)
[2018-01-16] MEDS: MIRTAZAPINE 15 MG TAB PO SCH (21:01)
[2018-01-17] MEDS: LEVOTHYROXINE SODIUM 25 MCG TAB PO SCH (06:01)
[2018-01-17 08:00] VITALS: BP 155/95; PULSE 75; RESP 16; TEMP 97.1; O2SAT 94
[2018-01-17] MEDS: VALPROIC ACID 250 MG CAP PO SCH ×2 (09:00→21:10)
[2018-01-17] MEDS: FLUoxetine HCL 20 MG CAP PO SCH (09:10)
[2018-01-17] MEDS: QUEtiapine FUMARATE 100 MG TAB PO SCH ×2 (09:10→21:10)
[2018-01-17] MEDS: MULTIVITAMIN TAB PO SCH (09:10)
--- NOTE | 2018-01-17 09:42 | HHI.PR ---
Subjective Remarks Follow-up unsafe discharge due to cognition. Patient seen and examined, lying in bed comfortably denies any acute events overnight. No change in clinical condition. Case management assisting in arranging outpatient mammogram. Vital signs are stable. Afebrile. Objective Vitals Vital Signs Date Time Temp Pulse Resp B/P (MAP) Pulse Ox O2 Delivery O2 Flow Rate FiO2 01/16/18 20:00 97.3 85 16 139/84 (102) 94 I/O 01/16/18 01/16/18 01/16/18 01/17/18 01/17/18 01/17/18 07:00 15:00 23:00 07:00 15:00 23:00 Intake Total 240 ml 240 ml Balance 240 ml 240 ml Intake Oral 240 ml 240 ml # Voids 2 1 2 # Bowel Movements 0 Imaging Last Impressions Clavicle X-Ray 12/16/17 0000 Signed Impressions: Service Date/Time: December 19:51 - CONCLUSION: Distal clavicle is fractured but this appears nonacute. No acute fracture demonstrated. Jovany Hayes MD Thoracic Spine MRI 12/01/17 0000 Signed Impressions: Service Date/Time: Friday, December 01, 2017 15:10 - CONCLUSION: Negative for acute process. Vimal Taylor MD FACR Lumbar Spine MRI 12/01/17 0000 Signed Impressions: Service Date/Time: Friday, December 01, 2017 15:10 - CONCLUSION: Negative MRI of the lumbar spine. Vimal Taylor MD FACR Carotid Artery Ultrasound 11/30/17 0000 Signed Impressions: Service Date/Time: Thursday, November 30, 2017 14:34 - CONCLUSION: 1. Mild plaque with no hemodynamically significant stenosis. Vertebral artery flow antegrade. Fadi Carolina MD Cervical Spine MRI 11/28/17 0000 Signed Impressions: Service Date/Time: Tuesday, November 28, 2017 15:10 - CONCLUSION: 1. Multilevel posterior disc osteophyte complexes as described above. 2. Anterior fusion C6- 7. Dylon Haddad MD Knee X-Ray 11/02/17 0000 Signed Impressions: Service Date/Time: Thursday, November 02, 2017 18:51 - CONCLUSION: Intact right knee. Jovany Hayes MD Head CT 11/02/17 0000 Signed Impressions: Service Date/Time: Thursday, November 02, 2017 18:35 - CONCLUSION: 1. No bleed or other acute intracranial abnormality. 2. Previously seen intracranial hemorrhage has resolved. A small area of chronic encephalomalacia has developed of the right frontal lobe. 3. Chronic periventricular white matter changes are again noted. Jovany Hayes MD Breast Ultrasound 10/15/17 0000 Signed Impressions: Service Date/Time: Sunday, October 15, 2017 09:06 - CONCLUSION: Persistent subcutaneous collection at the 12:00 position of the right breast. It has slightly decreased in size since the study dated 09/23/2017 and could represent an infectious process. Consider followup to confirm resolution. Jovany Quezada MD Chest X-Ray 09/03/17 0000 Signed Impressions: Service Date/Time: Sunday, September 03, 2017 17:02 - CONCLUSION: 1. Mild edema pattern. Subsegmental basilar airspace disease most characteristic of atelectasis.. Fadi Carolina MD Cervical Spine CT 09/02/17 0000 Signed Impressions: Service Date/Time: August 12:56 - CONCLUSION: Postsurgical changes from anterior cervical plate at C6-7. No evidence of compression deformity or spondylolisthesis. Arun Regan MD Pelvis X-Ray 06/30/17 0000 Signed Impressions: Service Date/Time: Friday, June 30, 2017 12:17 - CONCLUSION: No significant change has occurred. Carlos Capps MD Objective Remarks GENERAL: Well-nourished, well-developed female in [facility]. SKIN: Warm and dry. No rash. HEENT: Normocephalic. Atraumatic. Pupils equal and round. No scleral icterus. No injection or drainage. No nasal bleeding or discharge. Mucous membranes pink and moist. NECK: Supple. Trachea midline. CARDIOVASCULAR: Regular rate and rhythm. S1, S2 noted. No murmur appreciated. RESPIRATORY: No accessory muscle use. Clear to auscultation. Breath sounds equal bilaterally. GASTROINTESTINAL: Abdomen soft, non-tender, nondistended. Normoactive bowel sounds x4. No guarding noted. MUSCULOSKELETAL: No obvious deformities. Extremities without clubbing, cyanosis , or edema. NEUROLOGICAL: Awake and alert. No obvious cranial nerve deficits. Motor grossly within normal limits. 5/5 muscle strength in bilateral upper and lower extremities. Normal speech. PSYCHIATRIC: Appropriate mood and affect. A/P Problem List: (1) Alcohol dependence in controlled environment ICD Code: F10.20 - Alcohol dependence, uncomplicated Status: Chronic (2) Facial injury ICD Code: S09.93XA - Unspecified injury of face, initial encounter Status: Acute (3) Fall ICD Code: W19.XXXA - Unspecified fall, initial encounter Status: Acute (4) Hypertension ICD Code: I10 - Essential (primary) hypertension Status: Acute (5) Pelvic fracture ICD Code: S32.9XXA - Fracture of unspecified parts of lumbosacral spine and pelvis, initial encounter for closed fracture Status: Acute (6) C1-C2 subluxation ICD Code: S13.120A - Subluxation of C1/C2 cervical vertebrae, initial encounter Status: Acute (7) C6 cervical fracture ICD Code: S12.500A - Unspecified displaced fracture of sixth cervical vertebra , initial encounter for closed fracture Status: Acute (8) Traumatic brain injury ICD Code: S06.9X9A - Unspecified intracranial injury with loss of consciousness of unspecified duration, initial encounter Status: Acute (9) Nasal fracture ICD Code: S02.2XXA - Fracture of nasal bones, initial encounter for closed fracture Status: Acute (10) Mild neurocognitive disorder ICD Code: G31.84 - Mild cognitive impairment, so stated Status: Acute (11) Intracranial bleed ICD Code: I62.9 - Nontraumatic intracranial hemorrhage, unspecified Status: Acute Assessment and Plan Inability to care for self, unsafe discharge due to cognition PT and OT recommending supervision at home for safety. Speech therapy following the patient intermittently for cognitive evaluations. 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 Mini mental state 28/30, recommended avoid antipsychotics and benzodiazepine. Recommending Depakote or carbamazepine. Patient is medically stable for discharge, however due to underlying psychiatric/cognition patient is unsafe discharge until arrangements made by case management. Case management for discharge planning. Neuropsychiatry evaluated the patient recommended patient may improve with treatment, however indicates avoid benzodiazepines and antipsychotics Continue Prozac 40 mg daily Depakene 500 mg twice daily Seroquel 100 mg twice daily *Psychiatry indicated that the patient lacks capacity for signing AMA or to participate in discharge plan. He is recommending that he would invite the ethics committee to the hospital to have a discussion about patient care *Consulted case management for ethics committee review, awaiting response Recurrent falls. Resolved. Patient moved close to nursing station. Patient denies any neurological symptoms of weakness, paresthesia, loss of bowel or bladder control Orthostatic vitals do show drop in systolic blood pressure when standing. Improved after hydration. MRI of the neck. Multilevel degenerative changes. Mild degree of canal stenosis C5-C6, anterior fusion C6-C7 MRI of thoracic and lumbar spine do not indicate any acute abnormality Carotid ultrasound was unremarkable. Echocardiogram indicate ejection fraction 50-55% without any abnormalities Physical therapy ordered for 5 days a week Mild malnutrition, secondary to poor by mouth intake. Resolved. Albumin 2.8. Prealbumin 19. After review of weight trend, has been gaining weight. Continue Remeron. Dietary consulted who recommended ensure with breakfast lunch and there. May have muffin at bedtime, daily vitamin. Multiple traumatic injuries Patient laceration, subdural hemorrhage, ventricular hemorrhage, nasal fracture, C6 fracture, C1-C2 subluxation, C4 transverse process fracture, right rib fracture, L1 transverse process fracture, right pubic rami fracture Continue c-collar this time, however patient does not wear Follow-up cervical spine CT indicates no evidence of acute fracture. Postsurgical changes Specialist no longer following patient, patient will require outpatient follow-up if discharge Right breast abscess, Improved. Physical exam shows improvement. Ultrasound does show complex loculated collection measuring 2.4 x 1.7 x 1.8 cm. Representing breast abscess Status post Augmentin 500 mg twice daily for 10 days (end date 10/25/17). Finished Bactrim DS for 18 days Gen. surgery consulted who recommends no intervention at this time. Soft tissue ultrasound shows a improvement of the fluid collection. Attempting to arrange outpatient mammogram. Continue to follow. Hypothyroidism TSH 5.11 Free T4 0.57, free T3 1 0.47 Levothyroxine 25 g daily Monitor TSH every 6-8 weeks Hypertension Amlodipine 10 mg daily DVT prevention Patient ambulating Sequential compression devices while in bed Records were reviewed. Awaiting case management for discharge planning, No change in current treatment plan. Discharge Planning Due to underlying psychiatric/cognition patient is unsafe discharge until arrangements made by case management. Problem Qualifiers (1) Hypertension: Qualified Codes: I10 - Essential (primary) hypertension Miguelangel,Alyssa [employer] Jan 17, 2018 09:42
[2018-01-17 20:00] VITALS: BP 143/94; PULSE 80; RESP 18; TEMP 97.2; O2SAT 92
[2018-01-17] MEDS: MIRTAZAPINE 15 MG TAB PO SCH (21:10)
[2018-01-17] MEDS: ACETAMINOPHEN 325 MG TAB PO PRN (21:15)
[2018-01-18] VITALS: BP 143/94; PULSE 80; RESP 18; TEMP 97.2; O2SAT 92
[2018-01-18] MEDS: LEVOTHYROXINE SODIUM 25 MCG TAB PO SCH (06:09)
[2018-01-18 08:48] VITALS: BP 152/86; PULSE 66; RESP 16; TEMP 96.7; O2SAT 94
[2018-01-18] MEDS: VALPROIC ACID 250 MG CAP PO SCH ×2 (09:42→20:02)
[2018-01-18] MEDS: FLUoxetine HCL 20 MG CAP PO SCH (09:42)
[2018-01-18] MEDS: QUEtiapine FUMARATE 100 MG TAB PO SCH ×2 (09:42→20:02)
[2018-01-18] MEDS: MULTIVITAMIN TAB PO SCH (09:43)
--- NOTE | 2018-01-18 11:25 | HHI.PR ---
Subjective Remarks Patient seen and examined today for follow-up on unsafe discharge due to cognition. Patient states that she is doing okay. Denies any new complaints. 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 Objective Vitals Vital Signs Date Time Temp Pulse Resp B/P (MAP) Pulse Ox O2 Delivery O2 Flow Rate FiO2 01/18/18 08:48 96.7 66 16 152/86 (108) 94 01/18/18 00:00 97.2 80 18 143/94 (110) 92 01/17/18 20:00 97.2 80 18 143/94 (110) 92 I/O 01/17/18 01/17/18 01/17/18 01/18/18 01/18/18 01/18/18 06:59 14:59 22:59 06:59 14:59 22:59 Intake Total 240 ml 237 ml 180 ml Output Total 1 ml Balance 240 ml 237 ml 179 ml Intake Oral 240 ml 237 ml 180 ml Output Urine Total 1 ml # Voids 2 4 # Bowel Movements 2 0 Objective Remarks GENERAL: Well-developed, well-nourished, in no acute distress. alert and orientated waxes and wanes daily HEENT: Head is normocephalic without any lesions or masses noted. Facial features are symmetric. Eyes: Extraocular muscles are intact. Conjunctivae were clear. NECK: C-collar in on table at bedside CARDIAC: Regular rhythm, regular rate. S1/S2 are heard. No murmurs gallops or rubs. LUNGS: Clear to auscultation bilaterally. No wheeze, rhonchi or rales. No use of accessory muscles on inspiration or expiration. ABDOMEN: Soft, nontender. Nondistended. Bowel sounds heard in all 4 quadrants. No organomegaly or masses. Negative rebound, negative guarding EXTREMITIES: No edema, pulses are equal bilaterally. No cyanosis or clubbing NEUROLOGY: Mood and affect appear appropriate. Cranial nerves II through XII grossly intact moving all extremities, speech is clear Urinary Catheter: No Vascular Central Line Catheter: No A/P Assessment and Plan Inability to care for self, unsafe discharge due to cognition Initially he was indicated patient cannot walk, patient is walking at this time, PT and OT recommending supervision at home for safety Speech therapy following the patient intermittently for cognitive evaluations. 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 MIni mental state 28/30, recommended avoid antipsychotics and benzodiazepine. Recommending Depakote or carbamazepine Patient is medically stable for discharge, however due to underlying psychiatric/cognition patient is unsafe discharge until arrangements made by case management Case management for discharge planning Neuropsychiatry evaluated the patient recommended patient may improve with treatment, however indicates avoid benzodiazepines and antipsychotics Continue Prozac 40 mg daily Depakene 500 mg twice daily Seroquel 100 mg twice daily *Discussed with psychiatry again about patient's cognition issues. He indicated that the patient lacks capacity for signing AMA or to participate in discharge plan. He is recommending that he would invite the ethics committee to the hospital to have a discussion about patient care *Consulted case management for ethics committee review, awaiting response Mild malnutrition, secondary to poor by mouth intake Albumin 2.8 Prealbumin 19 However, patient actually has increase in weight of 6 pounds since admission. In the last 3 days it would appear that she's gained another 6 pounds Continue Remeron Dietary consulted who recommended ensure with breakfast lunch and there. May have muffin at bedtime, daily vitamin Recurrent falls, Patient moved close to nursing station Patient does state that she is having neck pain Patient denies any neurological symptoms of weakness, paresthesia, loss of bowel or bladder control Orthostatic vitals do show drop in systolic blood pressure when standing. Improved after hydration Status post 2 L normal saline and continue monitor orthostatic vitals MRI of the neck. Multilevel degenerative changes. Mild degree of canal stenosis C5-C6, anterior fusion C6-C7 MRI of thoracic and lumbar spine do not indicate any acute abnormality Clavicle x-ray shows nonacute distal clavicle fracture. Carotid ultrasound was unremarkable Echocardiogram indicate ejection fraction 50-55% without any abnormalities Physical therapy ordered for 5 days a week Multiple traumatic injuries, Patient laceration, subdural hemorrhage, ventricular hemorrhage, nasal fracture, C6 fracture, C1-C2 subluxation, C4 transverse process fracture, right rib fracture, L1 transverse process fracture, right pubic rami fracture Continue c-collar this time, however patient does not wear Follow-up cervical spine CT indicates no evidence of acute fracture. Postsurgical changes Specialist no longer following patient, patient will require outpatient follow-up if discharge Right breast abscess, improved Physical exam patient does have a erythematous area with drainage Ultrasound does show complex loculated collection measuring 2.4 x 1.7 x 1.8 cm. Representing breast abscess Status post Augmentin 500 mg twice daily for 10 days and Bactrim DS for 18 days Gen. surgery consulted who recommends no intervention at this time, Soft tissue ultrasound shows a improvement of the fluid collection. Awaiting arrangements for mammogram Hypothyroidism TSH 5.11 Free T4 0.57, free T3 1 0.47 Levothyroxine 25 g daily Monitor TSH every 6-8 weeks Hypertension, Amlodipine 10 mg daily DVT prevention Patient ambulating Sequential compression devices while in bed Records are reviewed. No change in current treatment plan. Case management for discharge planning. Discharge Planning Case management for discharge planning, Conrado Mariee Jan 18, 2018 11:25
[2018-01-18 20:00] VITALS: BP 132/73; PULSE 80; RESP 20; TEMP 97.7; O2SAT 93
[2018-01-18] MEDS: ACETAMINOPHEN 325 MG TAB PO PRN (20:01)
[2018-01-18] MEDS: MIRTAZAPINE 15 MG TAB PO SCH (20:02)
[2018-01-19] MEDS: LEVOTHYROXINE SODIUM 25 MCG TAB PO SCH (05:00)
--- NOTE | 2018-01-19 07:46 | HHI.PR ---
Subjective Remarks Patient seen and examined for follow-up on unsafe discharge due to cognition. Patient denies any new complaints. No change in clinical status. Awaiting case management for discharge planning. Objective Vitals Vital Signs Date Time Temp Pulse Resp B/P (MAP) Pulse Ox O2 Delivery O2 Flow Rate FiO2 01/18/18 20:00 97.7 80 20 132/73 (92) 93 01/18/18 08:48 96.7 66 16 152/86 (108) 94 I/O 01/18/18 01/18/18 01/18/18 01/19/18 01/19/18 01/19/18 07:00 15:00 23:00 07:00 15:00 23:00 Intake Total 180 ml 120 ml Output Total 1 ml 0 ml Balance 179 ml 120 ml Intake Oral 180 ml 120 ml Output Urine Total 1 ml 0 ml # Voids 2 # Bowel Movements 0 Objective Remarks GENERAL: Well-developed, well-nourished, in no acute distress. alert and orientated waxes and wanes daily HEENT: Head is normocephalic without any lesions or masses noted. Facial features are symmetric. Eyes: Extraocular muscles are intact. Conjunctivae were clear. NECK: C-collar in on table at bedside CARDIAC: Regular rhythm, regular rate. S1/S2 are heard. No murmurs gallops or rubs. LUNGS: Clear to auscultation bilaterally. No wheeze, rhonchi or rales. No use of accessory muscles on inspiration or expiration. ABDOMEN: Soft, nontender. Nondistended. Bowel sounds heard in all 4 quadrants. No organomegaly or masses. Negative rebound, negative guarding EXTREMITIES: No edema, pulses are equal bilaterally. No cyanosis or clubbing NEUROLOGY: Mood and affect appear appropriate. Cranial nerves II through XII grossly intact moving all extremities, speech is clear Urinary Catheter: No Vascular Central Line Catheter: No A/P Assessment and Plan Inability to care for self, unsafe discharge due to cognition Initially he was indicated patient cannot walk, patient is walking at this time, PT and OT recommending supervision at home for safety Speech therapy following the patient intermittently for cognitive evaluations. 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 MIni mental state 28/30, recommended avoid antipsychotics and benzodiazepine. Recommending Depakote or carbamazepine Patient is medically stable for discharge, however due to underlying psychiatric/cognition patient is unsafe discharge until arrangements made by case management Case management for discharge planning Neuropsychiatry evaluated the patient recommended patient may improve with treatment, however indicates avoid benzodiazepines and antipsychotics Continue Prozac 40 mg daily Depakene 500 mg twice daily Seroquel 100 mg twice daily *Discussed with psychiatry again about patient's cognition issues. He indicated that the patient lacks capacity for signing AMA or to participate in discharge plan. He is recommending that he would invite the ethics committee to the hospital to have a discussion about patient care *Consulted case management for ethics committee review, awaiting response Mild malnutrition, secondary to poor by mouth intake Albumin 2.8 Prealbumin 19 However, patient actually has increase in weight of 6 pounds since admission. In the last 3 days it would appear that she's gained another 6 pounds Continue Remeron Dietary consulted who recommended ensure with breakfast lunch and there. May have muffin at bedtime, daily vitamin Recurrent falls, Patient moved close to nursing station Patient does state that she is having neck pain Patient denies any neurological symptoms of weakness, paresthesia, loss of bowel or bladder control Orthostatic vitals do show drop in systolic blood pressure when standing. Improved after hydration Status post 2 L normal saline and continue monitor orthostatic vitals MRI of the neck. Multilevel degenerative changes. Mild degree of canal stenosis C5-C6, anterior fusion C6-C7 MRI of thoracic and lumbar spine do not indicate any acute abnormality Clavicle x-ray shows nonacute distal clavicle fracture. Carotid ultrasound was unremarkable Echocardiogram indicate ejection fraction 50-55% without any abnormalities Physical therapy ordered for 5 days a week Multiple traumatic injuries, Patient laceration, subdural hemorrhage, ventricular hemorrhage, nasal fracture, C6 fracture, C1-C2 subluxation, C4 transverse process fracture, right rib fracture, L1 transverse process fracture, right pubic rami fracture Continue c-collar this time, however patient does not wear Follow-up cervical spine CT indicates no evidence of acute fracture. Postsurgical changes Specialist no longer following patient, patient will require outpatient follow-up if discharge Right breast abscess, improved Physical exam patient does have a erythematous area with drainage Ultrasound does show complex loculated collection measuring 2.4 x 1.7 x 1.8 cm. Representing breast abscess Status post Augmentin 500 mg twice daily for 10 days and Bactrim DS for 18 days Gen. surgery consulted who recommends no intervention at this time, Soft tissue ultrasound shows a improvement of the fluid collection. Awaiting arrangements for mammogram Hypothyroidism TSH 5.11 Free T4 0.57, free T3 1 0.47 Levothyroxine 25 g daily Monitor TSH every 6-8 weeks Hypertension, Amlodipine 10 mg daily DVT prevention Patient ambulating Sequential compression devices while in bed Records are reviewed. Case management for discharge planning. No change in current treatment plan. Discharge Planning Case management for discharge planning, Conrado Mariee Jan 19, 2018 07:46
[2018-01-19] MEDS: QUEtiapine FUMARATE 100 MG TAB PO SCH ×2 (08:04→21:00)
[2018-01-19] MEDS: VALPROIC ACID 250 MG CAP PO SCH ×2 (08:04→21:00)
[2018-01-19] MEDS: FLUoxetine HCL 20 MG CAP PO SCH (08:04)
[2018-01-19] MEDS: MULTIVITAMIN TAB PO SCH (08:05)
[2018-01-19 08:13] VITALS: BP 138/87; PULSE 73; RESP 18; TEMP 97.9; O2SAT 92
[2018-01-19] MEDS: ACETAMINOPHEN 325 MG TAB PO PRN (15:19)
[2018-01-19 21:00] VITALS: BP 142/89; PULSE 86; RESP 20; TEMP 97.8
[2018-01-19] MEDS: MIRTAZAPINE 15 MG TAB PO SCH (21:00)
[2018-01-20] MEDS: LEVOTHYROXINE SODIUM 25 MCG TAB PO SCH (06:00)
[2018-01-20 08:00] VITALS: BP 156/77; PULSE 70; RESP 16; TEMP 97.2; O2SAT 97
[2018-01-20] MEDS: QUEtiapine FUMARATE 100 MG TAB PO SCH ×2 (08:17→21:19)
[2018-01-20] MEDS: FLUoxetine HCL 20 MG CAP PO SCH (08:17)
[2018-01-20] MEDS: MULTIVITAMIN TAB PO SCH (08:17)
[2018-01-20] MEDS: VALPROIC ACID 250 MG CAP PO SCH ×2 (08:18→21:00)
--- NOTE | 2018-01-20 08:45 | HHI.PR ---
Subjective Remarks Patient seen and examined today for follow-up on unsafe discharge due to cognition. Patient resting currently. Denies any new complaints. No change in clinical status. Patient blood pressure had been running mildly elevated. Need to continue to monitor, may need to add further medications. Patient remains afebrile Objective Vitals Vital Signs Date Time Temp Pulse Resp B/P (MAP) Pulse Ox O2 Delivery O2 Flow Rate FiO2 01/19/18 21:00 97.8 86 20 142/89 (106) I/O 01/19/18 01/19/18 01/19/18 01/20/18 01/20/18 01/20/18 07:00 15:00 23:00 07:00 15:00 23:00 Intake Total 120 ml 60 ml Output Total 0 ml Balance 120 ml 60 ml Intake Oral 120 ml 60 ml Output Urine Total 0 ml # Voids 2 # Bowel Movements 0 Objective Remarks GENERAL: Well-developed, well-nourished, in no acute distress. alert and orientated waxes and wanes daily HEENT: Head is normocephalic without any lesions or masses noted. Facial features are symmetric. Eyes: Extraocular muscles are intact. Conjunctivae were clear. NECK: C-collar in on table at bedside CARDIAC: Regular rhythm, regular rate. S1/S2 are heard. No murmurs gallops or rubs. LUNGS: Clear to auscultation bilaterally. No wheeze, rhonchi or rales. No use of accessory muscles on inspiration or expiration. ABDOMEN: Soft, nontender. Nondistended. Bowel sounds heard in all 4 quadrants. No organomegaly or masses. Negative rebound, negative guarding EXTREMITIES: No edema, pulses are equal bilaterally. No cyanosis or clubbing NEUROLOGY: Mood and affect appear appropriate. Cranial nerves II through XII grossly intact moving all extremities, speech is clear Urinary Catheter: No Vascular Central Line Catheter: No A/P Assessment and Plan Inability to care for self, unsafe discharge due to cognition Initially he was indicated patient cannot walk, patient is walking at this time, PT and OT recommending supervision at home for safety Speech therapy following the patient intermittently for cognitive evaluations. 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 MIni mental state 28/30, recommended avoid antipsychotics and benzodiazepine. Recommending Depakote or carbamazepine Patient is medically stable for discharge, however due to underlying psychiatric/cognition patient is unsafe discharge until arrangements made by case management Case management for discharge planning Neuropsychiatry evaluated the patient recommended patient may improve with treatment, however indicates avoid benzodiazepines and antipsychotics Continue Prozac 40 mg daily Depakene 500 mg twice daily Seroquel 100 mg twice daily *Discussed with psychiatry again about patient's cognition issues. He indicated that the patient lacks capacity for signing AMA or to participate in discharge plan. He is recommending that he would invite the ethics committee to the hospital to have a discussion about patient care *Consulted case management for ethics committee review, awaiting response Mild malnutrition, secondary to poor by mouth intake Albumin 2.8 Prealbumin 19 However, patient actually has increase in weight of 6 pounds since admission. In the last 3 days it would appear that she's gained another 6 pounds Continue Remeron Dietary consulted who recommended ensure with breakfast lunch and there. May have muffin at bedtime, daily vitamin Recurrent falls, Patient moved close to nursing station Patient does state that she is having neck pain Patient denies any neurological symptoms of weakness, paresthesia, loss of bowel or bladder control Orthostatic vitals do show drop in systolic blood pressure when standing. Improved after hydration Status post 2 L normal saline and continue monitor orthostatic vitals MRI of the neck. Multilevel degenerative changes. Mild degree of canal stenosis C5-C6, anterior fusion C6-C7 MRI of thoracic and lumbar spine do not indicate any acute abnormality Clavicle x-ray shows nonacute distal clavicle fracture. Carotid ultrasound was unremarkable Echocardiogram indicate ejection fraction 50-55% without any abnormalities Physical therapy ordered for 5 days a week Multiple traumatic injuries, Patient laceration, subdural hemorrhage, ventricular hemorrhage, nasal fracture, C6 fracture, C1-C2 subluxation, C4 transverse process fracture, right rib fracture, L1 transverse process fracture, right pubic rami fracture Continue c-collar this time, however patient does not wear Follow-up cervical spine CT indicates no evidence of acute fracture. Postsurgical changes Specialist no longer following patient, patient will require outpatient follow-up if discharge Right breast abscess, improved Physical exam patient does have a erythematous area with drainage Ultrasound does show complex loculated collection measuring 2.4 x 1.7 x 1.8 cm. Representing breast abscess Status post Augmentin 500 mg twice daily for 10 days and Bactrim DS for 18 days Gen. surgery consulted who recommends no intervention at this time, Soft tissue ultrasound shows a improvement of the fluid collection. Awaiting arrangements for mammogram Hypothyroidism TSH 5.11 Free T4 0.57, free T3 1 0.47 Levothyroxine 25 g daily Monitor TSH every 6-8 weeks Hypertension, mildly elevated Continue monitor blood pressure may need to add medication Amlodipine 10 mg daily DVT prevention Patient ambulating Sequential compression devices while in bed Records are reviewed. No change in current treatment plan. Case management for discharge planning. Discharge Planning Case management for discharge planning, Conrado Mariee Jan 20, 2018 08:45
[2018-01-20 20:00] VITALS: BP 145/83; PULSE 82; RESP 20; TEMP 97.8; O2SAT 97
[2018-01-20] MEDS: MIRTAZAPINE 15 MG TAB PO SCH (21:19)
[2018-01-21] MEDS: LEVOTHYROXINE SODIUM 25 MCG TAB PO SCH (05:36)
[2018-01-21 06:44] LABS: AUTOMATED NEUTROPHIL # 3.4 TH/MM3 (1.8-7.7); BASOPHIL % 0.7 % (0.0-2.0); EOSINOPHIL # 0.3 TH/MM3 (0-0.4); EOSINOPHIL % 4.3 % (0.0-4.0); HEMOGLOBIN 12.1 GM/DL (11.6-15.3); LYMPH % 34.7 % (9.0-44.0); LYMPHOCYTE # 2.3 TH/MM3 (1.0-4.8); MEAN CELL VOLUME 97.7 FL (80.0-100.0); MEAN CORPUSCULAR HEMOGLOBIN 32.8 PG (27.0-34.0); MEAN CORPUSCULAR HGB CONC 33.5 % (32.0-36.0); MEAN PLATELET VOLUME 7.2 FL (7.0-11.0); MONO % 7.4 % (0.0-8.0); MONOCYTE # 0.5 TH/MM3 (0-0.9); NEUT % 52.9 % (16.0-70.0); PLATELET COUNT 272 TH/MM3 (150-450); RED BLOOD COUNT 3.69 MIL/MM3 (4.00-5.30); RED CELL DISTRIBUTION WIDTH 12.4 % (11.6-17.2); WHITE BLOOD COUNT 6.5 TH/MM3 (4.0-11.0)
[2018-01-21 07:32] LABS: BICARBONATE 29.8 MEQ/L (21.0-32.0); CALCIUM 9.1 MG/DL (8.5-10.1); MAGNESIUM 1.9 MG/DL (1.5-2.5)
[2018-01-21 07:36] LABS: CREATININE 0.69 MG/DL (0.50-1.00)
[2018-01-21 08:00] VITALS: BP 140/84; PULSE 87; RESP 18; TEMP 96.2; O2SAT 96
--- NOTE | 2018-01-21 08:30 | HHI.PR ---
Subjective Remarks Patient seen and examined today for follow-up on unsafe discharge due to cognition. Patient resting comfortably. Denies any new complaints. Vital signs are stable, patient remains afebrile. Objective Vitals Vital Signs Date Time Temp Pulse Resp B/P (MAP) Pulse Ox O2 Delivery O2 Flow Rate FiO2 01/20/18 20:00 97.8 82 20 145/83 (103) 97 I/O 01/20/18 01/20/18 01/20/18 01/21/18 01/21/18 01/21/18 07:00 15:00 23:00 07:00 15:00 23:00 Intake Total 910 ml 450 ml Balance 910 ml 450 ml Intake Oral 910 ml 450 ml # Voids 7 2 # Bowel Movements 1 0 Result Diagram: 01/21/18 0600 01/21/18 0600 Objective Remarks GENERAL: Well-developed, well-nourished, in no acute distress. alert and orientated waxes and wanes daily HEENT: Head is normocephalic without any lesions or masses noted. Facial features are symmetric. Eyes: Extraocular muscles are intact. Conjunctivae were clear. NECK: C-collar in on table at bedside CARDIAC: Regular rhythm, regular rate. S1/S2 are heard. No murmurs gallops or rubs. LUNGS: Clear to auscultation bilaterally. No wheeze, rhonchi or rales. No use of accessory muscles on inspiration or expiration. ABDOMEN: Soft, nontender. Nondistended. Bowel sounds heard in all 4 quadrants. No organomegaly or masses. Negative rebound, negative guarding EXTREMITIES: No edema, pulses are equal bilaterally. No cyanosis or clubbing NEUROLOGY: Mood and affect appear appropriate. Cranial nerves II through XII grossly intact moving all extremities, speech is clear Urinary Catheter: No Vascular Central Line Catheter: No A/P Assessment and Plan Inability to care for self, unsafe discharge due to cognition Initially he was indicated patient cannot walk, patient is walking at this time, PT and OT recommending supervision at home for safety Speech therapy following the patient intermittently for cognitive evaluations. 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 MIni mental state 28/30, recommended avoid antipsychotics and benzodiazepine. Recommending Depakote or carbamazepine Patient is medically stable for discharge, however due to underlying psychiatric/cognition patient is unsafe discharge until arrangements made by case management Case management for discharge planning Neuropsychiatry evaluated the patient recommended patient may improve with treatment, however indicates avoid benzodiazepines and antipsychotics Continue Prozac 40 mg daily Depakene 500 mg twice daily Seroquel 100 mg twice daily *Discussed with psychiatry again about patient's cognition issues. He indicated that the patient lacks capacity for signing AMA or to participate in discharge plan. He is recommending that he would invite the ethics committee to the hospital to have a discussion about patient care *Consulted case management for ethics committee review, awaiting response Mild malnutrition, secondary to poor by mouth intake Albumin 2.8 Prealbumin 19 However, patient actually has increase in weight of 6 pounds since admission. In the last 3 days it would appear that she's gained another 6 pounds Continue Remeron Dietary consulted who recommended ensure with breakfast lunch and there. May have muffin at bedtime, daily vitamin Recurrent falls, Patient moved close to nursing station Patient does state that she is having neck pain Patient denies any neurological symptoms of weakness, paresthesia, loss of bowel or bladder control Orthostatic vitals do show drop in systolic blood pressure when standing. Improved after hydration Status post 2 L normal saline and continue monitor orthostatic vitals MRI of the neck. Multilevel degenerative changes. Mild degree of canal stenosis C5-C6, anterior fusion C6-C7 MRI of thoracic and lumbar spine do not indicate any acute abnormality Clavicle x-ray shows nonacute distal clavicle fracture. Carotid ultrasound was unremarkable Echocardiogram indicate ejection fraction 50-55% without any abnormalities Physical therapy ordered for 5 days a week Multiple traumatic injuries, Patient laceration, subdural hemorrhage, ventricular hemorrhage, nasal fracture, C6 fracture, C1-C2 subluxation, C4 transverse process fracture, right rib fracture, L1 transverse process fracture, right pubic rami fracture Continue c-collar this time, however patient does not wear Follow-up cervical spine CT indicates no evidence of acute fracture. Postsurgical changes Specialist no longer following patient, patient will require outpatient follow-up if discharge Right breast abscess, improved Physical exam patient does have a erythematous area with drainage Ultrasound does show complex loculated collection measuring 2.4 x 1.7 x 1.8 cm. Representing breast abscess Status post Augmentin 500 mg twice daily for 10 days and Bactrim DS for 18 days Gen. surgery consulted who recommends no intervention at this time, Soft tissue ultrasound shows a improvement of the fluid collection. Awaiting arrangements for mammogram Hypothyroidism TSH 5.11, follow-up TSH 3.73 Free T4 0.57, free T3 1 0.47 Levothyroxine 25 g daily Monitor TSH every 6-8 weeks Hypertension, mildly elevated Continue monitor blood pressure may need to add medication Amlodipine 10 mg daily Add lisinopril 2.5 mg daily DVT prevention Patient ambulating Sequential compression devices while in bed Records are reviewed. Case management for discharge planning. Discharge Planning Case management for discharge planning, Conrado Mariee Jan 21, 2018 08:30
[2018-01-21] MEDS: QUEtiapine FUMARATE 100 MG TAB PO SCH ×2 (09:04→20:54)
[2018-01-21] MEDS: VALPROIC ACID 250 MG CAP PO SCH ×2 (09:04→20:54)
[2018-01-21] MEDS: MULTIVITAMIN TAB PO SCH (09:05)
[2018-01-21] MEDS: LISINOPRIL 5 MG TAB PO SCH (09:05)
[2018-01-21] MEDS: FLUoxetine HCL 20 MG CAP PO SCH (09:05)
[2018-01-21] MEDS: ERGOCALCIFEROL (VIT D2) 50,000 UNIT CAP PO SCH (09:42)
[2018-01-21] MEDS: ACETAMINOPHEN 325 MG TAB PO PRN ×2 (09:47→20:55)
[2018-01-21 20:00] VITALS: BP 121/72; PULSE 81; RESP 20; TEMP 97.2; O2SAT 93
[2018-01-21] MEDS: MIRTAZAPINE 15 MG TAB PO SCH (20:54)
[2018-01-22] MEDS: LEVOTHYROXINE SODIUM 25 MCG TAB PO SCH (06:38)
[2018-01-22] MEDS: ACETAMINOPHEN 325 MG TAB PO PRN ×2 (06:39→23:01)
[2018-01-22] MEDS: VALPROIC ACID 250 MG CAP PO SCH ×2 (08:14→20:44)
[2018-01-22] MEDS: MULTIVITAMIN TAB PO SCH (08:14)
[2018-01-22] MEDS: LISINOPRIL 5 MG TAB PO SCH (08:14)
[2018-01-22] MEDS: QUEtiapine FUMARATE 100 MG TAB PO SCH ×2 (08:14→20:45)
[2018-01-22] MEDS: FLUoxetine HCL 20 MG CAP PO SCH (08:15)
[2018-01-22 08:32] VITALS: BP 117/71; PULSE 74; RESP 16; TEMP 96.7; O2SAT 92
--- NOTE | 2018-01-22 09:47 | HHI.PR ---
Subjective Remarks Patient seen and examined today for follow-up on unsafe discharge due to cognition. Patient is doing well. Denies any new complaints. Awaiting case management for discharge planning. Objective Vitals Vital Signs Date Time Temp Pulse Resp B/P (MAP) Pulse Ox O2 Delivery O2 Flow Rate FiO2 01/22/18 08:32 96.7 74 16 117/71 (86) 92 01/22/18 07:39 20 01/21/18 20:00 97.2 81 20 121/72 (88) 93 I/O 01/21/18 01/21/18 01/21/18 01/22/18 01/22/18 01/22/18 07:00 15:00 23:00 07:00 15:00 23:00 Intake Total 450 ml 120 ml Balance 450 ml 120 ml Intake Oral 450 ml 120 ml # Voids 2 3 1 # Bowel Movements 0 1 Result Diagram: 01/21/18 0600 01/21/18 0600 Objective Remarks GENERAL: Well-developed, well-nourished, in no acute distress. alert and orientated waxes and wanes daily HEENT: Head is normocephalic without any lesions or masses noted. Facial features are symmetric. Eyes: Extraocular muscles are intact. Conjunctivae were clear. NECK: C-collar in on table at bedside CARDIAC: Regular rhythm, regular rate. S1/S2 are heard. No murmurs gallops or rubs. LUNGS: Clear to auscultation bilaterally. No wheeze, rhonchi or rales. No use of accessory muscles on inspiration or expiration. ABDOMEN: Soft, nontender. Nondistended. Bowel sounds heard in all 4 quadrants. No organomegaly or masses. Negative rebound, negative guarding EXTREMITIES: No edema, pulses are equal bilaterally. No cyanosis or clubbing NEUROLOGY: Mood and affect appear appropriate. Cranial nerves II through XII grossly intact moving all extremities, speech is clear Urinary Catheter: No Vascular Central Line Catheter: No A/P Assessment and Plan Inability to care for self, unsafe discharge due to cognition Initially he was indicated patient cannot walk, patient is walking at this time, PT and OT recommending supervision at home for safety Speech therapy following the patient intermittently for cognitive evaluations. 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 MIni mental state 28/30, recommended avoid antipsychotics and benzodiazepine. Recommending Depakote or carbamazepine Patient is medically stable for discharge, however due to underlying psychiatric/cognition patient is unsafe discharge until arrangements made by case management Case management for discharge planning Neuropsychiatry evaluated the patient recommended patient may improve with treatment, however indicates avoid benzodiazepines and antipsychotics Continue Prozac 40 mg daily Depakene 500 mg twice daily Seroquel 100 mg twice daily *Discussed with psychiatry again about patient's cognition issues. He indicated that the patient lacks capacity for signing AMA or to participate in discharge plan. He is recommending that he would invite the ethics committee to the hospital to have a discussion about patient care *Consulted case management for ethics committee review, awaiting response Mild malnutrition, secondary to poor by mouth intake Albumin 2.8 Prealbumin 19 However, patient actually has increase in weight of 6 pounds since admission. In the last 3 days it would appear that she's gained another 6 pounds Continue Remeron Dietary consulted who recommended ensure with breakfast lunch and there. May have muffin at bedtime, daily vitamin Recurrent falls, Patient moved close to nursing station Patient does state that she is having neck pain Patient denies any neurological symptoms of weakness, paresthesia, loss of bowel or bladder control Orthostatic vitals do show drop in systolic blood pressure when standing. Improved after hydration Status post 2 L normal saline and continue monitor orthostatic vitals MRI of the neck. Multilevel degenerative changes. Mild degree of canal stenosis C5-C6, anterior fusion C6-C7 MRI of thoracic and lumbar spine do not indicate any acute abnormality Clavicle x-ray shows nonacute distal clavicle fracture. Carotid ultrasound was unremarkable Echocardiogram indicate ejection fraction 50-55% without any abnormalities Physical therapy ordered for 5 days a week Multiple traumatic injuries, Patient laceration, subdural hemorrhage, ventricular hemorrhage, nasal fracture, C6 fracture, C1-C2 subluxation, C4 transverse process fracture, right rib fracture, L1 transverse process fracture, right pubic rami fracture Continue c-collar this time, however patient does not wear Follow-up cervical spine CT indicates no evidence of acute fracture. Postsurgical changes Specialist no longer following patient, patient will require outpatient follow-up if discharge Right breast abscess, improved Physical exam patient does have a erythematous area with drainage Ultrasound does show complex loculated collection measuring 2.4 x 1.7 x 1.8 cm. Representing breast abscess Status post Augmentin 500 mg twice daily for 10 days and Bactrim DS for 18 days Gen. surgery consulted who recommends no intervention at this time, Soft tissue ultrasound shows a improvement of the fluid collection. Awaiting arrangements for mammogram Hypothyroidism TSH 5.11, follow-up TSH 3.73 Free T4 0.57, free T3 1 0.47 Levothyroxine 25 g daily Monitor TSH every 6-8 weeks Hypertension, improved Continue monitor blood pressure may need to add medication Amlodipine 10 mg daily Lisinopril 2.5 mg daily DVT prevention Patient ambulating Sequential compression devices while in bed Records are reviewed. Case management for discharge planning. No change in current treatment plan Discharge Planning Case management for discharge planning, Conrado Mariee Jan 22, 2018 09:47
[2018-01-22 20:00] VITALS: BP 136/83; PULSE 79; RESP 20; TEMP 98.2; O2SAT 93
[2018-01-22] MEDS: MIRTAZAPINE 15 MG TAB PO SCH (20:45)
[2018-01-23] MEDS: LEVOTHYROXINE SODIUM 25 MCG TAB PO SCH (05:57)
[2018-01-23 08:00] VITALS: BP 117/75; PULSE 76; RESP 16; TEMP 97.3; O2SAT 96
--- NOTE | 2018-01-23 09:27 | HHI.PR ---
Subjective Remarks Patient seen and examined today for follow-up on a safe discharge. Patient denies any new complaints. No change in clinical status. Awaiting case management discharge planning. Vital signs are stable, afebrile Objective Vitals Vital Signs Date Time Temp Pulse Resp B/P (MAP) Pulse Ox O2 Delivery O2 Flow Rate FiO2 01/22/18 20:00 98.2 79 20 136/83 (100) 93 I/O 01/22/18 01/22/18 01/22/18 01/23/18 01/23/18 01/23/18 07:00 15:00 23:00 07:00 15:00 23:00 Intake Total 120 ml 300 ml 300 ml 240 ml Balance 120 ml 300 ml 300 ml 240 ml Intake Oral 120 ml 300 ml 300 ml 240 ml # Voids 1 7 1 # Bowel Movements 4 Result Diagram: 01/21/18 0600 01/21/18 0600 Objective Remarks GENERAL: Well-developed, well-nourished, in no acute distress. alert and orientated waxes and wanes daily HEENT: Head is normocephalic without any lesions or masses noted. Facial features are symmetric. Eyes: Extraocular muscles are intact. Conjunctivae were clear. NECK: C-collar in on table at bedside CARDIAC: Regular rhythm, regular rate. S1/S2 are heard. No murmurs gallops or rubs. LUNGS: Clear to auscultation bilaterally. No wheeze, rhonchi or rales. No use of accessory muscles on inspiration or expiration. ABDOMEN: Soft, nontender. Nondistended. Bowel sounds heard in all 4 quadrants. No organomegaly or masses. Negative rebound, negative guarding EXTREMITIES: No edema, pulses are equal bilaterally. No cyanosis or clubbing NEUROLOGY: Mood and affect appear appropriate. Cranial nerves II through XII grossly intact moving all extremities, speech is clear Urinary Catheter: No Vascular Central Line Catheter: No A/P Assessment and Plan Inability to care for self, unsafe discharge due to cognition Initially he was indicated patient cannot walk, patient is walking at this time, PT and OT recommending supervision at home for safety Speech therapy following the patient intermittently for cognitive evaluations. 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 MIni mental state 28/30, recommended avoid antipsychotics and benzodiazepine. Recommending Depakote or carbamazepine Patient is medically stable for discharge, however due to underlying psychiatric/cognition patient is unsafe discharge until arrangements made by case management Case management for discharge planning Neuropsychiatry evaluated the patient recommended patient may improve with treatment, however indicates avoid benzodiazepines and antipsychotics Continue Prozac 40 mg daily Depakene 500 mg twice daily Seroquel 100 mg twice daily *Discussed with psychiatry again about patient's cognition issues. He indicated that the patient lacks capacity for signing AMA or to participate in discharge plan. He is recommending that he would invite the ethics committee to the hospital to have a discussion about patient care *Consulted case management for ethics committee review, awaiting response Mild malnutrition, secondary to poor by mouth intake Albumin 2.8 Prealbumin 19 However, patient actually has increase in weight of 6 pounds since admission. In the last 3 days it would appear that she's gained another 6 pounds Continue Remeron Dietary consulted who recommended ensure with breakfast lunch and there. May have muffin at bedtime, daily vitamin Recurrent falls, Patient moved close to nursing station Patient does state that she is having neck pain Patient denies any neurological symptoms of weakness, paresthesia, loss of bowel or bladder control Orthostatic vitals do show drop in systolic blood pressure when standing. Improved after hydration Status post 2 L normal saline and continue monitor orthostatic vitals MRI of the neck. Multilevel degenerative changes. Mild degree of canal stenosis C5-C6, anterior fusion C6-C7 MRI of thoracic and lumbar spine do not indicate any acute abnormality Clavicle x-ray shows nonacute distal clavicle fracture. Carotid ultrasound was unremarkable Echocardiogram indicate ejection fraction 50-55% without any abnormalities Physical therapy ordered for 5 days a week Multiple traumatic injuries, Patient laceration, subdural hemorrhage, ventricular hemorrhage, nasal fracture, C6 fracture, C1-C2 subluxation, C4 transverse process fracture, right rib fracture, L1 transverse process fracture, right pubic rami fracture Continue c-collar this time, however patient does not wear Follow-up cervical spine CT indicates no evidence of acute fracture. Postsurgical changes Specialist no longer following patient, patient will require outpatient follow-up if discharge Right breast abscess, improved Physical exam patient does have a erythematous area with drainage Ultrasound does show complex loculated collection measuring 2.4 x 1.7 x 1.8 cm. Representing breast abscess Status post Augmentin 500 mg twice daily for 10 days and Bactrim DS for 18 days Gen. surgery consulted who recommends no intervention at this time, Soft tissue ultrasound shows a improvement of the fluid collection. Awaiting arrangements for mammogram Hypothyroidism TSH 5.11, follow-up TSH 3.73 Free T4 0.57, free T3 1 0.47 Levothyroxine 25 g daily Monitor TSH every 6-8 weeks Hypertension, improved Continue monitor blood pressure may need to add medication Amlodipine 10 mg daily Lisinopril 2.5 mg daily DVT prevention Patient ambulating Sequential compression devices while in bed Records are reviewed. No change in current treatment plan, Case management for discharge planning. Discharge Planning Case management for discharge planning, Conrado Mareie Jan 23, 2018 09:27
[2018-01-23] MEDS: LISINOPRIL 5 MG TAB PO SCH (09:34)
[2018-01-23] MEDS: VALPROIC ACID 250 MG CAP PO SCH ×2 (09:35→21:26)
[2018-01-23] MEDS: MULTIVITAMIN TAB PO SCH (09:36)
[2018-01-23] MEDS: FLUoxetine HCL 20 MG CAP PO SCH (09:36)
[2018-01-23] MEDS: QUEtiapine FUMARATE 100 MG TAB PO SCH ×2 (09:36→21:26)
[2018-01-23 20:00] VITALS: BP 118/94; PULSE 78; RESP 17; TEMP 96.8; O2SAT 94
[2018-01-23] MEDS: ACETAMINOPHEN 325 MG TAB PO PRN (21:27)
[2018-01-23] MEDS: MIRTAZAPINE 15 MG TAB PO SCH (21:27)
[2018-01-24] VITALS: BP 122/81; PULSE 77; RESP 18; TEMP 96.9; O2SAT 95
[2018-01-24] MEDS: LEVOTHYROXINE SODIUM 25 MCG TAB PO SCH (06:18)
--- NOTE | 2018-01-24 08:25 | HHI.PR ---
Subjective Remarks Patient seen and examined today for follow-up on unsafe discharge due to cognition. Patient denies any new complaints. States that she is eating like a hog. Vital signs are stable, patient afebrile Objective Vitals Vital Signs Date Time Temp Pulse Resp B/P (MAP) Pulse Ox O2 Delivery O2 Flow Rate FiO2 01/24/18 00:00 96.9 77 18 122/81 (95) 95 01/23/18 20:00 96.8 78 17 118/94 (102) 94 I/O 01/23/18 01/23/18 01/23/18 01/24/18 01/24/18 01/24/18 07:00 15:00 23:00 07:00 15:00 23:00 Intake Total 240 ml 300 ml 300 ml Balance 240 ml 300 ml 300 ml Intake Oral 240 ml 300 ml 300 ml # Voids 1 2 Result Diagram: 01/21/18 0600 01/21/18 0600 Objective Remarks GENERAL: Well-developed, well-nourished, in no acute distress. alert and orientated waxes and wanes daily HEENT: Head is normocephalic without any lesions or masses noted. Facial features are symmetric. Eyes: Extraocular muscles are intact. Conjunctivae were clear. NECK: C-collar in on table at bedside CARDIAC: Regular rhythm, regular rate. S1/S2 are heard. No murmurs gallops or rubs. LUNGS: Clear to auscultation bilaterally. No wheeze, rhonchi or rales. No use of accessory muscles on inspiration or expiration. ABDOMEN: Soft, nontender. Nondistended. Bowel sounds heard in all 4 quadrants. No organomegaly or masses. Negative rebound, negative guarding EXTREMITIES: No edema, pulses are equal bilaterally. No cyanosis or clubbing NEUROLOGY: Mood and affect appear appropriate. Cranial nerves II through XII grossly intact moving all extremities, speech is clear Urinary Catheter: No Vascular Central Line Catheter: No A/P Assessment and Plan Inability to care for self, unsafe discharge due to cognition Initially he was indicated patient cannot walk, patient is walking at this time, PT and OT recommending supervision at home for safety Speech therapy following the patient intermittently for cognitive evaluations. 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 MIni mental state 28/30, recommended avoid antipsychotics and benzodiazepine. Recommending Depakote or carbamazepine Patient is medically stable for discharge, however due to underlying psychiatric/cognition patient is unsafe discharge until arrangements made by case management Case management for discharge planning Neuropsychiatry evaluated the patient recommended patient may improve with treatment, however indicates avoid benzodiazepines and antipsychotics Continue Prozac 40 mg daily Depakene 500 mg twice daily Seroquel 100 mg twice daily *Discussed with psychiatry again about patient's cognition issues. He indicated that the patient lacks capacity for signing AMA or to participate in discharge plan. He is recommending that he would invite the ethics committee to the hospital to have a discussion about patient care *Consulted case management for ethics committee review, awaiting response Mild malnutrition, secondary to poor by mouth intake Albumin 2.8 Prealbumin 19 However, patient actually has increase in weight of 6 pounds since admission. In the last 3 days it would appear that she's gained another 6 pounds Continue Remeron Dietary consulted who recommended ensure with breakfast lunch and there. May have muffin at bedtime, daily vitamin Recurrent falls, Patient moved close to nursing station Patient does state that she is having neck pain Patient denies any neurological symptoms of weakness, paresthesia, loss of bowel or bladder control Orthostatic vitals do show drop in systolic blood pressure when standing. Improved after hydration Status post 2 L normal saline and continue monitor orthostatic vitals MRI of the neck. Multilevel degenerative changes. Mild degree of canal stenosis C5-C6, anterior fusion C6-C7 MRI of thoracic and lumbar spine do not indicate any acute abnormality Clavicle x-ray shows nonacute distal clavicle fracture. Carotid ultrasound was unremarkable Echocardiogram indicate ejection fraction 50-55% without any abnormalities Physical therapy ordered for 5 days a week Multiple traumatic injuries, Patient laceration, subdural hemorrhage, ventricular hemorrhage, nasal fracture, C6 fracture, C1-C2 subluxation, C4 transverse process fracture, right rib fracture, L1 transverse process fracture, right pubic rami fracture Continue c-collar this time, however patient does not wear Follow-up cervical spine CT indicates no evidence of acute fracture. Postsurgical changes Specialist no longer following patient, patient will require outpatient follow-up if discharge Right breast abscess, improved Physical exam patient does have a erythematous area with drainage Ultrasound does show complex loculated collection measuring 2.4 x 1.7 x 1.8 cm. Representing breast abscess Status post Augmentin 500 mg twice daily for 10 days and Bactrim DS for 18 days Gen. surgery consulted who recommends no intervention at this time, Soft tissue ultrasound shows a improvement of the fluid collection. Awaiting arrangements for mammogram Hypothyroidism TSH 5.11, follow-up TSH 3.73 Free T4 0.57, free T3 1 0.47 Levothyroxine 25 g daily Monitor TSH every 6-8 weeks Hypertension, improved Continue monitor blood pressure may need to add medication Amlodipine 10 mg daily Lisinopril 2.5 mg daily DVT prevention Patient ambulating Sequential compression devices while in bed Records are reviewed. Case management for discharge planning. No change in current treatment plan, Discharge Planning Case management for discharge planning, Conrado Mariee Jan 24, 2018 08:25
[2018-01-24 09:08] VITALS: BP 115/71; PULSE 75; RESP 15; TEMP 97.1; O2SAT 94
[2018-01-24] MEDS: FLUoxetine HCL 20 MG CAP PO SCH (09:17)
[2018-01-24] MEDS: MULTIVITAMIN TAB PO SCH (09:17)
[2018-01-24] MEDS: VALPROIC ACID 250 MG CAP PO SCH ×2 (09:17→21:29)
[2018-01-24] MEDS: LISINOPRIL 5 MG TAB PO SCH (09:18)
[2018-01-24] MEDS: QUEtiapine FUMARATE 100 MG TAB PO SCH ×2 (09:21→21:37)
[2018-01-24 20:00] VITALS: BP 133/83; PULSE 81; RESP 16; TEMP 97; O2SAT 95
[2018-01-24] MEDS: MIRTAZAPINE 15 MG TAB PO SCH (21:29)
[2018-01-25] VITALS: BP 128/79; PULSE 79; RESP 18; TEMP 97.9; O2SAT 94
[2018-01-25] MEDS: LEVOTHYROXINE SODIUM 25 MCG TAB PO SCH (06:49)
[2018-01-25 08:00] VITALS: BP 137/76; PULSE 65; RESP 18; TEMP 96.4; O2SAT 94
[2018-01-25] MEDS: QUEtiapine FUMARATE 100 MG TAB PO SCH ×2 (11:05→20:27)
[2018-01-25] MEDS: VALPROIC ACID 250 MG CAP PO SCH ×2 (11:05→20:26)
[2018-01-25] MEDS: MULTIVITAMIN TAB PO SCH (11:05)
[2018-01-25] MEDS: LISINOPRIL 5 MG TAB PO SCH (11:06)
[2018-01-25] MEDS: FLUoxetine HCL 20 MG CAP PO SCH (11:06)
[2018-01-25 12:00] VITALS: BP 149/88; PULSE 78; RESP 18; TEMP 96.6; O2SAT 95
--- NOTE | 2018-01-25 12:54 | HHI.PR ---
Subjective Remarks Follow-up unsafe discharge due to cognition. Patient seen and examined, she went to get her mammogram today. She states she is happy to get out today. Denies any new acute complaints. Vital signs are stable. Afebrile. No change in clinical condition. Objective Vitals Vital Signs Date Time Temp Pulse Resp B/P (MAP) Pulse Ox O2 Delivery O2 Flow Rate FiO2 01/25/18 12:00 96.6 78 18 149/88 (108) 95 01/25/18 08:00 96.4 65 18 137/76 (96) 94 01/25/18 00:00 97.9 79 18 128/79 (95) 94 01/24/18 20:00 97.0 81 16 133/83 (100) 95 I/O 01/24/18 01/24/18 01/24/18 01/25/18 01/25/18 01/25/18 07:00 15:00 23:00 07:00 15:00 23:00 Intake Total 1200 ml Balance 1200 ml Intake Oral 1200 ml # Voids 2 3 2 # Bowel Movements 1 Result Diagram: 01/21/18 0600 01/21/18 0600 Imaging Last Impressions Clavicle X-Ray 12/16/17 0000 Signed Impressions: Service Date/Time: December 19:51 - CONCLUSION: Distal clavicle is fractured but this appears nonacute. No acute fracture demonstrated. Jovany Hayes MD Thoracic Spine MRI 12/01/17 0000 Signed Impressions: Service Date/Time: Friday, December 01, 2017 15:10 - CONCLUSION: Negative for acute process. Vimal Taylor MD FACR Lumbar Spine MRI 12/01/17 0000 Signed Impressions: Service Date/Time: Friday, December 01, 2017 15:10 - CONCLUSION: Negative MRI of the lumbar spine. Vimal Taylor MD FACR Carotid Artery Ultrasound 11/30/17 0000 Signed Impressions: Service Date/Time: Thursday, November 30, 2017 14:34 - CONCLUSION: 1. Mild plaque with no hemodynamically significant stenosis. Vertebral artery flow antegrade. Fadi Carolina MD Cervical Spine MRI 11/28/17 0000 Signed Impressions: Service Date/Time: Tuesday, November 28, 2017 15:10 - CONCLUSION: 1. Multilevel posterior disc osteophyte complexes as described above. 2. Anterior fusion C6- 7. Dylon Haddad MD Knee X-Ray 11/02/17 0000 Signed Impressions: Service Date/Time: Thursday, November 02, 2017 18:51 - CONCLUSION: Intact right knee. Jovany Hayes MD Head CT 11/02/17 0000 Signed Impressions: Service Date/Time: Thursday, November 02, 2017 18:35 - CONCLUSION: 1. No bleed or other acute intracranial abnormality. 2. Previously seen intracranial hemorrhage has resolved. A small area of chronic encephalomalacia has developed of the right frontal lobe. 3. Chronic periventricular white matter changes are again noted. Jovany Hayes MD Breast Ultrasound 10/15/17 0000 Signed Impressions: Service Date/Time: Sunday, October 15, 2017 09:06 - CONCLUSION: Persistent subcutaneous collection at the 12:00 position of the right breast. It has slightly decreased in size since the study dated 09/23/2017 and could represent an infectious process. Consider followup to confirm resolution. Jovany Quezada MD Chest X-Ray 09/03/17 0000 Signed Impressions: Service Date/Time: Sunday, September 03, 2017 17:02 - CONCLUSION: 1. Mild edema pattern. Subsegmental basilar airspace disease most characteristic of atelectasis.. Fadi Carolina MD Cervical Spine CT 09/02/17 0000 Signed Impressions: Service Date/Time: August 12:56 - CONCLUSION: Postsurgical changes from anterior cervical plate at C6-7. No evidence of compression deformity or spondylolisthesis. Arun Regan MD Pelvis X-Ray 06/30/17 0000 Signed Impressions: Service Date/Time: Friday, June 30, 2017 12:17 - CONCLUSION: No significant change has occurred. Carlos Capps MD Objective Remarks GENERAL: Well-nourished, well-developed female in NAD. SKIN: Warm and dry. No rash. HEENT: Normocephalic. Atraumatic. Pupils equal and round. No scleral icterus. No injection or drainage. No nasal bleeding or discharge. Mucous membranes pink and moist. NECK: Supple. Trachea midline. CARDIOVASCULAR: Regular rate and rhythm. S1, S2 noted. No murmur appreciated. RESPIRATORY: No accessory muscle use. Clear to auscultation. Breath sounds equal bilaterally. GASTROINTESTINAL: Abdomen soft, non-tender, nondistended. Normoactive bowel sounds x4. No guarding noted. MUSCULOSKELETAL: No obvious deformities. Extremities without clubbing, cyanosis , or edema. NEUROLOGICAL: Awake and alert. No obvious cranial nerve deficits. Motor grossly within normal limits. 5/5 muscle strength in bilateral upper and lower extremities. Normal speech. PSYCHIATRIC: Appropriate mood and affect. A/P Problem List: (1) Alcohol dependence in controlled environment ICD Code: F10.20 - Alcohol dependence, uncomplicated Status: Chronic (2) Facial injury ICD Code: S09.93XA - Unspecified injury of face, initial encounter Status: Acute (3) Fall ICD Code: W19.XXXA - Unspecified fall, initial encounter Status: Acute (4) Hypertension ICD Code: I10 - Essential (primary) hypertension Status: Acute (5) Pelvic fracture ICD Code: S32.9XXA - Fracture of unspecified parts of lumbosacral spine and pelvis, initial encounter for closed fracture Status: Acute (6) C1-C2 subluxation ICD Code: S13.120A - Subluxation of C1/C2 cervical vertebrae, initial encounter Status: Acute (7) C6 cervical fracture ICD Code: S12.500A - Unspecified displaced fracture of sixth cervical vertebra , initial encounter for closed fracture Status: Acute (8) Traumatic brain injury ICD Code: S06.9X9A - Unspecified intracranial injury with loss of consciousness of unspecified duration, initial encounter Status: Acute (9) Nasal fracture ICD Code: S02.2XXA - Fracture of nasal bones, initial encounter for closed fracture Status: Acute (10) Mild neurocognitive disorder ICD Code: G31.84 - Mild cognitive impairment, so stated Status: Acute (11) Intracranial bleed ICD Code: I62.9 - Nontraumatic intracranial hemorrhage, unspecified Status: Acute Assessment and Plan Inability to care for self, unsafe discharge due to cognition PT and OT recommending supervision at home for safety. Speech therapy following the patient intermittently for cognitive evaluations. 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 Mini mental state 28/30, recommended avoid antipsychotics and benzodiazepine. Recommending Depakote or carbamazepine. Patient is medically stable for discharge, however due to underlying psychiatric/cognition patient is unsafe discharge until arrangements made by case management. Case management for discharge planning. Neuropsychiatry evaluated the patient recommended patient may improve with treatment, however indicates avoid benzodiazepines and antipsychotics Continue Prozac 40 mg daily Depakene 500 mg twice daily Seroquel 100 mg twice daily *Psychiatry indicated that the patient lacks capacity for signing AMA or to participate in discharge plan. He is recommending that he would invite the ethics committee to the hospital to have a discussion about patient care *Consulted case management for ethics committee review, awaiting response Recurrent falls. Resolved. Patient moved close to nursing station. Patient denies any neurological symptoms of weakness, paresthesia, loss of bowel or bladder control Orthostatic vitals do show drop in systolic blood pressure when standing. Improved after hydration. MRI of the neck. Multilevel degenerative changes. Mild degree of canal stenosis C5-C6, anterior fusion C6-C7 MRI of thoracic and lumbar spine do not indicate any acute abnormality Carotid ultrasound was unremarkable. Echocardiogram indicate ejection fraction 50-55% without any abnormalities Physical therapy ordered for 5 days a week Mild malnutrition, secondary to poor by mouth intake. Resolved. Albumin 2.8. Prealbumin 19. After review of weight trend, has been gaining weight. Continue Remeron. Dietary consulted who recommended ensure with breakfast lunch and there. May have muffin at bedtime, daily vitamin. Multiple traumatic injuries Patient laceration, subdural hemorrhage, ventricular hemorrhage, nasal fracture, C6 fracture, C1-C2 subluxation, C4 transverse process fracture, right rib fracture, L1 transverse process fracture, right pubic rami fracture Continue c-collar this time, however patient does not wear Follow-up cervical spine CT 1026/17 indicates no evidence of acute fracture. Postsurgical changes Specialist no longer following patient, patient will require outpatient follow-up if discharge Right breast abscess, Improved. Physical exam shows improvement. Ultrasound does show complex loculated collection measuring 2.4 x 1.7 x 1.8 cm. Representing breast abscess Status post Augmentin 500 mg twice daily for 10 days (end date 10/25/17). Finished Bactrim DS for 18 days Gen. surgery consulted who recommends no intervention at this time. Soft tissue ultrasound shows a improvement of the fluid collection. Outpatient mammogram performed today, 01/25/18. Hypothyroidism TSH 3.73 Free T4 0.57, free T3 1 0.47 Levothyroxine 25 g daily Monitor TSH every 6-8 weeks. TSH last checked 3.73 on January 21. Continue current treatment. Hypertension Amlodipine 10 mg daily DVT prevention Patient ambulating Sequential compression devices while in bed Records were reviewed. Awaiting case management for discharge planning, No change in current treatment plan. Discharge Planning Due to underlying psychiatric/cognition patient is unsafe discharge until arrangements made by case management. Problem Qualifiers (1) Hypertension: Qualified Codes: I10 - Essential (primary) hypertension Alyssa Means Jan 25, 2018 12:54
[2018-01-25] MEDS: ACETAMINOPHEN 325 MG TAB PO PRN (17:43)
[2018-01-25 20:00] VITALS: BP 143/81; PULSE 85; RESP 20; TEMP 96.3; O2SAT 94
[2018-01-25] MEDS: MIRTAZAPINE 15 MG TAB PO SCH (20:27)
[2018-01-26] MEDS: LEVOTHYROXINE SODIUM 25 MCG TAB PO SCH (05:34)
[2018-01-26 07:50] VITALS: BP 136/83; PULSE 70; RESP 20; TEMP 96.4; O2SAT 94
--- NOTE | 2018-01-26 09:43 | HHI.PR ---
Subjective Remarks Follow-up unsafe discharge due to cognition. Patient seen and examined, lying in bed comfortably in no apparent distress. Denies any no acute complaints. No change in clinical condition. Vital signs are stable. Objective Vitals Vital Signs Date Time Temp Pulse Resp B/P (MAP) Pulse Ox O2 Delivery O2 Flow Rate FiO2 01/26/18 07:50 96.4 70 20 136/83 (100) 94 01/25/18 20:00 96.3 85 20 143/81 (101) 94 01/25/18 12:00 96.6 78 18 149/88 (108) 95 I/O 01/25/18 01/25/18 01/25/18 01/26/18 01/26/18 01/26/18 07:00 15:00 23:00 07:00 15:00 23:00 Intake Total 600 ml 120 ml Balance 600 ml 120 ml Intake Oral 600 ml 120 ml # Voids 2 4 4 # Bowel Movements 0 Imaging Last Impressions Clavicle X-Ray 12/16/17 0000 Signed Impressions: Service Date/Time: December 19:51 - CONCLUSION: Distal clavicle is fractured but this appears nonacute. No acute fracture demonstrated. Jovany Hayes MD Thoracic Spine MRI 12/01/17 0000 Signed Impressions: Service Date/Time: Friday, December 01, 2017 15:10 - CONCLUSION: Negative for acute process. Vimal Taylor MD FACR Lumbar Spine MRI 12/01/17 0000 Signed Impressions: Service Date/Time: Friday, December 01, 2017 15:10 - CONCLUSION: Negative MRI of the lumbar spine. Vimal Taylor MD FACR Carotid Artery Ultrasound 11/30/17 0000 Signed Impressions: Service Date/Time: Thursday, November 30, 2017 14:34 - CONCLUSION: 1. Mild plaque with no hemodynamically significant stenosis. Vertebral artery flow antegrade. Fadi Carolina MD Cervical Spine MRI 11/28/17 0000 Signed Impressions: Service Date/Time: Tuesday, November 28, 2017 15:10 - CONCLUSION: 1. Multilevel posterior disc osteophyte complexes as described above. 2. Anterior fusion C6- 7. Dylon Haddad MD Knee X-Ray 11/02/17 0000 Signed Impressions: Service Date/Time: Thursday, November 02, 2017 18:51 - CONCLUSION: Intact right knee. Jovany Hayes MD Head CT 11/02/17 0000 Signed Impressions: Service Date/Time: Thursday, November 02, 2017 18:35 - CONCLUSION: 1. No bleed or other acute intracranial abnormality. 2. Previously seen intracranial hemorrhage has resolved. A small area of chronic encephalomalacia has developed of the right frontal lobe. 3. Chronic periventricular white matter changes are again noted. Jovany Hayes MD Breast Ultrasound 10/15/17 0000 Signed Impressions: Service Date/Time: Sunday, October 15, 2017 09:06 - CONCLUSION: Persistent subcutaneous collection at the 12:00 position of the right breast. It has slightly decreased in size since the study dated 09/23/2017 and could represent an infectious process. Consider followup to confirm resolution. Jovany Quezada MD Chest X-Ray 09/03/17 0000 Signed Impressions: Service Date/Time: Sunday, September 03, 2017 17:02 - CONCLUSION: 1. Mild edema pattern. Subsegmental basilar airspace disease most characteristic of atelectasis.. Fadi Carolina MD Cervical Spine CT 09/02/17 0000 Signed Impressions: Service Date/Time: August 12:56 - CONCLUSION: Postsurgical changes from anterior cervical plate at C6-7. No evidence of compression deformity or spondylolisthesis. Arun Regan MD Pelvis X-Ray 06/30/17 0000 Signed Impressions: Service Date/Time: Friday, June 30, 2017 12:17 - CONCLUSION: No significant change has occurred. Carlos Capps MD Objective Remarks GENERAL: Well-nourished, well-developed female in [facility]. SKIN: Warm and dry. No rash. HEENT: Normocephalic. Atraumatic. Pupils equal and round. No scleral icterus. No injection or drainage. No nasal bleeding or discharge. Mucous membranes pink and moist. NECK: Supple. Trachea midline. CARDIOVASCULAR: Regular rate and rhythm. S1, S2 noted. No murmur appreciated. RESPIRATORY: No accessory muscle use. Clear to auscultation. Breath sounds equal bilaterally. GASTROINTESTINAL: Abdomen soft, non-tender, nondistended. Normoactive bowel sounds x4. No guarding noted. MUSCULOSKELETAL: No obvious deformities. Extremities without clubbing, cyanosis , or edema. NEUROLOGICAL: Awake and alert. No obvious cranial nerve deficits. Motor grossly within normal limits. 5/5 muscle strength in bilateral upper and lower extremities. Normal speech. PSYCHIATRIC: Appropriate mood and affect. A/P Problem List: (1) Alcohol dependence in controlled environment ICD Code: F10.20 - Alcohol dependence, uncomplicated Status: Chronic (2) Facial injury ICD Code: S09.93XA - Unspecified injury of face, initial encounter Status: Acute (3) Fall ICD Code: W19.XXXA - Unspecified fall, initial encounter Status: Acute (4) Hypertension ICD Code: I10 - Essential (primary) hypertension Status: Acute (5) Pelvic fracture ICD Code: S32.9XXA - Fracture of unspecified parts of lumbosacral spine and pelvis, initial encounter for closed fracture Status: Acute (6) C1-C2 subluxation ICD Code: S13.120A - Subluxation of C1/C2 cervical vertebrae, initial encounter Status: Acute (7) C6 cervical fracture ICD Code: S12.500A - Unspecified displaced fracture of sixth cervical vertebra , initial encounter for closed fracture Status: Acute (8) Traumatic brain injury ICD Code: S06.9X9A - Unspecified intracranial injury with loss of consciousness of unspecified duration, initial encounter Status: Acute (9) Nasal fracture ICD Code: S02.2XXA - Fracture of nasal bones, initial encounter for closed fracture Status: Acute (10) Mild neurocognitive disorder ICD Code: G31.84 - Mild cognitive impairment, so stated Status: Acute (11) Intracranial bleed ICD Code: I62.9 - Nontraumatic intracranial hemorrhage, unspecified Status: Acute Assessment and Plan Inability to care for self, unsafe discharge due to cognition PT and OT recommending supervision at home for safety. Speech therapy following the patient intermittently for cognitive evaluations. 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 Mini mental state 28/30, recommended avoid antipsychotics and benzodiazepine. Recommending Depakote or carbamazepine. Patient is medically stable for discharge, however due to underlying psychiatric/cognition patient is unsafe discharge until arrangements made by case management. Case management for discharge planning. Neuropsychiatry evaluated the patient recommended patient may improve with treatment, however indicates avoid benzodiazepines and antipsychotics Continue Prozac 40 mg daily Depakene 500 mg twice daily Seroquel 100 mg twice daily *Psychiatry indicated that the patient lacks capacity for signing AMA or to participate in discharge plan. He is recommending that he would invite the ethics committee to the hospital to have a discussion about patient care *Consulted case management for ethics committee review, awaiting response Recurrent falls. Resolved. Patient moved close to nursing station. Patient denies any neurological symptoms of weakness, paresthesia, loss of bowel or bladder control Orthostatic vitals do show drop in systolic blood pressure when standing. Improved after hydration. MRI of the neck. Multilevel degenerative changes. Mild degree of canal stenosis C5-C6, anterior fusion C6-C7 MRI of thoracic and lumbar spine do not indicate any acute abnormality Carotid ultrasound was unremarkable. Echocardiogram indicate ejection fraction 50-55% without any abnormalities Physical therapy ordered for 5 days a week Mild malnutrition, secondary to poor by mouth intake. Resolved. Albumin 2.8. Prealbumin 19. After review of weight trend, has been gaining weight. Continue Remeron. Dietary consulted who recommended ensure with breakfast lunch and there. May have muffin at bedtime, daily vitamin. Multiple traumatic injuries Patient laceration, subdural hemorrhage, ventricular hemorrhage, nasal fracture, C6 fracture, C1-C2 subluxation, C4 transverse process fracture, right rib fracture, L1 transverse process fracture, right pubic rami fracture Continue c-collar this time, however patient does not wear Follow-up cervical spine CT indicates no evidence of acute fracture. Postsurgical changes Specialist no longer following patient, patient will require outpatient follow-up if discharge Right breast abscess, Improved. Physical exam shows improvement. Ultrasound does show complex loculated collection measuring 2.4 x 1.7 x 1.8 cm. Representing breast abscess Status post Augmentin 500 mg twice daily for 10 days (end date 10/25/17). Finished Bactrim DS for 18 days Gen. surgery consulted who recommends no intervention at this time. Soft tissue ultrasound shows a improvement of the fluid collection. Outpatient mammogram performed today, 01/25/18. Benign findings, recommendations for follow-up breast ultrasound in 3 months. Hypothyroidism TSH 3.73 Free T4 0.57, free T3 1 0.47 Levothyroxine 25 g daily Monitor TSH every 6-8 weeks. TSH last checked 3.73 on January 21. Continue current treatment. Hypertension Amlodipine 10 mg daily DVT prevention Patient ambulating Sequential compression devices while in bed Records were reviewed. Awaiting case management for discharge planning, No change in current treatment plan. Discharge Planning Due to underlying psychiatric/cognition patient is unsafe discharge until arrangements made by case management. Problem Qualifiers (1) Hypertension: Qualified Codes: I10 - Essential (primary) hypertension Alyssa Means Jan 26, 2018 09:43
[2018-01-26] MEDS: VALPROIC ACID 250 MG CAP PO SCH ×2 (11:54→22:36)
[2018-01-26] MEDS: FLUoxetine HCL 20 MG CAP PO SCH (11:54)
[2018-01-26] MEDS: LISINOPRIL 5 MG TAB PO SCH (11:55)
[2018-01-26] MEDS: MULTIVITAMIN TAB PO SCH (11:55)
[2018-01-26] MEDS: QUEtiapine FUMARATE 100 MG TAB PO SCH ×2 (11:55→22:36)
[2018-01-26 20:00] VITALS: BP 112/75; PULSE 89; RESP 20; TEMP 96.1; O2SAT 92
[2018-01-26] MEDS: MIRTAZAPINE 15 MG TAB PO SCH (22:36)
[2018-01-27] MEDS: LEVOTHYROXINE SODIUM 25 MCG TAB PO SCH (06:25)
[2018-01-27 07:50] VITALS: BP 137/83; PULSE 69; RESP 20; TEMP 97.5; O2SAT 94
[2018-01-27] MEDS: LISINOPRIL 5 MG TAB PO SCH (08:45)
[2018-01-27] MEDS: VALPROIC ACID 250 MG CAP PO SCH ×2 (08:45→21:46)
[2018-01-27] MEDS: MULTIVITAMIN TAB PO SCH (08:45)
[2018-01-27] MEDS: FLUoxetine HCL 20 MG CAP PO SCH (08:45)
[2018-01-27] MEDS: QUEtiapine FUMARATE 100 MG TAB PO SCH ×2 (08:45→21:46)
--- NOTE | 2018-01-27 09:42 | HHI.PR ---
Subjective Remarks Follow-up unsafe discharge due to cognition. Patient seen and examined. Denies any new acute complaints. Vital signs are stable. Afebrile. No change in clinical condition. Objective Vitals Vital Signs Date Time Temp Pulse Resp B/P (MAP) Pulse Ox O2 Delivery O2 Flow Rate FiO2 01/27/18 07:50 97.5 69 20 137/83 (101) 94 01/26/18 20:00 96.1 89 20 112/75 (87) 92 I/O 01/26/18 01/26/18 01/26/18 01/27/18 01/27/18 01/27/18 07:00 15:00 23:00 07:00 15:00 23:00 Intake Total 120 ml 357 ml 240 ml Balance 120 ml 357 ml 240 ml Intake Oral 120 ml 357 ml 240 ml # Voids 4 4 1 # Bowel Movements 0 Imaging Last Impressions Clavicle X-Ray 12/16/17 0000 Signed Impressions: Service Date/Time: December 19:51 - CONCLUSION: Distal clavicle is fractured but this appears nonacute. No acute fracture demonstrated. Jovany Hayes MD Thoracic Spine MRI 12/01/17 0000 Signed Impressions: Service Date/Time: Friday, December 01, 2017 15:10 - CONCLUSION: Negative for acute process. Vimal Taylor MD FACR Lumbar Spine MRI 12/01/17 0000 Signed Impressions: Service Date/Time: Friday, December 01, 2017 15:10 - CONCLUSION: Negative MRI of the lumbar spine. Vimal Taylor MD FACR Carotid Artery Ultrasound 11/30/17 0000 Signed Impressions: Service Date/Time: Thursday, November 30, 2017 14:34 - CONCLUSION: 1. Mild plaque with no hemodynamically significant stenosis. Vertebral artery flow antegrade. Fadi Carolina MD Cervical Spine MRI 11/28/17 0000 Signed Impressions: Service Date/Time: Tuesday, November 28, 2017 15:10 - CONCLUSION: 1. Multilevel posterior disc osteophyte complexes as described above. 2. Anterior fusion C6- 7. Dylon Haddad MD Knee X-Ray 11/02/17 0000 Signed Impressions: Service Date/Time: Thursday, November 02, 2017 18:51 - CONCLUSION: Intact right knee. Jovany Hayes MD Head CT 11/02/17 0000 Signed Impressions: Service Date/Time: Thursday, November 02, 2017 18:35 - CONCLUSION: 1. No bleed or other acute intracranial abnormality. 2. Previously seen intracranial hemorrhage has resolved. A small area of chronic encephalomalacia has developed of the right frontal lobe. 3. Chronic periventricular white matter changes are again noted. Jovany Hayes MD Breast Ultrasound 10/15/17 0000 Signed Impressions: Service Date/Time: Sunday, October 15, 2017 09:06 - CONCLUSION: Persistent subcutaneous collection at the 12:00 position of the right breast. It has slightly decreased in size since the study dated 09/23/2017 and could represent an infectious process. Consider followup to confirm resolution. Jovany Quezada MD Chest X-Ray 09/03/17 0000 Signed Impressions: Service Date/Time: Sunday, September 03, 2017 17:02 - CONCLUSION: 1. Mild edema pattern. Subsegmental basilar airspace disease most characteristic of atelectasis.. Fadi Carolina MD Cervical Spine CT 09/02/17 0000 Signed Impressions: Service Date/Time: August 12:56 - CONCLUSION: Postsurgical changes from anterior cervical plate at C6-7. No evidence of compression deformity or spondylolisthesis. Arun Regan MD Pelvis X-Ray 06/30/17 0000 Signed Impressions: Service Date/Time: Friday, June 30, 2017 12:17 - CONCLUSION: No significant change has occurred. Carlos Capps MD Objective Remarks GENERAL: Well-nourished, well-developed female in [facility]. SKIN: Warm and dry. No rash. HEENT: Normocephalic. Atraumatic. Pupils equal and round. No scleral icterus. No injection or drainage. No nasal bleeding or discharge. Mucous membranes pink and moist. NECK: Supple. Trachea midline. CARDIOVASCULAR: Regular rate and rhythm. S1, S2 noted. No murmur appreciated. RESPIRATORY: No accessory muscle use. Clear to auscultation. Breath sounds equal bilaterally. GASTROINTESTINAL: Abdomen soft, non-tender, nondistended. Normoactive bowel sounds x4. No guarding noted. MUSCULOSKELETAL: No obvious deformities. Extremities without clubbing, cyanosis , or edema. NEUROLOGICAL: Awake and alert. No obvious cranial nerve deficits. Motor grossly within normal limits. 5/5 muscle strength in bilateral upper and lower extremities. Normal speech. PSYCHIATRIC: Appropriate mood and affect. A/P Problem List: (1) Alcohol dependence in controlled environment ICD Code: F10.20 - Alcohol dependence, uncomplicated Status: Chronic (2) Facial injury ICD Code: S09.93XA - Unspecified injury of face, initial encounter Status: Acute (3) Fall ICD Code: W19.XXXA - Unspecified fall, initial encounter Status: Acute (4) Hypertension ICD Code: I10 - Essential (primary) hypertension Status: Acute (5) Pelvic fracture ICD Code: S32.9XXA - Fracture of unspecified parts of lumbosacral spine and pelvis, initial encounter for closed fracture Status: Acute (6) C1-C2 subluxation ICD Code: S13.120A - Subluxation of C1/C2 cervical vertebrae, initial encounter Status: Acute (7) C6 cervical fracture ICD Code: S12.500A - Unspecified displaced fracture of sixth cervical vertebra , initial encounter for closed fracture Status: Acute (8) Traumatic brain injury ICD Code: S06.9X9A - Unspecified intracranial injury with loss of consciousness of unspecified duration, initial encounter Status: Acute (9) Nasal fracture ICD Code: S02.2XXA - Fracture of nasal bones, initial encounter for closed fracture Status: Acute (10) Mild neurocognitive disorder ICD Code: G31.84 - Mild cognitive impairment, so stated Status: Acute (11) Intracranial bleed ICD Code: I62.9 - Nontraumatic intracranial hemorrhage, unspecified Status: Acute Assessment and Plan Inability to care for self, unsafe discharge due to cognition PT and OT recommending supervision at home for safety. Speech therapy following the patient intermittently for cognitive evaluations. 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 Mini mental state 28/30, recommended avoid antipsychotics and benzodiazepine. Recommending Depakote or carbamazepine. Patient is medically stable for discharge, however due to underlying psychiatric/cognition patient is unsafe discharge until arrangements made by case management. Case management for discharge planning. Neuropsychiatry evaluated the patient recommended patient may improve with treatment, however indicates avoid benzodiazepines and antipsychotics Continue Prozac 40 mg daily Depakene 500 mg twice daily Seroquel 100 mg twice daily *Psychiatry indicated that the patient lacks capacity for signing AMA or to participate in discharge plan. He is recommending that he would invite the ethics committee to the hospital to have a discussion about patient care *Consulted case management for ethics committee review, awaiting response Recurrent falls. Resolved. Patient moved close to nursing station. Patient denies any neurological symptoms of weakness, paresthesia, loss of bowel or bladder control Orthostatic vitals do show drop in systolic blood pressure when standing. Improved after hydration. MRI of the neck. Multilevel degenerative changes. Mild degree of canal stenosis C5-C6, anterior fusion C6-C7 MRI of thoracic and lumbar spine do not indicate any acute abnormality Carotid ultrasound was unremarkable. Echocardiogram indicate ejection fraction 50-55% without any abnormalities Physical therapy ordered for 5 days a week Mild malnutrition, secondary to poor by mouth intake. Resolved. Albumin 2.8. Prealbumin 19. After review of weight trend, has been gaining weight. Continue Remeron. Dietary consulted who recommended ensure with breakfast lunch and there. May have muffin at bedtime, daily vitamin. Multiple traumatic injuries Patient laceration, subdural hemorrhage, ventricular hemorrhage, nasal fracture, C6 fracture, C1-C2 subluxation, C4 transverse process fracture, right rib fracture, L1 transverse process fracture, right pubic rami fracture Continue c-collar this time, however patient does not wear [place] [address]/24 indicates no evidence of acute fracture. Postsurgical changes Specialist no longer following patient, patient will require outpatient follow-up if discharge Right breast abscess, Improved. Physical exam shows improvement. Ultrasound does show complex loculated collection measuring 2.4 x 1.7 x 1.8 cm. Representing breast abscess Status post Augmentin 500 mg twice daily for 10 days (end date 10/25/17). Finished Bactrim DS for 18 days Gen. surgery consulted who recommends no intervention at this time. Soft tissue ultrasound shows a improvement of the fluid collection. Outpatient mammogram performed today, 01/25/18. Benign findings, recommendations for follow-up breast ultrasound in 3 months. Hypothyroidism TSH 3.73 Free T4 0.57, free T3 1 0.47 Levothyroxine 25 g daily Monitor TSH every 6-8 weeks. TSH last checked 3.73 on January 21. Continue current treatment. Hypertension Amlodipine 10 mg daily DVT prevention Patient ambulating Sequential compression devices while in bed Records were reviewed. Awaiting case management for discharge planning, No change in current treatment plan. Discharge Planning Due to underlying psychiatric/cognition patient is unsafe discharge until arrangements made by case management. Problem Qualifiers (1) Hypertension: Qualified Codes: I10 - Essential (primary) hypertension Alyssa Means Jan 27, 2018 09:42
[2018-01-27 20:00] VITALS: BP 129/82; PULSE 83; RESP 20; TEMP 97.3; O2SAT 93
[2018-01-27] MEDS: MIRTAZAPINE 15 MG TAB PO SCH (21:46)
[2018-01-28] MEDS: LEVOTHYROXINE SODIUM 25 MCG TAB PO SCH (06:14)
[2018-01-28 08:00] VITALS: BP 139/84; PULSE 79; RESP 18; TEMP 97.4; O2SAT 94
[2018-01-28] MEDS: QUEtiapine FUMARATE 100 MG TAB PO SCH ×2 (08:16→21:18)
[2018-01-28] MEDS: FLUoxetine HCL 20 MG CAP PO SCH (08:16)
[2018-01-28] MEDS: MULTIVITAMIN TAB PO SCH (08:16)
[2018-01-28] MEDS: VALPROIC ACID 250 MG CAP PO SCH ×2 (08:17→21:18)
[2018-01-28] MEDS: ERGOCALCIFEROL (VIT D2) 50,000 UNIT CAP PO SCH (08:37)
[2018-01-28] MEDS: LISINOPRIL 5 MG TAB PO SCH (08:38)
--- NOTE | 2018-01-28 11:51 | HHI.PR ---
Subjective Remarks Follow-up unsafe discharge due to cognition. Patient seen and examined, lying in bed sleeping, awakens to voice. Walking the halls later this morning no apparent distress. No change in clinical conditions. Vital signs are stable. Eating well. Objective Vitals Vital Signs Date Time Temp Pulse Resp B/P (MAP) Pulse Ox O2 Delivery O2 Flow Rate FiO2 01/28/18 08:00 97.4 79 18 139/84 (102) 94 01/27/18 20:00 97.3 83 20 129/82 (98) 93 I/O 01/27/18 01/27/18 01/27/18 01/28/18 01/28/18 01/28/18 07:00 15:00 23:00 07:00 15:00 23:00 Intake Total 240 ml 600 ml 120 ml Balance 240 ml 600 ml 120 ml Intake Oral 240 ml 600 ml 120 ml # Voids 1 2 2 # Bowel Movements 0 0 2 Imaging Last Impressions Clavicle X-Ray 12/16/17 0000 Signed Impressions: Service Date/Time: December 19:51 - CONCLUSION: Distal clavicle is fractured but this appears nonacute. No acute fracture demonstrated. Jovany Hayes MD Thoracic Spine MRI 12/01/17 0000 Signed Impressions: Service Date/Time: Friday, December 01, 2017 15:10 - CONCLUSION: Negative for acute process. Vimal Taylor MD FACR Lumbar Spine MRI 12/01/17 0000 Signed Impressions: Service Date/Time: Friday, December 01, 2017 15:10 - CONCLUSION: Negative MRI of the lumbar spine. Vimal Taylor MD FACR Carotid Artery Ultrasound 11/30/17 0000 Signed Impressions: Service Date/Time: Thursday, November 30, 2017 14:34 - CONCLUSION: 1. Mild plaque with no hemodynamically significant stenosis. Vertebral artery flow antegrade. Fadi Carolina MD Cervical Spine MRI 11/28/17 0000 Signed Impressions: Service Date/Time: Tuesday, November 28, 2017 15:10 - CONCLUSION: 1. Multilevel posterior disc osteophyte complexes as described above. 2. Anterior fusion C6- 7. Dylon Haddad MD Knee X-Ray 11/02/17 0000 Signed Impressions: Service Date/Time: Thursday, November 02, 2017 18:51 - CONCLUSION: Intact right knee. Jovany Hayes MD Head CT 11/02/17 0000 Signed Impressions: Service Date/Time: Thursday, November 02, 2017 18:35 - CONCLUSION: 1. No bleed or other acute intracranial abnormality. 2. Previously seen intracranial hemorrhage has resolved. A small area of chronic encephalomalacia has developed of the right frontal lobe. 3. Chronic periventricular white matter changes are again noted. Jovany Hayes MD Breast Ultrasound 10/15/17 0000 Signed Impressions: Service Date/Time: Sunday, October 15, 2017 09:06 - CONCLUSION: Persistent subcutaneous collection at the 12:00 position of the right breast. It has slightly decreased in size since the study dated 09/23/2017 and could represent an infectious process. Consider followup to confirm resolution. Jovany Quezada MD Chest X-Ray 09/03/17 0000 Signed Impressions: Service Date/Time: Sunday, September 03, 2017 17:02 - CONCLUSION: 1. Mild edema pattern. Subsegmental basilar airspace disease most characteristic of atelectasis.. Fadi Carolina MD Cervical Spine CT 09/02/17 0000 Signed Impressions: Service Date/Time: August 12:56 - CONCLUSION: Postsurgical changes from anterior cervical plate at C6-7. No evidence of compression deformity or spondylolisthesis. Arun Regan MD Pelvis X-Ray 06/30/17 0000 Signed Impressions: Service Date/Time: Friday, June 30, 2017 12:17 - CONCLUSION: No significant change has occurred. Carlos Capps MD Objective Remarks GENERAL: Well-nourished, well-developed female in NAD. SKIN: Warm and dry. No rash. HEENT: Normocephalic. Atraumatic. Pupils equal and round. No scleral icterus. No injection or drainage. No nasal bleeding or discharge. Mucous membranes pink and moist. NECK: Supple. Trachea midline. CARDIOVASCULAR: Regular rate and rhythm. S1, S2 noted. No murmur appreciated. RESPIRATORY: No accessory muscle use. Clear to auscultation. Breath sounds equal bilaterally. GASTROINTESTINAL: Abdomen soft, non-tender, nondistended. Normoactive bowel sounds x4. No guarding noted. MUSCULOSKELETAL: No obvious deformities. Extremities without clubbing, cyanosis , or edema. NEUROLOGICAL: Awake and alert. No obvious cranial nerve deficits. Motor grossly within normal limits. 5/5 muscle strength in bilateral upper and lower extremities. Normal speech. PSYCHIATRIC: Appropriate mood and affect. A/P Problem List: (1) Alcohol dependence in controlled environment ICD Code: F10.20 - Alcohol dependence, uncomplicated Status: Chronic (2) Facial injury ICD Code: S09.93XA - Unspecified injury of face, initial encounter Status: Acute (3) Fall ICD Code: W19.XXXA - Unspecified fall, initial encounter Status: Acute (4) Hypertension ICD Code: I10 - Essential (primary) hypertension Status: Acute (5) Pelvic fracture ICD Code: S32.9XXA - Fracture of unspecified parts of lumbosacral spine and pelvis, initial encounter for closed fracture Status: Acute (6) C1-C2 subluxation ICD Code: S13.120A - Subluxation of C1/C2 cervical vertebrae, initial encounter Status: Acute (7) C6 cervical fracture ICD Code: S12.500A - Unspecified displaced fracture of sixth cervical vertebra , initial encounter for closed fracture Status: Acute (8) Traumatic brain injury ICD Code: S06.9X9A - Unspecified intracranial injury with loss of consciousness of unspecified duration, initial encounter Status: Acute (9) Nasal fracture ICD Code: S02.2XXA - Fracture of nasal bones, initial encounter for closed fracture Status: Acute (10) Mild neurocognitive disorder ICD Code: G31.84 - Mild cognitive impairment, so stated Status: Acute (11) Intracranial bleed ICD Code: I62.9 - Nontraumatic intracranial hemorrhage, unspecified Status: Acute Assessment and Plan Inability to care for self, unsafe discharge due to cognition PT and OT recommending supervision at home for safety. Speech therapy following the patient intermittently for cognitive evaluations. 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 Mini mental state 28/30, recommended avoid antipsychotics and benzodiazepine. Recommending Depakote or carbamazepine. Patient is medically stable for discharge, however due to underlying psychiatric/cognition patient is unsafe discharge until arrangements made by case management. Case management for discharge planning. Neuropsychiatry evaluated the patient recommended patient may improve with treatment, however indicates avoid benzodiazepines and antipsychotics Continue Prozac 40 mg daily Depakene 500 mg twice daily Seroquel 100 mg twice daily *Psychiatry indicated that the patient lacks capacity for signing AMA or to participate in discharge plan. He is recommending that he would invite the ethics committee to the hospital to have a discussion about patient care *Consulted case management for ethics committee review, awaiting response Recurrent falls. Resolved. Patient moved close to nursing station. Patient denies any neurological symptoms of weakness, paresthesia, loss of bowel or bladder control Orthostatic vitals do show drop in systolic blood pressure when standing. Improved after hydration. MRI of the neck. Multilevel degenerative changes. Mild degree of canal stenosis C5-C6, anterior fusion C6-C7 MRI of thoracic and lumbar spine do not indicate any acute abnormality Carotid ultrasound was unremarkable. Echocardiogram indicate ejection fraction 50-55% without any abnormalities Physical therapy ordered for 5 days a week Mild malnutrition, secondary to poor by mouth intake. Resolved. Albumin 2.8. Prealbumin 19. After review of weight trend, has been gaining weight. Continue Remeron. Dietary consulted who recommended ensure with breakfast lunch and there. May have muffin at bedtime, daily vitamin. Multiple traumatic injuries Patient laceration, subdural hemorrhage, ventricular hemorrhage, nasal fracture, C6 fracture, C1-C2 subluxation, C4 transverse process fracture, right rib fracture, L1 transverse process fracture, right pubic rami fracture Continue c-collar this time, however patient does not wear Follow-up cervical spine CT indicates no evidence of acute fracture. Postsurgical changes Specialist no longer following patient, patient will require outpatient follow-up if discharge Right breast abscess, Improved. Physical exam shows improvement. Ultrasound does show complex loculated collection measuring 2.4 x 1.7 x 1.8 cm. Representing breast abscess Status post Augmentin 500 mg twice daily for 10 days (end date 10/25/17). Finished Bactrim DS for 18 days Gen. surgery consulted who recommends no intervention at this time. Soft tissue ultrasound shows a improvement of the fluid collection. Outpatient mammogram performed today, 01/25/18. Benign findings, recommendations for follow-up breast ultrasound in 3 months. Hypothyroidism TSH 3.73 Free T4 0.57, free T3 1 0.47 Levothyroxine 25 g daily Monitor TSH every 6-8 weeks. TSH last checked 3.73 on January 21. Continue current treatment. Hypertension Amlodipine 10 mg daily DVT prevention Patient ambulating Sequential compression devices while in bed Records were reviewed. Awaiting case management for discharge planning, No change in current treatment plan. Discharge Planning Due to underlying psychiatric/cognition patient is unsafe discharge until arrangements made by case management. Problem Qualifiers (1) Hypertension: Qualified Codes: I10 - Essential (primary) hypertension Alyssa Means Jan 28, 2018 11:51
[2018-01-28] MEDS: ACETAMINOPHEN 325 MG TAB PO PRN ×2 (13:30→22:44)
[2018-01-28] MEDS: MIRTAZAPINE 15 MG TAB PO SCH (21:18)
[2018-01-28 21:55] VITALS: BP 134/84; PULSE 84; RESP 18; TEMP 98; O2SAT 93
[2018-01-29 01:02] VITALS: BP 134/84; PULSE 84; RESP 18; TEMP 98; O2SAT 93
[2018-01-29] MEDS: LEVOTHYROXINE SODIUM 25 MCG TAB PO SCH (06:57)
[2018-01-29 08:00] VITALS: BP 131/79; PULSE 72; RESP 16; TEMP 96.6; O2SAT 95
[2018-01-29] MEDS: FLUoxetine HCL 20 MG CAP PO SCH (08:44)
[2018-01-29] MEDS: QUEtiapine FUMARATE 100 MG TAB PO SCH ×2 (08:45→21:13)
[2018-01-29] MEDS: MULTIVITAMIN TAB PO SCH (08:45)
[2018-01-29] MEDS: LISINOPRIL 5 MG TAB PO SCH (08:45)
[2018-01-29] MEDS: VALPROIC ACID 250 MG CAP PO SCH ×2 (08:51→21:13)
--- NOTE | 2018-01-29 10:02 | HHI.PR ---
Subjective Remarks Follow-up unsafe discharge due to cognition. Patient seen and examined, lying in bed comfortably in no apparent distress. Denies any no acute complaints. No change in clinical condition. Vital signs are stable. Objective Vitals Vital Signs Date Time Temp Pulse Resp B/P (MAP) Pulse Ox O2 Delivery O2 Flow Rate FiO2 01/29/18 08:00 96.6 72 16 131/79 (96) 95 01/29/18 04:13 01/29/18 01:02 98.0 84 18 134/84 (101) 93 01/28/18 21:55 98.0 84 18 134/84 (101) 93 I/O 01/28/18 01/28/18 01/28/18 01/29/18 01/29/18 01/29/18 07:00 15:00 23:00 07:00 15:00 23:00 Intake Total 120 ml 600 ml 240 ml Balance 120 ml 600 ml 240 ml Intake Oral 120 ml 600 ml 240 ml # Voids 2 3 3 # Bowel Movements 2 1 Imaging Last Impressions Clavicle X-Ray 12/16/17 0000 Signed Impressions: Service Date/Time: December 19:51 - CONCLUSION: Distal clavicle is fractured but this appears nonacute. No acute fracture demonstrated. Jovany Hayes MD Thoracic Spine MRI 12/01/17 0000 Signed Impressions: Service Date/Time: Friday, December 01, 2017 15:10 - CONCLUSION: Negative for acute process. Vimal Taylor MD FACR Lumbar Spine MRI 12/01/17 0000 Signed Impressions: Service Date/Time: Friday, December 01, 2017 15:10 - CONCLUSION: Negative MRI of the lumbar spine. Vimal Taylor MD FACR Carotid Artery Ultrasound 11/30/17 0000 Signed Impressions: Service Date/Time: Thursday, November 30, 2017 14:34 - CONCLUSION: 1. Mild plaque with no hemodynamically significant stenosis. Vertebral artery flow antegrade. Fadi Carolina MD Cervical Spine MRI 11/28/17 0000 Signed Impressions: Service Date/Time: Tuesday, November 28, 2017 15:10 - CONCLUSION: 1. Multilevel posterior disc osteophyte complexes as described above. 2. Anterior fusion C6- 7. Dylon Haddad MD Knee X-Ray 11/02/17 0000 Signed Impressions: Service Date/Time: Thursday, November 02, 2017 18:51 - CONCLUSION: Intact right knee. Jovany Hayes MD Head CT 11/02/17 0000 Signed Impressions: Service Date/Time: Thursday, November 02, 2017 18:35 - CONCLUSION: 1. No bleed or other acute intracranial abnormality. 2. Previously seen intracranial hemorrhage has resolved. A small area of chronic encephalomalacia has developed of the right frontal lobe. 3. Chronic periventricular white matter changes are again noted. Jovany Hayes MD Breast Ultrasound 10/15/17 0000 Signed Impressions: Service Date/Time: Sunday, October 15, 2017 09:06 - CONCLUSION: Persistent subcutaneous collection at the 12:00 position of the right breast. It has slightly decreased in size since the study dated 09/23/2017 and could represent an infectious process. Consider followup to confirm resolution. Jovany Quezada MD Chest X-Ray 09/03/17 0000 Signed Impressions: Service Date/Time: Sunday, September 03, 2017 17:02 - CONCLUSION: 1. Mild edema pattern. Subsegmental basilar airspace disease most characteristic of atelectasis.. Fadi Carolina MD Cervical Spine CT 09/02/17 0000 Signed Impressions: Service Date/Time: August 12:56 - CONCLUSION: Postsurgical changes from anterior cervical plate at C6-7. No evidence of compression deformity or spondylolisthesis. Arun Regan MD Pelvis X-Ray 06/30/17 0000 Signed Impressions: Service Date/Time: Friday, June 30, 2017 12:17 - CONCLUSION: No significant change has occurred. Carlos Capps MD Objective Remarks GENERAL: Well-nourished, well-developed female in NAD. SKIN: Warm and dry. No rash. HEENT: Normocephalic. Atraumatic. Pupils equal and round. No scleral icterus. No injection or drainage. No nasal bleeding or discharge. Mucous membranes pink and moist. NECK: Supple. Trachea midline. CARDIOVASCULAR: Regular rate and rhythm. S1, S2 noted. No murmur appreciated. RESPIRATORY: No accessory muscle use. Clear to auscultation. Breath sounds equal bilaterally. GASTROINTESTINAL: Abdomen soft, non-tender, nondistended. Normoactive bowel sounds x4. No guarding noted. MUSCULOSKELETAL: No obvious deformities. Extremities without clubbing, cyanosis , or edema. NEUROLOGICAL: Awake and alert. No obvious cranial nerve deficits. Motor grossly within normal limits. 5/5 muscle strength in bilateral upper and lower extremities. Normal speech. PSYCHIATRIC: Appropriate mood and affect. A/P Problem List: (1) Alcohol dependence in controlled environment ICD Code: F10.20 - Alcohol dependence, uncomplicated Status: Chronic (2) Facial injury ICD Code: S09.93XA - Unspecified injury of face, initial encounter Status: Acute (3) Fall ICD Code: W19.XXXA - Unspecified fall, initial encounter Status: Acute (4) Hypertension ICD Code: I10 - Essential (primary) hypertension Status: Acute (5) Pelvic fracture ICD Code: S32.9XXA - Fracture of unspecified parts of lumbosacral spine and pelvis, initial encounter for closed fracture Status: Acute (6) C1-C2 subluxation ICD Code: S13.120A - Subluxation of C1/C2 cervical vertebrae, initial encounter Status: Acute (7) C6 cervical fracture ICD Code: S12.500A - Unspecified displaced fracture of sixth cervical vertebra , initial encounter for closed fracture Status: Acute (8) Traumatic brain injury ICD Code: S06.9X9A - Unspecified intracranial injury with loss of consciousness of unspecified duration, initial encounter Status: Acute (9) Nasal fracture ICD Code: S02.2XXA - Fracture of nasal bones, initial encounter for closed fracture Status: Acute (10) Mild neurocognitive disorder ICD Code: G31.84 - Mild cognitive impairment, so stated Status: Acute (11) Intracranial bleed ICD Code: I62.9 - Nontraumatic intracranial hemorrhage, unspecified Status: Acute Assessment and Plan Inability to care for self, unsafe discharge due to cognition PT and OT recommending supervision at home for safety. Speech therapy following the patient intermittently for cognitive evaluations. 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 Mini mental state 28/30, recommended avoid antipsychotics and benzodiazepine. Recommending Depakote or carbamazepine. Patient is medically stable for discharge, however due to underlying psychiatric/cognition patient is unsafe discharge until arrangements made by case management. Case management for discharge planning. Neuropsychiatry evaluated the patient recommended patient may improve with treatment, however indicates avoid benzodiazepines and antipsychotics Continue Prozac 40 mg daily Depakene 500 mg twice daily Seroquel 100 mg twice daily *Psychiatry indicated that the patient lacks capacity for signing AMA or to participate in discharge plan. He is recommending that he would invite the ethics committee to the hospital to have a discussion about patient care *Consulted case management for ethics committee review, awaiting response Recurrent falls. Resolved. Patient moved close to nursing station. Patient denies any neurological symptoms of weakness, paresthesia, loss of bowel or bladder control Orthostatic vitals do show drop in systolic blood pressure when standing. Improved after hydration. MRI of the neck. Multilevel degenerative changes. Mild degree of canal stenosis C5-C6, anterior fusion C6-C7 MRI of thoracic and lumbar spine do not indicate any acute abnormality Carotid ultrasound was unremarkable. Echocardiogram indicate ejection fraction 50-55% without any abnormalities Physical therapy ordered for 5 days a week Mild malnutrition, secondary to poor by mouth intake. Resolved. Albumin 2.8. Prealbumin 19. After review of weight trend, has been gaining weight. Continue Remeron. Dietary consulted who recommended ensure with breakfast lunch and there. May have muffin at bedtime, daily vitamin. Multiple traumatic injuries Patient laceration, subdural hemorrhage, ventricular hemorrhage, nasal fracture, C6 fracture, C1-C2 subluxation, C4 transverse process fracture, right rib fracture, L1 transverse process fracture, right pubic rami fracture Continue c-collar this time, however patient does not wear Follow-up cervical spine CT 1026/17 indicates no evidence of acute fracture. Postsurgical changes Specialist no longer following patient, patient will require outpatient follow-up if discharge Right breast abscess, Improved. Physical exam shows improvement. Ultrasound does show complex loculated collection measuring 2.4 x 1.7 x 1.8 cm. Representing breast abscess Status post Augmentin 500 mg twice daily for 10 days (end date 10/25/17). Finished Bactrim DS for 18 days Gen. surgery consulted who recommends no intervention at this time. Soft tissue ultrasound shows a improvement of the fluid collection. Outpatient mammogram performed today, 01/25/18. Benign findings, recommendations for follow-up breast ultrasound in 3 months. Hypothyroidism TSH 3.73 Free T4 0.57, free T3 1 0.47 Levothyroxine 25 g daily Monitor TSH every 6-8 weeks. TSH last checked 3.73 on January 21. Continue current treatment. Hypertension Amlodipine 10 mg daily DVT prevention Patient ambulating Sequential compression devices while in bed Records were reviewed. Awaiting case management for discharge planning, No change in current treatment plan. Discharge Planning Due to underlying psychiatric/cognition patient is unsafe discharge until arrangements made by case management. Problem Qualifiers (1) Hypertension: Qualified Codes: I10 - Essential (primary) hypertension Alyssa Means Jan 29, 2018 10:02
[2018-01-29] MEDS: MIRTAZAPINE 15 MG TAB PO SCH (21:12)
[2018-01-29 22:12] VITALS: BP 119/86; PULSE 78; RESP 16; TEMP 97.9; O2SAT 95
[2018-01-30] MEDS: LEVOTHYROXINE SODIUM 25 MCG TAB PO SCH (06:08)
--- NOTE | 2018-01-30 07:44 | HHI.PR ---
Subjective Remarks Follow-up unsafe discharge due to to cognition. Patient seen and examined, lying in bed comfortably in no apparent distress. Denies any reports of any acute events overnight. Denies any pain. Is eating and ambulating well. Vital signs are stable. Afebrile. Objective Vitals Vital Signs Date Time Temp Pulse Resp B/P (MAP) Pulse Ox O2 Delivery O2 Flow Rate FiO2 01/29/18 22:12 97.9 78 16 119/86 (97) 95 01/29/18 08:00 96.6 72 16 131/79 (96) 95 I/O 01/29/18 01/29/18 01/29/18 01/30/18 01/30/18 01/30/18 07:00 15:00 23:00 07:00 15:00 23:00 Intake Total 240 ml 120 ml Balance 240 ml 120 ml Intake Oral 240 ml 120 ml # Voids 3 2 # Bowel Movements 1 0 Imaging Last Impressions Clavicle X-Ray 12/16/17 0000 Signed Impressions: Service Date/Time: December 19:51 - CONCLUSION: Distal clavicle is fractured but this appears nonacute. No acute fracture demonstrated. Jovany Hayes MD Thoracic Spine MRI 12/01/17 0000 Signed Impressions: Service Date/Time: Friday, December 01, 2017 15:10 - CONCLUSION: Negative for acute process. Vimal Taylor MD FACR Lumbar Spine MRI 12/01/17 0000 Signed Impressions: Service Date/Time: Friday, December 01, 2017 15:10 - CONCLUSION: Negative MRI of the lumbar spine. Vimal Taylor MD FACR Carotid Artery Ultrasound 11/30/17 0000 Signed Impressions: Service Date/Time: Thursday, November 30, 2017 14:34 - CONCLUSION: 1. Mild plaque with no hemodynamically significant stenosis. Vertebral artery flow antegrade. Fadi Carolina MD Cervical Spine MRI 11/28/17 0000 Signed Impressions: Service Date/Time: Tuesday, November 28, 2017 15:10 - CONCLUSION: 1. Multilevel posterior disc osteophyte complexes as described above. 2. Anterior fusion C6- 7. Dylon Haddad MD Knee X-Ray 11/02/17 0000 Signed Impressions: Service Date/Time: Thursday, November 02, 2017 18:51 - CONCLUSION: Intact right knee. Jovany Hayes MD Head CT 11/02/17 0000 Signed Impressions: Service Date/Time: Thursday, November 02, 2017 18:35 - CONCLUSION: 1. No bleed or other acute intracranial abnormality. 2. Previously seen intracranial hemorrhage has resolved. A small area of chronic encephalomalacia has developed of the right frontal lobe. 3. Chronic periventricular white matter changes are again noted. Jovany Hayes MD Breast Ultrasound 10/15/17 0000 Signed Impressions: Service Date/Time: Sunday, October 15, 2017 09:06 - CONCLUSION: Persistent subcutaneous collection at the 12:00 position of the right breast. It has slightly decreased in size since the study dated 09/23/2017 and could represent an infectious process. Consider followup to confirm resolution. Jovany Quezada MD Chest X-Ray 09/03/17 0000 Signed Impressions: Service Date/Time: Sunday, September 03, 2017 17:02 - CONCLUSION: 1. Mild edema pattern. Subsegmental basilar airspace disease most characteristic of atelectasis.. Fadi Carolina MD Cervical Spine CT 09/02/17 0000 Signed Impressions: Service Date/Time: August 12:56 - CONCLUSION: Postsurgical changes from anterior cervical plate at C6-7. No evidence of compression deformity or spondylolisthesis. Arun Regan MD Pelvis X-Ray 06/30/17 0000 Signed Impressions: Service Date/Time: Friday, June 30, 2017 12:17 - CONCLUSION: No significant change has occurred. Carlos Capps MD Objective Remarks GENERAL: Well-nourished, well-developed female in NAD. SKIN: Warm and dry. No rash. HEENT: Normocephalic. Atraumatic. Pupils equal and round. No scleral icterus. No injection or drainage. No nasal bleeding or discharge. Mucous membranes pink and moist. NECK: Supple. Trachea midline. CARDIOVASCULAR: Regular rate and rhythm. S1, S2 noted. No murmur appreciated. RESPIRATORY: No accessory muscle use. Clear to auscultation. Breath sounds equal bilaterally. GASTROINTESTINAL: Abdomen soft, non-tender, nondistended. Normoactive bowel sounds x4. No guarding noted. MUSCULOSKELETAL: No obvious deformities. Extremities without clubbing, cyanosis , or edema. NEUROLOGICAL: Awake and alert. No obvious cranial nerve deficits. Motor grossly within normal limits. 5/5 muscle strength in bilateral upper and lower extremities. Normal speech. PSYCHIATRIC: Appropriate mood and affect. A/P Problem List: (1) Alcohol dependence in controlled environment ICD Code: F10.20 - Alcohol dependence, uncomplicated Status: Chronic (2) Facial injury ICD Code: S09.93XA - Unspecified injury of face, initial encounter Status: Acute (3) Fall ICD Code: W19.XXXA - Unspecified fall, initial encounter Status: Acute (4) Hypertension ICD Code: I10 - Essential (primary) hypertension Status: Acute (5) Pelvic fracture ICD Code: S32.9XXA - Fracture of unspecified parts of lumbosacral spine and pelvis, initial encounter for closed fracture Status: Acute (6) C1-C2 subluxation ICD Code: S13.120A - Subluxation of C1/C2 cervical vertebrae, initial encounter Status: Acute (7) C6 cervical fracture ICD Code: S12.500A - Unspecified displaced fracture of sixth cervical vertebra , initial encounter for closed fracture Status: Acute (8) Traumatic brain injury ICD Code: S06.9X9A - Unspecified intracranial injury with loss of consciousness of unspecified duration, initial encounter Status: Acute (9) Nasal fracture ICD Code: S02.2XXA - Fracture of nasal bones, initial encounter for closed fracture Status: Acute (10) Mild neurocognitive disorder ICD Code: G31.84 - Mild cognitive impairment, so stated Status: Acute (11) Intracranial bleed ICD Code: I62.9 - Nontraumatic intracranial hemorrhage, unspecified Status: Acute Assessment and Plan Inability to care for self, unsafe discharge due to cognition PT and OT recommending supervision at home for safety. Speech therapy following the patient intermittently for cognitive evaluations. 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 Mini mental state 28/30, recommended avoid antipsychotics and benzodiazepine. Recommending Depakote or carbamazepine. Patient is medically stable for discharge, however due to underlying psychiatric/cognition patient is unsafe discharge until arrangements made by case management. Case management for discharge planning. Neuropsychiatry evaluated the patient recommended patient may improve with treatment, however indicates avoid benzodiazepines and antipsychotics Continue Prozac 40 mg daily Depakene 500 mg twice daily Seroquel 100 mg twice daily *Psychiatry indicated that the patient lacks capacity for signing AMA or to participate in discharge plan. He is recommending that he would invite the ethics committee to the hospital to have a discussion about patient care *Consulted case management for ethics committee review, awaiting response Recurrent falls. Resolved. Patient moved close to nursing station. Patient denies any neurological symptoms of weakness, paresthesia, loss of bowel or bladder control Orthostatic vitals do show drop in systolic blood pressure when standing. Improved after hydration. MRI of the neck. Multilevel degenerative changes. Mild degree of canal stenosis C5-C6, anterior fusion C6-C7 MRI of thoracic and lumbar spine do not indicate any acute abnormality Carotid ultrasound was unremarkable. Echocardiogram indicate ejection fraction 50-55% without any abnormalities Physical therapy ordered for 5 days a week Mild malnutrition, secondary to poor by mouth intake. Resolved. Albumin 2.8. Prealbumin 19. After review of weight trend, has been gaining weight. Continue Remeron. Dietary consulted who recommended ensure with breakfast lunch and there. May have muffin at bedtime, daily vitamin. Multiple traumatic injuries Patient laceration, subdural hemorrhage, ventricular hemorrhage, nasal fracture, C6 fracture, C1-C2 subluxation, C4 transverse process fracture, right rib fracture, L1 transverse process fracture, right pubic rami fracture Continue c-collar this time, however patient does not wear Follow-up cervical spine CT indicates no evidence of acute fracture. Postsurgical changes Specialist no longer following patient, patient will require outpatient follow-up if discharge Right breast abscess, Improved. Physical exam shows improvement. Ultrasound does show complex loculated collection measuring 2.4 x 1.7 x 1.8 cm. Representing breast abscess Status post Augmentin 500 mg twice daily for 10 days (end date 10/25/17). Finished Bactrim DS for 18 days Gen. surgery consulted who recommends no intervention at this time. Soft tissue ultrasound shows a improvement of the fluid collection. Outpatient mammogram performed today, 01/25/18. Benign findings, recommendations for follow-up breast ultrasound in 3 months. Hypothyroidism TSH 3.73 Free T4 0.57, free T3 1 0.47 Levothyroxine 25 g daily Monitor TSH every 6-8 weeks. TSH last checked 3.73 on January 21. Continue current treatment. Hypertension Amlodipine 10 mg daily DVT prevention Patient ambulating Sequential compression devices while in bed Records were reviewed. Awaiting case management for discharge planning, No change in current treatment plan. Discharge Planning Due to underlying psychiatric/cognition patient is unsafe discharge until arrangements made by case management. Problem Qualifiers (1) Hypertension: Qualified Codes: I10 - Essential (primary) hypertension Alyssa Means Jan 30, 2018 07:44
[2018-01-30] MEDS: QUEtiapine FUMARATE 100 MG TAB PO SCH ×2 (07:58→20:51)
[2018-01-30] MEDS: FLUoxetine HCL 20 MG CAP PO SCH (07:58)
[2018-01-30] MEDS: VALPROIC ACID 250 MG CAP PO SCH ×2 (07:59→20:51)
[2018-01-30 08:00] VITALS: BP 122/86; PULSE 66; RESP 20; TEMP 96.9; O2SAT 93
[2018-01-30] MEDS: LISINOPRIL 5 MG TAB PO SCH (08:02)
[2018-01-30] MEDS: MULTIVITAMIN TAB PO SCH (08:02)
[2018-01-30 20:00] VITALS: BP 122/89; PULSE 83; RESP 21; TEMP 97.5; O2SAT 94
[2018-01-30] MEDS: MIRTAZAPINE 15 MG TAB PO SCH (20:51)
[2018-01-30] MEDS: ACETAMINOPHEN 325 MG TAB PO PRN (20:52)
[2018-01-31] VITALS: BP 118/80; PULSE 81; RESP 17; TEMP 97.7; O2SAT 95
[2018-01-31] MEDS: LEVOTHYROXINE SODIUM 25 MCG TAB PO SCH (06:37)
[2018-01-31] MEDS: ACETAMINOPHEN 325 MG TAB PO PRN ×2 (06:37→21:56)
[2018-01-31 08:00] VITALS: BP 136/81; PULSE 70; RESP 17; TEMP 96.5; O2SAT 92
[2018-01-31] MEDS: QUEtiapine FUMARATE 100 MG TAB PO SCH ×2 (08:34→21:55)
[2018-01-31] MEDS: MULTIVITAMIN TAB PO SCH (08:35)
[2018-01-31] MEDS: LISINOPRIL 5 MG TAB PO SCH (08:35)
[2018-01-31] MEDS: FLUoxetine HCL 20 MG CAP PO SCH (08:36)
[2018-01-31] MEDS: VALPROIC ACID 250 MG CAP PO SCH ×2 (08:36→21:55)
--- NOTE | 2018-01-31 09:12 | HHI.PR ---
Subjective Remarks Follow-up unsafe discharge due to cognition. Patient seen and examined, sitting up in bed eating breakfast comfortably. Denies any new acute events overnight. Denies any pain. Ambulating well. No change in clinical condition. Vital signs stable. Afebrile. Objective Vitals Vital Signs Date Time Temp Pulse Resp B/P (MAP) Pulse Ox O2 Delivery O2 Flow Rate FiO2 01/31/18 08:00 96.5 70 17 136/81 (99) 92 01/31/18 00:00 97.7 81 17 118/80 (93) 95 01/30/18 20:00 97.5 83 21 122/89 (100) 94 I/O 01/30/18 01/30/18 01/30/18 01/31/18 01/31/18 01/31/18 07:00 15:00 23:00 07:00 15:00 23:00 Intake Total 1200 ml 240 ml Balance 1200 ml 240 ml Intake Oral 1200 ml 240 ml # Voids 2 3 1 # Bowel Movements 0 1 Imaging Last Impressions Clavicle X-Ray 12/16/17 0000 Signed Impressions: Service Date/Time: December 19:51 - CONCLUSION: Distal clavicle is fractured but this appears nonacute. No acute fracture demonstrated. Jovany Hayes MD Thoracic Spine MRI 12/01/17 0000 Signed Impressions: Service Date/Time: Friday, December 01, 2017 15:10 - CONCLUSION: Negative for acute process. Vimal Taylor MD FACR Lumbar Spine MRI 12/01/17 0000 Signed Impressions: Service Date/Time: Friday, December 01, 2017 15:10 - CONCLUSION: Negative MRI of the lumbar spine. Vimal Taylor MD FACR Carotid Artery Ultrasound 11/30/17 0000 Signed Impressions: Service Date/Time: Thursday, November 30, 2017 14:34 - CONCLUSION: 1. Mild plaque with no hemodynamically significant stenosis. Vertebral artery flow antegrade. Fadi Carolina MD Cervical Spine MRI 11/28/17 0000 Signed Impressions: Service Date/Time: Tuesday, November 28, 2017 15:10 - CONCLUSION: 1. Multilevel posterior disc osteophyte complexes as described above. 2. Anterior fusion C6- 7. Dylon Haddad MD Knee X-Ray 11/02/17 0000 Signed Impressions: Service Date/Time: Thursday, November 02, 2017 18:51 - CONCLUSION: Intact right knee. Jovany Hayes MD Head CT 11/02/17 0000 Signed Impressions: Service Date/Time: Thursday, November 02, 2017 18:35 - CONCLUSION: 1. No bleed or other acute intracranial abnormality. 2. Previously seen intracranial hemorrhage has resolved. A small area of chronic encephalomalacia has developed of the right frontal lobe. 3. Chronic periventricular white matter changes are again noted. Jovany Hayes MD Breast Ultrasound 10/15/17 0000 Signed Impressions: Service Date/Time: Sunday, October 15, 2017 09:06 - CONCLUSION: Persistent subcutaneous collection at the 12:00 position of the right breast. It has slightly decreased in size since the study dated 09/23/2017 and could represent an infectious process. Consider followup to confirm resolution. Jovany Quezada MD Chest X-Ray 09/03/17 0000 Signed Impressions: Service Date/Time: Sunday, September 03, 2017 17:02 - CONCLUSION: 1. Mild edema pattern. Subsegmental basilar airspace disease most characteristic of atelectasis.. Fadi Carolina MD Cervical Spine CT 09/02/17 0000 Signed Impressions: Service Date/Time: August 12:56 - CONCLUSION: Postsurgical changes from anterior cervical plate at C6-7. No evidence of compression deformity or spondylolisthesis. Arun Regan MD Pelvis X-Ray 06/30/17 0000 Signed Impressions: Service Date/Time: Friday, June 30, 2017 12:17 - CONCLUSION: No significant change has occurred. Carlos Capps MD Objective Remarks GENERAL: Well-nourished, well-developed female in NAD. SKIN: Warm and dry. No rash. HEENT: Normocephalic. Atraumatic. Pupils equal and round. No scleral icterus. No injection or drainage. No nasal bleeding or discharge. Mucous membranes pink and moist. NECK: Supple. Trachea midline. CARDIOVASCULAR: Regular rate and rhythm. S1, S2 noted. No murmur appreciated. RESPIRATORY: No accessory muscle use. Clear to auscultation. Breath sounds equal bilaterally. GASTROINTESTINAL: Abdomen soft, non-tender, nondistended. Normoactive bowel sounds x4. No guarding noted. MUSCULOSKELETAL: No obvious deformities. Extremities without clubbing, cyanosis , or edema. NEUROLOGICAL: Awake and alert. No obvious cranial nerve deficits. Motor grossly within normal limits. 5/5 muscle strength in bilateral upper and lower extremities. Normal speech. PSYCHIATRIC: Appropriate mood and affect. A/P Problem List: (1) Alcohol dependence in controlled environment ICD Code: F10.20 - Alcohol dependence, uncomplicated Status: Chronic (2) Facial injury ICD Code: S09.93XA - Unspecified injury of face, initial encounter Status: Acute (3) Fall ICD Code: W19.XXXA - Unspecified fall, initial encounter Status: Acute (4) Hypertension ICD Code: I10 - Essential (primary) hypertension Status: Acute (5) Pelvic fracture ICD Code: S32.9XXA - Fracture of unspecified parts of lumbosacral spine and pelvis, initial encounter for closed fracture Status: Acute (6) C1-C2 subluxation ICD Code: S13.120A - Subluxation of C1/C2 cervical vertebrae, initial encounter Status: Acute (7) C6 cervical fracture ICD Code: S12.500A - Unspecified displaced fracture of sixth cervical vertebra , initial encounter for closed fracture Status: Acute (8) Traumatic brain injury ICD Code: S06.9X9A - Unspecified intracranial injury with loss of consciousness of unspecified duration, initial encounter Status: Acute (9) Nasal fracture ICD Code: S02.2XXA - Fracture of nasal bones, initial encounter for closed fracture Status: Acute (10) Mild neurocognitive disorder ICD Code: G31.84 - Mild cognitive impairment, so stated Status: Acute (11) Intracranial bleed ICD Code: I62.9 - Nontraumatic intracranial hemorrhage, unspecified Status: Acute Assessment and Plan Inability to care for self, unsafe discharge due to cognition PT and OT recommending supervision at home for safety. Speech therapy following the patient intermittently for cognitive evaluations. 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 Mini mental state 28/30, recommended avoid antipsychotics and benzodiazepine. Recommending Depakote or carbamazepine. Patient is medically stable for discharge, however due to underlying psychiatric/cognition patient is unsafe discharge until arrangements made by case management. Case management for discharge planning. Neuropsychiatry evaluated the patient recommended patient may improve with treatment, however indicates avoid benzodiazepines and antipsychotics Continue Prozac 40 mg daily Depakene 500 mg twice daily Seroquel 100 mg twice daily *Psychiatry indicated that the patient lacks capacity for signing AMA or to participate in discharge plan. He is recommending that he would invite the ethics committee to the hospital to have a discussion about patient care *Consulted case management for ethics committee review, awaiting response Recurrent falls. Resolved. Patient moved close to nursing station. Patient denies any neurological symptoms of weakness, paresthesia, loss of bowel or bladder control Orthostatic vitals do show drop in systolic blood pressure when standing. Improved after hydration. MRI of the neck. Multilevel degenerative changes. Mild degree of canal stenosis C5-C6, anterior fusion C6-C7 MRI of thoracic and lumbar spine do not indicate any acute abnormality Carotid ultrasound was unremarkable. Echocardiogram indicate ejection fraction 50-55% without any abnormalities Physical therapy ordered for 5 days a week Mild malnutrition, secondary to poor by mouth intake. Resolved. Albumin 2.8. Prealbumin 19. After review of weight trend, has been gaining weight. Continue Remeron. Dietary consulted who recommended ensure with breakfast lunch and there. May have muffin at bedtime, daily vitamin. Multiple traumatic injuries Patient laceration, subdural hemorrhage, ventricular hemorrhage, nasal fracture, C6 fracture, C1-C2 subluxation, C4 transverse process fracture, right rib fracture, L1 transverse process fracture, right pubic rami fracture Continue c-collar this time, however patient does not wear Follow-up cervical spine CT 1026/17 indicates no evidence of acute fracture. Postsurgical changes Specialist no longer following patient, patient will require outpatient follow-up if discharge Right breast abscess, Improved. Physical exam shows improvement. Ultrasound does show complex loculated collection measuring 2.4 x 1.7 x 1.8 cm. Representing breast abscess Status post Augmentin 500 mg twice daily for 10 days (end date 10/25/17). Finished Bactrim DS for 18 days Gen. surgery consulted who recommends no intervention at this time. Soft tissue ultrasound shows a improvement of the fluid collection. Outpatient mammogram performed today, 01/25/18. Benign findings, recommendations for follow-up breast ultrasound in 3 months. Hypothyroidism TSH 3.73 Free T4 0.57, free T3 1 0.47 Levothyroxine 25 g daily Monitor TSH every 6-8 weeks. TSH last checked 3.73 on March 16. Continue current treatment. Hypertension Amlodipine 10 mg daily DVT prevention Patient ambulating Sequential compression devices while in bed Records were reviewed. Awaiting case management for discharge planning, No change in current treatment plan. Discharge Planning Due to underlying psychiatric/cognition patient is unsafe discharge until arrangements made by case management. Problem Qualifiers (1) Hypertension: Qualified Codes: I10 - Essential (primary) hypertension Alyssa Means Jan 31, 2018 09:12
[2018-01-31 20:00] VITALS: BP 118/85; PULSE 76; RESP 20; TEMP 97.5; O2SAT 91
[2018-01-31] MEDS: MIRTAZAPINE 15 MG TAB PO SCH (21:56)
[2018-02-01] VITALS: BP 133/78; PULSE 75; RESP 20; TEMP 96.3; O2SAT 95
[2018-02-01] MEDS: LEVOTHYROXINE SODIUM 25 MCG TAB PO SCH (05:41)
[2018-02-01 08:00] VITALS: BP 145/85; PULSE 64; RESP 18; TEMP 98; O2SAT 96
[2018-02-01] MEDS: LISINOPRIL 5 MG TAB PO SCH (08:59)
[2018-02-01] MEDS: VALPROIC ACID 250 MG CAP PO SCH ×2 (08:59→20:32)
[2018-02-01] MEDS: MULTIVITAMIN TAB PO SCH (09:00)
[2018-02-01] MEDS: FLUoxetine HCL 20 MG CAP PO SCH (09:00)
[2018-02-01] MEDS: QUEtiapine FUMARATE 100 MG TAB PO SCH ×2 (09:01→20:31)
--- NOTE | 2018-02-01 09:37 | HHI.PR ---
Subjective Remarks Patient seen and examined today for follow-up on unsafe discharge due to cognition. Patient is walking the halls without any problems. Denies any new complaints. Vital signs are stable, patient remains afebrile. Objective Vitals Vital Signs Date Time Temp Pulse Resp B/P (MAP) Pulse Ox O2 Delivery O2 Flow Rate FiO2 02/01/18 00:00 96.3 75 20 133/78 (96) 95 01/31/18 20:00 97.5 76 20 118/85 (96) 91 I/O 01/31/18 01/31/18 01/31/18 02/01/18 02/01/18 02/01/18 07:00 15:00 23:00 07:00 15:00 23:00 Intake Total 720 ml 450 ml Balance 720 ml 450 ml Intake Oral 720 ml 450 ml # Voids 1 3 5 # Bowel Movements 2 Objective Remarks GENERAL: Well-developed, well-nourished, in no acute distress. alert and orientated waxes and wanes daily HEENT: Head is normocephalic without any lesions or masses noted. Facial features are symmetric. Eyes: Extraocular muscles are intact. Conjunctivae were clear. NECK: C-collar in on table at bedside CARDIAC: Regular rhythm, regular rate. S1/S2 are heard. No murmurs gallops or rubs. LUNGS: Clear to auscultation bilaterally. No wheeze, rhonchi or rales. No use of accessory muscles on inspiration or expiration. ABDOMEN: Soft, nontender. Nondistended. Bowel sounds heard in all 4 quadrants. No organomegaly or masses. Negative rebound, negative guarding EXTREMITIES: No edema, pulses are equal bilaterally. No cyanosis or clubbing NEUROLOGY: Mood and affect appear appropriate. Cranial nerves II through XII grossly intact moving all extremities, speech is clear Urinary Catheter: No Vascular Central Line Catheter: No A/P Assessment and Plan Inability to care for self, unsafe discharge due to cognition Initially he was indicated patient cannot walk, patient is walking at this time, PT and OT recommending supervision at home for safety Speech therapy following the patient intermittently for cognitive evaluations. 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 MIni mental state 28/30, recommended avoid antipsychotics and benzodiazepine. Recommending Depakote or carbamazepine Patient is medically stable for discharge, however due to underlying psychiatric/cognition patient is unsafe discharge until arrangements made by case management Case management for discharge planning Neuropsychiatry evaluated the patient recommended patient may improve with treatment, however indicates avoid benzodiazepines and antipsychotics Continue Prozac 40 mg daily Depakene 500 mg twice daily Seroquel 100 mg twice daily *Discussed with psychiatry again about patient's cognition issues. He indicated that the patient lacks capacity for signing AMA or to participate in discharge plan. He is recommending that he would invite the ethics committee to the hospital to have a discussion about patient care *Consulted case management for ethics committee review, awaiting response Mild malnutrition, secondary to poor by mouth intake Albumin 2.8 Prealbumin 19 However, patient actually has increase in weight of 6 pounds since admission. In the last 3 days it would appear that she's gained another 6 pounds Continue Remeron Dietary consulted who recommended ensure with breakfast lunch and there. May have muffin at bedtime, daily vitamin Recurrent falls, Patient moved close to nursing station Patient does state that she is having neck pain Patient denies any neurological symptoms of weakness, paresthesia, loss of bowel or bladder control Orthostatic vitals do show drop in systolic blood pressure when standing. Improved after hydration Status post 2 L normal saline and continue monitor orthostatic vitals MRI of the neck. Multilevel degenerative changes. Mild degree of canal stenosis C5-C6, anterior fusion C6-C7 MRI of thoracic and lumbar spine do not indicate any acute abnormality Clavicle x-ray shows nonacute distal clavicle fracture. Carotid ultrasound was unremarkable Echocardiogram indicate ejection fraction 50-55% without any abnormalities Physical therapy ordered for 5 days a week Multiple traumatic injuries, Patient laceration, subdural hemorrhage, ventricular hemorrhage, nasal fracture, C6 fracture, C1-C2 subluxation, C4 transverse process fracture, right rib fracture, L1 transverse process fracture, right pubic rami fracture Continue c-collar this time, however patient does not wear Follow-up cervical spine CT indicates no evidence of acute fracture. Postsurgical changes Specialist no longer following patient, patient will require outpatient follow-up if discharge Right breast abscess, improved Physical exam patient does have a erythematous area with drainage Ultrasound does show complex loculated collection measuring 2.4 x 1.7 x 1.8 cm. Representing breast abscess Status post Augmentin 500 mg twice daily for 10 days and Bactrim DS for 18 days Gen. surgery consulted who recommends no intervention at this time, Soft tissue ultrasound shows a improvement of the fluid collection. Outpatient mammogram performed 01/25/18. Benign findings, recommendations for follow-up breast ultrasound in 3 months. Hypothyroidism TSH 5.11, follow-up TSH 3.73 Free T4 0.57, free T3 1 0.47 Levothyroxine 25 g daily Monitor TSH every 6-8 weeks Hypertension, improved Continue monitor blood pressure Amlodipine 10 mg daily Lisinopril 2.5 mg daily DVT prevention Patient ambulating Sequential compression devices while in bed Records are reviewed. No change in current treatment plan, Case management for discharge planning. Discharge Planning Case management for discharge planning, Conrado Mariee Feb 01, 2018 09:37
[2018-02-01 20:00] VITALS: BP 119/76; PULSE 85; RESP 19; TEMP 97.3; O2SAT 92
[2018-02-01] MEDS: MIRTAZAPINE 15 MG TAB PO SCH (20:32)
[2018-02-01] MEDS: ACETAMINOPHEN 325 MG TAB PO PRN (20:33)
[2018-02-02] MEDS: LEVOTHYROXINE SODIUM 25 MCG TAB PO SCH (04:44)
[2018-02-02 07:50] VITALS: BP 138/94; PULSE 69; RESP 20; TEMP 97.9; O2SAT 93
[2018-02-02] MEDS: MULTIVITAMIN TAB PO SCH (08:34)
[2018-02-02] MEDS: VALPROIC ACID 250 MG CAP PO SCH ×2 (08:34→20:23)
[2018-02-02] MEDS: FLUoxetine HCL 20 MG CAP PO SCH (08:34)
[2018-02-02] MEDS: QUEtiapine FUMARATE 100 MG TAB PO SCH ×2 (08:35→20:24)
[2018-02-02] MEDS: LISINOPRIL 5 MG TAB PO SCH (08:35)
--- NOTE | 2018-02-02 08:46 | HHI.PR ---
Subjective Remarks Patient seen and examined today for follow-up on unsafe discharge due to cognition. Patient denies any new complaints. No change in clinical status. Awaiting case management for discharge planning. Vital signs are stable, afebrile Objective Vitals Vital Signs Date Time Temp Pulse Resp B/P (MAP) Pulse Ox O2 Delivery O2 Flow Rate FiO2 02/01/18 21:33 20 02/01/18 20:00 97.3 85 19 119/76 (90) 92 I/O 02/01/18 02/01/18 02/01/18 02/02/18 02/02/18 02/02/18 07:00 15:00 23:00 07:00 15:00 23:00 Intake Total 450 ml 825 ml 300 ml Balance 450 ml 825 ml 300 ml Intake Oral 450 ml 825 ml 300 ml # Voids 5 3 2 1 # Bowel Movements 2 Objective Remarks GENERAL: Well-developed, well-nourished, in no acute distress. alert and orientated waxes and wanes daily HEENT: Head is normocephalic without any lesions or masses noted. Facial features are symmetric. Eyes: Extraocular muscles are intact. Conjunctivae were clear. NECK: C-collar in on table at bedside CARDIAC: Regular rhythm, regular rate. S1/S2 are heard. No murmurs gallops or rubs. LUNGS: Clear to auscultation bilaterally. No wheeze, rhonchi or rales. No use of accessory muscles on inspiration or expiration. ABDOMEN: Soft, nontender. Nondistended. Bowel sounds heard in all 4 quadrants. No organomegaly or masses. Negative rebound, negative guarding EXTREMITIES: No edema, pulses are equal bilaterally. No cyanosis or clubbing NEUROLOGY: Mood and affect appear appropriate. Cranial nerves II through XII grossly intact moving all extremities, speech is clear Urinary Catheter: No Vascular Central Line Catheter: No A/P Assessment and Plan Inability to care for self, unsafe discharge due to cognition Initially he was indicated patient cannot walk, patient is walking at this time, PT and OT recommending supervision at home for safety Speech therapy following the patient intermittently for cognitive evaluations. 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 MIni mental state 28/30, recommended avoid antipsychotics and benzodiazepine. Recommending Depakote or carbamazepine Patient is medically stable for discharge, however due to underlying psychiatric/cognition patient is unsafe discharge until arrangements made by case management Case management for discharge planning Neuropsychiatry evaluated the patient recommended patient may improve with treatment, however indicates avoid benzodiazepines and antipsychotics Continue Prozac 40 mg daily Depakene 500 mg twice daily Seroquel 100 mg twice daily *Discussed with psychiatry again about patient's cognition issues. He indicated that the patient lacks capacity for signing AMA or to participate in discharge plan. He is recommending that he would invite the ethics committee to the hospital to have a discussion about patient care *Consulted case management for ethics committee review, awaiting response Mild malnutrition, secondary to poor by mouth intake Albumin 2.8 Prealbumin 19 However, patient actually has increase in weight of 6 pounds since admission. In the last 3 days it would appear that she's gained another 6 pounds Continue Remeron Dietary consulted who recommended ensure with breakfast lunch and there. May have muffin at bedtime, daily vitamin Recurrent falls, Patient moved close to nursing station Patient does state that she is having neck pain Patient denies any neurological symptoms of weakness, paresthesia, loss of bowel or bladder control Orthostatic vitals do show drop in systolic blood pressure when standing. Improved after hydration Status post 2 L normal saline and continue monitor orthostatic vitals MRI of the neck. Multilevel degenerative changes. Mild degree of canal stenosis C5-C6, anterior fusion C6-C7 MRI of thoracic and lumbar spine do not indicate any acute abnormality Clavicle x-ray shows nonacute distal clavicle fracture. Carotid ultrasound was unremarkable Echocardiogram indicate ejection fraction 50-55% without any abnormalities Physical therapy ordered for 5 days a week Multiple traumatic injuries, Patient laceration, subdural hemorrhage, ventricular hemorrhage, nasal fracture, C6 fracture, C1-C2 subluxation, C4 transverse process fracture, right rib fracture, L1 transverse process fracture, right pubic rami fracture Continue c-collar this time, however patient does not wear Follow-up cervical spine CT indicates no evidence of acute fracture. Postsurgical changes Specialist no longer following patient, patient will require outpatient follow-up if discharge Right breast abscess, improved Physical exam patient does have a erythematous area with drainage Ultrasound does show complex loculated collection measuring 2.4 x 1.7 x 1.8 cm. Representing breast abscess Status post Augmentin 500 mg twice daily for 10 days and Bactrim DS for 18 days Gen. surgery consulted who recommends no intervention at this time, Soft tissue ultrasound shows a improvement of the fluid collection. Outpatient mammogram performed 01/25/18. Benign findings, recommendations for follow-up breast ultrasound in 3 months. Hypothyroidism TSH 5.11, follow-up TSH 3.73 Free T4 0.57, free T3 1 0.47 Levothyroxine 25 g daily Monitor TSH every 6-8 weeks Hypertension, improved Continue monitor blood pressure Amlodipine 10 mg daily Lisinopril 2.5 mg daily DVT prevention Patient ambulating Sequential compression devices while in bed Records are reviewed. Case management for discharge planning. No change in current treatment plan, Discharge Planning Case management for discharge planning, Conrado Mariee Feb 02, 2018 08:46
[2018-02-02] MEDS: ACETAMINOPHEN 325 MG TAB PO PRN (14:34)
[2018-02-02 20:00] VITALS: BP 144/84; PULSE 80; RESP 16; TEMP 98.6; O2SAT 94
[2018-02-02] MEDS: MIRTAZAPINE 15 MG TAB PO SCH (20:24)
[2018-02-03] MEDS: LEVOTHYROXINE SODIUM 25 MCG TAB PO SCH (05:14)
[2018-02-03 08:00] VITALS: BP 130/85; PULSE 69; RESP 16; TEMP 97.1; O2SAT 92
[2018-02-03] MEDS: QUEtiapine FUMARATE 100 MG TAB PO SCH ×2 (08:04→20:54)
[2018-02-03] MEDS: FLUoxetine HCL 20 MG CAP PO SCH (08:05)
[2018-02-03] MEDS: LISINOPRIL 5 MG TAB PO SCH (08:06)
[2018-02-03] MEDS: MULTIVITAMIN TAB PO SCH (08:06)
[2018-02-03] MEDS: VALPROIC ACID 250 MG CAP PO SCH ×2 (08:06→20:54)
--- NOTE | 2018-02-03 09:16 | HHI.PR ---
Subjective Remarks Patient seen and examined today for follow-up on unsafe discharge due to cognition. Patient denies any new complaints. Vital signs are stable, patient remains afebrile. Objective Vitals Vital Signs Date Time Temp Pulse Resp B/P (MAP) Pulse Ox O2 Delivery O2 Flow Rate FiO2 02/03/18 08:00 97.1 69 16 130/85 (100) 92 02/02/18 20:00 98.6 80 16 144/84 (104) 94 02/02/18 15:34 18 I/O 02/02/18 02/02/18 02/02/18 02/03/18 02/03/18 02/03/18 07:00 15:00 23:00 07:00 15:00 23:00 Intake Total 920 ml Balance 920 ml Intake Oral 920 ml # Voids 1 8 2 # Bowel Movements 6 Objective Remarks GENERAL: Well-developed, well-nourished, in no acute distress. alert and orientated waxes and wanes daily HEENT: Head is normocephalic without any lesions or masses noted. Facial features are symmetric. Eyes: Extraocular muscles are intact. Conjunctivae were clear. NECK: C-collar in on table at bedside CARDIAC: Regular rhythm, regular rate. S1/S2 are heard. No murmurs gallops or rubs. LUNGS: Clear to auscultation bilaterally. No wheeze, rhonchi or rales. No use of accessory muscles on inspiration or expiration. ABDOMEN: Soft, nontender. Nondistended. Bowel sounds heard in all 4 quadrants. No organomegaly or masses. Negative rebound, negative guarding EXTREMITIES: No edema, pulses are equal bilaterally. No cyanosis or clubbing NEUROLOGY: Mood and affect appear appropriate. Cranial nerves II through XII grossly intact moving all extremities, speech is clear Urinary Catheter: No Vascular Central Line Catheter: No A/P Assessment and Plan Inability to care for self, unsafe discharge due to cognition Initially he was indicated patient cannot walk, patient is walking at this time, PT and OT recommending supervision at home for safety Speech therapy following the patient intermittently for cognitive evaluations. 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 MIni mental state 28/30, recommended avoid antipsychotics and benzodiazepine. Recommending Depakote or carbamazepine Patient is medically stable for discharge, however due to underlying psychiatric/cognition patient is unsafe discharge until arrangements made by case management Case management for discharge planning Neuropsychiatry evaluated the patient recommended patient may improve with treatment, however indicates avoid benzodiazepines and antipsychotics Continue Prozac 40 mg daily Depakene 500 mg twice daily Seroquel 100 mg twice daily *Discussed with psychiatry again about patient's cognition issues. He indicated that the patient lacks capacity for signing AMA or to participate in discharge plan. He is recommending that he would invite the ethics committee to the hospital to have a discussion about patient care *Consulted case management for ethics committee review, awaiting response Mild malnutrition, secondary to poor by mouth intake Albumin 2.8 Prealbumin 19 However, patient actually has increase in weight of 6 pounds since admission. In the last 3 days it would appear that she's gained another 6 pounds Continue Remeron Dietary consulted who recommended ensure with breakfast lunch and there. May have muffin at bedtime, daily vitamin Recurrent falls, Patient moved close to nursing station Patient does state that she is having neck pain Patient denies any neurological symptoms of weakness, paresthesia, loss of bowel or bladder control Orthostatic vitals do show drop in systolic blood pressure when standing. Improved after hydration Status post 2 L normal saline and continue monitor orthostatic vitals MRI of the neck. Multilevel degenerative changes. Mild degree of canal stenosis C5-C6, anterior fusion C6-C7 MRI of thoracic and lumbar spine do not indicate any acute abnormality Clavicle x-ray shows nonacute distal clavicle fracture. Carotid ultrasound was unremarkable Echocardiogram indicate ejection fraction 50-55% without any abnormalities Physical therapy ordered for 5 days a week Multiple traumatic injuries, Patient laceration, subdural hemorrhage, ventricular hemorrhage, nasal fracture, C6 fracture, C1-C2 subluxation, C4 transverse process fracture, right rib fracture, L1 transverse process fracture, right pubic rami fracture Continue c-collar this time, however patient does not wear Follow-up cervical spine CT indicates no evidence of acute fracture. Postsurgical changes Specialist no longer following patient, patient will require outpatient follow-up if discharge Right breast abscess, improved Physical exam patient does have a erythematous area with drainage Ultrasound does show complex loculated collection measuring 2.4 x 1.7 x 1.8 cm. Representing breast abscess Status post Augmentin 500 mg twice daily for 10 days and Bactrim DS for 18 days Gen. surgery consulted who recommends no intervention at this time, Soft tissue ultrasound shows a improvement of the fluid collection. Outpatient mammogram performed 01/25/18. Benign findings, recommendations for follow-up breast ultrasound in 3 months. Hypothyroidism TSH 5.11, follow-up TSH 3.73 Free T4 0.57, free T3 1 0.47 Levothyroxine 25 g daily Monitor TSH every 6-8 weeks Hypertension, improved Continue monitor blood pressure Amlodipine 10 mg daily Lisinopril 2.5 mg daily DVT prevention Patient ambulating Sequential compression devices while in bed Records are reviewed. No change in current treatment plan, Case management for discharge planning. Discharge Planning Case management for discharge planning, foster care case manager indicated that a local [facility] has came and evaluated the patient and plans on excepting. Awaiting arrangements made by Gary for transfer to [facility] facility Conrado Mariee Feb 03, 2018 09:16
[2018-02-03 20:00] VITALS: BP 127/81; PULSE 83; RESP 20; TEMP 97; O2SAT 93
[2018-02-03] MEDS: MIRTAZAPINE 15 MG TAB PO SCH (20:54)
[2018-02-03] MEDS: ACETAMINOPHEN 325 MG TAB PO PRN (20:55)
[2018-02-04] MEDS: LEVOTHYROXINE SODIUM 25 MCG TAB PO SCH (06:20)
[2018-02-04 08:00] VITALS: BP 131/80; PULSE 74; RESP 18; TEMP 97.9; O2SAT 95
[2018-02-04] MEDS: MULTIVITAMIN TAB PO SCH (08:16)
[2018-02-04] MEDS: QUEtiapine FUMARATE 100 MG TAB PO SCH ×2 (08:17→22:18)
[2018-02-04] MEDS: LISINOPRIL 5 MG TAB PO SCH (08:17)
[2018-02-04] MEDS: FLUoxetine HCL 20 MG CAP PO SCH (08:18)
[2018-02-04] MEDS: VALPROIC ACID 250 MG CAP PO SCH ×2 (08:18→22:18)
[2018-02-04] MEDS: ERGOCALCIFEROL (VIT D2) 50,000 UNIT CAP PO SCH (08:30)
--- NOTE | 2018-02-04 09:25 | HHI.PR ---
Subjective Remarks Patient seen and examined today for a safe discharge due to cognition. Patient in bed eating breakfast. Denies any new complaints. No change in clinical status. Awaiting case management discharge planning. Vital signs are stable, patient remains afebrile Objective Vitals Vital Signs Date Time Temp Pulse Resp B/P (MAP) Pulse Ox O2 Delivery O2 Flow Rate FiO2 02/03/18 20:00 97.0 83 20 127/81 (96) 93 I/O 02/03/18 02/03/18 02/03/18 02/04/18 02/04/18 02/04/18 07:00 15:00 23:00 07:00 15:00 23:00 Intake Total 1020 ml 480 ml Balance 1020 ml 480 ml Intake Oral 1020 ml 480 ml # Voids 2 6 3 # Bowel Movements 4 0 Objective Remarks GENERAL: Well-developed, well-nourished, in no acute distress. alert and orientated waxes and wanes daily HEENT: Head is normocephalic without any lesions or masses noted. Facial features are symmetric. Eyes: Extraocular muscles are intact. Conjunctivae were clear. NECK: C-collar in on table at bedside CARDIAC: Regular rhythm, regular rate. S1/S2 are heard. No murmurs gallops or rubs. LUNGS: Clear to auscultation bilaterally. No wheeze, rhonchi or rales. No use of accessory muscles on inspiration or expiration. ABDOMEN: Soft, nontender. Nondistended. Bowel sounds heard in all 4 quadrants. No organomegaly or masses. Negative rebound, negative guarding EXTREMITIES: No edema, pulses are equal bilaterally. No cyanosis or clubbing NEUROLOGY: Mood and affect appear appropriate. Cranial nerves II through XII grossly intact moving all extremities, speech is clear Urinary Catheter: No Vascular Central Line Catheter: No A/P Assessment and Plan Inability to care for self, unsafe discharge due to cognition Initially he was indicated patient cannot walk, patient is walking at this time, PT and OT recommending supervision at home for safety Speech therapy following the patient intermittently for cognitive evaluations. 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 MIni mental state 28/30, recommended avoid antipsychotics and benzodiazepine. Recommending Depakote or carbamazepine Patient is medically stable for discharge, however due to underlying psychiatric/cognition patient is unsafe discharge until arrangements made by case management Case management for discharge planning Neuropsychiatry evaluated the patient recommended patient may improve with treatment, however indicates avoid benzodiazepines and antipsychotics Continue Prozac 40 mg daily Depakene 500 mg twice daily Seroquel 100 mg twice daily *Discussed with psychiatry again about patient's cognition issues. He indicated that the patient lacks capacity for signing AMA or to participate in discharge plan. He is recommending that he would invite the ethics committee to the hospital to have a discussion about patient care *Consulted case management for ethics committee review, awaiting response Mild malnutrition, secondary to poor by mouth intake Albumin 2.8 Prealbumin 19 However, patient actually has increase in weight of 6 pounds since admission. In the last 3 days it would appear that she's gained another 6 pounds Continue Remeron Dietary consulted who recommended ensure with breakfast lunch and there. May have muffin at bedtime, daily vitamin Recurrent falls, Patient moved close to nursing station Patient does state that she is having neck pain Patient denies any neurological symptoms of weakness, paresthesia, loss of bowel or bladder control Orthostatic vitals do show drop in systolic blood pressure when standing. Improved after hydration Status post 2 L normal saline and continue monitor orthostatic vitals MRI of the neck. Multilevel degenerative changes. Mild degree of canal stenosis C5-C6, anterior fusion C6-C7 MRI of thoracic and lumbar spine do not indicate any acute abnormality Clavicle x-ray shows nonacute distal clavicle fracture. Carotid ultrasound was unremarkable Echocardiogram indicate ejection fraction 50-55% without any abnormalities Physical therapy ordered for 5 days a week Multiple traumatic injuries, Patient laceration, subdural hemorrhage, ventricular hemorrhage, nasal fracture, C6 fracture, C1-C2 subluxation, C4 transverse process fracture, right rib fracture, L1 transverse process fracture, right pubic rami fracture Continue c-collar this time, however patient does not wear Follow-up cervical spine CT indicates no evidence of acute fracture. Postsurgical changes Specialist no longer following patient, patient will require outpatient follow-up if discharge Right breast abscess, improved Physical exam patient does have a erythematous area with drainage Ultrasound does show complex loculated collection measuring 2.4 x 1.7 x 1.8 cm. Representing breast abscess Status post Augmentin 500 mg twice daily for 10 days and Bactrim DS for 18 days Gen. surgery consulted who recommends no intervention at this time, Soft tissue ultrasound shows a improvement of the fluid collection. Outpatient mammogram performed 01/25/18. Benign findings, recommendations for follow-up breast ultrasound in 3 months. Hypothyroidism TSH 5.11, follow-up TSH 3.73 Free T4 0.57, free T3 1 0.47 Levothyroxine 25 g daily Monitor TSH every 6-8 weeks Hypertension, improved Continue monitor blood pressure Amlodipine 10 mg daily Lisinopril 2.5 mg daily DVT prevention Patient ambulating Sequential compression devices while in bed Records are reviewed. Case management for discharge planning. No change in current treatment plan, Discharge Planning Case management for discharge planning, dependency case manager indicated that a local skilled nursing has came and evaluated the patient and plans on excepting. Awaiting arrangements made by Gary for transfer to custodial facility Conrado Mariee Feb 04, 2018 09:25
[2018-02-04 20:00] VITALS: BP 126/79; PULSE 80; RESP 20; TEMP 97.1; O2SAT 93
[2018-02-04] MEDS: MIRTAZAPINE 15 MG TAB PO SCH (22:18)
[2018-02-05] MEDS: LEVOTHYROXINE SODIUM 25 MCG TAB PO SCH (06:42)
[2018-02-05 08:00] VITALS: BP 114/74; PULSE 74; RESP 18; TEMP 97; O2SAT 96
[2018-02-05] MEDS: LISINOPRIL 5 MG TAB PO SCH (08:41)
[2018-02-05] MEDS: FLUoxetine HCL 20 MG CAP PO SCH (08:41)
[2018-02-05] MEDS: MULTIVITAMIN TAB PO SCH (08:41)
[2018-02-05] MEDS: QUEtiapine FUMARATE 100 MG TAB PO SCH ×2 (08:41→21:52)
[2018-02-05] MEDS: VALPROIC ACID 250 MG CAP PO SCH ×2 (08:42→21:52)
--- NOTE | 2018-02-05 08:52 | HHI.PR ---
Subjective Remarks Patient seen and examined today for follow-up on unsafe discharge due to cognition. Patient doing well. Denies any new complaints. Vital signs are stable. Patient remains afebrile Objective Vitals Vital Signs Date Time Temp Pulse Resp B/P (MAP) Pulse Ox O2 Delivery O2 Flow Rate FiO2 02/04/18 20:00 97.1 80 20 126/79 (95) 93 I/O 02/04/18 02/04/18 02/04/18 02/05/18 02/05/18 02/05/18 07:00 15:00 23:00 07:00 15:00 23:00 Intake Total 480 ml 600 ml 240 ml Balance 480 ml 600 ml 240 ml Intake Oral 480 ml 600 ml 240 ml # Voids 3 3 1 # Bowel Movements 0 Objective Remarks GENERAL: Well-developed, well-nourished, in no acute distress. alert and orientated waxes and wanes daily HEENT: Head is normocephalic without any lesions or masses noted. Facial features are symmetric. Eyes: Extraocular muscles are intact. Conjunctivae were clear. NECK: C-collar in on table at bedside CARDIAC: Regular rhythm, regular rate. S1/S2 are heard. No murmurs gallops or rubs. LUNGS: Clear to auscultation bilaterally. No wheeze, rhonchi or rales. No use of accessory muscles on inspiration or expiration. ABDOMEN: Soft, nontender. Nondistended. Bowel sounds heard in all 4 quadrants. No organomegaly or masses. Negative rebound, negative guarding EXTREMITIES: No edema, pulses are equal bilaterally. No cyanosis or clubbing NEUROLOGY: Mood and affect appear appropriate. Cranial nerves II through XII grossly intact moving all extremities, speech is clear Urinary Catheter: No Vascular Central Line Catheter: No A/P Assessment and Plan Inability to care for self, unsafe discharge due to cognition Initially he was indicated patient cannot walk, patient is walking at this time, PT and OT recommending supervision at home for safety Speech therapy following the patient intermittently for cognitive evaluations. 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 MIni mental state 28/30, recommended avoid antipsychotics and benzodiazepine. Recommending Depakote or carbamazepine Patient is medically stable for discharge, however due to underlying psychiatric/cognition patient is unsafe discharge until arrangements made by case management Case management for discharge planning Neuropsychiatry evaluated the patient recommended patient may improve with treatment, however indicates avoid benzodiazepines and antipsychotics Continue Prozac 40 mg daily Depakene 500 mg twice daily Seroquel 100 mg twice daily *Discussed with psychiatry again about patient's cognition issues. He indicated that the patient lacks capacity for signing AMA or to participate in discharge plan. He is recommending that he would invite the ethics committee to the hospital to have a discussion about patient care *Consulted case management for ethics committee review, awaiting response Mild malnutrition, secondary to poor by mouth intake Albumin 2.8 Prealbumin 19 However, patient actually has increase in weight of 6 pounds since admission. In the last 3 days it would appear that she's gained another 6 pounds Continue Remeron Dietary consulted who recommended ensure with breakfast lunch and there. May have muffin at bedtime, daily vitamin Recurrent falls, Patient moved close to nursing station Patient does state that she is having neck pain Patient denies any neurological symptoms of weakness, paresthesia, loss of bowel or bladder control Orthostatic vitals do show drop in systolic blood pressure when standing. Improved after hydration Status post 2 L normal saline and continue monitor orthostatic vitals MRI of the neck. Multilevel degenerative changes. Mild degree of canal stenosis C5-C6, anterior fusion C6-C7 MRI of thoracic and lumbar spine do not indicate any acute abnormality Clavicle x-ray shows nonacute distal clavicle fracture. Carotid ultrasound was unremarkable Echocardiogram indicate ejection fraction 50-55% without any abnormalities Physical therapy ordered for 5 days a week Multiple traumatic injuries, Patient laceration, subdural hemorrhage, ventricular hemorrhage, nasal fracture, C6 fracture, C1-C2 subluxation, C4 transverse process fracture, right rib fracture, L1 transverse process fracture, right pubic rami fracture Continue c-collar this time, however patient does not wear Follow-up cervical spine CT 1025/ indicates no evidence of acute fracture. Postsurgical changes Specialist no longer following patient, patient will require outpatient follow-up if discharge Right breast abscess, improved Physical exam patient does have a erythematous area with drainage Ultrasound does show complex loculated collection measuring 2.4 x 1.7 x 1.8 cm. Representing breast abscess Status post Augmentin 500 mg twice daily for 10 days and Bactrim DS for 18 days Gen. surgery consulted who recommends no intervention at this time, Soft tissue ultrasound shows a improvement of the fluid collection. Outpatient mammogram performed 01/25/18. Benign findings, recommendations for follow-up breast ultrasound in 3 months. Hypothyroidism TSH 5.11, follow-up TSH 3.73 Free T4 0.57, free T3 1 0.47 Levothyroxine 25 g daily Monitor TSH every 6-8 weeks Hypertension, improved Continue monitor blood pressure Amlodipine 10 mg daily Lisinopril 2.5 mg daily DVT prevention Patient ambulating Sequential compression devices while in bed Records are reviewed. No change in current treatment plan, Case management for discharge planning. Discharge Planning Case management for discharge planning, case investigator indicated that a local skilled nursing has came and evaluated the patient and plans on excepting. Awaiting arrangements made by [facility] for transfer to senior living facility Conrado Mariee Feb 05, 2018 08:52
[2018-02-05 20:00] VITALS: BP 109/70; PULSE 81; RESP 20; TEMP 96.7; O2SAT 93
[2018-02-05] MEDS: MIRTAZAPINE 15 MG TAB PO SCH (21:52)
[2018-02-06] MEDS: LEVOTHYROXINE SODIUM 25 MCG TAB PO SCH (06:27)
--- NOTE | 2018-02-06 07:37 | HHI.PR ---
Subjective Remarks Patient seen and examined today for follow-up on unsafe discharge due to cognition. Patient denies any new complaints. No change in clinical status. Awaiting briefcase sewer for discharge planning. Vital signs are stable, patient remains afebrile Objective Vitals Vital Signs Date Time Temp Pulse Resp B/P (MAP) Pulse Ox O2 Delivery O2 Flow Rate FiO2 02/05/18 20:00 96.7 81 20 109/70 (83) 93 02/05/18 08:00 97.0 74 18 114/74 (87) 96 I/O 02/05/18 02/05/18 02/05/18 02/06/18 02/06/18 02/06/18 07:00 15:00 23:00 07:00 15:00 23:00 Intake Total 240 ml 1150 ml 300 ml Balance 240 ml 1150 ml 300 ml Intake Oral 240 ml 1150 ml 300 ml # Voids 1 4 1 Objective Remarks GENERAL: Well-developed, well-nourished, in no acute distress. alert and orientation waxes and wanes daily HEENT: Head is normocephalic without any lesions or masses noted. Facial features are symmetric. Eyes: Extraocular muscles are intact. Conjunctivae were clear. CARDIAC: Regular rhythm, regular rate. S1/S2 are heard. No murmurs gallops or rubs. LUNGS: Clear to auscultation bilaterally. No wheeze, rhonchi or rales. No use of accessory muscles on inspiration or expiration. EXTREMITIES: No edema, pulses are equal bilaterally. No cyanosis or clubbing NEUROLOGY: Mood and affect appear appropriate. Cranial nerves II through XII grossly intact moving all extremities, speech is clear Urinary Catheter: No Vascular Central Line Catheter: No A/P Assessment and Plan Inability to care for self, unsafe discharge due to cognition Initially he was indicated patient cannot walk, patient is walking at this time, PT and OT recommending supervision at home for safety Speech therapy following the patient intermittently for cognitive evaluations. 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 MIni mental state 28/30, recommended avoid antipsychotics and benzodiazepine. Recommending Depakote or carbamazepine Patient is medically stable for discharge, however due to underlying psychiatric/cognition patient is unsafe discharge until arrangements made by case management Case management for discharge planning Neuropsychiatry evaluated the patient recommended patient may improve with treatment, however indicates avoid benzodiazepines and antipsychotics Continue Prozac 40 mg daily Depakene 500 mg twice daily Seroquel 100 mg twice daily *Discussed with psychiatry again about patient's cognition issues. He indicated that the patient lacks capacity for signing AMA or to participate in discharge plan. He is recommending that he would invite the ethics committee to the hospital to have a discussion about patient care *Consulted case management for ethics committee review, awaiting response Mild malnutrition, secondary to poor by mouth intake Albumin 2.8 Prealbumin 19 However, patient actually has increase in weight of 6 pounds since admission. In the last 3 days it would appear that she's gained another 6 pounds Continue Remeron Dietary consulted who recommended ensure with breakfast lunch and there. May have muffin at bedtime, daily vitamin Recurrent falls, Patient moved close to nursing station Patient does state that she is having neck pain Patient denies any neurological symptoms of weakness, paresthesia, loss of bowel or bladder control Orthostatic vitals do show drop in systolic blood pressure when standing. Improved after hydration Status post 2 L normal saline and continue monitor orthostatic vitals MRI of the neck. Multilevel degenerative changes. Mild degree of canal stenosis C5-C6, anterior fusion C6-C7 MRI of thoracic and lumbar spine do not indicate any acute abnormality Clavicle x-ray shows nonacute distal clavicle fracture. Carotid ultrasound was unremarkable Echocardiogram indicate ejection fraction 50-55% without any abnormalities Physical therapy ordered for 5 days a week Multiple traumatic injuries, Patient laceration, subdural hemorrhage, ventricular hemorrhage, nasal fracture, C6 fracture, C1-C2 subluxation, C4 transverse process fracture, right rib fracture, L1 transverse process fracture, right pubic rami fracture Continue c-collar this time, however patient does not wear Follow-up cervical spine CT 1026/17 indicates no evidence of acute fracture. Postsurgical changes Specialist no longer following patient, patient will require outpatient follow-up if discharge Right breast abscess, improved Physical exam patient does have a erythematous area with drainage Ultrasound does show complex loculated collection measuring 2.4 x 1.7 x 1.8 cm. Representing breast abscess Status post Augmentin 500 mg twice daily for 10 days and Bactrim DS for 18 days Gen. surgery consulted who recommends no intervention at this time, Soft tissue ultrasound shows a improvement of the fluid collection. Outpatient mammogram performed 01/25/18. Benign findings, recommendations for follow-up breast ultrasound in 3 months. Hypothyroidism TSH 5.11, follow-up TSH 3.73 Free T4 0.57, free T3 1 0.47 Levothyroxine 25 g daily Monitor TSH every 6-8 weeks Hypertension, improved Continue monitor blood pressure Amlodipine 10 mg daily Lisinopril 2.5 mg daily DVT prevention Patient ambulating Sequential compression devices while in bed Records are reviewed. Case management for discharge planning. No change in current treatment plan, Discharge Planning Case management for discharge planning, briefcase sewer indicated that a local correction has came and evaluated the patient and plans on excepting. Awaiting arrangements made by [facility] for transfer to [facility] Conrado Mariee Feb 06, 2018 07:37
[2018-02-06 08:00] VITALS: BP 145/92; PULSE 71; RESP 16; TEMP 98.1; O2SAT 96
[2018-02-06] MEDS: MULTIVITAMIN TAB PO SCH (08:33)
[2018-02-06] MEDS: VALPROIC ACID 250 MG CAP PO SCH ×2 (08:34→21:31)
[2018-02-06] MEDS: LISINOPRIL 5 MG TAB PO SCH (08:34)
[2018-02-06] MEDS: FLUoxetine HCL 20 MG CAP PO SCH (08:34)
[2018-02-06] MEDS: QUEtiapine FUMARATE 100 MG TAB PO SCH ×2 (08:34→21:31)
[2018-02-06 20:30] VITALS: BP 116/85; PULSE 81; RESP 18; TEMP 98.2; O2SAT 97
[2018-02-06] MEDS: MIRTAZAPINE 15 MG TAB PO SCH (21:31)
[2018-02-07] MEDS: LEVOTHYROXINE SODIUM 25 MCG TAB PO SCH (06:17)
--- NOTE | 2018-02-07 07:06 | HHI.PR ---
Subjective Remarks Patient seen and examined today for follow-up on unsafe discharge due to cognition. Patient resting in bed comfortably. Denies any new complaints. No change in clinical status. Vital signs are stable, she remains afebrile. Objective Vitals Vital Signs Date Time Temp Pulse Resp B/P (MAP) Pulse Ox O2 Delivery O2 Flow Rate FiO2 02/06/18 20:30 98.2 81 18 116/85 (95) 97 02/06/18 08:00 98.1 71 16 145/92 (109) 96 I/O 02/06/18 02/06/18 02/06/18 02/07/18 02/07/18 02/07/18 07:00 15:00 23:00 07:00 15:00 23:00 Intake Total 950 ml 420 ml Balance 950 ml 420 ml Intake Oral 950 ml 420 ml # Voids 1 4 3 Objective Remarks GENERAL: Well-developed, well-nourished, in no acute distress. alert and orientation waxes and wanes daily HEENT: Head is normocephalic without any lesions or masses noted. Facial features are symmetric. Eyes: Extraocular muscles are intact. Conjunctivae were clear. CARDIAC: Regular rhythm, regular rate. S1/S2 are heard. No murmurs gallops or rubs. LUNGS: Clear to auscultation bilaterally. No wheeze, rhonchi or rales. No use of accessory muscles on inspiration or expiration. EXTREMITIES: No edema, pulses are equal bilaterally. No cyanosis or clubbing NEUROLOGY: Mood and affect appear appropriate. Cranial nerves II through XII grossly intact moving all extremities, speech is clear Urinary Catheter: No Vascular Central Line Catheter: No A/P Assessment and Plan Inability to care for self, unsafe discharge due to cognition Initially he was indicated patient cannot walk, patient is walking at this time, PT and OT recommending supervision at home for safety Speech therapy following the patient intermittently for cognitive evaluations. 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 MIni mental state 28/30, recommended avoid antipsychotics and benzodiazepine. Recommending Depakote or carbamazepine Patient is medically stable for discharge, however due to underlying psychiatric/cognition patient is unsafe discharge until arrangements made by case management Case management for discharge planning Neuropsychiatry evaluated the patient recommended patient may improve with treatment, however indicates avoid benzodiazepines and antipsychotics Continue Prozac 40 mg daily Depakene 500 mg twice daily Seroquel 100 mg twice daily *Discussed with psychiatry again about patient's cognition issues. He indicated that the patient lacks capacity for signing AMA or to participate in discharge plan. He is recommending that he would invite the ethics committee to the hospital to have a discussion about patient care *Consulted case management for ethics committee review, awaiting response Mild malnutrition, secondary to poor by mouth intake Albumin 2.8 Prealbumin 19 However, patient actually has increase in weight of 6 pounds since admission. In the last 3 days it would appear that she's gained another 6 pounds Continue Remeron Dietary consulted who recommended ensure with breakfast lunch and there. May have muffin at bedtime, daily vitamin Recurrent falls, Patient moved close to nursing station Patient does state that she is having neck pain Patient denies any neurological symptoms of weakness, paresthesia, loss of bowel or bladder control Orthostatic vitals do show drop in systolic blood pressure when standing. Improved after hydration Status post 2 L normal saline and continue monitor orthostatic vitals MRI of the neck. Multilevel degenerative changes. Mild degree of canal stenosis C5-C6, anterior fusion C6-C7 MRI of thoracic and lumbar spine do not indicate any acute abnormality Clavicle x-ray shows nonacute distal clavicle fracture. Carotid ultrasound was unremarkable Echocardiogram indicate ejection fraction 50-55% without any abnormalities Physical therapy ordered for 5 days a week Multiple traumatic injuries, Patient laceration, subdural hemorrhage, ventricular hemorrhage, nasal fracture, C6 fracture, C1-C2 subluxation, C4 transverse process fracture, right rib fracture, L1 transverse process fracture, right pubic rami fracture Continue c-collar this time, however patient does not wear Follow-up cervical spine CT 1026/17 indicates no evidence of acute fracture. Postsurgical changes Specialist no longer following patient, patient will require outpatient follow-up if discharge Right breast abscess, improved Physical exam patient does have a erythematous area with drainage Ultrasound does show complex loculated collection measuring 2.4 x 1.7 x 1.8 cm. Representing breast abscess Status post Augmentin 500 mg twice daily for 10 days and Bactrim DS for 18 days Gen. surgery consulted who recommends no intervention at this time, Soft tissue ultrasound shows a improvement of the fluid collection. Outpatient mammogram performed 01/25/18. Benign findings, recommendations for follow-up breast ultrasound in 3 months. Hypothyroidism TSH 5.11, follow-up TSH 3.73 Free T4 0.57, free T3 1 0.47 Levothyroxine 25 g daily Monitor TSH every 6-8 weeks Hypertension, improved Continue monitor blood pressure Amlodipine 10 mg daily Lisinopril 2.5 mg daily DVT prevention Patient ambulating Sequential compression devices while in bed Records are reviewed. No change in current treatment plan, Case management for discharge planning. Discharge Planning Case management for discharge planning, piano case maker indicated that [facility] and [facility] the patient and plans on excepting. Awaiting arrangements made by [facility] for transfer to [facility] facility Conrado Mariee Feb 07, 2018 07:06
[2018-02-07 09:23] VITALS: BP 133/88; PULSE 73; RESP 16; TEMP 97.8; O2SAT 98
[2018-02-07] MEDS: FLUoxetine HCL 20 MG CAP PO SCH (09:26)
[2018-02-07] MEDS: MULTIVITAMIN TAB PO SCH (09:26)
[2018-02-07] MEDS: LISINOPRIL 5 MG TAB PO SCH (09:27)
[2018-02-07] MEDS: VALPROIC ACID 250 MG CAP PO SCH ×2 (09:27→21:50)
[2018-02-07] MEDS: QUEtiapine FUMARATE 100 MG TAB PO SCH ×2 (09:34→21:50)
[2018-02-07 20:07] VITALS: BP 119/77; PULSE 80; RESP 18; TEMP 98; O2SAT 93
[2018-02-07] MEDS: MIRTAZAPINE 15 MG TAB PO SCH (21:50)
[2018-02-08] MEDS: LEVOTHYROXINE SODIUM 25 MCG TAB PO SCH (06:25)
[2018-02-08 08:00] VITALS: BP 130/95; PULSE 70; RESP 16; TEMP 97; O2SAT 92
--- NOTE | 2018-02-08 08:20 | HHI.PR ---
Subjective Remarks Follow-up unsafe discharge due to cognition. Patient seen and examined, lying in bed comfortably. No acute events. Denies any pain. Vital signs are stable. Afebrile. Objective Vitals Vital Signs Date Time Temp Pulse Resp B/P (MAP) Pulse Ox O2 Delivery O2 Flow Rate FiO2 02/08/18 08:00 97.0 70 16 130/95 (107) 92 02/07/18 20:07 98.0 80 18 119/77 (91) 93 02/07/18 09:23 97.8 73 16 133/88 (103) 98 I/O 02/07/18 02/07/18 02/07/18 02/08/18 02/08/18 02/08/18 07:00 15:00 23:00 07:00 15:00 23:00 Intake Total 600 ml Balance 600 ml Intake Oral 600 ml # Voids 4 Imaging Last Impressions Clavicle X-Ray 12/16/17 0000 Signed Impressions: Service Date/Time: December 19:51 - CONCLUSION: Distal clavicle is fractured but this appears nonacute. No acute fracture demonstrated. Jovany Hayes MD Thoracic Spine MRI 12/01/17 0000 Signed Impressions: Service Date/Time: Friday, December 01, 2017 15:10 - CONCLUSION: Negative for acute process. Vimal Taylor MD FACR Lumbar Spine MRI 12/01/17 0000 Signed Impressions: Service Date/Time: Friday, December 01, 2017 15:10 - CONCLUSION: Negative MRI of the lumbar spine. Vimal Taylor MD FACR Carotid Artery Ultrasound 11/30/17 0000 Signed Impressions: Service Date/Time: Thursday, November 30, 2017 14:34 - CONCLUSION: 1. Mild plaque with no hemodynamically significant stenosis. Vertebral artery flow antegrade. Fadi Carolina MD Cervical Spine MRI 11/28/17 0000 Signed Impressions: Service Date/Time: Tuesday, November 28, 2017 15:10 - CONCLUSION: 1. Multilevel posterior disc osteophyte complexes as described above. 2. Anterior fusion C6- 7. Dylon Haddad MD Knee X-Ray 11/02/17 0000 Signed Impressions: Service Date/Time: Thursday, November 02, 2017 18:51 - CONCLUSION: Intact right knee. Jovany Hayes MD Head CT 11/02/17 0000 Signed Impressions: Service Date/Time: Thursday, November 02, 2017 18:35 - CONCLUSION: 1. No bleed or other acute intracranial abnormality. 2. Previously seen intracranial hemorrhage has resolved. A small area of chronic encephalomalacia has developed of the right frontal lobe. 3. Chronic periventricular white matter changes are again noted. Jovany Hayes MD Breast Ultrasound 10/15/17 0000 Signed Impressions: Service Date/Time: Sunday, October 15, 2017 09:06 - CONCLUSION: Persistent subcutaneous collection at the 12:00 position of the right breast. It has slightly decreased in size since the study dated 09/23/2017 and could represent an infectious process. Consider followup to confirm resolution. Jovany Quezada MD Chest X-Ray 09/03/17 0000 Signed Impressions: Service Date/Time: Sunday, September 03, 2017 17:02 - CONCLUSION: 1. Mild edema pattern. Subsegmental basilar airspace disease most characteristic of atelectasis.. Fadi Carolina MD Cervical Spine CT 09/02/17 0000 Signed Impressions: Service Date/Time: August 12:56 - CONCLUSION: Postsurgical changes from anterior cervical plate at C6-7. No evidence of compression deformity or spondylolisthesis. Arun Regan MD Pelvis X-Ray 06/30/17 0000 Signed Impressions: Service Date/Time: Friday, June 30, 2017 12:17 - CONCLUSION: No significant change has occurred. Carlos Capps MD Objective Remarks GENERAL: Well-nourished, well-developed female in NAD. SKIN: Warm and dry. No rash. HEENT: Normocephalic. Atraumatic. Pupils equal and round. No scleral icterus. No injection or drainage. No nasal bleeding or discharge. Mucous membranes pink and moist. NECK: Supple. Trachea midline. CARDIOVASCULAR: Regular rate and rhythm. S1, S2 noted. No murmur appreciated. RESPIRATORY: No accessory muscle use. Clear to auscultation. Breath sounds equal bilaterally. GASTROINTESTINAL: Abdomen soft, non-tender, nondistended. Normoactive bowel sounds x4. No guarding noted. MUSCULOSKELETAL: No obvious deformities. Extremities without clubbing, cyanosis , or edema. NEUROLOGICAL: Awake and alert. No obvious cranial nerve deficits. Motor grossly within normal limits. 5/5 muscle strength in bilateral upper and lower extremities. Normal speech. PSYCHIATRIC: Appropriate mood and affect. A/P Problem List: (1) Alcohol dependence in controlled environment ICD Code: F10.20 - Alcohol dependence, uncomplicated Status: Chronic (2) Facial injury ICD Code: S09.93XA - Unspecified injury of face, initial encounter Status: Acute (3) Fall ICD Code: W19.XXXA - Unspecified fall, initial encounter Status: Acute (4) Hypertension ICD Code: I10 - Essential (primary) hypertension Status: Acute (5) Pelvic fracture ICD Code: S32.9XXA - Fracture of unspecified parts of lumbosacral spine and pelvis, initial encounter for closed fracture Status: Acute (6) C1-C2 subluxation ICD Code: S13.120A - Subluxation of C1/C2 cervical vertebrae, initial encounter Status: Acute (7) C6 cervical fracture ICD Code: S12.500A - Unspecified displaced fracture of sixth cervical vertebra , initial encounter for closed fracture Status: Acute (8) Traumatic brain injury ICD Code: S06.9X9A - Unspecified intracranial injury with loss of consciousness of unspecified duration, initial encounter Status: Acute (9) Nasal fracture ICD Code: S02.2XXA - Fracture of nasal bones, initial encounter for closed fracture Status: Acute (10) Mild neurocognitive disorder ICD Code: G31.84 - Mild cognitive impairment, so stated Status: Acute (11) Intracranial bleed ICD Code: I62.9 - Nontraumatic intracranial hemorrhage, unspecified Status: Acute Assessment and Plan Inability to care for self, unsafe discharge due to cognition PT and OT recommending supervision at home for safety. Speech therapy following the patient intermittently for cognitive evaluations. 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 Mini mental state 28/30, recommended avoid antipsychotics and benzodiazepine. Recommending Depakote or carbamazepine. Patient is medically stable for discharge, however due to underlying psychiatric/cognition patient is unsafe discharge until arrangements made by case management. Case management for discharge planning. Neuropsychiatry evaluated the patient recommended patient may improve with treatment, however indicates avoid benzodiazepines and antipsychotics Continue Prozac 40 mg daily Depakene 500 mg twice daily Seroquel 100 mg twice daily *Psychiatry indicated that the patient lacks capacity for signing AMA or to participate in discharge plan. He is recommending that he would invite the ethics committee to the hospital to have a discussion about patient care *Consulted case management for ethics committee review, awaiting response Recurrent falls. Resolved. Patient moved close to nursing station. Patient denies any neurological symptoms of weakness, paresthesia, loss of bowel or bladder control Orthostatic vitals do show drop in systolic blood pressure when standing. Improved after hydration. MRI of the neck. Multilevel degenerative changes. Mild degree of canal stenosis C5-C6, anterior fusion C6-C7 MRI of thoracic and lumbar spine do not indicate any acute abnormality Carotid ultrasound was unremarkable. Echocardiogram indicate ejection fraction 50-55% without any abnormalities Physical therapy ordered for 5 days a week Mild malnutrition, secondary to poor by mouth intake. Resolved. Albumin 2.8. Prealbumin 19. After review of weight trend, has been gaining weight. Continue Remeron. Dietary consulted who recommended ensure with breakfast lunch and there. May have muffin at bedtime, daily vitamin. Multiple traumatic injuries Patient laceration, subdural hemorrhage, ventricular hemorrhage, nasal fracture, C6 fracture, C1-C2 subluxation, C4 transverse process fracture, right rib fracture, L1 transverse process fracture, right pubic rami fracture Continue c-collar this time, however patient does not wear Follow-up cervical spine CT indicates no evidence of acute fracture. Postsurgical changes Specialist no longer following patient, patient will require outpatient follow-up if discharge Right breast abscess, Improved. Physical exam shows improvement. Ultrasound does show complex loculated collection measuring 2.4 x 1.7 x 1.8 cm. Representing breast abscess Status post Augmentin 500 mg twice daily for 10 days (end date 10/25/17). Finished Bactrim DS for 18 days Gen. surgery consulted who recommends no intervention at this time. Soft tissue ultrasound shows a improvement of the fluid collection. Outpatient mammogram performed today, 01/25/18. Benign findings, recommendations for follow-up breast ultrasound in 3 months. Hypothyroidism TSH 3.73 Free T4 0.57, free T3 1 0.47 Levothyroxine 25 g daily Monitor TSH every 6-8 weeks. TSH last checked 3.73 on January 21. Continue current treatment. Hypertension Amlodipine 10 mg daily DVT prevention Patient ambulating Sequential compression devices while in bed Records were reviewed. Awaiting case management for discharge planning, No change in current treatment plan. Discharge Planning Due to underlying psychiatric/cognition patient is unsafe discharge until arrangements made by case management. Problem Qualifiers (1) Hypertension: Qualified Codes: I10 - Essential (primary) hypertension Alyssa Means Feb 08, 2018 08:20
[2018-02-08] MEDS: QUEtiapine FUMARATE 100 MG TAB PO SCH ×2 (09:00→20:09)
[2018-02-08] MEDS: MULTIVITAMIN TAB PO SCH (09:00)
[2018-02-08] MEDS: VALPROIC ACID 250 MG CAP PO SCH ×2 (09:00→20:09)
[2018-02-08] MEDS: FLUoxetine HCL 20 MG CAP PO SCH (09:00)
[2018-02-08] MEDS: LISINOPRIL 5 MG TAB PO SCH (09:00)
[2018-02-08 20:00] VITALS: BP 126/80; PULSE 87; RESP 20; TEMP 97.1; O2SAT 94
[2018-02-08] MEDS: MIRTAZAPINE 15 MG TAB PO SCH (20:08)
[2018-02-08] MEDS: ACETAMINOPHEN 325 MG TAB PO PRN (20:10)
[2018-02-09] MEDS: LEVOTHYROXINE SODIUM 25 MCG TAB PO SCH (06:00)
[2018-02-09 08:00] VITALS: BP 130/82; PULSE 72; RESP 16; TEMP 96.5; O2SAT 96
[2018-02-09] MEDS: MULTIVITAMIN TAB PO SCH (08:21)
[2018-02-09] MEDS: FLUoxetine HCL 20 MG CAP PO SCH (08:21)
[2018-02-09] MEDS: QUEtiapine FUMARATE 100 MG TAB PO SCH ×2 (08:21→21:12)
[2018-02-09] MEDS: VALPROIC ACID 250 MG CAP PO SCH ×2 (08:21→21:12)
[2018-02-09] MEDS: LISINOPRIL 5 MG TAB PO SCH (08:24)
--- NOTE | 2018-02-09 08:51 | HHI.PR ---
Subjective Remarks Follow-up unsafe discharge due to cognition. Patient seen and examined, sitting up in bed eating breakfast. Pleasant today. Denies any pain. Denies any new acute events overnight. Has been ambulating well. Eating well, denies any abdominal pain, nausea or vomiting. Sitter is at bedside. Vital signs are stable. Afebrile. Objective Vitals Vital Signs Date Time Temp Pulse Resp B/P (MAP) Pulse Ox O2 Delivery O2 Flow Rate FiO2 02/08/18 21:10 20 02/08/18 20:00 97.1 87 20 126/80 (95) 94 I/O 02/08/18 02/08/18 02/08/18 02/09/18 02/09/18 02/09/18 07:00 15:00 23:00 07:00 15:00 23:00 Intake Total 0 ml 480 ml 240 ml 420 ml Balance 0 ml 480 ml 240 ml 420 ml Intake Oral 0 ml 480 ml 240 ml 420 ml # Voids 1 3 # Bowel Movements 2 Imaging Last Impressions Clavicle X-Ray 12/16/17 0000 Signed Impressions: Service Date/Time: December 19:51 - CONCLUSION: Distal clavicle is fractured but this appears nonacute. No acute fracture demonstrated. Jovany Hayes MD Thoracic Spine MRI 12/01/17 0000 Signed Impressions: Service Date/Time: Friday, December 01, 2017 15:10 - CONCLUSION: Negative for acute process. Vimal Taylor MD FACR Lumbar Spine MRI 12/01/17 0000 Signed Impressions: Service Date/Time: Friday, December 01, 2017 15:10 - CONCLUSION: Negative MRI of the lumbar spine. Vimal Taylor MD FACR Carotid Artery Ultrasound 11/30/17 0000 Signed Impressions: Service Date/Time: Thursday, November 30, 2017 14:34 - CONCLUSION: 1. Mild plaque with no hemodynamically significant stenosis. Vertebral artery flow antegrade. Fadi Carolina MD Cervical Spine MRI 11/28/17 0000 Signed Impressions: Service Date/Time: Tuesday, November 28, 2017 15:10 - CONCLUSION: 1. Multilevel posterior disc osteophyte complexes as described above. 2. Anterior fusion C6- 7. Dylon Haddad MD Knee X-Ray 11/02/17 0000 Signed Impressions: Service Date/Time: Thursday, November 02, 2017 18:51 - CONCLUSION: Intact right knee. Jovany Hayes MD Head CT 11/02/17 0000 Signed Impressions: Service Date/Time: Thursday, November 02, 2017 18:35 - CONCLUSION: 1. No bleed or other acute intracranial abnormality. 2. Previously seen intracranial hemorrhage has resolved. A small area of chronic encephalomalacia has developed of the right frontal lobe. 3. Chronic periventricular white matter changes are again noted. Jovany Hayes MD Breast Ultrasound 10/15/17 0000 Signed Impressions: Service Date/Time: Sunday, October 15, 2017 09:06 - CONCLUSION: Persistent subcutaneous collection at the 12:00 position of the right breast. It has slightly decreased in size since the study dated 09/23/2017 and could represent an infectious process. Consider followup to confirm resolution. Jovany Quezada MD Chest X-Ray 09/03/17 0000 Signed Impressions: Service Date/Time: Sunday, September 03, 2017 17:02 - CONCLUSION: 1. Mild edema pattern. Subsegmental basilar airspace disease most characteristic of atelectasis.. Fadi Carolina MD Cervical Spine CT 09/02/17 0000 Signed Impressions: Service Date/Time: August 12:56 - CONCLUSION: Postsurgical changes from anterior cervical plate at C6-7. No evidence of compression deformity or spondylolisthesis. Arun Regan MD Pelvis X-Ray 06/30/17 0000 Signed Impressions: Service Date/Time: Friday, June 30, 2017 12:17 - CONCLUSION: No significant change has occurred. Carlos Capps MD Objective Remarks GENERAL: Well-nourished, well-developed female in NAD. SKIN: Warm and dry. No rash. HEENT: Normocephalic. Atraumatic. Pupils equal and round. No scleral icterus. No injection or drainage. No nasal bleeding or discharge. Mucous membranes pink and moist. NECK: Supple. Trachea midline. CARDIOVASCULAR: Regular rate and rhythm. S1, S2 noted. No murmur appreciated. RESPIRATORY: No accessory muscle use. Clear to auscultation. Breath sounds equal bilaterally. GASTROINTESTINAL: Abdomen soft, non-tender, nondistended. Normoactive bowel sounds x4. No guarding noted. MUSCULOSKELETAL: No obvious deformities. Extremities without clubbing, cyanosis , or edema. NEUROLOGICAL: Awake and alert. No obvious cranial nerve deficits. Motor grossly within normal limits. 5/5 muscle strength in bilateral upper and lower extremities. Normal speech. PSYCHIATRIC: Appropriate mood and affect. A/P Problem List: (1) Alcohol dependence in controlled environment ICD Code: F10.20 - Alcohol dependence, uncomplicated Status: Chronic (2) Facial injury ICD Code: S09.93XA - Unspecified injury of face, initial encounter Status: Acute (3) Fall ICD Code: W19.XXXA - Unspecified fall, initial encounter Status: Acute (4) Hypertension ICD Code: I10 - Essential (primary) hypertension Status: Acute (5) Pelvic fracture ICD Code: S32.9XXA - Fracture of unspecified parts of lumbosacral spine and pelvis, initial encounter for closed fracture Status: Acute (6) C1-C2 subluxation ICD Code: S13.120A - Subluxation of C1/C2 cervical vertebrae, initial encounter Status: Acute (7) C6 cervical fracture ICD Code: S12.500A - Unspecified displaced fracture of sixth cervical vertebra , initial encounter for closed fracture Status: Acute (8) Traumatic brain injury ICD Code: S06.9X9A - Unspecified intracranial injury with loss of consciousness of unspecified duration, initial encounter Status: Acute (9) Nasal fracture ICD Code: S02.2XXA - Fracture of nasal bones, initial encounter for closed fracture Status: Acute (10) Mild neurocognitive disorder ICD Code: G31.84 - Mild cognitive impairment, so stated Status: Acute (11) Intracranial bleed ICD Code: I62.9 - Nontraumatic intracranial hemorrhage, unspecified Status: Acute Assessment and Plan Inability to care for self, unsafe discharge due to cognition PT and OT recommending supervision at home for safety. Speech therapy following the patient intermittently for cognitive evaluations. 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 Mini mental state 28/30, recommended avoid antipsychotics and benzodiazepine. Recommending Depakote or carbamazepine. Patient is medically stable for discharge, however due to underlying psychiatric/cognition patient is unsafe discharge until arrangements made by case management. Case management for discharge planning. Neuropsychiatry evaluated the patient recommended patient may improve with treatment, however indicates avoid benzodiazepines and antipsychotics Continue Prozac 40 mg daily Depakene 500 mg twice daily Seroquel 100 mg twice daily *Psychiatry indicated that the patient lacks capacity for signing AMA or to participate in discharge plan. He is recommending that he would invite the ethics committee to the hospital to have a discussion about patient care *Consulted case management for ethics committee review, awaiting response Recurrent falls. Resolved. Patient moved close to nursing station. Patient denies any neurological symptoms of weakness, paresthesia, loss of bowel or bladder control Orthostatic vitals do show drop in systolic blood pressure when standing. Improved after hydration. MRI of the neck. Multilevel degenerative changes. Mild degree of canal stenosis C5-C6, anterior fusion C6-C7 MRI of thoracic and lumbar spine do not indicate any acute abnormality Carotid ultrasound was unremarkable. Echocardiogram indicate ejection fraction 50-55% without any abnormalities Physical therapy ordered for 5 days a week Mild malnutrition, secondary to poor by mouth intake. Resolved. Albumin 2.8. Prealbumin 19. After review of weight trend, has been gaining weight. Continue Remeron. Dietary consulted who recommended ensure with breakfast lunch and there. May have muffin at bedtime, daily vitamin. Multiple traumatic injuries Patient laceration, subdural hemorrhage, ventricular hemorrhage, nasal fracture, C6 fracture, C1-C2 subluxation, C4 transverse process fracture, right rib fracture, L1 transverse process fracture, right pubic rami fracture Continue c-collar this time, however patient does not wear Follow-up cervical spine CT indicates no evidence of acute fracture. Postsurgical changes Specialist no longer following patient, patient will require outpatient follow-up if discharge Right breast abscess, Improved. Physical exam shows improvement. Ultrasound does show complex loculated collection measuring 2.4 x 1.7 x 1.8 cm. Representing breast abscess Status post Augmentin 500 mg twice daily for 10 days (end date 10/25/17). Finished Bactrim DS for 18 days Gen. surgery consulted who recommends no intervention at this time. Soft tissue ultrasound shows a improvement of the fluid collection. Outpatient mammogram performed today, 01/25/18. Benign findings, recommendations for follow-up breast ultrasound in 3 months. Hypothyroidism TSH 3.73 Free T4 0.57, free T3 1 0.47 Levothyroxine 25 g daily Monitor TSH every 6-8 weeks. TSH last checked 3.73 on January 21. Continue current treatment. Hypertension Amlodipine 10 mg daily DVT prevention Patient ambulating Sequential compression devices while in bed Records were reviewed. Awaiting case management for discharge planning, No change in current treatment plan. Discharge Planning Due to underlying psychiatric/cognition patient is unsafe discharge until arrangements made by case management. Problem Qualifiers (1) Hypertension: Qualified Codes: I10 - Essential (primary) hypertension Alyssa Means Feb 09, 2018 08:51
[2018-02-09 20:00] VITALS: BP 125/75; PULSE 78; RESP 20; TEMP 97.7; O2SAT 93
[2018-02-09] MEDS: MIRTAZAPINE 15 MG TAB PO SCH (21:12)
[2018-02-09] MEDS: ACETAMINOPHEN 325 MG TAB PO PRN (21:13)
[2018-02-10] MEDS: LEVOTHYROXINE SODIUM 25 MCG TAB PO SCH (05:42)
[2018-02-10 08:00] VITALS: BP 116/75; PULSE 74; RESP 16; O2SAT 94
[2018-02-10] MEDS: LISINOPRIL 5 MG TAB PO SCH (09:01)
[2018-02-10] MEDS: FLUoxetine HCL 20 MG CAP PO SCH (09:01)
[2018-02-10] MEDS: MULTIVITAMIN TAB PO SCH (09:01)
[2018-02-10] MEDS: QUEtiapine FUMARATE 100 MG TAB PO SCH ×2 (09:02→20:10)
[2018-02-10] MEDS: VALPROIC ACID 250 MG CAP PO SCH ×2 (09:02→20:11)
--- NOTE | 2018-02-10 09:29 | HHI.PR ---
Subjective Remarks Follow-up unsafe discharge due to cognition. Patient seen and examined, sitting up in bed comfortably in no apparent distress. No reports of any acute events overnight. Vital signs are stable. Afebrile. No change in clinical condition. Objective Vitals Vital Signs Date Time Temp Pulse Resp B/P (MAP) Pulse Ox O2 Delivery O2 Flow Rate FiO2 02/10/18 08:00 74 16 116/75 (89) 94 02/09/18 20:00 97.7 78 20 125/75 (92) 93 I/O 02/09/18 02/09/18 02/09/18 02/10/18 02/10/18 02/10/18 07:00 15:00 23:00 07:00 15:00 23:00 Intake Total 420 ml 800 ml 240 ml Output Total 3 ml Balance 420 ml 797 ml 240 ml Intake Oral 420 ml 800 ml 240 ml Output Urine Total 3 ml # Voids 3 1 # Bowel Movements 2 Imaging Last Impressions Clavicle X-Ray 12/16/17 0000 Signed Impressions: Service Date/Time: December 19:51 - CONCLUSION: Distal clavicle is fractured but this appears nonacute. No acute fracture demonstrated. Jovany Hayes MD Thoracic Spine MRI 12/01/17 0000 Signed Impressions: Service Date/Time: Friday, December 01, 2017 15:10 - CONCLUSION: Negative for acute process. Vimal Taylor MD FACR Lumbar Spine MRI 12/01/17 0000 Signed Impressions: Service Date/Time: Friday, December 01, 2017 15:10 - CONCLUSION: Negative MRI of the lumbar spine. Vimal Taylor MD FACR Carotid Artery Ultrasound 11/30/17 0000 Signed Impressions: Service Date/Time: Thursday, November 30, 2017 14:34 - CONCLUSION: 1. Mild plaque with no hemodynamically significant stenosis. Vertebral artery flow antegrade. Fadi Carolina MD Cervical Spine MRI 11/28/17 0000 Signed Impressions: Service Date/Time: Tuesday, November 28, 2017 15:10 - CONCLUSION: 1. Multilevel posterior disc osteophyte complexes as described above. 2. Anterior fusion C6- 7. Dylon Haddad MD Knee X-Ray 11/02/17 0000 Signed Impressions: Service Date/Time: Thursday, November 02, 2017 18:51 - CONCLUSION: Intact right knee. Jovany Hayes MD Head CT 11/02/17 0000 Signed Impressions: Service Date/Time: Thursday, November 02, 2017 18:35 - CONCLUSION: 1. No bleed or other acute intracranial abnormality. 2. Previously seen intracranial hemorrhage has resolved. A small area of chronic encephalomalacia has developed of the right frontal lobe. 3. Chronic periventricular white matter changes are again noted. Jovany Hayes MD Breast Ultrasound 10/15/17 0000 Signed Impressions: Service Date/Time: Sunday, October 15, 2017 09:06 - CONCLUSION: Persistent subcutaneous collection at the 12:00 position of the right breast. It has slightly decreased in size since the study dated 09/23/2017 and could represent an infectious process. Consider followup to confirm resolution. Jovany Quezada MD Chest X-Ray 09/03/17 0000 Signed Impressions: Service Date/Time: Sunday, September 03, 2017 17:02 - CONCLUSION: 1. Mild edema pattern. Subsegmental basilar airspace disease most characteristic of atelectasis.. Fadi Carolina MD Cervical Spine CT 09/02/17 0000 Signed Impressions: Service Date/Time: August 12:56 - CONCLUSION: Postsurgical changes from anterior cervical plate at C6-7. No evidence of compression deformity or spondylolisthesis. Arun Regan MD Pelvis X-Ray 06/30/17 0000 Signed Impressions: Service Date/Time: Friday, June 30, 2017 12:17 - CONCLUSION: No significant change has occurred. Carlos Capps MD Objective Remarks GENERAL: Well-nourished, well-developed female in [place]. SKIN: Warm and dry. No rash. HEENT: Normocephalic. Atraumatic. Pupils equal and round. No scleral icterus. No injection or drainage. No nasal bleeding or discharge. Mucous membranes pink and moist. NECK: Supple. Trachea midline. CARDIOVASCULAR: Regular rate and rhythm. S1, S2 noted. No murmur appreciated. RESPIRATORY: No accessory muscle use. Clear to auscultation. Breath sounds equal bilaterally. GASTROINTESTINAL: Abdomen soft, non-tender, nondistended. Normoactive bowel sounds x4. No guarding noted. MUSCULOSKELETAL: No obvious deformities. Extremities without clubbing, cyanosis , or edema. NEUROLOGICAL: Awake and alert. No obvious cranial nerve deficits. Motor grossly within normal limits. 5/5 muscle strength in bilateral upper and lower extremities. Normal speech. PSYCHIATRIC: Appropriate mood and affect. A/P Problem List: (1) Alcohol dependence in controlled environment ICD Code: F10.20 - Alcohol dependence, uncomplicated Status: Chronic (2) Facial injury ICD Code: S09.93XA - Unspecified injury of face, initial encounter Status: Acute (3) Fall ICD Code: W19.XXXA - Unspecified fall, initial encounter Status: Acute (4) Hypertension ICD Code: I10 - Essential (primary) hypertension Status: Acute (5) Pelvic fracture ICD Code: S32.9XXA - Fracture of unspecified parts of lumbosacral spine and pelvis, initial encounter for closed fracture Status: Acute (6) C1-C2 subluxation ICD Code: S13.120A - Subluxation of C1/C2 cervical vertebrae, initial encounter Status: Acute (7) C6 cervical fracture ICD Code: S12.500A - Unspecified displaced fracture of sixth cervical vertebra , initial encounter for closed fracture Status: Acute (8) Traumatic brain injury ICD Code: S06.9X9A - Unspecified intracranial injury with loss of consciousness of unspecified duration, initial encounter Status: Acute (9) Nasal fracture ICD Code: S02.2XXA - Fracture of nasal bones, initial encounter for closed fracture Status: Acute (10) Mild neurocognitive disorder ICD Code: G31.84 - Mild cognitive impairment, so stated Status: Acute (11) Intracranial bleed ICD Code: I62.9 - Nontraumatic intracranial hemorrhage, unspecified Status: Acute Assessment and Plan Inability to care for self, unsafe discharge due to cognition PT and OT recommending supervision at home for safety. Speech therapy following the patient intermittently for cognitive evaluations. 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 Mini mental state 28/30, recommended avoid antipsychotics and benzodiazepine. Recommending Depakote or carbamazepine. Patient is medically stable for discharge, however due to underlying psychiatric/cognition patient is unsafe discharge until arrangements made by case management. Case management for discharge planning. Neuropsychiatry evaluated the patient recommended patient may improve with treatment, however indicates avoid benzodiazepines and antipsychotics Continue Prozac 40 mg daily Depakene 500 mg twice daily Seroquel 100 mg twice daily *Psychiatry indicated that the patient lacks capacity for signing AMA or to participate in discharge plan. He is recommending that he would invite the ethics committee to the hospital to have a discussion about patient care *Consulted case management for ethics committee review, awaiting response Recurrent falls. Resolved. Patient moved close to nursing station. Patient denies any neurological symptoms of weakness, paresthesia, loss of bowel or bladder control Orthostatic vitals do show drop in systolic blood pressure when standing. Improved after hydration. MRI of the neck. Multilevel degenerative changes. Mild degree of canal stenosis C5-C6, anterior fusion C6-C7 MRI of thoracic and lumbar spine do not indicate any acute abnormality Carotid ultrasound was unremarkable. Echocardiogram indicate ejection fraction 50-55% without any abnormalities Physical therapy ordered for 5 days a week Mild malnutrition, secondary to poor by mouth intake. Resolved. Albumin 2.8. Prealbumin 19. After review of weight trend, has been gaining weight. Continue Remeron. Dietary consulted who recommended ensure with breakfast lunch and there. May have muffin at bedtime, daily vitamin. Multiple traumatic injuries Patient laceration, subdural hemorrhage, ventricular hemorrhage, nasal fracture, C6 fracture, C1-C2 subluxation, C4 transverse process fracture, right rib fracture, L1 transverse process fracture, right pubic rami fracture Continue c-collar this time, however patient does not wear Follow-up cervical spine CT indicates no evidence of acute fracture. Postsurgical changes Specialist no longer following patient, patient will require outpatient follow-up if discharge Right breast abscess, Improved. Physical exam shows improvement. Ultrasound does show complex loculated collection measuring 2.4 x 1.7 x 1.8 cm. Representing breast abscess Status post Augmentin 500 mg twice daily for 10 days (end date 10/25/17). Finished Bactrim DS for 18 days Gen. surgery consulted who recommends no intervention at this time. Soft tissue ultrasound shows a improvement of the fluid collection. Outpatient mammogram performed today, 01/25/18. Benign findings, recommendations for follow-up breast ultrasound in 3 months. Hypothyroidism TSH 3.73 Free T4 0.57, free T3 1 0.47 Levothyroxine 25 g daily Monitor TSH every 6-8 weeks. TSH last checked 3.73 on January 21. Continue current treatment. Hypertension Amlodipine 10 mg daily DVT prevention Patient ambulating Sequential compression devices while in bed Records were reviewed. Awaiting case management for discharge planning, No change in current treatment plan. Discharge Planning Due to underlying psychiatric/cognition patient is unsafe discharge until arrangements made by case management. Problem Qualifiers (1) Hypertension: Qualified Codes: I10 - Essential (primary) hypertension Alyssa Means Feb 10, 2018 09:29
[2018-02-10] MEDS: ACETAMINOPHEN 325 MG TAB PO PRN (11:05)
[2018-02-10 20:00] VITALS: BP 130/84; PULSE 78; RESP 20; TEMP 97.6; O2SAT 95
[2018-02-10] MEDS: MIRTAZAPINE 15 MG TAB PO SCH (20:11)
[2018-02-11] MEDS: ACETAMINOPHEN 325 MG TAB PO PRN ×3 (01:03→23:39)
[2018-02-11] MEDS: LEVOTHYROXINE SODIUM 25 MCG TAB PO SCH (06:45)
--- NOTE | 2018-02-11 08:32 | HHI.PR ---
Subjective Remarks Follow-up unsafe discharge due to cognition. Patient seen and examined, lying in bed comfortably. No acute events. Denies any pain. Vital signs are stable. Afebrile. Objective Vitals Vital Signs Date Time Temp Pulse Resp B/P (MAP) Pulse Ox O2 Delivery O2 Flow Rate FiO2 02/10/18 20:00 97.6 78 20 130/84 (99) 95 I/O 02/10/18 02/10/18 02/10/18 02/11/18 02/11/18 02/11/18 07:00 15:00 23:00 07:00 15:00 23:00 Intake Total 240 ml 240 ml Balance 240 ml 240 ml Intake Oral 240 ml 240 ml # Voids 1 Imaging Last Impressions Clavicle X-Ray 12/16/17 0000 Signed Impressions: Service Date/Time: December 19:51 - CONCLUSION: Distal clavicle is fractured but this appears nonacute. No acute fracture demonstrated. Jovany Hayes MD Thoracic Spine MRI 12/01/17 0000 Signed Impressions: Service Date/Time: Friday, December 01, 2017 15:10 - CONCLUSION: Negative for acute process. Vimal Taylor MD FACR Lumbar Spine MRI 12/01/17 0000 Signed Impressions: Service Date/Time: Friday, December 01, 2017 15:10 - CONCLUSION: Negative MRI of the lumbar spine. Vimal Taylor MD FACR Carotid Artery Ultrasound 11/30/17 0000 Signed Impressions: Service Date/Time: Thursday, November 30, 2017 14:34 - CONCLUSION: 1. Mild plaque with no hemodynamically significant stenosis. Vertebral artery flow antegrade. Fadi Carolina MD Cervical Spine MRI 11/28/17 0000 Signed Impressions: Service Date/Time: Tuesday, November 28, 2017 15:10 - CONCLUSION: 1. Multilevel posterior disc osteophyte complexes as described above. 2. Anterior fusion C6- 7. Dylon Haddad MD Knee X-Ray 11/02/17 0000 Signed Impressions: Service Date/Time: Thursday, November 02, 2017 18:51 - CONCLUSION: Intact right knee. Jovany Hayes MD Head CT 11/02/17 0000 Signed Impressions: Service Date/Time: Thursday, November 02, 2017 18:35 - CONCLUSION: 1. No bleed or other acute intracranial abnormality. 2. Previously seen intracranial hemorrhage has resolved. A small area of chronic encephalomalacia has developed of the right frontal lobe. 3. Chronic periventricular white matter changes are again noted. Jovany Hayes MD Breast Ultrasound 10/15/17 0000 Signed Impressions: Service Date/Time: Sunday, October 15, 2017 09:06 - CONCLUSION: Persistent subcutaneous collection at the 12:00 position of the right breast. It has slightly decreased in size since the study dated 09/23/2017 and could represent an infectious process. Consider followup to confirm resolution. Jovany Quezada MD Chest X-Ray 09/03/17 0000 Signed Impressions: Service Date/Time: Sunday, September 03, 2017 17:02 - CONCLUSION: 1. Mild edema pattern. Subsegmental basilar airspace disease most characteristic of atelectasis.. Fadi Carolina MD Cervical Spine CT 09/02/17 0000 Signed Impressions: Service Date/Time: August 12:56 - CONCLUSION: Postsurgical changes from anterior cervical plate at C6-7. No evidence of compression deformity or spondylolisthesis. Arun Regan MD Pelvis X-Ray 06/30/17 0000 Signed Impressions: Service Date/Time: Friday, June 30, 2017 12:17 - CONCLUSION: No significant change has occurred. Carlos Capps MD Objective Remarks GENERAL: Well-nourished, well-developed female in [facility]. SKIN: Warm and dry. No rash. HEENT: Normocephalic. Atraumatic. Pupils equal and round. No scleral icterus. No injection or drainage. No nasal bleeding or discharge. Mucous membranes pink and moist. NECK: Supple. Trachea midline. CARDIOVASCULAR: Regular rate and rhythm. S1, S2 noted. No murmur appreciated. RESPIRATORY: No accessory muscle use. Clear to auscultation. Breath sounds equal bilaterally. GASTROINTESTINAL: Abdomen soft, non-tender, nondistended. Normoactive bowel sounds x4. No guarding noted. MUSCULOSKELETAL: No obvious deformities. Extremities without clubbing, cyanosis , or edema. NEUROLOGICAL: Awake and alert. No obvious cranial nerve deficits. Motor grossly within normal limits. 5/5 muscle strength in bilateral upper and lower extremities. Normal speech. PSYCHIATRIC: Appropriate mood and affect. A/P Problem List: (1) Alcohol dependence in controlled environment ICD Code: F10.20 - Alcohol dependence, uncomplicated Status: Chronic (2) Facial injury ICD Code: S09.93XA - Unspecified injury of face, initial encounter Status: Acute (3) Fall ICD Code: W19.XXXA - Unspecified fall, initial encounter Status: Acute (4) Hypertension ICD Code: I10 - Essential (primary) hypertension Status: Acute (5) Pelvic fracture ICD Code: S32.9XXA - Fracture of unspecified parts of lumbosacral spine and pelvis, initial encounter for closed fracture Status: Acute (6) C1-C2 subluxation ICD Code: S13.120A - Subluxation of C1/C2 cervical vertebrae, initial encounter Status: Acute (7) C6 cervical fracture ICD Code: S12.500A - Unspecified displaced fracture of sixth cervical vertebra , initial encounter for closed fracture Status: Acute (8) Traumatic brain injury ICD Code: S06.9X9A - Unspecified intracranial injury with loss of consciousness of unspecified duration, initial encounter Status: Acute (9) Nasal fracture ICD Code: S02.2XXA - Fracture of nasal bones, initial encounter for closed fracture Status: Acute (10) Mild neurocognitive disorder ICD Code: G31.84 - Mild cognitive impairment, so stated Status: Acute (11) Intracranial bleed ICD Code: I62.9 - Nontraumatic intracranial hemorrhage, unspecified Status: Acute Assessment and Plan Inability to care for self, unsafe discharge due to cognition PT and OT recommending supervision at home for safety. Speech therapy following the patient intermittently for cognitive evaluations. 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 Mini mental state 28/30, recommended avoid antipsychotics and benzodiazepine. Recommending Depakote or carbamazepine. Patient is medically stable for discharge, however due to underlying psychiatric/cognition patient is unsafe discharge until arrangements made by case management. Case management for discharge planning. Neuropsychiatry evaluated the patient recommended patient may improve with treatment, however indicates avoid benzodiazepines and antipsychotics Continue Prozac 40 mg daily Depakene 500 mg twice daily Seroquel 100 mg twice daily *Psychiatry indicated that the patient lacks capacity for signing AMA or to participate in discharge plan. He is recommending that he would invite the ethics committee to the hospital to have a discussion about patient care *Consulted case management for ethics committee review, awaiting response Recurrent falls. Resolved. Patient moved close to nursing station. Patient denies any neurological symptoms of weakness, paresthesia, loss of bowel or bladder control Orthostatic vitals do show drop in systolic blood pressure when standing. Improved after hydration. MRI of the neck. Multilevel degenerative changes. Mild degree of canal stenosis C5-C6, anterior fusion C6-C7 MRI of thoracic and lumbar spine do not indicate any acute abnormality Carotid ultrasound was unremarkable. Echocardiogram indicate ejection fraction 50-55% without any abnormalities Physical therapy ordered for 5 days a week Mild malnutrition, secondary to poor by mouth intake. Resolved. Albumin 2.8. Prealbumin 19. After review of weight trend, has been gaining weight. Continue Remeron. Dietary consulted who recommended ensure with breakfast lunch and there. May have muffin at bedtime, daily vitamin. Multiple traumatic injuries Patient laceration, subdural hemorrhage, ventricular hemorrhage, nasal fracture, C6 fracture, C1-C2 subluxation, C4 transverse process fracture, right rib fracture, L1 transverse process fracture, right pubic rami fracture Continue c-collar this time, however patient does not wear [place] [address]/24 indicates no evidence of acute fracture. Postsurgical changes Specialist no longer following patient, patient will require outpatient follow-up if discharge Right breast abscess, Improved. Physical exam shows improvement. Ultrasound does show complex loculated collection measuring 2.4 x 1.7 x 1.8 cm. Representing breast abscess Status post Augmentin 500 mg twice daily for 10 days (end date 10/25/17). Finished Bactrim DS for 18 days Gen. surgery consulted who recommends no intervention at this time. Soft tissue ultrasound shows a improvement of the fluid collection. Outpatient mammogram performed today, 01/25/18. Benign findings, recommendations for follow-up breast ultrasound in 3 months. Hypothyroidism TSH 3.73 Free T4 0.57, free T3 1 0.47 Levothyroxine 25 g daily Monitor TSH every 6-8 weeks. TSH last checked 3.73 on January 21. Continue current treatment. Hypertension Amlodipine 10 mg daily DVT prevention Patient ambulating Sequential compression devices while in bed Records were reviewed. Awaiting case management for discharge planning, No change in current treatment plan. Discharge Planning Due to underlying psychiatric/cognition patient is unsafe discharge until arrangements made by case management. Problem Qualifiers (1) Hypertension: Qualified Codes: I10 - Essential (primary) hypertension Alyssa Means Feb 11, 2018 08:32
[2018-02-11 09:00] VITALS: BP 139/91; PULSE 81; RESP 16; TEMP 98.2; O2SAT 94
[2018-02-11] MEDS: ERGOCALCIFEROL (VIT D2) 50,000 UNIT CAP PO SCH (09:47)
[2018-02-11] MEDS: QUEtiapine FUMARATE 100 MG TAB PO SCH ×2 (09:48→20:43)
[2018-02-11] MEDS: FLUoxetine HCL 20 MG CAP PO SCH (09:48)
[2018-02-11] MEDS: LISINOPRIL 5 MG TAB PO SCH (09:48)
[2018-02-11] MEDS: MULTIVITAMIN TAB PO SCH (09:48)
[2018-02-11] MEDS: VALPROIC ACID 250 MG CAP PO SCH ×2 (09:48→20:43)
[2018-02-11 12:38] VITALS: TEMP 100.3
[2018-02-11 13:34] VITALS: TEMP 99.1
--- NOTE | 2018-02-11 13:36 | RADRPT ---
EXAM DATE/TIME: 02/11/2018 13:13 [facility] COMPARISON: CHEST SINGLE AP, September 03, 2017, 17:02. INDICATIONS : Congestion & cough. MEDICAL HISTORY : Arthritis. Hypertension CVA. SURGICAL HISTORY : Fusion, cervical. ENCOUNTER: Subsequent ACUITY: 3 days PAIN SCORE: 0/10 LOCATION: chest FINDINGS: A single view of the chest demonstrates minimal atelectatic changes or scarring of the left hemidiaph ragm. Lungs are otherwise clear. Heart size is upper limits of normal. Anterior fixation of lower cer vical spine. 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 Osseous structures are otherwise inta ct. CONCLUSION: 1. Minimal atelectasis/scarring in the left base. Lungs are otherwise clear. 2. 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 Anterior fixation of lower cervical spine. Marcelino Cisneros MD on February 11, 2018 at 13:31 Board Certified Radiologist. This report was verified electronically.
[2018-02-11 13:45] LABS: AUTOMATED NEUTROPHIL # 2.9 TH/MM3 (1.8-7.7); BASOPHIL # 0.1 TH/MM3 (0-0.2); BASOPHIL % 1.4 % (0.0-2.0); EOSINOPHIL # 0.1 TH/MM3 (0-0.4); EOSINOPHIL % 1.6 % (0.0-4.0); HEMATOCRIT 35.1 % (35.0-46.0); HEMOGLOBIN 11.7 GM/DL (11.6-15.3); LYMPH % 22.1 % (9.0-44.0); MEAN CELL VOLUME 95.2 FL (80.0-100.0); MEAN CORPUSCULAR HEMOGLOBIN 31.8 PG (27.0-34.0); MEAN CORPUSCULAR HGB CONC 33.4 % (32.0-36.0); MEAN PLATELET VOLUME 6.9 FL (7.0-11.0); MONO % 13.7 % (0.0-8.0); MONOCYTE # 0.6 TH/MM3 (0-0.9); NEUT % 61.2 % (16.0-70.0); PLATELET COUNT 249 TH/MM3 (150-450); RED BLOOD COUNT 3.68 MIL/MM3 (4.00-5.30); RED CELL DISTRIBUTION WIDTH 11.9 % (11.6-17.2); WHITE BLOOD COUNT 4.7 TH/MM3 (4.0-11.0)
[2018-02-11 13:58] LABS: BICARBONATE 28.8 MEQ/L (21.0-32.0); CALCIUM 8.9 MG/DL (8.5-10.1)
[2018-02-11 14:02] LABS: CREATININE 0.8 MG/DL (0.50-1.00)
[2018-02-11 16:00] VITALS: BP 120/78; PULSE 90; RESP 16; TEMP 99.6; O2SAT 94
[2018-02-11 20:00] VITALS: BP 134/81; PULSE 81; RESP 20; TEMP 98.9; O2SAT 94
[2018-02-11] MEDS: MIRTAZAPINE 15 MG TAB PO SCH (20:43)
[2018-02-12] MEDS: LEVOTHYROXINE SODIUM 25 MCG TAB PO SCH (06:26)
[2018-02-12 07:50] VITALS: BP 147/91; PULSE 86; RESP 20; TEMP 97.8; O2SAT 94
[2018-02-12] MEDS: FLUoxetine HCL 20 MG CAP PO SCH (08:22)
[2018-02-12] MEDS: MULTIVITAMIN TAB PO SCH (08:22)
[2018-02-12] MEDS: LISINOPRIL 5 MG TAB PO SCH (08:22)
[2018-02-12] MEDS: VALPROIC ACID 250 MG CAP PO SCH ×2 (08:23→21:00)
[2018-02-12] MEDS: ACETAMINOPHEN 325 MG TAB PO PRN ×2 (08:23→18:44)
[2018-02-12] MEDS: QUEtiapine FUMARATE 100 MG TAB PO SCH ×2 (08:24→21:00)
--- NOTE | 2018-02-12 08:35 | HHI.PR ---
Subjective Remarks Follow-up unsafe discharge due to cognition. Patient seen and examined, lying in bed with complaints of congestion and cough. States she did not sleep well due to cough and headache. Did spike a temp yesterday 100.3, but has come back down. Chest x-ray reviewed nothing acute. We will continue to monitor. Supportive care. Objective Vitals Vital Signs Date Time Temp Pulse Resp B/P (MAP) Pulse Ox O2 Delivery O2 Flow Rate FiO2 02/11/18 20:00 98.9 81 20 134/81 (98) 94 02/11/18 16:00 99.6 90 16 120/78 (92) 94 02/11/18 13:34 99.1 02/11/18 12:38 100.3 02/11/18 09:00 98.2 81 16 139/91 (107) 94 I/O 02/11/18 02/11/18 02/11/18 02/12/18 02/12/18 02/12/18 07:00 15:00 23:00 07:00 15:00 23:00 Intake Total 240 ml 120 ml Balance 240 ml 120 ml Intake Oral 240 ml 120 ml # Voids 5 3 # Bowel Movements 1 Result Diagram: 02/11/18 1333 02/11/18 1333 Imaging Last Impressions Chest X-Ray 02/11/18 0000 Signed Impressions: Service Date/Time: Sunday, February 11, 2018 13:13 - CONCLUSION: 1. Minimal atelectasis/scarring in the left base. Lungs are otherwise clear. 2. 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 Anterior fixation of lower cervical spine. Marcelino Cisneros MD Clavicle X-Ray 12/16/17 0000 Signed Impressions: Service Date/Time: December 19:51 - CONCLUSION: Distal clavicle is fractured but this appears nonacute. No acute fracture demonstrated. Jovany Hayes MD Thoracic Spine MRI 12/01/17 0000 Signed Impressions: Service Date/Time: Friday, December 01, 2017 15:10 - CONCLUSION: Negative for acute process. Vimal Taylor MD FACR Lumbar Spine MRI 12/01/17 0000 Signed Impressions: Service Date/Time: Friday, December 01, 2017 15:10 - CONCLUSION: Negative MRI of the lumbar spine. Vimal Taylor MD FACR Carotid Artery Ultrasound 11/30/17 0000 Signed Impressions: Service Date/Time: Thursday, November 30, 2017 14:34 - CONCLUSION: 1. Mild plaque with no hemodynamically significant stenosis. Vertebral artery flow antegrade. Fadi Carolina MD Cervical Spine MRI 11/28/17 0000 Signed Impressions: Service Date/Time: Tuesday, November 28, 2017 15:10 - CONCLUSION: 1. Multilevel posterior disc osteophyte complexes as described above. 2. Anterior fusion C6- 7. Dylon Haddad MD Knee X-Ray 11/02/17 0000 Signed Impressions: Service Date/Time: Thursday, November 02, 2017 18:51 - CONCLUSION: Intact right knee. Jovany Hayes MD Head CT 11/02/17 0000 Signed Impressions: Service Date/Time: Thursday, November 02, 2017 18:35 - CONCLUSION: 1. No bleed or other acute intracranial abnormality. 2. Previously seen intracranial hemorrhage has resolved. A small area of chronic encephalomalacia has developed of the right frontal lobe. 3. Chronic periventricular white matter changes are again noted. Jovany Hayes MD Breast Ultrasound 10/15/17 0000 Signed Impressions: Service Date/Time: Sunday, October 15, 2017 09:06 - CONCLUSION: Persistent subcutaneous collection at the 12:00 position of the right breast. It has slightly decreased in size since the study dated 09/23/2017 and could represent an infectious process. Consider followup to confirm resolution. Jovany Quezada MD Cervical Spine CT 09/02/17 0000 Signed Impressions: Service Date/Time: August 12:56 - CONCLUSION: Postsurgical changes from anterior cervical plate at C6-7. No evidence of compression deformity or spondylolisthesis. Arun Regan MD Pelvis X-Ray 06/30/17 0000 Signed Impressions: Service Date/Time: Friday, June 30, 2017 12:17 - CONCLUSION: No significant change has occurred. aCrlos Capps MD Objective Remarks GENERAL: Well-nourished, well-developed female in NAD. SKIN: Warm and dry. No rash. HEENT: Normocephalic. Atraumatic. Pupils equal and round. No scleral icterus. No injection or drainage. No nasal bleeding or discharge. Mucous membranes pink and moist. NECK: Supple. Trachea midline. CARDIOVASCULAR: Regular rate and rhythm. S1, S2 noted. No murmur appreciated. RESPIRATORY: No accessory muscle use. Clear to auscultation. Breath sounds equal bilaterally. GASTROINTESTINAL: Abdomen soft, non-tender, nondistended. Normoactive bowel sounds x4. No guarding noted. MUSCULOSKELETAL: No obvious deformities. Extremities without clubbing, cyanosis , or edema. NEUROLOGICAL: Awake and alert. No obvious cranial nerve deficits. Motor grossly within normal limits. 5/5 muscle strength in bilateral upper and lower extremities. Normal speech. PSYCHIATRIC: Appropriate mood and affect. A/P Problem List: (1) Alcohol dependence in controlled environment ICD Code: F10.20 - Alcohol dependence, uncomplicated Status: Chronic (2) Facial injury ICD Code: S09.93XA - Unspecified injury of face, initial encounter Status: Acute (3) Fall ICD Code: W19.XXXA - Unspecified fall, initial encounter Status: Acute (4) Hypertension ICD Code: I10 - Essential (primary) hypertension Status: Acute (5) Pelvic fracture ICD Code: S32.9XXA - Fracture of unspecified parts of lumbosacral spine and pelvis, initial encounter for closed fracture Status: Acute (6) C1-C2 subluxation ICD Code: S13.120A - Subluxation of C1/C2 cervical vertebrae, initial encounter Status: Acute (7) C6 cervical fracture ICD Code: S12.500A - Unspecified displaced fracture of sixth cervical vertebra , initial encounter for closed fracture Status: Acute (8) Traumatic brain injury ICD Code: S06.9X9A - Unspecified intracranial injury with loss of consciousness of unspecified duration, initial encounter Status: Acute (9) Nasal fracture ICD Code: S02.2XXA - Fracture of nasal bones, initial encounter for closed fracture Status: Acute (10) Mild neurocognitive disorder ICD Code: G31.84 - Mild cognitive impairment, so stated Status: Acute (11) Intracranial bleed ICD Code: I62.9 - Nontraumatic intracranial hemorrhage, unspecified Status: Acute Assessment and Plan Inability to care for self, unsafe discharge due to cognition PT and OT recommending supervision at home for safety. Speech therapy following the patient intermittently for cognitive evaluations. 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 Mini mental state 28/30, recommended avoid antipsychotics and benzodiazepine. Recommending Depakote or carbamazepine. Patient is medically stable for discharge, however due to underlying psychiatric/cognition patient is unsafe discharge until arrangements made by case management. Case management for discharge planning. Neuropsychiatry evaluated the patient recommended patient may improve with treatment, however indicates avoid benzodiazepines and antipsychotics Continue Prozac 40 mg daily Depakene 500 mg twice daily Seroquel 100 mg twice daily *Psychiatry indicated that the patient lacks capacity for signing AMA or to participate in discharge plan. He is recommending that he would invite the ethics committee to the hospital to have a discussion about patient care *Consulted case management for ethics committee review, awaiting response Upper respiratory infection with congestion: Chest x-ray reviewed showing clear lungs. Nothing acute. Labs drawn, no leukocytosis. Temperature 100.3 overnight. Has since trended down. Acetaminophen as needed. Robitussin for cough. Recurrent falls. Resolved. Patient moved close to nursing station. Patient denies any neurological symptoms of weakness, paresthesia, loss of bowel or bladder control Orthostatic vitals do show drop in systolic blood pressure when standing. Improved after hydration. MRI of the neck. Multilevel degenerative changes. Mild degree of canal stenosis C5-C6, anterior fusion C6-C7 MRI of thoracic and lumbar spine do not indicate any acute abnormality Carotid ultrasound was unremarkable. Echocardiogram indicate ejection fraction 50-55% without any abnormalities Physical therapy ordered for 5 days a week Mild malnutrition, secondary to poor by mouth intake. Resolved. Albumin 2.8. Prealbumin 19. After review of weight trend, has been gaining weight. Continue Remeron. Dietary consulted who recommended ensure with breakfast lunch and there. May have muffin at bedtime, daily vitamin. Multiple traumatic injuries Patient laceration, subdural hemorrhage, ventricular hemorrhage, nasal fracture, C6 fracture, C1-C2 subluxation, C4 transverse process fracture, right rib fracture, L1 transverse process fracture, right pubic rami fracture Continue c-collar this time, however patient does not wear Follow-up cervical spine CT indicates no evidence of acute fracture. Postsurgical changes Specialist no longer following patient, patient will require outpatient follow-up if discharge Right breast abscess, Improved. Physical exam shows improvement. Ultrasound does show complex loculated collection measuring 2.4 x 1.7 x 1.8 cm. Representing breast abscess Status post Augmentin 500 mg twice daily for 10 days (end date 10/25/17). Finished Bactrim DS for 18 days Gen. surgery consulted who recommends no intervention at this time. Soft tissue ultrasound shows a improvement of the fluid collection. Outpatient mammogram performed today, 01/25/18. Benign findings, recommendations for follow-up breast ultrasound in 3 months. Hypothyroidism TSH 3.73 Free T4 0.57, free T3 1 0.47 Levothyroxine 25 g daily Monitor TSH every 6-8 weeks. TSH last checked 3.73 on January 21. Continue current treatment. Hypertension Amlodipine 10 mg daily DVT prevention Patient ambulating Sequential compression devices while in bed Records were reviewed. Awaiting case management for discharge planning, No change in current treatment plan. Discharge Planning Due to underlying psychiatric/cognition patient is unsafe discharge until arrangements made by case management. Problem Qualifiers (1) Hypertension: Qualified Codes: I10 - Essential (primary) hypertension Alyssa Means Feb 12, 2018 08:35
[2018-02-12] MEDS: BENZONATATE 100 MG CAP PO PRN ×2 (15:39→18:44)
[2018-02-12 20:00] VITALS: BP 137/80; PULSE 89; RESP 20; TEMP 100.3; O2SAT 93
[2018-02-12] MEDS: MIRTAZAPINE 15 MG TAB PO SCH (21:00)
[2018-02-13] MEDS: ACETAMINOPHEN 325 MG TAB PO PRN ×3 (04:15→21:35)
[2018-02-13] MEDS: BENZONATATE 100 MG CAP PO PRN (04:15)
[2018-02-13] MEDS: LEVOTHYROXINE SODIUM 25 MCG TAB PO SCH (06:00)
[2018-02-13] MEDS: FLUoxetine HCL 20 MG CAP PO SCH (07:44)
[2018-02-13] MEDS: VALPROIC ACID 250 MG CAP PO SCH ×2 (07:46→22:52)
[2018-02-13] MEDS: LISINOPRIL 5 MG TAB PO SCH (07:46)
[2018-02-13] MEDS: QUEtiapine FUMARATE 100 MG TAB PO SCH ×2 (07:47→21:35)
[2018-02-13] MEDS: MULTIVITAMIN TAB PO SCH (07:47)
[2018-02-13 07:50] VITALS: BP 133/85; PULSE 84; RESP 20; TEMP 98.2; O2SAT 92
--- NOTE | 2018-02-13 10:08 | HHI.PR ---
Subjective Remarks Follow-up unsafe discharge due to cognition. Patient seen and examined, lying in bed comfortably in no apparent distress. No reports of any acute events overnight. Patient cough relieved with medication regimen. Patient states she is feeling much improved. Still some congestion in her chest, nonproductive cough. Afebrile. Vital signs are stable. Objective Vitals Vital Signs Date Time Temp Pulse Resp B/P (MAP) Pulse Ox O2 Delivery O2 Flow Rate FiO2 02/13/18 07:50 98.2 84 20 133/85 (101) 92 02/12/18 20:00 100.3 89 20 137/80 (99) 93 I/O 02/12/18 02/12/18 02/12/18 02/13/18 02/13/18 02/13/18 06:59 14:59 22:59 06:59 14:59 22:59 Intake Total 120 ml 520 ml 480 ml Balance 120 ml 520 ml 480 ml Intake Oral 120 ml 520 ml 480 ml # Voids 3 4 3 # Bowel Movements 1 1 Result Diagram: 02/11/18 1333 02/11/18 1333 Imaging Last Impressions Chest X-Ray 02/11/18 0000 Signed Impressions: Service Date/Time: Sunday, February 11, 2018 13:13 - CONCLUSION: 1. Minimal atelectasis/scarring in the left base. Lungs are otherwise clear. 2. 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 Anterior fixation of lower cervical spine. Marcelino Cisneros MD Clavicle X-Ray 12/16/17 0000 Signed Impressions: Service Date/Time: December 19:51 - CONCLUSION: Distal clavicle is fractured but this appears nonacute. No acute fracture demonstrated. Jovany Hayes MD Thoracic Spine MRI 12/01/17 0000 Signed Impressions: Service Date/Time: Friday, December 01, 2017 15:10 - CONCLUSION: Negative for acute process. Vimal Taylor MD FACR Lumbar Spine MRI 12/01/17 0000 Signed Impressions: Service Date/Time: Friday, December 01, 2017 15:10 - CONCLUSION: Negative MRI of the lumbar spine. Vimal Taylor MD FACR Carotid Artery Ultrasound 11/30/17 0000 Signed Impressions: Service Date/Time: Thursday, November 30, 2017 14:34 - CONCLUSION: 1. Mild plaque with no hemodynamically significant stenosis. Vertebral artery flow antegrade. Fadi Carolina MD Cervical Spine MRI 11/28/17 0000 Signed Impressions: Service Date/Time: Tuesday, November 28, 2017 15:10 - CONCLUSION: 1. Multilevel posterior disc osteophyte complexes as described above. 2. Anterior fusion C6- 7. Dylon Haddad MD Knee X-Ray 11/02/17 0000 Signed Impressions: Service Date/Time: Thursday, November 02, 2017 18:51 - CONCLUSION: Intact right knee. Jovany Hayes MD Head CT 11/02/17 0000 Signed Impressions: Service Date/Time: Thursday, November 02, 2017 18:35 - CONCLUSION: 1. No bleed or other acute intracranial abnormality. 2. Previously seen intracranial hemorrhage has resolved. A small area of chronic encephalomalacia has developed of the right frontal lobe. 3. Chronic periventricular white matter changes are again noted. Jovany Hayes MD Breast Ultrasound 10/15/17 0000 Signed Impressions: Service Date/Time: Sunday, October 15, 2017 09:06 - CONCLUSION: Persistent subcutaneous collection at the 12:00 position of the right breast. It has slightly decreased in size since the study dated 09/23/2017 and could represent an infectious process. Consider followup to confirm resolution. Jovany Quezada MD Cervical Spine CT 09/02/17 0000 Signed Impressions: Service Date/Time: August 12:56 - CONCLUSION: Postsurgical changes from anterior cervical plate at C6-7. No evidence of compression deformity or spondylolisthesis. Arun Regan MD Pelvis X-Ray 06/30/17 0000 Signed Impressions: Service Date/Time: Friday, June 30, 2017 12:17 - CONCLUSION: No significant change has occurred. Carlos Capps MD Objective Remarks GENERAL: Well-nourished, well-developed female in NAD. SKIN: Warm and dry. No rash. HEENT: Normocephalic. Atraumatic. Pupils equal and round. No scleral icterus. No injection or drainage. No nasal bleeding or discharge. Mucous membranes pink and moist. NECK: Supple. Trachea midline. CARDIOVASCULAR: Regular rate and rhythm. S1, S2 noted. No murmur appreciated. RESPIRATORY: No accessory muscle use. Clear to auscultation. Breath sounds equal bilaterally. GASTROINTESTINAL: Abdomen soft, non-tender, nondistended. Normoactive bowel sounds x4. No guarding noted. MUSCULOSKELETAL: No obvious deformities. Extremities without clubbing, cyanosis , or edema. NEUROLOGICAL: Awake and alert. No obvious cranial nerve deficits. Motor grossly within normal limits. 5/5 muscle strength in bilateral upper and lower extremities. Normal speech. PSYCHIATRIC: Appropriate mood and affect. A/P Problem List: (1) Alcohol dependence in controlled environment ICD Code: F10.20 - Alcohol dependence, uncomplicated Status: Chronic (2) Facial injury ICD Code: S09.93XA - Unspecified injury of face, initial encounter Status: Acute (3) Fall ICD Code: W19.XXXA - Unspecified fall, initial encounter Status: Acute (4) Hypertension ICD Code: I10 - Essential (primary) hypertension Status: Acute (5) Pelvic fracture ICD Code: S32.9XXA - Fracture of unspecified parts of lumbosacral spine and pelvis, initial encounter for closed fracture Status: Acute (6) C1-C2 subluxation ICD Code: S13.120A - Subluxation of C1/C2 cervical vertebrae, initial encounter Status: Acute (7) C6 cervical fracture ICD Code: S12.500A - Unspecified displaced fracture of sixth cervical vertebra , initial encounter for closed fracture Status: Acute (8) Traumatic brain injury ICD Code: S06.9X9A - Unspecified intracranial injury with loss of consciousness of unspecified duration, initial encounter Status: Acute (9) Nasal fracture ICD Code: S02.2XXA - Fracture of nasal bones, initial encounter for closed fracture Status: Acute (10) Mild neurocognitive disorder ICD Code: G31.84 - Mild cognitive impairment, so stated Status: Acute (11) Intracranial bleed ICD Code: I62.9 - Nontraumatic intracranial hemorrhage, unspecified Status: Acute Assessment and Plan Inability to care for self, unsafe discharge due to cognition PT and OT recommending supervision at home for safety. Speech therapy following the patient intermittently for cognitive evaluations. 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 Mini mental state 28/30, recommended avoid antipsychotics and benzodiazepine. Recommending Depakote or carbamazepine. Patient is medically stable for discharge, however due to underlying psychiatric/cognition patient is unsafe discharge until arrangements made by case management. Case management for discharge planning. Neuropsychiatry evaluated the patient recommended patient may improve with treatment, however indicates avoid benzodiazepines and antipsychotics Continue Prozac 40 mg daily Depakene 500 mg twice daily Seroquel 100 mg twice daily *Psychiatry indicated that the patient lacks capacity for signing AMA or to participate in discharge plan. He is recommending that he would invite the ethics committee to the hospital to have a discussion about patient care *Consulted case management for ethics committee review, awaiting response Upper respiratory infection with congestion: Improving. Chest x-ray reviewed showing clear lungs. Nothing acute. Labs drawn, no leukocytosis. Temperature 100.3. No further fever. Acetaminophen as needed. Cough medication. Recurrent falls. Resolved. Patient moved close to nursing station. Patient denies any neurological symptoms of weakness, paresthesia, loss of bowel or bladder control Orthostatic vitals do show drop in systolic blood pressure when standing. Improved after hydration. MRI of the neck. Multilevel degenerative changes. Mild degree of canal stenosis C5-C6, anterior fusion C6-C7 MRI of thoracic and lumbar spine do not indicate any acute abnormality Carotid ultrasound was unremarkable. Echocardiogram indicate ejection fraction 50-55% without any abnormalities Physical therapy ordered for 5 days a week Mild malnutrition, secondary to poor by mouth intake. Resolved. Albumin 2.8. Prealbumin 19. After review of weight trend, has been gaining weight. Continue Remeron. Dietary consulted who recommended ensure with breakfast lunch and there. May have muffin at bedtime, daily vitamin. Multiple traumatic injuries Patient laceration, subdural hemorrhage, ventricular hemorrhage, nasal fracture, C6 fracture, C1-C2 subluxation, C4 transverse process fracture, right rib fracture, L1 transverse process fracture, right pubic rami fracture Continue c-collar this time, however patient does not wear Follow-up cervical spine CT indicates no evidence of acute fracture. Postsurgical changes Specialist no longer following patient, patient will require outpatient follow-up if discharge Right breast abscess, Improved. Physical exam shows improvement. Ultrasound does show complex loculated collection measuring 2.4 x 1.7 x 1.8 cm. Representing breast abscess Status post Augmentin 500 mg twice daily for 10 days (end date 10/25/17). Finished Bactrim DS for 18 days Gen. surgery consulted who recommends no intervention at this time. Soft tissue ultrasound shows a improvement of the fluid collection. Outpatient mammogram performed today, 01/25/18. Benign findings, recommendations for follow-up breast ultrasound in 3 months. Hypothyroidism TSH 3.73 Free T4 0.57, free T3 1 0.47 Levothyroxine 25 g daily Monitor TSH every 6-8 weeks. TSH last checked 3.73 on January 21. Continue current treatment. Hypertension Amlodipine 10 mg daily DVT prevention Patient ambulating Sequential compression devices while in bed Records were reviewed. Awaiting case management for discharge planning, No change in current treatment plan. Discharge Planning Due to underlying psychiatric/cognition patient is unsafe discharge until arrangements made by case management. Problem Qualifiers (1) Hypertension: Qualified Codes: I10 - Essential (primary) hypertension Alyssa Means Feb 13, 2018 10:08
[2018-02-13 20:00] VITALS: BP 132/75; PULSE 75; RESP 19; TEMP 98.7; O2SAT 95
[2018-02-13] MEDS: MIRTAZAPINE 15 MG TAB PO SCH (21:35)
[2018-02-14] MEDS: LEVOTHYROXINE SODIUM 25 MCG TAB PO SCH (06:21)
[2018-02-14 08:00] VITALS: BP 140/94; PULSE 76; RESP 16; TEMP 98.5; O2SAT 92
[2018-02-14] MEDS: MULTIVITAMIN TAB PO SCH (08:38)
[2018-02-14] MEDS: FLUoxetine HCL 20 MG CAP PO SCH (08:38)
[2018-02-14] MEDS: VALPROIC ACID 250 MG CAP PO SCH ×2 (08:39→21:11)
[2018-02-14] MEDS: LISINOPRIL 5 MG TAB PO SCH (08:39)
[2018-02-14] MEDS: QUEtiapine FUMARATE 100 MG TAB PO SCH ×2 (08:41→21:11)
--- NOTE | 2018-02-14 09:00 | HHI.PR ---
Subjective Remarks Patient seen and examined today for follow-up on unsafe discharge due to cognition. Patient denies any new complaints. Patient is doing well. Patient remains afebrile. Objective Vitals Vital Signs Date Time Temp Pulse Resp B/P (MAP) Pulse Ox O2 Delivery O2 Flow Rate FiO2 02/14/18 08:00 98.5 76 16 140/94 (109) 92 02/13/18 20:00 98.7 75 19 132/75 (94) 95 I/O 02/13/18 02/13/18 02/13/18 02/14/18 02/14/18 02/14/18 07:00 15:00 23:00 07:00 15:00 23:00 Intake Total 480 ml 150 ml 240 ml Balance 480 ml 150 ml 240 ml Intake Oral 480 ml 150 ml 240 ml # Voids 3 9 2 # Bowel Movements 1 4 Result Diagram: 02/11/18 1333 02/11/18 1333 Objective Remarks GENERAL: Well-developed, well-nourished, in no acute distress. alert and orientation waxes and wanes daily HEENT: Head is normocephalic without any lesions or masses noted. Facial features are symmetric. Eyes: Extraocular muscles are intact. Conjunctivae were clear. CARDIAC: Regular rhythm, regular rate. S1/S2 are heard. No murmurs gallops or rubs. LUNGS: Clear to auscultation bilaterally. No wheeze, rhonchi or rales. No use of accessory muscles on inspiration or expiration. EXTREMITIES: No edema, pulses are equal bilaterally. No cyanosis or clubbing NEUROLOGY: Mood and affect appear appropriate. Cranial nerves II through XII grossly intact moving all extremities, speech is clear Urinary Catheter: No Vascular Central Line Catheter: No A/P Assessment and Plan Inability to care for self, unsafe discharge due to cognition Initially he was indicated patient cannot walk, patient is walking at this time, PT and OT recommending supervision at home for safety Speech therapy following the patient intermittently for cognitive evaluations. 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 MIni mental state 28/30, recommended avoid antipsychotics and benzodiazepine. Recommending Depakote or carbamazepine Patient is medically stable for discharge, however due to underlying psychiatric/cognition patient is unsafe discharge until arrangements made by case management Case management for discharge planning Neuropsychiatry evaluated the patient recommended patient may improve with treatment, however indicates avoid benzodiazepines and antipsychotics Continue Prozac 40 mg daily Depakene 500 mg twice daily Seroquel 100 mg twice daily *Discussed with psychiatry again about patient's cognition issues. He indicated that the patient lacks capacity for signing AMA or to participate in discharge plan. He is recommending that he would invite the ethics committee to the hospital to have a discussion about patient care *Consulted case management for ethics committee review, awaiting response Upper respiratory symptoms with low-grade fever, cough and congestion, improving Continue Robitussin and Tessalon Mild malnutrition, secondary to poor by mouth intake Albumin 2.8 Prealbumin 19 Continue Remeron Dietary consulted who recommended ensure with breakfast lunch and there. May have muffin at bedtime, daily vitamin Recurrent falls, Patient moved close to nursing station Patient does state that she is having neck pain Patient denies any neurological symptoms of weakness, paresthesia, loss of bowel or bladder control Orthostatic vitals do show drop in systolic blood pressure when standing. Improved after hydration Status post 2 L normal saline and continue monitor orthostatic vitals MRI of the neck. Multilevel degenerative changes. Mild degree of canal stenosis C5-C6, anterior fusion C6-C7 MRI of thoracic and lumbar spine do not indicate any acute abnormality Clavicle x-ray shows nonacute distal clavicle fracture. Carotid ultrasound was unremarkable Echocardiogram indicate ejection fraction 50-55% without any abnormalities Physical therapy ordered for 5 days a week Multiple traumatic injuries, Patient laceration, subdural hemorrhage, ventricular hemorrhage, nasal fracture, C6 fracture, C1-C2 subluxation, C4 transverse process fracture, right rib fracture, L1 transverse process fracture, right pubic rami fracture Continue c-collar this time, however patient does not wear Follow-up cervical spine CT 1026/17 indicates no evidence of acute fracture. Postsurgical changes Specialist no longer following patient, patient will require outpatient follow-up if discharge Right breast abscess, improved Physical exam patient does have a erythematous area with drainage Ultrasound does show complex loculated collection measuring 2.4 x 1.7 x 1.8 cm. Representing breast abscess Status post Augmentin 500 mg twice daily for 10 days and Bactrim DS for 18 days Gen. surgery consulted who recommends no intervention at this time, Soft tissue ultrasound shows a improvement of the fluid collection. Outpatient mammogram performed 03/20/18. Benign findings, recommendations for follow-up breast ultrasound in 3 months. Hypothyroidism TSH 5.11, follow-up TSH 3.73 Free T4 0.57, free T3 1 0.47 Levothyroxine 25 g daily Monitor TSH every 6-8 weeks Hypertension, improved Continue monitor blood pressure Amlodipine 10 mg daily Lisinopril 2.5 mg daily DVT prevention Patient ambulating Sequential compression devices while in bed Records are reviewed. Case management for discharge planning. No change in current treatment plan, Discharge Planning Case management for discharge planning, Conrado Mariee Feb 14, 2018 09:00
[2018-02-14 12:00] VITALS: BP 116/80; PULSE 80; RESP 16; TEMP 98; O2SAT 92
[2018-02-14] MEDS: ACETAMINOPHEN 325 MG TAB PO PRN (18:43)
[2018-02-14 20:00] VITALS: BP 126/84; PULSE 86; RESP 17; TEMP 98.3; O2SAT 92
[2018-02-14] MEDS: MIRTAZAPINE 15 MG TAB PO SCH (21:10)
[2018-02-15] MEDS: LEVOTHYROXINE SODIUM 25 MCG TAB PO SCH (05:15)
[2018-02-15 08:00] VITALS: BP 144/74; PULSE 80; RESP 14; TEMP 97.8; O2SAT 96
[2018-02-15] MEDS: VALPROIC ACID 250 MG CAP PO SCH ×2 (09:07→20:26)
[2018-02-15] MEDS: LISINOPRIL 5 MG TAB PO SCH (09:08)
[2018-02-15] MEDS: QUEtiapine FUMARATE 100 MG TAB PO SCH ×2 (09:08→20:25)
[2018-02-15] MEDS: MULTIVITAMIN TAB PO SCH (09:08)
[2018-02-15] MEDS: FLUoxetine HCL 20 MG CAP PO SCH (09:08)
--- NOTE | 2018-02-15 09:52 | HHI.PR ---
Subjective Remarks Patient seen and examined today for follow-up on unsafe discharge due to cognition. Patient doing well. She is in the hallway working with physical therapy. Vital signs are stable. Patient afebrile. Objective Vitals Vital Signs Date Time Temp Pulse Resp B/P (MAP) Pulse Ox O2 Delivery O2 Flow Rate FiO2 02/15/18 08:00 97.8 80 14 144/74 (97) 96 02/14/18 20:00 98.3 86 17 126/84 (98) 92 02/14/18 20:00 20 02/14/18 12:00 98.0 80 16 116/80 (92) 92 I/O 02/14/18 02/14/18 02/14/18 02/15/18 02/15/18 02/15/18 07:00 15:00 23:00 07:00 15:00 23:00 Intake Total 240 ml 480 ml 240 ml Balance 240 ml 480 ml 240 ml Intake Oral 240 ml 480 ml 240 ml # Voids 2 4 1 # Bowel Movements 3 Result Diagram: 02/11/18 1333 02/11/18 1333 Objective Remarks GENERAL: Well-developed, well-nourished, in no acute distress. alert and orientation waxes and wanes daily HEENT: Head is normocephalic without any lesions or masses noted. Facial features are symmetric. Eyes: Extraocular muscles are intact. Conjunctivae were clear. CARDIAC: Regular rhythm, regular rate. S1/S2 are heard. No murmurs gallops or rubs. LUNGS: Clear to auscultation bilaterally. No wheeze, rhonchi or rales. No use of accessory muscles on inspiration or expiration. EXTREMITIES: No edema, pulses are equal bilaterally. No cyanosis or clubbing NEUROLOGY: Mood and affect appear appropriate. Cranial nerves II through XII grossly intact moving all extremities, speech is clear Urinary Catheter: No Vascular Central Line Catheter: No A/P Assessment and Plan Inability to care for self, unsafe discharge due to cognition Initially he was indicated patient cannot walk, patient is walking at this time, PT and OT recommending supervision at home for safety Speech therapy following the patient intermittently for cognitive evaluations. 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 MIni mental state 28/30, recommended avoid antipsychotics and benzodiazepine. Recommending Depakote or carbamazepine Patient is medically stable for discharge, however due to underlying psychiatric/cognition patient is unsafe discharge until arrangements made by case management Case management for discharge planning Neuropsychiatry evaluated the patient recommended patient may improve with treatment, however indicates avoid benzodiazepines and antipsychotics Continue Prozac 40 mg daily Depakene 500 mg twice daily Seroquel 100 mg twice daily *Discussed with psychiatry again about patient's cognition issues. He indicated that the patient lacks capacity for signing AMA or to participate in discharge plan. He is recommending that he would invite the ethics committee to the hospital to have a discussion about patient care *Consulted case management for ethics committee review, awaiting response Upper respiratory symptoms with low-grade fever, cough and congestion, improving Continue Robitussin and Tessalon Mild malnutrition, secondary to poor by mouth intake Albumin 2.8 Prealbumin 19 Continue Remeron Dietary consulted who recommended ensure with breakfast lunch and there. May have muffin at bedtime, daily vitamin Recurrent falls, Patient moved close to nursing station Patient does state that she is having neck pain Patient denies any neurological symptoms of weakness, paresthesia, loss of bowel or bladder control Orthostatic vitals do show drop in systolic blood pressure when standing. Improved after hydration Status post 2 L normal saline and continue monitor orthostatic vitals MRI of the neck. Multilevel degenerative changes. Mild degree of canal stenosis C5-C6, anterior fusion C6-C7 MRI of thoracic and lumbar spine do not indicate any acute abnormality Clavicle x-ray shows nonacute distal clavicle fracture. Carotid ultrasound was unremarkable Echocardiogram indicate ejection fraction 50-55% without any abnormalities Physical therapy ordered for 5 days a week Multiple traumatic injuries, Patient laceration, subdural hemorrhage, ventricular hemorrhage, nasal fracture, C6 fracture, C1-C2 subluxation, C4 transverse process fracture, right rib fracture, L1 transverse process fracture, right pubic rami fracture Continue c-collar this time, however patient does not wear Follow-up cervical spine CT indicates no evidence of acute fracture. Postsurgical changes Specialist no longer following patient, patient will require outpatient follow-up if discharge Right breast abscess, improved Physical exam patient does have a erythematous area with drainage Ultrasound does show complex loculated collection measuring 2.4 x 1.7 x 1.8 cm. Representing breast abscess Status post Augmentin 500 mg twice daily for 10 days and Bactrim DS for 18 days Gen. surgery consulted who recommends no intervention at this time, Soft tissue ultrasound shows a improvement of the fluid collection. Outpatient mammogram performed 01/25/18. Benign findings, recommendations for follow-up breast ultrasound in 3 months. Hypothyroidism TSH 5.11, follow-up TSH 3.73 Free T4 0.57, free T3 1 0.47 Levothyroxine 25 g daily Monitor TSH every 6-8 weeks Hypertension, improved Continue monitor blood pressure Amlodipine 10 mg daily Lisinopril 2.5 mg daily DVT prevention Patient ambulating Sequential compression devices while in bed Records are reviewed. No change in current treatment plan, Case management for discharge planning. Discharge Planning Case management for discharge planning, Conrado Mariee Feb 15, 2018 09:52
[2018-02-15] MEDS: ACETAMINOPHEN 325 MG TAB PO PRN (10:39)
[2018-02-15 20:00] VITALS: BP 131/87; PULSE 80; RESP 20; TEMP 97.4; O2SAT 89
[2018-02-15] MEDS: BENZONATATE 100 MG CAP PO PRN (20:25)
[2018-02-15] MEDS: MIRTAZAPINE 15 MG TAB PO SCH (20:25)
[2018-02-16] MEDS: LEVOTHYROXINE SODIUM 25 MCG TAB PO SCH (06:13)
--- NOTE | 2018-02-16 08:08 | HHI.PR ---
Subjective Remarks Patient seen and examined today for follow-up on unsafe discharge due to cognition. Patient has had some upper respiratory symptoms with cough, congestion. Patient with mild decrease in O2 saturations. Patient remains afebrile. Objective Vitals Vital Signs Date Time Temp Pulse Resp B/P (MAP) Pulse Ox O2 Delivery O2 Flow Rate FiO2 02/15/18 20:00 97.4 80 20 131/87 (102) 89 02/15/18 11:57 17 I/O 02/15/18 02/15/18 02/15/18 02/16/18 02/16/18 02/16/18 07:00 15:00 23:00 07:00 15:00 23:00 Intake Total 100 ml 240 ml Balance 100 ml 240 ml Intake Oral 100 ml 240 ml # Voids 1 4 # Bowel Movements 1 Objective Remarks GENERAL: Well-developed, well-nourished, in no acute distress. alert and orientation waxes and wanes daily HEENT: Head is normocephalic without any lesions or masses noted. Facial features are symmetric. Eyes: Extraocular muscles are intact. Conjunctivae were clear. CARDIAC: Regular rhythm, regular rate. S1/S2 are heard. No murmurs gallops or rubs. LUNGS: Clear to auscultation bilaterally. No wheeze, rhonchi or rales. No use of accessory muscles on inspiration or expiration. EXTREMITIES: No edema, pulses are equal bilaterally. No cyanosis or clubbing NEUROLOGY: Mood and affect appear appropriate. Cranial nerves II through XII grossly intact moving all extremities, speech is clear Urinary Catheter: No Vascular Central Line Catheter: No A/P Assessment and Plan Inability to care for self, unsafe discharge due to cognition Initially he was indicated patient cannot walk, patient is walking at this time, PT and OT recommending supervision at home for safety Speech therapy following the patient intermittently for cognitive evaluations. 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 MIni mental state 28/30, recommended avoid antipsychotics and benzodiazepine. Recommending Depakote or carbamazepine Patient is medically stable for discharge, however due to underlying psychiatric/cognition patient is unsafe discharge until arrangements made by case management Case management for discharge planning Neuropsychiatry evaluated the patient recommended patient may improve with treatment, however indicates avoid benzodiazepines and antipsychotics Continue Prozac 40 mg daily Depakene 500 mg twice daily Seroquel 100 mg twice daily *Discussed with psychiatry again about patient's cognition issues. He indicated that the patient lacks capacity for signing AMA or to participate in discharge plan. He is recommending that he would invite the ethics committee to the hospital to have a discussion about patient care *Consulted case management for ethics committee review, awaiting response Upper respiratory symptoms with low-grade fever, cough and congestion, low O2 saturation improving Continue Robitussin and Tessalon Chest x-ray does show some atelectatic changing Encourage incentive spirometry Mild malnutrition, secondary to poor by mouth intake Albumin 2.8 Prealbumin 19 Continue Remeron Dietary consulted who recommended ensure with breakfast lunch and there. May have muffin at bedtime, daily vitamin Recurrent falls, Patient moved close to nursing station Patient does state that she is having neck pain Patient denies any neurological symptoms of weakness, paresthesia, loss of bowel or bladder control Orthostatic vitals do show drop in systolic blood pressure when standing. Improved after hydration Status post 2 L normal saline and continue monitor orthostatic vitals MRI of the neck. Multilevel degenerative changes. Mild degree of canal stenosis C5-C6, anterior fusion C6-C7 MRI of thoracic and lumbar spine do not indicate any acute abnormality Clavicle x-ray shows nonacute distal clavicle fracture. Carotid ultrasound was unremarkable Echocardiogram indicate ejection fraction 50-55% without any abnormalities Physical therapy ordered for 5 days a week Multiple traumatic injuries, Patient laceration, subdural hemorrhage, ventricular hemorrhage, nasal fracture, C6 fracture, C1-C2 subluxation, C4 transverse process fracture, right rib fracture, L1 transverse process fracture, right pubic rami fracture Continue c-collar this time, however patient does not wear Follow-up cervical spine CT 1026/17 indicates no evidence of acute fracture. Postsurgical changes Specialist no longer following patient, patient will require outpatient follow-up if discharge Right breast abscess, improved Physical exam patient does have a erythematous area with drainage Ultrasound does show complex loculated collection measuring 2.4 x 1.7 x 1.8 cm. Representing breast abscess Status post Augmentin 500 mg twice daily for 10 days and Bactrim DS for 18 days Gen. surgery consulted who recommends no intervention at this time, Soft tissue ultrasound shows a improvement of the fluid collection. Outpatient mammogram performed 01/25/18. Benign findings, recommendations for follow-up breast ultrasound in 3 months. Hypothyroidism TSH 5.11, follow-up TSH 3.73 Free T4 0.57, free T3 1 0.47 Levothyroxine 25 g daily Monitor TSH every 6-8 weeks Hypertension, improved Continue monitor blood pressure Amlodipine 10 mg daily Lisinopril 2.5 mg daily DVT prevention Patient ambulating Sequential compression devices while in bed Discharge Planning Case management for discharge planning, Conrado Mariee Feb 16, 2018 08:08
[2018-02-16] MEDS: FLUoxetine HCL 20 MG CAP PO SCH (08:32)
[2018-02-16] MEDS: QUEtiapine FUMARATE 100 MG TAB PO SCH ×2 (08:32→20:19)
[2018-02-16] MEDS: VALPROIC ACID 250 MG CAP PO SCH ×2 (08:32→20:20)
[2018-02-16] MEDS: MULTIVITAMIN TAB PO SCH (08:32)
[2018-02-16 08:38] VITALS: BP 141/87; PULSE 80; RESP 19; TEMP 99.6; O2SAT 95
[2018-02-16] MEDS: LISINOPRIL 5 MG TAB PO SCH (08:38)
[2018-02-16 20:00] VITALS: BP 150/86; PULSE 78; RESP 20; TEMP 98.6; O2SAT 94
[2018-02-16] MEDS: BENZONATATE 100 MG CAP PO PRN (20:19)
[2018-02-16] MEDS: MIRTAZAPINE 15 MG TAB PO SCH (20:19)
[2018-02-16] MEDS: guaiFENesin/DEXTROMETHORPHAN 200 MG/20 MG/10 ML CUP PO PRN (20:20)
[2018-02-16] MEDS: ACETAMINOPHEN 325 MG TAB PO PRN (21:58)
[2018-02-17] MEDS: LEVOTHYROXINE SODIUM 25 MCG TAB PO SCH (05:26)
--- NOTE | 2018-02-17 07:40 | HHI.PR ---
Subjective Remarks Patient seen and examined today for follow-up on unsafe discharge due to cognition. Patient resting in bed comfortably. Blood pressure has mild elevation. Patient remains afebrile. Objective Vitals Vital Signs Date Time Temp Pulse Resp B/P (MAP) Pulse Ox O2 Delivery O2 Flow Rate FiO2 02/16/18 22:58 20 02/16/18 20:00 98.6 78 20 150/86 (107) 94 02/16/18 08:38 99.6 80 19 141/87 (105) 95 I/O 02/16/18 02/16/18 02/16/18 02/17/18 02/17/18 02/17/18 07:00 15:00 23:00 07:00 15:00 23:00 Intake Total 1200 ml 60 ml Balance 1200 ml 60 ml Intake Oral 1200 ml 60 ml # Voids 4 1 # Bowel Movements 0 Objective Remarks GENERAL: Well-developed, well-nourished, in no acute distress. alert and orientation waxes and wanes daily HEENT: Head is normocephalic without any lesions or masses noted. Facial features are symmetric. Eyes: Extraocular muscles are intact. Conjunctivae were clear. CARDIAC: Regular rhythm, regular rate. S1/S2 are heard. No murmurs gallops or rubs. LUNGS: Clear to auscultation bilaterally. No wheeze, rhonchi or rales. No use of accessory muscles on inspiration or expiration. EXTREMITIES: No edema, pulses are equal bilaterally. No cyanosis or clubbing NEUROLOGY: Mood and affect appear appropriate. Cranial nerves II through XII grossly intact moving all extremities, speech is clear Urinary Catheter: No Vascular Central Line Catheter: No A/P Assessment and Plan Inability to care for self, unsafe discharge due to cognition Initially he was indicated patient cannot walk, patient is walking at this time, PT and OT recommending supervision at home for safety Speech therapy following the patient intermittently for cognitive evaluations. 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 MIni mental state 28/30, recommended avoid antipsychotics and benzodiazepine. Recommended Depakote or carbamazepine Patient is medically stable for discharge, however due to underlying psychiatric/cognition patient is unsafe discharge until arrangements made by case management Case management for discharge planning Neuropsychiatry evaluated the patient recommended patient may improve with treatment, however indicates avoid benzodiazepines and antipsychotics Continue Prozac 40 mg daily Depakene 500 mg twice daily Seroquel 100 mg twice daily Upper respiratory symptoms with low-grade fever, cough and congestion, low O2 saturation improving Continue Robitussin and Tessalon Chest x-ray does show some atelectatic changing Encourage incentive spirometry Mild malnutrition, secondary to poor by mouth intake Albumin 2.8 Prealbumin 19 Continue Remeron Dietary consulted who recommended ensure with breakfast lunch and there. May have muffin at bedtime, daily vitamin Recurrent falls, resolved Patient moved close to nursing station Patient does state that she is having neck pain Patient denies any neurological symptoms of weakness, paresthesia, loss of bowel or bladder control Orthostatic vitals do show drop in systolic blood pressure when standing. Improved after hydration Status post 2 L normal saline and continue monitor orthostatic vitals MRI of the neck. Multilevel degenerative changes. Mild degree of canal stenosis C5-C6, anterior fusion C6-C7 MRI of thoracic and lumbar spine do not indicate any acute abnormality Clavicle x-ray shows nonacute distal clavicle fracture. Carotid ultrasound was unremarkable Echocardiogram indicate ejection fraction 50-55% without any abnormalities Physical therapy ordered for 5 days a week Multiple traumatic injuries, Patient laceration, subdural hemorrhage, ventricular hemorrhage, nasal fracture, C6 fracture, C1-C2 subluxation, C4 transverse process fracture, right rib fracture, L1 transverse process fracture, right pubic rami fracture Continue c-collar this time, however patient does not wear Follow-up cervical spine CT 1026/17 indicates no evidence of acute fracture. Postsurgical changes Specialist no longer following patient, patient will require outpatient follow-up if discharge Right breast abscess, improved Physical exam patient does have a erythematous area with drainage Ultrasound does show complex loculated collection measuring 2.4 x 1.7 x 1.8 cm. Representing breast abscess Status post Augmentin 500 mg twice daily for 10 days and Bactrim DS for 18 days Gen. surgery consulted who recommends no intervention at this time, Soft tissue ultrasound shows a improvement of the fluid collection. Outpatient mammogram performed 01/25/18. Benign findings, recommendations for follow-up breast ultrasound in 3 months. Hypothyroidism TSH 5.11, follow-up TSH 3.73 Free T4 0.57, free T3 1 0.47 Levothyroxine 25 g daily Monitor TSH every 6-8 weeks Hypertension, improved Continue monitor blood pressure Amlodipine 10 mg daily Lisinopril 5 mg daily DVT prevention Patient ambulating Sequential compression devices while in bed Discharge Planning Case management for discharge planning, Conrado Mariee Feb 17, 2018 07:40
[2018-02-17 07:50] VITALS: BP 141/70; PULSE 77; RESP 20; TEMP 97.9; O2SAT 91
[2018-02-17] MEDS: MULTIVITAMIN TAB PO SCH (08:31)
[2018-02-17] MEDS: QUEtiapine FUMARATE 100 MG TAB PO SCH ×2 (08:31→20:23)
[2018-02-17] MEDS: FLUoxetine HCL 20 MG CAP PO SCH (08:31)
[2018-02-17] MEDS: VALPROIC ACID 250 MG CAP PO SCH ×2 (08:31→20:23)
[2018-02-17] MEDS: LISINOPRIL 5 MG TAB PO SCH (08:31)
[2018-02-17 20:00] VITALS: BP 152/98; PULSE 79; RESP 18; TEMP 98.6; O2SAT 92
[2018-02-17] MEDS: BENZONATATE 100 MG CAP PO PRN (20:22)
[2018-02-17] MEDS: ACETAMINOPHEN 325 MG TAB PO PRN (20:22)
[2018-02-17] MEDS: MIRTAZAPINE 15 MG TAB PO SCH (20:23)
[2018-02-18] MEDS: LEVOTHYROXINE SODIUM 25 MCG TAB PO SCH (06:00)
[2018-02-18 08:00] VITALS: BP 143/98; PULSE 65; RESP 18; TEMP 96.5; O2SAT 92
--- NOTE | 2018-02-18 08:25 | HHI.PR ---
Subjective Remarks Patient seen and examined today for follow-up on unsafe discharge due to cognition. Patient continues with upper respiratory symptoms with sinus congestion, cough. Patient remains afebrile. Objective Vitals Vital Signs Date Time Temp Pulse Resp B/P (MAP) Pulse Ox O2 Delivery O2 Flow Rate FiO2 02/18/18 08:00 96.5 65 18 143/98 (113) 92 02/17/18 20:00 98.6 79 18 152/98 (116) 92 I/O 02/17/18 02/17/18 02/17/18 02/18/18 02/18/18 02/18/18 07:00 15:00 23:00 07:00 15:00 23:00 Intake Total 60 ml 581 ml 60 ml Balance 60 ml 581 ml 60 ml Intake Oral 60 ml 581 ml 60 ml # Voids 1 2 1 # Bowel Movements 0 1 Objective Remarks GENERAL: Well-developed, well-nourished, in no acute distress. alert and orientation waxes and wanes daily HEENT: Head is normocephalic without any lesions or masses noted. Facial features are symmetric. Eyes: Extraocular muscles are intact. Conjunctivae were clear. CARDIAC: Regular rhythm, regular rate. S1/S2 are heard. No murmurs gallops or rubs. LUNGS: Clear to auscultation bilaterally. No wheeze, rhonchi or rales. No use of accessory muscles on inspiration or expiration. EXTREMITIES: No edema, pulses are equal bilaterally. No cyanosis or clubbing NEUROLOGY: Mood and affect appear appropriate. Cranial nerves II through XII grossly intact moving all extremities, speech is clear Urinary Catheter: No Vascular Central Line Catheter: No A/P Assessment and Plan Inability to care for self, unsafe discharge due to cognition Initially he was indicated patient cannot walk, patient is walking at this time, PT and OT recommending supervision at home for safety Speech therapy following the patient intermittently for cognitive evaluations. 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 MIni mental state 28/30, recommended avoid antipsychotics and benzodiazepine. Recommended Depakote or carbamazepine Patient is medically stable for discharge, however due to underlying psychiatric/cognition patient is unsafe discharge until arrangements made by case management Case management for discharge planning Neuropsychiatry evaluated the patient recommended patient may improve with treatment, however indicates avoid benzodiazepines and antipsychotics Continue Prozac 40 mg daily Depakene 500 mg twice daily Seroquel 100 mg twice daily Upper respiratory symptoms with low-grade fever, cough and congestion, low O2 saturation improving Continue Robitussin and Tessalon Chest x-ray does show some atelectatic changing Encourage incentive spirometry Start Flonase nasal spray Mild malnutrition, secondary to poor by mouth intake Albumin 2.8 Prealbumin 19 Continue Remeron Dietary consulted who recommended ensure with breakfast lunch and there. May have muffin at bedtime, daily vitamin Recurrent falls, resolved Patient moved close to nursing station Patient does state that she is having neck pain Patient denies any neurological symptoms of weakness, paresthesia, loss of bowel or bladder control Orthostatic vitals do show drop in systolic blood pressure when standing. Improved after hydration Status post 2 L normal saline and continue monitor orthostatic vitals MRI of the neck. Multilevel degenerative changes. Mild degree of canal stenosis C5-C6, anterior fusion C6-C7 MRI of thoracic and lumbar spine do not indicate any acute abnormality Clavicle x-ray shows nonacute distal clavicle fracture. Carotid ultrasound was unremarkable Echocardiogram indicate ejection fraction 50-55% without any abnormalities Physical therapy ordered for 5 days a week Multiple traumatic injuries, Patient laceration, subdural hemorrhage, ventricular hemorrhage, nasal fracture, C6 fracture, C1-C2 subluxation, C4 transverse process fracture, right rib fracture, L1 transverse process fracture, right pubic rami fracture Continue c-collar this time, however patient does not wear Follow-up cervical spine CT 1026/17 indicates no evidence of acute fracture. Postsurgical changes Specialist no longer following patient, patient will require outpatient follow-up if discharge Right breast abscess, improved Physical exam patient does have a erythematous area with drainage Ultrasound does show complex loculated collection measuring 2.4 x 1.7 x 1.8 cm. Representing breast abscess Status post Augmentin 500 mg twice daily for 10 days and Bactrim DS for 18 days Gen. surgery consulted who recommends no intervention at this time, Soft tissue ultrasound shows a improvement of the fluid collection. Outpatient mammogram performed 01/25/18. Benign findings, recommendations for follow-up breast ultrasound in 3 months. Hypothyroidism TSH 5.11, follow-up TSH 3.73 Free T4 0.57, free T3 1 0.47 Levothyroxine 25 g daily Monitor TSH every 6-8 weeks Hypertension, improved Continue monitor blood pressure Amlodipine 10 mg daily Lisinopril 5 mg daily DVT prevention Patient ambulating Sequential compression devices while in bed Discharge Planning Case management for discharge planning, Conrado Mariee Feb 18, 2018 08:25
[2018-02-18] MEDS: FLUoxetine HCL 20 MG CAP PO SCH (09:02)
[2018-02-18] MEDS: MULTIVITAMIN TAB PO SCH (09:03)
[2018-02-18] MEDS: LISINOPRIL 5 MG TAB PO SCH (09:03)
[2018-02-18] MEDS: VALPROIC ACID 250 MG CAP PO SCH ×2 (09:03→20:40)
[2018-02-18] MEDS: QUEtiapine FUMARATE 100 MG TAB PO SCH ×2 (09:03→20:40)
[2018-02-18] MEDS: FLUTICASONE PROPIONATE 50 MCG/ACT 16 GM NASAL SPRAY EACH NARE SCH (10:08)
[2018-02-18] MEDS: ERGOCALCIFEROL (VIT D2) 50,000 UNIT CAP PO SCH (10:08)
[2018-02-18 16:00] VITALS: BP 121/80; PULSE 80; RESP 16; TEMP 98.3; O2SAT 94
[2018-02-18 20:00] VITALS: BP 151/96; PULSE 74; RESP 20; TEMP 96.3; O2SAT 96
[2018-02-18] MEDS: ACETAMINOPHEN 325 MG TAB PO PRN (20:40)
[2018-02-18] MEDS: guaiFENesin/DEXTROMETHORPHAN 200 MG/20 MG/10 ML CUP PO PRN (20:40)
[2018-02-18] MEDS: MIRTAZAPINE 15 MG TAB PO SCH (20:40)
[2018-02-19] MEDS: LEVOTHYROXINE SODIUM 25 MCG TAB PO SCH (05:49)
[2018-02-19 08:00] VITALS: BP 141/80; PULSE 69; RESP 16; TEMP 97.3; O2SAT 94
[2018-02-19] MEDS: FLUoxetine HCL 20 MG CAP PO SCH (08:51)
[2018-02-19] MEDS: QUEtiapine FUMARATE 100 MG TAB PO SCH ×2 (08:57→22:12)
[2018-02-19] MEDS: VALPROIC ACID 250 MG CAP PO SCH ×2 (08:57→22:12)
[2018-02-19] MEDS: LISINOPRIL 5 MG TAB PO SCH (08:58)
[2018-02-19] MEDS: MULTIVITAMIN TAB PO SCH (08:58)
--- NOTE | 2018-02-19 09:03 | HHI.PR ---
Subjective Remarks Patient seen and examined today for follow-up on unsafe discharge due to cognition, upper respiratory infection. Patient states that she is doing much better. Her sinuses are less congested. Cough is improving. Patient remains afebrile Objective Vitals Vital Signs Date Time Temp Pulse Resp B/P (MAP) Pulse Ox O2 Delivery O2 Flow Rate FiO2 02/19/18 08:00 97.3 69 16 141/80 (100) 94 02/18/18 20:00 96.3 74 20 151/96 (114) 96 02/18/18 16:00 98.3 80 16 121/80 (94) 94 I/O 02/18/18 02/18/18 02/18/18 02/19/18 02/19/18 02/19/18 07:00 15:00 23:00 07:00 15:00 23:00 Intake Total 60 ml 450 ml Balance 60 ml 450 ml Intake Oral 60 ml 450 ml # Voids 1 3 # Bowel Movements 2 Objective Remarks GENERAL: Well-developed, well-nourished, in no acute distress. alert and orientation waxes and wanes daily HEENT: Head is normocephalic without any lesions or masses noted. Facial features are symmetric. Eyes: Extraocular muscles are intact. Conjunctivae were clear. CARDIAC: Regular rhythm, regular rate. S1/S2 are heard. No murmurs gallops or rubs. LUNGS: Clear to auscultation bilaterally. No wheeze, rhonchi or rales. No use of accessory muscles on inspiration or expiration. EXTREMITIES: No edema, pulses are equal bilaterally. No cyanosis or clubbing NEUROLOGY: Mood and affect appear appropriate. Cranial nerves II through XII grossly intact moving all extremities, speech is clear Urinary Catheter: No Vascular Central Line Catheter: No A/P Assessment and Plan Inability to care for self, unsafe discharge due to cognition Initially he was indicated patient cannot walk, patient is walking at this time, PT and OT recommending supervision at home for safety Speech therapy following the patient intermittently for cognitive evaluations. 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 MIni mental state 28/30, recommended avoid antipsychotics and benzodiazepine. Recommended Depakote or carbamazepine Patient is medically stable for discharge, however due to underlying psychiatric/cognition patient is unsafe discharge until arrangements made by case management Case management for discharge planning Neuropsychiatry evaluated the patient recommended patient may improve with treatment, however indicates avoid benzodiazepines and antipsychotics Continue Prozac 40 mg daily Depakene 500 mg twice daily Seroquel 100 mg twice daily Upper respiratory symptoms with low-grade fever, cough and congestion, low O2 saturation improving Continue Robitussin and Tessalon Chest x-ray does show some atelectatic changing Encourage incentive spirometry Continue Flonase nasal spray Mild malnutrition, secondary to poor by mouth intake Albumin 2.8 Prealbumin 19 Continue Remeron Dietary consulted who recommended ensure with breakfast lunch and there. May have muffin at bedtime, daily vitamin Recurrent falls, resolved Patient moved close to nursing station Patient does state that she is having neck pain Patient denies any neurological symptoms of weakness, paresthesia, loss of bowel or bladder control Orthostatic vitals do show drop in systolic blood pressure when standing. Improved after hydration Status post 2 L normal saline and continue monitor orthostatic vitals MRI of the neck. Multilevel degenerative changes. Mild degree of canal stenosis C5-C6, anterior fusion C6-C7 MRI of thoracic and lumbar spine do not indicate any acute abnormality Clavicle x-ray shows nonacute distal clavicle fracture. Carotid ultrasound was unremarkable Echocardiogram indicate ejection fraction 50-55% without any abnormalities Physical therapy ordered for 5 days a week Multiple traumatic injuries, Patient laceration, subdural hemorrhage, ventricular hemorrhage, nasal fracture, C6 fracture, C1-C2 subluxation, C4 transverse process fracture, right rib fracture, L1 transverse process fracture, right pubic rami fracture Continue c-collar this time, however patient does not wear Follow-up cervical spine CT 1026/17 indicates no evidence of acute fracture. Postsurgical changes Specialist no longer following patient, patient will require outpatient follow-up if discharge Right breast abscess, improved Physical exam patient does have a erythematous area with drainage Ultrasound does show complex loculated collection measuring 2.4 x 1.7 x 1.8 cm. Representing breast abscess Status post Augmentin 500 mg twice daily for 10 days and Bactrim DS for 18 days Gen. surgery consulted who recommends no intervention at this time, Soft tissue ultrasound shows a improvement of the fluid collection. Outpatient mammogram performed 01/25/18. Benign findings, recommendations for follow-up breast ultrasound in 3 months. Hypothyroidism TSH 5.11, follow-up TSH 3.73 Free T4 0.57, free T3 1 0.47 Levothyroxine 25 g daily Monitor TSH every 6-8 weeks Hypertension, improved Continue monitor blood pressure Amlodipine 10 mg daily Lisinopril 5 mg daily DVT prevention Patient ambulating Sequential compression devices while in bed Medical records were reviewed, no change in current treatment plan, awaiting case management discharge planning. Discharge Planning Case management for discharge planning, Conrado Mariee Feb 19, 2018 09:03
[2018-02-19] MEDS: FLUTICASONE PROPIONATE 50 MCG/ACT 16 GM NASAL SPRAY EACH NARE SCH (12:09)
[2018-02-19 20:00] VITALS: BP 144/83; PULSE 79; RESP 20; TEMP 97.7; O2SAT 94
[2018-02-19] MEDS: MIRTAZAPINE 15 MG TAB PO SCH (22:12)
[2018-02-19] MEDS: guaiFENesin/DEXTROMETHORPHAN 200 MG/20 MG/10 ML CUP PO PRN (22:18)
[2018-02-20] MEDS: LEVOTHYROXINE SODIUM 25 MCG TAB PO SCH (05:24)
--- NOTE | 2018-02-20 07:50 | HHI.PR ---
Subjective Remarks Patient seen and examined today for follow-up on unsafe discharge due to cognition, upper respiratory infection. Patient is doing well. Denies any new complaints. Vital signs are stable. Patient remains afebrile. Objective Vitals Vital Signs Date Time Temp Pulse Resp B/P (MAP) Pulse Ox O2 Delivery O2 Flow Rate FiO2 02/19/18 20:00 97.7 79 20 144/83 (103) 94 02/19/18 08:00 97.3 69 16 141/80 (100) 94 I/O 02/19/18 02/19/18 02/19/18 02/20/18 02/20/18 02/20/18 07:00 15:00 23:00 07:00 15:00 23:00 Intake Total 450 ml 300 ml 300 ml 480 ml Balance 450 ml 300 ml 300 ml 480 ml Intake Oral 450 ml 300 ml 300 ml 480 ml # Voids 3 2 5 2 # Bowel Movements 2 3 Objective Remarks GENERAL: Well-developed, well-nourished, in no acute distress. alert and orientation waxes and wanes daily HEENT: Head is normocephalic without any lesions or masses noted. Facial features are symmetric. Eyes: Extraocular muscles are intact. Conjunctivae were clear. CARDIAC: Regular rhythm, regular rate. S1/S2 are heard. No murmurs gallops or rubs. LUNGS: Clear to auscultation bilaterally. No wheeze, rhonchi or rales. No use of accessory muscles on inspiration or expiration. EXTREMITIES: No edema, pulses are equal bilaterally. No cyanosis or clubbing NEUROLOGY: Mood and affect appear appropriate. Cranial nerves II through XII grossly intact moving all extremities, speech is clear Urinary Catheter: No Vascular Central Line Catheter: No A/P Assessment and Plan Inability to care for self, unsafe discharge due to cognition Initially he was indicated patient cannot walk, patient is walking at this time, PT and OT recommending supervision at home for safety Speech therapy following the patient intermittently for cognitive evaluations. 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 MIni mental state 28/30, recommended avoid antipsychotics and benzodiazepine. Recommended Depakote or carbamazepine Patient is medically stable for discharge, however due to underlying psychiatric/cognition patient is unsafe discharge until arrangements made by case management Case management for discharge planning Neuropsychiatry evaluated the patient recommended patient may improve with treatment, however indicates avoid benzodiazepines and antipsychotics Continue Prozac 40 mg daily Depakene 500 mg twice daily Seroquel 100 mg twice daily Upper respiratory symptoms with low-grade fever, cough and congestion, low O2 saturation improving Continue Robitussin and Tessalon Chest x-ray does show some atelectatic changing Encourage incentive spirometry Continue Flonase nasal spray Mild malnutrition, secondary to poor by mouth intake Albumin 2.8 Prealbumin 19 Continue Remeron Dietary consulted who recommended ensure with breakfast lunch and there. May have muffin at bedtime, daily vitamin Recurrent falls, resolved Patient moved close to nursing station Patient does state that she is having neck pain Patient denies any neurological symptoms of weakness, paresthesia, loss of bowel or bladder control Orthostatic vitals do show drop in systolic blood pressure when standing. Improved after hydration Status post 2 L normal saline and continue monitor orthostatic vitals MRI of the neck. Multilevel degenerative changes. Mild degree of canal stenosis C5-C6, anterior fusion C6-C7 MRI of thoracic and lumbar spine do not indicate any acute abnormality Clavicle x-ray shows nonacute distal clavicle fracture. Carotid ultrasound was unremarkable Echocardiogram indicate ejection fraction 50-55% without any abnormalities Physical therapy ordered for 5 days a week Multiple traumatic injuries, Patient laceration, subdural hemorrhage, ventricular hemorrhage, nasal fracture, C6 fracture, C1-C2 subluxation, C4 transverse process fracture, right rib fracture, L1 transverse process fracture, right pubic rami fracture Continue c-collar this time, however patient does not wear Follow-up cervical spine CT 1026/17 indicates no evidence of acute fracture. Postsurgical changes Specialist no longer following patient, patient will require outpatient follow-up if discharge Right breast abscess, improved Physical exam patient does have a erythematous area with drainage Ultrasound does show complex loculated collection measuring 2.4 x 1.7 x 1.8 cm. Representing breast abscess Status post Augmentin 500 mg twice daily for 10 days and Bactrim DS for 18 days Gen. surgery consulted who recommends no intervention at this time, Soft tissue ultrasound shows a improvement of the fluid collection. Outpatient mammogram performed 01/25/18. Benign findings, recommendations for follow-up breast ultrasound in 3 months. Hypothyroidism TSH 5.11, follow-up TSH 3.73 Free T4 0.57, free T3 1 0.47 Levothyroxine 25 g daily Monitor TSH every 6-8 weeks Hypertension, improved Continue monitor blood pressure Amlodipine 10 mg daily Lisinopril 5 mg daily DVT prevention Patient ambulating Sequential compression devices while in bed Medical records were reviewed, awaiting case management discharge planning. no change in current treatment plan, Discharge Planning Case management for discharge planning, Conrado Mariee Feb 20, 2018 07:50
[2018-02-20 08:00] VITALS: BP 137/73; PULSE 84; RESP 16; TEMP 98.2; O2SAT 95
[2018-02-20] MEDS: BENZONATATE 100 MG CAP PO PRN (08:23)
[2018-02-20] MEDS: MULTIVITAMIN TAB PO SCH (08:23)
[2018-02-20] MEDS: QUEtiapine FUMARATE 100 MG TAB PO SCH ×2 (08:23→20:22)
[2018-02-20] MEDS: VALPROIC ACID 250 MG CAP PO SCH ×2 (08:24→20:22)
[2018-02-20] MEDS: FLUTICASONE PROPIONATE 50 MCG/ACT 16 GM NASAL SPRAY EACH NARE SCH (08:24)
[2018-02-20] MEDS: FLUoxetine HCL 20 MG CAP PO SCH (08:24)
[2018-02-20] MEDS: LISINOPRIL 5 MG TAB PO SCH (08:24)
[2018-02-20] MEDS ORDERED: MENTHOL LOZENGE BUCCAL PRN (10:15)
[2018-02-20] MEDS: ACETAMINOPHEN 325 MG TAB PO PRN (17:52)
[2018-02-20 20:17] VITALS: BP 154/87; PULSE 77; RESP 16; TEMP 97.2; O2SAT 97
[2018-02-20] MEDS: MIRTAZAPINE 15 MG TAB PO SCH (20:23)
[2018-02-21] MEDS: LEVOTHYROXINE SODIUM 25 MCG TAB PO SCH (06:02)
[2018-02-21] MEDS: QUEtiapine FUMARATE 100 MG TAB PO SCH ×2 (07:46→21:03)
[2018-02-21] MEDS: LISINOPRIL 5 MG TAB PO SCH (07:46)
[2018-02-21] MEDS: FLUoxetine HCL 20 MG CAP PO SCH (07:46)
[2018-02-21] MEDS: VALPROIC ACID 250 MG CAP PO SCH ×2 (07:46→21:02)
[2018-02-21] MEDS: MULTIVITAMIN TAB PO SCH (07:46)
[2018-02-21] MEDS: FLUTICASONE PROPIONATE 50 MCG/ACT 16 GM NASAL SPRAY EACH NARE SCH (07:47)
[2018-02-21 07:50] VITALS: BP 154/86; PULSE 71; RESP 20; TEMP 96.6; O2SAT 91
--- NOTE | 2018-02-21 12:50 | HHI.PR ---
Subjective Remarks Follow up unsafe discharge due to cognition. Patient seen and examined, lying in bed comfortably. Sitter at bedside. VSS overnight. No reports of any acute events. Afebrile. Continued nonproductive cough. Eating and ambulating. Objective Vitals Vital Signs Date Time Temp Pulse Resp B/P (MAP) Pulse Ox O2 Delivery O2 Flow Rate FiO2 02/21/18 07:50 96.6 71 20 154/86 (108) 91 02/20/18 20:17 97.2 77 16 154/87 (109) 97 I/O 02/20/18 02/20/18 02/20/18 02/21/18 02/21/18 02/21/18 07:00 15:00 23:00 07:00 15:00 23:00 Intake Total 480 ml Balance 480 ml Intake Oral 480 ml # Voids 2 2 Imaging Last Impressions Chest X-Ray 02/11/18 0000 Signed Impressions: Service Date/Time: Sunday, February 11, 2018 13:13 - CONCLUSION: 1. Minimal atelectasis/scarring in the left base. Lungs are otherwise clear. 2. 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 Anterior fixation of lower cervical spine. Marcelino Cisneros MD Clavicle X-Ray 12/16/17 0000 Signed Impressions: Service Date/Time: December 19:51 - CONCLUSION: Distal clavicle is fractured but this appears nonacute. No acute fracture demonstrated. Jovany Hayes MD Thoracic Spine MRI 12/01/17 0000 Signed Impressions: Service Date/Time: Friday, December 01, 2017 15:10 - CONCLUSION: Negative for acute process. Vimal Taylor MD FACR Lumbar Spine MRI 12/01/17 0000 Signed Impressions: Service Date/Time: Friday, December 01, 2017 15:10 - CONCLUSION: Negative MRI of the lumbar spine. Vimal Taylor MD FACR Carotid Artery Ultrasound 11/30/17 0000 Signed Impressions: Service Date/Time: Thursday, November 30, 2017 14:34 - CONCLUSION: 1. Mild plaque with no hemodynamically significant stenosis. Vertebral artery flow antegrade. Fadi Carolina MD Cervical Spine MRI 11/28/17 0000 Signed Impressions: Service Date/Time: Tuesday, November 28, 2017 15:10 - CONCLUSION: 1. Multilevel posterior disc osteophyte complexes as described above. 2. Anterior fusion C6- 7. Dylon Haddad MD Knee X-Ray 11/02/17 0000 Signed Impressions: Service Date/Time: Thursday, November 02, 2017 18:51 - CONCLUSION: Intact right knee. Jovany Hayes MD Head CT 11/02/17 0000 Signed Impressions: Service Date/Time: Thursday, November 02, 2017 18:35 - CONCLUSION: 1. No bleed or other acute intracranial abnormality. 2. Previously seen intracranial hemorrhage has resolved. A small area of chronic encephalomalacia has developed of the right frontal lobe. 3. Chronic periventricular white matter changes are again noted. Jovany Hayes MD Breast Ultrasound 10/15/17 0000 Signed Impressions: Service Date/Time: Sunday, October 15, 2017 09:06 - CONCLUSION: Persistent subcutaneous collection at the 12:00 position of the right breast. It has slightly decreased in size since the study dated 09/23/2017 and could represent an infectious process. Consider followup to confirm resolution. Jovany Quezada MD Cervical Spine CT 09/02/17 0000 Signed Impressions: Service Date/Time: August 12:56 - CONCLUSION: Postsurgical changes from anterior cervical plate at C6-7. No evidence of compression deformity or spondylolisthesis. Arun Regan MD Pelvis X-Ray 06/30/17 0000 Signed Impressions: Service Date/Time: Friday, June 30, 2017 12:17 - CONCLUSION: No significant change has occurred. Carlos Capps MD Objective Remarks GENERAL: Well-nourished, well-developed female in [place]. SKIN: Warm and dry. No rash. HEENT: Normocephalic. Atraumatic. Pupils equal and round. No scleral icterus. No injection or drainage. No nasal bleeding or discharge. Mucous membranes pink and moist. NECK: Supple. Trachea midline. CARDIOVASCULAR: Regular rate and rhythm. S1, S2 noted. No murmur appreciated. RESPIRATORY: No accessory muscle use. Clear to auscultation. Breath sounds equal bilaterally. GASTROINTESTINAL: Abdomen soft, non-tender, nondistended. Normoactive bowel sounds x4. No guarding noted. MUSCULOSKELETAL: No obvious deformities. Extremities without clubbing, cyanosis , or edema. NEUROLOGICAL: Awake and alert. No obvious cranial nerve deficits. Motor grossly within normal limits. 5/5 muscle strength in bilateral upper and lower extremities. Normal speech. PSYCHIATRIC: Appropriate mood and affect. A/P Problem List: (1) Alcohol dependence in controlled environment ICD Code: F10.20 - Alcohol dependence, uncomplicated Status: Chronic (2) Facial injury ICD Code: S09.93XA - Unspecified injury of face, initial encounter Status: Acute (3) Fall ICD Code: W19.XXXA - Unspecified fall, initial encounter Status: Acute (4) Hypertension ICD Code: I10 - Essential (primary) hypertension Status: Acute (5) Pelvic fracture ICD Code: S32.9XXA - Fracture of unspecified parts of lumbosacral spine and pelvis, initial encounter for closed fracture Status: Acute (6) C1-C2 subluxation ICD Code: S13.120A - Subluxation of C1/C2 cervical vertebrae, initial encounter Status: Acute (7) C6 cervical fracture ICD Code: S12.500A - Unspecified displaced fracture of sixth cervical vertebra , initial encounter for closed fracture Status: Acute (8) Traumatic brain injury ICD Code: S06.9X9A - Unspecified intracranial injury with loss of consciousness of unspecified duration, initial encounter Status: Acute (9) Nasal fracture ICD Code: S02.2XXA - Fracture of nasal bones, initial encounter for closed fracture Status: Acute (10) Mild neurocognitive disorder ICD Code: G31.84 - Mild cognitive impairment, so stated Status: Acute (11) Intracranial bleed ICD Code: I62.9 - Nontraumatic intracranial hemorrhage, unspecified Status: Acute Assessment and Plan Inability to care for self, unsafe discharge due to cognition - PT and OT recommending supervision at home for safety. - Speech therapy following the patient intermittently for cognitive evaluations. 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 Mini mental state 28/30, recommended avoid antipsychotics and benzodiazepine. Recommending Depakote or carbamazepine. - Patient is medically stable for discharge, however due to underlying psychiatric/cognition patient is unsafe discharge until arrangements made by case management. Case management for discharge planning. - Neuropsychiatry evaluated the patient recommended patient may improve with treatment, however indicates avoid benzodiazepines and antipsychotics - Continue Prozac 40 mg daily - Depakene 500 mg twice daily - Seroquel 100 mg twice daily - *Psychiatry indicated that the patient lacks capacity for signing AMA or to participate in discharge plan. He is recommending that he would invite the ethics committee to the hospital to have a discussion about patient care - *Consulted case management for ethics committee review, awaiting response Upper respiratory infection with congestion: Improving. Chest x-ray showing clear lungs. Nothing acute. Labs drawn, no leukocytosis. Afebrile. Acetaminophen as needed. Cough medication. Recurrent falls. Resolved. Patient moved close to nursing station. Patient denies any neurological symptoms of weakness, paresthesia, loss of bowel or bladder control Orthostatic vitals do show drop in systolic blood pressure when standing. Improved after hydration. MRI of the neck. Multilevel degenerative changes. Mild degree of canal stenosis C5-C6, anterior fusion C6-C7 MRI of thoracic and lumbar spine do not indicate any acute abnormality Carotid ultrasound was unremarkable. Echocardiogram indicate ejection fraction 50-55% without any abnormalities Physical therapy ordered for 5 days a week Mild malnutrition, secondary to poor by mouth intake. Resolved. Albumin 2.8. Prealbumin 19. After review of weight trend, has been gaining weight. Continue Remeron. Dietary consulted who recommended ensure with breakfast lunch and there. May have muffin at bedtime, daily vitamin. Multiple traumatic injuries Patient laceration, subdural hemorrhage, ventricular hemorrhage, nasal fracture, C6 fracture, C1-C2 subluxation, C4 transverse process fracture, right rib fracture, L1 transverse process fracture, right pubic rami fracture Continue c-collar this time, however patient does not wear Follow-up cervical spine CT 1026/17 indicates no evidence of acute fracture. Postsurgical changes Specialist no longer following patient, patient will require outpatient follow-up if discharge Right breast abscess, Improved. Physical exam shows improvement. Ultrasound does show complex loculated collection measuring 2.4 x 1.7 x 1.8 cm. Representing breast abscess Status post Augmentin 500 mg twice daily for 10 days (end date 10/25/17). Finished Bactrim DS for 18 days Gen. surgery consulted who recommends no intervention at this time. Soft tissue ultrasound shows a improvement of the fluid collection. Outpatient mammogram performed today, 01/25/18. Benign findings, recommendations for follow-up breast ultrasound in 3 months. Hypothyroidism TSH 3.73 Free T4 0.57, free T3 1 0.47 Levothyroxine 25 g daily Monitor TSH every 6-8 weeks. TSH last checked 3.73 on January 21. Continue current treatment. Hypertension Amlodipine 10 mg daily DVT prevention Patient ambulating Sequential compression devices while in bed Records were reviewed. Awaiting case management for discharge planning, No change in current treatment plan. Discharge Planning Due to underlying psychiatric/cognition patient is unsafe discharge until arrangements made by case management. Problem Qualifiers (1) Hypertension: Qualified Codes: I10 - Essential (primary) hypertension Alyssa Means Feb 21, 2018 12:50
[2018-02-21 20:00] VITALS: BP 166/93; PULSE 74; RESP 20; TEMP 98.2; O2SAT 94
[2018-02-21] MEDS: guaiFENesin/DEXTROMETHORPHAN 200 MG/20 MG/10 ML CUP PO PRN (21:02)
[2018-02-21] MEDS: MIRTAZAPINE 15 MG TAB PO SCH (21:02)
[2018-02-21] MEDS: ACETAMINOPHEN 325 MG TAB PO PRN (21:04)
[2018-02-22] MEDS: LEVOTHYROXINE SODIUM 25 MCG TAB PO SCH (05:58)
[2018-02-22 08:00] VITALS: BP 139/82; PULSE 73; RESP 16; TEMP 97.8; O2SAT 92
[2018-02-22] MEDS: QUEtiapine FUMARATE 100 MG TAB PO SCH ×2 (08:58→20:22)
[2018-02-22] MEDS: FLUoxetine HCL 20 MG CAP PO SCH (08:58)
[2018-02-22] MEDS: LISINOPRIL 5 MG TAB PO SCH (08:58)
[2018-02-22] MEDS: MULTIVITAMIN TAB PO SCH (08:58)
[2018-02-22] MEDS: VALPROIC ACID 250 MG CAP PO SCH ×2 (08:59→20:22)
[2018-02-22] MEDS: FLUTICASONE PROPIONATE 50 MCG/ACT 16 GM NASAL SPRAY EACH NARE SCH (09:04)
--- NOTE | 2018-02-22 10:03 | HHI.PR ---
Subjective Remarks Follow-up unsafe discharge due to cognition. Patient seen and examined, lying in bed comfortably no apparent distress. No reports of any acute events overnight. No changes. health policy manager assisting with placement. Objective Vitals Vital Signs Date Time Temp Pulse Resp B/P (MAP) Pulse Ox O2 Delivery O2 Flow Rate FiO2 02/22/18 08:00 97.8 73 16 139/82 (101) 92 02/21/18 20:00 98.2 74 20 166/93 (117) 94 I/O 02/21/18 02/21/18 02/21/18 02/22/18 02/22/18 02/22/18 06:59 14:59 22:59 06:59 14:59 22:59 Intake Total 221 ml 450 ml Balance 221 ml 450 ml Intake Oral 221 ml 450 ml # Voids 2 6 2 # Bowel Movements 0 2 Imaging Last Impressions Chest X-Ray 02/11/18 0000 Signed Impressions: Service Date/Time: Sunday, February 11, 2018 13:13 - CONCLUSION: 1. Minimal atelectasis/scarring in the left base. Lungs are otherwise clear. 2. 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 Anterior fixation of lower cervical spine. Marcelino Cisneros MD Clavicle X-Ray 12/16/17 0000 Signed Impressions: Service Date/Time: December 19:51 - CONCLUSION: Distal clavicle is fractured but this appears nonacute. No acute fracture demonstrated. Jovany Hayes MD Thoracic Spine MRI 12/01/17 0000 Signed Impressions: Service Date/Time: Friday, December 01, 2017 15:10 - CONCLUSION: Negative for acute process. Vimal Taylor MD FACR Lumbar Spine MRI 12/01/17 0000 Signed Impressions: Service Date/Time: Friday, December 01, 2017 15:10 - CONCLUSION: Negative MRI of the lumbar spine. Vimal Taylor MD FACR Carotid Artery Ultrasound 11/30/17 0000 Signed Impressions: Service Date/Time: Thursday, November 30, 2017 14:34 - CONCLUSION: 1. Mild plaque with no hemodynamically significant stenosis. Vertebral artery flow antegrade. Fadi Carolina MD Cervical Spine MRI 11/28/17 0000 Signed Impressions: Service Date/Time: Tuesday, November 28, 2017 15:10 - CONCLUSION: 1. Multilevel posterior disc osteophyte complexes as described above. 2. Anterior fusion C6- 7. Dylon Haddad MD Knee X-Ray 11/02/17 0000 Signed Impressions: Service Date/Time: Thursday, November 02, 2017 18:51 - CONCLUSION: Intact right knee. Jovany Hayes MD Head CT 11/02/17 0000 Signed Impressions: Service Date/Time: Thursday, November 02, 2017 18:35 - CONCLUSION: 1. No bleed or other acute intracranial abnormality. 2. Previously seen intracranial hemorrhage has resolved. A small area of chronic encephalomalacia has developed of the right frontal lobe. 3. Chronic periventricular white matter changes are again noted. Jovany Hayes MD Breast Ultrasound 10/15/17 0000 Signed Impressions: Service Date/Time: Sunday, October 15, 2017 09:06 - CONCLUSION: Persistent subcutaneous collection at the 12:00 position of the right breast. It has slightly decreased in size since the study dated 09/23/2017 and could represent an infectious process. Consider followup to confirm resolution. Jovany Quezada MD Cervical Spine CT 09/02/17 0000 Signed Impressions: Service Date/Time: August 12:56 - CONCLUSION: Postsurgical changes from anterior cervical plate at C6-7. No evidence of compression deformity or spondylolisthesis. Arun Regan MD Pelvis X-Ray 06/30/17 0000 Signed Impressions: Service Date/Time: Friday, June 30, 2017 12:17 - CONCLUSION: No significant change has occurred. Carlos Capps MD Objective Remarks GENERAL: Well-developed, well-nourished patient in [facility]. SKIN: Warm and dry. No rash. HEAD: Normocephalic. Atraumatic. EYES: Pupils equal and round. No scleral icterus. No injection or drainage. ENT: No nasal bleeding or discharge. Mucous membranes pink and moist. NECK: Supple. Trachea midline. CARDIOVASCULAR: Regular rate and rhythm. S1, S2 noted. No murmur appreciated. RESPIRATORY: No accessory muscle use. Clear to auscultation. Breath sounds equal bilaterally. GASTROINTESTINAL: Abdomen soft, non-tender, nondistended. Normoactive bowel sounds x4. MUSCULOSKELETAL: No obvious deformities. Extremities without clubbing, cyanosis , or edema. NEUROLOGICAL: Awake and alert. No obvious cranial nerve deficits. Motor grossly within normal limits. 5/5 muscle strength in bilateral upper and lower extremities. Normal speech. PSYCHIATRIC: Appropriate mood and affect; insight and judgment normal. A/P Problem List: (1) Alcohol dependence in controlled environment ICD Code: F10.20 - Alcohol dependence, uncomplicated Status: Chronic (2) Facial injury ICD Code: S09.93XA - Unspecified injury of face, initial encounter Status: Acute (3) Fall ICD Code: W19.XXXA - Unspecified fall, initial encounter Status: Acute (4) Hypertension ICD Code: I10 - Essential (primary) hypertension Status: Acute (5) Pelvic fracture ICD Code: S32.9XXA - Fracture of unspecified parts of lumbosacral spine and pelvis, initial encounter for closed fracture Status: Acute (6) C1-C2 subluxation ICD Code: S13.120A - Subluxation of C1/C2 cervical vertebrae, initial encounter Status: Acute (7) C6 cervical fracture ICD Code: S12.500A - Unspecified displaced fracture of sixth cervical vertebra , initial encounter for closed fracture Status: Acute (8) Traumatic brain injury ICD Code: S06.9X9A - Unspecified intracranial injury with loss of consciousness of unspecified duration, initial encounter Status: Acute (9) Nasal fracture ICD Code: S02.2XXA - Fracture of nasal bones, initial encounter for closed fracture Status: Acute (10) Mild neurocognitive disorder ICD Code: G31.84 - Mild cognitive impairment, so stated Status: Acute (11) Intracranial bleed ICD Code: I62.9 - Nontraumatic intracranial hemorrhage, unspecified Status: Acute Assessment and Plan Inability to care for self, unsafe discharge due to cognition - PT and OT recommending supervision at home for safety. - Speech therapy following the patient intermittently for cognitive evaluations. 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 Mini mental state 28/30, recommended avoid antipsychotics and benzodiazepine. Recommending Depakote or carbamazepine. - Patient is medically stable for discharge, however due to underlying psychiatric/cognition patient is unsafe discharge until arrangements made by case management. Case management for discharge planning. - Neuropsychiatry evaluated the patient recommended patient may improve with treatment, however indicates avoid benzodiazepines and antipsychotics - Continue Prozac 40 mg daily - Depakene 500 mg twice daily - Seroquel 100 mg twice daily - *Psychiatry indicated that the patient lacks capacity for signing AMA or to participate in discharge plan. He is recommending that he would invite the ethics committee to the hospital to have a discussion about patient care - *Consulted case management for ethics committee review, awaiting response Upper respiratory infection with congestion: Improving. Chest x-ray showing clear lungs. Nothing acute. Labs drawn, no leukocytosis. Afebrile. Acetaminophen as needed. Cough medication. Recurrent falls. Resolved. Patient moved close to nursing station. Patient denies any neurological symptoms of weakness, paresthesia, loss of bowel or bladder control Orthostatic vitals do show drop in systolic blood pressure when standing. Improved after hydration. MRI of the neck. Multilevel degenerative changes. Mild degree of canal stenosis C5-C6, anterior fusion C6-C7 MRI of thoracic and lumbar spine do not indicate any acute abnormality Carotid ultrasound was unremarkable. Echocardiogram indicate ejection fraction 50-55% without any abnormalities Physical therapy ordered for 5 days a week Mild malnutrition, secondary to poor by mouth intake. Resolved. Albumin 2.8. Prealbumin 19. After review of weight trend, has been gaining weight. Continue Remeron. Dietary consulted who recommended ensure with breakfast lunch and there. May have muffin at bedtime, daily vitamin. Multiple traumatic injuries Patient laceration, subdural hemorrhage, ventricular hemorrhage, nasal fracture, C6 fracture, C1-C2 subluxation, C4 transverse process fracture, right rib fracture, L1 transverse process fracture, right pubic rami fracture Continue c-collar this time, however patient does not wear Follow-up cervical spine CT 102/ indicates no evidence of acute fracture. Postsurgical changes Specialist no longer following patient, patient will require outpatient follow-up if discharge Right breast abscess, Improved. Physical exam shows improvement. Ultrasound does show complex loculated collection measuring 2.4 x 1.7 x 1.8 cm. Representing breast abscess Status post Augmentin 500 mg twice daily for 10 days (end date 10/25/17). Finished Bactrim DS for 18 days Gen. surgery consulted who recommends no intervention at this time. Soft tissue ultrasound shows a improvement of the fluid collection. Outpatient mammogram performed today, 01/25/18. Benign findings, recommendations for follow-up breast ultrasound in 3 months. Hypothyroidism TSH 3.73 Free T4 0.57, free T3 1 0.47 Levothyroxine 25 g daily Monitor TSH every 6-8 weeks. TSH last checked 3.73 on January 21. Continue current treatment. Hypertension Amlodipine 10 mg daily DVT prevention Patient ambulating Sequential compression devices while in bed Records were reviewed. Awaiting case management for discharge planning, No change in current treatment plan. Discharge Planning Due to underlying psychiatric/cognition patient is unsafe discharge until arrangements made by case management. Problem Qualifiers (1) Hypertension: Qualified Codes: I10 - Essential (primary) hypertension Alyssa Means Feb 22, 2018 10:03
[2018-02-22 20:00] VITALS: BP 146/95; PULSE 72; RESP 20; TEMP 97; O2SAT 93
[2018-02-22] MEDS: guaiFENesin/DEXTROMETHORPHAN 200 MG/20 MG/10 ML CUP PO PRN (20:21)
[2018-02-22] MEDS: MIRTAZAPINE 15 MG TAB PO SCH (20:22)
[2018-02-22] MEDS: ACETAMINOPHEN 325 MG TAB PO PRN (20:22)
[2018-02-23] MEDS: LEVOTHYROXINE SODIUM 25 MCG TAB PO SCH (05:53)
[2018-02-23 07:50] VITALS: BP 152/84; PULSE 68; RESP 20; TEMP 96.7; O2SAT 93
[2018-02-23] MEDS: FLUTICASONE PROPIONATE 50 MCG/ACT 16 GM NASAL SPRAY EACH NARE SCH (08:35)
[2018-02-23] MEDS: FLUoxetine HCL 20 MG CAP PO SCH (08:36)
[2018-02-23] MEDS: QUEtiapine FUMARATE 100 MG TAB PO SCH ×2 (08:36→22:04)
[2018-02-23] MEDS: MULTIVITAMIN TAB PO SCH (08:36)
[2018-02-23] MEDS: VALPROIC ACID 250 MG CAP PO SCH ×2 (08:36→22:02)
[2018-02-23] MEDS: LISINOPRIL 5 MG TAB PO SCH (08:36)
--- NOTE | 2018-02-23 11:19 | HHI.PR ---
Subjective Remarks Follow up unsafe discharge due to cognition. Patient seen and examined, lying in bed comfortably in no apparent distress. Sitter at bedside. Plans to go down to cafeteria today for lunch. No acute events overnight. Cough improved. Denies any dyspnea. Vital signs stable. Objective Vitals Vital Signs Date Time Temp Pulse Resp B/P (MAP) Pulse Ox O2 Delivery O2 Flow Rate FiO2 02/23/18 07:50 96.7 68 20 152/84 (106) 93 02/22/18 20:00 97.0 72 20 146/95 (112) 93 I/O 02/22/18 02/22/18 02/22/18 02/23/18 02/23/18 02/23/18 07:00 15:00 23:00 07:00 15:00 23:00 Intake Total 450 ml 222 ml 660 ml Balance 450 ml 222 ml 660 ml Intake Oral 450 ml 222 ml 660 ml # Voids 2 5 4 # Bowel Movements 2 0 2 Imaging Last Impressions Chest X-Ray 02/11/18 0000 Signed Impressions: Service Date/Time: Sunday, February 11, 2018 13:13 - CONCLUSION: 1. Minimal atelectasis/scarring in the left base. Lungs are otherwise clear. 2. 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 Anterior fixation of lower cervical spine. Macrelino Cisneros MD Clavicle X-Ray 12/16/17 0000 Signed Impressions: Service Date/Time: December 19:51 - CONCLUSION: Distal clavicle is fractured but this appears nonacute. No acute fracture demonstrated. Jovany Hayes MD Thoracic Spine MRI 12/01/17 0000 Signed Impressions: Service Date/Time: Friday, December 01, 2017 15:10 - CONCLUSION: Negative for acute process. Vimal Taylor MD FACR Lumbar Spine MRI 12/01/17 0000 Signed Impressions: Service Date/Time: Friday, December 01, 2017 15:10 - CONCLUSION: Negative MRI of the lumbar spine. Vimal Taylor MD FACR Carotid Artery Ultrasound 11/30/17 0000 Signed Impressions: Service Date/Time: Thursday, November 30, 2017 14:34 - CONCLUSION: 1. Mild plaque with no hemodynamically significant stenosis. Vertebral artery flow antegrade. Fadi Carolina MD Cervical Spine MRI 11/28/17 0000 Signed Impressions: Service Date/Time: Tuesday, November 28, 2017 15:10 - CONCLUSION: 1. Multilevel posterior disc osteophyte complexes as described above. 2. Anterior fusion C6- 7. Dylon Haddad MD Knee X-Ray 11/02/17 0000 Signed Impressions: Service Date/Time: Thursday, November 02, 2017 18:51 - CONCLUSION: Intact right knee. Jovany Hayes MD Head CT 11/02/17 0000 Signed Impressions: Service Date/Time: Thursday, November 02, 2017 18:35 - CONCLUSION: 1. No bleed or other acute intracranial abnormality. 2. Previously seen intracranial hemorrhage has resolved. A small area of chronic encephalomalacia has developed of the right frontal lobe. 3. Chronic periventricular white matter changes are again noted. Jovany Hayes MD Breast Ultrasound 10/15/17 0000 Signed Impressions: Service Date/Time: Sunday, October 15, 2017 09:06 - CONCLUSION: Persistent subcutaneous collection at the 12:00 position of the right breast. It has slightly decreased in size since the study dated 09/23/2017 and could represent an infectious process. Consider followup to confirm resolution. Jovany Quezada MD Cervical Spine CT 09/02/17 0000 Signed Impressions: Service Date/Time: August 12:56 - CONCLUSION: Postsurgical changes from anterior cervical plate at C6-7. No evidence of compression deformity or spondylolisthesis. Arun Regan MD Pelvis X-Ray 06/30/17 0000 Signed Impressions: Service Date/Time: Friday, June 30, 2017 12:17 - CONCLUSION: No significant change has occurred. Carlos Capps MD Objective Remarks GENERAL: Well-developed, well-nourished patient in [facility]. SKIN: Warm and dry. No rash. HEAD: Normocephalic. Atraumatic. EYES: Pupils equal and round. No scleral icterus. No injection or drainage. ENT: No nasal bleeding or discharge. Mucous membranes pink and moist. NECK: Supple. Trachea midline. CARDIOVASCULAR: Regular rate and rhythm. S1, S2 noted. No murmur appreciated. RESPIRATORY: No accessory muscle use. Clear to auscultation. Breath sounds equal bilaterally. GASTROINTESTINAL: Abdomen soft, non-tender, nondistended. Normoactive bowel sounds x4. MUSCULOSKELETAL: No obvious deformities. Extremities without clubbing, cyanosis , or edema. NEUROLOGICAL: Awake and alert. No obvious cranial nerve deficits. Motor grossly within normal limits. 5/5 muscle strength in bilateral upper and lower extremities. Normal speech. PSYCHIATRIC: Appropriate mood and affect; insight and judgment normal. A/P Problem List: (1) Alcohol dependence in controlled environment ICD Code: F10.20 - Alcohol dependence, uncomplicated Status: Chronic (2) Facial injury ICD Code: S09.93XA - Unspecified injury of face, initial encounter Status: Acute (3) Fall ICD Code: W19.XXXA - Unspecified fall, initial encounter Status: Acute (4) Hypertension ICD Code: I10 - Essential (primary) hypertension Status: Acute (5) Pelvic fracture ICD Code: S32.9XXA - Fracture of unspecified parts of lumbosacral spine and pelvis, initial encounter for closed fracture Status: Acute (6) C1-C2 subluxation ICD Code: S13.120A - Subluxation of C1/C2 cervical vertebrae, initial encounter Status: Acute (7) C6 cervical fracture ICD Code: S12.500A - Unspecified displaced fracture of sixth cervical vertebra , initial encounter for closed fracture Status: Acute (8) Traumatic brain injury ICD Code: S06.9X9A - Unspecified intracranial injury with loss of consciousness of unspecified duration, initial encounter Status: Acute (9) Nasal fracture ICD Code: S02.2XXA - Fracture of nasal bones, initial encounter for closed fracture Status: Acute (10) Mild neurocognitive disorder ICD Code: G31.84 - Mild cognitive impairment, so stated Status: Acute (11) Intracranial bleed ICD Code: I62.9 - Nontraumatic intracranial hemorrhage, unspecified Status: Acute Assessment and Plan Inability to care for self, unsafe discharge due to cognition - PT and OT recommending supervision at home for safety. - Speech therapy following the patient intermittently for cognitive evaluations. 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 Mini mental state 28/30, recommended avoid antipsychotics and benzodiazepine. Recommending Depakote or carbamazepine. - Patient is medically stable for discharge, however due to underlying psychiatric/cognition patient is unsafe discharge until arrangements made by case management. Case management for discharge planning. - Neuropsychiatry evaluated the patient recommended patient may improve with treatment, however indicates avoid benzodiazepines and antipsychotics - Continue Prozac 40 mg daily - Depakene 500 mg twice daily - Seroquel 100 mg twice daily - *Psychiatry indicated that the patient lacks capacity for signing AMA or to participate in discharge plan. He is recommending that he would invite the ethics committee to the hospital to have a discussion about patient care - *Consulted case management for ethics committee review, awaiting response Upper respiratory infection with congestion: Improving. Chest x-ray showing clear lungs. Nothing acute. Labs drawn, no leukocytosis. Afebrile. Acetaminophen as needed. Cough medication. Recurrent falls. Resolved. Patient moved close to nursing station. Patient denies any neurological symptoms of weakness, paresthesia, loss of bowel or bladder control Orthostatic vitals do show drop in systolic blood pressure when standing. Improved after hydration. MRI of the neck. Multilevel degenerative changes. Mild degree of canal stenosis C5-C6, anterior fusion C6-C7 MRI of thoracic and lumbar spine do not indicate any acute abnormality Carotid ultrasound was unremarkable. Echocardiogram indicate ejection fraction 50-55% without any abnormalities Physical therapy ordered for 5 days a week Mild malnutrition, secondary to poor by mouth intake. Resolved. Albumin 2.8. Prealbumin 19. After review of weight trend, has been gaining weight. Continue Remeron. Dietary consulted who recommended ensure with breakfast lunch and there. May have muffin at bedtime, daily vitamin. Multiple traumatic injuries Patient laceration, subdural hemorrhage, ventricular hemorrhage, nasal fracture, C6 fracture, C1-C2 subluxation, C4 transverse process fracture, right rib fracture, L1 transverse process fracture, right pubic rami fracture Continue c-collar this time, however patient does not wear Follow-up cervical spine CT indicates no evidence of acute fracture. Postsurgical changes Specialist no longer following patient, patient will require outpatient follow-up if discharge Right breast abscess, Improved. Physical exam shows improvement. Ultrasound does show complex loculated collection measuring 2.4 x 1.7 x 1.8 cm. Representing breast abscess Status post Augmentin 500 mg twice daily for 10 days (end date 10/25/17). Finished Bactrim DS for 18 days Gen. surgery consulted who recommends no intervention at this time. Soft tissue ultrasound shows a improvement of the fluid collection. Outpatient mammogram performed today, 01/25/18. Benign findings, recommendations for follow-up breast ultrasound in 3 months. Hypothyroidism TSH 3.73 Free T4 0.57, free T3 1 0.47 Levothyroxine 25 g daily Monitor TSH every 6-8 weeks. TSH last checked 3.73 on January 21. Continue current treatment. Hypertension Amlodipine 10 mg daily DVT prevention Patient ambulating Sequential compression devices while in bed Records were reviewed. Awaiting case management for discharge planning, No change in current treatment plan. Discharge Planning Due to underlying psychiatric/cognition patient is unsafe discharge until arrangements made by case management. Problem Qualifiers (1) Hypertension: Qualified Codes: I10 - Essential (primary) hypertension Alyssa Means Feb 23, 2018 11:18
[2018-02-23 20:00] VITALS: BP 145/71; PULSE 73; RESP 20; TEMP 97.6; O2SAT 93
[2018-02-23] MEDS: MIRTAZAPINE 15 MG TAB PO SCH (22:03)
[2018-02-23] MEDS: ACETAMINOPHEN 325 MG TAB PO PRN (22:05)
[2018-02-24] MEDS: ACETAMINOPHEN 325 MG TAB PO PRN (06:14)
[2018-02-24] MEDS: LEVOTHYROXINE SODIUM 25 MCG TAB PO SCH (06:14)
--- NOTE | 2018-02-24 07:47 | HHI.PR ---
Subjective Remarks Follow-up unsafe discharge due to cognition. Patient seen and examined, lying in bed comfortably no apparent distress. No reports of any acute events overnight. No change in clinical condition. Objective Vitals Vital Signs Date Time Temp Pulse Resp B/P (MAP) Pulse Ox O2 Delivery O2 Flow Rate FiO2 02/23/18 20:00 97.6 73 20 145/71 (95) 93 02/23/18 07:50 96.7 68 20 152/84 (106) 93 I/O 02/23/18 02/23/18 02/23/18 02/24/18 02/24/18 02/24/18 06:59 14:59 22:59 06:59 14:59 22:59 Intake Total 660 ml 300 ml 720 ml Balance 660 ml 300 ml 720 ml Intake Oral 660 ml 300 ml 720 ml # Voids 4 4 4 # Bowel Movements 2 1 1 Imaging Last Impressions Chest X-Ray 02/11/18 0000 Signed Impressions: Service Date/Time: Sunday, February 11, 2018 13:13 - CONCLUSION: 1. Minimal atelectasis/scarring in the left base. Lungs are otherwise clear. 2. 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 Anterior fixation of lower cervical spine. Marcelino Cisneros MD Clavicle X-Ray 12/16/17 0000 Signed Impressions: Service Date/Time: December 19:51 - CONCLUSION: Distal clavicle is fractured but this appears nonacute. No acute fracture demonstrated. Jovany Hayes MD Thoracic Spine MRI 12/01/17 0000 Signed Impressions: Service Date/Time: Friday, December 01, 2017 15:10 - CONCLUSION: Negative for acute process. Vimal Taylor MD FACR Lumbar Spine MRI 12/01/17 0000 Signed Impressions: Service Date/Time: Friday, December 01, 2017 15:10 - CONCLUSION: Negative MRI of the lumbar spine. Vimal Taylor MD FACR Carotid Artery Ultrasound 11/30/17 0000 Signed Impressions: Service Date/Time: Thursday, November 30, 2017 14:34 - CONCLUSION: 1. Mild plaque with no hemodynamically significant stenosis. Vertebral artery flow antegrade. Fadi Carolina MD Cervical Spine MRI 11/28/17 0000 Signed Impressions: Service Date/Time: Tuesday, November 28, 2017 15:10 - CONCLUSION: 1. Multilevel posterior disc osteophyte complexes as described above. 2. Anterior fusion C6- 7. Dylon Haddad MD Knee X-Ray 11/02/17 0000 Signed Impressions: Service Date/Time: Thursday, November 02, 2017 18:51 - CONCLUSION: Intact right knee. Jovany Hayes MD Head CT 11/02/17 0000 Signed Impressions: Service Date/Time: Thursday, November 02, 2017 18:35 - CONCLUSION: 1. No bleed or other acute intracranial abnormality. 2. Previously seen intracranial hemorrhage has resolved. A small area of chronic encephalomalacia has developed of the right frontal lobe. 3. Chronic periventricular white matter changes are again noted. Jovany Hayes MD Breast Ultrasound 10/15/17 0000 Signed Impressions: Service Date/Time: Sunday, October 15, 2017 09:06 - CONCLUSION: Persistent subcutaneous collection at the 12:00 position of the right breast. It has slightly decreased in size since the study dated 09/23/2017 and could represent an infectious process. Consider followup to confirm resolution. Jovany Quezada MD Cervical Spine CT 09/02/17 0000 Signed Impressions: Service Date/Time: August 12:56 - CONCLUSION: Postsurgical changes from anterior cervical plate at C6-7. No evidence of compression deformity or spondylolisthesis. Arun Regan MD Pelvis X-Ray 06/30/17 0000 Signed Impressions: Service Date/Time: Friday, June 30, 2017 12:17 - CONCLUSION: No significant change has occurred. Carlos Capps MD Objective Remarks GENERAL: Well-developed, well-nourished patient in [facility]. SKIN: Warm and dry. No rash. HEAD: Normocephalic. Atraumatic. EYES: Pupils equal and round. No scleral icterus. No injection or drainage. ENT: No nasal bleeding or discharge. Mucous membranes pink and moist. NECK: Supple. Trachea midline. CARDIOVASCULAR: Regular rate and rhythm. S1, S2 noted. No murmur appreciated. RESPIRATORY: No accessory muscle use. Clear to auscultation. Breath sounds equal bilaterally. GASTROINTESTINAL: Abdomen soft, non-tender, nondistended. Normoactive bowel sounds x4. MUSCULOSKELETAL: No obvious deformities. Extremities without clubbing, cyanosis , or edema. NEUROLOGICAL: Awake and alert. No obvious cranial nerve deficits. Motor grossly within normal limits. 5/5 muscle strength in bilateral upper and lower extremities. Normal speech. PSYCHIATRIC: Appropriate mood and affect; insight and judgment normal. A/P Problem List: (1) Alcohol dependence in controlled environment ICD Code: F10.20 - Alcohol dependence, uncomplicated Status: Chronic (2) Facial injury ICD Code: S09.93XA - Unspecified injury of face, initial encounter Status: Acute (3) Fall ICD Code: W19.XXXA - Unspecified fall, initial encounter Status: Acute (4) Hypertension ICD Code: I10 - Essential (primary) hypertension Status: Acute (5) Pelvic fracture ICD Code: S32.9XXA - Fracture of unspecified parts of lumbosacral spine and pelvis, initial encounter for closed fracture Status: Acute (6) C1-C2 subluxation ICD Code: S13.120A - Subluxation of C1/C2 cervical vertebrae, initial encounter Status: Acute (7) C6 cervical fracture ICD Code: S12.500A - Unspecified displaced fracture of sixth cervical vertebra , initial encounter for closed fracture Status: Acute (8) Traumatic brain injury ICD Code: S06.9X9A - Unspecified intracranial injury with loss of consciousness of unspecified duration, initial encounter Status: Acute (9) Nasal fracture ICD Code: S02.2XXA - Fracture of nasal bones, initial encounter for closed fracture Status: Acute (10) Mild neurocognitive disorder ICD Code: G31.84 - Mild cognitive impairment, so stated Status: Acute (11) Intracranial bleed ICD Code: I62.9 - Nontraumatic intracranial hemorrhage, unspecified Status: Acute Assessment and Plan Inability to care for self, unsafe discharge due to cognition - PT and OT recommending supervision at home for safety. - Speech therapy following the patient intermittently for cognitive evaluations. 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 Mini mental state 28/30, recommended avoid antipsychotics and benzodiazepine. Recommending Depakote or carbamazepine. - Patient is medically stable for discharge, however due to underlying psychiatric/cognition patient is unsafe discharge until arrangements made by case management. Case management for discharge planning. - Neuropsychiatry evaluated the patient recommended patient may improve with treatment, however indicates avoid benzodiazepines and antipsychotics - Continue Prozac 40 mg daily - Depakene 500 mg twice daily - Seroquel 100 mg twice daily - *Psychiatry indicated that the patient lacks capacity for signing AMA or to participate in discharge plan. He is recommending that he would invite the ethics committee to the hospital to have a discussion about patient care - *Consulted case management for ethics committee review, awaiting response Upper respiratory infection with congestion: Improving. Chest x-ray showing clear lungs. Nothing acute. Labs drawn, no leukocytosis. Afebrile. Acetaminophen as needed. Cough medication. Recurrent falls. Resolved. Patient moved close to nursing station. Patient denies any neurological symptoms of weakness, paresthesia, loss of bowel or bladder control Orthostatic vitals do show drop in systolic blood pressure when standing. Improved after hydration. MRI of the neck. Multilevel degenerative changes. Mild degree of canal stenosis C5-C6, anterior fusion C6-C7 MRI of thoracic and lumbar spine do not indicate any acute abnormality Carotid ultrasound was unremarkable. Echocardiogram indicate ejection fraction 50-55% without any abnormalities Physical therapy ordered for 5 days a week Mild malnutrition, secondary to poor by mouth intake. Resolved. Albumin 2.8. Prealbumin 19. After review of weight trend, has been gaining weight. Continue Remeron. Dietary consulted who recommended ensure with breakfast lunch and there. May have muffin at bedtime, daily vitamin. Multiple traumatic injuries Patient laceration, subdural hemorrhage, ventricular hemorrhage, nasal fracture, C6 fracture, C1-C2 subluxation, C4 transverse process fracture, right rib fracture, L1 transverse process fracture, right pubic rami fracture Continue c-collar this time, however patient does not wear Follow-up cervical spine CT indicates no evidence of acute fracture. Postsurgical changes Specialist no longer following patient, patient will require outpatient follow-up if discharge Right breast abscess, Improved. Physical exam shows improvement. Ultrasound does show complex loculated collection measuring 2.4 x 1.7 x 1.8 cm. Representing breast abscess Status post Augmentin 500 mg twice daily for 10 days (end date 10/25/17). Finished Bactrim DS for 18 days Gen. surgery consulted who recommends no intervention at this time. Soft tissue ultrasound shows a improvement of the fluid collection. Outpatient mammogram performed today, 01/25/18. Benign findings, recommendations for follow-up breast ultrasound in 3 months. Hypothyroidism TSH 3.73 Free T4 0.57, free T3 1 0.47 Levothyroxine 25 g daily Monitor TSH every 6-8 weeks. TSH last checked 3.73 on January 21. Continue current treatment. Hypertension Amlodipine 10 mg daily DVT prevention Patient ambulating Sequential compression devices while in bed Records were reviewed. Awaiting case management for discharge planning, No change in current treatment plan. Discharge Planning Due to underlying psychiatric/cognition patient is unsafe discharge until arrangements made by case management. Problem Qualifiers (1) Hypertension: Qualified Codes: I10 - Essential (primary) hypertension Alyssa Means Feb 24, 2018 07:47
[2018-02-24 08:00] VITALS: BP 122/63; PULSE 64; RESP 15; TEMP 95; O2SAT 98
[2018-02-24] MEDS: VALPROIC ACID 250 MG CAP PO SCH ×2 (08:10→20:05)
[2018-02-24] MEDS: QUEtiapine FUMARATE 100 MG TAB PO SCH ×2 (08:11→20:04)
[2018-02-24] MEDS: FLUTICASONE PROPIONATE 50 MCG/ACT 16 GM NASAL SPRAY EACH NARE SCH (08:11)
[2018-02-24] MEDS: MULTIVITAMIN TAB PO SCH (08:11)
[2018-02-24] MEDS: FLUoxetine HCL 20 MG CAP PO SCH (08:11)
[2018-02-24] MEDS: LISINOPRIL 5 MG TAB PO SCH (08:11)
[2018-02-24 20:00] VITALS: BP 146/86; PULSE 76; RESP 20; TEMP 98.4; O2SAT 94
[2018-02-24] MEDS: guaiFENesin/DEXTROMETHORPHAN 200 MG/20 MG/10 ML CUP PO PRN (20:05)
[2018-02-24] MEDS: MIRTAZAPINE 15 MG TAB PO SCH (20:05)
[2018-02-25] MEDS: LEVOTHYROXINE SODIUM 25 MCG TAB PO SCH (05:28)
[2018-02-25 08:00] VITALS: BP 153/88; PULSE 67; RESP 15; TEMP 96.8; O2SAT 94
[2018-02-25] MEDS: ERGOCALCIFEROL (VIT D2) 50,000 UNIT CAP PO SCH (09:00)
[2018-02-25] MEDS: LISINOPRIL 5 MG TAB PO SCH (09:56)
[2018-02-25] MEDS: MULTIVITAMIN TAB PO SCH (09:56)
[2018-02-25] MEDS: FLUTICASONE PROPIONATE 50 MCG/ACT 16 GM NASAL SPRAY EACH NARE SCH (09:56)
[2018-02-25] MEDS: VALPROIC ACID 250 MG CAP PO SCH ×2 (09:56→20:48)
[2018-02-25] MEDS: QUEtiapine FUMARATE 100 MG TAB PO SCH ×2 (09:56→20:48)
[2018-02-25] MEDS: FLUoxetine HCL 20 MG CAP PO SCH (09:57)
--- NOTE | 2018-02-25 11:23 | HHI.PR ---
Subjective Remarks Follow-up unsafe discharge due to cognition. Patient seen and examined, lying in bed comfortably no apparent distress. Have been weaning off sitter over the week, patient is doing very well. No signs of or threatening to leave. Patient has been compliant. Denies any new acute events. Has been tolerating p.o. intake, eating well. Ambulating well. No change in clinical condition. Objective Vitals Vital Signs Date Time Temp Pulse Resp B/P (MAP) Pulse Ox O2 Delivery O2 Flow Rate FiO2 02/25/18 08:00 96.8 67 15 153/88 (109) 94 02/24/18 20:00 98.4 76 20 146/86 (106) 94 I/O 02/24/18 02/24/18 02/24/18 02/25/18 02/25/18 02/25/18 07:00 15:00 23:00 07:00 15:00 23:00 Intake Total 720 ml 1000 ml 60 ml Balance 720 ml 1000 ml 60 ml Intake Oral 720 ml 1000 ml 60 ml # Voids 4 3 2 # Bowel Movements 1 0 Imaging Last Impressions Chest X-Ray 02/11/18 0000 Signed Impressions: Service Date/Time: Sunday, February 11, 2018 13:13 - CONCLUSION: 1. Minimal atelectasis/scarring in the left base. Lungs are otherwise clear. 2. 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 Anterior fixation of lower cervical spine. Marcelino Cisneros MD Clavicle X-Ray 12/16/17 0000 Signed Impressions: Service Date/Time: December 19:51 - CONCLUSION: Distal clavicle is fractured but this appears nonacute. No acute fracture demonstrated. Jovany Hayes MD Thoracic Spine MRI 12/01/17 0000 Signed Impressions: Service Date/Time: Friday, December 01, 2017 15:10 - CONCLUSION: Negative for acute process. Vimal Taylor MD FACR Lumbar Spine MRI 12/01/17 0000 Signed Impressions: Service Date/Time: Friday, December 01, 2017 15:10 - CONCLUSION: Negative MRI of the lumbar spine. Vimal Taylor MD FACR Carotid Artery Ultrasound 11/30/17 0000 Signed Impressions: Service Date/Time: Thursday, November 30, 2017 14:34 - CONCLUSION: 1. Mild plaque with no hemodynamically significant stenosis. Vertebral artery flow antegrade. Fadi Carolina MD Cervical Spine MRI 11/28/17 0000 Signed Impressions: Service Date/Time: Tuesday, November 28, 2017 15:10 - CONCLUSION: 1. Multilevel posterior disc osteophyte complexes as described above. 2. Anterior fusion C6- 7. Dylon Haddad MD Knee X-Ray 11/02/17 0000 Signed Impressions: Service Date/Time: Thursday, November 02, 2017 18:51 - CONCLUSION: Intact right knee. Jovany Hayes MD Head CT 11/02/17 0000 Signed Impressions: Service Date/Time: Thursday, November 02, 2017 18:35 - CONCLUSION: 1. No bleed or other acute intracranial abnormality. 2. Previously seen intracranial hemorrhage has resolved. A small area of chronic encephalomalacia has developed of the right frontal lobe. 3. Chronic periventricular white matter changes are again noted. Jovany Hayes MD Breast Ultrasound 10/15/17 0000 Signed Impressions: Service Date/Time: Sunday, October 15, 2017 09:06 - CONCLUSION: Persistent subcutaneous collection at the 12:00 position of the right breast. It has slightly decreased in size since the study dated 09/23/2017 and could represent an infectious process. Consider followup to confirm resolution. Jovany Quezada MD Cervical Spine CT 09/02/17 0000 Signed Impressions: Service Date/Time: August 12:56 - CONCLUSION: Postsurgical changes from anterior cervical plate at C6-7. No evidence of compression deformity or spondylolisthesis. Arun Regan MD Pelvis X-Ray 06/30/17 0000 Signed Impressions: Service Date/Time: Friday, June 30, 2017 12:17 - CONCLUSION: No significant change has occurred. Carlos Capps MD Objective Remarks GENERAL: Well-developed, well-nourished patient in NAD. SKIN: Warm and dry. No rash. HEAD: Normocephalic. Atraumatic. EYES: Pupils equal and round. No scleral icterus. No injection or drainage. ENT: No nasal bleeding or discharge. Mucous membranes pink and moist. NECK: Supple. Trachea midline. CARDIOVASCULAR: Regular rate and rhythm. S1, S2 noted. No murmur appreciated. RESPIRATORY: No accessory muscle use. Clear to auscultation. Breath sounds equal bilaterally. GASTROINTESTINAL: Abdomen soft, non-tender, nondistended. Normoactive bowel sounds x4. MUSCULOSKELETAL: No obvious deformities. Extremities without clubbing, cyanosis , or edema. NEUROLOGICAL: Awake and alert. No obvious cranial nerve deficits. Motor grossly within normal limits. 5/5 muscle strength in bilateral upper and lower extremities. Normal speech. PSYCHIATRIC: Appropriate mood and affect; insight and judgment normal. A/P Problem List: (1) Alcohol dependence in controlled environment ICD Code: F10.20 - Alcohol dependence, uncomplicated Status: Chronic (2) Facial injury ICD Code: S09.93XA - Unspecified injury of face, initial encounter Status: Acute (3) Fall ICD Code: W19.XXXA - Unspecified fall, initial encounter Status: Acute (4) Hypertension ICD Code: I10 - Essential (primary) hypertension Status: Acute (5) Pelvic fracture ICD Code: S32.9XXA - Fracture of unspecified parts of lumbosacral spine and pelvis, initial encounter for closed fracture Status: Acute (6) C1-C2 subluxation ICD Code: S13.120A - Subluxation of C1/C2 cervical vertebrae, initial encounter Status: Acute (7) C6 cervical fracture ICD Code: S12.500A - Unspecified displaced fracture of sixth cervical vertebra , initial encounter for closed fracture Status: Acute (8) Traumatic brain injury ICD Code: S06.9X9A - Unspecified intracranial injury with loss of consciousness of unspecified duration, initial encounter Status: Acute (9) Nasal fracture ICD Code: S02.2XXA - Fracture of nasal bones, initial encounter for closed fracture Status: Acute (10) Mild neurocognitive disorder ICD Code: G31.84 - Mild cognitive impairment, so stated Status: Acute (11) Intracranial bleed ICD Code: I62.9 - Nontraumatic intracranial hemorrhage, unspecified Status: Acute Assessment and Plan Inability to care for self, unsafe discharge due to cognition - PT and OT recommending supervision at home for safety. - Speech therapy following the patient intermittently for cognitive evaluations. 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 Mini mental state 28/30, recommended avoid antipsychotics and benzodiazepine. Recommending Depakote or carbamazepine. - Patient is medically stable for discharge, however due to underlying psychiatric/cognition patient is unsafe discharge until arrangements made by case management. Case management for discharge planning. - Neuropsychiatry evaluated the patient recommended patient may improve with treatment, however indicates avoid benzodiazepines and antipsychotics - Continue Prozac 40 mg daily - Depakene 500 mg twice daily - Seroquel 100 mg twice daily - *Psychiatry indicated that the patient lacks capacity for signing AMA or to participate in discharge plan. He is recommending that he would invite the ethics committee to the hospital to have a discussion about patient care - *Consulted case management for ethics committee review, awaiting response Upper respiratory infection with congestion: Improving. Chest x-ray showing clear lungs. Nothing acute. Labs drawn, no leukocytosis. Afebrile. Acetaminophen as needed. Cough medication. Recurrent falls. Resolved. Patient moved close to nursing station. Patient denies any neurological symptoms of weakness, paresthesia, loss of bowel or bladder control Orthostatic vitals do show drop in systolic blood pressure when standing. Improved after hydration. MRI of the neck. Multilevel degenerative changes. Mild degree of canal stenosis C5-C6, anterior fusion C6-C7 MRI of thoracic and lumbar spine do not indicate any acute abnormality Carotid ultrasound was unremarkable. Echocardiogram indicate ejection fraction 50-55% without any abnormalities Physical therapy ordered for 5 days a week Mild malnutrition, secondary to poor by mouth intake. Resolved. Albumin 2.8. Prealbumin 19. After review of weight trend, has been gaining weight. Continue Remeron. Dietary consulted who recommended ensure with breakfast lunch and there. May have muffin at bedtime, daily vitamin. Multiple traumatic injuries Patient laceration, subdural hemorrhage, ventricular hemorrhage, nasal fracture, C6 fracture, C1-C2 subluxation, C4 transverse process fracture, right rib fracture, L1 transverse process fracture, right pubic rami fracture Continue c-collar this time, however patient does not wear Follow-up cervical spine CT indicates no evidence of acute fracture. Postsurgical changes Specialist no longer following patient, patient will require outpatient follow-up if discharge Right breast abscess, Improved. Physical exam shows improvement. Ultrasound does show complex loculated collection measuring 2.4 x 1.7 x 1.8 cm. Representing breast abscess Status post Augmentin 500 mg twice daily for 10 days (end date 10/25/17). Finished Bactrim DS for 18 days Gen. surgery consulted who recommends no intervention at this time. Soft tissue ultrasound shows a improvement of the fluid collection. Outpatient mammogram performed today, 01/25/18. Benign findings, recommendations for follow-up breast ultrasound in 3 months. Hypothyroidism TSH 3.73 Free T4 0.57, free T3 1 0.47 Levothyroxine 25 g daily Monitor TSH every 6-8 weeks. TSH last checked 3.73 on January 21. Continue current treatment. Hypertension Amlodipine 10 mg daily DVT prevention Patient ambulating Sequential compression devices while in bed Records were reviewed. Awaiting case management for discharge planning, No change in current treatment plan. Discharge Planning Due to underlying psychiatric/cognition patient is unsafe discharge until arrangements made by case management. Problem Qualifiers (1) Hypertension: Qualified Codes: I10 - Essential (primary) hypertension Alyssa Means Feb 25, 2018 11:23
[2018-02-25 20:24] VITALS: BP 161/89; PULSE 67; RESP 16; TEMP 96.9; O2SAT 97
[2018-02-25] MEDS: MIRTAZAPINE 15 MG TAB PO SCH (20:48)
[2018-02-26] MEDS: LEVOTHYROXINE SODIUM 25 MCG TAB PO SCH (04:49)
[2018-02-26 08:00] VITALS: BP 141/79; PULSE 74; RESP 18; TEMP 98.3; O2SAT 92
[2018-02-26] MEDS: QUEtiapine FUMARATE 100 MG TAB PO SCH ×2 (09:13→20:19)
[2018-02-26] MEDS: FLUTICASONE PROPIONATE 50 MCG/ACT 16 GM NASAL SPRAY EACH NARE SCH (09:13)
[2018-02-26] MEDS: MULTIVITAMIN TAB PO SCH (09:13)
[2018-02-26] MEDS: VALPROIC ACID 250 MG CAP PO SCH ×2 (09:14→20:18)
[2018-02-26] MEDS: LISINOPRIL 5 MG TAB PO SCH (09:14)
[2018-02-26] MEDS: FLUoxetine HCL 20 MG CAP PO SCH (09:14)
--- NOTE | 2018-02-26 09:26 | HHI.PR ---
Subjective Remarks Follow-up unsafe discharge due to cognition. Patient seen and examined, lying in bed comfortably no apparent distress. Patient has been doing well without a sitter. Patient states she feels overall improved. No change in clinical condition. Objective Vitals Vital Signs Date Time Temp Pulse Resp B/P (MAP) Pulse Ox O2 Delivery O2 Flow Rate FiO2 02/26/18 08:00 98.3 74 18 141/79 (99) 92 02/25/18 20:24 96.9 67 16 161/89 (113) 97 I/O 02/25/18 02/25/18 02/25/18 02/26/18 02/26/18 02/26/18 07:00 15:00 23:00 07:00 15:00 23:00 Intake Total 60 ml Balance 60 ml Intake Oral 60 ml # Voids 2 # Bowel Movements 0 Imaging Last Impressions Chest X-Ray 02/11/18 0000 Signed Impressions: Service Date/Time: Sunday, February 11, 2018 13:13 - CONCLUSION: 1. Minimal atelectasis/scarring in the left base. Lungs are otherwise clear. 2. 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 Anterior fixation of lower cervical spine. Marcelino Cisneros MD Clavicle X-Ray 12/16/17 0000 Signed Impressions: Service Date/Time: December 19:51 - CONCLUSION: Distal clavicle is fractured but this appears nonacute. No acute fracture demonstrated. Jovany Hayes MD Thoracic Spine MRI 12/01/17 0000 Signed Impressions: Service Date/Time: Friday, December 01, 2017 15:10 - CONCLUSION: Negative for acute process. Vimal Taylor MD FACR Lumbar Spine MRI 12/01/17 0000 Signed Impressions: Service Date/Time: Friday, December 01, 2017 15:10 - CONCLUSION: Negative MRI of the lumbar spine. Vimal Taylor MD FACR Carotid Artery Ultrasound 11/30/17 0000 Signed Impressions: Service Date/Time: Thursday, November 30, 2017 14:34 - CONCLUSION: 1. Mild plaque with no hemodynamically significant stenosis. Vertebral artery flow antegrade. Fadi Carolina MD Cervical Spine MRI 11/28/17 0000 Signed Impressions: Service Date/Time: Tuesday, November 28, 2017 15:10 - CONCLUSION: 1. Multilevel posterior disc osteophyte complexes as described above. 2. Anterior fusion C6- 7. Dylon Haddad MD Knee X-Ray 11/02/17 0000 Signed Impressions: Service Date/Time: Thursday, November 02, 2017 18:51 - CONCLUSION: Intact right knee. Jovany Hayes MD Head CT 11/02/17 0000 Signed Impressions: Service Date/Time: Thursday, November 02, 2017 18:35 - CONCLUSION: 1. No bleed or other acute intracranial abnormality. 2. Previously seen intracranial hemorrhage has resolved. A small area of chronic encephalomalacia has developed of the right frontal lobe. 3. Chronic periventricular white matter changes are again noted. Jovany Hayes MD Breast Ultrasound 10/15/17 0000 Signed Impressions: Service Date/Time: Sunday, October 15, 2017 09:06 - CONCLUSION: Persistent subcutaneous collection at the 12:00 position of the right breast. It has slightly decreased in size since the study dated 09/23/2017 and could represent an infectious process. Consider followup to confirm resolution. Jovany Quezada MD Cervical Spine CT 09/02/17 0000 Signed Impressions: Service Date/Time: August 12:56 - CONCLUSION: Postsurgical changes from anterior cervical plate at C6-7. No evidence of compression deformity or spondylolisthesis. Arun Regan MD Pelvis X-Ray 06/30/17 0000 Signed Impressions: Service Date/Time: Friday, June 30, 2017 12:17 - CONCLUSION: No significant change has occurred. Carlos Capps MD Objective Remarks GENERAL: Well-developed, well-nourished patient in NAD. SKIN: Warm and dry. No rash. HEAD: Normocephalic. Atraumatic. EYES: Pupils equal and round. No scleral icterus. No injection or drainage. ENT: No nasal bleeding or discharge. Mucous membranes pink and moist. NECK: Supple. Trachea midline. CARDIOVASCULAR: Regular rate and rhythm. S1, S2 noted. No murmur appreciated. RESPIRATORY: No accessory muscle use. Clear to auscultation. Breath sounds equal bilaterally. GASTROINTESTINAL: Abdomen soft, non-tender, nondistended. Normoactive bowel sounds x4. MUSCULOSKELETAL: No obvious deformities. Extremities without clubbing, cyanosis , or edema. NEUROLOGICAL: Awake and alert. No obvious cranial nerve deficits. Motor grossly within normal limits. 5/5 muscle strength in bilateral upper and lower extremities. Normal speech. PSYCHIATRIC: Appropriate mood and affect; insight and judgment normal. A/P Problem List: (1) Alcohol dependence in controlled environment ICD Code: F10.20 - Alcohol dependence, uncomplicated Status: Chronic (2) Facial injury ICD Code: S09.93XA - Unspecified injury of face, initial encounter Status: Acute (3) Fall ICD Code: W19.XXXA - Unspecified fall, initial encounter Status: Acute (4) Hypertension ICD Code: I10 - Essential (primary) hypertension Status: Acute (5) Pelvic fracture ICD Code: S32.9XXA - Fracture of unspecified parts of lumbosacral spine and pelvis, initial encounter for closed fracture Status: Acute (6) C1-C2 subluxation ICD Code: S13.120A - Subluxation of C1/C2 cervical vertebrae, initial encounter Status: Acute (7) C6 cervical fracture ICD Code: S12.500A - Unspecified displaced fracture of sixth cervical vertebra , initial encounter for closed fracture Status: Acute (8) Traumatic brain injury ICD Code: S06.9X9A - Unspecified intracranial injury with loss of consciousness of unspecified duration, initial encounter Status: Acute (9) Nasal fracture ICD Code: S02.2XXA - Fracture of nasal bones, initial encounter for closed fracture Status: Acute (10) Mild neurocognitive disorder ICD Code: G31.84 - Mild cognitive impairment, so stated Status: Acute (11) Intracranial bleed ICD Code: I62.9 - Nontraumatic intracranial hemorrhage, unspecified Status: Acute Assessment and Plan Inability to care for self, unsafe discharge due to cognition - PT and OT recommending supervision at home for safety. - Speech therapy following the patient intermittently for cognitive evaluations. 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 Mini mental state 28/30, recommended avoid antipsychotics and benzodiazepine. Recommending Depakote or carbamazepine. - Patient is medically stable for discharge, however due to underlying psychiatric/cognition patient is unsafe discharge until arrangements made by case management. Case management for discharge planning. - Neuropsychiatry evaluated the patient recommended patient may improve with treatment, however indicates avoid benzodiazepines and antipsychotics - Continue Prozac 40 mg daily - Depakene 500 mg twice daily - Seroquel 100 mg twice daily - *Psychiatry indicated that the patient lacks capacity for signing AMA or to participate in discharge plan. He is recommending that he would invite the ethics committee to the hospital to have a discussion about patient care - *Consulted case management for ethics committee review, awaiting response Upper respiratory infection with congestion: Improving. Chest x-ray showing clear lungs. Nothing acute. Labs drawn, no leukocytosis. Afebrile. Acetaminophen as needed. Cough medication. Recurrent falls. Resolved. Patient moved close to nursing station. Patient denies any neurological symptoms of weakness, paresthesia, loss of bowel or bladder control Orthostatic vitals do show drop in systolic blood pressure when standing. Improved after hydration. MRI of the neck. Multilevel degenerative changes. Mild degree of canal stenosis C5-C6, anterior fusion C6-C7 MRI of thoracic and lumbar spine do not indicate any acute abnormality Carotid ultrasound was unremarkable. Echocardiogram indicate ejection fraction 50-55% without any abnormalities Physical therapy ordered for 5 days a week Mild malnutrition, secondary to poor by mouth intake. Resolved. Albumin 2.8. Prealbumin 19. After review of weight trend, has been gaining weight. Continue Remeron. Dietary consulted who recommended ensure with breakfast lunch and there. May have muffin at bedtime, daily vitamin. Multiple traumatic injuries Patient laceration, subdural hemorrhage, ventricular hemorrhage, nasal fracture, C6 fracture, C1-C2 subluxation, C4 transverse process fracture, right rib fracture, L1 transverse process fracture, right pubic rami fracture Continue c-collar this time, however patient does not wear Follow-up cervical spine CT 1026/ indicates no evidence of acute fracture. Postsurgical changes Specialist no longer following patient, patient will require outpatient follow-up if discharge Right breast abscess, Improved. Physical exam shows improvement. Ultrasound does show complex loculated collection measuring 2.4 x 1.7 x 1.8 cm. Representing breast abscess Status post Augmentin 500 mg twice daily for 10 days (end date 10/25/17). Finished Bactrim DS for 18 days Gen. surgery consulted who recommends no intervention at this time. Soft tissue ultrasound shows a improvement of the fluid collection. Outpatient mammogram performed today, 01/25/18. Benign findings, recommendations for follow-up breast ultrasound in 3 months. Hypothyroidism TSH 3.73 Free T4 0.57, free T3 1 0.47 Levothyroxine 25 g daily Monitor TSH every 6-8 weeks. TSH last checked 3.73 on January 21. Continue current treatment. Hypertension Amlodipine 10 mg daily DVT prevention Patient ambulating Sequential compression devices while in bed Records were reviewed. Awaiting case management for discharge planning, No change in current treatment plan. Discharge Planning Due to underlying psychiatric/cognition patient is unsafe discharge until arrangements made by case management. Problem Qualifiers (1) Hypertension: Qualified Codes: I10 - Essential (primary) hypertension Alyssa Means Feb 26, 2018 09:26
[2018-02-26 20:00] VITALS: BP 138/73; PULSE 72; RESP 16; TEMP 97.9; O2SAT 97
[2018-02-26] MEDS: MIRTAZAPINE 15 MG TAB PO SCH (20:18)
[2018-02-27] MEDS: LEVOTHYROXINE SODIUM 25 MCG TAB PO SCH (05:56)
[2018-02-27 08:00] VITALS: BP 142/95; PULSE 68; RESP 18; TEMP 98.6; O2SAT 96
[2018-02-27] MEDS: MULTIVITAMIN TAB PO SCH (08:37)
[2018-02-27] MEDS: LISINOPRIL 5 MG TAB PO SCH (08:37)
[2018-02-27] MEDS: FLUoxetine HCL 20 MG CAP PO SCH (08:37)
[2018-02-27] MEDS: QUEtiapine FUMARATE 100 MG TAB PO SCH ×2 (08:37→22:24)
[2018-02-27] MEDS: VALPROIC ACID 250 MG CAP PO SCH ×2 (08:37→22:25)
[2018-02-27] MEDS: FLUTICASONE PROPIONATE 50 MCG/ACT 16 GM NASAL SPRAY EACH NARE SCH (08:40)
--- NOTE | 2018-02-27 09:49 | HHI.PR ---
Subjective Remarks Follow-up unsafe discharge due to cognition. Patient seen and examined, lying in bed comfortably. No change in clinical condition. Doing well. Patient is doing well without center in room, continue to monitor. Vital signs stable. Objective Vitals Vital Signs Date Time Temp Pulse Resp B/P (MAP) Pulse Ox O2 Delivery O2 Flow Rate FiO2 02/27/18 08:00 98.6 68 18 142/95 (111) 96 02/27/18 04:00 02/26/18 20:00 97.9 72 16 138/73 (94) 97 I/O 02/26/18 02/26/18 02/26/18 02/27/18 02/27/18 02/27/18 07:00 15:00 23:00 07:00 15:00 23:00 Intake Total 720 ml 240 ml Balance 720 ml 240 ml Intake Oral 720 ml 240 ml # Voids 5 4 # Bowel Movements 1 1 Imaging Last Impressions Chest X-Ray 02/11/18 0000 Signed Impressions: Service Date/Time: Sunday, February 11, 2018 13:13 - CONCLUSION: 1. Minimal atelectasis/scarring in the left base. Lungs are otherwise clear. 2. 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 Anterior fixation of lower cervical spine. Marcelino Cisneros MD Clavicle X-Ray 12/16/17 0000 Signed Impressions: Service Date/Time: December 19:51 - CONCLUSION: Distal clavicle is fractured but this appears nonacute. No acute fracture demonstrated. Jovany Hayes MD Thoracic Spine MRI 12/01/17 0000 Signed Impressions: Service Date/Time: Friday, December 01, 2017 15:10 - CONCLUSION: Negative for acute process. Vimal Taylor MD FACR Lumbar Spine MRI 12/01/17 0000 Signed Impressions: Service Date/Time: Friday, December 01, 2017 15:10 - CONCLUSION: Negative MRI of the lumbar spine. Vimal Taylor MD FACR Carotid Artery Ultrasound 11/30/17 0000 Signed Impressions: Service Date/Time: Thursday, November 30, 2017 14:34 - CONCLUSION: 1. Mild plaque with no hemodynamically significant stenosis. Vertebral artery flow antegrade. Fadi Carolina MD Cervical Spine MRI 11/28/17 0000 Signed Impressions: Service Date/Time: Tuesday, November 28, 2017 15:10 - CONCLUSION: 1. Multilevel posterior disc osteophyte complexes as described above. 2. Anterior fusion C6- 7. Dylon Haddad MD Knee X-Ray 11/02/17 0000 Signed Impressions: Service Date/Time: Thursday, November 02, 2017 18:51 - CONCLUSION: Intact right knee. Jovany Hayes MD Head CT 11/02/17 0000 Signed Impressions: Service Date/Time: Thursday, November 02, 2017 18:35 - CONCLUSION: 1. No bleed or other acute intracranial abnormality. 2. Previously seen intracranial hemorrhage has resolved. A small area of chronic encephalomalacia has developed of the right frontal lobe. 3. Chronic periventricular white matter changes are again noted. Jovany Hayes MD Breast Ultrasound 10/15/17 0000 Signed Impressions: Service Date/Time: Sunday, October 15, 2017 09:06 - CONCLUSION: Persistent subcutaneous collection at the 12:00 position of the right breast. It has slightly decreased in size since the study dated 09/23/2017 and could represent an infectious process. Consider followup to confirm resolution. Jovany Quezada MD Cervical Spine CT 09/02/17 0000 Signed Impressions: Service Date/Time: August 12:56 - CONCLUSION: Postsurgical changes from anterior cervical plate at C6-7. No evidence of compression deformity or spondylolisthesis. Arun Regan MD Pelvis X-Ray 06/30/17 0000 Signed Impressions: Service Date/Time: Friday, June 30, 2017 12:17 - CONCLUSION: No significant change has occurred. Carlos Capps MD Objective Remarks GENERAL: Well-developed, well-nourished patient in NAD. SKIN: Warm and dry. No rash. HEAD: Normocephalic. Atraumatic. EYES: Pupils equal and round. No scleral icterus. No injection or drainage. ENT: No nasal bleeding or discharge. Mucous membranes pink and moist. NECK: Supple. Trachea midline. CARDIOVASCULAR: Regular rate and rhythm. S1, S2 noted. No murmur appreciated. RESPIRATORY: No accessory muscle use. Clear to auscultation. Breath sounds equal bilaterally. GASTROINTESTINAL: Abdomen soft, non-tender, nondistended. Normoactive bowel sounds x4. MUSCULOSKELETAL: No obvious deformities. Extremities without clubbing, cyanosis , or edema. NEUROLOGICAL: Awake and alert. No obvious cranial nerve deficits. Motor grossly within normal limits. 5/5 muscle strength in bilateral upper and lower extremities. Normal speech. PSYCHIATRIC: Appropriate mood and affect; insight and judgment normal. A/P Problem List: (1) Alcohol dependence in controlled environment ICD Code: F10.20 - Alcohol dependence, uncomplicated Status: Chronic (2) Facial injury ICD Code: S09.93XA - Unspecified injury of face, initial encounter Status: Acute (3) Fall ICD Code: W19.XXXA - Unspecified fall, initial encounter Status: Acute (4) Hypertension ICD Code: I10 - Essential (primary) hypertension Status: Acute (5) Pelvic fracture ICD Code: S32.9XXA - Fracture of unspecified parts of lumbosacral spine and pelvis, initial encounter for closed fracture Status: Acute (6) C1-C2 subluxation ICD Code: S13.120A - Subluxation of C1/C2 cervical vertebrae, initial encounter Status: Acute (7) C6 cervical fracture ICD Code: S12.500A - Unspecified displaced fracture of sixth cervical vertebra , initial encounter for closed fracture Status: Acute (8) Traumatic brain injury ICD Code: S06.9X9A - Unspecified intracranial injury with loss of consciousness of unspecified duration, initial encounter Status: Acute (9) Nasal fracture ICD Code: S02.2XXA - Fracture of nasal bones, initial encounter for closed fracture Status: Acute (10) Mild neurocognitive disorder ICD Code: G31.84 - Mild cognitive impairment, so stated Status: Acute (11) Intracranial bleed ICD Code: I62.9 - Nontraumatic intracranial hemorrhage, unspecified Status: Acute Assessment and Plan Inability to care for self, unsafe discharge due to cognition - PT and OT recommending supervision at home for safety. - Speech therapy following the patient intermittently for cognitive evaluations. 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 Mini mental state 28/30, recommended avoid antipsychotics and benzodiazepine. Recommending Depakote or carbamazepine. - Patient is medically stable for discharge, however due to underlying psychiatric/cognition patient is unsafe discharge until arrangements made by case management. Case management for discharge planning. - Neuropsychiatry evaluated the patient recommended patient may improve with treatment, however indicates avoid benzodiazepines and antipsychotics - Continue Prozac 40 mg daily - Depakene 500 mg twice daily - Seroquel 100 mg twice daily - *Psychiatry indicated that the patient lacks capacity for signing AMA or to participate in discharge plan. He is recommending that he would invite the ethics committee to the hospital to have a discussion about patient care - *Consulted case management for ethics committee review, awaiting response Upper respiratory infection with congestion: Improving. Chest x-ray showing clear lungs. Nothing acute. Labs drawn, no leukocytosis. Afebrile. Acetaminophen as needed. Cough medication. Recurrent falls. Resolved. Patient moved close to nursing station. Patient denies any neurological symptoms of weakness, paresthesia, loss of bowel or bladder control Orthostatic vitals do show drop in systolic blood pressure when standing. Improved after hydration. MRI of the neck. Multilevel degenerative changes. Mild degree of canal stenosis C5-C6, anterior fusion C6-C7 MRI of thoracic and lumbar spine do not indicate any acute abnormality Carotid ultrasound was unremarkable. Echocardiogram indicate ejection fraction 50-55% without any abnormalities Physical therapy ordered for 5 days a week Mild malnutrition, secondary to poor by mouth intake. Resolved. Albumin 2.8. Prealbumin 19. After review of weight trend, has been gaining weight. Continue Remeron. Dietary consulted who recommended ensure with breakfast lunch and there. May have muffin at bedtime, daily vitamin. Multiple traumatic injuries Patient laceration, subdural hemorrhage, ventricular hemorrhage, nasal fracture, C6 fracture, C1-C2 subluxation, C4 transverse process fracture, right rib fracture, L1 transverse process fracture, right pubic rami fracture Continue c-collar this time, however patient does not wear Follow-up cervical spine CT indicates no evidence of acute fracture. Postsurgical changes Specialist no longer following patient, patient will require outpatient follow-up if discharge Right breast abscess, Improved. Physical exam shows improvement. Ultrasound does show complex loculated collection measuring 2.4 x 1.7 x 1.8 cm. Representing breast abscess Status post Augmentin 500 mg twice daily for 10 days (end date 10/25/17). Finished Bactrim DS for 18 days Gen. surgery consulted who recommends no intervention at this time. Soft tissue ultrasound shows a improvement of the fluid collection. Outpatient mammogram performed today, 01/25/18. Benign findings, recommendations for follow-up breast ultrasound in 3 months. Hypothyroidism TSH 3.73 Free T4 0.57, free T3 1 0.47 Levothyroxine 25 g daily Monitor TSH every 6-8 weeks. TSH last checked 3.73 on January 21. Continue current treatment. Hypertension Amlodipine 10 mg daily DVT prevention Patient ambulating Sequential compression devices while in bed Records were reviewed. Awaiting case management for discharge planning, No change in current treatment plan. Discharge Planning Due to underlying psychiatric/cognition patient is unsafe discharge until arrangements made by case management. Problem Qualifiers (1) Hypertension: Qualified Codes: I10 - Essential (primary) hypertension Alyssa Means Feb 27, 2018 09:49
[2018-02-27 21:00] VITALS: BP 126/79; PULSE 87; RESP 18; TEMP 97.1; O2SAT 95
[2018-02-27] MEDS: MIRTAZAPINE 15 MG TAB PO SCH (22:25)
[2018-02-28] MEDS: LEVOTHYROXINE SODIUM 25 MCG TAB PO SCH (05:43)
[2018-02-28 08:00] VITALS: BP 134/85; PULSE 70; RESP 20; TEMP 97.4; O2SAT 95
[2018-02-28 08:34] VITALS: BP 134/85
[2018-02-28] MEDS: QUEtiapine FUMARATE 100 MG TAB PO SCH ×2 (08:36→20:05)
[2018-02-28] MEDS: FLUoxetine HCL 20 MG CAP PO SCH (08:36)
[2018-02-28] MEDS: FLUTICASONE PROPIONATE 50 MCG/ACT 16 GM NASAL SPRAY EACH NARE SCH (08:37)
[2018-02-28] MEDS: LISINOPRIL 5 MG TAB PO SCH (08:37)
[2018-02-28] MEDS: VALPROIC ACID 250 MG CAP PO SCH ×2 (08:37→20:05)
[2018-02-28] MEDS: MULTIVITAMIN TAB PO SCH (08:37)
--- NOTE | 2018-02-28 09:38 | HHI.PR ---
Subjective Remarks Follow-up unsafe discharge due to cognition. Patient seen and examined, lying in bed comfortably no apparent distress. Sitter has been discontinued. Patient has been doing very well. No change in clinical condition. Vital signs are stable afebrile. Eating well. He relating well. Objective Vitals Vital Signs Date Time Temp Pulse Resp B/P (MAP) Pulse Ox O2 Delivery O2 Flow Rate FiO2 02/28/18 08:34 134/85 (101) 02/28/18 08:00 97.4 70 20 134/85 (101) 95 02/27/18 21:00 97.1 87 18 126/79 (95) 95 I/O 02/27/18 02/27/18 02/27/18 02/28/18 02/28/18 02/28/18 07:00 15:00 23:00 07:00 15:00 23:00 Intake Total 240 ml 720 ml 480 ml 120 ml Balance 240 ml 720 ml 480 ml 120 ml Intake Oral 240 ml 720 ml 480 ml 120 ml # Voids 4 3 4 # Bowel Movements 1 2 1 Imaging Last Impressions Chest X-Ray 02/11/18 0000 Signed Impressions: Service Date/Time: Sunday, February 11, 2018 13:13 - CONCLUSION: 1. Minimal atelectasis/scarring in the left base. Lungs are otherwise clear. 2. 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 Anterior fixation of lower cervical spine. Marcelino Cisneros MD Clavicle X-Ray 12/16/17 0000 Signed Impressions: Service Date/Time: December 19:51 - CONCLUSION: Distal clavicle is fractured but this appears nonacute. No acute fracture demonstrated. Jovany Hayes MD Thoracic Spine MRI 12/01/17 0000 Signed Impressions: Service Date/Time: Friday, December 01, 2017 15:10 - CONCLUSION: Negative for acute process. Vimal Taylor MD FACR Lumbar Spine MRI 12/01/17 0000 Signed Impressions: Service Date/Time: Friday, December 01, 2017 15:10 - CONCLUSION: Negative MRI of the lumbar spine. Vimal Taylor MD FACR Carotid Artery Ultrasound 11/30/17 0000 Signed Impressions: Service Date/Time: Thursday, November 30, 2017 14:34 - CONCLUSION: 1. Mild plaque with no hemodynamically significant stenosis. Vertebral artery flow antegrade. Fadi Carolina MD Cervical Spine MRI 11/28/17 0000 Signed Impressions: Service Date/Time: Tuesday, November 28, 2017 15:10 - CONCLUSION: 1. Multilevel posterior disc osteophyte complexes as described above. 2. Anterior fusion C6- 7. Dylon Haddad MD Knee X-Ray 11/02/17 0000 Signed Impressions: Service Date/Time: Thursday, November 02, 2017 18:51 - CONCLUSION: Intact right knee. Jovany Hayes MD Head CT 11/02/17 0000 Signed Impressions: Service Date/Time: Thursday, November 02, 2017 18:35 - CONCLUSION: 1. No bleed or other acute intracranial abnormality. 2. Previously seen intracranial hemorrhage has resolved. A small area of chronic encephalomalacia has developed of the right frontal lobe. 3. Chronic periventricular white matter changes are again noted. Jovany Hayes MD Breast Ultrasound 10/15/17 0000 Signed Impressions: Service Date/Time: Sunday, October 15, 2017 09:06 - CONCLUSION: Persistent subcutaneous collection at the 12:00 position of the right breast. It has slightly decreased in size since the study dated 09/23/2017 and could represent an infectious process. Consider followup to confirm resolution. Jovany Quezada MD Cervical Spine CT 09/02/17 0000 Signed Impressions: Service Date/Time: August 12:56 - CONCLUSION: Postsurgical changes from anterior cervical plate at C6-7. No evidence of compression deformity or spondylolisthesis. Arun Regan MD Pelvis X-Ray 06/30/17 0000 Signed Impressions: Service Date/Time: Friday, June 30, 2017 12:17 - CONCLUSION: No significant change has occurred. Carlos Capps MD Objective Remarks GENERAL: Well-developed, well-nourished patient in NAD. SKIN: Warm and dry. No rash. HEAD: Normocephalic. Atraumatic. EYES: Pupils equal and round. No scleral icterus. No injection or drainage. ENT: No nasal bleeding or discharge. Mucous membranes pink and moist. NECK: Supple. Trachea midline. CARDIOVASCULAR: Regular rate and rhythm. S1, S2 noted. No murmur appreciated. RESPIRATORY: No accessory muscle use. Clear to auscultation. Breath sounds equal bilaterally. GASTROINTESTINAL: Abdomen soft, non-tender, nondistended. Normoactive bowel sounds x4. MUSCULOSKELETAL: No obvious deformities. Extremities without clubbing, cyanosis , or edema. NEUROLOGICAL: Awake and alert. No obvious cranial nerve deficits. Motor grossly within normal limits. 5/5 muscle strength in bilateral upper and lower extremities. Normal speech. PSYCHIATRIC: Appropriate mood and affect; insight and judgment normal. A/P Problem List: (1) Alcohol dependence in controlled environment ICD Code: F10.20 - Alcohol dependence, uncomplicated Status: Chronic (2) Facial injury ICD Code: S09.93XA - Unspecified injury of face, initial encounter Status: Acute (3) Fall ICD Code: W19.XXXA - Unspecified fall, initial encounter Status: Acute (4) Hypertension ICD Code: I10 - Essential (primary) hypertension Status: Acute (5) Pelvic fracture ICD Code: S32.9XXA - Fracture of unspecified parts of lumbosacral spine and pelvis, initial encounter for closed fracture Status: Acute (6) C1-C2 subluxation ICD Code: S13.120A - Subluxation of C1/C2 cervical vertebrae, initial encounter Status: Acute (7) C6 cervical fracture ICD Code: S12.500A - Unspecified displaced fracture of sixth cervical vertebra , initial encounter for closed fracture Status: Acute (8) Traumatic brain injury ICD Code: S06.9X9A - Unspecified intracranial injury with loss of consciousness of unspecified duration, initial encounter Status: Acute (9) Nasal fracture ICD Code: S02.2XXA - Fracture of nasal bones, initial encounter for closed fracture Status: Acute (10) Mild neurocognitive disorder ICD Code: G31.84 - Mild cognitive impairment, so stated Status: Acute (11) Intracranial bleed ICD Code: I62.9 - Nontraumatic intracranial hemorrhage, unspecified Status: Acute Assessment and Plan Inability to care for self, unsafe discharge due to cognition - PT and OT recommending supervision at home for safety. - Speech therapy following the patient intermittently for cognitive evaluations. 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 Mini mental state 28/30, recommended avoid antipsychotics and benzodiazepine. Recommending Depakote or carbamazepine. - Patient is medically stable for discharge, however due to underlying psychiatric/cognition patient is unsafe discharge until arrangements made by case management. Case management for discharge planning. - Neuropsychiatry evaluated the patient recommended patient may improve with treatment, however indicates avoid benzodiazepines and antipsychotics - Continue Prozac 40 mg daily - Depakene 500 mg twice daily - Seroquel 100 mg twice daily - *Psychiatry indicated that the patient lacks capacity for signing AMA or to participate in discharge plan. He is recommending that he would invite the ethics committee to the hospital to have a discussion about patient care - *Consulted case management for ethics committee review, awaiting response Recurrent falls. Resolved. Patient moved close to nursing station. Patient denies any neurological symptoms of weakness, paresthesia, loss of bowel or bladder control Orthostatic vitals do show drop in systolic blood pressure when standing. Improved after hydration. MRI of the neck. Multilevel degenerative changes. Mild degree of canal stenosis C5-C6, anterior fusion C6-C7 MRI of thoracic and lumbar spine do not indicate any acute abnormality Carotid ultrasound was unremarkable. Echocardiogram indicate ejection fraction 50-55% without any abnormalities Physical therapy ordered for 5 days a week Mild malnutrition, secondary to poor by mouth intake. Resolved. Albumin 2.8. Prealbumin 19. After review of weight trend, has been gaining weight. Continue Remeron. Dietary consulted who recommended ensure with breakfast lunch and there. May have muffin at bedtime, daily vitamin. Multiple traumatic injuries Patient laceration, subdural hemorrhage, ventricular hemorrhage, nasal fracture, C6 fracture, C1-C2 subluxation, C4 transverse process fracture, right rib fracture, L1 transverse process fracture, right pubic rami fracture Continue c-collar this time, however patient does not wear Follow-up cervical spine CT 1026/ indicates no evidence of acute fracture. Postsurgical changes Specialist no longer following patient, patient will require outpatient follow-up if discharge Right breast abscess, Improved. Physical exam shows improvement. Ultrasound does show complex loculated collection measuring 2.4 x 1.7 x 1.8 cm. Representing breast abscess Status post Augmentin 500 mg twice daily for 10 days (end date 10/25/17). Finished Bactrim DS for 18 days Gen. surgery consulted who recommends no intervention at this time. Soft tissue ultrasound shows a improvement of the fluid collection. Outpatient mammogram performed today, 01/25/18. Benign findings, recommendations for follow-up breast ultrasound in 3 months. Hypothyroidism TSH 3.73 Free T4 0.57, free T3 1 0.47 Levothyroxine 25 g daily Monitor TSH every 6-8 weeks. TSH last checked 3.73 on January 21. Continue current treatment. Hypertension Amlodipine 10 mg daily DVT prevention Patient ambulating Sequential compression devices while in bed Records were reviewed. Awaiting case management for discharge planning, No change in current treatment plan. Discharge Planning Due to underlying psychiatric/cognition patient is unsafe discharge until arrangements made by case management. Problem Qualifiers (1) Hypertension: Qualified Codes: I10 - Essential (primary) hypertension Alyssa Means Feb 28, 2018 09:38
[2018-02-28 12:00] VITALS: BP 126/71; PULSE 78; RESP 20; TEMP 97.6; O2SAT 95
[2018-02-28 15:43] VITALS: BP 132/76; PULSE 74; RESP 19; TEMP 98.6; O2SAT 97
[2018-02-28 20:00] VITALS: BP 163/97; PULSE 72; RESP 20; TEMP 97.5; O2SAT 93
[2018-02-28] MEDS: MIRTAZAPINE 15 MG TAB PO SCH (20:05)
[2018-02-28] MEDS: ACETAMINOPHEN 325 MG TAB PO PRN (20:06)
[2018-02-28] MEDS: guaiFENesin/DEXTROMETHORPHAN 200 MG/20 MG/10 ML CUP PO PRN (20:07)
[2018-03-01] MEDS: LEVOTHYROXINE SODIUM 25 MCG TAB PO SCH (05:49)
[2018-03-01 07:47] VITALS: BP 118/80; PULSE 81; RESP 20; TEMP 97.3; O2SAT 95
[2018-03-01] MEDS: MULTIVITAMIN TAB PO SCH (08:39)
[2018-03-01] MEDS: VALPROIC ACID 250 MG CAP PO SCH ×2 (08:40→21:37)
[2018-03-01] MEDS: QUEtiapine FUMARATE 100 MG TAB PO SCH ×2 (08:40→21:37)
[2018-03-01] MEDS: LISINOPRIL 5 MG TAB PO SCH (08:40)
[2018-03-01] MEDS: FLUoxetine HCL 20 MG CAP PO SCH (08:41)
[2018-03-01] MEDS: FLUTICASONE PROPIONATE 50 MCG/ACT 16 GM NASAL SPRAY EACH NARE SCH (08:43)
--- NOTE | 2018-03-01 11:21 | HHI.PR ---
Subjective Remarks Patient seen and examined today for follow-up on unsafe discharge due to cognition. Patient is doing much better. No longer requiring sitter. Vital signs are stable, patient remains afebrile Objective Vitals Vital Signs Date Time Temp Pulse Resp B/P (MAP) Pulse Ox O2 Delivery O2 Flow Rate FiO2 03/01/18 07:47 97.3 81 20 118/80 (93) 95 02/28/18 21:06 20 02/28/18 20:00 97.5 72 20 163/97 (119) 93 02/28/18 15:43 98.6 74 19 132/76 (94) 97 02/28/18 12:00 97.6 78 20 126/71 (89) 95 I/O 02/28/18 02/28/18 02/28/18 03/01/18 03/01/18 03/01/18 07:00 15:00 23:00 07:00 15:00 23:00 Intake Total 480 ml 870 ml 1800 ml 120 ml Output Total 500 ml Balance 480 ml 370 ml 1800 ml 120 ml Intake Oral 480 ml 870 ml 1800 ml 120 ml Output Urine Total 500 ml # Voids 4 3 4 # Bowel Movements 1 0 1 2 Objective Remarks GENERAL: Well-developed, well-nourished, in no acute distress. alert and orientation waxes and wanes daily HEENT: Head is normocephalic without any lesions or masses noted. Facial features are symmetric. Eyes: Extraocular muscles are intact. Conjunctivae were clear. CARDIAC: Regular rhythm, regular rate. S1/S2 are heard. No murmurs gallops or rubs. LUNGS: Clear to auscultation bilaterally. No wheeze, rhonchi or rales. No use of accessory muscles on inspiration or expiration. EXTREMITIES: No edema, pulses are equal bilaterally. No cyanosis or clubbing NEUROLOGY: Mood and affect appear appropriate. Cranial nerves II through XII grossly intact moving all extremities, speech is clear Urinary Catheter: No Vascular Central Line Catheter: No A/P Assessment and Plan Inability to care for self, unsafe discharge due to cognition, improving Initially he was indicated patient cannot walk, patient is walking at this time, PT and OT recommending supervision at home for safety Speech therapy following the patient intermittently for cognitive evaluations. 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 MIni mental state 28/30, recommended avoid antipsychotics and benzodiazepine. Recommended Depakote or carbamazepine Patient is medically stable for discharge, however due to underlying psychiatric/cognition patient is unsafe discharge until arrangements made by case management Case management for discharge planning Neuropsychiatry evaluated the patient recommended patient may improve with treatment, however indicates avoid benzodiazepines and antipsychotics Continue Prozac 40 mg daily Depakene 500 mg twice daily Seroquel 100 mg twice daily Reconsult speech therapy for cognition evaluation, possible reconsult psychiatry Mild malnutrition, secondary to poor by mouth intake Albumin 2.8 Prealbumin 19 Continue Remeron Dietary consulted who recommended ensure with breakfast lunch and there. May have muffin at bedtime, daily vitamin Recurrent falls, resolved Patient moved close to nursing station Patient does state that she is having neck pain Patient denies any neurological symptoms of weakness, paresthesia, loss of bowel or bladder control Orthostatic vitals do show drop in systolic blood pressure when standing. Improved after hydration Status post 2 L normal saline and continue monitor orthostatic vitals MRI of the neck. Multilevel degenerative changes. Mild degree of canal stenosis C5-C6, anterior fusion C6-C7 MRI of thoracic and lumbar spine do not indicate any acute abnormality Clavicle x-ray shows nonacute distal clavicle fracture. Carotid ultrasound was unremarkable Echocardiogram indicate ejection fraction 50-55% without any abnormalities Physical therapy ordered for 5 days a week Multiple traumatic injuries, Patient laceration, subdural hemorrhage, ventricular hemorrhage, nasal fracture, C6 fracture, C1-C2 subluxation, C4 transverse process fracture, right rib fracture, L1 transverse process fracture, right pubic rami fracture Continue c-collar this time, however patient does not wear Follow-up cervical spine CT 1026/17 indicates no evidence of acute fracture. Postsurgical changes Specialist no longer following patient, patient will require outpatient follow-up if discharge Right breast abscess, improved Physical exam patient does have a erythematous area with drainage Ultrasound does show complex loculated collection measuring 2.4 x 1.7 x 1.8 cm. Representing breast abscess Status post Augmentin 500 mg twice daily for 10 days and Bactrim DS for 18 days Gen. surgery consulted who recommends no intervention at this time, Soft tissue ultrasound shows a improvement of the fluid collection. Outpatient mammogram performed 01/25/18. Benign findings, recommendations for follow-up breast ultrasound in 3 months. Hypothyroidism TSH 5.11, follow-up TSH 3.73 Free T4 0.57, free T3 1 0.47 Levothyroxine 25 g daily Monitor TSH every 6-8 weeks Hypertension, improved Continue monitor blood pressure Amlodipine 10 mg daily Lisinopril 5 mg daily DVT prevention Patient ambulating Sequential compression devices while in bed Medical records were reviewed, no change in current treatment plan, awaiting case management discharge planning. Discharge Planning Case management for discharge planning, Conrado Mariee Mar 01, 2018 11:21
[2018-03-01 11:45] VITALS: BP 135/74; PULSE 72; RESP 20; TEMP 97.2; O2SAT 95
[2018-03-01 15:41] VITALS: BP 147/71; PULSE 82; RESP 20; TEMP 98; O2SAT 100
[2018-03-01 18:13] VITALS: BP 147/84; PULSE 71; RESP 20; TEMP 97.3; O2SAT 94
[2018-03-01 20:00] VITALS: BP 159/101; PULSE 70; RESP 20; TEMP 97.7; O2SAT 93
[2018-03-01] MEDS: MIRTAZAPINE 15 MG TAB PO SCH (21:37)
[2018-03-01] MEDS: guaiFENesin/DEXTROMETHORPHAN 200 MG/20 MG/10 ML CUP PO PRN (21:37)
[2018-03-02] MEDS: LEVOTHYROXINE SODIUM 25 MCG TAB PO SCH (05:44)
[2018-03-02 07:30] VITALS: BP 136/81; PULSE 68; RESP 20; TEMP 97.4; O2SAT 94
--- NOTE | 2018-03-02 07:54 | HHI.PR ---
Subjective Remarks Patient seen and examined today for follow-up on unsafe discharge due to cognition. Patient doing well today. Denies any new complaints. No change in clinical status. Objective Vitals Vital Signs Date Time Temp Pulse Resp B/P (MAP) Pulse Ox O2 Delivery O2 Flow Rate FiO2 03/01/18 20:00 97.7 70 20 159/101 (120) 93 03/01/18 18:13 97.3 71 20 147/84 (105) 94 03/01/18 15:41 98.0 82 20 147/71 (96) 100 03/01/18 11:45 97.2 72 20 135/74 (94) 95 03/01/18 07:47 97.3 81 20 118/80 (93) 95 I/O 03/01/18 03/01/18 03/01/18 03/02/18 03/02/18 03/02/18 07:00 15:00 23:00 07:00 15:00 23:00 Intake Total 120 ml 120 ml Balance 120 ml 120 ml Intake Oral 120 ml 120 ml # Voids 4 1 # Bowel Movements 2 0 Objective Remarks GENERAL: Well-developed, well-nourished, in no acute distress. alert and orientation waxes and wanes daily HEENT: Head is normocephalic without any lesions or masses noted. Facial features are symmetric. Eyes: Extraocular muscles are intact. Conjunctivae were clear. CARDIAC: Regular rhythm, regular rate. S1/S2 are heard. No murmurs gallops or rubs. LUNGS: Clear to auscultation bilaterally. No wheeze, rhonchi or rales. No use of accessory muscles on inspiration or expiration. EXTREMITIES: No edema, pulses are equal bilaterally. No cyanosis or clubbing NEUROLOGY: Mood and affect appear appropriate. Cranial nerves II through XII grossly intact moving all extremities, speech is clear Urinary Catheter: No Vascular Central Line Catheter: No A/P Assessment and Plan Inability to care for self, unsafe discharge due to cognition, improving Initially he was indicated patient cannot walk, patient is walking at this time, PT and OT recommending supervision at home for safety Speech therapy following the patient intermittently for cognitive evaluations. 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 MIni mental state 28/30, recommended avoid antipsychotics and benzodiazepine. Recommended Depakote or carbamazepine Patient is medically stable for discharge, however due to underlying psychiatric/cognition patient is unsafe discharge until arrangements made by case management Case management for discharge planning Neuropsychiatry evaluated the patient recommended patient may improve with treatment, however indicates avoid benzodiazepines and antipsychotics Continue Prozac 40 mg daily Depakene 500 mg twice daily Seroquel 100 mg twice daily Reconsult speech therapy for cognition evaluation, they reevaluated the patient patient remains MOCA 23/30, no change Mild malnutrition, secondary to poor by mouth intake Albumin 2.8 Prealbumin 19 Continue Remeron Dietary consulted who recommended ensure with breakfast lunch and there. May have muffin at bedtime, daily vitamin Recurrent falls, resolved Patient moved close to nursing station Patient does state that she is having neck pain Patient denies any neurological symptoms of weakness, paresthesia, loss of bowel or bladder control Orthostatic vitals do show drop in systolic blood pressure when standing. Improved after hydration Status post 2 L normal saline and continue monitor orthostatic vitals MRI of the neck. Multilevel degenerative changes. Mild degree of canal stenosis C5-C6, anterior fusion C6-C7 MRI of thoracic and lumbar spine do not indicate any acute abnormality Clavicle x-ray shows nonacute distal clavicle fracture. Carotid ultrasound was unremarkable Echocardiogram indicate ejection fraction 50-55% without any abnormalities Physical therapy ordered for 5 days a week Multiple traumatic injuries, Patient laceration, subdural hemorrhage, ventricular hemorrhage, nasal fracture, C6 fracture, C1-C2 subluxation, C4 transverse process fracture, right rib fracture, L1 transverse process fracture, right pubic rami fracture Continue c-collar this time, however patient does not wear Follow-up cervical spine CT 1026/17 indicates no evidence of acute fracture. Postsurgical changes Specialist no longer following patient, patient will require outpatient follow-up if discharge Right breast abscess, improved Physical exam patient does have a erythematous area with drainage Ultrasound does show complex loculated collection measuring 2.4 x 1.7 x 1.8 cm. Representing breast abscess Status post Augmentin 500 mg twice daily for 10 days and Bactrim DS for 18 days Gen. surgery consulted who recommends no intervention at this time, Soft tissue ultrasound shows a improvement of the fluid collection. Outpatient mammogram performed 01/25/18. Benign findings, recommendations for follow-up breast ultrasound in 3 months. Hypothyroidism TSH 5.11, follow-up TSH 3.73 Free T4 0.57, free T3 1 0.47 Levothyroxine 25 g daily Monitor TSH every 6-8 weeks Hypertension, Continue monitor blood pressure Amlodipine 10 mg daily Increased to lisinopril 10 mg daily DVT prevention Patient ambulating Sequential compression devices while in bed Medical records were reviewed, awaiting case management discharge planning. no change in current treatment plan, Discharge Planning Case management for discharge planning, Conrado Mariee Mar 02, 2018 07:54
[2018-03-02] MEDS: QUEtiapine FUMARATE 100 MG TAB PO SCH ×2 (08:22→22:30)
[2018-03-02] MEDS: LISINOPRIL 10 MG TAB PO SCH (08:22)
[2018-03-02] MEDS: MULTIVITAMIN TAB PO SCH (08:22)
[2018-03-02] MEDS: VALPROIC ACID 250 MG CAP PO SCH ×2 (08:23→22:31)
[2018-03-02] MEDS: FLUoxetine HCL 20 MG CAP PO SCH (08:23)
[2018-03-02] MEDS: FLUTICASONE PROPIONATE 50 MCG/ACT 16 GM NASAL SPRAY EACH NARE SCH (08:26)
[2018-03-02 20:00] VITALS: BP 174/94; PULSE 73; RESP 20; TEMP 97.1; O2SAT 94
[2018-03-02] MEDS: MIRTAZAPINE 15 MG TAB PO SCH (22:31)
[2018-03-03] MEDS: LEVOTHYROXINE SODIUM 25 MCG TAB PO SCH (06:21)
[2018-03-03 08:00] VITALS: BP 141/80; PULSE 67; RESP 20; TEMP 98; O2SAT 95
--- NOTE | 2018-03-03 08:34 | HHI.PR ---
Subjective Remarks Patient seen and examined today for follow-up on unsafe discharge due to cognition. Patient is doing much better. She has not had a sitter in over 3 days. There is been no signs of patient trying to elope. She is ambulating and functioning on her own. Objective Vitals Vital Signs Date Time Temp Pulse Resp B/P (MAP) Pulse Ox O2 Delivery O2 Flow Rate FiO2 03/02/18 20:00 97.1 73 20 174/94 (120) 94 I/O 03/02/18 03/02/18 03/02/18 03/03/18 03/03/18 03/03/18 07:00 15:00 23:00 07:00 15:00 23:00 Intake Total 120 ml 622 ml 480 ml Balance 120 ml 622 ml 480 ml Intake Oral 120 ml 622 ml 480 ml # Voids 1 1 4 # Bowel Movements 0 1 2 Objective Remarks GENERAL: Well-developed, well-nourished, in no acute distress. alert and orientation waxes and wanes daily HEENT: Head is normocephalic without any lesions or masses noted. Facial features are symmetric. Eyes: Extraocular muscles are intact. Conjunctivae were clear. CARDIAC: Regular rhythm, regular rate. S1/S2 are heard. No murmurs gallops or rubs. LUNGS: Clear to auscultation bilaterally. No wheeze, rhonchi or rales. No use of accessory muscles on inspiration or expiration. EXTREMITIES: No edema, pulses are equal bilaterally. No cyanosis or clubbing NEUROLOGY: Mood and affect appear appropriate. Cranial nerves II through XII grossly intact moving all extremities, speech is clear Urinary Catheter: No Vascular Central Line Catheter: No A/P Assessment and Plan Inability to care for self, unsafe discharge due to cognition, improving Initially he was indicated patient cannot walk, patient is walking at this time, PT and OT recommending supervision at home for safety Speech therapy following the patient intermittently for cognitive evaluations. 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 MIni mental state 28/30, recommended avoid antipsychotics and benzodiazepine. Recommended Depakote or carbamazepine Patient is medically stable for discharge, however due to underlying psychiatric/cognition patient is unsafe discharge until arrangements made by case management Case management for discharge planning Neuropsychiatry evaluated the patient recommended patient may improve with treatment, however indicates avoid benzodiazepines and antipsychotics Continue Prozac 40 mg daily Depakene 500 mg twice daily Seroquel 100 mg twice daily Reconsult speech therapy for cognition evaluation, they reevaluated the patient patient remains MOCA , no change Patient no longer requiring sitter. Patient is functioning and ambulating on her own. Patient without any attempts of elopement. Mild malnutrition, secondary to poor by mouth intake Albumin 2.8 Prealbumin 19 Continue Remeron Dietary consulted who recommended ensure with breakfast lunch and there. May have muffin at bedtime, daily vitamin Recurrent falls, resolved Patient moved close to nursing station Patient does state that she is having neck pain Patient denies any neurological symptoms of weakness, paresthesia, loss of bowel or bladder control Orthostatic vitals do show drop in systolic blood pressure when standing. Improved after hydration Status post 2 L normal saline and continue monitor orthostatic vitals MRI of the neck. Multilevel degenerative changes. Mild degree of canal stenosis C5-C6, anterior fusion C6-C7 MRI of thoracic and lumbar spine do not indicate any acute abnormality Clavicle x-ray shows nonacute distal clavicle fracture. Carotid ultrasound was unremarkable Echocardiogram indicate ejection fraction 50-55% without any abnormalities Physical therapy ordered for 5 days a week Multiple traumatic injuries, Patient laceration, subdural hemorrhage, ventricular hemorrhage, nasal fracture, C6 fracture, C1-C2 subluxation, C4 transverse process fracture, right rib fracture, L1 transverse process fracture, right pubic rami fracture Continue c-collar this time, however patient does not wear Follow-up cervical spine CT 1026/17 indicates no evidence of acute fracture. Postsurgical changes Specialist no longer following patient, patient will require outpatient follow-up if discharge Right breast abscess, improved Physical exam patient does have a erythematous area with drainage Ultrasound does show complex loculated collection measuring 2.4 x 1.7 x 1.8 cm. Representing breast abscess Status post Augmentin 500 mg twice daily for 10 days and Bactrim DS for 18 days Gen. surgery consulted who recommends no intervention at this time, Soft tissue ultrasound shows a improvement of the fluid collection. Outpatient mammogram performed 01/25/18. Benign findings, recommendations for follow-up breast ultrasound in 3 months. Hypothyroidism TSH 5.11, follow-up TSH 3.73 Free T4 0.57, free T3 1 0.47 Levothyroxine 25 g daily Monitor TSH every 6-8 weeks Hypertension, Continue monitor blood pressure Amlodipine 10 mg daily Increased to lisinopril 10 mg daily DVT prevention Patient ambulating Sequential compression devices while in bed Medical records were reviewed, no change in current treatment plan, awaiting case management discharge planning. Discharge Planning Case management for discharge planning, Conrado Mariee Mar 03, 2018 08:34
[2018-03-03] MEDS: FLUTICASONE PROPIONATE 50 MCG/ACT 16 GM NASAL SPRAY EACH NARE SCH (09:27)
[2018-03-03] MEDS: LISINOPRIL 10 MG TAB PO SCH (09:28)
[2018-03-03] MEDS: VALPROIC ACID 250 MG CAP PO SCH ×2 (09:28→20:44)
[2018-03-03] MEDS: QUEtiapine FUMARATE 100 MG TAB PO SCH ×2 (09:28→20:44)
[2018-03-03] MEDS: FLUoxetine HCL 20 MG CAP PO SCH (09:28)
[2018-03-03] MEDS: MULTIVITAMIN TAB PO SCH (09:29)
[2018-03-03 12:00] VITALS: BP 140/84; PULSE 75; RESP 20; TEMP 98.4; O2SAT 96
[2018-03-03 16:00] VITALS: BP 147/86; PULSE 80; RESP 20; TEMP 98.1; O2SAT 95
[2018-03-03 20:00] VITALS: BP 165/98; PULSE 73; RESP 20; TEMP 96.9; O2SAT 93
[2018-03-03] MEDS: MIRTAZAPINE 15 MG TAB PO SCH (20:44)
[2018-03-03] MEDS: ACETAMINOPHEN 325 MG TAB PO PRN (20:48)
[2018-03-04 01:48] VITALS: BP 141/82; PULSE 62; RESP 20; TEMP 96.3; O2SAT 94
[2018-03-04] MEDS: LEVOTHYROXINE SODIUM 25 MCG TAB PO SCH (06:35)
--- NOTE | 2018-03-04 07:52 | HHI.PR ---
Subjective Remarks Patient seen and examined today for follow-up on unsafe discharge due to cognition. Patient doing quite well. Patient functioning on her own. There has not been any issues since sitter has been removed. Patient still with some mildly elevated blood pressure. Patient remains afebrile Objective Vitals Vital Signs Date Time Temp Pulse Resp B/P (MAP) Pulse Ox O2 Delivery O2 Flow Rate FiO2 03/04/18 01:48 96.3 62 20 141/82 (101) 94 03/03/18 20:00 96.9 73 20 165/98 (120) 93 03/03/18 16:00 98.1 80 20 147/86 (106) 95 03/03/18 12:00 98.4 75 20 140/84 (102) 96 03/03/18 12:00 98.4 75 20 140/84 (102) 96 03/03/18 08:00 98.0 67 20 141/80 (100) 95 I/O 03/03/18 03/03/18 03/03/18 03/04/18 03/04/18 03/04/18 07:00 15:00 23:00 07:00 15:00 23:00 Intake Total 480 ml 120 ml 750 ml 480 ml Balance 480 ml 120 ml 750 ml 480 ml Intake Oral 480 ml 120 ml 750 ml 480 ml # Voids 4 2 3 # Bowel Movements 2 1 1 Objective Remarks GENERAL: Well-developed, well-nourished, in no acute distress. alert and orientation waxes and wanes daily HEENT: Head is normocephalic without any lesions or masses noted. Facial features are symmetric. Eyes: Extraocular muscles are intact. Conjunctivae were clear. CARDIAC: Regular rhythm, regular rate. S1/S2 are heard. No murmurs gallops or rubs. LUNGS: Clear to auscultation bilaterally. No wheeze, rhonchi or rales. No use of accessory muscles on inspiration or expiration. EXTREMITIES: No edema, pulses are equal bilaterally. No cyanosis or clubbing NEUROLOGY: Mood and affect appear appropriate. Cranial nerves II through XII grossly intact moving all extremities, speech is clear Urinary Catheter: No Vascular Central Line Catheter: No A/P Assessment and Plan Inability to care for self, unsafe discharge due to cognition, improving Initially he was indicated patient cannot walk, patient is walking at this time, PT and OT recommending supervision at home for safety Speech therapy following the patient intermittently for cognitive evaluations. 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 MIni mental state 28/30, recommended avoid antipsychotics and benzodiazepine. Recommended Depakote or carbamazepine Patient is medically stable for discharge, however due to underlying psychiatric/cognition patient is unsafe discharge until arrangements made by case management Case management for discharge planning Neuropsychiatry evaluated the patient recommended patient may improve with treatment, however indicates avoid benzodiazepines and antipsychotics Continue Prozac 40 mg daily Depakene 500 mg twice daily Seroquel 100 mg twice daily Reconsult speech therapy for cognition evaluation, they reevaluated the patient patient remains MOCA 23/30, no change Patient no longer requiring sitter. Patient is functioning and ambulating on her own. Patient without any attempts of elopement. Mild malnutrition, secondary to poor by mouth intake Albumin 2.8 Prealbumin 19 Continue Remeron Dietary consulted who recommended ensure with breakfast lunch and there. May have muffin at bedtime, daily vitamin Recurrent falls, resolved Patient moved close to nursing station Patient does state that she is having neck pain Patient denies any neurological symptoms of weakness, paresthesia, loss of bowel or bladder control Orthostatic vitals do show drop in systolic blood pressure when standing. Improved after hydration Status post 2 L normal saline and continue monitor orthostatic vitals MRI of the neck. Multilevel degenerative changes. Mild degree of canal stenosis C5-C6, anterior fusion C6-C7 MRI of thoracic and lumbar spine do not indicate any acute abnormality Clavicle x-ray shows nonacute distal clavicle fracture. Carotid ultrasound was unremarkable Echocardiogram indicate ejection fraction 50-55% without any abnormalities Physical therapy ordered for 5 days a week Multiple traumatic injuries, Patient laceration, subdural hemorrhage, ventricular hemorrhage, nasal fracture, C6 fracture, C1-C2 subluxation, C4 transverse process fracture, right rib fracture, L1 transverse process fracture, right pubic rami fracture Continue c-collar this time, however patient does not wear Follow-up cervical spine CT indicates no evidence of acute fracture. Postsurgical changes Specialist no longer following patient, patient will require outpatient follow-up if discharge Right breast abscess, improved Physical exam patient does have a erythematous area with drainage Ultrasound does show complex loculated collection measuring 2.4 x 1.7 x 1.8 cm. Representing breast abscess Status post Augmentin 500 mg twice daily for 10 days and Bactrim DS for 18 days Gen. surgery consulted who recommends no intervention at this time, Soft tissue ultrasound shows a improvement of the fluid collection. Outpatient mammogram performed 01/25/18. Benign findings, recommendations for follow-up breast ultrasound in 3 months. Hypothyroidism TSH 5.11, follow-up TSH 3.73 Free T4 0.57, free T3 1 0.47 Levothyroxine 25 g daily Monitor TSH every 6-8 weeks Hypertension, Continue monitor blood pressure Amlodipine 10 mg daily Lisinopril 10 mg daily, add lisinopril 5 mg at bedtime DVT prevention Patient ambulating Sequential compression devices while in bed Discharge Planning Case management for discharge planning, Conrado Mariee Mar 04, 2018 07:52
[2018-03-04 08:00] VITALS: BP 136/79; PULSE 64; RESP 20; TEMP 96.9; O2SAT 96
[2018-03-04] MEDS: FLUTICASONE PROPIONATE 50 MCG/ACT 16 GM NASAL SPRAY EACH NARE SCH (08:07)
[2018-03-04] MEDS: VALPROIC ACID 250 MG CAP PO SCH ×2 (08:07→20:43)
[2018-03-04] MEDS: QUEtiapine FUMARATE 100 MG TAB PO SCH ×2 (08:07→20:43)
[2018-03-04] MEDS: LISINOPRIL 10 MG TAB PO SCH (08:07)
[2018-03-04] MEDS: FLUoxetine HCL 20 MG CAP PO SCH (08:08)
[2018-03-04] MEDS: MULTIVITAMIN TAB PO SCH (08:08)
[2018-03-04] MEDS: ERGOCALCIFEROL (VIT D2) 50,000 UNIT CAP PO SCH (08:08)
[2018-03-04 20:00] VITALS: BP 138/111; PULSE 83; RESP 16; TEMP 98.1; O2SAT 92
[2018-03-04] MEDS: LISINOPRIL 5 MG TAB PO SCH (20:43)
[2018-03-04] MEDS: MIRTAZAPINE 15 MG TAB PO SCH (20:43)
[2018-03-05] MEDS: LEVOTHYROXINE SODIUM 25 MCG TAB PO SCH (05:59)
[2018-03-05 08:00] VITALS: BP 140/86; PULSE 56; RESP 20; TEMP 97.6; O2SAT 97
[2018-03-05] MEDS: MULTIVITAMIN TAB PO SCH (08:32)
[2018-03-05] MEDS: LISINOPRIL 10 MG TAB PO SCH (08:32)
[2018-03-05] MEDS: QUEtiapine FUMARATE 100 MG TAB PO SCH ×2 (08:32→21:23)
[2018-03-05] MEDS: FLUTICASONE PROPIONATE 50 MCG/ACT 16 GM NASAL SPRAY EACH NARE SCH (08:32)
[2018-03-05] MEDS: VALPROIC ACID 250 MG CAP PO SCH ×2 (08:33→21:22)
[2018-03-05] MEDS: FLUoxetine HCL 20 MG CAP PO SCH (08:35)
--- NOTE | 2018-03-05 09:48 | HHI.PR ---
Subjective Remarks Patient seen and examined today for follow-up on unsafe discharge due to cognition. Patient continues to do great. No sitter, ambulating on her own. Functioning on her own. Awaiting case management discharge planning. Objective Vitals Vital Signs Date Time Temp Pulse Resp B/P (MAP) Pulse Ox O2 Delivery O2 Flow Rate FiO2 03/05/18 08:00 97.6 56 20 140/86 (104) 97 03/04/18 20:00 98.1 83 16 138/111 (120) 92 I/O 03/04/18 03/04/18 03/04/18 03/05/18 03/05/18 03/05/18 07:00 15:00 23:00 07:00 15:00 23:00 Intake Total 480 ml 120 ml 1000 ml 120 ml Balance 480 ml 120 ml 1000 ml 120 ml Intake Oral 480 ml 120 ml 1000 ml 120 ml # Voids 3 # Bowel Movements 1 Objective Remarks GENERAL: Well-developed, well-nourished, in no acute distress. alert and orientation waxes and wanes daily HEENT: Head is normocephalic without any lesions or masses noted. Facial features are symmetric. Eyes: Extraocular muscles are intact. Conjunctivae were clear. CARDIAC: Regular rhythm, regular rate. S1/S2 are heard. No murmurs gallops or rubs. LUNGS: Clear to auscultation bilaterally. No wheeze, rhonchi or rales. No use of accessory muscles on inspiration or expiration. EXTREMITIES: No edema, pulses are equal bilaterally. No cyanosis or clubbing NEUROLOGY: Mood and affect appear appropriate. Cranial nerves II through XII grossly intact moving all extremities, speech is clear Urinary Catheter: No Vascular Central Line Catheter: No A/P Assessment and Plan Inability to care for self, unsafe discharge due to cognition, improving Initially he was indicated patient cannot walk, patient is walking at this time, PT and OT recommending supervision at home for safety Speech therapy following the patient intermittently for cognitive evaluations. 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 MIni mental state 28/30, recommended avoid antipsychotics and benzodiazepine. Recommended Depakote or carbamazepine Patient is medically stable for discharge, however due to underlying psychiatric/cognition patient is unsafe discharge until arrangements made by case management Case management for discharge planning Neuropsychiatry evaluated the patient recommended patient may improve with treatment, however indicates avoid benzodiazepines and antipsychotics Continue Prozac 40 mg daily Depakene 500 mg twice daily Seroquel 100 mg twice daily Reconsult speech therapy for cognition evaluation, they reevaluated the patient patient remains MOCA , no change Patient no longer requiring sitter. Patient is functioning and ambulating on her own. Patient without any attempts of elopement. Mild malnutrition, secondary to poor by mouth intake Albumin 2.8 Prealbumin 19 Continue Remeron Dietary consulted who recommended ensure with breakfast lunch and there. May have muffin at bedtime, daily vitamin Recurrent falls, resolved Patient moved close to nursing station Patient does state that she is having neck pain Patient denies any neurological symptoms of weakness, paresthesia, loss of bowel or bladder control Orthostatic vitals do show drop in systolic blood pressure when standing. Improved after hydration Status post 2 L normal saline and continue monitor orthostatic vitals MRI of the neck. Multilevel degenerative changes. Mild degree of canal stenosis C5-C6, anterior fusion C6-C7 MRI of thoracic and lumbar spine do not indicate any acute abnormality Clavicle x-ray shows nonacute distal clavicle fracture. Carotid ultrasound was unremarkable Echocardiogram indicate ejection fraction 50-55% without any abnormalities Physical therapy ordered for 5 days a week Multiple traumatic injuries, Patient laceration, subdural hemorrhage, ventricular hemorrhage, nasal fracture, C6 fracture, C1-C2 subluxation, C4 transverse process fracture, right rib fracture, L1 transverse process fracture, right pubic rami fracture Continue c-collar this time, however patient does not wear Follow-up cervical spine CT 1026/17 indicates no evidence of acute fracture. Postsurgical changes Specialist no longer following patient, patient will require outpatient follow-up if discharge Right breast abscess, improved Physical exam patient does have a erythematous area with drainage Ultrasound does show complex loculated collection measuring 2.4 x 1.7 x 1.8 cm. Representing breast abscess Status post Augmentin 500 mg twice daily for 10 days and Bactrim DS for 18 days Gen. surgery consulted who recommends no intervention at this time, Soft tissue ultrasound shows a improvement of the fluid collection. Outpatient mammogram performed 01/25/18. Benign findings, recommendations for follow-up breast ultrasound in 3 months. Hypothyroidism TSH 5.11, follow-up TSH 3.73 Free T4 0.57, free T3 1 0.47 Levothyroxine 25 g daily Monitor TSH every 6-8 weeks Hypertension, Continue monitor blood pressure Amlodipine 10 mg daily Lisinopril 10 mg daily, lisinopril 5 mg at bedtime DVT prevention Patient ambulating Sequential compression devices while in bed Medical records are reviewed. No change in current treatment plan. Awaiting case management for discharge planning Discharge Planning Case management for discharge planning, Conrado Mariee Mar 05, 2018 09:48
[2018-03-05 20:00] VITALS: BP 176/88; PULSE 71; RESP 18; TEMP 98.1; O2SAT 93
[2018-03-05] MEDS: MIRTAZAPINE 15 MG TAB PO SCH (21:22)
[2018-03-05] MEDS: LISINOPRIL 5 MG TAB PO SCH (21:23)
[2018-03-06] MEDS: LEVOTHYROXINE SODIUM 25 MCG TAB PO SCH (06:14)
[2018-03-06 08:03] VITALS: BP 128/92; PULSE 93; RESP 20; TEMP 96.7; O2SAT 93
[2018-03-06] MEDS: LISINOPRIL 10 MG TAB PO SCH (08:38)
[2018-03-06] MEDS: MULTIVITAMIN TAB PO SCH (08:38)
[2018-03-06] MEDS: VALPROIC ACID 250 MG CAP PO SCH ×2 (08:38→22:52)
[2018-03-06] MEDS: QUEtiapine FUMARATE 100 MG TAB PO SCH ×2 (08:38→22:51)
[2018-03-06] MEDS: FLUoxetine HCL 20 MG CAP PO SCH (08:38)
[2018-03-06] MEDS: FLUTICASONE PROPIONATE 50 MCG/ACT 16 GM NASAL SPRAY EACH NARE SCH (08:38)
--- NOTE | 2018-03-06 08:51 | HHI.PR ---
Subjective Remarks Patient seen and examined today for follow-up on unsafe discharge due to cognition. Patient is doing well today. Denies any new complaints. Vital signs are stable, patient remains afebrile. Objective Vitals Vital Signs Date Time Temp Pulse Resp B/P (MAP) Pulse Ox O2 Delivery O2 Flow Rate FiO2 03/06/18 08:03 96.7 93 20 128/92 (104) 93 03/05/18 20:00 98.1 71 18 176/88 (117) 93 I/O 03/05/18 03/05/18 03/05/18 03/06/18 03/06/18 03/06/18 07:00 15:00 23:00 07:00 15:00 23:00 Intake Total 120 ml 0 ml Balance 120 ml 0 ml Intake Oral 120 ml IV Total 0 ml Objective Remarks GENERAL: Well-developed, well-nourished, in no acute distress. alert and orientation waxes and wanes daily HEENT: Head is normocephalic without any lesions or masses noted. Facial features are symmetric. Eyes: Extraocular muscles are intact. Conjunctivae were clear. CARDIAC: Regular rhythm, regular rate. S1/S2 are heard. No murmurs gallops or rubs. LUNGS: Clear to auscultation bilaterally. No wheeze, rhonchi or rales. No use of accessory muscles on inspiration or expiration. EXTREMITIES: No edema, pulses are equal bilaterally. No cyanosis or clubbing NEUROLOGY: Mood and affect appear appropriate. Cranial nerves II through XII grossly intact moving all extremities, speech is clear Urinary Catheter: No Vascular Central Line Catheter: No A/P Assessment and Plan Inability to care for self, unsafe discharge due to cognition, improving Initially he was indicated patient cannot walk, patient is walking at this time, PT and OT recommending supervision at home for safety Speech therapy following the patient intermittently for cognitive evaluations. 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 MIni mental state 28/30, recommended avoid antipsychotics and benzodiazepine. Recommended Depakote or carbamazepine Patient is medically stable for discharge, however due to underlying psychiatric/cognition patient is unsafe discharge until arrangements made by case management Case management for discharge planning Neuropsychiatry evaluated the patient recommended patient may improve with treatment, however indicates avoid benzodiazepines and antipsychotics Continue Prozac 40 mg daily Depakene 500 mg twice daily Seroquel 100 mg twice daily Reconsult speech therapy for cognition evaluation, they reevaluated the patient patient remains MOCA , no change Patient no longer requiring sitter. Patient is functioning and ambulating on her own. Patient without any attempts of elopement. Mild malnutrition, secondary to poor by mouth intake Albumin 2.8 Prealbumin 19 Continue Remeron Dietary consulted who recommended ensure with breakfast lunch and there. May have muffin at bedtime, daily vitamin Recurrent falls, resolved Patient moved close to nursing station Patient does state that she is having neck pain Patient denies any neurological symptoms of weakness, paresthesia, loss of bowel or bladder control Orthostatic vitals do show drop in systolic blood pressure when standing. Improved after hydration Status post 2 L normal saline and continue monitor orthostatic vitals MRI of the neck. Multilevel degenerative changes. Mild degree of canal stenosis C5-C6, anterior fusion C6-C7 MRI of thoracic and lumbar spine do not indicate any acute abnormality Clavicle x-ray shows nonacute distal clavicle fracture. Carotid ultrasound was unremarkable Echocardiogram indicate ejection fraction 50-55% without any abnormalities Physical therapy ordered for 5 days a week Multiple traumatic injuries, Patient laceration, subdural hemorrhage, ventricular hemorrhage, nasal fracture, C6 fracture, C1-C2 subluxation, C4 transverse process fracture, right rib fracture, L1 transverse process fracture, right pubic rami fracture Continue c-collar this time, however patient does not wear Follow-up cervical spine CT 1026/17 indicates no evidence of acute fracture. Postsurgical changes Specialist no longer following patient, patient will require outpatient follow-up if discharge Right breast abscess, improved Physical exam patient does have a erythematous area with drainage Ultrasound does show complex loculated collection measuring 2.4 x 1.7 x 1.8 cm. Representing breast abscess Status post Augmentin 500 mg twice daily for 10 days and Bactrim DS for 18 days Gen. surgery consulted who recommends no intervention at this time, Soft tissue ultrasound shows a improvement of the fluid collection. Outpatient mammogram performed 01/25/18. Benign findings, recommendations for follow-up breast ultrasound in 3 months. Hypothyroidism TSH 5.11, follow-up TSH 3.73 Free T4 0.57, free T3 1 0.47 Levothyroxine 25 g daily Monitor TSH every 6-8 weeks Hypertension, Continue monitor blood pressure Amlodipine 10 mg daily Lisinopril 10 mg daily, lisinopril 5 mg at bedtime DVT prevention Patient ambulating Sequential compression devices while in bed Medical records are reviewed. Awaiting case management for discharge planning. No change in current treatment plan. Discharge Planning Case management for discharge planning, Conrado Mariee Mar 06, 2018 08:51
[2018-03-06 19:56] VITALS: BP 139/95; PULSE 88; RESP 18; TEMP 97.4; O2SAT 95
[2018-03-06] MEDS: MIRTAZAPINE 15 MG TAB PO SCH (22:51)
[2018-03-06] MEDS: LISINOPRIL 5 MG TAB PO SCH (22:52)
[2018-03-07] MEDS: LEVOTHYROXINE SODIUM 25 MCG TAB PO SCH (06:44)
[2018-03-07 08:32] VITALS: BP 140/94; PULSE 69; RESP 14; TEMP 97; O2SAT 93
[2018-03-07] MEDS: VALPROIC ACID 250 MG CAP PO SCH ×2 (08:49→21:00)
[2018-03-07] MEDS: LISINOPRIL 10 MG TAB PO SCH ×2 (08:50→21:00)
[2018-03-07] MEDS: FLUoxetine HCL 20 MG CAP PO SCH (08:50)
[2018-03-07] MEDS: MULTIVITAMIN TAB PO SCH (08:50)
[2018-03-07] MEDS: QUEtiapine FUMARATE 100 MG TAB PO SCH ×2 (08:50→21:00)
[2018-03-07] MEDS: FLUTICASONE PROPIONATE 50 MCG/ACT 16 GM NASAL SPRAY EACH NARE SCH (08:51)
--- NOTE | 2018-03-07 09:06 | HHI.PR ---
Subjective Remarks Patient seen and examined today for follow-up on unsafe discharge due to cognition. Patient is doing well. Denies any new complaints. Blood pressure still mildly elevated will adjust medications. Patient remains afebrile. Objective Vitals Vital Signs Date Time Temp Pulse Resp B/P (MAP) Pulse Ox O2 Delivery O2 Flow Rate FiO2 03/07/18 08:32 97.0 69 14 140/94 (109) 93 03/06/18 19:56 97.4 88 18 139/95 (110) 95 I/O 03/06/18 03/06/18 03/06/18 03/07/18 03/07/18 03/07/18 07:00 15:00 23:00 07:00 15:00 23:00 Intake Total 120 ml Balance 120 ml Intake Oral 120 ml # Voids 0 5 # Bowel Movements 1 Objective Remarks GENERAL: Well-developed, well-nourished, in no acute distress. alert and orientation waxes and wanes daily HEENT: Head is normocephalic without any lesions or masses noted. Facial features are symmetric. Eyes: Extraocular muscles are intact. Conjunctivae were clear. CARDIAC: Regular rhythm, regular rate. S1/S2 are heard. No murmurs gallops or rubs. LUNGS: Clear to auscultation bilaterally. No wheeze, rhonchi or rales. No use of accessory muscles on inspiration or expiration. EXTREMITIES: No edema, pulses are equal bilaterally. No cyanosis or clubbing NEUROLOGY: Mood and affect appear appropriate. Cranial nerves II through XII grossly intact moving all extremities, speech is clear Urinary Catheter: No Vascular Central Line Catheter: No A/P Assessment and Plan Inability to care for self, unsafe discharge due to cognition, improving Initially he was indicated patient cannot walk, patient is walking at this time, PT and OT recommending supervision at home for safety Speech therapy following the patient intermittently for cognitive evaluations. 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 MIni mental state 28/30, recommended avoid antipsychotics and benzodiazepine. Recommended Depakote or carbamazepine Patient is medically stable for discharge, however due to underlying psychiatric/cognition patient is unsafe discharge until arrangements made by case management Case management for discharge planning Neuropsychiatry evaluated the patient recommended patient may improve with treatment, however indicates avoid benzodiazepines and antipsychotics Continue Prozac 40 mg daily Depakene 500 mg twice daily Seroquel 100 mg twice daily Reconsult speech therapy for cognition evaluation, they reevaluated the patient patient remains MOCA , no change Patient no longer requiring sitter. Patient is functioning and ambulating on her own. Patient without any attempts of elopement. Mild malnutrition, secondary to poor by mouth intake Albumin 2.8 Prealbumin 19 Continue Remeron Dietary consulted who recommended ensure with breakfast lunch and there. May have muffin at bedtime, daily vitamin Recurrent falls, resolved Patient moved close to nursing station Patient does state that she is having neck pain Patient denies any neurological symptoms of weakness, paresthesia, loss of bowel or bladder control Orthostatic vitals do show drop in systolic blood pressure when standing. Improved after hydration Status post 2 L normal saline and continue monitor orthostatic vitals MRI of the neck. Multilevel degenerative changes. Mild degree of canal stenosis C5-C6, anterior fusion C6-C7 MRI of thoracic and lumbar spine do not indicate any acute abnormality Clavicle x-ray shows nonacute distal clavicle fracture. Carotid ultrasound was unremarkable Echocardiogram indicate ejection fraction 50-55% without any abnormalities Physical therapy ordered for 5 days a week Multiple traumatic injuries, Patient laceration, subdural hemorrhage, ventricular hemorrhage, nasal fracture, C6 fracture, C1-C2 subluxation, C4 transverse process fracture, right rib fracture, L1 transverse process fracture, right pubic rami fracture Continue c-collar this time, however patient does not wear Follow-up cervical spine CT 1026/17 indicates no evidence of acute fracture. Postsurgical changes Specialist no longer following patient, patient will require outpatient follow-up if discharge Right breast abscess, improved Physical exam patient does have a erythematous area with drainage Ultrasound does show complex loculated collection measuring 2.4 x 1.7 x 1.8 cm. Representing breast abscess Status post Augmentin 500 mg twice daily for 10 days and Bactrim DS for 18 days Gen. surgery consulted who recommends no intervention at this time, Soft tissue ultrasound shows a improvement of the fluid collection. Outpatient mammogram performed 01/25/18. Benign findings, recommendations for follow-up breast ultrasound in 3 months. Hypothyroidism TSH 5.11, follow-up TSH 3.73 Free T4 0.57, free T3 1 0.47 Levothyroxine 25 g daily Monitor TSH every 6-8 weeks Hypertension, Continue monitor blood pressure Amlodipine 10 mg daily Lisinopril 10 mg twice daily DVT prevention Patient ambulating Sequential compression devices while in bed Medical records are reviewed. No change in current treatment plan. Awaiting case management for discharge planning. Discharge Planning Case management for discharge planning, Conrado Mariee Mar 07, 2018 09:06
[2018-03-07 20:00] VITALS: BP 145/92; PULSE 74; RESP 18; TEMP 97.7; O2SAT 94
[2018-03-07] MEDS: MIRTAZAPINE 15 MG TAB PO SCH (21:00)
[2018-03-08] MEDS: LEVOTHYROXINE SODIUM 25 MCG TAB PO SCH (06:00)
[2018-03-08 08:00] VITALS: BP 156/81; PULSE 59; RESP 18; TEMP 97; O2SAT 97
[2018-03-08] MEDS: VALPROIC ACID 250 MG CAP PO SCH ×2 (08:26→21:14)
[2018-03-08] MEDS: FLUTICASONE PROPIONATE 50 MCG/ACT 16 GM NASAL SPRAY EACH NARE SCH (08:26)
[2018-03-08] MEDS: QUEtiapine FUMARATE 100 MG TAB PO SCH ×2 (08:27→21:13)
[2018-03-08] MEDS: LISINOPRIL 10 MG TAB PO SCH ×2 (08:27→21:14)
[2018-03-08] MEDS: MULTIVITAMIN TAB PO SCH (08:27)
[2018-03-08] MEDS: FLUoxetine HCL 20 MG CAP PO SCH (08:27)
--- NOTE | 2018-03-08 13:43 | HHI.PR ---
Subjective Remarks Follow-up unsafe discharge due to cognition. Patient seen and examined, lying in bed comfortably no apparent distress. No complaints overnight. Doing well without center. Mildly elevated blood pressure. Continue lisinopril. Monitor blood pressure trends. Afebrile. No change in clinical condition. Objective Vitals Vital Signs Date Time Temp Pulse Resp B/P (MAP) Pulse Ox O2 Delivery O2 Flow Rate FiO2 03/08/18 08:00 97.0 59 18 156/81 (106) 97 03/07/18 20:00 97.7 74 18 145/92 (109) 94 I/O 03/07/18 03/07/18 03/07/18 03/08/18 03/08/18 03/08/18 07:00 15:00 23:00 07:00 15:00 23:00 Intake Total 1000 ml 60 ml Balance 1000 ml 60 ml Intake Oral 1000 ml 60 ml # Voids 7 1 # Bowel Movements 1 0 Imaging Last Impressions Chest X-Ray 02/11/18 0000 Signed Impressions: Service Date/Time: Sunday, February 11, 2018 13:13 - CONCLUSION: 1. Minimal atelectasis/scarring in the left base. Lungs are otherwise clear. 2. 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 Anterior fixation of lower cervical spine. Marcelino Cisneros MD Clavicle X-Ray 12/16/17 0000 Signed Impressions: Service Date/Time: December 19:51 - CONCLUSION: Distal clavicle is fractured but this appears nonacute. No acute fracture demonstrated. Jovany Hayes MD Thoracic Spine MRI 12/01/17 0000 Signed Impressions: Service Date/Time: Friday, December 01, 2017 15:10 - CONCLUSION: Negative for acute process. Vimal Taylor MD FACR Lumbar Spine MRI 12/01/17 0000 Signed Impressions: Service Date/Time: Friday, December 01, 2017 15:10 - CONCLUSION: Negative MRI of the lumbar spine. Vimal Taylor MD FACR Carotid Artery Ultrasound 11/30/17 0000 Signed Impressions: Service Date/Time: Thursday, November 30, 2017 14:34 - CONCLUSION: 1. Mild plaque with no hemodynamically significant stenosis. Vertebral artery flow antegrade. Fadi Carolina MD Cervical Spine MRI 11/28/17 0000 Signed Impressions: Service Date/Time: Tuesday, November 28, 2017 15:10 - CONCLUSION: 1. Multilevel posterior disc osteophyte complexes as described above. 2. Anterior fusion C6- 7. Dylon Haddad MD Knee X-Ray 11/02/17 0000 Signed Impressions: Service Date/Time: Thursday, November 02, 2017 18:51 - CONCLUSION: Intact right knee. Jovany Hayes MD Head CT 11/02/17 0000 Signed Impressions: Service Date/Time: Thursday, November 02, 2017 18:35 - CONCLUSION: 1. No bleed or other acute intracranial abnormality. 2. Previously seen intracranial hemorrhage has resolved. A small area of chronic encephalomalacia has developed of the right frontal lobe. 3. Chronic periventricular white matter changes are again noted. Jovany Hayes MD Breast Ultrasound 10/15/17 0000 Signed Impressions: Service Date/Time: Sunday, October 15, 2017 09:06 - CONCLUSION: Persistent subcutaneous collection at the 12:00 position of the right breast. It has slightly decreased in size since the study dated 09/23/2017 and could represent an infectious process. Consider followup to confirm resolution. Jovany Quezada MD Cervical Spine CT 09/02/17 0000 Signed Impressions: Service Date/Time: August 12:56 - CONCLUSION: Postsurgical changes from anterior cervical plate at C6-7. No evidence of compression deformity or spondylolisthesis. Arun Regan MD Pelvis X-Ray 06/30/17 0000 Signed Impressions: Service Date/Time: Friday, June 30, 2017 12:17 - CONCLUSION: No significant change has occurred. Carlos Capps MD Objective Remarks GENERAL: Well-developed, well-nourished patient in [facility]. SKIN: Warm and dry. No rash. HEAD: Normocephalic. Atraumatic. EYES: Pupils equal and round. No scleral icterus. No injection or drainage. ENT: No nasal bleeding or discharge. Mucous membranes pink and moist. NECK: Supple. Trachea midline. CARDIOVASCULAR: Regular rate and rhythm. S1, S2 noted. No murmur appreciated. RESPIRATORY: No accessory muscle use. Clear to auscultation. Breath sounds equal bilaterally. GASTROINTESTINAL: Abdomen soft, non-tender, nondistended. Normoactive bowel sounds x4. MUSCULOSKELETAL: No obvious deformities. Extremities without clubbing, cyanosis , or edema. NEUROLOGICAL: Awake and alert. No obvious cranial nerve deficits. Motor grossly within normal limits. 5/5 muscle strength in bilateral upper and lower extremities. Normal speech. PSYCHIATRIC: Appropriate mood and affect; insight and judgment normal. A/P Problem List: (1) Alcohol dependence in controlled environment ICD Code: F10.20 - Alcohol dependence, uncomplicated Status: Chronic (2) Facial injury ICD Code: S09.93XA - Unspecified injury of face, initial encounter Status: Acute (3) Fall ICD Code: W19.XXXA - Unspecified fall, initial encounter Status: Acute (4) Hypertension ICD Code: I10 - Essential (primary) hypertension Status: Acute (5) Pelvic fracture ICD Code: S32.9XXA - Fracture of unspecified parts of lumbosacral spine and pelvis, initial encounter for closed fracture Status: Acute (6) C1-C2 subluxation ICD Code: S13.120A - Subluxation of C1/C2 cervical vertebrae, initial encounter Status: Acute (7) C6 cervical fracture ICD Code: S12.500A - Unspecified displaced fracture of sixth cervical vertebra , initial encounter for closed fracture Status: Acute (8) Traumatic brain injury ICD Code: S06.9X9A - Unspecified intracranial injury with loss of consciousness of unspecified duration, initial encounter Status: Acute (9) Nasal fracture ICD Code: S02.2XXA - Fracture of nasal bones, initial encounter for closed fracture Status: Acute (10) Mild neurocognitive disorder ICD Code: G31.84 - Mild cognitive impairment, so stated Status: Acute (11) Intracranial bleed ICD Code: I62.9 - Nontraumatic intracranial hemorrhage, unspecified Status: Acute Assessment and Plan Inability to care for self, unsafe discharge due to cognition - PT and OT recommending supervision at home for safety. - Speech therapy following the patient intermittently for cognitive evaluations. 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 Mini mental state 28/30, recommended avoid antipsychotics and benzodiazepine. Recommending Depakote or carbamazepine. - Patient is medically stable for discharge, however due to underlying psychiatric/cognition patient is unsafe discharge until arrangements made by case management. Case management for discharge planning. - Neuropsychiatry evaluated the patient recommended patient may improve with treatment, however indicates avoid benzodiazepines and antipsychotics - Continue Prozac 40 mg daily - Depakene 500 mg twice daily - Seroquel 100 mg twice daily - *Psychiatry indicated that the patient lacks capacity for signing AMA or to participate in discharge plan. He is recommending that he would invite the ethics committee to the hospital to have a discussion about patient care - *Consulted case management for ethics committee review, awaiting response Recurrent falls. Resolved. Patient moved close to nursing station. Patient denies any neurological symptoms of weakness, paresthesia, loss of bowel or bladder control Orthostatic vitals do show drop in systolic blood pressure when standing. Improved after hydration. MRI of the neck. Multilevel degenerative changes. Mild degree of canal stenosis C5-C6, anterior fusion C6-C7 MRI of thoracic and lumbar spine do not indicate any acute abnormality Carotid ultrasound was unremarkable. Echocardiogram indicate ejection fraction 50-55% without any abnormalities Physical therapy ordered for 5 days a week Mild malnutrition, secondary to poor by mouth intake. Resolved. Albumin 2.8. Prealbumin 19. After review of weight trend, has been gaining weight. Continue Remeron. Dietary consulted who recommended ensure with breakfast lunch and there. May have muffin at bedtime, daily vitamin. Multiple traumatic injuries Patient laceration, subdural hemorrhage, ventricular hemorrhage, nasal fracture, C6 fracture, C1-C2 subluxation, C4 transverse process fracture, right rib fracture, L1 transverse process fracture, right pubic rami fracture Continue c-collar this time, however patient does not wear Follow-up cervical spine CT 102/ indicates no evidence of acute fracture. Postsurgical changes Specialist no longer following patient, patient will require outpatient follow-up if discharge Right breast abscess, Improved. Physical exam shows improvement. Ultrasound does show complex loculated collection measuring 2.4 x 1.7 x 1.8 cm. Representing breast abscess Status post Augmentin 500 mg twice daily for 10 days (end date 10/25/17). Finished Bactrim DS for 18 days Gen. surgery consulted who recommends no intervention at this time. Soft tissue ultrasound shows a improvement of the fluid collection. Outpatient mammogram performed today, 01/25/18. Benign findings, recommendations for follow-up breast ultrasound in 3 months. Hypothyroidism TSH 3.73 Free T4 0.57, free T3 1 0.47 Levothyroxine 25 g daily Monitor TSH every 6-8 weeks. TSH last checked 3.73 on January 21. Continue current treatment. Hypertension Amlodipine 10 mg daily and Norvasc DVT prevention Patient ambulating Sequential compression devices while in bed Records were reviewed. Awaiting case management for discharge planning, No change in current treatment plan. Discharge Planning Due to underlying psychiatric/cognition patient is unsafe discharge until arrangements made by case management. Problem Qualifiers (1) Hypertension: Qualified Codes: I10 - Essential (primary) hypertension Alyssa Means March 08, 2018 13:43
[2018-03-08 20:00] VITALS: BP 127/79; PULSE 76; RESP 20; TEMP 97.7; O2SAT 92
[2018-03-08] MEDS: MIRTAZAPINE 15 MG TAB PO SCH (21:14)
[2018-03-09] MEDS: LEVOTHYROXINE SODIUM 25 MCG TAB PO SCH (06:03)
[2018-03-09 08:00] VITALS: BP 142/86; PULSE 66; RESP 18; TEMP 96.7; O2SAT 93
[2018-03-09] MEDS: LISINOPRIL 10 MG TAB PO SCH ×2 (10:00→20:56)
[2018-03-09] MEDS: FLUTICASONE PROPIONATE 50 MCG/ACT 16 GM NASAL SPRAY EACH NARE SCH (10:00)
[2018-03-09] MEDS: FLUoxetine HCL 20 MG CAP PO SCH (10:01)
[2018-03-09] MEDS: VALPROIC ACID 250 MG CAP PO SCH ×2 (10:01→20:56)
[2018-03-09] MEDS: MULTIVITAMIN TAB PO SCH (10:01)
[2018-03-09] MEDS: QUEtiapine FUMARATE 100 MG TAB PO SCH ×2 (10:01→20:56)
--- NOTE | 2018-03-09 11:19 | HHI.PR ---
Subjective Remarks Follow-up unsafe discharge due to cognition. Patient seen and examined, lying in bed comfortably no apparent distress. No reports of any acute events overnight. No change in clinical condition. Afebrile. Vital signs stable. Objective Vitals Vital Signs Date Time Temp Pulse Resp B/P (MAP) Pulse Ox O2 Delivery O2 Flow Rate FiO2 03/09/18 08:00 96.7 66 18 142/86 (104) 93 03/08/18 20:00 97.7 76 20 127/79 (95) 92 I/O 03/08/18 03/08/18 03/08/18 03/09/18 03/09/18 03/09/18 07:00 15:00 23:00 07:00 15:00 23:00 Intake Total 60 ml 1000 ml Balance 60 ml 1000 ml Intake Oral 60 ml 1000 ml # Voids 1 2 # Bowel Movements 0 1 Imaging Last Impressions Chest X-Ray 02/11/18 0000 Signed Impressions: Service Date/Time: Sunday, February 11, 2018 13:13 - CONCLUSION: 1. Minimal atelectasis/scarring in the left base. Lungs are otherwise clear. 2. 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 Anterior fixation of lower cervical spine. Marcelino Cisneros MD Clavicle X-Ray 12/16/17 0000 Signed Impressions: Service Date/Time: December 19:51 - CONCLUSION: Distal clavicle is fractured but this appears nonacute. No acute fracture demonstrated. Jovany Hayes MD Thoracic Spine MRI 12/01/17 0000 Signed Impressions: Service Date/Time: Friday, December 01, 2017 15:10 - CONCLUSION: Negative for acute process. Vimal Taylor MD FACR Lumbar Spine MRI 12/01/17 0000 Signed Impressions: Service Date/Time: Friday, December 01, 2017 15:10 - CONCLUSION: Negative MRI of the lumbar spine. Vimal Taylor MD FACR Carotid Artery Ultrasound 11/30/17 0000 Signed Impressions: Service Date/Time: Thursday, November 30, 2017 14:34 - CONCLUSION: 1. Mild plaque with no hemodynamically significant stenosis. Vertebral artery flow antegrade. Fadi Carolina MD Cervical Spine MRI 11/28/17 0000 Signed Impressions: Service Date/Time: Tuesday, November 28, 2017 15:10 - CONCLUSION: 1. Multilevel posterior disc osteophyte complexes as described above. 2. Anterior fusion C6- 7. Dylon Haddad MD Knee X-Ray 11/02/17 0000 Signed Impressions: Service Date/Time: Thursday, November 02, 2017 18:51 - CONCLUSION: Intact right knee. Jovany Hayes MD Head CT 11/02/17 0000 Signed Impressions: Service Date/Time: Thursday, November 02, 2017 18:35 - CONCLUSION: 1. No bleed or other acute intracranial abnormality. 2. Previously seen intracranial hemorrhage has resolved. A small area of chronic encephalomalacia has developed of the right frontal lobe. 3. Chronic periventricular white matter changes are again noted. Jovany Hayes MD Breast Ultrasound 10/15/17 0000 Signed Impressions: Service Date/Time: Sunday, October 15, 2017 09:06 - CONCLUSION: Persistent subcutaneous collection at the 12:00 position of the right breast. It has slightly decreased in size since the study dated 09/23/2017 and could represent an infectious process. Consider followup to confirm resolution. Jovany Quezada MD Cervical Spine CT 09/02/17 0000 Signed Impressions: Service Date/Time: August 12:56 - CONCLUSION: Postsurgical changes from anterior cervical plate at C6-7. No evidence of compression deformity or spondylolisthesis. Arun Regan MD Pelvis X-Ray 06/30/17 0000 Signed Impressions: Service Date/Time: Friday, June 30, 2017 12:17 - CONCLUSION: No significant change has occurred. Carlos Capps MD Objective Remarks GENERAL: Well-developed, well-nourished patient in [facility]. SKIN: Warm and dry. No rash. HEAD: Normocephalic. Atraumatic. EYES: Pupils equal and round. No scleral icterus. No injection or drainage. ENT: No nasal bleeding or discharge. Mucous membranes pink and moist. NECK: Supple. Trachea midline. CARDIOVASCULAR: Regular rate and rhythm. S1, S2 noted. No murmur appreciated. RESPIRATORY: No accessory muscle use. Clear to auscultation. Breath sounds equal bilaterally. GASTROINTESTINAL: Abdomen soft, non-tender, nondistended. Normoactive bowel sounds x4. MUSCULOSKELETAL: No obvious deformities. Extremities without clubbing, cyanosis , or edema. NEUROLOGICAL: Awake and alert. No obvious cranial nerve deficits. Motor grossly within normal limits. 5/5 muscle strength in bilateral upper and lower extremities. Normal speech. PSYCHIATRIC: Appropriate mood and affect; insight and judgment normal. A/P Problem List: (1) Alcohol dependence in controlled environment ICD Code: F10.20 - Alcohol dependence, uncomplicated Status: Chronic (2) Facial injury ICD Code: S09.93XA - Unspecified injury of face, initial encounter Status: Acute (3) Fall ICD Code: W19.XXXA - Unspecified fall, initial encounter Status: Acute (4) Hypertension ICD Code: I10 - Essential (primary) hypertension Status: Acute (5) Pelvic fracture ICD Code: S32.9XXA - Fracture of unspecified parts of lumbosacral spine and pelvis, initial encounter for closed fracture Status: Acute (6) C1-C2 subluxation ICD Code: S13.120A - Subluxation of C1/C2 cervical vertebrae, initial encounter Status: Acute (7) C6 cervical fracture ICD Code: S12.500A - Unspecified displaced fracture of sixth cervical vertebra , initial encounter for closed fracture Status: Acute (8) Traumatic brain injury ICD Code: S06.9X9A - Unspecified intracranial injury with loss of consciousness of unspecified duration, initial encounter Status: Acute (9) Nasal fracture ICD Code: S02.2XXA - Fracture of nasal bones, initial encounter for closed fracture Status: Acute (10) Mild neurocognitive disorder ICD Code: G31.84 - Mild cognitive impairment, so stated Status: Acute (11) Intracranial bleed ICD Code: I62.9 - Nontraumatic intracranial hemorrhage, unspecified Status: Acute Assessment and Plan Inability to care for self, unsafe discharge due to cognition - PT and OT recommending supervision at home for safety. - Speech therapy following the patient intermittently for cognitive evaluations. 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 Mini mental state 28/30, recommended avoid antipsychotics and benzodiazepine. Recommending Depakote or carbamazepine. - Patient is medically stable for discharge, however due to underlying psychiatric/cognition patient is unsafe discharge until arrangements made by case management. Case management for discharge planning. - Neuropsychiatry evaluated the patient recommended patient may improve with treatment, however indicates avoid benzodiazepines and antipsychotics - Continue Prozac 40 mg daily - Depakene 500 mg twice daily - Seroquel 100 mg twice daily - *Psychiatry indicated that the patient lacks capacity for signing AMA or to participate in discharge plan. He is recommending that he would invite the ethics committee to the hospital to have a discussion about patient care - *Consulted case management for ethics committee review, awaiting response Recurrent falls. Resolved. Patient moved close to nursing station. Patient denies any neurological symptoms of weakness, paresthesia, loss of bowel or bladder control Orthostatic vitals do show drop in systolic blood pressure when standing. Improved after hydration. MRI of the neck. Multilevel degenerative changes. Mild degree of canal stenosis C5-C6, anterior fusion C6-C7 MRI of thoracic and lumbar spine do not indicate any acute abnormality Carotid ultrasound was unremarkable. Echocardiogram indicate ejection fraction 50-55% without any abnormalities Physical therapy ordered for 5 days a week Mild malnutrition, secondary to poor by mouth intake. Resolved. Albumin 2.8. Prealbumin 19. After review of weight trend, has been gaining weight. Continue Remeron. Dietary consulted who recommended ensure with breakfast lunch and there. May have muffin at bedtime, daily vitamin. Multiple traumatic injuries Patient laceration, subdural hemorrhage, ventricular hemorrhage, nasal fracture, C6 fracture, C1-C2 subluxation, C4 transverse process fracture, right rib fracture, L1 transverse process fracture, right pubic rami fracture Continue c-collar this time, however patient does not wear Follow-up cervical spine CT 1026/ indicates no evidence of acute fracture. Postsurgical changes Specialist no longer following patient, patient will require outpatient follow-up if discharge Right breast abscess, Improved. Physical exam shows improvement. Ultrasound does show complex loculated collection measuring 2.4 x 1.7 x 1.8 cm. Representing breast abscess Status post Augmentin 500 mg twice daily for 10 days (end date 10/25/17). Finished Bactrim DS for 18 days Gen. surgery consulted who recommends no intervention at this time. Soft tissue ultrasound shows a improvement of the fluid collection. Outpatient mammogram performed today, 01/25/18. Benign findings, recommendations for follow-up breast ultrasound in 3 months. Hypothyroidism TSH 3.73 Free T4 0.57, free T3 1 0.47 Levothyroxine 25 g daily Monitor TSH every 6-8 weeks. TSH last checked 3.73 on January 21. Continue current treatment. Hypertension Amlodipine 10 mg daily and Norvasc DVT prevention Patient ambulating Sequential compression devices while in bed Records were reviewed. Awaiting case management for discharge planning, No change in current treatment plan. Discharge Planning Due to underlying psychiatric/cognition patient is unsafe discharge until arrangements made by case management. Problem Qualifiers (1) Hypertension: Qualified Codes: I10 - Essential (primary) hypertension Alyssa Means March 09, 2018 11:19
[2018-03-09 20:00] VITALS: BP 153/101; PULSE 74; RESP 20; TEMP 98.2; O2SAT 94
[2018-03-09] MEDS: MIRTAZAPINE 15 MG TAB PO SCH (20:56)
[2018-03-10] MEDS: LEVOTHYROXINE SODIUM 25 MCG TAB PO SCH (06:11)
[2018-03-10 08:00] VITALS: BP 157/86; PULSE 60; RESP 18; TEMP 97.8; O2SAT 98
[2018-03-10] MEDS: MULTIVITAMIN TAB PO SCH (08:46)
[2018-03-10] MEDS: LISINOPRIL 10 MG TAB PO SCH ×2 (08:46→22:10)
[2018-03-10] MEDS: FLUoxetine HCL 20 MG CAP PO SCH (08:46)
[2018-03-10] MEDS: QUEtiapine FUMARATE 100 MG TAB PO SCH ×2 (08:46→22:10)
[2018-03-10] MEDS: ACETAMINOPHEN 325 MG TAB PO PRN (08:47)
[2018-03-10] MEDS: VALPROIC ACID 250 MG CAP PO SCH ×2 (08:47→22:11)
[2018-03-10] MEDS: FLUTICASONE PROPIONATE 50 MCG/ACT 16 GM NASAL SPRAY EACH NARE SCH (08:47)
--- NOTE | 2018-03-10 11:27 | HHI.PR ---
Subjective Remarks Follow-up unsafe discharge due to cognition. Patient seen and examined, lying in bed comfortably no apparent distress. Patient is doing well without a sitter. No change in clinical condition. Patient is pleasant and happy. Denies any complaints. No signs stable. Afebrile. Eating well and bleeding well. Objective Vitals Vital Signs Date Time Temp Pulse Resp B/P (MAP) Pulse Ox O2 Delivery O2 Flow Rate FiO2 03/10/18 08:00 97.8 60 18 157/86 (109) 98 03/09/18 20:00 98.2 74 20 153/101 (118) 94 I/O 03/09/18 03/09/18 03/09/18 03/10/18 03/10/18 03/10/18 06:59 14:59 22:59 06:59 14:59 22:59 Intake Total 1000 ml 720 ml 240 ml Balance 1000 ml 720 ml 240 ml Intake Oral 1000 ml 720 ml 240 ml # Voids 2 3 3 # Bowel Movements 1 1 0 Imaging Last Impressions Chest X-Ray 02/11/18 0000 Signed Impressions: Service Date/Time: Sunday, February 11, 2018 13:13 - CONCLUSION: 1. Minimal atelectasis/scarring in the left base. Lungs are otherwise clear. 2. 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 Anterior fixation of lower cervical spine. Marcelino Cisneros MD Clavicle X-Ray 12/16/17 0000 Signed Impressions: Service Date/Time: December 19:51 - CONCLUSION: Distal clavicle is fractured but this appears nonacute. No acute fracture demonstrated. Jovany Hayes MD Thoracic Spine MRI 12/01/17 0000 Signed Impressions: Service Date/Time: Friday, December 01, 2017 15:10 - CONCLUSION: Negative for acute process. Vimal Taylor MD FACR Lumbar Spine MRI 12/01/17 0000 Signed Impressions: Service Date/Time: Friday, December 01, 2017 15:10 - CONCLUSION: Negative MRI of the lumbar spine. Vimal Taylor MD FACR Carotid Artery Ultrasound 11/30/17 0000 Signed Impressions: Service Date/Time: Thursday, November 30, 2017 14:34 - CONCLUSION: 1. Mild plaque with no hemodynamically significant stenosis. Vertebral artery flow antegrade. Fadi Carolina MD Cervical Spine MRI 11/28/17 0000 Signed Impressions: Service Date/Time: Tuesday, November 28, 2017 15:10 - CONCLUSION: 1. Multilevel posterior disc osteophyte complexes as described above. 2. Anterior fusion C6- 7. Dyoln Haddad MD Knee X-Ray 11/02/17 0000 Signed Impressions: Service Date/Time: Thursday, November 02, 2017 18:51 - CONCLUSION: Intact right knee. Jovany Hayes MD Head CT 11/02/17 0000 Signed Impressions: Service Date/Time: Thursday, November 02, 2017 18:35 - CONCLUSION: 1. No bleed or other acute intracranial abnormality. 2. Previously seen intracranial hemorrhage has resolved. A small area of chronic encephalomalacia has developed of the right frontal lobe. 3. Chronic periventricular white matter changes are again noted. Jovany Hayes MD Breast Ultrasound 10/15/17 0000 Signed Impressions: Service Date/Time: Sunday, October 15, 2017 09:06 - CONCLUSION: Persistent subcutaneous collection at the 12:00 position of the right breast. It has slightly decreased in size since the study dated 09/23/2017 and could represent an infectious process. Consider followup to confirm resolution. Jovany Quezada MD Cervical Spine CT 09/02/17 0000 Signed Impressions: Service Date/Time: August 12:56 - CONCLUSION: Postsurgical changes from anterior cervical plate at C6-7. No evidence of compression deformity or spondylolisthesis. Arun Regan MD Pelvis X-Ray 06/30/17 0000 Signed Impressions: Service Date/Time: Friday, June 30, 2017 12:17 - CONCLUSION: No significant change has occurred. Carlos Capps MD Objective Remarks GENERAL: Well-developed, well-nourished patient in NAD. SKIN: Warm and dry. No rash. HEAD: Normocephalic. Atraumatic. EYES: Pupils equal and round. No scleral icterus. No injection or drainage. ENT: No nasal bleeding or discharge. Mucous membranes pink and moist. NECK: Supple. Trachea midline. CARDIOVASCULAR: Regular rate and rhythm. S1, S2 noted. No murmur appreciated. RESPIRATORY: No accessory muscle use. Clear to auscultation. Breath sounds equal bilaterally. GASTROINTESTINAL: Abdomen soft, non-tender, nondistended. Normoactive bowel sounds x4. MUSCULOSKELETAL: No obvious deformities. Extremities without clubbing, cyanosis , or edema. NEUROLOGICAL: Awake and alert. No obvious cranial nerve deficits. Motor grossly within normal limits. 5/5 muscle strength in bilateral upper and lower extremities. Normal speech. PSYCHIATRIC: Appropriate mood and affect; insight and judgment normal. A/P Problem List: (1) Alcohol dependence in controlled environment ICD Code: F10.20 - Alcohol dependence, uncomplicated Status: Chronic (2) Facial injury ICD Code: S09.93XA - Unspecified injury of face, initial encounter Status: Acute (3) Fall ICD Code: W19.XXXA - Unspecified fall, initial encounter Status: Acute (4) Hypertension ICD Code: I10 - Essential (primary) hypertension Status: Acute (5) Pelvic fracture ICD Code: S32.9XXA - Fracture of unspecified parts of lumbosacral spine and pelvis, initial encounter for closed fracture Status: Acute (6) C1-C2 subluxation ICD Code: S13.120A - Subluxation of C1/C2 cervical vertebrae, initial encounter Status: Acute (7) C6 cervical fracture ICD Code: S12.500A - Unspecified displaced fracture of sixth cervical vertebra , initial encounter for closed fracture Status: Acute (8) Traumatic brain injury ICD Code: S06.9X9A - Unspecified intracranial injury with loss of consciousness of unspecified duration, initial encounter Status: Acute (9) Nasal fracture ICD Code: S02.2XXA - Fracture of nasal bones, initial encounter for closed fracture Status: Acute (10) Mild neurocognitive disorder ICD Code: G31.84 - Mild cognitive impairment, so stated Status: Acute (11) Intracranial bleed ICD Code: I62.9 - Nontraumatic intracranial hemorrhage, unspecified Status: Acute Assessment and Plan Inability to care for self, unsafe discharge due to cognition - PT and OT recommending supervision at home for safety. - Speech therapy following the patient intermittently for cognitive evaluations. 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 Mini mental state 28/30, recommended avoid antipsychotics and benzodiazepine. Recommending Depakote or carbamazepine. - Patient is medically stable for discharge, however due to underlying psychiatric/cognition patient is unsafe discharge until arrangements made by case management. Case management for discharge planning. - Neuropsychiatry evaluated the patient recommended patient may improve with treatment, however indicates avoid benzodiazepines and antipsychotics - Continue Prozac 40 mg daily - Depakene 500 mg twice daily - Seroquel 100 mg twice daily - *Psychiatry indicated that the patient lacks capacity for signing AMA or to participate in discharge plan. He is recommending that he would invite the ethics committee to the hospital to have a discussion about patient care - *Consulted case management for ethics committee review, awaiting response Recurrent falls. Resolved. Patient moved close to nursing station. Patient denies any neurological symptoms of weakness, paresthesia, loss of bowel or bladder control Orthostatic vitals do show drop in systolic blood pressure when standing. Improved after hydration. MRI of the neck. Multilevel degenerative changes. Mild degree of canal stenosis C5-C6, anterior fusion C6-C7 MRI of thoracic and lumbar spine do not indicate any acute abnormality Carotid ultrasound was unremarkable. Echocardiogram indicate ejection fraction 50-55% without any abnormalities Physical therapy ordered for 5 days a week Mild malnutrition, secondary to poor by mouth intake. Resolved. Albumin 2.8. Prealbumin 19. After review of weight trend, has been gaining weight. Continue Remeron. Dietary consulted who recommended ensure with breakfast lunch and there. May have muffin at bedtime, daily vitamin. Multiple traumatic injuries Patient laceration, subdural hemorrhage, ventricular hemorrhage, nasal fracture, C6 fracture, C1-C2 subluxation, C4 transverse process fracture, right rib fracture, L1 transverse process fracture, right pubic rami fracture Continue c-collar this time, however patient does not wear Follow-up cervical spine CT 1026/ indicates no evidence of acute fracture. Postsurgical changes Specialist no longer following patient, patient will require outpatient follow-up if discharge Right breast abscess, Improved. Physical exam shows improvement. Ultrasound does show complex loculated collection measuring 2.4 x 1.7 x 1.8 cm. Representing breast abscess Status post Augmentin 500 mg twice daily for 10 days (end date 10/25/17). Finished Bactrim DS for 18 days Gen. surgery consulted who recommends no intervention at this time. Soft tissue ultrasound shows a improvement of the fluid collection. Outpatient mammogram performed today, 01/25/18. Benign findings, recommendations for follow-up breast ultrasound in 3 months. Hypothyroidism TSH 3.73 Free T4 0.57, free T3 1 0.47 Levothyroxine 25 g daily Monitor TSH every 6-8 weeks. TSH last checked 3.73 on January 21. Continue current treatment. Hypertension Amlodipine 10 mg daily and Norvasc DVT prevention Patient ambulating Sequential compression devices while in bed Records were reviewed. Awaiting case management for discharge planning, No change in current treatment plan. Discharge Planning Due to underlying psychiatric/cognition patient is unsafe discharge until arrangements made by case management. Problem Qualifiers (1) Hypertension: Qualified Codes: I10 - Essential (primary) hypertension Alyssa Means March 10, 2018 11:27
[2018-03-10 20:00] VITALS: BP 138/85; PULSE 74; RESP 20; TEMP 97.8; O2SAT 93
[2018-03-10] MEDS: MIRTAZAPINE 15 MG TAB PO SCH (22:11)
[2018-03-11] MEDS: LEVOTHYROXINE SODIUM 25 MCG TAB PO SCH (06:25)
[2018-03-11 08:00] VITALS: BP 134/73; PULSE 69; RESP 16; TEMP 98.8; O2SAT 98
[2018-03-11] MEDS: MULTIVITAMIN TAB PO SCH (08:05)
[2018-03-11] MEDS: QUEtiapine FUMARATE 100 MG TAB PO SCH ×2 (08:05→22:42)
[2018-03-11] MEDS: VALPROIC ACID 250 MG CAP PO SCH ×2 (08:05→22:44)
[2018-03-11] MEDS: FLUoxetine HCL 20 MG CAP PO SCH (08:05)
[2018-03-11] MEDS: LISINOPRIL 10 MG TAB PO SCH ×2 (08:06→22:42)
[2018-03-11] MEDS: FLUTICASONE PROPIONATE 50 MCG/ACT 16 GM NASAL SPRAY EACH NARE SCH (08:06)
[2018-03-11] MEDS: ERGOCALCIFEROL (VIT D2) 50,000 UNIT CAP PO SCH (08:06)
--- NOTE | 2018-03-11 11:42 | HHI.PR ---
Subjective Remarks Follow-up unsafe discharge due to cognition. Patient seen and examined, lying in bed comfortably in no apparent distress. Patient is pleasant no acute complaints. No pain. Doing well without center. Spoke to case management, Saji today who is looking into placement. Will order for reevaluation of cognitive level incapacity. Vital signs stable. Afebrile. Objective Vitals Vital Signs Date Time Temp Pulse Resp B/P (MAP) Pulse Ox O2 Delivery O2 Flow Rate FiO2 03/11/18 08:00 98.8 69 16 134/73 (93) 98 03/10/18 20:00 97.8 74 20 138/85 (102) 93 I/O 03/10/18 03/10/18 03/10/18 03/11/18 03/11/18 03/11/18 06:59 14:59 22:59 06:59 14:59 22:59 Intake Total 240 ml 480 ml Output Total 0 ml Balance 240 ml 0 ml 480 ml Intake Oral 240 ml 480 ml Stool Total 0 ml # Voids 3 2 # Bowel Movements 0 3 Imaging Last Impressions Chest X-Ray 02/11/18 0000 Signed Impressions: Service Date/Time: Sunday, February 11, 2018 13:13 - CONCLUSION: 1. Minimal atelectasis/scarring in the left base. Lungs are otherwise clear. 2. 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 Anterior fixation of lower cervical spine. Marcelino Cisneros MD Clavicle X-Ray 12/16/17 0000 Signed Impressions: Service Date/Time: December 19:51 - CONCLUSION: Distal clavicle is fractured but this appears nonacute. No acute fracture demonstrated. Jovany Hayes MD Thoracic Spine MRI 12/01/17 0000 Signed Impressions: Service Date/Time: Friday, December 01, 2017 15:10 - CONCLUSION: Negative for acute process. Vimal Taylor MD FACR Lumbar Spine MRI 12/01/17 0000 Signed Impressions: Service Date/Time: Friday, December 01, 2017 15:10 - CONCLUSION: Negative MRI of the lumbar spine. Vimal Taylor MD FACR Carotid Artery Ultrasound 11/30/17 0000 Signed Impressions: Service Date/Time: Thursday, November 30, 2017 14:34 - CONCLUSION: 1. Mild plaque with no hemodynamically significant stenosis. Vertebral artery flow antegrade. Fadi Carolina MD Cervical Spine MRI 11/28/17 0000 Signed Impressions: Service Date/Time: Tuesday, November 28, 2017 15:10 - CONCLUSION: 1. Multilevel posterior disc osteophyte complexes as described above. 2. Anterior fusion C6- 7. Dylon Haddad MD Knee X-Ray 11/02/17 0000 Signed Impressions: Service Date/Time: Thursday, November 02, 2017 18:51 - CONCLUSION: Intact right knee. Jovany Hayes MD Head CT 11/02/17 0000 Signed Impressions: Service Date/Time: Thursday, November 02, 2017 18:35 - CONCLUSION: 1. No bleed or other acute intracranial abnormality. 2. Previously seen intracranial hemorrhage has resolved. A small area of chronic encephalomalacia has developed of the right frontal lobe. 3. Chronic periventricular white matter changes are again noted. Jovany Hayes MD Breast Ultrasound 10/15/17 0000 Signed Impressions: Service Date/Time: Sunday, October 15, 2017 09:06 - CONCLUSION: Persistent subcutaneous collection at the 12:00 position of the right breast. It has slightly decreased in size since the study dated 09/23/2017 and could represent an infectious process. Consider followup to confirm resolution. Jovany Quezada MD Cervical Spine CT 09/02/17 0000 Signed Impressions: Service Date/Time: August 12:56 - CONCLUSION: Postsurgical changes from anterior cervical plate at C6-7. No evidence of compression deformity or spondylolisthesis. Arun Regan MD Pelvis X-Ray 06/30/17 0000 Signed Impressions: Service Date/Time: Friday, June 30, 2017 12:17 - CONCLUSION: No significant change has occurred. Carlos Capps MD Objective Remarks GENERAL: Well-developed, well-nourished patient in NAD. SKIN: Warm and dry. No rash. HEAD: Normocephalic. Atraumatic. EYES: Pupils equal and round. No scleral icterus. No injection or drainage. ENT: No nasal bleeding or discharge. Mucous membranes pink and moist. NECK: Supple. Trachea midline. CARDIOVASCULAR: Regular rate and rhythm. S1, S2 noted. No murmur appreciated. RESPIRATORY: No accessory muscle use. Clear to auscultation. Breath sounds equal bilaterally. GASTROINTESTINAL: Abdomen soft, non-tender, nondistended. Normoactive bowel sounds x4. MUSCULOSKELETAL: No obvious deformities. Extremities without clubbing, cyanosis , or edema. NEUROLOGICAL: Awake and alert. No obvious cranial nerve deficits. Motor grossly within normal limits. 5/5 muscle strength in bilateral upper and lower extremities. Normal speech. PSYCHIATRIC: Appropriate mood and affect; insight and judgment normal. A/P Problem List: (1) Alcohol dependence in controlled environment ICD Code: F10.20 - Alcohol dependence, uncomplicated Status: Chronic (2) Facial injury ICD Code: S09.93XA - Unspecified injury of face, initial encounter Status: Acute (3) Fall ICD Code: W19.XXXA - Unspecified fall, initial encounter Status: Acute (4) Hypertension ICD Code: I10 - Essential (primary) hypertension Status: Acute (5) Pelvic fracture ICD Code: S32.9XXA - Fracture of unspecified parts of lumbosacral spine and pelvis, initial encounter for closed fracture Status: Acute (6) C1-C2 subluxation ICD Code: S13.120A - Subluxation of C1/C2 cervical vertebrae, initial encounter Status: Acute (7) C6 cervical fracture ICD Code: S12.500A - Unspecified displaced fracture of sixth cervical vertebra , initial encounter for closed fracture Status: Acute (8) Traumatic brain injury ICD Code: S06.9X9A - Unspecified intracranial injury with loss of consciousness of unspecified duration, initial encounter Status: Acute (9) Nasal fracture ICD Code: S02.2XXA - Fracture of nasal bones, initial encounter for closed fracture Status: Acute (10) Mild neurocognitive disorder ICD Code: G31.84 - Mild cognitive impairment, so stated Status: Acute (11) Intracranial bleed ICD Code: I62.9 - Nontraumatic intracranial hemorrhage, unspecified Status: Acute Assessment and Plan Inability to care for self, unsafe discharge due to cognition - PT and OT recommending supervision at home for safety. - Speech therapy following the patient intermittently for cognitive evaluations. 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 Mini mental state 28/30, recommended avoid antipsychotics and benzodiazepine. Recommending Depakote or carbamazepine. - Patient is medically stable for discharge, however due to underlying psychiatric/cognition patient is unsafe discharge until arrangements made by case management. Case management for discharge planning. - Neuropsychiatry evaluated the patient recommended patient may improve with treatment, however indicates avoid benzodiazepines and antipsychotics. - Continue Prozac 40 mg daily - Depakene 500 mg twice daily - Seroquel 100 mg twice daily - *Psychiatry indicated that the patient lacks capacity for signing AMA or to participate in discharge plan this is back in September. He is recommending that he would invite the ethics committee to the hospital to have a discussion about patient care - *Consulted case management for ethics committee review, awaiting response. - Spoke to case management, is looking into a guardianship placement for patient. Requesting neuropsych/psych reevaluation for cognitive level and capacity. Appreciate input recommendations. - Spoke to Dr. Hadren, will be in to see patient possibly Wednesday. Appreciate feedback. Psych also consulted, will check to see if able to see sooner. Recurrent falls. Resolved. Patient moved close to nursing station. Patient denies any neurological symptoms of weakness, paresthesia, loss of bowel or bladder control Orthostatic vitals do show drop in systolic blood pressure when standing. Improved after hydration. MRI of the neck. Multilevel degenerative changes. Mild degree of canal stenosis C5-C6, anterior fusion C6-C7 MRI of thoracic and lumbar spine do not indicate any acute abnormality Carotid ultrasound was unremarkable. Echocardiogram indicate ejection fraction 50-55% without any abnormalities Physical therapy ordered for 5 days a week Mild malnutrition, secondary to poor by mouth intake. Resolved. Albumin 2.8. Prealbumin 19. After review of weight trend, has been gaining weight. Continue Remeron. Dietary consulted who recommended ensure with breakfast lunch and there. May have muffin at bedtime, daily vitamin. Multiple traumatic injuries Patient laceration, subdural hemorrhage, ventricular hemorrhage, nasal fracture, C6 fracture, C1-C2 subluxation, C4 transverse process fracture, right rib fracture, L1 transverse process fracture, right pubic rami fracture Continue c-collar this time, however patient does not wear Follow-up cervical spine CT indicates no evidence of acute fracture. Postsurgical changes Specialist no longer following patient, patient will require outpatient follow-up if discharge Right breast abscess, Improved. Physical exam shows improvement. Ultrasound does show complex loculated collection measuring 2.4 x 1.7 x 1.8 cm. Representing breast abscess Status post Augmentin 500 mg twice daily for 10 days (end date 10/25/17). Finished Bactrim DS for 18 days Gen. surgery consulted who recommends no intervention at this time. Soft tissue ultrasound shows a improvement of the fluid collection. Outpatient mammogram performed today, 01/25/18. Benign findings, recommendations for follow-up breast ultrasound in 3 months. Hypothyroidism TSH 3.73 Free T4 0.57, free T3 1 0.47 Levothyroxine 25 g daily Monitor TSH every 6-8 weeks. TSH last checked 3.73 on January 21. Continue current treatment. Hypertension Amlodipine 10 mg daily and Norvasc DVT prevention Patient ambulating Sequential compression devices while in bed Records were reviewed. Awaiting case management for discharge planning, No change in current treatment plan. Discharge Planning Due to underlying psychiatric/cognition patient is unsafe discharge until arrangements made by case management. Problem Qualifiers (1) Hypertension: Qualified Codes: I10 - Essential (primary) hypertension Alyssa Means March 11, 2018 11:42
--- NOTE | 2018-03-11 20:26 | HHI.PYPN ---
Subjective Remarks The patient is seen today for psychiatric reevaluation. She is calm, cooperative and pleasant. She reports she feels now much better and she is ready to be discharge and reunion with her family in [place]. She reports good mood, denies depressive symptoms such as anhedonia, hopelessness, helplessness, problems with appetite or sleep. She denies SI/HI/VHA. The patient is fully oriented X3, able to verbalized good understanding and appreciation of current medical condition. She also verbalized agreement with plan of being Dc to SNF. Mental Status Examination Appearance: Appropriate Consciousness: Alert Orientation: x4, Person, Place Motor Activity: Normal gait Speech: Unremarkable Language: Adequate Fund of Knowledge: Adequate Attention and Concentration: Adequate Memory: Unremarkable Mood: Appropriate Affect: Appropriate Thought Process & Associations: Intact Thought Content: Appropriate Hallucination Type: None Delusion Type: None Suicidal Ideation: No Suicidal Plan: No Suicidal Intention: No Homicidal Ideation: No Homicidal Plan: No Homicidal Intention: No Insight: Adequate Judgment: Adequate Results Labs Date/Time Source Procedure Growth Status 09/02/17 10:35 Urine Clean Catch Urine Culture - Final Escherichia Coli Complete 09/24/17 11:18 Wound Breast Gram Stain - Final Complete 09/24/17 11:18 Wound Breast Wound Culture - Final RARE GROWTH NORMAL SKIN ALEE... 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 Her cognition is much improves since I saw her last time. Patient is found to have decision making capacity to participate in treatment and discharge plan a this moment. Continue current psychotropics. (2) Adjustment disorder with depressed mood ICD Codes: F43.21 - Adjustment disorder with depressed mood Assessment & Plan Estimated LOS: days Justification for Cont. Inpt. No admission indicated Nilton Nelson MD March 11, 2018 20:26
[2018-03-11] MEDS: MIRTAZAPINE 15 MG TAB PO SCH (22:42)
[2018-03-12] MEDS: LEVOTHYROXINE SODIUM 25 MCG TAB PO SCH (07:08)
[2018-03-12 07:30] VITALS: BP 144/90; PULSE 66; RESP 20; TEMP 96; O2SAT 95
[2018-03-12] MEDS: MULTIVITAMIN TAB PO SCH (08:38)
[2018-03-12] MEDS: FLUoxetine HCL 20 MG CAP PO SCH (08:38)
[2018-03-12] MEDS: LISINOPRIL 10 MG TAB PO SCH ×2 (08:39→21:15)
[2018-03-12] MEDS: QUEtiapine FUMARATE 100 MG TAB PO SCH ×2 (08:39→21:15)
[2018-03-12] MEDS: FLUTICASONE PROPIONATE 50 MCG/ACT 16 GM NASAL SPRAY EACH NARE SCH (08:39)
[2018-03-12] MEDS: VALPROIC ACID 250 MG CAP PO SCH ×2 (08:39→21:14)
--- NOTE | 2018-03-12 10:22 | HHI.PR ---
Subjective Remarks Follow-up unsafe discharge due to cognition. Patient seen and examined, lying in bed comfortably no apparent distress. No reports of any acute events overnight. Spoke with case management last evening, updated about patient's ability to make own decisions and capacity. Patient expresses concern about getting up north with her family, requesting a bus pass and transportation. Case management is assisting. Vital signs stable. Afebrile. Objective Vitals Vital Signs Date Time Temp Pulse Resp B/P (MAP) Pulse Ox O2 Delivery O2 Flow Rate FiO2 03/12/18 07:30 96.0 66 20 144/90 (108) 95 I/O 03/11/18 03/11/18 03/11/18 03/12/18 03/12/18 03/12/18 07:00 15:00 23:00 07:00 15:00 23:00 Intake Total 480 ml 1560 ml 500 ml Balance 480 ml 1560 ml 500 ml Intake Oral 480 ml 1560 ml 500 ml # Voids 2 4 # Bowel Movements 2 Imaging Last Impressions Chest X-Ray 02/11/18 0000 Signed Impressions: Service Date/Time: Sunday, February 11, 2018 13:13 - CONCLUSION: 1. Minimal atelectasis/scarring in the left base. Lungs are otherwise clear. 2. 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 Anterior fixation of lower cervical spine. Marcelino Cisneros MD Clavicle X-Ray 12/16/17 0000 Signed Impressions: Service Date/Time: December 19:51 - CONCLUSION: Distal clavicle is fractured but this appears nonacute. No acute fracture demonstrated. Jovany Hayes MD Thoracic Spine MRI 12/01/17 0000 Signed Impressions: Service Date/Time: Friday, December 01, 2017 15:10 - CONCLUSION: Negative for acute process. Vimal Taylor MD FACR Lumbar Spine MRI 12/01/17 0000 Signed Impressions: Service Date/Time: Friday, December 01, 2017 15:10 - CONCLUSION: Negative MRI of the lumbar spine. Vimal Taylor MD FACR Carotid Artery Ultrasound 11/30/17 0000 Signed Impressions: Service Date/Time: Thursday, November 30, 2017 14:34 - CONCLUSION: 1. Mild plaque with no hemodynamically significant stenosis. Vertebral artery flow antegrade. Fadi Carolina MD Cervical Spine MRI 11/28/17 0000 Signed Impressions: Service Date/Time: Tuesday, November 28, 2017 15:10 - CONCLUSION: 1. Multilevel posterior disc osteophyte complexes as described above. 2. Anterior fusion C6- 7. Dylon Haddad MD Knee X-Ray 11/02/17 0000 Signed Impressions: Service Date/Time: Thursday, November 02, 2017 18:51 - CONCLUSION: Intact right knee. Jovany Hayes MD Head CT 11/02/17 0000 Signed Impressions: Service Date/Time: Thursday, November 02, 2017 18:35 - CONCLUSION: 1. No bleed or other acute intracranial abnormality. 2. Previously seen intracranial hemorrhage has resolved. A small area of chronic encephalomalacia has developed of the right frontal lobe. 3. Chronic periventricular white matter changes are again noted. Jovany Hayes MD Breast Ultrasound 10/15/17 0000 Signed Impressions: Service Date/Time: Sunday, October 15, 2017 09:06 - CONCLUSION: Persistent subcutaneous collection at the 12:00 position of the right breast. It has slightly decreased in size since the study dated 09/23/2017 and could represent an infectious process. Consider followup to confirm resolution. Jovany Quezada MD Cervical Spine CT 09/02/17 0000 Signed Impressions: Service Date/Time: August 12:56 - CONCLUSION: Postsurgical changes from anterior cervical plate at C6-7. No evidence of compression deformity or spondylolisthesis. Arun Regan MD Pelvis X-Ray 06/30/17 0000 Signed Impressions: Service Date/Time: Friday, June 30, 2017 12:17 - CONCLUSION: No significant change has occurred. Carlos Capps MD Objective Remarks GENERAL: Well-developed, well-nourished patient in [facility]. SKIN: Warm and dry. No rash. HEAD: Normocephalic. Atraumatic. EYES: Pupils equal and round. No scleral icterus. No injection or drainage. ENT: No nasal bleeding or discharge. Mucous membranes pink and moist. NECK: Supple. Trachea midline. CARDIOVASCULAR: Regular rate and rhythm. S1, S2 noted. No murmur appreciated. RESPIRATORY: No accessory muscle use. Clear to auscultation. Breath sounds equal bilaterally. GASTROINTESTINAL: Abdomen soft, non-tender, nondistended. Normoactive bowel sounds x4. MUSCULOSKELETAL: No obvious deformities. Extremities without clubbing, cyanosis , or edema. NEUROLOGICAL: Awake and alert. No obvious cranial nerve deficits. Motor grossly within normal limits. 5/5 muscle strength in bilateral upper and lower extremities. Normal speech. PSYCHIATRIC: Appropriate mood and affect; insight and judgment normal. A/P Problem List: (1) Alcohol dependence in controlled environment ICD Code: F10.20 - Alcohol dependence, uncomplicated Status: Chronic (2) Facial injury ICD Code: S09.93XA - Unspecified injury of face, initial encounter Status: Acute (3) Fall ICD Code: W19.XXXA - Unspecified fall, initial encounter Status: Acute (4) Hypertension ICD Code: I10 - Essential (primary) hypertension Status: Acute (5) Pelvic fracture ICD Code: S32.9XXA - Fracture of unspecified parts of lumbosacral spine and pelvis, initial encounter for closed fracture Status: Acute (6) C1-C2 subluxation ICD Code: S13.120A - Subluxation of C1/C2 cervical vertebrae, initial encounter Status: Acute (7) C6 cervical fracture ICD Code: S12.500A - Unspecified displaced fracture of sixth cervical vertebra , initial encounter for closed fracture Status: Acute (8) Traumatic brain injury ICD Code: S06.9X9A - Unspecified intracranial injury with loss of consciousness of unspecified duration, initial encounter Status: Acute (9) Nasal fracture ICD Code: S02.2XXA - Fracture of nasal bones, initial encounter for closed fracture Status: Acute (10) Mild neurocognitive disorder ICD Code: G31.84 - Mild cognitive impairment, so stated Status: Acute (11) Intracranial bleed ICD Code: I62.9 - Nontraumatic intracranial hemorrhage, unspecified Status: Acute Assessment and Plan Inability to care for self, unsafe discharge due to cognition - PT and OT recommending supervision at home for safety. - Speech therapy following the patient intermittently for cognitive evaluations. 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 Mini mental state 28/30, recommended avoid antipsychotics and benzodiazepine. Recommending Depakote or carbamazepine. - Patient is medically stable for discharge, however due to underlying psychiatric/cognition patient is unsafe discharge until arrangements made by case management. Case management for discharge planning. - Neuropsychiatry evaluated the patient recommended patient may improve with treatment, however indicates avoid benzodiazepines and antipsychotics. - Continue Prozac 40 mg daily - Depakene 500 mg twice daily - Seroquel 100 mg twice daily - *Psychiatry indicated that the patient lacks capacity for signing AMA or to participate in discharge plan this is back in September. He is recommending that he would invite the ethics committee to the hospital to have a discussion about patient care - *Consulted case management for ethics committee review, awaiting response. - Psychiatry in to see patient today, deems patient capable of making her own decisions. Spoke to case management, is looking into discharge planning. If at all possible patient wants to go up north with her family. - Consult consulted neuropsychiatry. Recurrent falls. Resolved. Patient moved close to nursing station. Patient denies any neurological symptoms of weakness, paresthesia, loss of bowel or bladder control Orthostatic vitals do show drop in systolic blood pressure when standing. Improved after hydration. MRI of the neck. Multilevel degenerative changes. Mild degree of canal stenosis C5-C6, anterior fusion C6-C7 MRI of thoracic and lumbar spine do not indicate any acute abnormality Carotid ultrasound was unremarkable. Echocardiogram indicate ejection fraction 50-55% without any abnormalities Physical therapy ordered for 5 days a week Mild malnutrition, secondary to poor by mouth intake. Resolved. Albumin 2.8. Prealbumin 19. After review of weight trend, has been gaining weight. Continue Remeron. Dietary consulted who recommended ensure with breakfast lunch and there. May have muffin at bedtime, daily vitamin. Multiple traumatic injuries Patient laceration, subdural hemorrhage, ventricular hemorrhage, nasal fracture, C6 fracture, C1-C2 subluxation, C4 transverse process fracture, right rib fracture, L1 transverse process fracture, right pubic rami fracture Continue c-collar this time, however patient does not wear Follow-up cervical spine CT indicates no evidence of acute fracture. Postsurgical changes Specialist no longer following patient, patient will require outpatient follow-up if discharge Right breast abscess, Improved. Physical exam shows improvement. Ultrasound does show complex loculated collection measuring 2.4 x 1.7 x 1.8 cm. Representing breast abscess Status post Augmentin 500 mg twice daily for 10 days (end date 10/25/17). Finished Bactrim DS for 18 days Gen. surgery consulted who recommends no intervention at this time. Soft tissue ultrasound shows a improvement of the fluid collection. Outpatient mammogram performed today, 01/25/18. Benign findings, recommendations for follow-up breast ultrasound in 3 months. Hypothyroidism TSH 3.73 Free T4 0.57, free T3 1 0.47 Levothyroxine 25 g daily Monitor TSH every 6-8 weeks. TSH last checked 3.73 on January 21. Continue current treatment. Hypertension Amlodipine 10 mg daily and Norvasc DVT prevention Patient ambulating Sequential compression devices while in bed Records were reviewed. Awaiting case management for discharge planning, No change in current treatment plan. Discharge Planning Due to underlying psychiatric/cognition patient is unsafe discharge until arrangements made by case management. Problem Qualifiers (1) Hypertension: Qualified Codes: I10 - Essential (primary) hypertension Alyssa Means March 12, 2018 10:22
[2018-03-12 20:00] VITALS: BP 143/87; PULSE 75; RESP 20; TEMP 98.4; O2SAT 93
[2018-03-12] MEDS: MIRTAZAPINE 15 MG TAB PO SCH (21:15)
[2018-03-13] MEDS: LEVOTHYROXINE SODIUM 25 MCG TAB PO SCH (06:14)
[2018-03-13 07:50] VITALS: BP 138/92; PULSE 76; RESP 20; TEMP 98.1; O2SAT 93
[2018-03-13] MEDS: VALPROIC ACID 250 MG CAP PO SCH ×2 (08:53→21:15)
[2018-03-13] MEDS: QUEtiapine FUMARATE 100 MG TAB PO SCH ×2 (08:53→21:15)
[2018-03-13] MEDS: MULTIVITAMIN TAB PO SCH (08:53)
[2018-03-13] MEDS: FLUoxetine HCL 20 MG CAP PO SCH (08:53)
[2018-03-13] MEDS: FLUTICASONE PROPIONATE 50 MCG/ACT 16 GM NASAL SPRAY EACH NARE SCH (08:54)
[2018-03-13] MEDS: LISINOPRIL 10 MG TAB PO SCH ×2 (08:54→21:15)
--- NOTE | 2018-03-13 09:48 | HHI.PR ---
Subjective Remarks Follow-up unsafe discharge due to cognition. Patient seen and examined, lying in bed comfortably no apparent distress. Denies any acute events overnight. No change in clinical condition. Case management assisting with discharge. Objective Vitals Vital Signs Date Time Temp Pulse Resp B/P (MAP) Pulse Ox O2 Delivery O2 Flow Rate FiO2 03/12/18 20:00 98.4 75 20 143/87 (105) 93 I/O 03/12/18 03/12/18 03/12/18 03/13/18 03/13/18 03/13/18 07:00 15:00 23:00 07:00 15:00 23:00 Intake Total 500 ml 341 ml 480 ml Balance 500 ml 341 ml 480 ml Intake Oral 500 ml 341 ml 480 ml # Voids 3 3 # Bowel Movements 0 1 Imaging Last Impressions Chest X-Ray 02/11/18 0000 Signed Impressions: Service Date/Time: Sunday, February 11, 2018 13:13 - CONCLUSION: 1. Minimal atelectasis/scarring in the left base. Lungs are otherwise clear. 2. 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 Anterior fixation of lower cervical spine. Marcelino Cisneros MD Clavicle X-Ray 12/16/17 0000 Signed Impressions: Service Date/Time: December 19:51 - CONCLUSION: Distal clavicle is fractured but this appears nonacute. No acute fracture demonstrated. Jovany Hayes MD Thoracic Spine MRI 12/01/17 0000 Signed Impressions: Service Date/Time: Friday, December 01, 2017 15:10 - CONCLUSION: Negative for acute process. Vimal Taylor MD FACR Lumbar Spine MRI 12/01/17 0000 Signed Impressions: Service Date/Time: Friday, December 01, 2017 15:10 - CONCLUSION: Negative MRI of the lumbar spine. Vimal Taylor MD FACR Carotid Artery Ultrasound 11/30/17 0000 Signed Impressions: Service Date/Time: Thursday, November 30, 2017 14:34 - CONCLUSION: 1. Mild plaque with no hemodynamically significant stenosis. Vertebral artery flow antegrade. Fadi Carolina MD Cervical Spine MRI 11/28/17 0000 Signed Impressions: Service Date/Time: Tuesday, November 28, 2017 15:10 - CONCLUSION: 1. Multilevel posterior disc osteophyte complexes as described above. 2. Anterior fusion C6- 7. Dylon Haddad MD Knee X-Ray 11/02/17 0000 Signed Impressions: Service Date/Time: Thursday, November 02, 2017 18:51 - CONCLUSION: Intact right knee. Jovany Hayes MD Head CT 11/02/17 0000 Signed Impressions: Service Date/Time: Thursday, November 02, 2017 18:35 - CONCLUSION: 1. No bleed or other acute intracranial abnormality. 2. Previously seen intracranial hemorrhage has resolved. A small area of chronic encephalomalacia has developed of the right frontal lobe. 3. Chronic periventricular white matter changes are again noted. Jovany Hayes MD Breast Ultrasound 10/15/17 0000 Signed Impressions: Service Date/Time: Sunday, October 15, 2017 09:06 - CONCLUSION: Persistent subcutaneous collection at the 12:00 position of the right breast. It has slightly decreased in size since the study dated 09/23/2017 and could represent an infectious process. Consider followup to confirm resolution. Jovany Quezada MD Cervical Spine CT 09/02/17 0000 Signed Impressions: Service Date/Time: August 12:56 - CONCLUSION: Postsurgical changes from anterior cervical plate at C6-7. No evidence of compression deformity or spondylolisthesis. Arun Regan MD Pelvis X-Ray 06/30/17 0000 Signed Impressions: Service Date/Time: Friday, June 30, 2017 12:17 - CONCLUSION: No significant change has occurred. Carlos Capps MD Objective Remarks GENERAL: Well-developed, well-nourished patient in [facility]. SKIN: Warm and dry. No rash. HEAD: Normocephalic. Atraumatic. EYES: Pupils equal and round. No scleral icterus. No injection or drainage. ENT: No nasal bleeding or discharge. Mucous membranes pink and moist. NECK: Supple. Trachea midline. CARDIOVASCULAR: Regular rate and rhythm. S1, S2 noted. No murmur appreciated. RESPIRATORY: No accessory muscle use. Clear to auscultation. Breath sounds equal bilaterally. GASTROINTESTINAL: Abdomen soft, non-tender, nondistended. Normoactive bowel sounds x4. MUSCULOSKELETAL: No obvious deformities. Extremities without clubbing, cyanosis , or edema. NEUROLOGICAL: Awake and alert. No obvious cranial nerve deficits. Motor grossly within normal limits. 5/5 muscle strength in bilateral upper and lower extremities. Normal speech. PSYCHIATRIC: Appropriate mood and affect; insight and judgment normal. A/P Problem List: (1) Alcohol dependence in controlled environment ICD Code: F10.20 - Alcohol dependence, uncomplicated Status: Chronic (2) Facial injury ICD Code: S09.93XA - Unspecified injury of face, initial encounter Status: Acute (3) Fall ICD Code: W19.XXXA - Unspecified fall, initial encounter Status: Acute (4) Hypertension ICD Code: I10 - Essential (primary) hypertension Status: Acute (5) Pelvic fracture ICD Code: S32.9XXA - Fracture of unspecified parts of lumbosacral spine and pelvis, initial encounter for closed fracture Status: Acute (6) C1-C2 subluxation ICD Code: S13.120A - Subluxation of C1/C2 cervical vertebrae, initial encounter Status: Acute (7) C6 cervical fracture ICD Code: S12.500A - Unspecified displaced fracture of sixth cervical vertebra , initial encounter for closed fracture Status: Acute (8) Traumatic brain injury ICD Code: S06.9X9A - Unspecified intracranial injury with loss of consciousness of unspecified duration, initial encounter Status: Acute (9) Nasal fracture ICD Code: S02.2XXA - Fracture of nasal bones, initial encounter for closed fracture Status: Acute (10) Mild neurocognitive disorder ICD Code: G31.84 - Mild cognitive impairment, so stated Status: Acute (11) Intracranial bleed ICD Code: I62.9 - Nontraumatic intracranial hemorrhage, unspecified Status: Acute Assessment and Plan Inability to care for self, unsafe discharge due to cognition - PT and OT recommending supervision at home for safety. - Speech therapy following the patient intermittently for cognitive evaluations. 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 Mini mental state 28/30, recommended avoid antipsychotics and benzodiazepine. Recommending Depakote or carbamazepine. - Patient is medically stable for discharge, however due to underlying psychiatric/cognition patient is unsafe discharge until arrangements made by case management. Case management for discharge planning. - Neuropsychiatry evaluated the patient recommended patient may improve with treatment, however indicates avoid benzodiazepines and antipsychotics. - Continue Prozac 40 mg daily - Depakene 500 mg twice daily - Seroquel 100 mg twice daily - *Psychiatry indicated that the patient lacks capacity for signing AMA or to participate in discharge plan this is back in September. He is recommending that he would invite the ethics committee to the hospital to have a discussion about patient care - *Consulted case management for ethics committee review, awaiting response. - Psychiatry in to see patient today, deems patient capable of making her own decisions. Spoke to case management, is looking into discharge planning. If at all possible patient [place] to go [place] with [place]. - Consult consulted neuropsychiatry. Recurrent falls. Resolved. Patient moved close to nursing station. Patient denies any neurological symptoms of weakness, paresthesia, loss of bowel or bladder control Orthostatic vitals do show drop in systolic blood pressure when standing. Improved after hydration. MRI of the neck. Multilevel degenerative changes. Mild degree of canal stenosis C5-C6, anterior fusion C6-C7 MRI of thoracic and lumbar spine do not indicate any acute abnormality Carotid ultrasound was unremarkable. Echocardiogram indicate ejection fraction 50-55% without any abnormalities Physical therapy ordered for 5 days a week Mild malnutrition, secondary to poor by mouth intake. Resolved. Albumin 2.8. Prealbumin 19. After review of weight trend, has been gaining weight. Continue Remeron. Dietary consulted who recommended ensure with breakfast lunch and there. May have muffin at bedtime, daily vitamin. Multiple traumatic injuries Patient laceration, subdural hemorrhage, ventricular hemorrhage, nasal fracture, C6 fracture, C1-C2 subluxation, C4 transverse process fracture, right rib fracture, L1 transverse process fracture, right pubic rami fracture Continue c-collar this time, however patient does not wear Follow-up cervical spine CT 1026/ indicates no evidence of acute fracture. Postsurgical changes Specialist no longer following patient, patient will require outpatient follow-up if discharge Right breast abscess, Improved. Physical exam shows improvement. Ultrasound does show complex loculated collection measuring 2.4 x 1.7 x 1.8 cm. Representing breast abscess Status post Augmentin 500 mg twice daily for 10 days (end date 10/25/17). Finished Bactrim DS for 18 days Gen. surgery consulted who recommends no intervention at this time. Soft tissue ultrasound shows a improvement of the fluid collection. Outpatient mammogram performed today, 01/25/18. Benign findings, recommendations for follow-up breast ultrasound in 3 months. Hypothyroidism TSH 3.73 Free T4 0.57, free T3 1 0.47 Levothyroxine 25 g daily Monitor TSH every 6-8 weeks. TSH last checked 3.73 on January 21. Continue current treatment. Hypertension Amlodipine 10 mg daily and Norvasc DVT prevention Patient ambulating Sequential compression devices while in bed Records were reviewed. Awaiting case management for discharge planning, No change in current treatment plan. Discharge Planning Due to underlying psychiatric/cognition patient is unsafe discharge until arrangements made by case management. Problem Qualifiers (1) Hypertension: Qualified Codes: I10 - Essential (primary) hypertension Alyssa Means March 13, 2018 09:48
[2018-03-13 20:00] VITALS: BP 130/79; PULSE 75; RESP 20; TEMP 99; O2SAT 94
[2018-03-13] MEDS: MIRTAZAPINE 15 MG TAB PO SCH (21:15)
[2018-03-14] MEDS: LEVOTHYROXINE SODIUM 25 MCG TAB PO SCH (05:47)
[2018-03-14] MEDS: MULTIVITAMIN TAB PO SCH (08:25)
[2018-03-14] MEDS: VALPROIC ACID 250 MG CAP PO SCH ×2 (08:25→20:34)
[2018-03-14] MEDS: FLUoxetine HCL 20 MG CAP PO SCH (08:25)
[2018-03-14] MEDS: FLUTICASONE PROPIONATE 50 MCG/ACT 16 GM NASAL SPRAY EACH NARE SCH (08:25)
[2018-03-14] MEDS: QUEtiapine FUMARATE 100 MG TAB PO SCH ×2 (08:25→20:34)
[2018-03-14] MEDS: LISINOPRIL 10 MG TAB PO SCH ×2 (08:25→20:34)
[2018-03-14 08:28] VITALS: BP 143/80; PULSE 61; RESP 16; TEMP 96.2; O2SAT 93
--- NOTE | 2018-03-14 09:38 | HHI.PR ---
Subjective Remarks Follow up arrangements for placement. Patient seen and examined, lying in bed comfortably no apparent distress. Patient is pleasant and alert. No acute events overnight. No changes in clinical condition. Vital signs are stable. Afebrile. Tolerating p.o. intake well. Denies any abdominal pain, nausea, vomiting, diarrhea, chest pain, shortness of breath, headache, dysuria. solar project manager assisting with placement. Patient is competent per psych, des[place]. Arrangements being made. Objective Vitals Vital Signs Date Time Temp Pulse Resp B/P (MAP) Pulse Ox O2 Delivery O2 Flow Rate FiO2 03/14/18 08:28 96.2 61 16 143/80 (101) 93 03/13/18 20:00 99.0 75 20 130/79 (96) 94 I/O 03/13/18 03/13/18 03/13/18 03/14/18 03/14/18 03/14/18 07:00 15:00 23:00 07:00 15:00 23:00 Intake Total 480 ml 563 ml 480 ml Balance 480 ml 563 ml 480 ml Intake Oral 480 ml 563 ml 480 ml # Voids 3 3 4 # Bowel Movements 1 1 0 Imaging Last Impressions Chest X-Ray 02/11/18 0000 Signed Impressions: Service Date/Time: Sunday, February 11, 2018 13:13 - CONCLUSION: 1. Minimal atelectasis/scarring in the left base. Lungs are otherwise clear. 2. 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 Anterior fixation of lower cervical spine. Marcelino Cisneros MD Clavicle X-Ray 12/16/17 0000 Signed Impressions: Service Date/Time: December 19:51 - CONCLUSION: Distal clavicle is fractured but this appears nonacute. No acute fracture demonstrated. Jovany Hayes MD Thoracic Spine MRI 12/01/17 0000 Signed Impressions: Service Date/Time: Friday, December 01, 2017 15:10 - CONCLUSION: Negative for acute process. Vimal Taylor MD FACR Lumbar Spine MRI 12/01/17 0000 Signed Impressions: Service Date/Time: Friday, December 01, 2017 15:10 - CONCLUSION: Negative MRI of the lumbar spine. Vimal Taylor MD FACR Carotid Artery Ultrasound 11/30/17 0000 Signed Impressions: Service Date/Time: Thursday, November 30, 2017 14:34 - CONCLUSION: 1. Mild plaque with no hemodynamically significant stenosis. Vertebral artery flow antegrade. Fadi Carolina MD Cervical Spine MRI 11/28/17 0000 Signed Impressions: Service Date/Time: Tuesday, November 28, 2017 15:10 - CONCLUSION: 1. Multilevel posterior disc osteophyte complexes as described above. 2. Anterior fusion C6- 7. Dylon Haddad MD Knee X-Ray 11/02/17 0000 Signed Impressions: Service Date/Time: Thursday, November 02, 2017 18:51 - CONCLUSION: Intact right knee. Jovany Hayes MD Head CT 11/02/17 0000 Signed Impressions: Service Date/Time: Thursday, November 02, 2017 18:35 - CONCLUSION: 1. No bleed or other acute intracranial abnormality. 2. Previously seen intracranial hemorrhage has resolved. A small area of chronic encephalomalacia has developed of the right frontal lobe. 3. Chronic periventricular white matter changes are again noted. Jovany Hayes MD Breast Ultrasound 10/15/17 0000 Signed Impressions: Service Date/Time: Sunday, October 15, 2017 09:06 - CONCLUSION: Persistent subcutaneous collection at the 12:00 position of the right breast. It has slightly decreased in size since the study dated 09/23/2017 and could represent an infectious process. Consider followup to confirm resolution. Jovany Quezada MD Cervical Spine CT 09/02/17 0000 Signed Impressions: Service Date/Time: August 12:56 - CONCLUSION: Postsurgical changes from anterior cervical plate at C6-7. No evidence of compression deformity or spondylolisthesis. Arun Regan MD Pelvis X-Ray 06/30/17 0000 Signed Impressions: Service Date/Time: Friday, June 30, 2017 12:17 - CONCLUSION: No significant change has occurred. Carlos Capps MD Objective Remarks GENERAL: Well-developed, well-nourished patient in NAD. SKIN: Warm and dry. No rash. HEAD: Normocephalic. Atraumatic. EYES: Pupils equal and round. No scleral icterus. No injection or drainage. ENT: No nasal bleeding or discharge. Mucous membranes pink and moist. NECK: Supple. Trachea midline. CARDIOVASCULAR: Regular rate and rhythm. S1, S2 noted. No murmur appreciated. RESPIRATORY: No accessory muscle use. Clear to auscultation. Breath sounds equal bilaterally. GASTROINTESTINAL: Abdomen soft, non-tender, nondistended. Normoactive bowel sounds x4. MUSCULOSKELETAL: No obvious deformities. Extremities without clubbing, cyanosis , or edema. NEUROLOGICAL: Awake and alert. No obvious cranial nerve deficits. Motor grossly within normal limits. 5/5 muscle strength in bilateral upper and lower extremities. Normal speech. PSYCHIATRIC: Appropriate mood and affect; insight and judgment normal. A/P Problem List: (1) Alcohol dependence in controlled environment ICD Code: F10.20 - Alcohol dependence, uncomplicated Status: Chronic (2) Facial injury ICD Code: S09.93XA - Unspecified injury of face, initial encounter Status: Acute (3) Fall ICD Code: W19.XXXA - Unspecified fall, initial encounter Status: Acute (4) Hypertension ICD Code: I10 - Essential (primary) hypertension Status: Acute (5) Pelvic fracture ICD Code: S32.9XXA - Fracture of unspecified parts of lumbosacral spine and pelvis, initial encounter for closed fracture Status: Acute (6) C1-C2 subluxation ICD Code: S13.120A - Subluxation of C1/C2 cervical vertebrae, initial encounter Status: Acute (7) C6 cervical fracture ICD Code: S12.500A - Unspecified displaced fracture of sixth cervical vertebra , initial encounter for closed fracture Status: Acute (8) Traumatic brain injury ICD Code: S06.9X9A - Unspecified intracranial injury with loss of consciousness of unspecified duration, initial encounter Status: Acute (9) Nasal fracture ICD Code: S02.2XXA - Fracture of nasal bones, initial encounter for closed fracture Status: Acute (10) Mild neurocognitive disorder ICD Code: G31.84 - Mild cognitive impairment, so stated Status: Acute (11) Intracranial bleed ICD Code: I62.9 - Nontraumatic intracranial hemorrhage, unspecified Status: Acute Assessment and Plan Inability to care for self, unsafe discharge due to cognition. Resolved. Arrangements for placement being made. Case management assisting. - PT evaluating patient, requires supervision at home for safety. Recommending assisted living facility. With need for wheeled walker. - OT recommending supervision at home for activities of daily living and functional mobility. Recommends [facility] environment. - Continue Prozac 40 mg daily, Depakene 500 mg twice daily, Seroquel 100 mg twice daily. - *Psychiatry indicated that the patient lacks capacity for signing AMA or to participate in discharge plan this is back in September. Patient is found to have decision making capacity to participate in treatment and discharge plan. - Spoke to case management, is looking into discharge planning. If at all possible patient [place] go [place]. - Patient is medically stable for discharge. Recurrent falls. Resolved. Patient moved close to nursing station. Patient denies any neurological symptoms of weakness, paresthesia, loss of bowel or bladder control Orthostatic vitals do show drop in systolic blood pressure when standing. Improved after hydration. MRI of the neck. Multilevel degenerative changes. Mild degree of canal stenosis C5-C6, anterior fusion C6-C7 MRI of thoracic and lumbar spine do not indicate any acute abnormality Carotid ultrasound was unremarkable. Echocardiogram indicate ejection fraction 50-55% without any abnormalities Physical therapy ordered for 5 days a week. Multiple traumatic injuries Patient laceration, subdural hemorrhage, ventricular hemorrhage, nasal fracture, C6 fracture, C1-C2 subluxation, C4 transverse process fracture, right rib fracture, L1 transverse process fracture, right pubic rami fracture Continue c-collar this time, however patient does not wear Follow-up cervical spine CT 102/ indicates no evidence of acute fracture. Postsurgical changes. Specialist no longer following patient, patient will require outpatient follow-up if discharge Right breast abscess, Improved. Physical exam shows resolution. Ultrasound does show complex loculated collection measuring 2.4 x 1.7 x 1.8 cm. Representing breast abscess Status post Augmentin and Bactrim in 10/2017. Gen. surgery consulted at one point who recommends no intervention. Soft tissue ultrasound shows a improvement of the fluid collection. Outpatient mammogram performed, 01/25/18. Benign findings, recommendations for follow-up breast ultrasound in 3 months. Hypothyroidism TSH 3.73 Free T4 0.57, free T3 1 0.47 Levothyroxine 25 g daily. Monitor TSH every 6-8 weeks. TSH last checked 3.73 on January 21. Will check TSH for thyroid management. Follow. Hypertension Amlodipine and Lisinopril. Monitor BP trends. DVT prevention Patient ambulating Sequential compression devices while in bed Records were reviewed. Awaiting case management for discharge planning. Discharge Planning CM assisting with arrangements for DC. Patient is competent to make own decisions per psych. Arrangements underway. Problem Qualifiers (1) Hypertension: Qualified Codes: I10 - Essential (primary) hypertension Alyssa Means March 14, 2018 09:38
[2018-03-14 19:15] VITALS: BP 140/90; PULSE 77; RESP 15; TEMP 97.6; O2SAT 95
[2018-03-14] MEDS: MIRTAZAPINE 15 MG TAB PO SCH (20:34)
[2018-03-15] MEDS: LEVOTHYROXINE SODIUM 25 MCG TAB PO SCH (05:31)
[2018-03-15 08:00] VITALS: BP 110/69; PULSE 66; RESP 16; TEMP 96.9; O2SAT 94
--- NOTE | 2018-03-15 08:21 | HHI.PR ---
Subjective Remarks Patient seen and examined today for follow-up on unsafe discharge due to cognition. Patient is resting comfortably in bed. She is eating well. Normal bowel movements. Patient denies any new complaints. Objective Vitals Vital Signs Date Time Temp Pulse Resp B/P (MAP) Pulse Ox O2 Delivery O2 Flow Rate FiO2 03/14/18 19:15 97.6 77 15 140/90 (107) 95 03/14/18 08:28 96.2 61 16 143/80 (101) 93 I/O 03/14/18 03/14/18 03/14/18 03/15/18 03/15/18 03/15/18 07:00 15:00 23:00 07:00 15:00 23:00 Intake Total 480 ml 750 ml 360 ml Balance 480 ml 750 ml 360 ml Intake Oral 480 ml 750 ml 360 ml # Voids 4 4 # Bowel Movements 0 3 Objective Remarks GENERAL: Well-developed, well-nourished, in no acute distress. alert and orientation waxes and wanes daily HEENT: Head is normocephalic without any lesions or masses noted. Facial features are symmetric. Eyes: Extraocular muscles are intact. Conjunctivae were clear. CARDIAC: Regular rhythm, regular rate. S1/S2 are heard. No murmurs gallops or rubs. LUNGS: Clear to auscultation bilaterally. No wheeze, rhonchi or rales. No use of accessory muscles on inspiration or expiration. EXTREMITIES: No edema, pulses are equal bilaterally. No cyanosis or clubbing NEUROLOGY: Mood and affect appear appropriate. Cranial nerves II through XII grossly intact moving all extremities, speech is clear Urinary Catheter: No Vascular Central Line Catheter: No A/P Assessment and Plan Inability to care for self, unsafe discharge due to cognition, improving Initially he was indicated patient cannot walk, patient is walking at this time, PT and OT recommending supervision at home for safety Speech therapy following the patient intermittently for cognitive evaluations. 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 MIni mental state 28/30, recommended avoid antipsychotics and benzodiazepine. Recommended Depakote or carbamazepine Patient is medically stable for discharge, however due to underlying psychiatric/cognition patient is unsafe discharge until arrangements made by case management Case management for discharge planning Neuropsychiatry evaluated the patient recommended patient may improve with treatment, however indicates avoid benzodiazepines and antipsychotics Continue Prozac 40 mg daily Depakene 500 mg twice daily Seroquel 100 mg twice daily Patient no longer requiring sitter. Patient is functioning and ambulating on her own. Patient without any attempts of elopement. Reconsulted speech therapy for cognition evaluation, they reevaluated the patient patient remains MOCA 2330, no change Reconsulted occupational therapy who indicates the patient still needs to be in a supervised area such as [facility] Reconsulted psychiatry, who indicated patient has capacity to participate in discharge planning Mild malnutrition, secondary to poor by mouth intake Albumin 2.8 Prealbumin 19 Continue Remeron Dietary consulted who recommended ensure with breakfast lunch and there. May have muffin at bedtime, daily vitamin Recurrent falls, resolved Patient moved close to nursing station Patient does state that she is having neck pain Patient denies any neurological symptoms of weakness, paresthesia, loss of bowel or bladder control Orthostatic vitals do show drop in systolic blood pressure when standing. Improved after hydration Status post 2 L normal saline and continue monitor orthostatic vitals MRI of the neck. Multilevel degenerative changes. Mild degree of canal stenosis C5-C6, anterior fusion C6-C7 MRI of thoracic and lumbar spine do not indicate any acute abnormality Clavicle x-ray shows nonacute distal clavicle fracture. Carotid ultrasound was unremarkable Echocardiogram indicate ejection fraction 50-55% without any abnormalities Physical therapy ordered for 5 days a week Multiple traumatic injuries, Patient laceration, subdural hemorrhage, ventricular hemorrhage, nasal fracture, C6 fracture, C1-C2 subluxation, C4 transverse process fracture, right rib fracture, L1 transverse process fracture, right pubic rami fracture Continue c-collar this time, however patient does not wear Follow-up cervical spine CT 1026/17 indicates no evidence of acute fracture. Postsurgical changes Specialist no longer following patient, patient will require outpatient follow-up if discharge Right breast abscess, improved Physical exam patient does have a erythematous area with drainage Ultrasound does show complex loculated collection measuring 2.4 x 1.7 x 1.8 cm. Representing breast abscess Status post Augmentin 500 mg twice daily for 10 days and Bactrim DS for 18 days Gen. surgery consulted who recommends no intervention at this time, Soft tissue ultrasound shows a improvement of the fluid collection. Outpatient mammogram performed 01/25/18. Benign findings, recommendations for follow-up breast ultrasound in 3 months. Hypothyroidism TSH 5.11, follow-up TSH 3.73 Free T4 0.57, free T3 1 0.47 Levothyroxine 25 g daily Monitor TSH every 6-8 weeks Hypertension, Continue monitor blood pressure Amlodipine 10 mg daily Lisinopril 10 mg twice daily DVT prevention Patient ambulating Sequential compression devices while in bed Discharge Planning Case management for discharge planning, Conrado Mariee March 15, 2018 08:21
[2018-03-15] MEDS: QUEtiapine FUMARATE 100 MG TAB PO SCH (08:41)
[2018-03-15] MEDS: FLUoxetine HCL 20 MG CAP PO SCH (08:41)
[2018-03-15] MEDS: MULTIVITAMIN TAB PO SCH (08:41)
[2018-03-15] MEDS: VALPROIC ACID 250 MG CAP PO SCH (08:41)
[2018-03-15] MEDS: LISINOPRIL 10 MG TAB PO SCH (08:42)
[2018-03-15] MEDS ORDERED: LEVO25TA4 PO (13:45)
[2018-03-15] MEDS ORDERED: VITA500012 PO (13:45)
[2018-03-15] MEDS ORDERED: QUET1TAB8 PO (13:45)
[2018-03-15] MEDS ORDERED: VALP250 PO (13:45)
[2018-03-15] MEDS ORDERED: LISI10TA3 PO (13:45)
[2018-03-15] MEDS ORDERED: MIRTA15 PO (13:45)
[2018-03-15] MEDS ORDERED: AMLO10 PO (13:45)
[2018-03-15] MEDS ORDERED: FLUO20CA12 PO (13:45)
--- NOTE | 2018-03-15 13:46 | HHI.DCPOC ---
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 (2) C1-C2 subluxation (3) C6 cervical fracture (4) Traumatic brain injury (5) Hypertension (6) Adjustment disorder with depressed mood Goals to Promote Your Health * To prevent worsening of your condition and complications * To maintain your health at the optimal level Directions to Meet Your Goals Take your medications as prescribed Follow your dietary instruction Follow activity as directed Keep your appointments as scheduled Take your immunizations and boosters as scheduled If your symptoms worsen call your PCP, if no PCP go to Urgent Care Center or Emergency Room Smoking is Dangerous to Your Health. Avoid second hand smoke Call the 24-hour hour crisis hotline for domestic abuse at Conrado Mariee March 15, 2018 13:46
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
== END 2018-03-15 17:22 | DRG 92 ==
LOC: NEPC 11:55 → NEDA 16:35 → OBSVTOIN 16:59 → HOCB 20:33 → PH5A 06-25 15:48 → PH3A 07-15 17:10 → PH3B 12-12 11:23 → PH3A 01-16 11:02 → PH3B 01-16 11:02 → PH3A 01-16 20:28 → PH3B 01-30 05:50 → PH3A 02-01 08:27 → PH3B 02-13 20:30
PROVIDERS: ADMIT Hospitalist; ATTEND Hospitalist
PROC: 0HJT3ZZ Inspection of Right Breast, Percutaneous Approach (ICD-10-PCS; principal; 2017-10-09)
DX: S06.5X9S Traumatic subdural hemorrhage with loss of consciousness of unspecified duration, sequela (principal); F02.81 Dementia in other diseases classified elsewhere, unspecified severity, with behavioral disturbance; F01.51 Vascular dementia, unspecified severity, with behavioral disturbance; F10.27 Alcohol dependence with alcohol-induced persisting dementia; E44.0 Moderate protein-calorie malnutrition; I95.9 Hypotension, unspecified; I07.1 Rheumatic tricuspid insufficiency; J98.11 Atelectasis; N39.0 Urinary tract infection, site not specified; M48.02 Spinal stenosis, cervical region; D63.8 Anemia in other chronic diseases classified elsewhere; E03.9 Hypothyroidism, unspecified; R26.2 Difficulty in walking, not elsewhere classified; I10 Essential (primary) hypertension; F17.210 Nicotine dependence, cigarettes, uncomplicated; R73.9 Hyperglycemia, unspecified; N61.1 Abscess of the breast and nipple; F41.9 Anxiety disorder, unspecified; F43.21 Adjustment disorder with depressed mood; N28.9 Disorder of kidney and ureter, unspecified; R09.02 Hypoxemia; R00.1 Bradycardia, unspecified; J06.9 Acute upper respiratory infection, unspecified; M25.512 Pain in left shoulder; M54.2 Cervicalgia; W19.XXXA Unspecified fall, initial encounter; Y92.230 Patient room in hospital as the place of occurrence of the external cause; Z91.19 Patient's noncompliance with other medical treatment and regimen; V81.6 Occupant of railway train or railway vehicle injured by fall from railway train or railway vehicle; Z59.0 Homelessness; S32.591D Other specified fracture of right pubis, subsequent encounter for fracture with routine healing; S02.2XXD Fracture of nasal bones, subsequent encounter for fracture with routine healing; S22.31XD Fracture of one rib, right side, subsequent encounter for fracture with routine healing; S32.019D Unspecified fracture of first lumbar vertebra, subsequent encounter for fracture with routine healing
CPT/HCPCS: 70450; 71010; 71045; 72125; 72146; 72148; 72156; 72170; 73000; 73564; 76642; 80048; 80053; 81001; 82040; 82140; 82607; 82652; 82948; 83735; 84100; 84134; 84155; 84439; 84443; 84481; 85025; 86403; 87070; 87077; 87086; 87186; 87205; 93306; 93880; 94150; 99285; A9579; J1630; J7030; Q0163